=== PATIENT | female | born 1955 | race Caucasian/White ===

== ENCOUNTER 2021-01-28 13:59 | Emergency (ER) | payer MEDICARE, SELFPAY ==
[2021-01-28 14:05] VITALS: BP 117/80; PULSE 58; RESP 16; TEMP 36.4; O2SAT 97; BMI 34.2
--- NOTE | 2021-01-28 14:19 | CT_ITS ---
STUDY: CT BRAIN WITHOUT CONTRAST REASON FOR EXAM: Female, 65 years old. Injury/Pain RADIATION DOSAGE (If Supplied By Facility): CTDIvol = ( 44.99 ) mGy, DLP = ( 796.11 ) mGycm TECHNIQUE: Transaxial CT imaging of the brain was performed without administration of intravenous contrast material. Individualized dose optimization techniques were used for this CT. COMPARISON: No relevant priors. FINDINGS: Normal soft tissue structures. No destructive bony process. Normal size ventricles and extra-axial spaces for the patient''s age. Normal white matter tracts of the cerebral hemispheres. Normal basal ganglia and thalami. Normal brainstem. Normal cerebellum. There is no intracranial hemorrhage. There are no findings of an acute ischemic infarction. Normal visualized paranasal sinuses. CT/Brain/Head without Contrast IMPRESSION: No acute intracranial hemorrhage or mass effect. Electronically Signed: Shakir Cristina MD (Brooks) at 15:17 EDT , Service support ,
--- NOTE | 2021-01-28 14:20 | RAD_ITS ---
STUDY: X-RAY - RIGHT KNEE REASON FOR EXAM: Female, 65 years old. Right knee pain after falling this morning TECHNIQUE: 4 view(s) of the knee. COMPARISON: None. FINDINGS: Normal visualized distal femur. Normal visualized proximal tibia and fibula. Normal proximal tibiofibular articulation. Normal medial femorotibial compartment. Normal lateral femorotibial compartment. Normal patellofemoral articulation. There is no demonstrated joint effusion. There are atherosclerotic calcifications. RAD/Knee 4 or More Views IMPRESSION: No fracture or malalignment. Small joint effusion. Electronically Signed: Shakir Cristina MD (Bro[facility]) at 14:54 EDT , Service support ,
--- NOTE | 2021-01-28 14:21 | EDS_ITS ---
HPI HPI - Fall History of Present Illness Chief Complaint: Fall Informant: patient Occured/Mechanism Occurred: Today Mechanism/Context: Yes slip Fall down steps #: 5 Pain/Injury Location: Right knee, right ankle Pain Location: neck Quality of Pain: Sharp Worsened by: Weightbearing, ambulation Relieved by: Rest Associated Symptoms Associated Symptoms: Negative for Parasthesias, Weakness, Inability to ambulate and Loss of consciousness Narrative Narrative: Patient presents after a fall that occurred today. Patient states she slipped on approximately 5 carpeted steps. Patient did hit her head. Patient denies any loss of consciousness. Patient states her worst pain is in her right knee and right ankle. Patient does admit to some mild neck pain. Patient describes her pain as sharp. Patient states pain is worse with standing and weightbearing. Patient states it is better with rest. Patient denies any paresthesias or weakness. Patient denies any other injuries. [facility] Medical History Diabetes mellitus HTN (hypertension) Myocardial infarct Home Medications clopidogrel 75 mg PO DAILY 01/28/21 [History Last Taken Unknown] lorazepam [Ativan] 1 mg PO QHS 01/28/21 [History Last Taken Unknown] magnesium gluconate 250 mg PO DAILY 01/28/21 [History Last Taken Unknown] metformin 500 mg PO BID 01/28/21 [History Last Taken Unknown] ranolazine 1,000 mg PO BID 01/28/21 [History Last Taken Unknown] Allergy/AdvReac Type Severity Reaction Status Date / Time aspirin Allergy Rash Verified 01/28/21 14:05 canagliflozin [From Invokana] Allergy Anaphylaxis Verified 01/28/21 14:05 niacin Allergy Rash Verified 01/28/21 14:05 Penicillins [PCN] Allergy Hives Verified 01/28/21 14:05 Sulfa (Sulfonamide Allergy Hives Verified 01/28/21 14:05 Antibiotics) acetaminophen AdvReac Upset Verified 01/28/21 14:05 [From Darvocet-N] Stomach erythromycin base AdvReac Other Verified 01/28/21 14:05 [From Staticin] ethyl alcohol [From Staticin] AdvReac Other Verified 01/28/21 14:05 gemfibrozil [From Lopid] AdvReac Other Verified 01/28/21 14:05 ibuprofen AdvReac Upset Verified 01/28/21 14:05 Stomach levofloxacin [From Levaquin] AdvReac Upset Verified 01/28/21 14:05 Stomach propoxyphene AdvReac Upset Verified 01/28/21 14:05 [From Darvocet-N] Stomach tramadol AdvReac Other Verified 01/28/21 14:05 Surgical History Hx of CABG Stented coronary artery Social History Smoking Status: Former smoker ROS ROS ED Constitutional Constitutional ED: Denies chills or fever(s) Eyes Eyes: Denies blurry vision or change in vision ENT ENT ED: Denies rhinorrhea or sore throat Cardiovascular Cardiovascular: Denies chest pain or palpitations Respiratory/Chest Respiratory/Chest: Denies cough or dyspnea Gastrointestinal Gastrointestinal: Denies nausea or vomiting Genitourinary Genitourinary ED: Denies dysuria or hematuria Musculoskeletal Musculoskeletal: Reports neck pain; Denies back pain Integumentary Reports rash; Denies abscess Neurologic Neurologic: Denies headache(s) or weakness Allergic/Immunologic Allergic/Immunologic ED: Denies mouth swelling or urticaria EXAM Physical Exam Const Vital Signs: 01/28/21 14:05 01/28/21 14:15 Temperature 97.5 F L Temperature Source Temporal Pulse Rate 58 L Respiratory Rate 16 Respiratory Effort Normal Non-Labored Respiratory Depth Normal Respiratory Pattern Normal Blood Pressure 117/80 Blood Pressure Mean 92 Pulse Ox 97 Oxygen Delivery Method Room Air Positive well nourished, well developed and obese General Appearance ED: well developed Nutritional Appearance: obese HEENT Reports normocephalic atraumatic Neck full ROM Resp normal respiratory effort and clear to auscultation bilaterally Cardio regular rate and regular rhythm GI non-tender Palpation: soft Extremity Extremity Narrative: There is tenderness over the right knee and right ankle. There is no bony crepitance or step-off. There is no deformity noted. Range of motion was limited in all motions of the right knee and right ankle secondary to pain. Strength is 5/5 in the lower extremities bilaterally. There are no sen chico deficits noted. Pedal pulses are equal bilaterally. Neuro oriented x3, CN's II-XII intact bilaterally, moves all extremities, no focal motor deficits and no sensory deficits noted Sensorium / Orientation: alert Psych mental status grossly normal MDM MDM MDM Narrative Medical decision making narrative: CT scan of the brain was obtained. There is no acute intracranial abnormality. This was interpreted by the radiologist and reviewed by myself. X-rays of the right ankle were obtained. There are 3 views. On my interpretation, there is no acute fracture. There is no dislocation. There is no soft tissue swelling. Radiologist also interpreted the x-rays and agrees. X-rays of the right knee were obtained. There are 4 views. On my interpretation, there is no acute fracture. There is no dislocation. There is a small joint effusion. Radiologist also interpreted the x-rays and agrees. Patient was advised of her findings. Patient was instructed to continue using ice to the areas. Patient was instructed to take Tylenol or ibuprofen as needed for pain. Patient was instructed to use a walker to help with ambulation. Patient states she has one at home. Patient was instructed to follow-up with her primary care physician in 5 to 7 days. Patient understood and was agreeable with the plan. All questions were answered. Radiography Diagnostic Testing: Radiology Impression Brain CT 01/28/21 14:19 IMPRESSION: No acute intracranial hemorrhage or mass effect. Electronically Signed: Shakir Cristina MD ([place]) at 15:17 EDT , Service support , Knee X-Ray 01/28/21 14:20 IMPRESSION: No fracture or malalignment. Small joint effusion. Electronically Signed: Shakir Cristina MD ([place]) at 14:54 EDT , Service support , Ankle X-Ray 01/28/21 14:31 IMPRESSION: No fracture or malalignment. Electronically Signed: Shakir Cristina MD ([place]) at 14:53 EDT , Service support , Discharge Plan Triage Chief Complaint: Fall ED Provider: Dima Henriquez Dx/Rx/DC Orders Clinical Impression: Contusion of right knee, initial encounter, Right ankle sprain, Closed head injury Instructions: ED Soft Tissue Contusion, ED Ankle Sprain (Adult), ED Head Injury (Adult) Prescriptions: No Action clopidogrel 75 mg tablet 75 mg PO DAILY RF: 0 magnesium gluconate 12.5 mg magne- sium (250 mg) Tablet 250 mg PO DAILY RF: 0 lorazepam [Ativan] 1 mg Tablet 1 mg PO QHS RF: 0 metformin 500 mg Tablet,Er Mitali.Retention 24 Hr 500 mg PO BID RF: 0 ranolazine 1,000 mg Tablet Extended Release 12 Hr 1,000 mg PO BID RF: 0 Primary Care Provider: Carlos Clarke Referrals: Carlos Clarke MD [Primary Care Provider] - 5-7 Days Disposition Disposition: Home, Self Care
--- NOTE | 2021-01-28 14:31 | RAD_ITS ---
STUDY: X-RAY - RIGHT ANKLE REASON FOR EXAM: Female, 65 years old. Right ankle pain after falling this morning TECHNIQUE: 3 view(s) of the ankle. COMPARISON: None. FINDINGS: Normal visualized distal tibia and fibula. Normal medial and lateral malleoli. Normal tibiotalar articulation and ankle mortise. Normal visualized talus and calcaneus. The visualized subtalar, talonavicular, calcaneocuboid and tarsal articulations are normal. The soft tissue structures are unremarkable. RAD/Ankle min 3 Views IMPRESSION: No fracture or malalignment. Electronically Signed: Shakir Cristina MD ([place]) at 14:53 EDT , Service support ,
[2021-01-28 16:05] VITALS: BP 133/68; PULSE 65; RESP 18; O2SAT 98
== END 2021-01-28 16:07 | disposition home or self-care (01) ==
PROVIDERS: Emergency Provider Emergency Medicine; PCP Family Medicine
DX: S80.01XA Contusion of right knee, initial encounter (principal); S93.401A Sprain of unspecified ligament of right ankle, initial encounter; S09.90XA Unspecified injury of head, initial encounter; W10.9XXA Fall (on) (from) unspecified stairs and steps, initial encounter; Y93.9 Activity, unspecified; Y92.9 Unspecified place or not applicable; E66.9 Obesity, unspecified; Z68.34 Body mass index [BMI] 34.0-34.9, adult; I10 Essential (primary) hypertension; E11.9 Type 2 diabetes mellitus without complications; I25.2 Old myocardial infarction; Z79.84 Long term (current) use of oral hypoglycemic drugs; Z79.899 Other long term (current) drug therapy; Z87.891 Personal history of nicotine dependence
CPT/HCPCS: 70450; 73564; 73610; 99282

== ENCOUNTER 2021-03-24 11:12 | Emergency (ER) | payer MEDICARE, SELFPAY ==
[2021-03-24] VITALS (7 sets, daily range): BP systolic 115–162; BP diastolic 65–112; PULSE 49–77; RESP 12–18; TEMP 36.9–37.4; O2SAT 95–98; BMI 33.9
--- NOTE | 2021-03-24 11:40 | EKG12_ITS ---
Test Reason : CHEST PRESSURE Blood Pressure : / mmHG Vent. Rate : 059 BPM Atrial Rate : 059 BPM P-R Int : 160 ms QRS Dur : 100 ms QT Int : 470 ms P-R-T Axes : 057 028 000 degrees QTc Int : 465 ms Sinus bradycardia Nonspecific ST and T wave abnormality Abnormal ECG Confirmed by VALERIA SON, ZEV ([id number]), newspaper photo editor BARRY LOU ([id number]) on 03/27/2021 12:43:23 PM Referred By: PL/SHARI Confirmed By:DEA SHAW MD
[2021-03-24 11:56] LABS: Absolute Lymphocyte Count 1.59 X10^3/uL (0.83-4.51); Basophil# 0.02 X10^3/uL; Basophil% 0.3 % (0-1); Eosinophil# 0.07 X10^3/uL; Hematocrit 42.3 % (37-47); Hemoglobin 13.7 g/dL (12.0-15.0); Lymphocyte # 1.59 X10^3/ul (0.83-4.51); Lymphocyte % 21.7 % (19-41); Mean Corp Hgb Conc 32.4 g/dL (32-36); Mean Corpuscular Hgb 29.6 pg (27.0-32.0); Mean Corpuscular Volume 91.4 fL (81-99); Mean Platelet Vol. 11.3 fl (6.2-12.0); Monocyte# 0.64 X10^3/uL; Monocyte% 8.7 % (0-10); NRBC Flagged by Analyzer 0 % (0-5); Neutrophil # 4.99 X10^3/uL (2.7-7.7); Neutrophil % 67.9 % (47-70); Platelet Count 240 K/mm3 (150-450); RBC Distribution Width CV 13.4 % (11.6-14.6); RBC Distribution Width SD 45.3 fl (35.1-43.9); Red Blood Count 4.63 M/mm3 (4.2-5.4); White Blood Count 7.3 K/mm3 (4.4-11.0)
[2021-03-24] MEDS: Acetaminophen 325 MG Tablet 650 MG PO (12:06)
--- NOTE | 2021-03-24 12:08 | RAD_ITS ---
STUDY: X-RAY CHEST REASON FOR EXAM: Female, 66 years old. chest pain TECHNIQUE: Single AP portable view of the chest. COMPARISON: None. FINDINGS: Status post median sternotomy. The lungs are clear and expanded. There is no demonstrated pleural abnormality. There is moderate cardiac enlargement. Normal mediastinum and chago. Normal visualized pulmonary arteries. Normal visualized aortic arch and descending thoracic aorta. Normal visualized thoracic spine. Normal visualized ribs, clavicles, and shoulders. There is no demonstrated abnormality of the visualized soft tissue structures of the upper abdomen. RAD/Chest 1 View (Portable) IMPRESSION: No active disease. Electronically Signed: Tay Bhatt MD at 12:19 EDT Tel , Service support ,
[2021-03-24 12:15] LABS: AST(SGOT) 9 U/L (15-37); Alanine Aminotransfer ALT/SGPT 23 U/L (13-56); Albumin, Serum 3.7 g/dL (3.2-5.0); Alkaline Phosphatase 77 U/L (45-117); Anion Gap 6 (5-15); BUN 10 mg/dL (7-18); BUN/Creat Ratio 10.2 RATIO (10-20); Chloride 103 mmol/L (98-107); Creatinine, Serum 0.98 mg/dL (0.55-1.02); EST Glomerular Filtration Rate 60 mL/min (>60); Est Glom Filt Rate - Afr Amer 73 mL/min (>60); Estimated Creatinine Clearance 50.13 ml/min; Globulin 3.7 g/dL (2.2-4.2); Glucose 267 mg/dL (74-106); Lipase 83 U/L (73-393); Potassium 3.8 mmol/L (3.5-5.1); Protein, Total 7.4 g/dL (6.4-8.2); Sodium Level 139 mmol/L (136-145); Troponin-I HS 7 pg/mL (3.0-54.0)
--- NOTE | 2021-03-24 12:19 | EDS_ITS ---
HPI History of Present Illness Chief Complaint: General Illness Informant: patient Narrative Narrative: Patient is a 66-year-old female presenting with chest pressure. She states she started having sore throat, headache and nasal congestion 2 days ago. Last night she developed pressure in his chest and when she woke up this morning it was still there. She spoke to nurse on-call who recommend she come to the ER to be evaluated further. Patient know she is chronically short of breath and this is unchanged. She denies any radiation of her chest discomfort. She has had a dry cough for the past 3 days. She also had runny nose and left ear drainage. She had a fever up to 101. Her boyfriend had similar symptoms. She has had nausea with abdominal cramping and diarrhea. No black or blood in her stool. No vomiting. No rash. Has had urinary frequency but is also increased her fluid intake. Patient has had her Covid vaccine. Initially her symptoms improved with Tylenol and rest. No other complaints at this time. Did take Plavix this morning. States she is allergic to aspirin. [facility] Medical History Diabetes mellitus HTN (hypertension) Myocardial infarct Home Medications clopidogrel 75 mg PO DAILY 01/28/21 [History Last Taken Unknown] lorazepam [Ativan] 1 mg PO QHS 01/28/21 [History Last Taken Unknown] magnesium gluconate 250 mg PO DAILY 01/28/21 [History Last Taken Unknown] metformin 500 mg PO BID 01/28/21 [History Last Taken Unknown] ranolazine 1,000 mg PO BID 01/28/21 [History Last Taken Unknown] nitrofurantoin monohyd/m-cryst [Macrobid] 100 mg PO Q12H 5 Days #10 cap 03/24/21 [Rx Last Taken Unknown] Allergy/AdvReac Type Severity Reaction Status Date / Time aspirin Allergy Rash Verified 03/24/21 11:16 canagliflozin [From Invokana] Allergy Anaphylaxis Verified 03/24/21 11:16 niacin Allergy Rash Verified 03/24/21 11:16 Penicillins [PCN] Allergy Hives Verified 03/24/21 11:16 Sulfa (Sulfonamide Allergy Hives Verified 03/24/21 11:16 Antibiotics) acetaminophen AdvReac Upset Verified 03/24/21 11:16 [From Darvocet-N] Stomach erythromycin base AdvReac Other Verified 03/24/21 11:16 [From Staticin] ethyl alcohol [From Staticin] AdvReac Other Verified 03/24/21 11:16 gemfibrozil [From Lopid] AdvReac Other Verified 03/24/21 11:16 ibuprofen AdvReac Upset Verified 03/24/21 11:16 Stomach levofloxacin [From Levaquin] AdvReac Upset Verified 03/24/21 11:16 Stomach propoxyphene AdvReac Upset Verified 03/24/21 11:16 [From Darvocet-N] Stomach tramadol AdvReac Other Verified 03/24/21 11:16 Surgical History Hx of CABG Stented coronary artery Social History Smoking Status: Former smoker ROS ROS ED Constitutional Constitutional ED: Denies chills or fever(s) Eyes Eyes: Denies change in vision ENT ENT ED: Reports ear pain left and rhinorrhea; Denies sore throat Cardiovascular Cardiovascular: Reports chest pain Respiratory/Chest Respiratory/Chest: Reports cough and dyspnea; Denies sputum Gastrointestinal Gastrointestinal: Reports abdominal pain, diarrhea and nausea; Denies vomiting Genitourinary Genitourinary ED: Reports urinary frequency; Denies dysuria Musculoskeletal Musculoskeletal: Reports myalgias Integumentary Denies rash Neurologic Neurologic: Reports headache(s); Denies weakness Psychiatric Psychiatric: Denies anxiety or depression EXAM Physical Exam Const Vital Signs: 03/24/21 11:13 03/24/21 11:32 03/24/21 12:25 Temperature 98.7 F 99.4 F H 98.9 F Temperature Source Temporal Temporal Oral Pulse Rate 77 59 L 67 Respiratory Rate 18 16 16 Respiratory Effort Normal Respiratory Pattern Normal Blood Pressure 162/72 H 154/82 H 137/71 H Blood Pressure Mean 102 106 93 Pulse Ox 95 97 96 Oxygen Delivery Method Room Air Room Air Room Air 03/24/21 13:03 03/24/21 13:50 03/24/21 14:42 Temperature 98.4 F 98.9 F Temperature Source Temporal Temporal Pulse Rate 54 L 52 L 54 L Respiratory Rate 14 12 12 Respiratory Effort Respiratory Pattern Blood Pressure 154/112 H 144/68 H 132/65 H Blood Pressure Mean 126 93 87 Pulse Ox 98 96 96 Oxygen Delivery Method Room Air Room Air Room Air Positive well nourished and well developed General Appearance ED: well developed HEENT Reports TM's clear and moist mucous membranes Tympanic Membrane ED: Yes TM's clear Eyes PERRL and EOMs intact bilaterally Neck no lymphadenopathy, supple and no JVD Chest Wall inspection of chest normal Resp normal respiratory effort and clear to auscultation bilaterally Effort and Inspection: Negative for retractions Auscultation: Negative for wheezes or diminished lung sounds Cardio regular rate, regular rhythm and no murmurs GI normal to inspection, nondistended, normoactive bowel sounds and non-tender Back/Spine no CVA tenderness Extremity normal to inspection Neuro oriented x3 and CN's II-XII intact bilaterally Sensorium / Orientation: alert Motor Exam: Negative for general weakness Psych mental status grossly normal Skin no rashes or lesions noted and no wounds MDM MDM MDM Narrative Medical decision making narrative: Patient is evaluated for chest pressure since last night. In addition she has had some upper respiratory symptoms for the past few days as well as urinary frequency. Patient appears nontoxic in no acute distress. Initially she is mildly hypertensive however this resolved without any intervention. She has had a Covid vaccine and her Covid test today is negative. Is possible she could have a similar type of viral URI. White blood cell count is normal. Lab work largely unremarkable except for urinalysis which is consistent with UTI with positive nitrates, 500 leukoesterase and 25-50 white blood cells. Urine culture sent and she started on Macrobid as she does have multiple drug allergies. High since he troponin is normal x2. I do not think her chest pressure is cardiac in nature. She is not tachycardic or hypoxic I have a low suspicion for PE. Patient is counseled on signs and symptoms requiring return to the emergency room. Patient verbalizes agreement and understand this plan. Patient discharged home in stable and improved condition. Lab Data Attestation: I reviewed the patient's lab results. Labs: Laboratory Results - last 24 hr 03/24/21 03/24/21 03/24/21 11:44 11:44 12:25 WBC 7.3 RBC 4.63 Hgb 13.7 Hct 42.3 MCV 91.4 MCH 29.6 MCHC 32.4 RDW Std Deviation 45.3 H RDW Coeff of Nancy 13.4 Plt Count 240 MPV 11.3 Immature Gran % (Auto) 0.400 Neut % (Auto) 67.9 Lymph % (Auto) 21.7 [place] % (Auto) 8.7 Eos % (Auto) 1.0 Baso % (Auto) 0.3 Absolute Neuts (auto) 5.0 Absolute Lymphs (auto) 1.59 Nucleated RBC % 0 Sodium 139 Potassium 3.8 Chloride 103 Carbon Dioxide 30.0 Anion Gap 6 BUN 10 Creatinine 0.98 Estim Creat Clear Calc 50.13 Est GFR (MDRD) Af Amer 73 Est GFR (MDRD) Non-Af 60 BUN/Creatinine Ratio 10.2 Glucose 267 H Calcium 9.0 Total Bilirubin 0.40 AST 9 L ALT 23 Alkaline Phosphatase 77 Troponin I High Sens 7 Total Protein 7.4 Albumin 3.7 Globulin 3.7 Albumin/Globulin Ratio 1.0 Lipase 83 Urine Color Yellow Urine Clarity Sl. Cloudy Urine pH 5.0 Ur Specific Bonham 1.015 Urine Protein 15 H Urine Glucose (UA) 1000 H Urine Ketones Negative Urine Occult Blood 25 H Urine Nitrite Positive H Urine Bilirubin Negative Urine Urobilinogen Normal Ur Leukocyte Esterase 500 H Urine RBC 0-5 SEEN Urine WBC 25-50 SEEN Ur Squamous Epith Cells 0-5 SEEN Urine Bacteria 2+ Urine Mucus 0 SEEN 03/24/21 13:47 WBC RBC Hgb Hct MCV MCH MCHC RDW Std Deviation RDW Coeff of Nancy Plt Count MPV Immature Gran % (Auto) Neut % (Auto) Lymph % (Auto) [place] % (Auto) Eos % (Auto) Baso % (Auto) Absolute Neuts (auto) Absolute Lymphs (auto) Nucleated RBC % Sodium Potassium Chloride Carbon Dioxide Anion Gap BUN Creatinine Estim Creat Clear Calc Est GFR (MDRD) Af Amer Est GFR (MDRD) Non-Af BUN/Creatinine Ratio Glucose Calcium Total Bilirubin AST ALT Alkaline Phosphatase Troponin I High Sens 7 Total Protein Albumin Globulin Albumin/Globulin Ratio Lipase Urine Color Urine Clarity Urine pH Ur Specific [place] Urine Protein Urine Glucose (UA) Urine Ketones Urine Occult Blood Urine Nitrite Urine Bilirubin Urine Urobilinogen Ur Leukocyte Esterase Urine RBC Urine WBC Ur Squamous Epith Cells Urine Bacteria Urine Mucus Radiography Chest X-Ray - ED: 1 View, Read by ED Physician, Read by Radiologist and No Acute Disease Diagnostic Testing: Clinical Impression(s) from Imaging Studies Chest X-Ray 03/24/21 12:08 IMPRESSION: No active disease. Electronically Signed: Tay Bhatt MD at 12:19 EDT Tel , Service support , Discharge Plan Triage Chief Complaint: General Illness ED Provider: Dorothea Marin Dx/Rx/DC Orders Clinical Impression: URI (upper respiratory infection), Chest pressure, Acute UTI Instructions: ED Chest Pain, Noncardiac, ED CYSTITIS Female Adult, ED URI, Viral, No Abx (Adult) Prescriptions: New nitrofurantoin monohyd/m-cryst [Macrobid] 100 mg capsule 100 mg PO Q12H 5 Days Qty: 10 RF: 0 No Action clopidogrel 75 mg tablet 75 mg PO DAILY RF: 0 magnesium gluconate 12.5 mg magne- sium (250 mg) Tablet 250 mg PO DAILY RF: 0 lorazepam [Ativan] 1 mg Tablet 1 mg PO QHS RF: 0 metformin 500 mg Tablet,Er Mitali.Retention 24 Hr 500 mg PO BID RF: 0 ranolazine 1,000 mg Tablet Extended Release 12 Hr 1,000 mg PO BID RF: 0 Primary Care Provider: Carlos Clarke Referrals: Carlos Clarke MD [Primary Care Provider] - Disposition Disposition: Home, Self Care
[2021-03-24 12:33] LABS: Mucous, Urine 0 SEEN /hpf (<or=2+)
[2021-03-24 12:36] LABS: Color, Urine Yellow (Yellow); Glucose, Dipstick 1000 mg/dl (Normal); Ketone-Dipstick Negative (Negative); Leukocyte Esterase-Dipstick 500 /ul (Negative); Nitrite-Dipstick Positive (Negative); Occult Blood-Urine 25 /ul (Negative); Protein-Dipstick 15 mg/dl (Negative); Specific Gravity, Urine 1.015 (1.002-1.030); Urine Bilirubin Dipstick Negative (Negative); Urine Clarity Sl. Cloudy (Clear); Urine Urobilinogen Normal (Normal)
[2021-03-24 12:43] LABS: Bacteria 2+ /hpf (None Seen); Red Blood Cells-Urine 0-5 SEEN /hpf (0-5); Squamous Epithelial Cells - UA 0-5 SEEN /hpf (5-10); White Blood Cells 25-50 SEEN /hpf (0-5)
[2021-03-24 14:08] LABS: Troponin-I HS 7 pg/mL (3.0-54.0)
== END 2021-03-24 15:19 | disposition home or self-care (01) ==
PROVIDERS: Emergency Provider Emergency Medicine; PCP Family Medicine
DX: J06.9 Acute upper respiratory infection, unspecified (principal); R07.89 Other chest pain; N39.0 Urinary tract infection, site not specified; I10 Essential (primary) hypertension; I25.2 Old myocardial infarction; E11.9 Type 2 diabetes mellitus without complications; Z79.84 Long term (current) use of oral hypoglycemic drugs; Z79.02 Long term (current) use of antithrombotics/antiplatelets; Z79.899 Other long term (current) drug therapy; Z87.891 Personal history of nicotine dependence
CPT/HCPCS: 36415; 71045; 80053; 81001; 83690; 84484; 85025; 87086; 87088; 87186; 87426; 93005; 99285; A4216

== ENCOUNTER → 2021-05-22 05:45 | Outpatient (CLI) | payer MEDICARE, MEDICAID, SELFPAY ==
--- NOTE | 2021-05-22 06:00 | ECHOCS_ITS ---
Version 2 Reason For Study: s/p CABG Procedure This was a 2D Doppler, Color Flow transthoracic echocardiogram. Contrast injection was performed. Exam performed in department. Left Ventricle Normal LV size. Left ventricular systolic function is normal. The estimated ejection fraction is 60 %. Stage 1 diastolic dysfunction. No regional wall motion abnormalities noted. Right Ventricle Normal RV size. Normal systolic function. Atria Normal left atrium. Normal right atrium. Mitral Valve Normal mitral valve. Tricuspid Valve Normal tricuspid valve. Mild (1+) tricuspid valve insufficiency. Pulmonary artery systolic pressure is 40 mmHg. Aortic Valve The aortic valve is not well visualized. Pulmonic Valve The pulmonic valve is not well visualized. Great Vessels Normal aortic root. The pulmonary artery is normal size. Normal inferior vena cava. Pericardium/Pleural No pericardial effusion. Medication Diluted definity 3ml given slow IV push to enhance endocardial definition. MMode/2D Measurements & Calculations LVIDd: 4.8 cm IVSd: 1.1 cm LVOT diam: 1.9 cm LVIDs: 2.9 cm LVPWd: 0.98 cm RVDd: 3.6 cm FS: 38.9 % LVOT area: 3.0 cm2 Ao root diam: 2.9 cm LAV(MOD-bp): 51.4 ml LVAd ap4: 33.3 cm2 LAV(MOD-bp) Indexed: 26.2 ml/m2 LVLd ap4: 7.9 cm LAV(MOD-sp2): 53.7 ml EDV(MOD-sp4): 118.7 ml LAV(MOD-sp4): 47.8 ml EDV(sp4-el): 118.9 ml LVAs ap4: 19.9 cm2 LVLs ap4: 7.2 cm ESV(MOD-sp4): 48.1 ml ESV(sp4-el): 46.8 ml EF(MOD-sp4): 59.5 % EF(sp4-el): 60.7 % SV(MOD-sp4): 70.6 ml SV(sp4-el): 72.1 ml LA A4 area: 18.1 cm2 LA dimension(2D): 4.0 cm RA A4 area: 18.4 cm2 Doppler Measurements & Calculations MV E max juan jose: 93.6 cm/sec Lat Peak E' Juan Jose: 8.1 cm/sec Med Peak E' Juan Jose: 4.5 cm/sec MV A max juan jose: 96.3 cm/sec E/E' lat: 11.6 E/E' med: 21.0 MV E/A: 0.97 Ao V2 max: 229.5 cm/sec LV V1 max: 172.3 cm/sec SV(LVOT): 109.7 ml Ao max P.1 mmHg LV V1 max P.9 mmHg Ao V2 mean: 134.2 cm/sec LV V1 mean P.1 mmHg Ao mean P.6 mmHg LV V1 mean: 103.5 cm/sec Ao V2 VTI: 48.1 cm LV V1 VTI: 37.0 cm ROBERT(I,D): 2.3 cm2 ROBERT(V,D): 2.2 cm2 PA V2 max: 100.4 cm/sec TR max juan jose: 284.6 cm/sec TR max P.4 mmHg ECHO/Echo Complete W/ Contrast Interpretation Summary Normal LV size. Left ventricular systolic function is normal. The estimated ejection fraction is 60 %. Stage 1 diastolic dysfunction. Contrast injection was performed. Ordering Physician: Larry Osorio Referring Physician: Carlos Clarke Performed By: Michelle Packer, DENISHA, RVT
--- NOTE | 2021-05-22 12:31 | STRESSREP_ITS ---
Stress Test Report Pharmacologic myocardial perfusion stress test. 66-year-old lady with a history of coronary bypass surgery. Stress protocol: Resting EKG demonstrates sinus bradycardia with a rate of 47 bpm normal intervals are noted resting blood pressure is 122/70 mmHg. 0.4 mg of regadenoson was infused per usual protocol followed by rapid intravenous saline flush injection continuous EKG monitoring was performed. The patient attained a maximum heart rate of 70 bpm which was 45% of max impact at heart rate the maximum workload was 1 metabolic equivalent. At rest there were no ST or T wave changes noted to suggest abnormal flow reserve and at peak infusion nonspecific ST changes were noted with did not meet the criteria for ischemia. No clinical angina was noted. The final blood pressure was 122/66 with a peak blood pressure 130/64 mmHg. Myocardial perfusion protocol. 11.9 mCi of technetium 99m sestamibi was injected at rest. 0.4 mg of r egadenoson was then infused. At peak infusion 33.7 mCi of technetium 99m sestamibi was injected. Stress images were obtained stress and rest images were reconstructed and compared in the short axis vertical long horizontal long axis. Gated images were also obtained Perfusion SPECT analysis: Review of the stress images demonstrate normal uptake of tracer noted in all areas of the myocardium. The resting images smooth demonstrate normal uptake of tracer noted in all areas of the myocardium. No areas of reversibility were noted to suggest ischemia and no previous infarct was noted. Gated SPECT analysis: The gated ejection fraction is 70%. Conclusion: Normal pharmacologic myocardial perfusion stress test. Preserved ejection fraction.
== END ==
PROVIDERS: PCP Family Medicine; Referring Provider Internal Medicine Cardiovascular Disease; Visit Provider Internal Medicine Cardiovascular Disease
DX: I25.810 Atherosclerosis of coronary artery bypass graft(s) without angina pectoris (principal); Z95.1 Presence of aortocoronary bypass graft
CPT/HCPCS: 78452; 93017; 93306; A9500; Q9957; A4216; C8929; J2785

== ENCOUNTER → 2021-06-13 08:26 | Outpatient (CLI) | payer MEDICARE, SELFPAY ==
--- NOTE | 2021-06-13 08:55 | RAD_ITS ---
STUDY: X-RAY CHEST REASON FOR EXAM: Female, 66 years old. CHEST PAIN BRONCHITIS TECHNIQUE: XR Chest 2 Views COMPARISON: 03.24.21 FINDINGS: There are lower lobe bilateral infiltrates. There are multiple median sternotomy wires. There is borderline cardiomegaly. Normal mediastinum and chago. Normal visualized pulmonary arteries. There is atherosclerotic calcification of the aortic arch with tortuosity. There are diffuse degenerative changes of the visualized thoracic spine. There is degenerative osteoarthritis of the bilateral shoulders. There is no demonstrated abnormality of the visualized soft tissue structures of the upper abdomen. RAD/Chest PA and Lateral IMPRESSION: There are lower lobe bilateral infiltrates. Electronically Signed: Sen Griffin MD at 14:36 EST , Service support ,
== END ==
PROVIDERS: PCP Family Medicine; Referring Provider Family Medicine; Visit Provider Family Medicine
DX: J20.9 Acute bronchitis, unspecified (principal)
CPT/HCPCS: 71046

== ENCOUNTER 2021-10-23 13:35 | Emergency (ER) | payer MEDICARE, MEDICAID, SELFPAY ==
[2021-10-23 13:36] VITALS: BP 189/65; PULSE 43; RESP 16; TEMP 36.7; O2SAT 99
[2021-10-23 13:40] VITALS: BP 189/65; PULSE 44; RESP 14; TEMP 36.7; O2SAT 99; BMI 33.0
--- NOTE | 2021-10-23 14:10 | EDS_ITS ---
HPI History of Present Illness Chief Complaint: Chest Pain Informant: patient Onset/Context/Timing Onset: Today Timing: Continuous Quality: Positive for Heaviness and Stabbing Location: Substernal Worsened By: Nothing Relieved By: Nothing Associated Symptoms: Positive for Diaphoresis, Dyspnea, Lightheadedness, Acid Reflux and Palpitations; Negative for Nausea, Vomiting, Cough and Fever Narrative Narrative: Patient presents with chest pain that began today. Patient states she was moving some boxes while gardening when her pain came on. Patient states it has been constant. Patient states she took 2 nitroglycerin tablets prior to arrival. Patient states this slightly improved her pain. Patient states the stabbing pain is now gone but she still has some heaviness in her chest. Patient states nothing makes it worse. Patient admits to some shortness of breath. Patient states she did break out of this but when the pain began. Patient denies any nausea or vomiting but admits to some lightheadedness and palpitations. 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 Essential hypertension GERD (gastroesophageal reflux disease) Hyperhomocystinemia Hyperlipidemia Iron deficiency anemia Lymphedema Narcolepsy Obesity Obstructive sleep apnea Peripheral neuropathy Proliferative diabetic retinopathy Restless legs syndrome (RLS) Type 2 diabetes mellitus Home Medications lorazepam [Ativan] 1 mg PO QHS 01/28/21 [History Last Taken Unknown] magnesium gluconate 250 mg PO DAILY 01/28/21 [History Last Taken Unknown] metformin 500 mg PO BID 01/28/21 [History Last Taken Unknown] citalopram 40 mg tablet 40 mg PO DAILY tab 05/05/21 [History Last Taken Unknown] clopidogrel 75 mg tablet 75 mg PO DAILY #90 tab 05/05/21 [Rx Last Taken Unknown] pregabalin 75 mg capsule 75 mg PO TID cap 05/05/21 [History Last Taken Unknown] ranolazine 1,000 mg tablet,extended release,12 hr 1,000 mg PO BID #180 tab 05/05/21 [Rx Last Taken Unknown] Allergy/AdvReac Type Severity Reaction Status Date / Time aspirin Allergy Rash Verified 05/05/21 11:03 canagliflozin [From Invokana] Allergy Anaphylaxis Verified 05/05/21 11:03 niacin Allergy Rash Verified 05/05/21 11:03 Penicillins [PCN] Allergy Hives Verified 05/05/21 11:03 Sulfa (Sulfonamide Allergy Hives Verified 05/05/21 11:03 Antibiotics) acetaminophen AdvReac Upset Verified 05/05/21 11:03 [From Darvocet-N] Stomach erythromycin base AdvReac Other Verified 05/05/21 11:03 [From Staticin] ethyl alcohol [From Staticin] AdvReac Other Verified 05/05/21 11:03 gemfibrozil [From Lopid] AdvReac Other Verified 05/05/21 11:03 ibuprofen AdvReac Upset Verified 05/05/21 11:03 Stomach levofloxacin [From Levaquin] AdvReac Upset Verified 05/05/21 11:03 Stomach lisinopril AdvReac cough Verified 05/05/21 11:17 losartan AdvReac cough Verified 05/05/21 11:17 propoxyphene AdvReac Upset Verified 05/05/21 11:03 [From Darvocet-N] Stomach spironolactone AdvReac hyperkalemi Verified 05/05/21 11:03 a Tbosfwf-UVI-FgD Reductase AdvReac unknown Verified 05/05/21 11:03 Inhibitor [Izchrty-Npw-Vsr Reductase Inhibitor] tramadol AdvReac Other Verified 05/05/21 11:03 Family History Mother Heart disease Father Heart disease Diabetes Surgical History H/O coronary artery bypass surgery (10/2001) History of cataract surgery History of cholecystectomy History of colonoscopy with polypectomy History of coronary artery stent placement (08/29/17) History of hysterectomy History of left heart catheterization History of tonsillectomy History of tonsillectomy and adenoidectomy Social History Smoking Status: Former smoker ROS ROS ED Constitutional Constitutional ED: Denies chills or fever(s) Eyes Eyes: Denies blurry vision or change in vision ENT ENT ED: Reports rhinorrhea; Denies sore throat Cardiovascular Cardiovascular: Reports as per HPI, chest pain and palpitations Respiratory/Chest Respiratory/Chest: Reports dyspnea; Denies cough Gastrointestinal Gastrointestinal: Denies abdominal pain, nausea or vomiting Genitourinary Genitourinary ED: Denies dysuria or hematuria Musculoskeletal Musculoskeletal: Reports back pain; Denies neck pain Integumentary Denies abscess or rash Neurologic Neurologic: Reports headache(s); Denies weakness Allergic/Immunologic Allergic/Immunologic ED: Denies mouth swelling or urticaria EXAM Physical Exam Const Vital Signs: 10/23/21 13:36 10/23/21 13:40 10/23/21 14:18 Temperature 98.0 F 98.0 F Temperature Source Oral Oral Pulse Rate 43 L 44 L Respiratory Rate 16 14 Respiratory Effort Short of Breath Blood Pressure 189/65 H 189/65 H Blood Pressure Mean 106 106 Pulse Ox 99 99 Oxygen Delivery Method Room Air Room Air Room Air 10/23/21 14:35 10/23/21 16:05 10/23/21 16:53 Temperature Temperature Source Pulse Rate 44 L 43 L 41 L Respiratory Rate 14 15 Respiratory Effort Blood Pressure 125/67 H 132/79 H 130/65 H Blood Pressure Mean 96 86 Pulse Ox 96 97 Oxygen Delivery Method Room Air Room Air Positive well nourished, well developed and obese General Appearance ED: well developed and NAD Nutritional Appearance: obese HEENT normocephalic and atraumatic Eyes PERRL and EOMs intact bilaterally Neck supple and no JVD Chest Wall Chest: tenderness sternum Resp normal respiratory effort and clear to auscultation bilaterally Effort and Inspection: Negative for respiratory distress Cardio regular rate, regular rhythm and no murmurs GI normal to inspection, nondistended, normoactive bowel sounds, soft to palpation, non-tender and non-distended Extremity normal to inspection General Extremety ED: Negative for edema or tenderness General Extremity: Negative for edema Neuro oriented x3, CN's II-XII intact bilaterally and no sensory deficits noted Sensorium / Orientation: awake and alert Motor Exam: strength 5/5 throughout Psych mental status grossly normal Heart Score History: Moderately Suspicious ECG: Nonspecific Repolarization Age: >/= 65 years Risk Factors: >/= 3 Risk Factors or History of CAD Troponin: </= Normal Limit Score: 6 MDM MDM MDM Narrative Medical decision making narrative: Patient has an allergy to aspirin which causes her to break out into a rash. This was withheld. Patient was given 1 sublingual nitroglycerin. This helped briefly. EKG was obtained. On my interpretation, it showed a sinus bradycardia with a rate of 45. CT interval, QRS interval, and QTc intervals were all normal. [place] was normal. There are nonspecific ST-T wave changes. Portable 1 view chest x-ray was obtained. On my interpretation, lung nunez are clear. There is mild cardiomegaly. Bony thorax is normal. There is no acute process noted. Radiologist also interpreted the x-ray and agrees. CBC and basic metabolic profile were obtained and were within normal limits. Glucose was slightly elevated at 190. Initial high-sensitivity troponin was normal at 4. 2-hour repeat high-sensitivity troponin was normal at 4. Patient had a stress test in May of last year which was normal. In light of the normal recent stress test and 2 normal troponin test here, I feel the patient is safe to be discharged home. Patient was instructed to follow-up with her primary care physician in 3 to 5 days. Patient understood and was agreeable with the plan. All questions were answered. Lab Data Labs: Laboratory Results - last 24 hr 10/23/21 10/23/21 10/23/21 14:15 14:15 16:31 WBC 5.6 RBC 4.11 L Hgb 12.1 Hct 37.5 MCV 91.2 MCH 29.4 MCHC 32.3 RDW Std Deviation 42.9 RDW Coeff of Nancy 12.8 Plt Count 213 MPV 11.0 Immature Gran % (Auto) 0.400 Neut % (Auto) 50.8 Lymph % (Auto) 35.2 [place] % (Auto) 11.8 H Eos % (Auto) 1.4 Baso % (Auto) 0.4 Absolute Neuts (auto) 2.8 Absolute Lymphs (auto) 1.96 Nucleated RBC % 0 Sodium 139 Potassium 4.1 Chloride 106 Carbon Dioxide 30.0 Anion Gap 3 L BUN 9 Creatinine 0.74 Estim Creat Clear Calc 51.11 Est GFR (MDRD) Af Amer 101 Est GFR (MDRD) Non-Af 83 BUN/Creatinine Ratio 12.2 Glucose 190 H Calcium 8.8 Troponin I High Sens 4 4 Radiography Chest X-Ray - ED: 1 View, Read by ED Physician, Read by Radiologist, No Acute Disease and Cardiomegaly Diagnostic Testing: Clinical Impression(s) from Imaging Studies Chest X-Ray 10/23/21 14:17 IMPRESSION: Mild cardiomegaly. The lungs are clear. Electronically Signed: Ever Ling MD at 14:38 EDT , EKG Initial EKG: Attestation: I personally reviewed and interpreted this EKG as follows: Interpretation: Sinus Bradycardia (45) and Non-Specific ST Changes Prior EKG tracings: available for review Prior: Unchanged (03/24/2021) Discharge Plan Triage Chief Complaint: Chest Pain ED Provider: Dima Henriquez Dx/Rx/DC Orders Clinical Impression: Chest pain, H/O coronary artery bypass surgery Instructions: ED Chest Pain, Uncertain Cause Prescriptions: No Action citalopram 40 mg tablet 40 mg PO DAILY RF: 0 pregabalin 75 mg capsule 75 mg PO TID RF: 0 clopidogrel 75 mg tablet 75 mg PO DAILY Qty: 90 RF: 3 ranolazine 1,000 mg tablet extended release 12 hr 1,000 mg PO BID Qty: 180 RF: 3 magnesium gluconate 12.5 mg magne- sium (250 mg) Tablet 250 mg PO DAILY RF: 0 lorazepam [Ativan] 1 mg Tablet 1 mg PO QHS RF: 0 metformin 500 mg Tablet,Er Mitali.Retention 24 Hr 500 mg PO BID RF: 0 Primary Care Provider: Dot Garces Referrals: Dot Garces MD [Primary Care Provider] - 3-5 Days Disposition Disposition: Home, Self Care
--- NOTE | 2021-10-23 14:17 | EKG12_ITS ---
Test Reason : CP Blood Pressure : / mmHG Vent. Rate : 045 BPM Atrial Rate : 045 BPM P-R Int : 174 ms QRS Dur : 098 ms QT Int : 516 ms P-R-T Axes : 061 038 000 degrees QTc Int : 446 ms Sinus bradycardia Nonspecific ST and T wave abnormality Abnormal ECG Confirmed by CORINNE SON, ALIE ([id number]), index editor BARRY LOU ([id number]) on 10/24/2021 1:20:00 PM Referred By: ADRIANO Confirmed By:ALIE SUN MD
--- NOTE | 2021-10-23 14:17 | RAD_ITS ---
STUDY: X-RAY CHEST REASON FOR EXAM: Female, 66 years old. Chest pain TECHNIQUE: Single AP portable view of the chest. COMPARISON: Comparison is made with prior study dated 06/13/2021 FINDINGS: EKG electrodes are seen. The lungs are clear and expanded. There is no demonstrated pleural abnormality. Sternal cerclage wires are present from a prior sternotomy. Mild cardiomegaly. Normal mediastinum and chago. Normal visualized pulmonary arteries. Normal visualized aortic arch and descending thoracic aorta. There are diffuse degenerative changes of the visualized thoracic spine. Normal visualized ribs, clavicles, and shoulders. There is no demonstrated abnormality of the visualized soft tissue structures of the upper abdomen. RAD/Chest 1 View (Portable) IMPRESSION: Mild cardiomegaly. The lungs are clear. Electronically Signed: Ever Ling MD at 14:38 EDT ,
[2021-10-23 14:25] LABS: Absolute Lymphocyte Count 1.96 X10^3/uL (0.83-4.51); Absolute Neutrophil Count 2.8 X10^3/uL (2.0-7.7); Basophil# 0.02 X10^3/uL; Basophil% 0.4 % (0-1); Eosinophil# 0.08 X10^3/uL; Eosinophils% 1.4 % (0-5); Hematocrit 37.5 % (37-47); Hemoglobin 12.1 g/dL (12.0-15.0); Lymphocyte # 1.96 X10^3/ul (0.83-4.51); Lymphocyte % 35.2 % (19-41); Mean Corp Hgb Conc 32.3 g/dL (32-36); Mean Corpuscular Hgb 29.4 pg (27.0-32.0); Mean Corpuscular Volume 91.2 fL (81-99); Monocyte# 0.66 X10^3/uL; Monocyte% 11.8 % (0-10); NRBC Flagged by Analyzer 0 % (0-5); Neutrophil # 2.83 X10^3/uL (2.7-7.7); Neutrophil % 50.8 % (47-70); Platelet Count 213 K/mm3 (150-450); RBC Distribution Width CV 12.8 % (11.6-14.6); RBC Distribution Width SD 42.9 fl (35.1-43.9); Red Blood Count 4.11 M/mm3 (4.2-5.4); White Blood Count 5.6 K/mm3 (4.4-11.0)
[2021-10-23 14:35] VITALS: BP 125/67; PULSE 44
[2021-10-23] MEDS: Nitroglycerin SL (ED/IMG/CATH) 0.4 MG TABLET SL (14:35)
[2021-10-23 14:42] LABS: Anion Gap 3 (5-15); BUN 9 mg/dL (7-18); BUN/Creat Ratio 12.2 RATIO (10-20); Calcium,Total 8.8 mg/dL (8.5-10.1); Chloride 106 mmol/L (98-107); Creatinine, Serum 0.74 mg/dL (0.55-1.02); EST Glomerular Filtration Rate 83 mL/min (>60); Est Glom Filt Rate - Afr Amer 101 mL/min (>60); Estimated Creatinine Clearance 51.11 ml/min; Glucose 190 mg/dL (74-106); Potassium 4.1 mmol/L (3.5-5.1); Sodium Level 139 mmol/L (136-145); Troponin-I HS (w/2H Reflex) 4 pg/mL (3.0-54.0)
[2021-10-23 16:05] VITALS: BP 132/79; PULSE 43; RESP 14; O2SAT 96
[2021-10-23 16:22] LABS: Reflex Troponin-HS? (from REC) Y
[2021-10-23 16:53] VITALS: BP 130/65; PULSE 41; RESP 15; O2SAT 97
[2021-10-23 16:57] LABS: Troponin-I HS 4 pg/mL (3.0-54.0)
== END 2021-10-23 17:25 | disposition home or self-care (01) ==
PROVIDERS: Emergency Provider Emergency Medicine; PCP Internal Medicine; Visit Provider Emergency Medicine
DX: R07.89 Other chest pain (principal); E11.3599 Type 2 diabetes mellitus with proliferative diabetic retinopathy without macular edema, unspecified eye; E11.40 Type 2 diabetes mellitus with diabetic neuropathy, unspecified; F41.9 Anxiety disorder, unspecified; F32.A Depression, unspecified; I25.10 Atherosclerotic heart disease of native coronary artery without angina pectoris; K21.9 Gastro-esophageal reflux disease without esophagitis; I10 Essential (primary) hypertension; E78.5 Hyperlipidemia, unspecified; E66.9 Obesity, unspecified; G47.33 Obstructive sleep apnea (adult) (pediatric); G25.81 Restless legs syndrome; Z79.899 Other long term (current) drug therapy; Z79.02 Long term (current) use of antithrombotics/antiplatelets; Z95.1 Presence of aortocoronary bypass graft; Z87.891 Personal history of nicotine dependence; X50.0XXA Overexertion from strenuous movement or load, initial encounter; Z68.33 Body mass index [BMI] 33.0-33.9, adult; R06.00 Dyspnea, unspecified
CPT/HCPCS: 71045; 80048; 84484; 85025; 93005; 99285; A4216

== ENCOUNTER 2021-12-03 09:24 | Emergency (ER) | payer MEDICARE, MEDICAID, SELFPAY ==
[2021-12-03 09:25] VITALS: BP 183/73; PULSE 60; RESP 16; TEMP 36.1; O2SAT 96; BMI 33.9
--- NOTE | 2021-12-03 10:04 | CT_ITS ---
STUDY: CT CERVICAL SPINE WITHOUT CONTRAST REASON FOR EXAM: Female, 66 years old. Fall backwards. Neck pain. Dizzy. RADIATION DOSAGE (If Supplied By Facility): CTDIvol = ( 25.39 ) mGy, DLP = ( 445.29 ) mGycm TECHNIQUE: High resolution transaxial imaging was performed without contrast material. Sagittal and coronal images were reconstructed. Individualized dose optimization techniques were used for this CT. COMPARISON: None FINDINGS: Normal craniovertebral junction. There are degenerative changes of the anterior atlantoaxial articulation. Normal odontoid process. Normal cervical lordosis. There is multilevel disc space narrowing and facet hypertrophy. C2-3: There is endplate spondylosis. Normal central canal and intervertebral neuroforamina. C3-4: There is a posterior disc osteophyte and facet hypertrophy associated with narrowing of the left intervertebral neuroforamina. C4-5: There is a posterior disc osteophyte. Normal central canal and intervertebral neuroforamina. C5-6: There is a posterior disc osteophyte. Normal central canal and intervertebral neuroforamina. C6-7: There is a posterior disc osteophyte associated with mild stenosis of the central canal. C7-T1: There is endplate spondylosis. Normal central canal and intervertebral neuroforamina. There are vascular calcifications. CT/Spine Cervical without Contras IMPRESSION: Multilevel degenerative changes, as described above. Atherosclerosis. Electronically Signed: Desiree Calzada MD at 11:26 EDT ,
--- NOTE | 2021-12-03 10:04 | CT_ITS ---
STUDY: CT BRAIN WITHOUT CONTRAST REASON FOR EXAM: Female, 66 years old. Fall backwards. Pain middle back, head, shoulders. Dizzy. Head injury RADIATION DOSAGE (If Supplied By Facility): CTDIvol = ( 44.99 ) mGy, DLP = ( 779.24 ) mGycm TECHNIQUE: Transaxial CT imaging of the brain was performed without administration of intravenous contrast material. Individualized dose optimization techniques were used for this CT. COMPARISON: 01/28/2021 FINDINGS: Normal soft tissue structures. Normal calvarium. Normal size ventricles and extra-axial spaces for the patient''s age. Normal white matter tracts of the cerebral hemispheres. Normal basal ganglia and thalami. Normal brainstem. Normal cerebellum. There is no intracranial hemorrhage. There are no findings of an acute ischemic infarction. Normal visualized paranasal sinuses. CT/Brain/Head without Contrast IMPRESSION: No acute intracranial process. Electronically Signed: Desiree Calzada MD at 11:16 EDT ,
--- NOTE | 2021-12-03 10:04 | CT_ITS ---
INDICATION: Fall backwards. Trauma. Pain in middle back. EXAMINATION: CT CHEST WITHOUT CONTRAST - CT Chest W/O Contrast Injection TECHNIQUE: Helically acquired images were obtained of the chest. A radiation dose optimization technique was used for this scan. IV Contrast dosage and agent: None. COMPARISON: None. FINDINGS: LUNGS, PLEURA AND LARGE AIRWAYS: There is a left lower lobe granuloma. There is no focal consolidation. No pleural effusion or thickening. No pneumothorax. There are sternal cerclage wires in place. THYROID: No thyroid lesions. HEART AND PERICARDIUM: Heart size is normal. No pericardial effusion. CORONARY ARTERIES: Coronary artery calcification is seen. VESSELS: Thoracic aorta is not dilated. There are peripheral calcifications of the thoracic aorta MEDIASTINUM AND MECCA: No mediastinal or hilar adenopathy. Esophagus is unremarkable. No hiatal hernia. UPPER ABDOMEN: No acute pathology. BONES: No suspicious lytic or blastic abnormality. There are degenerative changes of the thoracic spine. CT/Chest without Contrast IMPRESSION: No acute cardiopulmonary process. Atherosclerosis. Degenerative changes of the thoracic spine. Electronically Signed: Desiree Calzada MD at 11:33 EDT ,
--- NOTE | 2021-12-03 10:06 | ED.VIS.BACK ---
HPI History of Present Illness Chief Complaint: Fall Narrative Narrative: 66-year-old female on Plavix presenting after she had a slip and fall at work. 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 She states she fell very hard back onto her shoulder blades and hit her head. She did not lose consciousness. Initially she was nauseous but this has resolved. She states she still has a headache. She complains of neck and upper back pain. She does not have shortness of breath. No anterior chest pain. She did not injure her extremities. No lacerations or abrasions. She states that she was also dizzy prior to this but she is feeling improved now. [facility] Medical History Anxiety and depression Atherosclerosis of coronary artery 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 Atherosclerotic heart disease of [place] coronary artery without angina pectoris Essential hypertension GERD (gastroesophageal reflux disease) Hyperhomocystinemia Hyperlipidemia Iron deficiency anemia Lymphedema Narcolepsy Obesity Obstructive sleep apnea Peripheral neuropathy Proliferative diabetic retinopathy Restless legs syndrome (RLS) Type 2 diabetes mellitus Home Medications lorazepam 1 mg tablet (Ativan) 1 mg PO QHS 01/28/21 [History Last Taken Unknown] magnesium gluconate 12.5 mg magnesium (250 mg) tablet 250 mg PO DAILY 01/28/21 [History Last Taken Unknown] metformin 500 mg 24 hr tablet,extended release 500 mg PO BID 01/28/21 [History Last Taken Unknown] citalopram 40 mg tablet 40 mg PO DAILY 05/05/21 [History Last Taken Unknown] clopidogrel 75 mg tablet 75 mg PO DAILY #90 tabs 05/05/21 [Rx Last Taken Unknown] pregabalin 75 mg capsule 75 mg PO TID 05/05/21 [History Last Taken Unknown] ranolazine 1,000 mg tablet,extended release,12 hr 1,000 mg PO BID #180 tabs 05/05/21 [Rx Last Taken Unknown] ascorbate calcium (vitamin C) 500 mg tablet 500 mg PO DAILY 10/26/21 [History Last Taken Unknown] mecobalamin (vitamin B12) 5,000 mcg lozenge 5,000 mcg PO DAILY 10/26/21 [History Last Taken Unknown] red yeast rice 600 mg capsule 600 mg PO DAILY 10/26/21 [History Last Taken Unknown] sucralfate 1 gram tablet (Carafate) 1 g PO QACHS #30 tabs 11/08/21 [Rx Last Taken Unknown] Allergy/AdvReac Type Severity Reaction Status Date / Time aspirin Allergy Rash Verified 12/03/21 09:30 canagliflozin [From Invokana] Allergy Anaphylaxis Verified 12/03/21 09:30 niacin Allergy Rash Verified 12/03/21 09:30 Penicillins [PCN] Allergy Hives Verified 12/03/21 09:30 Sulfa (Sulfonamide Allergy Hives Verified 12/03/21 09:30 Antibiotics) acetaminophen AdvReac Upset Verified 12/03/21 09:30 [From Darvocet-N] Stomach erythromycin base AdvReac Other Verified 12/03/21 09:30 [From Staticin] ethyl alcohol [From Staticin] AdvReac Other Verified 12/03/21 09:30 gemfibrozil [From Lopid] AdvReac Other Verified 12/03/21 09:30 ibuprofen AdvReac Upset Verified 12/03/21 09:30 Stomach levofloxacin [From Levaquin] AdvReac Upset Verified 12/03/21 09:30 Stomach lisinopril AdvReac cough Verified 12/03/21 09:30 losartan AdvReac cough Verified 12/03/21 09:30 propoxyphene AdvReac Upset Verified 12/03/21 09:30 [From Darvocet-N] Stomach spironolactone AdvReac hyperkalemi Verified 12/03/21 09:30 a Zkvmdoe-FOG-FoA Reductase AdvReac unknown Verified 12/03/21 09:30 Inhibitor [Utvsehg-Dgs-Egg Reductase Inhibitor] tramadol AdvReac Other Verified 12/03/21 09:30 Family History Mother Heart disease Father Heart disease Diabetes Surgical History H/O coronary artery bypass surgery (10/2001) History of cataract surgery History of cholecystectomy History of colonoscopy with polypectomy History of coronary artery stent placement (08/29/17) History of hysterectomy History of left heart catheterization History of tonsillectomy History of tonsillectomy and adenoidectomy Social History Smoking Status: Former smoker alcohol intake: current alcohol intake frequency: holidays/special occasions only Alcohol type: beer substance use type: does not use what type of physical activity do you participate in: walking frequency: 5-6 times per week EXAM Physical Exam Const Vital Signs: 12/03/21 09:25 12/03/21 09:43 12/03/21 12:13 Temperature 97.0 F L Temperature Source Temporal Pulse Rate 60 50 L Respiratory Rate 16 12 Respiratory Effort Normal Non-Labored Blood Pressure 183/73 H 124/63 H Blood Pressure Mean 109 83 Pulse Ox 96 98 Oxygen Delivery Method Room Air Room Air Room Air Positive well nourished General Appearance ED: NAD; Negative for pallor HEENT Reports TM's clear and moist mucous membranes Tympanic Membrane ED: Yes TM's clear Eyes PERRL and EOMs intact bilaterally Neck Neck Narrative: Tenderness to palpation of the cervical spine without deformity or step-off. Chest Wall Chest Narrative: Equal symmetric breath sounds and chest wall rise. Tenderness to palpation diffusely between the bilateral shoulder blades and overlying the thoracic spine. No crepitance. No deformity. No bruising. Resp normal respiratory effort and clear to auscultation bilaterally Cardio regular rate and regular rhythm GI normal to inspection, nondistended, normoactive bowel sounds Back/Spine Back/Spine Narrative: No lumbar spinal tenderness or paraspinal muscular tenderness Extremity normal to inspection and no clubbing, cyanosis or edema Neuro oriented x3 and no sensory deficits noted Sensorium / Orientation: alert Motor Exam: strength 5/5 throughout Psych mental status grossly normal Skin no rashes or lesions noted and no wounds General Skin Exam: Negative for jaundice or pallor MDM MDM MDM Narrative Medical decision making narrative: Patient requests only Tylenol for pain. CT of the brain, cervical spine, chest are all normal. There is no acute findings. There are some degenerative changes in the cervical and thoracic spine. Patient does not have any more nausea, dizziness. Her pain is improved but she states she still has some. Patient declines any more analgesia. She is given work restrictions. Impression: 1. Slip and fall 2. Closed head injury 3. Cervical strain 4. Thoracic continue Radiography Diagnostic Testing: Clinical Impression(s) from Imaging Studies Brain CT 12/03/21 10:04 IMPRESSION: No acute intracranial process. Electronically Signed: Desiree Calzada MD at 11:16 EDT , Cervical Spine CT 12/03/21 10:04 IMPRESSION: Multilevel degenerative changes, as described above. Atherosclerosis. Electronically Signed: Desiree Calzada MD at 11:26 EDT , Chest CT 12/03/21 10:04 IMPRESSION: No acute cardiopulmonary process. Atherosclerosis. Degenerative changes of the thoracic spine. Electronically Signed: Desiree Calzada MD at 11:33 EDT , Discharge Plan Triage Chief Complaint: Fall ED Provider: Luis Manuel Ramirez Dx/Rx/DC Orders Instructions: ED Concussion, ED Back Contusion, ED Mechanical Fall, ED Neck Sprain or Strain Prescriptions: No Action citalopram 40 mg tablet 40 mg PO DAILY pregabalin 75 mg capsule 75 mg PO TID clopidogrel 75 mg tablet 75 mg PO DAILY Qty: 90 3RF ranolazine 1,000 mg tablet extended release 12 hr 1,000 mg PO BID Qty: 180 3RF red yeast rice 600 mg capsule 600 mg PO DAILY Rx Instructions: give with meal/snack mecobalamin (vitamin B12) 5,000 mcg lozenge 5,000 mcg PO DAILY Rx Instructions: allow to dissolve in mouth OR may chew lightly before swallowing ascorbate calcium (vitamin C) 500 mg tablet 500 mg PO DAILY magnesium gluconate 12.5 mg magne- sium (250 mg) Tablet 250 mg PO DAILY lorazepam [Ativan] 1 mg Tablet 1 mg PO QHS metformin 500 mg Tablet,Er Mitali.Retention 24 Hr 500 mg PO BID sucralfate [Carafate] 1 gram tablet 1 g PO QACHS Qty: 30 0RF Primary Care Provider: Dot Garces Referrals: Dot Garces MD [Primary Care Provider] - Clinic,NOW [NON-STAFF] - 3-5 Days Disposition Disposition: Home, Self Care Discharge Date/Time: 12/03/21 12:38
[2021-12-03] MEDS: Acetaminophen 500 MG Tablet 1000 MG PO (10:48)
[2021-12-03 12:13] VITALS: BP 124/63; PULSE 50; RESP 12; O2SAT 98
== END 2021-12-03 12:38 | disposition home or self-care (01) ==
PROVIDERS: Emergency Provider Student in an Organized Health Care Education/Training Program; PCP Internal Medicine; Visit Provider Student in an Organized Health Care Education/Training Program
DX: S09.90XA Unspecified injury of head, initial encounter (principal); E11.3599 Type 2 diabetes mellitus with proliferative diabetic retinopathy without macular edema, unspecified eye; E11.42 Type 2 diabetes mellitus with diabetic polyneuropathy; E78.5 Hyperlipidemia, unspecified; Z87.891 Personal history of nicotine dependence; S16.1XXA Strain of muscle, fascia and tendon at neck level, initial encounter; I10 Essential (primary) hypertension; Y93.89 Activity, other specified; R11.0 Nausea; I25.10 Atherosclerotic heart disease of native coronary artery without angina pectoris; M47.812 Spondylosis without myelopathy or radiculopathy, cervical region; G47.33 Obstructive sleep apnea (adult) (pediatric); G25.81 Restless legs syndrome; E66.9 Obesity, unspecified; Z68.33 Body mass index [BMI] 33.0-33.9, adult; Y99.0 Civilian activity done for income or pay; W19.XXXA Unspecified fall, initial encounter; Y92.89 Other specified places as the place of occurrence of the external cause; Z79.84 Long term (current) use of oral hypoglycemic drugs; Z79.02 Long term (current) use of antithrombotics/antiplatelets; Z79.899 Other long term (current) drug therapy; F32.A Depression, unspecified; F41.9 Anxiety disorder, unspecified
CPT/HCPCS: 70450; 71250; 72125; 99284

== ENCOUNTER 2021-12-29 09:25 | Day surgery (SDC) | payer MEDICARE, MEDICAID, SELFPAY ==
--- NOTE | 2021-12-29 09:32 | HP.PCM_ITS ---
History and Physical Date of Admission: 12/29/21 Visit Reasons:?EPIGASTRIC PAIN Chief Complaint: epigastic pain [employer] Required: No Is patient in pain?: Yes (indigestion like pain) Pain scale (1-10): 4 Allergies aspirin Allergy (Verified 12/07/21 07:54) Rashcanagliflozin [From Invokana] Allergy (Verified 12/07/21 07:54) Anaphylaxisniacin Allergy (Verified 12/07/21 07:54) RashPenicillins [PCN] Allergy (Verified 12/07/21 07:54) HivesSulfa (Sulfonamide Antibiotics) Allergy (Verified 12/07/21 07:54) Hivesacetaminophen [From Darvocet-N] Adverse Reaction (Verified 12/07/21 07:54) Upset Stomacherythromycin base [From Staticin] Adverse Reaction (Verified 12/07/21 07:54) Otherethyl alcohol [From Staticin] Adverse Reaction (Verified 12/07/21 07:54) Othergemfibrozil [From Lopid] Adverse Reaction (Verified 12/07/21 07:54) Otheribuprofen Adverse Reaction (Verified 12/07/21 07:54) Upset Stomachlevofloxacin [From Levaquin] Adverse Reaction (Verified 12/07/21 07:54) Upset Stomachlisinopril Adverse Reaction (Verified 12/07/21 07:54) coughlosartan Adverse Reaction (Verified 12/07/21 07:54) coughpropoxyphene [From Darvocet-N] Adverse Reaction (Verified 12/07/21 07:54) Upset Stomachspironolactone Adverse Reaction (Verified 12/07/21 07:54) wkkcjsqvpafhSayyvdk-KJK-PeP Reductase Inhibitor [Ohocmbe-Xtl-Ywt Reductase Inhibitor] Adverse Reaction (Verified 12/07/21 07:54) unknowntramadol Adverse Reaction (Verified 12/07/21 07:54) Other Medications lorazepam 1 mg tablet (Ativan) 1 mg PO QHS 01/28/21 [History Confirmed 12/07/21] magnesium gluconate 12.5 mg magnesium (250 mg) tablet 250 mg PO DAILY 01/28/21 [History Confirmed 12/07/21] metformin 500 mg 24 hr tablet,extended release 500 mg PO BID 08/14/21 [History Confirmed 12/07/21] citalopram 40 mg tablet 40 mg PO DAILY 05/05/21 [History Confirmed 12/07/21] clopidogrel 75 mg tablet 75 mg PO DAILY #90 tabs 05/05/21 [Rx Confirmed 12/07/21] pregabalin 75 mg capsule 75 mg PO TID 05/05/21 [History Confirmed 12/07/21] ranolazine 1,000 mg tablet,extended release,12 hr 1,000 mg PO BID #180 tabs 05/05/21 [Rx Confirmed 12/07/21] ascorbate calcium (vitamin C) 500 mg tablet 500 mg PO DAILY 10/26/21 [History Confirmed 12/07/21] mecobalamin (vitamin B12) 5,000 mcg lozenge 5,000 mcg PO DAILY 10/26/21 [History Confirmed 12/07/21] red yeast rice 600 mg capsule 600 mg PO DAILY 10/26/21 [History Confirmed 12/07/21] sucralfate 1 gram tablet (Carafate) 1 g PO QACHS #30 tabs 11/08/21 [Rx Confirmed 12/07/21] PFSH Medical History? 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 H/O coronary artery bypass surgery (10/2001) History of cataract surgery History of cholecystectomy History of colonoscopy with polypectomy History of coronary artery stent placement (08/29/17) History of hysterectomy History of left heart catheterization History of tonsillectomy History of tonsillectomy and adenoidectomy Family History? Mother Heart diseaseFather Heart disease Diabetes Social History? Smoking Status:? Former smoker alcohol intake:? current alcohol intake frequency: holidays/special occasions only Alcohol type: beer substance use type:? does not use what type of physical activity do you participate in:? walking frequency:? 5-6 times per week HPI HPI HPI: ELSA PUGH, is a 66 F who presents to the office today for Surgical consultation regarding epigastric discomfort.? The patient is referred by Dr. Dot Garces written copy of my surgical consult and recommendations will return to him.? She described a Dr. Garces discomfort in the epigastric area such as an achy sensation as if she is hungry.? When she eats apparently this improves while and then recurs.? This been going on for weeks.? At his visit she denied bright red blood per rectum or melena.? She denied any previous history of peptic ulcer disease.? She does have a history of coronary artery disease and has had a history of coronary artery stenting as well as coronary bypass surgery.? In addition she has a history of type 2 diabetes and obesity.? She was prescribed sucralfate per Dr. Brandon on October 26, 2021.? There was concerns that she may be troubled by peptic ulcer disease. Among her other medications she is on clopidogrel and pregabalin and now sucralfate.? He has had a previous history of cholecystectomy and hysterectomy and tonsillectomy in addition to her coronary bypass surgery and coronary stenting. Patient had a stress test by Dr. Larry Osorio approximately 3 months ago without evidence of ischemia.? The patient did take the Carafate though she admits to not being completely compliant.? Initially she thought that the Carafate made improvement in her discomfort but maybe not so at the end.? She is completely exhausted her supply and she has not yet gotten back in touch with Dr. Brandon about a refill. She states that the discomfort is similar but not quite like the pain that she had with her previous gallbladder disease.? She also initially thought that it might have been cardiac but as noted the stress test was not remarkable.? She is able to climb a flight of stairs without exacerbation of the discomfort. ROS General General: Yes fatigue; No weight change, appetite, colon cancer, breast cancer or weakness HEENT HEENT: Yes difficulty swallowing; No eye injury, eye surgery, swollen glands or hoarseness Endo Endocrine: Yes diabetes mellitus; No thyroid disease, thyroid cancer, Hair loss, heat intolerance or cold intolerance Skin Skin: No rash or changing moles Breast Breast: No left breast lump, right breast lump, nipple discharge, breast pain, abnormal mammogram, abnormal US or breast enlargement Musc Musculoskeletal: Yes rheumatoid arthritis; No back problems, arthritis, gout or joint pain Cardio Cardiovascular: Yes murmur, heart disease, heart attack and heart stent; No pacemaker, atrial fibrillation, high blood pressure, palpitations, shortness of breat with exertion or chest pain Psych Psychiatric: No depression, anxiety or hearing voices Resp Respiratory: Yes shortness of breath, Yes sleep apnea, No cough, No COPD, No asthma, No emphysema and No wheezing Gastro Gastrointestinal: Yes abdominal pain, Yes nausea or vomiting, No diarrhea, Yes constipation, No blood in stool, Yes acid reflux, No hemorrhoids, No ulcers, Yes gallbladder problem and No black,tarry stools Marbin Hematologic: Yes blood thinners, No blood disorders, No bleeding, No anemia and No blood clots Additional Details: plavix Neuro Neurologic: No system reviewed and no additional complaints, except as documented, No as per HPI, No abnormal gait, No abnormal hearing, No abnormal movements, No abnormal speech, No behavioral changes, No burning sensations, No confusion, No convulsions, No disequilibrium, No dizziness, No localized weakness, No frequent falls, No headache(s), No lack of coordination, No loss of vision, No memory loss, No numbness, No other visual disturbances, No radicular pain, No restless legs, No sensory deficit, No syncope, No tingling, No tremor(s), No weakness and No other Exam Const General: cooperative, healthy appearing, comfortable and no acute distress Nutritional Appearance: obese [facility] Head: normal to inspection Chest Other: Increased anterior posterior diameter Resp Effort & Inspection: normal respiratory effort Auscultation: clear to auscultation bilaterally Cardio Rate: regular rate Rhythm: regular rhythm Other: 2/6 systolic ejection murmur GI Other: Soft, overweight, mild discomfort to palpation epigastrium, no rebound or guarding, no hepatosplenomegaly, normal bowel sounds Musc Cervical Spine: normal cervical lordosis Skin General: no rashes or lesions noted Neuro General: patient alert, patient awake and patient oriented x3 Extrem General: normal to inspection Psych Appearance: grossly normal Assessment and Plan Assessment and Plan (1) Epigastric pain: ?Status:?Acute ?Plan: I recommend the patient a esophagogastroduodenoscopy with possible biopsy or polypectomy as indicated.? She is aware of the technique, benefit, risk and alternatives.? Unfortunately the patient cannot take proton pump inhibitors.? She might be a candidate for more long-term sucralfate therapy.? This sounds more like a GI problem rather than cardiac.? As noted she has had a recent normal stress test. I would like to obtain records from her [place] laboratory for liver function tests.? She states the pain is slightly different from her previous gallbladder procedure but she did have gallstones at the time of her surgery. Appreciate the opportunity of assisting with her surgical care. Copy: Dr. Dot Zaman M.D., F.A.C.S. I have re-examined the patient. There are no clinical changes since date of exam. Blake Zaman M.D., F.A.C.S.
[2021-12-29 09:42] VITALS: BP 136/69; PULSE 48; RESP 16; TEMP 36.6; O2SAT 98; BMI 32.0
[2021-12-29] MEDS: Lactated Ringers 1,000 ML 30 ML IV (09:58)
[2021-12-29 10:21] LABS: Bedside Glucose 237 mg/dL (74-106)
--- NOTE | 2021-12-29 10:30 | EGD_PTH ---
PATIENT: ELSA PUGH LOC: EN U#:[id number] AGE/SX: 66/F ROOM: RE12/29/[address]: Dr. Blake Zaman MD : 1955 BED: DIS: 12/29/2021 SPEC #: [id number] RECD: 12/29/21 12:50 STATUS: EZIO FREGOSO #: [id number] CYRUS: 12/29/21 10:[address]: Blake Zaman DEPT: SURGICAL PATHOLOGY RECD BY: Nora Chambers ENTERED: 12/29/21 13:21 SP TYPE: EGD BIOPSY OTHR DR: Dr. Dot Garces MD Tissues: A - Duodenum, NOS B - Gastric mucous membrane C - Stomach, NOS D - Esophagus, NOS E - Esophagus, NOS Procedures: Special Stain Group II Surgery Specimen Level IV Alcian Blue/PAS (control) HEADER OPERATION: EGD with biopsies (MAC) PRE-OP DIAGNOSIS: Epigastric pain TISSUE SUBMITTED: A ? Duodenum biopsy, B ? Antrum biopsy for H. pylori and path, C ? Greater curvature polyp, D ? Distal esophagus biopsy, E ? Mid esophagus biopsy MICROSCOPIC DIAGNOSIS A. Duodenum, biopsy: No pathologic change. B. Gastric antrum, biopsy: Chronic active gastritis. See comment. C. Stomach, greater curvature polyp, biopsy: Consistent with fundic gland polyp. D. Distal esophagus, biopsy: Gastroesophageal junctional mucosa with mild chronic inflammation. No evidence of goblet cell metaplasia. See comment. E. Mid esophagus, biopsy: No pathologic change. AM:martinez 01/01/2022 COMMENT B. The results of immunohistochemistry for Helicobacter pylori will be reported separately ([id number]). D. Alcian blue/PAS stain with matched control supports the above diagnosis. MICROSCOPIC DESCRIPTION Slides are reviewed. GROSS DESCRIPTION A - Received in fixative is one container labeled with the patient's name and designated duodenum biopsy. The specimen consists of two irregular fragments of light rosario soft tissue that in aggregate measure 0.6 x 0.3 x 0.1 cm. The specimen is totally submitted in one cassette. B - Received in fixative is one container labeled with the patient's name and designated antrum biopsy. The specimen consists of one irregular fragment of light rosario soft tissue that measures 0.4 x 0.2 x 0.1 cm. The specimen is totally submitted in one cassette. C - Received in fixative is one container labeled with the patient's name and designated greater curvature polyp. The specimen consists of one irregular fragment of light rosario soft tissue that measures 0.3 x 0.3 x 0.1 cm. The specimen is totally submitted in one cassette. D - Received in fixative is one container labeled with the patient's name and designated distal esophagus biopsy. The specimen consists of multiple irregular fragments of light rosario soft tissue that in aggregate measure 1 x 0.3 x 0.1 cm. The specimen is totally submitted in one cassette. E - Received in fixative is one container labeled with the patient's name and designated mid esophagus biopsy. The specimen consists of one irregular fragment of light rosario soft tissue that measures 0.5 x 0.2 x 0.1 cm. The specimen is totally submitted in one cassette. / SJ:rg 12/29/2021 TC:3 CPT: 37975 x5, 83163
--- NOTE | 2021-12-29 10:30 | IMM_PTH ---
PATIENT: ELSA PUGH LOC: EN U#:[id number] AGE/SX: 66/F ROOM: RE12/29/[address]: Dr. Blake Zaman MD : 1955 BED: DIS: 12/29/2021 SPEC #: [id number] RECD: 12/29/21 13:35 STATUS: EZIO REQ #: [id number] CYRUS: 12/29/21 10:[address]: Blake Zaman DEPT: IMMUNOHISTOCHEMISTRY RECD BY: Olga Boothe ENTERED: 12/29/21 13:36 SP TYPE: IMMUNO OTHR DR: Dr. Dot Garces MD Tissues: B - Stomach, NOS Procedures: H Pylori (initial) PHYSICIAN & INSTITUTION [place] [id number] SPECIMEN INFORMATION: Tissue Source: B ? Antrum biopsy Clinical Info: Epigastric pain Specimen Number: [id number] CPT code: 49670 METHODOLOGY: Deparaffinized sections of prefer/formalin-fixed tissue or PAP/DQ stained slides are incubated with monoclonal/polyclonal antibodies/oligonucleotide probes. Localization is made via biotin free immunoperoxidase method. Appropriate controls are performed and reacted as expected. Results on target cell population are indicated in the following table: RESULTS: ANTIBODY / CLONE RESULT Block B H Pylori (polyclonal) negative These tests were developed and their performance characteristics determined by [facility]. They may not have been cleared or approved by the U.S. Food and Drug Administration. The FDA has determined that such clearance or approval is not necessary. The above immunohistochemical/dualISH markers are ordered and reviewed by the Pathologist. INTERPRETATION: B. Antrum, biopsy: Negative for Helicobacter pylori organisms. AM:martinez 01/01/2022
[2021-12-29 11:10] VITALS: BP 114/70; BP 136/69; PULSE 54; RESP 16; TEMP 37.1; O2SAT 91
--- NOTE | 2021-12-29 11:11 | OP.EGD_ITS ---
Patient Name: Lu Damon Procedure Date: 12/29/2021 10:45 AM Date of : 1955 Age: 66 Procedure: Upper GI endoscopy Indications: Epigastric abdominal pain Providers: Blake Zaman MD Medicines: See the Anesthesia note for documentation of the administered medications Complications: No immediate complications. Procedure: Pre-Anesthesia Assessment: - Prior to the procedure, a History and Physical was performed, and patient medications and allergies were reviewed. The patient's tolerance of previous anesthesia was also reviewed. The risks and benefits of the procedure and the sedation options and risks were discussed with the patient. All questions were answered, and informed consent was obtained. Prior Anticoagulants: The patient has taken no previous anticoagulant or antiplatelet agents. ASA Grade Assessment: II - A patient with mild systemic disease. After reviewing the risks and benefits, the patient was deemed in satisfactory condition to undergo the procedure. After obtaining informed consent, the endoscope was passed under direct vision. Throughout the procedure, the patient's blood pressure, pulse, and oxygen saturations were monitored continuously. The gastroscope was introduced through the mouth, and advanced to the second part of duodenum. The upper GI endoscopy was accomplished without difficulty. The patient tolerated the procedure well. Scope In: 10:54:57 AM Scope Out: 11:03:43 AM Total Procedure Duration Time 0 hours 8 minutes 46 seconds Findings: The middle third of the esophagus was normal. Biopsies were taken with a cold forceps for histology. Esophagitis with no bleeding was found 39 cm from the incisors. Biopsies were taken with a cold forceps for histology. A small hiatal hernia was present. Multiple sessile polyps with no bleeding and no stigmata of recent bleeding were found on the greater curvature of the stomach. The polyp was removed with a cold biopsy forceps. Resection and retrieval were complete. Bilious fluid was found on the greater curvature of the stomach. Diffuse mildly erythematous mucosa without bleeding was found in the gastric antrum. Biopsies were taken with a cold forceps for histology. The examined duodenum was normal. Biopsies were taken with a cold forceps for histology. Impression: - Normal middle third of esophagus. Biopsied. - Reflux esophagitis, very minimal. Biopsied. - Small hiatal hernia. - Multiple gastric polyps. Resected and retrieved. - Bilious gastric fluid. - Erythematous mucosa in the antrum. Biopsied. - Normal examined duodenum. Biopsied. Recommendation: - Discharge patient to home. - Resume previous diet. - Continue present medications. Possible bile reflux gastritis; await path - Telephone my office for pathology results in 1 week. Procedure Code(s): --- Professional --- 05853, Esophagogastroduodenoscopy, flexible, transoral; with biopsy, single or multiple Diagnosis Code(s): --- Professional --- K21.0, Gastro-esophageal reflux disease with esophagitis K44.9, Diaphragmatic hernia without obstruction or gangrene K31.7, Polyp of stomach and duodenum K31.89, Other diseases of stomach and duodenum R10.13, Epigastric pain CPT copyright 2017 [employer]. All rights reserved. The codes documented in this report are preliminary and upon warehouse loader review may be revised to meet current compliance requirements. Blake Zaman MD 12/29/2021 11:11:12 AM This report has been signed electronically. Number of Addenda: 0 Note Initiated On: 12/29/2021 10:45 AM
--- NOTE | 2021-12-29 11:12 | OP.CCLET_ITS ---
12/29/2021 [facility] [address] [place] [address] Re : Upper GI endoscopy procedure for Lu Grdarren Dear Dr. Garces This procedure was performed on Wednesday, December 29, 2021. My impressions and recommendations are as follows: Impressions : - Normal middle third of esophagus. Biopsied. - Reflux esophagitis, very minimal. Biopsied. - Small hiatal hernia. - Multiple gastric polyps. Resected and retrieved. - Bilious gastric fluid. - Erythematous mucosa in the antrum. Biopsied. - Normal examined duodenum. Biopsied. Recommendations : - Discharge patient to home. - Resume previous diet. - Continue present medications. Possible bile reflux gastritis; await path - Telephone my office for pathology results in 1 week. My findings are described in the full procedure note, which is enclosed. If I can be of further assistance, please feel free to contact me at Doctor phone number(s): Work: . Sincerely, Blake Zaman MD 12/29/2021 11:11:12 AM This report has been signed electronically.
[2021-12-29 11:15] VITALS: BP 113/73; BP 136/69; PULSE 55; RESP 16; O2SAT 92
[2021-12-29 11:20] VITALS: BP 136/69; BP 91/52; PULSE 55; RESP 16; O2SAT 100
[2021-12-29 11:26] VITALS: BP 102/69; BP 136/69; PULSE 55; RESP 16; TEMP 36.4; O2SAT 92
[2021-12-29 11:44] VITALS: BP 136/69
== END 2021-12-29 11:54 | disposition home or self-care (01) ==
LOC: EN 09:26 → AC 09:27
PROVIDERS: PCP Internal Medicine; Referring Provider Internal Medicine; Visit Provider Surgery
PROC: 0DJ08ZZ Inspection of Upper Intestinal Tract, Via Natural or Artificial Opening Endoscopic (ICD-10-PCS; CPT 43235; principal; 2021-12-29 10:25)
DX: K29.50 Unspecified chronic gastritis without bleeding (principal); M06.9 Rheumatoid arthritis, unspecified; E11.42 Type 2 diabetes mellitus with diabetic polyneuropathy; K31.7 Polyp of stomach and duodenum; F41.9 Anxiety disorder, unspecified; F32.A Depression, unspecified; I25.10 Atherosclerotic heart disease of native coronary artery without angina pectoris; I10 Essential (primary) hypertension; K21.00 Gastro-esophageal reflux disease with esophagitis, without bleeding; E78.5 Hyperlipidemia, unspecified; D50.9 Iron deficiency anemia, unspecified; E66.9 Obesity, unspecified; G25.81 Restless legs syndrome; Z79.84 Long term (current) use of oral hypoglycemic drugs; Z79.899 Other long term (current) drug therapy; Z95.1 Presence of aortocoronary bypass graft; Z87.891 Personal history of nicotine dependence; Z79.82 Long term (current) use of aspirin; M19.90 Unspecified osteoarthritis, unspecified site; I25.2 Old myocardial infarction; Z78.0 Asymptomatic menopausal state; Z90.49 Acquired absence of other specified parts of digestive tract; K44.9 Diaphragmatic hernia without obstruction or gangrene
CPT/HCPCS: 43239; 82962; 88305; 88313; 88342; J7120; J2405

== ENCOUNTER 2022-01-17 12:35 | Emergency (ER) | payer MEDICARE, MEDICAID, SELFPAY ==
[2022-01-17 12:36] VITALS: BP 179/78; PULSE 51; RESP 16; TEMP 36.6; O2SAT 98; BMI 33.1
--- NOTE | 2022-01-17 12:57 | EDS_ITS ---
HPI History of Present Illness Chief Complaint: Dizziness Detail of Chief Complaint: Vertigo x1 month and headache x4 days Informant: patient and spouse/S.O. Onset/Context/Timing Onset: Days and Month(s) Context: Sudden Onset Timing: Continuous (Headache is global and constant) and Intermittent (Vertigo is transient) Quality: Pain and spinning Location: Had Current Severity: Mild Maximum Severity: Moderate Worsened by: Change in position makes the vertigo worse/precipitates it. N othing regard Relieved by: Closing eyes and staying still regarding vertigo Associated Symptoms Associated Symptoms: Clammy with nausea when patient became vertiginous today Narrative Narrative: Patient is a 66-year-old woman with history of hypertension, type 2 diabetes, coronary artery disease status post four-vessel bypass surgery 2002 and placement of 17 stents. She does have history of hyperlipidemia. She is intolerant to the medication. She denies history of stroke. She denies double vision, blurred vision or loss of vision. She denies trouble with speech or swallowing. She denies numbness or tingling her arms or legs but does report tingling at the tip of her tongue all of her fingers and all of her toes. She did report heartburn yesterday. She attributed this to hiatal hernia. She denies black or maroon-colored stool. She attributed the numbness in her toes and feet due to diabetic neuropathy. Prior similar symptoms: No Recent Illness/Hospitalization: No [facility] Medical History (Updated 01/17/22 @ 13:[address] Juan Manuel Peña MD) Acute kidney failure Alcohol use Ambulates with cane Anemia Anxiety and depression Arthritis Atherosclerosis of coronary artery 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 Atherosclerotic heart disease of [place] coronary artery without angina pectoris Back pain Blackout Cardiology follow-up encounter Chest pain Concussion CPAP (continuous positive airway pressure) dependence Diabetes Difficulty chewing Difficulty swallowing Essential hypertension Former smoker Gastric reflux GERD (gastroesophageal reflux disease) Hiatal hernia High cholesterol History of diverticulitis History of echocardiogram History of heart attack History of irregular heartbeat History of stress test Hyperhomocystinemia Hyperlipidemia Injury of back Injury of head and neck Iron deficiency anemia Lymphedema Migraine headache Narcolepsy Obesity Obstructive sleep apnea Peripheral neuropathy Post-menopausal Proliferative diabetic retinopathy Restless legs Restless legs syndrome (RLS) Rheumatoid arthritis Shortness of breath on exertion Sleep apnea Type 2 diabetes mellitus Wears glasses Home Medications magnesium gluconate 12.5 mg magnesium (250 mg) tablet 250 mg PO DAILY 01/28/21 [History Last Taken Unknown] citalopram 40 mg tablet 40 mg PO DAILY 05/05/21 [History Last Taken Unknown] clopidogrel 75 mg tablet 75 mg PO DAILY #90 tabs 05/05/21 [Rx Last Taken 12/28/21] ranolazine 1,000 mg tablet,extended release,12 hr 1,000 mg PO BID #180 tabs [Rx Last Taken 12/29/21] ascorbate calcium (vitamin C) 500 mg tablet 500 mg PO DAILY 10/26/21 [History Last Taken Unknown] mecobalamin (vitamin B12) 5,000 mcg lozenge 5,000 mcg PO DAILY 10/26/21 [History Last Taken Unknown] red yeast rice 600 mg capsule 600 mg PO DAILY 10/26/21 [History Last Taken Unknown] metformin 1,000 mg tablet,extended release 24hr 1,000 mg PO BID 12/28/21 [History Last Taken Unknown] semaglutide 0.25 mg or 0.5 mg (2 mg/1.5 mL) subcutaneous pen injector 0.25 mg (0.2 mL) subcut QWEEK #1.5 mL 12/28/21 [Rx Last Taken Unknown] sucralfate 1 gram tablet (Carafate) 1 g PO QACHS #30 tabs 01/03/22 [Rx Last Taken Unknown] sucralfate 1 gram tablet 1 g PO ACHS #120 tabs 01/17/22 [Rx Last Taken Unknown] Allergy/AdvReac Type Severity Reaction Status Date / Time aspirin Allergy Rash Verified 01/17/22 12:38 banana Allergy Hives Verified 01/17/22 12:38 canagliflozin [From Invokana] Allergy Anaphylaxis Verified 01/17/22 12:38 kiwi Allergy Hives Verified 01/17/22 12:38 niacin Allergy Rash Verified 01/17/22 12:38 Penicillins [PCN] Allergy Hives Verified 01/17/22 12:38 Sulfa (Sulfonamide Allergy Hives Verified 01/17/22 12:38 Antibiotics) erythromycin base AdvReac Other Verified 01/17/22 12:38 [From Staticin] ethyl alcohol [From Staticin] AdvReac Other Verified 01/17/22 12:38 gemfibrozil [From Lopid] AdvReac Other Verified 01/17/22 12:38 ibuprofen AdvReac Upset Verified 01/17/22 12:38 Stomach levofloxacin [From Levaquin] AdvReac Upset Verified 01/17/22 12:38 Stomach lisinopril AdvReac cough Verified 01/17/22 12:38 losartan AdvReac cough Verified 01/17/22 12:38 propoxyphene AdvReac Upset Verified 01/17/22 12:38 [From Darvocet-N] Stomach spironolactone AdvReac hyperkalemi Verified 01/17/22 12:38 a Ybmqqrv-TMN-QnE Reductase AdvReac unknown Verified 01/17/22 12:38 Inhibitor [Jvbyvlh-Xku-Kqa Reductase Inhibitor] tramadol AdvReac Other Verified 01/17/22 12:38 Family History Mother Heart disease Father Heart disease Diabetes Surgical History (Updated 01/17/22 @ 13:[address] Juan Manuel Peña MD) H/O coronary artery bypass surgery (10/2001) History of cataract surgery History of cholecystectomy History of colonoscopy with polypectomy History of coronary artery stent placement (08/29/17) History of hysterectomy History of left heart catheterization History of tonsillectomy Social History (Updated 01/17/22 @ 13:[address] Juan Manuel Peña MD) household members: spouse Smoking Status: Former smoker alcohol intake: current alcohol intake frequency: holidays/special occasions only Alcohol type: beer substance use type: does not use what type of physical activity do you participate in: walking frequency: 5-6 times per week ROS ROS ED Constitutional Constitutional ED: Denies chills, fever(s), subjective, sweats or weight loss Eyes Eyes: Denies blurry vision, change in vision or diplopia ENT ENT ED: Denies ear pain, rhinorrhea or sore throat Cardiovascular Cardiovascular: Denies chest pain, orthopnea, palpitations or paroxysmal nocturnal dyspnea Respiratory/Chest Respiratory/Chest: Denies cough, dyspnea, dyspnea on exertion, orthopnea or paroxysmal nocturnal dyspnea Gastrointestinal Gastrointestinal: Reports nausea and other Details: Does report heartburn last evening that lasted hours. ; Denies abdominal pain, diarrhea, melena or vomiting Genitourinary Genitourinary ED: Denies dysuria, hematuria or urinary frequency Musculoskeletal Musculoskeletal: Denies arthralgias, back pain, myalgias or neck pain Neurologic Neurologic: Reports headache(s), paresthesias and other Details: Denies motor weakness. Does report balance being off and precipitated worse when upright. Her symptoms are transient. ; Denies weakness Psychiatric Psychiatric: Denies anxiety or depression Endocrine Endocrinology: Denies polydipsia, polyphagia or polyuria Hematologic/Lymphatic Hematologic/Lymphatic: Denies easy bleeding or easy bruising EXAM Physical Exam Const Vital Signs: 01/17/22 12:36 01/17/22 13:03 Temperature 97.8 F Temperature Source Temporal Pulse Rate 51 L Respiratory Rate 16 Respiratory Effort Normal Non-Labored Blood Pressure 179/78 H Blood Pressure Mean 111 Pulse Ox 98 Oxygen Delivery Method Room Air Positive well nourished, well developed and obese General Appearance ED: well developed and NAD; Negative for cyanotic or diaphoretic Nutritional Appearance: obese HEENT Reports moist mucous membranes HEENT Narrative: Ears normal. External auditory canals normal. TMs normal. Nares patent. Posterior pharynx not erythema or exudate. Uvula midline. Negative for trauma or tenderness Eyes EOMs intact bilaterally Eyes Narrative: Status post cataract surgery. There is no nystagmus. General Eye ED: Negative for pale conjunctiva or scleral icterus Neck no lymphadenopathy, supple and no JVD Neck Narrative: There is no carotid bruit noted. Resp No normal respiratory effort and No clear to auscultation bilaterally Cardio Negative for regular rate, regular rhythm, S1 normal heart sound, S2 normal heart sound or no murmurs GI normal to inspection, nondistended, normoactive bowel sounds, non-tender, non- distended and no masses; Negative for hepatosplenomegaly Extremity normal to inspection Extremity Narrative: Surgical scar noted volar surface left arm due to bypass surgery, graft site General Extremety ED: Negative for edema or tenderness General Extremity: Negative for edema Neuro oriented x3, CN's II-XII intact bilaterally and no sensory deficits noted Neuro Narrative: Romberg test with eyes open and close normal. Patient appears slightly unsteady when she arises from sitting position. Ila-Hallpike maneuver was positive and worse with patient's head to the right. The eye askew test was negative. The hint test was negative. Gait was observed and is not ataxic. She is able to walk on her toes and heels. Tandem gait was acceptable. There was no clonus or Babinski sign. Sensorium / Orientation: alert Motor Exam: strength 5/5 throughout Psych mental status grossly normal Skin no rashes or lesions noted, no wounds and skin turgor normal MDM MDM MDM Narrative Medical decision making narrative: In light of patient's significant past medical history complain of heartburn for hours will obtain EKG and troponin to determine if this is due to hiatal hernia versus cardiac disease. Joe maneuver was performed and patient's symptoms resolved. Lab Data Attestation: I reviewed the patient's lab results. Lab results narrative: Opponent is less than 8 with hours of pain yesterday. Therefore negative predictive value is 100% for cardiac disease. She will be discharged home. Labs: Laboratory Results - last 24 hr 01/17/22 01/17/22 12:44 13:17 Troponin I High Sens 7 POC Glucose 158 H Radiography Chest X-Ray - ED: CHF EKG Initial EKG: Interpretation: Sinus Bradycardia (Ventricular rate is 50. NC interval is 182 ms. Cures duration 94 ms. QT duration 500 ms with QTC of 455 ms. [place] is normal. There is evidence of nonsevere ST-T wave changes. There is no acute ischemic changes noted.) Discharge Plan Triage Chief Complaint: Dizziness ED Provider: Juan Manuel Peña Dx/Rx/DC Orders Clinical Impression: Benign paroxysmal positional vertigo, Essential hypertension, H/O coronary artery bypass surgery, Heartburn, Hx of hiatal hernia, Hx of type 2 diabetes mellitus Instructions: BPPV, ED GERD (Adult) Prescriptions: New sucralfate 1 gram tablet 1 g PO ACHS Qty: 120 3RF No Action citalopram 40 mg tablet 40 mg PO DAILY clopidogrel 75 mg tablet 75 mg PO DAILY Qty: 90 3RF Label Comments: PT TO NOT TAKE DAY OF PROCEDURE ONLY ranolazine 1,000 mg tablet extended release 12 hr 1,000 mg PO BID Qty: 180 3RF red yeast rice 600 mg capsule 600 mg PO DAILY Rx Instructions: give with meal/snack mecobalamin (vitamin B12) 5,000 mcg lozenge 5,000 mcg PO DAILY Rx Instructions: allow to dissolve in mouth OR may chew lightly before swallowing ascorbate calcium (vitamin C) 500 mg tablet 500 mg PO DAILY metformin 1,000 mg tablet extended release 24hr 1,000 mg PO BID semaglutide 0.25 mg or 0.5 mg(2 mg/1.5 mL) pen injector 0.25 mg subcut QWEEK Qty: 1.5 1RF Rx Instructions: for 4 doses magnesium gluconate 12.5 mg magne- sium (250 mg) Tablet 250 mg PO DAILY sucralfate [Carafate] 1 gram tablet 1 g PO QACHS Qty: 30 0RF Primary Care Provider: Dot Garces Referrals: Dot Garces MD [Primary Care Provider] - As Needed Disposition Disposition: Home, Self Care
--- NOTE | 2022-01-17 12:59 | EKG12_ITS ---
Test Reason : cp Blood Pressure : / mmHG Vent. Rate : 050 BPM Atrial Rate : 050 BPM P-R Int : 182 ms QRS Dur : 094 ms QT Int : 500 ms P-R-T Axes : 050 025 025 degrees QTc Int : 455 ms Sinus bradycardia Nonspecific ST and T wave abnormality Abnormal ECG Confirmed by NICOLE SON, LINDA ([id number]), market editor BARRY LOU ([id number]) on 01/18/2022 1:23:19 PM Referred By: Confirmed By:LINDA RIVERA MD
[2022-01-17 13:05] LABS: Bedside Glucose 158 mg/dL (74-106)
[2022-01-17 13:48] LABS: Troponin-I HS 7 pg/mL (3.0-54.0)
[2022-01-17 14:07] VITALS: BP 138/88; PULSE 47
== END 2022-01-17 14:07 | disposition home or self-care (01) ==
PROVIDERS: Emergency Provider Emergency Medicine; PCP Internal Medicine; Visit Provider Emergency Medicine
DX: H81.10 Benign paroxysmal vertigo, unspecified ear (principal); M06.9 Rheumatoid arthritis, unspecified; E11.40 Type 2 diabetes mellitus with diabetic neuropathy, unspecified; I25.10 Atherosclerotic heart disease of native coronary artery without angina pectoris; K21.9 Gastro-esophageal reflux disease without esophagitis; Z87.19 Personal history of other diseases of the digestive system; E78.00 Pure hypercholesterolemia, unspecified; F41.9 Anxiety disorder, unspecified; F32.A Depression, unspecified; Z79.899 Other long term (current) drug therapy; G47.33 Obstructive sleep apnea (adult) (pediatric); G25.81 Restless legs syndrome; Z78.0 Asymptomatic menopausal state; D50.9 Iron deficiency anemia, unspecified; I25.2 Old myocardial infarction; Z79.02 Long term (current) use of antithrombotics/antiplatelets; Z87.891 Personal history of nicotine dependence; Z95.1 Presence of aortocoronary bypass graft; E66.9 Obesity, unspecified; I10 Essential (primary) hypertension; K44.9 Diaphragmatic hernia without obstruction or gangrene; Z68.33 Body mass index [BMI] 33.0-33.9, adult; Z79.84 Long term (current) use of oral hypoglycemic drugs
CPT/HCPCS: 82962; 84484; 93005; 99284; A4216

== ENCOUNTER 2022-02-28 10:40 | Emergency (ER) | payer MEDICARE, MEDICAID, SELFPAY ==
[2022-02-28 10:41] VITALS: BP 157/63; PULSE 53; RESP 22; TEMP 37.2; O2SAT 100; BMI 32.8
--- NOTE | 2022-02-28 10:51 | EKG12_ITS ---
Test Reason : Blood Pressure : / mmHG Vent. Rate : 054 BPM Atrial Rate : 054 BPM P-R Int : 164 ms QRS Dur : 098 ms QT Int : 476 ms P-R-T Axes : 057 031 000 degrees QTc Int : [address] & T wave abnormality, consider anterior ischemia Abnormal ECG Confirmed by CORINNE SON, ALIE ([id number]), senior editor BARRY LOU ([id number]) on 03/02/2022 9:42:53 AM Referred By: Confirmed By:ALIE SUN MD
--- NOTE | 2022-02-28 10:53 | ED.VIS.DYS ---
HPI History of Present Illness Chief Complaint: Shortness of Breath Narrative Narrative: Patient with past medical history of coronary artery disease, hypertension, presents with cough, and shortness of breath that she has had for the last 7 days. She states she initially had a fever which has resolved. She had a dry cough which is now productive of sputum. She has chest pain when she coughs, now feels short of breath. She states she was feeling improved yesterday, and saw her spin tank tender's office. However, when she awoke this morning she was feeling worse so she presents to the emergency department for evaluation of her increasing shortness of breath. She is a non-smoker. She denies any leg swelling or other symptoms except for upper respiratory infection type symptoms. She states she had a COVID test performed on Saturday which was negative. [facility] Medical History Acute kidney failure Alcohol use Ambulates with cane Anemia Anxiety and depression Arthritis Atherosclerosis of coronary artery 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 Atherosclerotic heart disease of [place] coronary artery without angina pectoris Back pain Blackout Cardiology follow-up encounter Chest pain Concussion CPAP (continuous positive airway pressure) dependence Diabetes Difficulty chewing Difficulty swallowing Essential hypertension Former smoker Gastric reflux GERD (gastroesophageal reflux disease) Hiatal hernia High cholesterol History of diverticulitis History of echocardiogram History of heart attack History of irregular heartbeat History of stress test Hyperhomocystinemia Hyperlipidemia Injury of back Injury of head and neck Iron deficiency anemia Lymphedema Migraine headache Narcolepsy Obesity Obstructive sleep apnea Peripheral neuropathy Post-menopausal Proliferative diabetic retinopathy Restless legs Restless legs syndrome (RLS) Rheumatoid arthritis Shortness of breath on exertion Sleep apnea Type 2 diabetes mellitus Wears glasses Home Medications magnesium gluconate 12.5 mg magnesium (250 mg) tablet 250 mg PO DAILY 01/28/21 [History Last Taken Unknown] citalopram 40 mg tablet 40 mg PO DAILY 05/05/21 [History Last Taken Unknown] clopidogrel 75 mg tablet 75 mg PO DAILY #90 tabs 05/05/21 [Rx Last Taken 12/28/21] ranolazine 1,000 mg tablet,extended release,12 hr 1,000 mg PO BID #180 tabs 05/05/21 [Rx Last Taken 12/29/21] ascorbate calcium (vitamin C) 500 mg tablet 500 mg PO DAILY 10/26/21 [History Last Taken Unknown] mecobalamin (vitamin B12) 5,000 mcg lozenge 5,000 mcg PO DAILY 10/26/21 [History Last Taken Unknown] red yeast rice 600 mg capsule 600 mg PO DAILY 10/26/21 [History Last Taken Unknown] semaglutide 0.25 mg or 0.5 mg (2 mg/1.5 mL) subcutaneous pen injector 0.25 mg (0.2 mL) subcut QWEEK #1.5 mL 12/28/21 [Rx Last Taken Unknown] sucralfate 1 gram tablet (Carafate) 1 g PO QACHS PRN Gastritis #60 tabs 01/25/22 [Rx Last Taken Unknown] metformin 500 mg tablet 500 mg PO BID 02/27/22 [History Last Taken Unknown] pregabalin 150 mg capsule 150 mg PO BID 02/27/22 [History Last Taken Unknown] albuterol sulfate 90 mcg/actuation aerosol inhaler (Ventolin HFA) 1 - 2 puff inhalation Q4H PRN PRN Wheezing #1 device 02/28/22 [Rx Last Taken Unknown] Allergy/AdvReac Type Severity Reaction Status Date / Time aspirin Allergy Rash Verified 02/28/22 10:41 banana Allergy Hives Verified 02/28/22 10:41 canagliflozin [From Invokana] Allergy Anaphylaxis Verified 02/28/22 10:41 kiwi Allergy Hives Verified 02/28/22 10:41 niacin Allergy Rash Verified 02/28/22 10:41 Penicillins [PCN] Allergy Hives Verified 02/28/22 10:41 Sulfa (Sulfonamide Allergy Hives Verified 02/28/22 10:41 Antibiotics) erythromycin base AdvReac Other Verified 02/28/22 10:41 [From Staticin] ethyl alcohol [From Staticin] AdvReac Other Verified 02/28/22 10:41 gemfibrozil [From Lopid] AdvReac Other Verified 02/28/22 10:41 ibuprofen AdvReac Upset Verified 02/28/22 10:41 Stomach levofloxacin [From Levaquin] AdvReac Upset Verified 02/28/22 10:41 Stomach lisinopril AdvReac cough Verified 02/28/22 10:41 losartan AdvReac cough Verified 02/28/22 10:41 propoxyphene AdvReac Upset Verified 02/28/22 10:41 [From Darvophuongt-N] Stomach spironolactone AdvReac hyperkalemi Verified 02/28/22 10:41 a Xhyaplt-JJM-LvE Reductase AdvReac unknown Verified 02/28/22 10:41 Inhibitor [Mwahpow-Pvl-Uja Reductase Inhibitor] tramadol AdvReac Other Verified 02/28/22 10:41 Family History Mother Heart disease Father Heart disease Diabetes Surgical History H/O coronary artery bypass surgery (10/2001) History of cataract surgery History of cholecystectomy History of colonoscopy with polypectomy History of coronary artery stent placement (08/29/17) History of hysterectomy History of left heart catheterization History of tonsillectomy Social History household members: spouse Smoking Status: Former smoker how long ago did patient quit smokin alcohol intake: current alcohol intake frequency: holidays/special occasions only Alcohol type: beer substance use type: does not use what type of physical activity do you participate in: walking frequency: 5-6 times per week ROS ROS ED ROS Narrative Constitutional: Resolved fever, no chills. HEENT: No sore throat. No neck pain. No loss of vision. No rhinorrhea. Cardiovascular: Central chest pain with coughing. No palpitations. No pedal edema. Respiratory: Positive cough, positive shortness of breath. Abdominal: No abdominal pain. No nausea. No vomiting. Genitourinary: No dysuria. No hematuria. States urinating more when she has to cough. Musculoskeletal: No myalgias. No arthralgias. Neurologic: No headaches. Intermittent dizziness/lightheadedness. Skin: No rash. No change in color. Psychiatric: No depression. No anxiety. EXAM Physical Exam Narrative Exam Narrative: Afebrile. Vital signs noted. HEENT: Normocephalic. Atraumatic. PERRL, EOMI. Neck soft and supple. No point tenderness or step off. Cardiovascular: Regular rate and rhythm. No murmurs, rubs, or gallops appreciated. Respiratory: No tachypnea. Occasional expiratory wheezing bilateral bases, left greater than right. Dry cough on examination. Gastrointestinal: Abdomen soft, nontender, with normoactive bowel sounds. No rebound or guarding. Neurological: Awake. Alert. Nonfocal, nonlateralizing. Skin: No rash. Normal color. No pallor. Musculoskeletal: No pedal edema. Full range of motion extremities. Const Vital Signs: 02/28/22 10:41 02/28/22 11:17 02/28/22 11:02 Temperature 99 F Temperature Source Temporal Pulse Rate 53 L 63 Respiratory Rate 22 H 18 Respiratory Effort Short of Breath Respiratory Depth Normal Respiratory Pattern Normal Blood Pressure 157/63 H Blood Pressure Mean 94 Pulse Ox 100 Oxygen Delivery Method Room Air Room Air 02/28/22 11:02 Temperature Temperature Source Pulse Rate Respiratory Rate Respiratory Effort Respiratory Depth Respiratory Pattern Blood Pressure Blood Pressure Mean Pulse Ox 97 Oxygen Delivery Method Room Air MDM MDM MDM Narrative Medical decision making narrative: I feel her symptoms are more consistent with bronchitis. She was swabbed for COVID and influenza. Chest x-ray was obtained in 2 views. I did get basic laboratory work because she states that at times she is dizzy. Her blood work is grossly unremarkable with a normal CBC, normal white count of 5.5, electrolyte panel grossly unremarkable except for glucose appropriately elevated at 202 with a normal anion gap of 6. EKG interpreted by myself demonstrates normal sinus rhythm at 54 bpm without ectopy or acute ST changes. No STEMI. Chest x-ray interpreted by myself shows no acute process, no pneumonia. I do not feel antibiotics are indicated. Her respiratory swabs are negative for COVID and influenza. She was given a DuoNeb aerosolized treatment. Upon repeat examination she states she feels improved. She was given a prescription for an albuterol inhaler, and a note to be off work today and tomorrow. I feel she be discharged safely home with follow-up. Return instructions to the emergency department were reviewed. Disposition is discharged home in stable condition. Lab Data Labs: Laboratory Results - last 24 hr 02/28/22 02/28/22 11:10 11:10 WBC 5.5 RBC 4.68 Hgb 13.7 Hct 41.9 MCV 89.5 MCH 29.3 MCHC 32.7 RDW Std Deviation 42.9 RDW Coeff of Nancy 13.1 Plt Count 231 MPV 11.3 Immature Gran % (Auto) 0.500 Neut % (Auto) 59.6 Lymph % (Auto) 29.2 Bull[place] % (Auto) 8.5 Eos % (Auto) 1.8 Baso % (Auto) 0.4 Absolute Neuts (auto) 3.3 Absolute Lymphs (auto) 1.62 Nucleated RBC % 0 Platelet Estimate ADEQUATE RBC Morphology NORM C+C Sodium 138 Potassium 4.4 Chloride 103 Carbon Dioxide 29.0 Anion Gap 6 BUN 12 Creatinine 0.94 Estim Creat Clear Calc 52.26 Est GFR (MDRD) Af Amer 77 Est GFR (MDRD) Non-Af 63 BUN/Creatinine Ratio 12.8 Glucose 202 H Calcium 9.2 Radiography Diagnostic Testing: Clinical Impression(s) from Imaging Studies Chest X-Ray 02/28/22 11:25 IMPRESSION: No acute abnormalities present. Electronically Signed: Ever Ling MD at 11:59 EDT , Discharge Plan Triage Chief Complaint: Shortness of Breath ED Provider: Onofre Stoll Dx/Rx/DC Orders Clinical Impression: Bronchitis, SOB (shortness of breath) Instructions: ED Bronchitis with Wheezing (Adult), ED Dyspnea Prescriptions: New albuterol sulfate [Ventolin HFA] 90 mcg/actuation HFA aerosol inhaler 1 - 2 puff inhalation Q4H PRN PRN (Reason: Wheezing) Qty: 1 0RF No Action citalopram 40 mg tablet 40 mg PO DAILY clopidogrel 75 mg tablet 75 mg PO DAILY Qty: 90 3RF Label Comments: PT TO NOT TAKE DAY OF PROCEDURE ONLY ranolazine 1,000 mg tablet extended release 12 hr 1,000 mg PO BID Qty: 180 3RF red yeast rice 600 mg capsule 600 mg PO DAILY Rx Instructions: give with meal/snack mecobalamin (vitamin B12) 5,000 mcg lozenge 5,000 mcg PO DAILY Rx Instructions: allow to dissolve in mouth OR may chew lightly before swallowing ascorbate calcium (vitamin C) 500 mg tablet 500 mg PO DAILY sucralfate [Carafate] 1 gram tablet 1 g PO QACHS PRN (Reason: Gastritis) Qty: 60 1RF semaglutide 0.25 mg or 0.5 mg(2 mg/1.5 mL) pen injector 0.25 mg subcut QWEEK Qty: 1.5 1RF Rx Instructions: for 4 doses metformin 500 mg tablet 500 mg PO BID Label Comments: TAKE ONE TABLET BY MOUTH TWICE DAILY @ 9AM & 5PM pregabalin 150 mg capsule 150 mg PO BID Label Comments: TAKE 1 CAPSULE BY MOUTH TWICE DAILY FOR 30 DAYS (TAKE ONE CAPSULE AT DINNER AND ONE CAPSULE BEFORE BED) magnesium gluconate 12.5 mg magne- sium (250 mg) Tablet 250 mg PO DAILY Stand Alone Forms: ED Work / School Excuse Primary Care Provider: Dot Garces Referrals: Dot Garces MD [Primary Care Provider] - 3-5 Days if not improving Disposition Disposition: Home, Self Care
[2022-02-28 11:02] VITALS: PULSE 63; RESP 18; O2SAT 97
[2022-02-28] MEDS: Ipratropium/Albuterol Sulfate 3 ML AMPUL.NEB INHALATION (11:02)
[2022-02-28 11:17] VITALS: O2SAT 95
--- NOTE | 2022-02-28 11:25 | RAD_ITS ---
STUDY: X-RAY CHEST REASON FOR EXAM: Female, 66 years old. Shortness of Breath TECHNIQUE: PA and lateral views of the chest. COMPARISON: Comparison is made with prior study of 10/23/2021. FINDINGS: The lungs are clear and expanded. There is no demonstrated pleural abnormality. Sternal cerclage wires and vascular clips are present from a prior sternotomy and coronary artery bypass graft procedure (CABG). Coronary artery stents are seen. Normal mediastinum and chago. Normal visualized pulmonary arteries. There is atherosclerotic calcification of the aortic arch with tortuosity. There are degenerative changes of the visualized thoracic spine. Normal visualized ribs, clavicles, and shoulders. There is no demonstrated abnormality of the visualized soft tissue structures of the upper abdomen. RAD/Chest PA and Lateral IMPRESSION: No acute abnormalities present. Electronically Signed: Ever Ling MD at 11:59 EDT ,
[2022-02-28 11:31] LABS: Absolute Lymphocyte Count 1.62 X10^3/uL (0.83-4.51); Absolute Neutrophil Count 3.3 X10^3/uL (2.0-7.7); Basophil# 0.02 X10^3/uL; Basophil% 0.4 % (0-1); Eosinophils% 1.8 % (0-5); Hematocrit 41.9 % (37-47); Hemoglobin 13.7 g/dL (12.0-15.0); Lymphocyte # 1.62 X10^3/ul (0.83-4.51); Lymphocyte % 29.2 % (19-41); Mean Corp Hgb Conc 32.7 g/dL (32-36); Mean Corpuscular Hgb 29.3 pg (27.0-32.0); Mean Corpuscular Volume 89.5 fL (81-99); Mean Platelet Vol. 11.3 fl (6.2-12.0); Monocyte# 0.47 X10^3/uL; Monocyte% 8.5 % (0-10); NRBC Flagged by Analyzer 0 % (0-5); Neutrophil % 59.6 % (47-70); POSITIVE COUNT YES; Platelet Count 231 K/mm3 (150-450); RBC Distribution Width CV 13.1 % (11.6-14.6); RBC Distribution Width SD 42.9 fl (35.1-43.9); Red Blood Count 4.68 M/mm3 (4.2-5.4); White Blood Count 5.5 K/mm3 (4.4-11.0)
[2022-02-28 11:35] LABS: Anion Gap 6 (5-15); BUN 12 mg/dL (7-18); BUN/Creat Ratio 12.8 RATIO (10-20); Calcium,Total 9.2 mg/dL (8.5-10.1); Chloride 103 mmol/L (98-107); Creatinine, Serum 0.94 mg/dL (0.55-1.02); EST Glomerular Filtration Rate 63 mL/min (>60); Est Glom Filt Rate - Afr Amer 77 mL/min (>60); Estimated Creatinine Clearance 52.26 ml/min; Glucose 202 mg/dL (74-106); Potassium 4.4 mmol/L (3.5-5.1); Sodium Level 138 mmol/L (136-145)
[2022-02-28 12:04] LABS: Differential Indicated SCAN CRITERIA MET
[2022-02-28 12:11] LABS: Platelet Estimate ADEQUATE (ADEQ); Red Cell Morphology NORM C+C NORMAL (NORM C&C)
== END 2022-02-28 13:01 | disposition home or self-care (01) ==
PROVIDERS: Emergency Provider Emergency Medicine; PCP Internal Medicine; Visit Provider Emergency Medicine
DX: J40 Bronchitis, not specified as acute or chronic (principal); M06.9 Rheumatoid arthritis, unspecified; E11.40 Type 2 diabetes mellitus with diabetic neuropathy, unspecified; I25.10 Atherosclerotic heart disease of native coronary artery without angina pectoris; K21.9 Gastro-esophageal reflux disease without esophagitis; E78.00 Pure hypercholesterolemia, unspecified; Z87.19 Personal history of other diseases of the digestive system; D50.9 Iron deficiency anemia, unspecified; G43.909 Migraine, unspecified, not intractable, without status migrainosus; E66.9 Obesity, unspecified; G25.81 Restless legs syndrome; Z78.0 Asymptomatic menopausal state; F41.9 Anxiety disorder, unspecified; F32.A Depression, unspecified; Z79.899 Other long term (current) drug therapy; I10 Essential (primary) hypertension; I25.2 Old myocardial infarction; Z79.84 Long term (current) use of oral hypoglycemic drugs; Z79.02 Long term (current) use of antithrombotics/antiplatelets; Z95.1 Presence of aortocoronary bypass graft; Z87.891 Personal history of nicotine dependence; Z68.32 Body mass index [BMI] 32.0-32.9, adult
CPT/HCPCS: 71046; 80048; 85025; 87428; 93005; 94640; 99282

== ENCOUNTER → 2022-03-08 | Outpatient (CLI) | payer MEDICARE, MEDICAID, SELFPAY ==
--- NOTE | 2022-03-08 12:51 | CDU_ITS ---
Reason For Study: Headache, imbalance, dizziness Rt. Velocities/BP Lt. Velocities/BP Prox CCA 79.6/16.3 cm/sec. Prox CCA 74/17.6 cm/sec. Mid CCA 64.5/14.5 cm/sec. Mid CCA 55.6/15.1 cm/sec. Dist CCA 67.4/18.2 cm/sec. Dist CCA 74/17.6 cm/sec. Prox ICA 75.3/21.2 cm/sec. Prox ICA 102.3/24.9 cm/sec. Mid ICA 85.1/22.5 cm/sec. Mid ICA 88.8/28.6 cm/sec. Dist ICA 90/23.7 cm/sec. Dist ICA 96.1/28.6 cm/sec. Rt. ICA/CCA = 1.34. Lt. ICA/CCA = 1.38. Prox ECA 88.8/13.9 cm/sec. Prox ECA 64.2/11.4 cm/sec. Rt. Vert. 39.7/7.7 cm/sec. Lt. Vert. 58.1/15.1 cm/sec. Right Extracranial There is homogeneous, smooth atherosclerotic plaque noted in the right common carotid artery. There is heterogeneous, irregular atherosclerotic plaque noted in the right internal carotid artery. There is intimal thickening but no significant atherosclerotic plaque noted in the right external carotid artery. Antegrade flow is noted in the right vertebral artery. Left Extracranial There is homogeneous, smooth atherosclerotic plaque noted in the left common carotid artery. There is heterogeneous, irregular atherosclerotic plaque noted in the left internal carotid artery. There is intimal thickening but no significant atherosclerotic plaque noted in the left external carotid artery. Antegrade flow is noted in the left vertebral artery. Procedure Carotid Duplex 27419. This is a Carotid Duplex examination using B-mode, color flow and specral Doppler. Exam performed in department. VL/Carotid Duplex Ultrasound Interpretation Summary Minimal irregular plaque at the proximal right internal carotid artery with les s than 50% stenosis Less than 50% stenosis right external carotid artery Irregular plaque of the left common carotid and proximal internal carotid arter y with less than 50% stenosis of the internal carotid artery. Less than 50% stenosis left external carotid artery Patent antegrade vertebral arteries bilaterally Ordering Physician: Dot Garces Referring Physician: Dot Garces Performed By: Samantha Tyler RVT
== END | disposition home or self-care (01) ==
LOC: CVS 12:48
PROVIDERS: PCP Internal Medicine; Referring Provider Internal Medicine; Visit Provider Internal Medicine
DX: R42 Dizziness and giddiness (principal); E72.11 Homocystinuria; E11.9 Type 2 diabetes mellitus without complications; R26.89 Other abnormalities of gait and mobility; R51.9 Headache, unspecified; I25.810 Atherosclerosis of coronary artery bypass graft(s) without angina pectoris; E78.5 Hyperlipidemia, unspecified; I10 Essential (primary) hypertension; I65.29 Occlusion and stenosis of unspecified carotid artery
CPT/HCPCS: 93880

== ENCOUNTER → 2022-05-29 | Outpatient (CLI) | payer MEDICARE, MEDICAID, SELFPAY ==
[2022-05-29 09:08] LABS: Absolute Lymphocyte Count 2.03 X10^3/uL (0.83-4.51); Absolute Neutrophil Count 4.7 X10^3/uL (2.0-7.7); Basophil# 0.02 X10^3/uL; Basophil% 0.3 % (0-1); Eosinophil# 0.09 X10^3/uL; Eosinophils% 1.2 % (0-5); Hematocrit 41.5 % (37-47); Hemoglobin 13.8 g/dL (12.0-15.0); Lymphocyte # 2.03 X10^3/ul (0.83-4.51); Lymphocyte % 26.8 % (19-41); Mean Corp Hgb Conc 33.3 g/dL (32-36); Mean Corpuscular Hgb 30.1 pg (27.0-32.0); Mean Corpuscular Volume 90.6 fL (81-99); Mean Platelet Vol. 10.5 fl (6.2-12.0); Monocyte# 0.69 X10^3/uL; Monocyte% 9.1 % (0-10); NRBC Flagged by Analyzer 0 % (0-5); Neutrophil # 4.71 X10^3/uL (2.7-7.7); Neutrophil % 62.2 % (47-70); Platelet Count 250 K/mm3 (150-450); RBC Distribution Width SD 42.9 fl (35.1-43.9); Red Blood Count 4.58 M/mm3 (4.2-5.4); White Blood Count 7.6 K/mm3 (4.4-11.0)
[2022-05-29 09:27] LABS: Vitamin D,25 Hydroxy 16.4 ng/mL
[2022-05-29 09:40] LABS: ALB/GLOB Ratio 1.2 RATIO (0.9-2.4); AST(SGOT) 9 U/L (15-37); Alanine Aminotransfer ALT/SGPT 19 U/L (13-56); Albumin, Serum 3.7 g/dL (3.2-5.0); Alkaline Phosphatase 68 U/L (45-117); Anion Gap 4 (5-15); BUN 10 mg/dL (7-18); BUN/Creat Ratio 12.1 RATIO (10-20); Calcium,Total 9.1 mg/dL (8.5-10.1); Chloride 103 mmol/L (98-107); Cholesterol 253 mg/dL (200); Creatinine, Serum 0.82 mg/dL (0.55-1.02); EST Glomerular Filtration Rate 73 mL/min (>60); Est Glom Filt Rate - Afr Amer 89 mL/min (>60); Globulin 3.2 g/dL (2.2-4.2); Glucose 193 mg/dL (74-106); High Density Lipoprotein 39 mg/dL; Potassium 4.2 mmol/L (3.5-5.1); Protein, Total 6.9 g/dL (6.4-8.2); Sodium Level 139 mmol/L (136-145); Thyroid Stim Hormone (TSH) 3.26 uIU/mL (0.358-3.74); Triglycerides 305 mg/dL; Very Low Density Lipoprotein 61 mg/dL (5-40)
== END | disposition home or self-care (01) ==
LOC: LAB 08:45
PROVIDERS: PCP Internal Medicine; Referring Provider Internal Medicine; Visit Provider Internal Medicine
DX: I25.10 Atherosclerotic heart disease of native coronary artery without angina pectoris (principal); E72.11 Homocystinuria; E11.9 Type 2 diabetes mellitus without complications; I25.810 Atherosclerosis of coronary artery bypass graft(s) without angina pectoris; Z95.1 Presence of aortocoronary bypass graft; I10 Essential (primary) hypertension; E78.5 Hyperlipidemia, unspecified; E66.9 Obesity, unspecified; E55.9 Vitamin D deficiency, unspecified
CPT/HCPCS: 36415; 80053; 80061; 82306; 84443; 85025

== ENCOUNTER → 2022-10-23 | Outpatient (CLI) | payer MEDICARE, MEDICAID, SELFPAY ==
--- NOTE | 2022-10-23 10:05 | RAD_ITS ---
STUDY: X-RAY CHEST REASON FOR EXAM: Female, 67 years old. SOB TECHNIQUE: Frontal and lateral views of the chest. COMPARISON: 02/28/2022. FINDINGS: The lungs are clear and expanded. There is no demonstrated pleural abnormality. Sternal cerclage wires and vascular clips are present from a prior sternotomy and coronary artery bypass graft procedure (CABG). Normal mediastinum and chago. Normal visualized pulmonary arteries. Normal visualized aortic arch and descending thoracic aorta. There are diffuse degenerative changes of the visualized thoracic spine. Normal visualized ribs, clavicles, and shoulders. There is no demonstrated abnormality of the visualized soft tissue structures of the upper abdomen. RAD/Chest PA and Lateral IMPRESSION: No definite acute or significant abnormality seen. Electronically Signed: Shane Medeiros MD at 18:38 EDT ,
[2022-10-23 11:24] LABS: Absolute Lymphocyte Count 1.53 X10^3/uL (0.83-4.51); Absolute Neutrophil Count 3.5 X10^3/uL (2.0-7.7); Basophil# 0.03 X10^3/uL; Basophil% 0.5 % (0-1); Eosinophil# 0.07 X10^3/uL; Eosinophils% 1.2 % (0-5); Hematocrit 43.5 % (37-47); Hemoglobin 13.5 g/dL (12.0-15.0); Lymphocyte # 1.53 X10^3/ul (0.83-4.51); Mean Corpuscular Hgb 28.7 pg (27.0-32.0); Mean Corpuscular Volume 92.6 fL (81-99); Mean Platelet Vol. 11.6 fl (6.2-12.0); Monocyte# 0.72 X10^3/uL; Monocyte% 12.2 % (0-10); NRBC Flagged by Analyzer 0 % (0-5); Neutrophil % 59.4 % (47-70); Platelet Count 226 K/mm3 (150-450); RBC Distribution Width CV 13.7 % (11.6-14.6); RBC Distribution Width SD 47.2 fl (35.1-43.9); White Blood Count 5.9 K/mm3 (4.4-11.0)
[2022-10-23 11:53] LABS: BNP,B-Type NATRIURETIC PEPTIDE 21.5 pg/mL (0-100)
[2022-10-23 12:01] LABS: Vitamin D,25 Hydroxy 56.3 ng/mL
[2022-10-23 12:10] LABS: Anion Gap 7 (5-15); BUN 9 mg/dL (7-18); BUN/Creat Ratio 10.5 RATIO (10-20); Calcium,Total 8.7 mg/dL (8.5-10.1); Chloride 105 mmol/L (98-107); Creatinine, Serum 0.86 mg/dL (0.55-1.02); EST Glomerular Filtration Rate 70 mL/min (>60); Est Glom Filt Rate - Afr Amer 85 mL/min (>60); Glucose 234 mg/dL (74-106); Sodium Level 137 mmol/L (136-145); Thyroid Stim Hormone (TSH) 2.45 uIU/mL (0.358-3.74)
== END | disposition home or self-care (01) ==
PROVIDERS: PCP Internal Medicine; Referring Provider Nurse Practitioner Gerontology; Visit Provider Nurse Practitioner Gerontology
DX: R06.00 Dyspnea, unspecified (principal); E55.9 Vitamin D deficiency, unspecified; R53.83 Other fatigue
CPT/HCPCS: 36415; 71046; 80048; 82306; 83880; 84443; 85025

== ENCOUNTER → 2022-11-07 | Outpatient (CLI) | payer MEDICARE, MEDICAID, SELFPAY ==
--- NOTE | 2022-11-07 06:03 | ECHOCS_ITS ---
Reason For Study: CHEST PAIN, SOB Procedure This was a 2D Doppler, Color Flow transthoracic echocardiogram. The study was technically difficult. Due to poor apical windows. Contrast injection was performed. Exam performed in department. Left Ventricle Normal LV size. Left ventricular systolic function is normal. The estimated ejection fraction is 60 %. No regional wall motion abnormalities noted. Right Ventricle Normal RV size. Normal systolic function. Atria The left atrium is mildly enlarged. Normal right atrium. Mitral Valve Normal mitral valve. Tricuspid Valve Normal tricuspid valve. Mild tricuspid valve insufficiency. Pulmonary artery systolic pressure is 30 mmHg. Aortic Valve Trisinus/trileaflet aortic valve. Pulmonic Valve Normal pulmonic valve. Great Vessels Normal aortic root. The pulmonary artery is normal size. Normal inferior vena cava. Pericardium/Pleural No pericardial effusion. Medication Diluted definity 3.0ml given slow IV push to enhance endocardial definition. MMode/2D Measurements & Calculations LVIDd: 5.2 cm IVSd: 0.82 cm LVOT diam: 2.0 cm LVIDs: 3.3 cm LVPWd: 0.90 cm RVDd: 3.1 cm FS: 36.7 % LVOT area: 3.0 cm2 Ao root diam: 2.9 cm LAV(MOD-bp): 82.7 ml LVAd ap4: 34.2 cm2 LAV(MOD-bp) Indexed: 41.3 ml/m2 LVLd ap4: 9.1 cm LAV(MOD-sp2): 82.3 ml EDV(MOD-sp4): 106.3 ml LAV(MOD-sp4): 82.3 ml EDV(sp4-el): 108.3 ml LVAs ap4: 17.8 cm2 LVLs ap4: 7.2 cm ESV(MOD-sp4): 38.5 ml ESV(sp4-el): 37.3 ml EF(MOD-sp4): 63.7 % EF(sp4-el): 65.6 % LVAd ap2: 27.1 cm2 SV(MOD-sp4): 67.7 ml SV(MOD-sp2): 48.2 ml LVLd ap2: 8.8 cm EDV(MOD-sp2): 71.0 ml EDV(sp2-el): 70.6 ml LVAs ap2: 13.7 cm2 LVLs ap2: 7.5 cm ESV(MOD-sp2): 22.8 ml ESV(sp2-el): 21.1 ml EF(MOD-sp2): 67.9 % SV(sp4-el): 71.0 ml LA dimension(2D): 3.8 cm LA A4 area: 24.2 cm2 RA A4 area: 17.3 cm2 Time Measurements MV dec time: 0.28 sec Doppler Measurements & Calculations MV E max juan jose: 98.6 cm/sec Lat Peak E' Juan Jose: 12.1 cm/sec Med Peak E' Juan Jose: 6.4 cm/sec MV A max juan jose: 86.8 cm/sec E/E' lat: 8.1 E/E' med: 15.4 MV E/A: 1.1 MV V2 max: 101.7 cm/sec MV P1/2t max juan jose: 102.4 cm/sec Ao V2 max: 220.1 cm/sec MV max P.1 mmHg MV P1/2t: 85.9 msec Ao max P.4 mmHg MV V2 mean: 44.7 cm/sec Ao V2 mean: 142.3 cm/sec MV mean P.0 mmHg MV dec slope: 349.2 cm/sec2 Ao mean P.3 mmHg MV V2 VTI: 39.5 cm MVA(P1/2t): 2.6 cm2 Ao V2 VTI: 58.3 cm AV (velocity ratio): 0.64 MVA(VTI): 2.9 cm2 ROBERT(I,D): 1.9 cm2 ROBERT(V,D): 1.9 cm2 LV V1 max: 137.8 cm/sec SV(LVOT): 113.7 ml PA V2 max: 124.4 cm/sec LV V1 max P.6 mmHg PA V2 mean: 87.3 cm/sec LV V1 mean P.1 mmHg LV V1 mean: 95.9 cm/sec LV V1 VTI: 37.6 cm PI dec slope: 135.9 cm/sec2 TR max juan jose: 262.6 cm/sec TR max P.6 mmHg ECHO/Echo Complete W/ Contrast Interpretation Summary Normal LV size. Left ventricular systolic function is normal. The estimated ejection fraction is 60 %. The left atrium is mildly enlarged. Pulmonary artery systolic pressure is 30 mmHg. Contrast injection was performed. Ordering Physician: Sofy Snow Referring Physician: Davis Carney Performed By: Patricia Bahena, DENISHA, RVT
--- NOTE | 2022-11-07 17:55 | STRESSREP ---
Stress Test Report Pharmacologic myocardial perfusion stress test. 67-year-old lady with a history of shortness of breath Resting EKG demonstrates sinus bradycardia with a rate of 45 bpm. Resting blood pressure is 162/74 mmHg. 0.4 mg of regadenoson was infused per usual protocol followed by rapid intravenous saline flush injection. Continuous EKG monitoring was performed. The maximum heart rate was 85 bpm which was 55% of max impacted heart rate the maximum workload was 1 metabolic equivalent. At rest there were no ST or T wave changes noted to suggest ischemia and at peak infusion nonspecific ST changes were noted which did not meet the criteria for ischemia. No clinical angina is noted. The final blood pressure was 138/70 mmHg. Myocardial perfusion protocol. 14.6 mCi of technetium 99m sestamibi was injected at rest. 0.4 mg of regadenoson was infused per usual protocol. At peak infusion 44.7 mCi of technetium 99m sestamibi was injected stress images were obtained stress and rest images were reconstructed and compared in the short axis vertical long and horizontal long axis. Gated images were also obtained. Perfusion SPECT analysis: Review of the stress images demonstrate normal uptake of tracer noted in all areas of the myocardium. The resting images similar demonstrated normal uptake of tracer noted in all areas of the myocardium. No areas of reversibility are noted to suggest ischemia and no previous infarct is noted. Gated SPECT analysis: The gated ejection fraction is 80%. Conclusion: Normal pharmacologic myocardial perfusion stress test. Preserved ejection fraction.
== END | disposition home or self-care (01) ==
LOC: CVS 06:02
PROVIDERS: PCP Family Medicine; Referring Provider Nurse Practitioner Gerontology; Visit Provider Nurse Practitioner Gerontology
DX: R06.00 Dyspnea, unspecified (principal); R06.02 Shortness of breath; I25.10 Atherosclerotic heart disease of native coronary artery without angina pectoris; Z95.1 Presence of aortocoronary bypass graft
CPT/HCPCS: 78452; 93017; 93306; A9500; Q9957; A4216; C8929; J0153; J2785

== ENCOUNTER 2023-01-21 19:49 | Emergency (ER) | payer MEDICARE, MEDICAID, SELFPAY ==
[2023-01-21 19:49] VITALS: BP 178/77; PULSE 58; RESP 16; TEMP 36.8; O2SAT 97; BMI 34.4
--- NOTE | 2023-01-21 20:00 | CT_ITS ---
STUDY: CT BRAIN WITHOUT CONTRAST REASON FOR EXAM: Female, 67 years old. trauma RADIATION DOSAGE (If Supplied By Facility): CTDIvol = ( 44.99 ) mGy, DLP = ( 812.98 ) mGycm TECHNIQUE: Transaxial CT imaging of the brain was performed without administration of intravenous contrast material. Individualized dose optimization techniques were used for this CT. COMPARISON: December 03, 2021 CT abdomen and pelvis FINDINGS: Normal soft tissue structures. Normal calvarium. Normal size ventricles and extra-axial spaces for the patient''s age. Normal white matter tracts of the cerebral hemispheres. Normal basal ganglia and thalami. Normal brainstem. Normal cerebellum. There is no intracranial hemorrhage. There are no findings of an acute ischemic infarction. Normal visualized paranasal sinuses. CT/Brain/Head without Contrast IMPRESSION: Normal unenhanced CT scan of the brain. Electronically Signed: Cipriano Russell MD at 20:30 EDT ,
--- NOTE | 2023-01-21 20:04 | EX.ED.DYSGE1 ---
HPI History of Present Illness Chief Complaint: Ear Problem Informant: patient and spouse/S.O. Narrative Narrative: 67-year-old female presenting to the emergency room with a head injury. Patient states that she fell in her bedroom striking her left ear and head on the nightstand. No loss of consciousness. She is on Plavix for coronary artery disease. She notes a laceration behind her ear as well as contusion of the ear itself. She states that she has a headache and feels dizzy. No vomiting. No seizure or loss of consciousness noted. Patient notes her last tetanus has been within the last 10 years. She denies any significant neck pain. No other injuries per patient. The patient notes that she is currently awaiting her test results from the COVID swab earlier in the day. [facility] Medical History Acute kidney failure Alcohol use Ambulates with cane Anemia Anxiety and depression Arthritis Atherosclerosis of coronary artery 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 Atherosclerotic heart disease of [place] coronary artery without angina pectoris Back pain Blackout Cardiology follow-up encounter Chest pain Concussion COVID CPAP (continuous positive airway pressure) dependence Diabetes Difficulty chewing Difficulty swallowing Epigastric pain Essential hypertension Former smoker Gastric reflux GERD (gastroesophageal reflux disease) Headache Hiatal hernia High cholesterol History of diverticulitis History of echocardiogram History of heart attack History of irregular heartbeat History of stress test Hyperhomocystinemia Hyperlipidemia Imbalance Injury of back Injury of head and neck Iron deficiency anemia Lymphedema Migraine headache Narcolepsy Obesity Obstructive sleep apnea Peripheral neuropathy Post-menopausal Proliferative diabetic retinopathy Restless legs Restless legs syndrome (RLS) Rheumatoid arthritis Shortness of breath on exertion Sleep apnea Type 2 diabetes mellitus Wears glasses Home Medications magnesium gluconate 12.5 mg magnesium (250 mg) tablet 250 mg PO DAILY 01/28/21 [History Last Taken Unknown] ascorbate calcium (vitamin C) 500 mg tablet 500 mg PO DAILY 10/26/21 [History Last Taken Unknown] mecobalamin (vitamin B12) 5,000 mcg lozenge 5,000 mcg PO DAILY 10/26/21 [History Last Taken Unknown] red yeast rice 600 mg capsule 600 mg PO DAILY 10/26/21 [History Last Taken Unknown] pregabalin 150 mg capsule 150 mg PO BID 02/27/22 [History Last Taken Unknown] clopidogrel 75 mg tablet 75 mg PO DAILY #90 tabs 04/12/22 [Rx Last Taken Unknown] cholecalciferol (vitamin D3) 25 mcg (1,000 unit) capsule 25 mcg PO DAILY 06/04/22 [History Last Taken Unknown] isosorbide mononitrate 30 mg tablet,extended release 24 hr 30 mg PO DAILY #30 tabs 06/25/22 [Rx Last Taken Unknown] ranolazine 1,000 mg tablet,extended release,12 hr 1,000 mg PO BID #180 tabs 06/25/22 [Rx Last Taken Unknown] semaglutide 0.25 mg or 0.5 mg (2 mg/1.5 mL) subcutaneous pen injector (Ozempic) See Rx Instructions .Route .COMPLEX #2 mL 07/19/22 [Rx Last Taken Unknown] citalopram 40 mg tablet 40 mg PO DAILY #90 tabs 08/22/22 [Rx Last Taken Unknown] nitroglycerin 0.4 mg sublingual tablet 0.4 mg sublingual Q5-15M PRN chest pain #25 tabs 10/15/22 [Rx Last Taken Unknown] metformin 500 mg tablet 1,000 mg PO BID 01/21/23 [History Last Taken Unknown] pregabalin 150 mg capsule (Lyrica) 150 mg PO BID #14 caps 01/21/23 [Rx Last Taken Unknown] Allergy/AdvReac Type Severity Reaction Status Date / Time aspirin Allergy Rash Verified 01/21/23 19:51 banana Allergy Hives Verified 01/21/23 19:51 canagliflozin [From Invokana] Allergy Anaphylaxis Verified 01/21/23 19:51 kiwi Allergy Hives Verified 01/21/23 19:51 niacin Allergy Rash Verified 01/21/23 19:51 Penicillins [PCN] Allergy Hives Verified 01/21/23 19:51 Sulfa (Sulfonamide Allergy Hives Verified 01/21/23 19:51 Antibiotics) erythromycin base AdvReac Other Verified 01/21/23 19:51 [From Staticin] ethyl alcohol [From Staticin] AdvReac Other Verified 01/21/23 19:51 gemfibrozil [From Lopid] AdvReac Other Verified 01/21/23 19:51 ibuprofen AdvReac Upset Verified 01/21/23 19:51 Stomach levofloxacin [From Levaquin] AdvReac Upset Verified 01/21/23 19:51 Stomach lisinopril AdvReac cough Verified 01/21/23 19:51 losartan AdvReac cough Verified 01/21/23 19:51 propoxyphene AdvReac Upset Verified 01/21/23 19:51 [From Darvocet-N] Stomach spironolactone AdvReac hyperkalemi Verified 01/21/23 19:51 a Ksdmbon-UPK-WjB Reductase AdvReac unknown Verified 01/21/23 19:51 Inhibitor [Lqbnqzh-Eus-Zjd Reductase Inhibitor] tramadol AdvReac Other Verified 01/21/23 19:51 Family History Mother Heart disease Father Heart disease Diabetes Surgical History H/O coronary artery bypass surgery (10/2001) History of cataract surgery History of cholecystectomy History of colonoscopy with polypectomy History of coronary artery stent placement (08/29/17) History of hysterectomy History of left heart catheterization History of tonsillectomy Social History household members: spouse Smoking Status: Former smoker how long ago did patient quit smokin alcohol intake: current alcohol intake frequency: holidays/special occasions only Alcohol type: beer substance use type: does not use what type of physical activity do you participate in: walking frequency: 5-6 times per week ROS ROS ED Constitutional Constitutional ED: Denies chills or weight loss Eyes Eyes: Denies change in vision or diplopia ENT ENT ED: Reports ear pain, rhinorrhea and sore throat Cardiovascular Cardiovascular: Denies chest pain, orthopnea, palpitations or racing heartbeat Respiratory/Chest Respiratory/Chest: Reports cough and dyspnea; Denies orthopnea Gastrointestinal Gastrointestinal: Denies abdominal pain, diarrhea, nausea or vomiting Genitourinary Genitourinary ED: Denies dysuria, hematuria or urinary frequency Musculoskeletal Musculoskeletal: Denies arthralgias or myalgias Integumentary Reports other Details: Ear laceration ; Denies abscess or rash Neurologic Neurologic: Reports headache(s) and other Details: Dizziness ; Denies weakness Psychiatric Psychiatric: Denies anxiety, depression, suicidal ideation or suicidal thoughts Endocrine Endocrinology: Denies polydipsia, polyphagia or polyuria Allergic/Immunologic Allergic/Immunologic ED: Denies mouth swelling, tongue swelling or urticaria EXAM Physical Exam Const Vital Signs: 01/21/23 19:49 Temperature 98.2 F Temperature Source Temporal Pulse Rate 58 L Respiratory Rate 16 Blood Pressure 178/77 H Blood Pressure Mean 110 Pulse Ox 97 Oxygen Delivery Method Room Air Positive well nourished and well developed General Appearance ED: well developed HEENT Reports normocephalic, head/scalp atraumatic and moist mucous membranes HEENT Narrative: There is contusion of the left auricle. External ear canal appears normal. Left tympanic membrane appears normal. There is a 2 cm curvilinear laceration posterior scalp just behind the left ear. There is a second laceration 1.5 cm on the posterior ear itself that is gaping. There is no significant tense hematoma felt along the cartilage. Eyes PERRL and EOMs intact bilaterally Neck no lymphadenopathy, supple and no JVD Resp normal respiratory effort and clear to auscultation bilaterally Cardio regular rate, regular rhythm and no murmurs GI normal to inspection, nondistended, normoactive bowel sounds and non-tender Palpation: soft Back/Spine no CVA tenderness and normal ROM Extremity normal to inspection General Extremety ED: Negative for edema General Extremity: Negative for edema Neuro oriented x3 and CN's II-XII intact bilaterally Sensorium / Orientation: alert Motor Exam: strength 5/5 throughout Psych mental status grossly normal Mood & Affect: Negative for depressed or tearful Skin no rashes or lesions noted and no wounds MDM MDM MDM Narrative Medical decision making narrative: CT of the brain was obtained and reviewed and interpreted by myself does not demonstrate any intracranial hemorrhage. This was read by radiology and concurs. The wounds were locally anesthetized 1% lidocaine. They were washed with Shur-Clens and explored. 3 simple interrupted 5-0 sutures were applied to each laceration with good wound approximation. Wound care was discussed with the patient. Stitches will need to be removed in 5 to 7 days. I reevaluated the ear and there is still no substantial hematoma that would warrant draining. The tissue is contused at this time. Near the time of discharge the patient states that one of the reasons that she fell is that she is overly tired. She states she is overly tired because she is out of her Lyrica for the past several days. This being Saturday she called her neurologist and the prescription has been lost. She states she is supposed to call her neurologist again tomorrow to see where the prescription was actually sent she was wondering if she could get Lyrica to help her sleep tonight. I think this is reasonable. I will talk with her pharmacy about pain being able to fill a short course. Radiography Diagnostic Testing: Clinical Impression(s) from Imaging Studies Brain CT 01/21/23 20:00 IMPRESSION: Normal unenhanced CT scan of the brain. Electronically Signed: Cipriano Russell MD at 20:30 EDT Reading Location ID and State: [address] [place] [address] , Service support , Discharge Plan Triage Chief Complaint: Ear Problem ED Provider: Mihir Urena Dx/Rx/DC Orders Clinical Impression: Contusion of ear, Laceration of scalp, Laceration of ear, Medication refill Instructions: ED Laceration: All Closures Prescriptions: New pregabalin [Lyrica] 150 mg capsule 150 mg PO BID Qty: 14 0RF Rx Instructions: Take 1 capsule at dinner and 1 capsule at bedtime No Action red yeast rice 600 mg capsule 600 mg PO DAILY Rx Instructions: give with meal/snack mecobalamin (vitamin B12) 5,000 mcg lozenge 5,000 mcg PO DAILY Rx Instructions: allow to dissolve in mouth OR may chew lightly before swallowing ascorbate calcium (vitamin C) 500 mg tablet 500 mg PO DAILY pregabalin 150 mg capsule 150 mg PO BID Patient Comments: TAKE 1 CAPSULE BY MOUTH TWICE DAILY FOR 30 DAYS (TAKE ONE CAPSULE AT DINNER AND ONE CAPSULE BEFORE BED) isosorbide mononitrate 30 mg tablet extended release 24 hr 30 mg PO DAILY Qty: 30 11RF ranolazine 1,000 mg tablet extended release 12 hr 1,000 mg PO BID Qty: 180 3RF cholecalciferol (vitamin D3) 25 mcg (1,000 unit) capsule 25 mcg PO DAILY magnesium gluconate 12.5 mg magne- sium (250 mg) Tablet 250 mg PO DAILY metformin 500 mg tablet 1,000 mg PO BID clopidogrel 75 mg tablet 75 mg PO DAILY Qty: 90 3RF Patient Comments: PT TO NOT TAKE DAY OF PROCEDURE ONLY Ozempic 0.25 mg or 0.5 mg(2 mg/1.5 mL) pen injector See Rx Instructions .ROUTE .COMPLEX Qty: 2 5RF Dose Instruction: INJECT 0.25MG SUBCUTANEOUSLY ONCE PER WEEK FOR 4 DOSES. Rx Instructions: INJECT 0.25MG SUBCUTANEOUSLY ONCE PER WEEK FOR 4 DOSES. citalopram 40 mg tablet 40 mg PO DAILY Qty: 90 3RF nitroglycerin 0.4 mg tablet, sublingual 0.4 mg sublingual Q5-15M PRN (Reason: chest pain) Qty: 25 3RF Rx Instructions: do not exceed 3 doses per episode Primary Care Provider: Redd Carney Referrals: Redd Carney MD [Primary Care Provider] - 5 Days for suture removal Disposition Disposition: Home, Self Care
[2023-01-21] MEDS: Lidocaine 1% (20 ml mdv) 20 ML Vial INFILT (20:07)
[2023-01-21] MEDS: Pregabalin 75 MG Capsule 150 MG PO (21:45)
[2023-01-21 22:04] VITALS: PULSE 82; RESP 18; O2SAT 96
== END 2023-01-21 22:06 | disposition home or self-care (01) ==
PROVIDERS: Emergency Provider Emergency Medicine; PCP Family Medicine; Visit Provider Emergency Medicine
DX: S01.01XA Laceration without foreign body of scalp, initial encounter (principal); E11.3599 Type 2 diabetes mellitus with proliferative diabetic retinopathy without macular edema, unspecified eye; M06.9 Rheumatoid arthritis, unspecified; E11.42 Type 2 diabetes mellitus with diabetic polyneuropathy; Z87.891 Personal history of nicotine dependence; I10 Essential (primary) hypertension; I25.10 Atherosclerotic heart disease of native coronary artery without angina pectoris; G47.33 Obstructive sleep apnea (adult) (pediatric); S01.312A Laceration without foreign body of left ear, initial encounter; E78.00 Pure hypercholesterolemia, unspecified; Z76.0 Encounter for issue of repeat prescription; G25.81 Restless legs syndrome; W17.89XA Other fall from one level to another, initial encounter; Y92.89 Other specified places as the place of occurrence of the external cause; Z79.02 Long term (current) use of antithrombotics/antiplatelets; Z79.899 Other long term (current) drug therapy; K21.9 Gastro-esophageal reflux disease without esophagitis
CPT/HCPCS: 12011; 12001; 70450; 99283

== ENCOUNTER 2023-04-27 10:30 | Inpatient (IN) | payer MEDICARE, MEDICAID, SELFPAY ==
[2023-04-27] VITALS (8 sets, daily range): BP systolic 116–173; BP diastolic 51–93; PULSE 56–70; RESP 14–18; TEMP 36.3–36.8; O2SAT 88–100; BMI 31.4; BMI 32.1
--- NOTE | 2023-04-27 10:41 | RAD_ITS ---
STUDY: X-RAY CHEST REASON FOR EXAM: Female, 68 years old. SOB TECHNIQUE: Single AP portable view of the chest. COMPARISON: None. FINDINGS: The lungs are clear and expanded. There is no demonstrated pleural abnormality. Sternal cerclage wires are present from a prior sternotomy. Normal mediastinum and chago. Normal visualized pulmonary arteries. There is atherosclerotic calcification of the aortic arch . Normal visualized thoracic spine. Normal visualized ribs, clavicles, and shoulders. There is no demonstrated abnormality of the visualized soft tissue structures of the upper abdomen. RAD/Chest 1 View (Portable) IMPRESSION: No acute cardiopulmonary disease. Electronically Signed: Nura Russell MD at 11:56 EST ,
--- NOTE | 2023-04-27 10:48 | EX.ED.DYSGE1 ---
HPI History of Present Illness Chief Complaint: Shortness of Breath Informant: patient Narrative Narrative: Patient presents secondary to concern for allergic reaction. She has had a URI for about the last 10 days. [facility] and was placed on doxycycline. She states that she has had this in the past, but does have multiple antibiotic allergies. She took a dose last evening and states she did not feel well after. About 1/2-hour after taking her morning dose today she felt like she had some slight tongue swelling and some shortness of breath. No rash or itching. She states she feels nauseated and has a headache. [facility] Medical History Acute kidney failure Alcohol use Ambulates with cane Anemia Anxiety and depression Arthritis Atherosclerosis of coronary artery 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 Atherosclerotic heart disease of [place] coronary artery without angina pectoris Back pain Blackout Cardiology follow-up encounter Chest pain Concussion COVID CPAP (continuous positive airway pressure) dependence Diabetes Difficulty chewing Difficulty swallowing Epigastric pain Essential hypertension Former smoker Gastric reflux GERD (gastroesophageal reflux disease) Headache Hiatal hernia High cholesterol History of diverticulitis History of echocardiogram History of heart attack History of irregular heartbeat History of stress test Hyperhomocystinemia Hyperlipidemia Imbalance Injury of back Injury of head and neck Iron deficiency anemia Lymphedema Migraine headache Narcolepsy Obesity Obstructive sleep apnea Peripheral neuropathy Post-menopausal Proliferative diabetic retinopathy Restless legs Restless legs syndrome (RLS) Rheumatoid arthritis Shortness of breath on exertion Sleep apnea Type 2 diabetes mellitus Wears glasses Home Medications magnesium gluconate 12.5 mg magnesium (250 mg) tablet 250 mg PO DAILY 01/28/21 [History Last Taken Unknown] ascorbate calcium (vitamin C) 500 mg tablet 500 mg PO DAILY 10/26/21 [History Last Taken Unknown] mecobalamin (vitamin B12) 5,000 mcg lozenge 5,000 mcg PO DAILY 10/26/21 [History Last Taken Unknown] red yeast rice 600 mg capsule 600 mg PO DAILY 10/26/21 [History Last Taken Unknown] pregabalin 150 mg capsule 150 mg PO BID 02/27/22 [History Last Taken Unknown] cholecalciferol (vitamin D3) 25 mcg (1,000 unit) capsule 25 mcg PO DAILY 06/04/22 [History Last Taken Unknown] isosorbide mononitrate 30 mg tablet,extended release 24 hr 30 mg PO DAILY #30 tabs 06/25/22 [Rx Last Taken Unknown] ranolazine 1,000 mg tablet,extended release,12 hr 1,000 mg PO BID #180 tabs 06/25/22 [Rx Last Taken Unknown] semaglutide 0.25 mg or 0.5 mg (2 mg/1.5 mL) subcutaneous pen injector (Ozempic) See Rx Instructions .Route .COMPLEX #2 mL 07/19/22 [Rx Last Taken Unknown] citalopram 40 mg tablet 40 mg PO DAILY #90 tabs 08/22/22 [Rx Last Taken Unknown] nitroglycerin 0.4 mg sublingual tablet 0.4 mg sublingual Q5-15M PRN chest pain #25 tabs 10/15/22 [Rx Last Taken Unknown] metformin 500 mg tablet 1,000 mg PO BID 01/21/23 [History Last Taken Unknown] ezetimibe 10 mg tablet 10 mg PO DAILY 03/11/23 [History Last Taken Unknown] losartan 25 mg tablet 25 mg PO DAILY 03/11/23 [History Last Taken Unknown] clopidogrel 75 mg tablet See Rx Instructions .Route .COMPLEX #90 tabs 03/15/23 [Rx Last Taken Unknown] Allergy/AdvReac Type Severity Reaction Status Date / Time aspirin Allergy Rash Verified 04/27/23 10:31 banana Allergy Hives Verified 04/27/23 10:31 canagliflozin [From Invokana] Allergy Anaphylaxis Verified 04/27/23 10:31 kiwi Allergy Hives Verified 04/27/23 10:31 niacin Allergy Rash Verified 04/27/23 10:31 Penicillins [PCN] Allergy Hives Verified 04/27/23 10:31 Sulfa (Sulfonamide Allergy Hives Verified 04/27/23 10:31 Antibiotics) erythromycin base AdvReac Other Verified 04/27/23 10:31 [From Staticin] ethyl alcohol [From Staticin] AdvReac Other Verified 04/27/23 10:31 gemfibrozil [From Lopid] AdvReac Other Verified 04/27/23 10:31 ibuprofen AdvReac Upset Verified 04/27/23 10:31 Stomach levofloxacin [From Levaquin] AdvReac Upset Verified 04/27/23 10:31 Stomach lisinopril AdvReac cough Verified 04/27/23 10:31 propoxyphene AdvReac Upset Verified 04/27/23 10:31 [From Darvocet-N] Stomach spironolactone AdvReac hyperkalemi Verified 04/27/23 10:31 a Xypeliv-NYV-WrD Reductase AdvReac unknown Verified 04/27/23 10:31 Inhibitor [Dbgjosg-Icn-Vel Reductase Inhibitor] tramadol AdvReac Other Verified 04/27/23 10:31 Family History Mother Heart disease Father Heart disease Diabetes Surgical History H/O coronary artery bypass surgery (10/2001) History of cataract surgery History of cholecystectomy History of colonoscopy with polypectomy History of coronary artery stent placement (08/29/17) History of hysterectomy History of left heart catheterization History of tonsillectomy Social History household members: spouse Smoking Status: Former smoker how long ago did patient quit smokin alcohol intake: current alcohol intake frequency: holidays/special occasions only Alcohol type: beer substance use type: does not use what type of physical activity do you participate in: walking frequency: 5-6 times per week ROS ROS ED Constitutional Constitutional ED: Denies chills or fever(s) Eyes Eyes: Denies change in vision or discharge from eye(s) ENT ENT ED: Reports other Details: Tongue swelling ; Denies discharge from eye(s), rhinorrhea or sore throat Cardiovascular Cardiovascular: Denies chest pain or palpitations Respiratory/Chest Respiratory/Chest: Reports dyspnea; Denies cough Gastrointestinal Gastrointestinal: Reports nausea; Denies abdominal pain or vomiting Genitourinary Genitourinary ED: Denies dysuria Musculoskeletal Musculoskeletal: Denies back pain or extremity pain Integumentary Denies Abrasions or rash Neurologic Neurologic: Reports headache(s); Denies weakness Psychiatric Psychiatric: Denies anxiety or depression Allergic/Immunologic Allergic/Immunologic ED: Denies lip swelling or urticaria EXAM Physical Exam Narrative Exam Narrative: Patient sitting upright at bedside in no acute distress. Speaking with a strong voice and tolerating secretions well. Const Vital Signs: 04/27/23 10:31 04/27/23 10:58 Temperature 98 F Temperature Source Temporal Pulse Rate 70 Respiratory Rate 14 Respiratory Effort Normal Respiratory Depth Normal Respiratory Pattern Normal Blood Pressure 173/83 H Blood Pressure Mean 113 Pulse Ox 99 Oxygen Delivery Method Room Air Room Air Positive well nourished and well developed General Appearance ED: well developed HEENT Reports moist mucous membranes HEENT Narrative: Posterior pharynx exam reveals sinus drainage. No significant edema or erythema. No appreciable tongue swelling. Eyes PERRL and EOMs intact bilaterally Neck supple Neck Narrative: Mild bilateral cervical lymphadenopathy. Chest Wall inspection of chest normal and palpation of chest normal Resp normal respiratory effort and clear to auscultation bilaterally Cardio regular rate and regular rhythm GI non-tender Palpation: soft Extremity normal to inspection Neuro oriented x3 and no sensory deficits noted Motor Exam: strength 5/5 throughout Psych mental status grossly normal Skin no rashes or lesions noted MDM MDM MDM Narrative Medical decision making narrative: Patient placed on cardiac monitor technician to observe her oxygen saturation level. Patient given Zofran, Solu-Medrol, and Pepcid. Patient was placed on cardiac monitor technician to monitor out her oxygen saturation, however nursing staff noted that her rhythm strip did not look normal. When we compared this to old EKGs it did appear to be an acute change. Formal twelve-lead EKG is obtained along with lab work and troponin. Chest x-ray obtained to evaluate for acute lung pathology, cardiac size, or mediastinal abnormality. History & Record Review Discussion w/independent historian: Patient Additional record(s) reviewed:: Prior outpatient record and Prior labs Lab Data Attestation: I reviewed the patient's lab results. Labs: Laboratory Results - last 24 hr 04/27/23 11:35 WBC 11.5 H RBC 4.67 Hgb 13.8 Hct 42.1 MCV 90.1 MCH 29.6 MCHC 32.8 RDW Std Deviation 44.8 H RDW Coeff of Nancy 13.4 Plt Count 263 MPV 11.0 Immature Gran % (Auto) 0.400 Neut % (Auto) 59.1 Lymph % (Auto) 26.5 Johnson % (Auto) 12.5 H Eos % (Auto) 1.1 Baso % (Auto) 0.4 Absolute Neuts (auto) 6.8 Absolute Lymphs (auto) 3.05 Nucleated RBC % 0 PT 14.1 INR 1.1 APTT 33.4 Sodium 135 L Potassium 3.3 L Chloride 98 Carbon Dioxide 32.0 Anion Gap 5 BUN 18 Creatinine 1.03 H Estim Creat Clear Calc 46.39 Est GFR (MDRD) Af Amer 68 Est GFR (MDRD) Non-Af 56 L BUN/Creatinine Ratio 17.5 Glucose 146 H Calcium 9.2 Magnesium 1.7 Troponin I High Sens 582 H* Radiography Chest X-Ray - ED: 1 View, Read by ED Physician, Chronic Changes and No Infiltrates Diagnostic Testing: Clinical Impression(s) from Imaging Studies Chest X-Ray 04/27/23 10:41 IMPRESSION: No acute cardiopulmonary disease. Electronically Signed: Nura Russell MD at 11:56 EST , EKG Initial EKG: Attestation: I personally reviewed and interpreted this EKG as follows: Interpretation: Sinus Rhythm (Sinus at 61 with significant T wave inversion. This is new change when compared to prior study. Prolonged QTc at 638.) Follow-up EKG: Attestation: I personally reviewed and interpreted this EKG as follows: Interpretation: Sinus Bradycardia (Sinus bradycardia at 56 with continued wide T wave inversion. Not significantly changed when compared to prior from today. QTc remains long at 634.) Treatment and Re-Evaluation :: Patient does feel better as far as her nausea is concerned. CBC was a white count 11.5 with normal differential. Chemistry studies reveal slightly low potassium at 3.3. Glucose is 146. Renal function is unremarkable but her troponin is elevated at 582. Portable chest x-ray per my interpretation reveals no acute findings. Radiology interpretation reviewed and agrees. EKG is abnormal as noted above. I was called back in the room stated the patient had had some chest pain. She states she had a very brief sharp pain to the left chest that is now resolved. I did review the cardiac monitor technician and there were no changes noted. Repeat EKG reveals no changes when compared to prior study earlier today. I spoke Dr. Mai. Patient be started on a heparin drip and admitted for cycling of enzymes. I will replace her potassium IV and add a magnesium level. Plan will be to perform a heart cath on Saturday unless her symptoms change of address clerk the weekend at which point she will have an emergent cath. Discharge Plan Dx/Rx/DC Orders Clinical Impression: Non-ST elevation [place] (NSTEMI), Acute electrocardiogram changes, Hypokalemia Disposition Disposition: Acute Care Hospital [facility]
[2023-04-27] MEDS: Ondansetron 4 MG/2 ML Vial IV (10:55)
[2023-04-27] MEDS: MethylPREDNISolone 125 MG/2 ML Vial IV (10:55)
--- NOTE | 2023-04-27 11:04 | EKG12_ITS ---
Test Reason : ACTUAL REPEAT Blood Pressure : / mmHG Vent. Rate : 056 BPM Atrial Rate : 056 BPM P-R Int : 160 ms QRS Dur : 104 ms QT Int : 658 ms P-R-T Axes : -10 037 179 degrees QTc Int : 634 ms Critical Test Result: Long QTc Sinus bradycardia ST & Marked T wave abnormality, consider anterolateral ischemia Prolonged QT Abnormal ECG Confirmed by CORINNE SON, ALIE ([id number]), clinical editor BARRY LOU ([id number]) on 05/08/2023 9:56:05 AM Referred By: Confirmed By:ALIE SUN MD
[2023-04-27] MEDS: Famotidine 200 MG/20 ML MDV 20 MG in 0.9% Normal Saline (Pres. free 8 ML 300 MG IV (11:14)
[2023-04-27 11:38] LABS: Absolute Lymphocyte Count 3.05 X10^3/uL (0.83-4.51); Absolute Neutrophil Count 6.8 X10^3/uL (2.0-7.7); Basophil# 0.05 X10^3/uL; Basophil% 0.4 % (0-1); Eosinophil# 0.13 X10^3/uL; Eosinophils% 1.1 % (0-5); Hematocrit 42.1 % (37-47); Hemoglobin 13.8 g/dL (12.0-15.0); Lymphocyte # 3.05 X10^3/ul (0.83-4.51); Lymphocyte % 26.5 % (19-41); Mean Corp Hgb Conc 32.8 g/dL (32-36); Mean Corpuscular Hgb 29.6 pg (27.0-32.0); Mean Corpuscular Volume 90.1 fL (81-99); Monocyte# 1.44 X10^3/uL; Monocyte% 12.5 % (0-10); NRBC Flagged by Analyzer 0 % (0-5); Neutrophil # 6.78 X10^3/uL (2.7-7.7); Neutrophil % 59.1 % (47-70); Platelet Count 263 K/mm3 (150-450); RBC Distribution Width CV 13.4 % (11.6-14.6); RBC Distribution Width SD 44.8 fl (35.1-43.9); Red Blood Count 4.67 M/mm3 (4.2-5.4); White Blood Count 11.5 K/mm3 (4.4-11.0)
[2023-04-27 12:04] LABS: Anion Gap 5 (5-15); BUN 18 mg/dL (7-18); BUN/Creat Ratio 17.5 RATIO (10-20); Calcium,Total 9.2 mg/dL (8.5-10.1); Chloride 98 mmol/L (98-107); Creatinine, Serum 1.03 mg/dL (0.55-1.02); EST Glomerular Filtration Rate 56 mL/min (>60); Est Glom Filt Rate - Afr Amer 68 mL/min (>60); Estimated Creatinine Clearance 46.39 ml/min; Glucose 146 mg/dL (74-106); Potassium 3.3 mmol/L (3.5-5.1); Sodium Level 135 mmol/L (136-145); Troponin-I HS 582 pg/mL (3.0-54.0)
--- NOTE | 2023-04-27 12:26 | EKG12_ITS ---
Test Reason : REPEAT Blood Pressure : / mmHG Vent. Rate : 061 BPM Atrial Rate : 061 BPM P-R Int : 160 ms QRS Dur : 102 ms QT Int : 634 ms P-R-T Axes : 000 042 190 degrees QTc Int : 638 ms Critical Test Result: Long QTc Normal sinus rhythm ST & Marked T wave abnormality, consider anterolateral ischemia Prolonged QT Abnormal ECG Confirmed by CORINNE SON, ALIE ([id number]), international editorial producer BARRY LOU ([id number]) on 05/08/2023 9:56:28 AM Referred By: Confirmed By:ALIE SUN MD
[2023-04-27 12:51] LABS: Magnesium 1.7 mg/dL (1.6-2.6)
[2023-04-27] MEDS: Potassium Chloride 10mEq/100mL 10 MEQ/100 ML IV.SOLN. 100 MEQ IV BOLUS ×4 (12:51→17:43)
[2023-04-27 12:54] LABS: International Normalized Ratio 1.1; Partial Thromboplast Time 33.4 Seconds (24.1-36.2); Prothrombin Time (Protime)PT. 14.1 SECONDS (11.7-14.9)
[2023-04-27] MEDS: Heparin Injection (Vial) 5,000 UNIT/ML VIAL 4000 UNIT IV (12:59)
[2023-04-27] MEDS: HEPARIN/D5w 25,000 UNITS 25,000 UNITS/250 ML IV.SOLN. 10 UNITS CONT INF (13:00)
--- NOTE | 2023-04-27 14:47 | HP.PCM.HOS_ITS ---
HPI - General General Date of Admission: 04/27/23 Date of Service: 04/27/23 Chief Complaint: Chest pain HPI Narrative ELSA PUGH, is a 68 F who presents to the emergency room at [facility] with shortness of breath and worsening upper respiratory symptoms, she went to urgent care yesterday and was placed on antibiotic, she stated that today she felt as if her tongue was swelling and she was short of breath. During her stay in the emergency room, she had an episode of sharp chest pain, she was on telemetry and the QRS complexes appear to show inverted T waves, an EKG was done which showed inverted T waves in leads I, aVL, and V1 through V6. Troponin was obtained and it was elevated, she states the chest discomfort was sharp in nature and it only lasted approximately 10 minutes. Further work-up in the emergency room included a chest x-ray which was unremarkable, blood cell count was elevated 11.5, sodium was slightly low at 135 and potassium was 3.3. Patient's creatinine was 1.03. Patient will be admitted to PCU for non-STEMI, cardiology was contacted by the emergency room physician and advised placing the patient on a heparin drip. The plan is for the patient to undergo heart catheterization on 04/29/2023. [facility] Medical History Acute kidney failure Alcohol use Ambulates with cane Anemia Anxiety and depression Arthritis Atherosclerosis of coronary artery 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 Atherosclerotic heart disease of [place] coronary artery without angina pectoris Back pain [facility] Cardiology follow-up encounter Chest pain Concussion COVID CPAP (continuous positive airway pressure) dependence Diabetes Difficulty chewing Difficulty swallowing Epigastric pain Essential hypertension Former smoker Gastric reflux GERD (gastroesophageal reflux disease) Headache Hiatal hernia High cholesterol History of diverticulitis History of echocardiogram History of heart attack History of irregular heartbeat History of stress test Hyperhomocystinemia Hyperlipidemia Imbalance Injury of back Injury of head and neck Iron deficiency anemia Lymphedema Migraine headache Narcolepsy Obesity Obstructive sleep apnea Peripheral neuropathy Post-menopausal Proliferative diabetic retinopathy Restless legs Restless legs syndrome (RLS) Rheumatoid arthritis Shortness of breath on exertion Sleep apnea Type 2 diabetes mellitus Wears glasses Home Medications magnesium gluconate 12.5 mg magnesium (250 mg) tablet 250 mg PO DAILY 01/28/21 [History Last Taken 04/26/23] ascorbate calcium (vitamin C) 500 mg tablet 500 mg PO DAILY 10/26/21 [History L ast Taken 04/26/23] mecobalamin (vitamin B12) 5,000 mcg lozenge 5,000 mcg PO DAILY 10/26/21 [History Last Taken 04/26/23] red yeast rice 600 mg capsule 600 mg PO DAILY 10/26/21 [History Last Taken 04/08] pregabalin 150 mg capsule 150 mg PO BID 02/27/22 [History Last Taken 04/26/23] cholecalciferol (vitamin D3) 25 mcg (1,000 unit) capsule 25 mcg PO DAILY 06/04/22 [History Last Taken 04/26/23] isosorbide mononitrate 30 mg tablet,extended release 24 hr 30 mg PO DAILY #30 tabs 06/25/22 [Rx Last Taken 04/27/23] ranolazine 1,000 mg tablet,extended release,12 hr 1,000 mg PO BID #180 tabs 06/25/22 [Rx Last Taken 04/27/23] citalopram 40 mg tablet 40 mg PO DAILY #90 tabs 08/22/22 [Rx Last Taken 05/09] nitroglycerin 0.4 mg sublingual tablet 0.4 mg sublingual Q5-15M PRN chest pain #25 tabs 10/15/22 [Rx Last Taken Unknown] metformin 500 mg tablet 1,000 mg PO BID 01/21/23 [History Last Taken 04/27/23] ezetimibe 10 mg tablet 10 mg PO DAILY 03/11/23 [History Last Taken 04/26/23] losartan 25 mg tablet 12.5 mg PO DAILY 03/11/23 [History Last Taken 04/27/23] clopidogrel 75 mg tablet See Rx Instructions .Route .COMPLEX #90 tabs 03/15/23 [Rx Last Taken 04/27/23] albuterol sulfate 90 mcg/actuation aerosol inhaler 1 puff inhalation Q6H PRN shortness of breath or wheezing 04/27/23 [History Last Taken Unknown] doxycycline monohydrate 100 mg capsule 100 mg PO Q12H 04/27/23 [History Last Taken 04/26/23] semaglutide 1 mg/dose (4 mg/3 mL) subcutaneous pen injector (Ozempic) 1 mg subcut QWEEK 04/27/23 [History Last Taken 04/25/23] Allergy/AdvReac Type Severity Reaction Status Date / Time aspirin Allergy Rash Verified 04/27/23 10:31 banana Allergy Hives Verified 04/27/23 10:31 canagliflozin [From Invokana] Allergy Anaphylaxis Verified 04/27/23 10:31 kiwi Allergy Hives Verified 04/27/23 10:31 niacin Allergy Rash Verified 04/27/23 10:31 Penicillins [PCN] Allergy Hives Verified 04/27/23 10:31 Sulfa (Sulfonamide Allergy Hives Verified 04/27/23 10:31 Antibiotics) erythromycin base AdvReac Other Verified 04/27/23 10:31 [From Staticin] ethyl alcohol [From Staticin] AdvReac Other Verified 04/27/23 10:31 gemfibrozil [From Lopid] AdvReac Other Verified 04/27/23 10:31 ibuprofen AdvReac Upset Verified 04/27/23 10:31 Stomach levofloxacin [From Levaquin] AdvReac Upset Verified 04/27/23 10:31 Stomach lisinopril AdvReac cough Verified 04/27/23 10:31 propoxyphene AdvReac Upset Verified 04/27/23 10:31 [From Darvocet-N] Stomach spironolactone AdvReac hyperkalemi Verified 04/27/23 10:31 a Ifxgnqn-QMJ-UjT Reductase AdvReac unknown Verified 04/27/23 10:31 Inhibitor [Bqluchl-Kpw-Nrz Reductase Inhibitor] tramadol AdvReac Other Verified 04/27/23 10:31 Family History Mother Heart disease Father Heart disease Diabetes Surgical History H/O coronary artery bypass surgery (10/2001) History of cataract surgery History of cholecystectomy History of colonoscopy with polypectomy History of coronary artery stent placement (08/29/17) History of hysterectomy History of left heart catheterization History of tonsillectomy Social History household members: spouse Smoking Status: Former smoker how long ago did patient quit smokin alcohol intake: current alcohol intake frequency: holidays/special occasions only Alcohol type: beer substance use type: does not use what type of physical activity do you participate in: walking frequency: 5-6 times per week ROS Constitutional Constitutional: Reports malaise; Denies anorexia, change in weight, chills, fatigue, fever(s), night sweats or weakness Eyes Eyes: Denies blurry vision, change in vision, discharge from eye(s) or eye pain ENT HEENT: Reports sore throat and other Details: Laryngitis Cardiovascular Cardiovascular: Denies chest pain, claudication, edema or palpitations Respiratory/Chest Respiratory/Chest: Reports dyspnea and shortness of breath with exertion; Denies cough, hemoptysis or shortness of breath at rest Gastrointestinal Gastrointestinal: Denies abdominal pain, constipation, diarrhea, hematemesis, hematochezia, melena, nausea or vomiting Genitourinary Genitourinary: Denies dysuria, hematuria, urinary frequency, urinary hesitancy, urinary incontinence or urinary urgency Musculoskeletal Musculoskeletal: Denies back pain, joint pain, joint stiffness, joint swelling, myalgias or neck pain Neurologic Neurologic: Denies abnormal gait, abnormal speech, confusion, disequilibrium, dizziness, focal weakness, headache(s), loss of vision, numbness, other visual disturbances, paresthesias, syncope or tingling Psychiatric Psychiatric: Denies anxiety, cognitive impairment, depression, irritability, mood swings or suicidal ideation Endocrine Endocrinology: Denies change in body appearance, cold intolerance, excessive sweating, heat intolerance, polydipsia or polyuria Hematologic/Lymphatic Hematologic/Lymphatic: Denies none, anemia, easy bleeding, easy bruising or lymphadenopathy Allergic/Immunologic Allergic/Immunologic: Denies rhinitis, urticaria, eczemia or asthma Vital Signs Vital Signs Vital Signs: 04/27/23 10:31 04/27/23 10:58 04/27/23 12:30 Temperature 98 F Temperature Source Temporal Pulse Rate 70 64 Respiratory Rate 14 16 Respiratory Effort Normal Respiratory Depth Normal Respiratory Pattern Normal Blood Pressure 173/83 H 136/55 H Blood Pressure Mean 113 82 Pulse Ox 99 95 Oxygen Delivery Method Room Air Room Air Room Air Oxygen Flow Rate (L/min) 04/27/23 13:00 04/27/23 13:09 04/27/23 13:09 Temperature Temperature Source Pulse Rate 61 61 Respiratory Rate 16 14 Respiratory Effort Respiratory Depth Respiratory Pattern Blood Pressure 122/93 H 122/93 H Blood Pressure Mean 102 102 Pulse Ox 88 96 96 Oxygen Delivery Method Room Air Nasal Cannula Oxygen Flow Rate (L/min) 2 04/27/23 14:27 Temperature Temperature Source Pulse Rate Respiratory Rate Respiratory Effort Respiratory Depth Respiratory Pattern Blood Pressure Blood Pressure Mean Pulse Ox Oxygen Delivery Method Nasal Cannula Oxygen Flow Rate (L/min) Weight Weight: 85.7 kg Body Mass Index (BMI) 31.4 Physical Exam Const alert, oriented x3, no apparent distress and healthy appearing Constitutional Narrative: Patient has hoarse speech General Appearance: cooperative, well kempt and well developed Orientation / Consciousness: awake, oriented to person, oriented to place and oriented to time HEENT normocephalic, head/scalp atraumatic, hearing grossly normal bilaterally and moist oral mucous membranes Eyes PERRL, EOMs intact bilaterally and conjunctivae normal Neck supple, no JVD, thyroid normal and no carotid bruits General: trachea midline Resp normal respiratory effort, no retractions, no use of accessory muscles and clear to auscultation bilaterally Auscultation: Negative for rales, rhonchi or wheezes Cardio regular rate, regular rhythm, S1 normal heart sound, S2 normal heart sound, no murmurs, no rub and no gallops GI normal to inspection, nondistended, normoactive bowel sounds, soft to palpation, non-tender and non-distended Extremity no clubbing, cyanosis or edema Skin no rashes or lesions noted General Skin Exam: no breakdown Neuro oriented x3, CN's II-XII intact bilaterally, moves all extremities, no focal motor deficits and no sensory deficits noted Sensorium / Orientation: awake, alert, oriented to person, oriented to place and oriented to time Speech: speech normal Psych affect normal Results Lab / Micro Data 04/27/23 11:35 04/27/23 11:35 Labs: Laboratory Results - last 24 hr 04/27/23 11:35: WBC 11.5 H, RBC 4.67, Hgb 13.8, Hct 42.1, MCV 90.1, MCH 29.6, MCHC 32.8, RDW Std Deviation 44.8 H, RDW Coeff of Nancy 13.4, Plt Count 263, MPV 11.0, Immature Gran % (Auto) 0.400, Neut % (Auto) 59.1, Lymph % (Auto) 26.5, Bea[place] % (Auto) 12.5 H, Eos % (Auto) 1.1, Baso % (Auto) 0.4, Absolute Neuts (auto) 6.8, Absolute Lymphs (auto) 3.05, Nucleated RBC % 0, PT 14.1, INR 1.1, APTT 33.4, Sodium 135 L, Potassium 3.3 L, Chloride 98, Carbon Dioxide 32.0, Anion Gap 5, BUN 18, Creatinine 1.03 H, Estim Creat Clear Calc 46.39, Est GFR (MDRD) Af Amer 68, Est GFR (MDRD) Non-Af 56 L, BUN/Creatinine Ratio 17.5, Glucose 146 H, Calcium 9.2, Magnesium 1.7, Troponin I High Sens 582 H* Radiology Impression Chest X-Ray 04/27/23 10:41 IMPRESSION: No acute cardiopulmonary disease. Electronically Signed: Nura Russell MD at 11:56 EST Reading Location ID and State: [address] [place] [address] , Service support , Assessment & Plan Assessment/Plan (1) Non-ST elevation [place] (NSTEMI): PLAN: Plan 1. [id number]-pgquwys will be admitted to PCU, she will be seen in consultation by cardiology, patient will be maintained on a heparin drip, she will undergo a cardiac catheterization next week, patient is on Plavix #2 upper respiratory tract infection-I have asked nursing to obtain a COVID-19 test on the patient, I will refrain from any antibiotic usage for now #3 coronary artery disease-patient has a past history of coronary artery disease with stent placement, she will remain on her home medications #4 type 2 diabetes-patient's blood sugars will be monitored, sliding scale insulin will be given as necessary #5 hypokalemia-patient was given IV potassium, labs will be rechecked tomorrow #6 essential hypertension-patient will remain on her present medications #7 hyperlipidemia-patient is on Zetia #8 chronic depression-patient is on Celexa Total clinical time spent by myself addressing the patient's medical issues, reviewing all of her data, and collaborating with patient's care team: 75 minutes Charges/Coding Visit Charges Inpatient E&M: [id number] Init Hosp L3
[2023-04-27] MEDS: 0.9% Normal Saline (1000mL) 1,000 ML 75 ML IV (15:18)
[2023-04-27] MEDS: Acetaminophen 325 MG Tablet 650 MG PO ×2 (16:32→22:35)
[2023-04-27] MEDS: Insulin Lispro 100 UNIT/ML INSULN.PEN SC ×2 (16:38→21:10)
[2023-04-27 16:50] LABS: Bedside Glucose 175 mg/dL (74-106)
[2023-04-27 18:22] LABS: Troponin-I HS 411 pg/mL (3.0-54.0)
--- NOTE | 2023-04-27 20:09 | EKG12_ITS ---
Test Reason : Blood Pressure : / mmHG Vent. Rate : 052 BPM Atrial Rate : 052 BPM P-R Int : 178 ms QRS Dur : 102 ms QT Int : 544 ms P-R-T Axes : 056 047 182 degrees QTc Int : [address] & T wave abnormality, consider inferior ischemia ST & T wave abnormality, consider anterolateral ischemia Prolonged QT Abnormal ECG When compared with ECG of 27-APR-2023 20:13, MANUAL COMPARISON REQUIRED, DATA IS UNCONFIRMED Confirmed by CORINNE SON, ALIE ([id number]), material expeditor BARRY LOU ([id number]) on 05/08/2023 12:48:25 PM Referred By: Confirmed By:ALIE SUN MD
[2023-04-27 20:42] LABS: Troponin-I HS 354 pg/mL (3.0-54.0)
[2023-04-27] MEDS: Morphine 2 MG/ML Syringe IV (21:10)
[2023-04-27] MEDS: Ranolazine 500 MG Tablet 1000 MG PO (21:13)
[2023-04-27 22:27] LABS: Bedside Glucose 212 mg/dL (74-106)
[2023-04-27] MEDS: proMETHazine 25 MG/ML Syringe IM (23:04)
[2023-04-28] MEDS: Pregabalin 75 MG Capsule 150 MG PO ×3 (01:01→21:57)
[2023-04-28 01:17] LABS: Troponin-I HS 212 pg/mL (3.0-54.0)
[2023-04-28 02:08] LABS: Partial Thromboplast Time 50.4 Seconds (24.1-36.2)
[2023-04-28 02:14] LABS: Anion Gap 6 (5-15); BUN 17 mg/dL (7-18); BUN/Creat Ratio 20.3 RATIO (10-20); Calcium,Total 8.6 mg/dL (8.5-10.1); Chloride 103 mmol/L (98-107); Creatinine, Serum 0.84 mg/dL (0.55-1.02); EST Glomerular Filtration Rate 72 mL/min (>60); Est Glom Filt Rate - Afr Amer 87 mL/min (>60); Estimated Creatinine Clearance 56.88 ml/min; Glucose 187 mg/dL (74-106); Potassium 3.7 mmol/L (3.5-5.1); Sodium Level 133 mmol/L (136-145)
[2023-04-28] MEDS: 0.9% Normal Saline (1000mL) 1,000 ML 75 ML IV ×2 (04:30→16:02)
[2023-04-28 04:45] VITALS: BP 115/68; PULSE 61; RESP 16; TEMP 36.6; O2SAT 94
[2023-04-28] MEDS: Insulin Lispro 100 UNIT/ML INSULN.PEN SC ×4 (06:07→21:57)
[2023-04-28 06:26] LABS: Bedside Glucose 196 mg/dL (74-106)
[2023-04-28 08:37] LABS: Partial Thromboplast Time 53.3 Seconds (24.1-36.2)
--- NOTE | 2023-04-28 09:21 | PN.HOSP_ITS ---
Reason for Visit Reason for Visit: Diagnoses Non-ST elevation (NSTEMI) myocardial infarction (04/27/23) Subjective Subjective Patient was seen and examined today, she has no complaints of any chest pain. Her troponins peaked at 582, she is still coughing, her COVID test was negative. Voice is better today. Objective Data Objective Data Vital Signs: Vital Signs Temp Pulse Resp BP Pulse Ox O2 Del Method O2 Flow Rate 97.9 F 61 16 115/68 94 Room Air 2 04/28/23 04:45 04/28/23 04:45 04/28/23 04:45 04/28/23 04:45 04/28/23 04:45 04/28/23 08:51 04/28/23 04:45 Oxygen Flow Rate (L/min) 2 Oxygen Delivery Method Room Air Weight: 87.4 kg Body Mass Index (BMI) 32.1 Intake & Output: Intake and Output for Last 24 Hours 04/26/23 04/27/23 04/28/23 23:59 23:59 23:59 Intake Total 1390 / 1390 1674.09 / 1674.09 Balance 1390 / 1390 1674.09 / 1674.09 Lab / Micro Data 04/27/23 11:35 04/28/23 01:45 Labs: Laboratory Results - last 24 hr 04/27/23 11:35: WBC 11.5 H, RBC 4.67, Hgb 13.8, Hct 42.1, MCV 90.1, MCH 29.6, MCHC 32.8, RDW Std Deviation 44.8 H, RDW Coeff of Nancy 13.4, Plt Count 263, MPV 11.0, Immature Gran % (Auto) 0.400, Neut % (Auto) 59.1, Lymph % (Auto) 26.5, [place] % (Auto) 12.5 H, Eos % (Auto) 1.1, Baso % (Auto) 0.4, Absolute Neuts (auto) 6.8, Absolute Lymphs (auto) 3.05, Nucleated RBC % 0, PT 14.1, INR 1.1, APTT 33.4, Sodium 135 L, Potassium 3.3 L, Chloride 98, Carbon Dioxide 32.0, Anion Gap 5, BUN 18, Creatinine 1.03 H, Estim Creat Clear Calc 46.39, Est GFR (MDRD) Af Amer 68, Est GFR (MDRD) Non-Af 56 L, BUN/Creatinine Ratio 17.5, Glucose 146 H, Calcium 9.2, Magnesium 1.7, Troponin I High Sens 582 H* 04/27/23 16:31: POC Glucose 175 H 04/27/23 17:35: Troponin I High Sens 411 H* 04/27/23 19:25: Troponin I High Sens 354 H* 04/27/23 19:30: APTT 62.0 H 04/27/23 21:08: POC Glucose 212 H 04/27/23 23:55: Troponin I High Sens 212 H* 04/28/23 01:45: APTT 50.4 H, Sodium 133 L, Potassium 3.7, Chloride 103, Carbon Dioxide 24.0, Anion Gap 6, BUN 17, Creatinine 0.84, Estim Creat Clear Calc 56.88, Est GFR (MDRD) Af Amer 87, Est GFR (MDRD) Non-Af 72, BUN/Creatinine Ratio 20.3 H, Glucose 187 H, Calcium 8.6 04/28/23 06:04: POC Glucose 196 H 04/28/23 08:04: APTT 53.3 H Micro: Microbiology 04/27/23 Unknown Nasal Secretion SARS-CoV-2 Antigen (Rapid) - Final Radiography Diagnostic Testing: Radiology Impression Chest X-Ray 04/27/23 10:41 IMPRESSION: No acute cardiopulmonary disease. Electronically Signed: Nura Russell MD at 11:56 EST Reading Location ID and State: [address] [place] [address] , Service support , Physical Exam Const alert, oriented x3, no apparent distress, average body habitus and healthy appearing General Appearance: cooperative, well kempt and well developed Orientation / Consciousness: awake, oriented to person, oriented to place and oriented to time HEENT normocephalic, head/scalp atraumatic and moist oral mucous membranes HEENT Narrative: Patient is slightly hoarse Eyes PERRL, EOMs intact bilaterally and conjunctivae normal Neck supple, no JVD, thyroid normal and no carotid bruits General: trachea midline Resp normal respiratory effort, no retractions, no use of accessory muscles and clear to auscultation bilaterally Auscultation: Negative for rales, rhonchi or wheezes Cardio regular rate, regular rhythm, S1 normal heart sound, S2 normal heart sound, no murmurs, no rub and no gallops GI normal to inspection, nondistended, normoactive bowel sounds, soft to palpation, non-tender and non-distended Extremity no clubbing, cyanosis or edema Skin no rashes or lesions noted General Skin Exam: no breakdown Neuro oriented x3, CN's II-XII intact bilaterally, moves all extremities, no focal motor deficits and no sensory deficits noted Sensorium / Orientation: awake, alert, oriented to person, oriented to place and oriented to time Speech: speech normal Psych affect normal Assessment & Plan Assessment/Plan (1) Non-ST elevation [place] (NSTEMI): PLAN: Plan 1. Hgi-UINRO-[id number] remains on a heparin drip at this time and Plavix, she will undergo cardiac catheterization tomorrow #2 upper respiratory tract infection-most probably viral in nature, I wrote for the patient have cough syrup today #3 coronary artery disease-patient has a past history of coronary artery disease with stent placement, she will remain on her home medications #4 type 2 diabetes-patient's blood sugars will be monitored, sliding scale insulin will be given as necessary #5 hypokalemia-patient was given IV potassium, labs will be rechecked tomorrow #6 essential hypertension-patient will remain on her present medications #7 hyperlipidemia-patient is on Zetia #8 chronic depression-patient is on Celexa Total clinical time spent by myself addressing the patient's medical issues, reviewing all of her data, and collaborating with patient's care team: 25 minutes Charges/Coding Visit Charges Inpatient E&M: 84520 Subs Hosp L1
[2023-04-28 10:00] VITALS: BP 130/60; PULSE 62; RESP 18; TEMP 36.2; O2SAT 95
[2023-04-28] MEDS: Ranolazine 500 MG Tablet 1000 MG PO ×2 (10:00→21:57)
[2023-04-28] MEDS: Clopidogrel Bisulfate 75 MG Tablet PO (10:00)
[2023-04-28] MEDS: Citalopram 40 MG TABLET PO (10:00)
[2023-04-28] MEDS: Isosorbide Mononitrate 30 MG Tablet PO (10:00)
[2023-04-28] MEDS: Losartan Potassium 25 MG Tablet PO (10:00)
[2023-04-28] MEDS: Ezetimibe 10 MG Tablet PO (10:00)
[2023-04-28] MEDS: guaiFENesin Dm 10 ML UDC PO ×2 (10:01→16:01)
[2023-04-28 11:46] LABS: Bedside Glucose 241 mg/dL (74-106)
[2023-04-28] MEDS: HEPARIN/D5w 25,000 UNITS 25,000 UNITS/250 ML IV.SOLN. 12 UNITS CONT INF (12:09)
--- NOTE | 2023-04-28 13:27 | PCM.CONS.C ---
Assessment & Plan Assessment/Plan (1) Non-ST elevation [place] (NSTEMI): PLAN: Continue heparin drip. Coronary angiography tomorrow. Risks and benefits discussed. HPI Consult Data Date of Consult: 04/28/23 HPI Narrative Reason for Consultation: Non-STEMI HPI Narrative: ELSA PUGH, is a 68 F who presents a sensation of her tongue getting swollen after starting antibiotics for upper respiratory symptoms. Patient was also complaining of chest discomfort radiating to her back and shoulder. This is similar to the pain that she has had prior to stents and bypass surgery. Her troponin was elevated and has been trending down. She has an extensive cardiac history. Dates back to 2002 when she was evaluated with chest pain and palpitations. She had had cardiac catheterizations in 1997 as well as 2001. At that time significant coronary disease was noted and she underwent coronary bypass surgery in 2001 with a left internal mammary artery to the left anterior descending artery, radial artery to the first obtuse marginal branch, and a sequential saphenous vein graft to the posterior descending artery and second right posterior descending artery. In addition, she had a history of hypertension, hyperlipidemia, low HDL syndrome, hyper homocystinemia, intolerance of statins and nna-xacgqec-sxgszizhd diabetes mellitus. She has had numerous cardiac procedures including PCI in 2012 with a drug-eluting stent to the saphenous vein graft to right posterior descending artery, in 2014 with a drug-eluting stent to the proximal LAD and in-stent stenosis of the saphenous vein graft to the posterior descending artery. In 2015 she had a PCI to the saphenous vein graft to the posterior descending artery. In 2016 she had in-stent restenosis of that vessel as well as in 2017. Her catheterization in August 2017 demonstrated a normal left main coronary artery, and left circumflex artery which had 25 to 30% proximal stenosis, and left anterior descending artery which had a stented proximal portion the mid segment had a 40 to 50% stenosis, the left internal mammary artery to the left anterior descending artery was noted to be occluded, the right coronary artery was occluded, the saphenous vein graft to the posterior descending artery was patent. The distal body of the graft was a stented segment with 90% stenosis and therefore she underwent successful catheter-based drug-eluting stent placement to the proximal and distal body of the saphenous vein graft. The radial artery was noted to be previously occluded. [facility] Medical History Acute kidney failure Alcohol use Ambulates with cane Anemia Anxiety and depression Arthritis Atherosclerosis of coronary artery 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 Atherosclerotic heart disease of [place] coronary artery without angina pectoris Back pain Blackout Cardiology follow-up encounter Chest pain Concussion COVID CPAP (continuous positive airway pressure) dependence Diabetes Difficulty chewing Difficulty swallowing Epigastric pain Essential hypertension Former smoker Gastric reflux GERD (gastroesophageal reflux disease) Headache Hiatal hernia High cholesterol History of diverticulitis History of echocardiogram History of heart attack History of irregular heartbeat History of stress test Hyperhomocystinemia Hyperlipidemia Imbalance Injury of back Injury of head and neck Iron deficiency anemia Lymphedema Migraine headache Narcolepsy Obesity Obstructive sleep apnea Peripheral neuropathy Post-menopausal Proliferative diabetic retinopathy Restless legs Restless legs syndrome (RLS) Rheumatoid arthritis Shortness of breath on exertion Sleep apnea Type 2 diabetes mellitus Wears glasses Home Medications magnesium gluconate 12.5 mg magnesium (250 mg) tablet 250 mg PO DAILY 01/28/21 [History Last Taken 04/26/23] ascorbate calcium (vitamin C) 500 mg tablet 500 mg PO DAILY 10/26/21 [History Last Taken 04/26/23] mecobalamin (vitamin B12) 5,000 mcg lozenge 5,000 mcg PO DAILY 10/26/21 [History Last Taken 04/26/23] red yeast rice 600 mg capsule 600 mg PO DAILY 10/26/21 [History Last Taken 04/26/23] pregabalin 150 mg capsule 150 mg PO BID 02/27/22 [History Last Taken 04/26/23] cholecalciferol (vitamin D3) 25 mcg (1,000 unit) capsule 25 mcg PO DAILY 06/04/22 [History Last Taken 04/26/23] isosorbide mononitrate 30 mg tablet,extended release 24 hr 30 mg PO DAILY #30 tabs 06/25/22 [Rx Last Taken 04/27/23] ranolazine 1,000 mg tablet,extended release,12 hr 1,000 mg PO BID #180 tabs 06/25/22 [Rx Last Taken 04/27/23] citalopram 40 mg tablet 40 mg PO DAILY #90 tabs 08/22/22 [Rx Last Taken 04/27/23] nitroglycerin 0.4 mg sublingual tablet 0.4 mg sublingual Q5-15M PRN chest pain #25 tabs 10/15/22 [Rx Last Taken Unknown] metformin 500 mg tablet 1,000 mg PO BID 01/21/23 [History Last Taken 04/27/23] ezetimibe 10 mg tablet 10 mg PO DAILY 03/11/23 [History Last Taken 04/26/23] losartan 25 mg tablet 12.5 mg PO DAILY 03/11/23 [History Last Taken 04/27/23] clopidogrel 75 mg tablet See Rx Instructions .Route .COMPLEX #90 tabs 03/15/23 [Rx Last Taken 04/27/23] albuterol sulfate 90 mcg/actuation aerosol inhaler 1 puff inhalation Q6H PRN shortness of breath or wheezing 04/27/23 [History Last Taken Unknown] doxycycline monohydrate 100 mg capsule 100 mg PO Q12H 04/27/23 [History Last Taken 04/26/23] semaglutide 1 mg/dose (4 mg/3 mL) subcutaneous pen injector (Ozempic) 1 mg subcut QWEEK 04/27/23 [History Last Taken 04/25/23] Allergy/AdvReac Type Severity Reaction Status Date / Time aspirin Allergy Rash Verified 04/27/23 10:31 banana Allergy Hives Verified 04/27/23 10:31 canagliflozin [From Invokana] Allergy Anaphylaxis Verified 04/27/23 10:31 kiwi Allergy Hives Verified 04/27/23 10:31 niacin Allergy Rash Verified 04/27/23 10:31 Penicillins [PCN] Allergy Hives Verified 04/27/23 10:31 Sulfa (Sulfonamide Allergy Hives Verified 04/27/23 10:31 Antibiotics) erythromycin base AdvReac Other Verified 04/27/23 10:31 [From Staticin] ethyl alcohol [From Staticin] AdvReac Other Verified 04/27/23 10:31 gemfibrozil [From Lopid] AdvReac Other Verified 04/27/23 10:31 ibuprofen AdvReac Upset Verified 04/27/23 10:31 Stomach levofloxacin [From Levaquin] AdvReac Upset Verified 04/27/23 10:31 Stomach lisinopril AdvReac cough Verified 04/27/23 10:31 propoxyphene AdvReac Upset Verified 04/27/23 10:31 [From Darvocet-N] Stomach spironolactone AdvReac hyperkalemi Verified 04/27/23 10:31 a Hqhqiai-DGZ-KcO Reductase AdvReac unknown Verified 04/27/23 10:31 Inhibitor [Fycurvk-Jgn-Gyw Reductase Inhibitor] tramadol AdvReac Other Verified 04/27/23 10:31 Family History Mother Heart disease Father Heart disease Diabetes Surgical History H/O coronary artery bypass surgery (10/2001) History of cataract surgery History of cholecystectomy History of colonoscopy with polypectomy History of coronary artery stent placement (08/29/17) History of hysterectomy History of left heart catheterization History of tonsillectomy Social History household members: spouse Smoking Status: Former smoker how long ago did patient quit smokin alcohol intake: current alcohol intake frequency: holidays/special occasions only Alcohol type: beer substance use type: does not use what type of physical activity do you participate in: walking frequency: 5-6 times per week Physical Exam Const alert and oriented x3 HEENT normocephalic Eyes no scleral icterus Resp normal respiratory effort Psych mental status grossly normal Risk Stratification Risk Stratification Applicable: No Charges/Coding Visit Charges Inpatient E&M: 92954 Init Hosp L2 Objective Data Vital Signs: Vital Signs Temp Pulse Resp BP Pulse Ox O2 Del Method O2 Flow Rate 97.2 F L 62 18 130/60 H 95 Room Air 2 04/28/23 10:00 04/28/23 10:00 04/28/23 10:00 04/28/23 10:00 04/28/23 10:00 04/28/23 10:00 04/28/23 04:45 Oxygen Flow Rate (L/min) 2 Oxygen Delivery Method Room Air Weight: 192 lb 10.944 oz Body Mass Index (BMI) 32.1 Intake & Output: Intake and Output for Last 24 Hours 04/26/23 04/27/23 04/28/23 23:59 23:59 23:59 Intake Total 1390 / 1390 2074.89 / 4.89 Balance 1390 / 1390 2074.89 / 2073.89 Lab / Micro Data 04/27/23 11:35 04/28/23 01:45 Labs: Laboratory Results - last 24 hr 04/27/23 16:31: POC Glucose 175 H 04/27/23 17:35: Troponin I High Sens 411 H* 04/27/23 19:25: Troponin I High Sens 354 H* 04/27/23 19:30: APTT 62.0 H 04/27/23 21:08: POC Glucose 212 H 04/27/23 23:55: Troponin I High Sens 212 H* 04/28/23 01:45: APTT 50.4 H, Sodium 133 L, Potassium 3.7, Chloride 103, Carbon Dioxide 24.0, Anion Gap 6, BUN 17, Creatinine 0.84, Estim Creat Clear Calc 56.88, Est GFR (MDRD) Af Amer 87, Est GFR (MDRD) Non-Af 72, BUN/Creatinine Ratio 20.3 H, Glucose 187 H, Calcium 8.6 04/28/23 06:04: POC Glucose 196 H 04/28/23 08:04: APTT 53.3 H 04/28/23 11:26: POC Glucose 241 H Micro: Microbiology 04/27/23 Unknown Nasal Secretion SARS-CoV-2 Antigen (Rapid) - Final Cardiology Labs/Tests 04/27/23 19:30: APTT 62.0 H 04/28/23 01:45: APTT 50.4 H, Sodium 133 L, Potassium 3.7, Chloride 103, Carbon Dioxide 24.0, Anion Gap 6, BUN 17, Creatinine 0.84, Est GFR (MDRD) Af Amer 87, Est GFR (MDRD) Non-Af 72, BUN/Creatinine Ratio 20.3 H, Glucose 187 H, Calcium 8.6 04/28/23 08:04: APTT 53.3 H Rhythm: EKG: ECHO: Stress Test: Cardiac Cath: PCI: CT Surgery: Holter monitor: EPS: PPM: CXR: Chest CT Scan:
[2023-04-28] MEDS: Acetaminophen 325 MG Tablet 650 MG PO (15:02)
[2023-04-28 15:24] LABS: Partial Thromboplast Time 55.5 Seconds (24.1-36.2)
[2023-04-28 16:00] VITALS: BP 126/59; PULSE 60; RESP 18; TEMP 36.2; O2SAT 97
[2023-04-28 17:11] LABS: Bedside Glucose 178 mg/dL (74-106)
[2023-04-28 21:20] LABS: Partial Thromboplast Time 58.9 Seconds (24.1-36.2)
[2023-04-28 22:00] VITALS: BP 122/59; PULSE 55; RESP 16; TEMP 36.3; O2SAT 99
[2023-04-28 22:57] LABS: Bedside Glucose 165 mg/dL (74-106)
[2023-04-29] VITALS (11 sets, daily range): BP systolic 126–160; BP diastolic 51–74; PULSE 50–54; RESP 11–18; TEMP 36.3–36.4; O2SAT 92–98
[2023-04-29 04:15] LABS: Partial Thromboplast Time 65.4 Seconds (24.1-36.2)
[2023-04-29 04:25] LABS: Absolute Lymphocyte Count 2.99 X10^3/uL (0.83-4.51); Absolute Neutrophil Count 5.2 X10^3/uL (2.0-7.7); Basophil# 0.03 X10^3/uL; Basophil% 0.3 % (0-1); Eosinophil# 0.09 X10^3/uL; Hematocrit 36.8 % (37-47); Hemoglobin 11.5 g/dL (12.0-15.0); Lymphocyte # 2.99 X10^3/ul (0.83-4.51); Mean Corp Hgb Conc 31.3 g/dL (32-36); Mean Corpuscular Volume 92.7 fL (81-99); Mean Platelet Vol. 11.1 fl (6.2-12.0); Monocyte# 0.75 X10^3/uL; Monocyte% 8.3 % (0-10); NRBC Flagged by Analyzer 0 % (0-5); Neutrophil # 5.15 X10^3/uL (2.7-7.7); Neutrophil % 56.8 % (47-70); Platelet Count 214 K/mm3 (150-450); RBC Distribution Width CV 13.6 % (11.6-14.6); RBC Distribution Width SD 46.5 fl (35.1-43.9); Red Blood Count 3.97 M/mm3 (4.2-5.4); White Blood Count 9.1 K/mm3 (4.4-11.0)
[2023-04-29 04:46] LABS: Anion Gap 6 (5-15); BUN 13 mg/dL (7-18); BUN/Creat Ratio 16.6 RATIO (10-20); Calcium,Total 8.3 mg/dL (8.5-10.1); Chloride 107 mmol/L (98-107); Creatinine, Serum 0.78 mg/dL (0.55-1.02); EST Glomerular Filtration Rate 78 mL/min (>60); Est Glom Filt Rate - Afr Amer 94 mL/min (>60); Estimated Creatinine Clearance 47.78 ml/min; Glucose 129 mg/dL (74-106); Potassium 3.5 mmol/L (3.5-5.1); Sodium Level 141 mmol/L (136-145)
[2023-04-29] MEDS: 0.9% Normal Saline (1000mL) 1,000 ML 75 ML IV (05:43)
--- NOTE | 2023-04-29 05:55 | EKG12_ITS ---
Test Reason : INCREASING RIGHT SHOULDER PAIN Blood Pressure : / mmHG Vent. Rate : 057 BPM Atrial Rate : 057 BPM P-R Int : 172 ms QRS Dur : 104 ms QT Int : 650 ms P-R-T Axes : 053 039 179 degrees QTc Int : 632 ms Critical Test Result: Long QTc Sinus bradycardia ST & Marked T wave abnormality, consider anterolateral ischemia Prolonged QT Abnormal ECG When compared with ECG of 27-APR-2023 12:24, MANUAL COMPARISON REQUIRED, DATA IS UNCONFIRMED Confirmed by CORINNE SON, ALIE ([id number]), school photograph editor BARRY LOU ([id number]) on 05/08/2023 12:49:36 PM Referred By: Confirmed By:ALIE SUN MD
[2023-04-29] MEDS: Isosorbide Mononitrate 30 MG Tablet PO (06:12)
[2023-04-29] MEDS: Losartan Potassium 25 MG Tablet PO (06:12)
[2023-04-29] MEDS: Clopidogrel Bisulfate 75 MG Tablet PO (06:12)
[2023-04-29 06:36] LABS: Bedside Glucose 124 mg/dL (74-106)
[2023-04-29] MEDS: Acetaminophen 325 MG Tablet 650 MG PO (08:42)
[2023-04-29] MEDS: Ranolazine 500 MG Tablet 1000 MG PO (08:44)
[2023-04-29] MEDS: Citalopram 40 MG TABLET PO (08:44)
[2023-04-29] MEDS: guaiFENesin Dm 10 ML UDC PO (08:46)
--- NOTE | 2023-04-29 08:47 | ECHOD_ITS ---
Reason For Study: S/P ND Procedure This was a 2D Doppler, Color Flow transthoracic echocardiogram. Exam performed portable in patient room. Left Ventricle Normal left ventricle. The estimated ejection fraction is 55-60 %. Right Ventricle Normal right ventricle. Normal systolic function. Atria Normal left atrium. Normal right atrium. Mitral Valve The mitral valve is structurally normal. No prolapse or stenosis seen. Mild (1+) mitral valve insufficiency. Tricuspid Valve Normal tricuspid valve. Mild tricuspid valve insufficiency. Aortic Valve The aortic valve is not well visualized in the short axis view. Pulmonic Valve The pulmonic valve is not well visualized. Great Vessels Normal aortic root. Pericardium/Pleural No pericardial effusion. MMode/2D Measurements & Calculations LVIDd: 4.8 cm IVSd: 1.2 cm Ao root diam: 2.9 cm LVIDs: 2.9 cm LVPWd: 1.0 cm FS: 40.8 % LAV(MOD-bp): 99.7 ml LVAd ap4: 25.9 cm2 SV(MOD-sp4): 50.0 ml LAV(MOD-bp) Indexed: 51.2 ml/m2 LVLd ap4: 7.9 cm LAV(MOD-sp2): 102.7 ml EDV(MOD-sp4): 77.6 ml LAV(MOD-sp4): 85.8 ml EDV(sp4-el): 71.7 ml LVAs ap4: 14.5 cm2 LVLs ap4: 6.8 cm ESV(MOD-sp4): 27.6 ml ESV(sp4-el): 26.4 ml EF(MOD-sp4): 64.5 % EF(sp4-el): 63.3 % SV(sp4-el): 45.4 ml LA A4 area: 26.5 cm2 LA dimension(2D): 4.1 cm RA A4 area: 15.7 cm2 Time Measurements MV dec time: 0.22 sec Doppler Measurements & Calculations MV E max juan jose: 123.3 cm/sec Lat Peak E' Juan Jose: 7.1 cm/sec Med Peak E' Juan Jose: 4.3 cm/sec MV A max juan jose: 68.5 cm/sec E/E' lat: 17.4 E/E' med: 28.8 MV E/A: 1.8 MV V2 max: 132.3 cm/sec Ao V2 max: 172.8 cm/sec MV max P.0 mmHg MV dec slope: 549.0 cm/sec2 Ao max P.0 mmHg MV V2 mean: 66.6 cm/sec Ao V2 mean: 122.0 cm/sec MV mean P.2 mmHg Ao mean P.8 mmHg MV V2 VTI: 45.8 cm Ao V2 VTI: 41.0 cm AV (velocity ratio): 0.82 LV V1 max: 129.3 cm/sec TR max juan jose: 317.8 cm/sec LV V1 max P.7 mmHg TR max P.4 mmHg LV V1 mean P.1 mmHg LV V1 mean: 79.0 cm/sec LV V1 VTI: 33.5 cm ECHO/Echo Complete Interpretation Summary The estimated ejection fraction is 50-55% Mild inferior hypokinesia in comparison to the rest of the myocardium Ordering Physician: Elvia Cary Performed By: Inez Kearns RCS
--- NOTE | 2023-04-29 12:27 | PCM.CONS.C ---
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 Back pain Blackout Cardiology follow-up encounter Chest pain Concussion COVID CPAP (continuous positive airway pressure) dependence Diabetes Difficulty chewing Difficulty swallowing Epigastric pain Essential hypertension Former smoker Gastric reflux GERD (gastroesophageal reflux disease) Headache Hiatal hernia High cholesterol History of diverticulitis History of echocardiogram History of heart attack History of irregular heartbeat History of stress test Hyperhomocystinemia Hyperlipidemia Imbalance Injury of back Injury of head and neck Iron deficiency anemia Lymphedema Migraine headache Narcolepsy Obesity Obstructive sleep apnea Peripheral neuropathy Post-menopausal Proliferative diabetic retinopathy Restless legs Restless legs syndrome (RLS) Rheumatoid arthritis Shortness of breath on exertion Sleep apnea Type 2 diabetes mellitus Wears glasses Home Medications ascorbate calcium (vitamin C) 500 mg tablet 500 mg PO DAILY 10/26/21 [History Last Taken 05/17/23] red yeast rice 600 mg capsule 600 mg PO DAILY 10/26/21 [History Last Taken 05/17/23] pregabalin 150 mg capsule 150 mg PO BID 02/27/22 [History Last Taken 05/17/23] cholecalciferol (vitamin D3) 25 mcg (1,000 unit) capsule 25 mcg PO DAILY 06/04/22 [History Last Taken 05/17/23] ranolazine 1,000 mg tablet,extended release,12 hr 1,000 mg PO BID #180 tabs 06/25/22 [Rx Last Taken 05/17/23] nitroglycerin 0.4 mg sublingual tablet 0.4 mg sublingual Q5-15M PRN chest pain #25 tabs 10/15/22 [Rx Last Taken Unknown] metformin 500 mg tablet 1,000 mg PO BID 01/21/23 [History Last Taken 05/17/23] ezetimibe 10 mg tablet 10 mg PO DAILY 03/11/23 [History Last Taken 05/17/23] albuterol sulfate 90 mcg/actuation aerosol inhaler 1 puff inhalation Q6H PRN shortness of breath or wheezing 04/27/23 [History Last Taken Unknown] semaglutide 1 mg/dose (4 mg/3 mL) subcutaneous pen injector (Ozempic) 1 mg subcut QWEEK 04/27/23 [History Last Taken 05/16/23] aspirin 81 mg tablet,delayed release (Adult Aspirin Regimen) 81 mg PO DAILY 05/18/23 [History Last Taken 05/17/23] citalopram 40 mg tablet 20 mg PO DAILY 05/18/23 [History Last Taken 05/17/23] fenofibrate nanocrystallized 145 mg tablet 145 mg PO DAILY 05/18/23 [History Last Taken 05/17/23] losartan 50 mg tablet 50 mg PO BID #60 tabs 05/18/23 [Rx Last Taken Unknown] metoprolol succinate 25 mg tablet,extended release 24 hr 25 mg PO DAILY 05/18/23 [History Last Taken 05/17/23] pantoprazole 40 mg tablet,delayed release 40 mg PO DAILY 05/18/23 [History Last Taken 05/17/23] ticagrelor 90 mg tablet (Brilinta) 90 mg PO Q12H 05/18/23 [History Last Taken 05/17/23] Handicap Placard #1 ea 06/05/23 [Rx Last Taken Unknown] isosorbide mononitrate 30 mg tablet,extended release 24 hr 30 mg PO DAILY #30 tabs 06/05/23 [Rx Last Taken Unknown] isosorbide mononitrate 60 mg tablet,extended release 24 hr 60 mg PO DAILY #30 tabs 06/05/23 [Rx Last Taken Unknown] Allergy/AdvReac Type Severity Reaction Status Date / Time aspirin Allergy Rash Verified 06/05/23 09:22 banana Allergy Hives Verified 06/05/23 09:22 canagliflozin [From Invokana] Allergy Anaphylaxis Verified 06/05/23 09:22 kiwi Allergy Hives Verified 06/05/23 09:22 niacin Allergy Rash Verified 06/05/23 09:22 Penicillins [PCN] Allergy Hives Verified 06/05/23 09:22 Sulfa (Sulfonamide Allergy Hives Verified 06/05/23 09:22 Antibiotics) erythromycin base AdvReac Other Verified 06/05/23 09:22 [From Staticin] ethyl alcohol [From Staticin] AdvReac Other Verified 06/05/23 09:22 gemfibrozil [From Lopid] AdvReac Other Verified 06/05/23 09:22 ibuprofen AdvReac Upset Verified 06/05/23 09:22 Stomach levofloxacin [From Levaquin] AdvReac Upset Verified 06/05/23 09:22 Stomach lisinopril AdvReac cough Verified 06/05/23 09:22 propoxyphene AdvReac Upset Verified 06/05/23 09:22 [From Darvocet-N] Stomach spironolactone AdvReac hyperkalemi Verified 06/05/23 09:22 a Jtdciau-IGV-GuM Reductase AdvReac unknown Verified 06/05/23 09:22 Inhibitor [Pptyeej-Nzt-Bwl Reductase Inhibitor] tramadol AdvReac Other Verified 06/05/23 09:22 Family History Mother Heart disease Father Heart disease Diabetes Surgical History H/O coronary artery bypass surgery (10/2001) History of cataract surgery History of cholecystectomy History of colonoscopy with polypectomy History of coronary artery stent placement (08/29/17) History of hysterectomy History of left heart catheterization History of tonsillectomy Social History household members: spouse Smoking Status: Former smoker how long ago did patient quit smokin alcohol intake: current alcohol intake frequency: holidays/special occasions only Alcohol type: beer substance use type: does not use what type of physical activity do you participate in: walking frequency: 5-6 times per week Objective Data Vital Signs: Vital Signs Temp Pulse Resp BP Pulse Ox O2 Del Method O2 Flow Rate 97.5 F L 53 L 18 126/61 H 96 Room Air 2 04/29/23 08:40 04/29/23 08:40 04/29/23 08:40 04/29/23 08:40 04/29/23 08:40 04/29/23 08:40 04/28/23 04:45 Oxygen Flow Rate (L/min) 2 Oxygen Delivery Method Room Air Weight: 192 lb 10.944 oz Body Mass Index (BMI) 32.1 Intake & Output: Intake and Output for Last 24 Hours 11/05/0904/28/23 04/29/23 23:59 23:59 23:59 Intake Total 1390 / 1390 3359.89 / 3839.89 2119 Balance 1390 / 1390 3359.89 / 3839.89 2119 Lab / Micro Data 04/29/23 04:17 04/29/23 04:17 Labs: Laboratory Results - last 24 hr 04/28/23 14:48: APTT 55.5 H 04/28/23 16:38: POC Glucose 178 H 04/28/23 20:53: APTT 58.9 H 04/28/23 21:07: POC Glucose 165 H 04/29/23 03:05: APTT 65.4 H 04/29/23 04:17: WBC 9.1, RBC 3.97 L, Hgb 11.5 L, Hct 36.8 L, MCV 92.7, MCH 29.0, MCHC 31.3 L, RDW Std Deviation 46.5 H, RDW Coeff of Nancy 13.6, Plt Count 214, MPV 11.1, Immature Gran % (Auto) 0.600, Neut % (Auto) 56.8, Lymph % (Auto) 33.0, [place] % (Auto) 8.3, Eos % (Auto) 1.0, Baso % (Auto) 0.3, Absolute Neuts (auto) 5.2, Absolute Lymphs (auto) 2.99, Nucleated RBC % 0, Sodium 141, Potassium 3.5, Chloride 107, Carbon Dioxide 28.0, Anion Gap 6, BUN 13, Creatinine 0.78, Estim Creat Clear Calc 47.78, Est GFR (MDRD) Af Amer 94, Est GFR (MDRD) Non-Af 78, BUN/Creatinine Ratio 16.6, Glucose 129 H, Calcium 8.3 L 04/29/23 06:09: POC Glucose 124 H Cardiology Labs/Tests 04/28/23 14:48: APTT 55.5 H 04/28/23 20:53: APTT 58.9 H 04/29/23 03:05: APTT 65.4 H 04/29/23 04:17: WBC 9.1, RBC 3.97 L, Hgb 11.5 L, Hct 36.8 L, MCV 92.7, MCH 29.0, MCHC 31.3 L, Plt Count 214, MPV 11.1, Immature Gran % (Auto) 0.600, Neut % (Auto) 56.8, Lymph % (Auto) 33.0, [place] % (Auto) 8.3, Eos % (Auto) 1.0, Baso % (Auto) 0.3, Absolute Neuts (auto) 5.2, Nucleated RBC % 0, Sodium 141, Potassium 3.5, Chloride 107, Carbon Dioxide 28.0, Anion Gap 6, BUN 13, Creatinine 0.78, Est GFR (MDRD) Af Amer 94, Est GFR (MDRD) Non-Af 78, BUN/Creatinine Ratio 16.6, Glucose 129 H, Calcium 8.3 L Rhythm: EKG: ECHO: Stress Test: Cardiac Cath: PCI: CT Surgery: Holter monitor: EPS: PPM: CXR: Chest CT Scan:
--- NOTE | 2023-04-29 12:35 | PRO.PCM_ITS ---
Procedure Report Date of Procedure: 04/29/23 1. Moderate sedation 2. Selective left coronary angiography 3. Selective right cholangiography Bypass graft angiography; #1 YATES to diagonal. 2. SVG to sequential RPDA and posterolateral 3. Radial graft to OM1 Access; 1. 6 [place] sheaths placed in the right radial artery 2. 6 [place] sheaths placed in the right common femoral artery under fluoroscopic guidance
--- NOTE | 2023-04-29 12:35 | PCM.OP.PRO ---
Procedure Report Date of Procedure: 04/29/23 1. Moderate sedation 2. Selective left coronary angiography 3. Selective right cholangiography Bypass graft angiography; #1 YATES to diagonal. 2. SVG to sequential RPDA and posterolateral 3. Radial graft to OM1 Access; 1. 6 Polish sheaths placed in the right radial artery 2. 6 Polish sheaths placed in the right common femoral artery under fluoroscopic guidance Procedure in detail; Initially we will proceed with access from the right radial artery however there is spasm and were unable to complete studies therefore we will change the access to the right common femoral artery under fluoroscopic guidance with the placement of 6 Polish sheath Then we will proceed with 6 Polish JL 4 advancing over the cannulated the left main multiple views were obtained Then the catheter was exchanged for 5 Polish JR4 Selective angiography of right coronary system as well as the graft is sequential SVG and RPDA The same catheter which is 5 Polish R4 was used and were able to inject the graft to the OM Left subclavian access obtained and YATES to diagonal graft was obtained in 2 views [place] and [place] view. Following this or catheter removed selective angiography of right comfortable artery obtained Hemostasis maintained with manual pressure to the right common femoral artery the ACT level was less than 160 Also a TR band applied to the right radial artery Findings Coronary angiography findings: [place] coronary artery; 1. Left main proximal left main had nonobstructive atherosclerosis of around 30% Left main coronary artery bifurcates into LAD and the left circumflex 2. Left anterior descending is occluded/CASING FLUID TENDER at the mid portion after the first large septal and diagonal branch The proximal LAD stent is patent There is an ostial lesion involving the diagonal branch which is a large vessel 3. The left circumflex proximally had no significant atherosclerosis The ostium of the OM1 which is a large vessel had nonobstructive sclerosis from 30-40% 4. RCA occluded stent proximally. Bypass graft angiography; 1. YATES to the diagonal was patent however there is an ostial lesion which is nonobstructive with severe spasm involving which is a catheter induced spasm of the ostium of the YATES 2. SVG graft to the sequential RPDA is patent with DARSHAN-3 flow however there is severe atherosclerosis with in-stent restenosis in the midportion of the SVG graft as well there is a lesion at the distal part of the vein graft which is at least around 80% This is likely the culprit lesion patient presentation is non-STEMI. 3,radial graft to the OM is occluded Conclusion recommendation 68-year-old patient with a history of HI in 1997 where she had a PCI and stent of the RCA In 2001 patient had bypass graft at the [place] She had multiple PCI and stent of the SVG graft to the sequential RPDA and posterolateral By echocardiogram her LV function is preserved. Patient presentation is [id number] HI Patient is allergic to aspirin she has not been taking aspirin since 1997 and she was on Plavix We will resume heparin and I also discussed the case with carbon electrodes supervisor at [facility] Discussed angiographic findings. Patient will need further PCI large instent restenosis of the SVG graft. And medical therapy. Manual pressure applied to right common femoral artery No complication in the [employer]. Colin Luis MD,FACC,[facility]
--- NOTE | 2023-04-29 12:45 | CASEMGMT ---
RN CM Face to Face with patient for initial transition planning/care coordination assessment. RN CM introduced self and role at [facility]. Patient lying in bed, alert and oriented, mother and significant other at bedside. Patient willing to participate in assessment and is able to answer all questions appropriately. Care providers, pharmacy, and demographics verified. Patient wishes to discharge home, denies need for home health at this time. Patient states she has no further needs or concerns at this time. CM to follow for discharge planning needs that may arise. PCP: [facility] Specialists: Devon, outbound supervisor; Sandy, neurologist [facility] Preferred Pharmacy: [facility] Insurance: [employer] Prescription Benefit: yes Living Will/HPOA: yes, daughter Penelope Jordana LNOK: significant other, daughter Living Arrangements: Patient lives with significant other in a 2 story duplex. Patient is independent and able to ambulate stairs. Transportation: self, significant DME/HHC: Patient has cane, walker, grab bars, and cpap at home. No previous HHC or SNF Disposition Plan: Patient to discharge home with family support and follow-up plans in place. Samantha SMITH, RN, CM
[2023-04-29 12:52] LABS: Bedside Glucose 112 mg/dL (74-106)
--- NOTE | 2023-04-29 13:19 | PCM.PN.CARD ---
Documented by User: Elvia ROBERTS, ALEJANDRA 04/29/23 13:41 Subjective Subjective Pt seen and examined today. She admits to having right shoulder and left neck pain. This is similar to what she had when she had her previous PCI/CABG but not as severe. She is scheduled to undergo a diagnostic heart cath today. Objective Data Vital Signs: Vital Signs Temp Pulse Resp BP Pulse Ox O2 Del Method O2 Flow Rate 97.5 F L 53 L 18 126/61 H 95 Room Air 2 04/29/23 08:40 04/29/23 08:40 04/29/23 08:40 04/29/23 08:40 04/29/23 12:46 04/29/23 12:46 04/28/23 04:45 Oxygen Flow Rate (L/min) 2 Oxygen Delivery Method Room Air Weight: 192 lb 10.944 oz Body Mass Index (BMI) 32.1 Intake & Output: Intake and Output for Last 24 Hours 04/27/23 04/28/23 04/29/23 23:59 23:59 23:59 Intake Total 1390 / 1390 3359.89 / 3839.89 2119 Balance 1390 / 1390 3359.89 / 3839.89 2119 Lab / Micro Data 04/29/23 04:17 04/29/23 04:17 Labs: Laboratory Results - last 24 hr 04/28/23 14:48: APTT 55.5 H 04/28/23 16:38: POC Glucose 178 H 04/28/23 20:53: APTT 58.9 H 04/28/23 21:07: POC Glucose 165 H 04/29/23 03:05: APTT 65.4 H 04/29/23 04:17: WBC 9.1, RBC 3.97 L, Hgb 11.5 L, Hct 36.8 L, MCV 92.7, MCH 29.0, MCHC 31.3 L, RDW Std Deviation 46.5 H, RDW Coeff of Nancy 13.6, Plt Count 214, MPV 11.1, Immature Gran % (Auto) 0.600, Neut % (Auto) 56.8, Lymph % (Auto) 33.0, [place] % (Auto) 8.3, Eos % (Auto) 1.0, Baso % (Auto) 0.3, Absolute Neuts (auto) 5.2, Absolute Lymphs (auto) 2.99, Nucleated RBC % 0, Sodium 141, Potassium 3.5, Chloride 107, Carbon Dioxide 28.0, Anion Gap 6, BUN 13, Creatinine 0.78, Estim Creat Clear Calc 47.78, Est GFR (MDRD) Af Amer 94, Est GFR (MDRD) Non-Af 78, BUN/Creatinine Ratio 16.6, Glucose 129 H, Calcium 8.3 L 04/29/23 06:09: POC Glucose 124 H 04/29/23 12:34: POC Glucose 112 H Cardiology Labs/Tests 04/28/23 14:48: APTT 55.5 H 04/28/23 20:53: APTT 58.9 H 04/29/23 03:05: APTT 65.4 H 04/29/23 04:17: WBC 9.1, RBC 3.97 L, Hgb 11.5 L, Hct 36.8 L, MCV 92.7, MCH 29.0, MCHC 31.3 L, Plt Count 214, MPV 11.1, Immature Gran % (Auto) 0.600, Neut % (Auto) 56.8, Lymph % (Auto) 33.0, [place] % (Auto) 8.3, Eos % (Auto) 1.0, Baso % (Auto) 0.3, Absolute Neuts (auto) 5.2, Nucleated RBC % 0, Sodium 141, Potassium 3.5, Chloride 107, Carbon Dioxide 28.0, Anion Gap 6, BUN 13, Creatinine 0.78, Est GFR (MDRD) Af Amer 94, Est GFR (MDRD) Non-Af 78, BUN/Creatinine Ratio 16.6, Glucose 129 H, Calcium 8.3 L Rhythm: SR ECHO: pending Cardiac Cath: 1. Left main proximal left main had nonobstructive atherosclerosis of around 30% Left main coronary artery bifurcates into LAD and the left circumflex 2. Left anterior descending is occluded/PRESS ASSISTANT AND FEEDER at the mid portion after the first large septal and diagonal branch The proximal LAD stent is patent There is an ostial lesion involving the diagonal branch which is a large vessel 3. The left circumflex proximally had no significant atherosclerosis The ostium of the OM1 which is a large vessel had nonobstructive sclerosis from 30-40% 4. RCA occluded stent proximally. Bypass graft angiography; 1. YATES to the diagonal was patent however there is an ostial lesion which is nonobstructive with severe spasm involving which is a catheter induced spasm of the ostium of the YATES 2. SVG graft to the sequential RPDA is patent with DARSHAN-3 flow however there is severe atherosclerosis with in-stent restenosis in the midportion of the SVG graft as well there is a lesion at the distal part of the vein graft which is at least around 80% This is likely the culprit lesion patient presentation is non-STEMI. 3,radial graft to the OM is occluded Physical Exam Const alert and oriented x3 HEENT normocephalic and hearing grossly normal bilaterally Eyes PERRL, EOMs intact bilaterally, conjunctivae normal and no scleral icterus Resp normal respiratory effort and clear to auscultation bilaterally Cardio regular rate, regular rhythm, S1 normal heart sound, S2 normal heart sound, no murmurs, no rub, no gallops, no clicks and peripheral pulses 2+ throughout Neuro oriented x3, CN's II-XII intact bilaterally and moves all extremities Psych mental status grossly normal Assessment & Plan Assessment/Plan (1) Non-ST elevation [place] (NSTEMI): PLAN: Continue heparin drip. Coronary angiography tomorrow. Risks and benefits discussed. (2) Atherosclerotic heart disease of [place] coronary artery without angina pectoris: (3) H/O coronary artery bypass surgery: (4) History of coronary artery stent placement: (5) Essential hypertension: (6) Hyperlipidemia: PLAN: Plan Pt did undergo a diagnostic heart cath. This demonstrated Left main proximal left main had nonobstructive atherosclerosis of around 30%, Left main coronary artery bifurcates into LAD and the left circumflex, Left anterior descending is occluded/PRESS ASSISTANT AND FEEDER at the mid portion after the first large septal and diagonal branch, The proximal LAD stent is patent. There is an ostial lesion involving the diagonal branch which is a large vessel. The left circumflex proximally had no significant atherosclerosis. The ostium of the OM1 which is a large vessel had nonobstructive sclerosis from 30-40%. RCA occluded stent proximally. Bypass graft angiography; YATES to the diagonal was patent however there is an ostial lesion which is nonobstructive with severe spasm involving which is a catheter induced spasm of the ostium of the YATES. SVG graft to the sequential RPDA is patent with DARSHAN-3 flow. However there is severe atherosclerosis with in-stent restenosis in the midportion of the SVG graft as well there is a lesion at the distal part of the vein graft which is at least around 80%. This is likely the culprit lesion patient presentation is non-STEMI. Radial graft to the OM is occluded. Pt will be transferred to [facility] further evaluation. She will continue with her Heparin,will hold her plavix. Will continue with Ranexa, Isosorbide, losartan, and Zetia. She has been intolerant to Statins in the past, will suggest injectable at her next OV. Will follow up after pt is d/c home. Documented by User: Dr. Colin Luis MD 04/29/23 18:39 Lab / Micro Data 04/29/23 04:17 04/29/23 04:17 Assessment & Plan Assessment/Plan (1) Non-ST elevation [place] (NSTEMI): (2) Atherosclerotic heart disease of [place] coronary artery without angina pectoris: (3) H/O coronary artery bypass surgery: (4) History of coronary artery stent placement: (5) Essential hypertension: (6) Hyperlipidemia: PLAN: Plan Pt did undergo a diagnostic heart cath. This demonstrated Left main proximal left main had nonobstructive atherosclerosis of around 30%, Left main coronary artery bifurcates into LAD and the left circumflex, Left anterior descending is occluded/PRESS ASSISTANT AND FEEDER at the mid portion after the first large septal and diagonal branch, The proximal LAD stent is patent. There is an ostial lesion involving the diagonal branch which is a large vessel. The left circumflex proximally had no significant atherosclerosis. The ostium of the OM1 which is a large vessel had nonobstructive sclerosis from 30-40%. RCA occluded stent proximally. Bypass graft angiography; YAETS to the diagonal was patent however there is an ostial lesion which is nonobstructive with severe spasm involving which is a catheter induced spasm of the ostium of the YATES. SVG graft to the sequential RPDA is patent with DARSHAN-3 flow. However there is severe atherosclerosis with in-stent restenosis in the midportion of the SVG graft as well there is a lesion at the distal part of the vein graft which is at least around 80%. This is likely the culprit lesion patient presentation is non-STEMI. Radial graft to the OM is occluded. Pt will be transferred to [facility] for further evaluation. She will continue with her Heparin,will hold her plavix. Will continue with Ranexa, Isosorbide, losartan, and Zetia. She has been intolerant to Statins in the past, will suggest injectable at her next OV. Will follow up after pt is d/c home. I reviewed and discussed all the current evaluation of this patient in the hospital Examined the patient at bedside in the PCU I concur with cardiac care plan as per midlevel note and documentation Patient had severe extensive coronary arthrosclerosis I discussed the finding of cardiac catheterization today in detail with the patient and the family And patient has extensive coronary atherosclerosis involving the [place] as well as graft With occluded RCA and occluded LAD Graft to the sequential L PDA and posterolateral had significant atherosclerosis with in-stent stenosis and distal SVG graft lesion of around 80% Also noted YATES to the diagonal branch the ostium of the YATES at catheter induced spasm. Patient will be transferred for further management to [facility] I discussed with the interventional list and patient will be transferred High risk patient and would require a facility with bypass surgery backup. Also we discussed and reviewed all the current medication we will continue current treatment. Patient is allergic to aspirin
--- NOTE | 2023-04-29 13:45 | DCINST_ITS ---
Discharge Instructions Diet Discharge Diet: No restrictions Activity Discharge Activity: Return to Normal Activity Weight Bearing Status: Full weight bearing Follow Up Care Test Results: Test results from this visit will be discussed in further detail at your follow- up appointment, if applicable. Discharge Plan Admission Admit Date/Time: 04/27/23 12:44 Primary Reason for Your Visit: NSTEMI Attending Provider: Helio Yuen Primary Care Provider: Redd Carney Consulting Providers: Joan Mai; Jose De Jesus Edge Instructions Additional Instructions / Restrictions: Patient transferred to [facility] for further care per cardiology recommendations. Heparin drip continued on discharge, held home Plavix per cardiology recommendations. Discharge Orders/Prescriptions Prescriptions: New heparin (porcine) 5,000 unit/mL Solution 0 unit IV UD PRN (Reason: dose adjustment) 1 Days Qty: 1 0RF heparin (porcine) in 5 % dex 25,000 unit/250 mL(100 unit/mL) Parenteral Solution 25,000 unit continuous IV infusion .Q25H 1 Days Qty: 1 0RF Protocol: NSTEMI / Thrombolytic Wt-Based Heparin Condition: Patient Weight (kg): THROMBOLYTIC PROTOCOL Dose/Route: Initial Heparin Bolus (Vial: 5000 units/ml) Instruction: Initial Heparin Infusion Rate (25,000 units/250ml D5W) Condition: 30-40 kg Dose/Route: 2,000 units (0.4 ml) Instruction: 400 units/hr Condition: 40.1-50 kg Dose/Route: 3,000 units (0.6 ml) Instruction: 550 units/hr Condition: 50.1-60 kg Dose/Route: 3,500 units (0.7 ml) Instruction: 700 units/hr Condition: 60.1-70 kg Dose/Route: 4,000 units (0.8 ml) Instruction: 800 units/hr Condition: 70.1-80 kg Dose/Route: 4,000 units (0.8 ml) Instruction: 900 units/hr Condition: >80 kg Dose/Route: 4,000 units (0.8 ml) Instruction: 1000 units/hr Protocol Text: Heparin Weight Based: THROMBOLYTIC aPTT: <41 Bolus w/Heparin: 1,000 units Stop Heparin infusion: 0 Rate change (units/hr): Increase 200 units (+2ml/hr) Repeat aPTT: 6 hours after rate change aPTT: 41-54 Bolus w/Heparin: 0 Stop Heparin infusion: 0 Rate change (units/hr): Increase 100 units (+1ml/hr) Repeat aPTT: 6 hours after rate change aPTT: 55-67 *GOAL* NOTE: aPTT is NOT at goal therapy unless TWO consecutive aPTT levels are within goal range-- Bolus w/Heparin: 0 Stop Heparin infusion: 0 Rate change (units/hr): 0 Repeat aPTT: 6 hours after aPTT results, unless second aPTT in a row in goal and therapy has ran >24 hours, then next morning aPTT: 68-79 Bolus w/Heparin: 0 Stop Heparin infusion: 0 Rate change (units/hr): Decrease 100 units (-1 ml/hr) Repeat aPTT: 6 hours after rate change aPTT: 80-92 Bolus w/Heparin: 0 Stop Heparin infusion: 30 minutes Rate change (units/hr): Decrease 100 units (-1 ml/hr) Repeat aPTT: 6 hours after rate change aPTT: 93-104 Bolus w/Heparin: 0 Stop Heparin infusion: 1 hour Rate change (units/hr): Decrease 200 units (-2 ml/hr) Repeat aPTT: 6 hours after rate change aPTT: >104 Bolus w/Heparin: 0 Stop Heparin infusion: 90 minutes Rate change (units/hr): Decrease 300 units (-3 ml/hr) Repeat aPTT: 6 hours after rate change Is an initial BOLUS dose to be given? Yes Continued red yeast rice 600 mg capsule 600 mg PO DAILY Rx Instructions: give with meal/snack mecobalamin (vitamin B12) 5,000 mcg lozenge 5,000 mcg PO DAILY Rx Instructions: allow to dissolve in mouth OR may chew lightly before swallowing ascorbate calcium (vitamin C) 500 mg tablet 500 mg PO DAILY pregabalin 150 mg capsule 150 mg PO BID Patient Comments: TAKE 1 CAPSULE BY MOUTH TWICE DAILY FOR 30 DAYS (TAKE ONE CAPSULE AT DINNER AND ONE CAPSULE BEFORE BED) isosorbide mononitrate 30 mg tablet extended release 24 hr 30 mg PO DAILY Qty: 30 11RF ranolazine 1,000 mg tablet extended release 12 hr 1,000 mg PO BID Qty: 180 3RF cholecalciferol (vitamin D3) 25 mcg (1,000 unit) capsule 25 mcg PO DAILY magnesium gluconate 12.5 mg magne- sium (250 mg) Tablet 250 mg PO DAILY metformin 500 mg tablet 1,000 mg PO BID albuterol sulfate 90 mcg/actuation HFA aerosol inhaler 1 puff INHALATION Q6H PRN (Reason: shortness of breath or wheezing) doxycycline monohydrate 100 mg capsule 100 mg PO Q12H Rx Instructions: X7D FIRST DOSE 04/26 Ozempic 1 mg/dose (4 mg/3 mL) pen injector 1 mg SUBCUT QWEEK citalopram 40 mg tablet 40 mg PO DAILY Qty: 90 3RF nitroglycerin 0.4 mg tablet, sublingual 0.4 mg sublingual Q5-15M PRN (Reason: chest pain) Qty: 25 3RF Rx Instructions: do not exceed 3 doses per episode losartan 25 mg tablet 12.5 mg PO DAILY ezetimibe 10 mg tablet 10 mg PO DAILY Discontinued clopidogrel 75 mg tablet See Rx Instructions .ROUTE .COMPLEX Qty: 90 3RF Dose Instruction: Take 1 tablet by mouth once daily Rx Instructions: Take 1 tablet by mouth once daily Referrals / Follow Up: Redd Carney MD [Primary Care Provider] - Disposition Disposition (needs filled in before D/C Order can be placed): [facility]
--- NOTE | 2023-04-29 13:49 | DS.PCM_ITS ---
Providers Date of Admission: 04/27/23 Date of Discharge: 04/29/23 Primary Care Physician: Dr. Redd Carney MD Consultations 04/27/23 14:39 Consult: Cardiology Routine Consulting Provider: Joan Mai Reason for Consult: NSTEMI EMERGENT Consult: No MD Notified: Yes Date Notified: 04/27/23 Time Notified: 13:00 Method of Notification: Verbal Reason For Visit: NSTEMO\I Diagnosis Discharge Diagnosis (1) Non-ST elevation [place] (NSTEMI): Status: Acute Code(s): I21.4 - Non-ST elevation (NSTEMI) myocardial infarction (2) Atherosclerotic heart disease of [place] coronary artery without angina pectoris: Status: Chronic Code(s): I25.10 - Atherosclerotic heart disease of [place] coronary artery without angina pectoris (3) H/O coronary artery bypass surgery: Status: Chronic Code(s): Z95.1 - Presence of aortocoronary bypass graft (4) History of coronary artery stent placement: Status: Chronic Code(s): Z95.5 - Presence of coronary angioplasty implant and graft (5) Essential hypertension: Status: Chronic Code(s): I10 - Essential (primary) hypertension (6) Hyperlipidemia: Status: Chronic Code(s): E78.5 - Hyperlipidemia, unspecified Medications at Discharge Home Medications magnesium gluconate 12.5 mg magnesium (250 mg) tablet 250 mg PO DAILY 01/28/21 ascorbate calcium (vitamin C) 500 mg tablet 500 mg PO DAILY 10/26/21 mecobalamin (vitamin B12) 5,000 mcg lozenge 5,000 mcg PO DAILY 10/26/21 red yeast rice 600 mg capsule 600 mg PO DAILY 10/26/21 pregabalin 150 mg capsule 150 mg PO BID 02/27/22 cholecalciferol (vitamin D3) 25 mcg (1,000 unit) capsule 25 mcg PO DAILY 06/04/22 isosorbide mononitrate 30 mg tablet,extended release 24 hr 30 mg PO DAILY #30 tabs 06/25/22 ranolazine 1,000 mg tablet,extended release,12 hr 1,000 mg PO BID #180 tabs 06/25/22 citalopram 40 mg tablet 40 mg PO DAILY #90 tabs 08/22/22 nitroglycerin 0.4 mg sublingual tablet 0.4 mg sublingual Q5-15M PRN chest pain #25 tabs 10/15/22 metformin 500 mg tablet 1,000 mg PO BID 01/21/23 ezetimibe 10 mg tablet 10 mg PO DAILY 03/11/23 losartan 25 mg tablet 12.5 mg PO DAILY 03/11/23 albuterol sulfate 90 mcg/actuation aerosol inhaler 1 puff inhalation Q6H PRN shortness of breath or wheezing 04/27/23 doxycycline monohydrate 100 mg capsule 100 mg PO Q12H 04/27/23 semaglutide 1 mg/dose (4 mg/3 mL) subcutaneous pen injector (Ozempic) 1 mg subcut QWEEK 04/27/23 heparin (porcine) 25,000 unit/250 mL (100 unit/mL) in dextrose 5 % IV 25,000 unit continuous IV infusion .Q25H 1 day #1 mL 04/29/23 heparin (porcine) 5,000 unit/mL injection solution 0 unit (0 mL) IV UD PRN dose adjustment 1 day #1 mL 04/29/23 Hospital Course Operations None Procedures Cardiac catheterization, EKG and - (Chest x-ray) Summary of Care Provided Minutes Spent on Discharge: 25 Hospital Course: Patient is a 68-year-old female who presented to [facility] ED o n 04/27/2023 with shortness of breath and chest pain. Short hospital course as noted below. NSTEMI: Presented with chest discomfort radiating to back and shoulders patient reported was similar to pain with previous stents and bypass surgery. Extensive cardiac history noted. Cardiology followed, s/p left heart cath on 04/29 with several notable findings. Severe atherosclerosis with in-stent restenosis was noted in the midportion of the SVG graft as well as a lesion at the distal part of the vein graft around 80% stenosed. Cardiology felt that this was the likely culprit lesion for patient's NSTEMI. ? Cardiology recommended the patient be transferred to [facility] for further evaluation for complex PCI versus repeat CABG. Patient was continued on heparin drip on discharge, home Plavix was held. Home Ranexa, isosorbide, losartan and Zetia were also continued. Patient notably was intolerant to statins in the past, was recommended that an injectable be suggested at her next outpatient visit. Discharge diagnoses: ? NSTEMI type I ? CAD with history of CABG and multiple stents ? Hypertension ? Hyperlipidemia ? Type 2 diabetes ? Depression Total clinical time spent by myself addressing the patient's discharge needs: 25 minutes. Physical Exam Const alert, oriented x3 and no apparent distress Constitutional Narrative: Pleasant elderly female, obese, chronically ill-appearing, laying comfortably in bed, conversing normally, no acute distress. General Appearance: cooperative and comfortable HEENT normocephalic, head/scalp atraumatic, hearing grossly normal bilaterally, nasal mucous membranes and turbinates normal and moist oral mucous membranes Eyes PERRL, EOMs intact bilaterally and conjunctivae normal Neck full ROM, no lymphadenopathy and supple Lymph Lymphatic: no lymphadenopathy noted Chest inspection of chest normal Resp normal respiratory effort, normal air movement, no use of accessory muscles and clear to auscultation bilaterally Cardio regular rate, regular rhythm, no murmurs and peripheral pulses 2+ throughout GI normal to inspection, nondistended, normoactive bowel sounds, soft to palpation, non-tender and non-distended Back/Spine normal ROM Extremity normal to inspection, full ROM and no pedal edema Skin no rashes or lesions noted Psych mental status grossly normal Weight / BMI Weight Weight: 87.4 kg Body Mass Index (BMI) 32.1 ABG / Lab / Microbiology Data 04/29/23 04:17 04/29/23 04:17 Laboratory: Laboratory Results - last 24 hr 04/28/23 14:48: APTT 55.5 H 04/28/23 16:38: POC Glucose 178 H 04/28/23 20:53: APTT 58.9 H 04/28/23 21:07: POC Glucose 165 H 04/29/23 03:05: APTT 65.4 H 04/29/23 04:17: WBC 9.1, RBC 3.97 L, Hgb 11.5 L, Hct 36.8 L, MCV 92.7, MCH 29.0, MCHC 31.3 L, RDW Std Deviation 46.5 H, RDW Coeff of Nancy 13.6, Plt Count 214, MPV 11.1, Immature Gran % (Auto) 0.600, Neut % (Auto) 56.8, Lymph % (Auto) 33.0, [place] % (Auto) 8.3, Eos % (Auto) 1.0, Baso % (Auto) 0.3, Absolute Neuts (auto) 5.2, Absolute Lymphs (auto) 2.99, Nucleated RBC % 0, Sodium 141, Potassium 3.5, Chloride 107, Carbon Dioxide 28.0, Anion Gap 6, BUN 13, Creatinine 0.78, Estim Creat Clear Calc 47.78, Est GFR (MDRD) Af Amer 94, Est GFR (MDRD) Non-Af 78, BUN/Creatinine Ratio 16.6, Glucose 129 H, Calcium 8.3 L 04/29/23 06:09: POC Glucose 124 H 04/29/23 12:34: POC Glucose 112 H Microbiology: Microbiology 04/27/23 Unknown Nasal Secretion SARS-CoV-2 Antigen (Rapid) - Final D/C Instructions Discharge Diet: No restrictions Weight Bearing Status: Full weight bearing Meaningful Use Info Meaningful Use Diagnoses (Choose all that apply): None applicable Discharge Plan Admission Admit Date/Time: 04/27/23 12:44 Primary Reason for Your Visit: NSTEMI Attending Provider: Helio Yuen Primary Care Provider: Redd Carney Consulting Providers: Joan Mai; Jose De Jesus Edge Instructions Additional Instructions / Restrictions: Patient transferred to [facility] for further care per cardiology recommendations. Heparin drip continued on discharge, held home Plavix per cardiology recommendations. Discharge Orders/Prescriptions Prescriptions: New heparin (porcine) 5,000 unit/mL Solution 0 unit IV UD PRN (Reason: dose adjustment) 1 Days Qty: 1 0RF heparin (porcine) in 5 % dex 25,000 unit/250 mL(100 unit/mL) Parenteral Solution 25,000 unit continuous IV infusion .Q25H 1 Days Qty: 1 0RF Protocol: NSTEMI / Thrombolytic Wt-Based Heparin Condition: Patient Weight (kg): THROMBOLYTIC PROTOCOL Dose/Route: Initial Heparin Bolus (Vial: 5000 units/ml) Instruction: Initial Heparin Infusion Rate (25,000 units/250ml D5W) Condition: 30-40 kg Dose/Route: 2,000 units (0.4 ml) Instruction: 400 units/hr Condition: 40.1-50 kg Dose/Route: 3,000 units (0.6 ml) Instruction: 550 units/hr Condition: 50.1-60 kg Dose/Route: 3,500 units (0.7 ml) Instruction: 700 units/hr Condition: 60.1-70 kg Dose/Route: 4,000 units (0.8 ml) Instruction: 800 units/hr Condition: 70.1-80 kg Dose/Route: 4,000 units (0.8 ml) Instruction: 900 units/hr Condition: >80 kg Dose/Route: 4,000 units (0.8 ml) Instruction: 1000 units/hr Protocol Text: Heparin Weight Based: THROMBOLYTIC aPTT: <41 Bolus w/Heparin: 1,000 units Stop Heparin infusion: 0 Rate change (units/hr): Increase 200 units (+2ml/hr) Repeat aPTT: 6 hours after rate change aPTT: 41-54 Bolus w/Heparin: 0 Stop Heparin infusion: 0 Rate change (units/hr): Increase 100 units (+1ml/hr) Repeat aPTT: 6 hours after rate change aPTT: 55-67 *GOAL* NOTE: aPTT is NOT at goal therapy unless TWO consecutive aPTT levels are within goal range-- Bolus w/Heparin: 0 Stop Heparin infusion: 0 Rate change (units/hr): 0 Repeat aPTT: 6 hours after aPTT results, unless second aPTT in a row in goal and therapy has ran >24 hours, then next morning aPTT: 68-79 Bolus w/Heparin: 0 Stop Heparin infusion: 0 Rate change (units/hr): Decrease 100 units (-1 ml/hr) Repeat aPTT: 6 hours after rate change aPTT: 80-92 Bolus w/Heparin: 0 Stop Heparin infusion: 30 minutes Rate change (units/hr): Decrease 100 units (-1 ml/hr) Repeat aPTT: 6 hours after rate change aPTT: 93-104 Bolus w/Heparin: 0 Stop Heparin infusion: 1 hour Rate change (units/hr): Decrease 200 units (-2 ml/hr) Repeat aPTT: 6 hours after rate change aPTT: >104 Bolus w/Heparin: 0 Stop Heparin infusion: 90 minutes Rate change (units/hr): Decrease 300 units (-3 ml/hr) Repeat aPTT: 6 hours after rate change Is an initial BOLUS dose to be given? Yes Continued red yeast rice 600 mg capsule 600 mg PO DAILY Rx Instructions: give with meal/snack mecobalamin (vitamin B12) 5,000 mcg lozenge 5,000 mcg PO DAILY Rx Instructions: allow to dissolve in mouth OR may chew lightly before swallowing ascorbate calcium (vitamin C) 500 mg tablet 500 mg PO DAILY pregabalin 150 mg capsule 150 mg PO BID Patient Comments: TAKE 1 CAPSULE BY MOUTH TWICE DAILY FOR 30 DAYS (TAKE ONE CAPSULE AT DINNER AND ONE CAPSULE BEFORE BED) isosorbide mononitrate 30 mg tablet extended release 24 hr 30 mg PO DAILY Qty: 30 11RF ranolazine 1,000 mg tablet extended release 12 hr 1,000 mg PO BID Qty: 180 3RF cholecalciferol (vitamin D3) 25 mcg (1,000 unit) capsule 25 mcg PO DAILY magnesium gluconate 12.5 mg magne- sium (250 mg) Tablet 250 mg PO DAILY metformin 500 mg tablet 1,000 mg PO BID albuterol sulfate 90 mcg/actuation HFA aerosol inhaler 1 puff INHALATION Q6H PRN (Reason: shortness of breath or wheezing) doxycycline monohydrate 100 mg capsule 100 mg PO Q12H Rx Instructions: X7D FIRST DOSE 04/26 Ozempic 1 mg/dose (4 mg/3 mL) pen injector 1 mg SUBCUT QWEEK citalopram 40 mg tablet 40 mg PO DAILY Qty: 90 3RF nitroglycerin 0.4 mg tablet, sublingual 0.4 mg sublingual Q5-15M PRN (Reason: chest pain) Qty: 25 3RF Rx Instructions: do not exceed 3 doses per episode losartan 25 mg tablet 12.5 mg PO DAILY ezetimibe 10 mg tablet 10 mg PO DAILY Discontinued clopidogrel 75 mg tablet See Rx Instructions .ROUTE .COMPLEX Qty: 90 3RF Dose Instruction: Take 1 tablet by mouth once daily Rx Instructions: Take 1 tablet by mouth once daily Referrals / Follow Up: Redd Carney MD [Primary Care Provider] - Disposition Disposition (needs filled in before D/C Order can be placed): Acute Care Hospital Charges/Coding Visit Charges Inpatient E&M: 31995 Disch Hosp
--- NOTE | 2023-04-29 14:13 | PHA.DC.MR.R ---
Pharmacy [place] Med Reconciliation Pharmacy Service has performed discharge medication reconciliation for this patient. The patient's discharge medication list was reviewed for discrepancies and discrepancies were resolved. Medications at Discharge Home Medications magnesium gluconate 12.5 mg magnesium (250 mg) tablet 250 mg PO DAILY 01/28/21 ascorbate calcium (vitamin C) 500 mg tablet 500 mg PO DAILY 10/26/21 mecobalamin (vitamin B12) 5,000 mcg lozenge 5,000 mcg PO DAILY 10/26/21 red yeast rice 600 mg capsule 600 mg PO DAILY 10/26/21 pregabalin 150 mg capsule 150 mg PO BID 02/27/22 cholecalciferol (vitamin D3) 25 mcg (1,000 unit) capsule 25 mcg PO DAILY 06/04/22 isosorbide mononitrate 30 mg tablet,extended release 24 hr 30 mg PO DAILY #30 tabs 06/25/22 ranolazine 1,000 mg tablet,extended release,12 hr 1,000 mg PO BID #180 tabs 06/25/22 citalopram 40 mg tablet 40 mg PO DAILY #90 tabs 08/22/22 nitroglycerin 0.4 mg sublingual tablet 0.4 mg sublingual Q5-15M PRN chest pain #25 tabs 10/15/22 metformin 500 mg tablet 1,000 mg PO BID 01/21/23 ezetimibe 10 mg tablet 10 mg PO DAILY 03/11/23 losartan 25 mg tablet 12.5 mg PO DAILY 03/11/23 albuterol sulfate 90 mcg/actuation aerosol inhaler 1 puff inhalation Q6H PRN shortness of breath or wheezing 04/27/23 doxycycline monohydrate 100 mg capsule 100 mg PO Q12H 04/27/23 semaglutide 1 mg/dose (4 mg/3 mL) subcutaneous pen injector (Ozempic) 1 mg subcut QWEEK 04/27/23 heparin (porcine) 25,000 unit/250 mL (100 unit/mL) in dextrose 5 % IV 25,000 unit continuous IV infusion .Q25H 1 day #1 mL 04/29/23 heparin (porcine) 5,000 unit/mL injection solution 0 unit (0 mL) IV UD PRN dose adjustment 1 day #1 mL 04/29/23
[2023-04-29] MEDS: HEPARIN/D5w 25,000 UNITS 25,000 UNITS/250 ML IV.SOLN. 8 UNITS CONT INF (15:24)
--- NOTE | 2023-04-29 15:51 | CHAPLAIN ---
Type of Pastoral Visit ___ Initial Visit ___ Follow-up Visit ___ On-call Visit ___ General Patient Visit ___ Spiritual Assessment ___ Family Conference ___ Bereavement ___ Rapid Response ___ Code Blue ___ Other (describe below) Pastoral Care Referral From ___ Patient ___ Family ___ Nurse ___ Physician ___ Motor And Generator Brush Cutter ___ Junior Database Administrator ___ Other (describe below) Sacrament/Intervention ___ Active listening ___ Anointing ___ Roman Catholic ___ Bereavement ___ Communion ___ Bindu exploration ___ ___ Life review ___ Prayer ___ Reconciliation ___ Sacrament of Sick ___ Supportive presence ___ Wedding ___ Other (describe below) Pastoral Comments patient is sleeping soundly at time of attempted visit and did not disturb
[2023-04-29 22:57] LABS: ACT Activated Clotting Time 155 sec (74-137)
== END 2023-04-29 16:56 | disposition short-term general hospital (02) | DRG 281 ==
LOC: ED 12:36 → PCU 14:22
PROVIDERS: Internal Medicine; Admitting Provider Internal Medicine; Emergency Provider Emergency Medicine; PCP Family Medicine; Visit Provider Hospitalist
DX: I21.4 Non-ST elevation (NSTEMI) myocardial infarction (principal); I25.810 Atherosclerosis of coronary artery bypass graft(s) without angina pectoris; T82.855A Stenosis of coronary artery stent, initial encounter; E11.42 Type 2 diabetes mellitus with diabetic polyneuropathy; I10 Essential (primary) hypertension; F32.A Depression, unspecified; E78.00 Pure hypercholesterolemia, unspecified; I25.10 Atherosclerotic heart disease of native coronary artery without angina pectoris; I25.2 Old myocardial infarction; J06.9 Acute upper respiratory infection, unspecified; E66.9 Obesity, unspecified; X58.XXXA Exposure to other specified factors, initial encounter; Z95.1 Presence of aortocoronary bypass graft; Z68.32 Body mass index [BMI] 32.0-32.9, adult; Z95.5 Presence of coronary angioplasty implant and graft; Z79.02 Long term (current) use of antithrombotics/antiplatelets; Z79.84 Long term (current) use of oral hypoglycemic drugs; Z79.899 Other long term (current) drug therapy; Z86.16 Personal history of COVID-19; Z87.891 Personal history of nicotine dependence
CPT/HCPCS: 36415; 71045; 80048; 82962; 83735; 84484; 85025; 85347; 85610; 85730; 87811; 93005; 93306; 93459; 99152; 99153; 99284; J7030; A4216; C1769; C1894; J2405; J3490; Q9967

== ENCOUNTER 2023-05-18 07:17 | Emergency (ER) | payer MEDICARE, SELFPAY ==
[2023-05-18 07:18] VITALS: BP 188/68; PULSE 53; RESP 14; TEMP 36.4; O2SAT 99; BMI 33.6
--- NOTE | 2023-05-18 07:30 | EKG12_ITS ---
Test Reason : CP Blood Pressure : / mmHG Vent. Rate : 053 BPM Atrial Rate : 053 BPM P-R Int : 172 ms QRS Dur : 092 ms QT Int : 500 ms P-R-T Axes : 083 032 180 degrees QTc Int : 469 ms Sinus bradycardia with Premature ventricular complexes or Fusion complexes Confirmed by CORINNE SON, ALIE ([id number]), newspaper editor ISRAEL NAVARRETE ([id number]) on 05/20/2023 9:44:32 AM Referred By: KOLTON Confirmed By:ALIE SUN MD
--- NOTE | 2023-05-18 07:30 | RAD_ITS ---
EXAM: XR CHEST, 1 VIEW CLINICAL INDICATION: chest pain TECHNIQUE: Frontal view of the chest. COMPARISON: Previous chest radiograph of 04/27/2023. FINDINGS: LUNGS AND PLEURAL SPACES: Unremarkable. No consolidation or edema. No pneumothorax. No effusion. HEART: Findings of previous CABG are again noted along with coronary artery stents. Heart size remains mildly enlarged with normal pulmonary vasculature. MEDIASTINUM: Previous median sternotomy. Stable mild elongation and calcification of the thoracic aorta. BONES/JOINTS: Thoracic degenerative spurring. No acute osseous abnormality. SOFT TISSUES: Unremarkable. RAD/Chest 1 View (Portable) IMPRESSION: No significant interval change. Previous median sternotomy and CABG. No radiographic evidence of acute cardiopulmonary disease. Electronically Signed: Uvaldo Franco MD at 7:56 EST ,
--- NOTE | 2023-05-18 07:31 | ED.VIS.CHEST ---
HPI History of Present Illness Chief Complaint: Chest Pain Detail of Chief Complaint: Chest pain Narrative Narrative: Patient presents with chest discomfort that started around 3 AM and woke her up from sleep. Before coming into the hospital she took a nitro and the pain finally resolved. She described it as a heavy pressure. Pain was in the center of her chest, radiated towards her right shoulder. She felt short of breath with it and dizzy. Patient tells me she had a heart attack 3 weeks ago and got 3 stents at [facility]. Patient on Brilinta currently. Her pain is currently resolved. She is also had a little bit of cough for about 3 weeks. She had a mild sore throat and runny nose for couple days. [facility] Medical History Acute kidney failure Alcohol use Ambulates with cane Anemia Anxiety and depression Arthritis Atherosclerosis of coronary artery 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 Atherosclerotic heart disease of [place] coronary artery without angina pectoris Back pain Blackout Cardiology follow-up encounter Chest pain Concussion COVID CPAP (continuous positive airway pressure) dependence Diabetes Difficulty chewing Difficulty swallowing Epigastric pain Essential hypertension Former smoker Gastric reflux GERD (gastroesophageal reflux disease) Headache Hiatal hernia High cholesterol History of diverticulitis History of echocardiogram History of heart attack History of irregular heartbeat History of stress test Hyperhomocystinemia Hyperlipidemia Imbalance Injury of back Injury of head and neck Iron deficiency anemia Lymphedema Migraine headache Narcolepsy Obesity Obstructive sleep apnea Peripheral neuropathy Post-menopausal Proliferative diabetic retinopathy Restless legs Restless legs syndrome (RLS) Rheumatoid arthritis Shortness of breath on exertion Sleep apnea Type 2 diabetes mellitus Wears glasses Home Medications ascorbate calcium (vitamin C) 500 mg tablet 500 mg PO DAILY 10/26/21 [History Last Taken 05/17/23] red yeast rice 600 mg capsule 600 mg PO DAILY 10/26/21 [History Last Taken 05/17/23] pregabalin 150 mg capsule 150 mg PO BID 02/27/22 [History Last Taken 05/17/23] cholecalciferol (vitamin D3) 25 mcg (1,000 unit) capsule 25 mcg PO DAILY 06/04/22 [History Last Taken 05/17/23] isosorbide mononitrate 30 mg tablet,extended release 24 hr 30 mg PO DAILY #30 tabs 06/25/22 [Rx Last Taken 05/17/23] ranolazine 1,000 mg tablet,extended release,12 hr 1,000 mg PO BID #180 tabs 06/25/22 [Rx Last Taken 05/17/23] nitroglycerin 0.4 mg sublingual tablet 0.4 mg sublingual Q5-15M PRN chest pain #25 tabs 10/15/22 [Rx Last Taken Unknown] metformin 500 mg tablet 1,000 mg PO BID 01/21/23 [History Last Taken 05/17/23] ezetimibe 10 mg tablet 10 mg PO DAILY 03/11/23 [History Last Taken 05/17/23] losartan 25 mg tablet 50 mg PO DAILY 03/11/23 [History Last Taken 05/17/23] albuterol sulfate 90 mcg/actuation aerosol inhaler 1 puff inhalation Q6H PRN shortness of breath or wheezing 04/27/23 [History Last Taken Unknown] semaglutide 1 mg/dose (4 mg/3 mL) subcutaneous pen injector (Ozempic) 1 mg subcut QWEEK 04/27/23 [History Last Taken 05/16/23] aspirin 81 mg tablet,delayed release (Adult Aspirin Regimen) 81 mg PO DAILY 05/18/23 [History Last Taken 05/17/23] citalopram 40 mg tablet 20 mg PO DAILY 05/18/23 [History Last Taken 05/17/23] fenofibrate nanocrystallized 145 mg tablet 145 mg PO DAILY 05/18/23 [History Last Taken 05/17/23] isosorbide mononitrate 60 mg tablet,extended release 24 hr 60 mg PO DAILY #30 tabs 05/18/23 [Rx Last Taken Unknown] losartan 50 mg tablet 50 mg PO BID #60 tabs 05/18/23 [Rx Last Taken Unknown] metoprolol succinate 25 mg tablet,extended release 24 hr 25 mg PO DAILY 05/18/23 [History Last Taken 05/17/23] pantoprazole 40 mg tablet,delayed release 40 mg PO DAILY 05/18/23 [History Last Taken 05/17/23] ticagrelor 90 mg tablet (Brilinta) 90 mg PO Q12H 05/18/23 [History Last Taken 05/17/23] Allergy/AdvReac Type Severity Reaction Status Date / Time aspirin Allergy Rash Verified 05/18/23 07:18 banana Allergy Hives Verified 05/18/23 07:18 canagliflozin [From Invokana] Allergy Anaphylaxis Verified 05/18/23 07:18 kiwi Allergy Hives Verified 05/18/23 07:18 niacin Allergy Rash Verified 05/18/23 07:18 Penicillins [PCN] Allergy Hives Verified 05/18/23 07:18 Sulfa (Sulfonamide Allergy Hives Verified 05/18/23 07:18 Antibiotics) erythromycin base AdvReac Other Verified 05/18/23 07:18 [From Staticin] ethyl alcohol [From Staticin] AdvReac Other Verified 05/18/23 07:18 gemfibrozil [From Lopid] AdvReac Other Verified 05/18/23 07:18 ibuprofen AdvReac Upset Verified 05/18/23 07:18 Stomach levofloxacin [From Levaquin] AdvReac Upset Verified 05/18/23 07:18 Stomach lisinopril AdvReac cough Verified 05/18/23 07:18 propoxyphene AdvReac Upset Verified 05/18/23 07:18 [From Darvocet-N] Stomach spironolactone AdvReac hyperkalemi Verified 05/18/23 07:18 a Fetyvzo-TKV-ZzC Reductase AdvReac unknown Verified 05/18/23 07:18 Inhibitor [Adjvlar-Buv-Kph Reductase Inhibitor] tramadol AdvReac Other Verified 05/18/23 07:18 Family History Mother Heart disease Father Heart disease Diabetes Surgical History H/O coronary artery bypass surgery (10/2001) History of cataract surgery History of cholecystectomy History of colonoscopy with polypectomy History of coronary artery stent placement (08/29/17) History of hysterectomy History of left heart catheterization History of tonsillectomy Social History household members: spouse Smoking Status: Former smoker how long ago did patient quit smokin alcohol intake: current alcohol intake frequency: holidays/special occasions only Alcohol type: beer substance use type: does not use what type of physical activity do you participate in: walking frequency: 5-6 times per week ROS ROS ED Review of Systems ROS Unobtainable: other Constitutional Constitutional ED: Reports lethargy; Denies chills, fever(s), sweats or weight loss Eyes Eyes: Denies blurry vision, change in vision or diplopia ENT ENT ED: Reports sore throat; Denies rhinorrhea Cardiovascular Cardiovascular: Reports chest pain; Denies orthopnea or racing heartbeat Respiratory/Chest Respiratory/Chest: Reports cough, dyspnea and dyspnea on exertion; Denies orthopnea or sputum Gastrointestinal Gastrointestinal: Denies abdominal pain, diarrhea, nausea or vomiting Genitourinary Genitourinary ED: Denies dysuria, hematuria or urinary frequency Musculoskeletal Musculoskeletal: Denies arthralgias, back pain, myalgias or neck pain Integumentary Denies abscess, Abrasions or rash Neurologic Neurologic: Denies headache(s) or weakness Psychiatric Psychiatric: Denies anxiety, depression or suicidal thoughts Endocrine Endocrinology: Denies polydipsia, polyphagia or polyuria Hematologic/Lymphatic Hematologic/Lymphatic: Denies easy bleeding, easy bruising or lymphadenopathy Allergic/Immunologic Allergic/Immunologic ED: Denies mouth swelling, tongue swelling or urticaria EXAM Physical Exam Const Vital Signs: 05/18/23 07:18 05/18/23 07:17 05/18/23 07:30 Temperature 97.6 F L Temperature Source Temporal Pulse Rate 53 L Respiratory Rate 14 Respiratory Effort Short of Breath Blood Pressure 188/68 H Blood Pressure Mean 108 Pulse Ox 99 Oxygen Delivery Method Room Air Nasal Cannula 05/18/23 09:01 Temperature Temperature Source Pulse Rate 49 L Respiratory Rate Respiratory Effort Blood Pressure 114/49 L Blood Pressure Mean Pulse Ox Oxygen Delivery Method Positive well nourished and well developed General Appearance ED: well developed and NAD HEENT Reports TM's clear and moist mucous membranes normocephalic and atraumatic; Negative for trauma or tenderness Tympanic Membrane ED: Yes TM's clear Eyes PERRL and EOMs intact bilaterally General Eye ED: Negative for pale conjunctiva or scleral icterus Neck no lymphadenopathy, supple and no JVD General: Negative for tenderness Chest Wall inspection of chest normal and palpation of chest normal Chest: Negative for tenderness Resp normal respiratory effort and clear to auscultation bilaterally Effort and Inspection: Negative for respiratory distress or pain with movement Auscultation: Negative for rhonchi, wheezes or diminished lung sounds Cardio regular rate, regular rhythm, S1 normal heart sound, S2 normal heart sound and no murmurs Peripheral Pulses: pulses 2+ throughout GI normal to inspection, nondistended, normoactive bowel sounds, soft to palpation, non-tender, non-distended and no masses Back/Spine no CVA tenderness and no thoracic nor lumbar tenderness Extremity normal to inspection General Extremety ED: Negative for edema General Extremity: Negative for edema Neuro oriented x3, CN's II-XII intact bilaterally, no sensory deficits noted and gait normal Sensorium / Orientation: awake, alert, oriented to person, oriented to place and oriented to time Motor Exam: strength 5/5 throughout and strength abnormal Psych mental status grossly normal Skin no rashes or lesions noted and no wounds Heart Score History: Moderately Suspicious ECG: Nonspecific Repolarization Age: >/= 65 years Risk Factors: >/= 3 Risk Factors or History of CAD Troponin: </= Normal Limit Score: 6 MDM MDM MDM Narrative Medical decision making narrative: Patient presents with chest pain with recent cardiac stenting to her RCA 3 weeks ago. In the differential would be acute coronary syndrome versus GI etiology versus less likely PE given that her pain resolved with nitro. EKG obtained on arrival showed a sinus rhythm with a rate of [address] changes. When compared with prior EKG no significant changes noted. CBC with differential obtained showed white count of 9.8 with hemoglobin of 12.5 and platelet count of 308. Chemistries unremarkable. Troponin initially was 36. Patient had an inch Nitropaste placed to the anterior chest wall. Her heart score is a 6. Patient considered high risk. She is describing intermittent chest discomfort since being in the emergency department that is still pressure-like in the center of her chest. We will discuss case with hospitalist evaluate for admission. After discussion with hospitalist I was asked to speak to cardiology and I spoke with Dr. Osorio. Patient is known well to him. He saw the patient in the emergency department. He recommended I obtain a delta troponin. Delta troponin was normal and it was felt that patient would be medical management and could be safely discharged to home. He asked that I start patient on losartan 50 mg twice daily and isosorbide 60 mg every day. I will write these prescriptions for the patient. She will be discharged to home and advised to return if worsening pain, increasing shortness of breath, or condition worsening way. Lab Data Attestation: I reviewed the patient's lab results. Labs: Laboratory Results - last 24 hr 05/18/23 05/18/23 07:30 10:10 WBC 9.8 RBC 4.30 Hgb 12.5 Hct 38.6 MCV 89.8 MCH 29.1 MCHC 32.4 RDW Std Deviation 43.8 RDW Coeff of Nancy 13.5 Plt Count 308 MPV 10.8 Immature Gran % (Auto) 0.800 Neut % (Auto) 66.4 Lymph % (Auto) 21.1 [place] % (Auto) 9.4 Eos % (Auto) 1.9 Baso % (Auto) 0.4 Absolute Neuts (auto) 6.5 Absolute Lymphs (auto) 2.06 Nucleated RBC % 0 Sodium 137 Potassium 4.2 Chloride 105 Carbon Dioxide 29.0 Anion Gap 3 L BUN 14 Creatinine 0.93 Estim Creat Clear Calc 51.37 Est GFR (MDRD) Af Amer 77 Est GFR (MDRD) Non-Af 64 BUN/Creatinine Ratio 15.1 Glucose 172 H Calcium 9.2 Troponin I High Sens 36 31 Radiography Diagnostic Testing: Clinical Impression(s) from Imaging Studies Chest X-Ray 05/18/23 07:30 IMPRESSION: No significant interval change. Previous median sternotomy and CABG. No radiographic evidence of acute cardiopulmonary disease. Electronically Signed: Uvaldo Franco MD at 7:56 EST , 1 view chest x-ray obtained interpreted by myself as no evidence of infiltrate or pneumothorax or acute process. Radiology in agreement. EKG Initial EKG: Attestation: I personally reviewed and interpreted this EKG as follows: Comments: Sinus bradycardia with rate of [address] changes Prior EKG tracings: available for review Prior: Unchanged Discharge Plan Triage Chief Complaint: Chest Pain ED Provider: Nacho Helm Dx/Rx/DC Orders Clinical Impression: History of coronary artery disease, Chest pain, Hypertension Instructions: ED Chest Pain, Uncertain Cause Prescriptions: New losartan 50 mg tablet 50 mg PO BID Qty: 60 0RF isosorbide mononitrate 60 mg tablet extended release 24 hr 60 mg PO DAILY Qty: 30 0RF No Action red yeast rice 600 mg capsule 600 mg PO DAILY Rx Instructions: give with meal/snack ascorbate calcium (vitamin C) 500 mg tablet 500 mg PO DAILY pregabalin 150 mg capsule 150 mg PO BID Patient Comments: TAKE 1 CAPSULE BY MOUTH TWICE DAILY FOR 30 DAYS (TAKE ONE CAPSULE AT DINNER AND ONE CAPSULE BEFORE BED) isosorbide mononitrate 30 mg tablet extended release 24 hr 30 mg PO DAILY Qty: 30 11RF ranolazine 1,000 mg tablet extended release 12 hr 1,000 mg PO BID Qty: 180 3RF cholecalciferol (vitamin D3) 25 mcg (1,000 unit) capsule 25 mcg PO DAILY metformin 500 mg tablet 1,000 mg PO BID albuterol sulfate 90 mcg/actuation HFA aerosol inhaler 1 puff INHALATION Q6H PRN (Reason: shortness of breath or wheezing) Ozempic 1 mg/dose (4 mg/3 mL) pen injector 1 mg SUBCUT QWEEK metoprolol succinate 25 mg tablet extended release 24 hr 25 mg PO DAILY pantoprazole 40 mg tablet,delayed release (DR/EC) 40 mg PO DAILY aspirin [Adult Aspirin Regimen] 81 mg tablet,delayed release (DR/EC) 81 mg PO DAILY fenofibrate nanocrystallized 145 mg tablet 145 mg PO DAILY Brilinta 90 mg tablet 90 mg PO Q12H citalopram 40 mg tablet 20 mg PO DAILY nitroglycerin 0.4 mg tablet, sublingual 0.4 mg sublingual Q5-15M PRN (Reason: chest pain) Qty: 25 3RF Rx Instructions: do not exceed 3 doses per episode losartan 25 mg tablet 50 mg PO DAILY ezetimibe 10 mg tablet 10 mg PO DAILY Primary Care Provider: Redd Carney Referrals: Redd Carney MD [Primary Care Provider] - Activity Restrictions/Additional Instructions: Follow-up with Dr. Haile Nguyen as instructed by him. Dr. Osorio wanted you to start losartan 50 mg twice a day Also isosorbide mononitrate 60 mg every day Disposition Disposition: Home, Self Care
[2023-05-18 07:43] LABS: Absolute Lymphocyte Count 2.06 X10^3/uL (0.83-4.51); Absolute Neutrophil Count 6.5 X10^3/uL (2.0-7.7); Basophil# 0.04 X10^3/uL; Basophil% 0.4 % (0-1); Eosinophil# 0.19 X10^3/uL; Eosinophils% 1.9 % (0-5); Hematocrit 38.6 % (37-47); Hemoglobin 12.5 g/dL (12.0-15.0); Lymphocyte # 2.06 X10^3/ul (0.83-4.51); Lymphocyte % 21.1 % (19-41); Mean Corp Hgb Conc 32.4 g/dL (32-36); Mean Corpuscular Hgb 29.1 pg (27.0-32.0); Mean Corpuscular Volume 89.8 fL (81-99); Mean Platelet Vol. 10.8 fl (6.2-12.0); Monocyte# 0.92 X10^3/uL; Monocyte% 9.4 % (0-10); NRBC Flagged by Analyzer 0 % (0-5); Neutrophil # 6.48 X10^3/uL (2.7-7.7); Neutrophil % 66.4 % (47-70); Platelet Count 308 K/mm3 (150-450); RBC Distribution Width CV 13.5 % (11.6-14.6); RBC Distribution Width SD 43.8 fl (35.1-43.9); White Blood Count 9.8 K/mm3 (4.4-11.0)
[2023-05-18 08:03] LABS: Anion Gap 3 (5-15); BUN 14 mg/dL (7-18); BUN/Creat Ratio 15.1 RATIO (10-20); Calcium,Total 9.2 mg/dL (8.5-10.1); Chloride 105 mmol/L (98-107); Creatinine, Serum 0.93 mg/dL (0.55-1.02); EST Glomerular Filtration Rate 64 mL/min (>60); Est Glom Filt Rate - Afr Amer 77 mL/min (>60); Estimated Creatinine Clearance 51.37 ml/min; Glucose 172 mg/dL (74-106); Potassium 4.2 mmol/L (3.5-5.1); Sodium Level 137 mmol/L (136-145); Troponin-I HS (w/2H Reflex) 36 pg/mL (3.0-54.0)
[2023-05-18] MEDS: 0.9% Normal Saline (1000mL) 1,000 ML 150 ML IV (08:32)
[2023-05-18 09:01] VITALS: BP 114/49; PULSE 49
[2023-05-18] MEDS: Nitroglycerin Oint 1 INCH PACKET TD (09:01)
--- NOTE | 2023-05-18 09:04 | ED.RN ---
PT CONCERNED ABOUT HEART RATE WITH NITRO, SHE REPORTS SHE USUALLY HAS NAUSEA AND DIZZINESS WHEN IT DROPS FROM NITRO TABLET AT HOME. DR RAMIREZ AWARE DR AND T AGREEABLE TO START WITH HALF DOSE AND SEE HOW SHE TOLERATES
[2023-05-18 09:36] LABS: Reflex Troponin-HS? (from REC) Y
[2023-05-18] MEDS: Acetaminophen 500 MG Tablet 1000 MG PO (10:04)
[2023-05-18 10:36] LABS: Troponin-I HS 31 pg/mL (3.0-54.0)
--- NOTE | 2023-05-18 11:05 | CON.PCM.CA_ITS ---
Assessment & Plan Assessment/Plan (1) Chest pain: PLAN: She presents with chest discomfort at this time. This appears to be atypical. I did review the cardiac catheterization report and at this time I do not think that there is any reason to repeat the cardiac catheterization. We can maximize medical therapy. I will recommend that we increase the isosorbide to 60 mg once a day, continue Ranexa, continue beta-alexandra and follow-up in the office. Of communicated this to the patient, the ER physician, and her . (2) Hypertension: PLAN: Blood pressure appears to be elevated at this time I would recommend that we increase the losartan to 50 mg twice a day. (3) History of coronary artery disease: PLAN: She does have a history of known coronary artery disease as noted above. The plan number to continue the current medical therapy as stated above. Thank you for allowing me to participate in the care of your patient. Please don't hesitate to call if any issues arise. HPI Consult Data Date of Consult: 05/18/23 HPI Narrative HPI Narrative: ELSA PUGH, is a 68 F who presents to the emergency room with chest disco mfort. She had presented to the hospital 2 weeks ago with chest discomfort and a non-ST elevation myocardial infarction. She underwent a cardiac catheterization which demonstrated high-grade stenosis of a saphenous vein graft to the right coronary artery, and a YATES to the LAD which was patent with some ostial disease and diffuse disease noted of the seminole left coronary artery system. She was transferred to [facility] where she underwent angioplasty and stenting of the saphenous vein graft to the right coronary artery. She was discharged on medication changes and presents today with chest discomfort to the emergency room again. Her troponin was noted to be 36 and there were plans to admit her. I asked him to repeat her troponin and it was 31. I think that this is coming down from her previous elevated troponin of over 200. Her blood pressure was also noted to be elevated. She is currently not having any significant chest discomfort and her EKG demonstrates evolving T wave inversions in the anterior leads. Her last cardiac catheterization was reviewed. PENDING SALE TO [facility] Medical History Acute kidney failure Alcohol use Ambulates with cane Anemia Anxiety and depression Arthritis Atherosclerosis of coronary artery 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 Atherosclerotic heart disease of seminole coronary artery without angina pectoris Back pain [facility] Card[facility] follow-up encounter Chest pain Concussion COVID CPAP (continuous positive airway pressure) dependence Diabetes Difficulty chewing Difficulty swallowing Epigastric pain Essential hypertension Former smoker Gastric reflux GERD (gastroesophageal reflux disease) Headache Hiatal hernia High cholesterol History of diverticulitis History of echocardiogram History of heart attack History of irregular heartbeat History of stress test Hyperhomocystinemia Hyperlipidemia Imbalance Injury of back Injury of head and neck Iron deficiency anemia Lymphedema Migraine headache Narcolepsy Obesity Obstructive sleep apnea Peripheral neuropathy Post-menopausal Proliferative diabetic retinopathy Restless legs Restless legs syndrome (RLS) Rheumatoid arthritis Shortness of breath on exertion Sleep apnea Type 2 diabetes mellitus Wears glasses Home Medications ascorbate calcium (vitamin C) 500 mg tablet 500 mg PO DAILY 10/26/21 [History Last Taken 05/17/23] red yeast rice 600 mg capsule 600 mg PO DAILY 10/26/21 [History Last Taken 05/17/23] pregabalin 150 mg capsule 150 mg PO BID 02/27/22 [History Last Taken 05/17/23] cholecalciferol (vitamin D3) 25 mcg (1,000 unit) capsule 25 mcg PO DAILY 06/04/22 [History Last Taken 05/17/23] isosorbide mononitrate 30 mg tablet,extended release 24 hr 30 mg PO DAILY #30 tabs 06/25/22 [Rx Last Taken 05/17/23] ranolazine 1,000 mg tablet,extended release,12 hr 1,000 mg PO BID #180 tabs 06/25/22 [Rx Last Taken 05/17/23] nitroglycerin 0.4 mg sublingual tablet 0.4 mg sublingual Q5-15M PRN chest pain #25 tabs 10/15/22 [Rx Last Taken Unknown] metformin 500 mg tablet 1,000 mg PO BID 01/21/23 [History Last Taken 05/17/23] ezetimibe 10 mg tablet 10 mg PO DAILY 03/11/23 [History Last Taken 05/17/23] losartan 25 mg tablet 50 mg PO DAILY 03/11/23 [History Last Taken 05/17/23] albuterol sulfate 90 mcg/actuation aerosol inhaler 1 puff inhalation Q6H PRN shortness of breath or wheezing 04/27/23 [History Last Taken Unknown] semaglutide 1 mg/dose (4 mg/3 mL) subcutaneous pen injector (Ozempic) 1 mg subcut QWEEK 04/27/23 [History Last Taken 05/16/23] aspirin 81 mg tablet,delayed release (Adult Aspirin Regimen) 81 mg PO DAILY 05/18/23 [History Last Taken 05/17/23] citalopram 40 mg tablet 20 mg PO DAILY 05/18/23 [History Last Taken 05/17/23] fenofibrate nanocrystallized 145 mg tablet 145 mg PO DAILY 05/18/23 [History Last Taken 05/17/23] isosorbide mononitrate 60 mg tablet,extended release 24 hr 60 mg PO DAILY #30 tabs 05/18/23 [Rx Last Taken Unknown] losartan 50 mg tablet 50 mg PO BID #60 tabs 05/18/23 [Rx Last Taken Unknown] metoprolol succinate 25 mg tablet,extended release 24 hr 25 mg PO DAILY 05/18/23 [History Last Taken 05/17/23] pantoprazole 40 mg tablet,delayed release 40 mg PO DAILY 05/18/23 [History Last Taken 05/17/23] ticagrelor 90 mg tablet (Brilinta) 90 mg PO Q12H 05/18/23 [History Last Taken 05/17/23] Allergy/AdvReac Type Severity Reaction Status Date / Time aspirin Allergy Rash Verified 05/18/23 07:18 banana Allergy Hives Verified 05/18/23 07:18 canagliflozin [From Invokana] Allergy Anaphylaxis Verified 05/18/23 07:18 kiwi Allergy Hives Verified 05/18/23 07:18 niacin Allergy Rash Verified 05/18/23 07:18 Penicillins [PCN] Allergy Hives Verified 05/18/23 07:18 Sulfa (Sulfonamide Allergy Hives Verified 05/18/23 07:18 Antibiotics) erythromycin base AdvReac Other Verified 05/18/23 07:18 [From Staticin] ethyl alcohol [From Staticin] AdvReac Other Verified 05/18/23 07:18 gemfibrozil [From Lopid] AdvReac Other Verified 05/18/23 07:18 ibuprofen AdvReac Upset Verified 05/18/23 07:18 Stomach levofloxacin [From Levaquin] AdvReac Upset Verified 05/18/23 07:18 Stomach lisinopril AdvReac cough Verified 05/18/23 07:18 propoxyphene AdvReac Upset Verified 05/18/23 07:18 [From Darvocet-N] Stomach spironolactone AdvReac hyperkalemi Verified 05/18/23 07:18 a Ghzrysw-TJM-BsM Reductase AdvReac unknown Verified 05/18/23 07:18 Inhibitor [Ubokxcl-Vqp-Ste Reductase Inhibitor] tramadol AdvReac Other Verified 05/18/23 07:18 Family History Mother Heart disease Father Heart disease Diabetes Surgical History H/O coronary artery bypass surgery (10/2001) History of cataract surgery History of cholecystectomy History of colonoscopy with polypectomy History of coronary artery stent placement (08/29/17) History of hysterectomy History of left heart catheterization History of tonsillectomy Social History household members: spouse Smoking Status: Former smoker how long ago did patient quit smokin alcohol intake: current alcohol intake frequency: holidays/special occasions only Alcohol type: beer substance use type: does not use what type of physical activity do you participate in: walking frequency: 5-6 times per week ROS Constitutional Constitutional: Denies fever(s) or weight loss Eyes Eyes: Reports systems reviewed and no addt'l complaints, except as documented ENT HEENT: Reports systems reviewed and no addt'l complaints, except as documented Cardiovascular Cardiovascular: Denies chest pain at rest, chest pain with activity, dyspnea at rest, dyspnea on exertion, edema, palpitations or paroxysmal nocturnal dyspnea Respiratory/Chest Respiratory/Chest: Denies dyspnea on exertion, productive cough, shortness of breath at rest or shortness of breath with exertion Gastrointestinal Gastrointestinal: Denies change in bowel habits, nausea, vomiting or weight changes Genitourinary Genitourinary: Denies difficulty urinating Musculoskeletal Musculoskeletal: Denies joint stiffness or muscle weakness Integumentary Integumentary: Denies lesions Neurologic Neurologic: Denies dizziness or syncope Psychiatric Psychiatric: Denies anxiety Endocrine Endocrinology: Denies excessive sweating or fatigue Hematologic/Lymphatic Hematologic/Lymphatic: Denies anemia Allergic/Immunologic Allergic/Immunologic: Denies seasonal rhinorrhea Physical Exam Const alert, oriented x3 and no apparent distress General Appearance: cooperative HEENT hearing grossly normal bilaterally Head and Scalp: atraumatic Eyes EOMs intact bilaterally Neck General: normal visual inspection Chest inspection of chest normal and palpation of chest normal Resp normal respiratory effort Auscultation: clear to auscultation bilaterally Cardio regular rate, regular rhythm, S1 normal heart sound and S2 normal heart sound Jugular Venous Distention: JVD GI normal to inspection, nondistended, normoactive bowel sounds Extremity normal capillary refill and no pedal edema Peripheral Pulses: Yes pulses 2+ throughout and femoral pulses present Skin no rashes or lesions noted Neuro oriented x3 and CN's II-XII intact bilaterally Psych Appearance: grossly normal and appropriate Risk Stratification Risk Stratification Applicable: Yes Age >/= 65: Yes >/= 3 CAD Risk Factors (HTN, HLD, DM, family hx of CAD, or current smoker): Yes Aspirin Use in the Past 7 Days: Yes Severe Angina (>/= episodes in 24 hours): No EKG ST Changes >/= 0.5mm: No Positive Cardiac Marker: No DARSHAN Risk Stratification Score: 3 DARSHAN % Risk: 13% Risk Objective Data Vital Signs: Vital Signs Temp Pulse Resp BP Pulse Ox O2 Del Method 97.6 F L 49 L 14 114/49 L 99 Nasal Cannula 05/18/23 07:18 05/18/23 09:01 05/18/23 07:18 05/18/23 09:01 05/18/23 07:18 05/18/23 07:30 Oxygen Delivery Method Nasal Cannula Weight: 202 lb 2.622 oz Body Mass Index (BMI) 33.6 Lab / Micro Data 05/18/23 07:30 05/18/23 07:30 Labs: Laboratory Results - last 24 hr 05/18/23 07:30: WBC 9.8, RBC 4.30, Hgb 12.5, Hct 38.6, MCV 89.8, MCH 29.1, MCHC 32.4, RDW Std Deviation 43.8, RDW Coeff of Nancy 13.5, Plt Count 308, MPV 10.8, Immature Gran % (Auto) 0.800, Neut % (Auto) 66.4, Lymph % (Auto) 21.1, [place]ack[place]ord % (Auto) 9.4, Eos % (Auto) 1.9, Baso % (Auto) 0.4, Absolute Neuts (auto) 6.5, Absolute Lymphs (auto) 2.06, Nucleated RBC % 0, Sodium 137, Potassium 4.2, Chloride 105, Carbon Dioxide 29.0, Anion Gap 3 L, BUN 14, Creatinine 0.93, Estim Creat Clear Calc 51.37, Est GFR (MDRD) Af Amer 77, Est GFR (MDRD) Non-Af 64, BUN/Creatinine Ratio 15.1, Glucose 172 H, Calcium 9.2, Troponin I High Sens 36 05/18/23 10:10: Troponin I High Sens 31 Micro: Microbiology 05/18/23 07:40 Nasal Secretion SARS-CoV-2 & FLU Antigen (Rapid) - Final Cardiology Labs/Tests 05/18/23 07:30: WBC 9.8, RBC 4.30, Hgb 12.5, Hct 38.6, MCV 89.8, MCH 29.1, MCHC 32.4, Plt Count 308, MPV 10.8, Immature Gran % (Auto) 0.800, Neut % (Auto) 66.4, Lymph % (Auto) 21.1, [place]ackelford % (Auto) 9.4, Eos % (Auto) 1.9, Baso % (Auto) 0.4, Absolute Neuts (auto) 6.5, Nucleated RBC % 0, Sodium 137, Potassium 4.2, Chloride 105, Carbon Dioxide 29.0, Anion Gap 3 L, BUN 14, Creatinine 0.93, Est GFR (MDRD) Af Amer 77, Est GFR (MDRD) Non-Af 64, BUN/Creatinine Ratio 15.1, Glucose 172 H, Calcium 9.2 Rhythm: EKG: ECHO: Stress Test: Cardiac Cath: PCI: CT Surgery: Holter monitor: EPS: PPM: CXR: Chest CT Scan: Radiography Diagnostic Testing: Radiology Impression Chest X-Ray 05/18/23 07:30 IMPRESSION: No significant interval change. Previous median sternotomy and CABG. No radiographic evidence of acute cardiopulmonary disease. Electronically Signed: Uvaldo Franco MD at 7:56 EST ,
[2023-05-18 11:31] VITALS: BP 158/87; PULSE 51; RESP 18; O2SAT 97
== END 2023-05-18 11:32 | disposition home or self-care (01) ==
PROVIDERS: Emergency Provider Emergency Medicine; PCP Family Medicine; Visit Provider Emergency Medicine
DX: R07.9 Chest pain, unspecified (principal); E11.42 Type 2 diabetes mellitus with diabetic polyneuropathy; Z95.5 Presence of coronary angioplasty implant and graft; I25.10 Atherosclerotic heart disease of native coronary artery without angina pectoris; Z87.891 Personal history of nicotine dependence; Z79.02 Long term (current) use of antithrombotics/antiplatelets; E78.00 Pure hypercholesterolemia, unspecified; Z79.82 Long term (current) use of aspirin; I10 Essential (primary) hypertension; Z79.899 Other long term (current) drug therapy; Z79.85 Long-term (current) use of injectable non-insulin antidiabetic drugs; Z90.49 Acquired absence of other specified parts of digestive tract; Z90.710 Acquired absence of both cervix and uterus
CPT/HCPCS: 71045; 80048; 84484; 85025; 87428; 93005; 96360; 96361; 99284; J7030; A4216

== ENCOUNTER 2023-06-25 17:02 | Observation (INO) | payer MEDICARE, MEDICAID, SELFPAY ==
[2023-06-25 17:04] VITALS: BP 216/76; PULSE 56; RESP 16; TEMP 36.7; O2SAT 97; BMI 30.8
--- NOTE | 2023-06-25 19:41 | ED.VIS.GI ---
HPI HPI - GI History of Present Illness Chief Complaint: Nausea/Vomiting Informant: patient Nausea/Vomiting/Emesis GI Symptom: Positive for Nausea and Vomiting Onset: Today Quality: Positive for Blood streaks; Negative for Coffee ground or Hematemesis Diarrhea/Melena/Hematochezia GI Symptom: Positive for Melena; Negative for Diarrhea or Hematochezia Onset: Days Stool Quality: Positive for Black Associated Symptoms Associated Symptoms: Positive for Hematuria; Negative for Dysuria or Frequency Narrative Narrative: Patient presents with nausea, vomiting, and melena. Patient states she has had multiple episodes of vomiting over the past week. Patient states that today she noted some blood streaks in her emesis. Patient states she has had some black stools recently. Patient states that her urine became darker. Patient is concerned that this could be blood. Patient is currently on Plavix. Patient saw her primary care physician today who referred to the emergency department for possible gastrointestinal bleeding. [facility] Medical History Acute kidney failure Alcohol use Ambulates with cane Anemia Anxiety and depression Arthritis Atherosclerosis of coronary artery 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 Atherosclerotic heart disease of [place] coronary artery without angina pectoris Back pain Blackout Cardiology follow-up encounter Chest pain Concussion COVID CPAP (continuous positive airway pressure) dependence Diabetes Difficulty chewing Difficulty swallowing Epigastric pain Essential hypertension Former smoker Gastric reflux GERD (gastroesophageal reflux disease) Headache Hiatal hernia High cholesterol History of diverticulitis History of echocardiogram History of heart attack History of irregular heartbeat History of stress test Hyperhomocystinemia Hyperlipidemia Imbalance Injury of back Injury of head and neck Iron deficiency anemia Lymphedema Migraine headache Narcolepsy Obesity Obstructive sleep apnea Peripheral neuropathy Post-menopausal Proliferative diabetic retinopathy Restless legs Restless legs syndrome (RLS) Rheumatoid arthritis Shortness of breath on exertion Sleep apnea Type 2 diabetes mellitus Wears glasses Home Medications ascorbate calcium (vitamin C) 500 mg tablet 500 mg PO DAILY 10/26/21 [History Last Taken 05/17/23] red yeast rice 600 mg capsule 600 mg PO DAILY 10/26/21 [History Last Taken 05/17/23] pregabalin 150 mg capsule 150 mg PO BID 02/27/22 [History Last Taken 05/17/23] cholecalciferol (vitamin D3) 25 mcg (1,000 unit) capsule 25 mcg PO DAILY 06/04/22 [History Last Taken 05/17/23] ranolazine 1,000 mg tablet,extended release,12 hr 1,000 mg PO BID #180 tabs 06/25/22 [Rx Last Taken 05/17/23] nitroglycerin 0.4 mg sublingual tablet 0.4 mg sublingual Q5-15M PRN chest pain #25 tabs 10/15/22 [Rx Last Taken Unknown] metformin 500 mg tablet 1,000 mg PO BID 01/21/23 [History Last Taken 05/17/23] ezetimibe 10 mg tablet 10 mg PO DAILY 03/11/23 [History Last Taken 05/17/23] albuterol sulfate 90 mcg/actuation aerosol inhaler 1 puff inhalation Q6H PRN shortness of breath or wheezing 04/27/23 [History Last Taken Unknown] semaglutide 1 mg/dose (4 mg/3 mL) subcutaneous pen injector (Ozempic) 1 mg subcut QWEEK 04/27/23 [History Last Taken 05/16/23] aspirin 81 mg tablet,delayed release (Adult Aspirin Regimen) 81 mg PO DAILY 05/18/23 [History Last Taken 05/17/23] citalopram 40 mg tablet 20 mg PO DAILY 05/18/23 [History Last Taken 05/17/23] fenofibrate nanocrystallized 145 mg tablet 145 mg PO DAILY 05/18/23 [History Last Taken 05/17/23] losartan 50 mg tablet 50 mg PO BID #60 tabs 05/18/23 [Rx Last Taken Unknown] metoprolol succinate 25 mg tablet,extended release 24 hr 25 mg PO DAILY 05/18/23 [History Last Taken 05/17/23] pantoprazole 40 mg tablet,delayed release 40 mg PO DAILY 05/18/23 [History Last Taken 05/17/23] Handicap Placard #1 ea 06/05/23 [Rx Last Taken Unknown] isosorbide mononitrate 30 mg tablet,extended release 24 hr 30 mg PO DAILY #30 tabs 06/05/23 [Rx Last Taken Unknown] isosorbide mononitrate 60 mg tablet,extended release 24 hr 60 mg PO DAILY #30 tabs 06/05/23 [Rx Last Taken Unknown] clopidogrel 75 mg tablet 75 mg PO .COMPLEX #90 tabs 06/14/23 [Rx Last Taken Unknown] Allergy/AdvReac Type Severity Reaction Status Date / Time aspirin Allergy Rash Verified 06/25/23 17:06 banana Allergy Hives Verified 06/25/23 17:06 canagliflozin [From Invokana] Allergy Anaphylaxis Verified 06/25/23 17:06 kiwi Allergy Hives Verified 06/25/23 17:06 niacin Allergy Rash Verified 06/25/23 17:06 Penicillins [PCN] Allergy Hives Verified 06/25/23 17:06 Sulfa (Sulfonamide Allergy Hives Verified 06/25/23 17:06 Antibiotics) ticagrelor AdvReac Severe Severe Verified 06/25/23 17:06 nausea and vomiting erythromycin base AdvReac Other Verified 06/25/23 17:06 [From Staticin] ethyl alcohol [From Staticin] AdvReac Other Verified 06/25/23 17:06 gemfibrozil [From Lopid] AdvReac Other Verified 06/25/23 17:06 ibuprofen AdvReac Upset Verified 06/25/23 17:06 Stomach levofloxacin [From Levaquin] AdvReac Upset Verified 06/25/23 17:06 Stomach lisinopril AdvReac cough Verified 06/25/23 17:06 propoxyphene AdvReac Upset Verified 06/25/23 17:06 [From Darvocet-N] Stomach spironolactone AdvReac hyperkalemi Verified 06/25/23 17:06 a [id number]-LyG Reductase AdvReac unknown Verified 06/25/23 17:06 Inhibitor [Wxhsasp-Jrz-Ctu Reductase Inhibitor] tramadol AdvReac Other Verified 06/25/23 17:06 Family History Mother Heart disease Father Heart disease Diabetes Surgical History H/O coronary artery bypass surgery (10/2001) History of cataract surgery History of cholecystectomy History of colonoscopy with polypectomy History of coronary artery stent placement (04/30/23) History of hysterectomy History of left heart catheterization History of tonsillectomy Social History household members: spouse Smoking Status: Former smoker how long ago did patient quit smokin alcohol intake: current alcohol intake frequency: holidays/special occasions only Alcohol type: beer substance use type: does not use what type of physical activity do you participate in: walking frequency: 5-6 times per week ROS ROS ED Constitutional Constitutional ED: Denies chills or fever(s) Eyes Eyes: Denies blurry vision or change in vision ENT ENT ED: Reports rhinorrhea; Denies sore throat Cardiovascular Cardiovascular: Denies chest pain or palpitations Respiratory/Chest Respiratory/Chest: Denies cough or dyspnea Gastrointestinal Gastrointestinal: Reports melena; Denies nausea or vomiting Genitourinary Genitourinary ED: Denies dysuria or hematuria Musculoskeletal Musculoskeletal: Reports back pain and neck pain Integumentary Denies abscess or rash Neurologic Neurologic: Reports headache(s); Denies weakness Allergic/Immunologic Allergic/Immunologic ED: Denies mouth swelling or urticaria EXAM Physical Exam Const Vital Signs: 06/25/23 17:04 06/25/23 21:33 06/25/23 23:31 Temperature 98.1 F Temperature Source Temporal Pulse Rate 56 L 60 61 Respiratory Rate 16 14 Blood Pressure 216/76 H 164/87 H 157/78 H Blood Pressure Mean 122 112 104 Pulse Ox 97 97 Oxygen Delivery Method Room Air 06/25/23 23:46 06/25/23 23:47 Temperature 97.4 F L Temperature Source Temporal Pulse Rate 59 L 59 L Respiratory Rate 14 14 Blood Pressure 154/73 H 154/78 H Blood Pressure Mean 100 103 Pulse Ox 96 96 Oxygen Delivery Method Room Air Positive well nourished and well developed General Appearance ED: well developed and NAD HEENT Reports moist mucous membranes Neck supple and no JVD Resp normal respiratory effort and clear to auscultation bilaterally Cardio regular rate and regular rhythm GI non-tender, non-distended and no masses Auscultation: normoactive bowel sounds Palpation: soft Extremity full ROM General Extremety ED: Negative for edema or tenderness General Extremity: Negative for edema Neuro CN's II-XII intact bilaterally, moves all extremities and no sensory deficits noted Sensorium / Orientation: alert Motor Exam: strength 5/5 throughout Psych mental status grossly normal MDM MDM MDM Narrative Medical decision making narrative: Differential diagnosis includes coagulopathy, anemia, gastrointestinal bleeding, bowel obstruction, perforation, pancreatitis, peptic ulcer disease, duodenal ulcer, and urinary tract infection. CBC will be obtained to assess for leukocytosis and anemia. Comprehensive metabolic profile will be obtained to assess for hepatic function, renal function, and electrolyte abnormality. Lipase will be obtained to assess for pancreatitis. PT was INR and PTT will be obtained to assess for coagulopathy. Urinalysis will be obtained to assess for urinary tract infection and hematuria. CT scan of the abdomen pelvis will be obtained to assess for bowel obstruction and perforation. Stool for occult blood will be obtained to assess for gastrointestinal bleeding. Lab Data Attestation: I reviewed the patient's lab results. Lab results narrative: CBC was reviewed. There is a mild anemia with a hemoglobin of 11.0 hematocrit 34.4. This was decreased from previous result. Platelets were normal. PT was INR and PTT were reviewed and were within normal limits. Comprehensive metabolic profile was reviewed. BUN was 32 and creatinine was 2.02. These are increased from previous results. The remainder is within normal limits. Lipase was reviewed and was normal at 43. Urinalysis was reviewed. There are positive nitrites with 5-10 white blood cells. Leukocyte esterase was 100. There is 1+ bacteria. There were no red blood cells seen noted. There is negative occult blood. Labs: Laboratory Results - last 24 hr 06/25/23 06/25/23 19:05 20:00 WBC 7.3 RBC 3.84 L Hgb 11.0 L Hct 34.4 L MCV 89.6 MCH 28.6 MCHC 32.0 RDW Std Deviation 45.5 H RDW Coeff of Nancy 14.1 Plt Count 246 MPV 11.4 Immature Gran % (Auto) 0.400 Neut % (Auto) 49.4 Lymph % (Auto) 37.4 [place] % (Auto) 10.2 H Eos % (Auto) 2.2 Baso % (Auto) 0.4 Absolute Neuts (auto) 3.6 Absolute Lymphs (auto) 2.74 Nucleated RBC % 0 PT 14.0 INR 1.1 APTT 29.9 Sodium 137 Potassium 4.2 Chloride 104 Carbon Dioxide 31.0 Anion Gap 2 L BUN 32 H Creatinine 2.02 H Estim Creat Clear Calc 29.13 Est GFR (MDRD) Af Amer 31 L Est GFR (MDRD) Non-Af 26 L BUN/Creatinine Ratio 15.8 Glucose 95 Calcium 9.1 Total Bilirubin 0.40 AST 14 L ALT 19 Alkaline Phosphatase 32 L Total Protein 7.0 Albumin 3.8 Globulin 3.2 Albumin/Globulin Ratio 1.2 Lipase 43 Urine Color Yellow Urine Clarity Sl. Cloudy Urine pH 5.0 Ur Specific [place] 1.025 Urine Protein 30 H Urine Glucose (UA) Normal Urine Ketones 5 H Urine Occult Blood Negative Urine Nitrite Positive H Urine Bilirubin 1 H Urine Urobilinogen 1 H Ur Leukocyte Esterase 100 H Urine RBC 0 SEEN Urine WBC 5-10 SEEN Ur Squamous Epith Cells 0-5 SEEN Calcium Oxalate Crystal 1+ Urine Bacteria 1+ Urine Mucus 0 SEEN Radiography Diagnostic Testing: Clinical Impression(s) from Imaging Studies Abdomen CT 06/25/23 19:42 IMPRESSION: Scattered diverticulosis with no signs of diverticulitis. Moderate to abundant fecal debris within the colon, with no signs of bowel obstruction. No acute appendicitis. No free air. Status post cholecystectomy, otherwise unremarkable abdominal viscera. Electronically Signed: Shana Kim MD at 21:42 EST , CT scan of the abdomen pelvis was obtained. There is diverticulosis but no signs of diverticulitis. There is moderate amount of fecal debris within the colon. There is no evidence of bowel obstruction. There is no evidence of appendicitis. There is no free air or free fluid. This was interpreted by the radiologist and was also independently reviewed by myself. Additional Tests and Interventions Additional Tests or Interventions: Urine culture was ordered. Treatment and Re-Evaluation :: Patient was given IV fluids initially. Patient was given a dose of Tylenol for headache. Patient was advised of her findings. Patient was advised that there is no gastrointestinal bleeding noted. There is no hematuria noted. Patient was advised that there is a urinary tract infection. Patient was started on Cipro for this. Patient was given a repeat bolus of IV fluids. Patient started on maintenance fluids. Case was discussed with the hospitalist. She will admit the patient to her service. Patient understood and was agreeable with the plan. All questions were answered. Discharge Plan Dx/Rx/DC Orders Clinical Impression: Acute kidney injury, Urinary tract infection, Nausea and vomiting Disposition Disposition: Acute Care [facility]
--- NOTE | 2023-06-25 19:42 | CT_ITS ---
STUDY: CT ABDOMEN AND PELVIS WITHOUT CONTRAST REASON FOR EXAM: Female, 68 years old. Abdominal pain -- only only, low gfr RADIATION DOSAGE (If Supplied By Facility): CTDIvol = ( 18.52 ) mGy, DLP = ( 907.06 ) mGycm TECHNIQUE: Transaxial images were obtained from the dome of the diaphragm to the symphysis pubis without oral contrast, and without intravenous contrast. Sagittal and coronal images were reconstructed. Individualized dose optimization techniques were used for this CT. COMPARISON: None. FINDINGS: The visualized lung bases are unremarkable. Normal cardiac size with coronary artery calcifications. Normal liver. There are surgical clips in the gallbladder fossa consistent with a prior cholecystectomy. Normal spleen. Normal pancreas. Normal bilateral adrenal glands. Normal right kidney. Normal left kidney. Normal visualized stomach. Normal small intestine. Moderate to abundant fecal debris within the colon. Scattered diverticulosis with no signs of diverticulitis. The appendix is visualized and appears normal. There is diffuse atherosclerotic calcification of the abdominal aorta, without a demonstrated aneurysm. Normal inferior vena cava. Normal retroperitoneum. Normal urinary bladder. There is absence of the uterus consistent with a prior hysterectomy. Minimal right-sided fat-containing inguinal hernia. Osteopenia with spondylosis of the spine. Grade 1 anterolisthesis of L5 on S1. CT/Abdomen/Pel W ORAL Cont Only IMPRESSION: Scattered diverticulosis with no signs of diverticulitis. Moderate to abundant fecal debris within the colon, with no signs of bowel obstruction. No acute appendicitis. No free air. Status post cholecystectomy, otherwise unremarkable abdominal viscera. Electronically Signed: Shana Kim MD at 21:42 EST ,
[2023-06-25] MEDS: 0.9% Normal Saline (1000mL) 1,000 ML 1000 ML IV ×2 (19:57→22:07)
[2023-06-25 20:11] LABS: Mucous, Urine 0 SEEN /hpf (<or=2+); Red Blood Cells-Urine 0 SEEN /hpf (0-5)
[2023-06-25 20:13] LABS: Color, Urine Yellow (Yellow); Glucose, Dipstick Normal (Normal); Ketone-Dipstick 5 mg/dl (Negative); Leukocyte Esterase-Dipstick 100 /ul (Negative); Nitrite-Dipstick Positive (Negative); Occult Blood-Urine Negative /ul (Negative); Protein-Dipstick 30 mg/dl (Negative); Specific Gravity, Urine 1.025 (1.002-1.030); Urine Clarity Sl. Cloudy (Clear); Urine Urobilinogen 1 mg/dl (Normal)
[2023-06-25 20:14] LABS: Urine Bilirubin Dipstick 1 mg/dL (Negative)
[2023-06-25 20:14] LABS: Absolute Lymphocyte Count 2.74 X10^3/uL (0.83-4.51); Absolute Neutrophil Count 3.6 X10^3/uL (2.0-7.7); Basophil# 0.03 X10^3/uL; Basophil% 0.4 % (0-1); Eosinophil# 0.16 X10^3/uL; Eosinophils% 2.2 % (0-5); Hematocrit 34.4 % (37-47); Lymphocyte # 2.74 X10^3/ul (0.83-4.51); Lymphocyte % 37.4 % (19-41); Mean Corpuscular Hgb 28.6 pg (27.0-32.0); Mean Corpuscular Volume 89.6 fL (81-99); Mean Platelet Vol. 11.4 fl (6.2-12.0); Monocyte# 0.75 X10^3/uL; Monocyte% 10.2 % (0-10); NRBC Flagged by Analyzer 0 % (0-5); Neutrophil # 3.62 X10^3/uL (2.7-7.7); Neutrophil % 49.4 % (47-70); Platelet Count 246 K/mm3 (150-450); RBC Distribution Width CV 14.1 % (11.6-14.6); RBC Distribution Width SD 45.5 fl (35.1-43.9); Red Blood Count 3.84 M/mm3 (4.2-5.4); White Blood Count 7.3 K/mm3 (4.4-11.0)
[2023-06-25 20:24] LABS: Bacteria 1+ /hpf (None Seen); White Blood Cells 5-10 SEEN /hpf (0-5)
[2023-06-25 20:25] LABS: Calcium Oxalate Crystals Ur 1+ /hpf (<or=2+); Squamous Epithelial Cells - UA 0-5 SEEN /hpf (5-10)
[2023-06-25 20:26] LABS: International Normalized Ratio 1.1; Partial Thromboplast Time 29.9 Seconds (24.1-36.2)
[2023-06-25 20:32] LABS: ALB/GLOB Ratio 1.2 RATIO (0.9-2.4); AST(SGOT) 14 U/L (15-37); Alanine Aminotransfer ALT/SGPT 19 U/L (13-56); Albumin, Serum 3.8 g/dL (3.2-5.0); Alkaline Phosphatase 32 U/L (45-117); Anion Gap 2 (5-15); BUN 32 mg/dL (7-18); BUN/Creat Ratio 15.8 RATIO (10-20); Calcium,Total 9.1 mg/dL (8.5-10.1); Chloride 104 mmol/L (98-107); Creatinine, Serum 2.02 mg/dL (0.55-1.02); EST Glomerular Filtration Rate 26 mL/min (>60); Est Glom Filt Rate - Afr Amer 31 mL/min (>60); Estimated Creatinine Clearance 29.13 ml/min; Globulin 3.2 g/dL (2.2-4.2); Glucose 95 mg/dL (74-106); Lipase 43 U/L (13-75); Potassium 4.2 mmol/L (3.5-5.1); Sodium Level 137 mmol/L (136-145)
[2023-06-25 21:33] VITALS: BP 164/87; PULSE 60
[2023-06-25] MEDS: Acetaminophen 500 MG Tablet 1000 MG PO (22:06)
[2023-06-25] MEDS: Ciprofloxacin 400 MG/200 ML BAG 200 MG IV (23:26)
[2023-06-25 23:31] VITALS: BP 157/78; PULSE 61; RESP 14; O2SAT 97
[2023-06-25] MEDS: 0.9% Normal Saline (1000mL) 1,000 ML 250 ML IV (23:33)
[2023-06-25 23:46] VITALS: BP 154/73; PULSE 59; RESP 14; O2SAT 96
[2023-06-25 23:47] VITALS: BP 154/78; PULSE 59; RESP 14; TEMP 36.3; O2SAT 96
[2023-06-26] VITALS (8 sets, daily range): BP systolic 112–161; BP diastolic 56–78; PULSE 53–81; RESP 14–18; TEMP 36.4–36.7; O2SAT 92–98; BMI 30.8
--- NOTE | 2023-06-26 00:33 | HP.PCM_ITS ---
HPI - General General Date of Admission: 06/26/23 Date of Service: 06/26/23 Chief Complaint: nausea and vomiting HPI Narrative ELSA PUGH, is a 68 F with a PMH as outlined who was admitted via the ED on 06/26/2023 with a complaint of nausea, vomiting and melena. She had had numerous episodes of nausea and vomiting over the week prior to admission, and also said she had had some dark stools as well. She also noticed her urine was becoming darker. Her symptoms werent improving so she went to see her PCP and was directed to the ED. Vitals in the ED at time of review were BP of 154/78. ND of 59, RR of 14 and temp of 97.4F. She was saturating at 96% on room air. CBC showed wbc of 7.3, hb of 11, platelets of 246. INR was 1.1. Chemistry showed sodium of 137, potassium of 4.2 nad bicarb of 31. Cr was 2.02, with a baseline Cr of 0.93. Urinalysis showed 1+ bacteria and positive nitrites. Stool for occult blood was negative. CT abdomen and pelvis showed scattered diverticulosis with no signs of diverticulitis and moderate to abundant fecal debris within the colon and no evidence of bowel obstruction or fee air; s/p cholecystectomy. She is being admitted to be managed for CA due to nausea and vomiting. [facility] Medical History Acute kidney failure Alcohol use Ambulates with cane Anemia Anxiety and depression Arthritis Atherosclerosis of coronary artery 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 Atherosclerotic heart disease of [place] coronary artery without angina pectoris Back pain Blackout Cardiology follow-up encounter Chest pain Concussion COVID CPAP (continuous positive airway pressure) dependence Diabetes Difficulty chewing Difficulty swallowing Epigastric pain Essential hypertension Former smoker Gastric reflux GERD (gastroesophageal reflux disease) Headache Hiatal hernia High cholesterol History of diverticulitis History of echocardiogram History of heart attack History of irregular heartbeat History of stress test Hyperhomocystinemia Hyperlipidemia Imbalance Injury of back Injury of head and neck Iron deficiency anemia Lymphedema Migraine headache Narcolepsy Obesity Obstructive sleep apnea Peripheral neuropathy Post-menopausal Proliferative diabetic retinopathy Restless legs Restless legs syndrome (RLS) Rheumatoid arthritis Shortness of breath on exertion Sleep apnea Type 2 diabetes mellitus Wears glasses Home Medications ascorbate calcium (vitamin C) 500 mg tablet 500 mg PO DAILY 10/26/21 [History Last Taken 05/17/23] red yeast rice 600 mg capsule 600 mg PO DAILY 10/26/21 [History Last Taken 05/17/23] pregabalin 150 mg capsule 150 mg PO BID 02/27/22 [History Last Taken 05/17/23] cholecalciferol (vitamin D3) 25 mcg (1,000 unit) capsule 25 mcg PO DAILY 06/04/22 [History Last Taken 05/17/23] ranolazine 1,000 mg tablet,extended release,12 hr 1,000 mg PO BID #180 tabs 06/25/22 [Rx Last Taken 05/17/23] nitroglycerin 0.4 mg sublingual tablet 0.4 mg sublingual Q5-15M PRN chest pain #25 tabs 10/15/22 [Rx Last Taken Unknown] metformin 500 mg tablet 1,000 mg PO BID 01/21/23 [History Last Taken 05/17/23] ezetimibe 10 mg tablet 10 mg PO DAILY 03/11/23 [History Last Taken 05/17/23] albuterol sulfate 90 mcg/actuation aerosol inhaler 1 puff inhalation Q6H PRN shortness of breath or wheezing 04/27/23 [History Last Taken Unknown] semaglutide 1 mg/dose (4 mg/3 mL) subcutaneous pen injector (Ozempic) 1 mg subcut QWEEK 04/27/23 [History Last Taken 05/16/23] aspirin 81 mg tablet,delayed release (Adult Aspirin Regimen) 81 mg PO DAILY 05/18/23 [History Last Taken 05/17/23] citalopram 40 mg tablet 20 mg PO DAILY 05/18/23 [History Last Taken 05/17/23] fenofibrate nanocrystallized 145 mg tablet 145 mg PO DAILY 05/18/23 [History Last Taken 05/17/23] losartan 50 mg tablet 50 mg PO BID #60 tabs 05/18/23 [Rx Last Taken Unknown] metoprolol succinate 25 mg tablet,extended release 24 hr 25 mg PO DAILY 05/18/23 [History Last Taken 05/17/23] pantoprazole 40 mg tablet,delayed release 40 mg PO DAILY 05/18/23 [History Last Taken 05/17/23] Handicap Placard #1 ea 06/05/23 [Rx Last Taken Unknown] isosorbide mononitrate 30 mg tablet,extended release 24 hr 30 mg PO DAILY #30 tabs 06/05/23 [Rx Last Taken Unknown] isosorbide mononitrate 60 mg tablet,extended release 24 hr 60 mg PO DAILY #30 tabs 06/05/23 [Rx Last Taken Unknown] clopidogrel 75 mg tablet 75 mg PO .COMPLEX #90 tabs 06/14/23 [Rx Last Taken Unknown] Allergy/AdvReac Type Severity Reaction Status Date / Time aspirin Allergy Rash Verified 06/25/23 17:06 banana Allergy Hives Verified 06/25/23 17:06 canagliflozin [From Invokana] Allergy Anaphylaxis Verified 06/25/23 17:06 kiwi Allergy Hives Verified 06/25/23 17:06 niacin Allergy Rash Verified 06/25/23 17:06 Penicillins [PCN] Allergy Hives Verified 06/25/23 17:06 Sulfa (Sulfonamide Allergy Hives Verified 06/25/23 17:06 Antibiotics) ticagrelor AdvReac Severe Severe Verified 06/25/23 17:06 nausea and vomiting erythromycin base AdvReac Other Verified 06/25/23 17:06 [From Staticin] ethyl alcohol [From Staticin] AdvReac Other Verified 06/25/23 17:06 gemfibrozil [From Lopid] AdvReac Other Verified 06/25/23 17:06 ibuprofen AdvReac Upset Verified 06/25/23 17:06 Stomach levofloxacin [From Levaquin] AdvReac Upset Verified 06/25/23 17:06 Stomach lisinopril AdvReac cough Verified 06/25/23 17:06 propoxyphene AdvReac Upset Verified 06/25/23 17:06 [From Darvocet-N] Stomach spironolactone AdvReac hyperkalemi Verified 06/25/23 17:06 a Whrbwae-[id number]-UkL Reductase AdvReac unknown Verified 06/25/23 17:06 Inhibitor [Fttspqk-Qvw-Ehq Reductase Inhibitor] tramadol AdvReac Other Verified 06/25/23 17:06 Family History Mother Heart disease Father Heart disease Diabetes Surgical History H/O coronary artery bypass surgery (10/2001) History of cataract surgery History of cholecystectomy History of colonoscopy with polypectomy History of coronary artery stent placement (04/30/23) History of hysterectomy History of left heart catheterization History of tonsillectomy Social History household members: spouse Smoking Status: Former smoker how long ago did patient quit smokin alcohol intake: current alcohol intake frequency: holidays/special occasions only Alcohol type: beer substance use type: does not use what type of physical activity do you participate in: walking frequency: 5-6 times per week ROS Constitutional Constitutional: Reports fatigue and malaise; Denies anorexia, chills, fever(s) or weakness Eyes Eyes: Denies change in vision ENT HEENT: Denies dysphagia or headache(s) Cardiovascular Cardiovascular: Denies chest pain, edema, orthopnea, palpitations or paroxysmal nocturnal dyspnea Respiratory/Chest Respiratory/Chest: Denies cough, shortness of breath at rest or shortness of breath with exertion Gastrointestinal Gastrointestinal: Reports nausea and vomiting; Denies abdominal pain, diarrhea or dyspepsia Genitourinary Genitourinary: Denies dysuria or urinary frequency Musculoskeletal Musculoskeletal: Denies back pain, joint pain, joint stiffness or joint swelling Neurologic Neurologic: Denies dizziness, focal weakness, headache(s) or weakness Psychiatric Psychiatric: Denies anxiety or depression Endocrine Endocrinology: Denies change in body appearance Vital Signs Vital Signs Vital Signs: 06/25/23 17:04 06/25/23 21:33 06/25/23 23:31 Temperature 98.1 F Temperature Source Temporal Pulse Rate 56 L 60 61 Respiratory Rate 16 14 Blood Pressure 216/76 H 164/87 H 157/78 H Blood Pressure Mean 122 112 104 Pulse Ox 97 97 Oxygen Delivery Method Room Air 06/25/23 23:46 06/25/23 23:47 Temperature 97.4 F L Temperature Source Temporal Pulse Rate 59 L 59 L Respiratory Rate 14 14 Blood Pressure 154/73 H 154/78 H Blood Pressure Mean 100 103 Pulse Ox 96 96 Oxygen Delivery Method Room Air Weight Weight: 190 lb 12.8 oz Body Mass Index (BMI) 30.8 Physical Exam Const alert, oriented x3 and no apparent distress General Appearance: cooperative HEENT normocephalic and head/scalp atraumatic Mouth: dry mucous membranes Eyes PERRL and EOMs intact bilaterally Neck no lymphadenopathy and supple Lymph Lymphatic: no lymphadenopathy noted and no lymphedema noted Resp normal respiratory effort, normal air movement and clear to auscultation bilaterally Cardio regular rate, regular rhythm, S1 normal heart sound, S2 normal heart sound and no murmurs GI normal to inspection, nondistended, normoactive bowel sounds, soft to palpation and non-tender Palpation: no hepatosplenomegaly Extremity normal capillary refill, no clubbing, cyanosis or edema and no calf tenderness General Extremity: no tenderness to palpation of joints or extremities Skin General Skin Exam: no breakdown Neuro CN's II-XII intact bilaterally, no focal motor deficits and no sensory deficits noted Motor Exam: strength 5/5 throughout and general weakness Psych thought process normal, cooperative and affect normal Appearance: appropriate Results Lab / Micro Data 06/25/23 20:00 06/25/23 20:00 Labs: Laboratory Results - last 24 hr 06/25/23 19:05: Urine Color Yellow, Urine Clarity Sl. Cloudy, Urine pH 5.0, Ur Specific [place] 1.025, Urine Protein 30 H, Urine Glucose (UA) Normal, Urine Ketones 5 H, Urine Occult Blood Negative, Urine Nitrite Positive H, Urine Bilirubin 1 H, Urine Urobilinogen 1 H, Ur Leukocyte Esterase 100 H, Urine RBC 0 SEEN, Urine WBC 5-10 SEEN, Ur Squamous Epith Cells 0-5 SEEN, Calcium Oxalate Crystal 1+, Urine Bacteria 1+, Urine Mucus 0 SEEN 06/25/23 20:00: WBC 7.3, RBC 3.84 L, Hgb 11.0 L, Hct 34.4 L, MCV 89.6, MCH 28.6, MCHC 32.0, RDW Std Deviation 45.5 H, RDW Coeff of Nancy 14.1, Plt Count 246, MPV 11.4, Immature Gran % (Auto) 0.400, Neut % (Auto) 49.4, Lymph % (Auto) 37.4, [place] % (Auto) 10.2 H, Eos % (Auto) 2.2, Baso % (Auto) 0.4, Absolute Neuts (auto) 3.6, Absolute Lymphs (auto) 2.74, Nucleated RBC % 0, PT 14.0, INR 1.1, APTT 29.9, Sodium 137, Potassium 4.2, Chloride 104, Carbon Dioxide 31.0, Anion Gap 2 L, BUN 32 H, Creatinine 2.02 H, Estim Creat Clear Calc 29.13, Est GFR (MDRD) Af Amer 31 L, Est GFR (MDRD) Non-Af 26 L, BUN/Creatinine Ratio 15.8, Glucose 95, Calcium 9.1, Total Bilirubin 0.40, AST 14 L, ALT 19, Alkaline Phosphatase 32 L, Total Protein 7.0, Albumin 3.8, Globulin 3.2, Albumin/Globulin Ratio 1.2, Lipase 43 Micro: Microbiology 06/25/23 23:20 Stool Stool Occult Blood (LARISSA) - Final Imagaing Radiology Impression Abdomen CT 06/25/23 19:42 IMPRESSION: Scattered diverticulosis with no signs of diverticulitis. Moderate to abundant fecal debris within the colon, with no signs of bowel obstruction. No acute appendicitis. No free air. Status post cholecystectomy, otherwise unremarkable abdominal viscera. Electronically Signed: Shana Kim MD at 21:42 EST , Assessment & Plan Assessment/Plan (1) Nausea and vomiting: (2) Urinary tract infection: PLAN: Plan #Nausea and vomiting likely due to UTI * admit to med surg * she also complained of dark stools, but stool for occult blood was negative * Hb is also stable at 11.5 * urinalysis showed evidence of UTI * hydrate gently with IVF * IV zofran prn * IV ceftriaxone * get urine cultures * she is also on ozempic, so this nausea and vomiting could be a side effect of her ozempic also #CA * Cr is 2. baseline Cr is 0.98 * likely due to nausea and vomiting with resultant dehydration * hydrate with IVF and trend. If Cr doesnt improve, then to do further workup as needed with FeNa/FeUrea and renal USG. * hold nephrotoxic meds * #Type 2 diabetes mellitus * hold metformin and Ozempic * ISS. Accuchecks ACHS * #Hypertension: hold losartan due to CA #Hyperlipidemia: on ezetimibe #Depression; on citalopram #CAD s/p CABG; on aspirin, plavix and ezetimibe as well as imdur DVT prophylaxis: SCDs Code status: * Patient counseled extensively about different types of CODE STATUS including full code, DNR CCA and DNR CCA. Patient elects to be (). Total [id number] time () minutes. Total time spent on evaluation and management of patient, reviewing chart and specialist notes, discussing plan with patient and his , discussion with nursing and ancillary staff as well as documentation: 78 mins Charges/Coding Visit Charges Inpatient E&M: 11810 Init Hosp L3
[2023-06-26] MEDS: 0.9% Normal Saline (1000mL) 1,000 ML 150 ML IV ×2 (02:40→13:54)
[2023-06-26 06:07] LABS: Absolute Lymphocyte Count 1.81 X10^3/uL (0.83-4.51); Absolute Neutrophil Count 2.6 X10^3/uL (2.0-7.7); Basophil# 0.01 X10^3/uL; Basophil% 0.2 % (0-1); Eosinophil# 0.15 X10^3/uL; Eosinophils% 2.9 % (0-5); Hematocrit 29.7 % (37-47); Hemoglobin 9.7 g/dL (12.0-15.0); Lymphocyte # 1.81 X10^3/ul (0.83-4.51); Lymphocyte % 35.1 % (19-41); Mean Corp Hgb Conc 32.7 g/dL (32-36); Mean Corpuscular Hgb 29.3 pg (27.0-32.0); Mean Corpuscular Volume 89.7 fL (81-99); Mean Platelet Vol. 11.2 fl (6.2-12.0); Monocyte# 0.55 X10^3/uL; Monocyte% 10.7 % (0-10); NRBC Flagged by Analyzer 0 % (0-5); Neutrophil # 2.61 X10^3/uL (2.7-7.7); Neutrophil % 50.5 % (47-70); Platelet Count 213 K/mm3 (150-450); RBC Distribution Width SD 46.2 fl (35.1-43.9); Red Blood Count 3.31 M/mm3 (4.2-5.4); White Blood Count 5.2 K/mm3 (4.4-11.0)
[2023-06-26 06:37] LABS: Anion Gap 7 (5-15); BUN 26 mg/dL (7-18); BUN/Creat Ratio 16.9 RATIO (10-20); Calcium,Total 7.3 mg/dL (8.5-10.1); Chloride 110 mmol/L (98-107); Creatinine, Serum 1.54 mg/dL (0.55-1.02); EST Glomerular Filtration Rate 36 mL/min (>60); Est Glom Filt Rate - Afr Amer 43 mL/min (>60); Estimated Creatinine Clearance 38.21 ml/min; Glucose 131 mg/dL (74-106); Potassium 4.1 mmol/L (3.5-5.1); Sodium Level 141 mmol/L (136-145)
[2023-06-26] MEDS: Acetaminophen 325 MG Tablet 650 MG PO (08:32)
[2023-06-26] MEDS: Aspirin E.C. 81 MG Tablet PO (08:32)
[2023-06-26 08:48] LABS: Bedside Glucose 120 mg/dL (74-106)
[2023-06-26] MEDS: Ezetimibe 10 MG Tablet PO (09:47)
[2023-06-26] MEDS: Cholecalciferol (VIT D3) 25 MCG TABLET (1,000 UNITS) PO (09:47)
[2023-06-26] MEDS: Ascorbic Acid 500 MG Tablet PO (09:48)
[2023-06-26] MEDS: Clopidogrel Bisulfate 75 MG Tablet PO (09:48)
[2023-06-26] MEDS: Metoprolol(XL)Succ 25 MG Tablet PO (09:48)
[2023-06-26] MEDS: Pantoprazole Sodium 40 MG Tablet PO (09:48)
[2023-06-26] MEDS: Citalopram 20 MG Tablet PO (09:48)
[2023-06-26] MEDS: Fenofibrate 145 MG Tablet PO (09:48)
[2023-06-26] MEDS: Isosorbide Mononitrate 30 MG Tablet 90 MG PO (09:52)
[2023-06-26] MEDS: Ceftriaxone 1 GM/50 ML BAG IV (09:52)
[2023-06-26] MEDS: Ranolazine 500 MG Tablet 1000 MG PO ×2 (09:53→21:32)
[2023-06-26] MEDS: Enoxaparin 30 MG/0.3 ML Syringe SC (09:53)
[2023-06-26 12:49] LABS: Bedside Glucose 130 mg/dL (74-106)
--- NOTE | 2023-06-26 15:50 | CASEMGMT ---
GLORIA GARCIA Assessment: Face to Face with pt for initial transition planning/care coordination assessment. RN JOSE introduced self and role at [facility], pt voices understanding and consents to assessment. Pt is A&O x4 and answers all questions appropriately at this time. Pt lying in bed in no distress. Care providers, pharmacy, and demographics verified/updated. Admitting Dx:UTI, CA PCP:Rommel Specialists:Devon, cardio; Sandy, neuro Preferred Pharmacy:[facility] Insurance:[facility] Prescription Benefit: yes LNOK:Penelope Silveira, dtr; Marco Martines, sig other Living Arrangements: Pt lives with sig other, granddtr and her boyfriend and their 2 children in a two story home with 1 step to enter. Pt reports she is I in ADL's and denies concerns at home. Transportation: Pt drives self and denies concerns with transportation. DME:FWW, cane, CPAP, BGM with sufficient supply of strips and lancets HHC/SNF:Pt denies hx of Pt states no concerns with going home at time of dc. Pt states no further concerns/needs. CM to follow. Advised pt to ask CM if any further question/concerns/needs arise, voices understanding. Pt Goal:Home Plan:Home
--- NOTE | 2023-06-26 16:59 | PN.HOSP_ITS ---
Subjective Subjective Patient seen at bedside this morning in the ED. Patient was sitting up comfortably at the edge of the bed, conversing normally, no acute distress. She was just about to eat breakfast when I arrived. Patient appeared very comfortable and had good level of energy during the interview. Patient states that she feels significantly improved since coming to the ED after receiving IV fluids. Has not had any episodes of nausea with vomiting or dark stools since arriving to the ED. She denies any acute pain or discomfort. Denies any UTI symptoms. She has been up walking around the ED without any issues. Lives at home with her boyfriend, able to do all things around the house for self without issue. No other acute concerns this morning. Objective Data Objective Data Vital Signs: Vital Signs Temp Pulse Resp BP Pulse Ox O2 Del Method 98.0 F 53 L 16 115/61 96 Room Air 06/26/23 10:00 06/26/23 10:00 06/26/23 10:00 06/26/23 10:00 06/26/23 10:00 06/26/23 10:00 Oxygen Delivery Method Room Air Weight: 86.545 kg Body Mass Index (BMI) 30.8 Intake & Output: Intake and Output for Last 24 Hours 06/24/23 06/25/23 06/26/23 23:59 23:59 23:59 Intake Total 1999 2250 / 2250 Balance 1999 2250 / 2250 Lab / Micro Data 06/26/23 05:45 06/26/23 05:45 Labs: Laboratory Results - last 24 hr 06/25/23 19:05: Urine Color Yellow, Urine Clarity Sl. Cloudy, Urine pH 5.0, Ur Specific [place] 1.025, Urine Protein 30 H, Urine Glucose (UA) Normal, Urine Ketones 5 H, Urine Occult Blood Negative, Urine Nitrite Positive H, Urine Bilirubin 1 H, Urine Urobilinogen 1 H, Ur Leukocyte Esterase 100 H, Urine RBC 0 SEEN, Urine WBC 5-10 SEEN, Ur Squamous Epith Cells 0-5 SEEN, Calcium Oxalate Crystal 1+, Urine Bacteria 1+, Urine Mucus 0 SEEN 06/25/23 20:00: WBC 7.3, RBC 3.84 L, Hgb 11.0 L, Hct 34.4 L, MCV 89.6, MCH 28.6, MCHC 32.0, RDW Std Deviation 45.5 H, RDW Coeff of Nancy 14.1, Plt Count 246, MPV 11.4, Immature Gran % (Auto) 0.400, Neut % (Auto) 49.4, Lymph % (Auto) 37.4, Mon o % (Auto) 10.2 H, Eos % (Auto) 2.2, Baso % (Auto) 0.4, Absolute Neuts (auto) 3.6, Absolute Lymphs (auto) 2.74, Nucleated RBC % 0, PT 14.0, INR 1.1, APTT 29.9, Sodium 137, Potassium 4.2, Chloride 104, Carbon Dioxide 31.0, Anion Gap 2 L, BUN 32 H, Creatinine 2.02 H, Estim Creat Clear Calc 29.13, Est GFR (MDRD) Af Amer 31 L, Est GFR (MDRD) Non-Af 26 L, BUN/Creatinine Ratio 15.8, Glucose 95, Calcium 9.1, Total Bilirubin 0.40, AST 14 L, ALT 19, Alkaline Phosphatase 32 L, Total Protein 7.0, Albumin 3.8, Globulin 3.2, Albumin/Globulin Ratio 1.2, Lipase 43 06/26/23 05:45: WBC 5.2, RBC 3.31 L, Hgb 9.7 L, Hct 29.7 L, MCV 89.7, MCH 29.3, MCHC 32.7, RDW Std Deviation 46.2 H, RDW Coeff of [place] 14.0, Plt Count 213, MPV 11.2, Immature Gran % (Auto) 0.600, Neut % (Auto) 50.5, Lymph % (Auto) 35.1, [place] % (Auto) 10.7 H, Eos % (Auto) 2.9, Baso % (Auto) 0.2, Absolute Neuts (auto) 2.6, Absolute Lymphs (auto) 1.81, Nucleated RBC % 0, Sodium 141, Potassium 4.1, Chloride 110 H, Carbon Dioxide 24.0, Anion Gap 7, BUN 26 H, Creatinine 1.54 H, Estim Creat Clear Calc 38.21, Est GFR (MDRD) Af Amer 43 L, Est GFR (MDRD) Non-Af 36 L, BUN/Creatinine Ratio 16.9, Glucose 131 H, Calcium 7.3 L 01/10/24 08:30: POC Glucose 120 H 06/26/23 12:30: POC Glucose 130 H Micro: Microbiology 06/25/23 23:20 Stool Stool Occult Blood (LARISSA) - Final Radiography Diagnostic Testing: Radiology Impression Abdomen CT 06/25/23 19:42 IMPRESSION: Scattered diverticulosis with no signs of diverticulitis. Moderate to abundant fecal debris within the colon, with no signs of bowel obstruction. No acute appendicitis. No free air. Status post cholecystectomy, otherwise unremarkable abdominal viscera. Electronically Signed: Shana Kim MD at 21:42 EST , Physical Exam Const alert, oriented x3 and no apparent distress Constitutional Narrative: Pleasant elderly female, obese, sitting comfortably at edge of bed, conversing normally, no acute distress. General Appearance: cooperative and comfortable HEENT normocephalic, head/scalp atraumatic, hearing grossly normal bilaterally, nasal mucous membranes and turbinates normal and moist oral mucous membranes Eyes PERRL, EOMs intact bilaterally and conjunctivae normal Neck full ROM, no lymphadenopathy and supple Lymph Lymphatic: no lymphadenopathy noted Chest inspection of chest normal Resp normal respiratory effort, normal air movement, no use of accessory muscles and clear to auscultation bilaterally Cardio regular rate, regular rhythm, no murmurs and peripheral pulses 2+ throughout GI normal to inspection, nondistended, normoactive bowel sounds, soft to palpation, non-tender and non-distended Back/Spine normal ROM Extremity normal to inspection, full ROM and no pedal edema Skin no rashes or lesions noted Neuro no focal motor deficits and no sensory deficits noted Speech: speech normal Psych mental status grossly normal Assessment & Plan Assessment/Plan (1) Nausea and vomiting: (2) Acute kidney injury: PLAN: Plan Patient is a 68-year-old female who presented to [facility] ED on 06/25/2023 with nausea/vomiting and melena. 1. Nausea and vomiting, improving Unclear etiology. May be secondary to possible UTI as noted below. Also could be side effect of her Ozempic. Appeared dry on exam on admit, labs appeared hemoconcentrated. Improved with IV fluids in the ED. No further episodes of nausea or vomiting since admission. CT abdomen pelvis with oral contrast only showed moderate to abundant fecal debris within the colon, no signs of bowel obstruction, no other abnormalities. ? Patient much improved after IV fluid resuscitation. Treating possible UTI as noted below. Holding home Ozempic. Can consider starting agents for suspected constipation as needed. Continue to monitor. 2. Reported melena, concern for upper GI bleed Patient reported some dark stools at home over the week prior to admission. Hemoglobin 11.0 on admit, down trended to 9.7 with IV fluids. Baseline hemoglobin 11-12. Stool occult blood negative in ED. ? Given downtrending hemoglobin from previous baseline, have concern for possible slow upper GI bleed in setting of dual antiplatelet therapy. Gastroenterology consulted. N.p.o. at midnight. Hold home aspirin and Plavix for now. SCDs for DVT prophylaxis. IV PPI twice daily for now. Trend CBC. 3. CA Creatinine 2.02, BUN 32 on admit. Baseline creatinine 0.7-0.9. Presumed prerenal in setting of GI losses and poor p.o. intake. ? Creatinine 1.54 on 06/26 after IV fluid administration. Continue to monitor daily BMP and urine output. 4. Concern for UTI ? UA on admit showed 100 leukocyte esterase, positive nitrates, 1+ bacteria. Urine culture pending. Continue ceftriaxone for now. Chronic medical conditions: ? Type 2 diabetes mellitus: Hold home metformin and Ozempic. Sliding scale insulin while inpatient. ? Hypertension, hyperlipidemia: Holding home losartan, continue home Zetia. ? Depression: Continue home citalopram. ? CAD s/p CABG: Continue home Imdur and Zetia. Holding home aspirin Plavix as noted above. ? History of cholecystectomy DVT prophylaxis: SCDs CODE STATUS: DNR CCA, DNI Expected disposition: Home, 1 to 2 days Total clinical time spent by myself addressing the patient's medical issues, reviewing all the data, and collaborating with patient's care team: 35 minutes. Charges/Coding Visit Charges Inpatient E&M: 05757 Subs Hosp L2
[2023-06-26 17:28] LABS: Bedside Glucose 121 mg/dL (74-106)
[2023-06-26] MEDS: Pregabalin 75 MG Capsule 150 MG PO ×2 (18:16→22:10)
[2023-06-26] MEDS: Pantoprazole Sodium 40 MG in 0.9% Normal Saline (100mL MB+) 100 ML 330 MG IV (21:32)
--- NOTE | 2023-06-26 23:00 | EX.PCM.CON.G ---
HPI Consult Data Date of Consult: 06/26/23 HPI Narrative Reason for Consultation: GI bleed HPI Narrative: ELSA PUGH, is a 68 F who presents with nausea, vomiting, and melena. Patient states she has had multiple episodes of vomiting over the past week. Patient states that today she noted some blood streaks in her emesis. Patient states she has had some black stools recently. Patient states that her urine became darker. Patient is concerned that this could be blood. Patient is currently on Plavix. Patient saw her primary care physician today who referred to the emergency department for possible gastrointestinal bleeding. She also has a history of hypertension, hyperlipidemia, low HDL syndrome, hyper homocystinemia, intolerance of statins and xto-mnxcuya-gycyilrel diabetes mellitus. She has had numerous cardiac procedures including PCI in 2012 with a drug-eluting stent to the saphenous vein graft to right posterior descending artery, in 2014 with a drug-eluting stent to the proximal LAD and in-stent stenosis of the saphenous vein graft to the posterior descending artery. In 2015 she had a PCI to the saphenous vein graft to the posterior descending artery. In 2016 she had in-stent restenosis of that vessel as well as in 2017. Her catheterization in August 2017 demonstrated a normal left main coronary artery, and left circumflex artery which had 25 to 30% proximal stenosis, and left anterior descending artery which had a stented proximal portion the mid segment had a 40 to 50% stenosis, the left internal mammary artery to the left anterior descending artery was noted to be occluded, the right coronary artery was occluded, the saphenous vein graft to the posterior descending artery was patent. The distal body of the graft was a stented segment with 90% stenosis and therefore she underwent successful catheter-based drug-eluting stent placement to the proximal and distal body of the saphenous vein graft. The radial artery was noted to be previously occluded. Vitals in the ED at time of review were BP of 154/78. PA of 59, RR of 14 and temp of 97.4F. She was saturating at 96% on room air. CBC showed wbc of 7.3, hb of 11, platelets of 246. INR was 1.1. Chemistry showed sodium of 137, potassium of 4.2 nad bicarb of 31. Cr was 2.02, with a baseline Cr of 0.93. Urinalysis showed 1+ bacteria and positive nitrites. Stool for occult blood was negative. CT abdomen and pelvis showed scattered diverticulosis with no signs of diverticulitis and moderate to abundant fecal debris within the colon and no evidence of bowel obstruction or fee air; s/p cholecystectomy. [facility] Medical History Acute kidney failure Alcohol use Ambulates with cane Anemia Anxiety and depression Arthritis Atherosclerosis of coronary artery 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 Atherosclerotic heart disease of [place] coronary artery without angina pectoris Back pain Blackout Cardiology follow-up encounter Chest pain Concussion COVID CPAP (continuous positive airway pressure) dependence Diabetes Difficulty chewing Difficulty swallowing Epigastric pain Essential hypertension Former smoker Gastric reflux GERD (gastroesophageal reflux disease) Headache Hiatal hernia High cholesterol History of diverticulitis History of echocardiogram History of heart attack History of irregular heartbeat History of stress test Hyperhomocystinemia Hyperlipidemia Imbalance Injury of back Injury of head and neck Iron deficiency anemia Lymphedema Migraine headache Narcolepsy Obesity Obstructive sleep apnea Peripheral neuropathy Post-menopausal Proliferative diabetic retinopathy Restless legs Restless legs syndrome (RLS) Rheumatoid arthritis Shortness of breath on exertion Sleep apnea Type 2 diabetes mellitus Wears glasses Home Medications ascorbate calcium (vitamin C) 500 mg tablet 500 mg PO DAILY 10/26/21 [History Last Taken 05/17/23] red yeast rice 600 mg capsule 600 mg PO DAILY 10/26/21 [History Last Taken 05/17/23] pregabalin 150 mg capsule 150 mg PO BID 02/27/22 [History Last Taken 05/17/23] cholecalciferol (vitamin D3) 25 mcg (1,000 unit) capsule 25 mcg PO DAILY 06/04/22 [History Last Taken 05/17/23] ranolazine 1,000 mg tablet,extended release,12 hr 1,000 mg PO BID #180 tabs 06/25/22 [Rx Last Taken 05/17/23] nitroglycerin 0.4 mg sublingual tablet 0.4 mg sublingual Q5-15M PRN chest pain #25 tabs 10/15/22 [Rx Last Taken Unknown] metformin 500 mg tablet 1,000 mg PO BID 01/21/23 [History Last Taken 05/17/23] ezetimibe 10 mg tablet 10 mg PO DAILY 03/11/23 [History Last Taken 05/17/23] albuterol sulfate 90 mcg/actuation aerosol inhaler 1 puff inhalation Q6H PRN shortness of breath or wheezing 04/27/23 [History Last Taken Unknown] semaglutide 1 mg/dose (4 mg/3 mL) subcutaneous pen injector (Ozempic) 1 mg subcut QWEEK 04/27/23 [History Last Taken 05/16/23] aspirin 81 mg tablet,delayed release (Adult Aspirin Regimen) 81 mg PO DAILY 05/18/23 [History Last Taken 05/17/23] citalopram 40 mg tablet 20 mg PO DAILY 05/18/23 [History Last Taken 05/17/23] fenofibrate nanocrystallized 145 mg tablet 145 mg PO DAILY 05/18/23 [History Last Taken 05/17/23] losartan 50 mg tablet 50 mg PO BID #60 tabs 05/18/23 [Rx Last Taken Unknown] metoprolol succinate 25 mg tablet,extended release 24 hr 25 mg PO DAILY 05/18/23 [History Last Taken 05/17/23] pantoprazole 40 mg tablet,delayed release 40 mg PO DAILY 05/18/23 [History Last Taken 05/17/23] Handicap Placard #1 ea 06/05/23 [Rx Last Taken Unknown] isosorbide mononitrate 30 mg tablet,extended release 24 hr 30 mg PO DAILY #30 tabs 06/05/23 [Rx Last Taken Unknown] isosorbide mononitrate 60 mg tablet,extended release 24 hr 60 mg PO DAILY #30 tabs 06/05/23 [Rx Last Taken Unknown] clopidogrel 75 mg tablet 75 mg PO .COMPLEX #90 tabs 06/14/23 [Rx Last Taken Unknown] Allergy/AdvReac Type Severity Reaction Status Date / Time aspirin Allergy Rash Verified 06/25/23 17:06 banana Allergy Hives Verified 06/25/23 17:06 canagliflozin [From Invokana] Allergy Anaphylaxis Verified 06/25/23 17:06 kiwi Allergy Hives Verified 06/25/23 17:06 niacin Allergy Rash Verified 06/25/23 17:06 Penicillins [PCN] Allergy Hives Verified 06/25/23 17:06 Sulfa (Sulfonamide Allergy Hives Verified 06/25/23 17:06 Antibiotics) ticagrelor AdvReac Severe Severe Verified 06/25/23 17:06 nausea and vomiting erythromycin base AdvReac Other Verified 06/25/23 17:06 [From Staticin] ethyl alcohol [From Staticin] AdvReac Other Verified 06/25/23 17:06 gemfibrozil [From Lopid] AdvReac Other Verified 06/25/23 17:06 ibuprofen AdvReac Upset Verified 06/25/23 17:06 Stomach levofloxacin [From Levaquin] AdvReac Upset Verified 06/25/23 17:06 Stomach lisinopril AdvReac cough Verified 06/25/23 17:06 propoxyphene AdvReac Upset Verified 06/25/23 17:06 [From Darvocet-N] Stomach spironolactone AdvReac hyperkalemi Verified 06/25/23 17:06 a Ufudcfm-YVI-WaU Reductase AdvReac unknown Verified 06/25/23 17:06 Inhibitor [Mijztmu-Dyo-Bqx Reductase Inhibitor] tramadol AdvReac Other Verified 06/25/23 17:06 Family History Mother Heart disease Father Heart disease Diabetes Surgical History H/O coronary artery bypass surgery (10/2001) History of cataract surgery History of cholecystectomy History of colonoscopy with polypectomy History of coronary artery stent placement (04/30/23) History of hysterectomy History of left heart catheterization History of tonsillectomy Social History household members: spouse Smoking Status: Former smoker how long ago did patient quit smokin alcohol intake: current alcohol intake frequency: holidays/special occasions only Alcohol type: beer substance use type: does not use what type of physical activity do you participate in: walking frequency: 5-6 times per week ROS Constitutional Constitutional: Reports fatigue and malaise; Denies anorexia, chills, fever(s) or weakness Eyes Eyes: Denies change in vision ENT HEENT: Denies dysphagia or headache(s) Cardiovascular Cardiovascular: Denies chest pain, edema, orthopnea, palpitations or paroxysmal nocturnal dyspnea Respiratory/Chest Respiratory/Chest: Denies cough, shortness of breath at rest or shortness of breath with exertion Gastrointestinal Gastrointestinal: Reports nausea and vomiting; Denies abdominal pain, diarrhea or dyspepsia Genitourinary Genitourinary: Denies dysuria or urinary frequency Musculoskeletal Musculoskeletal: Denies back pain, joint pain, joint stiffness or joint swelling Neurologic Neurologic: Denies dizziness, focal weakness, headache(s) or weakness Psychiatric Psychiatric: Denies anxiety or depression Endocrine Endocrinology: Denies change in body appearance Physical Exam Const alert, oriented x3 and no apparent distress Constitutional Narrative: Pleasant elderly female, obese, sitting comfortably at edge of bed, conversing normally, no acute distress. General Appearance: cooperative and comfortable HEENT normocephalic, head/scalp atraumatic, hearing grossly normal bilaterally, nasal mucous membranes and turbinates normal and moist oral mucous membranes Eyes PERRL, EOMs intact bilaterally and conjunctivae normal Neck full ROM, no lymphadenopathy and supple Lymph Lymphatic: no lymphadenopathy noted Chest inspection of chest normal Resp normal respiratory effort, normal air movement, no use of accessory muscles and clear to auscultation bilaterally Cardio regular rate, regular rhythm, no murmurs and peripheral pulses 2+ throughout GI normal to inspection, nondistended, normoactive bowel sounds, soft to palpation, non-tender and non-distended Back/Spine normal ROM Extremity normal to inspection, full ROM and no pedal edema Skin no rashes or lesions noted Neuro no focal motor deficits and no sensory deficits noted Speech: speech normal Psych mental status grossly normal Lab / Micro Data 06/27/23 07:42 06/27/23 07:42 Labs: Laboratory Results - last 24 hr 06/26/23 12:30: POC Glucose 130 H 06/26/23 17:08: POC Glucose 121 H 06/26/23 21:41: POC Glucose 119 H 06/27/23 06:36: POC Glucose 123 H 06/27/23 07:42: WBC 5.6, RBC 3.49 L, Hgb 10.3 L, Hct 31.0 L, MCV 88.8, MCH 29.5, MCHC 33.2, RDW Std Deviation 45.6 H, RDW Coeff of Nancy 14.2, Plt Count 214, MPV 11.6, Sodium 138, Potassium 4.8, Chloride 108 H, Carbon Dioxide 26.0, Anion Gap 4 L, BUN 16, Creatinine 1.12 H, Estim Creat Clear Calc 52.54, Est GFR (MDRD) Af Amer 62, Est GFR (MDRD) Non-Af 51 L, BUN/Creatinine Ratio 14.3, Glucose 115 H, Calcium 8.8 06/27/23 11:23: POC Glucose 101 Assessment & Plan Assessment/Plan (1) Nausea and vomiting: (2) Urinary tract infection: PLAN: Plan 68-year-old with CAD status post PTCA with PCI on aspirin and Plavix presents with nausea and vomiting possibly due to UTI She also complained of dark stools, which is possibly secondary to gastritis or peptic disease secondary to to any platelet medicines that she takes on a daily basis due to her cardiac history She will undergo an upper endoscopy to evaluate upper GI tract. She was explained alternatives, risk, benefits include not withstanding bleeding, infection, sepsis, perforation, need for emergent surgery . She will have an ASA of 3. Charges/Coding Visit Charges Inpatient E&M: 04181 Init Hosp L3
[2023-06-26 23:44] LABS: Bedside Glucose 119 mg/dL (74-106)
[2023-06-27] VITALS (15 sets, daily range): BP systolic 123–161; BP diastolic 43–101; PULSE 50–56; RESP 16–18; TEMP 36–36.7; O2SAT 95–100; BMI 30.8
[2023-06-27] MEDS: Acetaminophen 325 MG Tablet 650 MG PO (04:48)
[2023-06-27 06:54] LABS: Bedside Glucose 123 mg/dL (74-106)
[2023-06-27] MEDS: Pantoprazole Sodium 40 MG in 0.9% Normal Saline (100mL MB+) 100 ML 330 MG IV (08:39)
[2023-06-27] MEDS: Ondansetron 4 MG/2 ML Vial IV (08:39)
[2023-06-27 08:57] LABS: Hemoglobin 10.3 g/dL (12.0-15.0); Mean Corp Hgb Conc 33.2 g/dL (32-36); Mean Corpuscular Hgb 29.5 pg (27.0-32.0); Mean Corpuscular Volume 88.8 fL (81-99); Mean Platelet Vol. 11.6 fl (6.2-12.0); Platelet Count 214 K/mm3 (150-450); RBC Distribution Width CV 14.2 % (11.6-14.6); RBC Distribution Width SD 45.6 fl (35.1-43.9); Red Blood Count 3.49 M/mm3 (4.2-5.4); White Blood Count 5.6 K/mm3 (4.4-11.0)
[2023-06-27 09:30] LABS: Anion Gap 4 (5-15); BUN 16 mg/dL (7-18); BUN/Creat Ratio 14.3 RATIO (10-20); Calcium,Total 8.8 mg/dL (8.5-10.1); Chloride 108 mmol/L (98-107); Creatinine, Serum 1.12 mg/dL (0.55-1.02); EST Glomerular Filtration Rate 51 mL/min (>60); Est Glom Filt Rate - Afr Amer 62 mL/min (>60); Estimated Creatinine Clearance 52.54 ml/min; Glucose 115 mg/dL (74-106); Potassium 4.8 mmol/L (3.5-5.1); Sodium Level 138 mmol/L (136-145)
[2023-06-27] MEDS: Ceftriaxone 1 GM/50 ML BAG IV (10:17)
[2023-06-27 11:41] LABS: Bedside Glucose 101 mg/dL (74-106)
[2023-06-27] MEDS: 0.9% Normal Saline (1000mL) 1,000 ML 15 ML IV (12:00)
--- NOTE | 2023-06-27 12:30 | EGD_PTH ---
PATHOLOGY RESULTS PATIENT: ELSA PUGH LOC: MS2 U#:[id number] AGE/SX: 68/F [place] [facility] [place] RE06/26/[address]: Dr. Helio Yuen DO : 1955 BED: 1 DIS: 06/27/2023 SPEC #: [id number] RECD: 06/27/23 13:37 STATUS: EZIO REQ #: [id number] CYRUS: 06/27/23 12:[address]: Hugo Alcaraz DEPT: SURGICAL PATHOLOGY RECD BY: Ella Bernardo ENTERED: 06/28/23 08:11 SP TYPE: EGD BIOPSY OTHR DR: DO Dr. Redd Christian MD Dr. Nana Yaa Koram, MD Tissues: Gastric mucous membrane Procedures: Surgery Specimen Level IV Comments: @ Ordering doctor for SUIV edited from to @ by DOMINIQUE at 06/28/23 1154 @ Submitting doctor edited from to @ by RGOOD at 06/28/23 1154 HEADER OPERATION: EGD with biopsy PRE-OP DIAGNOSIS: GI bleed TISSUE SUBMITTED: Gastric ulcer biopsy MICROSCOPIC DIAGNOSIS Gastric ulcer, biopsy: Chronic gastritis with focal acute gastritis. See comment. AM:martinez 07/01/2023 COMMENT The results of immunohistochemistry for Helicobacter pylori will be reported separately ([id number]). MICROSCOPIC DESCRIPTION Slides are reviewed. GROSS DESCRIPTION Received in fixative is one container labeled with the patient's name and designated gastric ulcer biopsy. The specimen consists of two irregular fragments of light rosario soft tissue that in aggregate measure 0.8 x 0.4 x 0.1 cm. The specimen is totally submitted in one cassette. / SJ:martinez 06/28/23 TC:2 CPT: 87545
--- NOTE | 2023-06-27 12:30 | IMM_PTH ---
PATHOLOGY RESULTS PATIENT: ELSA PUGH LOC: MS2 U#:[id number] AGE/SX: 68/F [place] [facility] [place] [place]06/26/[address]: Dr. Helio Yuen DO : 1955 BED: 1 DIS: 06/27/2023 SPEC #: [id number] RECD: 06/28/23 11:54 STATUS: EZIO REQ #: [id number] CYRUS: 06/27/23 12:[address]: Hugo Alcaraz DEPT: IMMUNOHISTOCHEMISTRY RECD BY: Olga Boothe ENTERED: 06/28/23 11:55 SP TYPE: IMMUNO OTHR DR: DO Dr. Redd Christian MD Dr. Nana Yaa Koram, MD Tissues: Stomach, NOS Procedures: H Pylori (initial) PHYSICIAN & INSTITUTION [place] [id number] SPECIMEN INFORMATION: Tissue Source: Gastric ulcer biopsy Clinical Info: GI bleed Specimen Number: [id number] CPT code: 91456 METHODOLOGY: Deparaffinized sections of prefer/formalin-fixed tissue or PAP/DQ stained slides are incubated with monoclonal/polyclonal antibodies/oligonucleotide probes. Localization is made via biotin free immunoperoxidase method. Appropriate controls are performed and reacted as expected. Results on target cell population are indicated in the following table: RESULTS: ANTIBODY / CLONE RESULT H Pylori (polyclonal) negative These tests were developed and their performance characteristics determined by [facility]. They may not have been cleared or approved by the U.S. Food and Drug Administration. The FDA has determined that such clearance or approval is not necessary. The above immunohistochemical/dualISH markers are ordered and reviewed by the Pathologist. INTERPRETATION: Gastric ulcer, biopsy: Negative for Helicobacter pylori organisms. AM:martinez 07/01/2023
--- NOTE | 2023-06-27 12:56 | OP.EGD_ITS ---
Patient Name: Lu Damon Procedure Date: 06/27/2023 12:29 PM Date of : 1955 Age: 68 Procedure: Upper GI endoscopy Indications: Epigastric abdominal pain, Dyspepsia Providers: Hugo Alcaraz DO Medicines: Monitored Anesthesia Care Patient Profile: This is a 68 year old female. Refer to note in patient chart for documentation of history and physical. Patient has symptoms of acute nausea and acute vomiting. Complications: No immediate complications. Procedure: Pre-Anesthesia Assessment: - Prior to the procedure, a History and Physical was performed, and patient medications and allergies were reviewed. The patient is competent. The risks and benefits of the procedure and the sedation options and risks were discussed with the patient. All questions were answered and informed consent was obtained. Patient identification and proposed procedure were verified by the physician. Mental Status Examination: alert and oriented. Prophylactic Antibiotics: The patient does not require prophylactic antibiotics. Prior Anticoagulants: The patient has taken no anticoagulant or antiplatelet agents except for NSAID medication. ASA Grade Assessment: III - A patient with severe systemic disease. After reviewing the risks and benefits, the patient was deemed in satisfactory condition to undergo the procedure. The anesthesia plan was to use monitored anesthesia care (MAC). Immediately prior to administration of medications, the patient was re-assessed for adequacy to receive sedatives. The heart rate, respiratory rate, oxygen saturations, blood pressure, adequacy of pulmonary ventilation, and response to care were monitored throughout the procedure. The physical status of the patient was re-assessed after the procedure. After obtaining informed consent, the endoscope was passed under direct vision. Throughout the procedure, the patient's blood pressure, pulse, and oxygen saturations were monitored continuously. The gastroscope was introduced through the mouth, and advanced to the second part of duodenum. The upper GI endoscopy was accomplished without difficulty. The patient tolerated the procedure well. Scope In: 12:44:41 PM Scope Out: 12:48:22 PM Total Procedure Duration Time 0 hours 3 minutes 41 seconds Findings: The examined esophagus was normal. One non-bleeding linear gastric ulcer with no stigmata of bleeding was found in the gastric antrum. The lesion was 6 mm in largest dimension. Biopsies were taken with a cold forceps for histology. Verification of patient identification for the specimen was done. Estimated blood loss was minimal. Biopsies were taken with a cold forceps for Helicobacter pylori testing. Verification of patient identification for the specimen was done. Estimated blood loss was minimal. The second portion of the duodenum was normal. Impression: - Normal esophagus. - Non-bleeding gastric ulcer with no stigmata of bleeding. Biopsied. - Normal second portion of the duodenum. Recommendation: - [facility]. - Full liquid diet. - Continue present medications. - Await pathology results. Procedure Code(s): --- Professional --- 15595, Esophagogastroduodenoscopy, flexible, transoral; with biopsy, single or multiple CPT copyright 2021 [employer]. All rights reserved. The codes documented in this report are preliminary and upon medical records coder review may be revised to meet current compliance requirements. Hugo Alcaraz DO 06/27/2023 12:55:48 PM This report has been signed electronically. Number of Addenda: 0 Note Initiated On: 06/27/2023 12:29 PM
--- NOTE | 2023-06-27 12:56 | OP.CCLET_ITS ---
06/27/2023 Redd Carney Re : Upper GI endoscopy procedure for Lu Damon Dear Rommel This procedure was performed on June. My impressions and recommendations are as follows: Impressions : - Normal esophagus. - Non-bleeding gastric ulcer with no stigmata of bleeding. Biopsied. - Normal second portion of the duodenum. Recommendations : - [facility]. - Full liquid diet. - Continue present medications. - Await pathology results. My findings are described in the full procedure note, which is enclosed. If I can be of further assistance, please feel free to contact me at . Sincerely, Hugo Alcaraz, 06/27/2023 12:55:48 PM This report has been signed electronically.
--- NOTE | 2023-06-27 13:32 | EKG12_ITS ---
Test Reason : POSTOP Blood Pressure : / mmHG Vent. Rate : 051 BPM Atrial Rate : 051 BPM P-R Int : 186 ms QRS Dur : 098 ms QT Int : 570 ms P-R-T Axes : 053 027 010 degrees QTc Int : 525 ms Sinus bradycardia Nonspecific T wave abnormality Abnormal ECG Confirmed by CORINNE SON, ALIE ([id number]), publication editor BARRY LOU ([id number]) on 07/01/2023 2:01:09 PM Referred By: BERNARD Confirmed By:ALIE SUN MD
--- NOTE | 2023-06-27 14:04 | SUR.PHASEI ---
Patient told pacu nurse that they were experiencing chest pain/ pressure. Similar to when I had my heart attack 3 weeks ago . Anesthesia informed. 12 lead EKG ordered and performed. Troponin draw ordered and pending. Nitroglycerin SL ordered and given, see PACU order sheet, total of 3 doses. Patient remains in PACU.
[2023-06-27 14:10] LABS: Troponin-I HS 8 pg/mL (3.0-54.0)
--- NOTE | 2023-06-27 14:44 | SUR.PHASEI ---
full liquid diet post egd
[2023-06-27] MEDS: Isosorbide Mononitrate 30 MG Tablet 90 MG PO (15:30)
[2023-06-27] MEDS: Cholecalciferol (VIT D3) 25 MCG TABLET (1,000 UNITS) PO (15:31)
[2023-06-27] MEDS: Fenofibrate 145 MG Tablet PO (15:31)
[2023-06-27] MEDS: Ranolazine 500 MG Tablet 1000 MG PO (15:31)
[2023-06-27] MEDS: Ezetimibe 10 MG Tablet PO (15:31)
[2023-06-27] MEDS: Ascorbic Acid 500 MG Tablet PO (15:31)
[2023-06-27] MEDS: Citalopram 20 MG Tablet PO (15:32)
[2023-06-27 16:48] LABS: Troponin-I HS 8 pg/mL (3.0-54.0)
[2023-06-27] MEDS: Pregabalin 75 MG Capsule 150 MG PO (17:22)
--- NOTE | 2023-06-27 17:26 | DCINST_ITS ---
Discharge Instructions Diet Discharge Diet: No restrictions Activity Discharge Activity: No Restrictions Return to work on:: 07/01/23 Weight Bearing Status: Full weight bearing Follow Up Care Please Follow Up With: Redd Carney MD When: As needed Test Results: Test results from this visit will be discussed in further detail at your follow- up appointment, if applicable. Pending Tests Upon Discharge: None Discharge Plan Admission Admit Date/Time: 06/26/23 00:58 Primary Reason for Your Visit: Nausea/vomiting, anemia Attending Provider: Helio Yuen Primary Care Provider: Redd Carney Consulting Providers: Alpa Cooney Instructions Additional Instructions / Restrictions: Please take Protonix twice daily going forward as noted below. Please stop taking Ozempic. Take all other medications as previous. Follow-up with your primary care doctor in the next 1 to 2 weeks and have a repeat CBC drawn at that appointment. Discharge Orders/Prescriptions Prescriptions: Continued red yeast rice 600 mg capsule 600 mg PO DAILY Rx Instructions: give with meal/snack ascorbate calcium (vitamin C) 500 mg tablet 500 mg PO DAILY pregabalin 150 mg capsule 150 mg PO BID Patient Comments: TAKE 1 CAPSULE BY MOUTH TWICE DAILY FOR 30 DAYS (TAKE ONE CAPSULE AT DINNER AND ONE CAPSULE BEFORE BED) ranolazine 1,000 mg tablet extended release 12 hr 1,000 mg PO BID Qty: 180 3RF cholecalciferol (vitamin D3) 25 mcg (1,000 unit) capsule 25 mcg PO DAILY isosorbide mononitrate 60 mg tablet extended release 24 hr 60 mg PO DAILY Qty: 30 6RF isosorbide mononitrate 30 mg tablet extended release 24 hr 30 mg PO DAILY Qty: 30 11RF Rx Instructions: Adding to her 60mg isosorbide to equal 90mg daily (DME) Handicap Placard See Rx Instructions .Route .MEDSUPPLY Qty: 1 0RF Rx Instructions: As directed Expires 06/05/2028 metformin 500 mg tablet 1,000 mg PO BID albuterol sulfate 90 mcg/actuation HFA aerosol inhaler 1 puff INHALATION Q6H PRN (Reason: shortness of breath or wheezing) metoprolol succinate 25 mg tablet extended release 24 hr 25 mg PO DAILY aspirin [Adult Aspirin Regimen] 81 mg tablet,delayed release (DR/EC) 81 mg PO DAILY fenofibrate nanocrystallized 145 mg tablet 145 mg PO DAILY citalopram 40 mg tablet 20 mg PO DAILY losartan 50 mg tablet 50 mg PO BID Qty: 60 0RF nitroglycerin 0.4 mg tablet, sublingual 0.4 mg sublingual Q5-15M PRN (Reason: chest pain) Qty: 25 3RF Rx Instructions: do not exceed 3 doses per episode ezetimibe 10 mg tablet 10 mg PO DAILY Changed clopidogrel 75 mg tablet 75 mg PO .COMPLEX Qty: 90 3RF Rx Instructions: Take 1 tablet by mouth daily pantoprazole 40 mg tablet,delayed release (DR/EC) 40 mg PO BID 30 Days Qty: 60 0RF Discontinued Ozempic 1 mg/dose (4 mg/3 mL) pen injector 1 mg SUBCUT QWEEK Referrals / Follow Up: Redd Carney MD [Primary Care Provider] - Disposition Disposition (needs filled in before D/C Order can be placed): Home, Self Care
--- NOTE | 2023-06-27 17:31 | DS.PCM_ITS ---
Providers Date of Admission: 06/26/23 Date of Discharge: 06/27/23 Primary Care Physician: Dr. Redd Carney MD Consultations 06/26/23 17:10 Consult: Gastroenterology Routine Consulting Provider: [facility] Reason for Consult: Concern for upper GI bleed EMERGENT Consult: No MD Notified: Yes Date Notified: 06/27/23 Time Notified: 07:27 Method of Notification: Text Reason For Visit: UTI, CA Diagnosis Discharge Diagnosis (1) Nausea and vomiting: Status: Acute Code(s): R11.2 - Nausea with vomiting, unspecified (2) Urinary tract infection: Status: Acute Code(s): N39.0 - Urinary tract infection, site not specified Medications at Discharge Home Medications ascorbate calcium (vitamin C) 500 mg tablet 500 mg PO DAILY 10/26/21 red yeast rice 600 mg capsule 600 mg PO DAILY 10/26/21 pregabalin 150 mg capsule 150 mg PO BID 02/27/22 cholecalciferol (vitamin D3) 25 mcg (1,000 unit) capsule 25 mcg PO DAILY 06/04/22 ranolazine 1,000 mg tablet,extended release,12 hr 1,000 mg PO BID #180 tabs 06/25/22 nitroglycerin 0.4 mg sublingual tablet 0.4 mg sublingual Q5-15M PRN chest pain #25 tabs 10/15/22 metformin 500 mg tablet 1,000 mg PO BID 01/21/23 ezetimibe 10 mg tablet 10 mg PO DAILY 03/11/23 albuterol sulfate 90 mcg/actuation aerosol inhaler 1 puff inhalation Q6H PRN shortness of breath or wheezing 04/27/23 aspirin 81 mg tablet,delayed release (Adult Aspirin Regimen) 81 mg PO DAILY 05/18/23 citalopram 40 mg tablet 20 mg PO DAILY 05/18/23 fenofibrate nanocrystallized 145 mg tablet 145 mg PO DAILY 05/18/23 losartan 50 mg tablet 50 mg PO BID #60 tabs 05/18/23 metoprolol succinate 25 mg tablet,extended release 24 hr 25 mg PO DAILY 05/18/23 Handicap Placard #1 ea 06/05/23 isosorbide mononitrate 30 mg tablet,extended release 24 hr 30 mg PO DAILY #30 tabs 06/05/23 isosorbide mononitrate 60 mg tablet,extended release 24 hr 60 mg PO DAILY #30 tabs 06/05/23 clopidogrel 75 mg tablet 75 mg PO .COMPLEX #90 tabs 06/27/23 pantoprazole 40 mg tablet,delayed release 40 mg PO BID 30 days #60 tabs 06/27/23 Hospital Course Operations None Procedures EGD and - (CT abdomen pelvis without contrast) Summary of Care Provided Minutes Spent on Discharge: 35 Hospital Course: Patient is a 68-year-old female who presented to [facility] ED on 06/25/2023 with nausea/vomiting and melena. Short hospital course as noted below. Stable for discharge home on 06/27. 1. Nausea and vomiting, improved Unclear etiology. May have been secondary to possible UTI as noted below verses side effect of her Ozempic. Appeared dry on exam on admit, labs appeared hemoconcentrated. Improved with IV fluids in the ED. No further episodes of nausea or vomiting during the admission. CT abdomen pelvis with oral contrast only showed moderate to abundant fecal debris within the colon, no signs of bowel obstruction, no other abnormalities. ? Patient much improved after IV fluid resuscitation. Will hold home Ozempic on discharge, can consider discussing with outpatient physician on restarting as needed. 2. Acute on chronic anemia, reported melena with concern for upper GI bleed Patient reported some dark stools at home over the week prior to admission. Hemoglobin 11.0 on admit, down trended to 9.7 with IV fluids. Baseline hemoglobin 11-12. Stool occult blood negative in ED. ? Gastroenterology followed. S/p EGD on 06/27 that showed nonbleeding gastric ulcer, otherwise normal. Hemoglobin stable around 10 on discharge. Okay to resume home aspirin and Plavix on discharge. Will increase home PPI to twice daily going forward. Recommend repeat CBC in 5 to 7 days to ensure continued stability of hemoglobin. 3. CA, improving Creatinine 2.02, BUN 32 on admit. Baseline creatinine 0.7-0.9. Presumed prerenal in setting of GI losses and poor p.o. intake. ? Creatinine 1.12 on 06/27, much improved after IV fluids. Good urine output during admission. Recommend repeat BMP in 5 to 7 days to ensure that creatinine has returned to baseline. 4. Concern for UTI ? UA on admit showed 100 leukocyte esterase, positive nitrates, 1+ bacteria. Urine culture with no growth. Treated with ceftriaxone while inpatient, discontinued antibiotics on discharge. Chronic medical conditions: ? Type 2 diabetes mellitus: Sliding scale insulin while inpatient. Restarted home metformin, held home Ozempic as noted above on discharge. ? Hypertension, hyperlipidemia: Held home losartan during admission given CA, okay to resume on discharge. Continue home Zetia. ? Depression: Continue home citalopram. ? CAD s/p CABG: Continue home Imdur and Zetia. Resumed aspirin and Plavix on discharge. ? History of cholecystectomy Total clinical time spent by myself addressing the patient's medical issues, reviewing all the data, and collaborating with patient's care team: 35 minutes. Physical Exam Const alert, oriented x3 and no apparent distress Constitutional Narrative: Pleasant elderly female, obese, sitting comfortably at edge of bed, conversing normally, no acute distress. General Appearance: cooperative and comfortable HEENT normocephalic, head/scalp atraumatic, hearing grossly normal bilaterally, nasal mucous membranes and turbinates normal and moist oral mucous membranes Eyes PERRL, EOMs intact bilaterally and conjunctivae normal Neck full ROM, no lymphadenopathy and supple Lymph Lymphatic: no lymphadenopathy noted Chest inspection of chest normal Resp normal respiratory effort, normal air movement, no use of accessory muscles and clear to auscultation bilaterally Cardio regular rate, regular rhythm, no murmurs and peripheral pulses 2+ throughout GI normal to inspection, nondistended, normoactive bowel sounds, soft to palpation, non-tender and non-distended Back/Spine normal ROM Extremity normal to inspection, full ROM and no pedal edema Skin no rashes or lesions noted Neuro no focal motor deficits and no sensory deficits noted Speech: speech normal Psych mental status grossly normal Weight / BMI Weight Weight: 86.545 kg Body Mass Index (BMI) 30.8 ABG / Lab / Microbiology Data 06/27/23 07:42 06/27/23 07:42 Laboratory: Laboratory Results - last 24 hr 06/26/23 21:41: POC Glucose 119 H 06/27/23 06:36: POC Glucose 123 H 06/27/23 07:42: WBC 5.6, RBC 3.49 L, Hgb 10.3 L, Hct 31.0 L, MCV 88.8, MCH 29.5, MCHC 33.2, RDW Std Deviation 45.6 H, RDW Coeff of Nancy 14.2, Plt Count 214, MPV 11.6, Sodium 138, Potassium 4.8, Chloride 108 H, Carbon Dioxide 26.0, Anion Gap 4 L, BUN 16, Creatinine 1.12 H, Estim Creat Clear Calc 52.54, Est GFR (MDRD) Af Amer 62, Est GFR (MDRD) Non-Af 51 L, BUN/Creatinine Ratio 14.3, Glucose 115 H, Calcium 8.8 06/27/23 11:23: POC Glucose 101 06/27/23 13:42: Troponin I High Sens 8 06/27/23 15:40: Troponin I High Sens 8 Microbiology: Microbiology 06/25/23 23:20 Stool Stool Occult Blood (LARISSA) - Final D/C Instructions Discharge Diet: No restrictions Return to work on: 07/01/23 Weight Bearing Status: Full weight bearing Pending Tests Upon Discharge: None Please Follow Up With: Redd Carney MD When: As needed Meaningful Use Info Meaningful Use Diagnoses (Choose all that apply): None applicable Discharge Plan Admission Admit Date/Time: 06/26/23 00:58 Primary Reason for Your Visit: Nausea/vomiting, anemia Attending Provider: Helio Yuen Primary Care Provider: Redd Carney Consulting Providers: Alpa Cooney Instructions Additional Instructions / Restrictions: Please take Protonix twice daily going forward as noted below. Please stop taking Ozempic. Take all other medications as previous. Follow-up with your primary care doctor in the next 1 to 2 weeks and have a repeat CBC drawn at that appointment. Discharge Orders/Prescriptions Prescriptions: Continued red yeast rice 600 mg capsule 600 mg PO DAILY Rx Instructions: give with meal/snack ascorbate calcium (vitamin C) 500 mg tablet 500 mg PO DAILY pregabalin 150 mg capsule 150 mg PO BID Patient Comments: TAKE 1 CAPSULE BY MOUTH TWICE DAILY FOR 30 DAYS (TAKE ONE CAPSULE AT DINNER AND ONE CAPSULE BEFORE BED) ranolazine 1,000 mg tablet extended release 12 hr 1,000 mg PO BID Qty: 180 3RF cholecalciferol (vitamin D3) 25 mcg (1,000 unit) capsule 25 mcg PO DAILY isosorbide mononitrate 60 mg tablet extended release 24 hr 60 mg PO DAILY Qty: 30 6RF isosorbide mononitrate 30 mg tablet extended release 24 hr 30 mg PO DAILY Qty: 30 11RF Rx Instructions: Adding to her 60mg isosorbide to equal 90mg daily (DME) Handicap Dalia See Rx Instructions .Route .MEDSUPPLY Qty: 1 0RF Rx Instructions: As directed Expires 06/05/2028 metformin 500 mg tablet 1,000 mg PO BID albuterol sulfate 90 mcg/actuation HFA aerosol inhaler 1 puff INHALATION Q6H PRN (Reason: shortness of breath or wheezing) metoprolol succinate 25 mg tablet extended release 24 hr 25 mg PO DAILY aspirin [Adult Aspirin Regimen] 81 mg tablet,delayed release (DR/EC) 81 mg PO DAILY fenofibrate nanocrystallized 145 mg tablet 145 mg PO DAILY citalopram 40 mg tablet 20 mg PO DAILY losartan 50 mg tablet 50 mg PO BID Qty: 60 0RF nitroglycerin 0.4 mg tablet, sublingual 0.4 mg sublingual Q5-15M PRN (Reason: chest pain) Qty: 25 3RF Rx Instructions: do not exceed 3 doses per episode ezetimibe 10 mg tablet 10 mg PO DAILY Changed clopidogrel 75 mg tablet 75 mg PO .COMPLEX Qty: 90 3RF Rx Instructions: Take 1 tablet by mouth daily pantoprazole 40 mg tablet,delayed release (DR/EC) 40 mg PO BID 30 Days Qty: 60 0RF Discontinued Ozempic 1 mg/dose (4 mg/3 mL) pen injector 1 mg SUBCUT QWEEK Referrals / Follow Up: Redd Carney MD [Primary Care Provider] - Disposition Disposition (needs filled in before D/C Order can be placed): Home, Self Care Charges/Coding Visit Charges Inpatient E&M: 23067 Disch Hosp >30min
--- NOTE | 2023-06-27 17:41 | CASEMGMT ---
GLORIA GARCIA NOTE: Pt being discharged. GLORIA GARCIA to room. Pt up ad luisito in room. She denies having any discharge needs/concerns. Neal BSN GLORIA GARCIA
[2023-06-27 17:50] LABS: Bedside Glucose 110 mg/dL (74-106)
== END 2023-06-27 18:00 | disposition home or self-care (01) ==
LOC: ED 06-26 00:06 → MS3 06-26 07:07 → MS2 06-27 08:41 → MS3 06-28 12:23
PROVIDERS: Anesthesiology; Internal Medicine Gastroenterology; Admitting Provider Student in an Organized Health Care Education/Training Program; Emergency Provider Emergency Medicine; PCP Family Medicine; Visit Provider Hospitalist
PROC: 0DJ08ZZ Inspection of Upper Intestinal Tract, Via Natural or Artificial Opening Endoscopic (ICD-10-PCS; CPT 43235; principal; 2023-06-27 12:25)
DX: R11.2 Nausea with vomiting, unspecified (principal); E11.3599 Type 2 diabetes mellitus with proliferative diabetic retinopathy without macular edema, unspecified eye; N17.9 Acute kidney failure, unspecified; M06.9 Rheumatoid arthritis, unspecified; E11.42 Type 2 diabetes mellitus with diabetic polyneuropathy; N39.0 Urinary tract infection, site not specified; I10 Essential (primary) hypertension; G25.81 Restless legs syndrome; F32.A Depression, unspecified; I25.10 Atherosclerotic heart disease of native coronary artery without angina pectoris; G47.33 Obstructive sleep apnea (adult) (pediatric); E78.00 Pure hypercholesterolemia, unspecified; E66.9 Obesity, unspecified; Z86.16 Personal history of COVID-19; Z95.5 Presence of coronary angioplasty implant and graft; Z79.84 Long term (current) use of oral hypoglycemic drugs; Z87.891 Personal history of nicotine dependence; Z66 Do not resuscitate; Z79.82 Long term (current) use of aspirin; Z79.02 Long term (current) use of antithrombotics/antiplatelets; Z79.899 Other long term (current) drug therapy; K29.50 Unspecified chronic gastritis without bleeding; K25.9 Gastric ulcer, unspecified as acute or chronic, without hemorrhage or perforation; D64.9 Anemia, unspecified
CPT/HCPCS: 43239; 36415; 74176; 80048; 80053; 81001; 82274; 82962; 83690; 84484; 85025; 85027; 85610; 85730; 87086; 87088; 88305; 88342; 93005; 96361; 96365; 96366; 96367; 96372; 96375; 99221; 99285; J7030; J7050; A4216; G0378; J0744; J2405

== ENCOUNTER → 2023-07-03 | Outpatient (CLI) | payer MEDICARE, SELFPAY ==
--- NOTE | 2023-07-03 09:57 | PCM.CR.HP2 ---
CR - History & Physical General Arrival date:: 07/03/23 Arrival time:: 09:57 Date of Referral:: 06/21/23 Date of CR Evaluation:: 07/03/23 Referring Physician: Dr. Osorio Primary Diagnosis: NJ-nonSTEMI <12minths History of Present Cardiac Event Onset Date Acute Myocardial Infarction within 12 months:: Yes PTCA or coronary stenting:: Yes Vessel: SVG Medications Ambulatory Orders Medication Instructions Recorded ascorbate calcium (vitamin C) 500 500 mg PO DAILY 10/26/21 mg tablet red yeast rice 600 mg capsule 600 mg PO DAILY 10/26/21 pregabalin 150 mg capsule 150 mg PO BID 02/27/22 cholecalciferol (vitamin D3) 25 25 mcg PO DAILY 06/04/22 mcg (1,000 unit) capsule ranolazine 1,000 mg 1,000 mg PO BID #180 tabs 06/25/22 tablet,extended release,12 hr nitroglycerin 0.4 mg sublingual 0.4 mg sublingual Q5-15M PRN chest 10/15/22 tablet pain #25 tabs metformin 500 mg tablet 1,000 mg PO BID 01/21/23 ezetimibe 10 mg tablet 10 mg PO DAILY 03/11/23 albuterol sulfate 90 mcg/actuation 1 puff inhalation Q6H PRN 04/27/23 aerosol inhaler shortness of breath or wheezing aspirin 81 mg tablet,delayed 81 mg PO DAILY 05/18/23 release (Adult Aspirin Regimen) citalopram 40 mg tablet 20 mg PO DAILY 05/18/23 fenofibrate nanocrystallized 145 145 mg PO DAILY 05/18/23 mg tablet losartan 50 mg tablet 50 mg PO BID #60 tabs 05/18/23 metoprolol succinate 25 mg 25 mg PO DAILY 05/18/23 tablet,extended release 24 hr Handicap Placard #1 ea 06/05/23 isosorbide mononitrate 30 mg 30 mg PO DAILY #30 tabs 06/05/23 tablet,extended release 24 hr isosorbide mononitrate 60 mg 60 mg PO DAILY #30 tabs 06/05/23 tablet,extended release 24 hr clopidogrel 75 mg tablet 75 mg PO .COMPLEX #90 tabs 06/27/23 pantoprazole 40 mg tablet,delayed 40 mg PO BID 30 days #60 tabs 06/27/23 release Allergies Allergies aspirin Allergy (Verified 06/25/23 17:06) Rash banana Allergy (Verified 06/25/23 17:06) Hives canagliflozin [From Invokana] Allergy (Verified 06/25/23 17:06) Anaphylaxis kiwi Allergy (Verified 06/25/23 17:06) Hives niacin Allergy (Verified 06/25/23 17:06) Rash Penicillins [PCN] Allergy (Verified 06/25/23 17:06) Hives Sulfa (Sulfonamide Antibiotics) Allergy (Verified 06/25/23 17:06) Hives ticagrelor Adverse Reaction (Severe, Verified 06/25/23 17:06) Severe nausea and vomiting erythromycin base [From Staticin] Adverse Reaction (Verified 06/25/23 17:06) Other ethyl alcohol [From Staticin] Adverse Reaction (Verified 06/25/23 17:06) Other gemfibrozil [From Lopid] Adverse Reaction (Verified 06/25/23 17:06) Other ibuprofen Adverse Reaction (Verified 06/25/23 17:06) Upset Stomach levofloxacin [From Levaquin] Adverse Reaction (Verified 06/25/23 17:06) Upset Stomach lisinopril Adverse Reaction (Verified 06/25/23 17:06) cough propoxyphene [From Darvocet-N] Adverse Reaction (Verified 06/25/23 17:06) Upset Stomach spironolactone Adverse Reaction (Verified 06/25/23 17:06) hyperkalemia Yfqkeou-Oad-Npy Reductase Inhibitor Adverse Reaction (Verified 06/25/23 17:06) unknown tramadol Adverse Reaction (Verified 06/25/23 17:06) Other Sleep Disorder Evaluation Hx of Sleep Apnea: Yes Do you snore loudly (louder than talking or can be heard through closed doors)?: No Do you often feel tired/ fatigued/ sleepy during daytime?: No Has anyone observed you stop breathing during sleep?: No History of Hypertension (for STOP score): Yes STOP Results: Negative Advanced Directives Advanced Directives Power of Oleomargarine Maker: No Living Will: No Advance Directives Information Provided: No Advance Directives on File: No DNR Order?:: No Past Medical History Covid-19 Screening Physicial Symptoms Other Clinical Concerns Exposure Risk Pertinent Comorbidities 65 years or older:: Yes Has a serious heart condition:: Yes Diabetic:: Yes Past Medical Illness Medical History Acute kidney failure Alcohol use Ambulates with cane Anemia Anxiety and depression Arthritis Atherosclerosis of coronary artery 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 Atherosclerotic heart disease of [place] coronary artery without angina pectoris Back pain Blackout Cardiology follow-up encounter Chest pain Concussion COVID CPAP (continuous positive airway pressure) dependence Diabetes Difficulty chewing Difficulty swallowing Epigastric pain Essential hypertension Former smoker Gastric reflux GERD (gastroesophageal reflux disease) Headache Hiatal hernia High cholesterol History of diverticulitis History of echocardiogram History of heart attack History of irregular heartbeat History of stress test Hyperhomocystinemia Hyperlipidemia Imbalance Injury of back Injury of head and neck Iron deficiency anemia Lymphedema Migraine headache Narcolepsy Obesity Obstructive sleep apnea Peripheral neuropathy Post-menopausal Proliferative diabetic retinopathy Restless legs Restless legs syndrome (RLS) Rheumatoid arthritis Shortness of breath on exertion Sleep apnea Type 2 diabetes mellitus Wears glasses Past Surgical History Surgical History H/O coronary artery bypass surgery (10/2001) History of cataract surgery History of cholecystectomy History of colonoscopy with polypectomy History of coronary artery stent placement (04/30/23) History of hysterectomy History of left heart catheterization History of tonsillectomy Family History Summary Family History Mother Heart disease Father Heart disease Diabetes Social History Smoking History Smoking Status: Former smoker Years Smokin (less than a pack a day. Stopper 07/07/97) Alcohol Use Alcohol Usage: Yes (glass of wine a day) Substance Abuse Hx Substance Use: No Occupation Occupation (List type of work in comments):: Employed Hours worked per day:: 5 Hobbies, Recreation, Social Activities Hobbies: Other (painting, great grandkids) Recreational Activities: I am able to engage in all my recreational activities Social Environment Status Marital Status: Current Living Arrangements Living Environment:: Alone (lives with boyfriend) Children How many children do you have?: 2 Do any of your children live nearby?: Yes Safety Do you feel safe in your surroundings?: Yes Assistance Do you need any assistance at home?: no Review of Systems Review of Systems Hints Review of Present Symptoms: Reports Shortness of Breath at Rest, Shortness of Breath with Exertion, Angina, Dizziness/Lightheadedness and Fatigue; Denies PVD, Operative Discomfort, Wound Healing, Heart Arrhythmia/Irregularities, Appetite - Normal, Appetite - Special Diet, Sleep - Normal or Sexual Changes Pain Is Patient Pain Free?: No Pain Location: back and lower extremity Pain Level: 09/24 Risk Factor Assessment Chief Complaint Chief Complaint: [place]-NonSTEMI<12months Vital Signs Pulse Ox: 100 Blood Pressure: 122/73 Pulse Pulse Rate: 56 Hypertension How long have you been treated?: 2 months Blood Pressure Sitting - Right Arm: 122/73 Stress Stress: Home/Family Diabetes Diabetic History: Type II Nutrition Referral for Diabetes: No Obesity Height: 5 ft 6 in Weight:: 197 lb Weight in Pounds: 197.0 lbs Body Mass Index (BMI): 31.8 Nutritional Referral for Obesity: No Physical Inactivity Physical Inactivity: Recreational activity Risk Stratification Risk Guidelines: Moderate Risk: Risk Factor for Smoking and Risk Factor for Sedentary Lifestyle and Highest Risk: Risk Factor for Dyslipidemia, Risk Factor for Diabetes, Risk Factor for Obesity, Risk Factor for Hypertension and Risk Factor for Depression For Smoking Smoking Risk Guidelines For Dyslipidemia Dyslipidemia Risk Guidelines For Diabetes Mellitus Diabetes Risk Guidelines For Obesity/Overweight Obesity/Overweight Risk Guidelines For Hypertension Hypertension Risk Guidelines For Sedentary Lifestyle Sedentary Lifestyle Risk Guidelines For Depression Depression Risk Guidelines Family History Family History Mother Heart disease Father Heart disease Diabetes Motivation Motivation to Participate On a scale of 1 to 10, how prepared are you to commit to attending program?: 7 What do you see as barriers to successfully being able to complete the program?: self What do you see as the benefits of succesfully completing the program? In other words, what do you hope to get out of participating in the program?: feel better, no more NJ's, DM under control Do you have a spouse or signficant other, family or friends who will help support you to complete the program?: yes
[2023-07-03 10:08] VITALS: BP 122/73; PULSE 56; O2SAT 100
--- NOTE | 2023-07-03 10:08 | CR.ITP_ITS ---
Diagnosis General Information Admitting Diagnosis: ID NonSTEMI <12 months Personal Learning Style:: Audio/Visual Stage of change r/t lifestyle modifications:: Contemplation Gave educational material for:: Treating Heart Disease, How The Heart Works, Wh at it means to have Heart Disease, How Coronary Artery Disease is Diagnosed, Heart Procedures, What Heart Medications Do, Risk Factors & Modifications, Living an Active Life, Nutrition, Emotions & Heart Disease, Stress Management & Relaxation and Sleep Disorders & Heart Disease Education/Goals Cardiac Rehabilitation Goals Personal Goals: Initial Assessment: Improve management of stress and emotions, Improve energy level, Improve muscle strength and endurance, Improve diet and eating habits (eat healthier) and Control risk factors (learn risk factor modification) Scale for measuring improvement of personal goals Diagnosis & Disease Process Outcomes/Goals: Pt IDs own risk factors & lifestyle modifications by Session 10, Verbalizes symptoms of angina & response by session 3., Pt independently manages and Other Additional Outcomes/Goals: Plan/Interventions: Assist Pt to ID & engage in lifestyle modification to reduce CVD risk, Instruct on individual risk factors, Review symptoms of angina & emergency actions, Review secondary diagnosis & identify educational needs. and Other see comment 30 day Reassessments:: Not Met 30 day Reassessments:: Not Met 30 day Reassessments:: Not Met 30 day Reassessments:: Not Met Final Reassessments:: Not Met Safety Referral to Physical Therapy: No Referral to [facility] Case Management: No Fall Risk Assessed:: Yes Assistive Devices:: Cane Exercise - Initial Assessment Visit Date of Eval: 07/03/23 (initial eval ) Mets: Pre-: >3 METS for 30 minutes by discharge, >5 METS for 30 minutes by discharge, >7 METS for 30 minutes by discharge and Unable to meet goal due to: (see comment below) Physician Prescribed Exercise Modalities: Treadmill, Rower, Airdyne, NuStep, SciFit and Lateral Editor Greeting Card Frequency: 3x/week for 12 weeks [36 sessions] Intensity: 60-80% of age predicted maximum heart rate reserve Duration: 30 - 45 minutes Current METSs:: 3 Target Heart Rate:: 91-106 Resting Blood Pressure: 122/73 EKG Type: SB with nonspecific T-abnormality Outcomes & Goals Goals:: Verbalizes understanding of THR, RPE & goal METS by session 6, Documents in home exercise log/reports 30 min aerobic 5 day/wk by DC, Demonstrates accurate pulse taking by DC and Other additional outcome/goals: see below Intervention & Plan Exercise Program Goals: Instruct on personal THR & RPE, Instruct on MET level & personal MET goal, Show patient to take own pulse /validate performance until accurate, Instruct on home exercise and Other additional plan/int Physical Activity Home Exercise Physical Activity - Home Exercise: Safe Exercise, Warm-up, Self-monitoring, Cool-Down, Home Exercise > 30 min Daily and Sitting Time <3 hours/daily Outcomes & Goals Outcomes/Goals: Demonstrates correct Warm-up/exercise Cool-Down (S3) if = 2.5 METs, Verbalizes symptoms of exercise intolerance by Session 3 (S3), Demonstrate safe equipment use (S3) & follows exercise prescrition (6) and Other: See below Intervention & Plan Plan/Intervention: Instruct warm-up & cool-down if exercising at > 2 METs, Instruct on symptoms of exercise intolerance & actions to take, Instruct & monitor on saf, Assess intial functional capacity & safety risk and Other See below Nutrition - Initial Assessment Program Goals Nutrition Program Goals Patient has diagnosis of Hyperlipidemia (ICD E78)?: Yes Visit Date of Eval: 07/03/23 (initial eval ) Cholesterol/Lipids (Other Core Measures) Determine presence & major risk factors that modify LDL goal: Cigarette smoking, Hypertension or hypertensive medication, Low HDL cholesterol <40 mg/dL*, Family history of premature CHD in Male < 55 years: female <65 yearsFa and Age men > 45 years; women >/= 55 years Outcomes/Goals: Pt IDs own risk factors & lifestyle modifications by Session 10, Verbalizes symptoms of angina & response by session 3., Pt independently manages and Other Additional Outcomes/Goals: Intervention/Plan: Advocate for lipid panel cholesterol medication if applicable, Instruct on personal lipid levels & lipid goals/NCEP guidelines, Instruct on cholesterol and Other additional plan/int Diabetes (Other Core Measures) Diabetes Type: Diagnosis Type II ICD-10 E11 Non-Insulin Dependent?: Yes Do you monitor your blood sugar at home?: Yes Referral to Diabetic Clinic:: No Outcomes/Goals:: Able to state symptoms of, Able to state, Able to state and Other additional Intervention/Plan:: Instruct on, Refer to, Instruct on and Other Weight Mgt (Other Care) Height: 5 ft 6 in Weight:: 197 lb BMI: 31.8 Diagnosis Overweight/Obesity BMI> 30% ICD-10 E66: Yes Diagnosis High BMI/Morbid Obesity BMI> 35% ICD-10 Z68: No Outcomes/Goals: Pt sets, maintains & shows weight loss goal & trend during rehab and Other additional outcomes/goals Healthy Eating Habits Will attend diet classes:: Yes Outcomes/Goals:: Consume diet rich in vegs,fruits,whole grain/high fiber,fish,lean meat, Limit sat/trans fats,cholesterol & added salts & sugars and Other additional outcome/goals: Intervention/Plan:: Assess current eating habits and Other Additional plan/interventions Education Gave educational materials for:: Signs & symptoms of hypoglycemia, Signs & symp toms of hyperglycemia, Relate diabetes to coronary artery disease and Healthy eating Core - Initial Assessment Visit Date of Eval: 07/03/23 Medication Compliance Preventative Medication(s):: Aspirin, Ticagrelor/P2Y12 inhibitor, Beta alexandra and ARB (Angiotensi Rcap) H/O mental health issues: depression, anxiety, or addiction?: Yes Doesn?t believe in the benefits of treatment?: No Believes medications are unnecessary or harmful?: No Has a concern about medication side effects?: No Expresses concern over the cost of medications?: No Outcomes/Goals: Verbalizes medications,desired effect & common side effects @ DC, Pt self-reports following medication regimen, Keeps card in wallet w/medications listed by DC and Other additional outcome/goals: Interventions/plans: Instruct on medication effects & side effects, Review medication list w/patient every two weeks, Instruct importance of taking meds as ordered & assist problem solving and Other additional Tobacco Use Tobacco Use: Non-smoker How long ago did you quit using tobacco products?: Greater than or equal to 6 months ago Years Smokin Do you use smokeless tobacco?: No Outcomes/Goals: Smoking cessation achieved or maintained by discharge, Identify aids/strategies for achieving smoking cessation by session 6 and Other additional outcome/goals Interventions/plan: Instruct on effects of smoking & provide smoking cessation resource, Assist pt to set quit date & provide encouragement, Assist pt to develop strategies to achieve/maintain quit date, Assist pt w/nicotine re placement & medication for cessation success and Other additional plan/interventions Hypertension Hypertension Diagnosis:: Hypertension ICD-10 I10 Resting Blood Pressure:: 122/73 [place] [employer] Hypertension Guidelines Outcomes/Goals: Able to verbalize/achieve optimal blood pressure <130/80, Incorporates diet changes & exercise for blood pressure control by DC and Other additional outcomes/goals Interventions/plan: Instruct on optimal blood pressure, hypertension & medications, Instruct on effects of sodium, alcohol, stress, exercise &hypertension and Other additional plan/interventions Tobacco Cessation Referral Smoking Cessation Referral:: No Individual Education/Counseling:: No Education Schedule Given:: Yes Psychosocial - Initial Assess VIsit Date of Eval: 07/03/23 (initial eval ) History of previous Mental disease:: Yes History of Emotional Disorders: Anxious and Depression Self-reported stressors: Family Target Goals Target Goals Psychosocial Test Tool Used:: [employer] QOL Cardiac and PHQ-9 Questionnaire phq-9 Severity Outcomes/Goals: See list Psychosocial Outcomes/Goals:: ID's personal stressors & 2 strategies to manage stress by discharge and Other Additional outcome/goals: Intervention/Plan: See List Interventions/Plan:: Assess stressors,coping strategies & signs of derpression on admission, Instruct/assist pt to develop coping & personal stress Mgt strategies, Refer to Behavioral Health if appropriate, Refer to Physician if appropriate, Instruct patient to recognize signs & symptoms of depression, Instruct patient to recog and Other additional plan/intervention Comments:: pt states she is on meds and doing fine. Patient Health Questionnaire PHQ-9 Screening Initial Assessment: 1. Little interest or pleasure in doing things: More than half the days 2. Feeling down, depressed, or hopeless: Several days 3. Trouble falling or staying asleep, or sleeping too much: Nearly every day 4. Feeling tired or having little energy: Nearly every day 5. Poor appetite or overeating: More than half the days 6. Feeling bad about yourself -- or that you are a failure or have let yourself or your family down: Not at all 7. Trouble concentrating on things, such as reading the newspaper or w [employer] television: Not at all 8. Moving or speaking so slowly that other people could have noticed. Or the opposite - being so fidgety or restless that you have been moving around a lot more than usual: Not at all 9. Thoughts that you would be better off , or of hurting yourself in some way: Not at all How difficult have these problems made it for you to do your work, take care of things at home, or get along with other people?: Somewhat difficult Total Score: 11 ABRIL-Q SV Test Statements CAD is a disease of the arteries in the heart: False Examples of risk factors for heart disease: True Angina is chest pain or discomfort: True The benefits of resistance training include: True Eating more meat and dairy products: False Anti-platelet medications such as aspirin are important: True The only effective way to manage stress: True An exercise warm-up slowly increases heart rate: True Prepared, processed foods usually have high sodium: True Depression is common after a heart attack: True The statin medications lower cholesterol: True To control blood pressure, lower the amount of sodium: True If someone gets chest discomfort during walking: False Transfats are partially hydrogenated vegetable oils: True Sleep apnea that is not treated increases the risk: False To control cholesterol, one should become a vegetarian: False Someone knows if he/she is exercising at the right level: True Diabetes cannot be prevented with exercise & health eating: False Stress is a large risk for heart attack: True A diet that can help lower blood pressure is rich in: True Total Score Total Correct Responses: 19 Self-Efficacy 6-Item Scale Initial Assessment: We would like to know how confident you are in doing certain activities. Please select your confidence level for: Fatigue Select Number: 7 Physical Discomfort or Pain Select Number: 7 Emotional Distress Select Number: 5 Other Symptoms or Health Problems Select Number: 5 Different Tasks and Activities Select Number: 5 Medication Select Number: 6 Total Score:: 5 Nutrition Survey Nutrition Survey Instructions Scoring Instructions Nutrition Survey Initial: Have you lost >10 lbs over the past 2 months without trying?: Yes Are you following a special diet at home for diabetes, low fat, or low salt?: Yes Are you interested in meeting with a dietitian for help understanding your diet?: No Do you eat less than 3 meals a day?: Yes Do you eat fatty meats (cormier, sausage, ribs, etc), fried foods, desserts, large amounts of salad dressings, margarine, butter, or cheese most days?: No Do you have food allergies? [Enter types in comment field]: Yes Do you eat in restaurants more than 3 times a week?: No Do you season food with salt, seasoning salt, or garlic salt?: No Do you used canned, boxed, frozen meals, or soups, seasoning packets?: Yes Total Score:: 5 Exercise - Final/Discharge Physician Prescribed Exercise Modalities: Treadmill, Rower, Airdyne, NuStep, SciFit and Lateral Editor Greeting Card Frequency: 3x/week for 12 weeks [36 sessions] Intensity: 60-80% of age predicted maximum heart rate reserve Current METSs:: 3 Target Heart Rate:: 91-106 Nutrition - 30-Day Assessment Weight Mgt (Other Care) Height: 5 ft 6 in Weight:: 197 lb BMI: 31.8 Nutrition - 60-Day Assessment Weight Mgt (Other Care) Height: 5 ft 6 in Weight:: 197 lb BMI: 31.8 Core - 30-Day Assessment Tobacco Use Years Smokin Core - Final Assessment Hypertension Resting Blood Pressure:: 122/73 [place] [employer] Hypertension Guidelines Core - 60-Day Assessment Hypertension Resting Blood Pressure:: 122/73 [place] [employer] Hypertension Guidelines Psychosocial - 30-Day Assess Target Goals Target Goals Psychosocial - 60-Day Assess Target Goals Target Goals Psychosocial - 90-Day Assess Target Goals Target Goals Psychosocial - Final Assessmen Target Goals Target Goals Nutrition - 90-Day Assessment Weight Mgt (Other Care) Height: 5 ft 6 in Weight:: 197 lb BMI: 31.8 Nutrition - Final Assessment Program Goals Patient has diagnosis of Hyperlipidemia (ICD E78)?: Yes Weight Mgt (Other Care) Height: 5 ft 6 in Weight:: 197 lb BMI: 31.8
[2023-07-03 10:16] VITALS: BP 122/73
[2023-07-03 10:28] VITALS: BP 122/73; BMI 31.8
[2023-07-03 10:51] VITALS: BMI 31.8
[2023-07-03 10:58] VITALS: BP 122/73
== END | disposition home or self-care (01) ==
LOC: CR 09:50
PROVIDERS: PCP Family Medicine; Referring Provider Internal Medicine Cardiovascular Disease; Visit Provider Internal Medicine Cardiovascular Disease
DX: I25.2 Old myocardial infarction (principal); I20.9 Angina pectoris, unspecified; E11.9 Type 2 diabetes mellitus without complications; I5A Non-ischemic myocardial injury (non-traumatic); Z95.5 Presence of coronary angioplasty implant and graft; I10 Essential (primary) hypertension; G47.30 Sleep apnea, unspecified; Z87.891 Personal history of nicotine dependence; E78.00 Pure hypercholesterolemia, unspecified; Z90.49 Acquired absence of other specified parts of digestive tract; Z90.710 Acquired absence of both cervix and uterus; R06.02 Shortness of breath; R42 Dizziness and giddiness; R53.83 Other fatigue

== ENCOUNTER 2023-07-17 13:00 | Outpatient (RCR) | payer MEDICARE, SELFPAY ==
[2023-07-03 10:51] VITALS: BMI 31.8
== END 2023-07-17 23:59 ==
LOC: CR 13:00
PROVIDERS: PCP Family Medicine; Referring Provider Internal Medicine Cardiovascular Disease; Visit Provider Internal Medicine Cardiovascular Disease
DX: I21.4 Non-ST elevation (NSTEMI) myocardial infarction (principal); R53.83 Other fatigue; R06.00 Dyspnea, unspecified; R07.9 Chest pain, unspecified; I25.810 Atherosclerosis of coronary artery bypass graft(s) without angina pectoris
CPT/HCPCS: 93798

== ENCOUNTER → 2023-07-22 | Outpatient (CLI) | payer MEDICARE, SELFPAY ==
[2023-07-03 10:51] VITALS: BMI 31.8
[2023-07-22 12:40] LABS: Absolute Lymphocyte Count 1.93 X10^3/uL (0.83-4.51); Absolute Neutrophil Count 5.5 X10^3/uL (2.0-7.7); Basophil# 0.02 X10^3/uL; Basophil% 0.2 % (0-1); Eosinophil# 0.12 X10^3/uL; Eosinophils% 1.5 % (0-5); Hematocrit 34.8 % (37-47); Hemoglobin 10.8 g/dL (12.0-15.0); Lymphocyte # 1.93 X10^3/ul (0.83-4.51); Lymphocyte % 23.5 % (19-41); Mean Corpuscular Hgb 28.6 pg (27.0-32.0); Mean Corpuscular Volume 92.3 fL (81-99); Mean Platelet Vol. 11.5 fl (6.2-12.0); Monocyte# 0.63 X10^3/uL; Monocyte% 7.7 % (0-10); NRBC Flagged by Analyzer 0 % (0-5); Neutrophil # 5.49 X10^3/uL (2.7-7.7); Neutrophil % 66.6 % (47-70); Platelet Count 299 K/mm3 (150-450); RBC Distribution Width CV 14.1 % (11.6-14.6); RBC Distribution Width SD 47.8 fl (35.1-43.9); Red Blood Count 3.77 M/mm3 (4.2-5.4); White Blood Count 8.2 K/mm3 (4.4-11.0)
[2023-07-22 13:08] LABS: Anion Gap 5 (5-15); BUN 25 mg/dL (7-18); BUN/Creat Ratio 14.9 RATIO (10-20); Calcium,Total 9.3 mg/dL (8.5-10.1); Chloride 99 mmol/L (98-107); Creatinine, Serum 1.68 mg/dL (0.55-1.02); EST Glomerular Filtration Rate 32 mL/min (>60); Est Glom Filt Rate - Afr Amer 39 mL/min (>60); Glucose 145 mg/dL (74-106); Potassium 4.2 mmol/L (3.5-5.1); Sodium Level 134 mmol/L (136-145)
== END | disposition home or self-care (01) ==
LOC: LAB 11:56
PROVIDERS: PCP Family Medicine; Referring Provider Nurse Practitioner Gerontology; Visit Provider Nurse Practitioner Gerontology
DX: R60.9 Edema, unspecified (principal); R06.00 Dyspnea, unspecified; R42 Dizziness and giddiness
CPT/HCPCS: 36415; 80048; 83880; 85025

== ENCOUNTER → 2023-08-08 | Outpatient (CLI) | payer MEDICARE, SELFPAY ==
[2023-07-03 10:51] VITALS: BMI 31.8
[2023-08-02 08:49] VITALS: BMI 32.5
== END | disposition home or self-care (01) ==
LOC: PSN 13:11
PROVIDERS: PCP Family Medicine; Referring Provider Nurse Practitioner Gerontology; Visit Provider Nurse Practitioner Gerontology
DX: R00.1 Bradycardia, unspecified (principal)
CPT/HCPCS: 93225; 93226

== ENCOUNTER 2023-08-14 13:00 | Outpatient (RCR) | payer MEDICARE, SELFPAY ==
[2023-07-03 10:51] VITALS: BMI 31.8
--- NOTE | 2023-08-02 08:38 | CR.ITP_ITS ---
Nutrition - Initial Assessment Weight Mgt (Other Care) Height: 5 ft 6 in Weight:: 201 lb 8 oz BMI: 32.5 Psychosocial - Initial Assess Target Goals Target Goals Patient Health Questionnaire PHQ-9 Screening 30-Day Re-eval Assessment: 1. Little interest or pleasure in doing things: More than half the days 2. Feeling down, depressed, or hopeless: Several days 3. Trouble falling or staying asleep, or sleeping too much: Nearly every day 4. Feeling tired or having little energy: Nearly every day 5. Poor appetite or overeating: More than half the days 6. Feeling bad about yourself -- or that you are a failure or have let yourself or your family down: Not at all 7. Trouble concentrating on things, such as reading the newspaper or watching television: Not at all 8. Moving or speaking so slowly that other people could have noticed. Or the opposite - being so fidgety or restless that you have been moving around a lot more than usual: Not at all 9. Thoughts that you would be better off , or of hurting yourself in some way: Not at all How difficult have these problems made it for you to do your work, take care of things at home, or get along with other people?: Somewhat difficult Total Score: 11 Self-Efficacy 6-Item Scale 30-Day Re-eval Assessment: We would like to know how confident you are in doing certain activities. Please select your confidence level for: Fatigue Select Number: 7 Physical Discomfort or Pain Select Number: 7 Emotional Distress Select Number: 5 Other Symptoms or Health Problems Select Number: 5 Different Tasks and Activities Select Number: 5 Medication Select Number: 6 Total Score:: 5 Nutrition Survey Nutrition Survey Instructions Scoring Instructions Exercise - 30-day Assessment Visit Date of Eval: 08/02/23 Session #:: 11 Physician Prescribed Exercise Modalities: NuStep Frequency: 3x/week for 12 weeks [36 sessions] Intensity: 60-80% of age predicted maximum heart rate reserve Duration: 30 - 45 minutes Current METSs:: 3 Target Heart Rate:: 91-106 Current RPE:: 11-13 Maximum Excercise HR:: 58 Resting Blood Pressure: 122/64 Maximum Exercise Blood Pressure: 122/64 EKG Type: SB with rare pac Outcomes & Goals Goals:: Verbalizes understanding of THR, RPE & goal METS by session 6, Documents in home exercise log/reports 30 min aerobic 5 day/wk by DC, Demonstrates accurate pulse taking by DC and Other additional outcome/goals: see below Intervention & Plan Exercise Program Goals: Instruct on personal THR & RPE, Instruct on MET level & personal MET goal, Show patient to take own pulse /validate performance until accurate, Instruct on home exercise and Other additional plan/int 30-day Reassessments 30 day Reassessments:: Progressing Reassessment Notes & Comments:: RPE explained Physical Activity Home Exercise Physical Activity - Home Exercise: Safe Exercise, Warm-up, Self-monitoring, Cool-Down, Home Exercise > 30 min Daily and Sitting Time <3 hours/daily Outcomes & Goals Outcomes/Goals: Demonstrates correct Warm-up/exercise Cool-Down (S3) if = 2.5 METs, Verbalizes symptoms of exercise intolerance by Session 3 (S3), Demonstrate safe equipment use (S3) & follows exercise prescrition (6) and Other: See below Intervention & Plan Plan/Intervention: Instruct warm-up & cool-down if exercising at > 2 METs, Instruct on symptoms of exercise intolerance & actions to take, Instruct & monitor on saf, Assess intial functional capacity & safety risk and Other See below 30-day Reassessments 30 day Reassessments:: Progressing Reassessment Notes & Comments:: warm up encouraged Nutrition - 30-Day Assessment Program Goals Nutrition Program Goals Patient has diagnosis of Hyperlipidemia (ICD E78)?: Yes Visit Date of Eval: 08/02/23 Session #:: 11 Cholesterol/Lipids (Other Core Measures) Determine presence & major risk factors that modify LDL goal: Cigarette smoking, Hypertension or hypertensive medication, Low HDL cholesterol <40 mg/dL*, Family history of premature CHD in Male < 55 years: female <65 yearsFa and Age men > 45 years; women >/= 55 years Outcomes/Goals: Pt IDs own risk factors & lifestyle modifications by Session 10, Verbalizes symptoms of angina & response by session 3., Pt independently manages and Other Additional Outcomes/Goals: Intervention/Plan: Advocate for lipid panel cholesterol medication if applicable, Instruct on personal lipid levels & lipid goals/NCEP guidelines, Instruct on cholesterol and Other additional plan/int 30-day Reassessments:: Progressing Reassessment Notes & Comments:: pt to attend nutrition class Diabetes (Other Core Measures) Diabetes Type: Diagnosis Type II ICD-10 E11 Do you monitor your blood sugar at home?: Yes Referral to Diabetic Clinic:: No Outcomes/Goals:: Able to state symptoms of, Able to state, Able to state and Other additional Intervention/Plan:: Instruct on, Refer to, Instruct on and Other 30-day Reassessments:: Met Reassessment Notes & Comments:: pt to attend nutrition class Weight Mgt (Other Care) Height: 5 ft 6 in Weight:: 201 lb 8 oz BMI: 32.5 Diagnosis Overweight/Obesity BMI> 30% ICD-10 E66: Yes Diagnosis High BMI/Morbid Obesity BMI> 35% ICD-10 Z68: No Outcomes/Goals: Pt sets, maintains & shows weight loss goal & trend during rehab and Other additional outcomes/goals Intervention/Plan: Instruct on ideal BMI & set weight loss goal w/patient, Assist pt to ID & incorporate diet changes for weight loss by S9, Refer to Structured Weight Loss program as appropriate, Encourage goal of using 250- 300dcal per session for weight loss and Other additional plan/interventions 30 day Reassessments:: Progressing Reassessment Notes & Comments:: pt to attend nutrition class Healthy Eating Habits Will attend diet classes:: Yes Outcomes/Goals:: Consume diet rich in vegs,fruits,whole grain/high fiber,fish,lean meat, Limit sat/trans fats,cholesterol & added salts & sugars and Other additional outcome/goals: Intervention/Plan:: Assess current eating habits and Other Additional plan/interventions 30-day Reassessments:: Progressing Reassessment Notes & Comments:: pt to attend nutrition class Education Gave educational materials for:: Signs & symptoms of hypoglycemia, Signs & symptoms of hyperglycemia, Relate diabetes to coronary artery disease and Healthy eating Nutrition - 60-Day Assessment Weight Mgt (Other Care) Height: 5 ft 6 in Weight:: 201 lb 8 oz BMI: 32.5 Core - 30-Day Assessment Medication Compliance Preventative Medication(s):: Aspirin, Ticagrelor/P2Y12 inhibitor and Beta alexandra H/O mental health issues: depression, anxiety, or addiction?: Yes Doesn?t believe in the benefits of treatment?: No Believes medications are unnecessary or harmful?: No Has a concern about medication side effects?: No Expresses concern over the cost of medications?: No Outcomes/Goals: Verbalizes medications,desired effect & common side effects @ DC, Pt self-reports following medication regimen, Keeps card in wallet w/medications listed by DC and Other additional outcome/goals: Interventions/plans: Instruct on medication effects & side effects, Review medication list w/patient every two weeks, Instruct importance of taking meds as ordered & assist problem solving and Other additional 30-day Reassessments:: Progressing Reassessment Notes & Comments:: metoprolol decreased to 12.5 mg daily 07/26/23 Tobacco Use Tobacco Use: Non-smoker Hypertension Hypertension Diagnosis:: Hypertension ICD-10 I10 Resting Blood Pressure:: 122/64 [place] [employer] Hypertension Guidelines Peak Exercise Blood Pressure:: 122/64 Outcomes/Goals: Able to verbalize/achieve optimal blood pressure <130/80, Incorporates diet changes & exercise for blood pressure control by DC and Other additional outcomes/goals Interventions/plan: Instruct on optimal blood pressure, hypertension & medications, Instruct on effects of sodium, alcohol, stress, exercise &hypertension and Other additional plan/interventions 30 day Reassessments:: Progressing Reassessment Notes & Comments:: pt encouraged to take her meds Tobacco Cessation Referral Smoking Cessation Referral:: No Individual Education/Counseling:: No Education Schedule Given:: Yes Psychosocial - 30-Day Assess VIsit Date of Eval: 08/02/23 Session #:: 11 History of previous Mental disease:: Yes History of Emotional Disorders: Anxious and Depression Target Goals Target Goals Outcomes/Goals: See list Psychosocial Outcomes/Goals:: ID's personal stressors & 2 strategies to manage stress by discharge and Other Additional outcome/goals: Intervention/Plan: See List Interventions/Plan:: Assess stressors,coping strategies & signs of derpression on admission, Instruct/assist pt to develop coping & personal stress Mgt strategies, Refer to Behavioral Health if appropriate, Refer to Physician if appropriate, Instruct patient to recognize signs & symptoms of depression, Instruct patient to recog and Other additional plan/intervention 30-day Reassessments: 30 day Reassessments:: Progressing Reassessment Notes & Comments:: pt states she is doing fine Psychosocial - 60-Day Assess Target Goals Target Goals Outcomes/Goals: See list Psychosocial Outcomes/Goals:: ID's personal stressors & 2 strategies to manage stress by discharge and Other Additional outcome/goals: Psychosocial - 90-Day Assess Target Goals Target Goals Psychosocial - Final Assessmen Target Goals Target Goals Nutrition - 90-Day Assessment Weight Mgt (Other Care) Height: 5 ft 6 in Weight:: 201 lb 8 oz BMI: 32.5 Nutrition - Final Assessment Weight Mgt (Other Care) Height: 5 ft 6 in Weight:: 201 lb 8 oz BMI: 32.5
[2023-08-02 08:49] VITALS: BP 122/64; BMI 32.5
== END 2023-08-15 23:59 ==
LOC: CR 13:00
PROVIDERS: PCP Family Medicine; Referring Provider Internal Medicine Cardiovascular Disease; Visit Provider Internal Medicine Cardiovascular Disease
DX: I21.4 Non-ST elevation (NSTEMI) myocardial infarction (principal); R53.83 Other fatigue; R06.00 Dyspnea, unspecified; R07.9 Chest pain, unspecified; I25.810 Atherosclerosis of coronary artery bypass graft(s) without angina pectoris
CPT/HCPCS: 93798

== ENCOUNTER 2023-09-13 13:00 | Outpatient (RCR) | payer MEDICARE, SELFPAY ==
[2023-08-02 08:49] VITALS: BMI 32.5
[2023-08-16 00:30] VITALS: BP 122/64
--- NOTE | 2023-08-30 08:05 | PCM.CR.ITP ---
Nutrition - Initial Assessment Weight Mgt (Other Care) Height: 5 ft 6 in Weight:: 202 lb BMI: 32.5 Psychosocial - Initial Assess Target Goals Target Goals Patient Health Questionnaire PHQ-9 Screening 60-Day Re-eval Assessment: 1. Little interest or pleasure in doing things: More than half the days 2. Feeling down, depressed, or hopeless: Several days 3. Trouble falling or staying asleep, or sleeping too much: Nearly every day 4. Feeling tired or having little energy: Nearly every day 5. Poor appetite or overeating: More than half the days 6. Feeling bad about yourself -- or that you are a failure or have let yourself or your family down: Not at all 7. Trouble concentrating on things, such as reading the newspaper or watching television: Not at all 8. Moving or speaking so slowly that other people could have noticed. Or the opposite - being so fidgety or restless that you have been moving around a lot more than usual: Not at all 9. Thoughts that you would be better off , or of hurting yourself in some way: Not at all How difficult have these problems made it for you to do your work, take care of things at home, or get along with other people?: Somewhat difficult Total Score: 11 Self-Efficacy 6-Item Scale 60-Day Re-eval Assessment: We would like to know how confident you are in doing certain activities. Please select your confidence level for: Fatigue Select Number: 7 Physical Discomfort or Pain Select Number: 7 Emotional Distress Select Number: 5 Other Symptoms or Health Problems Select Number: 5 Different Tasks and Activities Select Number: 5 Medication Select Number: 6 Total Score:: 5 Nutrition Survey Nutrition Survey Instructions Scoring Instructions Exercise - 60-day Assessment Visit Date of Eval: 08/30/23 Session #:: 21 Physician Prescribed Exercise Modalities: Rower, Airdyne and NuStep Frequency: 3x/week for 12 weeks [36 sessions] Intensity: 60-80% of age predicted maximum heart rate reserve Duration: 30 - 45 minutes Current METSs:: 3 Target Heart Rate:: 91-106 Current RPE:: 11 Maximum Excercise HR:: 66 Resting Blood Pressure: 128/54 Maximum Exercise Blood Pressure: 148/60 EKG Type: SB to NSR with rare pac Outcomes & Goals Goals:: Verbalizes understanding of THR, RPE & goal METS by session 6, Documents in home exercise log/reports 30 min aerobic 5 day/wk by DC, Demonstrates accurate pulse taking by DC and Other additional outcome/goals: see below Intervention & Plan Exercise Program Goals: Instruct on personal THR & RPE, Instruct on MET level & personal MET goal, Show patient to take own pulse /validate performance until accurate, Instruct on home exercise and Other additional plan/int 30-day Reassessments 30 day Reassessments:: Progressing Reassessment Notes & Comments:: RPE explained Physical Activity Home Exercise Physical Activity - Home Exercise: Safe Exercise, Warm-up, Self-monitoring, Cool-Down, Home Exercise > 30 min Daily and Sitting Time <3 hours/daily Outcomes & Goals Outcomes/Goals: Demonstrates correct Warm-up/exercise Cool-Down (S3) if = 2.5 METs, Verbalizes symptoms of exercise intolerance by Session 3 (S3), Demonstrate safe equipment use (S3) & follows exercise prescrition (6) and Other: See below Intervention & Plan Plan/Intervention: Instruct warm-up & cool-down if exercising at > 2 METs, Instruct on symptoms of exercise intolerance & actions to take, Instruct & monitor on saf, Assess intial functional capacity & safety risk and Other See below 30-day Reassessments 30 day Reassessments:: Progressing Reassessment Notes & Comments:: cool down encouraged Nutrition - 30-Day Assessment Weight Mgt (Other Care) Height: 5 ft 6 in Weight:: 202 lb BMI: 32.5 Nutrition - 60-Day Assessment Program Goals Nutrition Program Goals Patient has diagnosis of Hyperlipidemia (ICD E78)?: Yes Visit Date of Eval: 08/30/23 Session #:: 21 Cholesterol/Lipids (Other Core Measures) Determine presence & major risk factors that modify LDL goal: Cigarette smoking, Hypertension or hypertensive medication, Low HDL cholesterol <40 mg/dL*, Family history of premature CHD in Male < 55 years: female <65 yearsFa and Age men > 45 years; women >/= 55 years Outcomes/Goals: Pt IDs own risk factors & lifestyle modifications by Session 10, Verbalizes symptoms of angina & response by session 3., Pt independently manages and Other Additional Outcomes/Goals: Intervention/Plan: Advocate for lipid panel cholesterol medication if applicable, Instruct on personal lipid levels & lipid goals/NCEP guidelines, Instruct on cholesterol and Other additional plan/int 30-day Reassessments:: Progressing Reassessment Notes & Comments:: pt to attend nutrition class Diabetes (Other Core Measures) Diabetes Type: Diagnosis Type II ICD-10 E11 Do you monitor your blood sugar at home?: Yes Referral to Diabetic Clinic:: No Outcomes/Goals:: Able to state symptoms of, Able to state, Able to state and Other additional Intervention/Plan:: Instruct on, Refer to, Instruct on and Other 30-day Reassessments:: Met Weight Mgt (Other Care) Height: 5 ft 6 in Weight:: 202 lb BMI: 32.5 Diagnosis Overweight/Obesity BMI> 30% ICD-10 E66: Yes Diagnosis High BMI/Morbid Obesity BMI> 35% ICD-10 Z68: No Outcomes/Goals: Pt sets, maintains & shows weight loss goal & trend during rehab and Other additional outcomes/goals Intervention/Plan: Instruct on ideal BMI & set weight loss goal w/patient, Assist pt to ID & incorporate diet changes for weight loss by S9, Refer to Structured Weight Loss program as appropriate, Encourage goal of using 250-300dcal per session for weight loss and Other additional plan/interventions 30 day Reassessments:: Progressing Reassessment Notes & Comments:: pt to attend nutrition class Healthy Eating Habits Will attend diet classes:: Yes Outcomes/Goals:: Consume diet rich in vegs,fruits,whole grain/high fiber,fish,lean meat, Limit sat/trans fats,cholesterol & added salts & sugars and Other additional outcome/goals: Intervention/Plan:: Assess current eating habits and Other Additional plan/interventions 30-day Reassessments:: Progressing Reassessment Notes & Comments:: pt to attend nutrition class Core - 60-Day Assessment Visit Date of Eval: 08/30/23 Session #:: 21 Medication Compliance Preventative Medication(s):: Aspirin, Ticagrelor/P2Y12 inhibitor and Beta alexandra H/O mental health issues: depression, anxiety, or addiction?: Yes Doesn?t believe in the benefits of treatment?: No Believes medications are unnecessary or harmful?: No Has a concern about medication side effects?: No Expresses concern over the cost of medications?: No Outcomes/Goals: Verbalizes medications,desired effect & common side effects @ DC, Pt self-reports following medication regimen, Keeps card in wallet w/medications listed by DC and Other additional outcome/goals: Interventions/plans: Instruct on medication effects & side effects, Review medication list w/patient every two weeks, Instruct importance of taking meds as ordered & assist problem solving and Other additional 30-day Reassessments:: Progressing Reassessment Notes & Comments:: metoprolol decreased to 12.5 mg daily 07/26/23 Tobacco Use Tobacco Use: Non-smoker Hypertension Hypertension Diagnosis:: Hypertension ICD-10 I10 Resting Blood Pressure:: 128/54 [place] [employer] Hypertension Guidelines Peak Exercise Blood Pressure:: 148/60 Outcomes/Goals: Able to verbalize/achieve optimal blood pressure <130/80, Incorporates diet changes & exercise for blood pressure control by DC and Other additional outcomes/goals Interventions/plan: Instruct on optimal blood pressure, hypertension & medications, Instruct on effects of sodium, alcohol, stress, exercise &hypertension and Other additional plan/interventions 30 day Reassessments:: Met Tobacco Cessation Referral Smoking Cessation Referral:: No Individual Education/Counseling:: No Education Schedule Given:: Yes Psychosocial - 30-Day Assess Target Goals Target Goals Outcomes/Goals: See list Psychosocial Outcomes/Goals:: ID's personal stressors & 2 strategies to manage stress by discharge and Other Additional outcome/goals: Psychosocial - 60-Day Assess VIsit Date of Eval: 08/30/23 History of previous Mental disease:: Yes History of Emotional Disorders: Anxious and Depression Target Goals Target Goals Outcomes/Goals: See list Psychosocial Outcomes/Goals:: ID's personal stressors & 2 strategies to manage stress by discharge and Other Additional outcome/goals: Intervention/Plan: See List Interventions/Plan:: Assess stressors,coping strategies & signs of derpression on admission, Instruct/assist pt to develop coping & personal stress Mgt strategies, Refer to Behavioral Health if appropriate, Refer to Physician if appropriate, Instruct patient to recognize signs & symptoms of depression, Instruct patient to recog and Other additional plan/intervention 30-day Reassessments: 30 day Reassessments:: Progressing Reassessment Notes & Comments:: pt states she is doing fine Psychosocial - 90-Day Assess Target Goals Target Goals Psychosocial - Final Assessmen Target Goals Target Goals Nutrition - 90-Day Assessment Weight Mgt (Other Care) Height: 5 ft 6 in Weight:: 202 lb BMI: 32.5 Nutrition - Final Assessment Weight Mgt (Other Care) Height: 5 ft 6 in Weight:: 202 lb BMI: 32.5
[2023-08-30 08:19] VITALS: BP 128/54; BMI 32.5
== END 2023-09-15 23:59 ==
LOC: CR 13:00
PROVIDERS: PCP Family Medicine; Referring Provider Internal Medicine Cardiovascular Disease; Visit Provider Internal Medicine Cardiovascular Disease
DX: I21.4 Non-ST elevation (NSTEMI) myocardial infarction (principal); R53.83 Other fatigue; R06.00 Dyspnea, unspecified; R07.9 Chest pain, unspecified; I25.810 Atherosclerosis of coronary artery bypass graft(s) without angina pectoris
CPT/HCPCS: 93798

== ENCOUNTER 2023-10-14 13:00 | Outpatient (RCR) | payer MEDICARE, SELFPAY ==
[2023-08-30 08:19] VITALS: BMI 32.5
[2023-09-16 00:24] VITALS: BP 122/64; BP 128/54
--- NOTE | 2023-09-30 13:10 | CR.ITP_ITS ---
Nutrition - Initial Assessment Weight Mgt (Other Care) Height: 5 ft 6 in Weight:: 205 lb 8 oz BMI: 33.1 Psychosocial - Initial Assess Target Goals Target Goals Patient Health Questionnaire PHQ-9 Screening 90-Day Re-eval Assessment: 1. Little interest or pleasure in doing things: More than half the days 2. Feeling down, depressed, or hopeless: Several days 3. Trouble falling or staying asleep, or sleeping too much: Nearly every day 4. Feeling tired or having little energy: Nearly every day 5. Poor appetite or overeating: More than half the days 6. Feeling bad about yourself -- or that you are a failure or have let yourself or your family down: Not at all 7. Trouble concentrating on things, such as reading the newspaper or watching television: Not at all 8. Moving or speaking so slowly that other people could have noticed. Or the opposite - being so fidgety or restless that you have been moving around a lot more than usual: Not at all 9. Thoughts that you would be better off , or of hurting yourself in some way: Not at all How difficult have these problems made it for you to do your work, take care of things at home, or get along with other people?: Somewhat difficult Total Score: 11 Self-Efficacy 6-Item Scale 90-Day Re-eval Assessment: We would like to know how confident you are in doing certain activities. Please select your confidence level for: Fatigue Select Number: 7 Physical Discomfort or Pain Select Number: 7 Emotional Distress Select Number: 5 Other Symptoms or Health Problems Select Number: 5 Different Tasks and Activities Select Number: 6 Medication Select Number: 5 Total Score:: 5 Nutrition Survey Nutrition Survey Instructions Scoring Instructions Exercise - 90-day Assessment Visit Date of Eval: 09/30/23 Session #:: 31 Physician Prescribed Exercise Modalities: Rower, Airdyne and NuStep Frequency: 3x/week for 12 weeks [36 sessions] Intensity: 60-80% of age predicted maximum heart rate reserve Duration: 30 - 45 minutes Current METSs:: 4 Target Heart Rate:: 114-128 Current RPE:: 12-13 Maximum Excercise HR:: 81 Resting Blood Pressure: 120/50 Maximum Exercise Blood Pressure: 138/64 EKG Type: SB to NSR with rare pac noted Outcomes & Goals Goals:: Verbalizes understanding of THR, RPE & goal METS by session 6, Documents in home exercise log/reports 30 min aerobic 5 day/wk by DC, Demonstrates accurate pulse taking by DC and Other additional outcome/goals: see below Intervention & Plan Exercise Program Goals: Instruct on personal THR & RPE, Instruct on MET level & personal MET goal, Show patient to take own pulse /validate performance until accurate, Instruct on home exercise and Other additional plan/int 30-day Reassessments 30 day Reassessments:: Met Physical Activity Home Exercise Physical Activity - Home Exercise: Safe Exercise, Warm-up, Self-monitoring, Cool-Down, Home Exercise > 30 min Daily and Sitting Time <3 hours/daily Outcomes & Goals Outcomes/Goals: Demonstrates correct Warm-up/exercise Cool-Down (S3) if = 2.5 METs, Verbalizes symptoms of exercise intolerance by Session 3 (S3), Demonstrate safe equipment use (S3) & follows exercise prescrition (6) and Other: See below Intervention & Plan Plan/Intervention: Instruct warm-up & cool-down if exercising at > 2 METs, Instruct on symptoms of exercise intolerance & actions to take, Instruct & monitor on saf, Assess intial functional capacity & safety risk and Other See below 30-day Reassessments 30 day Reassessments:: Met Nutrition - 30-Day Assessment Weight Mgt (Other Care) Height: 5 ft 6 in Weight:: 205 lb 8 oz BMI: 33.1 Nutrition - 60-Day Assessment Weight Mgt (Other Care) Height: 5 ft 6 in Weight:: 205 lb 8 oz BMI: 33.1 Core - 90 Day Assessment Visit Date of Eval: 09/30/23 Session #:: 31 Medication Compliance Preventative Medication(s):: Ticagrelor/P2Y12 inhibitor and Beta alexandra H/O mental health issues: depression, anxiety, or addiction?: Yes Doesn?t believe in the benefits of treatment?: No Believes medications are unnecessary or harmful?: No Has a concern about medication side effects?: No Expresses concern over the cost of medications?: No Outcomes/Goals: Verbalizes medications,desired effect & common side effects @ DC, Pt self-reports following medication regimen, Keeps card in wallet w/medications listed by DC and Other additional outcome/goals: Interventions/plans: Instruct on medication effects & side effects, Review medication list w/patient every two weeks, Instruct importance of taking meds as ordered & assist problem solving and Other additional 30-day Reassessments:: Met Tobacco Use Tobacco Use: Non-smoker Hypertension Hypertension Diagnosis:: Hypertension ICD-10 I10 Resting Blood Pressure:: 120/50 [place] [employer] Hypertension Guidelines Peak Exercise Blood Pressure:: 138/64 Outcomes/Goals: Able to verbalize/achieve optimal blood pressure <130/80, Incorporates diet changes & exercise for blood pressure control by DC and Other additional outcomes/goals Interventions/plan: Instruct on optimal blood pressure, hypertension & medications, Instruct on effects of sodium, alcohol, stress, exercise &hypertension and Other additional plan/interventions 30 day Reassessments:: Met Tobacco Cessation Referral Smoking Cessation Referral:: No Individual Education/Counseling:: No Education Schedule Given:: Yes Psychosocial - 30-Day Assess Target Goals Target Goals Psychosocial - 60-Day Assess Target Goals Target Goals Psychosocial - 90-Day Assess VIsit Date of Eval: 09/30/23 Session #:: 31 History of previous Mental disease:: Yes History of Emotional Disorders: Anxious and Depression Target Goals Target Goals Outcomes/Goals: See list Psychosocial Outcomes/Goals:: ID's personal stressors & 2 strategies to manage stress by discharge and Other Additional outcome/goals: Intervention/Plan: See List Interventions/Plan:: Assess stressors,coping strategies & signs of derpression on admission, Instruct/assist pt to develop coping & personal stress Mgt strategies, Refer to Behavioral Health if appropriate, Refer to Physician if appropriate, Instruct patient to recognize signs & symptoms of depression, Instruct patient to recog and Other additional plan/intervention 30-day Reassessments: 30 day Reassessments:: Met Reassessment Notes & Comments:: pt states she is doing fine. Psychosocial - Final Assessmen Target Goals Target Goals Nutrition - 90-Day Assessment Program Goals Nutrition Program Goals Patient has diagnosis of Hyperlipidemia (ICD E78)?: Yes Visit Date of Eval: 09/30/23 Session #:: 31 Cholesterol/Lipids (Other Core Measures) Determine presence & major risk factors that modify LDL goal: Cigarette smoking, Hypertension or hypertensive medication, Low HDL cholesterol <40 mg/dL*, Family history of premature CHD in Male < 55 years: female <65 yearsFa and Age men > 45 years; women >/= 55 years Outcomes/Goals: Pt IDs own risk factors & lifestyle modifications by Session 10, Verbalizes symptoms of angina & response by session 3., Pt independently manages and Other Additional Outcomes/Goals: Intervention/Plan: Advocate for lipid panel cholesterol medication if applicable, Instruct on personal lipid levels & lipid goals/NCEP guidelines, Instruct on cholesterol and Other additional plan/int 30-day Reassessments:: Met Diabetes (Other Core Measures) Diabetes Type: Diagnosis Type II ICD-10 E11 Do you monitor your blood sugar at home?: Yes Referral to Diabetic Clinic:: No Outcomes/Goals:: Able to state symptoms of, Able to state, Able to state and Other additional Intervention/Plan:: Instruct on, Refer to, Instruct on and Other 30-day Reassessments:: Met Weight Mgt (Other Care) Height: 5 ft 6 in Weight:: 205 lb 8 oz BMI: 33.1 Diagnosis Overweight/Obesity BMI> 30% ICD-10 E66: Yes Diagnosis High BMI/Morbid Obesity BMI> 35% ICD-10 Z68: No Outcomes/Goals: Pt sets, maintains & shows weight loss goal & trend during rehab and Other additional outcomes/goals Intervention/Plan: Instruct on ideal BMI & set weight loss goal w/patient, Assist pt to ID & incorporate diet changes for weight loss by S9, Refer to Structured Weight Loss program as appropriate, Encourage goal of using 250- 300dcal per session for weight loss and Other additional plan/interventions 30 day Reassessments:: Met Healthy Eating Habits Will attend diet classes:: Yes Outcomes/Goals:: Consume diet rich in vegs,fruits,whole grain/high fiber,fish,lean meat, Limit sat/trans fats,cholesterol & added salts & sugars and Other additional outcome/goals: Intervention/Plan:: Assess current eating habits and Other Additional plan/interventions 30-day Reassessments:: Met Education Gave educational materials for:: Signs & symptoms of hypoglycemia, Signs & symptoms of hyperglycemia, Relate diabetes to coronary artery disease and Healthy eating Nutrition - Final Assessment Weight Mgt (Other Care) Height: 5 ft 6 in Weight:: 205 lb 8 oz BMI: 33.1
[2023-09-30 13:22] VITALS: BP 120/50; BMI 33.1
== END 2023-10-15 23:59 ==
LOC: CR 13:00
PROVIDERS: PCP Family Medicine; Referring Provider Internal Medicine Cardiovascular Disease; Visit Provider Internal Medicine Cardiovascular Disease
DX: I21.4 Non-ST elevation (NSTEMI) myocardial infarction (principal); R53.83 Other fatigue; R06.00 Dyspnea, unspecified; R07.9 Chest pain, unspecified; I25.810 Atherosclerosis of coronary artery bypass graft(s) without angina pectoris
CPT/HCPCS: 93798

== ENCOUNTER 2023-12-08 15:02 | Emergency (ER) | payer MEDICARE, MEDICAID, SELFPAY ==
[2023-09-30 13:22] VITALS: BMI 33.1
[2023-12-08 15:02] VITALS: BP 152/61; PULSE 54; RESP 16; TEMP 36.3; O2SAT 99; BMI 31.9
--- NOTE | 2023-12-08 15:10 | RAD_ITS ---
STUDY: XR Chest 1 View 12/08/2023 3:13 PM REASON FOR EXAM: Female, 68 years old. COUGH COMPARISON: 05.18.23 TECHNIQUE: XR Chest 1 View FINDINGS: There is no demonstrated pleural abnormality. There are multiple median sternotomy wires. Some of the wires is discontinuous. Coronary artery stent graft. Normal heart size. Normal mediastinum. Normal chago. Prominent appearing increased interstitial lung markings. Normal visualized pulmonary arteries. There is atherosclerotic calcification of the aortic arch with tortuosity. There are diffuse degenerative changes of the visualized thoracic spine. There is degenerative osteoarthritis of the bilateral shoulders. There are no acute findings of the upper abdomen. RAD/Chest 1 View (Portable) IMPRESSION: There are no acute findings. Electronically Signed: Sen Griffin MD at 15:28 EDT ,
[2023-12-08] MEDS: predniSONE 20 MG Tablet 60 MG PO (16:36)
--- NOTE | 2023-12-08 16:38 | EX.ED.VIS.UR ---
HPI HPI - URI History of Present Illness Chief Complaint: Cough Detail of Chief Complaint: Cough and wheezing for about a week. Informant: patient and spouse/S.O. 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 Prior CABG in 2001. History of diabetes and on Plavix. She also has a history of asthma. Used to smoke quit 26 years ago. States she has had a cough of yellowish sputum for a week. No fever. Has had some mild nausea and loose stools. Subjective fever today. Has a history of asthma has had some wheezing. She denies any chest pain other than with coughing. No leg swelling. Prior similar symptoms: Yes Recent Illness/Hospitalization: No ROS ROS ED ROS Narrative Cough. Yellow sputum. Wheezing. Review of Systems ROS Unobtainable: Denies due to encephalopathy Constitutional Constitutional ED: Reports fever(s) and subjective; Denies chills Eyes Eyes: Denies blurry vision ENT ENT ED: Denies ear pain or rhinorrhea Cardiovascular Cardiovascular: Denies chest pain or palpitations Respiratory/Chest Respiratory/Chest: Reports cough and sputum Gastrointestinal Gastrointestinal: Reports diarrhea and nausea; Denies abdominal pain or vomiting Genitourinary Genitourinary ED: Denies dysuria or hematuria Musculoskeletal Musculoskeletal: Denies arthralgias Integumentary Denies abscess Neurologic Neurologic: Denies headache(s) Psychiatric Psychiatric: Denies anxiety Endocrine Endocrinology: Denies cold intolerance Hematologic/Lymphatic Hematologic/Lymphatic: Denies easy bleeding or easy bruising Allergic/Immunologic Allergic/Immunologic ED: Denies mouth swelling, tongue swelling or urticaria [facility] Medical History COVID Concussion Hiatal hernia Wears glasses Post-menopausal Alcohol use Ambulates with cane Diabetes Arthritis Rheumatoid arthritis High cholesterol Anemia Acute kidney failure Restless legs Back pain Injury of back Migraine headache Injury of head and neck Blackout Difficulty swallowing Difficulty chewing History of diverticulitis Gastric reflux Former smoker CPAP (continuous positive airway pressure) dependence Sleep apnea Shortness of breath on exertion History of echocardiogram History of stress test Cardiology follow-up encounter History of heart attack History of irregular heartbeat Chest pain Imbalance Headache Epigastric pain Lymphedema Restless legs syndrome (RLS) Anxiety and depression Iron deficiency anemia Proliferative diabetic retinopathy Peripheral neuropathy Obesity Hyperhomocystinemia Narcolepsy GERD (gastroesophageal reflux disease) 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 Essential hypertension Hyperlipidemia Obstructive sleep apnea Type 2 diabetes mellitus Home Medications ?Medication ?Instructions ?Recorded ?Last Taken ?Type ascorbate calcium (vitamin C) 500 500 mg PO DAILY 10/26/21 05/17/23 History mg tablet red yeast rice 600 mg capsule 600 mg PO DAILY 10/26/21 05/17/23 History pregabalin 150 mg capsule 150 mg PO BID 02/27/22 05/17/23 History cholecalciferol (vitamin D3) 25 25 mcg PO DAILY 06/04/22 05/17/23 History mcg (1,000 unit) capsule metformin 500 mg tablet 1,000 mg PO BID 01/21/23 05/17/23 History ezetimibe 10 mg tablet 10 mg PO DAILY 03/11/23 05/17/23 History aspirin 81 mg tablet,delayed 81 mg PO DAILY 05/18/23 05/17/23 History release (Adult Aspirin Regimen) citalopram 40 mg tablet 20 mg PO DAILY 05/18/23 05/17/23 History fenofibrate nanocrystallized 145 145 mg PO DAILY 05/18/23 05/17/23 History mg tablet Handicap Placard #1 ea 06/05/23 Unknown Rx isosorbide mononitrate 30 mg 30 mg PO DAILY #30 tabs 06/05/23 Unknown Rx tablet,extended release 24 hr isosorbide mononitrate 60 mg 60 mg PO DAILY #30 tabs 06/05/23 Unknown Rx tablet,extended release 24 hr clopidogrel 75 mg tablet 75 mg PO .COMPLEX #90 tabs 06/27/23 Unknown Rx albuterol sulfate 90 mcg/actuation 1 puff inhalation Q6H PRN 07/24/23 Unknown Rx aerosol inhaler shortness of breath or wheezing #6.7 grams metoprolol succinate 25 mg 12.5 mg PO DAILY 07/26/23 Unknown History tablet,extended release 24 hr pantoprazole 40 mg tablet,delayed 40 mg PO BID #180 tabs 08/13/23 Unknown Rx release furosemide 40 mg tablet 40 mg PO .COMPLEX 09/03/23 Unknown History losartan 50 mg tablet 25 mg PO DAILY 09/03/23 Unknown History magnesium 250 mg tablet 300 mg PO BID 09/03/23 Unknown History ranolazine 1,000 mg 1,000 mg PO BID #180 tabs 09/03/23 Unknown Rx tablet,extended release,12 hr nitroglycerin 0.4 mg sublingual 0.4 mg sublingual Q5-15M PRN chest 09/16/23 Unknown Rx tablet pain #25 tabs azithromycin 250 mg tablet See Rx Instructions PO .COMPLEX #6 12/08/23 Unknown Rx (Zithromax Z-Juan J) tabs prednisone 20 mg tablet 40 mg (2 x 20 mg) PO DAILY 9 days 12/08/23 Unknown Rx #18 tabs Allergy/AdvReac Type Severity Reaction Status Date / Time aspirin Allergy Rash Verified 12/08/23 15:04 banana Allergy Hives Verified 12/08/23 15:04 canagliflozin (From Invokana) Allergy Anaphylaxis Verified 12/08/23 15:04 kiwi Allergy Hives Verified 12/08/23 15:04 niacin Allergy Rash Verified 12/08/23 15:04 Penicillins (PCN) Allergy Hives Verified 12/08/23 15:04 Sulfa (Sulfonamide Allergy Hives Verified 12/08/23 15:04 Antibiotics) ticagrelor AdvReac Severe Severe Verified 12/08/23 15:04 nausea and vomiting doxycycline AdvReac Nausea/Vom/ Verified 12/08/23 15:04 Diarrhea erythromycin base (From AdvReac Other Verified 12/08/23 15:04 Staticin) ethyl alcohol (From Staticin) AdvReac Other Verified 12/08/23 15:04 gemfibrozil (From Lopid) AdvReac Other Verified 12/08/23 15:04 ibuprofen AdvReac Upset Verified 12/08/23 15:04 Stomach levofloxacin (From Levaquin) AdvReac Upset Verified 12/08/23 15:04 Stomach lisinopril AdvReac cough Verified 12/08/23 15:04 propoxyphene (From AdvReac Upset Verified 12/08/23 15:04 Darvocet-N) Stomach spironolactone AdvReac hyperkalemi Verified 12/08/23 15:04 a Josrqww-NQJ-YoC Reductase AdvReac unknown Verified 12/08/23 15:04 Inhibitor (Fcdfeju-Dyg-Kxr Reductase Inhibitor) tramadol AdvReac Other Verified 12/08/23 15:04 Family History Mother Heart disease Father Heart disease Diabetes Surgical History History of colonoscopy with polypectomy History of cataract surgery History of cholecystectomy History of left heart catheterization History of hysterectomy History of tonsillectomy H/O coronary artery bypass surgery (10/2001) History of coronary artery stent placement (04/30/23) Social History household members: spouse Smoking Status: Former smoker how long ago did patient quit smokin alcohol intake: current alcohol intake frequency: holidays/special occasions only Alcohol type: beer substance use type: does not use what type of physical activity do you participate in: walking frequency: 5-6 times per week EXAM Physical Exam Narrative Exam Narrative: Well-appearing 68-year-old female. Vital signs stable afebrile. Pulse ox 99% on room air no signs hypoxia. H EENT exam unremarkable. TMs normal. Posterior pharynx moist and pink. No erythema or exudate. No trouble swallowing or breathing. No stridor or drooling. Neck nontender no lymphadenopathy. Lungs few scattered expiratory wheezes. Dry hacking cough. Heart regular rhythm rate about 60 with a known 4-6 systolic ejection murmur. Abdomen soft nontender. Moving all 4 extremities. Calves are nontender without edema or cords. Neurologically she is awake alert no focal motor deficits. Const Vital Signs: 12/08/23 15:02 12/08/23 16:33 Temperature 97.4 F L Temperature Source Temporal Pulse Rate 54 L Respiratory Rate 16 Respiratory Effort Normal Non-Labored Respiratory Depth Normal Respiratory Pattern Normal Blood Pressure 152/61 H Blood Pressure Mean 91 Pulse Ox 99 Oxygen Delivery Method Room Air Room Air Positive well nourished and well developed; Negative for cachectic or contractures General Appearance ED: well developed and NAD; Negative for cachectic, contractures, cyanotic, diaphoretic or pallor Nutritional Appearance: Negative for cachectic HEENT Reports moist mucous membranes; Denies dry mucous membranes normocephalic and atraumatic; Negative for scalp tenderness Face and Sinus: Negative for sinus tenderness Mouth ED: No dry mucous membranes Mouth: No dry mucous membranes Teeth and Gingiva: Negative for caries Throat: posterior oropharynx normal Eyes PERRL and EOMs intact bilaterally General Eye ED: Negative for pale conjunctiva or scleral icterus Neck no lymphadenopathy, supple, no meningeal signs and no JVD Resp normal respiratory effort and No clear to auscultation bilaterally Resp Narrative: Dry hacking cough. Auscultation: wheezes Cardio S1 normal heart sound, S2 normal heart sound and no murmurs Rate: regular rate Rhythm: regular rhythm GI non-tender, non-distended and no masses Inspection: Negative for abdominal distention Auscultation: normoactive bowel sounds Palpation: soft; Negative for tender or guarding Back/Spine no CVA tenderness General Back: Negative for CVA tenderness Cervical Spine: Negative for cervical spine tenderness Thoracic Spine / Upper Back: Negative for thoracic spinal tenderness Lumbar Spine / Lower Back: Negative for lumbar spinal tenderness Extremity normal to inspection and full ROM General Extremety ED: Negative for cyanosis or tenderness General Extremity: Negative for cyanosis Neuro oriented x3 and CN's II-XII intact bilaterally Sensorium / Orientation: alert, oriented to person, oriented to place and oriented to time; Negative for orientation impaired, lethargic or stuporous Motor Exam: strength 5/5 throughout Psych mental status grossly normal Appearance: Negative for other Attitude: No agitated Mood & Affect: Negative for depressed, anxious or tearful Skin General Skin Exam: Negative for jaundice or pallor Lesions: no lesions Rashes: no rashes Trauma: Negative for abrasion or laceration MDM MDM MDM Narrative Medical decision making narrative: 68-year-old female history of cardiac disease and asthma. Has had URI symptoms for a week. Chest x-ray portable single view shows no acute abnormality. Treated as viral from bronchitis. We deferred COVID and flu testing. She was given a dose of prednisone here and a DuoNeb aerosol. She has an inhaler at home. She be placed on prednisone 40 mg for the next 9 days. If not improving start antibiotic Zithromax. Follow-up with your doctor if not improving or return if worse. Radiography Chest X-Ray - ED: 1 View, Read by ED Physician, Read by Radiologist, Normal, Heart, Lungs, Mediastinum, Bony Structures, No Acute Disease and Chronic Changes Diagnostic Testing: Clinical Impression(s) from Imaging Studies Chest X-Ray 06/23/24 15:10 IMPRESSION: There are no acute findings. Electronically Signed: Sen Griffin MD at 15:28 EDT , Chest x-ray, portable, single view shows no acute abnormality. Normal cardiac silhouette. Normal lung nunez. Interpreted both by myself and the radiologist. No pneumonia. Discharge Plan Triage Chief Complaint: Cough ED Provider: Tavo Ortiz Dx/Rx/DC Orders Clinical Impression: Acute viral bronchitis, History of MN (myocardial infarction), History of diabetes mellitus, Asthma Instructions: Acute Bronchitis Prescriptions: New prednisone 20 mg tablet 40 mg PO DAILY 9 Days Qty: 18 0RF azithromycin [Zithromax Z-Juan J] 250 mg tablet See Rx Instructions .ROUTE .COMPLEX Qty: 6 0RF Rx Instructions: For 250 mg dose pack: take 500 mg today (day 1), then 250 mg for 4 days (days 2-5) No Action red yeast rice 600 mg capsule 600 mg PO DAILY Rx Instructions: give with meal/snack ascorbate calcium (vitamin C) 500 mg tablet 500 mg PO DAILY pregabalin 150 mg capsule 150 mg PO BID Patient Comments: TAKE 1 CAPSULE BY MOUTH TWICE DAILY FOR 30 DAYS (TAKE ONE CAPSULE AT DINNER AND ONE CAPSULE BEFORE BED) cholecalciferol (vitamin D3) 25 mcg (1,000 unit) capsule 25 mcg PO DAILY losartan 50 mg tablet 25 mg PO DAILY magnesium 250 mg tablet 300 mg PO BID furosemide 40 mg tablet 40 mg PO .COMPLEX Rx Instructions: 40 mg orally once daily X 3 days a week, then keep extra for as needed use for swelling, weight gain or shortness of breath; ranolazine 1,000 mg tablet extended release 12 hr 1,000 mg PO BID Qty: 180 3RF isosorbide mononitrate 60 mg tablet extended release 24 hr 60 mg PO DAILY Qty: 30 6RF isosorbide mononitrate 30 mg tablet extended release 24 hr 30 mg PO DAILY Qty: 30 11RF Rx Instructions: Adding to her 60mg isosorbide to equal 90mg daily (DME) Handicap Placard See Rx Instructions .Route .MEDSUPPLY Qty: 1 0RF Rx Instructions: As directed Expires 06/05/2028 clopidogrel 75 mg tablet 75 mg PO .COMPLEX Qty: 90 3RF Rx Instructions: Take 1 tablet by mouth daily metformin 500 mg tablet 1,000 mg PO BID aspirin [Adult Aspirin Regimen] 81 mg tablet,delayed release (DR/EC) 81 mg PO DAILY fenofibrate nanocrystallized 145 mg tablet 145 mg PO DAILY citalopram 40 mg tablet 20 mg PO DAILY ezetimibe 10 mg tablet 10 mg PO DAILY albuterol sulfate 90 mcg/actuation HFA aerosol inhaler 1 puff INHALATION Q6H PRN (Reason: shortness of breath or wheezing) Qty: 6.7 0RF metoprolol succinate 25 mg tablet extended release 24 hr 12.5 mg PO DAILY pantoprazole 40 mg tablet,delayed release (DR/EC) 40 mg PO BID Qty: 180 3RF nitroglycerin 0.4 mg tablet, sublingual 0.4 mg sublingual Q5-15M PRN (Reason: chest pain) Qty: 25 3RF Rx Instructions: do not exceed 3 doses per episode Primary Care Provider: Redd Carney Referrals: Redd Carney MD [Primary Care Provider] - 3-5 Days if not improving Activity Restrictions/Additional Instructions: Follow-up with your doctor if not improving. Return if feeling a lot worse. Prednisone 40 mg a day starting tomorrow for the next 9 days. If you are feeling better and your wheezing is resolved you can stop it early. Watch your blood sugars because the prednisone will elevate those. Use your inhaler as needed at home. Plenty of fluids and rest. Off work next 2 days. More than likely this is a viral illness. You should not need an antibiotic. If is not improving or if sputum gets darker or you are feeling worse start antibiotic Zithromax. Print Language: Irish Disposition Disposition: Home, Self Care
[2023-12-08] MEDS: Ipratropium/Albuterol Sulfate 3 ML AMPUL.NEB INHALATION (16:40)
[2023-12-08 16:43] VITALS: PULSE 56; RESP 16
== END 2023-12-08 16:49 | disposition home or self-care (01) ==
PROVIDERS: Emergency Provider Emergency Medicine; PCP Family Medicine; Visit Provider Emergency Medicine
DX: J20.9 Acute bronchitis, unspecified (principal); E11.9 Type 2 diabetes mellitus without complications; I25.10 Atherosclerotic heart disease of native coronary artery without angina pectoris; Z95.5 Presence of coronary angioplasty implant and graft; G47.33 Obstructive sleep apnea (adult) (pediatric); Z87.891 Personal history of nicotine dependence; E78.00 Pure hypercholesterolemia, unspecified; Z79.84 Long term (current) use of oral hypoglycemic drugs; Z79.82 Long term (current) use of aspirin; K21.9 Gastro-esophageal reflux disease without esophagitis; Z99.89 Dependence on other enabling machines and devices; F41.8 Other specified anxiety disorders; Z90.49 Acquired absence of other specified parts of digestive tract; Z90.710 Acquired absence of both cervix and uterus; I25.2 Old myocardial infarction; J45.909 Unspecified asthma, uncomplicated; I10 Essential (primary) hypertension
CPT/HCPCS: 71045; 94640; 99283

== ENCOUNTER 2023-12-24 13:50 | Emergency (ER) | payer MEDICARE, MEDICAID, SELFPAY ==
[2023-09-30 13:22] VITALS: BMI 33.1
[2023-12-24 13:50] VITALS: BP 124/66; PULSE 66; RESP 12; TEMP 36.7; O2SAT 99; BMI 33.3
--- NOTE | 2023-12-24 13:53 | EKG12_ITS ---
Test Reason : REPEAT Blood Pressure : / mmHG Vent. Rate : 049 BPM Atrial Rate : 049 BPM P-R Int : 178 ms QRS Dur : 098 ms QT Int : 510 ms P-R-T Axes : 042 026 044 degrees QTc Int : 460 ms Sinus bradycardia Otherwise normal ECG Confirmed by Alfredo Squires ([id number]), digital editor BARRY LOU ([id number]) on 12/25/2023 9:45:49 AM Referred By: Confirmed By:Alfredo Squires
--- NOTE | 2023-12-24 13:55 | EKG12_ITS ---
Test Reason : CHEST PAIN Blood Pressure : / mmHG Vent. Rate : 055 BPM Atrial Rate : 055 BPM P-R Int : 154 ms QRS Dur : 096 ms QT Int : 460 ms P-R-T Axes : 012 023 039 degrees QTc Int : 440 ms Sinus bradycardia Minor Nonspecific T wave abnormality Abnormal ECG Confirmed by Alfredo Squires ([id number]), scientific editor BARRY LOU ([id number]) on 12/25/2023 9:48:37 AM Referred By: PARVIZ Confirmed By:Alfredo Squires
[2023-12-24 14:22] LABS: Absolute Lymphocyte Count 1.88 X10^3/uL (0.83-4.51); Absolute Neutrophil Count 6.7 X10^3/uL (2.0-7.7); Basophil# 0.04 X10^3/uL; Basophil% 0.4 % (0-1); Eosinophil# 0.11 X10^3/uL; Eosinophils% 1.2 % (0-5); Hematocrit 37.7 % (37-47); Hemoglobin 11.9 g/dL (12.0-15.0); Lymphocyte # 1.88 X10^3/ul (0.83-4.51); Lymphocyte % 19.7 % (19-41); Mean Corp Hgb Conc 31.6 g/dL (32-36); Mean Corpuscular Hgb 28.1 pg (27.0-32.0); Mean Corpuscular Volume 88.9 fL (81-99); Mean Platelet Vol. 11.6 fl (6.2-12.0); Monocyte# 0.74 X10^3/uL; Monocyte% 7.7 % (0-10); NRBC Flagged by Analyzer 0 % (0-5); Neutrophil # 6.74 X10^3/uL (2.7-7.7); Neutrophil % 70.5 % (47-70); POSITIVE COUNT YES; Platelet Count 228 K/mm3 (150-450); RBC Distribution Width CV 13.9 % (11.6-14.6); RBC Distribution Width SD 44.8 fl (35.1-43.9); Red Blood Count 4.24 M/mm3 (4.2-5.4); White Blood Count 9.6 K/mm3 (4.4-11.0)
[2023-12-24 14:44] LABS: Anion Gap 6 (5-15); BUN 18 mg/dL (7-18); Calcium,Total 9.1 mg/dL (8.5-10.1); Chloride 103 mmol/L (98-107); Creatinine, Serum 1.06 mg/dL (0.55-1.02); EST Glomerular Filtration Rate 55 mL/min (>60); Est Glom Filt Rate - Afr Amer 66 mL/min (>60); Estimated Creatinine Clearance 57.77 ml/min; Glucose 134 mg/dL (74-106); Potassium 4.3 mmol/L (3.5-5.1); Sodium Level 136 mmol/L (136-145); Troponin-I HS (w/2H Reflex) 9 pg/mL (3.0-54.0)
--- NOTE | 2023-12-24 15:01 | ED.VIS.CHEST ---
HPI History of Present Illness Chief Complaint: Chest Pain Narrative Narrative: 68-year-old female past medical history of coronary artery disease, patient of Dr. Osorio, presents with dizziness, nausea, vomiting, and diarrhea that started at 1130 today. She then started having chest pressure. She states that she has coronary artery disease and had catheterization last April, approximately 8 months ago where she was sent to [facility] and received 3 more stents for a total of 20. She states that she started not feeling well this morning at around 1130, 3-1/2 hours ago. She became nauseated, vomiting, and a little lightheaded. She had an episode of diarrhea as well. While that has improved, she states now she has a headache and has mild left-sided chest pain. [facility] Medical History COVID Concussion Hiatal hernia Wears glasses Post-menopausal Alcohol use Ambulates with cane Diabetes Arthritis Rheumatoid arthritis High cholesterol Anemia Acute kidney failure Restless legs Back pain Injury of back Migraine headache Injury of head and neck Blackout Difficulty swallowing Difficulty chewing History of diverticulitis Gastric reflux Former smoker CPAP (continuous positive airway pressure) dependence Sleep apnea Shortness of breath on exertion History of echocardiogram History of stress test Cardiology follow-up encounter History of heart attack History of irregular heartbeat Chest pain Imbalance Headache Epigastric pain Lymphedema Restless legs syndrome (RLS) Anxiety and depression Iron deficiency anemia Proliferative diabetic retinopathy Peripheral neuropathy Obesity Hyperhomocystinemia Narcolepsy GERD (gastroesophageal reflux disease) Atherosclerotic heart disease of [place] coronary artery without angina pectoris Atherosclerosis of coronary artery 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 Essential hypertension Hyperlipidemia Obstructive sleep apnea Type 2 diabetes mellitus Home Medications ?Medication ?Instructions ?Recorded ?Last Taken ?Type ascorbate calcium (vitamin C) 500 500 mg PO DAILY 10/26/21 05/17/23 History mg tablet red yeast rice 600 mg capsule 600 mg PO DAILY 10/26/21 05/17/23 History pregabalin 150 mg capsule 150 mg PO BID 02/27/22 05/17/23 History cholecalciferol (vitamin D3) 25 25 mcg PO DAILY 06/04/22 05/17/23 History mcg (1,000 unit) capsule metformin 500 mg tablet 1,000 mg PO BID 01/21/23 05/17/23 History ezetimibe 10 mg tablet 10 mg PO DAILY 03/11/23 05/17/23 History aspirin 81 mg tablet,delayed 81 mg PO DAILY 05/18/23 05/17/23 History release (Adult Aspirin Regimen) citalopram 40 mg tablet 20 mg PO DAILY 05/18/23 05/17/23 History Handicap Placard #1 ea 06/05/23 Unknown Rx albuterol sulfate 90 mcg/actuation 1 puff inhalation Q6H PRN 07/24/23 Unknown Rx aerosol inhaler shortness of breath or wheezing #6.7 grams magnesium 250 mg tablet 300 mg PO BID 09/03/23 Unknown History azithromycin 250 mg tablet See Rx Instructions PO .COMPLEX #6 12/08/23 Unknown Rx (Zithromax Z-Juan J) tabs prednisone 20 mg tablet 40 mg (2 x 20 mg) PO DAILY 9 days 12/08/23 Unknown Rx #18 tabs clopidogrel 75 mg tablet 75 mg PO .COMPLEX #90 tabs 12/10/23 Unknown Rx fenofibrate nanocrystallized 145 145 mg PO DAILY #90 tabs 12/10/23 Unknown Rx mg tablet furosemide 40 mg tablet 40 mg PO .COMPLEX #30 tabs 12/10/23 Unknown Rx isosorbide mononitrate 30 mg 30 mg PO DAILY #90 tabs 12/10/23 Unknown Rx tablet,extended release 24 hr isosorbide mononitrate 60 mg 60 mg PO DAILY #90 tabs 12/10/23 Unknown Rx tablet,extended release 24 hr losartan 50 mg tablet 25 mg (1/2 x 50 mg) PO DAILY #45 12/10/23 Unknown Rx tabs metoprolol succinate 25 mg 12.5 mg (1/2 x 25 mg) PO DAILY #45 12/10/23 Unknown Rx tablet,extended release 24 hr tabs nitroglycerin 0.4 mg sublingual 0.4 mg sublingual Q5-15M PRN chest 12/10/23 Unknown Rx tablet pain #25 tabs pantoprazole 40 mg tablet,delayed 40 mg PO BID #180 tabs 12/10/23 Unknown Rx release ranolazine 1,000 mg 1,000 mg PO BID #180 tabs 12/10/23 Unknown Rx tablet,extended release,12 hr Allergy/AdvReac Type Severity Reaction Status Date / Time aspirin Allergy Rash Verified 12/24/23 13:51 banana Allergy Hives Verified 12/24/23 13:51 canagliflozin (From Invokana) Allergy Anaphylaxis Verified 12/24/23 13:51 kiwi Allergy Hives Verified 12/24/23 13:51 niacin Allergy Rash Verified 12/24/23 13:51 Penicillins (PCN) Allergy Hives Verified 12/24/23 13:51 Sulfa (Sulfonamide Allergy Hives Verified 12/24/23 13:51 Antibiotics) ticagrelor AdvReac Severe Severe Verified 12/24/23 13:51 nausea and vomiting doxycycline AdvReac Nausea/Vom/ Verified 12/24/23 13:51 Diarrhea erythromycin base (From AdvReac Other Verified 12/24/23 13:51 Staticin) ethyl alcohol (From Staticin) AdvReac Other Verified 12/24/23 13:51 gemfibrozil (From Lopid) AdvReac Other Verified 12/24/23 13:51 ibuprofen AdvReac Upset Verified 12/24/23 13:51 Stomach levofloxacin (From Levaquin) AdvReac Upset Verified 12/24/23 13:51 Stomach lisinopril AdvReac cough Verified 12/24/23 13:51 propoxyphene (From AdvReac Upset Verified 12/24/23 13:51 Darvocet-N) Stomach spironolactone AdvReac hyperkalemi Verified 12/24/23 13:51 a Ptmifbl-Fir-Gpu Reductase AdvReac unknown Verified 12/24/23 13:51 Inhibitor tramadol AdvReac Other Verified 12/24/23 13:51 Family History Mother Heart disease Father Heart disease Diabetes Surgical History History of colonoscopy with polypectomy History of cataract surgery History of cholecystectomy History of left heart catheterization History of hysterectomy History of tonsillectomy H/O coronary artery bypass surgery (10/2001) History of coronary artery stent placement (04/30/23) Social History household members: spouse Smoking Status: Former smoker how long ago did patient quit smokin alcohol intake: current alcohol intake frequency: holidays/special occasions only Alcohol type: beer substance use type: does not use what type of physical activity do you participate in: walking frequency: 5-6 times per week ROS ROS ED ROS Narrative Constitutional: No fever, no chills. HEENT: No sore throat. No neck pain. No loss of vision. No rhinorrhea. Cardiovascular: Left-sided chest pain. No palpitations. No pedal edema. Respiratory: No cough, no shortness of breath. Abdominal: No abdominal pain. Positive nausea, vomiting, and diarrhea. Genitourinary: No dysuria. No hematuria. Musculoskeletal: No myalgias. No arthralgias. Neurologic: Positive headaches. Positive dizziness, lightheadedness. Skin: No rash. No change in color. Psychiatric: No depression. No anxiety. EXAM Physical Exam Narrative Exam Narrative: Afebrile. Vital signs noted. HEENT: Normocephalic. Atraumatic. PERRL, EOMI. Neck soft and supple. No point tenderness or step off. Cardiovascular: Regular rate and rhythm. No murmurs, rubs, or gallops appreciated. Respiratory: No tachypnea. Lungs clear to auscultation bilaterally. Gastrointestinal: Abdomen soft, nontender, with normoactive bowel sounds. No rebound or guarding. Neurological: Awake. Alert. Nonfocal, nonlateralizing. Skin: No rash. Normal color. No pallor. Musculoskeletal: No pedal edema. Full range of motion extremities. Const Vital Signs: 12/24/23 13:50 12/24/23 15:17 12/24/23 16:55 Temperature 98.1 F Temperature Source Temporal Pulse Rate 66 54 L Respiratory Rate 12 16 Blood Pressure 124/66 H 124/51 H Blood Pressure Mean 85 75 Pulse Ox 99 97 Oxygen Delivery Method Room Air Room Air Room Air MDM MDM MDM Narrative Medical decision making narrative: In the differential diagnosis is acute coronary syndrome versus pneumothorax versus pneumonia. She states that she recently got over bronchitis. Regarding her nausea and vomiting with diarrhea, concern would be for diverticulitis versus gastroenteritis. She has a nontender abdomen so I do not feel that emergent CT imaging is indicated. I have low suspicion for obstruction of the bowel based on her clinical exam. Chest pain protocol was instituted. EKG obtained and interpreted by myself independently as sinus bradycardia at 55 bpm without ectopy or acute ST changes. No STEMI. I reviewed her initial laboratory work and her sodium is normal at 136 with potassium 4.3, chloride of 103, BUN of 18 and creatinine 1.06. Initial high-sensitivity troponin is 9. Glucose is elevated at 134 but she has a normal anion gap of 6 so I doubt diabetic ketoacidosis. I added a chest x-ray and a lipase. Chest x-ray 1 view interpreted by myself independently shows no evidence of pneumonia or pneumothorax. I reviewed the radiology report which confirms my independent interpretation. Additionally, I reviewed her initial troponin, and it is normal at 9 stated previously, with a repeat of 13 for delta less than 20. She did states that she was having left-sided chest pain and neck pain and second EKG interpreted by myself independently demonstrates sinus bradycardia at [address] changes. Her lipase was reviewed and is normal at 52 so I doubt pancreatitis. At this point in time, I was able to discuss the patient with Dr. Squires with cardiology. I did backline him the 2 EKGs and informed him of her negative delta troponin. It was felt that she could be discharged to follow-up with cardiology as an outpatient and with her primary care. There was no need for admission at this time. Patient is agreeable to the plan. Return instructions to the emergency department were reviewed. Disposition is discharged home in stable condition. History & Record Review Discussion w/independent historian: Patient Lab Data Attestation: I reviewed the patient's lab results. Labs: Laboratory Results - last 24 hr 12/24/23 12/24/23 14:05 16:45 WBC 9.6 RBC 4.24 Hgb 11.9 L Hct 37.7 MCV 88.9 MCH 28.1 MCHC 31.6 L RDW Std Deviation 44.8 H RDW Coeff of Nancy 13.9 Plt Count 228 MPV 11.6 Immature Gran % (Auto) 0.500 Neut % (Auto) 70.5 H Lymph % (Auto) 19.7 [place] % (Auto) 7.7 Eos % (Auto) 1.2 Baso % (Auto) 0.4 Absolute Neuts (auto) 6.7 Absolute Lymphs (auto) 1.88 Nucleated RBC % 0 Differential Comment SCANNED Sodium 136 Potassium 4.3 Chloride 103 Carbon Dioxide 27.0 Anion Gap 6 BUN 18 Creatinine 1.06 H Estim Creat Clear Calc 57.77 Est GFR (MDRD) Af Amer 66 Est GFR (MDRD) Non-Af 55 L BUN/Creatinine Ratio 17.0 Glucose 134 H Calcium 9.1 Troponin I High Sens 9 13 Lipase 52 Radiography Diagnostic Testing: Clinical Impression(s) from Imaging Studies Chest X-Ray 12/24/23 16:18 IMPRESSION: Mild cardiomegaly. Electronically Signed: Dominick Briscoe DO at 16:40 EDT Reading Location ID and State: [facility] / [place] Tel [phone], Service support , Management Discussion w/another healthcare provider: [employer] (Dr. Alfredo Squires, cardiology) Discharge Plan Triage Chief Complaint: Chest Pain ED Provider: Onofre Stoll Dx/Rx/DC Orders Clinical Impression: Chest pain, Nausea, vomiting, and diarrhea, Lightheadedness Instructions: ED Chest Pain, Uncertain Cause, ED Vomiting (Adult) Prescriptions: No Action red yeast rice 600 mg capsule 600 mg PO DAILY Rx Instructions: give with meal/snack ascorbate calcium (vitamin C) 500 mg tablet 500 mg PO DAILY pregabalin 150 mg capsule 150 mg PO BID Patient Comments: TAKE 1 CAPSULE BY MOUTH TWICE DAILY FOR 30 DAYS (TAKE ONE CAPSULE AT DINNER AND ONE CAPSULE BEFORE BED) cholecalciferol (vitamin D3) 25 mcg (1,000 unit) capsule 25 mcg PO DAILY magnesium 250 mg tablet 300 mg PO BID (DME) Handicap Placard See Rx Instructions .Route .MEDSUPPLY Qty: 1 0RF Rx Instructions: As directed Expires 06/05/2028 metformin 500 mg tablet 1,000 mg PO BID aspirin [Adult Aspirin Regimen] 81 mg tablet,delayed release (DR/EC) 81 mg PO DAILY citalopram 40 mg tablet 20 mg PO DAILY prednisone 20 mg tablet 40 mg PO DAILY 9 Days Qty: 18 0RF azithromycin [Zithromax Z-Juan J] 250 mg tablet See Rx Instructions .ROUTE .COMPLEX Qty: 6 0RF Rx Instructions: For 250 mg dose pack: take 500 mg today (day 1), then 250 mg for 4 days (days 2-5) ezetimibe 10 mg tablet 10 mg PO DAILY albuterol sulfate 90 mcg/actuation HFA aerosol inhaler 1 puff INHALATION Q6H PRN (Reason: shortness of breath or wheezing) Qty: 6.7 0RF isosorbide mononitrate 60 mg tablet extended release 24 hr 60 mg PO DAILY Qty: 90 3RF fenofibrate nanocrystallized 145 mg tablet 145 mg PO DAILY Qty: 90 3RF metoprolol succinate 25 mg tablet extended release 24 hr 12.5 mg PO DAILY Qty: 45 3RF losartan 50 mg tablet 25 mg PO DAILY Qty: 45 3RF furosemide 40 mg tablet 40 mg PO .COMPLEX Qty: 30 6RF Rx Instructions: 40 mg orally once daily X 3 days a week, then keep extra for as needed use for swelling, weight gain or shortness of breath; ranolazine 1,000 mg tablet extended release 12 hr 1,000 mg PO BID Qty: 180 3RF clopidogrel 75 mg tablet 75 mg PO .COMPLEX Qty: 90 3RF Rx Instructions: Take 1 tablet by mouth daily nitroglycerin 0.4 mg tablet, sublingual 0.4 mg sublingual Q5-15M PRN (Reason: chest pain) Qty: 25 3RF Rx Instructions: do not exceed 3 doses per episode isosorbide mononitrate 30 mg tablet extended release 24 hr 30 mg PO DAILY Qty: 90 3RF Rx Instructions: Adding to her 60mg isosorbide to equal 90mg daily pantoprazole 40 mg tablet,delayed release (DR/EC) 40 mg PO BID Qty: 180 3RF Primary Care Provider: Redd Carney Referrals: Redd Carney MD [Primary Care Provider] - 3-5 Days if not improving Larry Osorio MD [Med Staff - Active Staff] - 3-5 Days if not improving Print Language: Sinhala Disposition Disposition: Home, Self Care
[2023-12-24] MEDS: 0.9% Normal Saline (1000mL) 1,000 ML 999 ML IV (15:11)
[2023-12-24 15:16] LABS: Differential Comment SCANNED; Differential Indicated SCAN CRITERIA MET
[2023-12-24 15:56] LABS: Lipase 52 U/L (13-75)
[2023-12-24 16:16] LABS: Reflex Troponin-HS? (from REC) Y
--- NOTE | 2023-12-24 16:18 | RAD_ITS ---
INDICATION: chest pain EXAMINATION/TECHNIQUE: X-RAY - XR Chest 1 View COMPARISON: December 08, 2023 FINDINGS: LINES/DEVICES: Stable sternotomy wires. LUNGS: No consolidation, edema or effusion. No pneumothorax. MEDIASTINUM AND CARDIOVASCULAR STRUCTURES: Cardiac silhouette is slightly enlarged. Central airways and mediastinal contour are unremarkable. BONES AND SOFT TISSUES: Unremarkable. RAD/Chest 1 View (Portable) IMPRESSION: Mild cardiomegaly. Electronically Signed: Dominick Briscoe DO at 16:40 EDT ,
[2023-12-24 16:55] VITALS: BP 124/51; PULSE 54; RESP 16; O2SAT 97
[2023-12-24 17:14] LABS: Troponin-I HS 13 pg/mL (3.0-54.0)
== END 2023-12-24 18:58 | disposition home or self-care (01) ==
PROVIDERS: Emergency Provider Emergency Medicine; PCP Family Medicine; Visit Provider Emergency Medicine
DX: R07.9 Chest pain, unspecified (principal); E11.9 Type 2 diabetes mellitus without complications; R11.2 Nausea with vomiting, unspecified; I10 Essential (primary) hypertension; R42 Dizziness and giddiness; R19.7 Diarrhea, unspecified; G47.33 Obstructive sleep apnea (adult) (pediatric); I25.10 Atherosclerotic heart disease of native coronary artery without angina pectoris; Z87.891 Personal history of nicotine dependence; E78.00 Pure hypercholesterolemia, unspecified; Z99.89 Dependence on other enabling machines and devices; Z79.84 Long term (current) use of oral hypoglycemic drugs; Z79.899 Other long term (current) drug therapy; F41.8 Other specified anxiety disorders; Z90.49 Acquired absence of other specified parts of digestive tract; Z90.710 Acquired absence of both cervix and uterus; Z95.5 Presence of coronary angioplasty implant and graft
CPT/HCPCS: 71045; 80048; 83690; 84484; 85025; 93005; 96360; 99283; J7030

== ENCOUNTER 2024-04-20 07:38 | Observation (INO) | payer MEDICARE, SELFPAY ==
[2023-09-30 13:22] VITALS: BMI 33.1
[2024-04-20] VITALS (13 sets, daily range): BP systolic 124–184; BP diastolic 56–78; PULSE 44–58; RESP 15–19; TEMP 36.6–36.8; O2SAT 94–98; BMI 33.1; BMI 32.2
--- NOTE | 2024-04-20 07:52 | EKG12_ITS ---
Test Reason : CP Blood Pressure : */* mmHG Vent. Rate : 45 BPM Atrial Rate : 45 BPM P-R Int : 170 ms QRS Dur : 94 ms QT Int : 506 ms P-R-T Axes : 2 37 14 degrees QTcB Int : 437 ms Sinus bradycardia Otherwise normal ECG Confirmed by Alfredo Squires ([id number]), editor trade journal [employer] ([id number]) on 04/21/2024 9:15:30 AM Referred By: GREGORY Confirmed By: Alfredo Squires
--- NOTE | 2024-04-20 07:54 | ED.VIS.CHEST ---
HPI History of Present Illness Chief Complaint: Chest Pain Informant: patient Onset/Context/Timing Onset: Today and Hours (1-1.5) Activity at onset: gradual and onset Timing: Continuous Quality: Positive for Pain and Pressure Location: Right Parasternal (With radiation to right upper extremity and neck/jaw) Current Severity: 6/10 Maximum Severity: 10/10 Worsened By: Nothing Relieved By: NTG Associated Symptoms: Positive for Diaphoresis and Dyspnea; Negative for Nausea, Vomiting, Cough, Fever, Lightheadedness or Palpitations Narrative Narrative: 69-year-old female with a history of extensive coronary artery disease presenting with chest discomfort that started this morning, she was already up and getting around for work, when the discomfort started. Started as pressure, severe. Has history of dyspnea with exertion and with conversation she states that basically was no different but she did feel dyspneic a little. No palpitations or lightheadedness/syncope. She states she took 1 nitroglycerin and the pain let up quite a bit but did not go away, it started to worsen a little and she took another nitroglycerin and it did not help a lot but her pain has stayed a 5-6. This is similar discomfort that she had when she needed stents 1 year ago, but they were in her bypass vessels and so she needed to be sent to [facility] for that. [facility] Medical History COVID Concussion Hiatal hernia Wears glasses Post-menopausal Alcohol use Ambulates with cane Diabetes Arthritis Rheumatoid arthritis High cholesterol Anemia Acute kidney failure Restless legs Back pain Injury of back Migraine headache Injury of head and neck Blackout Difficulty swallowing Difficulty chewing History of diverticulitis Gastric reflux Former smoker CPAP (continuous positive airway pressure) dependence Sleep apnea Shortness of breath on exertion History of echocardiogram History of stress test Cardiology follow-up encounter History of heart attack History of irregular heartbeat Chest pain Imbalance Headache Epigastric pain Lymphedema Restless legs syndrome (RLS) Anxiety and depression Iron deficiency anemia Proliferative diabetic retinopathy Peripheral neuropathy Obesity Hyperhomocystinemia Narcolepsy GERD (gastroesophageal reflux disease) Atherosclerotic heart disease of [place] coronary artery without angina pectoris Atherosclerosis of coronary artery 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 Essential hypertension Hyperlipidemia Obstructive sleep apnea Type 2 diabetes mellitus Home Medications ?Medication ?Instructions ?Recorded ?Last Taken ?Type ascorbate calcium (vitamin C) 500 500 mg PO DAILY 10/26/21 04/19/24 History mg tablet red yeast rice 600 mg capsule 600 mg PO DAILY 10/26/21 04/20/24 History pregabalin 150 mg capsule 150 mg PO BID 02/27/22 04/19/24 History cholecalciferol (vitamin D3) 25 25 mcg PO DAILY 06/04/22 04/19/24 History mcg (1,000 unit) capsule metformin 500 mg tablet 1,000 mg PO BID 01/21/23 04/20/24 History aspirin 81 mg tablet,delayed 81 mg PO DAILY 05/18/23 04/20/24 History release (Adult Aspirin Regimen) citalopram 40 mg tablet 40 mg PO DAILY 05/18/23 04/20/24 History Handicap Placard #1 ea 06/05/23 Unknown Rx albuterol sulfate 90 mcg/actuation 1 puff inhalation Q6H PRN 07/24/23 04/15/24 Rx aerosol inhaler shortness of breath or wheezing #6.7 grams magnesium 250 mg tablet 250 mg PO BID 09/03/23 04/19/24 History clopidogrel 75 mg tablet 75 mg PO .COMPLEX #90 tabs 12/10/23 04/20/24 Rx fenofibrate nanocrystallized 145 145 mg PO DAILY #90 tabs 12/10/23 04/20/24 Rx mg tablet furosemide 40 mg tablet 40 mg PO .COMPLEX #30 tabs 12/10/23 Unknown Rx isosorbide mononitrate 30 mg 30 mg PO DAILY #90 tabs 12/10/23 04/20/24 Rx tablet,extended release 24 hr isosorbide mononitrate 60 mg 60 mg PO DAILY #90 tabs 12/10/23 04/20/24 Rx tablet,extended release 24 hr metoprolol succinate 25 mg 12.5 mg (1/2 x 25 mg) PO DAILY #45 12/10/23 04/20/24 Rx tablet,extended release 24 hr tabs nitroglycerin 0.4 mg sublingual 0.4 mg sublingual Q5-15M PRN chest 12/10/23 04/20/24 Rx tablet pain #25 tabs pantoprazole 40 mg tablet,delayed 40 mg PO BID #180 tabs 12/10/23 04/20/24 Rx release ranolazine 1,000 mg 1,000 mg PO BID #180 tabs 12/10/23 04/20/24 Rx tablet,extended release,12 hr prednisone 10 mg tablet 10 mg PO DAILY 04/20/24 04/20/24 History Allergy/AdvReac Type Severity Reaction Status Date / Time aspirin Allergy Rash Verified 04/20/24 07:40 banana Allergy Hives Verified 04/20/24 07:40 canagliflozin (From Invokana) Allergy Anaphylaxis Verified 04/20/24 07:40 kiwi Allergy Hives Verified 04/20/24 07:40 niacin Allergy Rash Verified 04/20/24 07:40 Penicillins (PCN) Allergy Hives Verified 04/20/24 07:40 Sulfa (Sulfonamide Allergy Hives Verified 04/20/24 07:40 Antibiotics) ticagrelor AdvReac Severe Severe Verified 04/20/24 07:40 nausea and vomiting doxycycline AdvReac Nausea/Vom/ Verified 04/20/24 07:40 Diarrhea erythromycin base (From AdvReac Other Verified 04/20/24 07:40 Staticin) ethyl alcohol (From Staticin) AdvReac Other Verified 04/20/24 07:40 gemfibrozil (From Lopid) AdvReac Other Verified 04/20/24 07:40 ibuprofen AdvReac Upset Verified 04/20/24 07:40 Stomach levofloxacin (From Levaquin) AdvReac Upset Verified 04/20/24 07:40 Stomach lisinopril AdvReac cough Verified 04/20/24 07:40 propoxyphene (From AdvReac Upset Verified 04/20/24 07:40 Darvocet-N) Stomach spironolactone AdvReac hyperkalemi Verified 04/20/24 07:40 a Qavdohq-AHR-MiM Reductase AdvReac unknown Verified 04/20/24 07:40 Inhibitor (Ffiuvnz-Ark-Tjm Reductase Inhibitor) tramadol AdvReac Other Verified 04/20/24 07:40 Family History Mother Heart disease Father Heart disease Diabetes Surgical History History of colonoscopy with polypectomy History of cataract surgery History of cholecystectomy History of left heart catheterization History of hysterectomy History of tonsillectomy H/O coronary artery bypass surgery (10/2001) History of coronary artery stent placement (04/30/23) Social History household members: spouse Smoking Status: Former smoker how long ago did patient quit smokin alcohol intake: current alcohol intake frequency: holidays/special occasions only Alcohol type: beer substance use type: does not use what type of physical activity do you participate in: walking frequency: 5-6 times per week ROS ROS ED Constitutional Constitutional ED: Reports sweats; Denies chills or fever(s) Eyes Eyes: Denies change in vision or diplopia ENT ENT ED: Denies rhinorrhea or sore throat Cardiovascular Cardiovascular: Reports chest pain; Denies leg edema, orthopnea, palpitations or syncope Respiratory/Chest Respiratory/Chest: Reports dyspnea on exertion; Denies cough or orthopnea Gastrointestinal Gastrointestinal: Denies abdominal pain, diarrhea, nausea or vomiting Genitourinary Genitourinary ED: Denies dysuria or hematuria Musculoskeletal Musculoskeletal: Denies back pain or neck pain Integumentary Denies abscess or rash Neurologic Neurologic: Denies headache(s), paresthesias or weakness Psychiatric Psychiatric: Denies anxiety or suicidal thoughts EXAM Physical Exam Const Vital Signs: 04/20/24 07:40 04/20/24 07:43 04/20/24 07:52 Temperature 98.2 F Temperature Source Oral Pulse Rate 45 L Respiratory Rate 16 Respiratory Effort Normal Blood Pressure 184/60 H Blood Pressure Mean 101 Pulse Ox 96 98 Oxygen Delivery Method Room Air Room Air 04/20/24 08:00 04/20/24 08:08 04/20/24 08:39 Temperature Temperature Source Pulse Rate 46 L 50 L 46 L Respiratory Rate 16 Respiratory Effort Blood Pressure 128/78 H 129/71 H 130/64 H Blood Pressure Mean 86 Pulse Ox 98 Oxygen Delivery Method 04/20/24 09:00 04/20/24 10:00 04/20/24 11:00 Temperature Temperature Source Pulse Rate 49 L 58 L 46 L Respiratory Rate 19 H 19 H 19 H Respiratory Effort Blood Pressure 131/61 H 132/56 H 135/67 H Blood Pressure Mean 84 81 89 Pulse Ox 95 98 97 Oxygen Delivery Method Room Air Room Air Room Air 04/20/24 11:06 Temperature 98.2 F Temperature Source Pulse Rate 47 L Respiratory Rate 15 Respiratory Effort Blood Pressure 135/65 H Blood Pressure Mean 88 Pulse Ox 98 Oxygen Delivery Method Positive well nourished and well developed General Appearance ED: well developed and NAD HEENT Reports moist mucous membranes normocephalic and atraumatic Eyes PERRL and EOMs intact bilaterally Neck full ROM and supple Resp normal respiratory effort and clear to auscultation bilaterally Cardio regular rate, regular rhythm and no murmurs Rate: bradycardia Peripheral Pulses: radial pulses present bilateral 2+ GI non-tender and non-distended Auscultation: normoactive bowel sounds Palpation: soft Back/Spine no CVA tenderness General Back: other FROM Extremity normal to inspection General Extremety ED: Negative for edema, pulses abnormal or tenderness General Extremity: Negative for edema or pulses abnormal Neuro oriented x3, CN's II-XII intact bilaterally and no sensory deficits noted Sensorium / Orientation: awake and alert Motor Exam: strength 5/5 throughout Psych mental status grossly normal Mood & Affect: anxious and tearful Skin no rashes or lesions noted and no wounds Heart Score History: Highly Suspicious ECG: Normal Age: >/= 65 years Risk Factors: >/= 3 Risk Factors or History of CAD Troponin: </= Normal Limit Score: 6 MDM MDM MDM Narrative Medical decision making narrative: Patient initial EKG is abnormal/unchanged compared to prior, she was given morphine and Zofran and nitroglycerin while we were obtaining the rest of the workup, chest x-ray 1 view my interpretation is normal with a narrow mediastinum, the rest of her labs are unremarkable. She states the morphine and nitroglycerin helped temporarily but shortly thereafter she reported to nursing that her chest discomfort which now feels like pressure is 10/10. I reevaluated her. She appears very comfortable clinically, however she states the pressure is bad again. Had another EKG obtained. It is unchanged. I discussed with Dr. Squires with cardiology, and her repeat troponin returns the same for a delta of 0. She is still having chest discomfort. He recommends stress testing as the next course of action, given that she is still having symptoms and an elevated heart score, discussed with hospitalist for inpatient disposition. Lab Data Attestation: I reviewed the patient's lab results. Labs: Laboratory Results - last 24 hr 04/20/24 04/20/24 07:43 10:05 WBC 11.0 RBC 4.91 Hgb 13.8 Hct 42.9 MCV 87.4 MCH 28.1 MCHC 32.2 RDW Std Deviation 47.6 H RDW Coeff of Nancy 14.8 H Plt Count 308 MPV 11.6 Immature Gran % (Auto) 1.200 H Neut % (Auto) 59.1 Lymph % (Auto) 28.3 [place] % (Auto) 9.3 Eos % (Auto) 1.4 Baso % (Auto) 0.7 Absolute Neuts (auto) 6.5 Absolute Lymphs (auto) 3.12 Nucleated RBC % 0 Sodium 134 L Potassium 4.3 Chloride 96 L Carbon Dioxide 32.0 Anion Gap 7 BUN 15 Creatinine 1.36 H Estim Creat Clear Calc 44.27 Est GFR (MDRD) Af Amer 49 L Est GFR (MDRD) Non-Af 41 L BUN/Creatinine Ratio 11.0 Glucose 388 H Calcium 9.6 Troponin I High Sens 8 8 Radiography Diagnostic Testing: Clinical Impression(s) from Imaging Studies Chest X-Ray 04/20/24 08:00 IMPRESSION: Borderline cardiomegaly. The lungs are clear. Electronically Signed: Ever Ling MD at 8:13 EST , Rhythm Strip Rhythm Strip: Sinus Rhythm Rate: 45 Ectopy: None EKG Initial EKG: Attestation: I personally reviewed and interpreted this EKG as follows: Interpretation: Sinus Rhythm, No Acute Injury Pattern and Inverted T-Waves (V1-2, without acute ST deviation) Prior EKG tracings: available for review Prior: Unchanged Follow-up EKG: Attestation: I personally reviewed and interpreted this EKG as follows: Interpretation: Sinus Rhythm and No Acute Injury Pattern Prior: Unchanged Management Discussion w/another healthcare provider: Hospitalist (Dr. cox) and [employer] (Cardiology) Discharge Plan Dx/Rx/DC Orders Clinical Impression: Chest pain, unspecified, Atherosclerosis of coronary artery Disposition Disposition: Acute Care Hospital [facility]
[2024-04-20] MEDS: Ondansetron 4 MG/2 ML Vial IV (07:59)
[2024-04-20] MEDS: Morphine 4 MG/ML Syringe 2 MG IV (07:59)
[2024-04-20] MEDS: Nitroglycerin SL (ED/IMG/CATH) 0.4 MG TABLET SL ×2 (08:00→08:08)
--- NOTE | 2024-04-20 08:00 | RAD_ITS ---
STUDY: X-RAY CHEST REASON FOR EXAM: Female, 69 years old. Chest pain TECHNIQUE: Single AP portable view of the chest. COMPARISON: Comparison is made with prior study of December 24, 2023. FINDINGS: EKG electrodes are seen. The lungs are clear and expanded. There is no demonstrated pleural abnormality. Sternal cerclage wires and vascular clips are present from a prior sternotomy and coronary artery bypass graft procedure (CABG). A stent is seen within the right coronary artery. Borderline cardiomegaly. Normal mediastinum and chago. Normal visualized pulmonary arteries. There is atherosclerotic calcification of the aortic arch with tortuosity. There are diffuse degenerative changes of the visualized thoracic spine. Normal visualized ribs, clavicles, and shoulders. There is no demonstrated abnormality of the visualized soft tissue structures of the upper abdomen. RAD/Chest 1 View (Portable) IMPRESSION: Borderline cardiomegaly. The lungs are clear. Electronically Signed: Ever Ling MD at 8:13 EST ,
[2024-04-20 08:01] LABS: Absolute Lymphocyte Count 3.12 X10^3/uL (0.83-4.51); Absolute Neutrophil Count 6.5 X10^3/uL (2.0-7.7); Basophil# 0.08 X10^3/uL; Basophil% 0.7 % (0-1); Eosinophil# 0.15 X10^3/uL; Eosinophils% 1.4 % (0-5); Hematocrit 42.9 % (37-47); Hemoglobin 13.8 g/dL (12.0-15.0); Lymphocyte # 3.12 X10^3/ul (0.83-4.51); Lymphocyte % 28.3 % (19-41); Mean Corp Hgb Conc 32.2 g/dL (32-36); Mean Corpuscular Hgb 28.1 pg (27.0-32.0); Mean Corpuscular Volume 87.4 fL (81-99); Mean Platelet Vol. 11.6 fl (6.2-12.0); Monocyte# 1.03 X10^3/uL; Monocyte% 9.3 % (0-10); NRBC Flagged by Analyzer 0 % (0-5); Neutrophil # 6.52 X10^3/uL (2.7-7.7); Neutrophil % 59.1 % (47-70); Platelet Count 308 K/mm3 (150-450); RBC Distribution Width CV 14.8 % (11.6-14.6); RBC Distribution Width SD 47.6 fl (35.1-43.9); Red Blood Count 4.91 M/mm3 (4.2-5.4)
[2024-04-20 08:40] LABS: Anion Gap 7 (5-15); BUN 15 mg/dL (7-18); Calcium,Total 9.6 mg/dL (8.5-10.1); Chloride 96 mmol/L (98-107); Creatinine, Serum 1.36 mg/dL (0.55-1.02); EST Glomerular Filtration Rate 41 mL/min (>60); Est Glom Filt Rate - Afr Amer 49 mL/min (>60); Estimated Creatinine Clearance 44.27 ml/min; Glucose 388 mg/dL (74-106); Potassium 4.3 mmol/L (3.5-5.1); Sodium Level 134 mmol/L (136-145); Troponin-I HS (w/2H Reflex) 8 pg/mL (3.0-54.0)
--- NOTE | 2024-04-20 09:30 | EKG12_ITS ---
Test Reason : REPEAT-CP Blood Pressure : */* mmHG Vent. Rate : 44 BPM Atrial Rate : 44 BPM P-R Int : 188 ms QRS Dur : 96 ms QT Int : 530 ms P-R-T Axes : 11 29 25 degrees QTcB Int : 453 ms Marked sinus bradycardia Abnormal ECG Confirmed by Alfredo Squires ([id number]), editor farm journal [place] [employer] ([id number]) on 04/21/2024 9:15:58 AM Referred By: Confirmed By: Alfredo Squires
[2024-04-20] MEDS: Morphine 4 MG/ML Syringe IV (09:31)
[2024-04-20 09:58] LABS: Reflex Troponin-HS? (from REC) Y
[2024-04-20 10:28] LABS: Troponin-I HS 8 pg/mL (3.0-54.0)
--- NOTE | 2024-04-20 11:16 | PCM.HP.STD ---
HPI - General General Date of Admission: 04/20/24 Date of Service: 04/20/24 Chief Complaint: Chest pain HPI Narrative ELSA PUGH, is a 69 F who presents chest pain. Patient has significant past cardiac history including CABG and subsequent stent placement, essential hypertension, dyslipidemia who presented with chest pain. Patient symptoms started on the morning of her admission pain was described as sharp pain located in the retrosternal region radiating to her back as well as her jaw. Given her previous history she presented to the emergency department. Initial set of cardiac enzymes came back negative admitted to a monitored bed for further eval. [facility] Medical History COVID Concussion Hiatal hernia Wears glasses Post-menopausal Alcohol use Ambulates with cane Diabetes Arthritis Rheumatoid arthritis High cholesterol Anemia Acute kidney failure Restless legs Back pain Injury of back Migraine headache Injury of head and neck Blackout Difficulty swallowing Difficulty chewing History of diverticulitis Gastric reflux Former smoker CPAP (continuous positive airway pressure) dependence Sleep apnea Shortness of breath on exertion History of echocardiogram History of stress test Cardiology follow-up encounter History of heart attack History of irregular heartbeat Chest pain Imbalance Headache Epigastric pain Lymphedema Restless legs syndrome (RLS) Anxiety and depression Iron deficiency anemia Proliferative diabetic retinopathy Peripheral neuropathy Obesity Hyperhomocystinemia Narcolepsy GERD (gastroesophageal reflux disease) Atherosclerotic heart disease of chilkoot coronary artery without angina pectoris Atherosclerosis of coronary artery 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 Essential hypertension Hyperlipidemia Obstructive sleep apnea Type 2 diabetes mellitus Home Medications ?Medication ?Instructions ?Recorded ?Last Taken ?Type ascorbate calcium (vitamin C) 500 500 mg PO DAILY 10/26/21 04/19/24 History mg tablet red yeast rice 600 mg capsule 600 mg PO DAILY 10/26/21 04/20/24 History pregabalin 150 mg capsule 150 mg PO BID 02/27/22 04/19/24 History cholecalciferol (vitamin D3) 25 25 mcg PO DAILY 06/04/22 04/19/24 History mcg (1,000 unit) capsule metformin 500 mg tablet 1,000 mg PO BID 01/21/23 04/20/24 History aspirin 81 mg tablet,delayed 81 mg PO DAILY 05/18/23 04/20/24 History release (Adult Aspirin Regimen) citalopram 40 mg tablet 40 mg PO DAILY 05/18/23 04/20/24 History Handicap Placard #1 ea 06/05/23 Unknown Rx albuterol sulfate 90 mcg/actuation 1 puff inhalation Q6H PRN 07/24/23 04/15/24 Rx aerosol inhaler shortness of breath or wheezing #6.7 grams magnesium 250 mg tablet 250 mg PO BID 09/03/23 04/19/24 History clopidogrel 75 mg tablet 75 mg PO .COMPLEX #90 tabs 12/10/23 04/20/24 Rx fenofibrate nanocrystallized 145 145 mg PO DAILY #90 tabs 12/10/23 04/20/24 Rx mg tablet furosemide 40 mg tablet 40 mg PO .COMPLEX #30 tabs 12/10/23 Unknown Rx isosorbide mononitrate 30 mg 30 mg PO DAILY #90 tabs 12/10/23 04/20/24 Rx tablet,extended release 24 hr isosorbide mononitrate 60 mg 60 mg PO DAILY #90 tabs 12/10/23 04/20/24 Rx tablet,extended release 24 hr metoprolol succinate 25 mg 12.5 mg (1/2 x 25 mg) PO DAILY #45 12/10/23 04/20/24 Rx tablet,extended release 24 hr tabs nitroglycerin 0.4 mg sublingual 0.4 mg sublingual Q5-15M PRN chest 12/10/23 04/20/24 Rx tablet pain #25 tabs pantoprazole 40 mg tablet,delayed 40 mg PO BID #180 tabs 12/10/23 04/20/24 Rx release ranolazine 1,000 mg 1,000 mg PO BID #180 tabs 12/10/23 04/20/24 Rx tablet,extended release,12 hr prednisone 10 mg tablet 10 mg PO DAILY 04/20/24 04/20/24 History Allergy/AdvReac Type Severity Reaction Status Date / Time aspirin Allergy Rash Verified 04/20/24 07:40 banana Allergy Hives Verified 04/20/24 07:40 canagliflozin (From Invokana) Allergy Anaphylaxis Verified 04/20/24 07:40 kiwi Allergy Hives Verified 04/20/24 07:40 niacin Allergy Rash Verified 04/20/24 07:40 Penicillins (PCN) Allergy Hives Verified 04/20/24 07:40 Sulfa (Sulfonamide Allergy Hives Verified 04/20/24 07:40 Antibiotics) ticagrelor AdvReac Severe Severe Verified 04/20/24 07:40 nausea and vomiting doxycycline AdvReac Nausea/Vom/ Verified 04/20/24 07:40 Diarrhea erythromycin base (From AdvReac Other Verified 04/20/24 07:40 Staticin) ethyl alcohol (From Staticin) AdvReac Other Verified 04/20/24 07:40 gemfibrozil (From Lopid) AdvReac Other Verified 04/20/24 07:40 ibuprofen AdvReac Upset Verified 04/20/24 07:40 Stomach levofloxacin (From Levaquin) AdvReac Upset Verified 04/20/24 07:40 Stomach lisinopril AdvReac cough Verified 04/20/24 07:40 propoxyphene (From AdvReac Upset Verified 04/20/24 07:40 Darvocet-N) Stomach spironolactone AdvReac hyperkalemi Verified 04/20/24 07:40 a Examlge-YIU-TeL Reductase AdvReac unknown Verified 04/20/24 07:40 Inhibitor (Gsposdr-Ixf-Xif Reductase Inhibitor) tramadol AdvReac Other Verified 04/20/24 07:40 Family History Mother Heart disease Father Heart disease Diabetes Surgical History History of colonoscopy with polypectomy History of cataract surgery History of cholecystectomy History of left heart catheterization History of hysterectomy History of tonsillectomy H/O coronary artery bypass surgery (10/2001) History of coronary artery stent placement (04/30/23) Social History household members: spouse Smoking Status: Former smoker how long ago did patient quit smokin alcohol intake: current alcohol intake frequency: holidays/special occasions only Alcohol type: beer substance use type: does not use what type of physical activity do you participate in: walking frequency: 5-6 times per week ROS ROS Narrative GENERAL: denies fever, chills, night sweats, weight loss, anorexia HEENT: denies headache, sinus congestion, or drainage, dysphagia RESPIRATORY: denies cough, sputum production, shortness of breath, dyspnea on exertion CARDIAC: Chest pain and shortness of breath GASTROINTESTINAL: denies abdominal pain, nausea, vomiting, melena, GENITOURINARY: denies dysuria, urgency, frequency, heamaturia EXTREMITY: denies swelling MUSCULOSKELETAL: denies current joint pain or tenderness NEUROLOGIC: denies focal numbness, weakness, tingling HEMATOLOGIC: denies easy bruising and/or hemorrhage INTEGUMENT: denies rashes PSYCHIATRIC: denies suicidal or homicidal ideation Vital Signs Vital Signs Vital Signs: 04/20/24 07:40 04/20/24 07:43 04/20/24 07:52 Temperature 98.2 F Temperature Source Oral Pulse Rate 45 L Respiratory Rate 16 Respiratory Effort Normal Blood Pressure 184/60 H Blood Pressure Mean 101 Pulse Ox 96 98 Oxygen Delivery Method Room Air Room Air 04/20/24 08:00 04/20/24 08:08 04/20/24 08:39 Temperature Temperature Source Pulse Rate 46 L 50 L 46 L Respiratory Rate 16 Respiratory Effort Blood Pressure 128/78 H 129/71 H 130/64 H Blood Pressure Mean 86 Pulse Ox 98 Oxygen Delivery Method 04/20/24 09:00 04/20/24 10:00 04/20/24 11:00 Temperature Temperature Source Pulse Rate 49 L 58 L 46 L Respiratory Rate 19 H 19 H 19 H Respiratory Effort Blood Pressure 131/61 H 132/56 H 135/67 H Blood Pressure Mean 84 81 89 Pulse Ox 95 98 97 Oxygen Delivery Method Room Air Room Air Room Air 04/20/24 11:06 Temperature 98.2 F Temperature Source Pulse Rate 47 L Respiratory Rate 15 Respiratory Effort Blood Pressure 135/65 H Blood Pressure Mean 88 Pulse Ox 98 Oxygen Delivery Method Weight Weight: 93.2 kg Body Mass Index (BMI) 33.1 Physical Exam Narrative GENERAL: cooperative HEENT: Atraumatic; normocephalic EYES; Anicteric, Normal Conjunctiva NECK; supple, normal thyroid, RESPIRATORY: Diminished to auscultation CARDIOVASCULAR: Regular S1 S2, GI: soft, normoactive bowel sounds, : No Renal angle tenderness; EXTREMITIES: No edema, no clubbing, MUSCULOSKELETAL: no muscle wasting NEURO: Awake; no lateralizing signs. SKIN: No Rash PSYCH; Flat affect Results Lab / Micro Data 04/20/24 07:43 04/20/24 07:43 Labs: Laboratory Results - last 24 hr 04/20/24 07:43: WBC 11.0, RBC 4.91, Hgb 13.8, Hct 42.9, MCV 87.4, MCH 28.1, MCHC 32.2, RDW Std Deviation 47.6 H, RDW Coeff of Nancy 14.8 H, Plt Count 308, MPV 11.6, Immature Gran % (Auto) 1.200 H, Neut % (Auto) 59.1, Lymph % (Auto) 28.3, [place] % (Auto) 9.3, Eos % (Auto) 1.4, Baso % (Auto) 0.7, Absolute Neuts (auto) 6.5, Absolute Lymphs (auto) 3.12, Nucleated RBC % 0, Sodium 134 L, Potassium 4.3, Chloride 96 L, Carbon Dioxide 32.0, Anion Gap 7, BUN 15, Creatinine 1.36 H, Estim Creat Clear Calc 44.27, Est GFR (MDRD) Af Amer 49 L, Est GFR (MDRD) Non-Af 41 L, BUN/Creatinine Ratio 11.0, Glucose 388 H, Calcium 9.6, Troponin I High Sens 8 04/20/24 10:05: Troponin I High Sens 8 Rhythm Strip Rhythm Strip: Sinus Rhythm Rate: 45 Ectopy: None Imaging Radiology Impression Chest X-Ray 04/20/24 08:00 IMPRESSION: Borderline cardiomegaly. The lungs are clear. Electronically Signed: Ever Ling MD at 8:13 EST Reading Location ID and State: [address] [place] [address] , Service support , Assessment & Plan Assessment/Plan (1) Chest pain, unspecified: PLAN: Plan Patient is a 69-year-old female presenting with chest pain 1. Chest pain ? In the patient with significant high risk. Admitted to monitored bed currently ruling out RI with serial cardiac enzymes patient to undergo nuclear stress test once RI is ruled out as part of her evaluation also ordered a 2D echo 2. Coronary artery disease ? With previous CABG and subsequent stent placement. Patient is on recommended medications she is however not on statin due to intolerance 3. Dyslipidemia ? Patient is on fenofibrate 4. Hypertension ? Blood pressure controlled, home medications continued with dose adjustment as needed 5. GERD ? On PPI 5. Mild intermittent asthma ? Bronchodilator therapy as needed 6. Rheumatoid arthritis ? Currently asymptomatic 7. Diabetes mellitus type 2 ? Patient is on metformin held on admission please on Accu-Cheks ACHS with sliding scale coverage. Patient blood glucose levels markedly elevated patient started on long-acting insulin 8. Class I obesity with BMI of 32.2 ? Complicating care weight loss advised 9. Chronic kidney disease stage III ? Kidney function at baseline 10. Chronic kidney disease stage III ? Kidney function at baseline. Monitoring with daily CBC with differential 11. Mild hyponatremia ? Will monitor with daily BMPs 12. Chronic congestive heart failure with preserved ejection fraction ? Echo obtained at an outside hospital on 05/01/2023 demonstrated EF of 72% with RVSP of 32 mmHg patient is on furosemide did continue 13. DVT prophylaxis ? SC enoxaparin Time spent in the patient's overall evaluation,decision-making process, review of diagnostic data, adjustment of management, discussion with other providers, nursing nursing and ancillary staff involved in patient's care documentation,75 Minutes Advance planning; did discuss with the patient and family regarding advanced directives as well as CODE STATUS. Did explain the various scenarios involved ( FULL CODE, DNR CCA, DNR CCA with no intubation, and DNR CC and what each meant) patient elected to remain full code with CPR and intubation if needed. Order was placed. Time spent on discussion 18 minutes. Charges/Coding Multi Select Codes Visit Charges Visit Charges: 58386 Init Hosp Hospitalists' Procedures Procedures: 53470 Advncd Care Plan 30 Min
--- NOTE | 2024-04-20 11:53 | ECHOCS_ITS ---
Reason For Study: CHEST PAIN Procedure This was a 2D Doppler, Color Flow transthoracic echocardiogram. The study was technically difficult. Contrast injection was performed. Exam performed portable in patient room. Left Ventricle Normal size and thickness. The left ventricular ejection fraction is 75 %. Normal diastology for age. Right Ventricle Normal right ventricle. Atria The left and right atria are normal. Hypermobile atrial septum. Mitral Valve Mild mitral annular calcification. Mild focal mitral valve calcification, bileaflet. Trivial mitral valve insufficiency. Aortic Valve Trisinus/trileaflet aortic valve. Trivial aortic valve insufficiency. Pulmonic Valve The pulmonic valve is not well visualized. Great Vessels Normal sized aortic root. Pericardium/Pleural Suspect a small pericardial sac. Recommend CT scan for further evaluation. Medication Diluted definity 2ml given slow IV push to enhance endocardial definition. MMode/2D Measurements & Calculations LVIDd: 4.5 cm IVSd: 0.92 cm LVOT diam: 2.0 cm LVIDs: 2.9 cm LVPWd: 0.83 cm LVOT area: 3.1 cm2 FS: 35.7 % Ao root diam: 3.1 cm LAV(MOD-bp): 57.3 ml LVAd ap4: 35.8 cm2 LAV(MOD-bp) Indexed: 28.3 ml/m2 LVLd ap4: 8.9 cm LAV(MOD-sp2): 54.7 ml EDV(MOD-sp4): 120.1 ml LAV(MOD-sp4): 51.7 ml EDV(sp4-el): 122.1 ml LVAs ap4: 16.5 cm2 LVLs ap4: 6.7 cm ESV(MOD-sp4): 33.9 ml ESV(sp4-el): 34.6 ml EF(MOD-sp4): 71.7 % EF(sp4-el): 71.7 % SV(MOD-sp4): 86.1 ml SV(sp4-el): 87.5 ml LA A4 area: 19.6 cm2 SI(MOD-sp4): 42.5 ml/m2 LA dimension(2D): 4.1 cm RA A4 area: 14.1 cm2 Time Measurements MV dec time: 0.31 sec Doppler Measurements & Calculations MV E max juan jose: 76.6 cm/sec Lat Peak E' Juan Jose: 7.8 cm/sec Med Peak E' Juan Jose: 4.5 cm/sec MV A max juan jose: 89.4 cm/sec E/E' lat: 9.8 E/E' med: 17.0 MV E/A: 0.86 MV V2 max: 107.1 cm/sec Ao V2 max: 236.2 cm/sec MV max P.6 mmHg MV dec slope: 253.0 cm/sec2 Ao max P.4 mmHg MV V2 mean: 42.8 cm/sec Ao V2 mean: 147.8 cm/sec MV mean P.1 mmHg Ao mean P.3 mmHg MV V2 VTI: 46.0 cm Ao V2 VTI: 57.3 cm AV (velocity ratio): 0.82 MVA(VTI): 3.2 cm2 ROBERT(I,D): 2.6 cm2 ROBERT(V,D): 2.3 cm2 LV V1 max: 169.8 cm/sec SV(LVOT): 147.3 ml PA V2 max: 121.7 cm/sec LV V1 max P.5 mmHg PA V2 mean: 90.3 cm/sec LV V1 mean P.8 mmHg LV V1 mean: 101.9 cm/sec LV V1 VTI: 47.0 cm ECHO/Echo Complete W/ Contrast Interpretation Summary The left ventricular ejection fraction is 75 %. Mild mitral annular calcification. Mild focal mitral valve calcification, bileaflet. Hypermobile atrial septum. Suspect a small pericardial sac. Recommend CT scan for further evaluation. Ordering Physician: Javier Nash Referring Physician: MOHSEN LINDA Performed By: Inez Kearns RCS
--- NOTE | 2024-04-20 11:53 | EKG12_ITS ---
Test Reason : CP Blood Pressure : */* mmHG Vent. Rate : 43 BPM Atrial Rate : 43 BPM P-R Int : 172 ms QRS Dur : 98 ms QT Int : 544 ms P-R-T Axes : 61 50 34 degrees QTcB Int : 459 ms Marked sinus bradycardia Abnormal ECG When compared with ECG of 20-Apr-2024 14:02, MANUAL COMPARISON REQUIRED DATA IS UNCONFIRMED Confirmed by Alfredo Squires ([id number]), society editor ISRAEL NAVARRETE ([id number]) on 04/21/2024 1:07:00 PM Referred By: PADMAJA Confirmed By: Alfredo Squires
[2024-04-20 13:51] LABS: Troponin-I HS 7 pg/mL (3.0-54.0)
[2024-04-20] MEDS: Insulin Lispro 100 UNIT/ML INSULN.PEN SC ×2 (16:44→21:55)
[2024-04-20] MEDS: Acetaminophen 325 MG Tablet 650 MG PO (16:48)
[2024-04-20 16:58] LABS: Bedside Glucose 300 mg/dL (74-106)
[2024-04-20] MEDS: Pantoprazole Sodium 40 MG Tablet PO (21:55)
[2024-04-20] MEDS: Ranolazine 500 MG Tablet 1000 MG PO (21:56)
[2024-04-20] MEDS: Magnesium Chloride 64 MG Delay Rel.Tablet PO (21:56)
[2024-04-20] MEDS: Pregabalin 75 MG Capsule 150 MG PO (21:58)
[2024-04-20 22:25] LABS: Bedside Glucose 233 mg/dL (74-106)
[2024-04-21] VITALS (7 sets, daily range): BP systolic 118–159; BP diastolic 60–75; PULSE 43–58; RESP 16–18; TEMP 35.9–36.8; O2SAT 95–100; BMI 32.1
[2024-04-21] MEDS: 0.9% Saline Lock 10 ML Syringe IV (04:54)
[2024-04-21] MEDS: Ondansetron 4 MG/2 ML Vial IV (04:55)
[2024-04-21] MEDS: Nitroglycerin (INPATIENT USE) 0.4 MG TAB.SUBL SL (04:58)
--- NOTE | 2024-04-21 05:55 | EKG12_ITS ---
Test Reason : Blood Pressure : */* mmHG Vent. Rate : 47 BPM Atrial Rate : 47 BPM P-R Int : 180 ms QRS Dur : 102 ms QT Int : 552 ms P-R-T Axes : 54 43 47 degrees QTcB Int : 488 ms Sinus bradycardia with sinus arrhythmia Otherwise normal ECG When compared with ECG of 20-Apr-2024 09:26, MANUAL COMPARISON REQUIRED DATA IS UNCONFIRMED Confirmed by Alfredo Squires ([id number]), photograph editor ISRAEL NAVARRETE ([id number]) on 04/21/2024 1:07:45 PM Referred By: Confirmed By: Alfredo Squires
[2024-04-21] MEDS: Clopidogrel Bisulfate 75 MG Tablet PO (06:35)
[2024-04-21] MEDS: Aspirin E.C. 81 MG Tablet PO (06:35)
[2024-04-21 06:54] LABS: Bedside Glucose 230 mg/dL (74-106)
[2024-04-21] MEDS: Citalopram 40 MG TABLET PO (10:27)
[2024-04-21] MEDS: Fenofibrate 145 MG Tablet PO (10:27)
[2024-04-21] MEDS: Magnesium Chloride 64 MG Delay Rel.Tablet PO (10:27)
[2024-04-21] MEDS: Ranolazine 500 MG Tablet 1000 MG PO (10:27)
[2024-04-21] MEDS: Pantoprazole Sodium 40 MG Tablet PO (10:27)
[2024-04-21] MEDS: Insulin Lispro 100 UNIT/ML INSULN.PEN SC ×2 (10:41→16:44)
[2024-04-21 11:01] LABS: Bedside Glucose 290 mg/dL (74-106)
--- NOTE | 2024-04-21 12:25 | STRESSREP_ITS ---
Stress Test Report Date: 04/21/2024 Procedure: Pharmacologic stress nuclear imaging study Indications: Chest pain Consent: Per the patient Procedure: The patient underwent pharmacologic (Regadenoson 0.4mg ) evaluation with a peak heart rate of 75 beats per minute (50%predicted maximal heart rate) and a peak blood pressure of 132/70 mmHg. The baseline ECG demonstrated sinus rhythm. The peak pharmacologic ECG demonstrated no ischemic changes. There were no cardiac dysrhythmias pretest, during pharmacologic infusion, or recovery. There was no complaint of chest discomfort during pharmacologic infusion or recovery. The patient was injected with 9.5 millicuries of technetium 99m Cardiolite and subsequently rest SPECT Cardiolite nuclear imaging was obtained in the horizontal long, vertical long, and short axis views. The patient underwent pharmacologic (Regadenoson) evaluation. The patient was injected with 31.1 millicuries of technetium 99m Cardiolite and subsequently stress SPECT Cardiolite nuclear imaging was obtained in the horizontal long, vertical long, and short axis views. A gated Cardiolite study at peak stress was obtained. The examination was stopped secondary to completion of protocol. Rest and stress SPECT Cardiolite nuclear imaging status post realignment, normalization, and attenuation correction demonstrate a small reversible perfusion defect of the apex. There is end systolic thickening and brightening. The gated Cardiolite study demonstrates myocardial thickening and inward wall motion. The reported LVEF is 79%. Impression: 1. Pharmacologic (Regadenoson) evaluation 2. Peak pharmacologic ECG with no diagnostic changes. 3. There were no cardiac dysrhythmias pretest, during pharmacologic infusion, or recovery. 5. Small reversible perfusion defect of the apex suggestive of ischemia. Low risk positive stress test with less than 5% of the myocardium involved. 6. The gated Cardiolite study reports an LVEF of 79%. This note was generated with [employer]renn[employer] software. It may contain incorrect words, spelling, and punctuation that were not noted in checking the note before signing.
--- NOTE | 2024-04-21 13:43 | CHAPLAIN ---
Type of Pastoral Visit _x__ Initial Visit ___ Follow-up Visit ___ On-call Visit ___ General Patient Visit ___ Spiritual Assessment ___ Family Conference ___ Bereavement ___ Rapid Response ___ Code Blue ___ Other (describe below) Pastoral Care Referral From _x__ Patient ___ Family ___ Nurse ___ Physician ___ Web Page Designer ___ Terrazzo Journeyman ___ Other (describe below) Sacrament/Intervention _x__ Active listening ___ Anointing ___ Sikhism ___ Bereavement ___ Communion ___ Bindu exploration ___ _x__ Life review _x__ Prayer ___ Reconciliation ___ Sacrament of Sick ___ Supportive presence ___ Wedding ___ Other (describe below) Pastoral Comments patient and spouse are in the room; pt states that she is just waiting on test results and is somewhat anxious to get the answers; pt is planning to go on a cruise later this week and wants to be able to do so; pt is pleasant and welcoming of a prayer and presence given
--- NOTE | 2024-04-21 14:02 | CASEMGMT ---
Met with patient to complete DOOLEY form. DOOLEY form explained to patient who voiced understanding and signed form. Original form placed in pt?s chart and copy provided to patient. Tami Becker, Discharge Planning Asst
--- NOTE | 2024-04-21 14:07 | PCM.PN.HOSP ---
Reason for Visit Reason for Visit: Diagnoses Chest pain, unspecified (04/20/24) Objective Data Objective Data Vital Signs: Vital Signs Temp Pulse Resp BP Pulse Ox O2 Del Method 98.2 F 46 L 16 120/73 96 Room Air 04/21/24 10:00 04/21/24 10:00 04/21/24 10:00 04/21/24 10:00 04/21/24 11:56 04/21/24 11:56 Oxygen Delivery Method Room Air Weight: 90.4 kg Body Mass Index (BMI) 32.1 Lab / Micro Data 04/20/24 07:43 04/20/24 07:43 Labs: Laboratory Results - last 24 hr 04/20/24 16:39: POC Glucose 300 H 04/20/24 21:54: POC Glucose 233 H 04/21/24 06:34: POC Glucose 230 H 04/21/24 10:39: POC Glucose 290 H Radiography Diagnostic Testing: Radiology Impression Echocardiogram 04/20/24 11:53 Interpretation Summary The left ventricular ejection fraction is 75 %. Mild mitral annular calcification. Mild focal mitral valve calcification, bileaflet. Hypermobile atrial septum. Suspect a small pericardial sac. Recommend CT scan for further evaluation. Ordering Physician: Javier Nash Referring Physician: MOHSEN LINDA Performed By: Inez Kearns RCS Rhythm Strip Rhythm Strip: Sinus Rhythm Rate: 45 Ectopy: None
--- NOTE | 2024-04-21 16:11 | DS.PCM_ITS ---
Providers Date of Admission: 04/20/24 Date of Discharge: 04/21/24 Primary Care Physician: Dr. Redd Carney MD Consultations 04/21/24 13:29 Consult: Cardiology Routine Consulting Provider: Alfredo Squires Reason for Consult: abnormal stress test, signif cardiac hx w/ stenting, eval for cath EMERGENT Consult: No MD Notified: Yes Date Notified: 04/21/24 Time Notified: 13:38 Method of Notification: Text Reason For Visit: CHEST PAIN Diagnosis Discharge Diagnosis (1) Chest pain, unspecified: Status: Acute Code(s): R07.9 - Chest pain, unspecified Medications at Discharge Home Medications ascorbate calcium (vitamin C) 500 mg tablet 500 mg PO DAILY 10/26/21 red yeast rice 600 mg capsule 600 mg PO DAILY 10/26/21 pregabalin 150 mg capsule 150 mg PO BID 02/27/22 cholecalciferol (vitamin D3) 25 mcg (1,000 unit) capsule 25 mcg PO DAILY 06/04/22 metformin 500 mg tablet 1,000 mg PO BID 01/21/23 aspirin 81 mg tablet,delayed release (Adult Aspirin Regimen) 81 mg PO DAILY 05/18/23 citalopram 40 mg tablet 40 mg PO DAILY 05/18/23 Handicap Placard #1 ea 06/05/23 albuterol sulfate 90 mcg/actuation aerosol inhaler 1 puff inhalation Q6H PRN shortness of breath or wheezing #6.7 grams 07/24/23 magnesium 250 mg tablet 250 mg PO BID 09/03/23 clopidogrel 75 mg tablet 75 mg PO .COMPLEX #90 tabs 12/10/23 fenofibrate nanocrystallized 145 mg tablet 145 mg PO DAILY #90 tabs 12/10/23 furosemide 40 mg tablet 40 mg PO .COMPLEX #30 tabs 12/10/23 isosorbide mononitrate 30 mg tablet,extended release 24 hr 30 mg PO DAILY #90 tabs 12/10/23 isosorbide mononitrate 60 mg tablet,extended release 24 hr 60 mg PO DAILY #90 tabs 12/10/23 metoprolol succinate 25 mg tablet,extended release 24 hr 12.5 mg (1/2 x 25 mg) PO DAILY #45 tabs 12/10/23 nitroglycerin 0.4 mg sublingual tablet 0.4 mg sublingual Q5-15M PRN chest pain #25 tabs 06/25/24 pantoprazole 40 mg tablet,delayed release 40 mg PO BID #180 tabs 12/10/23 ranolazine 1,000 mg tablet,extended release,12 hr 1,000 mg PO BID #180 tabs 12/10/23 prednisone 10 mg tablet 10 mg PO DAILY 04/20/24 Hospital Course Operations None Procedures EKG, Nuclear stress test, Transthoracic echo and - (Chest x-ray) Summary of Care Provided Minutes Spent on Discharge: 35 Hospital Course: Patient is a 69-year-old female who presented [facility] ED on 04/20/2024 with chest pain. Short hospital course as below. Patient discharged home in stable condition on 04/21. 1. Chest pain ? Cardiology followed. Presented with chest pressure and dyspnea with exertion in setting of history as noted below. EKG and cardiac enzymes unremarkable. TTE showed EF 75%, no other concerning findings, stable from previous. Stress test showed only a 5% area of ischemia. Per cardiology, no need for further invasive evaluation. Suspected that patient's significant life stressors could be contributing to her chest pain on admission. Continue home aspirin, Plavix, fenofibrate, nitrate, Ranexa and Toprol on discharge. Outpatient follow-up with cardiology in the next 2 to 4 weeks. 2. Sinus bradycardia ? History of persistent sinus bradycardia with heart rate in the 40s to 50s. Remained stable during this hospitalization with adequate blood pressures. Per cardiology, okay to continue home Toprol 12.5 mg daily on discharge. 3. History of CAD s/p CABG and stenting, hypertension, hyperlipidemia, chronic HFpEF ? Follow outpatient with [facility]. Last intervention was in April 2023, had 3 stents placed at that time. Continue home medications on discharge with outpatient follow-up with cardiology soon as noted above. Chronic medical conditions: ? Obesity: BMI 32 on admit. Complicated hospital course, care and prognosis. ? Anxiety/depression: Did report slightly worsened anxiety on admission due to life stressors. Continue home citalopram. Recommend outpatient follow-up with PCP for further medication changes if needed. ? GERD: Continue home PPI. ? Mild intermittent asthma: Continue home inhalers as needed. ? Type 2 diabetes mellitus: Continue home metformin. ? CKD stage III: Creatinine stable at baseline during hospitalization. ? Neuropathy: Continue home pregabalin. Total clinical time spent by myself addressing the patient's medical issues, reviewing all the data, and collaborating with patient's care team: 35 minutes. Physical Exam Const alert, oriented x3, no apparent distress, healthy appearing and well nourished General Appearance: cooperative, comfortable, well kempt and well developed HEENT normocephalic, head/scalp atraumatic, hearing grossly normal bilaterally, nasal mucous membranes and turbinates normal and moist oral mucous membranes Eyes PERRL, EOMs intact bilaterally and conjunctivae normal Neck full ROM Chest inspection of chest normal Resp normal respiratory effort, normal air movement, no use of accessory muscles and clear to auscultation bilaterally Cardio no murmurs and peripheral pulses 2+ throughout Cardio Narrative: Bradycardic, regular rhythm. GI normal to inspection, nondistended, normoactive bowel sounds, soft to palpation, non-tender and non-distended Back/Spine normal ROM Extremity normal to inspection, full ROM and no pedal edema Skin no rashes or lesions noted Psych mental status grossly normal Weight / BMI Weight Weight: 90.4 kg Body Mass Index (BMI) 32.1 ABG / Lab / Microbiology Data 04/20/24 07:43 04/20/24 07:43 Laboratory: Laboratory Results - last 24 hr 04/20/24 16:39: POC Glucose 300 H 04/20/24 21:54: POC Glucose 233 H 04/21/24 06:34: POC Glucose 230 H 04/21/24 10:39: POC Glucose 290 H Meaningful Use Info Meaningful Use Meaningful Use Diagnoses (Choose all that apply): None applicable Ischemic Stroke Statin Dosing Therapy Reference: STATIN DOSE THERAPY REFERENCE: * Patients > 75 years receive moderate or high dose statin therapy. * Patients 75 years or YOUNGER should receive HIGH intensity statin dose unless contraindicated. You will be required to document reason for non-treatment if statin daily dose does not meet guidelines. HIGH DOSE STATIN THERAPY DAILY Atorvastatin > than or = to 40 mg Rosuvastatin > than or = to 20 mg Amlodipine + Atorvastatin > than or = to 2.5/40 mg Ezetimibe + Simvastatin 10/80 mg Simvastatin 80mg Discharge Plan Admission Admit Date/Time: 04/20/24 11:18 Primary Reason for Your Visit: Chest pain with dizziness Attending Provider: Helio Yuen Primary Care Provider: Redd Carney Consulting Providers: Javier Nash; Alfredo Squires Discharge Orders/Prescriptions Prescriptions: Continued red yeast rice 600 mg capsule 600 mg PO DAILY Rx Instructions: give with meal/snack ascorbate calcium (vitamin C) 500 mg tablet 500 mg PO DAILY pregabalin 150 mg capsule 150 mg PO BID Patient Comments: TAKE 1 CAPSULE BY MOUTH TWICE DAILY FOR 30 DAYS (TAKE ONE CAPSULE AT DINNER AND ONE CAPSULE BEFORE BED) cholecalciferol (vitamin D3) 25 mcg (1,000 unit) capsule 25 mcg PO DAILY magnesium 250 mg tablet 250 mg PO BID (DME) Handicap Placard See Rx Instructions .Route .MEDSUPPLY Qty: 1 0RF Rx Instructions: As directed Expires 06/05/2028 metformin 500 mg tablet 1,000 mg PO BID aspirin [Adult Aspirin Regimen] 81 mg tablet,delayed release (DR/EC) 81 mg PO DAILY citalopram 40 mg tablet 40 mg PO DAILY prednisone 10 mg tablet 10 mg PO DAILY Patient Comments: taper was 30mg qd x3d, 20mg qd x3d, then 10mg qd x3d. pt states she is on the 10mg qd dose now albuterol sulfate 90 mcg/actuation HFA aerosol inhaler 1 puff INHALATION Q6H PRN (Reason: shortness of breath or wheezing) Qty: 6.7 0RF isosorbide mononitrate 60 mg tablet extended release 24 hr 60 mg PO DAILY Qty: 90 3RF fenofibrate nanocrystallized 145 mg tablet 145 mg PO DAILY Qty: 90 3RF metoprolol succinate 25 mg tablet extended release 24 hr 12.5 mg PO DAILY Qty: 45 3RF furosemide 40 mg tablet 40 mg PO .COMPLEX Qty: 30 6RF Rx Instructions: 40 mg orally once daily X 3 days a week, then keep extra for as needed use for swelling, weight gain or shortness of breath; ranolazine 1,000 mg tablet extended release 12 hr 1,000 mg PO BID Qty: 180 3RF clopidogrel 75 mg tablet 75 mg PO .COMPLEX Qty: 90 3RF Rx Instructions: Take 1 tablet by mouth daily nitroglycerin 0.4 mg tablet, sublingual 0.4 mg sublingual Q5-15M PRN (Reason: chest pain) Qty: 25 3RF Rx Instructions: do not exceed 3 doses per episode isosorbide mononitrate 30 mg tablet extended release 24 hr 30 mg PO DAILY Qty: 90 3RF Rx Instructions: Adding to her 60mg isosorbide to equal 90mg daily pantoprazole 40 mg tablet,delayed release (DR/EC) 40 mg PO BID Qty: 180 3RF Referrals / Follow Up: Redd Carney MD [Primary Care Provider] - Disposition Disposition (needs filled in before D/C Order can be placed): Home, Self Care Charges/Coding Visit Charges Inpatient E&M: 99655 Disch Hosp >30min
--- NOTE | 2024-04-21 16:11 | PCM.CONS.C ---
Assessment & Plan Assessment/Plan (1) Chest pain, unspecified: QUALIFIERS: Chest pain type: other chest pain Qualified Code(s): R07.89 - Other chest pain PLAN: Patient's chest discomfort is not consistent with angina. She has negative troponins x 3 sets in the single digits. She is under tremendous amount of stress in the home environment and the symptoms are very similar to when she presented with significant stress in May 2023. I do not feel that further invasive evaluation is indicated given the less than 5% ischemia noted on the pharmacologic stress test, the lack of any elevated troponins, the lack of any EKG changes consistent with ischemia. (2) Bradycardia: PLAN: Patient is heart rate has been in the mid 40s on low-dose metoprolol 12.5 mg daily. She has been on this dose in the home environment and I feel that this is appropriate given her significant stressful situation. The patient denies any syncope or near syncope. Should she develop dizziness or near syncope I would stop the metoprolol. (3) Atherosclerosis of coronary artery: QUALIFIERS: Coronary Disease-Associated Artery/Lesion type: bypass graft [place] vs. transplanted heart: [place] heart Associated angina: without angina Qualified Code(s): I25.810 - Atherosclerosis of coronary artery bypass graft(s) without angina pectoris PLAN: Patient has diffuse atherosclerotic disease last intervention was April 2023. At that time she had a revision of the stented areas in the vein graft to the distal right coronary artery. Her YATES to the LAD and radial graft to the circumflex are known to be chronically occluded. The patient's left main trunk was patent and her LAD had been previously stented in the proximal portion and mid segment that had a 40 to 50% stenosis. The circumflex was patent had a 25 to 30% proximal stenosis. The [place] right coronary artery is chronically totally obstructed. This was from the catheterization April 2023. PLAN: Plan 1. Recommend continue current medical therapy. 2. Should the patient develop dizziness would recommend discontinuing the beta-alexandra. 3. The patient should follow-up in the [facility] office in the next 2 to 4 weeks. 4. At this point in time I do not feel that his pertinent to pursue a CAT scan to definitively define this possible pericardial cyst. HPI Consult Data Date of Consult: 04/21/24 HPI Narrative Reason for Consultation: Chest Pain HPI Narrative: ELSAPEREZ PUGH, is a 69 F who presents with chest discomfort that is reminiscent to her presentation she had back in May 2023. This is somewhat atypical and right sided. Historically when she had had issues with coronary insufficiency she had primarily developed shortness of breath and left-sided chest discomfort. Her last intervention was done April 2023 and shortly after that she presented to the emergency department with atypical chest pains identical to what she has now in cardiac issues were ruled out. Her troponins on this admission are single digits x 3 sets. Her EKG does not show any acute ischemic changes she does have sinus bradycardia. She is on beta-alexandra low-dose therapy. The patient had a pharmacologic nuclear stress test done today which showed less than 5% of her myocardium to be ischemic at the apex. She also had an echocardiogram done which showed her EF to be 75% with normal atria and a hypermobile atrial septum with no evidence of PFO. She had trace mitral regurgitation and trace aortic insufficiency. There was a small pericardial cyst cyst that could explain the defect on the stress test. It was not described exactly where the small cyst was located. The patient feels back to baseline and is requesting to be discharged to home. Given her lack of any EKG changes, the resolution of her chest symptoms, the troponin has been in single digits x 3 sets, and the extreme stressful home environment I do not feel that further invasive evaluation is indicated at this point in time. The patient is status post remote CABG in 2001 where she received an internal mammary artery to the left anterior descending radial artery of the first obtuse marginal branch of the circumflex and sequential vein graft to the posterior descending artery and posterior ventricular branch of the right coronary artery. Her YATES and radial grafts are known to be chronically totally obstructed. In her vein graft to the right coronary has been intervened upon multiple times with stents the last time was April 29, 2023 at [facility]. The patient is currently on nitrates beta-alexandra and Ranexa. She is also on long-term clopidogrel and aspirin. [facility] Medical History COVID Concussion Hiatal hernia Wears glasses Post-menopausal Alcohol use Ambulates with cane Diabetes Arthritis Rheumatoid arthritis High cholesterol Anemia Acute kidney failure Restless legs Back pain Injury of back Migraine headache Injury of head and neck Blackout Difficulty swallowing Difficulty chewing History of diverticulitis Gastric reflux Former smoker CPAP (continuous positive airway pressure) dependence Sleep apnea Shortness of breath on exertion History of echocardiogram History of stress test Cardiology follow-up encounter History of heart attack History of irregular heartbeat Chest pain Imbalance Headache Epigastric pain Lymphedema Restless legs syndrome (RLS) Anxiety and depression Iron deficiency anemia Proliferative diabetic retinopathy Peripheral neuropathy Obesity Hyperhomocystinemia Narcolepsy GERD (gastroesophageal reflux disease) Atherosclerotic heart disease of [place] coronary artery without angina pectoris Atherosclerosis of coronary artery 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 Essential hypertension Hyperlipidemia Obstructive sleep apnea Type 2 diabetes mellitus Home Medications ?Medication ?Instructions ?Recorded ?Last Taken ?Type ascorbate calcium (vitamin C) 500 500 mg PO DAILY 10/26/21 04/19/24 History mg tablet red yeast rice 600 mg capsule 600 mg PO DAILY 10/26/21 04/20/24 History pregabalin 150 mg capsule 150 mg PO BID 02/27/22 04/19/24 History cholecalciferol (vitamin D3) 25 25 mcg PO DAILY 06/04/22 04/19/24 History mcg (1,000 unit) capsule metformin 500 mg tablet 1,000 mg PO BID 01/21/23 04/20/24 History aspirin 81 mg tablet,delayed 81 mg PO DAILY 05/18/23 04/20/24 History release (Adult Aspirin Regimen) citalopram 40 mg tablet 40 mg PO DAILY 05/18/23 04/20/24 History Handicap Placard #1 ea 06/05/23 Unknown Rx albuterol sulfate 90 mcg/actuation 1 puff inhalation Q6H PRN 07/24/23 04/15/24 Rx aerosol inhaler shortness of breath or wheezing #6.7 grams magnesium 250 mg tablet 250 mg PO BID 09/03/23 04/19/24 History clopidogrel 75 mg tablet 75 mg PO .COMPLEX #90 tabs 12/10/23 04/20/24 Rx fenofibrate nanocrystallized 145 145 mg PO DAILY #90 tabs 12/10/23 04/20/24 Rx mg tablet furosemide 40 mg tablet 40 mg PO .COMPLEX #30 tabs 12/10/23 Unknown Rx isosorbide mononitrate 30 mg 30 mg PO DAILY #90 tabs 12/10/23 04/20/24 Rx tablet,extended release 24 hr isosorbide mononitrate 60 mg 60 mg PO DAILY #90 tabs 12/10/23 04/20/24 Rx tablet,extended release 24 hr metoprolol succinate 25 mg 12.5 mg (1/2 x 25 mg) PO DAILY #45 12/10/23 04/20/24 Rx tablet,extended release 24 hr tabs nitroglycerin 0.4 mg sublingual 0.4 mg sublingual Q5-15M PRN chest 12/10/23 04/20/24 Rx tablet pain #25 tabs pantoprazole 40 mg tablet,delayed 40 mg PO BID #180 tabs 12/10/23 04/20/24 Rx release ranolazine 1,000 mg 1,000 mg PO BID #180 tabs 12/10/23 04/20/24 Rx tablet,extended release,12 hr prednisone 10 mg tablet 10 mg PO DAILY 04/20/24 04/20/24 History Allergy/AdvReac Type Severity Reaction Status Date / Time aspirin Allergy Rash Verified 04/20/24 07:40 banana Allergy Hives Verified 04/20/24 07:40 canagliflozin (From Invokana) Allergy Anaphylaxis Verified 04/20/24 07:40 kiwi Allergy Hives Verified 04/20/24 07:40 niacin Allergy Rash Verified 04/20/24 07:40 Penicillins (PCN) Allergy Hives Verified 04/20/24 07:40 Sulfa (Sulfonamide Allergy Hives Verified 04/20/24 07:40 Antibiotics) ticagrelor AdvReac Severe Severe Verified 04/20/24 07:40 nausea and vomiting doxycycline AdvReac Nausea/Vom/ Verified 04/20/24 07:40 Diarrhea erythromycin base (From AdvReac Other Verified 04/20/24 07:40 Staticin) ethyl alcohol (From Staticin) AdvReac Other Verified 04/20/24 07:40 gemfibrozil (From Lopid) AdvReac Other Verified 04/20/24 07:40 ibuprofen AdvReac Upset Verified 04/20/24 07:40 Stomach levofloxacin (From Levaquin) AdvReac Upset Verified 04/20/24 07:40 Stomach lisinopril AdvReac cough Verified 04/20/24 07:40 propoxyphene (From AdvReac Upset Verified 04/20/24 07:40 Darvocet-N) Stomach spironolactone AdvReac hyperkalemi Verified 04/20/24 07:40 a Btfbjek-SON-SfN Reductase AdvReac unknown Verified 04/20/24 07:40 Inhibitor (Hbvwebs-Ege-Xyp Reductase Inhibitor) tramadol AdvReac Other Verified 04/20/24 07:40 Family History Mother Heart disease Father Heart disease Diabetes Surgical History History of colonoscopy with polypectomy History of cataract surgery History of cholecystectomy History of left heart catheterization History of hysterectomy History of tonsillectomy H/O coronary artery bypass surgery (10/2001) History of coronary artery stent placement (04/30/23) Social History household members: spouse Smoking Status: Former smoker how long ago did patient quit smokin alcohol intake: current alcohol intake frequency: holidays/special occasions only Alcohol type: beer substance use type: does not use what type of physical activity do you participate in: walking frequency: 5-6 times per week ROS Constitutional Constitutional: Reports as per HPI Eyes Eyes: Reports systems reviewed and no addt'l complaints, except as documented ENT HEENT: Reports systems reviewed and no addt'l complaints, except as documented Cardiovascular Cardiovascular: Reports as per HPI Respiratory/Chest Respiratory/Chest: Reports as per HPI Gastrointestinal Gastrointestinal: Reports systems reviewed and no addt'l complaints, except as documented Genitourinary Genitourinary: Reports systems reviewed and no addt'l complaints, except as documented Musculoskeletal Musculoskeletal: Reports systems reviewed and no addt'l complaints, except as documented Integumentary Integumentary: Reports systems reviewed and no addt'l complaints, except as documented Neurologic Neurologic: Reports systems reviewed and no addt'l complaints, except as documented Psychiatric Psychiatric: Reports systems reviewed and no addt'l complaints, except as documented Endocrine Endocrinology: Reports systems reviewed and no addt'l complaints, except as documented Hematologic/Lymphatic Hematologic/Lymphatic: Reports systems reviewed and no addt'l complaints, except as documented Allergic/Immunologic Allergic/Immunologic: Reports systems reviewed and no addt'l complaints, except as documented Physical Exam Const alert and oriented x3 HEENT normocephalic Eyes EOMs intact bilaterally Neck no JVD and no carotid bruits Chest inspection of chest normal Resp normal respiratory effort and clear to auscultation bilaterally Cardio Rate: regular rate Rhythm: regular rhythm Heart Sounds: S1 normal and S2 normal; Negative for click, gallop, murmur or rub GI soft to palpation Extremity no pedal edema Skin no rashes or lesions noted Neuro Neuro Narrative: Alert and oriented x 3 Psych mental status grossly normal Risk Stratification Risk Stratification Applicable: Yes Age >/= 65: Yes >/= 3 CAD Risk Factors (HTN, HLD, DM, family hx of CAD, or current smoker): Yes Aspirin Use in the Past 7 Days: Yes Severe Angina (>/= episodes in 24 hours): No EKG ST Changes >/= 0.5mm: No Positive Cardiac Marker: No DARSHAN Risk Stratification Score: 3 DARSHAN % Risk: 13% Risk Charges/Coding Visit Charges Inpatient E&M: 41067 Init Hosp L3 Objective Data Vital Signs: Vital Signs Temp Pulse Resp BP Pulse Ox O2 Del Method 98.2 F 46 L 16 120/73 96 Room Air 04/21/24 10:00 04/21/24 10:00 04/21/24 10:00 04/21/24 10:00 04/21/24 11:56 04/21/24 11:56 Oxygen Delivery Method Room Air Weight: 199 lb 4.766 oz Body Mass Index (BMI) 32.1 Lab / Micro Data Attestation: I reviewed the patient's lab results. 04/20/24 07:43 04/20/24 07:43 Labs: Laboratory Results - last 24 hr 04/20/24 16:39: POC Glucose 300 H 04/20/24 21:54: POC Glucose 233 H 04/21/24 06:34: POC Glucose 230 H 04/21/24 10:39: POC Glucose 290 H Rhythm Strip Rhythm Strip: Sinus Rhythm Rate: 46 Ectopy: None Cardiology Labs/Tests Rhythm: EKG: ECHO: Stress Test: Cardiac Cath: PCI: CT Surgery: Holter monitor: EPS: PPM: CXR: Chest CT Scan:
[2024-04-21 17:07] LABS: Bedside Glucose 258 mg/dL (74-106)
== END 2024-04-21 19:00 | disposition home or self-care (01) ==
LOC: ED 11:11 → PCU 11:41
PROVIDERS: Admitting Provider Internal Medicine; Emergency Provider Emergency Medicine; PCP Family Medicine; Visit Provider Hospitalist
DX: R07.89 Other chest pain (principal); M06.9 Rheumatoid arthritis, unspecified; I13.0 Hypertensive heart and chronic kidney disease with heart failure and stage 1 through stage 4 chronic kidney disease, or unspecified chronic kidney disease; I50.32 Chronic diastolic (congestive) heart failure; E11.22 Type 2 diabetes mellitus with diabetic chronic kidney disease; E11.42 Type 2 diabetes mellitus with diabetic polyneuropathy; N18.30 Chronic kidney disease, stage 3 unspecified; I25.10 Atherosclerotic heart disease of native coronary artery without angina pectoris; J45.20 Mild intermittent asthma, uncomplicated; F41.9 Anxiety disorder, unspecified; Z95.5 Presence of coronary angioplasty implant and graft; Z79.84 Long term (current) use of oral hypoglycemic drugs; G47.33 Obstructive sleep apnea (adult) (pediatric); E66.9 Obesity, unspecified; E78.5 Hyperlipidemia, unspecified; Z68.32 Body mass index [BMI] 32.0-32.9, adult; R94.39 Abnormal result of other cardiovascular function study; K21.9 Gastro-esophageal reflux disease without esophagitis; Z79.02 Long term (current) use of antithrombotics/antiplatelets; Z87.891 Personal history of nicotine dependence; F41.8 Other specified anxiety disorders; E87.1 Hypo-osmolality and hyponatremia; Z79.899 Other long term (current) drug therapy; R00.1 Bradycardia, unspecified
CPT/HCPCS: 36415; 71045; 78452; 80048; 82962; 84484; 85025; 93005; 93017; 93306; 94668; 96374; 96375; 96376; 99221; 99284; A9500; Q9957; A4216; C8929; G0378; J2405; J2785

== ENCOUNTER 2024-11-03 13:43 | Emergency (ER) | payer MEDICARE, MEDICAID, SELFPAY ==
[2023-09-30 13:22] VITALS: BMI 33.1
[2024-11-03 13:43] VITALS: BP 177/51; PULSE 59; RESP 16; TEMP 36.4; O2SAT 94; BMI 33.6
--- NOTE | 2024-11-03 14:05 | EKG12_ITS ---
Test Reason : CP Blood Pressure : */* mmHG Vent. Rate : 51 BPM Atrial Rate : 51 BPM P-R Int : 172 ms QRS Dur : 100 ms QT Int : 496 ms P-R-T Axes : -1 39 -3 degrees QTcB Int : 457 ms Sinus bradycardia Nonspecific T wave abnormality Abnormal ECG Confirmed by CORINNE SON, ALIE ([id number]), business editor BARRY LOU ([id number]) on 11/04/2024 10:30:51 AM Referred By: FABRICIO/ARLETTE Confirmed By: ALIE SUN MD
[2024-11-03] MEDS: Ondansetron 4 MG/2 ML Vial IV (14:11)
--- NOTE | 2024-11-03 14:17 | ED.VIS.CHEST ---
HPI History of Present Illness Chief Complaint: Chest Pain Informant: patient Narrative Narrative: Presents by private vehicle leaving work. Right side chest discomfort started this morning intermittently at home. Awake and with no symptoms. At work had nausea vomiting x 1 no hematemesis. She reports history of four-vessel CABG 2003, she has had subsequent stents since then she states a total of 23 stents last time in April at [place]. 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 She is on aspirin and Plavix took her dose this morning.in addition, states 2 weeks ago follow-up regarding head injury has been having intermittent headaches since then. She has had a productive cough since then also. She also reports with the fall she has pain in her coccyx that is improving. She is able to ambulate. She did take 2 nitros at work stating it alleviated symptoms. Currently nauseated. No MIs with right-sided chest pains in the past. Prior Similar Symptoms: No PFSH PFSH Medical History Bradycardia Atherosclerosis of coronary artery COVID Concussion Hiatal hernia Wears glasses Post-menopausal Alcohol use Ambulates with cane Diabetes Arthritis Rheumatoid arthritis High cholesterol Anemia Acute kidney failure Restless legs Back pain Injury of back Migraine headache Injury of head and neck Blackout Difficulty swallowing Difficulty chewing History of diverticulitis Gastric reflux Former smoker CPAP (continuous positive airway pressure) dependence Sleep apnea Shortness of breath on exertion History of echocardiogram History of stress test Cardiology follow-up encounter History of heart attack History of irregular heartbeat Chest pain Imbalance Headache Epigastric pain Lymphedema Restless legs syndrome (RLS) Anxiety and depression Iron deficiency anemia Proliferative diabetic retinopathy Peripheral neuropathy Obesity Hyperhomocystinemia Narcolepsy GERD (gastroesophageal reflux disease) Atherosclerotic heart disease of [place] coronary artery without angina pectoris Atherosclerosis of coronary artery 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 Essential hypertension Hyperlipidemia Obstructive sleep apnea Type 2 diabetes mellitus Home Medications ?Medication ?Instructions ?Recorded ?Last Taken ?Type ascorbate calcium (vitamin C) 500 500 mg PO DAILY 10/26/21 04/19/24 History mg tablet red yeast rice 600 mg capsule 600 mg PO DAILY 10/26/21 04/20/24 History pregabalin 150 mg capsule 150 mg PO BID 02/27/22 04/19/24 History cholecalciferol (vitamin D3) 25 25 mcg PO DAILY 06/04/22 04/19/24 History mcg (1,000 unit) capsule aspirin 81 mg tablet,delayed 81 mg PO DAILY 05/18/23 04/20/24 History release (Adult Aspirin Regimen) citalopram 40 mg tablet 40 mg PO DAILY 05/18/23 04/20/24 History Handicap Placard #1 ea 06/05/23 Unknown Rx albuterol sulfate 90 mcg/actuation 1 puff inhalation Q6H PRN 07/24/23 04/15/24 Rx aerosol inhaler shortness of breath or wheezing #6.7 grams magnesium 250 mg tablet 250 mg PO BID 09/03/23 04/19/24 History fenofibrate nanocrystallized 145 145 mg PO DAILY #90 tabs 12/10/23 04/20/24 Rx mg tablet metoprolol succinate 25 mg 12.5 mg (1/2 x 25 mg) PO DAILY #45 12/10/23 04/20/24 Rx tablet,extended release 24 hr tabs pantoprazole 40 mg tablet,delayed 40 mg PO BID #180 tabs 12/10/23 04/20/24 Rx release ranolazine 1,000 mg 1,000 mg PO BID #180 tabs 08/12/24 Unknown Rx tablet,extended release,12 hr evolocumab 140 mg/mL subcutaneous 140 mg subcut Q2W 08/19/24 Unknown History pen injector (Suzanne Lawrence) sitagliptin phosphate 50 mg tablet 50 mg PO QDAY 08/19/24 Unknown History (Januvia) nitroglycerin 0.4 mg sublingual 0.4 mg sublingual Q5-15M PRN chest 09/22/24 Unknown Rx tablet pain #25 tabs amlodipine 5 mg tablet 5 mg PO DAILY #90 tabs 10/20/24 Unknown Rx isosorbide mononitrate 30 mg 30 mg PO DAILY 11/03/24 Unknown History tablet,extended release 24 hr isosorbide mononitrate 60 mg 60 mg PO DAILY 11/03/24 Unknown History tablet,extended release 24 hr metformin 1,000 mg tablet 1,000 mg PO BID 11/03/24 Unknown History Allergy/AdvReac Type Severity Reaction Status Date / Time aspirin Allergy Rash Verified 08/19/24 10:52 banana Allergy Hives Verified 08/19/24 10:52 canagliflozin (From Invokana) Allergy Anaphylaxis Verified 08/19/24 10:52 kiwi Allergy Hives Verified 08/19/24 10:52 niacin Allergy Rash Verified 08/19/24 10:52 Penicillins (PCN) Allergy Hives Verified 08/19/24 10:52 Sulfa (Sulfonamide Allergy Hives Verified 08/19/24 10:52 Antibiotics) ticagrelor AdvReac Severe Severe Verified 08/19/24 10:52 nausea and vomiting doxycycline AdvReac Nausea/Vom/ Verified 08/19/24 10:52 Diarrhea erythromycin base (From AdvReac Other Verified 08/19/24 10:52 Staticin) ethyl alcohol (From Staticin) AdvReac Other Verified 08/19/24 10:52 gemfibrozil (From Lopid) AdvReac Other Verified 08/19/24 10:52 ibuprofen AdvReac Upset Verified 08/19/24 10:52 Stomach levofloxacin (From Levaquin) AdvReac Upset Verified 08/19/24 10:52 Stomach lisinopril AdvReac cough Verified 08/19/24 10:52 propoxyphene (From AdvReac Upset Verified 08/19/24 10:52 Darvocet-N) Stomach spironolactone AdvReac hyperkalemi Verified 08/19/24 10:52 a Uuonyda-FUV-DaB Reductase AdvReac unknown Verified 08/19/24 10:52 Inhibitor (Ciyqnov-Tqm-Qob Reductase Inhibitor) tramadol AdvReac Other Verified 08/19/24 10:52 Family History Mother Heart disease Father Heart disease Diabetes Surgical History History of colonoscopy with polypectomy History of cataract surgery History of cholecystectomy History of left heart catheterization History of hysterectomy History of tonsillectomy H/O coronary artery bypass surgery (10/2001) History of coronary artery stent placement (04/30/23) Social History household members: spouse Smoking Status: Former smoker how long ago did patient quit smokin alcohol intake: current alcohol intake frequency: holidays/special occasions only Alcohol type: beer substance use type: does not use what type of physical activity do you participate in: walking frequency: 5-6 times per week ROS ROS ED Constitutional Constitutional ED: Denies chills, fever(s) or sweats ENT ENT ED: Denies sore throat Cardiovascular Cardiovascular: Reports chest pain; Denies leg edema, palpitations or racing heartbeat Respiratory/Chest Respiratory/Chest: Reports cough and dyspnea; Denies dyspnea on exertion Gastrointestinal Gastrointestinal: Reports nausea and vomiting; Denies abdominal pain or diarrhea Genitourinary Genitourinary ED: Denies dysuria, hematuria or urinary frequency Musculoskeletal Musculoskeletal: Reports other Details: Sacral pain ; Denies back pain, extremity pain or neck pain Integumentary Denies rash or wounds Neurologic Neurologic: Reports headache(s); Denies paresthesias or weakness EXAM Physical Exam Const Vital Signs: 11/03/24 13:43 11/03/24 13:43 11/03/24 14:43 Temperature 97.6 F L Temperature Source Temporal Pulse Rate 59 L 48 L Respiratory Rate 16 17 Respiratory Effort Normal Non-Labored Blood Pressure 177/51 H 128/57 H Blood Pressure Mean 93 80 Pulse Ox 94 95 Oxygen Delivery Method Room Air Room Air 11/03/24 16:00 11/03/24 17:00 11/03/24 17:00 Temperature 97.8 F Temperature Source Pulse Rate 53 L 59 L 59 L Respiratory Rate 19 H 16 16 Respiratory Effort Blood Pressure 135/58 H 135/58 H 135/58 H Blood Pressure Mean 83 83 83 Pulse Ox 92 99 99 Oxygen Delivery Method Room Air Positive well nourished and well developed Constitutional Narrative: GCS 15. General Appearance ED: well developed and NAD HEENT Reports moist mucous membranes HEENT Narrative: Residual soft tissue swelling right posterior crown no recurrent ecchymosis no lacerations. normocephalic Eyes General Eye ED: Yes normal appearance of both eyes Neck full ROM Chest Wall Chest: Negative for tenderness Resp normal respiratory effort and normal air movement Effort and Inspection: symmetric chest movement; Negative for respiratory distress Cardio regular rate, regular rhythm and no murmurs Peripheral Pulses: pulses 2+ throughout GI normal to inspection, nondistended, normoactive bowel sounds and non-tender Palpation: Negative for guarding or rebound tenderness present Back/Spine Back/Spine Narrative: No thoracic or lumbar tenderness. Tender palpation coccyx reproducible. No ecchymosis noted. Extremity normal to inspection General Extremety ED: Negative for edema or tenderness General Extremity: Negative for edema Neuro oriented x3, CN's II-XII intact bilaterally and no sensory deficits noted Sensorium / Orientation: awake and alert Skin no rashes or lesions noted and no wounds Heart Score History: Slightly/Non-Suspicious ECG: Normal Age: >/= 65 years Risk Factors: >/= 3 Risk Factors or History of CAD Troponin: </= Normal Limit Score: 4 MDM MDM MDM Narrative Medical decision making narrative: Interventions / MDM: Differential diagnosis: Atypical chest pain, concussion, contusions, viral upper respiratory infection Diagnosis considered but do not suspect: Intracranial hemorrhage however CT negative. Fracture several x-ray negative. Pneumonia however x-ray negative. My EKG interpretation: Sinus rate of 51, no ST changes, T wave versions anterior leads along flattening in leads III and V3. Similar to April 2024. Imaging independently reviewed and interpreted by myself: CT brain: No intracranial hemorrhage. 2 view chest x-ray: No acute process. 3 view sacrum: No fracture. Also read by radiology. External documents reviewed: N/A Test considered but not ordered:N/A ED course: Right-sided chest discomfort productive cough for 2 weeks had a head injury also 2 weeks ago. Headache since then. Coccyx pain. EKG chronic findings. Cardiac workup initiated. CT head, chest x-ray, sacral x-rays ordered. IV Zofran ordered for nausea symptoms. 1522: Image studies on negative initial troponin 10 creatinine stable at 1.24 hemoglobin 12.1 white count 11. Currently symptom-free. Will await delta troponin and reevaluate. 1652: Delta troponin negative. Being symptom-free. Discussed with patient 2 weeks of cough likely viral syndrome leading to symptoms with atypical chest pains. Her headache is from concussion symptoms from her head injury. She will follow-up as an outpatient. Return precautions discussed. All questions were answered. Re-evaluation: stable Disposition discussed with patient/family/significant other: Patient Case discussed with consulting clinician: N/A This note was generated with [employer] dictation software. It may contain incorrect words, spelling, and punctuation that were not noted in checking the note before signing. Lab Data Attestation: I reviewed the patient's lab results. Labs: Laboratory Results - last 24 hr 11/03/24 11/03/24 13:49 15:49 WBC 11.0 RBC 4.22 Hgb 12.1 Hct 37.1 MCV 87.9 MCH 28.7 MCHC 32.6 RDW Std Deviation 46.9 H RDW Coeff of Nancy 14.6 Plt Count 340 MPV 11.1 Immature Gran % (Auto) 0.600 Neut % (Auto) 69.8 Lymph % (Auto) 19.6 [place] % (Auto) 8.6 Eos % (Auto) 1.0 Baso % (Auto) 0.4 Absolute Neuts (auto) 7.7 Absolute Lymphs (auto) 2.15 Nucleated RBC % 0 Sodium 136 Potassium 4.5 Chloride 97 L Carbon Dioxide 24.9 Anion Gap 13 BUN 18 Creatinine 1.24 H Estim Creat Clear Calc 47.24 L Est GFR (MDRD) Non-Af 47 L BUN/Creatinine Ratio 14.4 Glucose 175 H Calcium 9.7 Troponin T High Sens 10 Troponin T Hi Sens 2 Hr 11 Radiography Diagnostic Testing: Clinical Impression(s) from Imaging Studies Brain CT 11/03/24 14:26 IMPRESSION: 1. No acute intracranial hemorrhage, midline shift or mass effect. If symptoms persist, further evaluation with MRI is recommended. 2. Mild small vessel ischemic/degenerative changes. Reading Location: [facility] Chest X-Ray 11/03/24 14:30 IMPRESSION: Heart size upper limits of normal. No acute abnormality is seen. Reading Location: [place] [address] Sacrum and Coccyx X-Ray 11/03/24 14:30 IMPRESSION: Mild degenerative changes of the sacroiliac joints. No fracture is seen. Reading Location: [place] [address] Discharge Plan Triage Chief Complaint: Chest Pain ED Provider: Jamal Salcedo Dx/Rx/DC Orders Clinical Impression: Viral URI with cough, Chest pain, Concussion, Contusion of sacrum Instructions: ED Chest Pain, Noncardiac, ED Concussion, ED Coccyx or Sacrum Contusion Prescriptions: No Action red yeast rice 600 mg capsule 600 mg PO DAILY Rx Instructions: give with meal/snack ascorbate calcium (vitamin C) 500 mg tablet 500 mg PO DAILY pregabalin 150 mg capsule 150 mg PO BID Patient Comments: TAKE 1 CAPSULE BY MOUTH TWICE DAILY FOR 30 DAYS (TAKE ONE CAPSULE AT DINNER AND ONE CAPSULE BEFORE BED) cholecalciferol (vitamin D3) 25 mcg (1,000 unit) capsule 25 mcg PO DAILY magnesium 250 mg tablet 250 mg PO BID (DME) Handicap Placard See Rx Instructions .Route .MEDSUPPLY Qty: 1 0RF Rx Instructions: As directed Expires 06/05/2028 Januvia 50 mg tablet 50 mg PO QDAY Repatha SureClick 140 mg/mL pen injector 140 mg subcut Q2W aspirin [Adult Aspirin Regimen] 81 mg tablet,delayed release (DR/EC) 81 mg PO DAILY citalopram 40 mg tablet 40 mg PO DAILY isosorbide mononitrate 30 mg tablet extended release 24 hr 30 mg PO DAILY Rx Instructions: 30 mg orally; Take with 60mg isosorbide to equal 90mg daily isosorbide mononitrate 60 mg tablet extended release 24 hr 60 mg PO DAILY Rx Instructions: 60 mg orally; Take with 30 mg isosorbide to equal 90mg daily metformin 1,000 mg tablet 1,000 mg PO BID albuterol sulfate 90 mcg/actuation HFA aerosol inhaler 1 puff INHALATION Q6H PRN (Reason: shortness of breath or wheezing) Qty: 6.7 0RF fenofibrate nanocrystallized 145 mg tablet 145 mg PO DAILY Qty: 90 3RF metoprolol succinate 25 mg tablet extended release 24 hr 12.5 mg PO DAILY Qty: 45 3RF pantoprazole 40 mg tablet,delayed release (DR/EC) 40 mg PO BID Qty: 180 3RF ranolazine 1,000 mg tablet extended release 12 hr 1,000 mg PO BID Qty: 180 3RF nitroglycerin 0.4 mg tablet, sublingual 0.4 mg sublingual Q5-15M PRN (Reason: chest pain) Qty: 25 3RF Rx Instructions: do not exceed 3 doses per episode amlodipine 5 mg tablet 5 mg PO DAILY Qty: 90 3RF Primary Care Provider: Redd Carney Referrals: Redd Carney MD [Primary Care Provider] - 1 Week Activity Restrictions/Additional Instructions: Your cardiac workup negative. CT brain negative. Sacral x-ray negative. Suspect your viral cough symptoms leading to your right sided chest pains. Concussion from your head injury. Use Tylenol 1 g every 6 hours as needed. Follow-up with your doctor. Print Language: Dominican Disposition Disposition: Home, Self Care Discharge Date/Time: 11/03/24 17:27
--- NOTE | 2024-11-03 14:26 | CT_ITS ---
EXAM: CT Head Without Intravenous Contrast CLINICAL INDICATION: HEAD INJURY TECHNIQUE: Axial computed tomography images of the head/brain without intravenous contrast. This CT exam was performed using one or more of the following dose reduction techniques: automated exposure control, adjustment of the mA and/or kV according to patient size, and/or use of iterative reconstruction technique. COMPARISON: No relevant prior studies available. FINDINGS: BRAIN AND EXTRA-AXIAL SPACES: No acute intracranial hemorrhage, midline shift or mass effect. If symptoms persist, further evaluation with MRI is recommended. Mild areas of decreased attenuation in the deep cerebral white matter are consistent with mild small vessel ischemic/degenerative changes. BONES/JOINTS: Unremarkable. No acute fracture. SOFT TISSUES: Unremarkable. SINUSES: Unremarkable as visualized. No acute sinusitis. MASTOID AIR CELLS: Unremarkable as visualized. No mastoid effusion. CT/Brain/Head without Contrast IMPRESSION: 1. No acute intracranial hemorrhage, midline shift or mass effect. If symptoms persist, further evaluation with MRI is recommended. 2. Mild small vessel ischemic/degenerative changes. Reading Location: [facility]
--- NOTE | 2024-11-03 14:30 | RAD_ITS ---
PROCEDURE: CHEST PA AND LATERAL 11/03/2024 REASON FOR EXAM: CP, COUGH TECHNIQUE: Frontal and lateral views of the chest. COMPARISON: None FINDINGS: Hardware: EKG electrodes are seen. Heart: Prior midline sternotomy and coronary artery bypass surgery. Heart size upper limits of normal. Mediastinum: The mediastinal contour is unremarkable. Lungs: The lungs are clear. Bones: The bones are unremarkable. RAD/Chest PA and Lateral IMPRESSION: Heart size upper limits of normal. No acute abnormality is seen. Reading Location: [place] [id number]
--- NOTE | 2024-11-03 14:30 | RAD_ITS ---
PROCEDURE: SACRUM-COCCYX MIN 2 VIEWS 11/03/2024 REASON FOR EXAM: INJURY TECHNIQUE: AP and lateral view(s) of the sacrum and coccyx. COMPARISON: None FINDINGS: Bones: Unremarkable Joints: Minimal degenerative changes. Other: RAD/Sacrum-Coccyx min 2 Views IMPRESSION: Mild degenerative changes of the sacroiliac joints. No fracture is seen. Reading Location: [facility]--[facility]
[2024-11-03 14:34] LABS: Absolute Lymphocyte Count 2.15 X10^3/uL (0.83-4.51); Absolute Neutrophil Count 7.7 X10^3/uL (2.0-7.7); Basophil# 0.04 X10^3/uL; Basophil% 0.4 % (0-1); Eosinophil# 0.11 X10^3/uL; Hematocrit 37.1 % (37-47); Hemoglobin 12.1 g/dL (12.0-15.0); Lymphocyte # 2.15 X10^3/ul (0.83-4.51); Lymphocyte % 19.6 % (19-41); Mean Corp Hgb Conc 32.6 g/dL (32-36); Mean Corpuscular Hgb 28.7 pg (27.0-32.0); Mean Corpuscular Volume 87.9 fL (81-99); Mean Platelet Vol. 11.1 fl (6.2-12.0); Monocyte# 0.94 X10^3/uL; Monocyte% 8.6 % (0-10); NRBC Flagged by Analyzer 0 % (0-5); Neutrophil # 7.68 X10^3/uL (2.7-7.7); Neutrophil % 69.8 % (47-70); Platelet Count 340 K/mm3 (150-450); RBC Distribution Width CV 14.6 % (11.6-14.6); RBC Distribution Width SD 46.9 fl (35.1-43.9); Red Blood Count 4.22 M/mm3 (4.2-5.4)
[2024-11-03 14:43] VITALS: BP 128/57; PULSE 48; RESP 17; O2SAT 95
[2024-11-03 15:18] LABS: Anion Gap 13 (5-15); BUN 18 mg/dL (4-19); BUN/Creat Ratio 14.4 RATIO (10-20); Calcium,Total 9.7 mg/dL (7.6-11.0); Carbon Dioxide 24.9 mmol/L (21.0-32.0); Chloride 97 mmol/L (98-108); Creatinine, Serum 1.24 mg/dL (0.70-1.20); EST Glomerular Filtration Rate 47 (>60); Estimated Creatinine Clearance 47.24 ml/min (50-250); Glucose 175 mg/dL (70-99); Potassium 4.5 mmol/L (3.3-5.1); Sodium Level 136 mmol/L (133-145); Troponin T High Sensitivity 10 ng/L (<=14)
[2024-11-03 16:00] VITALS: BP 135/58; PULSE 53; RESP 19; O2SAT 92
[2024-11-03 16:31] LABS: Troponin T High Sens 2 HR 11 ng/L (<=14)
[2024-11-03 17:00] VITALS: BP 135/58; PULSE 59; RESP 16; TEMP 36.6; O2SAT 99
== END 2024-11-03 17:27 | disposition home or self-care (01) ==
PROVIDERS: Emergency Provider Emergency Medicine; PCP Family Medicine; Visit Provider Emergency Medicine
DX: R07.9 Chest pain, unspecified (principal); E11.42 Type 2 diabetes mellitus with diabetic polyneuropathy; J06.9 Acute upper respiratory infection, unspecified; I25.10 Atherosclerotic heart disease of native coronary artery without angina pectoris; Z90.710 Acquired absence of both cervix and uterus; Z87.891 Personal history of nicotine dependence; S06.0X0A Concussion without loss of consciousness, initial encounter; I10 Essential (primary) hypertension; G47.33 Obstructive sleep apnea (adult) (pediatric); S30.0XXA Contusion of lower back and pelvis, initial encounter; R05.9 Cough, unspecified; Z95.1 Presence of aortocoronary bypass graft; Z79.82 Long term (current) use of aspirin; Z79.01 Long term (current) use of anticoagulants; W19.XXXA Unspecified fall, initial encounter; E78.00 Pure hypercholesterolemia, unspecified; Z99.89 Dependence on other enabling machines and devices; K21.9 Gastro-esophageal reflux disease without esophagitis; F41.8 Other specified anxiety disorders; Z79.84 Long term (current) use of oral hypoglycemic drugs; Z79.899 Other long term (current) drug therapy; Z90.49 Acquired absence of other specified parts of digestive tract; Z95.5 Presence of coronary angioplasty implant and graft; R11.2 Nausea with vomiting, unspecified
CPT/HCPCS: 70450; 71046; 72220; 80048; 84484; 85025; 93005; 96374; 99283; A4216; J2405

== ENCOUNTER → 2024-12-14 | Outpatient (CLI) | payer MEDICARE, MEDICAID, SELFPAY ==
[2023-09-30 13:22] VITALS: BMI 33.1
[2024-12-14 15:04] LABS: Mucous, Urine 0 SEEN /hpf (<or=2+); Red Blood Cells-Urine 0 SEEN /hpf (0-5)
[2024-12-14 16:26] LABS: Color, Urine Yellow (Yellow); Glucose, Dipstick 1000 mg/dl (Normal); Ketone-Dipstick Negative (Negative); Leukocyte Esterase-Dipstick 25 /ul (Negative); Nitrite-Dipstick Negative (Negative); Occult Blood-Urine Negative /ul (Negative); Protein-Dipstick 30 mg/dl (Negative); Urine Bilirubin Dipstick Negative (Negative); Urine Clarity Sl. Cloudy (Clear); Urine Urobilinogen Normal (Normal)
[2024-12-14 16:47] LABS: Anion Gap 12 (5-15); BUN 22 mg/dL (4-19); BUN/Creat Ratio 17.9 RATIO (10-20); Calcium,Total 9.9 mg/dL (7.6-11.0); Carbon Dioxide 28.8 mmol/L (21.0-32.0); Chloride 97 mmol/L (98-108); Creatinine, Serum 1.25 mg/dL (0.70-1.20); EST Glomerular Filtration Rate 46 (>60); Glucose 263 mg/dL (70-99); Sodium Level 138 mmol/L (133-145)
[2024-12-14 17:39] LABS: Bacteria RARE /hpf (None Seen); Squamous Epithelial Cells - UA 5-10 SEEN /hpf (5-10); White Blood Cells 5-10 SEEN /hpf (0-5)
== END | disposition home or self-care (01) ==
LOC: LAB 14:54
PROVIDERS: PCP Family Medicine; Referring Provider Nurse Practitioner Acute Care; Visit Provider Nurse Practitioner Acute Care
DX: R31.9 Hematuria, unspecified (principal); R10.9 Unspecified abdominal pain
CPT/HCPCS: 36415; 80048; 81001; 87086; 87088

== ENCOUNTER → 2025-01-13 | Outpatient (CLI) | payer MEDICARE, MEDICAID, SELFPAY ==
[2023-09-30 13:22] VITALS: BMI 33.1
== END | disposition home or self-care (01) ==
LOC: PSN 11:45
PROVIDERS: PCP Family Medicine; Referring Provider Nurse Practitioner Family; Visit Provider Nurse Practitioner Family
DX: R00.1 Bradycardia, unspecified (principal)
CPT/HCPCS: 93225; 93226

== ENCOUNTER 2025-01-21 13:31 | Emergency (ER) | payer MEDICARE, MEDICAID, SELFPAY ==
[2023-09-30 13:22] VITALS: BMI 33.1
[2025-01-21 13:32] VITALS: BP 162/70; PULSE 51; RESP 18; TEMP 36.6; O2SAT 99
[2025-01-21 15:04] VITALS: BMI 35.2
--- NOTE | 2025-01-21 15:04 | EX.ED.DYSGE1 ---
HPI <ALEJANDRA Howe - Last Filed: 01/21/25 17:16> History of Present Illness Chief Complaint: Anxiety Narrative Narrative: 69-year-old female presents with increased anxiety over the last few days. She states she has a history of anxiety and has been on citalopram for years but she has been very stressed recently because her sister is an alcoholic and came to hospital for rehab but then left AMA. Patient feels like her thoughts are racing and she cannot settle down. She has not been sleeping well. She is not suicidal or homicidal. She sees a primary care doctor but has not established with a counselor or mental health provider as she states her symptoms have never been like this in the past. PFS <ALEJANDRA Howe - Last Filed: 01/21/25 17:16> [facility] Medical History Bradycardia Atherosclerosis of coronary artery COVID Concussion Hiatal hernia Wears glasses Post-menopausal Alcohol use Ambulates with cane Diabetes Arthritis Rheumatoid arthritis High cholesterol Anemia Acute kidney failure Restless legs Back pain Injury of back Migraine headache Injury of head and neck Blackout Difficulty swallowing Difficulty chewing History of diverticulitis Gastric reflux Former smoker CPAP (continuous positive airway pressure) dependence Sleep apnea Shortness of breath on exertion History of echocardiogram History of stress test Cardiology follow-up encounter History of heart attack History of irregular heartbeat Chest pain Imbalance Headache Epigastric pain Lymphedema Restless legs syndrome (RLS) Anxiety and depression Iron deficiency anemia Proliferative diabetic retinopathy Peripheral neuropathy Obesity Hyperhomocystinemia Narcolepsy GERD (gastroesophageal reflux disease) Atherosclerotic heart disease of [place] coronary artery without angina pectoris Atherosclerosis of coronary artery 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 Essential hypertension Hyperlipidemia Obstructive sleep apnea Type 2 diabetes mellitus Home Medications ?Medication ?Instructions ?Recorded ?Last Taken ?Type ascorbate calcium (vitamin C) 500 500 mg PO DAILY 10/26/21 04/19/24 History mg tablet red yeast rice 600 mg capsule 600 mg PO DAILY 10/26/21 04/20/24 History pregabalin 150 mg capsule 150 mg PO BID 02/27/22 04/19/24 History cholecalciferol (vitamin D3) 25 25 mcg PO DAILY 06/04/22 04/19/24 History mcg (1,000 unit) capsule aspirin 81 mg tablet,delayed 81 mg PO DAILY 05/18/23 04/20/24 History release (Adult Aspirin Regimen) citalopram 40 mg tablet 40 mg PO DAILY 05/18/23 04/20/24 History Handicap Placard #1 ea 06/05/23 Unknown Rx albuterol sulfate 90 mcg/actuation 1 puff inhalation Q6H PRN 07/24/23 04/15/24 Rx aerosol inhaler shortness of breath or wheezing #6.7 grams magnesium 250 mg tablet 250 mg PO BID 09/03/23 04/19/24 History fenofibrate nanocrystallized 145 145 mg PO DAILY #90 tabs 12/10/23 04/20/24 Rx mg tablet evolocumab 140 mg/mL subcutaneous 140 mg subcut Q2W 08/19/24 Unknown History pen injector (Suzanne Lawrence) sitagliptin phosphate 50 mg tablet 50 mg PO QDAY 08/19/24 Unknown History (Januvia) isosorbide mononitrate 30 mg 30 mg PO DAILY 11/03/24 Unknown History tablet,extended release 24 hr isosorbide mononitrate 60 mg 60 mg PO DAILY 11/03/24 Unknown History tablet,extended release 24 hr metformin 1,000 mg tablet 1,000 mg PO BID 12/16/24 Unknown History amlodipine 10 mg tablet 10 mg PO DAILY #90 tabs 12/24/24 Unknown Rx nitroglycerin 0.4 mg sublingual 0.4 mg sublingual Q5-15M PRN chest 12/24/24 Unknown Rx tablet pain #25 tabs pantoprazole 40 mg tablet,delayed 40 mg PO BID #180 tabs 12/24/24 Unknown Rx release clopidogrel 75 mg tablet 75 mg PO QDAY #90 tabs 01/13/25 Unknown Rx furosemide 40 mg tablet (Lasix) 40 mg PO DAILY #90 tabs 01/13/25 Unknown Rx ranolazine 1,000 mg 1,000 mg PO BID #180 tabs 01/13/25 Unknown Rx tablet,extended release,12 hr Allergy/AdvReac Type Severity Reaction Status Date / Time aspirin Allergy Rash Verified 01/21/25 13:37 banana Allergy Hives Verified 01/21/25 13:37 canagliflozin (From Invokana) Allergy Anaphylaxis Verified 01/21/25 13:37 kiwi Allergy Hives Verified 01/21/25 13:37 niacin Allergy Rash Verified 01/21/25 13:37 Penicillins (PCN) Allergy Hives Verified 01/21/25 13:37 Sulfa (Sulfonamide Allergy Hives Verified 01/21/25 13:37 Antibiotics) ticagrelor AdvReac Severe Severe Verified 01/21/25 13:37 nausea and vomiting doxycycline AdvReac Nausea/Vom/ Verified 01/21/25 13:37 Diarrhea gemfibrozil (From Lopid) AdvReac Other Verified 01/21/25 13:37 ibuprofen AdvReac Upset Verified 01/21/25 13:37 Stomach levofloxacin (From Levaquin) AdvReac Upset Verified 01/21/25 13:37 Stomach lisinopril AdvReac cough Verified 01/21/25 13:37 propoxyphene (From AdvReac Upset Verified 01/21/25 13:37 Darvocet-N) Stomach spironolactone AdvReac hyperkalemi Verified 01/21/25 13:37 a Sptoief-ZZM-PsL Reductase AdvReac unknown Verified 01/21/25 13:37 Inhibitor (Jqlfveg-Aqa-Ehp Reductase Inhibitor) tramadol AdvReac Other Verified 01/21/25 13:37 Family History Mother Heart disease Father Heart disease Diabetes Surgical History History of colonoscopy with polypectomy History of cataract surgery History of cholecystectomy History of left heart catheterization History of hysterectomy History of tonsillectomy H/O coronary artery bypass surgery (10/2001) History of coronary artery stent placement (04/30/23) Social History household members: spouse Smoking Status: Former smoker how long ago did patient quit smokin alcohol intake: current alcohol intake frequency: holidays/special occasions only Alcohol type: beer details: 4-6oz of red wine daily substance use type: marijuana what type of physical activity do you participate in: walking frequency: 5-6 times per week ROS <ALEJANDRA Howe - Last Filed: 01/21/25 17:16> ROS ED ROS Narrative Constitutional: Negative for fever, chills, malaise. CVS: Negative for palpitations, chest pain. Respiratory: Negative for shortness of breath. GI: Negative for abdominal pain, nausea, vomiting. EXAM <ALEJANDRA Howe - Last Filed: 01/21/25 17:16> Physical Exam Narrative Exam Narrative: CONST: Patient sitting in no acute distress. EYES: Normal inspection. NECK: Normal inspection. RESP: No respiratory distress, CTAB. CVS: Regular rate and rhythm, no murmur, no gallop. SKIN: Color normal, no rash, warm, dry, intact. EXTREMITIES: Normal appearance, no pedal edema. NEURO: Alert and answering questions appropriately. PSYCH: Makes eye contact, insightful, occasionally tearful. Const Vital Signs: 01/21/25 13:32 01/21/25 16:26 Temperature 97.9 F 97.9 F Temperature Source Oral Pulse Rate 51 L 78 Respiratory Rate 18 15 Blood Pressure 162/70 H 141/61 H Blood Pressure Mean 100 87 Pulse Ox 99 97 Oxygen Delivery Method Room Air <Dr. Kai Hernandez DO - Last Filed: 01/21/25 19:36> Physical Exam Const Vital Signs: 01/21/25 13:32 01/21/25 16:26 Temperature 97.9 F 97.9 F Temperature Source Oral Pulse Rate 51 L 78 Respiratory Rate 18 15 Blood Pressure 162/70 H 141/61 H Blood Pressure Mean 100 87 Pulse Ox 99 97 Oxygen Delivery Method Room Air MDM <ALEJANDRA Howe - Last Filed: 01/21/25 17:16> [facility] Narrative Medical decision making narrative: Consults: Social work 69-year-old female presents with acute anxiety due to recent stressors with her own personal health issues and family health issues.. She is not suicidal or homicidal. She is tearful but seems to have good insight into her situation and is acting appropriately. She was given p.o. Ativan and I consulted social work. Both myself and the social services designee do not think she requires inpatient mental health treatment. She was provided resources for outpatient counseling and discharged in stable condition. History & Record Review Discussion w/independent historian: Patient and Family <Dr. Kai Hernandez DO - Last Filed: 01/21/25 19:36> [facility] Narrative Medical decision making narrative: Consults: Social work 69-year-old female presents with acute anxiety due to recent stressors with her own personal health issues and family health issues.. She is not suicidal or homicidal. She is tearful but seems to have good insight into her situation and is acting appropriately. She was given p.o. Ativan and I consulted social work. Both myself and the social services designee do not think she requires inpatient mental health treatment. She was provided resources for outpatient counseling and discharged in stable condition. Supervisory Physician Note Patient was seen and examined with the Advanced Practice Provider. Nursing notes and vital signs have been reviewed. Pertinent old records have been reviewed. I agree with the essential elements of the MARTHA's history, physical exam, assessment, and plan. The differential diagnosis and management options were discussed with the MARTHA. I participated in determining and agree with the management, procedures, final impression and disposition as documented. See changes noted by me. Please see addendum or separate note for any additional details. 69-year-old female with past medical of anxiety presents for evaluation of anxiety. Patient states she has been stressed recently due to her sister which is causing increased anxiety. associated symptom is insomnia. Patient states her anxiety worsened today which is why she presents. She states she needs something to calm her down. She denies any suicidal or homicidal ideation. Denies any visual or auditory hallucinations. She follows with a PCP but does not see a mental health provider. She denies any fever, chills, shortness of breath, chest pain abdominal pain, nausea, vomiting Gen: A&O x3, NAD but anxious Head: Normocephalic, atraumatic Eyes: No sclera icterus, conjunctiva clear, PERRL, EOMI ENT: Moist mucous membranes Neck: Trachea midline, No JVD CV: RRR, no murmurs, no peripheral edema Resp: Lungs CTA BL, no w/r/c GI: Abd soft, non-distended, non-tender, no r/r/g Musc: Full ROM, no deformity Skin: Warm, dry Neuro: Alert, oriented, grossly intact, sensation intact Psych: Cooperative, anxious and occasionally tearful, insightful 69-year-old female with past medical history of anxiety presents due to anxiety reaction. Has been under a lot of stress. She is not suicidal or homicidal. No paranoia. No visual or auditory hallucinations. Do not think any laboratory workup or imaging is needed. Patient has good insight to her situation. Patient offered Ativan for anxiety and consented. P.o. Ativan ordered. Social work consulted. Patient does not require any inpatient psychiatric facility placement. Patient was given outpatient resources. Patient stable to discharge home. Return precautions explained. Impression: 1. Anxiety reaction Discharge Plan Triage Chief Complaint: Anxiety ED Midlevel Provider: Gauri [place] ED Provider: Kai Hernandez Dx/Rx/DC Orders Clinical Impression: Anxiety Instructions: Anxiety Disorders Tx Prescriptions: No Action red yeast rice 600 mg capsule 600 mg PO DAILY Rx Instructions: give with meal/snack ascorbate calcium (vitamin C) 500 mg tablet 500 mg PO DAILY pregabalin 150 mg capsule 150 mg PO BID Patient Comments: TAKE 1 CAPSULE BY MOUTH TWICE DAILY FOR 30 DAYS (TAKE ONE CAPSULE AT DINNER AND ONE CAPSULE BEFORE BED) cholecalciferol (vitamin D3) 25 mcg (1,000 unit) capsule 25 mcg PO DAILY magnesium 250 mg tablet 250 mg PO BID (DME) Handicap Placard See Rx Instructions .Route .MEDSUPPLY Qty: 1 0RF Rx Instructions: As directed Expires 06/05/2028 Januvia 50 mg tablet 50 mg PO QDAY Repatha SureClick 140 mg/mL pen injector 140 mg subcut Q2W metformin 1,000 mg tablet 1,000 mg PO BID furosemide [Lasix] 40 mg tablet 40 mg PO DAILY Qty: 90 3RF ranolazine 1,000 mg tablet extended release 12 hr 1,000 mg PO BID Qty: 180 3RF clopidogrel 75 mg tablet 75 mg PO QDAY Qty: 90 3RF aspirin [Adult Aspirin Regimen] 81 mg tablet,delayed release (DR/EC) 81 mg PO DAILY citalopram 40 mg tablet 40 mg PO DAILY isosorbide mononitrate 30 mg tablet extended release 24 hr 30 mg PO DAILY Rx Instructions: 30 mg orally; Take with 60mg isosorbide to equal 90mg daily isosorbide mononitrate 60 mg tablet extended release 24 hr 60 mg PO DAILY Rx Instructions: 60 mg orally; Take with 30 mg isosorbide to equal 90mg daily albuterol sulfate 90 mcg/actuation HFA aerosol inhaler 1 puff INHALATION Q6H PRN (Reason: shortness of breath or wheezing) Qty: 6.7 0RF fenofibrate nanocrystallized 145 mg tablet 145 mg PO DAILY Qty: 90 3RF amlodipine 10 mg tablet 10 mg PO DAILY Qty: 90 3RF nitroglycerin 0.4 mg tablet, sublingual 0.4 mg sublingual Q5-15M PRN (Reason: chest pain) Qty: 25 3RF Rx Instructions: do not exceed 3 doses per episode pantoprazole 40 mg tablet,delayed release (DR/EC) 40 mg PO BID Qty: 180 3RF Stand Alone Forms: ED Work / School Excuse Primary Care Provider: Redd Carney Referrals: Redd Carney MD [Primary Care Provider] - Activity Restrictions/Additional Instructions: Follow-up with the counseling resources provided by the social services designee. If you have worsening symptoms or feel suicidal please come back to the ER immediately. Print Language: Romansh Disposition Disposition: Home, Self Care Discharge Date/Time: 01/21/25 16:27
[2025-01-21 16:26] VITALS: BP 141/61; PULSE 78; RESP 15; TEMP 36.6; O2SAT 97
--- NOTE | 2025-01-21 19:27 | CM.ED ---
Social Work Patient presented to ED with increased anxiety and tearfulness. Patient denies any suicidal or homicidal ideations, denies auditory or visual hallucinations. Patient reports to increased stress in her life due to personal health issues and multiple family issues. Patient reports that she has been increasingly depressed but over the last day and a half, she has been crying and unable to stop. Patient reports that she is currently on an antidepressant but does not see a counselor or psychiatrist. SW discussed outpatient options that included inpatient and virtual counseling, PHP, and IOP both in person and virtual. Resources given for all. SW also ran a list of local counselors that took patients insurance. Patient thankful for resources and stated she felt she would start with individual counseling. Emotional support provided. No further needs identified at this time. Sanyd Espinosa, FINANCIAL ASSISTANCE SPECIALIST, DETAIL DRAFTER
== END 2025-01-21 16:27 | disposition home or self-care (01) ==
PROVIDERS: Emergency Provider Surgery; PCP Family Medicine; Visit Provider Surgery
DX: F41.1 Generalized anxiety disorder (principal); E11.42 Type 2 diabetes mellitus with diabetic polyneuropathy; I25.10 Atherosclerotic heart disease of native coronary artery without angina pectoris; G47.33 Obstructive sleep apnea (adult) (pediatric); Z86.16 Personal history of COVID-19; Z87.891 Personal history of nicotine dependence; Z95.5 Presence of coronary angioplasty implant and graft; Z95.1 Presence of aortocoronary bypass graft
CPT/HCPCS: 99282

== ENCOUNTER 2025-02-03 05:12 | Day surgery (SDC) | payer MEDICARE, MEDICAID, SELFPAY ==
[2023-09-30 13:22] VITALS: BMI 33.1
--- NOTE | 2025-02-02 06:06 | PAT.ANE_ITS ---
Pre-Assessment Diagnosis/Proposed Procedure Planned Operative Procedure(s): EGD Anesthesia History Anesthesia History - interlibrary loan specialist: Anesthesia History - interlibrary loan specialist Hx Hospitalization Yes: APR 2024- 02/01/25 14:18 [facility] Any Problems With Anesthesia No 02/01/25 14:18 Cholinesterase deficiency No 02/01/25 14:18 You/Your Family Experience Yes: MOTHER DURING HEART 02/01/25 14:18 fever (hyperthermia) with SURGERY Relationship Recent Exposure to Contagious No 06/27/23 11:02 Disease Does patient have nerve No 02/01/25 14:18 stimulator Patient instructed to have device shut off --Does patient have Pacemaker or ICD? When Was Last Pacemaker Check QUESTION #4 FULL TEXT: You/Your Family Experience fever (hyperthermia) with Anesthesia Last Oral Intake Last Oral intake: Last Oral Intake NPO since Meds taken in AM with sips of water? Meds patient instructed to take am of surgery PONV PONV - interlibrary loan specialist: PONV - interlibrary loan specialist Female Yes 02/01/25 14:18 HX of Motion Sickness No 02/01/25 14:18 HX of N/V After Surgery No 02/01/25 14:18 Non-Smoker Yes 02/01/25 14:18 Duration of Surgery greater No 02/01/25 14:18 than 60 minutes Number of Risk Factors 2 02/01/25 14:18 PONV Score Moderate Risk 02/01/25 14:18 Height & Weight Height & Weight: Anesthesia: Height & Weight Height 5 ft 5 in 12/16/24 13:00 Respiratory Assessment Respiratory Assessment - interlibrary loan specialist: Respiratory Tract Infection Hx - interlibrary loan specialist Hx Respiratory Tract Infection No 02/01/25 14:18 STOP Sleep Apnea STOP Sleep Apnea - interlibrary loan specialist: STOP Sleep Apnea - interlibrary loan specialist Hx Hypertension Yes 02/01/25 14:18 Hx Sleep Apnea Yes 02/01/25 14:18 CPAP Yes 02/01/25 14:18 BIPAP No 02/01/25 14:18 Do you snore loudly (louder than talking or can be heard Do you often feel tired/ fatigued/ sleepy during daytime? Has anyone observed you stop breathing during sleep? STOP Results Positive 02/01/25 14:18 QUESTION #5 FULL TEXT : Do you snore loudly (louder than talking or can be heard through closed doors)? 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 Specify any problems Hx of Preganancy in last 3 No 02/01/25 14:18 Months Nurse Filling Out Transfusion [email or web address] 02/01/25 14:18 & Questions: Date: 02/01/25 02/01/25 14:18 Time: 14:23 02/01/25 14:18 Patient unable to answer at this time (ie. confused, unrespo /Reproduction History /Reproductive History - interlibrary loan specialist: /Reproductive Hx- interlibrary loan specialist Hx Now Gestational Age (in weeks): EDC: Hx Hx Para Hx Section SAB PFSH Medical History (Updated 02/01/25 @ 14:28 by Dhaval Griggs) Marijuana use Low iron History of Holter monitoring Bradycardia Atherosclerosis of coronary artery COVID Concussion Hiatal hernia Wears glasses Post-menopausal Alcohol use Ambulates with cane Diabetes Arthritis Rheumatoid arthritis High cholesterol Anemia Acute kidney failure Restless legs Back pain Injury of back Migraine headache Injury of head and neck Blackout Difficulty swallowing Difficulty chewing History of diverticulitis Gastric reflux Former smoker CPAP (continuous positive airway pressure) dependence Sleep apnea Shortness of breath on exertion History of echocardiogram History of stress test Cardiology follow-up encounter History of heart attack History of irregular heartbeat Chest pain Imbalance Headache Epigastric pain Lymphedema Restless legs syndrome (RLS) Anxiety and depression Iron deficiency anemia Proliferative diabetic retinopathy Peripheral neuropathy Obesity Hyperhomocystinemia Narcolepsy GERD (gastroesophageal reflux disease) Atherosclerotic heart disease of [place] coronary artery without angina pectoris Atherosclerosis of coronary artery 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 Essential hypertension Hyperlipidemia Obstructive sleep apnea Type 2 diabetes mellitus Home Medications ?Medication ?Instructions ?Recorded ?Last Taken ?Type ascorbate calcium (vitamin C) 500 500 mg PO DAILY 10/1504/19/24 History mg tablet red yeast rice 600 mg capsule 600 mg PO DAILY 10/26/21 04/20/24 History pregabalin 150 mg capsule 150 mg PO BID 02/27/2204/19 History cholecalciferol (vitamin D3) 25 25 mcg PO DAILY 04/19/24 History mcg (1,000 unit) capsule aspirin 81 mg tablet,delayed 81 mg PO DAILY 05/18/2306/20/23 History release (Adult Aspirin Regimen) citalopram 40 mg tablet 40 mg PO DAILY 05/18/2310/08 History Handicap Placard #1 ea 06/05/23 Unknown Rx albuterol sulfate 90 mcg/actuation 1 puff inhalation Q 6H PRN 07/24/23 04/15/24 Rx aerosol inhaler shortness of breath or [place] ing #6.7 grams magnesium 250 mg tablet 250 mg PO BID 09/03/2304/19 History fenofibrate nanocrystallized 145 145 mg PO DAILY #90 t abs 12/10/23 04/20/24 Rx mg tablet evolocumab 140 mg/mL subcutaneous 140 mg subcut Q2W 02/01/25 History pen injector (Suzanne Lawrence) sitagliptin phosphate 50 mg tablet 50 mg PO QDAY 08/19 Unknown History (Januvia) isosorbide mononitrate 30 mg 30 mg PO DAILY 11/03/24 U nknown History tablet,extended release 24 hr isosorbide mononitrate 60 mg 60 mg PO DAILY 11/03/24 U nknown History tablet,extended release 24 hr metformin 1,000 mg tablet 1,000 mg PO BID 12/16/24 Unk nown History amlodipine 10 mg tablet 10 mg PO DAILY #90 tabs 12/15 Unknown Rx nitroglycerin 0.4 mg sublingual 0.4 mg sublingual Q5-1 5M PRN chest 12/24/24 Unknown Rx tablet pain #25 tabs pantoprazole 40 mg tablet,delayed 40 mg PO BID #180 ta bs 12/24/24 Unknown Rx release clopidogrel 75 mg tablet 75 mg PO QDAY #90 tabs 01/13 Unknown Rx furosemide 40 mg tablet (Lasix) 40 mg PO DAILY #90 tab s 01/13/25 Unknown Rx ranolazine 1,000 mg 1,000 mg PO BID #180 tabs Unknown Rx tablet,extended release,12 hr buspirone 5 mg tablet 5 mg PO TID PRN PRN anxiety 02/01/25 Unknown History Allergy/AdvReac Type Severity Reaction Status Date / Time aspirin Allergy Rash Verified 02/01/25 14:13 banana Allergy Hives Verified 02/01/25 14:13 canagliflozin (From Invokana) Allergy Anaphylaxis Verified 02/01/25 14:13 kiwi Allergy Hives Verified 02/01/25 14:13 niacin Allergy Rash Verified 02/01/25 14:13 Penicillins (PCN) Allergy Hives Verified 02/01/25 14:13 Sulfa (Sulfonamide Allergy Hives Verified 02/01/25 14:13 Antibiotics) ticagrelor AdvReac Severe Severe Verified 02/01/25 14:13 nausea and vomiting doxycycline AdvReac Nausea/Vom/ Verified 02/01/25 14:13 Diarrhea gemfibrozil (From Lopid) AdvReac Other Verified 02/01/25 14:13 ibuprofen AdvReac Upset Verified 02/01/25 14:13 Stomach levofloxacin (From Levaquin) AdvReac Upset Verified 02/01/25 14:13 Stomach lisinopril AdvReac cough Verified 02/01/25 14:13 propoxyphene (From AdvReac Upset Verified 02/01/25 14:13 Darvocet-N) Stomach spironolactone AdvReac hyperkalemi Verified 02/01/25 14:13 a Ldzruqn-XNY-WoI Reductase AdvReac unknown Verified 02/01/25 14:13 Inhibitor (Gukstin-Sbl-Rxe Reductase Inhibitor) tramadol AdvReac Other Verified 02/01/25 14:13 Family History Mother Heart disease Father Heart disease Diabetes Surgical History (Updated 02/01/25 @ 14:28 by Dhaval Griggs) History of colonoscopy with polypectomy History of cataract surgery History of cholecystectomy History of left heart catheterization History of hysterectomy History of tonsillectomy H/O coronary artery bypass surgery (10/2001) History of coronary artery stent placement (04/30/23) Social History household members: spouse Smoking Status: Former smoker how long ago did patient quit smokin alcohol intake: current alcohol intake frequency: holidays/special occasions only Alcohol type: beer details: 4-6oz of red wine daily substance use type: marijuana what type of physical activity do you participate in: walking frequency: 5-6 times per week Audit: Pertinent Findings Pertinent Findings EKG Perinent findings: December 16, 2024. Sinus bradycardia 47 bpm. Unchanged from October 2024. November 03, 2024. Sinus bradycardia. Nonspecific T wave abnormality. Stress test pertinent findings: April 21, 2024. EF of 79%. Small reversible perfusion defect of the apex suggestive of ischemia. Low risk positive stress test with less than 5% of the myocardium involved. Echo (EF%) pertinent findings: 04/20/2024. Dr. Simmons. EF of 75%. No aortic stenosis is noted. Consult pertinent findings: 01/13/2025. Birdie MCKEON. 1. Chest pain-most recent stress test April 2024 was negative for ischemia. Troponins in the ED was negative. Heart cath was discussed but patient wishes to wait until noncardiac testing including EGD is completed. 2. Atherosclerosis coronary arteries-history of stenting to the RCA in 1997. Multiple stents since then. Bypass surgery in 2001. Cardiac cath April 2023 demonstrated severe in-stent restenosis within the SVG to the RPDA. Underwent successful PCI with 3 DAYANNA on 05/01/2023. Currently on maximum dose Ranexa with isosorbide and amlodipine. Cardiac cath is recommended. She wishes to wait until after EGD. 3. Hypertension well-controlled Additional pertinent findings: Holter monitor. 08/08/2023. Normal sinus rhythm with rare PVCs/PACs. Recommendation Anesthesia Recommendation Anesthesia recommendation: OPTIMIZED for anesthesia
[2025-02-03] VITALS (7 sets, daily range): BP systolic 97–152; BP diastolic 3–65; PULSE 46–49; RESP 16–18; TEMP 36.4–36.8; O2SAT 92–98; BMI 34.1
--- OUTSIDE RECORDS SUMMARY | 2025-02-03 05:20 | XMS RPT_ITS | CCD ---
Author Organization [facility] Care Team Providers Care Motel Keeper Name Role Phone Carlos Clarke Unavailable [phone] MaatoEryn vidalmad F Unavailable Unavailable Michael Ahmad F Unavailable Unavailable Mick Abreu Unavailable Unavailable Mick Abreu Unavailable Unavailable MASOOD SANCHEZ Admitting Unavailabl e CARLOS CLARKE Primary Care Unavailable Carlos Clarke Primary Care Provider Janel Serrano Unavailable Unavailable Carlos Clarke Unavailable Unavailable Carlos Clarke Unavailable Unavailable Carlos Clarke Primary Care Provider RAISA RAO Attending Unavailable CARLOS CLARKE Primary Care Unavailable RAISA RAO Attending Unavailable CARLOS CLARKE Primary Care Unavailable Carlos Clarke Unavailable Unavailable Unavailable Carlos Clakre MD Primary Care Provider [phone] Carlos Clarke Referring Provider Dr. Dot Garces Primary Care Provider Dr. Dot Garces Attending Provider Dr. Dot Garces Primary Care Provider Dr. Dot Garces Attending Provider [phone] Dr. Dot Garces Referring Provider [phone] Dr. Blake Zaman Attending Provider [phone] ALEJANDRA aPrker Attending Provider Unavailab le Dr. Blake Zaman Other Provider Carlos Clarke MD Primary Care Provider Unavailable Unavailable Carlos Clarke MD Primary Care Provider Dr. Dot Garces Primary Care Provider Dr. Dot Garces Attending Provider [phone] Birdie STUD SETTER, STUD SETTER-C Trenton Chisholm Attending Provider Carlos Clarke MD Primary Care Provider Dr. Dot Garces Primary Care Provider Dr. Dot Garces Referring Provider [phone] Birdie STUD SETTER, STUD SETTER-C Trenton Chisholm Attending Provider Dr. Blake Zaman Attending Provider Dr. Dot Garces Attending Provider [phone] Carlos Clarke MD Primary Care Provider [phone] Carlos Clarke MD Primary Care Provider Dr. Dot Garces Primary Care Provider Dr. Dot Garces Referring Provider [phone] Edy STUD SETTER, STUD SETTER-C Sofy Attending Provider Dr. Redd Linda Primary Care Provider Dr. Larry Osorio Attending Provider Gabriela Linda MD Primary Care Provider Dr. Redd Linda Primary Care Provider [phone] Dr. Redd Linda Referring Provider Edy BUTLER, STUD SETTER-C Sofy Attending Provider Dr. Usha Santos Emergency Provider Dr. Chris Edge Admit Provider Dr. Chris Edge Attending Provider Dr. Chris Edge Other Provider Dr. Joan Mai Other Provider Dr. Joan Mai Attending Provider Dr. Helio Yuen Other Provider Dr. Lanre Luis Attending Provider Maddi SON, Gabriela Primary Care Provider CHRIS LICONA Attending Unavailable VAIHSALI, CHRIS Consulting Unavailable CHRIS LICONA Admitting Unavailable MADDI, GABRIELA Primary Care Unavailable LANRE LUIS Referring Unavailable MADDI, GABRIELA Referring Unavailable MADDI, CHRISTOPHMARTIN Primary Care Unavailable RADHIKA BUSTAMANTE Attending Unavailable Dr. Larry Osorio Attending Provider [phone] Larry Osorio Referring Provider Dr. Helio Yuen Attending Provider Dr. Nacho Helm Emergency Provider Dr. Dima Henriquez Emergency Provider Dr. Alpa Cooney Admit Provider Dr. Alpa Cooney Other Provider Dr. Hugo Alcaraz Attending Provider Dr. Redd Linda Primary Care Provider Dr. Redd Linda Referring Provider Edy BUTLER, SHERRYC Sofy Attending Provider Dr. Helio Yuen Referring Provider Dr. Helio Yuen Referring Provider Vince SON, Carlos Garrett Primary Care Provider Dr. Redd Linda Primary Care Provider Dr. Redd Linda Referring Provider Edy BUTLER, STUD SETTER-C Sofy Attending Provider Dr. Larry Osorio Attending Provider Dr. Dima Henriquez Emergency Provider Dr. Alpa Cooney Admit Provider Eros, Dr. Alpa Jacobs Other Provider Dr. Helio Yuen Attending Provider Dr. Helio Yuen Other Provider Dr. Helio Yuen Referring Provider Kieran, Dr. Arias Attending Provider Birdie STUD SETTER, STUD SETTER-C Trenton Chisholm Attending Provider Gabriela Linda MD Primary Care Provider Dr. Redd Linda Primary Care Provider [phone] Dr. Redd Linda Referring Provider Edy BUTLER, STUD SETTER-C Sofy Attending Provider Podlogar GUIDE DOG TRAINER.NUTRITION CLUB AMBASSADORAnay Unavailable Knoble GUIDE DOG TRAINER.Eyad GRANT Unavailable Knoble GUIDE DOG TRAINER.NUTRITION CLUB AMBASSADOREyad Unavailable Dr. Redd Linda MD Referring Provider [phone] Trenton Blevins Attending Provider Dr. Redd Linda MD Primary Care Provider Dr. Jamal Salcedo DO Emergency Provider Knoble GUIDE DOG TRAINER.Eyad GRANT Unavailable Dr. Jamal Salcedo DO Attending Provider Arnold BUTLER-CUsha Attending Provider Arnold BUTLER-CUsha Referring Provider Dr. Redd Linda MD Referring Provider [phone] Birdie BUTLER-CTrenton Attending Provider Roof STUD SETTERMargueriteCTrenton Referring Provider [phone] Devon SON, Dr. Juarez Attending Provider [phone] ArletteDr. Kai Lawrence DO Emergency Provider BAYLEE COLIN Attending Unavailable SELF Referring Unavailable GABRIELA LINDA Primary Care Unavailab MALLORY Dumont Referring Unavailable TRENTON SEAMAN Attending Unavailable GABRIELA LINDA Primary Care Unavailab le GABRIELA LINDA Primary Care Unavailab le PRESTON, CARMENCITA Referring Unavailable GABRIELA LINDA B Primary Care Unavailab EYAD Mejia Attending Unavailable PODLOGAR, ANAY Referring Unavailable GABRIELA LINDA Primary Care Unavailab SYDNI Scanlon Attending Unavailable PODLOGAR, ANAY Referring Unavailable GABRIELA LINDA B Primary Care Unavailab le PODLOGAR, ANAY Referring Unavailable GABRIELA LINDA Primary Care Unavailab le PODLOGAR, ANAY Referring Unavailable GABRIELA LINDA B Primary Care Unavailab le PODLOGAR, ANAY Referring Unavailable GABRIELA LINDA B Primary Care Unavailab le GABRIELA LINDA B Referring Unavailab le GABRIELA LINDA B Primary Care Unavailab le PRESTON, CARMENCITA Attending Unavailable GABRIELA LINDA B Primary Care Unavailab le PRESTON, CARMENCITA Referring Unavailable PODLOGAR, ANAY Referring Unavailable GABRIELA LINDA B Primary Care Unavailab JUSTICE Gomez Attending Unavailable GABRIELA LINDA B Primary Care Unavailab RITA Webb Attending Unavailable GABRIELA LINDA Referring Unavailab le PODLOGAR, ANAY Attending Unavailable GABRIELA LINDA B Primary Care Unavailab le PODLOGAR, ANAY Referring Unavailable GABRIELA LINDA B Primary Care Unavailab le PODLOGAR, ANAY Referring Unavailable GABRIELA LINDA B Primary Care Unavailab le PODLOGAR, ANAY Attending Unavailable GABRIELA LINDA B Primary Care Unavailab le PODLOGAR, ANAY Attending Unavailable GABRIELA LINDA Primary Care Unavailab le GABRIELA LINDA Attending Unavailab le GABRIELA LINDA Primary Care Unavailab le SELF Referring Unavailable GABRIELA LINDA Referring Unavailab le GABRIELA LINDA Primary Care Unavailab le PODLOGAR, ANAY Attending Unavailable GABRIELA LINDA Primary Care Unavailab le GABRIELA LINDA Attending Unavailab le GABRIELA LINDA Primary Care Unavailab le PODLOGAR, ANAY Referring Unavailable GABRIELA LINDA Primary Care Unavailab le JOSE LINDAER Bhavani Primary Care Unavailab EYAD Mejia Attending Unavailable PODLOGAR, ANAY Attending Unavailable GABRIELA LINDA Primary Care Unavailab le PODLOGAR, ANAY Attending Unavailable GABRIELA LINDA Primary Care Unavailab le GABRIELA LINDA Referring Unavailab le PODLOGAR, ANAY Referring Unavailable GABRIELA LINDA Primary Care Unavailab le GABRIELA LINDA Referring Unavailab le GABRIELA LINDA Primary Care Unavailab MERVIN Dobbs Attending Unavailable SELF Referring Unavailable GABRIELA LINDA Primary Care Unavailab RITA Webb Attending Unavailable GABRIELA LINDA Primary Care Unavailab le PODLOGAR, ANAY Referring Unavailable GABRIELA LINDA Primary Care Unavailab le GABRIELA LIDNA Attending Unavailab GABRIELA Hammond Primary Care Unavailab le GABRIELA LINDA Referring Unavailab le GABRIELA LINDA Primary Care Unavailab le PODLOGAR, ANAY Attending Unavailable GABRIELA LINDA Primary Care Unavailab le PODLOGAR, ANAY Attending Unavailable GABRIELA LINDA Primary Care Unavailab le GABRIELA LINDA Referring Unavailab le GABRIELA LINDA Primary Care Unavailab Laila David Attending Unavailable Ganeshley, Redd Primary Care Unavailable Helio Yuen Attending Unavailable Javier Nash Consulting Unavailable Javier Nash Admitting Unavailable Maddi, Redd Primary Care Unavailable Alfredo Squires Consulting Unavailable Redd Linda Referring Unavailable Hugo Alcaraz Attending Unavailable Maddi, Redd Primary Care Unavailable Javier Nash Admitting Unavailable Javier Nash Consulting Unavailable Laila Simmons Attending Unavailable Ganeshley, Redd Primary Care Unavailable Helio Yuen Consulting Unavailable Maddi, Redd Referring Unavailable Usha Barrett Attending Unavailable Bursley, Redd Primary Care Unavailable Roof STUD SETTER, Trenton H Attending Unavailable Bursley, Redd Referring Unavailable Bursley, Redd Primary Care Unavailable Roof STUD SETTER, Trenton H Attending Unavailable Bursley, Redd Referring Unavailable Bursley, Redd Primary Care Unavailable Bursley, Redd Primary Care Unavailable Bursley, Redd Referring Unavailable Roof STUD SETTER, Trenton H Attending Unavailable Roof STUD SETTER, Trenton H Attending Unavailable Bursley, Redd Referring Unavailable Devon, [place] Attending Unavailable Bursley, Redd Primary Care Unavailable Roof STUD SETTER, Trenton H Referring Unavailable Devon, Larry Attending Unavailable Bursley, Redd Referring Unavailable Bursley, Redd Primary Care Unavailable Javier Nash Attending Unavailable Helio Yuen Attending Unavailable Alfredo Squires Unavailable ArnoldUsha Referring Unavailable ArnoldUsha spears Attending Unavailable Bursley, Redd Primary Care Unavailable Roof STUD SETTER, Trenton H Attending Unavailable Bursley, Redd Primary Care Unavailable Roof STUD SETTER, Trenton H Referring Unavailable Kai Hernandez Attending Unavailabl e Bursley, Redd Primary Care Unavailable Jamal Salcedo Attending Unavailable Bursley, Redd Primary Care Unavailable Allergies Allergy Classification Reported Allergen(s) Allergy Type Date of Onset Reaction(s) Facility Amoxicillin / Clavulanate (8 sources) Amoxicillin / Clavulanate; Translations: [Augmentin] Drug Allergy 07-05-19 06 GI Upset [facility] Work Phone: Angiotensin Converting Enzyme (DAVID) Inhibitors (20 sources) benazepril; Translations: [benazepril] Drug Allergy 09-21-19 06 Cough, Unknown [facility] Work Phone: Aspirin (6 sources) Aspirin; Translations: [aspirin] Drug Allergy [facility] Work Phone: Bananas (6 sources) banana Food Allergy Hives [facility] Work Phone: Belladonna Alkaloids (2 sources) Belladonna Alkaloids Drug Allergy 01-06-20 09 Intolerance [facility] Work Phone: canagliflozin (6 sources) canagliflozin; Translations: [Invokana TABS] Drug Allergy Itching [facility] Work Phone: Carbidopa (2 sources) Carbidopa Drug Allergy 07-05-19 06 [facility] Doxycycline (2 sources) Doxycycline Drug Allergy 05-07-20 23 Other: See Comments [facility] Gemfibrozil (8 sources) Gemfibrozil; Translations: [Lopid] Drug Allergy 07-05-19 06 Myalgia [facility] Work Phone: glimepiride (6 sources) glimepiride; Translations: [glimepiride] Drug Allergy Nausea [facility] Work Phone: HMG-CoA Reductase Inhibitors (statins) (6 sources) Hmg-Coa Reductase Inhibitors (Statins); Translations: [Statins] Drug Allergy Myalgia [facility] Work Phone: modafinil (2 sources) modafinil Drug Allergy 08-08-19 18 Mental Status Change [facility] Work Phone: Niacin (10 sources) Niacin; Translations: [niacin] Drug Allergy 07-05-19 06 Rash [facility] Work Phone: NSAIDs (8 sources) Ibuprofen; Translations: [ibuprofen] Drug Allergy 07-05-19 06 Rash [facility] Work Phone: Opioid Agonists (8 sources) traMADol; Translations: [tramadol] Drug Allergy 02-11-20 14 Other: See Comments [facility] Work Phone: Penicillins (antibiotic) (8 sources) Penicillins; Translations: [Penicillins] Drug Allergy 02-11-20 14 Hives [facility] Work Phone: Phenylbutazone (2 sources) Phenylbutazone Drug Allergy 05-07-20 23 Unknown [facility] Work Phone: Proton Pump Inhibitors (6 sources) Omeprazole; Translations: [omeprazole] Drug Allergy [facility] Work Phone: Quinolones (antibiotic) (8 sources) levoFLOXacin; Translations: [Levaquin] Drug Allergy 02-11-20 14 Other: See Comments [facility] Work Phone: Sulfonamides (antibiotic) (8 sources) Sulfonamides (Antibiotic); Translations: [Sulfa Drugs] Drug Allergy 07-05-19 06 [facility] acute hospital Work Phone: (20 sources) aspirin; Translations: [ASPIRIN] Propensity to adverse reactions to drug 11-22-19 16 [facility] Work Phone: (20 sources) banana extract; Translations: [BANANA] Propensity to adverse reactions to drug 11-22-19 16 [facility] Work Phone: (20 sources) gemfibrozil; Translations: [GEMFIBROZIL] Propensity to adverse reactions to drug 07-05-19 06 Myalgia, Other [facility] Work Phone: (20 sources) Hmg-Coa Reductase Inhibitors (Statins); Translations: [JDCIOKZ-TOK-HMV REDUCTASE INHIBITORS] Propensity to adverse reactions to drug 11-22-19 16 unknown [facility] Work Phone: (20 sources) ibuprofen; Translations: [IBUPROFEN] Propensity to adverse reactions to drug 07-05-19 06 [facility] Work Phone: (20 sources) levoFLOXacin; Translations: [LEVOFLOXACIN] Propensity to adverse reactions to drug 02-11-20 14 Other: See Comments [facility] Work Phone: (20 sources) niacin; Translations: [NIACIN] Propensity to adverse reactions to drug 07-05-19 06 [facility] Work Phone: (20 sources) Penicillins; Translations: [PENICILLINS] Propensity to adverse reactions to drug 02-11-20 14 [facility] Work Phone: (20 sources) Sulfonamides (Antibiotic); Translations: [SULFA (SULFONAMIDE ANTIBIOTICS)] Propensity to adverse reactions to drug 07-05-19 06 [facility] Work Phone: (20 sources) traMADol; Translations: [TRAMADOL] Propensity to adverse reactions to drug 02-11-20 14 Other: See Comments, Other [facility] Work Phone: (20 sources) KIWI; Translations: [KIWI] Propensity to adverse reactions to drug 11-22-19 16 Hives [facility] Work Phone: (20 sources) PROPOXYPHENE N-ACETAMINOPHEN; Translations: [PROPOXYPHENE N-ACETAMINOPHEN] Propensity to adverse reactions to drug 07-05-19 06 Intolerance [facility] Work Phone: (20 sources) belladonna alkaloids; Translations: [BELLADONNA ALKALOIDS] Drug Allergy 01-06-20 09 Intolerance [facility] Repository (20 sources) benazepril; Translations: [BENAZEPRIL] Drug Allergy 09-21-19 06 Wheezing, Cough [facility] Repository (20 sources) carbidopa; Translations: [CARBIDOPA] Drug Allergy 07-05-19 06 [facility] Repository (20 sources) modafinil; Translations: [MODAFINIL] Drug Allergy 08-08-19 18 Mental Status Change [facility] Repository (20 sources) niacin; Translations: [NIACIN (ANTIHYPERLIPIDEM IC)] Drug Allergy 07-05-19 06 [facility] Repository (20 sources) salicylic acid; Translations: [SALICYLATES] Drug Allergy 07-05-19 06 Vomiting [facility] Repository (20 sources) AMOXICILLIN-POT CLAVULANATE; Translations: [AMOXICILLIN-POT CLAVULANATE] Propensity to adverse reactions to drug (disorder) 07-05-19 06 GI Upset [facility] Repository (20 sources) GUAIFENESIN-SODIU M CITRATE; Translations: [GUAIFENESIN-SODI UM CITRATE] Propensity to adverse reactions to drug (disorder) 07-05-19 06 [facility] Repository (1 source) OTHER; Translations: [OTHER] Propensity to adverse reactions (disorder) 07-05-19 06 [facility] Repository (20 sources) Lisinopril; Translations: [LISINOPRIL] Drug Allergy 09-06-19 19 Other (See Comments), Diarrhea [facility] (20 sources) Spironolactone; Translations: [SPIRONOLACTONE] Drug Allergy 01-03-20 19 hyperkalemia [facility] (17 sources) Amoxicillin / Clavulanate; Translations: [Augmentin] Drug Allergy Rash [facility] Work Phone: (17 sources) banana allergy to substance Hives [facility] Work Phone: (1 source) Gemfibrozil Drug Allergy Myalgia [facility] Work Phone: (17 sources) glimepiride; Translations: [glimepiride] Drug Allergy Nausea [facility] Work Phone: (17 sources) Hmg-Coa Reductase Inhibitors (Statins); Translations: [Statins] drug allergy Myalgia [facility] Work Phone: (1 source) levoFLOXacin Drug Allergy Hallucinations [facility] Work Phone: (17 sources) Omeprazole; Translations: [omeprazole] Drug Allergy [facility] Work Phone: (17 sources) Penicillins; Translations: [Penicillins] drug allergy Rash [facility] Work Phone: (20 sources) Ramipril; Translations: [ramipril] Drug Allergy 05-07-20 23 Abdominal pain, Unknown [facility] Work Phone: (17 sources) Sulfonamides (Antibiotic); Translations: [Sulfa Drugs] drug allergy Rash [facility] Work Phone: (20 sources) canagliflozin; Translations: [Invokana TABS] Drug Allergy 05-05-20 21 Itching, Anaphylaxis [facility] (6 sources) HMG-CoA reductase inhibitor Propensity to adverse reactions to drug 11-22-19 16 Other [facility] (1 source) Penicillins Propensity to adverse reactions to drug 11-22-19 16 [facility] (20 sources) Sulfonamides (Antibiotic) Propensity to adverse reactions to drug 07-05-19 06 [facility] (3 sources) Acetaminophen Drug Allergy 05-05-20 21 Upset Stomach [facility] Work Phone: (20 sources) Erythromycin Drug Allergy 05-05-20 21 Other [facility] (20 sources) Ethanol Drug Allergy 05-05-20 21 Other [facility] (9 sources) Losartan Drug Allergy 05-05-20 21 cough [facility] (20 sources) Propoxyphene Drug Allergy 05-05-20 21 Upset Stomach [facility] (5 sources) Cenawpd-Zga-Yni Reductase Inhibitor; Translations: [Djcranh-Zeb-Ntl Reductase Inhibitor] Propensity to adverse reactions 05-05-20 21 unknown [facility] Repository (20 sources) Penicillins Drug Allergy 02-11-20 14 Hives [facility] (20 sources) Phenylbutazone Drug Allergy 07-05-19 06 [facility] Work Phone: (20 sources) bacol [Other] Propensity to adverse reactions 07-05-19 06 [facility] Work Phone: (20 sources) ramapril [Other] Propensity to adverse reactions 07-05-19 06 [facility] Work Phone: (20 sources) HMG-CoA reductase inhibitor Propensity to adverse reactions to drug 11-22-19 16 Myalgia [facility] (5 sources) Aluminum aspirin Drug Allergy 04-30-20 23 Nausea And Vomiting [facility] (5 sources) Penicillins Drug Allergy 02-11-20 14 Hives, Rash [facility] Work Phone: (5 sources) Spironolactone Drug Allergy 01-03-20 19 [facility] (20 sources) Doxycycline; Translations: [DOXYCYCLINE] Drug Allergy 05-07-20 23 Other: See Comments [facility] (20 sources) Phenylbutazone; Translations: [PHENYLBUTAZONE] Drug Allergy 05-07-20 23 Unknown [facility] Work Phone: (14 sources) Ticagrelor Drug Allergy 06-25-19 24 Severe nausea and vomiting [facility] (20 sources) empagliflozin; Translations: [EMPAGLIFLOZIN] Drug Allergy 05-18-20 24 Intolerance [facility] (20 sources) Penicillins Drug Allergy 02-11-20 14 Hives [facility] (1 source) Aspirin Drug Allergy 02-02-20 25 [facility] Repository (1 source) Banana Extract Drug Allergy 02-02-20 [facility] Rep[facility] (1 source) canagliflozin Drug Allergy 02-02-20 [facility] (1 source) Doxycycline Drug Allergy 02-02-20 [facility] (1 source) Erythromycin Drug Allergy 12-17-19 [facility] (1 source) Gemfibrozil Drug Allergy 02-02-20 [facility] (1 source) Ibuprofen Drug Allergy 02-02-20 [facility] (1 source) levoFLOXacin Drug Allergy 02-02-20 [facility] (1 source) Lisinopril Drug Allergy 02-02-20 [facility] (1 source) Niacin Drug Allergy 02-02-20 [facility] (1 source) Penicillins Drug allergy (disorder) 02-02-20 [facility] (1 source) Propoxyphene Drug Allergy 02-02-20 [facility] (1 source) Spironolactone Drug Allergy 02-02-20 [facility] (1 source) Sulfonamides (Antibiotic) Drug allergy (disorder) 02-02-20 [facility] (1 source) Ticagrelor Drug Allergy 02-02-20 [facility] (1 source) traMADol Drug Allergy 02-02-20 [facility] Rep[facility] (1 source) kiwi Drug allergy (disorder) 02-02-20 [facility] Rep[facility] (1 source) ethyl alcohol Drug allergy (disorder) 12-17-19 [facility] Repository Medications Current Medications Medication Drug Class(es) Dates Sig (Normalized) Sig (Original) [id number] 200 actuat albuterol 0.09 mg/actuat metered dose inhaler (20 sources) beta2-Adrenergic Agonist Start: 06-09-2024 End: 04-04-2025 take 2 puff(s) by inhalation every four hours as needed for wheezing albuterol HFA (PROVENTIL HFA, VENTOLIN HFA) 90 mcg/actuation inhaler Indications: SOB (shortness of breath) Inhale 2 puffs as instructed every 4 hours as needed for wheezing/shortnes s of breath. 8.5 g 1 01/04/2025 04/04/2025 Active Start: 05-25-2024 End: 08-20-2024 take 2 puff(s) by inhalation every four hours as needed for wheezing albuterol HFA (PROVENTIL HFA, VENTOLIN HFA) 90 mcg/actuation inhaler Inhale 2 Puffs as instructed every 4 hours as needed for wheezing/shortness of breath. 18 g 1 05/25/2024 08/20/2024 Discontinued Start: 04-29-2023 End: 05-01-2023 take 2 puff(s) by inhalation every six hours as needed for wheezing 2 puff, Inhalation, Every 6 hours PRN, wheezing, Starting on Sat04/29/23 at 2301 Start: 04-27-2023 End: 07-24-2023 Albuterol Sulfate 90 mcg/act uation HFA aerosol inhaler Active 1 NMA INHALATION EVERY 6 HOURS as needed for shortness of breath or wheezing 6.7 0 July 24, 2023 3:53pm Start: 04-27-2023 End: 07-24-2023 take 1 puff(s) by inhalation every six hours Albuterol Sulfate Active 1 PUFF INHALATION EVERY 6 HOURS 6.7 July 24, 2023 3:53pm Start: 02-28-2022 End: 06-25-2022 Albuterol Sulfate (Ventolin Hfa) 90 mcg/actuation HFA aerosol inhaler Discontinued 1 - 2 NMA INHALATION EVERY 4 HOURS NEEDED as needed for Wheezing 1 0 February 28, 2022 12:00am June 25, 2022 3:17pm Start: 02-28-2022 End: 06-25-2022 take 1 puff(s) by inhalation every four hours as needed Albuterol Sulfate (Ventolin Hfa) 90 mcg/actuation HFA aerosol inhaler Discontinued 1 - 2 PUFF INHALATION EVERY 4 HOURS NEEDED 1 February 28, 2022 12:00am June 25, 2022 3:17pm Start: 06-09-2021 End: 02-16-2022 take 2 puff(s) by inhalation every four hours as needed for wheezing albuterol HFA (PROVENTIL HFA, VENTOLIN HFA) 90 mcg/actuation inhaler Indications: SOB (shortness of breath) Inhale 2 Puffs as instructed every 4 hours as needed for wheezing/shortness of breath. 8.5 g 0 06/09/2021 02/16/2022 Discontinued Albuterol Sulfat e HFA 108 (90 Base) MCG/ACT Inhalation Aerosol Solution Quantity: 0 Refills: 0 Ordered: 13-Jun-2021 DO Active Comment on above: Inhale 2 Puffs as in structed every 4 hours as needed for wheezing/shortness of breath. amLODIPine 10 mg oral tablet (20 sources) Dihydropyridine Calcium Channel Alexandra Start: 12-17-19 End: 12-25-19 take 1 tablet by mouth once daily Amlodipine 10 mg tablet Active 10 mg PO DAILY 90 3 December 24, 2024 3:09pm Start: 05-07-2024 End: 12-16-2024 take 1 tablet by mouth once daily amLODIPine (NORVASC) 5 mg tablet Take 1 tablet by mouth once daily. 10/06/2024 Active Start: 06-20-2018 End: 01-02-2019 take 1 tablet by mouth once daily amLODIPine (NORVASC) 5 MG tablet Indications: Essential hypertension Take 1 (one) tablet (5 mg total) by mouth daily . 90 tablet 3 06/20/2018 01/02/2019 Discontinued Start: 12-20-2017 End: 03-21-2018 take 1 tablet by mouth once daily amLODIPine (NORVASC) 5 MG tablet Indications: Essential hypertension Take 1 (one) tablet (5 mg total) by mouth daily. 90 tablet 2 12/20/2017 03/21/2018 Discontinued (Dose adjustment) Start: 03-26-2017 amLODIPine (NO RVASC) 5 MG tablet Indications: Essential hypertension TAKE 1 TABLET DAILY 90 tablet 2 03/26/2017 Active aspirin 81 mg delayed release oral tablet (20 sources) Platelet Aggregation Inhibitor, Nonsteroidal Anti-inflammatory Drug Start: 04-30-2023 End: 10-20-2024 take 1 tablet by mouth once daily aspirin, enteric coated (ASPIRIN, ENTERIC COATED) 81 mg EC tablet Take 1 tablet by mouth once daily. 90 tablet 1 10/20/2024 Active Comment on above: Take 1 tablet by holly th once daily. benzonatate 100 mg oral capsule (5 sources) Non-narcotic Antitussive Start: 06-09-2021 End: 02-16-2022 take 1 capsule by mouth every eight hours as needed for cough and cough benzonatate (TESSALON PERLES) 100 mg capsule Indications: Cough Take 1 capsule by mouth three times daily as needed for cough. 15 capsule 0 06/09/2021 02/16/2022 Discontinued Benzonatate 100 MG Oral Capsule Quantity: 0 Refills: 0 Ordered: 13-Jun-2021 DO Active Comment on above: Take 1 capsule by [facility] three times daily as needed for cough. BIPAP (20 sources) Start: 07-03-2021 BIPAP DME change for supplies. Pt has a Resmed Auto BiPAP IPAP max 18, EPAP min 6 CM H2O, PS 5 cmH2O. mask, filters, heated humidity & tubing, [employer] supplies. LADAN G47.33 1 Each 07/03/2021 Active Start: 07-03-2021 BIPAP DME cardenas ge for supplies. Pt has a Resmed Auto BiPAP IPAP max 18, EPAP min 6 CM H2O, PS 5 cmH2O. mask, filters, heated humidity & tubing, [employer] supplies. LADAN G47.33 1 Each 0 07/03/2021 Active Comment on above: DME change for suppl ies. Pt has a Resmed Auto BiPAP IPAP max 18, EPAP min 6 CM H2O, PS 5 cmH2O. mask, filters, heated humidity & tubing, [employer] supplies. LADAN G47.33 Blood-Glucose Meter monitoring kit (1 source) Start: 04-10-20 23 End: 04-11-20 23 Blood-Glucose Meter monitoring kit Glucose Meter of Choice - Kit - Dx: Type 2 DM - Controlled E11.9 1 Each 0 04/10/2023 04/11/2023 Active Comment on above: Glucose Meter of Cho ice - Kit - Dx: Type 2 DM - Controlled E11.9 busPIRone hydrochloride 5 mg oral tablet (5 sources) Start: 01-26-20 25 take 1 tablet by mouth three times daily as needed busPIRone (BUSPAR) 5 mg tablet Indications: Generalized anxiety disorder , Panic disorder Take 1 tablet by mouth three times a day as needed. 90 tablet 01/25/2025 Active calcium ascorbate 500 mg oral tablet (20 sources) Start: 10-27-19 22 take 1 tablet by mouth once daily Ascorbate Calcium (Vitamin C) 500 mg tablet Active 500 mg PO DAILY October 26, 2021 12:00am cholecalciferol 0.025 mg oral capsule (20 sources) Vitamin D Start: 06-04-20 take 1 capsule by mouth once daily Cholecalciferol (Vitamin D3) 25 mcg (1,000 unit) capsule Active 25 ug PO DAILY June 04, 2022 1:00am take 1 tablet by mouth once gracia y cholecalciferol (VITAMIN D-3) 50 mcg (2,000 unit) tablet Take 2,000 Units by mouth once daily. Active take 1 tablet by mouth in the mo rning cholecalciferol (Vitamin D-3) 50 MCG (2000 UT) tablet Take 2,000 Units by mouth in the morning. 0 Active Comment on above: Take 2,000 Units by mouth once daily. citalopram 40 mg oral tablet (20 sources) Serotonin Reuptake Inhibitor Start: 05-18-2023 take 20 mg by mouth once daily Citalopram Active 20 MG PO DAILY May 18, 2023 1:00am Start: 05-01-2023 End: 05-01-2024 take 1 tablet by mouth in the morning citalopram (CeleXA) 20 MG tablet Take 1 tablet (20 mg) by mouth in the morning. 30 tablet 05/02/2023 05/01/2024 Active Start: 04-30-2023 End: 04-30-2023 take 40 mg by mouth once daily 40 mg, Oral, Daily, Fir st dose on Sat04/30/23 at 0800 Start: 02-10-2014 End: 04-18-2025 take 1 tablet by mouth once daily citalopram (CELEXA) 40 mg tablet Take 1 tablet by mouth once daily. 90 tablet 10/20/2024 04/18/2025 Active Comment on above: Take 1 tablet by holly th once daily. clotrimazole 10 mg/ml topical cream (3 sources) Azole Antifungal Start: 02-24-2024 End: 03-09-2024 clotrimazole (LOTRIMIN) 1 % cream Apply to affected area two times a day for 14 days. 28 g 1 02/24/2024 03/09/2024 Active CPAP/BIPAP/OTHER (20 sources) Start: 12-25-2023 End: 05-11-2051 CPAP/BIPAP/OTHER Type .CPAPSettings into a note to see current settings/supplies/DME information. 1 Each 12/25/2023 05/11/2051 Active Start: 12-25-2023 End: 05-11-2051 CPAP/BIPAP/OTHER Type .CPAPS ettings into a note to see current settings/supplies/DME information. 1 Each 0 12/25/2023 05/11/2051 Active Start: 10-17-2022 End: 03-03-2050 CPAP/BIPAP/OTHER Formal mask fitting to consider smaller FFM like dreamwear due to dry eyes and supplies for bipap 13/8cmH2O DME [facility] 1 Each 10/17/2022 03/03/2050 Active Start: 10-17-2022 End: 03-03-2050 CPAP/BIPAP/OTHER Formal mask fitting to consider smaller FFM like dreamwear due to dry eyes and supplies for bipap 13/8cmH2O DME [facility] 1 Each 0 10/17/2022 03/03/2050 Active Start: 02-26-2022 End: 07-13-2049 CPAP/BIPAP/OTHER Replacement auto bipap 13/8 with PS of 5cmH2O DME [facility] 1 Each 02/26/2022 07/13/2049 Active Start: 02-26-2022 End: 07-13-2049 CPAP/BIPAP/OTHER Replacement auto bipap 13/8 with PS of 5cmH2O DME [facility] 1 Each 0 02/26/2022 07/13/2049 Active Start: 02-16-2022 End: 07-03-2049 CPAP/BIPAP/OTHER Settings de crease to autobipap 13/8cmH2O DME [facility] 1 Each 02/16/2022 07/03/2049 Active Start: 02-16-2022 End: 07-03-2049 CPAP/BIPAP/OTHER Settings de crease to autobipap 13/8cmH2O DME [facility] 1 Each 0 02/16/2022 07/03/2049 Active Comment on above: Settings decrease to autobipap 13/8cmH2O DME [facility] Replacement auto bip ap 13/8 with PS of 5cmH2O DME [facility] Formal mask fitting to consider smaller FFM like dreamwear due to dry eyes and supplies for bipap 13/8cmH2O DME [facility] 1 ml evolocumab 140 mg/ml auto-injector (20 sources) PCSK9 Inhibitor Start: 01-19-20 25 inject 140 mg by subcutaneous injection every other week evolocumab 140 mg/mL subcutaneous pen injector (REPATHA SURECLICK) Indications: Mixed hyperlipidemia , S/P CABG x 4 Inject 140 mg subcutaneously every 2 weeks. 8 each 1 01/18/2025 Active Start: 05-06-2024 End: 01-15-2025 Evolocumab (Repatha Sureclic k) 140 mg/mL pen injector Active 140 mg SC every 2 weeks August 19, 2024 1:00am fenofibrate 145 mg oral tablet (20 sources) Peroxisome Proliferator Receptor alpha Agonist Start: 05-01-2023 End: 01-04-2025 take 1 tablet by mouth once daily fenofibrate nanocrystallized (TRICOR) 145 mg tablet Take 1 tablet by mouth once daily. 90 tablet 1 01/04/2025 Active Comment on above: Take 1 tablet by holly th once daily. ferrous bis-glycinate chelate (IRON BISGLYCINATE CHELATE ORAL) (4 sources) End: 02-16-2022 take 25 mg by mouth once daily at bedtime ferrous bis-glycinate chelate (IRON BISGLYCINATE CHELATE ORAL) Take 25 mg by mouth daily at bedtime. 0 02/16/2022 Discontinued take 25 mg by mouth once daily at bedtime ferrous bis-glycinate chelate (IRON BISGLYCINATE CHELATE ORAL) Take 25 mg by mouth daily at bedtime. 0 Active Comment on above: Take 25 mg by mouth daily at bedtime. fluconazole 150 mg oral tablet (5 sources) Azole Antifungal Start: End: fluconazole (DIFLUCAN) 150 mg tablet Indications: Vulvovaginal candidiasis Take 1 tablet by mouth every 72 hours for 3 doses. Repeat in 3 days as needed. 3 tablet 02/19/2024 02/26/2024 Active furosemide 40 mg oral tablet (20 sources) Loop Diuretic Start: take 1 tablet by mouth once daily Furosemide (Lasix) 40 mg tablet Active 40 mg PO DAILY 90 3 January 13, 2025 12:00am Start: 07-19-2023 End: 11-03-2024 Furosemide 40 mg tablet Disc ontinued 40 mg PO .COMPLEX 30 December 10, 2023 12:03pm August 19, 2024 11:55am 40 mg orally once daily X 3 days a week, then keep extra for as needed use for swelling, weight gain or shortness of breath; Start: 01-08-2018 End: 08-19-2020 furosemide (LASIX) 40 MG tab let Indications: Essential hypertension One and one-half tablets (60 mg total) daily. 135 tablet 2 01/08/2018 08/19/2020 Discontinued Start: 12-25-2016 furosemide (LA SIX) 40 MG tablet Indications: Essential hypertension One and one-half tablets (60 mg total) daily. 135 tablet 3 12/25/2016 Active Handicap Placard (20 sources) Start: 06-05-[address] Active 0 .Route .MEDSUPPLY 1 0 June 05, 2023 10:33am Debility As directed Expires 06/05/2028 Start: 06-05-[address] Active 0 .Route .MEDSUPPLY June 05, 2023 10:33am As directed Expires 06/05/2028 Start: 06-05-[address] Active 0 .Route .MEDSUPPLY June 05, 2023 9:33am As directed Expires 06/05/2028 Start: 06-05-2023 End: 06-05-2023 Handicap Placard Discontinue d 0 .Route .MEDSUPPLY 1 0 June 05, 2023 1:00am June 05, 2028 1:00am June 05, 2023 10:33am Debility As directed Start: 06-05-2023 End: 06-05-2023 Handicap Placard Discontinue d 0 .Route .MEDSUPPLY June 05, 2023 1:00am June 05, 2028 1:00am June 05, 2023 10:33am As directed Start: 06-05-2023 End: 06-05-2023 Handicap Placard Discontinue d 0 .Route .MEDSUPPLY June 05, 2023 1:00am June 05, 2023 10:33am As directed Start: 06-05-2023 End: 06-05-2023 Handicap Placard Discontinue d 0 .Route .MEDSUPPLY June 05, 2023 12:00am June 05, 2023 9:33am As directed Inhalational Spacing Device (1 source) Start: 05-25-2024 End: 05-25-2024 Inhalational Spacing Device 1 Device one time only for 1 dose. 1 Each 05/25/2024 05/25/2024 Active Magnesium (20 sources) Start: 09-03-2023 take 1 tablet by mouth twice daily Magnesium 250 mg tablet Active 250 mg PO TWICE A DAY September 03, 2023 12:00am Start: 09-03-2023 take 300 mg by mouth twice gonzalez ly Magnesium Active 300 MG PO TWICE A DAY September 03, 2023 12:00am take 3 tablets by mo uth twice daily MAGNESIUM ORAL Take 300 mg by mouth twice daily. some days takes three tablets Active take 3 tablets by mo uth twice daily MAGNESIUM ORAL Take 300 mg by mouth twice daily. some days takes three tablets 0 Active Comment on above: Take 300 mg by mouth twice daily. some days takes three tablets metFORMIN hydrochloride 1000 mg oral tablet (20 sources) Biguanide Start: End: take 2 tablets by mouth twice daily Metformin 500 mg tablet Discontinued 1000 mg PO TWICE A DAY January 21, 2023 12:00am November 03, 2024 1:54pm Start: 01-21-2023 take 1000 mg by mout h twice daily Metformin Active 1000 MG PO TWICE A DAY January 21, 2023 12:00am Start: 01-16-2023 End: 06-22-2025 take 1 tablet by mouth twice daily at mealtime metFORMIN (GLUCOPHAGE) 1,000 mg tablet Indications: Type 2 diabetes mellitus without retinopathy (HCC) Take 1 tablet by mouth two times a day with meals. 180 tablet 1 12/24/2024 06/22/2025 Active Start: 02-27-2022 End: 01-21-2023 take 1 tablet by mouth twice daily Metformin 500 mg tablet Discontinued 500 mg PO TWICE A DAY 180 3 April 11, 2022 7:52am January 21, 2023 8:10pm Start: 12-28-2021 End: 12-28-2021 take 1 tablet by mouth twice daily Metformin 500 mg tablet,ER kolby.retention 24 hr Discontinued 1000 mg PO TWICE A DAY December 28, 2021 11:16am December 28, 2021 11:22am Start: 12-28-2021 End: 12-28-2021 take 1 tablet by mouth three times daily Metformin 500 mg tablet,ER kolby.retention 24 hr Discontinued 500 mg PO THREE TIMES A DAY December 28, 2021 10:57am December 28, 2021 11:16am Start: 12-28-2021 End: 02-27-2022 take 1 tablet by mouth twice daily Metformin 1,000 mg tablet extended release 24hr Discontinued 1000 mg PO TWICE A DAY December 28, 2021 12:00am February 27, 2022 3:24pm Start: 01-28-2021 End: 12-28-2021 take 1 tablet by mouth twice daily Metformin 500 mg Tablet,Er [place].Retention 24 Hr Discontinued 500 mg PO TWICE A DAY January 28, 2021 12:00am December 28, 2021 10:57am Start: 04-06-2019 take [address] [facility] twice daily metFORMIN HCl - 500 MG Oral Tablet TAKE 2 TABLET Twice daily Quantity: 120 Refills: 2 Carlos Clarke Start : 06-Apr-2019 Active Start: 04-06-2019 take 1 tablet by holly twice daily metFORMIN HCl - 1000 MG Oral Tablet Take 1 tablet twice daily Quantity: 180 Refills: 3 Ordered: 05-Dec-2020 Carlos Clarke MD Start : 06-Apr-2019 Active Start: 02-10-2014 End: 01-16-2023 take 1 tablet by mouth three times daily metFORMIN (GLUCOPHAGE) 500 mg tablet Take 1 tablet by mouth three times daily. 0 02/10/2014 01/16/2023 Discontinued take 1 tablet by holly twice daily at mealtime metFORMIN (GLUCOPHAGE) 500 MG tablet Take 500 mg by mouth 2 (two) times a day with meals . 0 Active Comment on above: Take 1 tablet by holly th three times daily. Take 1 tablet by holly th twice daily with meals. Take 1 tablet by holly two times a day with meals. 24 hr metoprolol succinate 25 mg extended release oral tablet (20 sources) beta-Adrenergic Alexandra Start: 07-26-2023 End: 12-16-2024 take 0.5 tablet by mouth once daily metoprolol succinate ER (TOPROL XL) 25 mg 24 hr tablet Indications: Coronary artery disease of [place] artery of [place] heart with stable angina pectoris Take 0.5 tablets by mouth once daily. 10/30/2023 Active Start: 05-07-2023 End: 10-30-2023 take 0.5 tablet by mouth once daily metoprolol succinate ER (TOPROL XL) 25 mg 24 hr tablet Indications: Coronary artery disease of [place] artery of [place] heart with stable angina pectoris Take 0.5 tablets by mouth once daily. 10/30/2023 Active Start: 04-30-2023 End: 04-30-2024 take 1 tablet by mouth once daily Metoprolol Succinate 25 mg tablet extended release 24 hr Discontinued 25 mg PO DAILY May 18, 2023 1:00am July 26, 2023 2:23pm Comment on above: Take 1 tablet by holly th once daily. nitrofurantoin, macrocrystals 25 mg / nitrofurantoin, monohydrate 75 mg oral capsule (20 sources) Nitrofuran Antibacterial Start: 02-17-20 End: 02-22-20 take 1 capsule by mouth twice daily nitrofurantoin monohydrate and macrocrystal (MACROBID) 100 mg capsule Indications: Leukocytes in urine Take 1 capsule by mouth two times a day for 5 days. 10 capsule 02/17/2024 02/22/2024 Active Start: 05-12-2021 End: 06-13-2021 take 1 tablet by mouth twice daily Nitrofurantoin Monohyd Macro 100 MG Oral Capsule Take one tablet twice daily. Quantity: 14 Refills: 0 Ordered: 12-May-2021 Baudilio SON, MPH, Yury Peters Start : 12-May-2021 End : 13-Jun-2021 Complete Start: 03-24-2021 End: 05-05-2021 take 1 capsule by mouth every twelve hours at mealtime Nitrofurantoin Monohyd/M-Cryst (Macrobid) 100 mg capsule Discontinued 100 mg PO Q12H 10 5 0 March 24, 2021 12:00am May 05, 2021 12:10pm must administer with a meal/food pregabalin 150 mg oral capsule (20 sources) Start: 04-29-2023 End: 05-01-2023 take 150 mg by mouth twice daily 150 mg, Oral, 2 times daily, First dose on 04/29/23 at 2200 Start: 02-16-2022 End: 03-29-2025 take 1 capsule by mouth twice daily at bedtime pregabalin (LYRICA) 150 mg capsule Indications: Restless legs syndrome (RLS) , 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) TAKE 1 CAPSULE BY MOUTH TWICE DAILY AT SUPPER AND BEDTIME 180 capsule 12/30/2024 03/29/2025 Active Start: 01-25-2022 End: 02-27-2022 take 1 capsule by mouth twice daily, then take 2 capsules by mouth at bedtime, then take 1 capsule by mouth at bedtime Pregabalin (Lyrica) 75 mg capsule Discontinued 75 mg PO TWICE A DAY 90 1 January 25, 2022 12:00am January 25, 2022 11:46am Started Lyrica at 75 mg oral twice daily, at suppertime and bedtime for 1 week then increase to 150 mg oral at suppertime and 75 mg at bedtime. 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 Quantity: 270 Refills: 0 Ordered: 14-Jul-2020 Carlos Clarke MD Start : 14-Jul-2020 Active Start: 05-30-2019 take 1 capsule by mo uth twice daily Pregabalin 150 MG Oral Capsule TAKE 1 CAPSULE TWICE DAILY. Refills: 0 Start : 30-May-2019 Active Start: 06-26-2016 take 2 capsules by m outh twice daily LYRICA 150 mg capsule Take 300 mg by mouth 2 (two) times a day . 0 06/26/2016 Active Start: 06-26-2016 LYRICA 150 mg capsule Take 225 mg by mouth 2 (two) times a day . 0 06/26/2016 Active Start: 06-26-2016 take 1 capsule by mo uth twice daily LYRICA 150 mg capsule Take 150 mg by mouth 2 (two) times a day. 06/26/2016 Active Comment on above: Take 2 capsules PO w ith dinner and 1 capsule close to bedtime for RLS/neuropathy Take 1 capsule by mo uth twice daily for 30 days. One capsule at dinner, one capsule before bed TAKE 1 CAPSULE BY MO UTH AT DINNER AND 1 BEFORE BED. TAKE 1 CAPSULE BY MO UTH WITH SUPPER AND 1 CAP AT BEDTIME for 90 days TAKE 1 CAPSULE BY MO UTH WITH SUPPER AND 1 CAP AT BEDTIME TAKE 1 CAPSULE BY MO UTH TWICE DAILY AT SUPPER AND BEDTIME promethazine hydrochloride 25 mg oral tablet (20 sources) Phenothiazine Start: 01-22-20 End: 07-02-19 24 take 1 tablet by mouth every six hours as needed for nausea promethazine (PHENERGAN) 25 mg tablet Indications: Nausea and vomiting, unspecified vomiting type Take 1 tablet by mouth every 6 hours as needed for nausea/vomiting. 07/02/2023 Active Start: 01-25-2022 End: 02-27-2022 take 1 tablet by mouth three times daily as needed for nausea and vomiting Promethazine 25 mg tablet Discontinued 25 mg PO THREE TIMES A DAY as needed for nausea and vomiting 10 0 January 25, 2022 12:00am February 27, 2022 3:26pm Comment on above: Take 1 tablet by holly th every 6 hours as needed for nausea/vomiting. red yeast rice 600 mg oral capsule (20 sources) Start: 10-26-2021 take 1 capsule by mouth once daily Red Yeast Rice 600 mg capsule Active 600 mg PO DAILY October 26, 2021 12:00am give with meal/snack Start: 05-30-2019 take 1 capsule by mo uth twice daily Red Yeast Rice 600 MG Oral Capsule Take 1 capsule twice daily Quantity: 0 Refills: 0 Ordered: 30-May-2019 DO Start : 30-May-2019 Active red yeast rice 6 00 mg tab Active take 1 tablet by holly th twice daily red yeast rice 600 mg Tab Take 600 mg by mouth 2 (two) times a day. 0 Active Respiratory Therapy Supplies (CareTouch CPAP & BIPAP Hose) [facility] [place] (5 sources) Start: 02-16-2022 End: 03-03-2050 Respiratory Therapy Supplies (CareTouch CPAP & BIPAP Hose) mis Formal mask fitting to consider smaller FFM like dreamwear due to dry eyes and supplies for bipap 13/8cmH2O DME [facility] 0 02/16/2022 03/03/2050 Active semaglutide (Ozempic) 4 MG/3ML solution pen-injector (5 sources) Start: 04-10-2023 semaglutide (Ozempic) 4 MG/3ML solution pen-injector 1 mg. 0 04/10/2023 Active SITagliptin 50 mg oral tablet (20 sources) Dipeptidyl Peptidase 4 Inhibitor Start: 05-19-2024 End: 07-03-2025 take 1 tablet by mouth once daily SITagliptin phosphate (JANUVIA) 50 mg tablet Indications: Uncontrolled type 2 diabetes mellitus with hyperglycemia (HCC) Take 1 tablet by mouth once daily. 90 tablet 1 01/04/2025 07/03/2025 Active triamcinolone acetonide 1 mg/ml topical cream (3 sources) Corticosteroid Start: 02-25-2024 End: 03-10-2024 triamcinolone acetonide (KENALOG) 0.1 % cream Indications: Itching Apply 1 application to affected area two times a day for 14 days. Apply to affected area. Location: upper abdomen and low back 28.4 g 02/25/2024 03/10/2024 Active Completed/Discontinued Medications Medication Drug Class(es) Dates Sig (Normalized) Sig (Original) 0.9% NaCl 10 mL flush (2 sources) Start: 08-24-2024 End: 08-24-2024 0.9% NaCl 10 mL flush Start: 08-24-2024 End: 08-24-2024 10 mL, OTHER, ONCE, 1 dose, On 08/24/24 at 0930 Acetaminophen (2 sources) Start: 04-29-2023 End: 05-01-2023 take 1 tablet by mouth every six hours as needed for pain and fever acetaminophen (Tylenol) tablet 650 mg ascorbic acid 500 mg chewable tablet (20 sources) Vitamin C Start: 08-19-2020 End: 05-01-2023 take 500 mg by mouth once daily 500 mg, Oral, Daily, First dose on Sat04/30/23 at 0900 Start: 08-19-2020 take 1 tablet by holly th once daily Vitamin C-Yamileth Hips 500 MG Oral Tablet TAKE 1 TABLET DAILY. Quantity: 0 Refills: 0 Ordered: 19-Aug-2020 DO Start : 19-Aug-2020 Active Comment on above: Take 500 mg by mouth daily at bedtime. azithromycin 250 mg oral tablet (17 sources) Macrolide Antimicrobial Start: 12-08-2023 End: 04-20-2024 Azithromycin (Zithromax Z-Juan J) 250 mg tablet Discontinued 0 PO .COMPLEX 6 0 December 08, 2023 12:00am April 20, 2024 12:08pm For 250 mg dose pack: take 500 mg today (day 1), then 250 mg for 4 days (days 2-5) Start: 09-01-2023 End: 09-03-2023 Azithromycin (Zithromax Z-Pa k) 250 mg tablet Discontinued 0 PO .COMPLEX 6 0 September 01, 2023 12:00am September 03, 2023 2:58pm For 250 mg dose pack: take 500 mg today (day 1), then 250 mg for 4 days (days 2-5) PO Start: 06-13-2021 Azithromycin 2 50 MG Oral Tablet TAKE 2 TABLETS ON DAY 1 THEN TAKE 1 TABLET A DAY FOR 4 DAYS. Quantity: 1 Refills: 1 Ordered: 13-Jun-2021 Baudilio SON, MPH, Yury Peters Start : 13-Jun-2021 Active canagliflozin 100 mg oral tablet (3 sources) Sodium-Glucose Cotransporter 2 Inhibitor Start: 06-08-2019 End: 02-16-2020 take 1 tablet by mouth once daily 30 minutes before breakfast Invokana 100 MG Oral Tablet TAKE 1 TABLET BY MOUTH ONCE DAILY 30 MINS BEFORE BREAKFAST Quantity: 30 Refills: 2 Carlos Clarke Start : 08-Jun-2019 Active carbidopa 10 mg / levodopa 100 mg oral tablet (8 sources) Aromatic Amino Acid Decarboxylation Inhibitor Start: 11-13-2016 End: 08-19-2020 take 1 tablet by mouth twice daily carbidopa-levodo pa (SINEMET) 10-100 mg per tablet Take 1 tablet by mouth 2 (two) times a day. 0 11/13/2016 08/19/2020 Discontinued cholecalciferol 9.52 unt/ml / glucose 357 mg/ml oral gel (2 sources) Vitamin D Start: 04-29-2023 End: 05-01-2023 glucose oral gel 15 g clopidogrel 75 mg oral tablet (20 sources) [id number] Platelet Inhibitor Start: 01-13-2025 End: 01-13-2025 take 1 tablet by mouth once daily Clopidogrel 75 mg tablet Discontinued 75 mg PO daily 90 3 January 13, 2025 3:15pm January 13, 2025 3:16pm Start: 06-14-2023 End: 11-03-2024 take 1 tablet by mouth once daily Clopidogrel 75 mg tablet Discontinued 75 mg PO .COMPLEX 90 3 June 22, 2024 1:31pm November 03, 2024 1:56pm Take 1 tablet by mouth daily Start: 07-05-2005 End: 05-07-2023 take 1 tablet by mouth once daily Clopidogrel 75 mg tablet Discontinued 0 .ROUTE .COMPLEX 90 3 March 15, 2023 8:00am April 29, 2023 2:46pm Take 1 tablet by mouth once daily Comment on above: Take one(1) tablet d aily. Take 75 mg by mouth once daily. 1 ml dexamethasone phosphate 10 mg/ml injection (2 sources) Corticosteroid Start: 08-24-2024 End: 08-24-2024 dexAMETHasone sodium phosphate 10 mg injection (DECADRON) Start: 08-24-2024 End: 08-24-2024 10 mg, OTHER, ONCE, 1 dose, On Sat08/24/24 at 0930, Administer over 5 minutes. diclofenac sodium 0.01 mg/mg topical gel (16 sources) Nonsteroidal Anti-inflammatory Drug Start: 02-03-2021 Diclofenac Sodium 1 % External Gel apply 2 gram topically QID for pain Quantity: 1 Refills: 3 Ordered: 03-Feb-2021 Carlos Clarke MD Start : 03-Feb-2021 Active doxycycline monohydrate 100 mg oral capsule (19 sources) Tetracycline-class Drug Start: 04-27-2023 End: 05-18-2023 take 1.1 capsules by mouth every twelve hours Doxycycline Monohydrate 100 mg capsule Discontinued 100 mg PO Q12H April 27, 2023 1:00am May 18, 2023 9:52am X7D FIRST DOSE 04/26 End: 05-01-2023 take 8 capsules by mouth twice daily doxycycline (Vibramycin) 100 MG capsule Take 100 mg by mouth 2 times daily. Take with at least 8 ounces (large glass) of water, do not lie down for 30 minutes after 0 05/01/2023 Discontinued (Stop taking at discharge) empagliflozin 10 mg oral tablet (20 sources) Sodium-Glucose Cotransporter 2 Inhibitor Start: 11-04-2023 End: 06-22-2024 take 1 tablet by mouth once daily, then take 1 tablet by mouth once daily in the morning empagliflozin (JARDIANCE) 10 mg tablet Take 1 tablet by mouth once daily. Take 1 tablet once daily in the morning 90 tablet 1 12/25/2023 04/20/2024 Discontinued (Other) esomeprazole 20 mg delayed release oral capsule (1 source) Proton Pump Inhibitor End: 01-02-2019 take 1 capsule by mouth once daily before breakfast esomeprazole (NEXIUM) 20 MG capsule Take 20 mg by mouth every morning before breakfast . 0 01/02/2019 Discontinued (Patient's Request) estradiol 0.1 mg/ml vaginal cream (11 sources) Estrogen Start: 06-03-2024 End: 08-20-2024 estradiol (ESTRACE) 0.01 % (0.1 mg/gram) vaginal cream Use 1 g vaginally once daily. 42.5 g 2 06/03/2024 08/20/2024 Discontinued ezetimibe 10 mg oral tablet (20 sources) Dietary Cholesterol Absorption Inhibitor Start: 01-16-2023 End: 04-30-2024 take 1 tablet by mouth once daily Ezetimibe 10 mg tablet Discontinued 10 mg PO DAILY March 11, 2023 12:00am April 20, 2024 12:09pm On Hold: myalgias Comment on above: Take 1 tablet by holly th once daily. ferrous sulfate 325 mg oral tablet (20 sources) Start: 04-30-2023 End: 05-01-2023 take 325 mg by mouth once daily at breakfast 325 mg, Oral, Daily with breakfast, First dose on Sat04/30/23 at 0800 Start: 08-19-2020 take 1 tablet by holly th twice daily Ferrous Sulfate 325 (65 Fe) MG Oral Tablet TAKE 1 TABLET TWICE DAILY. Quantity: 60 Refills: 5 Ordered: 19-Aug-2020 DO Start : 19-Aug-2020 Active glucagon (rdna) 1 mg injection (2 sources) Antihypoglycemic Agent Start: 04-29-2023 End: 05-01-2023 glucagon (human recombinant) injection 1 mg 150 ml glucose 50 mg/ml injection (4 sources) Start: 04-29-2023 End: 05-01-2023 dextrose 50 % solution 12.5 g Start: 04-29-2023 End: 05-01-2023 dextrose 5 % infusion 12 hr guaiFENesin 600 mg extended release oral tablet (2 sources) Start: 04-30-2023 End: 05-01-2023 guaiFENesin (Mucinex) 12 hr tablet 600 mg 250 ml heparin sodium, porcine 100 unt/ml injection (20 sources) Unfractionated Heparin, Anti-coagulant Start: 04-29-2023 End: 04-30-2023 heparin 25,000 units in dextrose 5% 250mL infusion (premix) Start: 04-29-2023 End: 04-30-2023 heparin injection 2,000 Unit s Start: 04-29-2023 End: 05-18-2023 Heparin (Porcine) 5,000 unit /mL Solution Discontinued 0 U IV DIRECTED as needed for dose adjustment 1 1 April 29, 2023 1:00am May 18, 2023 9:52am Start: 04-29-2023 End: 05-18-2023 Heparin (Porcine) In 5 % Dex 25,000 unit/250 mL(100 unit/mL) Parenteral Solution Discontinued 10011 U CONT INF .Q25H 1 1 April 29, 2023 1:00am May 18, 2023 9:52am Please contact the information source for Protocol details. Start: 04-29-2023 End: 05-18-2023 Heparin (Porcine) Discontinu ed 0 UNIT IV DIRECTED 1 April 29, 2023 1:00am May 18, 2023 9:52am hydrocortisone 10 mg/ml / neomycin 3.5 mg/ml / polymyxin b 71722 unt/ml otic solution (9 sources) Aminoglycoside Antibacterial, Polymyxin-class Antibacterial, Corticosteroid Start: 09-01-2023 End: 09-11-2023 Jhwsmtyo-Qfvajxzms-Sg 3.5-10,000-1 mg/mL-unit/mL-% solution Discontinued 4 NMA OTIC Q8H 10 10 0 September 01, 2023 12:00am September 10, 2023 12:00am September 11, 2023 12:05am Start: 09-01-2023 End: 09-11-2023 Adieqjnh-Gvzeentpa-Uz Discon tinued 4 DRP OTIC Q8H 10 10 September 01, 2023 12:00am September 11, 2023 12:05am iohexol 300 mg injection (OMNIPAQUE 300) (2 sources) Start: 08-24-2024 End: 08-24-2024 iohexol 300 mg injection (OMNIPAQUE 300) Start: 08-24-2024 End: 08-24-2024 300 mg, OTHER, ONCE, 1 dose, On 08/24/24 at 0930 isopropyl alcohol 0.7 ml/ml medicated pad (1 source) Start: 05-30-2019 Alcohol Prep P ad TEST BLOOD SUGAR 2-3 TIMES DAILY Refills: 0 Start : 30-May-2019 Active 24 hr isosorbide mononitrate 60 mg extended release oral tablet (20 sources) Start: 05-07-2024 End: 11-03-2024 Isosorbide Mononitrate 60 mg tablet extended release 24 hr Discontinued 60 mg PO .COMPLEX 90 3 October 20, 2024 2:43pm November 03, 2024 1:56pm 60 mg orally; Take with 30 mg isosorbide to equal 90mg daily Start: 05-07-2024 End: 11-03-2024 Isosorbide Mononitrate 30 mg tablet extended release 24 hr Discontinued 30 mg PO .COMPLEX 90 October 20, 2024 2:43pm November 03, 2024 1:56pm 30 mg orally; Take with 60mg isosorbide to equal 90mg daily Start: 05-18-2023 isosorbide mon onitrate ER (IMDUR) 60 mg 24 hr tablet Take 90 mg by mouth once daily. 05/18/2023 Active Start: 05-18-2023 isosorbide mon onitrate ER (IMDUR) 60 mg 24 hr tablet Start: 05-18-2023 End: 05-07-2024 take 1 tablet by mouth once daily, then take 1 tablet by mouth every twenty-four hours Isosorbide Mononitrate 60 mg tablet extended release 24 hr Discontinued 60 mg PO DAILY 90 3 December 10, 2023 12:01pm May 07, 2024 5:16pm Start: 06-25-2022 End: 05-07-2024 take 1 tablet by mouth once daily, then take 3 tablets by mouth once daily Isosorbide Mononitrate 30 mg tablet extended release 24 hr Discontinued 30 mg PO DAILY 90 3 December 10, 2023 12:04pm May 07, 2024 5:16pm Adding to her 60mg isosorbide to equal 90mg daily Start: 12-20-2017 End: 03-21-2018 take 1 tablet by mouth three times daily isosorbide mononitrate (IMDUR) 30 MG 24 hr tablet Indications: Coronary artery disease involving [place] coronary artery of [place] heart without angina pectoris Take 1 (one) tablet (30 mg total) by mouth 3 (three) times a day. 270 tablet 2 12/20/2017 03/21/2018 Discontinued (Alternate therapy) Start: 03-26-2017 isosorbide mon onitrate (IMDUR) 30 MG 24 hr tablet Indications: Coronary artery disease involving [place] coronary artery of [place] heart without angina pectoris TAKE 1 TABLET THREE TIMES A DAY 270 tablet 2 03/26/2017 Active End: 01-02-2019 take 1 tablet by mouth twice daily, then take 1 tablet by mouth every twenty-four hours isosorbide mononitrate (IMDUR) 30 MG 24 hr tablet Take 30 mg by mouth 2 (two) times a day . 0 01/02/2019 Discontinued (Patient's Request) Comment on above: Take 90 mg by mouth once daily. isosorbide dinitrate 40 mg oral tablet (2 sources) Nitrate Vasodilator End: 3 take 1 tablet by mouth once daily isosorbide dinitrate (Isordil) 40 MG tablet Take 40 mg by mouth daily. 0 05/01/2023 Discontinued (Stop taking at discharge) 10 ml lidocaine hydrochloride 10 mg/ml injection (2 sources) Antiarrhythmic, Amide Local Anesthetic Start: End: lidocaine (PF) 10 mg/mL (1 %) 100 mg injection (XYLOCAINE) Start: 08-24-2024 End: 08-24-2024 100 mg, OTHER, ONCE, 1 dose, On Sat08/24/24 at 0930 LORazepam 1 mg oral tablet (20 sources) Benzodiazepine Start: 04-22-2019 End: 02-16-2022 take 1 tablet by mouth at bedtime as needed LORazepam 1 MG Oral Tablet TAKE 1 TABLET Bedtime PRN Quantity: 30 Refills: 0 Ordered: 01-Feb-2022 Carlos Clarke MD Start : 22-Apr-2019 Active take 1 tablet by mouth once gracia y LORazepam (ATIVAN) 0.5 MG tablet Take 0.5 mg by mouth daily . 0 Active Comment on above: Take 1 mg by mouth d aily at bedtime. losartan potassium 50 mg oral tablet (20 sources) Angiotensin 2 Receptor Alexandra Start: 09-03-2023 End: 04-20-2024 Losartan 50 mg tablet Discontinued 25 mg PO DAILY 45 3 December 10, 2023 12:03pm April 20, 2024 12:10pm Start: 09-03-2023 take 25 mg by mouth once daily Losartan Active 25 MG PO DAILY September 03, 2023 2:57pm Start: 07-02-2023 End: 04-20-2024 take 1 tablet by mouth once daily losartan (COZAAR) 25 mg tablet Indications: Type 2 diabetes mellitus without retinopathy (HCC) Take 1 tablet by mouth once daily. 90 tablet 11/26/2023 04/20/2024 Discontinued (Other) Start: 05-18-2023 End: 09-03-2023 take 1 tablet by mouth twice daily Losartan 50 mg tablet Discontinued 50 mg PO TWICE A DAY 60 0 May 18, 2023 1:00am September 03, 2023 2:59pm Start: 05-02-2023 End: 05-01-2024 take 1 tablet by mouth once daily losartan (Cozaar) 50 MG tablet Take 1 tablet (50 mg) by mouth daily. Do not start before May 02, 2023. 30 tablet 11 05/02/2023 05/01/2024 Active Start: 04-29-2023 End: 05-01-2023 losartan (Cozaar) tablet 25 mg Start: 03-11-2023 End: 05-01-2023 losartan (Cozaar) 25 MG tabl et Take 12.5 mg by mouth. 0 03/11/2023 05/01/2023 Discontinued (Stop taking at discharge) Start: 03-11-2023 End: 06-05-2023 take 2 tablets by mouth once daily Losartan 25 mg tablet Discontinued 50 mg PO DAILY March 11, 2023 12:00am June 05, 2023 10:05am Start: 03-11-2023 End: 06-05-2023 take 50 mg by mouth once daily Losartan Discontinued 5 0 MG PO DAILY March 11, 2023 12:00am June 05, 2023 10:05am Start: 03-11-2023 take 12.5 mg by mout h once daily Losartan Active 12.5 MG PO DAILY March 10, 2023 11:00pm Start: 12-03-2022 End: 10-07-2023 take 0.5 tablet by mouth once daily losartan (COZAAR) 25 mg tablet Indications: Type 2 diabetes mellitus without retinopathy (HCC) Take 0.5 tablets by mouth once daily. 45 tablet 1 12/03/2022 04/10/2023 Discontinued Comment on above: Take 0.5 tablets by mouth once daily. Take 1 tablet by holly th once daily. magnesium citrate 58.2 mg/ml oral solution (20 sources) Start: 05-30-2019 take 300 mL by mouth once daily Magnesium Citrate 1.745 GM/30ML Oral Solution TAKE 300 ML Daily Quantity: 0 Refills: 0 Ordered: 30-May-2019 DO Start : 30-May-2019 Active magnesium gluconate 250 mg oral tablet (20 sources) Start: 01-28-2021 End: 05-18-2023 take 250 mg by mouth once daily Magnesium Gluconate Discontinued 250 MG PO DAILY January 28, 2021 12:00am May 18, 2023 9:52am magnesium glucon ate (MAGONATE) 27.5 mg (500 mg) tablet Take 500 mg by mouth daily . 0 Active magnesium glucon ate (MAGONATE) 27.5 mg (500 mg) tablet Take 250 mg by mouth daily . 0 Active take 1 tablet by mouth twice gonzalez ly magnesium gluconate (MAGONATE) 27.5 mg (500 mg) tablet Take 1,000 mg by mouth 2 (two) times a day. Active Magnesium Gluconate 12.5 mg magne- sium (250 mg) Tablet (7 sources) Start: 01-28-2021 End: 05-18-2023 take 1 tablet by mouth once daily Magnesium Gluconate 12.5 mg magne- sium (250 mg) Tablet Discontinued 250 mg PO DAILY January 28, 2021 12:00am May 18, 2023 9:52am 50 ml magnesium sulfate 40 mg/ml injection (6 sources) Start: 04-30-2023 End: 05-01-2023 magnesium sulfate IVPB premix 2,000 mg mecobalamin 5 mg oral lozenge (20 sources) Start: 10-26-2021 End: 05-18-2023 take 5000 ug by mouth once daily Mecobalamin (Vitamin B12) 5,000 mcg lozenge Discontinued 5000 ug PO DAILY October 26, 2021 12:00am May 18, 2023 9:52am allow to dissolve in mouth OR may chew lightly before swallowing metOLazone 2.5 mg oral tablet (8 sources) Thiazide-like Diuretic Start: 04-22-2019 End: 08-19-2020 take 1 tablet by mouth once daily as needed metOLazone 2.5 MG Oral Tablet TAKE 1 TABLET Daily prn Quantity: 30 Refills: 1 Vince Carlos Start : 22-Apr-2019 Active nitroglycerin 0.4 mg sublingual tablet (20 sources) Nitrate Vasodilator Start: 04-30-2023 End: 04-30-2023 nitroGLYCERIN 50 mg in dextrose 5% 250 mL infusion Start: 10-31-2015 End: 12-24-2024 nitroglycerin sublingual (NI TROQUICK) 0.4 mg SL tablet Dissolve 0.4 mg under the tongue. 10/31/2015 Active Comment on above: Dissolve 0.4 mg unde r the tongue. olmesartan medoxomil 20 mg oral tablet (1 source) Angiotensin 2 Receptor Alexandra Start: 9 End: 9 take 1 tablet by mouth once daily olmesartan (BENICAR) 20 MG tablet Take 1 (one) tablet (20 mg total) by mouth daily . 30 tablet 11 09/05/2018 01/02/2019 Discontinued (Patient's Request) pantoprazole 40 mg delayed release oral tablet (20 sources) Proton Pump Inhibitor Start: 4 End: 5 take 1 tablet by mouth twice daily Pantoprazole 40 mg tablet,delayed release (DR/EC) Discontinued 40 mg PO TWICE A DAY 180 3 December 10, 2023 12:07pm December 24, 2024 3:10pm Start: 05-01-2023 End: 06-27-2023 take 1 tablet by mouth once daily before mealtime pantoprazole DR (PROTONIX) 40 mg tablet Take 1 tablet by mouth once daily. Take on empty stomach, 1/2 hr before meal. 05/07/2023 Active Comment on above: Take 1 tablet by holly th once daily. Take on empty stomach, 1/2 hr before meal. perflutren protein A microsphere (Optison) 3 mL in sodium chloride (PF) 0.9 % 10 mL IV syringe (2 sources) Start: 05-01-20 End: 05-01-20 perflutren protein A microsphere (Optison) 3 mL in sodium chloride (PF) 0.9 % 10 mL IV syringe polyethylene glycol 3350 49448 mg powder for oral solution (20 sources) Osmotic Laxative Start: 04-29-20 End: 05-01-20 take 17 g by mouth every twenty-four hours as needed for constipation polyethylene glycol (PEG) 3350 (Miralax) packet 17 g Start: 05-30-2019 Polyethylene G lycol 3350 17 GM/SCOOP Oral Powder MIX 1 CAPFUL (17GM) IN 8 OUNCES OF WATER, JUICE, OR TEA AND DRINK DAILY. Quantity: 0 Refills: 0 Ordered: 30-May-2019 DO Start : 30-May-2019 Active Start: 05-30-2019 Polyethylene G lycol 3350 Oral Powder MIX 1 CAPFUL (17GM) IN 8 OUNCES OF WATER, JUICE, OR TEA AND DRINK DAILY. Refills: 0 Start : 30-May-2019 Active 119 GM Bottle End: 06-20-2018 polyethylene glycol (GLYCOLA X) 17 gram/dose powder Take 17 g by mouth as needed . 0 06/20/2018 Discontinued (Error) microencapsulated potassium chloride 10 meq extended release oral tablet (12 sources) Start: 05-01-2023 End: 05-01-2023 potassium chloride CR (Klor-Con M10) ER tablet 20 mEq Start: 04-30-2023 End: 04-30-2023 potassium chloride (Klor-Con ) packet 40 mEq Start: 05-30-2019 take 1 tablet by holly th once daily as needed Potassium Chloride Pamela ER 20 MEQ Oral Tablet Extended Release TAKE 1 TABLET Daily prn Refills: 0 Start : 30-May-2019 Active Start: 01-08-2018 End: 08-19-2020 potassium chloride SA (K-DUR,KLOR-CON) 20 MEQ tablet Indications: On potassium wasting diuretic therapy Two tablets (40 mEq total) twice daily . 360 tablet 2 01/08/2018 08/19/2020 Discontinued Start: 12-25-2016 potassium chlo ride SA (K-DUR,KLOR-CON) 20 MEQ tablet Indications: On potassium wasting diuretic therapy Two tablets (40 mEq total) twice daily . 360 tablet 3 12/25/2016 Active predniSONE 10 mg oral tablet (17 sources) Start: 04-20-2024 End: 05-07-2024 take 1 tablet by mouth once daily Prednisone 10 mg tablet Discontinued 10 mg PO DAILY April 20, 2024 1:00am May 07, 2024 5:16pm Start: 04-08-2024 End: 04-20-2024 predniSONE (DELTASONE) 10 mg tablet Indications: Viral bronchitis , Suspected COVID-19 virus infection Take 4 tabs daily x 3 days, then 3 tabs x 3 days, 2 tabs x 3 days, then 1 tab x3 days with food. 30 tablet 04/08/2024 04/20/2024 Active Start: 12-08-2023 End: 04-20-2024 take 2 tablets by mouth once daily Prednisone 20 mg tablet Discontinued 40 mg PO DAILY 18 9 0 December 08, 2023 12:00am April 20, 2024 12:12pm RABEprazole sodium 20 mg delayed release oral tablet (3 sources) Proton Pump Inhibitor End: 06-20-2018 take 1 tablet by mouth once daily RABEprazole (ACIPHEX) 20 mg tablet Take 20 mg by mouth daily. 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 180 tablet 3 10/12/2019 Active Start: 05-30-2019 take 1 tablet by holly th every twelve hours Ranolazine ER 1000 MG Oral Tablet Extended Release 12 Hour TAKE 1 TABLET EVERY 12 HOURS. 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 0 02/10/2014 Active Comment on above: Take 1,000 mg by holly th twice daily. 0.25 mg, 0.5 mg dose 1.5 ml semaglutide 1.34 mg/ml pen injector (20 sources) Start: 01-16-2023 End: 02-15-2023 semaglutide (OZEMPIC) 0.25 mg or 0.5 mg(2 mg/1.5 mL) pen Inject 0.5 mg subcutaneously one time a week. 2 mL 01/16/2023 02/15/2023 Start: 12-28-2021 End: 04-27-2023 Semaglutide (Ozempic) 0.25 m g or 0.5 mg(2 mg/1.5 mL) pen injector Discontinued 0 .ROUTE .COMPLEX 2 5 July 19, 2022 12:07pm April 27, 2023 2:05pm INJECT 0.25MG SUBCUTANEOUSLY ONCE PER WEEK FOR 4 DOSES. Comment on above: Inject 0.25 mg subcu taneously one time a week. Inject 0.5 mg subcut aneously one time a week. Semaglutide (17 sources) Start: 04-27-2023 End: 06-27-2023 Semaglutide (Ozempic) 1 mg/dose (4 mg/3 mL) pen injector Discontinued 1 mg SC EVERY WEEK April 27, 2023 1:00am June 27, 2023 6:27pm Start: 04-27-2023 End: 06-27-2023 Semaglutide (Ozempic) 1 mg/d ose (4 mg/3 mL) pen injector Discontinued 1 MG SC EVERY WEEK April 27, 2023 1:00am June 27, 2023 6:27pm Start: 04-27-2023 End: 06-27-2023 Semaglutide (Ozempic) 1 mg/d ose (4 mg/3 mL) pen injector Discontinued 1 MG SC EVERY WEEK April 27, 2023 12:00am June 27, 2023 5:27pm Start: 04-27-2023 Semaglutide (O zempic) 1 mg/dose (4 mg/3 mL) pen injector Active 1 MG SC EVERY WEEK April 27, 2023 12:00am Start: 04-27-2023 inject 1 mg by subcu taneous injection every week Semaglutide (Semaglutide 1 Mg/Dose (4 Mg/3 Ml) Subcutaneous Pen Injector) 1 mg/dose (4 mg/3 mL) pen injector Active 1 MG SC EVERY WEEK April 27, 2023 12:00am semaglutide (OZEMPIC) 1 mg/dose (4 mg/3 mL) pen (16 sources) Start: 04-10-2023 End: 07-02-2023 inject 1 mg by subcutaneous injection every week semaglutide (OZEMPIC) 1 mg/dose (4 mg/3 mL) pen Indications: Type 2 diabetes mellitus without retinopathy (HCC) Inject 1 mg subcutaneously one time a week. 3 mL 2 04/10/2023 07/02/2023 Discontinued Start: 04-10-2023 End: 07-09-2023 inject 1 mg by subcutaneous injection every week semaglutide (OZEMPIC) 1 mg/dose (4 mg/3 mL) pen Indications: Type 2 diabetes mellitus without retinopathy (HCC) Inject 1 mg subcutaneously one time a week. 3 mL 2 04/10/2023 07/09/2023 Active Start: 03-27-2023 End: 04-10-2023 inject 1 mg by subcutaneous injection every week semaglutide (OZEMPIC) 1 mg/dose (4 mg/3 mL) pen Indications: Type 2 diabetes mellitus without retinopathy (HCC) Inject 1 mg subcutaneously one time a week. 3 mL 0 03/27/2023 04/10/2023 Discontinued Start: 03-27-2023 End: 04-26-2023 inject 1 mg by subcutaneous injection every week semaglutide (OZEMPIC) 1 mg/dose (4 mg/3 mL) pen Indications: Type 2 diabetes mellitus without retinopathy (HCC) Inject 1 mg subcutaneously one time a week. 3 mL 0 03/27/2023 04/26/2023 Active Start: 02-20-2023 End: 03-27-2023 inject 1 mg by subcutaneous injection every week semaglutide (OZEMPIC) 1 mg/dose (4 mg/3 mL) pen Indications: Type 2 diabetes mellitus without retinopathy (HCC) Inject 1 mg subcutaneously one time a week. 3 mL 0 02/20/2023 03/27/2023 Discontinued Start: 02-20-2023 End: 03-22-2023 inject 1 mg by subcutaneous injection every week semaglutide (OZEMPIC) 1 mg/dose (4 mg/3 mL) pen Indications: Type 2 diabetes mellitus without retinopathy (HCC) Inject 1 mg subcutaneously one time a week. 3 mL 0 02/20/2023 03/22/2023 Active Comment on above: Inject 1 mg subcutan eously one time a week. 1000 ml sodium chloride 9 mg/ml injection (2 sources) Start: 023 End: sodium chloride 0.9 % infusion spironolactone 50 mg oral tablet (4 sources) Aldosterone Antagonist Start: 018 End: 019 take 1 tablet by mouth twice daily spironolactone (ALDACTONE) 50 MG tablet Take 1 (one) tablet (50 mg total) by mouth 2 (two) times a day. 180 tablet 2 12/20/2017 01/02/2019 Discontinued (Patient's Request) take 1 tablet by mouth twice gonzalez ly spironolactone (ALDACTONE) 50 MG tablet Take 50 mg by mouth 2 (two) times a day. Active sucralfate 1000 mg oral tablet (20 sources) Aluminum Complex Start: 10-26-2021 End: 05-14-2022 take 1 tablet by mouth at bedtime Sucralfate (Carafate) 1 gram tablet Discontinued 1 g PO before meals and at bedtime 30 0 January 03, 2022 7:51am January 25, 2022 11:08am ticagrelor 90 mg oral tablet (20 sources) Start: 05-18-2023 End: 06-14-2023 take 1 tablet by mouth every twelve hours Ticagrelor (Ticagrelor 90 Mg Tablet) 90 mg tablet Discontinued 90 mg PO Q12H May 18, 2023 1:00am June 14, 2023 3:50pm Start: 04-30-2023 End: 04-30-2024 take 1 tablet by mouth twice daily ticagrelor (BRILINTA) 90 mg tablet Take 1 tablet by mouth two times a day. 05/07/2023 06/25/2023 Discontinued Start: 04-30-2023 End: 04-30-2023 ticagrelor (Brilinta) tablet 180 mg Comment on above: Take 1 tablet by holly th two times a day. urea 400 mg/ml topical cream (10 sources) Start: 06-26-2024 End: 06-26-2025 urea (CARMOL) 40 % Indications: Xerosis cutis Apply to affected area once daily. 198 g 11 06/26/2024 08/20/2024 Discontinued vitamin b12 1 mg oral tablet (20 sources) Vitamin B12 Start: 02-16-2020 take 1 tablet by mouth once daily Vitamin B-12 1000 MCG Oral Tablet Take 1 tablet daily Quantity: 0 Refills: 0 Ordered: 16-Feb-2020 DO Start : 16-Feb-2020 Active take 1 tablet by mouth once gracia y cyanocobalamin (vitamin B-12) 500 MCG tablet Take 500 mcg by mouth daily . 0 Active zinc gluconate 50 mg oral tablet (4 sources) End: 01-02-2019 take 1 tablet by mouth once daily zinc gluconate 50 mg tablet Take 50 mg by mouth daily. 0 01/02/2019 Discontinued (Patient's Request) Problems Active Problems Problem Classification Problem Date Documented Da te Episodic/Chronic Abdominal pain (20 sources) Epigastric pain; Translations: [Epigastric pain] Onset: 5 Episodic Acute and unspecified renal failure (20 sources) Acute renal failure syndrome; Translations: [Acute kidney failure, unspecified] 06-26-2023 Episodic Acute myocardial infarction (20 sources) Myocardial infarction; Translations: [Acute myocardial infarction, unspecified] Onset: 6 Resolved: 6 11-22-2015 Chronic Administrative/social admission (18 sources) Repeated prescription; Translations: [Encounter for issue of repeat prescription] Onset: 5 01-29-2023 Episodic Anxiety disorders (20 sources) Mixed anxiety and depressive disorder; Translations: [Anxiety state, unspecified] Onset: 3 01-15-2023 Chronic Asthma (7 sources) Asthma; Translations: [Unspecified asthma, uncomplicated] 12-16-2023 Chronic Blindness and vision defects (14 sources) Eye / vision finding; Translations: [Unspecified visual disturbance] Onset: 5 12-15-2024 Episodic Cardiac dysrhythmias (20 sources) Palpitations; Translations: [Bradycardia] Onset: 3 Episodic Cataract (20 sources) Bilateral pseudophakia; Translations: [Presence of intraocular lens] Onset: 6 03-06-2016 Chronic Chronic kidney disease (20 sources) Chronic kidney disease stage 3A ; Translations: [Stage 3a chronic kidney disease (HCC)] Onset: 4 10-30-2023 Chronic Chronic obstructive pulmonary disease and bronchiectasis (20 sources) Bronchitis; Translations: [Bronchitis, not specified as acute or chronic] 03-08-2022 Episodic Complication of device; implant or graft (20 sources) Arteriosclerosis of coronary artery bypass graft; Translations: [Atherosclerosis of coronary artery bypass graft(s) without angina pectoris] Onset: 4 Chronic Conditions associated with dizziness or vertigo (20 sources) Dizziness; Translations: [Dizziness and giddiness] Onset: 5 Episodic Coronary atherosclerosis and other heart disease (20 sources) Coronary arteriosclerosis; Translations: [Angina pectoris] Onset: 6 07-26-2016 Chronic Deficiency and other anemia (20 sources) Iron deficiency anemia; Translations: [Iron deficiency anemia, unspecified] Onset: Episodic Deficiency and other anemia (1 source) Anemia; Translations: [Anemia, unspecified] 07-31-2023 Episodic Deficiency and other anemia (2 sources) Normocytic anemia; Translations: [Anemia, unspecified] 11-01-2023 Episodic Delirium, dementia, and amnestic and other cognitive disorders (2 sources) Postconcussion syndrome; Translations: [Postconcussional syndrome] Onset: 5 11-12-2024 Chronic Diabetes mellitus with complications (20 sources) Polyneuropathy due to type 2 diabetes mellitus; Translations: [Diabetes with neurological manifestations, type II or unspecified type, not stated as uncontrolled] Onset: 0 Chronic Diabetes mellitus without complication (20 sources) Type 2 diabetes mellitus; Translations: [Diabetes mellitus] Onset: 6 02-16-2020 Chronic Disorders of lipid metabolism (20 sources) Hyperlipidemia; Translations: [Familial combined hyperlipidemia] Onset: 6 11-22-2015 Chronic E Codes: Fall (2 sources) Fall in home; Translations: [Unspecified fall, initial encounter] 01-29-2023 Episodic Esophageal disorders (20 sources) Gastroesophageal reflux disease; Translations: [Esophageal reflux] Onset: 6 02-08-2006 Chronic Essential hypertension (20 sources) Hypertensive disorder; Translations: [Essential (primary) hypertension] Onset: 6 Resolved: 4 11-22-2015 Chronic Fever of unknown origin (1 source) Fever; Translations: [Fever, unspecified] 02-17-2024 Episodic Fluid and electrolyte disorders (20 sources) Hypokalemia; Translations: [Hypokalemia] 04-27-2023 Episodic Gastroduodenal ulcer (except hemorrhage) (11 sources) Gastric ulcer without hemorrhage AND without perforation; Translations: [Gastric ulcer, unspecified as acute or chronic, without hemorrhage or perforation] 07-31-2023 Chronic Genitourinary symptoms and ill-defined conditions (20 sources) Nocturnal enuresis; Translations: [Nocturnal enuresis] Onset: 1 08-10-2020 Chronic Genitourinary symptoms and ill-defined conditions (20 sources) Urinary symptoms ; Translations: [Other symptoms involving urinary system] Onset: 5 Episodic Headache; including migraine (20 sources) Migraine; Translations: [Migraine, unspecified, without mention of intractable migraine without mention of status migrainosus] Onset: 3 04-29-2023 Chronic Headache; including migraine (20 sources) Headache; Translations: [Headache] Episodic Headache; including migraine (1 source) Headache; including migraine; Translations: [Headache, unspecified headache type] Onset: 5 Heart valve disorders (11 sources) Systolic murmur; Translations: [Cardiac murmur, unspecified] Onset: 3 04-29-2023 Episodic Immunizations and screening for infectious disease (20 sources) Patient encounter status; Translations: [Other specified vaccination] Onset: 4 Episodic Intracranial injury (7 sources) Concussion injury of body structure; Translations: [Concussion] 11-03-2024 Episodic Joint disorders and dislocations; trauma-related (13 sources) Derangement of right knee; Translations: [Unspecified internal derangement of knee] Chronic Malaise and fatigue (20 sources) Fatigue; Translations: [Other fatigue] 10-23-2022 Episodic Menopausal disorders (20 sources) Atrophic vaginitis; Translations: [Postmenopausal atrophic vaginitis] Onset: 4 06-03-2024 Chronic Miscellaneous mental health disorders (3 sources) Primary insomnia; Translations: [Primary insomnia] Onset: 5 08-21-2023 Chronic Mycoses (1 source) Candidal vulvovaginitis; Translations: [Vulvovaginal candidiasis] 02-19-2024 Episodic Nausea and vomiting (20 sources) Nausea and vomiting; Translations: [Nausea with vomiting, unspecified] 05-28-2023 Episodic Nonspecific chest pain (20 sources) Chest pain; Translations: [Chest discomfort] Onset: 4 04-01-2021 Episodic Occlusion or stenosis of precerebral arteries (20 sources) Carotid artery stenosis; Translations: [Occlusion and stenosis of unspecified carotid artery] Onset: 3 Chronic Open wounds of head; neck; and trunk (20 sources) Laceration of ear region; Translations: [Laceration without foreign body of left ear, subsequent encounter] 01-29-2023 Episodic Osteoarthritis (5 sources) Unspecified osteoarthritis, unspecified site; Translations: [Arthropathy, unspecified, site unspecified] Onset: 5 12-09-2024 Chronic Other aftercare (20 sources) Prescribed medication regimen behavior finding; Translations: [Long-term (current) use of other medications] Episodic Other aftercare (2 sources) Long-term current use of benzodiazepine; Translations: [Long-term (current) use of other medications] Episodic Other aftercare (1 source) Drug therapy finding; Translations: [Other assisted (current) drug therapy] Episodic Other aftercare (1 source) Removal of sutures done; Translations: [Encounter for removal of sutures] 01-29-2023 Episodic Other aftercare (1 source) Post-discharge follow-up; Translations: [Encounter for follow-up examination after completed treatment for conditions other than malignant neoplasm] 05-06-2023 Episodic Other and unspecified benign neoplasm (1 source) Angiomyolipoma of kidney; 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] 12-09-2024 Episodic Other and unspecified benign neoplasm (1 source) Benign lipomatous neoplasm of kidney; Translations: [Renal angiomyolipoma] Onset: Episodic Other circulatory disease (15 sources) H/O: heart disorder; Translations: [Personal history of other diseases of the circulatory system] 05-18-2023 Episodic Other circulatory disease (1 source) Low blood pressure; Translations: [Hypotension, unspecified] 08-01-2023 Episodic Other connective tissue disease (20 sources) Myalgia caused by statin; Translations: [Myalgia and myositis, unspecified] Onset: 3 04-29-2023 Episodic Other connective tissue disease (2 sources) Pain of left heel; Translations: [Pain in left foot] 05-27-2024 Episodic Other connective tissue disease (1 source) Plantar fasciitis; Translations: [Plantar fascial fibromatosis] 06-26-2024 Episodic Other connective tissue disease (2 sources) Muscle pain; Translations: [Myalgia, unspecified site] 10-07-2024 Episodic Other connective tissue disease (3 sources) Triggering of digit; Translations: [Trigger finger, right middle finger] 12-09-2024 Episodic Other connective tissue disease (19 sources) Recurrent falls ; Translations: [Repeated falls] Onset: 5 12-15-2024 Episodic Other connective tissue disease (2 sources) Pain of bilateral hands; Translations: [Pain in right hand] 01-27-2025 Episodic Other connective tissue disease (2 sources) Trigger finger, right middle finger; Translations: [Trigger middle finger of right hand] Onset: 5 Episodic Other connective tissue disease (1 source) Pain in right hand; Translations: [Pain in both hands] Onset: 5 Episodic Other connective tissue disease (1 source) Pain in left hand; Translations: [Pain in both hands] Onset: 5 Episodic Other connective tissue disease (1 source) Repeated falls; Translations: [Falls frequently] Onset: 5 Episodic Other diseases of veins and lymphatics (20 sources) Lymphedema; Translations: [Other lymphedema] Onset: 3 04-29-2023 Chronic Other ear and sense organ disorders (9 sources) Otitis externa; Translations: [Unspecified otitis externa, unspecified ear] 09-01-2023 Chronic Other ear and sense organ disorders (2 sources) Unspecified otitis externa, unspecified ear; Translations: [Infective otitis externa, unspecified] 09-01-2023 Chronic Other eye disorders (20 sources) Bilateral vitreous floaters; Translations: [Other vitreous opacities, bilateral] Onset: 6 03-06-2016 Chronic Other eye disorders (1 source) Dry eyes; Translations: [Dry eye syndrome of bilateral lacrimal glands] Episodic Other female genital disorders (3 sources) Pruritus of vagina; Translations: [Other specified noninflammatory disorders of vagina] 03-11-2024 Episodic Other gastrointestinal disorders (20 sources) Constipation; Translations: [Constipation, unspecified] Episodic Other gastrointestinal disorders (20 sources) H/O: abdominal hernia; Translations: [Personal history of other diseases of the digestive system] 01-25-2022 Episodic Other gastrointestinal disorders (20 sources) Heartburn; Translations: [Heartburn] Onset: 3 01-25-2022 Episodic Other hereditary and degenerative nervous system conditions (20 sources) Restless legs; Translations: [Restless legs syndrome (RLS)] Onset: 3 Chronic Other hereditary and degenerative nervous system conditions (20 sources) Myoclonus; Translations: [Myoclonus] Onset: 7 06-12-2017 Chronic Other hereditary and degenerative nervous system conditions (1 source) Essential tremor; Translations: [Essential tremor] 08-01-2023 Chronic Other hereditary and degenerative nervous system conditions (2 sources) Restless legs syndrome; Translations: [RLS (restless legs syndrome)] Onset: 9 Chronic Other inflammatory condition of skin (20 sources) Seborrheic dermatitis of scalp; Translations: [Other seborrheic dermatitis] Onset: 3 04-29-2023 Episodic Other inflammatory condition of skin (1 source) Itching ; Translations: [Pruritus, unspecified] 02-25-2024 Episodic Other injuries and conditions due to external causes (20 sources) Closed injury of head; Translations: [Unspecified injury of head, initial encounter] 04-26-2021 Episodic Other lower respiratory disease (20 sources) Dyspnea; Translations: [Shortness of breath] 03-08-2022 Episodic Other lower respiratory disease (12 sources) Dyspnea, unspecified; Translations: [Other respiratory abnormalities] 10-23-2022 Episodic Other lower respiratory disease (1 source) Cough; Translations: [Acute cough] 05-28-2023 Episodic Other nervous system disorders (20 sources) Narcolepsy; Translations: [Narcolepsy, without cataplexy] Onset: 3 01-15-2023 Chronic Other nervous system disorders (1 source) Peripheral nerve disease ; Translations: [Peripheral neuropathy] Chronic Other nervous system disorders (1 source) Disorder of muscle; Translations: [Myopathy, unspecified] 05-06-2024 Chronic Other nervous system disorders (20 sources) Chronic low back pain; Translations: [Other chronic pain] Onset: 3 12-21-2022 Chronic Other nervous system disorders (1 source) Other chronic pain; Translations: [Chronic bilateral low back pain without sciatica] Onset: 5 Chronic Other nervous system disorders (1 source) Myopathy, unspecified; Translations: [Myopathy] Onset: 4 Chronic Other nervous system disorders (20 sources) Impairment of balance; Translations: [Other abnormalities of gait and mobility] 04-13-2022 Episodic Other nervous system disorders (2 sources) Other abnormalities of gait and mobility; Translations: [Abnormality of gait] Episodic Other non-traumatic joint disorders (1 source) Inflammation of joint of both hands 01-27-2025 Chronic Other non-traumatic joint disorders (1 source) Pain in left knee; Translations: [Pain in joint, lower leg] Episodic Other non-traumatic joint disorders (2 sources) Swelling of knee joint; Translations: [Effusion, right knee] 10-07-2023 Episodic Other nutritional; endocrine; and metabolic disorders (20 sources) Obesity; Translations: [Obesity, unspecified] 04-26-2021 Chronic Other nutritional; endocrine; and metabolic disorders (20 sources) Homocystinemia; 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] Onset: 3 04-26-2021 Chronic Other nutritional; endocrine; and metabolic disorders (6 sources) Obesity, unspecified; Translations: [Obesity, unspecified] Chronic Other nutritional; endocrine; and metabolic disorders (20 sources) Obese class II; Translations: [Obesity, unspecified] Onset: 1 08-10-2020 Chronic Other nutritional; endocrine; and metabolic disorders (2 sources) Homocystinuria; 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] Chronic Other nutritional; endocrine; and metabolic disorders (20 sources) Obese class I; Translations: [Obesity, unspecified] Onset: 3 04-04-2023 Chronic Other nutritional; endocrine; and metabolic disorders (20 sources) History of diabetes mellitus type 2; Translations: [Personal history of other endocrine, nutritional and metabolic disease] 01-25-2022 Episodic Other nutritional; endocrine; and metabolic disorders (7 sources) H/O: diabetes mellitus; Translations: [Personal history of other endocrine, nutritional and metabolic disease] 12-16-2023 Episodic Other screening for suspected conditions (not mental disorders or infectious disease) (1 source) Abnormal findings on diagnostic imaging of other specified body structures; Translations: [Abnormal magnetic resonance angiography (MRA) of neck] Onset: 5 Chronic Other screening for suspected conditions (not mental disorders or infectious disease) (20 sources) Mammography abnormal; Translations: [Other abnormal and inconclusive findings on diagnostic imaging of breast] Onset: 0 08-25-2009 Episodic Other skin disorders (1 source) Asteatosis cutis; Translations: [Xerosis cutis] 06-26-2024 Episodic Other upper respiratory disease (20 sources) Chronic rhinitis; Translations: [Chronic rhinitis] Onset: 6 02-08-2006 Chronic Other upper respiratory infections (20 sources) Upper respiratory infection; Translations: [Acute upper respiratory infection, unspecified] 04-01-2021 Episodic Otitis media and related conditions (11 sources) Otitis media; Translations: [Otitis media, unspecified, unspecified ear] 09-01-2023 Episodic Residual codes; unclassified (20 sources) Obstructive sleep apnea of adult; Translations: [Obstructive sleep apnea (adult)(pediatric)] Chronic Residual codes; unclassified (20 sources) Hypersomnia; Translations: [Hypersomnia, unspecified] Onset: 6 09-13-2015 Chronic Residual codes; unclassified (20 sources) Daytime somnolence; Translations: [Other hypersomnia] Onset: 1 08-10-2020 Chronic Residual codes; unclassified (2 sources) Obstructive sleep apnea (adult) (pediatric); Translations: [LADAN (obstructive sleep apnea)] Onset: Chronic Residual codes; unclassified (13 sources) Menopause present; Translations: [Symptomatic menopausal or female climacteric states] Episodic Residual codes; unclassified (13 sources) Edema; Translations: [Edema, unspecified] Onset: 9 06-20-2018 Episodic Residual codes; unclassified (2 sources) Postmenopausal state; Translations: [Asymptomatic menopausal state] 04-10-2023 Episodic Residual codes; unclassified (1 source) Chill; Translations: [Chills (without fever)] 02-17-2024 Episodic Retinal detachments; defects; vascular occlusion; and retinopathy (10 sources) Nondiabetic proliferative retinopathy; Translations: [Other nondiabetic proliferative retinopathy] Onset: 3 04-29-2023 Chronic Spondylosis; intervertebral disc disorders; other back problems (20 sources) Degeneration of lumbar intervertebral disc; Translations: [Other intervertebral disc degeneration, lumbar region] Onset: 3 01-15-2023 Chronic Sprains and strains (20 sources) Sprain of distal tibiofibular ligament; Translations: [Sprain of tibiofibular (ligament), distal of ankle] Onset: 3 04-26-2021 Episodic Superficial injury; contusion (20 sources) Contusion of auricle of ear; Translations: [Contusion of left ear, subsequent encounter] Onset: 5 01-29-2023 Episodic Systemic lupus erythematosus and connective tissue disorders (2 sources) Mucous membrane dryness; Translations: [Sicca syndrome, unspecified] Onset: 5 12-09-2024 Chronic Unclassified (20 sources) Obstructive sleep apnea syndrome; Translations: [Obstructive sleep apnea (adult) (pediatric)] Onset: 4 03-16-2016 Chronic Unclassified (1 source) Unknown / UNK(Unknown) Onset: 8 Unclassified (6 sources) Patient encounter status; Translations: [Preop cardiovascular exam] Onset: 0 07-23-2019 Unclassified (1 source) Arthritis pain 12-09-2024 Unclassified (1 source) Bilateral stenosis of vertebral arteries 01-26-2025 Unclassified (1 source) Chronic bilateral low back pain without sciatica; Translations: [Chronic bilateral low back pain without sciatica] Onset: 5 Unclassified (1 source) Degeneration of intervertebral disc of lumbar region with discogenic back pain and lower extremity pain; Translations: [Degeneration of intervertebral disc of lumbar region with discogenic back pain and lower extremity pain] Onset: 3 Unclassified (1 source) Suspected COVID-19 virus infection; Translations: [Suspected COVID-19 virus infection] Onset: 4 Unclassified (1 source) Vulvovaginal candidiasis; Translations: [Vulvovaginal candidiasis] Onset: 4 Urinary tract infections (20 sources) Acute urinary tract infection; Translations: [Urinary tract infection, site not specified] 04-01-2021 Episodic Viral infection (1 source) Viral disease; Translations: [Viral infection, unspecified] 08-20-2024 Episodic Past or Other Problems Problem Classification Problem Date Documented Da te Episodic/Chronic Acute bronchitis (18 sources) Acute bronchitis; Translations: [Acute bronchitis] Onset: 04-08-2024 Resolved: 06-27-2021 04-08-2024 Episodic Anxiety disorders (20 sources) Irritability and anger; Translations: [Irritability and anger] Onset: 03-12-2018 03-12-2018 Episodic Biliary tract disease (20 sources) Biliary sludge; Translations: [Other specified disorders of biliary tract] Resolved: 06-16-2019 Chronic Biliary tract disease (20 sources) Gallstone; Translations: [Biliary calculus] Resolved: 10-07-2019 Episodic Coronary atherosclerosis and other heart disease (20 sources) History of coronary artery bypass grafting; Translations: [Patient post percutaneous transluminal coronary angioplasty] Onset: 10-15-2001 08-17-2016 Episodic Deficiency and other anemia (1 source) Anemia, unspecified; Translations: [Normocytic anemia] Onset: 02-19-2024 Episodic Gastrointestinal hemorrhage (20 sources) Hemorrhage of rectum and anus; Translations: [Hemorrhage of anus and rectum] Resolved: 03-15-2015 03-15-2015 Episodic Nutritional deficiencies (20 sources) Iron deficiency; Translations: [Iron deficiency] Onset: 01-12-2015 Resolved: 03-12-2018 03-12-2018 Episodic Other and unspecified benign neoplasm (20 sources) History of polyp of colon; Translations: [Personal history of colonic polyps] Onset: 01-15-2023 01-15-2023 Episodic Other connective tissue disease (16 sources) Synovial cyst of left popliteal space; Translations: [Synovial cyst of popliteal space] Resolved: 07-12-2021 Episodic Other connective tissue disease (1 source) Myalgia, unspecified site; Translations: [Myalgias] Onset: 10-07-2024 Episodic Other connective tissue disease (1 source) Pain in left foot; Translations: [Pain of left heel] Onset: 06-26-2024 Episodic Other endocrine disorders (20 sources) Hypoglycemia; Translations: [Hypoglycemia, unspecified] Resolved: 03-15-2015 03-15-2015 Chronic Other female genital disorders (1 source) Other specified noninflammatory disorders of vagina; Translations: [Vaginal itching] Onset: 03-11-2024 Episodic Other gastrointestinal disorders (20 sources) H/O: gallstones; Translations: [Personal history of other diseases of digestive system] Resolved: 10-07-2019 Episodic Other gastrointestinal disorders (20 sources) Diarrhea; Translations: [Diarrhea, unspecified] Resolved: 03-15-2015 03-15-2015 Episodic Other hematologic conditions (7 sources) H/O: anemia - iron deficient; Translations: [Personal history of diseases of blood and blood-forming organs] Resolved: 07-12-2021 Episodic Other inflammatory condition of skin (1 source) Pruritus, unspecified; Translations: [Itching] Onset: 02-25-2024 Episodic Other lower respiratory disease (7 sources) H/O: pneumonia; Translations: [Personal history of pneumonia (recurrent)] Resolved: 07-12-2021 Episodic Other lower respiratory disease (2 sources) Productive cough ; Translations: [Productive cough] Onset: 04-08-2024 04-08-2024 Episodic Other non-traumatic joint disorders (20 sources) Hip pain; Translations: [Pain in right hip] Onset: 12-21-2022 Episodic Other non-traumatic joint disorders (5 sources) Pain in right knee; Translations: [Pain in joint, lower leg] Onset: 06-03-2024 10-07-2023 Episodic Other non-traumatic joint disorders (1 source) Effusion, right knee; Translations: [Pain and swelling of right knee] Onset: 06-03-2024 Episodic Other nutritional; endocrine; and metabolic disorders (20 sources) Body mass index 30+ - obesity; Translations: [Body Mass Index 35.0-35.9, adult] Resolved: 04-14-2021 Chronic Other nutritional; endocrine; and metabolic disorders (20 sources) H/O: metabolic disorder; Translations: [Personal history of other endocrine, metabolic, and immunity disorders] Resolved: 10-06-2020 Episodic Residual codes; unclassified (20 sources) Sleep apnea; Translations: [Sleep apnea, unspecified] Onset: 02-08-2006 Resolved: 04-03-2014 04-03-2014 Chronic Residual codes; unclassified (5 sources) Swelling - edema - symptom; Translations: [Edema, unspecified] Onset: 06-20-2018 06-20-2018 Episodic Residual codes; unclassified (20 sources) History of chest pain; Translations: [Personal history of other specified diseases] Resolved: 10-06-2020 Episodic Residual codes; unclassified (20 sources) Other specified health status; Translations: [Other drug allergy] Onset: 01-15-2023 01-15-2023 Episodic Spondylosis; intervertebral disc disorders; other back problems (20 sources) Chronic low back pain; Translations: [Lumbago with sciatica, left side] Onset: 12-21-2022 Episodic Unclassified (1 source) Prescribed medication regimen behavior finding; 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 Redd Linda MD Status:PRE [facility] [place] Y Race: C Location: EN Pre-Assessment Diagnosis/Proposed Procedure Planned Operative Procedure(s): EGD Anesthesia History Anesthesia History - pmo consultant: Anesthesia History - pmo consultant Hx Hospitalization Yes: APR 2024- 02/01/25 14:18 [facility] Any Problems With Anesthesia No 02/01/25 14:18 Cholinesterase deficiency No 02/01/25 14:18 You/Your Family Experience Yes: MOTHER DURING HEART 02/01/25 14:18 fever (hyperthermia) with SURGERY Relationship Recent Exposure to Contagious No 06/27/23 11:02 Disease Does patient have nerve No 02/01/25 14:18 stimulator Patient instructed to have device shut off --Does patient have Pacemaker or ICD? When Was Last Pacemaker Check QUESTION #4 FULL TEXT: You/Your Family Experience fever (hyperthermia) with Anesthesia Last Oral Intake Last Oral intake: Last Oral Intake NPO since Meds taken in AM with sips of water? Meds patient instructed to take am of surgery PONV PONV - pmo consultant: PONV - pmo consultant Female Yes 02/01/25 14:18 HX of Motion Sickness No 02/01/25 14:18 HX of N/V After Surgery No 02/01/25 14:18 Non-Smoker Yes 02/01/25 14:18 Duration of Surgery greater No 02/01/25 14:18 than 60 minutes Number of Risk Factors 2 02/01/25 14:18 PONV Score Moderate Risk 02/01/25 14:18 Height Weight Height Weight: Anesthesia: Height Weight Height 5 ft 5 in 12/16/24 13:00 Respiratory Assessment Respiratory Assessment - pmo consultant: Respiratory Tract Infection Hx - pmo consultant Hx Respiratory Tract Infection No 02/01/25 14:18 STOP Sleep Apnea STOP Sleep Apnea - pmo consultant: STOP Sleep Apnea - pmo consultant Hx Hypertension Yes 02/01/25 14:18 Hx Sleep Apnea Yes 02/01/25 14:18 CPAP Yes 02/01/25 14:18 BIPAP No 02/01/25 14:18 Do you snore loudly (louder than talking or can be heard Do you often feel tired/ fatigued/ sleepy during daytime? Has anyone observed you stop breathing during sleep? STOP Results Positive 02/01/25 14:18 QUESTION #5 FULL TEXT : Do you snore loudly (louder than talking or can be heard through closed doors)? 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 Specify any problems Hx of Preganancy in last 3 No 02/01/25 14:18 Months Nurse Filling Out Transfusion [email or web address] 02/01/25 14:18 Questions: Date: 02/01/25 02/01/25 14:18 Time: 14:23 02/01/25 14:18 Patient unable to answer at this time (ie. confused, unrespo /Reproduction History /Reproductive History - pmo consultant: /Reproductive Hx- pmo consultant Hx Now Gestational Age (in weeks): EDC: Hx Hx Para Hx Section [facility] Medical History (Updated 02/01/25 @ 14:28 by Dhaval Griggs) Marijuana use Low iron History of Holter monitoring Bradycardia Atherosclerosis of coronary artery COVID Concussion Hiatal hernia Wears glasses Post-menopausal Alcohol use Ambulates with cane Diabetes Arthritis Rheumatoid arthritis High cholesterol Anemia Acute kidney failure Restless legs Back pain Injury of back Migraine headache Injury of head and neck Blackout Difficulty swallowing Difficulty chewing History of diverticulitis Gastric reflux Former smoker CPAP (continuous positive airway pressure) dependence Sleep apnea Shortness of breath on exertion History of echocardiogram History of stress test Cardiology follow-up encounter History of heart attack History of irregular heartbeat Chest pain Imbalance Headache Epigastric pain Lymphedema Restless legs syn (more content not included)... Normal [facility] CNPNon 01-29-2025 CNPN Normal [facility] CNTHERAPYon 01-27-2025 CNTHERAPY OT/PT/Speech Visit (LTOT) -------- ELSA PUGH ([id number]) 1955 F Date Time Provider Department 01/27/25 10:45 AM TRACI JEAN LTOT Date Time Provider Department Center 01/27/2025 10:45 AM [id number], KRI*LTOT [facility] Reason for Visit: OT EVAL [748] Primary Visit Diagnosis:Arthritis of both hands [M19.041, M19.042] Other Visit Diagnoses:Trigger middle finger of right hand [M65.331] Pain in both hands [M79.641, M79.642] Allergies As of Date: 01/27/2025 Noted Allergy Reaction ASA (SALICYLATES) 07/05/2005 11 - Vomiting AUGMENTIN (AMOXICILLIN-POT CLAVUL*07/05/2005 8 - GI Upset BELLADONNA (BELLADONNA ALKALOIDS) 01/05/2009 5 - Intolerance Comments: GI upset BENAZEPRIL 09/20/2005 3 - Cough Comments: Sep 2005 BUTAZOLIDIN (PHENYLBUTAZONE) 05/07/2023 16 - Unknown CARBIDOPA 07/05/2005 DARVOCET-N 100 (PROPOXYPHENE N-AC*07/05/2005 5 - Intolerance Comments: HEADACHE DOXYCYCLINE 05/07/2023 14 - Other: See Comments Comments: Patient ended up in ER with tongue and throat swelling- allergy not ruled out GUAIFENESIN-SODIUM CITRATE 07/05/2005 IBUPROFEN 07/05/2005 2 - Rash JARDIANCE (EMPAGLIFLOZIN) 05/18/2024 5 - Intolerance Comments: Vaginal itching LEVAQUIN (LEVOFLOXACIN) 02/10/2014 14 - Other: See Comments Comments: Hallucinations anxiety numbness tingling LOPID (GEMFIBROZIL) 07/05/2005 NIACIN 07/05/2005 NIASPAN (NIACIN (ANTIHYPERLIPIDEM*2005 PENICILLINS 02/10/2014 4 - Hives PROVIGIL (MODAFINIL) 08/08/2017 1 - Mental Status Change Comments: hallucinations RAMIPRIL 05/07/2023 16 - Unknown XPUJDDA-VDR-ILU REDUCTASE INHIBIT*12/03/2022 17 - Myalgia SULFA (SULFONAMIDE ANTIBIOTICS) 07/05/2005 TRAMADOL 02/10/2014 14 - Other: See Comments Comments: stroke like symptoms Date Reviewed: 01/25/2025 Reviewed by: Dinorah De Los Santos MA - Fully Assessed Prescriptions as of 01/27/2025 - busPIRone (BUSPAR) 5 mg tablet Take 1 tablet by mouth three times a day as needed. - evolocumab 140 mg/mL subcutaneous pen injector (REPATHA SURECLICK) Inject 140 mg subcutaneously every 2 weeks. - SITagliptin phosphate (JANUVIA) 50 mg tablet Take 1 tablet by mouth once daily. - fenofibrate nanocrystallized (TRICOR) 145 mg tablet Take 1 tablet by mouth once daily. - blood sugar diagnostic (BLOOD GLUCOSE TEST) test strip Test blood sugar(s) 2 times daily. Dx: Type 2 DM - Controlled E11.9 Insulin: No - albuterol HFA (PROVENTIL HFA, VENTOLIN HFA) 90 mcg/actuation inhaler Inhale 2 puffs as instructed every 4 hours as needed for wheezing/shortness of breath. - pregabalin (LYRICA) 150 mg capsule TAKE 1 CAPSULE BY MOUTH TWICE DAILY AT SUPPER AND BEDTIME - metFORMIN (GLUCOPHAGE) 1,000 mg tablet Take 1 tablet by mouth two times a day with meals. - amLODIPine (NORVASC) 5 mg tablet Take 1 tablet by mouth once daily. - citalopram (CELEXA) 40 mg tablet Take 1 tablet by mouth once daily. - aspirin, enteric coated (ASPIRIN, ENTERIC COATED) 81 mg EC tablet Take 1 tablet by mouth once daily. - Lancets Test blood sugar(s) 2 times daily. Dx: Type 2 DM - Controlled E11.9 Insulin: No - CPAP/BIPAP/OTHER Type .CPAPSettings into a note to see current settings/supplies/DME information. - metoprolol succinate ER (TOPROL XL) 25 mg 24 hr tablet Take 0.5 tablets by mouth once daily. - promethazine (PHENERGAN) 25 mg tablet Take 1 tablet by mouth every 6 hours as needed for nausea/vomiting. - clopidogrel (PLAVIX) 75 mg tablet Take 75 mg by mouth once daily. - isosorbide mononitrate ER (IMDUR) 60 mg 24 hr tablet Take 90 mg by mouth once daily. - pantoprazole DR (PROTONIX) 40 mg tablet Take 1 tablet by mouth once daily. Take on empty stomach, 1/2 hr before meal. - cholecalciferol (VITAMIN D-3) 50 mcg (2,000 unit) tablet Take 2,000 Units by mouth once daily. - CPAP/BIPAP/OTHER Formal mask fitting to consider smaller FFM like dreamwear due to dry eyes and supplies for bipap 13/8cmH2O DME [facility] - CPAP/BIPAP/OTHER Replacement auto bipap 13/8 with PS of 5cmH2O DME [facility] - CPAP/BIPAP/OTHER Settings decrease to autobipap 13/8cmH2O DME [facility] - BIPAP DME change for supplies. Pt has a [employer]med Auto BiPAP IPAP max 18, EPAP min 6 CM H2O, PS 5 cmH2O. mask, filters, heated humidity AND tubing, [employer] supplies. LADAN G47.33 - red yeast rice 600 mg tab - ascorbic acid, vitamin C, (VITAMIN C) 500 mg tablet Take 500 mg by mouth daily at bedtime. - nitroglycerin sublingual (NITROQUICK) 0.4 mg SL tablet Dissolve 0.4 mg under the tongue. - MAGNESIUM ORAL Take 300 mg by mouth twice daily. some days takes three tablets - ranolazine ER (RANEXA) 500 mg 12 hr tablet Take 1,000 mg by mouth twice daily. Annotated image of OT HAND/CMC STRENGTHENING last updated by Traci Jean OTR/Nicolette on 01/27/2025 11:25 AM Annotated image of OT HAND TENDON GLIDES (more content not included)... Normal [facility] US CAROTID ARTERIES ALICIA VAS LABon 01-26-2025 US CAROTID ARTERIES ALICIA VAS LAB Normal [facility] CNOVon 01-25-2025 CNOV Normal [facility] CNPNon 01-25-2025 CNPN Normal [facility] CBC W Auto Differential pane l (Bld)on 01-22-2025 Basophils (Bld) [#/Vol] 10*3/uL Normal <0.11 [facility] Comment on above: Order Comment: Speci men Type: BLOOD SPECIMENOrdering Facility: [facility] Address: [address] [place] [address] Performed By: #### 5 7021-8 ####[facility] [id number] [place] [address] [place] Basophils/100 WBC (Bld) 0.3 % Normal [facility] Comment on above: Order Comment: Speci men Type: BLOOD SPECIMENOrdering Facility: [facility] Address: [address] [place] [address] Performed By: #### 5 7021-8 ####[facility] [id number] [place] [address] [place] Differential cell count method Nom (Bld) Auto Normal [facility] Comment on above: Order Comment: Speci men Type: BLOOD SPECIMENOrdering Facility: [facility] Address: [address] [place] [address] Performed By: #### 5 7021-8 ####[facility] JAMMIEBRAGG CITYNCLIA [id number] [place] [address] [place] Eosinophils (Bld) [#/Vol] 0.12 10*3/uL Normal <0.46 [facility] Comment on above: Order Comment: Speci men Type: BLOOD SPECIMENOrdering Facility: [facility] Address: [address] [place] [address] Performed By: #### 5 7021-8 ####[facility] [id number] [place] [address] [place] Eosinophils/100 WBC (Bld) 1.6 % Normal [facility] Comment on above: Order Comment: Speci men Type: BLOOD SPECIMENOrdering Facility: [facility] Address: [address] [place] [address] Performed By: #### 5 7021-8 ####[facility] [id number] [place] [address] [place] Erythrocyte distribution width (RBC) [Ratio] 14.1 % Normal 11.5-15.0 [facility] Comment on above: Order Comment: Speci men Type: BLOOD SPECIMENOrdering Facility: [facility] Address: [address] [place] [address] Performed By: #### 5 7021-8 ####[facility]ITALROBERLIA [id number] [place] [address] [place] Hematocrit (Bld) [Volume fraction] 36.5 % Normal 36.0-46.0 [facility] Comment on above: Order Comment: Speci men Type: BLOOD SPECIMENOrdering Facility: [facility] Address: [address] [place] [address] Performed By: #### 5 7021-8 ####[facility]ITALROBERLIA [id number] [place] [address] [place] Hemoglobin (Bld) [Mass/Vol] 11.9 g/dL Normal 11.5-15.5 [facility] Comment on above: Order Comment: Speci men Type: BLOOD SPECIMENOrdering Facility: [facility] Address: [address] [place] [address] Performed By: #### 5 7021-8 ####[facility] [id number] [place] [address] [place] Immature granulocytes (Bld) [#/Vol] 0.05 10*3/uL Normal <0.10 [facility] Comment on above: Order Comment: Speci men Type: BLOOD SPECIMENOrdering Facility: [facility] Address: [address] [place] [address] Performed By: #### 5 7021-8 ####[facility] [id number] [place] [address] [place] Immature granulocytes/100 WBC (Bld) 0.7 % Normal [facility] Comment on above: Order Comment: Speci men Type: BLOOD SPECIMENOrdering Facility: [facility] Address: [address] [place] [address] Performed By: #### 5 7021-8 ####[facility] [id number] [place] [address] [place] Lymphocytes (Bld) [#/Vol] 1.74 10*3/uL Normal 1.00-4.00 [facility] Comment on above: Order Comment: Speci men Type: BLOOD SPECIMENOrdering Facility: [facility] Address: [address] [place] [address] Performed By: #### 5 7021-8 ####[facility] [id number] [place] [address] [place] Lymphocytes/100 WBC (Bld) 22.7 % Normal [facility] Comment on above: Order Comment: Speci men Type: BLOOD SPECIMENOrdering Facility: [facility] Address: [address] [place] [address] Performed By: #### 5 7021-8 ####[facility] [id number] [place] [address] [place] MCH (RBC) [Entitic mass] 28.2 pg Normal 26.0-34.0 [facility] Comment on above: Order Comment: Speci men Type: BLOOD SPECIMENOrdering Facility: [facility] Address: [address] [place] [address] Performed By: #### 5 7021-8 ####[facility] [id number] [place] [address] [place] MCHC (RBC) [Mass/Vol] 32.6 g/dL Normal 30.5-36.0 [facility] Comment on above: Order Comment: Speci men Type: BLOOD SPECIMENOrdering Facility: [facility] Address: [address] [place] [address] Performed By: #### 5 7021-8 ####[facility] [id number] [place] [address] [place] MCV (RBC) [Entitic vol] 86.5 fL Normal 80.0-100.0 [facility] Comment on above: Order Comment: Speci men Type: BLOOD SPECIMENOrdering Facility: [facility] Address: [address] [place] [address] Performed By: #### 5 7021-8 ####[facility] [id number] [place] [address] [place] Monocytes (Bld) [#/Vol] 0.73 10*3/uL Normal <0.87 [facility] Comment on above: Order Comment: Speci men Type: BLOOD SPECIMENOrdering Facility: [facility] Address: [address] [place] [address] Performed By: #### 5 7021-8 ####[facility] ARLEYWNCLIA [id number] [place] [address] [place] Monocytes/100 WBC (Bld) 9.5 % Normal [facility] Comment on above: Order Comment: Speci men Type: BLOOD SPECIMENOrdering Facility: [facility] Address: [address] [place] [address] Performed By: #### 5 7021-8 ####[facility]ITALROBERLIA [id number] [place] [address] [place] Neutrophils (Bld) [#/Vol] 4.99 10*3/uL Normal 1.45-7.50 [facility] Comment on above: Order Comment: Speci men Type: BLOOD SPECIMENOrdering Facility: [facility] Address: [address] [place] [address] Performed By: #### 5 7021-8 ####[facility]ITALNCLIA [id number] [place] [address] [place] Neutrophils/100 WBC (Bld) 65.2 % Normal [facility] Comment on above: Order Comment: Speci men Type: BLOOD SPECIMENOrdering Facility: [facility] Address: [address] [place] [address] Performed By: #### 5 7021-8 ####[facility] JAMMIEWNCLIA [id number] [place] [address] [place] Nucleated RBC (Bld) [#/Vol] 10*3/uL Normal <0.01 [facility] Comment on above: Order Comment: Speci men Type: BLOOD SPECIMENOrdering Facility: [facility] Address: [address] [place] [address] Performed By: #### 5 7021-8 ####[facility] [id number] [place] [address] [place] Nucleated RBC/100 WBC (Bld) [Ratio] 0.0 /100 WBC Normal [facility] Comment on above: Order Comment: Speci men Type: BLOOD SPECIMENOrdering Facility: [facility] Address: [address] [place] [address] Performed By: #### 5 7021-8 ####[facility] [id number] [place] [address] [place] Platelet mean volume (Bld) [Entitic vol] 11.7 fL Normal 9.0-12.7 [facility] Comment on above: Order Comment: Speci men Type: BLOOD SPECIMENOrdering Facility: [facility] Address: [address] [place] [address] Performed By: #### 5 7021-8 ####[facility] [id number] [place] [address] [place] Platelets (Bld) [#/Vol] 248 10*3/uL Normal 150-400 [facility] Comment on above: Order Comment: Speci men Type: BLOOD SPECIMENOrdering Facility: [facility] Address: [address] [place] [address] Performed By: #### 5 7021-8 ####[facility] [id number] [place] [address] [place] RBC (Bld) [#/Vol] 4.22 10*6/uL Normal 3.90-5.20 [facility] Comment on above: Order Comment: Speci men Type: BLOOD SPECIMENOrdering Facility: [facility] Address: [address] [place] [address] Performed By: #### 5 7021-8 ####[facility]BUSLIA [id number] [place] [address] [place] WBC (Bld) [#/Vol] 7.65 10*3/uL Normal 3.70-11.00 [facility] Comment on above: Order Comment: Speci men Type: BLOOD SPECIMENOrdering Facility: [facility] Address: [address] [place] [address] Performed By: #### 5 7021-8 ####[facility] SRAVAN [facility]ITALNCLIA [id number] [place] [id number] [place] CNPNon 01-22-2025 CNPN Normal [facility] CTA HEAD WO/W IVCONon 2024 CTA HEAD WO/W IVCON Normal [facility] CTA Head vessels WO and W co ntrast Russel 01-22-2025 IMPRESSION: No acute findings. No acute infarction, intracranial hemorrhage or intracranial mass lesion. Severe focal stenosis of the V4 segment of the right vertebral artery secondary to calcified atherosclerotic plaque. Moderate focal stenosis of the V4 segment of the left vertebral artery, secondary to calcified atherosclerotic plaque. Arterial blood flow was measured to detect acute large vessel occlusion by computer aided detection software: Not Performed. Concordance between software and imaging review: Not Applicable. County Attorney: PSCB Transcribe Date/Time: Jan 22 2025 3:23P Dictated by : ELEUTERIO GONZALEZ MD This examination was interpreted and the report reviewed and electronically signed by: ELEUTERIO GONZALEZ MD on Jan 22 2025 3:30PM [facility] DIVISION OF RADIOLOGY * * *Final Report* * * DATE OF EXAM: Jan 22 2025 2:44PM [facility] 0023 - CTA HEAD WO/W IVCON / PROCEDURE REASON: multiple diagnoses * * * * Physician Interpretation * * * * EXAMINATION: CTA HEAD WO/W IVCON HISTORY: Dizziness Headache, unspecified headache type Visual changes Abnormal MRA, brain TECHNIQUE: Routine CT of the brain without IV contrast. Next, spiral high resolution axial images were obtained through the head following bolus administration of intravenous contrast for CT angiography. 3D maximum intensity projection images were created, reviewed and archived . MQ: CTABPlus_4 Contrast: 80 mL Omnipaque [address] Radiation dose: Integrated Dose-Length Product (DLP) for this visit = 1538 mGy*cm. CT Dose Reduction Employed: Automated exposure control(AEC) and iterative recon COMPARISON: None. RESULT: Acute change: No evidence of an acute infarct or other acute parenchymal process. ASPECT Score = 10 Hemorrhage: No evidence of acute intracranial hemorrhage. ECASS hemorrhagic transformation score: Not Applicable Mass Effect / Mass Lesion: There is no evidence of an intracranial mass or extra-axial fluid collection. No significant mass effect. Chronic change: None apparent. Parenchyma: There is no significant volume loss. The brain parenchyma is otherwise within normal limits for age. Ventricles: The ventricles are within normal limits of size and configuration for age. Other: The visualized paranasal sinuses are grossly clear. The skull and visualized extracranial soft tissues are grossly normal. ARTERIOGRAM: There is severe focal stenosis of the V4 segment of the right vertebral artery secondary to calcified atherosclerotic plaque. There is moderate focal stenosis of the V4 segment of the left vertebral artery, secondary to calcified atherosclerotic plaque. No intracranial arterial stenosis, aneurysm, or other lesion is otherwise identified. An anterior communicating artery is present. The right posterior communicating arteries within normal limits. The left posterior indicating artery is not visualized. The intracranial internal carotid arteries and the proximal anterior, middle and posterior cerebral arteries appear normal. The left vertebral artery is dominant. The intracranial vertebral arteries and the basilar artery otherwise appear normal. The visualized predominantly proximal segments of the PICAs, AICAs and SCAs appear normal. The visualized dural venous sinuses are patent. Production Superintendent (topogram) images: No significant findings. DIVISION OF RADIOLOGY Provider, [facility] - 01/22/2025 * * *Final Report* * * DATE OF EXAM: Jan 22 2025 2:44PM [facility] 0023 - CTA HEAD WO/W IVCON / PROCEDURE REASON: multiple diagnoses * * * * Physician Interpretation * * * * EXAMINATION: CTA HEAD WO/W IVCON HISTORY: Dizziness Headache, unspecified headache type Visual changes Abnormal MRA, brain TECHNIQUE: Routine CT of the brain without IV contrast. Next, spiral high resolution axial images were obtained through the head following bolus administration of intravenous contrast for CT angiography. 3D maximum intensity projection images were created, reviewed and archived . MQ: CTABPlus_4 Contrast: 80 mL Omnipaque [address] Radiation dose: Integrated Dose-Length Product (DLP) for this visit = 1538 mGy*cm. CT Dose Reduction Employed: Automated exposure control(AEC) and iterative recon COMPARISON: None. RESULT: Acute change: No evidence of an acute infarct or other acute parenchymal process. ASPECT Score = 10 Hemorrhage: No evidence of acute intracranial hemorrhage. ECASS hemorrhagic transformation score: Not Applicable Mass Effect / Mass Lesion: There is no evidence of an intracranial mass or extra-axial fluid collection. No significant mass effect. Chronic change: None apparent. Parenchyma: There is no significant volume loss. The brain parenchyma is otherwise within normal limits for age. Ventricles: The ventricles are within normal limits of size and configuration for age. Other: The visualized paranasal sinuses are grossly clear. The skull and visualized extracranial soft tissues are grossly normal. ARTERIOGRAM: There is severe focal stenosis of the V4 segment of the right vertebral artery secondary to calcified atherosclerotic plaque. There is moderate focal stenosis of the V4 segment of the left vertebral artery, secondary to calcified atherosclerotic plaque. No intracranial arterial stenosis, aneurysm, or other lesion is otherwise identified. An anterior communicating artery is present. The right posterior communicating arteries within normal limits. The left posterior indicating artery is not visualized. The intracranial internal carotid arteries and the proximal anterior, middle and posterior cerebral arteries appear normal. The left vertebral artery is dominant. The intracranial vertebral arteries and the basilar artery otherwise appear normal. The visualized predominantly proximal segments of the PICAs, AICAs and SCAs appear normal. The visualized dural venous sinuses are patent. Production Superintendent (topogram) images: No significant findings. IMPRESSION IMPRESSION: No acute findings. No acute infarction, intracranial hemorrhage or intracranial mass lesion. Severe focal stenosis of the V4 segment of the right vertebral artery secondary to calcified atherosclerotic plaque. Moderate focal stenosis of the V4 segment of the left vertebral artery, secondary to calcified atherosclerotic plaque. Arterial blood flow was measured to detect acute large vessel occlusion by computer aided detection software: Not Performed. Concordance between software and imaging review: Not Applicable. County Attorney: PSCB Transcribe Date/Time: Jan 22 2025 3:23P Dictated by : ELEUTERIO GONZALEZ MD This examination was interpreted and the report reviewed and electronically signed by: ELEUTERIO GONZALEZ MD on Jan 22 2025 3:30PM EST [facility] Radiology Study observation (narrative) [facility] CTA Head vessels WO and W co ntrast IVOrdered By: [facility] Provider on 01-22-2025 [facility] Creatinine and Glomerular fi ltration rate.predicted panel (S/P/Bld)on 01-22-2025 Creatinine [Mass/Vol] 0.95 mg/dL Normal 0.58-0.96 [facility] Comment on above: Order Comment: Abbey hale Type: BLOOD SPECIMENOrdering Facility: [facility] Address: [address] [place] [address] Performed By: #### 4 5066-8 ####[facility] [id number] [place] [address] [place] eGFRcr SerPlBld CKD-EPI 2020 65 mL/min/1.73m??? Normal >=60 [facility] Comment on above: Order Comment: Abbey hale Type: BLOOD SPECIMENOrdering Facility: [facility] Address: [address] [place] [address] Result Comment: Venkatesh mated Glomerular Filtration Rate (eGFR) is calculated using the 2020 CKD-EPI creatinine equation. This equation utilizes serum creatinine, sex, and age as parameters. The creatinine assay has traceable calibration to isotope dilution-mass spectrometry. Refer to KDIGO guidelines for clinical interpretation. In patients with unstable renal function, e.g. those with acute kidney injury, the eGFR may not accurately reflect actual GFR. Performed By: #### 4 5066-8 ####[facility] [id number] [place] [address] [place] HbA1c (Bld)on 01-22-2025 Average glucose Estimated from glycated hemoglobin (Bld) [Mass/Vol] 229 mg/dL Normal [facility] Comment on above: Order Comment: Abbey hale Type: BLOOD SPECIMENOrdering Facility: [facility] Address: [address] [place] [address] Result Comment: eAG: (Estimated average glucose) is a calculated value from HgbA1c and is residential sales representative of the average blood glucose level in the last 2-3 month period. Performed By: #### [id number] ####[facility] LABCLIA [id number] [place] [address] [place] HbA1c (Bld) [Mass fraction] 9.6 % High 4.3-5.6 [facility] Comment on above: Order Comment: Speci men Type: BLOOD SPECIMENOrdering Facility: [facility] Address: [address] [place] [address] Result Comment: [place] Diabetes Association guidelines indicate that patients with HgbA1c in the range 5.7-6.4% are at increased risk for development of diabetes, and intervention by lifestyle modification may be beneficial. HgbA1c greater or equal to 6.5% is considered diagnostic of diabetes. Performed By: #### [id number] ####[facility] LABCLIA [id number] [facility] [id number] [place], [place] [id number] [place] CNPNon 01-21-2025 CNPN Normal [facility] Emergency Department Summary on 01-21-2025 Emergency Department Summary [facility] Medical Records Department [address] [place] [address] Emergency Department Summary 01/21/25 MR#: [id number] Acct: [id number] Name: ELSA PUGH Rep #: [id number] : 1955 69 From: Kai Hernandez DO PCP: Dr. Redd Linda MD Status:DEP ER Location: ED HPI History of Present Illness Chief Complaint: Anxiety Narrative Narrative: 69-year-old female presents with increased anxiety over the last few days. She states she has a history of anxiety and has been on citalopram for years but she has been very stressed recently because her sister is an alcoholic and came to hospital for rehab but then left A. Patient feels like her thoughts are racing and she cannot settle down. She has not been sleeping well. She is not suicidal or homicidal. She sees a primary care doctor but has not established with a counselor or mental health provider as she states her symptoms have never been like this in the past. [facility] Medical History Bradycardia Atherosclerosis of coronary artery COVID Concussion Hiatal hernia Wears glasses Post-menopausal Alcohol use Ambulates with cane Diabetes Arthritis Rheumatoid arthritis High cholesterol Anemia Acute kidney failure Restless legs Back pain Injury of back Migraine headache Injury of head and neck Blackout Difficulty swallowing Difficulty chewing History of diverticulitis Gastric reflux Former smoker CPAP (continuous positive airway pressure) dependence Sleep apnea Shortness of breath on exertion History of echocardiogram History of stress test Cardiology follow-up encounter History of heart attack History of irregular heartbeat Chest pain Imbalance Headache Epigastric pain Lymphedema Restless legs syndrome (RLS) Anxiety and depression Iron deficiency anemia Proliferative diabetic retinopathy Peripheral neuropathy Obesity Hyperhomocystinemia Narcolepsy GERD (gastroesophageal reflux disease) Atherosclerotic heart disease of [place] coronary artery without angina pectoris Atherosclerosis of coronary artery 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 Essential hypertension Hyperlipidemia Obstructive sleep apnea Type 2 diabetes mellitus Home Medications ???Medication ???Instructions ???Recorded ???Last Taken ???Type ascorbate calcium (vitamin C) 500 500 mg PO DAILY 10/26/21 04/19/24 History mg tablet red yeast rice 600 mg capsule 600 mg PO DAILY 10/26/21 04/20/24 History pregabalin 150 mg capsule 150 mg PO BID 02/27/22 04/19/24 Hi story cholecalciferol (vitamin D3) 25 25 mcg PO DAILY 06/04/22 04/19/24 History mcg (1,000 unit) capsule aspirin 81 mg tablet,delayed 81 mg PO DAILY 05/18/23 04/20/24 H istory release (Adult Aspirin Regimen) citalopram 40 mg tablet 40 mg PO DAILY 05/18/23 04/20/24 H istory Handicap Placard #1 ea 06/05/23 Unknown Rx albuterol sulfate 90 mcg/actuation 1 puff inhalation Q6H PRN 04/15/24 Rx aerosol inhaler shortness of breath or wheezing #6.7 grams magnesium 250 mg tablet 250 mg PO BID 09/03/23 04/19/24 Hi story fenofibrate nanocrystallized 145 145 mg PO DAILY #90 tabs 12/10/23 04/20/24 Rx mg tablet evolocumab 140 mg/mL subcutaneous 140 mg subcut Q2W 08/19/24 Unknow n History pen injector (Cece Lawrence) sitagliptin phosphate 50 mg tablet 50 mg PO QDAY 08/19/24 Unknown H istory (Januvia) isosorbide mononitrate 30 mg 30 mg PO DAILY 11/03/24 Unknown Hi story tablet,extended release 24 hr isosorbide mononitrate 60 mg 60 mg PO DAILY 11/03/24 Unknown Hi story tablet,extended release 24 hr metformin 1,000 mg tablet 1,000 mg PO BID 12/16/24 Unknown H istory amlodipine 10 mg tablet 10 mg PO DAILY #90 tabs 12/24/24 U nknown Rx nitroglycerin 0.4 mg sublingual 0.4 mg sublingual Q5-15M PRN chest 12/24/24 Unknown Rx tablet pain #25 tabs pantoprazole 40 mg tablet,delayed 40 mg PO BID #180 tabs 12/24/24 U nknown Rx release clopidogrel 75 mg tablet 75 mg PO QDAY #90 tabs 01/13/25 Un known Rx furosemide 40 mg tablet (Lasix) 40 mg PO DAILY #90 tabs 01/13/25 U nknown Rx ranolazine 1,000 mg 1,000 mg PO BID #180 tabs 01/13/25 Unknown Rx tablet,extended release,12 hr Allergy/AdvReac Type Severity Reaction Status Date / Time aspirin Allergy Rash Verified 01/21/25 13:37 banana Allergy Hives Verified 01/21/25 13:37 canagliflozin (From Invokana) Allergy Anaphylaxis Verified 01/21/25 13:37 kiwi Allergy Hives Verified 01/21/25 13:37 niacin Allergy Rash Verified 01/21/25 13:37 Penicillins (PCN) Allergy Hives Verified 01/21/25 13:37 Sulfa (Sulfonamide Allergy Hives Verified 01/21/25 13:37 Antibiotics) ticagrelor AdvReac Severe Severe Verified 01/21/25 13:37 nausea (more content not included)... Normal [facility] Cardiology Visit Reporton Cardiology Visit Report [facility] [address] [place], [place] [id number] OFFICE VISIT Date of Service: 01/13/25 MR#: [id number] Acct: [id number] Name: ELSA PUGH Rep #: [id number] : 1955 Provider: LINDA haywood Age/Sex: 69/F Location: [facility] Status: Signed HPI HPI History of Present Illness Details: Ms. Tariq is a pleasant 69-year-old lady who presents to the office today for a cardiovascular follow-up visit. She has an extensive cardiac history. Dates back to 2002 when she was evaluated with chest pain and palpitations. She had had cardiac catheterizations in 1997 as well as 2001. At that time significant coronary disease was noted and she underwent coronary bypass surgery in 2001 with a left internal mammary artery to the left anterior descending artery, radial artery to the first obtuse marginal branch, and a sequential saphenous vein graft to the posterior descending artery and second right posterior descending artery. In addition, she had a history of hypertension, hyperlipidemia, low HDL syndrome, hyper homocystinemia, intolerance of statins and pqw-wplpeyy-cslwwenvf diabetes mellitus. She has had numerous cardiac procedures including PCI in 2012 with a drug-eluting stent to the saphenous vein graft to right posterior descending artery, in 2014 with a drug-eluting stent to the proximal LAD and in-stent stenosis of the saphenous vein graft to the posterior descending artery. In 2015 she had a PCI to the saphenous vein graft to the posterior descending artery. In 2016 she had in-stent restenosis of that vessel as well as in 2017. Her catheterization in August 2017 demonstrated a normal left main coronary artery, and left circumflex artery which had 25 to 30% proximal stenosis, and left anterior descending artery which had a stented proximal portion the mid segment had a 40 to 50% stenosis, the left internal mammary artery to the left anterior descending artery was noted to be occluded, the right coronary artery was occluded, the saphenous vein graft to the posterior descending artery was patent. The distal body of the graft was a stented segment with 90% stenosis and therefore she underwent successful catheter-based drug-eluting stent placement to the proximal and distal body of the saphenous vein graft. The radial artery was noted to be previously occluded. Patient presented to the emergency room on 04/27/2023 with complaints of shortness of breath. She thought she was having an allergic reaction to doxycycline, she felt her tongue slightly swell and had shortness of breath. During her emergency room visit, she was noted to have some chest pain as well and describes this as a brief sharp pain to the left chest she was then admitted to the hospital for further evaluation, and underwent a cardiac catheterization on 04/29/2023 which demonstrated left anterior descending occluded, her RCA occluded stent and severe atherosclerosis with an in-stent restenosis in the midportion of the SVG graft as well as there is a lesion at the distal part of the vein graft which is at least 80%, and radial graft to the OM is occluded. She was transferred to [facility] for further evaluation, while at [facility] she underwent 3 drug-eluting stents, and was placed on Brilinta twice daily. Presented to the emergency room on 05/18/2023 with complaints of chest discomfort. Her chest discomfort was atypical at that time. Her troponins were noted to be normal. Cardiology was consulted, and her cardiac catheterization report was reviewed. Patient was instructed to continue her Ranexa, increase isosorbide to 60 mg daily, and increase losartan to 50 mg twice daily. She was evaluated [facility] in April 2024 for chest pain. Her troponin was negative x 3. Invasive evaluation was not felt to be beneficial/needed. She was seen in the emergency department on 11/03/2024 for right sided chest discomfort. Her cardiac workup was negative and she was treated for atypical chest pain associated with viral syndrome. She acknowledges right sided chest pain. This last for minutes. She describes this as sharp and squeezing. This occurs 2-3 times per day. This may wake her up. She acknowledges palpitations and bilateral lower extremity edema. She states shortness breath with activity, shortness of breath at rest, and orthopnea. This is worsening. She states lightheadedness, dizziness, near syncope, weakness, fatigue, and blurry vision. Intake Vital Signs 12/16/24 13:00 01/13/25 14:29 Height 5 ft 5 in 5 ft 5 in Weight: 201 lb 206 lb BMI 33.4 34.2 BP 130/64 H 121/84 H Blood Pressure Location Lt brachial Lt brachial Position Sitting Sitting Respiration 18 18 Pulse 47 L 72 Pulse Source Monitor NIBP Intake Visit Reasons: 4 W FU Enrollment Clerk Required: No Is patient in pain?: No (more content not included)... Normal [facility] [id number] 01-06-2025 [id number] Normal [facility] CNTHERAPYon 01-06-2025 CNTHERAPY Normal [facility] MR Brain WO contraston 01-06 * * *Final Report* * * DATE OF EXAM: Jan 06 2025 11:15AM WRM [id number] - MRI BRAIN WO IVCON / PROCEDURE REASON: multiple diagnoses * * * * Physician Interpretation * * * * EXAMINATION: MRI BRAIN WO IVCON, MRA BRAIN WO IVCON, MRA CAROTID WO IVCON CLINICAL HISTORY: Dizziness, falls and visual changes. Headache. Confusion. Forget fullness. TECHNIQUE: Routine noncontrast MRI brain protocol including diffusion and susceptibility weighted images. Intracranial and carotid 3D [id number] MRA with post-processing performed at the modality and 2D multiplanar and 3D maximum intensity projections were created, reviewed and archived. MQ: MRAB_4 COMPARISON: MRI brain 08/23/2017 RESULT: Images degraded by motion artifact on multiple sequences. MRI BRAIN: Acute Change: There is no evidence of an acute intracranial process. Hemorrhage: A few scattered remote microhemorrhages (such as right posterior centrum semiovale white and left lentiform nucleus) in the supratentorial brain parenchyma, nonspecific and appears new in comparison to prior MRI brain 09/02/2017 considering difference in imaging technique. No MR evidence of a space-occupying or recent intracranial hemorrhage. Mass Lesion/ Mass Effect: No evidence of an intracranial mass or extra-axial fluid collection. No significant mass effect. Chronic Change: Scattered patchy areas of increased T2 and FLAIR signal are present in the supratentorial white matter which is a nonspecific finding but likely represents mild chronic microvascular ischemia, slightly increased in comparison to prior MRI brain 08/23/2017. Parenchyma: There is mild generalized age-appropriate parenchymal volume loss. Ventricles: Ventriculomegaly corresponds to the degree of parenchymal volume loss. Skull Base: Hypothalamic and pituitary region are grossly normal. Craniocervical junction is normal. No significant marrow replacement process. Vasculature: Major intracranial arterial structures, and dural venous sinuses show typical flow void, suggesting patency by spin echo criteria. Other: Trace right mastoid effusion. The visualized paranasal sinuses and left mastoid air cells are clear. The orbits and extracranial soft tissues are unremarkable. Bilateral pseudophakia. NECK/CAROTID MRA: Carotid arteries: Right Common: No significant stenosis. Right Internal Plaque: Atherosclerotic vessel wall irregularities. Right Internal Carotid Stenosis (% by NASCET Criteria): Less than 30% Left Common: No significant stenosis. Left Internal Carotid Plaque: Atherosclerotic vessel irregularities. Left Internal Carotid Stenosis (% by NASCET Criteria): Less than 30%. Cervical Vertebral Arteries: Patency: Bilateral Dominance: Codominant Tiny focal suspected atherosclerotic vascular disease involving bilateral vertebral arteries without high-grade stenosis. INTRACRANIAL MRA: No large vessel occlusion, critical stenosis, or aneurysmal dilatation along the arteries of intracranial anterior and posterior circulation. Intracranial internal carotid arteries, anterior, middle, and posterior cerebral arteries and their proximal branches are patent without high-grade narrowing. Atherosclerotic vessel irregularities involving the intracranial segments of the bilateral internal carotid arteries causing short segment up to mild to moderate stenosis. Multifocal atherosclerotic vessel irregularities along the proximal anterior and middle cerebral arteries with up to mild stenosis. Multifocal atherosclerotic vessel irregularities along the posterior cerebral arteries with short segment up to moderate stenosis. Short segment loss of flow associated signal intensity of the proximal V4 segment bilateral vertebral arteries likely artifactual (in plane saturation artifact). Suboptimal evaluation of the proximal vertebral artery stenosis due to aforementioned artifacts. Suspected short segment moderate to severe on the right and mild on the left stenosis of the V4 segment left vertebral arteries However, normal caliber and flow associated signal intensity distally. Short segment moderate stenosis of the proximal/mid basilar artery. Presumed atherosclerotic vessel wall irregularities the partially visualized distal cervical internal carotid arteries without high-grade stenosis. DIVISION OF RADIOLOGY Provider, [facility] - 01/06/2025 * * *Final Report* * * DATE OF EXAM: Jan 06 2025 11:15AM WR [id number] - MRI BRAIN WO IVCON / PROCEDURE REASON: multiple diagnoses * * * * Physician Interpretation * * * * EXAMINATION: MRI BRAIN WO IVCON, MRA BRAIN WO IVCON, MRA CAROTID WO IVCON CLINICAL HISTORY: Dizziness, falls and visual changes. Headache. Confusion. Forget fullness. TECHNIQUE: Routine noncontrast MRI brain protocol including diffusion and susceptibility weighted images. Intracranial and carotid 3D [id number] MRA with post-processing performed at the modality and 2D multiplanar and 3D maximum intensity projections were created, reviewed and archived. MQ: MRAB_4 COMPARISON: MRI brain 08/23/2017 RESULT: Images degraded by motion artifact on multiple sequences. MRI BRAIN: Acute Change: There is no evidence of an acute intracranial process. Hemorrhage: A few scattered remote microhemorrhages (such as right posterior centrum semiovale white and left lentiform nucleus) in the supratentorial brain parenchyma, nonspecific and appears new in comparison to prior MRI brain 09/02/2017 considering difference in imaging technique. No MR evidence of a space-occupying or recent intracranial hemorrhage. Mass Lesion/ Mass Effect: No evidence of an intracranial mass or extra-axial fluid collection. No significant mass effect. Chronic Change: Scattered patchy areas of increased T2 and FLAIR signal are present in the supratentorial white matter which is a nonspecific finding but likely represents mild chronic microvascular ischemia, slightly increased in comparison to prior MRI brain 08/23/2017. Parenchyma: There is mild generalized age-appropriate parenchymal volume loss. Ventricles: Ventriculomegaly corresponds to the degree of parenchymal volume loss. Skull Base: Hypothalamic and pituitary region are grossly normal. Craniocervical junction is normal. No significant marrow replacement process. Vasculature: Major intracranial arterial structures, and dural venous sinuses show typical flow void, suggesting patency by spin echo criteria. Other: Trace right mastoid effusion. The visualized paranasal sinuses and left mastoid air cells are clear. The orbits and extracranial soft tissues are unremarkable. Bilateral pseudophakia. NECK/CAROTID MRA: Carotid arteries: Right Common: No significant stenosis. Right Internal Plaque: Atherosclerotic vessel wall irregularities. Right Internal Carotid Stenosis (% by NASCET Criteria): Less than 30% Left Common: No significant stenosis. Left Internal Carotid Plaque: Atherosclerotic vessel irregularities. Left Internal Carotid Stenosis (% by NASCET Criteria): Less than 30%. Cervical Vertebral Arteries: Patency: Bilateral Dominance: Codominant Tiny focal suspected atherosclerotic vascular disease involving bilateral vertebral arteries without high-grade stenosis. INTRACRANIAL MRA: No large vessel occlusion, critical stenosis, or aneurysmal dilatation along the arteries of intracranial anterior and posterior circulation. Intracranial internal carotid arteries, anterior, middle, and posterior cerebral arteries and their proximal branches are patent without high-grade narrowing. Atherosclerotic vessel irregularities involving the intracranial segments of the bilateral internal carotid arteries causing short segment up to mild to moderate stenosis. Multifocal atherosclerotic vessel irregularities along the proximal anterior and middle cerebral arteries with up to mild stenosis. Multifocal atherosclerotic vessel irregularities along the posterior cerebral arteries with short segment up to moderate stenosis. Short segment loss of flow associated signal intensity of the proximal V4 segment bilateral vertebral arteries likely artifactual (in plane saturation artifact). Suboptimal evaluation of the proximal vertebral artery stenosis due to aforementioned artifacts. Suspected short segment moderate to severe on the right and mild on the left stenosis of the V4 segment left vertebral arteries However, normal caliber and flow associated signal intensity distally. Short segment moderate stenosis of the proximal/mid basilar artery. Presumed atherosclerotic vessel wall irregularities the partially visualized distal cervical internal carotid arteries without high-grade stenosis. IMPRESSION IMPRESSION: Within limitation of motion artifacts: MRI BRAIN: * No acute intracranial abnormality. Chronic changes as detailed. MRA brain: * No large vessel occlusion, critical stenosis, or aneurysmal dilatation along the arteries of intracranial anterior and posterior circulation. * Intracranial atherosclerotic disease as detailed. Suspected short segment moderate to severe stenosis of the V4 segment right vertebral (more content not included)... [facility] MRA BRAIN WO IVCONon 025 MRA BRAIN WO IVCON Normal [facility] MRA CAROTID WO IVCONon 01-06 MRA CAROTID WO IVCON Normal [facility] MRA Head vessels WO contrast on 01-06-2025 * * *Final Report* * * DATE OF EXAM: Jan 06 2025 11:15AM WRM [id number] - MRA BRAIN WO IVCON / PROCEDURE REASON: multiple diagnoses * * * * Physician Interpretation * * * * EXAMINATION: MRI BRAIN WO IVCON, MRA BRAIN WO IVCON, MRA CAROTID WO IVCON CLINICAL HISTORY: Dizziness, falls and visual changes. Headache. Confusion. Forget fullness. TECHNIQUE: Routine noncontrast MRI brain protocol including diffusion and susceptibility weighted images. Intracranial and carotid 3D [id number] MRA with post-processing performed at the modality and 2D multiplanar and 3D maximum intensity projections were created, reviewed and archived. MQ: MRAB_4 COMPARISON: MRI brain 08/23/2017 RESULT: Images degraded by motion artifact on multiple sequences. MRI BRAIN: Acute Change: There is no evidence of an acute intracranial process. Hemorrhage: A few scattered remote microhemorrhages (such as right posterior centrum semiovale white and left lentiform nucleus) in the supratentorial brain parenchyma, nonspecific and appears new in comparison to prior MRI brain 09/02/2017 considering difference in imaging technique. No MR evidence of a space-occupying or recent intracranial hemorrhage. Mass Lesion/ Mass Effect: No evidence of an intracranial mass or extra-axial fluid collection. No significant mass effect. Chronic Change: Scattered patchy areas of increased T2 and FLAIR signal are present in the supratentorial white matter which is a nonspecific finding but likely represents mild chronic microvascular ischemia, slightly increased in comparison to prior MRI brain 08/23/2017. Parenchyma: There is mild generalized age-appropriate parenchymal volume loss. Ventricles: Ventriculomegaly corresponds to the degree of parenchymal volume loss. Skull Base: Hypothalamic and pituitary region are grossly normal. Craniocervical junction is normal. No significant marrow replacement process. Vasculature: Major intracranial arterial structures, and dural venous sinuses show typical flow void, suggesting patency by spin echo criteria. Other: Trace right mastoid effusion. The visualized paranasal sinuses and left mastoid air cells are clear. The orbits and extracranial soft tissues are unremarkable. Bilateral pseudophakia. NECK/CAROTID MRA: Carotid arteries: Right Common: No significant stenosis. Right Internal Plaque: Atherosclerotic vessel wall irregularities. Right Internal Carotid Stenosis (% by NASCET Criteria): Less than 30% Left Common: No significant stenosis. Left Internal Carotid Plaque: Atherosclerotic vessel irregularities. Left Internal Carotid Stenosis (% by NASCET Criteria): Less than 30%. Cervical Vertebral Arteries: Patency: Bilateral Dominance: Codominant Tiny focal suspected atherosclerotic vascular disease involving bilateral vertebral arteries without high-grade stenosis. INTRACRANIAL MRA: No large vessel occlusion, critical stenosis, or aneurysmal dilatation along the arteries of intracranial anterior and posterior circulation. Intracranial internal carotid arteries, anterior, middle, and posterior cerebral arteries and their proximal branches are patent without high-grade narrowing. Atherosclerotic vessel irregularities involving the intracranial segments of the bilateral internal carotid arteries causing short segment up to mild to moderate stenosis. Multifocal atherosclerotic vessel irregularities along the proximal anterior and middle cerebral arteries with up to mild stenosis. Multifocal atherosclerotic vessel irregularities along the posterior cerebral arteries with short segment up to moderate stenosis. Short segment loss of flow associated signal intensity of the proximal V4 segment bilateral vertebral arteries likely artifactual (in plane saturation artifact). Suboptimal evaluation of the proximal vertebral artery stenosis due to aforementioned artifacts. Suspected short segment moderate to severe on the right and mild on the left stenosis of the V4 segment left vertebral arteries However, normal caliber and flow associated signal intensity distally. Short segment moderate stenosis of the proximal/mid basilar artery. Presumed atherosclerotic vessel wall irregularities the partially visualized distal cervical internal carotid arteries without high-grade stenosis. DIVISION OF RADIOLOGY Provider, [facility] - 01/06/2025 * * *Final Report* * * DATE OF EXAM: Jan 06 2025 11:15AM [facility] 0272 - MRA BRAIN WO IVCON / PROCEDURE REASON: multiple diagnoses * * * * Physician Interpretation * * * * EXAMINATION: MRI BRAIN WO IVCON, MRA BRAIN WO IVCON, MRA CAROTID WO IVCON CLINICAL HISTORY: Dizziness, falls and visual changes. Headache. Confusion. Forget fullness. TECHNIQUE: Routine noncontrast MRI brain protocol including diffusion and susceptibility weighted images. Intracranial and carotid 3D [id number] MRA with post-processing performed at the modality and 2D multiplanar and 3D maximum intensity projections were created, reviewed and archived. MQ: MRAB_4 COMPARISON: MRI brain 08/23/2017 RESULT: Images degraded by motion artifact on multiple sequences. MRI BRAIN: Acute Change: There is no evidence of an acute intracranial process. Hemorrhage: A few scattered remote microhemorrhages (such as right posterior centrum semiovale white and left lentiform nucleus) in the supratentorial brain parenchyma, nonspecific and appears new in comparison to prior MRI brain 09/02/2017 considering difference in imaging technique. No MR evidence of a space-occupying or recent intracranial hemorrhage. Mass Lesion/ Mass Effect: No evidence of an intracranial mass or extra-axial fluid collection. No significant mass effect. Chronic Change: Scattered patchy areas of increased T2 and FLAIR signal are present in the supratentorial white matter which is a nonspecific finding but likely represents mild chronic microvascular ischemia, slightly increased in comparison to prior MRI brain 08/23/2017. Parenchyma: There is mild generalized age-appropriate parenchymal volume loss. Ventricles: Ventriculomegaly corresponds to the degree of parenchymal volume loss. Skull Base: Hypothalamic and pituitary region are grossly normal. Craniocervical junction is normal. No significant marrow replacement process. Vasculature: Major intracranial arterial structures, and dural venous sinuses show typical flow void, suggesting patency by spin echo criteria. Other: Trace right mastoid effusion. The visualized paranasal sinuses and left mastoid air cells are clear. The orbits and extracranial soft tissues are unremarkable. Bilateral pseudophakia. NECK/CAROTID MRA: Carotid arteries: Right Common: No significant stenosis. Right Internal Plaque: Atherosclerotic vessel wall irregularities. Right Internal Carotid Stenosis (% by NASCET Criteria): Less than 30% Left Common: No significant stenosis. Left Internal Carotid Plaque: Atherosclerotic vessel irregularities. Left Internal Carotid Stenosis (% by NASCET Criteria): Less than 30%. Cervical Vertebral Arteries: Patency: Bilateral Dominance: Codominant Tiny focal suspected atherosclerotic vascular disease involving bilateral vertebral arteries without high-grade stenosis. INTRACRANIAL MRA: No large vessel occlusion, critical stenosis, or aneurysmal dilatation along the arteries of intracranial anterior and posterior circulation. Intracranial internal carotid arteries, anterior, middle, and posterior cerebral arteries and their proximal branches are patent without high-grade narrowing. Atherosclerotic vessel irregularities involving the intracranial segments of the bilateral internal carotid arteries causing short segment up to mild to moderate stenosis. Multifocal atherosclerotic vessel irregularities along the proximal anterior and middle cerebral arteries with up to mild stenosis. Multifocal atherosclerotic vessel irregularities along the posterior cerebral arteries with short segment up to moderate stenosis. Short segment loss of flow associated signal intensity of the proximal V4 segment bilateral vertebral arteries likely artifactual (in plane saturation artifact). Suboptimal evaluation of the proximal vertebral artery stenosis due to aforementioned artifacts. Suspected short segment moderate to severe on the right and mild on the left stenosis of the V4 segment left vertebral arteries However, normal caliber and flow associated signal intensity distally. Short segment moderate stenosis of the proximal/mid basilar artery. Presumed atherosclerotic vessel wall irregularities the partially visualized distal cervical internal carotid arteries without high-grade stenosis. IMPRESSION IMPRESSION: Within limitation of motion artifacts: MRI BRAIN: * No acute intracranial abnormality. Chronic changes as detailed. MRA brain: * No large vessel occlusion, critical stenosis, or aneurysmal dilatation along the arteries of intracranial anterior and posterior circulation. * Intracranial atherosclerotic disease as detailed. Suspected short segment moderate to severe stenosis of the V4 segment right vertebral (more content not included)... [facility] MRA Neck vessels WO contrast on 01-06-2025 * * *Final Report* * * DATE OF EXAM: Jan 06 2025 11:15AM [facility] 0275 - MRA CAROTID WO IVCON / PROCEDURE REASON: multiple diagnoses * * * * Physician Interpretation * * * * EXAMINATION: MRI BRAIN WO IVCON, MRA BRAIN WO IVCON, MRA CAROTID WO IVCON CLINICAL HISTORY: Dizziness, falls and visual changes. Headache. Confusion. Forget fullness. TECHNIQUE: Routine noncontrast MRI brain protocol including diffusion and susceptibility weighted images. Intracranial and carotid 3D [id number] MRA with post-processing performed at the modality and 2D multiplanar and 3D maximum intensity projections were created, reviewed and archived. MQ: MRAB_4 COMPARISON: MRI brain 08/23/2017 RESULT: Images degraded by motion artifact on multiple sequences. MRI BRAIN: Acute Change: There is no evidence of an acute intracranial process. Hemorrhage: A few scattered remote microhemorrhages (such as right posterior centrum semiovale white and left lentiform nucleus) in the supratentorial brain parenchyma, nonspecific and appears new in comparison to prior MRI brain 09/02/2017 considering difference in imaging technique. No MR evidence of a space-occupying or recent intracranial hemorrhage. Mass Lesion/ Mass Effect: No evidence of an intracranial mass or extra-axial fluid collection. No significant mass effect. Chronic Change: Scattered patchy areas of increased T2 and FLAIR signal are present in the supratentorial white matter which is a nonspecific finding but likely represents mild chronic microvascular ischemia, slightly increased in comparison to prior MRI brain 08/23/2017. Parenchyma: There is mild generalized age-appropriate parenchymal volume loss. Ventricles: Ventriculomegaly corresponds to the degree of parenchymal volume loss. Skull Base: Hypothalamic and pituitary region are grossly normal. Craniocervical junction is normal. No significant marrow replacement process. Vasculature: Major intracranial arterial structures, and dural venous sinuses show typical flow void, suggesting patency by spin echo criteria. Other: Trace right mastoid effusion. The visualized paranasal sinuses and left mastoid air cells are clear. The orbits and extracranial soft tissues are unremarkable. Bilateral pseudophakia. NECK/CAROTID MRA: Carotid arteries: Right Common: No significant stenosis. Right Internal Plaque: Atherosclerotic vessel wall irregularities. Right Internal Carotid Stenosis (% by NASCET Criteria): Less than 30% Left Common: No significant stenosis. Left Internal Carotid Plaque: Atherosclerotic vessel irregularities. Left Internal Carotid Stenosis (% by NASCET Criteria): Less than 30%. Cervical Vertebral Arteries: Patency: Bilateral Dominance: Codominant Tiny focal suspected atherosclerotic vascular disease involving bilateral vertebral arteries without high-grade stenosis. INTRACRANIAL MRA: No large vessel occlusion, critical stenosis, or aneurysmal dilatation along the arteries of intracranial anterior and posterior circulation. Intracranial internal carotid arteries, anterior, middle, and posterior cerebral arteries and their proximal branches are patent without high-grade narrowing. Atherosclerotic vessel irregularities involving the intracranial segments of the bilateral internal carotid arteries causing short segment up to mild to moderate stenosis. Multifocal atherosclerotic vessel irregularities along the proximal anterior and middle cerebral arteries with up to mild stenosis. Multifocal atherosclerotic vessel irregularities along the posterior cerebral arteries with short segment up to moderate stenosis. Short segment loss of flow associated signal intensity of the proximal V4 segment bilateral vertebral arteries likely artifactual (in plane saturation artifact). Suboptimal evaluation of the proximal vertebral artery stenosis due to aforementioned artifacts. Suspected short segment moderate to severe on the right and mild on the left stenosis of the V4 segment left vertebral arteries However, normal caliber and flow associated signal intensity distally. Short segment moderate stenosis of the proximal/mid basilar artery. Presumed atherosclerotic vessel wall irregularities the partially visualized distal cervical internal carotid arteries without high-grade stenosis. DIVISION OF RADIOLOGY Provider, [facility] - 01/06/2025 * * *Final Report* * * DATE OF EXAM: Jan 06 2025 11:15AM [facility] 0275 - MRA CAROTID WO IVCON / PROCEDURE REASON: multiple diagnoses * * * * Physician Interpretation * * * * EXAMINATION: MRI BRAIN WO IVCON, MRA BRAIN WO IVCON, MRA CAROTID WO IVCON CLINICAL HISTORY: Dizziness, falls and visual changes. Headache. Confusion. Forget fullness. TECHNIQUE: Routine noncontrast MRI brain protocol including diffusion and susceptibility weighted images. Intracranial and carotid 3D [id number] MRA with post-processing performed at the modality and 2D multiplanar and 3D maximum intensity projections were created, reviewed and archived. MQ: MRAB_4 COMPARISON: MRI brain 08/23/2017 RESULT: Images degraded by motion artifact on multiple sequences. MRI BRAIN: Acute Change: There is no evidence of an acute intracranial process. Hemorrhage: A few scattered remote microhemorrhages (such as right posterior centrum semiovale white and left lentiform nucleus) in the supratentorial brain parenchyma, nonspecific and appears new in comparison to prior MRI brain 09/02/2017 considering difference in imaging technique. No MR evidence of a space-occupying or recent intracranial hemorrhage. Mass Lesion/ Mass Effect: No evidence of an intracranial mass or extra-axial fluid collection. No significant mass effect. Chronic Change: Scattered patchy areas of increased T2 and FLAIR signal are present in the supratentorial white matter which is a nonspecific finding but likely represents mild chronic microvascular ischemia, slightly increased in comparison to prior MRI brain 08/23/2017. Parenchyma: There is mild generalized age-appropriate parenchymal volume loss. Ventricles: Ventriculomegaly corresponds to the degree of parenchymal volume loss. Skull Base: Hypothalamic and pituitary region are grossly normal. Craniocervical junction is normal. No significant marrow replacement process. Vasculature: Major intracranial arterial structures, and dural venous sinuses show typical flow void, suggesting patency by spin echo criteria. Other: Trace right mastoid effusion. The visualized paranasal sinuses and left mastoid air cells are clear. The orbits and extracranial soft tissues are unremarkable. Bilateral pseudophakia. NECK/CAROTID MRA: Carotid arteries: Right Common: No significant stenosis. Right Internal Plaque: Atherosclerotic vessel wall irregularities. Right Internal Carotid Stenosis (% by NASCET Criteria): Less than 30% Left Common: No significant stenosis. Left Internal Carotid Plaque: Atherosclerotic vessel irregularities. Left Internal Carotid Stenosis (% by NASCET Criteria): Less than 30%. Cervical Vertebral Arteries: Patency: Bilateral Dominance: Codominant Tiny focal suspected atherosclerotic vascular disease involving bilateral vertebral arteries without high-grade stenosis. INTRACRANIAL MRA: No large vessel occlusion, critical stenosis, or aneurysmal dilatation along the arteries of intracranial anterior and posterior circulation. Intracranial internal carotid arteries, anterior, middle, and posterior cerebral arteries and their proximal branches are patent without high-grade narrowing. Atherosclerotic vessel irregularities involving the intracranial segments of the bilateral internal carotid arteries causing short segment up to mild to moderate stenosis. Multifocal atherosclerotic vessel irregularities along the proximal anterior and middle cerebral arteries with up to mild stenosis. Multifocal atherosclerotic vessel irregularities along the posterior cerebral arteries with short segment up to moderate stenosis. Short segment loss of flow associated signal intensity of the proximal V4 segment bilateral vertebral arteries likely artifactual (in plane saturation artifact). Suboptimal evaluation of the proximal vertebral artery stenosis due to aforementioned artifacts. Suspected short segment moderate to severe on the right and mild on the left stenosis of the V4 segment left vertebral arteries However, normal caliber and flow associated signal intensity distally. Short segment moderate stenosis of the proximal/mid basilar artery. Presumed atherosclerotic vessel wall irregularities the partially visualized distal cervical internal carotid arteries without high-grade stenosis. IMPRESSION IMPRESSION: Within limitation of motion artifacts: MRI BRAIN: * No acute intracranial abnormality. Chronic changes as detailed. MRA brain: * No large vessel occlusion, critical stenosis, or aneurysmal dilatation along the arteries of intracranial anterior and posterior circulation. * Intracranial atherosclerotic disease as detailed. Suspected short segment moderate to severe stenosis of the V4 segment right vertebra (more content not included)... [facility] MRI BRAIN WO IVCONon 025 MRI BRAIN WO IVCON Normal [facility] No Panel Informationon 01-06 IMPRESSION: Within limitation of motion artifacts: MRI BRAIN: * No acute intracranial abnormality. Chronic changes as detailed. MRA brain: * No large vessel occlusion, critical stenosis, or aneurysmal dilatation along the arteries of intracranial anterior and posterior circulation. * Intracranial atherosclerotic disease as detailed. Suspected short segment moderate to severe stenosis of the V4 segment right vertebral artery, suboptimally evaluated as detailed. Suggest further imaging with CT angiogram head and/or MRA head without and with IV contrast for a more detailed evaluation. MRA neck: * Patent bilateral internal carotid arteries without high-grade stenosis. Visualized common carotid and vertebral arteries are patent without high-grade stenosis. Consider carotid Doppler ultrasound for reassurance considering the suboptimal evaluation due to motion artifacts. COMMUNICATION: Communicated with ANAY LAWRENCE on 01/06/2025 5:19 PM via [employer] staff message. County Attorney: LESLIE Transcribe Date/Time: Jan 06 2025 11:20A Dictated by : LIZ MATAMOROS DO This examination was interpreted and the report reviewed and electronically signed by: CLAIR ELLINGTON MD on Jan 06 2025 5:21PM [facility] DIVISION OF RADIOLOGY Radiology Study observation (narrative) [facility] No Panel InformationOrdered By: [facility] Provider on 01-06-2025 [facility] THERAPY NTon 01-06-2025 THERAPY NT Normal [facility] US KIDNEY/BLADDERon 01-07-20 US KIDNEY/BLADDER Invalid Interpretation Code [facility] CNPNon 12-29-2024 CNPN Normal [facility] PAULINA SCREENING W TOMOon 12-23 PAULINA SCREENING W ZAFAR Normal [facility] CNPNon 12-17-2024 CNPN Normal [facility] CNPTOUTREACHon 12-16-2024 CNPTOUTREACH Normal [facility] Cardiology Visit Reporton Cardiology Visit Report [facility] [address] [place] [address] OFFICE VISIT Date of Service: 12/16/24 MR#: [id number] Acct: [id number] Name: LESA PUGH Rep #: [id number] : 1955 Provider: LINDA haywood Age/Sex: 69/F Location: [facility] Status: Signed HPI HPI History of Present Illness Details: Ms. Tariq is a pleasant 69-year-old lady who presents to the office today for a cardiovascular follow-up visit. She has an extensive cardiac history. Dates back to 2002 when she was evaluated with chest pain and palpitations. She had had cardiac catheterizations in 1997 as well as 2001. At that time significant coronary disease was noted and she underwent coronary bypass surgery in 2001 with a left internal mammary artery to the left anterior descending artery, radial artery to the first obtuse marginal branch, and a sequential saphenous vein graft to the posterior descending artery and second right posterior descending artery. In addition, she had a history of hypertension, hyperlipidemia, low HDL syndrome, hyper homocystinemia, intolerance of statins and [id number] diabetes mellitus. She has had numerous cardiac procedures including PCI in 2012 with a drug-eluting stent to the saphenous vein graft to right posterior descending artery, in 2014 with a drug-eluting stent to the proximal LAD and in-stent stenosis of the saphenous vein graft to the posterior descending artery. In 2015 she had a PCI to the saphenous vein graft to the posterior descending artery. In 2016 she had in-stent restenosis of that vessel as well as in 2017. Her catheterization in August 2017 demonstrated a normal left main coronary artery, and left circumflex artery which had 25 to 30% proximal stenosis, and left anterior descending artery which had a stented proximal portion the mid segment had a 40 to 50% stenosis, the left internal mammary artery to the left anterior descending artery was noted to be occluded, the right coronary artery was occluded, the saphenous vein graft to the posterior descending artery was patent. The distal body of the graft was a stented segment with 90% stenosis and therefore she underwent successful catheter-based drug-eluting stent placement to the proximal and distal body of the saphenous vein graft. The radial artery was noted to be previously occluded. Patient presented to the emergency room on 04/27/2023 with complaints of shortness of breath. She thought she was having an allergic reaction to doxycycline, she felt her tongue slightly swell and had shortness of breath. During her emergency room visit, she was noted to have some chest pain as well and describes this as a brief sharp pain to the left chest she was then admitted to the hospital for further evaluation, and underwent a cardiac catheterization on 04/29/2023 which demonstrated left anterior descending occluded, her RCA occluded stent and severe atherosclerosis with an in-stent restenosis in the midportion of the SVG graft as well as there is a lesion at the distal part of the vein graft which is at least 80%, and radial graft to the OM is occluded. She was transferred to [facility] for further evaluation, while at [facility] she underwent 3 drug-eluting stents, and was placed on Brilinta twice daily. Presented to the emergency room on 05/18/2023 with complaints of chest discomfort. Her chest discomfort was atypical at that time. Her troponins were noted to be normal. Cardiology was consulted, and her cardiac catheterization report was reviewed. Patient was instructed to continue her Ranexa, increase isosorbide to 60 mg daily, and increase losartan to 50 mg twice daily. She was evaluated [facility] in April 2024 for chest pain. Her troponin was negative x 3. Invasive evaluation was not felt to be beneficial/needed. She was seen in the emergency department on 11/03/2024 for right sided chest discomfort. Her cardiac workup was negative and she was treated for atypical chest pain associated with viral syndrome. She acknowledges right sided chest pain. This last for minutes. She describes this as sharp and squeezing. This occurs 2-3 times per day. She acknowledges palpitations and bilateral lower extremity edema. She states shortness breath with activity, shortness of breath at rest, and orthopnea. She states lightheadedness, dizziness, near syncope, weakness, fatigue, and blurry vision. Intake Vital Signs 12/14/24 14:31 12/16/24 13:00 Height 5 ft 5 in 5 ft 5 in Weight: 200 lb 201 lb BMI 33.3 33.4 BP 176/85 H 130/64 H Blood Pressure Location Lt brachial Position Sitting Respiration 18 18 Pulse 57 L 47 L Pulse Source Monitor Temp 97.3 F L Pulse Oximetry (%) 90 Oxygen Delivery Method room air Intake Visit Reasons: S/P [facility] (11/03) Enrollment Clerk Required: No (more content not included)... Normal [facility] Urine Cultureon 12-16-2024 URC Mixed Gram Positive Organisms [place] Count 80,000-100,000 MIXC Mixed contaminants. Submit a new specimen if indicated. Normal [facility] Comment on above: Performed By: #### L 500.2500, L501.4021, L100.0100 #### [facility] [address] [place], [address] CNOVon 12-15-2024 CNOV Normal [facility] Anion gap in Serum or Plasma Ordered By: Usha Barrett on 12-14-2024 Anion gap [Moles/Vol] 12 mmol/L 10-29 [facility] BUN/creatinine ratioOrdered By: Usha Barrett on 12-14-2024 Urea nitrogen/Creatinine [Mass ratio] 17.9 mg/mg - [facility] Basic Metabolic Profile (BMP )on 12-14-2024 BUN/CRE 17.9 RATIO Normal 04-05 [facility] Comment on above: Performed By: #### L 500.2500, L501.4021, L100.0100 #### [facility] [address] [place], [address] Calcium [Mass/Vol] 9.9 mg/dL Normal 7.6-11.0 [facility] Comment on above: Performed By: #### L 500.2500, L501.4021, L100.0100 #### [facility] [address] [place], [address] Chloride [Moles/Vol] 97 mmol/L Low 98-108 [facility] Comment on above: Performed By: #### L 500.2500, L501.4021, L100.0100 #### [facility] [address] [place], [address] CO2 [Moles/Vol] 28.8 mmol/L Normal 21.0-32.0 [facility] Comment on above: Performed By: #### L 500.2500, L501.4021, L100.0100 #### [facility] [address] [place], [address] Creatinine [Mass/Vol] 1.25 mg/dL High 0.70-1.20 [facility] Comment on above: Performed By: #### L 500.2500, L501.4021, L100.0100 #### [facility] [address] [place], [address] GAP 12 Normal 5-15 [facility] Comment on above: Performed By: #### L 500.2500, L501.4021, L100.0100 #### [facility] [address] [place], [address] GFR/1.73 sq M.predicted among non-blacks MDRD (S/P/Bld) [Vol rate/Area] 46 mL/min/{1.73_m2} Low >60 [facility] Comment on above: Result Comment: mL/m in/1.73m2 CKD-EPI Creatinine Equation (2020) Performed By: #### L 500.2500, L501.4021, L100.0100 #### [facility] [address] [place], [address] Glucose [Mass/Vol] 263 mg/dL High 70-99 [facility] Comment on above: Performed By: #### L 500.2500, L501.4021, L100.0100 #### [facility] [address] [place], [address] Potassium [Moles/Vol] 4.0 mmol/L Normal 3.3-5.1 [facility] Comment on above: Performed By: #### L 500.2500, L501.4021, L100.0100 #### [facility] [address] [place], [address] Sodium [Moles/Vol] 138 mmol/L Normal 133-145 [facility] Comment on above: Performed By: #### L 500.2500, L501.4021, L100.0100 #### [facility] [address] [place], [address] Urea nitrogen [Mass/Vol] 22 mg/dL High 4-19 [facility] Comment on above: Performed By: #### L 500.2500, L501.4021, L100.0100 #### [facility] [address] [place], [address] Bilirubin Test strip Ql (U)O rdered By: Usha Barrett on 12-14-2024 Bilirubin Ql (U) Negative Negative [facility] Carbon dioxide, total [Moles /volume] in Central venous bloodOrdered By: Usha Barrett on 12-14-2024 CO2 [Moles/Vol] 28.8 mmol/L 21.0-32.0 [facility] Chloride assayOrdered By: Steve Barrett on 12-14-2024 Chloride [Moles/Vol] 97 mmol/L Low 98-108 [facility] Gastroenterology Visit Repor ton 12-14-2024 Gastroenterology Visit Report [facility] [address] [place] [address] OFFICE VISIT Date of Service: 12/14/24 MR#: [id number] Acct: [id number] Name: ELSA PUGH Rep #: [id number] : 1955 Provider: LINDA posada Age/Sex: 69/F Location: [facility] Status: Signed Intake Vital Signs 11/03/24 13:43 12/14/24 14:31 12/14/24 14:40 Height 5 ft 5 in 5 ft 5 in Weight: 200 lb BMI 33.3 BP 176/85 H 132/90 H Respiration 18 Pulse 57 L Temp 97.3 F L Temp Source Temporal Pulse Oximetry (%) 90 Oxygen Delivery Method room air Intake Visit Reasons: HOSP FU Chief Complaint: Chest pain, vomiting Enrollment Clerk Required: No Accompanied by: Self Is patient in pain?: No Allergies aspirin Allergy (Verified 12/14/24 14:21) Rash banana Allergy (Verified 12/14/24 14:21) Hives canagliflozin (From Invokana) Allergy (Verified 12/14/24 14:21) Anaphylaxis kiwi Allergy (Verified 12/14/24 14:21) Hives niacin Allergy (Verified 12/14/24 14:21) Rash Penicillins (PCN) Allergy (Verified 12/14/24 14:21) Hives Sulfa (Sulfonamide Antibiotics) Allergy (Verified 12/14/24 14:21) Hives ticagrelor Adverse Reaction (Severe, Verified 12/14/24 14:21) Severe nausea and vomiting doxycycline Adverse Reaction (Verified 12/14/24 14:21) Nausea/Vom/Diarrhea erythromycin base (From Staticin) Adverse Reaction (Verified 12/14/24 14:21) Other ethyl alcohol (From Staticin) Adverse Reaction (Verified 12/14/24 14:21) Other gemfibrozil (From Lopid) Adverse Reaction (Verified 12/14/24 14:21) Other ibuprofen Adverse Reaction (Verified 12/14/24 14:21) Upset Stomach levofloxacin (From Levaquin) Adverse Reaction (Verified 12/14/24 14:21) Upset Stomach lisinopril Adverse Reaction (Verified 12/14/24 14:21) cough propoxyphene (From Darvocet-N) Adverse Reaction (Verified 12/14/24 14:21) Upset Stomach spironolactone Adverse Reaction (Verified 12/14/24 14:21) hyperkalemia Huyympv-MCX-WwY Reductase Inhibitor (Ctdkgmi-Rxg-Eyh Reductase Inhibitor) Adverse Reaction (Verified 12/14/24 14:21) unknown tramadol Adverse Reaction (Verified 12/14/24 14:21) Other Medications ???Medication ???Instructions ???Recorded ???Confirmed ???Type ascorbate calcium (vitamin C) 500 500 mg PO DAILY 10/26/21 12/14/24 History mg tablet red yeast rice 600 mg capsule 600 mg PO DAILY 10/26/21 12/14/24 History pregabalin 150 mg capsule 150 mg PO BID 02/27/22 12/14/24 Hi story cholecalciferol (vitamin D3) 25 25 mcg PO DAILY 06/04/22 12/14/24 History mcg (1,000 unit) capsule aspirin 81 mg tablet,delayed 81 mg PO DAILY 05/18/23 12/14/24 H istory release (Adult Aspirin Regimen) citalopram 40 mg tablet 40 mg PO DAILY 05/18/23 12/14/24 H istory Handicap Placard #1 ea 06/05/23 04/20/24 Rx albuterol sulfate 90 mcg/actuation 1 puff inhalation Q6H PRN 12/14/24 Rx aerosol inhaler shortness of breath or wheezing #6.7 grams magnesium 250 mg tablet 250 mg PO BID 09/03/23 12/14/24 Hi story fenofibrate nanocrystallized 145 145 mg PO DAILY #90 tabs 12/10/23 12/14/24 Rx mg tablet metoprolol succinate 25 mg 12.5 mg (1/2 x 25 mg) PO DAILY #45 12/10/23 12/14/24 Rx tablet,extended release 24 hr tabs pantoprazole 40 mg tablet,delayed 40 mg PO BID #180 tabs 12/10/23 0 12/14/24 Rx release ranolazine 1,000 mg 1,000 mg PO BID #180 tabs 08/12/24 12/14/24 Rx tablet,extended release,12 hr evolocumab 140 mg/mL subcutaneous 140 mg subcut Q2W 08/19/24 History pen injector (Cece Lawrence) sitagliptin phosphate 50 mg tablet 50 mg PO QDAY 08/19/24 12/14/24 History (Ortega) nitroglycerin 0.4 mg sublingual 0.4 mg sublingual Q5-15M PRN chest 09/22/24 12/14/24 Rx tablet pain #25 tabs amlodipine 5 mg tablet 5 mg PO DAILY #90 tabs 10/20/24 Rx isosorbide mononitrate 30 mg 30 mg PO DAILY 11/03/24 12/14/24 H istory tablet,extended release 24 hr isosorbide mononitrate 60 mg 60 mg PO DAILY 11/03/24 12/14/24 H istory tablet,extended release 24 hr Have you fallen in the past year?: No Nurse's Note: Is either sweating or is cold and has lower back pain. [facility] Medical History Bradycardia Atherosclerosis of coronary artery COVID Concussion Hiatal hernia Wears glasses Post-menopausal Alcohol use Ambulates with cane Diabetes Arthritis Rheumatoid arthritis High cholesterol Anemia Acute kidney failure Restless legs Back pain Injury of back Migraine headache Injury of head and neck Blackout Difficulty swallowing Difficulty chewing History of diverticulitis Gastric reflux Former smoker CPAP (continuous positive airway pressure) dependence Sleep apnea Shortness of breath on exertion History of (more content not included)... Normal [facility] Glomerular filtration rate ( GFR) estimation/1.73 sq m using serum, plasma, or whole bOrdered By: Usha Barrett on 12-14-2024 GFR/1.73 sq M.predicted among non-blacks MDRD (S/P/Bld) [Vol rate/Area] 46 mL/min/{1.73_m2} Low >60 [facility] Comment on above: mL/min/1.73m2 CKD-EP I Creatinine Equation (2020) Ketones Test strip Ql (U)Ord ered By: Usha Barrett on 12-14-2024 Ketones Ql (U) Negative Negative [facility] Microscopic analysis of urin e for red blood cells (RBC)Ordered By: Usha Barrett on 12-14-2024 Microscopic analysis of urine for red blood cells (RBC) 0 SEEN /hpf 0-5 [facility] Mucus LM Ql (Urine sed)Order ed By: Usha Barrett on 12-14-2024 Mucus Ql (Urine sed) 0 SEEN /hpf [facility] Nitrite Test strip Ql (U)Ord ered By: Usha Barrett on 12-14-2024 Nitrite Ql (U) Negative Negative [facility] Potassium measurement (mass/ volume)Ordered By: Usha Barrett on 12-14-2024 Potassium (Unsp spec) [Mass/Vol] 4.0 mmol/L 3.3-5.1 [facility] Protein Test strip Ql (U)Ord ered By: Usha Barrett on 12-14-2024 Protein Ql (U) 30 mg/dl High Negative [facility] Serum creatinine measurement (mass/volume)Ordered By: Usha Barrett on 12-14-2024 Creatinine [Mass/Vol] 1.25 mg/dL High 0.70-1.20 [facility] Serum glucose measurement (m ass/volume)Ordered By: Usha Barrett on 12-14-2024 Glucose [Mass/Vol] 263 mg/dL High 70-99 [facility] Serum or plasma calcium esther urement (mass/volume)Ordered By: Usha Barrett on 12-14-2024 Calcium [Mass/Vol] 9.9 mg/dL 7.6-11.0 [facility] Serum or plasma urea nitroge n measurement (mass/volume)Ordered By: Usha Barrett on 12-14-2024 Urea nitrogen [Mass/Vol] 22 mg/dL High 4-19 [facility] Sodium levelOrdered By: Paola Barrett on 12-14-2024 Sodium [Moles/Vol] 138 mmol/L 133-145 [facility] Squamous epithelial cells de tection in urine sediment by light microscopyOrdered By: Usha Barrett on 12-14-2024 Epithelial cells.squamous LM Ql (Urine sed) 5-10 SEEN /hpf 5-10 [facility] Urinalysis, Completeon 12-14 BACTERIA RARE Normal None Seen [facility] Comment on above: Order Comment: MAKEDA CTOR TO SPECIFY Performed By: #### L 500.2500, L501.4021, L100.0100 #### [facility] [address] [place], [address] EPI,SQUAMOUS 5-10 SEEN Normal 5-10 [facility] Comment on above: Order Comment: MAKEDA CTOR TO SPECIFY Performed By: #### L 500.2500, L501.4021, L100.0100 #### [facility] [address] [place], [address] WBC 5-10 SEEN Normal 0-5 [facility] Comment on above: Order Comment: MAKEDA CTOR TO SPECIFY Performed By: #### L 500.2500, L501.4021, L100.0100 #### [facility] [address] [place], [address] Mucus Ql (Urine sed) 0 SEEN Normal [facility] Comment on above: Order Comment: MAKEDA CTOR TO SPECIFY Performed By: #### L 500.2500, L501.4021, L100.0100 #### [facility] [address] [place], [address] RBC 0 SEEN Normal 0-5 [facility] Comment on above: Order Comment: COLLE CTOR TO SPECIFY Performed By: #### L 500.2500, L501.4021, L100.0100 #### [facility] [address] [place], [address] Urine clarityOrdered By: Brooke Barrett on 12-14-2024 Clarity (U) Sl. Cloudy Clear [facility] Urine color determinationOrd ered By: Usha Barrett on 12-14-2024 Color (U) Yellow Yellow [facility] Urine cultureOrdered By: Brooke Barrett on 12-14-2024 Bacteria identified Cx Nom (U) Positive Abnormal [facility] Urine glucose detectionOrder ed By: Usha Barrett on 12-14-2024 Glucose Ql (U) 1000 mg/dl High Normal [facility] Urine leukocyte esterase det ection by dipstickOrdered By: Usha Barrett on 12-14-2024 Leukocyte esterase Test strip Ql (U) 25 /ul High Negative [facility] Urine pHOrdered By: Usha Barrett on 12-14-2024 pH (U) 6.0 [pH] 5.0 - 8.0 [facility] Urine sediment bacteria coun t by microscopy (number/high power field)Ordered By: Usha Barrett on 12-14-2024 Bacteria LM.HPF (Urine sed) [#/Area] RARE /hpf None Seen [facility] Urine specific gravity measu rementOrdered By: Usha Barrett on 12-14-2024 Specific gravity (U) [Rel density] 1.020 1.002-1.030 [facility] Urine urobilinogen measureme ntOrdered By: Usha Barrett on 12-14-2024 Urobilinogen Ql (U) Normal mg/dl Normal [facility] White blood cell countOrdere d By: Usha Barrett on 12-14-2024 White blood cell count 5-10 SEEN /hpf 0-5 [facility] SHUN BY IFA WITH REFLEXon SHUN PATTERN 2 Cytoplasmic dense fi ne speckled Normal [facility] Comment on above: Order Comment: Speci men Type: BLOOD SPECIMENOrdering Facility: [facility] Address: [address] [place] [address] Performed By: #### A NAIFR, 23720-1, 86856-3, 61324-8, 25912-7, 36631-6, 39646-6, 88580-6, 01698-7, 84828-2 ####[facility] [id number] [address] [address] [place] SHUN TITER 2 1:80 Normal [facility] Comment on above: Order Comment: Speci men Type: BLOOD SPECIMENOrdering Facility: [facility] Address: [address] [place] [address] Performed By: #### A NAIFR, 74840-0, 36742-0, 69164-5, 77419-9, 77193-5, 39725-6, 49240-1, 75163-9, 81416-6 ####[facility] [id number] [address], [place] [address] [place] Nuclear Ab pattern (S) [Interp] Nuclear homogeneous Normal [facility] Comment on above: Order Comment: Speci men Type: BLOOD SPECIMENOrdering Facility: [facility] Address: [address] [place] [address] Performed By: #### A NAIFR, 31208-7, 65465-3, 52376-2, 38010-7, 82320-9, 03164-7, 88681-8, 85732-8, 71400-6 ####[facility] LABIA [id number] [address], [facility] [place] Nuclear Ab Ql (S) Positive Abnormal Negative [facility] Comment on above: Order Comment: Speci men Type: BLOOD SPECIMENOrdering Facility: [facility] Address: [address] [place] [address] Result Comment: Anti -nuclear antibody test is used as an aid in diagnosis of systemic autoimmune diseases. Where positive and clinically warranted, follow-up using disease-specific testing is recommended. Low positive titers are not uncommon with advanced age, certain chronic infections, and malignancies among others.Test methodology: Indirect fluorescence immunoassay (IFA) using HEp-2 cells.1:160 Performed By: #### A NAIFR, 49643-2, 24273-6, 44600-2, 19054-3, 68570-2, 31032-3, 74073-2, 72192-7, 14724-8 ####[facility] LABIA [id number] [place] [address] [place] C3 COMPLEMENTon 12-09-2024 Complement C3 [Mass/Vol] 151 mg/dL 86 - 166 mg/dL [facility] C3 SerPl-mCncon 12-09-2024 Complement C3 [Mass/Vol] 151 mg/dL Normal 86-166 [facility] Comment on above: Order Comment: Speci men Type: BLOOD SPECIMENOrdering Facility: [facility] Address: [address] [place] [address] Performed By: #### 4 485-9, 4498-2 ####[facility] LABIA [id number] [place] [address] [place] C4 COMPLEMENTon 12-09-2024 Complement C4 [Mass/Vol] 18 mg/dL 13 - 46 mg/dL [facility] C4 SerPl-ncon 12-09-2024 Complement C4 [Mass/Vol] 18 mg/dL Normal 13-46 [facility] Comment on above: Order Comment: Speci men Type: BLOOD SPECIMENOrdering Facility: [facility] Address: [address] [place] [address] Performed By: #### 4 485-9, 4498-2 ####[facility] [id number] [place] [address] [place] CNOVon 12-09-2024 CNOV Normal [facility] Centromere Ab IF Ql (S)on Centromere Ab Qn (S) <0.2 Normal <1.0 [facility] Comment on above: Order Comment: Speci men Type: BLOOD SPECIMENOrdering Facility: [facility] Address: [address] [place], [place] [address] Result Comment: Anti -centromere antibody is used as in aid in diagnosis of systemic sclerosis. Clinical correlation is required.Test Methodology: Multiplex flow immunoassay. Performed By: #### A NAIFR, 09673-3, 85488-4, 46664-1, 09592-1, 07030-3, 84496-2, 93400-1, 90221-3, 39234-7 ####[facility] LABCLIA [id number] [address] [place] [address] [facility] Performed By: #### 1 8323-6, 05424-6, 50610-6, 01079-2, 58992-7, 10673-7, 23255-7, 45525-4 ####[facility] LABCLIA [id number] [address] [place] [address] [place] CENTROMERE AB QUAL Negative Normal Negative [facility] Comment on above: Order Comment: Speci men Type: BLOOD SPECIMENOrdering Facility: [facility] Address: [address] [place] [address] Performed By: #### A NAIFR, 56073-6, 13257-6, 25518-6, 95531-2, 35297-1, 15139-8, 40097-3, 26951-1, 31975-8 ####[facility] LABCLIA [id number] [address] [place] [address] [place] Performed By: #### 1 8323-6, 50808-9, 10688-3, 42194-2, 42308-0, 93571-1, 24118-4, 97526-0 ####[facility] LABIA [id number] [address] [place] [address] [place] Chromatin Ab Qnon 12-09-2024 CHROMATIN AB QUAL Negative Normal Negative [facility] Comment on above: Order Comment: Speci men Type: BLOOD SPECIMENOrdering Facility: [facility] Address: [address] [place] [address] Performed By: #### A NAIFR, 56888-2, 17190-5, 15967-8, 99002-0, 36471-2, 14298-2, 72337-3, 60358-5, 80224-7 ####[facility] LABCLIA [id number] [address] STATES [facility] Performed By: #### 1 8323-6, 13944-3, 64917-6, 50864-4, 16808-4, 25515-2, 31135-5, 18030-8 ####[facility] LABCLIA [id number] [address] [place] Chromatin Ab SerPl-aCncon Chromatin Ab Qn <0.2 Normal <1.0 [facility] Comment on above: Order Comment: Speci men Type: BLOOD SPECIMENOrdering Facility: [facility] Address: [address] [place] [address] Result Comment: Test Methodology: Multiplex flow immunoassay. Performed By: #### A NAIFR, 05580-7, 99988-2, 39932-0, 34247-5, 59724-0, 51522-8, 32429-2, 81170-1, 40144-7 ####[facility] LABCLIA [id number] [address] OF [facility] Performed By: #### 1 8323-6, 11555-8, 18914-7, 58603-7, 15147-3, 46551-4, 46393-8, 39376-1 ####[facility] LABCLIA [id number] [address] OF [facility] Cyclic citrullinated peptide IgG Qnon 12-09-2024 CCP ANTIBODY IGG QUALITATIVE Negative Normal Negative [facility] Comment on above: Order Comment: Speci men Type: BLOOD SPECIMENOrdering Facility: [facility] Address: [address] [place] [address] Performed By: #### 3 3935-8 ####[facility] [id number] [place] [address] [place] DNA double strand Ab IA Qn ( S)on 12-09-2024 DNA ANTIBODY 50 IU/mL Normal <=200 [facility] Comment on above: Order Comment: Speci men Type: BLOOD SPECIMENOrdering Facility: [facility] Address: [address] [place] [address] Result Comment: Nega tive: <200 IU/mLEquivocal: 201-300 IU/mLModerate Positive: 301-800 IU/mLStrong Positive: >801 IU/mL Performed By: #### A RUSSR, 72319-0, 16677-1, 34483-6, 24440-7, 88078-6, 19667-5, 92634-2, 02930-7, 78032-4 ####[facility] [id number] [place] [address] [place] DNA ANTIBODY QUALITATIVE INTERPRETATION Negative Normal Negative [facility] Comment on above: Order Comment: Speci men Type: BLOOD SPECIMENOrdering Facility: [facility] Address: [address] [place] [address] Performed By: #### A NAIFR, 00755-0, 80633-2, 67259-4, 76137-0, 72431-4, 29773-3, 29207-1, 48060-1, 30613-0 ####[facility] LABIA [id number] [place] [id number] [place] MERLY Jo1 Ab Ser-aCncon 2024 Francesca-1 extractable nuclear Ab Qn (S) <0.2 Normal <1.0 [facility] Comment on above: Order Comment: Speci men Type: BLOOD SPECIMENOrdering Facility: [facility] Address: [address] [place] [address] Performed By: #### A NAIFR, 92084-4, 91566-5, 47808-3, 58161-2, 08296-7, 98684-9, 49516-7, 69294-5, 66997-8 ####[facility] LABCLIA [id number] [address] [place] [address] [facility] Performed By: #### 1 8323-6, 30379-1, 35515-4, 19352-5, 56482-0, 46375-9, 64447-9, 58881-1 ####[facility]CLIA [id number] [address] [place] [address] [facility] OF [place] MERLY FLIGHT AGENT Ab Ser-aCncon 2024 Ribonucleoprotein extractable nuclear Ab Qn (S) <0.2 Normal <1.0 [facility] Comment on above: Order Comment: Speci men Type: BLOOD SPECIMENOrdering Facility: [facility] Address: [address] [place] [address] Performed By: #### A NAIFR, 77415-4, 33248-5, 82949-9, 46195-4, 68257-3, 42409-4, 94325-7, 40354-7, 33927-3 ####[facility] LABCLIA [id number] [address] [place] [address] [facility] Performed By: #### 1 8323-6, 34626-2, 22576-6, 95726-3, 09140-0, 45622-3, 49912-5, 28878-1 ####[facility] LABCLIA [id number] [address] [place] [address] [place] [facility] Ribonucleoprotein extractable nuclear Ab Qn (S) 0.8 AI Normal <1.0 [facility] Comment on above: Order Comment: Speci men Type: BLOOD SPECIMENOrdering Facility: [facility] Address: [address] [place] [address] Performed By: #### A NAIFR, 85034-2, 96583-5, 95747-9, 63313-3, 98810-4, 42481-0, 65917-3, 59830-6, 35105-8 ####[facility] LABIA [id number] [place] [address] [place] Ribonucleoprotein extractable nuclear Ab Qn (S) 0.7 AI Normal <1.0 [facility] Comment on above: Order Comment: Speci men Type: BLOOD SPECIMENOrdering Facility: [facility] Address: [address] [place] [address] Performed By: #### 1 8323-6, 17297-5, 11667-0, 74844-8, 18077-5, 56374-1, 60759-3, 31182-7 ####[facility] [id number] [place] [address] [place] SM IgG Ser-aCncon 2024 [place] extractable nuclear IgG Qn (S) <0.2 Normal <1.0 [facility] Comment on above: Order Comment: Speci men Type: BLOOD SPECIMENOrdering Facility: [facility] Address: [address] [place] [address] Performed By: #### A NAIFR, 34342-8, 35864-7, 68776-9, 97613-6, 72267-5, 41681-6, 48225-4, 90843-5, 73007-4 ####[facility] [id number] [place] [address] [place] Performed By: #### 1 8323-6, 23209-2, 17975-0, 22910-9, 79588-6, 64899-8, 96081-7, 16176-1 ####[facility] LABIA [id number] [place] [address] [place] SS-A Ab Ser-aCncon 12-09 Sjogrens syndrome-A extractable nuclear Ab Qn (S) <0.2 Normal <1.0 [facility] Comment on above: Order Comment: Speci men Type: BLOOD SPECIMENOrdering Facility: [facility] Address: [address] [place] [address] Result Comment: Test Methodology: Multiplex flow immunoassay. Performed By: #### A NAIFR, 79964-7, 54487-7, 97189-8, 32066-7, 84636-4, 95829-0, 24055-8, 75319-8, 23232-8 ####[facility] LABCLIA [id number] [address] Performed By: #### 1 8323-6, 71162-0, 34129-0, 10682-9, 01150-6, 57871-3, 89325-5, 02261-1 ####[facility]CLIA [id number] [address] OF [facility] MERLY SS-B Ab Ser-aCncon 12-09 Sjogrens syndrome-B extractable nuclear Ab Qn (S) <0.2 Normal <1.0 [facility] Comment on above: Order Comment: Speci men Type: BLOOD SPECIMENOrdering Facility: [facility] Address: [address] [place] [address] Result Comment: Anti -SSB (anti-La) antibody is used as an aid in diagnosis of a variety of systemic autoimmune diseases, especially for Sjogren's syndrome and systemic lupus erythematosus. Clinical correlation is required.Test Methodology: Multiplex flow immunoassay. Performed By: #### A NAIFR, 55111-3, 85928-8, 42552-6, 30914-5, 00791-5, 90142-7, 80206-4, 03763-4, 18395-3 ####[facility] LABCLIA [id number] [address] [address] [facility] Performed By: #### 1 8323-6, 73347-7, 97417-2, 58552-7, 52464-0, 17215-8, 40610-3, 25424-5 ####[facility] [id number] [place] [address] [place] Francesca-1 extractable nuclear Ab Qn (S)on 12-09-2024 FRANCESCA 1 ANTIBODY QUAL Negative Normal Negative [facility] Comment on above: Order Comment: Speci men Type: BLOOD SPECIMENOrdering Facility: [facility] Address: [address] [place] [address] Result Comment: Anti -FRANCESCA-1 antibody is used as an aid in diagnosis of polymyositis and dermatomyositis especially with pulmonary involvement. A negative result cannot rule out polymyositis or dermatomyositis. Clinical correlation is required.Test Methodology: Multiplex flow immunoassay. Performed By: #### A NAIFR, 90644-6, 77077-7, 23715-2, 36168-6, 47752-7, 15986-9, 74059-9, 58637-0, 08601-6 ####[facility] LABIA [id number] [place] [id number] [place] Performed By: #### 1 8323-6, 44522-9, 80360-9, 92853-1, 30350-5, 74162-9, 41081-7, 13932-4 ####[facility] [id number] [place] [id number] [place] No Panel Informationon 12-09 Interpretation and review of laboratory results Normal [facility] Prot/Creat Uron 12-09-2024 Protein/Creatinine (U) [Mass ratio] 0.15 mg/mg High <0.15 [facility] Comment on above: Order Comment: Speci men Type: URINE SPECIMENOrdering Facility: [facility] Address: [address] [place] [address] Result Comment: Adul t Proteinuria Categories:<0.15 mg/mg is considered normal to mildly increased0.15 - 0.50 mg/mg is considered moderately increased>0.50 mg/mg is considered severely increasedKDIGO. (2013). KDIGO 2012 Clinical Practice Guideline for the Evaluation and Management of Chronic Kidney Disease. Official Journal of the International Society of Nephrology, 3(1), 1-150. Performed By: #### 2 890-2 ####[facility] LABCLIA [id number] [address] [place] [address] [place] Protein/Creatinine (U) [Mass ratio]on 12-09-2024 Creatinine (U) [Mass/Vol] 52.6 mg/dL Normal 20.0-300.0 [facility] Comment on above: Order Comment: Speci men Type: URINE SPECIMENOrdering Facility: [facility] Address: [address] [place] [address] Performed By: #### 2 890-2 ####[facility] LABIA [id number] [address] STATES OF [facility] Protein (U) [Mass/Vol] 8 mg/dL Normal 0-20 [facility] Comment on above: Order Comment: Speci men Type: URINE SPECIMENOrdering Facility: [facility] Address: [address] [place] [address] Performed By: #### 2 890-2 ####[facility] LABIA [id number] [address], [facility] Ribonucleoprotein extractabl e nuclear Ab Qn (S)on 12-09-2024 ANTI-FLIGHT AGENT QUAL Negative Normal Negative [facility] Comment on above: Order Comment: Speci men Type: BLOOD SPECIMENOrdering Facility: [facility] Address: [address] [place] [address] Performed By: #### A NAIFR, 01539-7, 58596-2, 97678-5, 40742-1, 58540-6, 09064-6, 44558-0, 35414-9, 96337-7 ####[facility] LABCLIA [id number] [address], [address] STATES OF [facility] Performed By: #### 1 8323-6, 03163-7, 51005-5, 74492-7, 33784-5, 94326-8, 81202-8, 65480-7 ####[facility] LABIA [id number] [address] [address] [place] RIBOSOMAL FLIGHT AGENT QUAL Negative Normal Negative [facility] Comment on above: Order Comment: Speci men Type: BLOOD SPECIMENOrdering Facility: [facility] Address: [address] [place] [address] Result Comment: Anti -Ribosomal RNA (Ribosomal P) antibody is used as an aid in diagnosis of systemic autoimmune diseases especially systemic lupus erythematosus and mixed connective tissue disease. Cross-reactivity with Anti-monroe antibody is not uncommon. Clinical correlation is required.Test Methodology: Multiplex flow immunoassay. Performed By: #### A NAIFR, 20890-2, 12493-8, 41539-2, 25015-4, 86781-2, 67551-7, 62087-9, 27617-6, 90430-3 ####[facility] LABCLIA [id number] [address] [place] [address] [place] Performed By: #### 1 8323-6, 17004-7, 36686-4, 05145-4, 92772-7, 56258-0, 30363-7, 36230-4 ####[facility] LABCLIA [id number] [address] [address] [place] SCL-70 extractable nuclear I gG IA Qn (S)on 12-09-2024 SCLERODERMA AB QUAL Negative Normal Negative [facility] Comment on above: Order Comment: Speci men Type: BLOOD SPECIMENOrdering Facility: [facility] Address: [address] [place] [address] Performed By: #### A NAIFR, 25475-6, 04033-4, 87645-5, 66562-4, 68111-6, 39578-0, 41188-1, 99021-2, 51815-7 ####[facility] LABIA [id number] [address] [place] [address] [place] Performed By: #### 1 8323-6, 16397-2, 85792-4, 40708-5, 25636-8, 38267-1, 66074-7, 80112-8 ####[facility] [id number] [address] [place] [address] [place] SCLERODERMA IGG AB <0.2 Normal <1.0 [facility] Comment on above: Order Comment: Speci men Type: BLOOD SPECIMENOrdering Facility: [facility] Address: [address] [place] [address] Result Comment: Scl- 70/Scleroderma antibody test is used as an aid in diagnosis of systemic sclerosis especially the diffuse cutaneous form. A negative result cannot rule out systemic sclerosis. The final interpretation should consider clinical picture and other test results such as anti-centromere antibody. Test Methodology: Multiplex flow immunoassay. Performed By: #### A NAIFR, 32305-3, 97244-7, 88709-4, 95820-4, 81403-9, 52656-4, 92362-5, 88128-9, 70005-9 ####[facility] [id number] [address] [place] [address] [place] Performed By: #### 1 8323-6, 26668-8, 65452-1, 17130-9, 66054-0, 78393-6, 13583-5, 52891-7 ####[facility] LABIA [id number] [address] [place] [address] [place] Sjogrens syndrome-A extracta ble nuclear Ab Qn (S)on 12-09-2024 SSA ANTIBODY QUAL Negative Normal Negative [facility] Comment on above: Order Comment: Speci men Type: BLOOD SPECIMENOrdering Facility: [facility] Address: [address] [place] [address] Performed By: #### A NAIFR, 10963-5, 02227-3, 36734-8, 56110-2, 36808-9, 04523-4, 05209-0, 98874-3, 27346-2 ####[facility] LABCLIA [id number] [address] [place] [address] [facility] Performed By: #### 1 8323-6, 79885-3, 67653-8, 46819-3, 90348-9, 80085-7, 43182-0, 94558-8 ####[facility] LABIA [id number] [address] [place] [address] [place] Sjogrens syndrome-B extracta ble nuclear Ab Qn (S)on 12-09-2024 SSB ANTIBODY QUAL Negative Normal Negative [facility] Comment on above: Order Comment: Speci men Type: BLOOD SPECIMENOrdering Facility: [facility] Address: [address] [place] [address] Performed By: #### A NAIFR, 59082-3, 43161-8, 49016-0, 36950-3, 44087-5, 26659-2, 11189-9, 00854-4, 05407-8 ####[facility] LABIA [id number] [address] [place] [address] [place] Performed By: #### 1 8323-6, 75670-5, 86995-1, 86769-2, 25499-1, 25388-8, 62698-3, 98907-5 ####[facility] LABIA [id number] [address] [place] [address] [place] extractable nuclear Ig G Qn (S)on 12-09-2024 SM ANTIBODY QUAL Negative Normal Negative [facility] Comment on above: Order Comment: Speci men Type: BLOOD SPECIMENOrdering Facility: [facility] Address: [facility] [place] [address] Result Comment: Anti -Sm (Monroe) antibody is used as an aid in diagnosis of systemic lupus erythematosus and its presence is associated with renal disease. A negative result cannot rule out systemic lupus erythematosus. Clinical correlation is required.Test Methodology: Multiplex flow immunoassay. Performed By: #### A NAIFR, 61145-6, 05916-4, 96876-9, 66709-3, 49650-6, 55737-8, 07939-4, 67243-7, 24734-7 ####[facility] LABCLIA [id number] [address] [address] [facility] Performed By: #### 1 8323-6, 33342-5, 62007-6, 21811-5, 62537-0, 06367-4, 18773-5, 75860-0 ####[facility] LABCLIA [id number] [place] [id number] [place] cCP IgG SerPl-aCncon 025 Cyclic citrullinated peptide IgG Qn <15 Normal <20 [facility] Comment on above: Order Comment: Speci men Type: BLOOD SPECIMENOrdering Facility: [facility] Address: [address] [place] [address] Performed By: #### 3 3935-8 ####[facility] [id number] [address] [place] CNPNon 12-04-2024 CNPN Normal [facility] CNOVon 11-12-2024 CNOV Normal [facility] 12 Lead EKGon 11-03-[address] [facility] [address] [place] [address] 12 Lead EKG 11/03/24 1351 MR#: [id number] Acct: [id number] Name: ELSA PUGH Katherine Rep #: [id number] : 1955 69 From: Larry Osorio MD Attending Dr: Status: DEP ER Ordering Dr: Jamal Salcedo DO Date: 11/03/24 Location: ED Sex: F C Admitted: Test Reason : CP Blood Pressure : */* mmHG Vent. Rate : 51 BPM Atrial Rate : 51 BPM P-R Int : 172 ms QRS Dur : 100 ms QT Int : 496 ms P-R-T Axes : -1 39 -3 degrees QTcB Int : 457 ms Sinus bradycardia Nonspecific T wave abnormality Abnormal ECG Confirmed by DEVON SON, LARRY ([id number]), greeting card editor BARRY LOU ([id number]) on 11/04/2024 10:30:51 AM Referred By: FABRICIO/ARLETTE Confirmed By: LARRY OSORIO MD 11/04/24 1030 Date Larry Osorio MD CC: Dr. Redd Linda MD; Dr. Jamal Salcedo, DO Signed Normal [facility] Absolute lymphocyte countOrd ered By: Jamal Salcedo on 11-03-2024 Lymphocytes Auto (Unsp spec) [#/Vol] 2.15 10*3/uL 0.83-4.51 [facility] Absolute neutrophil countOrd ered By: Jamal Salcedo on 11-03-2024 Neutrophils (Bld) [#/Vol] 7.7 10*3/uL 2.0-7.7 [facility] Anion gap in Serum or Plasma Ordered By: Jamal Salcedo on 11-03-2024 Anion gap [Moles/Vol] 13 mmol/L 10-29 [facility] Automated lymphocyte count a s percentage of total leukocytesOrdered By: Jamal Salcedo on 11-03-2024 Lymphocytes/100 WBC Auto (Unsp spec) 19.6 % [facility] BUN/creatinine ratioOrdered By: Jamal Salcedo on 11-03-2024 Urea nitrogen/Creatinine [Mass ratio] 14.4 mg/mg 04-05 [facility] Basic Metabolic Profile (BMP )on 11-03-2024 BUN/CRE 14.4 RATIO Normal 04-05 [facility] Comment on above: Performed By: #### L 500.2500, L501.4021, L100.0100 #### [facility] Laboratory [address] [place], [place] [address], [address] Calcium [Mass/Vol] 9.7 mg/dL Normal 7.6-11.0 [facility] Comment on above: Performed By: #### L 500.2500, L501.4021, L100.0100 #### [facility] [address] [place], [address] Chloride [Moles/Vol] 97 mmol/L Low 98-108 [facility] Comment on above: Performed By: #### L 500.2500, L501.4021, L100.0100 #### [facility] [address] [place], [address] CO2 [Moles/Vol] 24.9 mmol/L Normal 21.0-32.0 [facility] Comment on above: Performed By: #### L 500.2500, L501.4021, L100.0100 #### [facility] [address] [place], [address] Creatinine [Mass/Vol] 1.24 mg/dL High 0.70-1.20 [facility] Comment on above: Performed By: #### L 500.2500, L501.4021, L100.0100 #### [facility] [address] [place], [address] ECRCL 47.24 ml/min Low 50-250 [facility] Comment on above: Performed By: #### L 500.2500, L501.4021, L100.0100 #### [facility] [address] [place], [address] GAP 13 Normal 5-15 [facility] Comment on above: Performed By: #### L 500.2500, L501.4021, L100.0100 #### [facility] [address] [place], [address] GFR/1.73 sq M.predicted among non-blacks MDRD (S/P/Bld) [Vol rate/Area] 47 mL/min/{1.73_m2} Low >60 [facility] Comment on above: Result Comment: mL/m in/1.73m2 CKD-EPI Creatinine Equation (2020) Performed By: #### L 500.2500, L501.4021, L100.0100 #### [facility] [address] [place], [address] Glucose [Mass/Vol] 175 mg/dL High 70-99 [facility] Comment on above: Performed By: #### L 500.2500, L501.4021, L100.0100 #### [facility] [address] [place], [address] Potassium [Moles/Vol] 4.5 mmol/L Normal 3.3-5.1 [facility] Comment on above: Performed By: #### L 500.2500, L501.4021, L100.0100 #### [facility] [address] [place], [address] Sodium [Moles/Vol] 136 mmol/L Normal 133-145 [facility] Comment on above: Performed By: #### L 500.2500, L501.4021, L100.0100 #### [facility] [address] [place], [address] Urea nitrogen [Mass/Vol] 18 mg/dL Normal 4-19 [facility] Comment on above: Performed By: #### L 500.2500, L501.4021, L100.0100 #### [facility] [address], [address] Basophil percentageOrdered B y: Jamal Salcedo on 11-03-2024 Basophils/100 WBC (Bld) 0.4 % 0-1 [facility] Brain/Head without Contrasto n 11-03-2024 Brain/Head without Contrast [facility] Imaging Services [address] [place] [address] Brain/Head without Contrast MR#: [id number] Acct: [id number] Name: ELSA PUGH Rep #: [id number] : 1955 F 69 From: Chris Salcedo MD PCP: Dr. Redd Linda MD Status: REG ER Study: Brain/Head without Contrast Date of Exam: 10/16 Exam# [id number] Ordering Dr: Jamal Salcedo DO EXAM: CT Head Without Intravenous Contrast CLINICAL INDICATION: HEAD INJURY TECHNIQUE: Axial computed tomography images of the head/brain without intravenous contrast. This CT exam was performed using one or more of the following dose reduction techniques: automated exposure control, adjustment of the mA and/or kV according to patient size, and/or use of iterative reconstruction technique. COMPARISON: No relevant prior studies available. FINDINGS: BRAIN AND EXTRA-AXIAL SPACES: No acute intracranial hemorrhage, midline shift or mass effect. If symptoms persist, further evaluation with MRI is recommended. Mild areas of decreased attenuation in the deep cerebral white matter are consistent with mild small vessel ischemic/degenerative changes. BONES/JOINTS: Unremarkable. No acute fracture. SOFT TISSUES: Unremarkable. SINUSES: Unremarkable as visualized. No acute sinusitis. MASTOID AIR CELLS: Unremarkable as visualized. No mastoid effusion. CT/Brain/Head without Contrast IMPRESSION: 1. No acute intracranial hemorrhage, midline shift or mass effect. If symptoms persist, further evaluation with MRI is recommended. 2. Mild small vessel ischemic/degenerative changes. Reading Location: [facility] CC: Dr. Redd Linda MD; Dr. Jamal Salcedo DO County Attorney: Signed Normal [facility] CBC W/Diff, Automatedon 10-16 Absolute Lymph 2.15 X10 3/uL Normal 0.83-4.51 [facility] Comment on above: Performed By: #### L 500.2500, L501.4021, L100.0100 #### [facility] [address] [place], [place], [address] Absolute Neut 7.7 X10 3/uL Normal 2.0-7.7 [facility] Comment on above: Performed By: #### L 500.2500, L501.4021, L100.0100 #### [facility] [address] [place], [address] Basophils/100 WBC (Bld) 0.4 % Normal 0-1 [facility] Comment on above: Performed By: #### L 500.2500, L501.4021, L100.0100 #### [facility] [address] [place], [address] Eosinophils/100 WBC (Bld) 1.0 % Normal 0-5 [facility] Comment on above: Performed By: #### L 500.2500, L501.4021, L100.0100 #### [facility] [address] [place], [address] Erythrocyte distribution width (RBC) [Ratio] 14.6 % Normal 11.6-14.6 [facility] Comment on above: Performed By: #### L 500.2500, L501.4021, L100.0100 #### [facility] [address] [place], [address] Hematocrit (Bld) [Volume fraction] 37.1 % Normal 37-47 [facility] Comment on above: Performed By: #### L 500.2500, L501.4021, L100.0100 #### [facility] [address] [place], [address] Hemoglobin (Bld) [Mass/Vol] 12.1 g/dL Normal 12.0-15.0 [facility] Comment on above: Performed By: #### L 500.2500, L501.4021, L100.0100 #### [facility] [address] [place], [address] IG% 0.600 Normal 0.0-0.9 [facility] Comment on above: Result Comment: IG% - Immature Granulocytes (promyelocytes, myelocytes and metamyelocytes) > 1% indicates that a LEFT SHIFT is Present. Performed By: #### L 500.2500, L501.4021, L100.0100 #### [facility] [address] [place], [address] Lymphocytes/100 WBC (Bld) 19.6 % Normal 19-41 [facility] Comment on above: Performed By: #### L 500.2500, L501.4021, L100.0100 #### [facility] [address] [place], [address] MCH (RBC) [Entitic mass] 28.7 pg Normal 27.0-32.0 [facility] Comment on above: Performed By: #### L 500.2500, L501.4021, L100.0100 #### [facility] [address] [place], [address] MCHC (RBC) [Mass/Vol] 32.6 g/dL Normal 32-36 [facility] Comment on above: Performed By: #### L 500.2500, L501.4021, L100.0100 #### [facility] [address] [place], [address] MCV (RBC) [Entitic vol] 87.9 fL Normal 81-99 [facility] Comment on above: Performed By: #### L 500.2500, L501.4021, L100.0100 #### [facility] [address] [place], [address] Monocytes/100 WBC (Bld) 8.6 % Normal 0-10 [facility] Comment on above: Performed By: #### L 500.2500, L501.4021, L100.0100 #### [facility] [address] [place], [address] Neutrophils/100 WBC (Bld) 69.8 % Normal 47-70 [facility] Comment on above: Performed By: #### L 500.2500, L501.4021, L100.0100 #### [facility] [address] [place], [address] Nucleated RBC (Bld) [#/Vol] 0 10*3/uL Normal 0-5 [facility] Comment on above: Performed By: #### L 500.2500, L501.4021, L100.0100 #### [facility] [address] [place], [address] Platelet mean volume (Bld) [Entitic vol] 11.1 fL Normal 6.2-12.0 [facility] Comment on above: Performed By: #### L 500.2500, L501.4021, L100.0100 #### [facility] [address] [place], [address] Platelets (Bld) [#/Vol] 340 10*3/uL Normal 150-450 [facility] Comment on above: Performed By: #### L 500.2500, L501.4021, L100.0100 #### [facility] [address] [place], [address] RBC (Bld) [#/Vol] 4.22 10*6/uL Normal 4.2-5.4 [facility] Comment on above: Performed By: #### L 500.2500, L501.4021, L100.0100 #### [facility] [address] [place], [address] RDW SD 46.9 fl High 35.1-43.9 [facility] Comment on above: Performed By: #### L 500.2500, L501.4021, L100.0100 #### [facility] [address] [place], [address] WBC (Bld) [#/Vol] 11.0 10*3/uL Normal 4.4-11.0 [facility] Comment on above: Performed By: #### L 500.2500, L501.4021, L100.0100 #### [facility] [address] [place], [address] Carbon dioxide, total [Moles /volume] in Central venous bloodOrdered By: Jamal Salcedo on 11-03-2024 CO2 [Moles/Vol] 24.9 mmol/L 21.0-32.0 [facility] Chest PA and Lateralon 11-03 Chest PA and Lateral [facility] Imaging Services [address] [place] [address] Chest PA and Lateral MR#: [id number] Acct: [id number] Name: ELSA PUGH Rep #: [id number] : 1955 F 69 From: Ever avalos MD PCP: Dr. Redd Linda MD Status: REG ER Study: Chest PA and Lateral Date of Exam: 11/03/24 Exam# [id number] Ordering Dr: Jamal Salcedo DO PROCEDURE: CHEST PA AND LATERAL 11/03/2024 REASON FOR EXAM: CP, COUGH TECHNIQUE: Frontal and lateral views of the chest. COMPARISON: None FINDINGS: Hardware: EKG electrodes are seen. Heart: Prior midline sternotomy and coronary artery bypass surgery. Heart size upper limits of normal. Mediastinum: The mediastinal contour is unremarkable. Lungs: The lungs are clear. Bones: The bones are unremarkable. RAD/Chest PA and Lateral IMPRESSION: Heart size upper limits of normal. No acute abnormality is seen. Reading Location: [facility] CC: Dr. Redd Linda MD; Dr. Jamal Salcedo DO County Attorney: Signed Normal [facility] Chloride assayOrdered By: Rubén Salcedo on 11-03-2024 Chloride [Moles/Vol] 97 mmol/L Low 98-108 [facility] Emergency Department Summary on 11-03-2024 Emergency Department Summary [facility] Medical Records Department [address] [place] [address] Emergency Department Summary 11/03/24 MR#: [id number] Acct: [id number] Name: ELSA PUGH Rep #: [id number] : 1955 69 From: Jamal Hale PCP: Dr. Redd Linda MD Status:DEP ER Location: ED [facility] History of Present Illness Chief Complaint: Chest Pain Informant: patient Narrative Narrative: Presents by private vehicle leaving work. Right side chest discomfort started this morning intermittently at home. Awake and with no symptoms. At work had nausea vomiting x 1 no hematemesis. She reports history of four-vessel CABG 2003, she has had subsequent stents since then she states a total of 23 stents last time in April at [facility] [employer] here is Dr. Osorio. She is on aspirin and Plavix took her dose this morning.in addition, states 2 weeks ago follow-up regarding head injury has been having intermittent headaches since then. She has had a productive cough since then also. She also reports with the fall she has pain in her coccyx that is improving. She is able to ambulate. She did take 2 nitros at work stating it alleviated symptoms. Currently nauseated. No MIs with right-sided chest pains in the past. Prior Similar Symptoms: No PFSH PFSH Medical History Bradycardia Atherosclerosis of coronary artery COVID Concussion Hiatal hernia Wears glasses Post-menopausal Alcohol use Ambulates with cane Diabetes Arthritis Rheumatoid arthritis High cholesterol Anemia Acute kidney failure Restless legs Back pain Injury of back Migraine headache Injury of head and neck Blackout Difficulty swallowing Difficulty chewing History of diverticulitis Gastric reflux Former smoker CPAP (continuous positive airway pressure) dependence Sleep apnea Shortness of breath on exertion History of echocardiogram History of stress test Cardiology follow-up encounter History of heart attack History of irregular heartbeat Chest pain Imbalance Headache Epigastric pain Lymphedema Restless legs syndrome (RLS) Anxiety and depression Iron deficiency anemia Proliferative diabetic retinopathy Peripheral neuropathy Obesity Hyperhomocystinemia Narcolepsy GERD (gastroesophageal reflux disease) Atherosclerotic heart disease of [place] coronary artery without angina pectoris Atherosclerosis of coronary artery 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 Essential hypertension Hyperlipidemia Obstructive sleep apnea Type 2 diabetes mellitus Home Medications ???Medication ???Instructions ???Recorded ???Last Taken ???Type ascorbate calcium (vitamin C) 500 500 mg PO DAILY 10/26/21 04/19/24 History mg tablet red yeast rice 600 mg capsule 600 mg PO DAILY 10/26/21 04/20/24 History pregabalin 150 mg capsule 150 mg PO BID 02/27/22 04/19/24 Hi story cholecalciferol (vitamin D3) 25 25 mcg PO DAILY 06/04/22 04/19/24 History mcg (1,000 unit) capsule aspirin 81 mg tablet,delayed 81 mg PO DAILY 05/18/23 04/20/24 H istory release (Adult Aspirin Regimen) citalopram 40 mg tablet 40 mg PO DAILY 05/18/23 04/20/24 H istory Handicap Placard #1 ea 06/05/23 Unknown Rx albuterol sulfate 90 mcg/actuation 1 puff inhalation Q6H PRN 04/15/24 Rx aerosol inhaler shortness of breath or wheezing #6.7 grams magnesium 250 mg tablet 250 mg PO BID 09/03/23 04/19/24 Hi story fenofibrate nanocrystallized 145 145 mg PO DAILY #90 tabs 12/10/23 04/20/24 Rx mg tablet metoprolol succinate 25 mg 12.5 mg (1/2 x 25 mg) PO DAILY #45 12/10/23 04/20/24 Rx tablet,extended release 24 hr tabs pantoprazole 40 mg tablet,delayed 40 mg PO BID #180 tabs 12/10/23 1 06/20/23 Rx release ranolazine 1,000 mg 1,000 mg PO BID #180 tabs 08/12/24 Unknown Rx tablet,extended release,12 hr evolocumab 140 mg/mL subcutaneous 140 mg subcut Q2W 08/19/24 Unknow n History pen injector (Repatha Howard) sitagliptin phosphate 50 mg tablet 50 mg PO QDAY 08/19/24 Unknown H istory (Januvia) nitroglycerin 0.4 mg sublingual 0.4 mg sublingual Q5-15M PRN chest 09/22/24 Unknown Rx tablet pain #25 tabs amlodipine 5 mg tablet 5 mg PO DAILY #90 tabs 10/20/24 Un known Rx isosorbide mononitrate 30 mg 30 mg PO DAILY 11/03/24 Unknown Hi story tablet,extended release 24 hr isosorbide mononitrate 60 mg 60 mg PO DAILY 11/03/24 Unknown Hi story tablet,extended release 24 hr metformin 1,000 mg tablet 1,000 mg PO BID 11/03/24 Unknown H istory Allergy/AdvReac Type Severity Reaction Status Date / Time aspirin Allergy Rash Verified 08/19/24 10:52 banana Allergy Hives Verified 08/19/24 10:52 canagliflozin (From Invokana) Allergy Anaphylaxis Verified 08/19/24 10:52 kiwi Allergy Hives Verified 08/19/24 10: (more content not included)... Normal [facility] Eosinophil percentageOrdered By: Jamal Salcedo on 11-03-2024 Eosinophils/100 WBC (Bld) 1.0 % 0-5 [facility] Erythrocyte distribution wid th ratioOrdered By: Jamal Salcedo on 11-03-2024 Erythrocyte distribution width (RBC) [Ratio] 14.6 % 11.6-14.6 [facility] Erythrocyte distribution wid th standard deviationOrdered By: Jamal Salcedo on 11-03-2024 Erythrocyte distribution width (RBC) [Ratio] 46.9 fl High 35.1-43.9 [facility] Glomerular filtration rate ( GFR) estimation/1.73 sq m using serum, plasma, or whole bOrdered By: Jamal Slacedo on 11-03-2024 GFR/1.73 sq M.predicted among non-blacks MDRD (S/P/Bld) [Vol rate/Area] 47 mL/min/{1.73_m2} Low >60 [facility] Comment on above: mL/min/1.73m2 CKD-EP I Creatinine Equation (2020) Hematocrit Auto (Bld) [Volum e fraction]Ordered By: Jamal Salcedo on 11-03-2024 Hematocrit (Bld) [Volume fraction] 37.1 % 37-47 [facility] Hemoglobin measurementOrdere d By: Jamal Salcedo on 11-03-2024 Hemoglobin (Bld) [Mass/Vol] 12.1 g/dL 12.0-15.0 [facility] Immature granulocytes/100 WB C Auto (Bld)Ordered By: Jamal Salcedo on 11-03-2024 Immature granulocytes/100 WBC (Bld) 0.600 % 0.0-0.9 [facility] Comment on above: IG% - Immature Granu locytes (promyelocytes, myelocytes and metamyelocytes) > 1% indicates that a LEFT SHIFT is Present. L499.0042on 11-03-2024 Trop T High Sen 11 ng/L Normal <=14 [facility] Comment on above: Performed By: #### L 499.0042 #### [facility] [address] [place], [address] L499.0043on 11-03-2024 Trop T High Sen Normal <=14 [facility] Comment on above: Result Comment: Canc elled via OM: Order cancelled - Patient discharged Performed By: #### L 500.2500, L501.4021, L100.0100 #### [facility] [address] [place], [address] L501.4021on 11-03-2024 Trop T High Sen 10 ng/L Normal <=14 [facility] Comment on above: Performed By: #### L 500.2500, L501.4021, L100.0100 #### [facility] [address] [place], [address] MCV (mean corpuscular volume ) determinationOrdered By: Jamal Salcedo on 11-03-2024 MCV (RBC) [Entitic vol] 87.9 fL 81-99 [facility] Mean corpuscular hemoglobin (MCH) determinationOrdered By: Jamal Salcedo on 11-03-2024 MCH (RBC) [Entitic mass] 28.7 pg 27.0-32.0 [facility] Mean corpuscular hemoglobin concentration (MCHC) determinationOrdered By: Jamal Salcedo on 11-03-2024 MCHC (RBC) [Mass/Vol] 32.6 g/dL 32-36 [facility] Mean platelet volume determi nationOrdered By: Jamal Salcedo on 11-03-2024 Platelet mean volume (Bld) [Entitic vol] 11.1 fL 6.2-12.0 [facility] Monocyte percentageOrdered B y: Jamal Salcedo on 11-03-2024 Monocytes/100 WBC (Bld) 8.6 % 0-10 [facility] Neutrophil percentageOrdered By: Jamal Salcedo on 11-03-2024 Neutrophils/100 WBC (Bld) 69.8 % 47-70 [facility] Nucleated red blood cell per centageOrdered By: Jamal Salcedo on 11-03-2024 Nucleated RBC/100 WBC (Bld) [Ratio] 0 % 0-5 [facility] Platelet countOrdered By: Rubén coronado Dangelo on 11-03-2024 Platelets (Bld) [#/Vol] 340 10*3/uL 150-450 [facility] Potassium measurement (mass/ volume)Ordered By: Jamal Salcedo on 11-03-2024 Potassium (Unsp spec) [Mass/Vol] 4.5 mmol/L 3.3-5.1 [facility] RBC Auto (Bld) [#/Vol]Ordere d By: Jamal Salcedo on 11-03-2024 RBC (Bld) [#/Vol] 4.22 10*6/uL 4.2-5.4 [facility] Sacrum-Coccyx min 2 Viewson 11-03-2024 Sacrum-Coccyx min [address] [facility] [address] [place] [address] Sacrum-Coccyx min 2 Views MR#: [id number] Acct: [id number] Name: ELSA PUGH Rep #: [id number] : 1955 F 69 From: Ever avalos MD PCP: Dr. Redd Linda MD Status: [facility] ER Study: Sacrum-Coccyx min 2 Views Date of Exam: Exam# [id number] Ordering Dr: Jamal Salcedo DO PROCEDURE: SACRUM-COCCYX MIN 2 VIEWS 11/03/2024 REASON FOR EXAM: INJURY TECHNIQUE: AP and lateral view(s) of the sacrum and coccyx. COMPARISON: None FINDINGS: Bones: Unremarkable Joints: Minimal degenerative changes. Other: RAD/Sacrum-Coccyx min 2 Views IMPRESSION: Mild degenerative changes of the sacroiliac joints. No fracture is seen. Reading Location: [place] [address] CC: Dr. Redd Linda MD; Dr. Jamal Salcedo DO County Attorney: Signed Normal [facility] Serum creatinine measurement (mass/volume)Ordered By: Jamal Salcedo on 11-03-2024 Creatinine [Mass/Vol] 1.24 mg/dL High 0.70-1.20 [facility] Serum glucose measurement (m ass/volume)Ordered By: Jamal Salcedo on 11-03-2024 Glucose [Mass/Vol] 175 mg/dL High 70-99 [facility] Serum or plasma calcium esther urement (mass/volume)Ordered By: Jamal Salcedo on 11-03-2024 Calcium [Mass/Vol] 9.7 mg/dL 7.6-11.0 [facility] Serum or plasma urea nitroge n measurement (mass/volume)Ordered By: Jamal Salcedo on 11-03-2024 Urea nitrogen [Mass/Vol] 18 mg/dL 4-19 [facility] Sodium levelOrdered By: Jamal Salcedo on 11-03-2024 Sodium [Moles/Vol] 136 mmol/L 133-145 [facility] Troponin T.cardiac [Mass/vol ume] in Serum or Plasma by High sensitivity methodOrdered By: Jamal Salcedo on 11-03-2024 Troponin T.cardiac High sensitivity method [Mass/Vol] 11 ng/L <14 [facility] Troponin T.cardiac High sensitivity method [Mass/Vol] 10 ng/L <14 [facility] White blood cell (WBC) count Ordered By: Jamal Salcedo on 11-03-2024 WBC (Bld) [#/Vol] 11.0 10*3/uL 4.4-11.0 [facility] CNPNon 10-20-2024 CNPN Normal [facility] C-REACTIVE PROTEINon 025 CRP [Mass/Vol] mg/dL NINF - 0.9 mg/dL [facility] CRP [Mass/Vol]on 10-08-2024 Interpretation and review of laboratory results Normal [facility] Comprehensive metabolic 2000 panelon 10-08-2024 Albumin [Mass/Vol] 4.3 g/dL 3.9 - 4.9 g/dL [facility] ALP [Catalytic activity/Vol] 35 U/L 34 - 123 U/L [facility] ALT [Catalytic activity/Vol] 11 U/L 7 - 38 U/L [facility] Anion gap [Moles/Vol] 12 mmol/L 8 - 15 mmol/L [facility] AST [Catalytic activity/Vol] 17 U/L 13 - 35 U/L [facility] Bilirubin [Mass/Vol] 0.3 mg/dL 0.2 - 1 .3 mg/dL [facility] Calcium [Mass/Vol] 9.5 mg/dL 8.5 - 10. 2 mg/dL [facility] Chloride [Moles/Vol] 105 mmol/L 98 - 10 7 mmol/L [facility] CO2 [Moles/Vol] 23 mmol/L 22 - 30 mmol/L [facility] Creatinine [Mass/Vol] 1.09 mg/dL High 0.58 - 0.96 mg/dL [facility] GFR/1.73 sq M.predicted among non-blacks MDRD (S/P/Bld) [Vol rate/Area] 55 mL/min/{1.73_m2} Low - PINF [facility] Comment on above: Estimated Glomerular Filtration Rate (eGFR) is calculated using the 2020 CKD-EPI creatinine equation. This equation utilizes serum creatinine, sex, and age as parameters. The creatinine assay has traceable calibration to isotope dilution-mass spectrometry. Refer to KDIGO guidelines for clinical interpretation. In patients with unstable renal function, e.g. those with acute kidney injury, the eGFR may not accurately reflect actual GFR. Glucose [Mass/Vol] 107 mg/dL High 74 - 99 mg/dL [facility] Comment on above: The [place] Diab[employer] Association (ADA) provides guidance for cutoff values for fasting glucose and random glucose. The ADA defines fasting as no caloric intake for at least 8 hours. Fasting plasma glucose results between 100 to 125 mg/dL indicate increased risk for diabetes (prediabetes). Fasting plasma glucose results greater than or equal to 126 mg/dL meet the criteria for diagnosis of diabetes. In the absence of unequivocal hyperglycemia, results should be confirmed by repeat testing. In a patient with classic symptoms of hyperglycemia or hyperglycemic crisis, random plasma glucose results greater than or equal to 200 mg/dL meet the criteria for diagnosis of diabetes. Reference: Standards of Medical Care in Diabetes 2016, [place] [employer]. Diabetes Care. 2016.39(Suppl 1). Potassium [Moles/Vol] 4.3 mmol/L 3.7 - 5.1 mmol/L [facility] Protein [Mass/Vol] 6.8 g/dL 6.3 - 8.0 g/dL [facility] Sodium [Moles/Vol] 140 mmol/L 136 - 144 mmol/L [facility] Urea nitrogen [Mass/Vol] 16 mg/dL 7 - 21 mg/dL [facility] FERRITINon 10-08-2024 Ferritin [Mass/Vol] 75.4 ng/mL 14.7 - 2 05.1 ng/mL [facility] Ferritin [Mass/Vol]on 2024 Interpretation and review of laboratory results Normal [facility] Iron and Iron binding capaci ty panelon 10-08-2024 Iron [Mass/Vol] 49 ug/dL 41 - 186 ug/dL [facility] Iron binding capacity [Mass/Vol] 420 ug/dL High 232 - 386 ug/dL [facility] Iron/TIBC [Molar ratio] 11.7 % Low 15.0 - 57.0 % [facility] No Panel Informationon 10-08 Interpretation and review of laboratory results Abnormal [facility] Interpretation and review of laboratory results Normal [facility] RHEUMATOID FACTORon 10-09-19 Rheumatoid factor Qn [facility] URIC ACIDon 10-08-2024 Urate [Mass/Vol] 3 mg/dL 2.5 - 6.6 mg/dL [facility] CBC W Auto Differential pane l (Bld)on 10-07-2024 Basophils (Bld) [#/Vol] 0.03 10*3/uL [facility] Basophils/100 WBC (Bld) 0.5 % [facility] Differential cell count method Nom (Bld) Auto [facility] Eosinophils (Bld) [#/Vol] 0.1 10*3/uL [facility] Eosinophils/100 WBC (Bld) 1.5 % [facility] Erythrocyte distribution width (RBC) [Ratio] 14.7 % 11.5 - 15.0 % [facility] Hematocrit (Bld) [Volume fraction] 36.2 % 36.0 - 46.0 % [facility] Hemoglobin (Bld) [Mass/Vol] 11.4 g/dL Low 11.5 - 15.5 g/dL [facility] Immature granulocytes (Bld) [#/Vol] [facility] Immature granulocytes/100 WBC (Bld) 0.3 % [facility] Interpretation and review of laboratory results Abnormal [facility] Lymphocytes (Bld) [#/Vol] 1.93 10*3/uL [facility] Lymphocytes/100 WBC (Bld) 29.3 % [facility] MCH (RBC) [Entitic mass] 28.1 pg 26.0 - 34.0 pg [facility] MCHC (RBC) [Mass/Vol] 31.5 g/dL 30.5 - 36.0 g/dL [facility] MCV (RBC) [Entitic vol] 89.2 fL 80.0 - 100.0 fL [facility] Monocytes (Bld) [#/Vol] 0.59 10*3/uL [facility] Monocytes/100 WBC (Bld) 9 % [facility] Neutrophils (Bld) [#/Vol] 3.91 10*3/uL [facility] Neutrophils/100 WBC (Bld) 59.4 % [facility] Nucleated RBC (Bld) [#/Vol] [facility] Nucleated RBC/100 WBC (Bld) [Ratio] 0 % /100 WBC [facility] Platelet mean volume (Bld) [Entitic vol] 11.3 fL 9.0 - 12.7 fL [facility] Platelets (Bld) [#/Vol] 283 10*3/uL [facility] RBC (Bld) [#/Vol] 4.06 10*6/uL 3.90 - 5.2 0 m/uL [facility] WBC (Bld) [#/Vol] 6.58 10*3/uL [facility] Basophils (Bld) [#/Vol] 0.03 10*3/uL Normal <0.11 [facility] Comment on above: Order Comment: Speci men Type: BLOOD SPECIMENOrdering Facility: [facility] Address: [address] [place] [address] Performed By: #### 4 537-7, 16416-3 ####[facility] LABZOËIA [id number] [address] [place] Basophils/100 WBC (Bld) 0.5 % Normal [facility] Comment on above: Order Comment: Speci men Type: BLOOD SPECIMENOrdering Facility: [facility] Address: [address] [place] [address] Performed By: #### 4 537-7, 73099-8 ####[facility] LABCLIA [id number] [place] [address] [place] Differential cell count method Nom (Bld) Auto Normal [facility] Comment on above: Order Comment: Speci men Type: BLOOD SPECIMENOrdering Facility: [facility] Address: [address] [place] [address] Performed By: #### 4 537-7, 76600-7 ####[facility] LABCLIA [id number] [place] [address] [place] Eosinophils (Bld) [#/Vol] 0.10 10*3/uL Normal <0.46 [facility] Comment on above: Order Comment: Speci men Type: BLOOD SPECIMENOrdering Facility: [facility] Address: [address] [place] [address] Performed By: #### 4 537-7, 00180-5 ####[facility] LABCLIA [id number] [place] [address] [place] Eosinophils/100 WBC (Bld) 1.5 % Normal [facility] Comment on above: Order Comment: Speci men Type: BLOOD SPECIMENOrdering Facility: [facility] Address: [address] [place] [address] Performed By: #### 4 537-7, 46067-5 ####[facility] LABCLIA [id number] [place] [address] [place] Erythrocyte distribution width (RBC) [Ratio] 14.7 % Normal 11.5-15.0 [facility] Comment on above: Order Comment: Speci men Type: BLOOD SPECIMENOrdering Facility: [facility] Address: [address] [place] [address] Performed By: #### 4 537-7, 25817-2 ####[facility] LABCLIA [id number] [address] [place] [address] [place] Hematocrit (Bld) [Volume fraction] 36.2 % Normal 36.0-46.0 [facility] Comment on above: Order Comment: Speci men Type: BLOOD SPECIMENOrdering Facility: [facility] Address: [address] [place] [address] Performed By: #### 4 537-7, 89716-4 ####[facility] LABCLIA [id number] [address], [place] [address] [place] Hemoglobin (Bld) [Mass/Vol] 11.4 g/dL Low 11.5-15.5 [facility] Comment on above: Order Comment: Speci men Type: BLOOD SPECIMENOrdering Facility: [facility] Address: [address] [place] [address] Performed By: #### 4 537-7, 50281-3 ####[facility] LABIA [id number] [address], [place] [address] [place] Immature granulocytes (Bld) [#/Vol] 10*3/uL Normal <0.10 [facility] Comment on above: Order Comment: Speci men Type: BLOOD SPECIMENOrdering Facility: [facility] Address: [address] [place] [address] Performed By: #### 4 537-7, 27704-6 ####[facility] LABIA [id number] [address], [facility] [place] Immature granulocytes/100 WBC (Bld) 0.3 % Normal [facility] Comment on above: Order Comment: Speci men Type: BLOOD SPECIMENOrdering Facility: [facility] Address: [address] [place] [address] Performed By: #### 4 537-7, 38152-6 ####[facility] LABIA [id number] [place] [id number] [place] Lymphocytes (Bld) [#/Vol] 1.93 10*3/uL Normal 1.00-4.00 [facility] Comment on above: Order Comment: Speci men Type: BLOOD SPECIMENOrdering Facility: [facility] Address: [address] [place] [address] Performed By: #### 4 537-7, 59018-0 ####[facility] LABIA [id number] [address] [place] Lymphocytes/100 WBC (Bld) 29.3 % Normal [facility] Comment on above: Order Comment: Speci men Type: BLOOD SPECIMENOrdering Facility: [facility] Address: [address] [place] [address] Performed By: #### 4 537-7, 63825-4 ####[facility] LABIA [id number] [place] [address] [place] MCH (RBC) [Entitic mass] 28.1 pg Normal 26.0-34.0 [facility] Comment on above: Order Comment: Speci men Type: BLOOD SPECIMENOrdering Facility: [facility] Address: [address] [place] [address] Performed By: #### 4 537-7, 79918-4 ####[facility] [id number] [place] [address] [place] MCHC (RBC) [Mass/Vol] 31.5 g/dL Normal 30.5-36.0 [facility] Comment on above: Order Comment: Speci men Type: BLOOD SPECIMENOrdering Facility: [facility] Address: [address] [place] [address] Performed By: #### 4 537-7, 03575-8 ####[facility] LABCLIA [id number] [place] [address] [place] MCV (RBC) [Entitic vol] 89.2 fL Normal 80.0-100.0 [facility] Comment on above: Order Comment: Speci men Type: BLOOD SPECIMENOrdering Facility: [facility] Address: [address] [place] [address] Performed By: #### 4 537-7, 95185-1 ####[facility] LABCLIA [id number] [place] [id number] [place] Monocytes (Bld) [#/Vol] 0.59 10*3/uL Normal <0.87 [facility] Comment on above: Order Comment: Speci men Type: BLOOD SPECIMENOrdering Facility: [facility] Address: [address] [place] [address] Performed By: #### 4 537-7, 68755-1 ####[facility] LABCLIA [id number] [place] [address] [place] Monocytes/100 WBC (Bld) 9.0 % Normal [facility] Comment on above: Order Comment: Speci men Type: BLOOD SPECIMENOrdering Facility: [facility] Address: [address] [place] [address] Performed By: #### 4 537-7, 29025-0 ####[facility] LABCLIA [id number] [place] [address] [place] Neutrophils (Bld) [#/Vol] 3.91 10*3/uL Normal 1.45-7.50 [facility] Comment on above: Order Comment: Speci men Type: BLOOD SPECIMENOrdering Facility: [facility] Address: [address] [place] [address] Performed By: #### 4 537-7, 63389-6 ####[facility] LABCLIA [id number] [place] [address] [place] Neutrophils/100 WBC (Bld) 59.4 % Normal [facility] Comment on above: Order Comment: Speci men Type: BLOOD SPECIMENOrdering Facility: [facility] Address: [address] [place] [address] Performed By: #### 4 537-7, 60178-3 ####[facility] LABCLIA [id number] [place] [address] [place] Nucleated RBC (Bld) [#/Vol] 10*3/uL Normal <0.01 [facility] Comment on above: Order Comment: Speci men Type: BLOOD SPECIMENOrdering Facility: [facility] Address: [address] [place] [address] Performed By: #### 4 537-7, 19671-1 ####[facility] LABCLIA [id number] [place] [address] [place] Nucleated RBC/100 WBC (Bld) [Ratio] 0.0 /100 WBC Normal [facility] Comment on above: Order Comment: Speci men Type: BLOOD SPECIMENOrdering Facility: [facility] Address: [address] [place] [address] Performed By: #### 4 537-7, 41954-1 ####[facility] LABIA [id number] [place] [address] [place] Platelet mean volume (Bld) [Entitic vol] 11.3 fL Normal 9.0-12.7 [facility] Comment on above: Order Comment: Speci men Type: BLOOD SPECIMENOrdering Facility: [facility] Address: [address] [place] [address] Performed By: #### 4 537-7, 13386-4 ####[facility] LABIA [id number] [place] [id number] [place] Platelets (Bld) [#/Vol] 283 10*3/uL Normal 150-400 [facility] Comment on above: Order Comment: Speci men Type: BLOOD SPECIMENOrdering Facility: [facility] Address: [address] [place] [address] Performed By: #### 4 537-7, 12455-5 ####[facility] LABCLIA [id number] [address] [address] [place] RBC (Bld) [#/Vol] 4.06 10*6/uL Normal 3.90-5.20 [facility] Comment on above: Order Comment: Speci men Type: BLOOD SPECIMENOrdering Facility: [facility] Address: [address] [place] [address] Performed By: #### 4 537-7, 50893-6 ####[facility] LABCLIA [id number] [place] [address] [place] WBC (Bld) [#/Vol] 6.58 10*3/uL Normal 3.70-11.00 [facility] Comment on above: Order Comment: Speci men Type: BLOOD SPECIMENOrdering Facility: [facility] Address: [address] [place] [address] Performed By: #### 4 537-7, 02503-6 ####[facility] LABIA [id number] [place] [id number] [place] CNOVon 10-07-2024 CNOV Normal [facility] CRP SerPl-mCncon 10-07-2024 CRP [Mass/Vol] mg/L Normal <0.9 [facility] Comment on above: Order Comment: Speci men Type: BLOOD SPECIMENOrdering Facility: [facility] Address: [address] [place] [address] Performed By: #### 1 988-5, 2276-4, 41671-2, 96417-7 ####[facility] LABIA [id number] [place] [id number] [place] Comprehensive metabolic 2000 panelon 10-07-2024 Albumin [Mass/Vol] 4.3 g/dL Normal 3.9-4.9 [facility] Comment on above: Order Comment: Speci men Type: BLOOD SPECIMENOrdering Facility: [facility] Address: [address] [place] [address] Performed By: #### 1 988-5, 2276-4, 87461-5, 82749-9 ####[facility] LABIA [id number] [place] [address] [place] ALP [Catalytic activity/Vol] 35 U/L Normal 34-123 [facility] Comment on above: Order Comment: Speci men Type: BLOOD SPECIMENOrdering Facility: [facility] Address: [address] [place] [address] Performed By: #### 1 988-5, 2276-4, 72518-5, 44238-1 ####[facility] [id number] [place] [address] [place] ALT [Catalytic activity/Vol] 11 U/L Normal 7-38 [facility] Comment on above: Order Comment: Speci men Type: BLOOD SPECIMENOrdering Facility: [facility] Address: [address] [place] [address] Performed By: #### 1 988-5, 2276-4, 24198-2, 47664-6 ####[facility] [id number] [place] [address] [place] Anion gap [Moles/Vol] 12 mmol/L Normal 8-15 [facility] Comment on above: Order Comment: Speci men Type: BLOOD SPECIMENOrdering Facility: [facility] Address: [address] [place] [address] Performed By: #### 1 988-5, 2276-4, 50103-2, 95570-8 ####[facility] [id number] [place] [id number] [place] AST [Catalytic activity/Vol] 17 U/L Normal 13-35 [facility] Comment on above: Order Comment: Speci men Type: BLOOD SPECIMENOrdering Facility: [facility] Address: [address] [place] [address] Performed By: #### 1 988-5, 2276-4, 80192-5, 83758-0 ####[facility] LABCLIA [id number] [address] [address] [place] Bilirubin [Mass/Vol] 0.3 mg/dL Normal 0.2-1.3 [facility] Comment on above: Order Comment: Speci men Type: BLOOD SPECIMENOrdering Facility: [facility] Address: [address] [place] [address] Performed By: #### 1 988-5, 2276-4, 54994-8, 03350-4 ####[facility] [id number] [place] [id number] [place] Calcium [Mass/Vol] 9.5 mg/dL Normal 8.5-10.2 [facility] Comment on above: Order Comment: Speci men Type: BLOOD SPECIMENOrdering Facility: [facility] Address: [address] [place] [address] Performed By: #### 1 988-5, 2276-4, 81358-8, 46021-9 ####[facility] [id number] [place] [id number] [place] Chloride [Moles/Vol] 105 mmol/L Normal 98-107 [facility] Comment on above: Order Comment: Speci men Type: BLOOD SPECIMENOrdering Facility: [facility] Address: [address] [place] [address] Performed By: #### 1 988-5, 2276-4, 10992-4, 67321-6 ####[facility] [id number] [place] [id number] [place] CO2 [Moles/Vol] 23 mmol/L Normal 22-30 [facility] Comment on above: Order Comment: Speci men Type: BLOOD SPECIMENOrdering Facility: [facility] Address: [address] [place] [address] Performed By: #### 1 988-5, 2276-4, 85784-2, 83319-6 ####[facility] [id number] [address] [address] [place] Creatinine [Mass/Vol] 1.09 mg/dL High 0.58-0.96 [facility] Comment on above: Order Comment: Speci men Type: BLOOD SPECIMENOrdering Facility: [facility] Address: [address] [place] [address] Performed By: #### 1 988-5, 2276-4, 83714-7, 25917-0 ####[facility] [id number] [address] [address] [place] Creatinine and Glomerular filtration rate.predicted panel (S/P/Bld) 55 mL/min/1.73m??? Low >=60 [facility] Comment on above: Order Comment: Gilberti men Type: BLOOD SPECIMENOrdering Facility: [facility] Address: [address] [place] [address] Result Comment: Venkatesh mated Glomerular Filtration Rate (eGFR) is calculated using the 2020 CKD-EPI creatinine equation. This equation utilizes serum creatinine, sex, and age as parameters. The creatinine assay has traceable calibration to isotope dilution-mass spectrometry. Refer to KDIGO guidelines for clinical interpretation. In patients with unstable renal function, e.g. those with acute kidney injury, the eGFR may not accurately reflect actual GFR. Performed By: #### 1 988-5, 2276-4, 60192-9, 91700-5 ####[facility] [id number] [address] [address] [place] Glucose [Mass/Vol] 107 mg/dL High 74-99 [facility] Comment on above: Order Comment: Speci men Type: BLOOD SPECIMENOrdering Facility: [facility] Address: [address] [place] [address] Result Comment: The [place] Diabetes Association (ADA) provides guidance for cutoff values for fasting glucose and random glucose. The ADA defines fasting as no caloric intake for at least 8 hours. Fasting plasma glucose results between 100 to 125 mg/dL indicate increased risk for diabetes (prediabetes).Fasting plasma glucose results greater than or equal to 126 mg/dL meet the criteria for diagnosis of diabetes. In the absence of unequivocal hyperglycemia, results should be confirmed by repeat testing. In a patient with classic symptoms of hyperglycemia or hyperglycemic crisis, random plasma glucose results greater than or equal to 200 mg/dL meet the criteria for diagnosis of diabetes.Reference: Standards of Medical Care in Diabetes 2016, [place] [employer] Association. Diabetes Care. 2016.39(Suppl 1). Performed By: #### 1 988-5, 2276-4, 25469-2, 64612-4 ####[facility] [id number] [place] [id number] [place] Potassium [Moles/Vol] 4.3 mmol/L Normal 3.7-5.1 [facility] Comment on above: Order Comment: Speci men Type: BLOOD SPECIMENOrdering Facility: [facility] Address: [address] [place] [address] Performed By: #### 1 988-5, 2276-4, 07287-2, 03027-9 ####[facility] [id number] [place] [address] [place] Protein [Mass/Vol] 6.8 g/dL Normal 6.3-8.0 [facility] Comment on above: Order Comment: Speci men Type: BLOOD SPECIMENOrdering Facility: [facility] Address: [address] [place] [address] Performed By: #### 1 988-5, 2276-4, 69674-9, 36855-5 ####[facility] [id number] [place] [id number] [place] Sodium [Moles/Vol] 140 mmol/L Normal 136-144 [facility] Comment on above: Order Comment: Speci men Type: BLOOD SPECIMENOrdering Facility: [facility] Address: [address] [place], [place] [address] Performed By: #### 1 988-5, 2276-4, 13035-5, 29338-9 ####[facility] LABCLIA [id number] [place] [address] [place] Urea nitrogen [Mass/Vol] 16 mg/dL Normal 7-21 [facility] Comment on above: Order Comment: Speci men Type: BLOOD SPECIMENOrdering Facility: [facility] Address: [address] [place], [place] [address] [address] Performed By: #### 1 988-5, 2276-4, 84400-0, 71170-7 ####[facility] LABCLIA [id number] [place] [address] [place] ESR Westergren method (Bld) [Velocity]on 10-07-2024 ESR (Bld) [Velocity] 8 mm/h [facility] Interpretation and review of laboratory results Normal [facility] ESR (Bld) [Velocity] 8 mm/h Normal 0-20 [facility] Comment on above: Order Comment: Speci men Type: BLOOD SPECIMENOrdering Facility: [facility] Address: [address] [place], [place] [address] [address] Performed By: #### 4 537-7, 67062-5 ####[facility] [id number] [place] [address] [place] Ferritin SerPl-mCncon 2024 Ferritin [Mass/Vol] 75.4 ng/mL Normal 14.7-205.1 [facility] Comment on above: Order Comment: Speci men Type: BLOOD SPECIMENOrdering Facility: [facility] Address: [facility] [address] Performed By: #### 1 988-5, 2276-4, 21949-5, 87104-2 ####[facility] LABCLIA [id number] [place] [address] [place] Iron and Iron binding capaci ty panelon 10-07-2024 Iron [Mass/Vol] 49 ug/dL Normal 41-186 [facility] Comment on above: Order Comment: Speci men Type: BLOOD SPECIMENOrdering Facility: [facility] Address: [address] [place] [address] Performed By: #### 1 988-5, 2276-4, 77580-1, 43374-6 ####[facility] LABCLIA [id number] [place] [address] [place] Iron binding capacity [Mass/Vol] 420 ug/dL High 232-386 [facility] Comment on above: Order Comment: Speci men Type: BLOOD SPECIMENOrdering Facility: [facility] Address: [address] [place] [address] Performed By: #### 1 988-5, 2276-4, 89919-1, 73774-9 ####[facility] LABCLIA [id number] [place] [address] [place] Iron/TIBC [Molar ratio] 11.7 % Low 15.0-57.0 [facility] Comment on above: Order Comment: Speci men Type: BLOOD SPECIMENOrdering Facility: [facility] Address: [address] [place] [address] Performed By: #### 1 988-5, 2276-4, 59569-8, 61530-3 ####[facility] [id number] [place] [address] [place] Nuclear Ab IA Ql (S)on 10-07 SHUN SCR QUAL Positive Abnormal Negative [facility] Comment on above: Order Comment: Speci men Type: BLOOD SPECIMENOrdering Facility: [facility] Address: [address] [place] [address] Result Comment: The qualitative antinuclear antibody screen test performed using the following antigens: dsDNA, Chromatin, Ribosomal P, SS-A 60, SS-A 52, SS-B, Sm, SmRNP, FLIGHT AGENT A, FLIGHT AGENT 68, Scl-70, Francesca-1, and Centromere B. Methodology: Multiplex flow immunoassay. Performed By: #### 4 7383-5 ####[facility] [id number] [place] [address] [place] Rheumatoid fact SerPl-aCncon 10-07-2024 Rheumatoid factor Qn [IU]/mL Normal <16 [facility] Comment on above: Order Comment: Speci men Type: BLOOD SPECIMENOrdering Facility: [facility] Address: [address] [place] [address] Performed By: #### 3 084-1, 15528-9 ####[facility] [id number] [address] [place] Urate SerPl-mCncon Urate [Mass/Vol] 3.0 mg/dL Normal 2.5-6.6 [facility] Comment on above: Order Comment: Speci men Type: BLOOD SPECIMENOrdering Facility: [facility] Address: [address] [place] [address] Performed By: #### 3 084-1, 05301-5 ####[facility] [id number] [address] OF [place] CNPNon 08-26-2024 CNPN Telephone (AGSPINE2) -------- ELSA PUGH ([id number]) 1955 F Date Time Provider Department 08/26/24 TRENTON SEAMAN AGSPINE2 During your visit today, we recorded the following information about you: Houston Monk LPN 08/26/2024 2:23 PM Signed Attempted to contact patient to follow up after procedure. Left a brief message asking patient to return call if they have any questions or concerns. Houston Monk LPN Allergies As of Date: 08/26/2024 Noted Allergy Reaction ASA (SALICYLATES) 07/05/2005 11 - Vomiting AUGMENTIN (AMOXICILLIN-POT CLAVUL*07/05/2005 8 - GI Upset BELLADONNA (BELLADONNA ALKALOIDS) 01/05/2009 5 - Intolerance Comments: GI upset BENAZEPRIL 09/20/2005 3 - Cough Comments: Sep 2005 BUTAZOLIDIN (PHENYLBUTAZONE) 05/07/2023 16 - Unknown CARBIDOPA 07/05/2005 DARVOCET-N 100 (PROPOXYPHENE N-AC*07/05/2005 5 - Intolerance Comments: HEADACHE DOXYCYCLINE 05/07/2023 14 - Other: See Comments Comments: Patient ended up in ER with tongue and throat swelling- allergy not ruled out GUAIFENESIN-SODIUM CITRATE 07/05/2005 IBUPROFEN 07/05/2005 2 - Rash JARDIANCE (EMPAGLIFLOZIN) 05/18/2024 5 - Intolerance Comments: Vaginal itching LEVAQUIN (LEVOFLOXACIN) 02/10/2014 14 - Other: See Comments Comments: Hallucinations anxiety numbness tingling LOPID (GEMFIBROZIL) 07/05/2005 NIACIN 07/05/2005 NIASPAN (NIACIN (ANTIHYPERLIPIDEM*2005 PENICILLINS 02/10/2014 4 - Hives PROVIGIL (MODAFINIL) 08/08/2017 1 - Mental Status Change Comments: hallucinations RAMIPRIL 05/07/2023 16 - Unknown NLDBIBW-KKV-DDL REDUCTASE INHIBIT*12/03/2022 17 - Myalgia SULFA (SULFONAMIDE ANTIBIOTICS) 07/05/2005 TRAMADOL 02/10/2014 14 - Other: See Comments Comments: stroke like symptoms Date Reviewed: 08/24/2024 Reviewed by: Jesus Jaramillo LPN - Fully Assessed Reason for Visit: Appointment [186] Cmt: ILESI Prescriptions as of 08/26/2024 - blood sugar diagnostic (BLOOD GLUCOSE TEST) test strip Test blood sugar(s) 2 times daily. Dx: Type 2 DM - Controlled E11.9 Insulin: No - Lancets Test blood sugar(s) 2 times daily. Dx: Type 2 DM - Controlled E11.9 Insulin: No - citalopram (CELEXA) 40 mg tablet Take 1 tablet by mouth once daily. - SITagliptin phosphate (JANUVIA) 50 mg tablet Take 1 tablet by mouth once daily. - evolocumab 140 mg/mL subcutaneous pen injector (REPATHA SURECLICK) Inject 140 mg subcutaneously every 2 weeks. - albuterol HFA (PROVENTIL HFA, VENTOLIN HFA) 90 mcg/actuation inhaler Inhale 2 Puffs as instructed every 4 hours as needed for wheezing/shortness of breath. - metFORMIN (GLUCOPHAGE) 1,000 mg tablet Take 1 tablet by mouth two times a day with meals. - pregabalin (LYRICA) 150 mg capsule TAKE 1 CAPSULE BY MOUTH TWICE DAILY AT SUPPER AND BEDTIME - CPAP/BIPAP/OTHER Type .CPAPSettings into a note to see current settings/supplies/DME information. - fenofibrate nanocrystallized (TRICOR) 145 mg tablet Take 1 tablet by mouth once daily. - metoprolol succinate ER (TOPROL XL) 25 mg 24 hr tablet Take 0.5 tablets by mouth once daily. - aspirin, enteric coated (ASPIRIN, ENTERIC COATED) 81 mg EC tablet Take 1 tablet by mouth once daily. - promethazine (PHENERGAN) 25 mg tablet Take 1 tablet by mouth every 6 hours as needed for nausea/vomiting. - clopidogrel (PLAVIX) 75 mg tablet Take 75 mg by mouth once daily. - isosorbide mononitrate ER (IMDUR) 60 mg 24 hr tablet Take 90 mg by mouth once daily. - pantoprazole DR (PROTONIX) 40 mg tablet Take 1 tablet by mouth once daily. Take on empty stomach, 1/2 hr before meal. - cholecalciferol (VITAMIN D-3) 50 mcg (2,000 unit) tablet Take 2,000 Units by mouth once daily. - CPAP/BIPAP/OTHER Formal mask fitting to consider smaller FFM like dreamwear due to dry eyes and supplies for bipap 13/8cmH2O DME [facility] - CPAP/BIPAP/OTHER Replacement auto bipap 13/8 with PS of 5cmH2O DME [facility] - CPAP/BIPAP/OTHER Settings decrease to autobipap 13/8cmH2O DME [employer] - BIPAP DME change for supplies. Pt has a [employer]med Auto BiPAP IPAP max 18, EPAP min 6 CM H2O, PS 5 cmH2O. mask, filters, heated humidity AND tubing, [employer] supplies. LADAN G47.33 - red yeast rice 600 mg tab - ascorbic acid, vitamin C, (VITAMIN C) 500 mg tablet Take 500 mg by mouth daily at bedtime. - nitroglycerin sublingual (NITROQUICK) 0.4 mg SL tablet Dissolve 0.4 mg under the tongue. - MAGNESIUM ORAL Take 300 mg by mouth twice daily. some days takes three tablets - ranolazine ER (RANEXA) 500 mg 12 hr tablet Take 1,000 mg by mouth twice daily. Problem List As Of Date 08/26/2024 Noted Resolved Coronary artery disease of [place] artery of [place]* S/P CABG x 4 [Z95.1] 2001 Essential hypertension [I10] 02/08/2006 Hyperlipidemia [E78.5] 02/08/2006 ESOPHAGEAL REFLUX [K21.9] 02/08/2006 Unspecified sleep apnea [G47.30] 02/08/2006 04/03/2014 CHRONIC RHINITIS [ (more content not included)... Normal [facility] GLUCOSE, BLOOD (POC)on 08-24 Glucose [Mass/Vol] 173 mg/dL Abnormal 74 - 99 mg/dL [facility] Comment on above: Location:[facility], [address], [facility] The Accu-Chek Inform II glucose meter has not been approved for testing on patients receiving intensive medical intervention or therapy and results from this point of care glucose test should not be used for patient management decisions in these cases. Inaccurate results may also occur from other interfering factors, such as N-acetylcysteine (blood concentrations of greater than 5mg/dL), galactose, extremes of hematocrit (<10 or >65), or high doses of ascorbic acid (vitamin C) greater than 3mg/dL. Consider alternate testing mechanisms (e.g. core lab, blood gas instrument) in the above situations. Interpretation and review of laboratory results Abnormal [facility] CNPNon 08-20-2024 CNPN Normal [facility] Cardiology Visit Reporton Cardiology Visit Report [facility] [address] [place], [place] [address] OFFICE VISIT Date of Service: 08/19/24 MR#: [id number] Acct: [id number] Name: ELSA PUGH Rep #: [id number] : 1955 Provider: LINDA haywood Age/Sex: 69/F Location: [facility] Status: Signed HPI HPI History of Present Illness Details: Ms. Tariq is a pleasant 69-year-old lady who presents to the office today for a cardiovascular follow-up visit. She has an extensive cardiac history. Dates back to 2002 when she was evaluated with chest pain and palpitations. She had had cardiac catheterizations in 1997 as well as 2001. At that time significant coronary disease was noted and she underwent coronary bypass surgery in 2001 with a left internal mammary artery to the left anterior descending artery, radial artery to the first obtuse marginal branch, and a sequential saphenous vein graft to the posterior descending artery and second right posterior descending artery. In addition, she had a history of hypertension, hyperlipidemia, low HDL syndrome, hyper homocystinemia, intolerance of statins and xfq-ofpxcsh-userhcyos diabetes mellitus. She has had numerous cardiac procedures including PCI in 2012 with a drug-eluting stent to the saphenous vein graft to right posterior descending artery, in 2014 with a drug-eluting stent to the proximal LAD and in-stent stenosis of the saphenous vein graft to the posterior descending artery. In 2015 she had a PCI to the saphenous vein graft to the posterior descending artery. In 2016 she had in-stent restenosis of that vessel as well as in 2017. Her catheterization in August 2017 demonstrated a normal left main coronary artery, and left circumflex artery which had 25 to 30% proximal stenosis, and left anterior descending artery which had a stented proximal portion the mid segment had a 40 to 50% stenosis, the left internal mammary artery to the left anterior descending artery was noted to be occluded, the right coronary artery was occluded, the saphenous vein graft to the posterior descending artery was patent. The distal body of the graft was a stented segment with 90% stenosis and therefore she underwent successful catheter-based drug-eluting stent placement to the proximal and distal body of the saphenous vein graft. The radial artery was noted to be previously occluded. Patient presented to the emergency room on 04/27/2023 with complaints of shortness of breath. She thought she was having an allergic reaction to doxycycline, she felt her tongue slightly swell and had shortness of breath. During her emergency room visit, she was noted to have some chest pain as well and describes this as a brief sharp pain to the left chest she was then admitted to the hospital for further evaluation, and underwent a cardiac catheterization on 04/29/2023 which demonstrated left anterior descending occluded, her RCA occluded stent and severe atherosclerosis with an in-stent restenosis in the midportion of the SVG graft as well as there is a lesion at the distal part of the vein graft which is at least 80%, and radial graft to the OM is occluded. She was transferred to [facility] for further evaluation, while at [facility] she underwent 3 drug-eluting stents, and was placed on Brilinta twice daily. Presented to the emergency room on 05/18/2023 with complaints of chest discomfort. Her chest discomfort was atypical at that time. Her troponins were noted to be normal. Cardiology was consulted, and her cardiac catheterization report was reviewed. Patient was instructed to continue her Ranexa, increase isosorbide to 60 mg daily, and increase losartan to 50 mg twice daily. She was evaluated [facility] in April 2024 for chest pain. Her troponin was negative x 3. Invasive evaluation was not felt to be beneficial/needed. She denies chest, arm, jaw, or neck discomfort. She denies palpitations. She denies bilateral lower extremity edema. She denies claudication. She states shortness of breath with activity and shortness of breath at rest that is unchanged from previous. She denies orthopnea or PND. She denies chronic cough. She denies significant, sudden weight gain. She states lightheadedness. She denies dizziness, near-syncope, or syncope. She denies blood in urine, blood in stool, or epistaxis. He denies fever with chills. She denies myalgia. She states fatigue. Her exercise level has remained stable. Intake Vital Signs 05/07/24 16:05 08/19/24 10:48 Height 5 ft 6 in 5 ft 6 in Weight: 197 lb 192 lb BMI 31.8 30.9 BP 124/73 H 144/77 H Blood Pressure Location Lt brachial Lt brachial Position Sitting Sitting Respiration 18 18 Pulse 61 55 L Pulse Source NIBP NIBP Intake Visit Reasons: 3 M FU Enrollment Clerk Required: No Is patient in pain?: Yes (chest and abdomen soreness d (more content not included)... Normal [facility] CNOVon 08-05-2024 CNOV Normal [facility] HEMOGLOBIN A1C (POC)on 08-05 HbA1c (Bld) [Mass fraction] 7 % Abnormal 4.3 - 5.6 % [facility] Comment on above: Location:[address], [place], [address] Point of care (POC) Hemoglobin A1c (HGBA1C) testing is intended to assess glucose control and provide a management tool for patients known to have diabetes and their healthcare providers. Target HGBA1C levels may depend on specific clinical circumstances. POC HGBA1C is not intended for use as a diagnostic or screening test; laboratory-based testing should be used for diagnostic purposes. The following information is supplemental and may not be applicable to specific diabetes management situations: The POC device aeronautics commission director provides a normal range of 4.2% to 6.5% for the HGBA1C POC test. However, the [place] [employer] guidelines indicate that patients with HGBA1C in the range of 5.7% to 6.4% are at increased risk for development of diabetes and that intervention by lifestyle modification may be beneficial. A HGBA1C level greater than or equal to 6.5% is considered diagnostic of diabetes, pending confirmatory testing. Use of HGBA1C testing to evaluate glucose control may not be appropriate for patients with hemoglobin variants or other conditions (e.g. anemia) that alter red blood cell lifespan. Interpretation and review of laboratory results Abnormal [facility] CPAP REPORTon 07-14-2024 Sample Body Builder PDF report received from [facility] and attached via [employer] [facility] PDF report received from [facility] and attached via [employer] OTHER CNCOon 07-08-2024 CNCO Letter Text Normal [facility] CNCOon 07-02-2024 CNCO Letter Text Normal [facility] CNOVon 07-02-2024 CNOV Office Visit (SPAGWO ) -------- ELSA PUGH ([id number]) 1955 F Date Time Provider Department 07/02/24 1:00 PM BAYLEE COLIN During your visit today, we recorded the following information about you: Pulse Respiration Normal [facility] CNPNon 07-02-2024 CNPN Telephone (AGSPINE3) -------- ELSA PUGH ([id number]) 1955 F Date Time Provider Department 07/02/24 DVE PIMENTELHIR AGSPINE3 During your visit today, we recorded the following information about you: Meredith Martin 07/02/2024 1:24 PM Signed Procedure(s) being scheduled: Epidural Steroid Injection 1.Are you diabetic Yes. Please list the current medications being prescribed metforman 2. Are you on any blood thinners? Yes. Please list the current medications being prescribed Flavix. If yes, does it require a hold? Yes If yes, was approval letter sent? Yes 3. Are you taking any aspirin? Yes. Please list the current medications being prescribed 81mg. 4. Are you currently taking any antibiotics? No If yes, is it prophylactic or for treatment of an infection? no 5. Do you have any allergies to latex? No 6. Do you have any allergies to seafood or shellfish? No 7. Do you have any allergies to x-ray dye? No 8. Does this procedure require a milk delivery driver? Yes If yes, has patient been notified that a milk delivery driver is needed and must be present at check in? yes 9. Were the pre-procedure instructions explained and provided to the patient? Yes 10. Do you have a pacemaker? No 11. Do you have an internal stimulator of any kind? No If yes, please bring the remote with you to your procedure visit. Meredith Martin Allergies As of Date: 07/02/2024 Noted Allergy Reaction ASA (SALICYLATES) 07/05/2005 11 - Vomiting AUGMENTIN (AMOXICILLIN-POT CLAVUL*07/05/2005 8 - GI Upset BELLADONNA (BELLADONNA ALKALOIDS) 01/05/2009 5 - Intolerance Comments: GI upset BENAZEPRIL 09/20/2005 3 - Cough Comments: Sep 2005 BUTAZOLIDIN (PHENYLBUTAZONE) 05/07/2023 16 - Unknown CARBIDOPA 07/05/2005 DARVOCET-N 100 (PROPOXYPHENE N-AC*07/05/2005 5 - Intolerance Comments: HEADACHE DOXYCYCLINE 05/07/2023 14 - Other: See Comments Comments: Patient ended up in ER with tongue and throat swelling- allergy not ruled out GUAIFENESIN-SODIUM CITRATE 07/05/2005 IBUPROFEN 07/05/2005 2 - Rash JARDIANCE (EMPAGLIFLOZIN) 05/18/2024 5 - Intolerance Comments: Vaginal itching LEVAQUIN (LEVOFLOXACIN) 02/10/2014 14 - Other: See Comments Comments: Hallucinations anxiety numbness tingling LOPID (GEMFIBROZIL) 07/05/2005 NIACIN 07/05/2005 NIASPAN (NIACIN (ANTIHYPERLIPIDEM*2005 PENICILLINS 02/10/2014 4 - Hives PROVIGIL (MODAFINIL) 08/08/2017 1 - Mental Status Change Comments: hallucinations RAMIPRIL 05/07/2023 16 - Unknown [id number] REDUCTASE INHIBIT*12/03/2022 17 - Myalgia SULFA (SULFONAMIDE ANTIBIOTICS) 07/05/2005 TRAMADOL 02/10/2014 14 - Other: See Comments Comments: stroke like symptoms Date Reviewed: 07/02/2024 Reviewed by: Baylee Colin APRN.[employer] - Fully Assessed Reason for Visit: Injections [199] Cmt: questions Prescriptions as of 07/02/2024 - urea (CARMOL) 40 % Apply to affected area once daily. - evolocumab 140 mg/mL subcutaneous pen injector (REPATHA SURECLICK) Inject 140 mg subcutaneously every 2 weeks. - albuterol HFA (PROVENTIL HFA, VENTOLIN HFA) 90 mcg/actuation inhaler Inhale 2 Puffs as instructed every 4 hours as needed for wheezing/shortness of breath. - estradiol (ESTRACE) 0.01 % (0.1 mg/gram) vaginal cream Use 1 g vaginally once daily. - albuterol HFA (PROVENTIL HFA, VENTOLIN HFA) 90 mcg/actuation inhaler Inhale 2 Puffs as instructed every 4 hours as needed for wheezing/shortness of breath. - SITagliptin phosphate (JANUVIA) 50 mg tablet Take 1 tablet by mouth once daily. - metFORMIN (GLUCOPHAGE) 1,000 mg tablet Take 1 tablet by mouth two times a day with meals. - pregabalin (LYRICA) 150 mg capsule TAKE 1 CAPSULE BY MOUTH TWICE DAILY AT SUPPER AND BEDTIME - citalopram (CELEXA) 40 mg tablet Take 1 tablet by mouth once daily. - CPAP/BIPAP/OTHER Type .CPAPSettings into a note to see current settings/supplies/DME information. - fenofibrate nanocrystallized (TRICOR) 145 mg tablet Take 1 tablet by mouth once daily. - metoprolol succinate ER (TOPROL XL) 25 mg 24 hr tablet Take 0.5 tablets by mouth once daily. - aspirin, enteric coated (ASPIRIN, ENTERIC COATED) 81 mg EC tablet Take 1 tablet by mouth once daily. - promethazine (PHENERGAN) 25 mg tablet Take 1 tablet by mouth every 6 hours as needed for nausea/vomiting. - clopidogrel (PLAVIX) 75 mg tablet Take 75 mg by mouth once daily. - isosorbide mononitrate ER (IMDUR) 60 mg 24 hr tablet Take 90 mg by mouth once daily. - pantoprazole DR (PROTONIX) 40 mg tablet Take 1 tablet by mouth once daily. Take on empty stomach, 1/2 hr before meal. - blood sugar diagnostic (BLOOD GLUCOSE TEST) test strip Test blood sugar(s) 2 times daily. Dx: Type 2 DM - Controlled E11.9 Insulin: No - Lancets lancets Test blood sugar(s) 2 times daily. Dx: Type 2 DM - Controlled E11.9 Insulin: No - cholecalciferol (VITAMIN D-3) 50 mcg (2,000 unit) tablet Take 2,000 Units (more content not included)... Normal [facility] CNPN Telephone (AGSPINE3) -------- LEXYELSA Murphy ([id number]) 1955 F Date Time Provider Department 07/02/24 [facility] AGSPINE3 During your visit today, we recorded the following information about you: Meredith Martin 07/02/2024 1:45 PM Signed Faxed anticoag letter to Dr. Yue Preciado at [facility] at , PH:[phone]. Fax confirmation received. Michele Neal, FER 07/07/2024 7:49 AM Signed Medical consent to stop taking Plavix for [address] Caldwell on 07/03/2024. The consent form was received on 07/07/2024 and is scanned into the chart. GOOD UNTIL 12/31/2024 Michele Palacios Verify Rep to Dr. Pimentel, Dr. Garcia [facility] P: [phone] / F: [phone] / Meredith Martin 07/08/2024 8:41 AM Signed Called pt scheduled ILESI L3-4 for 08-24-24 at 9:10am with Dr. Seaman in [place], follow up on 09-17-24 at 2:15 in [place] with baylee. Sent pre-procedure instructions. Meredith Martin Allergies As of Date: 07/02/2024 Noted Allergy Reaction ASA (SALICYLATES) 07/05/2005 11 - Vomiting AUGMENTIN (AMOXICILLIN-POT CLAVUL*07/05/2005 8 - GI Upset BELLADONNA (BELLADONNA ALKALOIDS) 01/05/2009 5 - Intolerance Comments: GI upset BENAZEPRIL 09/20/2005 3 - Cough Comments: Sep 2005 BUTAZOLIDIN (PHENYLBUTAZONE) 05/07/2023 16 - Unknown CARBIDOPA 07/05/2005 DARVOCET-N 100 (PROPOXYPHENE N-AC*07/05/2005 5 - Intolerance Comments: HEADACHE DOXYCYCLINE 05/07/2023 14 - Other: See Comments Comments: Patient ended up in ER with tongue and throat swelling- allergy not ruled out GUAIFENESIN-SODIUM CITRATE 07/05/2005 IBUPROFEN 07/05/2005 2 - Rash JARDIANCE (EMPAGLIFLOZIN) 05/18/2024 5 - Intolerance Comments: Vaginal itching LEVAQUIN (LEVOFLOXACIN) 02/10/2014 14 - Other: See Comments Comments: Hallucinations anxiety numbness tingling LOPID (GEMFIBROZIL) 07/05/2005 NIACIN 07/05/2005 NIASPAN (NIACIN (ANTIHYPERLIPIDEM*2005 PENICILLINS 02/10/2014 4 - Hives PROVIGIL (MODAFINIL) 08/08/2017 1 - Mental Status Change Comments: hallucinations RAMIPRIL 05/07/2023 16 - Unknown [id number] REDUCTASE INHIBIT*12/03/2022 17 - Myalgia SULFA (SULFONAMIDE ANTIBIOTICS) 07/05/2005 TRAMADOL 02/10/2014 14 - Other: See Comments Comments: stroke like symptoms Date Reviewed: 07/02/2024 Reviewed by: Baylee Colin APRN.[employer] - Fully Assessed Reason for Visit: Anticoagulation [8] Cmt: Faxed anticag letter Prescriptions as of 07/08/2024 - urea (CARMOL) 40 % Apply to affected area once daily. - evolocumab 140 mg/mL subcutaneous pen injector (REPATHA SURECLICK) Inject 140 mg subcutaneously every 2 weeks. - albuterol HFA (PROVENTIL HFA, VENTOLIN HFA) 90 mcg/actuation inhaler Inhale 2 Puffs as instructed every 4 hours as needed for wheezing/shortness of breath. - estradiol (ESTRACE) 0.01 % (0.1 mg/gram) vaginal cream Use 1 g vaginally once daily. - albuterol HFA (PROVENTIL HFA, VENTOLIN HFA) 90 mcg/actuation inhaler Inhale 2 Puffs as instructed every 4 hours as needed for wheezing/shortness of breath. - SITagliptin phosphate (JANUVIA) 50 mg tablet Take 1 tablet by mouth once daily. - metFORMIN (GLUCOPHAGE) 1,000 mg tablet Take 1 tablet by mouth two times a day with meals. - pregabalin (LYRICA) 150 mg capsule TAKE 1 CAPSULE BY MOUTH TWICE DAILY AT SUPPER AND BEDTIME - citalopram (CELEXA) 40 mg tablet Take 1 tablet by mouth once daily. - CPAP/BIPAP/OTHER Type .CPAPSettings into a note to see current settings/supplies/DME information. - fenofibrate nanocrystallized (TRICOR) 145 mg tablet Take 1 tablet by mouth once daily. - metoprolol succinate ER (TOPROL XL) 25 mg 24 hr tablet Take 0.5 tablets by mouth once daily. - aspirin, enteric coated (ASPIRIN, ENTERIC COATED) 81 mg EC tablet Take 1 tablet by mouth once daily. - promethazine (PHENERGAN) 25 mg tablet Take 1 tablet by mouth every 6 hours as needed for nausea/vomiting. - clopidogrel (PLAVIX) 75 mg tablet Take 75 mg by mouth once daily. - isosorbide mononitrate ER (IMDUR) 60 mg 24 hr tablet Take 90 mg by mouth once daily. - pantoprazole DR (PROTONIX) 40 mg tablet Take 1 tablet by mouth once daily. Take on empty stomach, 1/2 hr before meal. - blood sugar diagnostic (BLOOD GLUCOSE TEST) test strip Test blood sugar(s) 2 times daily. Dx: Type 2 DM - Controlled E11.9 Insulin: No - Lancets lancets Test blood sugar(s) 2 times daily. Dx: Type 2 DM - Controlled E11.9 Insulin: No - cholecalciferol (VITAMIN D-3) 50 mcg (2,000 unit) tablet Take 2,000 Units by mouth once daily. - CPAP/BIPAP/OTHER Formal mask fitting to consider smaller FFM like dreamwear due to dry eyes and supplies for bipap 13/8cmH2O DME [facility] - CPAP/BIPAP/OTHER Replacement auto bipap 13/8 with PS of 5cmH2O DME [facility] - CPAP/BIPAP/OTHER S (more content not included)... Normal [facility] CNOVon 06-26-2024 CNOV Normal [facility] BACTERIAL VAGINOSIS NAATon 1 08-04-2023 Lactobacillus crispatus+gasseri+brooke senii + Gardnerella vaginalis + Atopobium vaginae rRNA NIEVES+probe Ql (Vag fld) Not detected Normal Not detected [facility] Comment on above: Order Comment: Speci men Type: SWABOrdering Facility: [facility] Address: [address] [place] [address] Performed By: #### B VAMP, CVTV ####[facility] LABCLIA [id number] [place] [address] [place] HARPREET/TRICHOMONAS NAATon 1 08-04-2023 C. glabrata RNA NIEVES+probe Ql (Vag fld) Not detected Normal Not detected [facility] Comment on above: Order Comment: Speci men Type: SWABOrdering Facility: [facility] Address: [address] [place] [address] Performed By: #### B VAMP, CVTV ####[facility] LABCLIA [id number] [place] [address] [place] Harpreet sp DNA NIEVES+probe Ql (Vag fld) Not detected Normal Not detected [facility] Comment on above: Order Comment: Speci men Type: SWABOrdering Facility: [facility] Address: [address] [place] [address] Performed By: #### B VAMP, CVTV ####[facility] LABCLIA [id number] [place] [address] [place] T. vaginalis DNA NIEVES+probe Ql (Unsp spec) Not detected Normal Not detected [facility] Comment on above: Order Comment: Speci men Type: SWABOrdering Facility: [facility] Address: [address] [place] [address] Performed By: #### B VAMP, CVTV ####[facility] LABCLIA [id number] [place] [address] [place] CNOVon 06-03-2024 CNOV Normal [facility] CNPNon 06-03-2024 CNPN Normal [facility] XR KNEE 4V AP/PA BOTH+LAT/ME R RTon 06-03-2024 XR KNEE 4V AP/PA BOTH+LAT/VIET RT Normal [facility] XR Knee - right 4 Viewson IMPRESSION: 1. Right suprapatellar joint effusion without radiographic evidence of acute osseous injury. 2. Degenerative changes as described. 3. Atherosclerosis. County Attorney: L[place]LIE Transcribe Date/Time: Jun 03 2024 11:23A Dictated by : MILY CRUZ MD This examination was interpreted and the report reviewed and electronically signed by: MILY CRUZ MD on Jun 03 2024 11:27AM [facility] DIVISION OF RADIOLOGY * * *Final Report* * * DATE OF EXAM: Jun 03 2024 11:17AM WOX 5203 - XR KNEE 4V AP/PA BOTH+LAT/VIET RT / PROCEDURE REASON: multiple diagnoses * * * * Physician Interpretation * * * * TITLE: XR KNEE 4V AP/PA BOTH+LAT/VIET RT CLINICAL INDICATION: Pain and swelling TECHNIQUE: AP/PA/merchant radiographs of both knees and lateral radiograph of the right knee COMPARISON: Radiograph dated 10/07/2023 FINDINGS: Right knee: Moderate suprapatellar joint effusion. No acute fracture or dislocation identified. Mild lateral compartmental joint space narrowing with marginal osteophyte formation. Mild patellofemoral compartmental joint space narrowing. Atherosclerotic calcification of the vasculature. Left knee: No acute fracture or dislocation identified. Mild lateral and patellofemoral compartmental joint space narrowing. Atherosclerotic calcification of the vasculature. Surgical clips in the medial distal thigh and proximal calf DIVISION OF RADIOLOGY Provider, [facility] - 06/03/2024 * * *Final Report* * * DATE OF EXAM: Jun 03 2024 11:17AM WOX 5203 - XR KNEE 4V AP/PA BOTH+LAT/VIET RT / PROCEDURE REASON: multiple diagnoses * * * * Physician Interpretation * * * * TITLE: XR KNEE 4V AP/PA BOTH+LAT/VIET RT CLINICAL INDICATION: Pain and swelling TECHNIQUE: AP/PA/merchant radiographs of both knees and lateral radiograph of the right knee COMPARISON: Radiograph dated 10/07/2023 FINDINGS: Right knee: Moderate suprapatellar joint effusion. No acute fracture or dislocation identified. Mild lateral compartmental joint space narrowing with marginal osteophyte formation. Mild patellofemoral compartmental joint space narrowing. Atherosclerotic calcification of the vasculature. Left knee: No acute fracture or dislocation identified. Mild lateral and patellofemoral compartmental joint space narrowing. Atherosclerotic calcification of the vasculature. Surgical clips in the medial distal thigh and proximal calf IMPRESSION IMPRESSION: 1. Right suprapatellar joint effusion without radiographic evidence of acute osseous injury. 2. Degenerative changes as described. 3. Atherosclerosis. County Attorney: PSCB Transcribe Date/Time: Jun 03 2024 11:23A Dictated by : MILY CRUZ MD This examination was interpreted and the report reviewed and electronically signed by: MILY CRUZ MD on Jun 03 2024 11:27AM EST [facility] Radiology Study observation (narrative) [facility] XR Knee - right 4 ViewsOrder ed By: Ccf Provider on 06-03-2024 [facility] CNPNon 05-29-2024 CNPN Normal [facility] CNOVon 05-27-2024 CNOV Normal [facility] XR FOOT 3V AP/LAT/OBL LTon 1 07-28-2023 XR FOOT 3V AP/LAT/OBL LT Normal [facility] CNPNon 05-25-2024 CNPN Normal [facility] CNPNon 05-21-2024 CNPN Normal [facility] CNPNon 05-19-2024 CNPN Normal [facility] CNPNon 05-18-2024 CNPN Normal [facility] ALBUMIN/CREATININE RATIO, UR INEon 05-13-2024 Albumin DL <= 20 mg/L (U) [Mass/Vol] mg/dL Normal [facility] Comment on above: Order Comment: Speci men Type: URINE SPECIMENOrdering Facility: [facility] Address: [address] [place] [address] Performed By: #### U ACR ####[facility] LABCLIA [id number] [place] [address] [place] Albumin/Creatinine (U) [Mass ratio] <24 Normal <30 [facility] Comment on above: Order Comment: Speci men Type: URINE SPECIMENOrdering Facility: [facility] Address: [address], [place] [address] Result Comment: Not calculatedAdult Male and Female Nephrotic Criteria:<30 mg/g is considered normal to mildly jownavxaw36-824 mg/g is considered moderately increased>300 mg/g is considered severely increasedKDIGO. (2013). KDIGO 2012 Clinical Practice Guideline for the Evaluation and Management of Chronic Kidney Disease. Official Journal of the International Society of Nephrology, 3(1), 1-150. Performed By: #### U ACR ####[facility] LABCLIA [id number] [place] [address] [place] Creatinine (U) [Mass/Vol] 49.4 mg/dL Normal 20.0-300.0 [facility] Comment on above: Order Comment: Speci men Type: URINE SPECIMENOrdering Facility: [facility] Address: [address] [place] [address] Performed By: #### U ACR ####[facility] LABCLIA [id number] [place] [address] [place] Comprehensive metabolic 2000 panelon 05-13-2024 Albumin [Mass/Vol] 4.0 g/dL Normal 3.9-4.9 [facility] Comment on above: Order Comment: Speci men Type: BLOOD SPECIMENOrdering Facility: [facility] Address: [address] [place] [address] Performed By: #### 2 4331-1, 73841-7 ####[facility] LABCLIA [id number] [place] [id number] [place] ALP [Catalytic activity/Vol] 57 U/L Normal 34-123 [facility] Comment on above: Order Comment: Speci men Type: BLOOD SPECIMENOrdering Facility: [facility] Address: [address] [place] [address] Performed By: #### 2 4331-1, 90189-6 ####[facility] LABCLIA [id number] [address] [address] [place] ALT [Catalytic activity/Vol] 13 U/L Normal 7-38 [facility] Comment on above: Order Comment: Speci men Type: BLOOD SPECIMENOrdering Facility: [facility] Address: [address] [place] [id number] Performed By: #### 2 4331-1, 68897-9 ####[facility] LABCLIA [id number] [address] [address] [place] Anion gap [Moles/Vol] 10 mmol/L Normal 8-15 [facility] Comment on above: Order Comment: Speci men Type: BLOOD SPECIMENOrdering Facility: [facility] Address: [address] [place], [place] [id number] Performed By: #### 2 4331-1, 64771-5 ####[facility] LABCLIA [id number] [place] [address] [place] AST [Catalytic activity/Vol] 15 U/L Normal 13-35 [facility] Comment on above: Order Comment: Speci men Type: BLOOD SPECIMENOrdering Facility: [facility] Address: [address] [place], [place] [address] Performed By: #### 2 4331-1, 42291-0 ####[facility] LABCLIA [id number] [place] [address] [place] Bilirubin [Mass/Vol] 0.3 mg/dL Normal 0.2-1.3 [facility] Comment on above: Order Comment: Speci men Type: BLOOD SPECIMENOrdering Facility: [facility] Address: [address] [place], [place] [address] Performed By: #### 2 4331-1, 03254-1 ####[facility] LABCLIA [id number] [place] [address] [place] Calcium [Mass/Vol] 9.2 mg/dL Normal 8.5-10.2 [facility] Comment on above: Order Comment: Speci men Type: BLOOD SPECIMENOrdering Facility: [facility] Address: [address] [place], [place] [address] Performed By: #### 2 4331-1, 12773-3 ####[facility] LABCLIA [id number] [address] [address] [place] Chloride [Moles/Vol] 102 mmol/L Normal 98-107 [facility] Comment on above: Order Comment: Speci men Type: BLOOD SPECIMENOrdering Facility: [facility] Address: [address] [place] [address] Performed By: #### 2 4331-1, 46162-8 ####[facility] LABCLIA [id number] [place] [address] [place] CO2 [Moles/Vol] 28 mmol/L Normal 22-30 [facility] Comment on above: Order Comment: Speci men Type: BLOOD SPECIMENOrdering Facility: [facility] Address: [address] [place] [address] Performed By: #### 2 4331-, 63435-9 ####[facility] LABCLIA [id number] [place] [address] [place] Creatinine [Mass/Vol] 0.91 mg/dL Normal 0.58-0.96 [facility] Comment on above: Order Comment: Speci men Type: BLOOD SPECIMENOrdering Facility: [facility] Address: [address] [place] [address] Performed By: #### 2 4331-1, 51328-8 ####[facility] LABIA [id number] [place] [address] [place] Creatinine and Glomerular filtration rate.predicted panel (S/P/Bld) 68 mL/min/1.73m??? Normal >=60 [facility] Comment on above: Order Comment: Speci men Type: BLOOD SPECIMENOrdering Facility: [facility] Address: [address] [place] [address] Result Comment: Venkatesh mated Glomerular Filtration Rate (eGFR) is calculated using the 2020 CKD-EPI creatinine equation. This equation utilizes serum creatinine, sex, and age as parameters. The creatinine assay has traceable calibration to isotope dilution-mass spectrometry. Refer to KDIGO guidelines for clinical interpretation. In patients with unstable renal function, e.g. those with acute kidney injury, the eGFR may not accurately reflect actual GFR. Performed By: #### 2 4331-, ####[facility] LABCLIA [id number] [place] [address] [place] Glucose [Mass/Vol] 257 mg/dL High 74-99 [facility] Comment on above: Order Comment: Abbey hale Type: BLOOD SPECIMENOrdering Facility: [facility] Address: [address] [place] [address] Result Comment: The [place] [employer] Association (ADA) provides guidance for cutoff values for fasting glucose and random glucose. The ADA defines fasting as no caloric intake for at least 8 hours. Fasting plasma glucose results between 100 to 125 mg/dL indicate increased risk for diabetes (prediabetes).Fasting plasma glucose results greater than or equal to 126 mg/dL meet the criteria for diagnosis of diabetes. In the absence of unequivocal hyperglycemia, results should be confirmed by repeat testing. In a patient with classic symptoms of hyperglycemia or hyperglycemic crisis, random plasma glucose results greater than or equal to 200 mg/dL meet the criteria for diagnosis of diabetes.Reference: Standards of Medical Care in Diabetes 2016, [place] [employer]. Diabetes Care. 2016.39(Suppl 1). Performed By: #### 2 433-, ####[facility] LABCLIA [id number] [place] [id number] [place] Potassium [Moles/Vol] 4.3 mmol/L Normal 3.7-5.1 [facility] Comment on above: Order Comment: Abbey hale Type: BLOOD SPECIMENOrdering Facility: [facility] Address: [address] [place] [address] Performed By: #### 2 433-, ####[facility] LABCLIA [id number] [place] [address] [place] Protein [Mass/Vol] 6.3 g/dL Normal 6.3-8.0 [facility] Comment on above: Order Comment: Speci men Type: BLOOD SPECIMENOrdering Facility: [facility] Address: [address] [place] [address] Performed By: #### 2 4331-1, ####[facility] LABCLIA [id number] [place] [address] [place] Sodium [Moles/Vol] 140 mmol/L Normal 136-144 [facility] Comment on above: Order Comment: Speci men Type: BLOOD SPECIMENOrdering Facility: [facility] Address: [address] [place] [address] Performed By: #### 2 4331-1, ####[facility] LABCLIA [id number] [place] [address] [place] Urea nitrogen [Mass/Vol] 16 mg/dL Normal 7-21 [facility] Comment on above: Order Comment: Speci men Type: BLOOD SPECIMENOrdering Facility: [facility] Address: [address] [place] [address] Performed By: #### 2 4331-1, ####[facility] LABCLIA [id number] [place] [address] [place] HbA1c (Bld)on 05-13-2024 Average glucose Estimated from glycated hemoglobin (Bld) [Mass/Vol] 246 mg/dL Normal [facility] Comment on above: Order Comment: Speci men Type: BLOOD SPECIMENOrdering Facility: [facility] Address: [address] [place] [address] Result Comment: eAG: (Estimated average glucose) is a calculated value from HgbA1c and is residential sales representative of the average blood glucose level in the last 2-3 month period. Performed By: #### 5 5454-3 ####[facility] LABCLIA [id number] [place] [address] [place] HbA1c (Bld) [Mass fraction] 10.2 % High 4.3-5.6 [facility] Comment on above: Order Comment: Abbey hale Type: BLOOD SPECIMENOrdering Facility: [facility] Address: [address] [place] [address] Result Comment: Gilbert ican Diabetes Association guidelines indicate that patients with HgbA1c in the range 5.7-6.4% are at increased risk for development of diabetes, and intervention by lifestyle modification may be beneficial. HgbA1c greater or equal to 6.5% is considered diagnostic of diabetes. Performed By: #### 5 5454-3 ####[facility] LABCLIA [id number] [place] [address] [place] Lipid 1996 panelon 4 Cholesterol [Mass/Vol] 201 mg/dL High <200 [facility] Comment on above: Order Comment: Abbey hale Type: BLOOD SPECIMENOrdering Facility: [facility] Address: [address] [place] [address] Result Comment: <200 mg/dL, Desirable 200-239 mg/dL, Borderline high>239 mg/dL, High Performed By: #### 2 4331-1, 58786-2 ####[facility] LABCLIA [id number] [place] [address] [place] Cholesterol in HDL [Mass/Vol] 34 mg/dL Low >39 [facility] Comment on above: Order Comment: Abbey hale Type: BLOOD SPECIMENOrdering Facility: [facility] Address: [address] [place] [address] Result Comment: 40-5 9 mg/dL, Acceptable>59 mg/dL, High: Negative risk factor for coronary heart disease<40 mg/dL, Low: Positive risk factor for coronary heart disease Performed By: #### 2 4331-1, 34409-6 ####[facility] LABCLIA [id number] [place] [address] [place] Cholesterol in LDL [Mass/Vol] 124 mg/dL High <100 [facility] Comment on above: Order Comment: Speci men Type: BLOOD SPECIMENOrdering Facility: [facility] Address: [address] [place] [address] Result Comment: <100 mg/dL, Optimal 100-129 mg/dL, Near optimal/above optimal 130-159 mg/dL, Borderline high 160-189 mg/dL, High>189 mg/dL, Very highSecondary prevention optimal LDL Cholesterol levels are recommended to be < 70 mg/dL Performed By: #### 2 4331-1, ####[facility] LABCLIA [id number] [place] [address] [place] Cholesterol in LDL/Cholesterol in HDL [Mass ratio] 3.65 {ratio} High <2.54 [facility] Comment on above: Order Comment: Speci men Type: BLOOD SPECIMENOrdering Facility: [facility] Address: [address] [place] [address] Result Comment: Zara davila:1. National Cholesterol Education Program ATP III Guideline At-A-Glance Quick Desk Reference: National Heart, Lung, and Blood [place]. National Institutes of Health. 2001: NIH Publication No. 01-3305.2. An International Atherosclerosis Society position paper: global recommendations for the management of dyslipidemia: executive summary, Atherosclerosis. 2014: 232(2):410-413. Performed By: #### 2 433-, ####[facility] LABCLIA [id number] [place] [address] [place] Cholesterol in VLDL [Mass/Vol] 43 mg/dL High <30 [facility] Comment on above: Order Comment: Speci men Type: BLOOD SPECIMENOrdering Facility: [facility] Address: [address] [place] [address] Performed By: #### 2 4331-, ####[facility] LABCLIA [id number] [place] [id number] [place] Cholesterol non HDL [Mass/Vol] 167 mg/dL High <130 [facility] Comment on above: Order Comment: Speci men Type: BLOOD SPECIMENOrdering Facility: [facility] Address: [address] [place] [address] Result Comment: <130 mg/dL, Optimal 130-159 mg/dL, Near optimal/above optimal 160-189 mg/dL, Borderline high 190-219 mg/dL, High>219 mg/dL, Very highSecondary prevention optimal non HDL Cholesterol levels are recommended to be <100 mg/dL Performed By: #### 2 4331-1, 33592-5 ####[facility] LABCLIA [id number] [place] [address] [place] Cholesterol.total/Cho lesterol in HDL [Mass ratio] 5.91 {ratio} High <5.10 [facility] Comment on above: Order Comment: Speci men Type: BLOOD SPECIMENOrdering Facility: [facility] Address: [address] [place] [address] Performed By: #### 2 4331-1, 54040-9 ####[facility] LABCLIA [id number] [place] [address] [place] FASTING TIME 16 hrs Normal [facility] Comment on above: Order Comment: Speci men Type: BLOOD SPECIMENOrdering Facility: [facility] Address: [address] [place] [address] Performed By: #### 2 4331-1, 14429-6 ####[facility] LABCLIA [id number] [place] [address] [place] Triglyceride [Mass/Vol] 214 mg/dL High <150 [facility] Comment on above: Order Comment: Speci men Type: BLOOD SPECIMENOrdering Facility: [facility] Address: [address] [place] [address] Result Comment: <150 mg/dL, Normal 150-199 mg/dL, Borderline high 200-499 mg/dL, High>499 mg/dL, Very high Performed By: #### 2 4331-1, 12195-9 ####[facility] LABCLIA [id number] [place] [id number] [id number] [place] 12 Lead EKG performed by [facility] on 05-07-2024 12 Lead EKG performed by [facility] [address] [place] [address] 12 Lead EKG performed by [facility] 05/07/24 1633 MR#: [id number] Acct: [id number] Name: ELSA PUGH Rep #: [id number] : 1955 69 From: Trenton Packer NP STUD SETTER-C Attending Dr: Trenton Packer, STUD SETTER-C Status: DEP AMB Ordering Dr: Trenton Packer NP STUD SETTER-C Date: 05/07/24 Location: [facility] Sex: F C Admitted: BMS/12 Lead EKG performed by [facility] ECG Report Interpretation --Sinus Rhythm - Nonspecific T-abnormality. ABNORMAL Electronically signed on 05/22/2024 at 16:29 by Larry Osorio Software Version 8610 05/22/241632 Date Trenton Packer NP STUD SETTER-C CC: Dr. Redd Linda MD Date Dictated: 05/07/241632 Date Transcribed: 05/07/241632 County Attorney: [place] Signed Normal [facility] Cardiology Visit Reporton Cardiology Visit Report [facility] [address] [place] [address] OFFICE VISIT Date of Service: 05/07/24 MR#: [id number] Acct: [id number] Name: ELSA PUGH Rep #: [id number] : 1955 Provider: STUD SETTER-Rachid haywood Age/Sex: 69/F Location: [facility] Status: Signed HPI HPI History of Present Illness Details: Ms. Tariq is a pleasant 69-year-old lady who presents to the office today for a cardiovascular follow-up visit. She has an extensive cardiac history. Dates back to 2002 when she was evaluated with chest pain and palpitations. She had had cardiac catheterizations in 1997 as well as 2001. At that time significant coronary disease was noted and she underwent coronary bypass surgery in 2001 with a left internal mammary artery to the left anterior descending artery, radial artery to the first obtuse marginal branch, and a sequential saphenous vein graft to the posterior descending artery and second right posterior descending artery. In addition, she had a history of hypertension, hyperlipidemia, low HDL syndrome, hyper homocystinemia, intolerance of statins and mgc-wvhfgop-ymamrwmtg diabetes mellitus. She has had numerous cardiac procedures including PCI in 2012 with a drug-eluting stent to the saphenous vein graft to right posterior descending artery, in 2014 with a drug-eluting stent to the proximal LAD and in-stent stenosis of the saphenous vein graft to the posterior descending artery. In 2015 she had a PCI to the saphenous vein graft to the posterior descending artery. In 2016 she had in-stent restenosis of that vessel as well as in 2017. Her catheterization in August 2017 demonstrated a normal left main coronary artery, and left circumflex artery which had 25 to 30% proximal stenosis, and left anterior descending artery which had a stented proximal portion the mid segment had a 40 to 50% stenosis, the left internal mammary artery to the left anterior descending artery was noted to be occluded, the right coronary artery was occluded, the saphenous vein graft to the posterior descending artery was patent. The distal body of the graft was a stented segment with 90% stenosis and therefore she underwent successful catheter-based drug-eluting stent placement to the proximal and distal body of the saphenous vein graft. The radial artery was noted to be previously occluded. Patient presented to the emergency room on 04/27/2023 with complaints of shortness of breath. She thought she was having an allergic reaction to doxycycline, she felt her tongue slightly swell and had shortness of breath. During her emergency room visit, she was noted to have some chest pain as well and describes this as a brief sharp pain to the left chest she was then admitted to the hospital for further evaluation, and underwent a cardiac catheterization on 04/29/2023 which demonstrated left anterior descending occluded, her RCA occluded stent and severe atherosclerosis with an in-stent restenosis in the midportion of the SVG graft as well as there is a lesion at the distal part of the vein graft which is at least 80%, and radial graft to the OM is occluded. She was transferred to [facility] for further evaluation, while at [facility] she underwent 3 drug-eluting stents, and was placed on Brilinta twice daily. Presented to the emergency room on 05/18/2023 with complaints of chest discomfort. Her chest discomfort was atypical at that time. Her troponins were noted to be normal. Cardiology was consulted, and her cardiac catheterization report was reviewed. Patient was instructed to continue her Ranexa, increase isosorbide to 60 mg daily, and increase losartan to 50 mg twice daily. She was evaluated [facility] in April 2024 for chest pain. Her troponin was negative x 3. Invasive evaluation was not felt to be beneficial/needed. She continues with chest pain. This is a pressure feeling that occurs 2-3 times per week. This is worse with activity such as going up stairs. This is located mid sternal and radiates to her neck. This improves with NTG. She denies palpitations. She states bilateral lower extremity edema. She denies claudication. She states shortness of breath with activity and shortness of breath at rest. She feels the exertional shortness of breath is worsening. She is taking more breaks. She denies orthopnea or PND. She denies chronic cough. She denies significant, sudden weight gain. She states lightheadedness and headache. She denies dizziness, near-syncope, or syncope. She denies blood in urine, blood in stool, or epistaxis. He denies fever with chills. She denies myalgia. She states worsening fatigue. Her exercise level has remained stable. Intake Vital Signs 04/20/24 12:08 05/07/24 16:05 Height 5 ft 6 in 5 ft 6 in Weight: 197 lb BMI 31.8 BP 124/73 H Blood Pressure Location [facility] (more content not included)... Normal [facility] CNOVon 05-06-2024 CNOV Normal [facility] CNPTOUTREACHon 05-04-2024 CNPTOUTREACH Normal [facility] 12 Lead EKGon 04-21-[address] [facility] [address] [place] [address] 12 Lead EKG 04/20/24 1402 MR#: [id number] Acct: [id number] Name: ELSA PUGH Rep #: [id number] : 1955 69 From: Alfredo Squires MD Attending Dr: Dr. Helio Yuen DO Status : ADM MARILYN Ordering Dr: Javier Nash MD Date: 04/21/24 Location: [facility] Sex: F C Admitted: 04/20/24 Test Reason : Blood Pressure : */* mmHG Vent. Rate : 47 BPM Atrial Rate : 47 BPM P-R Int : 180 ms QRS Dur : 102 ms QT Int : 552 ms P-R-T Axes : 54 43 47 degrees QTcB Int : 488 ms Sinus bradycardia with sinus arrhythmia Otherwise normal ECG When compared with ECG of 20-Apr-2024 09:26, MANUAL COMPARISON REQUIRED DATA IS UNCONFIRMED Confirmed by Alfredo Squires ([id number]), greeting card editor MEREDITH NAVARRETE ([id number]) on 04/21/2024 1:07:45 PM Referred By: Confirmed By: Alfredo Squires 04/21/24 1307 Date Alfredo Squires MD CC: Dr. Helio Yuen DO; Dr. Redd Linda MD; Dr. Javier Nash MD Signed Normal [facility] Bedside Glucoseon 04-21-2024 FINGERSTICK GLU 258 mg/dL High [address] [place] [address] Comment on above: Result Comment: SHAINA GEMENT OF PATIENT CARE PER NURSING PROTOCOL Performed By: #### L 500.2500, L501.4021, L100.0100 #### [facility] [address] [place], [address] FINGERSTICK GLU 290 mg/dL High [address] [place] [address] Comment on above: Result Comment: SHAINA GEMENT OF PATIENT CARE PER NURSING PROTOCOL Performed By: #### L 501.080 #### [facility] [address] [place], [address] FINGERSTICK GLU 230 mg/dL High 74-106 [facility] Comment on above: Result Comment: SHAINA CHINO OF PATIENT CARE PER NURSING PROTOCOL Performed By: #### L 501.080 #### [facility] [address] [place], [address] Consultation - Cardiologyon 04-21-2024 Consultation - Cardiology [facility] Medical Records Department [address] [place] [address] Consultation - Cardiology 04/21/24 1611 MR#: [id number] Acct: [id number] Name: ELSA PUGH Rep #: [id number] : 1955 69 From: Alfredo Squires MD PCP: Dr. Redd Linda MD Status:ADM MARILYN Location: [place] [address] Assessment Plan Assessment/Plan (1) Chest pain, unspecified: QUALIFIERS: Chest pain type: other chest pain Qualified Code(s): R07.89 - Other chest pain PLAN: Patient's chest discomfort is not consistent with angina. She has negative troponins x 3 sets in the single digits. She is under tremendous amount of stress in the home environment and the symptoms are very similar to when she presented with significant stress in May 2023. I do not feel that further invasive evaluation is indicated given the less than 5% ischemia noted on the pharmacologic stress test, the lack of any elevated troponins, the lack of any EKG changes consistent with ischemia. (2) Bradycardia: PLAN: Patient is heart rate has been in the mid 40s on low-dose metoprolol 12.5 mg daily. She has been on this dose in the home environment and I feel that this is appropriate given her significant stressful situation. The patient denies any syncope or near syncope. Should she develop dizziness or near syncope I would stop the metoprolol. (3) Atherosclerosis of coronary artery: QUALIFIERS: Coronary Disease-Associated Artery/Lesion type: bypass graft [place] vs. transplanted heart: [place] heart Associated angina: without angina Qualified Code(s): I25.810 - Atherosclerosis of coronary artery bypass graft(s) without angina pectoris PLAN: Patient has diffuse atherosclerotic disease last intervention was April 2023. At that time she had a revision of the stented areas in the vein graft to the distal right coronary artery. Her YATES to the LAD and radial graft to the circumflex are known to be chronically occluded. The patient's left main trunk was patent and her LAD had been previously stented in the proximal portion and mid segment that had a 40 to 50% stenosis. The circumflex was patent had a 25 to 30% proximal stenosis. The [place] right coronary artery is chronically totally obstructed. This was from the catheterization April 2023. PLAN: Plan 1. Recommend continue current medical therapy. 2. Should the patient develop dizziness would recommend discontinuing the beta-alexandra. 3. The patient should follow-up in the [facility] office in the next 2 to 4 weeks. 4. At this point in time I do not feel that his pertinent to pursue a CAT scan to definitively define this possible pericardial cyst. HPI Consult Data Date of Consult: 04/21/24 HPI Narrative Reason for Consultation: Chest Pain HPI Narrative: ELSA PUGH, is a 69 F who presents with chest discomfort that is reminiscent to her presentation she had back in May 2023. This is somewhat atypical and right sided. Historically when she had had issues with coronary insufficiency she had primarily developed shortness of breath and left-sided chest discomfort. Her last intervention was done April 2023 and shortly after that she presented to the emergency department with atypical chest pains identical to what she has now in cardiac issues were ruled out. Her troponins on this admission are single digits x 3 sets. Her EKG does not show any acute ischemic changes she does have sinus bradycardia. She is on beta-alexandra low-dose therapy. The patient had a pharmacologic nuclear stress test done today which showed less than 5% of her myocardium to be ischemic at the apex. She also had an echocardiogram done which showed her EF to be 75% with normal atria and a hypermobile atrial septum with no evidence of PFO. She had trace mitral regurgitation and trace aortic insufficiency. There was a small pericardial cyst cyst that could explain the defect on the stress test. It was not described exactly where the small cyst was located. The patient feels back to baseline and is requesting to be discharged to home. Given her lack of any EKG changes, the resolution of her chest symptoms, the troponin has been in single digits x 3 sets, and the extreme stressful home environment I do not feel that further invasive evaluation is indicated at this point in time. The patient is status post remote CABG in 2001 where she received an internal mammary artery to the left anterior descending radial artery of the first obtuse marginal branch of the circumflex and sequential vein graft to the posterior descending artery and posterior ventricular branch of the right coronary artery. Her YATES and radial grafts are known to be chronically totally obstructed. In her vein graft to the right coronary has been intervened upon multiple times with stents the last time was April 29, [address] [facility]. The patient (more content not included)... Normal [facility] Discharge Instructionon Discharge Instruction [facility] Medical Records Department [address] [place] [address] Instructions for Home/Discharge Instructions 04/21/24 1611 MR#: [id number] Acct: [id number] Name: ELSA PUGH Rep #: [id number] : 1955 69 From: Helio Yuen DO PCP: Dr. Redd Linda MD Status:ADM MARILYN Discharge Instructions Diet Discharge Diet: No restrictions Activity Discharge Activity: No Restrictions Follow Up Care Test Results: Test results from this visit will be discussed in further detail at your follow-up appointment, if applicable. Discharge Plan Admission Admit Date/Time: 04/20/24 11:18 Primary Reason for Your Visit: Chest pain with dizziness Attending Provider: Helio Yuen Primary Care Provider: Redd Linda Consulting Providers: Javier Nash; Alfredo Squires Discharge Orders/Prescriptions Prescriptions: Continued red yeast rice 600 mg capsule 600 mg PO DAILY Rx Instructions: give with meal/snack ascorbate calcium (vitamin C) 500 mg tablet 500 mg PO DAILY pregabalin 150 mg capsule 150 mg PO BID Patient Comments: TAKE 1 CAPSULE BY MOUTH TWICE DAILY FOR 30 DAYS (TAKE ONE CAPSULE AT DINNER AND ONE CAPSULE BEFORE BED) cholecalciferol (vitamin D3) 25 mcg (1,000 unit) capsule 25 mcg PO DAILY magnesium 250 mg tablet 250 mg PO BID (DME) Handicap Placard See Rx Instructions .Route .MEDSUPPLY Qty: 1 0RF Rx Instructions: As directed Expires 06/05/2028 metformin 500 mg tablet 1,000 mg PO BID aspirin [Adult Aspirin Regimen] 81 mg tablet,delayed release (DR/EC) 81 mg PO DAILY citalopram 40 mg tablet 40 mg PO DAILY prednisone 10 mg tablet 10 mg PO DAILY Patient Comments: taper was 30mg qd x3d, 20mg qd x3d, then 10mg qd x3d. pt states she is on the 10mg qd dose now albuterol sulfate 90 mcg/actuation HFA aerosol inhaler 1 puff INHALATION Q6H PRN (Reason: shortness of breath or wheezing) Qty: 6.7 0RF isosorbide mononitrate 60 mg tablet extended release 24 hr 60 mg PO DAILY Qty: 90 3RF fenofibrate nanocrystallized 145 mg tablet 145 mg PO DAILY Qty: 90 3RF metoprolol succinate 25 mg tablet extended release 24 hr 12.5 mg PO DAILY Qty: 45 3RF furosemide 40 mg tablet 40 mg PO .COMPLEX Qty: 30 6RF Rx Instructions: 40 mg orally once daily X 3 days a week, then keep extra for as needed use for swelling, weight gain or shortness of breath; ranolazine 1,000 mg tablet extended release 12 hr 1,000 mg PO BID Qty: 180 3RF clopidogrel 75 mg tablet 75 mg PO .COMPLEX Qty: 90 3RF Rx Instructions: Take 1 tablet by mouth daily nitroglycerin 0.4 mg tablet, sublingual 0.4 mg sublingual Q5-15M PRN (Reason: chest pain) Qty: 25 3RF Rx Instructions: do not exceed 3 doses per episode isosorbide mononitrate 30 mg tablet extended release 24 hr 30 mg PO DAILY Qty: 90 3RF Rx Instructions: Adding to her 60mg isosorbide to equal 90mg daily pantoprazole 40 mg tablet,delayed release (DR/EC) 40 mg PO BID Qty: 180 3RF Referrals / Follow Up: Redd Linda MD [Primary Care Provider] - Disposition Disposition (needs filled in before D/C Order can be placed): Home, Self Care 04/21/24 1840 Helio Yuen DO CC: Dr. Redd Linda MD; Dr. Javier Nash MD; Dr. Alfredo Squires MD Signed Normal [facility] Stress Reporton 04-21-2024 Stress Report [facility] [address] [place] [address] MR#: [id number] Acct: [id number] Name: ELSA PUGH Rep #: [id number] : 1955 69 From: Laila Simmons MD Primary Care: Dr. Redd Linda MD Status: ADM MARILYN Referring Dr: Sex: F C Stress Test Report Date: 04/21/2024 Procedure: Pharmacologic stress nuclear imaging study Indications: Chest pain Consent: Per the patient Procedure: The patient underwent pharmacologic (Regadenoson 0.4mg ) evaluation with a peak heart rate of 75 beats per minute (50%predicted maximal heart rate) and a peak blood pressure of 132/70 mmHg. The baseline ECG demonstrated sinus rhythm. The peak pharmacologic ECG demonstrated no ischemic changes. There were no cardiac dysrhythmias pretest, during pharmacologic infusion, or recovery. There was no complaint of chest discomfort during pharmacologic infusion or recovery. The patient was injected with 9.5 millicuries of technetium 99m Cardiolite and subsequently rest SPECT Cardiolite nuclear imaging was obtained in the horizontal long, vertical long, and short axis views. The patient underwent pharmacologic (Regadenoson) evaluation. The patient was injected with 31.1 millicuries of technetium 99m Cardiolite and subsequently stress SPECT Cardiolite nuclear imaging was obtained in the horizontal long, vertical long, and short axis views. A gated Cardiolite study at peak stress was obtained. The examination was stopped secondary to completion of protocol. Rest and stress SPECT Cardiolite nuclear imaging status post realignment, normalization, and attenuation correction demonstrate a small reversible perfusion defect of the apex. There is end systolic thickening and brightening. The gated Cardiolite study demonstrates myocardial thickening and inward wall motion. The reported LVEF is 79%. Impression: 1. Pharmacologic (Regadenoson) evaluation 2. Peak pharmacologic ECG with no diagnostic changes. 3. There were no cardiac dysrhythmias pretest, during pharmacologic infusion, or recovery. 5. Small reversible perfusion defect of the apex suggestive of ischemia. Low risk positive stress test with less than 5% of the myocardium involved. 6. The gated Cardiolite study reports an LVEF of 79%. This note was generated with [employer] software. It may contain incorrect words, spelling, and punctuation that were not noted in checking the note before signing. 04/21/24 1227 Date Laila Simmons MD CC: Dr. Helio Yuen DO; Dr. Nura West MD; Dr. Redd Linda MD; Dr. Javier Nash MD Date Dictated: 04/21/241224 Date Transcribed: 04/21/241224 County Attorney: ROSALIA Signed [facility] 12 Lead EKGon 04-20-[address] [facility] Cardiovascular Services [address] [place] [address] 12 Lead EKG 04/21/24 0449 MR#: [id number] Acct: [id number] Name: ELSA PUGH Rep #: [id number] : 1955 69 From: Alfredo Squires MD Attending Dr: Dr. Helio Yuen DO Status : ADM MARILYN Ordering Dr: Javier Nash MD Date: 04/20/24 Location: [facility] Sex: F C Admitted: 04/20/24 Test Reason : CP Blood Pressure : */* mmHG Vent. Rate : 43 BPM Atrial Rate : 43 BPM P-R Int : 172 ms QRS Dur : 98 ms QT Int : 544 ms P-R-T Axes : 61 50 34 degrees QTcB Int : 459 ms Marked sinus bradycardia Abnormal ECG When compared with ECG of 20-Apr-2024 14:02, MANUAL COMPARISON REQUIRED DATA IS UNCONFIRMED Confirmed by Alfredo Squires ([id number]), greeting card editor MEREDITH NAVARRETE ([id number]) on 04/21/2024 1:07:00 PM Referred By: PADMAJA Confirmed By: Alfredo Squires 04/21/24 1307 Date Alfredo Squires MD CC: Dr. Helio Yuen DO; Dr. Redd Linda MD; Dr. Javier Nash MD Signed [facility] [address] [facility] Cardiovascular Services [address] [place] [address] 12 Lead EKG 04/20/24 0926 MR#: [id number] Acct: [id number] Name: ELSA PUGH Rep #: [id number] : 1955 69 From: Alfredo Squires MD Attending Dr: Dr. Helio Yuen, DO Status : ADM MARILYN Ordering Dr: Nura West MD Date: 04/20/24 Location: [facility] Sex: F C Admitted: 04/20/24 Test Reason : REPEAT-CP Blood Pressure : */* mmHG Vent. Rate : 44 BPM Atrial Rate : 44 BPM P-R Int : 188 ms QRS Dur : 96 ms QT Int : 530 ms P-R-T Axes : 11 29 25 degrees QTcB Int : 453 ms Marked sinus bradycardia Abnormal ECG Confirmed by Alfredo Squires ([id number]), greeting card editor MEREDITH NAVARRETE ([id number]) on 04/21/2024 9:15:58 AM Referred By: Confirmed By: Alfredo Squires 04/21/24 0916 Date Alfredo Squires MD CC: Dr. Helio Yuen DO; Dr. Nura West MD; Dr. Redd Linda MD Signed Normal [facility] [address] [facility] Cardiovascular Services [address] [place] [address] 12 Lead EKG 04/20/24 0740 MR#: [id number] Acct: [id number] Name: ELSA PUGH Rep #: [id number] : 1955 69 From: Alfredo Squires MD Attending Dr: Dr. Helio Yuen, DO Status : ADM MARILYN Ordering Dr: Nura West MD Date: 04/20/24 Location: [facility] Sex: F C Admitted: 04/20/24 Test Reason : CP Blood Pressure : */* mmHG Vent. Rate : 45 BPM Atrial Rate : 45 BPM P-R Int : 170 ms QRS Dur : 94 ms QT Int : 506 ms P-R-T Axes : 2 37 14 degrees QTcB Int : 437 ms Sinus bradycardia Otherwise normal ECG Confirmed by Alfredo Squires ([id number]), greeting card editor MEREDITH NAVARRETE ([id number]) on 04/21/2024 9:15:30 AM Referred By: GREGORY Confirmed By: Alfredo Squires 04/21/2415 Date Alfredo Squires MD CC: Dr. Helio Yuen DO; Dr. Nura West MD; Dr. Redd Linda MD Signed Normal [facility] Basic Metabolic Profile (BMP )on 04-20-2024 BUN/CRE 11.0 RATIO Normal 10-20 [facility] Comment on above: Order Comment: 1Y Performed By: #### L 500.2500, L501.4021, L100.0100 #### [facility] [address] [place], [address] CA,Total 9.6 mg/dL Normal 8.5-10.1 [facility] Comment on above: Order Comment: 1Y Performed By: #### L 500.2500, L501.4021, L100.0100 #### [facility] [address] [place], [address] Chloride [Moles/Vol] 96 mmol/L Low 98-107 [facility] Comment on above: Order Comment: 1Y Performed By: #### L 500.2500, L501.4021, L100.0100 #### [facility] [address] [place], [address] CO2 [Moles/Vol] 32.0 mmol/L Normal 21.0-32.0 [facility] Comment on above: Order Comment: 1Y Performed By: #### L 500.2500, L501.4021, L100.0100 #### [facility] [address] [place], [address] Creatinine [Mass/Vol] 1.36 mg/dL High 0.55-1.02 [facility] Comment on above: Order Comment: 1Y Result Comment: The validity of the calculated GFR GFRAA in patients over 70 years has not been determined. Clinical correlation is essential. Performed By: #### L 500.2500, L501.4021, L100.0100 #### [facility] [address] [place], [address] ECRCL 44.27 ml/min Normal [facility] Comment on above: Order Comment: 1Y Performed By: #### L 500.2500, L501.4021, L100.0100 #### [facility] [address] [place], [address] EST GFR - AA 49 mL/min Low >60 [facility] Comment on above: Order Comment: 1Y Result Comment: Afri can [place]an GFR Calc Performed By: #### L 500.2500, L501.4021, L100.0100 #### [facility] [address] [place], [address] GAP 7 Normal 5-15 [facility] Comment on above: Order Comment: 1Y Performed By: #### L 500.2500, L501.4021, L100.0100 #### [facility] [address] [place], [address] GFR/1.73 sq M.predicted among non-blacks MDRD (S/P/Bld) [Vol rate/Area] 41 mL/min/{1.73_m2} Low >60 [facility] Comment on above: Order Comment: 1Y Result Comment: Non- GFR Calc Performed By: #### L 500.2500, L501.4021, L100.0100 #### [facility] [address] [place], [address] Glucose [Mass/Vol] 388 mg/dL High 74-106 [facility] Comment on above: Order Comment: 1Y Result Comment: Gluc ose result greater than or equal to 200 mg/dL suggests DIABETES MELLITUS per A.D.A. criteria. Performed By: #### L 500.2500, L501.4021, L100.0100 #### [facility] [address] [place], [address] Potassium [Moles/Vol] 4.3 mmol/L Normal 3.5-5.1 [facility] Comment on above: Order Comment: 1Y Performed By: #### L 500.2500, L501.4021, L100.0100 #### [facility] [address] [place], [address] Sodium [Moles/Vol] 134 mmol/L Low 136-145 [facility] Comment on above: Order Comment: 1Y Performed By: #### L 500.2500, L501.4021, L100.0100 #### [facility] [address] [place], [address] Urea nitrogen [Mass/Vol] 15 mg/dL Normal 7-18 [facility] Comment on above: Order Comment: 1Y Performed By: #### L 500.2500, L501.4021, L100.0100 #### [facility] [address] [place], [address] Bedside Glucoseon 04-20-2024 FINGERSTICK GLU 233 mg/dL High 74-106 [facility] Comment on above: Result Comment: SHAINA GEMENT OF PATIENT CARE PER NURSING PROTOCOL Performed By: #### L 501.080 #### [facility] [address] [place], [address] FINGERSTICK GLU 300 mg/dL High 74-106 [facility] Comment on above: Result Comment: SHAINA GEMENT OF PATIENT CARE PER NURSING PROTOCOL Performed By: #### L 501.080 #### [facility] [address] [place], [address] CBC W/Diff, Automatedon 11-0 Absolute Lymph 3.12 X10 3/uL Normal 0.83-4.51 [facility] Comment on above: Performed By: #### L 500.2500, L501.4021, L100.0100 #### [facility] [address] [place], [address] Absolute Neut 6.5 X10 3/uL Normal 2.0-7.7 [facility] Comment on above: Performed By: #### L 500.2500, L501.4021, L100.0100 #### [facility] [address] [place], [address] Basophils/100 WBC (Bld) 0.7 % Normal 0-1 [facility] Comment on above: Performed By: #### L 500.2500, L501.4021, L100.0100 #### [facility] [address] [place], [address] Eosinophils/100 WBC (Bld) 1.4 % Normal 0-5 [facility] Comment on above: Performed By: #### L 500.2500, L501.4021, L100.0100 #### [facility] [address] [place], [address] Erythrocyte distribution width (RBC) [Ratio] 14.8 % High 11.6-14.6 [facility] Comment on above: Performed By: #### L 500.2500, L501.4021, L100.0100 #### [facility] [address] [place], [address] Hematocrit (Bld) [Volume fraction] 42.9 % Normal 37-47 [facility] Comment on above: Performed By: #### L 500.2500, L501.4021, L100.0100 #### [facility] [address] [place], [address] Hemoglobin (Bld) [Mass/Vol] 13.8 g/dL Normal 12.0-15.0 [facility] Comment on above: Performed By: #### L 500.2500, L501.4021, L100.0100 #### [facility] [address] [place], [address] IG% 1.200 High 0.0-0.9 [facility] Comment on above: Result Comment: IG% - Immature Granulocytes (promyelocytes, myelocytes and metamyelocytes) > 1% indicates that a LEFT SHIFT is Present. Performed By: #### L 500.2500, L501.4021, L100.0100 #### [facility] [address] [place], [address] Lymphocytes/100 WBC (Bld) 28.3 % Normal 19-41 [facility] Comment on above: Performed By: #### L 500.2500, L501.4021, L100.0100 #### [facility] [address] [place], [address] MCH (RBC) [Entitic mass] 28.1 pg Normal 27.0-32.0 [facility] Comment on above: Performed By: #### L 500.2500, L501.4021, L100.0100 #### [facility] [address] [place], [address] MCHC (RBC) [Mass/Vol] 32.2 g/dL Normal 32-36 [facility] Comment on above: Performed By: #### L 500.2500, L501.4021, L100.0100 #### [facility] [address] [place], [address] MCV (RBC) [Entitic vol] 87.4 fL Normal 81-99 [facility] Comment on above: Performed By: #### L 500.2500, L501.4021, L100.0100 #### [facility] [address] [place], [address] Monocytes/100 WBC (Bld) 9.3 % Normal 0-10 [facility] Comment on above: Performed By: #### L 500.2500, L501.4021, L100.0100 #### [facility] [address] [place], [address] Neutrophils/100 WBC (Bld) 59.1 % Normal 47-70 [facility] Comment on above: Performed By: #### L 500.2500, L501.4021, L100.0100 #### [facility] [address] [place], [address] Nucleated RBC (Bld) [#/Vol] 0 10*3/uL Normal 0-5 [facility] Comment on above: Performed By: #### L 500.2500, L501.4021, L100.0100 #### [facility] [address] [place], [address] Platelet mean volume (Bld) [Entitic vol] 11.6 fL Normal 6.2-12.0 [facility] Comment on above: Performed By: #### L 500.2500, L501.4021, L100.0100 #### [facility] [address] [place], [address] Platelets (Bld) [#/Vol] 308 10*3/uL Normal 150-450 [facility] Comment on above: Performed By: #### L 500.2500, L501.4021, L100.0100 #### [facility] [address] [place], [address] RBC (Bld) [#/Vol] 4.91 10*6/uL Normal 4.2-5.4 [facility] Comment on above: Performed By: #### L 500.2500, L501.4021, L100.0100 #### [facility] [address] [place], [address] RDW SD 47.6 fl High 35.1-43.9 [facility] Comment on above: Performed By: #### L 500.2500, L501.4021, L100.0100 #### [facility] [address] [place], [address] WBC (Bld) [#/Vol] 11.0 10*3/uL Normal 4.4-11.0 [facility] Comment on above: Performed By: #### L 500.2500, L501.4021, L100.0100 #### [facility] [address] [place], [address] CNPNon 04-20-2024 CNPN Normal [facility] Chest 1 View (Portable)on Chest 1 View (Portable) [facility] Imaging Services [address] [place] [address] Chest 1 View (Portable) MR#: [id number] Acct: [id number] Name: ELSA PUGH Rep #: [id number] : 1955 F 69 From: Ever avalos MD PCP: Dr. Redd Linda MD Status: [facility] ER Study: Chest 1 View (Portable) Date of Exam: 04/20/24 Exam# [id number] Ordering Dr: Nura West MD [id number] STUDY: X-RAY CHEST REASON FOR EXAM: Female, 69 years old. Chest pain TECHNIQUE: Single AP portable view of the chest. COMPARISON: Comparison is made with prior study of December 24, 2023. FINDINGS: EKG electrodes are seen. The lungs are clear and expanded. There is no demonstrated pleural abnormality. Sternal cerclage wires and vascular clips are present from a prior sternotomy and coronary artery bypass graft procedure (CABG). A stent is seen within the right coronary artery. Borderline cardiomegaly. Normal mediastinum and cahgo. Normal visualized pulmonary arteries. There is atherosclerotic calcification of the aortic arch with tortuosity. There are diffuse degenerative changes of the visualized thoracic spine. Normal visualized ribs, clavicles, and shoulders. There is no demonstrated abnormality of the visualized soft tissue structures of the upper abdomen. RAD/Chest 1 View (Portable) IMPRESSION: Borderline cardiomegaly. The lungs are clear. Electronically Signed: Ever Ling MD at 8:13 EST , CC: Dr. Nura West MD; Dr. Redd Linda MD County Attorney: Signed Normal [facility] Echo Complete W/ Contraston 04-20-2024 Echo Complete W/ Contrast [facility] Cardiovascular Services [address] [place] [address] Echo Complete W/ Contrast 04/20/24 1429 MR#: [id number] Acct: [id number] Name: ELSA PUGH Rep #: [id number] : 1955 69 From: Laila Simmons MD Attending Dr: Dr. Javier Nash MD Status: ADM MARILYN Ordering Dr: Javier Nash MD Date: 04/20/24 Location: U Sex: F C Admitted: 04/20/24 Reason For Study: CHEST PAIN Procedure This was a 2D Doppler, Color Flow transthoracic echocardiogram. The study was technically difficult. Contrast injection was performed. Exam performed portable in patient room. Left Ventricle Normal size and thickness. The left ventricular ejection fraction is 75 %. Normal diastology for age. Right Ventricle Normal right ventricle. Atria The left and right atria are normal. Hypermobile atrial septum. Mitral Valve Mild mitral annular calcification. Mild focal mitral valve calcification, bileaflet. Trivial mitral valve insufficiency. Aortic Valve Trisinus/trileaflet aortic valve. Trivial aortic valve insufficiency. Pulmonic Valve The pulmonic valve is not well visualized. Great Vessels Normal sized aortic root. Pericardium/Pleural Suspect a small pericardial sac. Recommend CT scan for further evaluation. Medication Diluted definity 2ml given slow IV push to enhance endocardial definition. MMode/2D Measurements Calculations LVIDd: 4.5 cm IVSd: 0.92 cm LVOT diam: 2.0 cm LVIDs: 2.9 cm LVPWd: 0.83 cm LVOT area: 3.1 cm2 FS: 35.7 % Ao root diam: 3.1 cm LAV(MOD-bp): 57.3 ml LVAd ap4: 35.8 cm2 LAV(MOD-bp) Indexed: 28.3 ml/m2 LVLd ap4: 8.9 cm LAV(MOD-sp2): 54.7 ml EDV(MOD-sp4): 120.1 ml LAV(MOD-sp4): 51.7 ml EDV(sp4-el): 122.1 ml LVAs ap4: 16.5 cm2 LVLs ap4: 6.7 cm ESV(MOD-sp4): 33.9 ml ESV(sp4-el): 34.6 ml EF(MOD-sp4): 71.7 % EF(sp4-el): 71.7 % SV(MOD-sp4): 86.1 ml SV(sp4-el): 87.5 ml LA A4 area: 19.6 cm2 SI(MOD-sp4): 42.5 ml/m2 LA dimension(2D): 4.1 cm RA A4 area: 14.1 cm2 Time Measurements MV dec time: 0.31 sec Doppler Measurements Calculations MV E max elzbieta: 76.6 cm/sec Lat Peak E' Elzbieta: 7.8 cm/sec Med Peak E' Elzbieta: 4.5 cm/sec MV A max elzbieta: 89.4 cm/sec E/E' lat: 9.8 E/E' med: 17.0 MV E/A: 0.86 MV V2 max: 107.1 cm/sec Ao V2 max: 236.2 cm/sec MV max P.6 mmHg MV dec slope: 253.0 cm/sec2 Ao max P.4 mmHg MV V2 mean: 42.8 cm/sec Ao V2 mean: 147.8 cm/sec MV mean P.1 mmHg Ao mean P.3 mmHg MV V2 VTI: 46.0 cm Ao V2 VTI: 57.3 cm AV (velocity ratio): 0.82 MVA(VTI): 3.2 cm2 ROBERT(I,D): 2.6 cm2 ROBERT(V,D): 2.3 cm2 LV V1 max: 169.8 cm/sec SV(LVOT): 147.3 ml PA V2 max: 121.7 cm/sec LV V1 max P.5 mmHg PA V2 mean: 90.3 cm/sec LV V1 mean P.8 mmHg LV V1 mean: 101.9 cm/sec LV V1 VTI: 47.0 cm ECHO/Echo Complete W/ Contrast Interpretation Summary The left ventricular ejection fraction is 75 %. Mild mitral annular calcification. Mild focal mitral valve calcification, bileaflet. Hypermobile atrial septum. Suspect a small pericardial sac. Recommend CT scan for further evaluation. Ordering Physician: Javier Nash Referring Physician: REDD LINDA Performed By: Inez Kearns RCS 04/20/24 1532 Date Laila Simmons MD CC: Dr. Redd Linda MD; Dr. Javier Nash MD Date Dictated: 04/20/24 1429 Date Transcribed: 04/20/24 1532 County Attorney: Signed Normal [facility] Emergency Department Summary on 04-20-2024 Emergency Department Summary [facility] Medical Records Department [address] [place] [address] Emergency Department Summary 04/20/24 MR#: [id number] Acct: [id number] Name: ELSA PUGH Rep #: [id number] : 1955 69 From: Nura West MD PCP: Dr. Redd Linda MD Status:REG ER Location: ED HPI History of Present Illness Chief Complaint: Chest Pain Informant: patient Onset/Context/Timing Onset: Today and Hours (1-1.5) Activity at onset: gradual and onset Timing: Continuous Quality: Positive for Pain and Pressure Location: Right Parasternal (With radiation to right upper extremity and neck/jaw) Current Severity: 6/10 Maximum Severity: 10/10 Worsened By: Nothing Relieved By: NTG Associated Symptoms: Positive for Diaphoresis and Dyspnea; Negative for Nausea, Vomiting, Cough, Fever, Lightheadedness or Palpitations Narrative Narrative: 69-year-old female with a history of extensive coronary artery disease presenting with chest discomfort that started this morning, she was already up and getting around for work, when the discomfort started. Started as pressure, severe. Has history of dyspnea with exertion and with conversation she states that basically was no different but she did feel dyspneic a little. No palpitations or lightheadedness/syncope. She states she took 1 nitroglycerin and the pain let up quite a bit but did not go away, it started to worsen a little and she took another nitroglycerin and it did not help a lot but her pain has stayed a 5-6. This is similar discomfort that she had when she needed stents 1 year ago, but they were in her bypass vessels and so she needed to be sent to [facility] for that. [facility] Medical History COVID Concussion Hiatal hernia Wears glasses Post-menopausal Alcohol use Ambulates with cane Diabetes Arthritis Rheumatoid arthritis High cholesterol Anemia Acute kidney failure Restless legs Back pain Injury of back Migraine headache Injury of head and neck Blackout Difficulty swallowing Difficulty chewing History of diverticulitis Gastric reflux Former smoker CPAP (continuous positive airway pressure) dependence Sleep apnea Shortness of breath on exertion History of echocardiogram History of stress test Cardiology follow-up encounter History of heart attack History of irregular heartbeat Chest pain Imbalance Headache Epigastric pain Lymphedema Restless legs syndrome (RLS) Anxiety and depression Iron deficiency anemia Proliferative diabetic retinopathy Peripheral neuropathy Obesity Hyperhomocystinemia Narcolepsy GERD (gastroesophageal reflux disease) Atherosclerotic heart disease of [place] coronary artery without angina pectoris Atherosclerosis of coronary artery 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 Essential hypertension Hyperlipidemia Obstructive sleep apnea Type 2 diabetes mellitus Home Medications ???Medication ???Instructions ???Recorded ???Last Taken ???Type ascorbate calcium (vitamin C) 500 500 mg PO DAILY 10/26/21 04/19/24 History mg tablet red yeast rice 600 mg capsule 600 mg PO DAILY 10/26/21 04/20/24 History pregabalin 150 mg capsule 150 mg PO BID 02/27/22 04/19/24 History cholecalciferol (vitamin D3) 25 25 mcg PO DAILY 06/04/22 04/19/24 History mcg (1,000 unit) capsule metformin 500 mg tablet 1,000 mg PO BID 01/21/23 04/20/24 History aspirin 81 mg tablet,delayed 81 mg PO DAILY 05/18/23 04/20/24 History release (Adult Aspirin Regimen) citalopram 40 mg tablet 40 mg PO DAILY 05/18/23 04/20/24 History Handicap Placard #1 ea 06/05/23 Unknown Rx albuterol sulfate 90 mcg/actuation 1 puff inhalation Q6H PRN 07/24/23 04/15/24 Rx aerosol inhaler shortness of breath or wheezing #6.7 grams magnesium 250 mg tablet 250 mg PO BID 09/03/23 04/19/24 History clopidogrel 75 mg tablet 75 mg PO .COMPLEX #90 tabs 12/10/23 04/20/24 Rx fenofibrate nanocrystallized 145 145 mg PO DAILY #90 tabs 12/10/23 04/20/24 Rx mg tablet furosemide 40 mg tablet 40 mg PO .COMPLEX #30 tabs 12/10/23 Unknown Rx isosorbide mononitrate 30 mg 30 mg PO DAILY #90 tabs 12/10/23 04/20/24 Rx tablet,extended release 24 hr isosorbide mononitrate 60 mg 60 mg PO DAILY #90 tabs 12/10/23 04/20/24 Rx tablet,extended release 24 hr metoprolol succinate 25 mg 12.5 mg (1/2 x 25 mg) PO DAILY #45 12/10/23 04/20/24 Rx tablet,extended release 24 hr tabs nitroglycerin 0.4 mg sublingual 0.4 mg sublingual Q5-15M PRN chest 12/10/23 04/20/24 Rx tablet pain #25 tabs pantoprazole 40 mg tablet,delayed 40 mg PO BID #180 tabs 12/10/23 04/20/24 Rx release ranolazine 1,000 mg 1,000 mg PO BID #180 tabs 12/10/23 04/20/24 Rx tablet,extended release,12 hr prednisone 10 mg tablet 10 mg PO DAILY 04/20/24 04/20/24 History (more content not included)... Normal [facility] H AND P Exam - [facility] 04-20-2024 [facility] [address] [place] [address] H P Exam - Hospitalist 04/20/24 1116 MR#: [id number] Acct: [id number] Name: ELSA PUGH Rep #: [id number] : 1955 69 From: Javier Nash MD PCP: Dr. Redd Linda MD Status:ADM MARILYN Location: [place] [address] HPI - General General Date of Admission: 04/20/24 Date of Service: 04/20/24 Chief Complaint: Chest pain HPI Narrative ELSA PUGH, is a 69 F who presents chest pain. Patient has significant past cardiac history including CABG and subsequent stent placement, essential hypertension, dyslipidemia who presented with chest pain. Patient symptoms started on the morning of her admission pain was described as sharp pain located in the retrosternal region radiating to her back as well as her jaw. Given her previous history she presented to the emergency department. Initial set of cardiac enzymes came back negative admitted to a monitored bed for further eval. [facility] Medical History COVID Concussion Hiatal hernia Wears glasses Post-menopausal Alcohol use Ambulates with cane Diabetes Arthritis Rheumatoid arthritis High cholesterol Anemia Acute kidney failure Restless legs Back pain Injury of back Migraine headache Injury of head and neck Blackout Difficulty swallowing Difficulty chewing History of diverticulitis Gastric reflux Former smoker CPAP (continuous positive airway pressure) dependence Sleep apnea Shortness of breath on exertion History of echocardiogram History of stress test Cardiology follow-up encounter History of heart attack History of irregular heartbeat Chest pain Imbalance Headache Epigastric pain Lymphedema Restless legs syndrome (RLS) Anxiety and depression Iron deficiency anemia Proliferative diabetic retinopathy Peripheral neuropathy Obesity Hyperhomocystinemia Narcolepsy GERD (gastroesophageal reflux disease) Atherosclerotic heart disease of [place] coronary artery without angina pectoris Atherosclerosis of coronary artery 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 Essential hypertension Hyperlipidemia Obstructive sleep apnea Type 2 diabetes mellitus Home Medications ???Medication ???Instructions ???Recorded ???Last Taken ???Type ascorbate calcium (vitamin C) 500 500 mg PO DAILY 10/26/21 04/19/24 History mg tablet red yeast rice 600 mg capsule 600 mg PO DAILY 10/26/21 04/20/24 History pregabalin 150 mg capsule 150 mg PO BID 02/27/22 04/19/24 History cholecalciferol (vitamin D3) 25 25 mcg PO DAILY 06/04/22 04/19/24 History mcg (1,000 unit) capsule metformin 500 mg tablet 1,000 mg PO BID 01/21/23 04/20/24 History aspirin 81 mg tablet,delayed 81 mg PO DAILY 05/18/23 04/20/24 History release (Adult Aspirin Regimen) citalopram 40 mg tablet 40 mg PO DAILY 05/18/23 04/20/24 History Handicap Placard #1 ea 06/05/23 Unknown Rx albuterol sulfate 90 mcg/actuation 1 puff inhalation Q6H PRN 07/24/23 04/15/24 Rx aerosol inhaler shortness of breath or wheezing #6.7 grams magnesium 250 mg tablet 250 mg PO BID 09/03/23 04/19/24 History clopidogrel 75 mg tablet 75 mg PO .COMPLEX #90 tabs 12/10/23 04/20/24 Rx fenofibrate nanocrystallized 145 145 mg PO DAILY #90 tabs 12/10/23 04/20/24 Rx mg tablet furosemide 40 mg tablet 40 mg PO .COMPLEX #30 tabs 12/10/23 Unknown Rx isosorbide mononitrate 30 mg 30 mg PO DAILY #90 tabs 12/10/23 04/20/24 Rx tablet,extended release 24 hr isosorbide mononitrate 60 mg 60 mg PO DAILY #90 tabs 12/10/23 04/20/24 Rx tablet,extended release 24 hr metoprolol succinate 25 mg 12.5 mg (1/2 x 25 mg) PO DAILY #45 12/10/23 04/20/24 Rx tablet,extended release 24 hr tabs nitroglycerin 0.4 mg sublingual 0.4 mg sublingual Q5-15M PRN chest 12/10/23 04/20/24 Rx tablet pain #25 tabs pantoprazole 40 mg tablet,delayed 40 mg PO BID #180 tabs 12/10/23 04/20/24 Rx release ranolazine 1,000 mg 1,000 mg PO BID #180 tabs 12/10/23 04/20/24 Rx tablet,extended release,12 hr prednisone 10 mg tablet 10 mg PO DAILY 04/20/24 04/20/24 History Allergy/AdvReac Type Severity Reaction Status Date / Time aspirin Allergy Rash Verified 04/20/24 07:40 banana Allergy Hives Verified 04/20/24 07:40 canagliflozin (From Invokana) Allergy Anaphylaxis Verified 04/20/24 07:40 kiwi Allergy Hives Verified 04/20/24 07:40 niacin Allergy Rash Verified 04/20/24 07:40 Penicillins (PCN) Allergy Hives Verified 04/20/24 07:40 Sulfa (Sulfonamide Allergy Hives Verified 04/20/24 07:40 Antibiotics) ticagrelor AdvReac Severe Severe Verified 04/20/24 07:40 nausea and vomiting doxycycline AdvReac Nausea/Vom/ Verified 04/20/24 07:40 Diarrhea erythromycin base (From AdvReac Other Verified 04/20/24 07:40 Statici (more content not included)... Normal [facility] L501.4020on 04-20-2024 TROPONIN-I HS 7 pg/mL Normal 3.0-54.0 [facility] Comment on above: Order Comment: Comme nts: SPECIMEN #3 'TROP' Serial specimen #1, #2 or #3: 3 Result Comment: Plebasia se Note: New Test Units and Gender Specific Reference Ranges. For more information see Policy Stat Procedure [place] High Sensitivity Troponin (TNIH) and attachments. Performed By: #### L 501.4020 #### [facility] [address] [place], [address] TROPONIN-I HS 8 pg/mL Normal 3.0-54.0 [facility] Comment on above: Result Comment: Plebasia se Note: New Test Units and Gender Specific Reference Ranges. For more information see Policy Stat Procedure [place] High Sensitivity Troponin (TNIH) and attachments. Performed By: #### L 501.4020 #### [facility] [address] [place], [address] L501.5425on 04-20-2024 TROPONIN-I HS 8 pg/mL Normal 3.0-54.0 [facility] Comment on above: Order Comment: 1Y Result Comment: Plea se Note: New Test Units and Gender Specific Reference Ranges. For more information see Policy Stat Procedure [place] High Sensitivity Troponin (TNIH) and attachments. Performed By: #### L 500.2500, L501.4021, L100.0100 #### [facility] [place], [address] CNOVon 04-08-2024 CNOV Normal [facility] COVID AND INFLUENZA A/B AND RSV PCR, ROUTINEon 04-08-2024 SARS-CoV-2 (COVID-19) RNA NIEVES+probe Ql (Unsp spec) SARS-COV-2 (AGENT OF COVID-19) RNA: Not detected INFLUENZA A RNA: Not detected INFLUENZA B RNA: Not detected RESPIRATORY SYNCYTIAL VIRUS (RSV) RNA: Not detected Normal [facility] Comment on above: Performed By: #### C VFLRS ####[facility] LABCLIA [id number] [address] [place] XR CHEST 2V FRONTAL/LATon XR CHEST 2V FRONTAL/LAT Normal [facility] XR Chest PA and Lateralon IMPRESSION: No acute radiographic abnormality in the lungs. Borderline cardiomegaly. County Attorney: [place] Transcribe Date/Time: Apr 08 2024 8:19A Dictated by : JEFFRY TAPIA MD This examination was interpreted and the report reviewed and electronically signed by: JEFFRY TAPIA MD on Apr 08 2024 8:21AM [facility] DIVISION OF RADIOLOGY * * *Final Report* * * DATE OF EXAM: Apr 08 2024 8:17AM WOX [id number] - XR CHEST 2V FRONTAL/LAT / PROCEDURE REASON: Viral bronchitis * * * * Physician Interpretation * * * * EXAMINATION: CHEST RADIOGRAPH (2 VIEW FRONTAL & LATERAL) CLINICAL HISTORY: Viral bronchitis MQ: XC2_6 EXAM DATE/TIME: 04/08/2024 8:17 AM COMPARISON: Chest x-ray on 06/05/2023 RESULT: Lines, tubes, and devices: None. Lungs and pleura: No consolidation. No lung mass. No pleural effusion. No pneumothorax. Cardiomediastinal silhouette: There is borderline cardiomegaly. A coronary stent in place. Bones and soft tissues: Status post median sternotomy and CABG. DIVISION OF RADIOLOGY Provider, Bev carmichael [place] - 04/08/2024 * * *Final Report* * * DATE OF EXAM: Apr 08 2024 8:17AM WOX [id number] - XR CHEST 2V FRONTAL/LAT / PROCEDURE REASON: Viral bronchitis * * * * Physician Interpretation * * * * EXAMINATION: CHEST RADIOGRAPH (2 VIEW FRONTAL & LATERAL) CLINICAL HISTORY: Viral bronchitis MQ: XC2_6 EXAM DATE/TIME: 04/08/2024 8:17 AM COMPARISON: Chest x-ray on 06/05/2023 RESULT: Lines, tubes, and devices: None. Lungs and pleura: No consolidation. No lung mass. No pleural effusion. No pneumothorax. Cardiomediastinal silhouette: There is borderline cardiomegaly. A coronary stent in place. Bones and soft tissues: Status post median sternotomy and CABG. IMPRESSION IMPRESSION: No acute radiographic abnormality in the lungs. Borderline cardiomegaly. County Attorney[facility] Transcribe Date/Time: Apr 08 2024 8:19A Dictated by : JEFFRY TAPIA MD This examination was interpreted and the report reviewed and electronically signed by: JEFFRY TAPIA MD on Apr 08 2024 8:21AM EST [facility] Radiology Study observation (narrative) [facility] XR Chest PA and LateralOrder ed By: [facility] Provider on 04-08-2024 [facility] CNPNon 03-12-2024 CNPN Normal [facility] BACTERIAL VAGINOSIS NAATon 0 03-11-2024 Lactobacillus crispatus+gasseri+brooke senii + Gardnerella vaginalis + Atopobium vaginae rRNA NIEVES+probe Ql (Vag fld) Negative Normal Negative for bacterial vaginosis [facility] Comment on above: Order Comment: Speci men Type: SWABOrdering Facility: [facility] Address: [address] [place] [address] Performed By: #### B VAMP, CVTV ####[facility] LABCLIA [id number] [facility] [place] [address] [place] HARPREET/TRICHOMONAS NAATon 0 03-11-2024 C. glabrata RNA NIEVES+probe Ql (Vag fld) Negative Normal Negative for Harpreet glabrata [facility] Comment on above: Order Comment: Speci men Type: SWABOrdering Facility: [facility] Address: [address] [place] [address] Performed By: #### B VAMP, CVTV ####[facility] LABCLIA [id number] [place] [address] [place] Harpreet sp DNA NIEVES+probe Ql (Vag fld) Negative Normal Negative for Harpreet species [facility] Comment on above: Order Comment: Speci men Type: SWABOrdering Facility: [facility] Address: [address] [place] [address] Performed By: #### B VAMP, CVTV ####[facility] LABCLIA [id number] [place] [address] [place] T. vaginalis DNA NIEVES+probe Ql (Unsp spec) Negative Normal Negative for Trichomonas vaginalis by amplification [facility] Comment on above: Order Comment: Speci men Type: SWABOrdering Facility: [facility] Address: [address] [place] [address] Performed By: #### B VAMP, CVTV ####[facility] LABCLIA [id number] [place] [address] [place] CNOVon 03-11-2024 CNOV Normal [facility] CNPNon 03-09-2024 CNPN Normal [facility] CNOVon 02-25-2024 CNOV Normal [facility] CNPNon 02-20-2024 CNPN Normal [facility] CBC panel Auto (Bld)on 02-18 Erythrocyte distribution width (RBC) [Ratio] 14.1 % Normal 11.5-15.0 [facility] Comment on above: Order Comment: Speci men Type: BLOOD SPECIMENOrdering Facility: [facility] Address: [address] [place] [address] Performed By: #### 5 8410-2 ####[facility] LABCLIA [id number] [place] [address] [place] Hematocrit (Bld) [Volume fraction] 39.4 % Normal 36.0-46.0 [facility] Comment on above: Order Comment: Speci men Type: BLOOD SPECIMENOrdering Facility: [facility] Address: [address] [place] [address] Performed By: #### 5 8410-2 ####[facility] [id number] [place] [address] [place] Hemoglobin (Bld) [Mass/Vol] 12.3 g/dL Normal 11.5-15.5 [facility] Comment on above: Order Comment: Speci men Type: BLOOD SPECIMENOrdering Facility: [facility] Address: [address] [place] [address] Performed By: #### 5 8410-2 ####[facility] [id number] [place] [address] [place] MCH (RBC) [Entitic mass] 28.3 pg Normal 26.0-34.0 [facility] Comment on above: Order Comment: Speci men Type: BLOOD SPECIMENOrdering Facility: [facility] Address: [address] [place] [address] Performed By: #### 5 8410-2 ####[facility] [id number] [place] [address] [place] MCHC (RBC) [Mass/Vol] 31.2 g/dL Normal 30.5-36.0 [facility] Comment on above: Order Comment: Speci men Type: BLOOD SPECIMENOrdering Facility: [facility] Address: [address] [place] [address] Performed By: #### 5 8410-2 ####[facility] [id number] [place] [address] [place] MCV (RBC) [Entitic vol] 90.8 fL Normal 80.0-100.0 [facility] Comment on above: Order Comment: Speci men Type: BLOOD SPECIMENOrdering Facility: [facility] Address: [address] [place] [address] Performed By: #### 5 8410-2 ####[facility] LABIA [id number] [place] [address] [place] Nucleated RBC (Bld) [#/Vol] 10*3/uL Normal <0.01 [facility] Comment on above: Order Comment: Speci men Type: BLOOD SPECIMENOrdering Facility: [facility] Address: [address] [place] [address] Performed By: #### 5 8410-2 ####[facility] LABIA [id number] [place] [address] [place] Platelet mean volume (Bld) [Entitic vol] 11.4 fL Normal 9.0-12.7 [facility] Comment on above: Order Comment: Speci men Type: BLOOD SPECIMENOrdering Facility: [facility] Address: [address] [place] [address] Performed By: #### 5 8410-2 ####[facility] LABIA [id number] [place] [address] [place] Platelets (Bld) [#/Vol] 332 10*3/uL Normal 150-400 [facility] Comment on above: Order Comment: Speci men Type: BLOOD SPECIMENOrdering Facility: [facility] Address: [address] [place] [address] Performed By: #### 5 8410-2 ####[facility] LABIA [id number] [place] [address] [place] RBC (Bld) [#/Vol] 4.34 10*6/uL Normal 3.90-5.20 [facility] Comment on above: Order Comment: Speci men Type: BLOOD SPECIMENOrdering Facility: [facility] Address: [address] [place] [address] Performed By: #### 5 8410-2 ####[facility] LABCLIA [id number] [place] [address] [place] WBC (Bld) [#/Vol] 7.68 10*3/uL Normal 3.70-11.00 [facility] Comment on above: Order Comment: Speci men Type: BLOOD SPECIMENOrdering Facility: [facility] Address: [address] [place] [address] Performed By: #### 5 8410-2 ####[facility] LABCLIA [id number] [place] [address] [place] CNOVon 02-19-2024 CNOV Normal [facility] CNPNon 02-19-2024 CNPN Normal [facility] Ferritin SerPl-mCncon 2023 Ferritin [Mass/Vol] 157.0 ng/mL Normal 14.7-205.1 [facility] Comment on above: Order Comment: Speci men Type: BLOOD SPECIMENOrdering Facility: [facility] Address: [address] [place] [address] Performed By: #### 5 0190-8, 6-4 ####[facility] LABIA [id number] [place] [address] [place] Iron and Iron binding capaci ty panelon 02-19-2024 Iron [Mass/Vol] 51 ug/dL Normal 41-186 [facility] Comment on above: Order Comment: Speci men Type: BLOOD SPECIMENOrdering Facility: [facility] Address: [address] [place] [address] Performed By: #### 5 0190-8, 6-4 ####[facility] LABCLIA [id number] [place] [address] [place] Iron binding capacity [Mass/Vol] 418 ug/dL High 232-386 [facility] Comment on above: Order Comment: Speci men Type: BLOOD SPECIMENOrdering Facility: [facility] Address: [address] [place] [address] Performed By: #### 5 0190-8, 2276-4 ####[facility] LABCLIA [id number] [place] [address] [place] Iron/TIBC [Molar ratio] 12.2 % Low 15.0-57.0 [facility] Comment on above: Order Comment: Speci men Type: BLOOD SPECIMENOrdering Facility: [facility] Address: [address] [place] [address] Performed By: #### 5 0190-8, 2276-4 ####[facility] LABCLIA [id number] [place] [address] [place] CNPNon 02-18-2024 CNPN Normal [facility] Bacteria Ur Culton Bacteria identified Cx Nom (U) ORGANISM ID: 1 <10,000 CFU/ml Normal urogenital manuel Normal [facility] Comment on above: Performed By: #### 6 30-4 ####[facility] LABCLIA [id number] [place] [address] [place] CNOVon 02-17-2024 CNOV Normal [facility] UA DIP, URINE (POC)on 2023 BILIRUBIN UA (POCT) Small Abnormal Negative [place] [facility] CLARITY UA (POCT) [facility] COLOR UA (POCT) Yellow [facility] GLUCOSE UA (POCT) >=1000 Abnormal Negative mg/dL [facility] Hemoglobin Ql (U) Negative Negative [facility] Interpretation and review of laboratory results Abnormal [facility] KETONE UA (POCT) 15 mg/dL Abnormal [facility] LEUK[facility] (POCT) Trace Abnormal Negative [facility] NITRITE UA (POCT) Negative Negative [facility] PH UA (POCT) 5.0 4.5 - 8.0 [facility] Protein Ql (U) Negative Negative mg/dL [facility] SPECIFIC GRAVITY UA (POCT) >=1.030 1.005 - 1.030 [facility] UROBILINOGEN UA (POCT) 0.2 Normal E.U./dL [facility] Location:[facility], [address] [place] [address], [place], [place], [id number] [place] [address] POINT OF CARE [facility] CNPNon 02-13-2024 CNPN Normal [facility] CPAP REPORTon 02-12-2024 Sample Body Builder PDF report received from [facility] and attached via OnBase [facility] PDF report received from [facility] and attached via [employer] OTHER CNPNon 02-04-2024 CNPN Normal [facility] MG Breast Screeningon 2023 IMPRESSION: BENIGN FINDING There is no mammographic evidence of malignancy. A 1 year screening mammogram is recommended. Anay aPrrish M.D., jr/anna:12/18/2023 13:07:00 Field Operations Manager(s): RT Rosalba(R)(M), [facility] [place] letter sent: Normal over 40 Mammogram BI-RADS: 2 Benign finding Multiple national specialty organizations have released breast cancer screening guidelines for women at average risk for developing breast cancer - guidelines that are based on both evidence and opinion, yet differ on when to start and how often to screen for breast cancer. With representation from Breast Imaging, Internal Medicine, Women's Health, Family Medicine, and Medical/Surgical Oncology, the [facility] has carefully reviewed the data and reached the following consensus: 1) All women should engage in shared decision-making with their providers to decide when to start and how often to screen; 2) All women should have the opportunity to start screening mammography at age 40; 3) For women ages 45-55, we recommend annual screening mammograms; 4) For women ages 55 and over, we support both the transition from an annual to a biennial interval if this aligns more with patient's values and preferences, or continuation with annual screening; 5) All women should discuss with their providers when to stop screening mammograms. County Attorney: [place] Transcribe Date/Time: Dec 18 2023 10:02A Dictated by: ANAY PARRISH MD This examination was interpreted and the report reviewed and electronically signed by: ANAY PARRISH MD on Dec 18 2023 1:07PM [facility] DIVISION OF RADIOLOGY * * *Final Report* * * DATE OF EXAM: Dec 18 2023 10:25AM [facility] [id number] - [facility] SCREENING / PROCEDURE REASON: Encounter for screening mammogram for breast cancer * * * * Physician Interpretation * * * * RESULT: #[id number] - PAULINA SCREENING BILATERAL DIGITAL SCREENING MAMMOGRAM WITH CAD: 12/18/2023 HISTORY: Encounter For Screening Mammogram For Breast Cancer /Screening Mammogram - patient reports NO breast symptoms /priors available for comparison. RESULT: TECHNIQUE: The study was acquired using full field digital technology and interpreted from soft copy. Current study was also evaluated with a Computer Aided Detection (CAD). Comparison is made to exams dated: 12/12/2022 mammogram - [facility] and 12/16/2020 mammogram. The breasts are almost entirely fatty. There are benign calcifications in both breasts. No significant masses, calcifications, or other findings are seen in either breast. There has been no significant interval change. DIVISION OF RADIOLOGY Provider, [facility] - 12/18/2023 * * *Final Report* * * DATE OF EXAM: Dec 18 2023 10:25AM [facility] 0581 - [facility] SCREENING / PROCEDURE REASON: Encounter for screening mammogram for breast cancer * * * * Physician Interpretation * * * * RESULT: #[id number] - PAULINA SCREENING BILATERAL DIGITAL SCREENING MAMMOGRAM WITH CAD: 12/18/2023 HISTORY: Encounter For Screening Mammogram For Breast Cancer /Screening Mammogram - patient reports NO breast symptoms /priors available for comparison. RESULT: TECHNIQUE: The study was acquired using full field digital technology and interpreted from soft copy. Current study was also evaluated with a Computer Aided Detection (CAD). Comparison is made to exams dated: 12/12/2022 mammogram - [facility] and 12/16/2020 mammogram. The breasts are almost entirely fatty. There are benign calcifications in both breasts. No significant masses, calcifications, or other findings are seen in either breast. There has been no significant interval change. IMPRESSION IMPRESSION: BENIGN FINDING There is no mammographic evidence of malignancy. A 1 year screening mammogram is recommended. Anay Parrish M.D., jr/anna:12/18/2023 13:07:00 Field Operations Manager(s): RT Rosalba(R)(M), [facility] letter sent: Normal over 40 Mammogram BI-RADS: 2 Benign finding Multiple national specialty organizations have released breast cancer screening guidelines for women at average risk for developing breast cancer - guidelines that are based on both evidence and opinion, yet differ on when to start and how often to screen for breast cancer. With representation from Breast Imaging, Internal Medicine, Women's Health, Family Medicine, and Medical/Surgical Oncology, the [facility] has carefully reviewed the data and reached the following consensus: 1) All women should engage in shared decision-making with their providers to decide when to start and how often to screen; 2) All women should have the opportunity to start screening mammography at age 40; 3) For women ages 45-55, we recommend annual screening mammograms; 4) For women ages 55 and over, we support both the transition from an annual to a biennial interval if this aligns more with patient's values and preferences, or continuation with annual screening; 5) All women should discuss with their providers when to stop screening mammograms. County Attorney: [place] Transcribe Date/Time: Dec 18 2023 10:02A Dictated by: ANAY PARRISH MD This examination was interpreted and the report reviewed and electronically signed by: ANAY PARRISH MD on Dec 18 2023 1:07PM EST [facility] Radiology Study observation (narrative) [facility] MG Breast ScreeningOrdered B y: [facility] Provider on 12-18-2023 [facility] FERRITINon 11-02-2023 Ferritin [Mass/Vol] 122.0 ng/mL 14.7 - 2 05.1 ng/mL [facility] FOLATE, SERUMon 11-02-2023 Folate [Mass/Vol] 10.0 ng/mL 4.7 - PINF ng/mL [facility] Iron and Iron binding capaci ty panelon 11-02-2023 Interpretation and review of laboratory results Abnormal [facility] Iron [Mass/Vol] 67 ug/dL 41 - 186 ug/dL [facility] Iron binding capacity [Mass/Vol] 393 ug/dL High 232 - 386 ug/dL [facility] Iron/TIBC [Molar ratio] 17.0 % 15.0 - 57.0 % [facility] No Panel Informationon 11-01 Interpretation and review of laboratory results Normal [facility] VITAMIN B12on 11-02-2023 Cobalamin (Vitamin B12) [Mass/Vol] 784 pg/mL 232 - 1245 pg/mL [facility] CBC W Auto Differential pane l (Bld)on 10-30-2023 Basophils (Bld) [#/Vol] [facility] Basophils/100 WBC (Bld) 0.3 % [facility] Differential cell count method Nom (Bld) Auto [facility] Eosinophils (Bld) [#/Vol] 0.09 10*3/uL [facility] Eosinophils/100 WBC (Bld) 1.4 % [facility] Erythrocyte distribution width (RBC) [Ratio] 14.7 % 11.5 - 15.0 % [facility] Hematocrit (Bld) [Volume fraction] 34.3 % Low 36.0 - 46.0 % [facility] Hemoglobin (Bld) [Mass/Vol] 10.7 g/dL Low 11.5 - 15.5 g/dL [facility] Immature granulocytes (Bld) [#/Vol] 0.03 10*3/uL [facility] Immature granulocytes/100 WBC (Bld) 0.5 % [facility] Interpretation and review of laboratory results Abnormal [facility] Lymphocytes (Bld) [#/Vol] 2.00 10*3/uL [facility] Lymphocytes/100 WBC (Bld) 30.7 % [facility] MCH (RBC) [Entitic mass] 28.2 pg 26.0 - 34.0 pg [facility] MCHC (RBC) [Mass/Vol] 31.2 g/dL 30.5 - 36.0 g/dL [facility] MCV (RBC) [Entitic vol] 90.5 fL 80.0 - 100.0 fL [facility] Monocytes (Bld) [#/Vol] 0.75 10*3/uL [facility] Monocytes/100 WBC (Bld) 11.5 % [facility] Neutrophils (Bld) [#/Vol] 3.62 10*3/uL [facility] Neutrophils/100 WBC (Bld) 55.6 % [facility] Nucleated RBC (Bld) [#/Vol] [facility] Nucleated RBC/100 WBC (Bld) [Ratio] 0.0 % /100 WBC [facility] Platelet mean volume (Bld) [Entitic vol] 11.7 fL 9.0 - 12.7 fL [facility] Platelets (Bld) [#/Vol] 279 10*3/uL [facility] RBC (Bld) [#/Vol] 3.79 10*6/uL Low 3.90 - 5.2 0 m/uL [facility] WBC (Bld) [#/Vol] 6.51 10*3/uL [facility] Comprehensive metabolic 2000 panelon 10-30-2023 Albumin [Mass/Vol] 4.2 g/dL 3.9 - 4.9 g/dL Cl [facility] ALP [Catalytic activity/Vol] 38 U/L 34 - 123 U/L [facility] ALT [Catalytic activity/Vol] 14 U/L 7 - 38 U/L [facility] Anion gap [Moles/Vol] 9 mmol/L 9 - 18 mmol/L [facility] AST [Catalytic activity/Vol] 19 U/L 13 - 35 U/L [facility] Bilirubin [Mass/Vol] 0.3 mg/dL 0.2 - 1 .3 mg/dL [facility] Calcium [Mass/Vol] 9.5 mg/dL 8.5 - 10. 2 mg/dL [facility] Chloride [Moles/Vol] 103 mmol/L 97 - 10 5 mmol/L [facility] CO2 [Moles/Vol] 27 mmol/L 22 - 30 mmol/L [facility] Creatinine [Mass/Vol] 1.11 mg/dL High 0.58 - 0.96 mg/dL [facility] GFR/1.73 sq M.predicted among non-blacks MDRD (S/P/Bld) [Vol rate/Area] 54 mL/min/{1.73_m2} Low - PINF [facility] Comment on above: Estimated Glomerular Filtration Rate (eGFR) is calculated using the 2020 CKD-EPI creatinine equation. This equation utilizes serum creatinine, sex, and age as parameters. The creatinine assay has traceable calibration to isotope dilution-mass spectrometry. Refer to KDIGO guidelines for clinical interpretation. In patients with unstable renal function, e.g. those with acute kidney injury, the eGFR may not accurately reflect actual GFR. Glucose [Mass/Vol] 184 mg/dL High 74 - 99 mg/dL [facility] Comment on above: The [place] Diabete s Association (ADA) provides guidance for cutoff values for fasting glucose and random glucose. The ADA defines fasting as no caloric intake for at least 8 hours. Fasting plasma glucose results between 100 to 125 mg/dL indicate increased risk for diabetes (prediabetes). Fasting plasma glucose results greater than or equal to 126 mg/dL meet the criteria for diagnosis of diabetes. In the absence of unequivocal hyperglycemia, results should be confirmed by repeat testing. In a patient with classic symptoms of hyperglycemia or hyperglycemic crisis, random plasma glucose results greater than or equal to 200 mg/dL meet the criteria for diagnosis of diabetes. Reference: Standards of Medical Care in Diabetes 2016, [place] [employer] Association. Diabetes Care. 2016.39(Suppl 1). Interpretation and review of laboratory results Abnormal [facility] Potassium [Moles/Vol] 4.5 mmol/L 3.7 - 5.1 mmol/L [facility] Protein [Mass/Vol] 6.6 g/dL 6.3 - 8.0 g/dL [facility] Sodium [Moles/Vol] 139 mmol/L 136 - 144 mmol/L [facility] Urea nitrogen [Mass/Vol] 18 mg/dL 7 - 21 mg/dL [facility] HbA1c (Bld)on 10-30-2023 Average glucose Estimated from glycated hemoglobin (Bld) [Mass/Vol] 163 mg/dL [facility] Comment on above: eAG: (Estimated aver age glucose) is a calculated value from HgbA1c and is residential sales representative of the average blood glucose level in the last 2-3 month period. HbA1c (Bld) [Mass fraction] 7.3 % High 4.3 - 5.6 % [facility] Comment on above: [place] Diabetes As sociation guidelines indicate that patients with HgbA1c in the range 5.7-6.4% are at increased risk for development of diabetes, and intervention by lifestyle modification may be beneficial. HgbA1c greater or equal to 6.5% is considered diagnostic of diabetes. Interpretation and review of laboratory results Abnormal [facility] XR Knee - right 4 Viewson IMPRESSION: No acute osseous abnormality County Attorney: LESLIE Transcribe Date/Time: Oct 10 2023 5:09P Dictated by : CINTHIA TATUM MD This examination was interpreted and the report reviewed and electronically signed by: CINTHIA TATUM MD on Oct 10 2023 5:10PM [facility] DIVISION OF RADIOLOGY * * *Final Report* * * DATE OF EXAM: Oct 07 2023 3:57PM WOX 5203 - XR KNEE 4V AP/PA BOTH+LAT/VIET RT / PROCEDURE REASON: multiple diagnoses * * * * Physician Interpretation * * * * EXAMINATION: XR KNEE 4V AP/PA BOTH+LAT/VIET RT CLINICAL HISTORY: Right knee pain and swelling Technique: XR KNEE 4V AP/PA BOTH+LAT/VIET RT -- RIGHT with 4 views on 4 images Comparison: None RESULT: No acute fracture or dislocation. Mild lateral compartment joint space narrowing. Vascular calcifications are noted. DIVISION OF RADIOLOGY Provider, [facility] - 10/10/2023 * * *Final Report* * * DATE OF EXAM: Oct 07 2023 3:57PM WOX 5203 - XR KNEE 4V AP/PA BOTH+LAT/VIET RT / PROCEDURE REASON: multiple diagnoses * * * * Physician Interpretation * * * * EXAMINATION: XR KNEE 4V AP/PA BOTH+LAT/VIET RT CLINICAL HISTORY: Right knee pain and swelling Technique: XR KNEE 4V AP/PA BOTH+LAT/VIET RT -- RIGHT with 4 views on 4 images Comparison: None RESULT: No acute fracture or dislocation. Mild lateral compartment joint space narrowing. Vascular calcifications are noted. IMPRESSION IMPRESSION: No acute osseous abnormality County Attorney: PSCB Transcribe Date/Time: Oct 10 2023 5:09P Dictated by : CINTHIA TATUM MD This examination was interpreted and the report reviewed and electronically signed by: CINTHIA TATUM MD on Oct 10 2023 5:10PM EST [facility] XR Knee - right 4 ViewsOrder ed By: [facility] Provider on 10-10-2023 [facility] XR Knee - right 4 Viewson Radiology Study observation (narrative) [facility] US Kidney - bilateral and Ur inary bladderon 08-16-2023 [facility] Urinalysis complete panel (U )on 08-15-2023 Bacteria uL 987.8 uL High Negative uL [facility] Bilirubin Ql (U) Negative Negative [facility] Clarity (Unsp spec) Clear Clear [facility] Color (U) Yellow Yellow [facility] Epithelial cells LM.HPF (Urine sed) [#/Area] Few [facility] Glucose Test strip (U) [Mass/Vol] Negative Negative [facility] Hemoglobin Ql (U) Negative Negative [facility] Hyaline casts (Urine sed) [#/Area] 4-10 /LPF Abnormal 0 /LPF [facility] Ketones Ql (U) Negative Negative [facility] Leukocyte esterase Test strip Ql (U) 2+ Abnormal Negative [facility] Nitrite Ql (U) Negative Negative [facility] pH (U) 5.5 [pH] <8.5 [facility] Protein (U) [Mass/Vol] Negative Negative [facility] RBC LM.HPF (Urine sed) [#/Area] 0-2 /HPF 0-2 /HPF [facility] Specific gravity (U) [Rel density] 1.016 1.005 - 1.030 [facility] Urobilinogen Ql (U) 0.2 EU/dL 0.2-1.0 EU/dL Cl [facility] WBC LM.HPF (Urine sed) [#/Area] /[HPF] Abnormal 0-5 /HPF [facility] Absolute lymphocyte countOrd ered By: Sofy Sonw on 07-22-2023 Lymphocytes Auto (Unsp spec) [#/Vol] 1.93 10*3/uL 0.83-4.51 [facility] Automated lymphocyte count a s percentage of total leukocytesOrdered By: Sofy Snow on 07-22-2023 Lymphocytes/100 WBC Auto (Unsp spec) 23.5 % 19-41 [facility] Basophil percentageOrdered B y: Sofy Snow on 07-22-2023 Basophils/100 WBC (Bld) 0.2 % 0-1 [facility] Chloride [Moles/Vol] 99 mmol/L 98-107 [facility] Eosinophils/100 WBC (Bld) 1.5 % 0-5 [facility] Glucose [Mass/Vol] 145 mg/dL 74-106 [facility] Comment on above: Fasting Glucose resu lt greater than or equal to 126 mg/dL suggests DIABETES MELLITUS per A.D.A. criteria. Hemoglobin (Bld) [Mass/Vol] 10.8 g/dL 12.0-15.0 [facility] Monocytes/100 WBC (Bld) 7.7 % 0-10 [facility] Neutrophils (Bld) [#/Vol] 5.5 10*3/uL 2.0-7.7 [facility] Neutrophils/100 WBC (Bld) 66.6 % 47-70 [facility] Potassium [Moles/Vol] 4.2 mmol/L 3.5-5.1 [facility] Sodium [Moles/Vol] 134 mmol/L 136-145 [facility] WBC (Bld) [#/Vol] 8.2 10*3/uL 4.4-11.0 [facility] Determination of erythrocyte mean corpuscular volume (MCV)Ordered By: Sofy Snow on 07-22-2023 MCV (RBC) [Entitic vol] 92.3 fL 81-99 [facility] Erythrocyte distribution wid th ratioOrdered By: Sofy Snow on 07-22-2023 Erythrocyte distribution width (RBC) [Ratio] 14.1 % 11.6-14.6 [facility] Erythrocyte distribution wid th standard deviationOrdered By: Sofy Snow on 07-22-2023 Erythrocyte distribution width (RBC) [Entitic vol] 47.8 fL 35.1-43.9 [facility] Hematocrit Auto (Bld) [Volum e fraction]Ordered By: Sofy Snow on 07-22-2023 Hematocrit (Bld) [Volume fraction] 34.8 % 37-47 [facility] Immature granulocytes/100 WB C Auto (Bld)Ordered By: Sofy Snow on 07-22-2023 Immature granulocytes/100 WBC (Bld) 0.500 % 0.0-0.9 [facility] Comment on above: IG% - Immature Granu locytes (promyelocytes, myelocytes and metamyelocytes) > 1% indicates that a LEFT SHIFT is Present. Laboratory - Chemistry and C hemistry - challengeOrdered By: Sofy Snow on 07-22-2023 CO2 [Moles/Vol] 30.0 mmol/L 21.0-32.0 [facility] Natriuretic peptide B (Bld) [Mass/Vol] 102.0 pg/mL 0-100 [facility] Urea nitrogen/Creatinine [Mass ratio] 14.9 mg/mg 10-20 [facility] Laboratory - Hematology and Cell countsOrdered By: Sofy Snow on 07-22-2023 MCH (RBC) [Entitic mass] 28.6 pg 27.0-32.0 [facility] MCHC (RBC) [Mass/Vol] 31.0 g/dL 32-36 [facility] Nucleated RBC/100 WBC (Bld) [Ratio] 0 % 0-5 [facility] Platelets (Bld) [#/Vol] 299 10*3/uL 150-450 [facility] No Panel InformationOrdered By: Sofy Snow on 07-22-2023 Estimated GFR (MDRD) Amer 39 mL/min >60 [facility] Comment on above: GFR Calc Estimated GFR (MDRD) Non-Af Amer 32 mL/min >60 [facility] Comment on above: Non- GFR Calc Platelet mean volume Nelson-Ec ker (Bld) [Entitic vol]Ordered By: Sofy Snow on 07-22-2023 Platelet mean volume (Bld) [Entitic vol] 11.5 fL 6.2-12.0 [facility] RBC Auto (Bld) [#/Vol]Ordere d By: Sofy Snow on 07-22-2023 RBC (Bld) [#/Vol] 3.77 10*6/uL 4.2-5.4 [facility] Serum or plasma calcium esther urement (mass/volume)Ordered By: Sofy Snow on 07-22-2023 Calcium [Mass/Vol] 9.3 mg/dL 8.5-10.1 [facility] Serum or plasma creatinine m easurement (mass/volume)Ordered By: Sofy Snow on 07-22-2023 Creatinine [Mass/Vol] 1.68 mg/dL 0.55-1.02 [facility] Comment on above: The validity of the calculated GFR & GFRAA in patients over 70 years has not been determined. Clinical correlation is essential. Serum or plasma urea nitroge n measurement (mass/volume)Ordered By: Sofy Snow on 07-22-2023 Urea nitrogen [Mass/Vol] 25 mg/dL 7-18 [facility] Thin prep Papanicolaou smear with manual screeningOrdered By: Sofy Snow on 07-22-2023 Thin prep Papanicolaou smear with manual screening 5 5-15 [facility] Basophil percentageOrdered B y: Helio Yuen on 06-27-2023 Chloride [Moles/Vol] 108 mmol/L 98-107 [facility] Glucose [Mass/Vol] 115 mg/dL 74-106 [facility] Comment on above: Fasting Glucose resu lt from 100 to 125 mg/dL suggests IMPAIRED HOMEOSTASIS per A.D.A. criteria. Potassium [Moles/Vol] 4.8 mmol/L 3.5-5.1 [facility] Comment on above: Slight Hemolysis, Re sult may be falsely increased. Sodium [Moles/Vol] 138 mmol/L 136-145 [facility] WBC (Bld) [#/Vol] 5.6 10*3/uL 4.4-11.0 [facility] Blood erythrocytes count (nu mber/volume)Ordered By: Helio Yuen on 06-27-2023 RBC (Bld) [#/Vol] 3.49 10*6/uL 4.2-5.4 [facility] Blood hemoglobin measurement (mass/volume)Ordered By: Helio Yuen on 06-27-2023 Hemoglobin (Bld) [Mass/Vol] 10.3 g/dL 12.0-15.0 [facility] Blood platelet mean volumeOr dered By: Helio Yuen on 06-27-2023 Platelet mean volume (Bld) [Entitic vol] 11.6 fL 6.2-12.0 [facility] Determination of erythrocyte mean corpuscular volume (MCV)Ordered By: Helio Yuen on 06-27-2023 MCV (RBC) [Entitic vol] 88.8 fL 81-99 [facility] Glucose Glucometer (BldC) [M ass/Vol]Ordered By: Helio Yuen on 06-27-2023 Glucose [Mass/Vol] 110 mg/dL 74-106 [facility] Comment on above: MANAGEMENT OF PATIEN T CARE PER NURSING PROTOCOL Hematocrit Auto (Bld) [Volum e fraction]Ordered By: Helio Yuen on 06-27-2023 Hematocrit (Bld) [Volume fraction] 31.0 % 37-47 [facility] Laboratory - Chemistry and C hemistry - challengeOrdered By: Helio Yuen on 06-27-2023 CO2 [Moles/Vol] 26.0 mmol/L 21.0-32.0 [facility] Urea nitrogen/Creatinine [Mass ratio] 14.3 mg/mg 10-20 [facility] Laboratory - Hematology and Cell countsOrdered By: Helio Yuen on 06-27-2023 Erythrocyte distribution width (RBC) [Entitic vol] 45.6 fL 35.1-43.9 [facility] Erythrocyte distribution width (RBC) [Ratio] 14.2 % 11.6-14.6 [facility] MCH (RBC) [Entitic mass] 29.5 pg 27.0-32.0 [facility] MCHC Auto (RBC) [Mass/Vol]Or dered By: Helio Yuen on 06-27-2023 MCHC (RBC) [Mass/Vol] 33.2 g/dL 32-36 [facility] No Panel InformationOrdered By: Helio Yuen on 06-27-2023 Troponin I High Sensitivity 8 pg/mL 3.0-54.0 [facility] Comment on above: Please Note: New Any t Units and Gender Specific Reference Ranges. For more information see Policy Stat Procedure [place] High Sensitivity Troponin (TNIH) and attachments. Estimated Creatinine Clearance Calc 52.54 ml/min [facility] Estimated GFR (MDRD) Amer 62 mL/min >60 [facility] Comment on above: GFR Calc Estimated GFR (MDRD) Non-Af Amer 51 mL/min >60 [facility] Comment on above: Non- GFR Calc Platelets bldOrdered By: Vani Yuen on 06-27-2023 Platelets (Bld) [#/Vol] 214 10*3/uL 150-450 [facility] Serum or plasma calcium esther urement (mass/volume)Ordered By: Helio Yuen on 06-27-2023 Calcium [Mass/Vol] 8.8 mg/dL 8.5-10.1 [facility] Serum or plasma creatinine m easurement (mass/volume)Ordered By: Helio Yuen on 06-27-2023 Creatinine [Mass/Vol] 1.12 mg/dL 0.55-1.02 [facility] Comment on above: The validity of the calculated GFR & GFRAA in patients over 70 years has not been determined. Clinical correlation is essential. Serum or plasma urea nitroge n measurement (mass/volume)Ordered By: Helio Yuen on 06-27-2023 Urea nitrogen [Mass/Vol] 16 mg/dL 7-18 [facility] Thin prep Papanicolaou smear with manual screeningOrdered By: Helio Yuen on 06-27-2023 Thin prep Papanicolaou smear with manual screening 4 5-15 [facility] Absolute lymphocyte countOrd ered By: Alpa Eros on 06-26-2023 Lymphocytes Auto (Unsp spec) [#/Vol] 1.81 10*3/uL 0.83-4.51 [facility] Basophil percentageOrdered B y: Alpa Cooney on 06-26-2023 Basophils/100 WBC (Bld) 0.2 % 0-1 [facility] Eosinophils/100 WBC (Bld) 2.9 % 0-5 [facility] Neutrophils (Bld) [#/Vol] 2.6 10*3/uL 2.0-7.7 [facility] Neutrophils/100 WBC (Bld) 50.5 % 47-70 [facility] Blood lymphocytes/100 leukoc ytesOrdered By: Alpa Cooney on 06-26-2023 Lymphocytes/100 WBC (Bld) 35.1 % 19-41 [facility] Blood monocytes/100 leukocyt esOrdered By: Alpabasia Cooney on 06-26-2023 Monocytes/100 WBC (Bld) 10.7 % 0-10 [facility] Laboratory - Hematology and Cell countsOrdered By: Alpa Cooney on 06-26-2023 Immature granulocytes/100 WBC (Bld) 0.600 % 0.0-0.9 [facility] Comment on above: IG% - Immature Granu locytes (promyelocytes, myelocytes and metamyelocytes) > 1% indicates that a LEFT SHIFT is Present. Nucleated RBC/100 WBC (Bld) [Ratio] 0 % 0-5 [facility] Basophil percentageOrdered B y: Dima Henriquez on 06-25-2023 Bilirubin [Mass/Vol] 0.40 mg/dL 0.20-1.00 [facility] Comment on above: For patients on eltr ombopag therapy, use of Dimension [place] TBIL is not recommended. Protein [Mass/Vol] 7.0 g/dL 6.4-8.2 [facility] Basophil percentage 5-10 SEEN /hpf 0-5 [facility] Bilirubin Test strip Ql (U)O rdered By: Dima Henriquez on 06-25-2023 Bilirubin Ql (U) 1 mg/dL Negative [facility] Comment on above: COLOR OF URINE MAY A FFECT DIPSTICK RESULTS. Calcium oxalate crystals det ection in urine sediment by light microscopyOrdered By: Dima Henriquez on 06-25-2023 Calcium oxalate crystals LM Ql (Urine sed) 1+ /hpf [facility] Culture, urineOrdered By: Martin Henriquez on 06-25-2023 Bacteria identified Cx Nom (U) Positive [facility] Bacteria identified Cx Nom (U) Positive [facility] INR in Blood by Coagulation assayOrdered By: Dima Henriquez on 06-25-2023 INR Coag (Bld) [Relative time] 1.1 {INR} [facility] Ketones Test strip Ql (U)Ord ered By: Dima Henriquez on 06-25-2023 Ketones Ql (U) 5 mg/dl Negative [facility] Laboratory - Chemistry and C hemistry - challengeOrdered By: Dima Henriquez on 06-25-2023 ALP [Catalytic activity/Vol] 32 U/L 45-117 [facility] ALT [Catalytic activity/Vol] 19 U/L 13-56 [facility] Globulin (S) [Mass/Vol] 3.2 g/dL 2.2-4.2 [facility] Lipase [Catalytic activity/Vol] 43 U/L 13-75 [facility] Comment on above: Please note:LIPASE r evised reference range effective 22. New Lipase methodology. Expected to produce lower values than the previous assay method. NEW Reference Range: 13 - 75 U/L Laboratory - CoagulationOrde red By: Dima Henriquez on 06-25-2023 aPTT Coag (Bld) [Time] 29.9 s 24.1-36.2 [facility] PT Coag (PPP) [Time] 14.0 s 11.7-14.9 [facility] Mucus LM Ql (Urine sed)Order ed By: Dima Henriquez on 06-25-2023 Mucus Ql (Urine sed) 0 SEEN /hpf [facility] Nitrite Test strip Ql (U)Ord ered By: Dima Henriquez on 06-25-2023 Nitrite Ql (U) Positive Negative [facility] Protein Test strip Ql (U)Ord ered By: Dima Henriquez on 06-25-2023 Protein Ql (U) 30 mg/dl Negative [facility] Serum or plasma albumin esther urement (mass/volume)Ordered By: Dima Henriquez on 06-25-2023 Albumin [Mass/Vol] 3.8 g/dL 3.2-5.0 [facility] Serum or plasma albumin/glob ulin mass ratioOrdered By: Dima Henriquez on 06-25-2023 Albumin/Globulin [Mass ratio] 1.2 {ratio} 0.9-2.4 [facility] Squamous epithelial cells de tection in urine sediment by light microscopyOrdered By: Dima Henriquez on 06-25-2023 Epithelial cells.squamous LM Ql (Urine sed) 0-5 SEEN /hpf 5-10 [facility] Stool gastrointestinal hemog lobin detection by immunologic methodOrdered By: Dima Henriquez on 06-25-2023 Lower GI hemoglobin IA Ql (Stl) [facility] Lower GI hemoglobin IA Ql (Stl) [facility] Thin prep Papanicolaou smear with manual screeningOrdered By: Dima Henriquez on 06-25-2023 Thin prep Papanicolaou smear with manual screening 14 U/L 15-37 [facility] Urine blood detectionOrdered By: Dima Henriquez on 06-25-2023 RBC Ql (U) Negative Negative [facility] RBC Ql (U) 0 SEEN /hpf 0-5 [facility] Urine clarityOrdered By: Marichuy Henriquez on 06-25-2023 Clarity (U) Sl. Cloudy Clear [facility] Urine color determinationOrd ered By: Dima Henriquez on 06-25-2023 Color (U) Yellow Yellow [facility] Urine glucose detectionOrder ed By: Dima Henriquez on 06-25-2023 Glucose Ql (U) Normal mg/dl Normal [facility] Urine leukocyte esterase det ection by dipstickOrdered By: Dima Henriquez on 06-25-2023 Leukocyte esterase Test strip Ql (U) 100 /ul Negative [facility] Urine pHOrdered By: Dima day on 06-25-2023 pH (U) 5.0 [pH] 5.0 - 8.0 [facility] Urine sediment bacteria coun t by microscopy (number/high power field)Ordered By: Dima Henriquez on 06-25-2023 Bacteria LM.HPF (Urine sed) [#/Area] 1 /[HPF] None Seen [facility] Urine specific gravity measu rementOrdered By: Dima Henriquez on 06-25-2023 Specific gravity (U) [Rel density] 1.025 1.002-1.030 [facility] Urobilinogen Auto test strip Ql (U)Ordered By: Dima Henriquez on 06-25-2023 Urobilinogen Ql (U) 1 mg/dl Normal [facility] XR Chest PA and Lateralon IMPRESSION: No acute radiographic abnormality in the lungs. Borderline cardiomegaly. County Attorney: PSCB Transcribe Date/Time: Jun 05 2023 3:23P Dictated by : JEFFRY TAPIA MD This examination was interpreted and the report reviewed and electronically signed by: JEFFRY TAPIA MD on Jun 05 2023 3:24PM [facility] DIVISION OF RADIOLOGY * * *Final Report* * * DATE OF EXAM: Jun 05 2023 3:21PM WOX 5291 - XR CHEST 2V FRONTAL/LAT / PROCEDURE REASON: Viral URI with cough * * * * Physician Interpretation * * * * EXAMINATION: CHEST RADIOGRAPH (2 VIEW FRONTAL & LATERAL) CLINICAL HISTORY: Viral URI with cough MQ: XC2_6 EXAM DATE/TIME: 06/05/2023 3:21 PM COMPARISON: No relevant prior studies available. RESULT: Lines, tubes, and devices: None. Lungs and pleura: No consolidation. No lung mass. No pleural effusion. No pneumothorax. Cardiomediastinal silhouette: There appears be borderline cardiomegaly. Coronary stent visualized. Bones and soft tissues: Status post median sternotomy and CABG. The spine shows degenerative changes. DIVISION OF RADIOLOGY Provider, [facility] - 06/05/2023 * * *Final Report* * * DATE OF EXAM: Jun 05 2023 3:21PM WOX 5291 - XR CHEST 2V FRONTAL/LAT / PROCEDURE REASON: Viral URI with cough * * * * Physician Interpretation * * * * EXAMINATION: CHEST RADIOGRAPH (2 VIEW FRONTAL & LATERAL) CLINICAL HISTORY: Viral URI with cough MQ: XC2_6 EXAM DATE/TIME: 06/05/2023 3:21 PM COMPARISON: No relevant prior studies available. RESULT: Lines, tubes, and devices: None. Lungs and pleura: No consolidation. No lung mass. No pleural effusion. No pneumothorax. Cardiomediastinal silhouette: There appears be borderline cardiomegaly. Coronary stent visualized. Bones and soft tissues: Status post median sternotomy and CABG. The spine shows degenerative changes. IMPRESSION IMPRESSION: No acute radiographic abnormality in the lungs. Borderline cardiomegaly. County Attorney: PSCB Transcribe Date/Time: Jun 05 2023 3:23P Dictated by : JEFFRY TAPIA MD This examination was interpreted and the report reviewed and electronically signed by: JEFFRY TAPIA MD on Jun 05 2023 3:24PM EST [facility] Radiology Study observation (narrative) [facility] XR Chest PA and LateralOrder ed By: Ccf Provider on 06-05-2023 [facility] GLUCOSE, BLOOD (POC)on 05-28 Glucose [Mass/Vol] 117 mg/dL Abnormal 74 - 99 mg/dL [facility] Absolute lymphocyte countOrd ered By: Nacho Helm on 05-18-2023 Lymphocytes Auto (Unsp spec) [#/Vol] 2.06 10*3/uL 0.83-4.51 [facility] Basophil percentageOrdered B y: Nacho Helm on 05-18-2023 Basophils/100 WBC (Bld) 0.4 % 0-1 [facility] Chloride [Moles/Vol] 105 mmol/L 98-107 [facility] Eosinophils/100 WBC (Bld) 1.9 % 0-5 [facility] Glucose [Mass/Vol] 172 mg/dL 74-106 [facility] Comment on above: Fasting Glucose resu lt greater than or equal to 126 mg/dL suggests DIABETES MELLITUS per A.D.A. criteria. Neutrophils (Bld) [#/Vol] 6.5 10*3/uL 2.0-7.7 [facility] Neutrophils/100 WBC (Bld) 66.4 % 47-70 [facility] Potassium [Moles/Vol] 4.2 mmol/L 3.5-5.1 [facility] Sodium [Moles/Vol] 137 mmol/L 136-145 [facility] WBC (Bld) [#/Vol] 9.8 10*3/uL 4.4-11.0 [facility] Blood erythrocytes count (nu mber/volume)Ordered By: Nacho Helm on 05-18-2023 RBC (Bld) [#/Vol] 4.30 10*6/uL 4.2-5.4 [facility] Blood hemoglobin measurement (mass/volume)Ordered By: Nacho Helm on 05-18-2023 Hemoglobin (Bld) [Mass/Vol] 12.5 g/dL 12.0-15.0 [facility] Blood lymphocytes/100 leukoc ytesOrdered By: Nacho Helm on 05-18-2023 Lymphocytes/100 WBC (Bld) 21.1 % 19-41 [facility] Blood monocytes/100 leukocyt esOrdered By: Nacho Helm on 05-18-2023 Monocytes/100 WBC (Bld) 9.4 % 0-10 [facility] Blood platelet mean volumeOr dered By: Nacho Helm on 05-18-2023 Platelet mean volume (Bld) [Entitic vol] 10.8 fL 6.2-12.0 [facility] Determination of erythrocyte mean corpuscular volume (MCV)Ordered By: Nacho Helm on 05-18-2023 MCV (RBC) [Entitic vol] 89.8 fL 81-99 [facility] Hematocrit Auto (Bld) [Volum e fraction]Ordered By: Nacho Helm on 05-18-2023 Hematocrit (Bld) [Volume fraction] 38.6 % 37-47 [facility] Influenza virus A and B and SARS-CoV-2 (COVID-19) Ag panel - Upper respiratory specimOrdered By: Nacho Helm on 05-18-2023 SARS-CoV-2 (COVID-19) RNA NIEVES+probe Ql (Resp) [facility] Laboratory - Chemistry and C hemistry - challengeOrdered By: Nacho Helm on 05-18-2023 CO2 [Moles/Vol] 29.0 mmol/L 21.0-32.0 [facility] Urea nitrogen/Creatinine [Mass ratio] 15.1 mg/mg 10-20 [facility] Laboratory - Hematology and Cell countsOrdered By: Nacho Helm on 05-18-2023 Erythrocyte distribution width (RBC) [Entitic vol] 43.8 fL 35.1-43.9 [facility] Erythrocyte distribution width (RBC) [Ratio] 13.5 % 11.6-14.6 [facility] Immature granulocytes/100 WBC (Bld) 0.800 % 0.0-0.9 [facility] Comment on above: IG% - Immature Granu locytes (promyelocytes, myelocytes and metamyelocytes) > 1% indicates that a LEFT SHIFT is Present. MCH (RBC) [Entitic mass] 29.1 pg 27.0-32.0 [facility] Nucleated RBC/100 WBC (Bld) [Ratio] 0 % 0-5 [facility] MCHC Auto (RBC) [Mass/Vol]Or dered By: Nacho Helm on 05-18-2023 MCHC (RBC) [Mass/Vol] 32.4 g/dL 32-36 [facility] No Panel InformationOrdered By: Nacho Helm on 05-18-2023 Troponin I High Sensitivity 31 pg/mL 3.0-54.0 [facility] Comment on above: Please Note: New Any t Units and Gender Specific Reference Ranges. For more information see Policy Stat Procedure [place] High Sensitivity Troponin (TNIH) and attachments. Estimated Creatinine Clearance Calc 51.37 ml/min [facility] Estimated GFR (MDRD) Amer 77 mL/min >60 [facility] Comment on above: GFR Calc Estimated GFR (MDRD) Non-Af Amer 64 mL/min >60 [facility] Comment on above: Non- GFR Calc Platelets bldOrdered By: Esperanza Helm on 05-18-2023 Platelets (Bld) [#/Vol] 308 10*3/uL 150-450 [facility] Serum or plasma calcium esther urement (mass/volume)Ordered By: Nacho Helm on 05-18-2023 Calcium [Mass/Vol] 9.2 mg/dL 8.5-10.1 [facility] Serum or plasma creatinine m easurement (mass/volume)Ordered By: Nacho Helm on 05-18-2023 Creatinine [Mass/Vol] 0.93 mg/dL 0.55-1.02 [facility] Comment on above: The validity of the calculated GFR & GFRAA in patients over 70 years has not been determined. Clinical correlation is essential. Serum or plasma urea nitroge n measurement (mass/volume)Ordered By: Nacho Helm on 05-18-2023 Urea nitrogen [Mass/Vol] 14 mg/dL 7-18 [facility] Thin prep Papanicolaou smear with manual screeningOrdered By: Nacho Helm on 05-18-2023 Thin prep Papanicolaou smear with manual screening 3 5-15 [facility] Upper respiratory specimen i nfluenza A virus, influenza B virus, and severe acute respiratory syndromOrdered By: Nacho Helm on 05-18-2023 Upper respiratory specimen influenza A virus, influenza B virus, and severe acute respiratory syndrom [facility] 36on 05-15-2023 36 Left voicemail with stable BMP/CBC results. Instructed to continue her current medications and follow-up with Dr. Greene as scheduled. Normal [facility] ECG 12 lead - CLINIC PERFORM EDon 05-06-2023 Sinus Bradycardia -T-abnormality -Anterior/lateral ischemia. ABNORMAL [facility] ECG 12 lead - CLINIC PERFORM EDOrdered By: Masood Martin on 05-06-2023 [facility] Work Phone: Office Visiton 05-06-2023 Follow-up visit [id number] Omega Pugh 1955 F Date Provider Department Center 05/06/2023 [id number] BUSTAMANTE [facility] None Family History Problem Relation Age of Onset No Known Problems Mother No Known Problems Father Family Status - Relation Status Age at Mother Father Level of Service:61071 [place] OFFICE/OUTPATIENT ESTABLISHED MOD MDM 30-39 MIN Reason for Visit and Comments: Hospital Follow-up [832] Normal [facility] Progress Noteon 05-06-2023 Progress Note Goal LDL less than 7 0. LDL 84, April 2023. -Intolerant to statins -Continue Zetia and fenofibrate -Consider Praluent or Repatha, will defer to Dr. Osorio (her primary business lawyer) Normal [facility] Progress Note Controlled. BP on th e lower side today, but has been controlled at home. -Continue Toprol, losartan -If BP remains low, would decrease losartan dosing Normal [facility] Progress Note History of CABG in 2 000 with subsequent PCI in 2019 with overlapping LENA to saphenous vein graft to PDA. Recent small non-STEMI with LENA x3 to saphenous vein graft of PDA for severe in-stent restenosis. Stable CAD in remaining vessels with OPERATING COST CLERK of [place] proximal RCA, mid LAD and radial artery graft to OM. Mild disease of left main, circumflex, proximal LAD and D1 branch with patent YATES graft to D1. EF preserved. No angina. -Continue aspirin and Brilinta for minimum of 1 year, may not be held with cardiology clearance -Continue Toprol, Zetia, fenofibrate -Intolerant to statins -CBC and BMP ordered today -Cardiac rehab Normal [facility] Progress Note [facility] [address] [place] [address] [address] [facility] [address] Dept: [phone] Dept Visit type: Established : 1955 Reason for Visit: Hospital Follow-up Assessment and Plan 1. Coronary artery disease involving [place] coronary artery of [place] heart without angina pectoris Assessment & Plan: History of CABG in 2000 with subsequent PCI in 2019 with overlapping LENA to saphenous vein graft to PDA. Recent small non-STEMI with LENA x3 to saphenous vein graft of PDA for severe in-stent restenosis. Stable CAD in remaining vessels with OPERATING COST CLERK of [place] proximal RCA, mid LAD and radial artery graft to OM. Mild disease of left main, circumflex, proximal LAD and D1 branch with patent YATES graft to D1. EF preserved. No angina. -Continue aspirin and Brilinta for minimum of 1 year, may not be held with cardiology clearance -Continue Toprol, Zetia, fenofibrate -Intolerant to statins -CBC and BMP ordered today -Cardiac rehab Orders: - ECG 12 lead - CLINIC PERFORMED - CBC auto differential - Basic metabolic panel 2. History of coronary artery bypass surgery 3. Stented coronary artery 4. Essential hypertension Assessment & Plan: Controlled. BP on the lower side today, but has been controlled at home. -Continue Toprol, losartan -If BP remains low, would decrease losartan dosing 5. Pure hypercholesterolemia Assessment & Plan: Goal LDL less than 70. LDL 84, April 2023. -Intolerant to statins -Continue Zetia and fenofibrate -Consider Praluent or Repatha, will defer to Dr. Osorio (her primary business lawyer) 6. Hospital discharge follow-up Follow up if symptoms worsen or fail to improve. She will follow-up with Dr. Osorio, her primary business lawyer in [place] next month as scheduled. Subjective History of CAD status post CABG in 1999 with subsequent PCI in 2019 with overlapping LENA to saphenous vein graft to PDA, diabetes, hypertension, hyperlipidemia She recently was admitted to [facility] with shortness of breath and nausea. She was found to have a non-STEMI with elevated high-sensitivity troponin. She also had viral respiratory symptoms. She had a cath at [place] which showed severe in-stent restenosis of saphenous vein graft to PDA and stable CAD in remaining vessels with OPERATING COST CLERK of [place] proximal RCA, mid LAD and radial artery graft to OM. There was mild disease of the left main, left circumflex, proximal LAD and D1 branch with patent YATES graft to the D1. She was transferred to [facility] and underwent successful PCI of saphenous vein graft to PDA with 3 drug-eluting stents (proximal, mid and distal graft) using distal embolic protection. She had an echocardiogram which showed preserved ejection fraction of 72% with mild tricuspid insufficiency. She previously had been intolerant to full dose aspirin and had been maintained on Plavix for her antiplatelet. She was started on aspirin 81 mg p.o. daily and Brilinta 90 mg p.o. twice daily with loading dose. She is intolerant to statins and she was continued on her Zetia and Tricor was added to her regimen. Her losartan was increased for elevated blood pressure. She presents today for hospital follow-up. She will follow long-term with Dr. Osorio in [place]. Today, she states she feels better than she did last week, but feels she is only slowly improving. She still has lingering viral respiratory symptoms. She was positive for rhinovirus while she was hospitalized. She still has some residual nasal congestion and scratchy throat. She notes some left-sided sharp chest pain which she describes as a pinch. This occurs randomly and can come on with exertion or rest. It only lasts 1 second. This is not typical of angina. Her shortness of breath is slowly improving. She notes some dizziness and lightheadedness. Some nausea and she had 1 episode of vomiting. She thinks this is from all the medication she is taking. She denies PND, orthopnea, edema, palpitations or syncope. Elsa Pugh Review of Systems Constitutional: Negative for activity change, chills, diaphoresis, fatigue and fever. HENT: Positive for congestion. Negative for nosebleeds and trouble swallowing. Eyes: Negative for visual disturbance. Respiratory: Positive for shortness of breath (constant, feels like she can't get enough air) and wheezing (improves with inhaler). Negative for apnea, cough and chest tightness. Cardiovascular: Positive for chest pain (random pinching in left side of chest, only lasting 1 sec and not associated with exertion). Negative for palpitations and leg swelling. Gastrointestinal: Positive for nausea and vomiting (occasional). Negative for abdominal distention, abdominal pain, blood in stool and diarrhea. Genitourinary: Negative for hematuria. Musculoskeletal: Negative for gait problem and myalgias. Skin: Negative for color change and rash. Neurological: Positive (more content not included)... Normal [facility] 36on 05-03-2023 36 Patient called SANJAY baugh with vomiting this morning. She was a little nauseated and are cereal. She took her medications and there were no pills seen in vomit. Advised to sip fluids and try small, bland foods and see if this helps. She understands importance of taking DAPT and will continue to monitor. She was agreeable to plan. Normal [facility] 36on 05-02-2023 36 PC to patient, notes she's doing well and taking her medications as prescribed. She did have a little shortness of breath last night, felt she needed an extra breath at times and took her inhaler and it helped. She denies swelling or weight gain, EF 72% per echo. Discussed possibility of Brilinta, she also had a cold and has an inhaler. She will continue to monitor and contact office if worsens or does not improve over next days. She will keep her f/u appt as scheduled. Normal [facility] ECG 12-LEADon 05-02-2023 ECG 12-LEAD IMPRESSION: Sinus rhythm Nonspecific intraventricular conduction delay Repol abnrm suggests ischemia, anterolateral Compared to ECG 04/30/2023 13:34:49 Intraventricular conduction delay now present Early repolarization now present Sinus bradycardia no longer present Possible ischemia still present Electronically Signed On 05-02-2023 12:48:36 EST by Masood Ivey [facility] BASIC METABOLIC PANELon 11-1 Anion gap [Moles/Vol] 8 mmol/L Normal 3-13 [facility] Comment on above: Performed By: #### L AB103, LAB15, [id number], [id number] ####Assistant Coach: MERCEDES GARCIA ([phone])[facility] ([facility])[address] [place] [address] Calcium [Mass/Vol] 9.2 mg/dL Normal 8.4-10.4 [facility] Comment on above: Performed By: #### L AB103, LAB15, [id number], [id number] ####Assistant Coach: MERCEDES GARCIA ([phone])[facility] ([facility])[address] [place] [address] Chloride [Moles/Vol] 99 mmol/L Normal 98-107 [facility] Comment on above: Performed By: #### L AB103, LAB15, [id number], [id number] ####Assistant Coach: MERCEDES GARCIA ([phone])[facility] ([facility])[address] [place] [address] CO2 [Moles/Vol] 27 mmol/L Normal 22-30 [facility] Comment on above: Performed By: #### L AB103, LAB15, [id number], [id number] ####Assistant Coach: MERCEDES GARCIA ([phone])[facility])[address] [place] [address] Creatinine [Mass/Vol] 0.67 mg/dL Normal 0.52-1.04 [facility] Comment on above: Performed By: #### L AB103, LAB15, RFI135, [id number] ####Assistant Coach: MERCEDES GARCIA ([phone])[facility])[address] [place] [address] GLOMERULAR FILTRATION RATE ML/MIN/1.73 SQ M.PREDICTED >90.0 Normal >60.0 [facility] Comment on above: Result Comment: Calc ulation based on the Chronic Kidney Disease Epidemiology Collaboration (CKD-EPI) equation refit without adjustment for race Performed By: #### L AB103, LAB15, [id number], [id number] ####Assistant Coach: MERCEDES GARCIA ([phone])[facility])[address] [place] [address] Glucose [Mass/Vol] 156 mg/dL High 70-100 [facility] Comment on above: Performed By: #### L AB103, LAB15, [id number], [id number] ####Assistant Coach: MERCEDES GARCIA ([phone])[facility])[address] [place] [address] Potassium [Moles/Vol] 3.9 mmol/L Normal 3.5-5.1 [facility] Comment on above: Performed By: #### L AB103, LAB15, [id number], [id number] ####Assistant Coach: MERCEDES GARCIA ([phone])[address] Sodium [Moles/Vol] 133 mmol/L Low 135-145 [facility] Comment on above: Performed By: #### L AB103, LAB15, [id number], [id number] ####Assistant Coach: MERCEDES GARCIA ([phone])[facility])[address] [place] [address] Urea nitrogen [Mass/Vol] 12 mg/dL Normal 7-17 [facility] Comment on above: Performed By: #### L AB103, LAB15, [id number], [id number] ####Assistant Coach: MERCEDES GARCIA ([phone])[address] Basic metabolic 1998 panelon 05-01-2023 Anion gap [Moles/Vol] 8 mmol/L 3 - 13 mmol/L [facility] Calcium [Mass/Vol] 9.2 mg/dL 8.4 - 10. 4 mg/dL [facility] Chloride [Moles/Vol] 99 mmol/L 98 - 10 7 mmol/L [facility] CO2 [Moles/Vol] 27 mmol/L 22 - 30 mmol/L [facility] Creatinine [Mass/Vol] 0.67 mg/dL 0.52 - 1.04 mg/dL [facility] GFR/1.73 sq M.predicted MDRD (S/P/Bld) [Vol rate/Area] - PINF [facility] Comment on above: Calculation based on the Chronic Kidney Disease Epidemiology Collaboration (CKD-EPI) equation refit without adjustment for race Glucose [Mass/Vol] 156 mg/dL High 70 - 100 mg/dL [facility] Potassium [Moles/Vol] 3.9 mmol/L 3.5 - 5.1 mmol/L [facility] Sodium [Moles/Vol] 133 mmol/L Low 135 - 145 mmol/L [facility] Urea nitrogen [Mass/Vol] 12 mg/dL 7 - 17 mg/dL [facility] CBC (HEMOGRAM)on 05-01-2023 Erythrocyte distribution width (RBC) [Ratio] 14.2 % Normal 11.5-14.5 [facility] Comment on above: Performed By: #### L [id number] ####Assistant Coach: MERCEDES GARCIA ([phone])[address] ERYTHROCYTE MEAN CORPUSCULAR HEMOGLOBIN CONCENTRATION (G/DL) BY AUTOMATED 33.8 % Normal 32.0-36.0 [facility] Comment on above: Performed By: #### L AB294 ####Assistant Coach: MERCEDES GARCIA ([id number])[address] Hematocrit (Bld) [Volume fraction] 39.1 % Normal 35.0-47.0 [facility] Comment on above: Performed By: #### L AB294 ####Assistant Coach: MERCEDES GARCIA ([id number])[address] Hemoglobin (Bld) [Mass/Vol] 13.2 g/dL Normal 11.7-16.0 [facility] Comment on above: Performed By: #### L AB294 ####Assistant Coach: MERCEDES GARCIA ([phone])[facility])[address] [place] [address] MCH (RBC) [Entitic mass] 30.0 pg Normal 26.0-34.0 [facility] Comment on above: Performed By: #### L AB294 ####Assistant Coach: MERCEDES GARCIA ([phone])[facility])[address] [place] [address] MCV (RBC) [Entitic vol] 88.8 fL Normal 80.0-98.0 [facility] Comment on above: Performed By: #### L AB294 ####Assistant Coach: MERCEDES GARCIA ([phone])[facility] ([facility])[address] [place] [address] Platelet mean volume (Bld) [Entitic vol] 9.3 fL Normal 7.4-12.4 [facility] Comment on above: Performed By: #### L AB294 ####Assistant Coach: MERCEDES GARCIA ([phone])[facility] ([facility])[address] [place] [address] Platelets (Bld) [#/Vol] 213 10*3/uL Normal 140-440 [facility] Comment on above: Performed By: #### L AB294 ####Assistant Coach: MERCEDES GARCIA ([phone])[facility])[address] [place] [address] RBC (Bld) [#/Vol] 4.40 10*6/uL Normal 3.8-5.20 [facility] Comment on above: Performed By: #### L AB294 ####Assistant Coach: MERCEDES GARCIA ([phone])[facility])[address] [place] [address] WBC (Bld) [#/Vol] 9.7 10*3/uL Normal 3.6-10.7 [facility] Comment on above: Performed By: #### L [id number] ####Assistant Coach: MERCEDES GARCIA ([phone])[facility])[address] [place] [address] CBC panel Auto (Bld)on 05-01 Erythrocyte distribution width (RBC) [Ratio] 14.2 % 11.5 - 14.5 % [facility] Hematocrit (Bld) [Volume fraction] 39.1 % 35.0 - 47.0 % [facility] Hemoglobin (Bld) [Mass/Vol] 13.2 g/dL 11.7 - 16.0 g/dL [facility] Interpretation and review of laboratory results Normal [facility] MCH (RBC) [Entitic mass] 30.0 pg 26.0 - 34.0 pg [facility] MCHC (RBC) [Mass/Vol] 33.8 % 32.0 - 36.0 % [facility] MCV (RBC) [Entitic vol] 88.8 fL 80.0 - 98.0 fL [facility] Platelet mean volume (Bld) [Entitic vol] 9.3 fL 7.4 - 12.4 fL [facility] Platelets (Bld) [#/Vol] 213 10*3/uL 140 - 440 10*3/uL [facility] RBC (Bld) [#/Vol] 4.40 10*6/uL 3.8 - 5.20 10*6/uL [facility] WBC (Bld) [#/Vol] 9.7 10*3/uL 3.6 - 10.7 10*3/uL [facility] ECG 12-LEADon 05-01-2023 ECG 12-LEAD IMPRESSION: Sinus bradycardia Abnrm T, probable ischemia, anterolateral lds Prolonged QT interval Electronically Signed On 05-01-2023 17:25:06 EST by Masood Martin [facility] ECG 12-LEAD IMPRESSION: Incomplete analysis due to missing data in precordial lead(s) Sinus bradycardia Abnrm T, probable ischemia, anterolateral lds Electronically Signed On 05-01-2023 17:23:28 EST by Masood Martin [facility] ECG 12-LEAD IMPRESSION: Sinus bradycardia Abnrm T, consider ischemia, anterolateral lds Prolonged QT interval Electronically Signed On 05-01-2023 17:14:00 EST by Masood Martin [facility] ECG 12-LEAD IMPRESSION: Sinus bradycardia Abnrm T, consider ischemia, anterolateral lds Electronically Signed On 05-01-2023 9:35:15 EST by Jose Lam [facility] IDNon 05-01-2023 IDN Problem: Knowledge Deficit Goal: Patient/family/caregiver demonstrates understanding of disease process, treatment plan, medications, and discharge instructions Outcome: Progressing Problem: Potential for Compromised Skin Integrity Goal: Skin Integrity is Maintained or Improved Outcome: Progressing Goal: Nutritional status is improving Outcome: Progressing Problem: Urinary Incontinence Goal: Perineal skin integrity is maintained or improved Outcome: Progressing Normal [facility] Laboratory - Chemistry and C hemistry - challengeOrdered By: Aden Mcgovern on 05-01-2023 Troponin I.cardiac [Mass/Vol] 0.546 ng/mL Critically high NINF - 0.034 ng/mL [facility] Laboratory - Chemistry and C hemistry - challengeon 05-01-2023 Magnesium [Mass/Vol] 1.8 mg/dL 1.6 - 2 .3 mg/dL [facility] MAGNESIUMon 05-01-2023 Magnesium [Mass/Vol] 1.8 mg/dL Normal 1.6-2.3 [facility] Comment on above: Performed By: #### L AB103, LAB15, [id number], [id number] ####Assistant Coach: MERCEDES GARCIA ([phone])[facility] ([address] Magnesium [Mass/Vol]on 05-01 Interpretation and review of laboratory results Normal [facility] via[employer] No Panel InformationOrdered By: Masood Martin on 05-01-2023 P [place] 54 degrees CS Disco Phone: SD Interval 165 ms CS Disco Phone: QRS [place] 49 degrees CS Disco Phone: QRSD Interval 105 ms CS Disco Phone: QT Interval 557 ms [employer] Disco Phone: QTC Interval 518 ms [employer] Disco Phone: T Wave [place] 175 degrees CS Disco Phone: CS Disco Phone: No Panel Informationon 05-01 Sinus bradycardia Abnrm T, probable ischemia, anterolateral lds Prolonged QT interval Electronically Signed On 05-01-2023 17:25:06 EST by Masood Galvez MD - 05/01/2023 IMPRESSION: Sinus bradycardia Abnrm T, probable ischemia, anterolateral lds Prolonged QT interval Electronically Signed On 05-01-2023 17:25:06 EST by [facility]ood [facility] P [place] 56 degrees [facility] SD Interval 181 ms [facility] QRS [place] 69 degrees [facility] QRSD Interval 100 ms [facility] QT Interval 517 ms [facility] QTC Interval 486 ms [facility] T Wave [place] 151 degrees [facility] Incomplete analysis due to missing data in precordial lead(s) Sinus bradycardia Abnrm T, probable ischemia, anterolateral lds Electronically Signed On 05-01-2023 17:23:28 EST by Masood Galvez MD - 05/01/2023 IMPRESSION: Incomplete analysis due to missing data in precordial lead(s) Sinus bradycardia Abnrm T, probable ischemia, anterolateral lds Electronically Signed On 05-01-2023 17:23:28 EST by [facility]ood [facility] [place] 55 degrees [facility] SD Interval 175 ms [facility] QRS [place] 49 degrees [facility] QRSD Interval 104 ms [facility] QT Interval 530 ms [facility] QTC Interval 510 ms [facility] T Wave [place] 163 degrees [facility] Sinus bradycardia Abnrm T, consider ischemia, anterolateral lds Prolonged QT interval Electronically Signed On 05-01-2023 17:14:00 EST by Masood Galvez MD - 05/01/2023 IMPRESSION: Sinus bradycardia Abnrm T, consider ischemia, anterolateral lds Prolonged QT interval Electronically Signed On 05-01-2023 17:14:00 EST by [facility]ood [facility] Sinus bradycardia Abnrm T, consider ischemia, anterolateral lds Electronically Signed On 05-01-2023 9:35:15 EST by Jose Okeefe MD - 05/01/2023 IMPRESSION: Sinus bradycardia Abnrm T, consider ischemia, anterolateral lds Electronically Signed On 05-01-2023 9:35:15 EST by Jose Lam [facility] Interpretation and review of laboratory results Abnormal [facility] 256 [place] via[facility]oo Performed by: [facility], [address] [place] [address] CLIA ID: [id number] [facility] Interpretation and review of laboratory results Abnormal [facility] No Panel InformationOrdered By: Jose Lam on 05-01-2023 P [place] 78 degrees [employer] Work Phone: SD Interval 175 ms [employer] Phone: QRS [place] 47 degrees [employer] Phone: QRSD Interval 104 ms [employer] Work Phone: QT Interval 536 ms [employer] Work Phone: QTC Interval 495 ms [employer] Work Phone: T Wave [place] 149 degrees [employer] Phone: CS Disco Phone: Nursing Noteon 05-01-2023 Nursing Note Discharge instructio ns including follow up appointments and new medications were went over with patient and . Answered all questions and concerns. Peripheral Ivs removed. Normal [facility] PHOSPHORUSon 05-01-2023 Phosphate [Mass/Vol] 4.7 mg/dL High 2.5-4.5 [facility] viavoo [facility] Comment on above: Performed By: #### L AB103, LAB15, [id number], [id number] ####Assistant Coach: MERCEDES GARCIA ([phone])[facility] ([facility])[address] [place] [address] [place] Phosphate [Moles/Vol]on 04-17 Phosphate [Mass/Vol] 4.7 mg/dL High 2.5 - 4 .5 mg/dL [facility] Progress Noteon 05-01-2023 Progress Note Ischemic Heart Disea se Coordinator Note Name: Elsa Pugh Date of : 1955 05/01/23 Cardiac Medications - ASA 81mg daily, ticagrelor 90mg BID, metoprolol succinate 25mg daily, losartan 50mg daily, pantoprazole 40mg daily, and ezetimibe 10mg daily, fenofibrate 145mg daily, SL Nitro PRN Primary Animal Stunner - Dr. Nieto/Devon Follow-up arranged with NEO Thakkar on 05/06/23 at 11am Cardiac rehab discussed with patient - Yes Text AMI Hotline # & Zone DC instructions with permission from patient - No, patient declined Discharge instructions, medications, restrictions, activity, diet, cardiac rehab and follow-up reviewed and patient verbalized understanding. She will utilize [id number] for her home-going Rx and was instructed to notify office with any difficulty obtaining Rx or if this becomes a financial burden. She was also informed to notify the office in the future if anyone asks her to hold or stop either ASA or ticagrelor (Brilinta) 90mg BID. [facility] Progress Note ---- -------- Attestation signed by Chris Licona MD at 05/01/2023 2:59 PM I, Dr. Chris Licona, saw and evaluated the patient on 05/01/2023. I personally obtained the nicholson and critical portions of the history and physical exam. I reviewed the medical record including labs, imaging studies, and notes. I discussed the patient with the medical claims representative, and I agree with the resident's medical decision making. 68 y.o. 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 Mild disease of left main, circumflex, proximal LAD and D1 branch with patent YATES graft to D1 as well. Patient underwent successful PCI of SVG to RPDA yesterday with 3 LENA implanted (proximal, mid, and distal graft) using distal embolic protection. No significant no reflow. Patient tolerated well. Doing well post PCI today with no bleeding from right femoral site. No angina or shortness of breath. Groin soft with no hematoma. Lungs clear. Labs reviewed and appear stable with creatinine 0.6, normal blood counts, and normal potassium. Echo reviewed showing normal EF of 72% with mild tricuspid insufficiency. Patient stable for discharge to home today. Tolerating DAPT with aspirin and Brilinta in place of Plavix. Starting PPI given history of GI issues with full dose aspirin in the past. Continue Zetia and add Tricor for hypertriglyceridemia. Intolerant to statins. Continue beta-alexandra and ARB. Outpatient discussion of PCSK9 inhibitor. Patient will have postintervention [facility] follow-up, and will then follow-up with outpatient business lawyer Dr. Osorio in [place]. Update given to Dr. Osorio. Chris Licona MD -------- [facility] [place] [facility] CCU PROGRESS NOTE Patient Name: Elsa Pugh : 1955 Subjective: Interval History: Currently, patient is resting comfortably in bed. Patient has no acute complaints. Underwent successful IVUS guided PCI of the SVG to Right PDA with 3 LENA. Clinically stable. Anticipate discharge home today, 05/01. Review of Systems: Review of Systems Constitutional: Negative for chills, diaphoresis and fever. HENT: Negative for congestion, postnasal drip, rhinorrhea and sinus pain. Respiratory: Negative for cough and shortness of breath. Cardiovascular: Positive for chest pain (mild). Negative for leg swelling. Gastrointestinal: Negative for abdominal distention, abdominal pain and constipation. Endocrine: Negative for cold intolerance and heat intolerance. Genitourinary: Negative for difficulty urinating and dysuria. Musculoskeletal: Negative for arthralgias and myalgias. Skin: Negative for rash. Neurological: Negative for dizziness, weakness, numbness and headaches. Psychiatric/Behavioral: Negative for agitation and confusion. The patient is not nervous/anxious. Inpatient Medications: Scheduled Meds:ascorbic acid, 500 mg, Oral, Daily aspirin, 81 mg, Oral, Daily citalopram, 20 mg, Oral, Daily ezetimibe, 10 mg, Oral, Nightly [START ON 05/02/2023] losartan, 50 mg, Oral, Daily [Held by provider] metoprolol succinate XL, 25 mg, Oral, Daily pregabalin, 150 mg, Oral, BID ticagrelor, 90 mg, Oral, BID Objective: Physical Examination: BP 122/50 (BP Location: Right arm, Patient Position: Sitting) Pulse 58 Temp (!) 35.8 ?C (96.5 ?F) (Temporal) Resp 18 Ht 1.651 m (5' 5) Wt 87.5 kg (193 lb) SpO2 97% BMI 32.12 kg/m? Intake/Output Summary (Last 24 hours) at 05/01/2023 1331 Last data filed at 04/30/2023 1700 Gross per 24 hour Intake -- Output 500 ml Net -500 ml Physical Exam Vitals and nursing note reviewed. Constitutional: General: She is not in acute distress. Appearance: Normal appearance. HENT: Right Ear: External ear normal. Left Ear: External ear normal. Mouth/Throat: Mouth: Mucous membranes are moist. Pharynx: Oropharynx is clear. Eyes: Conjunctiva/sclera: Conjunctivae normal. Pupils: Pupils are equal, round, and reactive to light. Cardiovascular: Rate and Rhythm: Normal rate and regular rhythm. Heart sounds: Normal heart sounds. No murmur heard. No friction rub. No gallop. Pulmonary: Effort: Pulmonary effort is normal. No respiratory distress. Breath sounds: Normal breath sounds. No wheezing. Abdominal: General: Bowel sounds are normal. Palpations: Abdomen is soft. There is no mass. Musculoskeletal: Right lower leg: No edema. Left lower leg: No edema. Lymphadenopathy: Cervical: No cervical adenopathy. Skin: Comments: R groin access site appears clean Neurological: Mental Status: She is alert and oriented to person, place, and time. Psychiatric: Mood and (more content not included)... Normal [facility] Progress Note .Nutrition rescreen completed. Chart reviewed. Patient to be monitored and followed by the diet patient care technician instructor. JOHN Steinberg Normal [facility] TROPONIN Ion 05-01-2023 Troponin I.cardiac [Mass/Vol] 0.546 ng/mL Critically high <0.034 [facility] Comment on above: Result Comment: LONNY Vega COMMENTS: Patients with high levels of Biotin oral intake (ie >5 mg/day) may have falsely decreased Troponin levels. Performed By: #### L AB103, LAB15, [id number], [id number] ####Assistant Coach: MERCEDES GARCIA ([id number])[facility] ([employer] Troponin I.cardiac [Mass/Vol ]Ordered By: Aden Mcgovern on 05-01-2023 Interpretation and review of laboratory results Abnormal [facility] Patients with high levels of Biotin oral intake (ie >5 mg/day) may have falsely decreased Troponin levels. [employer] Heart TransthoracicOrdere d By: Abraham Lemos on 05-01-2023 Ao Root Index 1.13 cm/m2 [facility]: [phone] Aortic Root 2.2 cm [facility] [employer] Phone: Ascending Aorta 3.1 cm [facility] [employer] Phone: Ascending Aorta Index 1.59 cm/m2 [facility] Work Phone: AV Area by Peak Velocity 0.8 cm2 [facility] [employer] Phone: AV Area by VTI 1.0 cm2 [facility] [employer] Phone: AV Mean Gradient 12 mmHg [facility] [employer] [employer] Phone: [phone] AV Mean Velocity 1.5 m/s [facility] [employer] Phone: AV Peak Gradient 28 mmHg [facility] [employer] [phone] AV Peak Velocity 2.7 m/s [facility]: AV Velocity Ratio 0.30 [facility] Work Phone: AV VTI 52.5 cm [facility] Work Phone: [phone] ROBERT/BSA Peak Velocity 0.4 cm2/m2 [facility] Work Phone: ROBERT/BSA VTI 0.5 cm2/m2 [facility] Work Phone: [phone] E/E' Lateral 12.14 [facility] Work Phone: [phone] E/E' Ratio (Averaged) 12.14 [facility] Work Phone: [phone] E/E' Septal 12.14 [facility] Work Phone: EF BP 72 % 55 - 100 % [facility] Work Phone: Est. RA Pressure 3 mmHg [facility] Work Phone: Fractional Shortening 2D 36 % 28 - 44 % [facility] Work Phone: Interpretation and review of laboratory results Abnormal [facility] Work Phone: IVC Diameter 2.0 cm [facility] Work Phone: IVSd 0.8 cm 0.6 - 0.9 cm [facility] Work Phone: LA Diameter 3.5 cm [facility] Work Phone: LA Size Index 1.79 cm/m2 [facility] Work Phone: LA Volume 2C 90 mL Abnormal 22 - 52 mL [facility] Work Phone: LA Volume 4C 91 mL Abnormal 22 - 52 mL [facility] Work Phone: LA Volume A/L 100 mL [facility] Work Phone: LA Volume BP 91 mL Abnormal 22 - 52 mL [facility] Work Phone: LA Volume Index 2C 46 mL/m2 Abnormal 16 - 34 mL/m2 [facility] Work Phone: LA Volume Index 4C 47 mL/m2 Abnormal 16 - 34 mL/m2 [facility] Work Phone: LA Volume Index A/L 51 mL/m2 16 - 34 mL/m2 [facility] Work Phone: LA Volume Index BP 47 ml/m2 Abnormal 16 - 34 ml/m2 [facility] Work Phone: LA/AO Root Ratio 1.59 [facility] Work Phone: LV E' Lateral Velocity 7 cm/s [facility] Work Phone: LV E' Septal Velocity 7 cm/s [facility] Work Phone: LV EDV A2C 95 mL [facility] Work Phone: LV EDV A4C 139 mL [facility] Work Phone: LV EDV BP 121 mL Abnormal 56 - 104 mL [facility] Work Phone: LV EDV Index A2C 49 mL/m2 [facility] Work Phone: LV EDV Index A4C 71 mL/m2 [facility] Phone: LV EDV Index BP 62 mL/m2 [facility] Work Phone: LV Ejection Fraction A2C 71 % [facility] Work Phone: LV Ejection Fraction A4C 74 % [facility] Work Phone: LV ESV A2C 28 mL [facility] Work Phone: LV ESV A4C 36 mL [facility] Work Phone: LV ESV BP 34 mL 19 - 49 mL [facility] Work Phone: LV ESV Index A2C 14 mL/m2 [facility] Work Phone: LV ESV Index A4C 18 mL/m2 [facility] Work Phone: LV ESV Index BP 17 mL/m2 [facility] Work Phone: LV Mass 2D 125.1 g 67 - 162 g [facility] Phone: LV Mass 2D Index 64.1 g/m2 43 - 95 g/m2 [facility] Work Phone: LV RWT Ratio 0.28 [facility] Work Phone: LVIDd 5.0 cm 3.9 - 5.3 cm [facility] Work Phone: [phone] LVIDd Index 2.56 cm/m2 [facility] Work Phone: [phone] LVIDs 3.2 cm [facility] Work Phone: [phone] LVIDs Index 1.64 cm/m2 [facility] Work Phone: [phone] LVOT Area 2.5 cm2 [facility] Work Phone: [phone] LVOT Cardiac Output 3.4 liter/minute [facility] Work Phone: [phone] LVOT Diameter 1.8 cm [facility] Work Phone: [phone] LVOT Mean Gradient 2 mmHg [facility] Work Phone: [phone] LVOT Peak Gradient 3 mmHg [facility] Work Phone: [phone] LVOT Peak Velocity 0.8 m/s [facility] Work Phone: [phone] LVOT Stroke Volume Index 26.2 mL/m2 [facility] Work Phone: [phone] LVOT SV 51.1 ml [facility] Work Phone: [phone] LVOT VTI 20.1 cm [facility] Work Phone: [phone] LVOT:AV VTI Index 0.38 [facility] Work Phone: [phone] LVPWd 0.7 cm 0.6 - 0.9 cm [facility] Work Phone: [phone] MV A Velocity 0.99 m/s [facility] Work Phone: [phone] MV E Velocity 0.85 m/s [facility] Work Phone: [phone] MV E Wave Deceleration Time 274.3 ms [facility] Work Phone: [phone] MV E/A 0.86 [facility] Work Phone: [phone] RA Area 4C 28.2 mL [facility] Work Phone: [phone] RA Area 4C 27.8 mL [facility] Work Phone: [phone] RV Free Wall Peak S' 7 cm/s [facility] Work Phone: [phone] RV Mid Dimension 4.2 cm [facility] Phone: [phone] RVSP 32 mmHg [facility] Phone: [phone] TR Max Velocity 2.67 m/s [facility]: [phone] TR Peak Gradient 29 mmHg [facility] Phone: CS Disco Phone: US Heart Transthoracicon Left Ventricle: Left ventricle size is normal. Mildly increased wall thickness. Normal left ventricular systolic function. EF by 2D Simpsons Biplane is 72%. Normal wall motion. Right Ventricle: Right ventricle is mildly dilated. Normal systolic function. Tricuspid Valve: Mild (1+) regurgitation. Normal RVSP. Est RA pressure is 3 mmHg. RVSP is 32 mmHg. Left Atrium: Left atrium is mildly dilated. No significant valvular abnormalities. Left Ventricle Left ventricle size is normal. Mildly increased wall thickness. Normal left ventricular systolic function. EF by 2D Simpsons Biplane is 72%. Normal wall motion. Indeterminate diastolic function due to mitral valve disease. Right Ventricle Right ventricle is mildly dilated. Normal systolic function. Left Atrium Left atrium is mildly dilated. Right Atrium Right atrium is mildly dilated. IVC/SVC IVC diameter is normal and decreases greater than 50% during inspiration; therefore the estimated right atrial pressure is normal (~3 mmHg). Mitral Valve Valve structure is normal. Moderately calcified leaflets. Moderate annular calcification. Trace regurgitation. No stenosis noted. Tricuspid Valve Valve structure is normal. Mild (1+) regurgitation. Normal RVSP. Est RA pressure is 3 mmHg. RVSP is 32 mmHg. Aortic Valve Not well visualized. Trileaflet. Mildly calcified cusps. Cusp sclerosis. Trace regurgitation. No significant stenosis. Pulmonic Valve The pulmonic valve visualization is suboptimal but appears to be functioning normally. Trace regurgitation. Ascending Aorta Normal sized sinuses of Valsalva and ascending aorta. Pericardium No pericardial effusion. Septum No interatrial shunt visualized on color Doppler. Pulmonary Artery Pulmonary artery was not well visualized. Study Details Image quality: adequate. Heart rate: 56 bpm. Blood pressure: 157/67 mmHg. The underlying ECG rhythm was sinus bradycardia. No contrast was given. Echo Additional Conclusions No significant valvular abnormalities. CV CPACS Vital signsOrdered By: Tash Martin on 05-01-2023 Heart rate 52 /min bpm [facility] Work Phone: Vital signson 05-01-2023 Heart rate 53 /min bpm [facility] Heart rate 56 /min bpm [facility] Vital signsOrdered By: Jose Lam on 05-01-2023 Heart rate 51 /min bpm [facility] Work Phone: APTTon 04-30-2023 aPTT Coag (Bld) [Time] 35.6 s High 20.0-30.5 [facility] Comment on above: Result Comment: LONNY Vega COMMENTS: NOTE: The therapeutic time for Heparin anticoagulation, based on Xa activity inhibition, is an APTT of 46-80 seconds. Performed By: #### L AB325 ####Assistant Coach: MERCEDES GARCIA ([phone])[facility])[address] [place] [address] aPTT Coag (Bld) [Time] 30.9 s High 20.0-30.5 [facility] Comment on above: Result Comment: LONNY Vega COMMENTS: NOTE: The therapeutic time for Heparin anticoagulation, based on Xa activity inhibition, is an APTT of 46-80 seconds. Performed By: #### L AB325 #### Assistant Coach: MERCEDES GARCIA ([phone]) [facility] ([facility]) [address] [place] [address] Anesthesia Noteon 04-30-2023 Anesthesia Note Sedation Plan ASA class 4 - patient with severe systemic disease that is a constant threat to life Mallampati class: II - soft palate, uvula, fauces visible. Sedation plan: local anesthesia and moderate (conscious sedation) Risks, benefits, and alternatives discussed with patient. Plan discussed with attending. Immediate reassessment prior to sedation: Patient's status reviewed and vital signs assessed; acceptable to perform procedure and proceed to administer sedation as planned. Normal [facility] CARECOORDon 04-30-2023 [facility] Care Managment Initi al Assessment Date: 04/30/2023 Patient Name: Elsa Pugh : 1955 Patient Information Source of Information: Patient Cognition/Language: WFL - Within Functional Limits Permission given to speak with patient residential sales representative/caregiver as indicated: Yes Confirmation of Payer with patient/family: Yes Payer Name: Aetna Mc[place] Adv/ Mdc [place]: No Confirmation of Primary Care Physician: Confirmed PCP Name: Maddi Seen in last 2 years?: Yes Primary Caregiver: Self If assistance needed, confirmed caregiver ready, willing and able to care for patient at discharge: Yes Confirmed with: Living Arrangements Current Residence: Apartment (side by side duplex) Number of Floors 2 Number of Entry Steps: 1 Bed/Bath Levels: Both second floor Facility: Facility Name: Plan to Return: Yes Lives with: Spouse/significant other Support Systems: Spouse/significant other, Children Activities of Daily Living Ambulation: Independent Bathing/Dressing: Independent Elimination/Continence/T oileting: Independent Feeding: Independent Who Assists with Activities of Daily Living: Instrumental Activities of Daily Living Prescription Coverage: Yes Pharmacy Used: [facility] in [place] Medication Management: Independent Transportation/Shopping: Independent Transportation Mode: Car Needs Assistance with Transportation at Discharge: No Meal Preparation: Independent Laundry/Cleaning: Independent Finances/Bill Paying: Independent Communication: Independent Types of Care Services/Equipment Utilized Care Services: Dialysis Type: NA Durable Medical Equipment: Cane, CPap, Glucometer Patient's Goal/Discharge Plan Patient expects to be discharged to: Home Discharge Planning Actions: Continue to follow Patient's Choice Rights and [employer] and Collaborative Relationships Disclosed as Indicated for Post-Acute Care: Yes Interdisciplinary Team Engagement: PT/OT Social Work Referral for: Additional Information: Patient admitted to for NSTEMI. Received LHC at OSH; decision made to transfer to [facility] for SVG intervention. Remains on heparin gtt in anticipation of procedure. Started on nitroglycerin gtt for recurrent chest pain. TCC meets with patient and daughter at bedside. Patient lives in a two story duplex with her boyfriend, drives, is current with her PCP, and has prescription coverage. TCC to follow. Rosa Barker RN [facility] CBC W Auto Differential pane l (Bld)Ordered By: Arnold Paez on 04-30-2023 Basophils (Bld) [#/Vol] 0.1 10*3/uL 0.0 - 0.2 10*3/uL [facility] Basophils/100 WBC (Bld) 0.9 % 0.0 - 2.0 % [facility] Eosinophils (Bld) [#/Vol] 0.1 10*3/uL 0.0 - 0.5 10*3/uL [facility] Eosinophils/100 WBC (Bld) 1.8 % 1.0 - 6.0 % [facility] Erythrocyte distribution width (RBC) [Ratio] 13.8 % 11.5 - 14.5 % [facility] Hematocrit (Bld) [Volume fraction] 38.0 % 35.0 - 47.0 % [facility] Hemoglobin (Bld) [Mass/Vol] 12.7 g/dL 11.7 - 16.0 g/dL [facility] Interpretation and review of laboratory results Abnormal [facility] Lymphocytes (Bld) [#/Vol] 2.5 10*3/uL 1.0 - 4.3 10*3/uL [facility] Lymphocytes/100 WBC (Bld) 32.0 % 20.0 - 40.0 % [facility] MCH (RBC) [Entitic mass] 30.0 pg 26.0 - 34.0 pg [facility] MCHC (RBC) [Mass/Vol] 33.4 % 32.0 - 36.0 % [facility] MCV (RBC) [Entitic vol] 89.8 fL 80.0 - 98.0 fL [facility] Monocytes (Bld) [#/Vol] 0.9 10*3/uL High 0.0 - 0.8 10*3/uL [facility] Monocytes/100 WBC (Bld) 11.2 % High 2.0 - 10.0 % [facility] Neutrophils (Bld) [#/Vol] 4.2 10*3/uL 1.8 - 7.0 10*3/uL [facility] Neutrophils/100 WBC (Bld) 54.1 % 40.0 - 80.0 % [facility] Nucleated RBC/100 WBC (Bld) [Ratio] 0.1 % [facility] Platelet mean volume (Bld) [Entitic vol] 9.0 fL 7.4 - 12.4 fL [facility] Platelets (Bld) [#/Vol] 188 10*3/uL 140 - 440 10*3/uL [facility] RBC (Bld) [#/Vol] 4.23 10*6/uL 3.8 - 5.20 10*6/uL [facility] WBC (Bld) [#/Vol] 7.7 10*3/uL 3.6 - 10.7 10*3/uL [facility] CBC WITH AUTO DIFFERENTIALon 04-30-2023 Basophils (Bld) [#/Vol] 0.1 10*3/uL Normal 0.0-0.2 [facility] Comment on above: Performed By: #### L [id number] ####Assistant Coach: MERCEDES GARCIA ([id number])[facility] [facility])[address] [place] [address] Basophils/100 WBC (Bld) 0.9 % Normal 0.0-2.0 [facility] Comment on above: Performed By: #### L [id number] ####Assistant Coach: MERCEDES GARCIA ([phone])[facility])[address] [place] [address] Eosinophils (Bld) [#/Vol] 0.1 10*3/uL Normal 0.0-0.5 [facility] Comment on above: Performed By: #### L [id number] ####Assistant Coach: MERCEDES GARCIA ([id number])[facility])[address] [place] [address] Eosinophils/100 WBC (Bld) 1.8 % Normal 1.0-6.0 [facility] Comment on above: Performed By: #### L [id number] ####Assistant Coach: MERCEDES GARCIA ([phone])[facility])[address] [place] [address] Erythrocyte distribution width (RBC) [Ratio] 13.8 % Normal 11.5-14.5 [facility] Comment on above: Performed By: #### L [id number] ####Assistant Coach: MERCEDES GARCIA ([phone])[facility])[address] [place] [address] ERYTHROCYTE MEAN CORPUSCULAR HEMOGLOBIN CONCENTRATION (G/DL) BY AUTOMATED 33.4 % Normal 32.0-36.0 [facility] Comment on above: Performed By: #### L [id number] ####Assistant Coach: MERCEDES GARCIA ([phone])[address] Hematocrit (Bld) [Volume fraction] 38.0 % Normal 35.0-47.0 [facility] Comment on above: Performed By: #### L [id number] ####Assistant Coach: MERCEDES GARCIA ([phone])[facility])[address] [place] [address] Hemoglobin (Bld) [Mass/Vol] 12.7 g/dL Normal 11.7-16.0 [facility] Comment on above: Performed By: #### L [id number] ####Assistant Coach: MERCEDES GARCIA ([id number])[address] Lymphocytes (Bld) [#/Vol] 2.5 10*3/uL Normal 1.0-4.3 [facility] Comment on above: Performed By: #### L [id number] ####Assistant Coach: MERCEDES GARCIA ([phone])[address] Lymphocytes/100 WBC (Bld) 32.0 % Normal 20.0-40.0 [facility] Comment on above: Performed By: #### L [id number] ####Assistant Coach: MERCEDES GARCIA ([phone])[address] MCH (RBC) [Entitic mass] 30.0 pg Normal 26.0-34.0 [facility] Comment on above: Performed By: #### L [id number] ####Assistant Coach: MERCEDES GARCIA ([phone])[address] MCV (RBC) [Entitic vol] 89.8 fL Normal 80.0-98.0 [facility] Comment on above: Performed By: #### L [id number] ####Assistant Coach: MERCEDES GARCIA ([phone])[facility])[address] [place] [address] Monocytes (Bld) [#/Vol] 0.9 10*3/uL High 0.0-0.8 [facility] Comment on above: Performed By: #### L [id number] ####Assistant Coach: MERCEDES GARCIA ([id number])[facility] ([facility])[address] [place] [address] Monocytes/100 WBC (Bld) 11.2 % High 2.0-10.0 [facility] Comment on above: Performed By: #### L [id number] ####Assistant Coach: MERCEDES GARCIA ([id number])[facility])[address] [place] [address] Neutrophils (Bld) [#/Vol] 4.2 10*3/uL Normal 1.8-7.0 [facility] Comment on above: Performed By: #### L [id number] ####Assistant Coach: MERCEDES GARCIA ([phone])[facility])[address] [place] [address] Neutrophils/100 WBC (Bld) 54.1 % Normal 40.0-80.0 [facility] Comment on above: Performed By: #### L [id number] ####Assistant Coach: MERCEDES GARCIA ([id number])[facility])[address] [place] [address] NRBC (PER 100 WBCS) BY AUTOMATED COUNT 0.1 /100 WBCs Normal 0.0-2.0 [facility] Comment on above: Performed By: #### L [id number] ####Assistant Coach: MERCEDES GARCIA ([phone])[facility])[address] [place] [address] Platelet mean volume (Bld) [Entitic vol] 9.0 fL Normal 7.4-12.4 [facility] Comment on above: Performed By: #### L [id number] ####Assistant Coach: MERCEDES GARCIA ([id number])[facility] ([facility])[address] [place] [address] Platelets (Bld) [#/Vol] 188 10*3/uL Normal 140-440 [facility] Comment on above: Performed By: #### L [id number] ####Assistant Coach: MERCEDES GARCIA ([phone])[facility] ([facility])[address] [place] [address] RBC (Bld) [#/Vol] 4.23 10*6/uL Normal 3.8-5.20 [facility] Comment on above: Performed By: #### L [id number] ####Assistant Coach: MERCEDES GARCIA ([phone])[facility] ([facility])[address] [place] [address] WBC (Bld) [#/Vol] 7.7 10*3/uL Normal 3.6-10.7 [facility] Comment on above: Performed By: #### L [id number] ####Assistant Coach: MERCEDES GARCIA ([id number])[facility] ([facility])[address] [place] [address] [facility] 04-30-2023 Albumin [Mass/Vol] 3.8 g/dL Normal 3.5-5.0 [facility] Comment on above: Performed By: #### L AB113, FRZ293, LAB18, FKN581, LAB17, HPF267, [id number] #### Assistant Coach: MERCEDES GARCIA ([id number]) [facility] ([facility]) [address] [place] [address] ALP [Catalytic activity/Vol] 49 U/L Normal 38-126 [facility] Comment on above: Performed By: #### L AB113, TOL055, LAB18, ETO686, LAB17, FJW390, [id number] #### Assistant Coach: MERCEDES GARCIA ([phone]) [facility] ([facility]) [address] [place] [address] ALT [Catalytic activity/Vol] 18 U/L Normal 0-34 [facility] Comment on above: Performed By: #### L AB113, [id number], LAB18, NMX743, LAB17, INO834, [id number] #### Assistant Coach: MERCEDES GARCIA ([phone]) [facility] ([facility]) [address] [place] [address] Anion gap [Moles/Vol] 8 mmol/L Normal 3-13 [facility] Comment on above: Performed By: #### L AB113, MFR882, LAB18, SDU331, LAB17, AHT227, [id number] #### Assistant Coach: MERCEDES GARCIA ([id number]) [facility] ([facility]) [address] [place] [address] AST [Catalytic activity/Vol] 28 U/L Normal 15-46 [facility] Comment on above: Performed By: #### L AB113, QCJ395, LAB18, CKN084, LAB17, ENB881, [id number] #### Assistant Coach: MERCEDES GARCIA ([id number]) [facility] ([facility]) [address] [place] [address] Bilirubin [Mass/Vol] 0.4 mg/dL Normal 0.2-1.3 [facility] Comment on above: Performed By: #### L AB113, UAJ716, LAB18, XLJ650, LAB17, GSQ072, [id number] #### Assistant Coach: MERCEDES GARCIA ([id number]) [facility] ([facility]) [address] [place] [address] Calcium [Mass/Vol] 8.7 mg/dL Normal 8.4-10.4 [facility] Comment on above: Performed By: #### L AB113, FQB760, LAB18, CZY345, LAB17, OGG970, [id number] #### Assistant Coach: MERCEDES GARCIA ([id number]) [facility]) [address] [place] [address] Chloride [Moles/Vol] 104 mmol/L Normal 98-107 [facility] Comment on above: Performed By: #### L AB113, HWK964, LAB18, PQX403, LAB17, CHD818, [id number] #### Assistant Coach: MERCEDES GARCIA ([id number]) [facility]) [address] [place] [address] CO2 [Moles/Vol] 24 mmol/L Normal 22-30 [facility] Comment on above: Performed By: #### L AB113, USI574, LAB18, RJO251, LAB17, ZYE087, [id number] #### Assistant Coach: MERCEDES GARCIA ([id number]) [facility]) [address] [place] [address] Creatinine [Mass/Vol] 0.71 mg/dL Normal 0.52-1.04 [facility] Comment on above: Performed By: #### L AB113, EPA918, LAB18, TIY648, LAB17, XTJ333, [id number] #### Assistant Coach: MERCEDES GARCIA ([id number]) [facility]) [address] [place] [address] GLOMERULAR FILTRATION RATE ML/MIN/1.73 SQ M.PREDICTED >90.0 Normal >60.0 [facility] Comment on above: Result Comment: Calc ulation based on the Chronic Kidney Disease Epidemiology Collaboration (CKD-EPI) equation refit without adjustment for race Performed By: #### L AB113, WCM565, LAB18, QKI065, LAB17, LPU829, [id number] #### Assistant Coach: MERCEDES GARCIA ([id number]) [facility] ([facility]) [address] [place] [address] Glucose [Mass/Vol] 125 mg/dL High 70-100 [facility] Comment on above: Performed By: #### L AB113, PRU868, LAB18, EJC813, LAB17, UUD042, [id number] #### Assistant Coach: MERCEDES GARCIA ([id number]) [facility]) [address] [place] [address] Potassium [Moles/Vol] 3.5 mmol/L Normal 3.5-5.1 [facility] Comment on above: Performed By: #### L AB113, NOF572, LAB18, BZC692, LAB17, EOS796, [id number] #### Assistant Coach: MERCEDES GARCIA ([id number]) [facility] ([facility]) [address] [place] [address] Protein [Mass/Vol] 6.3 g/dL Normal 6.3-8.2 [facility] Comment on above: Performed By: #### L AB113, QOW976, LAB18, BSL270, LAB17, ABW640, [id number] #### Assistant Coach: MERCEDES GARCIA ([id number]) [facility] ([facility]) [address] [place] [address] Sodium [Moles/Vol] 136 mmol/L Normal 135-145 [facility] Comment on above: Performed By: #### L AB113, TCS439, LAB18, BOI038, LAB17, MMT052, [id number] #### Assistant Coach: MERCEDES GARCIA ([id number]) [facility] ([facility]) [address] [place] [address] [place] Urea nitrogen [Mass/Vol] 10 mg/dL Normal 7-17 [facility] Comment on above: Performed By: #### L AB113, ASW884, LAB18, QHF380, LAB17, ZSC825, [id number] #### Assistant Coach: MERCEDES GARCIA ([phone]) [facility] ([facility]) [address] [place] [address] Cholesterol in LDL Direct as say [Mass/Vol]on 04-30-2023 Cholesterol in LDL [Mass/Vol] 84 mg/dL NINF - 100 mg/dL [facility] Interpretation and review of laboratory results Normal [facility] Comprehensive metabolic 1998 panelon 04-30-2023 Albumin [Mass/Vol] 3.8 g/dL 3.5 - 5.0 g/dL [facility] ALP [Catalytic activity/Vol] 49 U/L 38 - 126 U/L [facility] ALT [Catalytic activity/Vol] 18 U/L 0 - 34 U/L [facility] Anion gap [Moles/Vol] 8 mmol/L 3 - 13 mmol/L [facility] AST [Catalytic activity/Vol] 28 U/L 15 - 46 U/L [facility] Bilirubin [Mass/Vol] 0.4 mg/dL 0.2 - 1 .3 mg/dL [facility] Calcium [Mass/Vol] 8.7 mg/dL 8.4 - 10. 4 mg/dL [facility] Chloride [Moles/Vol] 104 mmol/L 98 - 10 7 mmol/L [facility] CO2 [Moles/Vol] 24 mmol/L 22 - 30 mmol/L [facility] Creatinine [Mass/Vol] 0.71 mg/dL 0.52 - 1.04 mg/dL [facility] GFR/1.73 sq M.predicted MDRD (S/P/Bld) [Vol rate/Area] - PINF [facility] Comment on above: Calculation based on the Chronic Kidney Disease Epidemiology Collaboration (CKD-EPI) equation refit without adjustment for race Glucose [Mass/Vol] 125 mg/dL High 70 - 100 mg/dL [facility] Interpretation and review of laboratory results Abnormal [facility] Potassium [Moles/Vol] 3.5 mmol/L 3.5 - 5.1 mmol/L [facility] Protein [Mass/Vol] 6.3 g/dL 6.3 - 8.2 g/dL [facility] Sodium [Moles/Vol] 136 mmol/L 135 - 145 mmol/L [facility] Urea nitrogen [Mass/Vol] 10 mg/dL 7 - 17 mg/dL [facility] HEMOGLOBIN A1Con 04-30-2023 Glucose [Mass/Vol] 148 mg/dL Normal [facility] Comment on above: Performed By: #### L AB90 ####Assistant Coach: MERCEDES GARCIA ([phone])[address] HbA1c (Bld) [Mass fraction] 6.8 % High <5.7 [facility] Comment on above: Result Comment: Norm al less than 5.7% Prediabetes 5.7% to 6.4% Diabetes 6.5% or higher --HgbA1C levels may not be accurate in patients who have renal disease, received recent blood transfusions, are anemic, or who have dyshemoglobinemia. Performed By: #### L AB90 ####Assistant Coach: MERCEDES GARCIA ([phone])[address] [place] [address] [place] LDL CHOLESTEROL DIRECTon LDL-CHOL, DIRECT 84 mg/dL Normal <100 [facility] Comment on above: Performed By: #### L AB325 #### Assistant Coach: MERCEDES GARCIA ([phone]) [facility] ([facility]) [address] [place] [address] LIPID PANELon 04-30-2023 Cholesterol [Mass/Vol] 193 mg/dL Normal <200 [facility] Comment on above: Performed By: #### L AB113, KNW303, LAB18, ATO725, LAB17, WGF295, [id number] #### Assistant Coach: MERCEDES GARCIA ([id number]) [facility] ([facility]) [address] [place] [address] Cholesterol in HDL [Mass/Vol] 36 mg/dL Low 40-60 [facility] Comment on above: Performed By: #### L AB113, HOR857, LAB18, LHV894, LAB17, VHK854, [id number] #### Assistant Coach: MERCEDES GARCIA ([id number]) [facility] ([facility]) [address] [place] [address] Cholesterol.total/Cho lesterol in HDL [Mass ratio] 5 {ratio} Normal [facility] Comment on above: Result Comment: Ref Range: < 3 Low Risk for CHD 3-6 Mod Risk for CHD > 6 High Risk for CHD Performed By: #### L AB113, IDA599, LAB18, UTP848, LAB17, KDR278, [id number] #### Assistant Coach: MERCEDES GARCIA ([id number]) [facility] ([facility]) [address] [place] [address] [place] LOW DENSITY LIPOPROTEIN Normal [facility] Comment on above: Result Comment: Calc ulated LDL invalid, triglycerides >400 mg/dl Performed By: #### L AB113, VJQ093, LAB18, RJY958, LAB17, ORL281, [id number] #### Assistant Coach: MERCEDES GARCIA ([id number]) [facility] ([facility]) [address] [place] [address] [place] Triglyceride [Mass/Vol] 463 mg/dL High <150 [facility] Comment on above: Performed By: #### L AB113, YCB925, LAB18, JPK807, LAB17, FRB068, [id number] #### Assistant Coach: MERCEDES GARCIA ([phone]) [facility] ([facility]) [address] [place] [address] Laboratory - Chemistry and C hemistry - challengeon 04-30-2023 Glucose [Mass/Vol] 197 mg/dL High 70 - 100 mg/dL [facility] Troponin I.cardiac [Mass/Vol] 0.058 ng/mL High NINF - 0.034 ng/mL [facility] Glucose [Mass/Vol] 136 mg/dL High 70 - 100 mg/dL [facility] Magnesium [Mass/Vol] 1.5 mg/dL Low 1.6 - 2 .3 mg/dL [facility] Troponin I.cardiac [Mass/Vol] 0.062 ng/mL High [facility] - 0.034 ng/mL [facility] Average glucose Estimated from glycated hemoglobin (Bld) [Mass/Vol] 148 mg/dL [facility] Laboratory - Hematology and Cell countson 04-30-2023 HbA1c (Bld) [Mass fraction] 6.8 % High NINF - 5.7 % [facility] Comment on above: Normal less than 5.7 % Prediabetes 5.7% to 6.4% Diabetes 6.5% or higher --HgbA1C levels may not be accurate in patients who have renal disease, received recent blood transfusions, are anemic, or who have dyshemoglobinemia. Lipid 1995 panelOrdered By: Vaishali Brenner on 04-30-2023 Cholesterol [Mass/Vol] 193 mg/dL NINF - 200 mg/dL [facility] Cholesterol in HDL [Mass/Vol] 36 mg/dL Low 40 - 60 mg/dL [facility] Cholesterol in LDL [Mass/Vol] [facility] Comment on above: Calculated LDL inval id, triglycerides >400 mg/dl Cholesterol.total/Cho lesterol in HDL [Mass ratio] 5 {ratio} [facility] Comment on above: Ref Range: < 3 Low Risk for CHD 3-6 Mod Risk for CHD > 6 High Risk for CHD Interpretation and review of laboratory results Abnormal [facility] Triglyceride [Mass/Vol] 463 mg/dL High NINF - 150 mg/dL [facility] MAGNESIUMon 04-30-2023 Magnesium [Mass/Vol] 1.5 mg/dL Low 1.6-2.3 [facility] Comment on above: Performed By: #### L AB325 #### Assistant Coach: MERCEDES GARCIA ([id number]) [facility] ([facility]) [address] [place] [address] [place] Magnesium [Mass/Vol]on 04-30 Interpretation and review of laboratory results Abnormal [facility] NT PRO BNPon 04-30-2023 Natriuretic peptide B (Bld) [Mass/Vol] 1770 pg/mL High <20-300 [facility] Comment on above: Performed By: #### L AB325 #### Assistant Coach: MERCEDES GARCIA ([id number]) [facility] ([facility]) [address] [place] [address] Natriuretic peptide B [Mass/ Vol]on 04-30-2023 Natriuretic peptide B (Bld) [Mass/Vol] 1770 pg/mL High <20 - 300 [facility] No Panel Informationon 04-30 Interpretation and review of laboratory results Abnormal [facility] Performed by: [facility], [address] [place] [address] CLIA ID: [id number] [facility] Interpretation and review of laboratory results Abnormal [facility] Performed by: [facility], [address] [place] [address] CLIA ID: [id number] [facility] Interpretation and review of laboratory results Abnormal [facility] Interpretation and review of laboratory results Abnormal [facility] Nursing Noteon 04-30-2023 Nursing Note Rapid at bedside. Pt states the chest discomfort is better, states dull ache at R shoulder but almost gone. Cont to monitor. Call light in reach. Normal [facility] Nursing Note Pt with 6/10 chest p ain and discomfort in R shoulder area. No SOB. Has nitroglycerin gtt infusing and heparin. S. [place] STUD SETTER notified. Also notified SBP ranging 150-170s. HR 56. Pt up in bed. Call light in reach. Cont to monitor. Paging Dr. Denis to notify also. Normal [facility] PHOSPHORUSon 04-30-2023 Phosphate [Mass/Vol] 4.5 mg/dL Normal 2.5-4.5 [facility] Comment on above: Performed By: #### L AB325 #### Assistant Coach: MERCEDES GARCIA ([phone]) [facility] ([facility]) [address] [place] [address] Phosphate [Moles/Vol]on 04-17 Interpretation and review of laboratory results Normal [facility] Phosphate [Mass/Vol] 4.5 mg/dL 2.5 - 4 .5 mg/dL [facility] Progress Noteon 04-30-2023 Progress Note ---- -------- Attestation signed by Chris Licona MD at 04/30/2023 8:42 PM I, Dr. Chris Licona, saw and evaluated the patient on 04/30/2023. I personally obtained the nicholson and critical portions of the history and physical exam. I reviewed the medical record including labs, imaging studies, and notes. I discussed the patient with the medical claims representative, and I agree with the resident's medical decision making. 68 y.o. female transferred from [place] for small non-STEMI with evidence of critical in-stent restenosis within prior SVG to [facility]. Stable coronary disease in remaining vessels as detailed in H&P. Successful PCI of SVG to RPDA today by Dr. Nieto with 2 LENA implanted (proximal and distal graft) using distal embolic protection. No significant no reflow. Patient tolerated well. Doing well post PCI. Continue medical management of small non-STEMI. Continue baby aspirin and Brilinta long-term. Intolerant to statins, but tolerating Zetia. Continue beta-alexandra. Continue diabetic regimen. Consider triglyceride lowering therapy and possible PCSK9 inhibitor as an outpatient. Potential discharge Saturday. Long-term follow-up with [place] cardiology. 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 LHC also revealed significant lesion in SVG to RCA. Patient was transferred to [facility] for possible PCI to SVG. Currently, patient is resting comfortably in bed. Patient has no acute complaints. Anticipating [facility] today for SVG intervention after lesion of RCA noted on 04/29 LHC. Review of Systems: Review of Systems Constitutional: Negative for chills, diaphoresis and fever. HENT: Negative for congestion, postnasal drip, rhinorrhea and sinus pain. Respiratory: Negative for cough and shortness of breath. Cardiovascular: Positive for chest pain (mild). Negative for leg swelling. Gastrointestinal: Negative for abdominal distention, abdominal pain and constipation. Endocrine: Negative for cold intolerance and heat intolerance. Genitourinary: Negative for difficulty urinating and dysuria. Musculoskeletal: Negative for arthralgias and myalgias. Skin: Negative for rash. Neurological: Negative for dizziness, weakness, numbness and headaches. Psychiatric/Behavioral: Negative for agitation and confusion. The patient is not nervous/anxious. Inpatient Medications: Scheduled Meds:ascorbic acid, 500 mg, Oral, Daily aspirin, 81 mg, Oral, Daily citalopram, 40 mg, Oral, Daily ezetimibe, 10 mg, Oral, Nightly ferrous sulfate, 325 mg, Oral, Daily with breakfast heparin, 4,000 Units, IntraVENous, Once losartan, 25 mg, Oral, Daily metoprolol succinate XL, 25 mg, Oral, Daily pregabalin, 150 mg, Oral, BID sodium chloride 0.9%, 5-40 mL, IntraVENous, q12h sodium chloride 0.9%, 5-40 mL, IntraVENous, q12h Continuous Infusions:heparin, 5-30 Units/kg/hr, Last Rate: Stopped (04/30/23 1145) nitroglycerin, 5-200 mcg/min, Last Rate: Stopped (04/30/23 1145) Objective: Physical Examination: BP (!) 150/59 Pulse 55 Temp 36.3 ?C (97.4 ?F) (Temporal) Resp 13 Ht 1.651 m (5' 5) Wt 87.1 kg (192 lb) SpO2 99% BMI 31.95 kg/m? Intake/Output Summary (Last 24 hours) at 04/30/2023 1303 Last data filed at 04/30/2023 1245 Gross per 24 hour Intake -- Output 5 ml Net -5 ml Physical Exam Vitals and nursing note reviewed. Constitutional: General: She is not in acute distress. Appearance: Normal appearance. HENT: Right Ear: External ear normal. Left Ear: External ear normal. Mouth/Throat: Mouth: Mucous membranes are moist. Pharynx: Oropharynx is clear. Eyes: Conjunctiva/sclera: Conjunctivae normal. Pupils: Pupils are equal, round, and reactive to light. Cardiovascular: Rate and Rhythm: Normal rate and regular rhythm. Heart sounds: Normal heart sounds. No murmur heard. No friction rub. No gallop. Pulmonary: Effort: Pulmonary effort is normal. No respiratory distress. Breath sounds: Normal breath sounds. No wheezing. Abdominal: General: Bowel sounds are normal. Palpations: Abdomen is soft. There is no mass. Musculoskeletal: Right lower leg: No edema. Left lower leg: No edema. Lymphadenopathy: Cervical: No cervical adenopathy. Neurological: Mental Status: She is alert and oriented to person, place, and time. Psychiatric: Mood and Affect: Mood normal. Behavior: Behavior normal. Pertinent Labs: BMP: (more content not included)... Normal [facility] Progress Note Contacted by nursing staff and informed that patient with recurrent chest pain and increased dyspnea. Patient with increase in SBP into the 170s, at one point with SBP to 200 per report. Repeat EKG ordered, similar to prior. Stat troponin requested. I reported to bedside to assess the patient. She was resting comfortably but reported that she did have a recurrence of her chest pain - was chest pain free on admission. CXR ordered. Await stat troponin. Will start low dose nitroglycerin gtt. Normal [facility] Respiratory pathogens DNA an d RNA panel NIEVES+non-probe (Nph)on 04-30-2023 Adenovirus Not detected Not Detected [facility] B. pertussis DNA NIEVES+probe Ql (Unsp spec) Not detected Not Detected [facility] Bordetella parapertussis Not detected Not Detected [facility] Chlamydia pneumoniae Not detected Not Detected [facility] Coronavirus 229E Not detected Not Detected [facility] Coronavirus HKU1 Not detected Not Detected [facility] Coronavirus NL63 Not detected Not Detected [facility] Coronavirus OC43 Not detected Not Detected [facility] FLUAV RNA NIEVES+non-probe Ql (Nph) Not detected Not Detected [facility] FLUBV RNA NIEVES+non-probe Ql (Nph) Not detected Not Detected [facility] Human Metapneumovirus Not detected Not Detected [facility] Human Rhinovirus/Enteroviru s Detected Abnormal Not Detected [facility] Interpretation and review of laboratory results Abnormal [facility] Mycoplasma pneumoniae Not detected Not Detected [facility] Parainfluenza 1 Not detected Not Detected [facility] Parainfluenza 2 Not detected Not Detected [facility] Parainfluenza 3 Not detected Not Detected [facility] Parainfluenza 4 Not detected Not Detected [facility] Respiratory Syncytial Virus Not detected Not Detected [facility] SARS-CoV-2 (COVID-19) RNA NIEVES+non-probe Ql (Nph) Not detected Not Detected [facility] Methodology: Multipl ex PCR [facility] SARS-COV-2 AND RESPIRATORY P CR PANELon 04-30-2023 SARS-CoV-2 (COVID-19) RNA NIEVES+probe Ql (Unsp spec) SARS-COV-2 Reference Not Detected Not Detected ADENOVIRUS Reference Not Detected Not Detected CORONAVIRUS HKU1 Reference Not Detected Not Detected CORONAVIRUS NL63 Reference Not Detected Not Detected CORONAVIRUS 229E Reference Not Detected Not Detected CORONAVIRUS OC43 Reference Not Detected Not Detected HUMAN METAPNEUMOVIRUS Reference Not Detected Not Detected HUMAN RHINOVIRUS/ENTEROVIRUS (A) Reference Detected Not Detected INFLUENZA A Reference Not Detected Not Detected INFLUENZA B Reference Not Detected Not Detected PARAINFLUENZA 1 Reference Not Detected Not Detected PARAINFLUENZA 2 Reference Not Detected Not Detected PARAINFLUENZA 3 Reference Not Detected Not Detected PARAINFLUENZA 4 Reference Not Detected Not Detected RESPIRATORY SYNCYTIAL VIRUS Reference Not Detected Not Detected BORDETELLA PERTUSSIS Reference Not Detected Not Detected BORDETELLA PARAPERTUSSIS Reference Not Detected Not Detected CHLAMYDIA PNEUMONIAE Reference Not Detected Not Detected MYCOPLASMA PNEUMONIAE Reference Not Detected Not Detected ORDER COMMENTS: Methodology: Multiplex PCR Normal [facility] Comment on above: Performed By: #### L [id number] #### Assistant Coach: MERCEDES GARCIA ([id number]) [facility] ([facility]) [address] [place] [address] [place] TROPONIN Ion 04-30-2023 Troponin I.cardiac [Mass/Vol] 0.058 ng/mL High <0.034 [facility] Comment on above: Result Comment: LONNY Vega COMMENTS: Patients with high levels of Biotin oral intake (ie >5 mg/day) may have falsely decreased Troponin levels. Performed By: #### L [id number] #### Assistant Coach: MERCEDES GARCIA ([id number]) [facility] ([facility]) [address] [place] [address] [place] TROPONIN, WITH SERIAL REFLEX on 04-30-2023 Troponin I.cardiac [Mass/Vol] 0.062 ng/mL High <0.034 [facility] Comment on above: Result Comment: LONNY Vega COMMENTS: Patients with high levels of Biotin oral intake (ie >5 mg/day) may have falsely decreased Troponin levels. Performed By: #### L [id number] #### Assistant Coach: MERCEDES GARCIA ([id number]) [facility] ([facility]) [address] [place] [address] [place] Troponin I.cardiac [Mass/Vol ]on 04-30-2023 Interpretation and review of laboratory results Abnormal [facility] Patients with high levels of Biotin oral intake (ie >5 mg/day) may have falsely decreased Troponin levels. [facility] Patients with high levels of Biotin oral intake (ie >5 mg/day) may have falsely decreased Troponin levels. [facility] XR Chest Single viewon 04-30 Patient Name: ELSA WILLINGHAM : 1955 Exam Date/Time: 04/30/2023 04:11 Procedure: XR CHEST 1 VIEW Ordering Provider: HERNANDEZ LEANNE Reason For Exam: DYSPNEA HISTORY: Dyspnea Frontal view the chest shows no definite acute infiltrate mass or pleural effusion. Normal heart size with atherosclerosis aorta with prior chest surgery with right coronary artery stents Report Dictated on Electronically Signed By: Reilly Wells MD Electronically Signed Date/Time: 04/30/2023 4:04 AM [facility] Reilly Wells MD - 04/30/2023 Patient Name: ELSA PUGH : 1955 Exam Date/Time: 04/30/2023 04:11 Procedure: XR CHEST 1 VIEW Ordering Provider: HERNANDEZ LEANNE Reason For Exam: DYSPNEA HISTORY: Dyspnea Frontal view the chest shows no definite acute infiltrate mass or pleural effusion. Normal heart size with atherosclerosis aorta with prior chest surgery with right coronary artery stents Report Dictated on Electronically Signed By: Reilly Wells MD Electronically Signed Date/Time: 04/30/2023 4:04 AM EST [facility] Radiology Study observation (narrative) [facility] XR Chest Single viewOrdered By: Reilly Wells on 04-30-2023 [facility] Work Phone: aPTT Coag (Bld) [Time]on aPTT Coag (PPP) [Time] 35.6 s High 20.0 - 30.5 s [facility] Interpretation and review of laboratory results Abnormal [facility] NOTE: The therapeuti c time for Heparin anticoagulation, based on Xa activity inhibition, is an APTT of 46-80 seconds. [facility] aPTT Coag (PPP) [Time] 30.9 s High 20.0 - 30.5 s [facility] Interpretation and review of laboratory results Abnormal [facility] NOTE: The therapeuti c time for Heparin anticoagulation, based on Xa activity inhibition, is an APTT of 46-80 seconds. [facility] APTTon 04-29-2023 aPTT Coag (Bld) [Time] 25.6 s Normal 20.0-30.5 [facility] Comment on above: Result Comment: LONNY Vega COMMENTS: NOTE: The therapeutic time for Heparin anticoagulation, based on Xa activity inhibition, is an APTT of 46-80 seconds. Performed By: #### L [id number] ####Assistant Coach: MERCEDES GARCIA ([phone])[facility] ([facility])[address] [place] [address] Absolute lymphocyte countOrd ered By: Javier Smith on 04-29-2023 Lymphocytes Auto (Unsp spec) [#/Vol] 2.99 10*3/uL 0.83-4.51 [facility] Basophil percentageOrdered B y: Javier Smith on 04-29-2023 Basophils/100 WBC (Bld) 0.3 % 0-1 [facility] Chloride [Moles/Vol] 107 mmol/L 98-107 [facility] Eosinophils/100 WBC (Bld) 1.0 % 0-5 [facility] Glucose [Mass/Vol] 129 mg/dL 74-106 [facility] Comment on above: Fasting Glucose resu lt greater than or equal to 126 mg/dL suggests DIABETES MELLITUS per A.D.A. criteria. Neutrophils (Bld) [#/Vol] 5.2 10*3/uL 2.0-7.7 [facility] Neutrophils/100 WBC (Bld) 56.8 % 47-70 [facility] Potassium [Moles/Vol] 3.5 mmol/L 3.5-5.1 [facility] Sodium [Moles/Vol] 141 mmol/L 136-145 [facility] WBC (Bld) [#/Vol] 9.1 10*3/uL 4.4-11.0 [facility] Blood erythrocytes count (nu mber/volume)Ordered By: Javier Smith on 04-29-2023 RBC (Bld) [#/Vol] 3.97 10*6/uL 4.2-5.4 [facility] Blood hemoglobin measurement (mass/volume)Ordered By: Javier Smith on 04-29-2023 Hemoglobin (Bld) [Mass/Vol] 11.5 g/dL 12.0-15.0 [facility] Blood lymphocytes/100 leukoc ytesOrdered By: Javier Smith on 04-29-2023 Lymphocytes/100 WBC (Bld) 33.0 % 19-41 [facility] Blood monocytes/100 leukocyt esOrdered By: Javier Smith on 04-29-2023 Monocytes/100 WBC (Bld) 8.3 % 0-10 [facility] Blood platelet mean volumeOr dered By: Javier Smith on 04-29-2023 Platelet mean volume (Bld) [Entitic vol] 11.1 fL 6.2-12.0 [facility] Determination of erythrocyte mean corpuscular volume (MCV)Ordered By: Javier Smith on 04-29-2023 MCV (RBC) [Entitic vol] 92.7 fL 81-99 [facility] Glucose Glucometer (BldC) [M ass/Vol]Ordered By: Helio Yuen on 04-29-2023 Glucose [Mass/Vol] 112 mg/dL 74-106 [facility] Comment on above: MANAGEMENT OF PATIEN T CARE PER NURSING PROTOCOL Hematocrit Auto (Bld) [Volum e fraction]Ordered By: Javier Smith on 04-29-2023 Hematocrit (Bld) [Volume fraction] 36.8 % 37-47 [facility] Laboratory - Chemistry and C hemistry - challengeon 04-29-2023 Glucose [Mass/Vol] 161 mg/dL High 70 - 100 mg/dL [facility] Glucose [Mass/Vol] 96 mg/dL 70 - 100 mg/dL [facility] Laboratory - Chemistry and C hemistry - challengeOrdered By: Javier Smith on 04-29-2023 CO2 [Moles/Vol] 28.0 mmol/L 21.0-32.0 [facility] Urea nitrogen/Creatinine [Mass ratio] 16.6 mg/mg 10-20 [facility] Laboratory - CoagulationOrde red By: Javier Smith on 04-29-2023 aPTT Coag (Bld) [Time] 65.4 s 24.1-36.2 [facility] Laboratory - Hematology and Cell countsOrdered By: Javier Smith on 04-29-2023 Erythrocyte distribution width (RBC) [Entitic vol] 46.5 fL 35.1-43.9 [facility] Erythrocyte distribution width (RBC) [Ratio] 13.6 % 11.6-14.6 [facility] Immature granulocytes/100 WBC (Bld) 0.600 % 0.0-0.9 [facility] Comment on above: IG% - Immature Granu locytes (promyelocytes, myelocytes and metamyelocytes) > 1% indicates that a LEFT SHIFT is Present. MCH (RBC) [Entitic mass] 29.0 pg 27.0-32.0 [facility] Nucleated RBC/100 WBC (Bld) [Ratio] 0 % 0-5 [facility] MCHC Auto (RBC) [Mass/Vol]Or dered By: Javier Smith on 04-29-2023 MCHC (RBC) [Mass/Vol] 31.3 g/dL 32-36 [facility] No Panel Informationon 04-29 Interpretation and review of laboratory results Abnormal [facility] Performed by: [facility], [address] [place] [address] CLIA ID: [id number] [facility] Interpretation and review of laboratory results Normal [facility] Performed by: [facility], [address] [place] [address] CLIA ID: [id number] [facility] No Panel InformationOrdered By: Helio Yuen on 04-29-2023 Activated Clotting Time 155 sec 74-137 [facility] No Panel InformationOrdered By: Javier Smith on 04-29-2023 Estimated Creatinine Clearance Calc 47.78 ml/min [facility] Estimated GFR (MDRD) Amer 94 mL/min >60 [facility] Comment on above: GFR Calc Estimated GFR (MDRD) Non-Af Amer 78 mL/min >60 [facility] Comment on above: Non- GFR Calc Nursing Noteon 04-29-2023 Nursing Note 1822 pt arrived from [place] heparin drip running at 800 units/8ml/hr pt pulled over in bed radial site intact, right femoral site has pressure dressing intact pt denies pain, no apparent distress, messaged primary team for orders 1826 pt states she has many allergies but cannot recall all of them, states her boyfriend can bring in a list tomorrow, also states she cannot recall all her meds but some I wish my head was clearer states her boyfriend can try to take a picture of them tonight if he knows how to or he can bring the list in tomorrow Normal [facility] Platelets bldOrdered By: Steve Smith on 04-29-2023 Platelets (Bld) [#/Vol] 214 10*3/uL 150-450 [facility] Serum or plasma calcium esther urement (mass/volume)Ordered By: Javier Smith on 04-29-2023 Calcium [Mass/Vol] 8.3 mg/dL 8.5-10.1 [facility] Serum or plasma creatinine m easurement (mass/volume)Ordered By: Javier Smith on 04-29-2023 Creatinine [Mass/Vol] 0.78 mg/dL 0.55-1.02 [facility] Comment on above: The validity of the calculated GFR & GFRAA in patients over 70 years has not been determined. Clinical correlation is essential. Serum or plasma urea nitroge n measurement (mass/volume)Ordered By: Javier Smith on 04-29-2023 Urea nitrogen [Mass/Vol] 13 mg/dL 7-18 [facility] Thin prep Papanicolaou smear with manual screeningOrdered By: Javier Smith on 04-29-2023 Thin prep Papanicolaou smear with manual screening 6 5-15 [facility] aPTT Coag (Bld) [Time]on aPTT Coag (PPP) [Time] 25.6 s 20.0 - 30.5 s [facility] Interpretation and review of laboratory results Normal [facility] NOTE: The therapeuti c time for Heparin anticoagulation, based on Xa activity inhibition, is an APTT of 46-80 seconds. [facility] Absolute lymphocyte countOrd ered By: Usha Santos on 04-27-2023 Lymphocytes Auto (Unsp spec) [#/Vol] 3.05 10*3/uL 0.83-4.51 [facility] Basophil percentageOrdered B y: Usha Santos on 04-27-2023 Basophils/100 WBC (Bld) 0.4 % 0-1 [facility] Chloride [Moles/Vol] 98 mmol/L 98-107 [facility] Eosinophils/100 WBC (Bld) 1.1 % 0-5 [facility] Glucose [Mass/Vol] 146 mg/dL 74-106 [facility] Comment on above: Fasting Glucose resu lt greater than or equal to 126 mg/dL suggests DIABETES MELLITUS per A.D.A. criteria. Neutrophils (Bld) [#/Vol] 6.8 10*3/uL 2.0-7.7 [facility] Neutrophils/100 WBC (Bld) 59.1 % 47-70 [facility] Potassium [Moles/Vol] 3.3 mmol/L 3.5-5.1 [facility] Sodium [Moles/Vol] 135 mmol/L 136-145 [facility] WBC (Bld) [#/Vol] 11.5 10*3/uL 4.4-11.0 [facility] Blood erythrocytes count (nu mber/volume)Ordered By: Usha Santos on 04-27-2023 RBC (Bld) [#/Vol] 4.67 10*6/uL 4.2-5.4 [facility] Blood hemoglobin measurement (mass/volume)Ordered By: Usha Santos on 04-27-2023 Hemoglobin (Bld) [Mass/Vol] 13.8 g/dL 12.0-15.0 [facility] Blood lymphocytes/100 leukoc ytesOrdered By: Usha Santos on 04-27-2023 Lymphocytes/100 WBC (Bld) 26.5 % 19-41 [facility] Blood monocytes/100 leukocyt esOrdered By: Usha Santos on 04-27-2023 Monocytes/100 WBC (Bld) 12.5 % 0-10 [facility] Blood platelet mean volumeOr dered By: Usha Santos on 04-27-2023 Platelet mean volume (Bld) [Entitic vol] 11.0 fL 6.2-12.0 [facility] COVID-19 virus antigen assay Ordered By: Chris Edge on 04-27-2023 SARS-CoV-2 (COVID-19) Ag IA.rapid Ql (Resp) [facility] Determination of erythrocyte mean corpuscular volume (MCV)Ordered By: Usha Santos on 04-27-2023 MCV (RBC) [Entitic vol] 90.1 fL 81-99 [facility] Hematocrit Auto (Bld) [Volum e fraction]Ordered By: Usha Santos on 04-27-2023 Hematocrit (Bld) [Volume fraction] 42.1 % 37-47 [facility] INR in Blood by Coagulation assayOrdered By: Usha Santos on 04-27-2023 INR Coag (Bld) [Relative time] 1.1 {INR} [facility] Laboratory - Chemistry and C hemistry - challengeOrdered By: Usha Santos on 04-27-2023 CO2 [Moles/Vol] 32.0 mmol/L 21.0-32.0 [facility] Magnesium [Mass/Vol] 1.7 mg/dL 1.6-2.6 [facility] Urea nitrogen/Creatinine [Mass ratio] 17.5 mg/mg 10-20 [facility] Laboratory - CoagulationOrde red By: Usha Santos on 04-27-2023 aPTT Coag (Bld) [Time] 33.4 s 24.1-36.2 [facility] PT Coag (PPP) [Time] 14.1 s 11.7-14.9 [facility] Laboratory - Hematology and Cell countsOrdered By: Usha Santos on 04-27-2023 Erythrocyte distribution width (RBC) [Entitic vol] 44.8 fL 35.1-43.9 [facility] Erythrocyte distribution width (RBC) [Ratio] 13.4 % 11.6-14.6 [facility] Immature granulocytes/100 WBC (Bld) 0.400 % 0.0-0.9 [facility] Comment on above: IG% - Immature Granu locytes (promyelocytes, myelocytes and metamyelocytes) > 1% indicates that a LEFT SHIFT is Present. MCH (RBC) [Entitic mass] 29.6 pg 27.0-32.0 [facility] Nucleated RBC/100 WBC (Bld) [Ratio] 0 % 0-5 [facility] MCHC Auto (RBC) [Mass/Vol]Or dered By: Usha Santos on 04-27-2023 MCHC (RBC) [Mass/Vol] 32.8 g/dL 32-36 [facility] No Panel InformationOrdered By: Chris Edge on 04-27-2023 Troponin I High Sensitivity 212 pg/mL 3.0-54.0 [facility] Comment on above: Critical Result(s) C alled at: 01:16:36 04/28/2023 by: Jared Jacobsen to Kylah Nelson. Results read back by same. Please Note: New Test Units and Gender Specific Reference Ranges. For more information see Policy Stat Procedure [place] High Sensitivity Troponin (TNIH) and attachments. No Panel InformationOrdered By: Usha Santos on 04-27-2023 Estimated Creatinine Clearance Calc 46.39 ml/min [facility] Estimated GFR (MDRD) Amer 68 mL/min >60 [facility] Comment on above: GFR Calc Estimated GFR (MDRD) Non-Af Amer 56 mL/min >60 [facility] Comment on above: Non- GFR Calc Troponin I High Sensitivity 582 pg/mL 3.0-54.0 [facility] Comment on above: Critical Result(s) C alled at: 12:02:59 04/27/2023 by: Martin Swann to Dann CASTRO (ER). Results read back by same. Please Note: New Test Units and Gender Specific Reference Ranges. For more information see Policy Stat Procedure [place] High Sensitivity Troponin (TNIH) and attachments. Platelets bldOrdered By: Brooke Santos on 04-27-2023 Platelets (Bld) [#/Vol] 263 10*3/uL 150-450 [facility] Serum or plasma calcium esther urement (mass/volume)Ordered By: Usha Santos on 04-27-2023 Calcium [Mass/Vol] 9.2 mg/dL 8.5-10.1 [facility] Serum or plasma creatinine m easurement (mass/volume)Ordered By: Usha Santos on 04-27-2023 Creatinine [Mass/Vol] 1.03 mg/dL 0.55-1.02 [facility] Comment on above: The validity of the calculated GFR & GFRAA in patients over 70 years has not been determined. Clinical correlation is essential. Serum or plasma urea nitroge n measurement (mass/volume)Ordered By: Usha Santos on 04-27-2023 Urea nitrogen [Mass/Vol] 18 mg/dL 7-18 [facility] Thin prep Papanicolaou smear with manual screeningOrdered By: Usha Santos on 04-27-2023 Thin prep Papanicolaou smear with manual screening 5 5-15 [facility] DXA-AXIAL SKELETONon 04-15- 023 [facility] GLUCOSE, BLOOD (POC)on 04-10 Glucose [Mass/Vol] 216 mg/dL Abnormal 74 - 99 mg/dL [facility] CT LUMBAR SPINE WO IVCONon 0 02-27-2023 [facility] MRI LUMBAR SPINE WO IVCONon 02-07-2023 [facility] XR Lumbar spine 3 Viewson IMPRESSION: Lumbar s pine degenerative changes with L5-S1 disc space narrowing County Attorney: [place] Transcribe Date/Time: Jan 21 2023 1:02P Dictated by : JEFFRY TAPIA MD This examination was interpreted and the report reviewed and electronically signed by: JEFFRY TAPIA MD on Jan 21 2023 1:04PM [facility] DIVISION OF RADIOLOGY * * *Final Report* * * DATE OF EXAM: Jan 18 2023 2:57PM WOX [id number] - XR LUMBAR 3V AP/LAT/L5-S1 / PROCEDURE REASON: Acute bilateral low back pain with left-sided sciatica * * * * Physician Interpretation * * * * EXAM TITLE: XR LUMBAR 3V AP/LAT/L5-S1 EXAM DATE/TIME: 01/18/2023 2:57 PM COMPARISON: None. CLINICAL INDICATION/HISTORY: Low back pain. TECHNIQUE: AP, lateral and cone down lateral views of the lumbar spine are presented. FINDINGS: There are five jzc-ktl-gtzrdcu lumbar vertebrae. No acute fracture seen. There is grade 1 L5 on S1 anterolisthesis. L5-S1 disc space narrowing is demonstrated. There is mild osteophyte formation, with facet arthrosis. Kissing spine seen on lateral view. There is ossification of the iliolumbar ligaments. DIVISION OF RADIOLOGY Provider, Bev Zimmerman - 01/21/2023 * * *Final Report* * * DATE OF EXAM: Jan 18 2023 2:57PM WOX [id number] - XR LUMBAR 3V AP/LAT/L5-S1 / PROCEDURE REASON: Acute bilateral low back pain with left-sided sciatica * * * * Physician Interpretation * * * * EXAM TITLE: XR LUMBAR 3V AP/LAT/L5-S1 EXAM DATE/TIME: 01/18/2023 2:57 PM COMPARISON: None. CLINICAL INDICATION/HISTORY: Low back pain. TECHNIQUE: AP, lateral and cone down lateral views of the lumbar spine are presented. FINDINGS: There are five tbl-crx-tswfzgy lumbar vertebrae. No acute fracture seen. There is grade 1 L5 on S1 anterolisthesis. L5-S1 disc space narrowing is demonstrated. There is mild osteophyte formation, with facet arthrosis. Kissing spine seen on lateral view. There is ossification of the iliolumbar ligaments. IMPRESSION IMPRESSION: Lumbar spine degenerative changes with L5-S1 disc space narrowing County Attorney[facility] Transcribe Date/Time: Jan 21 2023 1:02P Dictated by : JEFFRY TAPIA MD This examination was interpreted and the report reviewed and electronically signed by: JEFFRY TAPIA MD on Jan 21 2023 1:04PM EST [facility] XR Lumbar spine 3 ViewsOrder ed By: [facility] Provider on 01-21-2023 [facility] XR Lumbar spine 3 Viewson Radiology Study observation (narrative) [facility] XR Pelvis and Hip - left AP and Lateral frogon 01-10-2023 IMPRESSION: No acute osseous findings. Left hip joint is maintained. Additional chronic changes as detailed. County Attorney: [facility] Transcribe Date/Time: Jan 10 2023 2:40P Dictated by : SARAH LOPEZ MD This examination was interpreted and the report reviewed and electronically signed by: SARAH LOPEZ MD on Jan 10 2023 2:41PM [facility] DIVISION OF RADIOLOGY * * *Final Report* * * DATE OF EXAM: Jan 08 2023 12:08PM WOX [id number] - XR HIP 3V PELV+ AP/LAT LT / PROCEDURE REASON: Hip pain, left * * * * Physician Interpretation * * * * EXAMINATION: XR HIP 3V PELV+ AP/LAT LT CLINICAL HISTORY: Left hip pain that has been getting more painful recently. No known injury. Hip pain, left Technique: XR HIP 3V PELV+ AP/LAT LT -- LEFT with 3 views on 3 images Comparison: None RESULT: No fracture or dislocation. Left hip joint is maintained. No significant osteophytosis. No erosions or chondrocalcinosis. SI joints and pubic symphysis are intact. Degenerative changes in the lower lumbar spine. Coarse chronic calcification of bilateral iliolumbar ligaments. DIVISION OF RADIOLOGY Provider, [facility] - 01/10/2023 * * *Final Report* * * DATE OF EXAM: Jan 08 2023 12:08PM WOX [id number] - XR HIP 3V PELV+ AP/LAT LT / PROCEDURE REASON: Hip pain, left * * * * Physician Interpretation * * * * EXAMINATION: XR HIP 3V PELV+ AP/LAT LT CLINICAL HISTORY: Left hip pain that has been getting more painful recently. No known injury. Hip pain, left Technique: XR HIP 3V PELV+ AP/LAT LT -- LEFT with 3 views on 3 images Comparison: None RESULT: No fracture or dislocation. Left hip joint is maintained. No significant osteophytosis. No erosions or chondrocalcinosis. SI joints and pubic symphysis are intact. Degenerative changes in the lower lumbar spine. Coarse chronic calcification of bilateral iliolumbar ligaments. IMPRESSION IMPRESSION: No acute osseous findings. Left hip joint is maintained. Additional chronic changes as detailed. County Attorney: [place] Transcribe Date/Time: Jan 10 2023 2:40P Dictated by : SARAH LOPEZ MD This examination was interpreted and the report reviewed and electronically signed by: SARAH LOPEZ MD on Jan 10 2023 2:41PM [facility] XR Pelvis and Hip - left AP and Lateral frogOrdered By: Ccf Provider on 01-10-2023 [facility] XR Pelvis and Hip - left AP and Lateral frogon 01-08-2023 Radiology Study observation (narrative) [facility] Urinalysis complete panel (U )on 12-03-2022 Bilirubin Ql (U) Negative Negative [facility] Clarity (Unsp spec) Cloudy Abnormal Clear [facility] Color (U) Yellow Yellow [facility] Epithelial cells LM.HPF (Urine sed) [#/Area] Few [facility] Glucose Test strip (U) [Mass/Vol] 4+ Abnormal Trace, Negative [facility] Hemoglobin Ql (U) Negative Negative, Trace [facility] Ketones Ql (U) Negative Trace, Negative [facility] Leukocyte esterase Test strip Ql (U) 500 Snehal/uL Abnormal Negative, 25 Snehal/uL [facility] Nitrite Ql (U) Negative Negative [facility] pH (U) 5.5 [pH] 5.0 - 8.0 [facility] Protein (U) [Mass/Vol] 1+ Abnormal Trace, Negative [facility] RBC LM.HPF (Urine sed) [#/Area] 3-5 /HPF Abnormal 0-3 /HPF [facility] Specific gravity (U) [Rel density] 1.025 1.005 - 1.030 [facility] Urobilinogen Ql (U) Negative Negative [facility] WBC LM.HPF (Urine sed) [#/Area] /[HPF] Abnormal 0-5 /HPF [facility] Absolute lymphocyte countOrd ered By: Sofy Snow on 10-23-2022 Lymphocytes Auto (Unsp spec) [#/Vol] 1.53 10*3/uL 0.83-4.51 [facility] Basophil percentageOrdered B y: Sofy Snow on 10-23-2022 Basophils/100 WBC (Bld) 0.5 % 0-1 [facility] Chloride [Moles/Vol] 105 mmol/L 98-107 [facility] Eosinophils/100 WBC (Bld) 1.2 % 0-5 [facility] Glucose [Mass/Vol] 234 mg/dL 74-106 [facility] Comment on above: Glucose result great er than or equal to 200 mg/dLsuggests DIABETES MELLITUS per A.D.A. criteria. Neutrophils (Bld) [#/Vol] 3.5 10*3/uL 2.0-7.7 [facility] Neutrophils/100 WBC (Bld) 59.4 % 47-70 [facility] Potassium [Moles/Vol] 4.0 mmol/L 3.5-5.1 [facility] Sodium [Moles/Vol] 137 mmol/L 136-145 [facility] WBC (Bld) [#/Vol] 5.9 10*3/uL 4.4-11.0 [facility] Blood erythrocytes count (nu mber/volume)Ordered By: Sofy Snow on 10-23-2022 RBC (Bld) [#/Vol] 4.70 10*6/uL 4.2-5.4 [facility] Blood hemoglobin measurement (mass/volume)Ordered By: Sofy Snow on 10-23-2022 Hemoglobin (Bld) [Mass/Vol] 13.5 g/dL 12.0-15.0 [facility] Blood lymphocytes/100 leukoc ytesOrdered By: Sfoy Snow on 10-23-2022 Lymphocytes/100 WBC (Bld) 26.0 % 19-41 [facility] Blood monocytes/100 leukocyt esOrdered By: Sofy Snow on 10-23-2022 Monocytes/100 WBC (Bld) 12.2 % 0-10 [facility] Blood platelet mean volumeOr dered By: Sofy Snow on 10-23-2022 Platelet mean volume (Bld) [Entitic vol] 11.6 fL 6.2-12.0 [facility] Determination of erythrocyte mean corpuscular volume (MCV)Ordered By: Sofy Snow on 10-23-2022 MCV (RBC) [Entitic vol] 92.6 fL 81-99 [facility] Hematocrit Auto (Bld) [Volum e fraction]Ordered By: Sofy Snow on 10-23-2022 Hematocrit (Bld) [Volume fraction] 43.5 % 37-47 [facility] Laboratory - Chemistry and C hemistry - challengeOrdered By: Sofy Snow on 10-23-2022 CO2 [Moles/Vol] 25.0 mmol/L 21.0-32.0 [facility] Natriuretic peptide B (Bld) [Mass/Vol] 21.5 pg/mL 0-100 [facility] Urea nitrogen/Creatinine [Mass ratio] 10.5 mg/mg 10-20 [facility] Laboratory - Hematology and Cell countsOrdered By: Sofy Snow on 10-23-2022 Erythrocyte distribution width (RBC) [Entitic vol] 47.2 fL 35.1-43.9 [facility] Erythrocyte distribution width (RBC) [Ratio] 13.7 % 11.6-14.6 [facility] Immature granulocytes/100 WBC (Bld) 0.700 % 0.0-0.9 [facility] Comment on above: IG% - Immature Granu locytes (promyelocytes, myelocytes and metamyelocytes) > 1% indicates that a LEFT SHIFT is Present. MCH (RBC) [Entitic mass] 28.7 pg 27.0-32.0 [facility] Nucleated RBC/100 WBC (Bld) [Ratio] 0 % 0-5 [facility] MCHC Auto (RBC) [Mass/Vol]Or dered By: Sofy Snow on 10-23-2022 MCHC (RBC) [Mass/Vol] 31.0 g/dL 32-36 [facility] No Panel InformationOrdered By: Sofy Snow on 10-23-2022 Estimated GFR (MDRD) Amer 85 mL/min >60 [facility] Comment on above: GFR Calc Estimated GFR (MDRD) Non-Af Amer 70 mL/min >60 [facility] Comment on above: Non- GFR Calc Thyroid Stimulating Hormone (TSH) 2.45 uIU/mL 0.358-3.74 [facility] Vitamin D 25-Hydroxy 56.3 ng/mL [facility] Comment on above: Vitamin D 25(OH) Sta tus Range Deficiency <20 ng/mL (50nmol/L) Insufficiency 20 - 30 ng/mL (50 - 75 nmol/L) Sufficiency 30 - 100 ng/mL (75 - 250 nmol/L) Toxicity >100 ng/mL (>250 nmol/L) Platelets bldOrdered By: Maxime Snow on 10-23-2022 Platelets (Bld) [#/Vol] 226 10*3/uL 150-450 [facility] Serum or plasma calcium esther urement (mass/volume)Ordered By: Sofy Snow on 10-23-2022 Calcium [Mass/Vol] 8.7 mg/dL 8.5-10.1 [facility] Serum or plasma creatinine m easurement (mass/volume)Ordered By: Sofy Snow on 10-23-2022 Creatinine [Mass/Vol] 0.86 mg/dL 0.55-1.02 [facility] Comment on above: The validity of the calculated GFR & GFRAA in patients over 70 years has not been determined. Clinical correlation is essential. Serum or plasma urea nitroge n measurement (mass/volume)Ordered By: Sofy Snow on 10-23-2022 Urea nitrogen [Mass/Vol] 9 mg/dL 7-18 [facility] Thin prep Papanicolaou smear with manual screeningOrdered By: Sofy Snow on 10-23-2022 Thin prep Papanicolaou smear with manual screening 7 5-15 [facility] Absolute lymphocyte counton 05-29-2022 Lymphocytes Auto (Unsp spec) [#/Vol] 2.03 10*3/uL 0.83-4.51 [facility] Work Phone: Basophil percentageon 2021 Basophils/100 WBC (Bld) 0.3 % 0-1 [facility] Work Phone: Bilirubin [Mass/Vol] 0.30 mg/dL 0.20-1.00 [facility] Work Phone: Comment on above: For patients on eltr ombopag therapy, use of Dimension [place] TBIL is not recommended. Chloride [Moles/Vol] 103 mmol/L 98-107 [facility] Work Phone: Cholesterol [Mass/Vol] 253 mg/dL <200 [facility] Work Phone: [phone] Comment on above: <200 mg/dL Desirable 200-240 mg/dL Borderline >240 mg/dL High Risk Eosinophils/100 WBC (Bld) 1.2 % 0-5 [facility] Work Phone: [phone] Glucose [Mass/Vol] 193 mg/dL 74-106 [facility] Work Phone: Comment on above: Fasting Glucose resu lt greater than or equal to 126 mg/dL suggests DIABETES MELLITUS per A.D.A. criteria. Neutrophils (Bld) [#/Vol] 4.7 10*3/uL 2.0-7.7 [facility] Work Phone: [phone] Neutrophils/100 WBC (Bld) 62.2 % 47-70 [facility] Work Phone: Potassium [Moles/Vol] 4.2 mmol/L 3.5-5.1 [facility] Work Phone: Protein [Mass/Vol] 6.9 g/dL 6.4-8.2 [facility] Work Phone: Sodium [Moles/Vol] 139 mmol/L 136-145 [facility] Work Phone: [phone] Triglyceride [Mass/Vol] 305 mg/dL <199 [facility] Work Phone: Comment on above: The drugs N-Acetylcy steine and Metamizole may falsely depress this assay.Serum Triglycerides Reference Interval Normal <150 mg/dL Borderline high 150 - 199 mg/dL High 200 - 499 mg/dL Very High > or = 500 mg/dL WBC (Bld) [#/Vol] 7.6 10*3/uL 4.4-11.0 [facility] Work Phone: Blood erythrocytes count (nu mber/volume)on 05-29-2022 RBC (Bld) [#/Vol] 4.58 10*6/uL 4.2-5.4 [facility] Work Phone: Blood hemoglobin measurement (mass/volume)on 05-29-2022 Hemoglobin (Bld) [Mass/Vol] 13.8 g/dL 12.0-15.0 [facility] Work Phone: Blood lymphocytes/100 leukoc yteson 05-29-2022 Lymphocytes/100 WBC (Bld) 26.8 % 19-41 [facility] Work Phone: Blood monocytes/100 leukocyt eson 05-29-2022 Monocytes/100 WBC (Bld) 9.1 % 0-10 [facility] Work Phone: Blood platelet mean volumeon 05-29-2022 Platelet mean volume (Bld) [Entitic vol] 10.5 fL 6.2-12.0 [facility] Work Phone: Determination of erythrocyte mean corpuscular volume (MCV)on 05-29-2022 MCV (RBC) [Entitic vol] 90.6 fL 81-99 [facility] Work Phone: Hematocrit Auto (Bld) [Volum e fraction]on 05-29-2022 Hematocrit (Bld) [Volume fraction] 41.5 % 37-47 [facility] Work Phone: Laboratory - Chemistry and C hemistry - challengeon 05-29-2022 ALP [Catalytic activity/Vol] 68 U/L 45-117 [facility] Work Phone: ALT [Catalytic activity/Vol] 19 U/L 13-56 [facility] Work Phone: CO2 [Moles/Vol] 32.0 mmol/L 21.0-32.0 [facility] Work Phone: Globulin (S) [Mass/Vol] 3.2 g/dL 2.2-4.2 [facility] Work Phone: Urea nitrogen/Creatinine [Mass ratio] 12.1 mg/mg 10-20 [facility] Work Phone: Laboratory - Hematology and Cell countson 05-29-2022 Erythrocyte distribution width (RBC) [Entitic vol] 42.9 fL 35.1-43.9 [facility] Work Phone: Erythrocyte distribution width (RBC) [Ratio] 13.0 % 11.6-14.6 [facility] Work Phone: Immature granulocytes/100 WBC (Bld) 0.400 % 0.0-0.9 [facility] Work Phone: Comment on above: IG% - Immature Granu locytes (promyelocytes, myelocytes and metamyelocytes) > 1% indicates that a LEFT SHIFT is Present. MCH (RBC) [Entitic mass] 30.1 pg 27.0-32.0 [facility] Work Phone: Nucleated RBC/100 WBC (Bld) [Ratio] 0 % 0-5 [facility] Work Phone: MCHC Auto (RBC) [Mass/Vol]on 05-29-2022 MCHC (RBC) [Mass/Vol] 33.3 g/dL 32-36 [facility] [place] Work Phone: No Panel Informationon 05-29 Estimated GFR (MDRD) Amer 89 mL/min >60 [facility] Work Phone: Comment on above: GFR Calc Estimated GFR (MDRD) Non-Af Amer 73 mL/min >60 [facility] Work Phone: Comment on above: Non- GFR Calc Thyroid Stimulating Hormone (TSH) 3.26 uIU/mL 0.358-3.74 [facility] Work Phone: Vitamin D 25-Hydroxy 16.4 ng/mL [facility] Work Phone: Comment on above: Vitamin D 25(OH) Sta tus Range Deficiency <20 ng/mL (50nmol/L) Insufficiency 20 - 30 ng/mL (50 - 75 nmol/L) Sufficiency 30 - 100 ng/mL (75 - 250 nmol/L) Toxicity >100 ng/mL (>250 nmol/L) Platelets bldon 05-29-2022 Platelets (Bld) [#/Vol] 250 10*3/uL 150-450 [facility] Work Phone: Serum or plasma albumin esther urement (mass/volume)on 05-29-2022 Albumin [Mass/Vol] 3.7 g/dL 3.2-5.0 [facility] Work Phone: Serum or plasma albumin/glob ulin mass ratioon 05-29-2022 Albumin/Globulin [Mass ratio] 1.2 {ratio} 0.9-2.4 [facility] Work Phone: Serum or plasma calcium esther urement (mass/volume)on 05-29-2022 Calcium [Mass/Vol] 9.1 mg/dL 8.5-10.1 [facility] Work Phone: Serum or plasma cholesterol in HDL measurement (mass/volume)on 05-29-2022 Cholesterol in HDL [Mass/Vol] 39 mg/dL >40 [facility] Work Phone: Comment on above: The drugs N-Acetylcy steine and Metamizole may falsely depress this assay. Reference Range HDL <40 mg/dL Low HDL Cholesterol HDL >or= 60 mg/dL High HDL Cholesterol Serum or plasma cholesterol in VLDL measurement (mass/volume)on 05-29-2022 Cholesterol in VLDL [Mass/Vol] 61 mg/dL 5-40 [facility] Work Phone: Serum or plasma creatinine m easurement (mass/volume)on 05-29-2022 Creatinine [Mass/Vol] 0.82 mg/dL 0.55-1.02 [facility] [place] Work Phone: Comment on above: The validity of the calculated GFR & GFRAA in patients over 70 years has not been determined. Clinical correlation is essential. Serum or plasma low density lipoprotein (LDL) cholesterol measurement (mass/volume)on 05-29-2022 Cholesterol in LDL [Mass/Vol] 153 mg/dL 0-130 [facility] Work Phone: Serum or plasma urea nitroge n measurement (mass/volume)on 05-29-2022 Urea nitrogen [Mass/Vol] 10 mg/dL 7-18 [facility] Work Phone: Thin prep Papanicolaou smear with manual screeningon 05-29-2022 Thin prep Papanicolaou smear with manual screening 9 U/L 15-37 [facility] Work Phone: Thin prep Papanicolaou smear with manual screening 4 5-15 [facility] Work Phone: Laboratory - Hematology and Cell countson 05-14-2022 HbA1c (Bld) [Mass fraction] 7.4 % 4.2-6.3 [facility] Work Phone: Absolute lymphocyte counton 02-28-2022 Lymphocytes Auto (Unsp spec) [#/Vol] 1.62 10*3/uL 0.83-4.51 [facility] Work Phone: Basophil percentageon 2021 Basophils/100 WBC (Bld) 0.4 % 0-1 [facility] Work Phone: Chloride [Moles/Vol] 103 mmol/L 98-107 [facility] Work Phone: Eosinophils/100 WBC (Bld) 1.8 % 0-5 [facility] Work Phone: Glucose [Mass/Vol] 202 mg/dL 74-106 [facility] Work Phone: Comment on above: Glucose result great er than or equal to 200 mg/dLsuggests DIABETES MELLITUS per A.D.A. criteria. Neutrophils (Bld) [#/Vol] 3.3 10*3/uL 2.0-7.7 [facility] Work Phone: Neutrophils/100 WBC (Bld) 59.6 % 47-70 [facility] Work Phone: [phone] Potassium [Moles/Vol] 4.4 mmol/L 3.5-5.1 [facility] [place] Work Phone: Comment on above: Moderate Hemolysis, Result may be falsely increased. Sodium [Moles/Vol] 138 mmol/L 136-145 [facility] Work Phone: WBC (Bld) [#/Vol] 5.5 10*3/uL 4.4-11.0 [facility] Work Phone: Blood erythrocytes count (nu mber/volume)on 02-28-2022 RBC (Bld) [#/Vol] 4.68 10*6/uL 4.2-5.4 [facility] Work Phone: Blood hemoglobin measurement (mass/volume)on 02-28-2022 Hemoglobin (Bld) [Mass/Vol] 13.7 g/dL 12.0-15.0 [facility] Work Phone: Blood lymphocytes/100 leukoc yteson 02-28-2022 Lymphocytes/100 WBC (Bld) 29.2 % 19-41 [facility] Work Phone: Blood monocytes/100 leukocyt eson 02-28-2022 Monocytes/100 WBC (Bld) 8.5 % 0-10 [facility] Work Phone: [phone] Blood platelet adequacy dete ction by light microscopyon 02-28-2022 Platelets LM Ql (Bld) ADEQUATE ADEQ [facility] [place] Work Phone: Blood platelet mean volumeon 02-28-2022 Platelet mean volume (Bld) [Entitic vol] 11.3 fL 6.2-12.0 [facility] Work Phone: Determination of erythrocyte mean corpuscular volume (MCV)on 02-28-2022 MCV (RBC) [Entitic vol] 89.5 fL 81-99 [facility] Work Phone: Hematocrit Auto (Bld) [Volum e fraction]on 02-28-2022 Hematocrit (Bld) [Volume fraction] 41.9 % 37-47 [facility] Work Phone: Laboratory - Chemistry and C hemistry - challengeon 02-28-2022 CO2 [Moles/Vol] 29.0 mmol/L 21.0-32.0 [facility] Work Phone: Urea nitrogen/Creatinine [Mass ratio] 12.8 mg/mg 10-20 [facility] Work Phone: Laboratory - Hematology and Cell countson 02-28-2022 Erythrocyte distribution width (RBC) [Entitic vol] 42.9 fL 35.1-43.9 [facility] Work Phone: Erythrocyte distribution width (RBC) [Ratio] 13.1 % 11.6-14.6 [facility] Work Phone: Immature granulocytes/100 WBC (Bld) 0.500 % 0.0-0.9 [facility] Work Phone: Comment on above: IG% - Immature Granu locytes (promyelocytes, myelocytes and metamyelocytes) > 1% indicates that a LEFT SHIFT is Present. MCH (RBC) [Entitic mass] 29.3 pg 27.0-32.0 [facility] Work Phone: Nucleated RBC/100 WBC (Bld) [Ratio] 0 % 0-5 [facility] Work Phone: MCHC Auto (RBC) [Mass/Vol]on 02-28-2022 MCHC (RBC) [Mass/Vol] 32.7 g/dL 32-36 [facility] Work Phone: No Panel Informationon 02-28 Estimated Creatinine Clearance Calc 52.26 ml/min [facility] Work Phone: Estimated GFR (MDRD) Amer 77 mL/min >60 [facility] Work Phone: Comment on above: GFR Calc Estimated GFR (MDRD) Non-Af Amer 63 mL/min >60 [facility] Work Phone: Comment on above: Non- GFR Calc Platelets bldon 02-28-2022 Platelets (Bld) [#/Vol] 231 10*3/uL 150-450 [facility] Work Phone: RBC morphologyon 02-28-2022 RBC morphology finding Nom (Bld) NORM C+C NORMAL NORM C&C [facility] Work Phone: Serum or plasma calcium esther urement (mass/volume)on 02-28-2022 Calcium [Mass/Vol] 9.2 mg/dL 8.5-10.1 [facility] Work Phone: Serum or plasma creatinine m easurement (mass/volume)on 02-28-2022 Creatinine [Mass/Vol] 0.94 mg/dL 0.55-1.02 [facility] [place] Work Phone: Comment on above: The validity of the calculated GFR & GFRAA in patients over 70 years has not been determined. Clinical correlation is essential. Serum or plasma urea nitroge n measurement (mass/volume)on 02-28-2022 Urea nitrogen [Mass/Vol] 12 mg/dL 7-18 [facility] Work Phone: Thin prep Papanicolaou smear with manual screeningon 02-28-2022 Thin prep Papanicolaou smear with manual screening 6 5-15 [facility] Work Phone: Glucose Glucometer (BldC) [M ass/Vol]on 01-17-2022 Glucose [Mass/Vol] 158 mg/dL 74-106 [facility] Work Phone: Comment on above: MANAGEMENT OF PATIEN T CARE PER NURSING PROTOCOL No Panel Informationon 01-17 Troponin I High Sensitivity 7 pg/mL 3.0-54.0 [facility] Work Phone: Comment on above: Please Note: New Any t Units and Gender Specific Reference Ranges. For more information see Policy Stat Procedure [place] High Sensitivity Troponin (TNIH) and attachments. Glucose Glucometer (BldC) [M ass/Vol]on 12-29-2021 Glucose [Mass/Vol] 237 mg/dL 74-106 [facility] Work Phone: Comment on above: MANAGEMENT OF PATIEN T CARE PER NURSING PROTOCOL Laboratory - Hematology and Cell countson 12-28-2021 HbA1c (Bld) [Mass fraction] 8.8 % 4.2-6.3 [facility] Work Phone: Absolute lymphocyte counton 10-23-2021 Lymphocytes Auto (Unsp spec) [#/Vol] 1.96 10*3/uL 0.83-4.51 [facility] Work Phone: Basophil percentageon 2021 Basophils/100 WBC (Bld) 0.4 % 0-1 [facility] Work Phone: Chloride [Moles/Vol] 106 mmol/L 98-107 [facility] Work Phone: Eosinophils/100 WBC (Bld) 1.4 % 0-5 [facility] Work Phone: [phone] Glucose [Mass/Vol] 190 mg/dL 74-106 [facility] Work Phone: Comment on above: Fasting Glucose resu lt greater than or equal to 126 mg/dL suggests DIABETES MELLITUS per A.D.A. criteria. Neutrophils (Bld) [#/Vol] 2.8 10*3/uL 2.0-7.7 [facility] Work Phone: Neutrophils/100 WBC (Bld) 50.8 % 47-70 [facility] Work Phone: Potassium [Moles/Vol] 4.1 mmol/L 3.5-5.1 [facility] [place] Work Phone: Sodium [Moles/Vol] 139 mmol/L 136-145 [facility] Work Phone: WBC (Bld) [#/Vol] 5.6 10*3/uL 4.4-11.0 [facility] Work Phone: Blood erythrocytes count (nu mber/volume)on 10-23-2021 RBC (Bld) [#/Vol] 4.11 10*6/uL 4.2-5.4 [facility] Work Phone: Blood hemoglobin measurement (mass/volume)on 10-23-2021 Hemoglobin (Bld) [Mass/Vol] 12.1 g/dL 12.0-15.0 [facility] Work Phone: Blood lymphocytes/100 leukoc yteson 10-23-2021 Lymphocytes/100 WBC (Bld) 35.2 % 19-41 [facility] Work Phone: Blood monocytes/100 leukocyt eson 10-23-2021 Monocytes/100 WBC (Bld) 11.8 % 0-10 [facility] Work Phone: Blood platelet mean volumeon 10-23-2021 Platelet mean volume (Bld) [Entitic vol] 11.0 fL 6.2-12.0 [facility] Work Phone: Determination of erythrocyte mean corpuscular volume (MCV)on 10-23-2021 MCV (RBC) [Entitic vol] 91.2 fL 81-99 [facility] Work Phone: Hematocrit Auto (Bld) [Volum e fraction]on 10-23-2021 Hematocrit (Bld) [Volume fraction] 37.5 % 37-47 [facility] Work Phone: Laboratory - Chemistry and C hemistry - challengeon 10-23-2021 CO2 [Moles/Vol] 30.0 mmol/L 21.0-32.0 [facility] Work Phone: Urea nitrogen/Creatinine [Mass ratio] 12.2 mg/mg 10-20 [facility] Work Phone: Laboratory - Hematology and Cell countson 10-23-2021 Erythrocyte distribution width (RBC) [Entitic vol] 42.9 fL 35.1-43.9 [facility] Work Phone: Erythrocyte distribution width (RBC) [Ratio] 12.8 % 11.6-14.6 [facility] Work Phone: Immature granulocytes/100 WBC (Bld) 0.400 % 0.0-0.9 [facility] Work Phone: Comment on above: IG% - Immature Granu locytes (promyelocytes, myelocytes and metamyelocytes) > 1% indicates that a LEFT SHIFT is Present. MCH (RBC) [Entitic mass] 29.4 pg 27.0-32.0 [facility] Work Phone: Nucleated RBC/100 WBC (Bld) [Ratio] 0 % 0-5 [facility] Work Phone: MCHC Auto (RBC) [Mass/Vol]on 10-23-2021 MCHC (RBC) [Mass/Vol] 32.3 g/dL 32-36 [facility] [place] Work Phone: No Panel Informationon 10-23 Troponin I High Sensitivity 4 pg/mL 3.0-54.0 [facility] Work Phone: Comment on above: Please Note: New Any t Units and Gender Specific Reference Ranges. For more information see Policy Stat Procedure [place] High Sensitivity Troponin (TNIH) and attachments. Estimated Creatinine Clearance Calc 51.11 ml/min [facility] Work Phone: Estimated GFR (MDRD) Amer 101 mL/min >60 [facility] Work Phone: Comment on above: GFR Calc Estimated GFR (MDRD) Non-Af Amer 83 mL/min >60 [facility] Work Phone: Comment on above: Non- GFR Calc Platelets bldon 10-23-2021 Platelets (Bld) [#/Vol] 213 10*3/uL 150-450 [facility] Work Phone: Serum or plasma calcium esther urement (mass/volume)on 10-23-2021 Calcium [Mass/Vol] 8.8 mg/dL 8.5-10.1 [facility] Work Phone: Serum or plasma creatinine m easurement (mass/volume)on 10-23-2021 Creatinine [Mass/Vol] 0.74 mg/dL 0.55-1.02 [facility] Work Phone: Comment on above: The validity of the calculated GFR & GFRAA in patients over 70 years has not been determined. Clinical correlation is essential. Serum or plasma urea nitroge n measurement (mass/volume)on 10-23-2021 Urea nitrogen [Mass/Vol] 9 mg/dL 7-18 [facility] Work Phone: Thin prep Papanicolaou smear with manual screeningon 10-23-2021 Thin prep Papanicolaou smear with manual screening 3 5-15 [facility] Work Phone: CHEST 2 VIEW PA AND LATon CHEST 2 VIEW PA AND LAT Patient Name: ELSA PUGH STUDY: TH CHEST 2 VIEW PA AND LAT; 07/12/2021 11:44 am INDICATION: pneumonia J18.9: Pneumonia. COMPARISON: 06/14/2016 ACCESSION NUMBER(S): [id number] ORDERING CLINICIAN: AGUSTIN TANNER FINDINGS: The cardiac silhouette is enlarged. Median sternotomy wires present. There is no edema. There is no consolidation. There is no few IMPRESSION: Enlarged cardiac silhouette. No consolidation or edema seen Electronically signed by: HUNTER NIETO MD 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 This report is filed in the EHR. I have considered the risks of abuse, addiction and diversion. I believe it is clinically appropriate to continue to prescribe this medication. OARRS report reviewed. No evidence of refill acceleration. No inappropriate usage of multiple providers or pharmacies. OARRS report reviewed. No evidence of refill acceleration. No inappropriate usage of multiple providers or pharmacies. Medication management Follow-up visit in 3 months Outpatient Follow-up Status: Hold For - Scheduling Requested for: 12Jul2021 Chief Complaint medck History of Present IllnessAnxiety and depression- lorazepam daily along with Celexa. Doing pretty well. Seems to be dealing with COVID-19 and issues better. Good and bad days. Better since she from . Relieved. After 48 years Atherosclerosis of [place] coronary artery - Dr Osorio in April. Still gets chest pains at times. Nitro not needed No ER for 48 months Benign hypertension - good on no meds. Still tired a lot but better. 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 BMI 32. - down another 7 pounds. She is doing stretches and walking and on feet at work Constipation - Better now. She has been on increased water. Walking more helps. Miralax daily daily. Diabetes mellitus, type II - Not as good on diet and in mid 100s with occasional over 200. A1C is higher at 8.8 up from 8.5%. . She is on Metformin only. Invokana and glimepiride not tolerated. No low sugars. Feels she can get it down with diet. CMP OK this time except glucose of 280 Will consider Rybelsus. Familial combined hyperlipidemia - on no meds due to achiness. Red Rice Yeast and magnesium . TG 381. . TC 233 in December GERD and cough - tolerable heartburn at times. Much better since GB out. No meds except Rolaids a couple per week Lymphedema - rarely needs Lasix lately. Migraine - Sinemet aggravated. . But less lately. Cannot miss Plavix or will get a headache. 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 Can sleep anytime. Doing better in forcing herself to not sleep and seems to help. Has been to sleep medicine. LADAN (obstructive sleep apnea) - CPAP every day. Averaging 6 hours. Has a new sleep med doctor at [facility] and dropped pressure. So tolerates better. Peripheral neuropathy - diabetic - Diabetic socks help. She massages the toes a lot. Hands swollen in AM. She is on Lyrica 75 at 3 per day. And tingling in toes is variable with that and the RLS below. No SE. The humidity or cold does make this worse. Restless leg syndrome - Sinemet was stopped as above. 5 AM acts up. CBD helps on knees, elbows and hands. Weather aggravates it. Lyrica helps and she is cutting that back to 3 per day. Was at 450 per day Retinopathy due to DM with exam about 12 months ago so will check soon CSA 12/16/20 UDS 06/08/19- UDS as expected for medication profile; 10/06/20 as expected for medication profile Mammogram 01/05/21 Colonoscopy 07/29/19 I have personally reviewed the patients OARRS report. This report is filed in the EHR. I have considered the risks of abuse, addiction and diversion. I believe it is clinically appropriate to continue to prescribe this medication. Active Problems Anxiety and depression (300.00,311) (F41.9,F32.A) Arteriosclerosis of coronary artery (414.00) (I25.10) Benign essential hypertension (401.1) (I10) Constipation (564.00) (K59.00) Diabetic polyneuropathy associated with type 2 diabetes mellitus (250.60,357.2) (E11.42) Encounter for immunization (V03.89) (Z23) Familial combined hyperlipidemia (272.2) (E78.49) GERD (gastroesophageal reflux disease) (530.81) (K21.9) Internal derangement of right knee (717.9) (M23.91) residential prescription benzodiazepine use (V58.69) (Z79.899) Lymphedema (457.1) (I89.0) Medicare annual wellness visit, subsequent (V70.0) ( (more content not included)... Normal [facility] 07-[facility]-2021 XR Chest 2 Views Normal [facility] Work Phone: XR Chest 2 Views Please click on the link to view the study images Normal [facility] Work Phone: Tobacco Screening.on 022 Adult depression screening assessment No [facility] Work Phone: Fall risk assessment b) One or more fall s in the last year [facility] Work Phone: Tobacco use status [facility] b) No [facility]: [facility]-20-[facility]21 Follow-up visit Diagnoses/Problems Pneumonia (486) (J18.9) Orders Pneumonia Xray Chest 2 View PA + Lateral; Status:Hold For - Scheduling; Requested for:20Jun2021; Radiologist to Determine Optimal Study : Y What are the patient's signs and symptoms? : pneumonia Chief Complaint 1 week f/u. A telephone visit (audio only) between the patient (at the originating site) and the provider (at the distant site) was utilized to provide this telehealth service. Verbal consent was requested and obtained from ELSA PUGH on this date, 06/20/2021 01:20 PM , for a telehealth visit. History of Present Illness was seen urgent care day before daniella had cxr per M and had pneumonia test for covid and flu both neg now has sob cough no wheezing now no fever feeling better on zpak and now fiinished no cough medicine has some sob at rest but this is typical 'Scores and Scales' LOVE-7 [id number] Feeling nervous, anxious or on edge Not being able to stop or control worrying Worrying too much about different things Trouble relaxing Being so restless that it's hard to sit still Becoming easily annoyed or irritable Feeling afraid as if something awful might happen LOVE-7 Total Score4 Active Problems Anxiety and depression (300.00,311) (F41.9,F32.A) Arteriosclerosis of coronary artery (414.00) (I25.10) Benign essential hypertension (401.1) (I10) Bronchitis, acute (466.0) (J20.9) Class 1 obesity with body mass index (BMI) of 33.0 to 33.9 in adult (278.00,V85.33) (E66.9,Z68.33) Constipation (564.00) (K59.00) Diabetic polyneuropathy associated with type 2 diabetes mellitus (250.60,357.2) (E11.42) Encounter for immunization (V03.89) (Z23) Familial combined hyperlipidemia (272.2) (E78.49) GERD (gastroesophageal reflux disease) (530.81) (K21.9) Internal derangement of right knee (717.9) (M23.91) Iron deficiency anemia (280.9) (D50.9) residential prescription benzodiazepine use (V58.69) (Z79.899) Lymphedema (457.1) (I89.0) Medicare annual wellness visit, subsequent (V70.0) (Z00.00) Medication management (V58.69) (Z79.899) Menopause (627.2) (Z78.0) Migraine (346.90) (G43.909) Myalgia due to statin (729.1,E942.2) (M79.10,T46.6X5A) Narcolepsy (347.00) (G47.419) Obstructive sleep apnea, adult (327.23) (G47.33) Restless leg syndrome (333.94) (G25.81) Screening mammogram, encounter for (V76.12) (Z12.31) Seborrheic dermatitis of scalp (690.18) (L21.9) Sprain of medial collateral ligament of right knee, initial encounter (844.1) (S83.411A) Sprain of tibiofibular ligament of right ankle, initial encounter (845.03) (S93.431A) Status post laparoscopic cholecystectomy (V45.89) (Z90.49) Synovial cyst of left popliteal space (727.51) (M71.22) Type 2 diabetes mellitus with proliferative diabetic retinopathy with macular edema, bilateral (250.50,362.02,362.07) (E11.3513) UTI symptoms (788.99) (R39.9) Past Medical History History of Biliary sludge determined by ultrasound (576.8) (K83.8) Resolved Date: 16 Jun 2019 History of Body mass index (BMI) of 34.0 to 34.9 in adult (V85.34) (Z68.34) Resolved Date: 14 Apr 2021 History of Body mass index (BMI) of 35.0 to 35.9 in adult (V85.35) (Z68.35) Resolved Date: 05 Jan 2021 History of Body mass index (BMI) of 36.0 to 36.9 in adult (V85.36) (Z68.36) Resolved Date: 07 Jul 2020 History of chest pain (V13.89) (Z87.898) Resolved Date: 06 Oct 2020 History of cholelithiasis (V12.79) (Z87.19) Resolved Date: 07 Oct 2019 History of hypokalemia (V12.29) (Z86.39) Resolved Date: 06 Oct 2020 History of Medicare annual wellness visit, initial (V70.0) (Z00.00) Resolved Date: 14 Apr 2021 History of Symptomatic cholelithiasis (574.20) (K80.20) Resolved Date: 07 Oct 2019 Surgical History History of Breast biopsy excisional History of Cardiac catheterization with stent placement History of Cataract surgery History of Cholecystectomy History of Colonic polypectomy History of Colonoscopy History of Coronary artery bypass graft History of Hysterectomy History of Tonsillectomy with adenoidectomy Family History Family history of cardiac disorder (V17.49) (Z82.49) Family history of cerebrovascular accident (CVA) (V17.1) (Z82.3) Family history of heart failure (V17.49) (Z82.49) Family history of hypertension (V17.49) (Z82.49) Family history of hypothyroidism (V18.19) (Z83.49) Family history of myocardial infarction (V17.3) (Z82.49) Family history of High serum cholesterol sulfate Family history of Irregular heartbeat Family history of diabetes mellitus (V18.0) (Z83.3) Family history of heart failure (V17.49) (Z82.49) Family history of hypertension (V17.49) (Z82.49) Family history of High serum cholesterol sulfate Family history of diabetes mellitus (V18.0) (Z83.3) Family history of cardiac disorder (V17.49) (Z82.49) Social History Former smoker (V15.82) (Z87.891) No recent foreign travel Patient has living will (V49.89) (Z78.9) (more content not included)... Normal [facility] Tobacco Screening.on 022 Fall risk assessment b) One or more fall s in the last year [facility] Work Phone: Tobacco use status [facility]PH[facility] b) No [facility] Work Phone: Office Visit ([facility])on 06-13-2021 Follow-up visit Diagnoses/Problems Bronchitis, acute (466.0) (J20.9) Orders Bronchitis, acute Start: Azithromycin 250 MG Oral Tablet; TAKE 2 TABLETS ON DAY 1 THEN TAKE 1 TABLET A DAY FOR 4 DAYS Xray Chest 2 View PA + Lateral; Status:Hold For - Scheduling; Requested for:[id number]; Radiologist to Determine Optimal Study : Y What are the patient's signs and symptoms? : Cough worsening with phlegm Chief Complaint f/u urgent care sravan, pt. c/o headache, cough, wheezing x5 days. An interactive audio and video telecommunication system which permits real time communications between the patient (at the originating site) and provider (at the distant site) was utilized to provide this telehealth service. Verbal consent was requested and obtained from ELSA PUGH on this date, 06/13/2021 07:40 AM , for a telehealth visit. History of Present Illness About 5-6 days ago she started to have cough and wheezing. Negative on COVID and Influenza. She was seen in urgent care. Per patient report she was provided inhaler, Percocet and steroid course. Unsure why Percocet was provided. With about treatment her symptoms minimally improved however appears that the symptoms are worsening now. Still having headache, coughing with phlegm which is yellowish/green, and wheezing. Has been using inhaler as well. Plan: Starting antibiotics and ordering an x-ray, as symptoms are worsening. Patient to continue to use inhaler. Recommended to seek medical attention if worsening of symptoms. Follow-up in a week. 'Scores and Scales' LOVE-7 [id number] Feeling nervous, anxious or on edge Not being able to stop or control worrying Worrying too much about different things Trouble relaxing Being so restless that it's hard to sit still Becoming easily annoyed or irritable Feeling afraid as if something awful might happen LOVE-7 Total Score4 Review of Systems ROS negative except discussed above in HPI. Active Problems Anxiety and depression (300.00,311) (F41.9,F32.A) Arteriosclerosis of coronary artery (414.00) (I25.10) Benign essential hypertension (401.1) (I10) Class 1 obesity with body mass index (BMI) of 33.0 to 33.9 in adult (278.00,V85.33) (E66.9,Z68.33) Constipation (564.00) (K59.00) Diabetic polyneuropathy associated with type 2 diabetes mellitus (250.60,357.2) (E11.42) Encounter for immunization (V03.89) (Z23) Familial combined hyperlipidemia (272.2) (E78.49) GERD (gastroesophageal reflux disease) (530.81) (K21.9) Internal derangement of right knee (717.9) (M23.91) Iron deficiency anemia (280.9) (D50.9) residential prescription benzodiazepine use (V58.69) (Z79.899) Lymphedema (457.1) (I89.0) Medicare annual wellness visit, subsequent (V70.0) (Z00.00) Medication management (V58.69) (Z79.899) Menopause (627.2) (Z78.0) Migraine (346.90) (G43.909) Myalgia due to statin (729.1,E942.2) (M79.10,T46.6X5A) Narcolepsy (347.00) (G47.419) Obstructive sleep apnea, adult (327.23) (G47.33) Restless leg syndrome (333.94) (G25.81) Screening mammogram, encounter for (V76.12) (Z12.31) Seborrheic dermatitis of scalp (690.18) (L21.9) Sprain of medial collateral ligament of right knee, initial encounter (844.1) (S83.411A) Sprain of tibiofibular ligament of right ankle, initial encounter (845.03) (S93.431A) Status post laparoscopic cholecystectomy (V45.89) (Z90.49) Synovial cyst of left popliteal space (727.51) (M71.22) Type 2 diabetes mellitus with proliferative diabetic retinopathy with macular edema, bilateral (250.50,362.02,362.07) (E11.3513) UTI symptoms (788.99) (R39.9) Past Medical History History of Biliary sludge determined by ultrasound (576.8) (K83.8) Resolved Date: 16 Jun 2019 History of Body mass index (BMI) of 34.0 to 34.9 in adult (V85.34) (Z68.34) Resolved Date: 14 Apr 2021 History of Body mass index (BMI) of 35.0 to 35.9 in adult (V85.35) (Z68.35) Resolved Date: 05 Jan 2021 History of Body mass index (BMI) of 36.0 to 36.9 in adult (V85.36) (Z68.36) Resolved Date: 07 Jul 2020 History of chest pain (V13.89) (Z87.898) Resolved Date: 06 Oct 2020 History of cholelithiasis (V12.79) (Z87.19) Resolved Date: 07 Oct 2019 History of hypokalemia (V12.29) (Z86.39) Resolved Date: 06 Oct 2020 History of Medicare annual wellness visit, initial (V70.0) (Z00.00) Resolved Date: 14 Apr 2021 History of Symptomatic cholelithiasis (574.20) (K80.20) Resolved Date: 07 Oct 2019 Surgical History History of Breast biopsy excisional History of Cardiac catheterization with stent placement History of Cataract surgery History of Cholecystectomy History of Colonic polypectomy History of Colonoscopy History of Coronary artery bypass graft History of Hysterectomy History of Tonsillectomy with adenoidectomy Family History Family history of cardiac disorder (V17.49) (Z82.49) Family history of cerebrovascular accident (CVA) (V17.1) (Z82.3) Family history of heart failure (V17.49) (Z82.49) Family (more content not included)... Normal [employer] Xray Bone Density, Dexa 1 or More Siteson 05-03-2021 Xray Bone Density, Dexa 1 or More Sites Normal [facility] Work Phone: Medicare Annual Wellness Vis iton 04-14-2021 Medicare Annual Wellness Visit *Chief Complaint medck and AWV History of Present Illness The patient is being seen for the subsequent annual wellness visit. Past Medical, Surgical and Family History: reviewed and updated in chart. Medications and Supplements: Medications and supplements, including calcium and vitamins reviewed and updated in chart. No, the patient is not using opioids. Patient Self Assessment of Health Status: good. Tobacco use: Non-User The patient is a former cigarette smoker and quit smoking 1997. She has smoked for 20 year(s) and has 25 pack year(s) of cigarette use. Alcohol use: Non-User Illicit drug use: Non-User Current diet: Heart Healthy Diet, does not consume adequate fluids and does not consume caffeine. Exercise Frequency: infrequently. Depression/Suicide Screening: Patient has a current diagnosis of depression. Hearing Impairment: none. Cognitive Impairment: No cognitive impairment observed, patient or family reported cognitive impairment . Due to narcolepsy - seems better lately. Bathing: performs independently. Dressing: performs independently. Walking: performs independently. Managing Finances: performs independently. Shopping: performs independently. Managing Medications: performs independently. Housework / Basic Home Maintenance: performs independently. Falls Risk Screening:. ELSA has fallen in the last 6 months. Her fall resulted in the following injury: abrasion and sprain knee. Fall risk factors: mobility impairment. Care Plan Low/Moderate Risk: Regular physical activity such as walking, water aerobics or rufina chi to improve strength, balance, coordination and flexibility. Wear appropriate, sensible shoe wear. Remove fall hazards at home such as loose rugs, obstacles, use non-slip surface in bath or shower. Keep living space well lit. (slipped on leaves) Home safety risk factors: none. Advance directives:. Patient has living will. Patient has healthcare POA. Patient's End of Life Decisions: End of life decisions were reviewed with the patient. I agree to follow the patient's decisions. Additional Information: pain 8. Anxiety and depression- lorazepam daily along with Celexa. Doing pretty well. Seems to be dealing with COVID-19 and issues better. Good and bad days. Better since she from . Proceeding to divorce Atherosclerosis of [place] coronary artery - Dr Osorio in April. Still gets chest pains at times. Nitro not needed No ER for 45 months Benign hypertension - good on no meds. Still tired a lot but better. 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 Biliary sludge - had GB out and doing well. BMI 34. - down another 6 pounds. Constipation - have been problems at times with hemorrhoids. She is having hard stools. She has been on increased water. Miralax daily daily and doing better but still has days Diabetes mellitus, type II - Not as good on diet and in mid 100s with occasional over 200. .A1C is higher at 8.5 up from 7.7 which was down from 8.6%. . She is on Metformin only. Invokana and glimepiride not tolerated. No low sugars. She has not had Trulicity. Not ready to do that. Feels she can get it down with diet. CMP OK in December Familial combined hyperlipidemia - on no meds due to achiness. Red Rice Yeast and magnesium . TG 378. TC 223. In December Walking. GERD and cough - tolerable heartburn at times. Much better since GB out. No meds except Rolaids a couple per week Hypokalemia - no longer on supplement unless she takes Lasix. Not needing those lately. Last was 4.0 Lymphedema - rarely needs Lasix lately Migraine - Sinemet aggravated. . But less lately. Cannot miss Plavix or will get a headache. 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 Can sleep anytime. Doing better in forcing herself to not sleep and seems to help. Has been to sleep medicine. Monitors iron level. LADAN (obstructive sleep apnea) - CPAP every day. Averaging 4 hours. Has a new sleep med doctor at [facility] and looking at new mask. Feels she can drop pressure with autotitrating. Peripheral neuropathy - diabetic - got worse and now the same on no meds. Diabetic socks help. She massages the toes a lot. Hands swollen in AM. She is on Lyrica 75 at 3 per day. And tingling in toes is variable with that and the RLS below. No SE. The humidity does make this worse. Pain is 2/9. ADLs unchanged Restless leg syndrome - Sinemet was stopped as above. 5 AM acts up. CBD helps on knees, elbows and hands. Weather aggravates it. Lyrica helps and she is cutting that back to 3 per day. Was at 450 per day Retinopathy due to DM with exam about 9 months ago. OK Right knee pain since she fell a couple days ago. Slipped on wet leaves. Landed on right knee and has an abrasion. Wearing splint to feel better standing CSA 01/05/21 UDS 06/08/19- UDS as expected for medication profile; 10/06/20 as expected for medication profile Mammogram 01/05/21 Colonoscopy 03/27/12 I have personally reviewed the patients O (more content not included)... Normal [facility] Tobacco Screening.on 021 Fall risk assessment b) One or more fall s in the last year [facility] Work Phone: Tobacco use status [facility] b) No [facility] Work Phone: Office Visiton 02-03-2021 Follow-up visit Diagnoses/Problems Sprain of tibiofibular ligament of right ankle, initial encounter (845.03) (S93.431A) Sprain of medial collateral ligament of right knee, initial encounter (844.1) (S83.411A) Synovial cyst of left popliteal space (727.51) (M71.22) Orders Anxiety and depression Renew: LORazepam 1 MG Oral Tablet; TAKE 1 TABLET Bedtime PRN I have personally reviewed the patients OARRS report. This report is filed in the EHR. I have considered the risks of abuse, addiction and diversion. I believe it is clinically appropriate to continue to prescribe this medication. OARRS report reviewed. No evidence of refill acceleration. No inappropriate usage of multiple providers or pharmacies. OARRS report reviewed. No evidence of refill acceleration. No inappropriate usage of multiple providers or pharmacies. Synovial cyst of left popliteal space Start: Diclofenac Sodium 1 % External Gel; apply 2 gram topically QID for pain Patient Discussion/Summary You have a Kendrick's cyst in the left knee. The best I can guess is that this is due to unusual stress because of walking abnormally due to the right knee. You can rub the Voltaren gel on there 2-4 times a day. The right knee has a strained but not torn medial collateral ligament. The brace is a great tool to help you ambulate and keep the knee stable but just use that as needed and make sure you are working on range of motion. I did send in for some Voltaren gel to help calm down the inflammation. This will probably be quite sore for another week and then on occasion for up to 2 months. You have a sprain of the right ankle which is somewhat stiff. I would like you to do the ABCs 3 times a day to improve the range of motion, strength, and proprioception. You can also use the Voltaren gel on that. Chief Complaint knee and ankle pain History of Present Illness6 days ago Fell going down steps, slipped on carpet and slid down 4 steps. Hit head on wall. No LOC or wooziness. Some headache for awhile. No DV, or ataxia Right ankle got twisted in and then right knee bent back Not able to bear weight on the ankle. Has history of torn meniscus and felt like she reinjured that. To ER and had CT of brain which showed no abnormalities. Knee and ankle Xray showed no fracture but some effusion in the knee. Now with brace on the knee she is able to walk Pain in knee Ankle is doing pretty well Swelling is less Some bruising of ankle And now a swelling behind left knee that is painful Still some swelling of knee and pain on the inside Active Problems Anxiety and depression (300.00,311) (F41.9,F32.9) Arteriosclerosis of coronary artery (414.00) (I25.10) Benign essential hypertension (401.1) (I10) Body mass index (BMI) of 34.0 to 34.9 in adult (V85.34) (Z68.34) Constipation (564.00) (K59.00) Diabetic polyneuropathy associated with type 2 diabetes mellitus (250.60,357.2) (E11.42) Encounter for immunization (V03.89) (Z23) Familial combined hyperlipidemia (272.2) (E78.49) GERD (gastroesophageal reflux disease) (530.81) (K21.9) Iron deficiency anemia (280.9) (D50.9) 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 (V58.69) (Z79.899) Lymphedema (457.1) (I89.0) Medicare annual wellness visit, initial (V70.0) (Z00.00) Medication management (V58.69) (Z79.899) Migraine (346.90) (G43.909) Myalgia due to statin (729.1,E942.2) (M79.10,T46.6X5A) Narcolepsy (347.00) (G47.419) Obesity (278.00) (E66.9) Obstructive sleep apnea, adult (327.23) (G47.33) Restless leg syndrome (333.94) (G25.81) Screening mammogram, encounter for (V76.12) (Z12.31) Seborrheic dermatitis of scalp (690.18) (L21.9) Status post laparoscopic cholecystectomy (V45.89) (Z90.49) Type 2 diabetes mellitus with proliferative diabetic retinopathy with macular edema, bilateral (250.50,362.02,362.07) (E11.3513) Past Medical History History of Biliary sludge determined by ultrasound (576.8) (K83.8) Resolved Date: 16 Jun 2019 History of Body mass index (BMI) of 35.0 to 35.9 in adult (V85.35) (Z68.35) Resolved Date: 05 Jan 2021 History of Body mass index (BMI) of 36.0 to 36.9 in adult (V85.36) (Z68.36) Resolved Date: 07 Jul 2020 History of chest pain (V13.89) (Z87.898) Resolved Date: 06 Oct 2020 History of cholelithiasis (V12.79) (Z87.19) Resolved Date: 07 Oct 2019 History of hypokalemia (V12.29) (Z86.39) Resolved Date: 06 Oct 2020 History of Symptomatic cholelithiasis (574.20) (K80.20) Resolved Date: 07 Oct 2019 Surgical History History of Breast biopsy excisional History of Cardiac catheterization with stent placement History of Cataract surgery History of Cholecystectomy History of Colonic polypectomy History of Colonoscopy History of Coronary artery bypass graft History of Hysterectomy History of Tonsillectomy with adenoidectomy Social History Former smoker (V15.82) (Z87.891) No recent foreign travel Patient has living will (V49.89) (Z78.9) Allergies benazepril (more content not included)... 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, bilateral (250.50,362.02,362.07) (E11.3513) Medication management (V58.69) (Z79.899) Anxiety and depression (300.00,311) (F41.9,F32.9) Arteriosclerosis of coronary artery (414.00) (I25.10) Benign essential hypertension (401.1) (I10) Body mass index (BMI) of 34.0 to 34.9 in adult (V85.34) (Z68.34) Constipation (564.00) (K59.00) Diabetic polyneuropathy associated with type 2 diabetes mellitus (250.60,357.2) (E11.42) 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 This report is filed in the EHR. I have considered the risks of abuse, addiction and diversion. I believe it is clinically appropriate to continue to prescribe this medication. OARRS report reviewed. No evidence of refill acceleration. No inappropriate usage of multiple providers or pharmacies. OARRS report reviewed. No evidence of refill acceleration. No inappropriate usage of multiple providers or pharmacies. Medication management Follow-up visit in 3 months Outpatient Follow-up Status: Hold For - Scheduling Requested for: [id number] Chief Complaint medck History of Present IllnessAnxiety and depression- lorazepam daily along with Celexa. Doing pretty well. Seems to be dealing with COVID-19 and issues better. Good and bad days. Better since she from . Lives with . Atherosclerosis of [place] coronary artery - Dr Rao in May. Still gets chest pains at times. Nitro not needed No ER for 42 months Benign hypertension - good on no meds. Still tired a lot but better. Sleeps all the time. Making herself stay awake . Biliary sludge - had GB out and doing well. BMI 34. - down another 6 pounds Breast pain - in the rib and better. Constipation - have been problems at times with hemorrhoids. She is having hard stools. She has been on increased water. Miralax daily daily and doing better but still has days Diabetes mellitus, type II - Not as good on diet and in mid 100s with occasional over 200. .A1C is higher at 8.5 up from 7.7 which was down from 8.6%. . She is on Metformin only. Invokana and glimepiride not tolerated. No low sugars. She has not had Trulicity. Not ready to do that. Feels she can get it down with diet. CMP OK Familial combined hyperlipidemia - on no meds due to achiness. Red Rice Yeast and magnesium . TG 378. TC 223. Encouraging walking. GERD and cough - tolerable heartburn at times. Much better since GB out. No meds except Rolaids a couple per week Hypokalemia - no longer on supplement unless she takes Lasix. Not needing those lately. Last was 4.0 Lymphedema - rarely needs Lasix lately Migraine - Sinemet aggravated. . But less lately. Cannot miss Plavix or will get a headache. Narcolepsy still struggles with day time sleepiness but better. . Can sleep anytime. Doing better in forcing herself to not sleep and seems to help. Has been to sleep medicine. LADAN (obstructive sleep apnea) - CPAP every day. Averaging 4 hours. Has a new sleep med doctor at [facility] and looking at new mask Peripheral neuropathy - diabetic - got worse and now the same on no meds. Diabetic socks help. She massages the toes a lot. Hands swollen in AM. She is on Lyrica 75 at 3 per day. And tingling in toes is better with that and the RLS below. No SE. The humidity does make this worse. Pain is 2/9. ADLs unchanged Restless leg syndrome - Sinemet was stopped as above. 5 AM acts up. CBD helps on knees, elbows and hands. Weather aggravates it. Lyrica helps and she is cutting that back Retinopathy due to DM with exam about 9 months ago. OK CSA 01/05/21 UDS 06/08/19- UDS as expected for medication profile; 10/06/20 as expected for medication profile Mammogram 10/28/19 Colonoscopy 03/27/12 I have personally reviewed the patients OARRS report. This report is filed in the EHR. I have considered the risks of abuse, addiction and diversion. I believe it is clinically appropriate to continue to prescribe this medication. 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 Normal [facility] Tobacco Screening.on 021 Fall risk assessment b) One or more fall s in the last year [facility] Work Phone: Tobacco use status CPHS b) No [facility] Work Phone: CBCon 01-03-2021 Erythrocyte distribution width (RBC) [Ratio] 13.2 % Normal 11.5 - 14.5 [facility] Comment on above: Performed By: #### C BC #### [address] [address] Hematocrit (Bld) [Volume fraction] 40.1 % Normal 36.0 - 46.0 [facility] Comment on above: Performed By: #### C BC #### [address] [address] Hemoglobin (Bld) [Mass/Vol] 13.0 g/dL Normal 12.0 - 16.0 [facility] Comment on above: Performed By: #### C BC #### [address] [address] MCHC (RBC) [Mass/Vol] 32.5 g/dL Normal 32.0 - 36.0 [facility] Comment on above: Performed By: #### C BC #### [address] [address] MCV (RBC) [Entitic vol] 91 fL Normal 80 - 100 [facility] Comment on above: Performed By: #### C BC #### [address] [address] Platelets (Bld) [#/Vol] 214 10*3/uL Normal 150 - 450 [facility] Comment on above: Performed By: #### C BC #### [address] [address] RBC 4.40 x10E12/L Normal 4.00 - 5.20 [facility] Comment on above: Performed By: #### C BC #### [address] [address] WBC (Bld) [#/Vol] 5.9 10*3/uL Normal 4.4 - 11.3 [facility] Comment on above: Performed By: #### C BC #### [address] [address] COMPREHENSIVE PANELon 2020 Albumin [Mass/Vol] 4.0 g/dL Normal 3.4 - 5.0 [facility] Comment on above: Performed By: #### C MP #### [address] [address] ALP [Catalytic activity/Vol] 58 U/L Normal 33 - 136 [facility] Comment on above: Performed By: #### C MP #### [address] [address] ALT [Catalytic activity/Vol] 13 U/L Normal 7 - 45 [facility] Comment on above: Result Comment: Janiya ents treated with Sulfasalazine may generate falsely decreased results for ALT. Performed By: #### C MP #### [address] [address] Anion gap [Moles/Vol] 12 mmol/L Normal 10 - 20 [facility] Comment on above: Performed By: #### C MP #### [address] [address] AST [Catalytic activity/Vol] 11 U/L Normal 9 - 39 [facility] Comment on above: Performed By: #### C MP #### [address] [address] Bilirubin [Mass/Vol] 0.4 mg/dL Normal 0.0 - 1.2 [facility] Comment on above: Performed By: #### C MP #### [address] [address] Calcium [Mass/Vol] 9.0 mg/dL Normal 8.6 - 10.3 [facility] Comment on above: Performed By: #### C MP #### [address] [place] [address] Chloride [Moles/Vol] 100 mmol/L Normal 98 - 107 [facility] Comment on above: Performed By: #### C MP #### [address] [address] Creatinine [Mass/Vol] 0.74 mg/dL Normal 0.50 - 1.05 [facility] Comment on above: Performed By: #### C MP #### [address] [address] GFR- AM. >60 Normal >60 [facility] Comment on above: Result Comment: CALC ULATIONS OF ESTIMATED GFR ARE PERFORMED USING THE MDRD STUDY EQUATION FOR THE IDMS-TRACEABLE CREATININE METHODS. CLIN CHEM 2007;53:766-72 Performed By: #### C MP #### [address] [address] GFR-NON AM. >60 Normal >60 [facility] Comment on above: Performed By: #### C MP #### [address] [address] Glucose [Mass/Vol] 187 mg/dL High 74 - 99 [facility] Comment on above: Performed By: #### C MP #### [address] [address] HCO3 (Bld) [Moles/Vol] 31 mmol/L Normal 21 - 32 [facility] Comment on above: Performed By: #### C MP #### [address] [address] Potassium [Moles/Vol] 4.0 mmol/L Normal 3.5 - 5.3 [facility] Comment on above: Performed By: #### C MP #### [address] [address] Protein [Mass/Vol] 5.8 g/dL Low 6.4 - 8.2 [facility] Comment on above: Performed By: #### C MP #### [address] [address] Sodium [Moles/Vol] 139 mmol/L Normal 136 - 145 [facility] Comment on above: Performed By: #### C MP #### [address] [address] Urea nitrogen [Mass/Vol] 12 mg/dL Normal 6 - 23 [facility] Comment on above: Performed By: #### C MP #### [address] [address] FERRITINon 01-03-2021 FERRITIN 98 ug/L Normal 8 - 150 [facility] Comment on above: Performed By: #### F ERRI #### [address] [address] Ferritin, Serumon 01-03-2021 Ferritin [Mass/Vol] 98 ug/L 8 - 150 [facility] Work Phone: HEMOGLOBIN A1Con 01-03-2021 Glucose [Mass/Vol] 197 mg/dL Normal [facility] Comment on above: Performed By: #### H BA1E #### [address] [address] HbA1c (Bld) [Mass fraction] 8.5 % Normal [facility] Comment on above: Result Comment: Diag nosis of Diabetes-Adults Non-Diabetic: < or = 5.6% Increased risk for developing diabetes: 5.7-6.4% Diagnostic of diabetes: > or = 6.5% . Monitoring of Diabetes Age (y) Therapeutic Goal (%) Adults: >18 <7.0 Pediatrics: 13-18 <7.5 7-12 <8.0 0- 6 7.5-8.5 [employer]. Diabetes Care 33(S1), Jun 2009. Performed By: #### H BA1E #### [address] [address] Hemoglobin A1Con 01-03-2021 Glucose [Mass/Vol] 197 mg/dL [facility] Work Phone: HbA1c (Bld) [Mass fraction] 8.5 % [facility] Work Phone: Comment on above: Diagnosis of Diabete s-Adults Non-Diabetic: < or = 5.6% Increased risk for developing diabetes: 5.7-6.4% Diagnostic of diabetes: > or = 6.5%. Monitoring of Diabetes Age (y) Therapeutic Goal (%) Adults: >18 <7.0 Pediatrics: 13-18 <7.5 7-12 <8.0 0- 6 7.5-8.5 [employer]. Diabetes Care 33(S1), Jun 2009. LIPID PANEL (CORONARY RISK 2 )on 01-03-2021 Cholesterol [Mass/Vol] 223 mg/dL High 0 - 199 [facility] Comment on above: Result Comment: . AGE DESIRABLE BORDERLINE HIGH HIGH 0-19 Y 0 - 169 170 - 199 >/= 200 20-24 Y 0 - 189 190 - 224 >/= 225 >24 Y 0 - 199 200 - 239 >/= 240 All ranges are based on fasting samples. Specific therapeutic targets will vary based on patient-specific cardiac risk. . Pediatric guidelines reference:Pediatrics 2011, 128(S5). Adult guidelines reference: NCEP ATPIII Guidelines, YOLETTE 2001, 258:2486-97 . Venipuncture immediately after or during the administration of Metamizole may lead to falsely low results. Testing should be performed immediately prior to Metamizole dosing. Performed By: #### L IPID #### [address] [address] Cholesterol in HDL [Mass/Vol] 35.0 mg/dL Abnormal [facility] Comment on above: Result Comment: . AGE VERY LOW LOW NORMAL HIGH 0-19 Y < 35 < 40 40-45 ---- 20-24 Y ---- < 40 >45 ---- >24 Y ---- < 40 40-60 >60 . Performed By: #### L IPID #### [address] [address] Cholesterol in LDL [Mass/Vol] 112 mg/dL High 0 - 99 [facility] Comment on above: Result Comment: . NEAR BORD AGE DESIRABLE OPTIMAL HIGH HIGH VERY HIGH 0-19 Y 0 - 109 --- 110-129 >/= 130 ---- 20-24 Y 0 - 119 --- 120-159 >/= 160 ---- >24 Y 0 - 99 100-129 130-159 160-189 >/=190 . Performed By: #### L IPID #### [address] [address] Cholesterol in VLDL [Mass/Vol] 76 mg/dL High 0 - 40 [facility] Comment on above: Performed By: #### L IPID #### [address] [address] Cholesterol.total/Cho lesterol in HDL [Mass ratio] 6.4 {ratio} Abnormal [facility] Comment on above: Result Comment: REF VALUES DESIRABLE < 3.4 HIGH RISK > 5.0 Performed By: #### L IPID #### [address] [address] NON-HDL CHOLESTEROL 188 mg/dL Normal [facility] Comment on above: Result Comment: AGE DESIRABLE BORDERLINE HIGH HIGH VERY HIGH 0-19 Y 0 - 119 120 - 144 >/= 145 >/= 160 20-24 Y 0 - 149 150 - 189 >/= 190 ---- >24 Y 30 MG/DL ABOVE LDL CHOLESTEROL GOAL . Performed By: #### L IPID #### [address] [address] Triglyceride [Mass/Vol] 378 mg/dL High 0 - 149 [facility] Comment on above: Result Comment: . AGE DESIRABLE BORDERLINE HIGH HIGH VERY HIGH 0 D-90 D 19 - 174 ---- ---- ---- 91 D- 9 Y 0 - 74 75 - 99 >/= 100 ---- 10-19 Y 0 - 89 90 - 129 >/= 130 ---- 20-24 Y 0 - 114 115 - 149 >/= 150 ---- >24 Y 0 - 149 150 - 199 200- 499 >/= 500 . Venipuncture immediately after or during the administration of Metamizole may lead to falsely low results. Testing should be performed immediately prior to Metamizole dosing. Performed By: #### L IPID #### [address] [address] Laboratory - Chemistry and C hemistry - challengeon 01-03-2021 Albumin BCP dye [Mass/Vol] 4.0 g/dL 3.4 - 5.0 [facility] Work Phone: ALP [Catalytic activity/Vol] 58 U/L 33 - 136 [facility] Work Phone: ALT With P-5'-P [Catalytic activity/Vol] 13 U/L 7 - 45 [facility] Work Phone: Comment on above: Patients treated wit h Sulfasalazine may generate falsely decreased results for ALT. Anion gap [Moles/Vol] 12 mmol/L 10 - 20 [facility] Work Phone: AST With P-5'-P [Catalytic activity/Vol] 11 U/L 9 - 39 [facility] Work Phone: Bilirubin [Mass/Vol] 0.4 mg/dL 0.0 - 1.2 [facility] Work Phone: Calcium [Mass/Vol] 9.0 mg/dL 8.6 - 10.3 [facility] Work Phone: Chloride [Moles/Vol] 100 mmol/L 98 - 107 [facility] Work Phone: CO2 [Moles/Vol] 31 mmol/L 21 - 32 [facility] Work Phone: Creatinine [Mass/Vol] 0.74 mg/dL See Below [facility] Work Phone: Comment on above: Reference Range: 0.5 0 - 1.05 Glucose [Mass/Vol] 187 mg/dL above high threshold 74 - 99 [facility] Work Phone: Potassium [Moles/Vol] 4.0 mmol/L 3.5 - 5.3 [facility] Work Phone: Protein [Mass/Vol] 5.8 g/dL below low threshold 6.4 - 8.2 [facility] Work Phone: Sodium [Moles/Vol] 139 mmol/L 136 - 145 [facility] Work Phone: Urea nitrogen [Mass/Vol] 12 mg/dL 6 - 23 [facility] Work Phone: Laboratory - Hematology and Cell countson 01-03-2021 Erythrocyte distribution width (RBC) [Ratio] 13.2 % See Below [facility] Work Phone: Comment on above: Reference Range: 11. 5 - 14.5 Hematocrit (Bld) [Volume fraction] 40.1 % See Below [facility] Work Phone: Comment on above: Reference Range: 36. 0 - 46.0 Hemoglobin (Bld) [Mass/Vol] 13.0 g/dL See Below [facility] Work Phone: [phone] Comment on above: Reference Range: 12. 0 - 16.0 MCHC (RBC) [Mass/Vol] 32.5 g/dL See Below [facility] Work Phone: Comment on above: Reference Range: 32. 0 - 36.0 MCV (RBC) [Entitic vol] 91 fL 80 - 100 [facility] Work Phone: [phone] Platelets (Bld) [#/Vol] 214 10*3/uL 150 - 450 [facility] Work Phone: [phone] RBC (Bld) [#/Vol] 4.40 {x10E12/L} See Below [facility] Work Phone: [phone] Comment on above: Reference Range: 4.0 0 - 5.20 WBC (Bld) [#/Vol] 5.9 10*3/uL 4.4 - 11.3 [facility] Work Phone: Lipid Panelon 01-03-2021 Cholesterol [Mass/Vol] 223 mg/dL above high threshold 0 - 199 [facility] Work Phone: Comment on above: . AGE DESIRABLE BORD KATE HIGH HIGH 0-19 Y 0 - 169 170 - 199 >/= 200 20-24 Y 0 - 189 190 - 224 >/= 225 >24 Y 0 - 199 200 - 239 >/= 240 All ranges are based on fasting samples. Specific therapeutic targets will vary based on patient-specific cardiac risk.. Pediatric guidelines reference:Pediatrics 2011, 128(S5). Adult guidelines reference: NCEP ATPIII Guidelines, YOLETTE 2001, 258:2486-97. Venipuncture immediately after or during the administration of Metamizole may lead to falsely low results. Testing should be performed immediately prior to Metamizole dosing. Cholesterol in HDL [Mass/Vol] 35.0 mg/dL Abnormal [facility] Work Phone: Comment on above: . AGE VERY LOW LOW N ORMAL HIGH 0-19 Y < 35 < 40 40-45 ---- 20- 24 Y ---- < 40 >45 ---- >24 Y ---- < 40 40-60 >60. Cholesterol in LDL [Mass/Vol] 112 mg/dL above high threshold 0 - 99 [facility] Work Phone: Comment on above: . NEAR BORD AGE MARITZA RABLE OPTIMAL HIGH HIGH VERY HIGH 0-19 Y 0 - 109 --- 110-129 >/= 130 ---- 20-24 Y 0 - 119 --- 120-159 >/= 160 ---- >24 Y 0 - 99 100-129 130-159 160-189 >/=190. Cholesterol non HDL [Mass/Vol] 188 mg/dL [facility] Work Phone: Comment on above: AGE DESIRABLE BORDER LINE HIGH HIGH VERY HIGH 0-19 Y 0 - 119 120 - 144 >/= 145 >/= 160 20-24 Y 0 - 149 150 - 189 >/= 190 ---- >24 Y 30 MG/DL ABOVE LDL CHOLESTEROL GOAL. Cholesterol.total/Cho lesterol in HDL [Mass ratio] 6.4 {ratio} Abnormal [facility] Work Phone: Comment on above: REF VALUESDESIRABLE < 3.4HIGH RISK > 5.0 Triglyceride [Mass/Vol] 378 mg/dL above high threshold 0 - 149 [facility] Work Phone: Comment on above: . AGE DESIRABLE BORD KATE HIGH HIGH VERY HIGH 0 D-90 D 19 - 174 ---- ---- ----91 D- 9 Y 0 - 74 75 - 99 >/= 100 ---- 10-19 Y 0 - 89 90 - 129 >/= 130 ---- 20-24 Y 0 - 114 115 - 149 >/= 150 ---- >24 Y 0 - 149 150 - 199 200- 499 >/= 500. Venipuncture immediately after or during the administration of Metamizole may lead to falsely low results. Testing should be performed immediately prior to Metamizole dosing. Lipid Panel 76 mg/dL above high threshold 0 - 40 [facility] Work Phone: No Panel Informationon 01-03 >60 >60 [facility] Work Phone: Comment on above: CALCULATIONS OF VENKATESH MATED GFR ARE PERFORMED USING THE MDRD STUDY EQUATION FOR THE IDMS-TRACEABLE CREATININE METHODS. CLIN CHEM 2007;53:766-72 Transferrin, Serumon 021 Transferrin [Mass/Vol] 253 mg/dL Normal 200 - 360 [facility] Work Phone: Comment on above: Performed By: #### T RANLonnie #### [facility] [address] [place] [address] DIGITAL MAMM SCREENING W/ TO Rivas 12-16-2020 DIGITAL MAMM SCREENING W/ ZAFAR Patient Name: ELSA PUGH STUDY: Digital mammography screening with zafar; 12/16/2020 11:08 am ACCESSION NUMBER(S): [id number] ORDERING CLINICIAN: CARLOS CLARKE INDICATION: Screening. COMPARISON: Comparison is made to prior digital mammograms dated 10/28/2019 FINDINGS: CC and MLO 2D digital mammograms and digital breast tomosynthesis images were obtained of the bilateral breasts. 3-D volume images were reconstructed in 4 views at an independent workstation as 1 mm slices through the breasts in both the CC and MLO projections. There are areas of scattered fibroglandular tissue. Dystrophic calcifications are present bilaterally, similar to prior studies. No discrete mass or focal asymmetry is identified. No suspicious microcalcifications or foci of architectural distortion are seen. There has been no significant change. This study was interpreted with CAD. IMPRESSION: No mammographic evidence of malignancy. BI-RADS CATEGORY: Category: 2 - Benign. Recommendation: 1 Year Screening. Electronically signed by: CHRISTIN BRODY MD Normal [facility] Mamm - Screening Mammogram w / Tomosynthesison 12-16-2020 MG Breast Screening Normal [facility] Work Phone: OPIATE/OPIOID/BENZO EXTENDED PRESCRIPTION COMPLIANCEon 10-13-2020 6-ACETYLMORPHINE <25 Normal Cutoff <25 [facility] Comment on above: Performed By: #### D SBOP #### [place] [id number] [place] [address] 7-AMINOCLONAZEPAM <25 Normal Cutoff <25 [facility] Comment on above: Performed By: #### D SBOP #### [facility] [id number] [place] [address] ALPHA-HYDROXYALPRAZOL AM <25 Normal Cutoff <25 [facility] Comment on above: Performed By: #### D SBOP #### [facility] [address] [place] [address] ALPHA-HYDROXYMIDAZOLA M <25 Normal Cutoff <25 [facility] Comment on above: Performed By: #### D SBOP #### [facility] [address] [place] [address] ALPRAZOLAM <25 Normal Cutoff <25 [facility] Comment on above: Performed By: #### D SBOP #### [facility] [address] [place] [address] CHLORDIAZEPOXIDE <25 Normal Cutoff <25 [facility] Comment on above: Performed By: #### D SBOP #### [facility] [address] [place] [address] CLONAZEPAM <25 Normal Cutoff <25 [facility] Comment on above: Performed By: #### D SBOP #### [facility] [address] [place] [address] CODEINE <50 Normal Cutoff <50 [facility] Comment on above: Performed By: #### D SBOP #### [facility] [address] [place] [address] DIAZEPAM <25 Normal Cutoff <25 [facility] Comment on above: Performed By: #### D SBOP #### [facility] [address] [place] [address] EDDP,U <25 Normal Cutoff <25 [facility] Comment on above: Result Comment: The performance characteristics of the Methadone Confirmation, Urine has been validated by the individual laboratory site where testing is performed. It has not been cleared or approved by the FDA. However the FDA has determined that such clearance or approval is not necessary. Our Laboratory is certified under the Clinical Laboratory Improvement Amendments of 1988 (CLIA) as qualified to perform high complexity clinical laboratory testing. Performed By: #### D SBOP #### [facility] [address] [place] [id number] FENTANYL CONFIRM,U <2.5 Normal Cutoff<2.5 [facility] Comment on above: Performed By: #### D SBOP #### [facility] [address] [place] [id number] HYDROCODONE <25 Normal Cutoff <25 [facility] Comment on above: Performed By: #### D SBOP #### [facility] [address] [place] [address] HYDROMORPHONE <25 Normal Cutoff <25 [facility] Comment on above: Performed By: #### D SBOP #### [facility] [address] [place] [address] LORAZEPAM 377 ng/mL Abnormal Cutoff <25 [facility] Comment on above: Result Comment: Cons istent with use of a drug containing lorazepam, such as Ativan. Performed By: #### D SBOP #### [facility] [address] [place] [address] METHADONE,U <25 Normal Cutoff <25 [facility] Comment on above: Performed By: #### D SBOP #### [facility] [address] [place] [address] MIDAZOLAM <25 Normal Cutoff <25 [facility] Comment on above: Performed By: #### D SBOP #### [facility] [address] [place] [id number] MORPHINE <50 Normal Cutoff <50 [facility] Comment on above: Performed By: #### D SBOP #### [facility] [address] [place] [address] NORDIAZEPAM <25 Normal Cutoff <25 [facility] Comment on above: Performed By: #### D SBOP #### [facility] [address] [place] [address] NORFENTANYL CONFIRM,U <2.5 Normal Cutoff<2.5 [facility] Comment on above: Result Comment: The performance characteristics of the Fentanyl Confirmation, Urine has been validated by the individual laboratory site where testing is performed. It has not been cleared or approved by the FDA. However the FDA has determined that such clearance or approval is not necessary. Our Laboratory is certified under the Clinical Laboratory Improvement Amendments of 1988 (CLIA) as qualified to perform high complexity clinical laboratory testing. Performed By: #### D SBOP #### [facility] [address] [place] [id number] NORHYDROCODONE <25 Normal Cutoff <25 [facility] Comment on above: Performed By: #### D SBOP #### [facility] [address] [place] [address] NOROXYCODONE <25 Normal Cutoff <25 [facility] Comment on above: Performed By: #### D SBOP #### [facility] [address] [place] [address] O-DESMETHYLTRAMADOL,U <50 Normal Cutoff <50 [facility] Comment on above: Result Comment: The performance characteristics of the Tramadol Confirmation, Urine has been validated by the individual laboratory site where testing is performed. It has not been cleared or approved by the FDA. However the FDA has determined that such clearance or approval is not necessary. Our Laboratory is certified under the Clinical Laboratory Improvement Amendments of 1988 (CLIA) as qualified to perform high complexity clinical laboratory testing. Performed By: #### D SBOP #### [facility] [address] [place] [id number] OXAZEPAM <25 Normal Cutoff <25 [facility] Comment on above: Performed By: #### D SBOP #### [facility] [address] [place] [address] OXYCODONE <25 Normal Cutoff <25 [facility] Comment on above: Performed By: #### D SBOP #### [facility] [address] [place] [address] OXYMORPHONE <25 Normal Cutoff <25 [facility] Comment on above: Result Comment: The performance characteristics of the Opiate Confirmation, Urine has been validated by the individual laboratory site where testing is performed. It has not been cleared or approved by the FDA. However the FDA has determined that such clearance or approval is not necessary. Our Laboratory is certified under the Clinical Laboratory Improvement Amendments of 1988 (CLIA) as qualified to perform high complexity clinical laboratory testing. Performed By: #### D SBOP #### [facility] [address] [place] [id number] TEMAZEPAM <25 Normal Cutoff <25 [facility] Comment on above: Result Comment: The performance characteristics of the Benzodiazepine Confirmation, Urine has been validated by the individual laboratory site where testing is performed. It has not been cleared or approved by the FDA. However the FDA has determined that such clearance or approval is not necessary. Our Laboratory is certified under the Clinical Laboratory Improvement Amendments of 1988 (CLIA) as qualified to perform high complexity clinical laboratory testing. Performed By: #### D SBOP #### [facility] [address] [place] [address] TRAMADOL CONFIRM,U <50 Normal Cutoff <50 [facility] Comment on above: Performed By: #### D SBOP #### [facility] [address] [place] [address] ZOLPIDEM METABOLITE[ZCA] ,U <25 Normal Cutoff <25 [facility] Comment on above: Result Comment: The performance characteristics of the Zolpidem Confirmation, Urine has been validated by the individual laboratory site where testing is performed. It has not been cleared or approved by the FDA. However the FDA has determined that such clearance or approval is not necessary. Our Laboratory is certified under the Clinical Laboratory Improvement Amendments of 1988 (CLIA) as qualified to perform high complexity clinical laboratory testing. Performed By: #### D SBOP #### [facility] [address] [place] [address] ZOLPIDEM,URINE <25 Normal Cutoff <25 [facility] Comment on above: Performed By: #### D SBOP #### [facility] [address] [place] [id number] OPIATE/OPIOID/BENZO EXTENDED PRESCRIPTION COMPLIANCEon 10-07-2020 AMPHETAMINE SCREEN,U Negative Normal NEGATIVE [facility] Comment on above: Result Comment: CUTO FF LEVEL: 500 NG/ML Cross-reactivity has been reported with high concentrations of the following drugs: buproprion, chloroquine, chlorpromazine, ephedrine, mephentermine, fenfluramine, phentermine, phenylpropanolamine, pseudoephedrine, and propranolol. Performed By: #### D SBOP #### [facility] [address] [place] [id number] BARBITURATES SCREEN,U Negative Normal NEGATIVE [facility] Comment on above: Result Comment: CUTO FF LEVEL: 200 NG/ML Performed By: #### D SBOP #### [facility] [address] [place] [address] CANNABINOIDS SCREEN,U Negative Normal NEGATIVE [facility] Comment on above: Result Comment: CUTO FF LEVEL: 50 NG/ML Performed By: #### D SBOP #### [facility] [address] [place] [id number] COCAINE METABOLITE SCREEN,U Negative Normal NEGATIVE [facility] Comment on above: Result Comment: CUTO FF LEVEL: 150 NG/ML Performed By: #### D SBOP #### [facility] [address] [place] [id number] Creatinine [Mass/Vol] 66.6 mg/dL Normal [facility] Comment on above: Result Comment: A ur ine creatinine result >= 20 mg/dL is considered valid without suspicion of dilution. Samples with results below this range will automatically reflex to specific gravity testing to verify specimen integrity. Performed By: #### D SBOP #### [facility] [address] [place] [address] DRUG SCREEN COMMENT. SEE BELOW Normal [facility] Comment on above: Result Comment: Drug screen results are presumptive and should not be used to assess compliance with prescribed medication. Definitive confirmatory drug testing has been added to this sample for any positive screen result and will be reported separately. . Toxicology screening results are reported qualitatively. The concentration must be greater than or equal to the cutoff to be reported as positive. The concentration at which the screening test can detect an individual drug or metabolite varies. The absence of expected drug(s) and/or drug metabolite(s) may indicate non-compliance, inappropriate timing of specimen collection relative to drug administration, poor drug absorption, diluted/adulterated urine, or limitations of testing. For medical purposes only; not valid for forensic use. . Interpretive questions should be directed to the laboratory medical directors. Performed By: #### D SBOP #### [facility] [address] [place] [address] PCP SCREEN,U Negative Normal NEGATIVE [facility] Comment on above: Result Comment: CUTO FF LEVEL: 25 NG/ML Cross-reactivity has been reported with dextromethorphan. Performed By: #### D SBOP #### [facility] [address] 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) Lymphedema (457.1) (I89.0) Iron deficiency anemia (280.9) (D50.9) Narcolepsy (347.00) (G47.419) Migraine (346.90) (G43.909) Restless leg syndrome (333.94) (G25.81) Proliferative retinopathy of both eyes (362.29) (H35.23) Seborrheic dermatitis of scalp (690.18) (L21.9) Status post laparoscopic cholecystectomy (V45.89) (Z90.49) Proliferative diabetic retinopathy of both eyes with macular edema associated with type 2 diabetes mellitus (250.50,362.07,362.02) (E11.3513) Obstructive sleep apnea, adult (327.23) (G47.33) Obesity (278.00) (E66.9) Medication management (V58.69) (Z79.899) Orders Anxiety and depression Renew: Citalopram Hydrobromide 40 MG Oral Tablet; Take 1 tablet daily Renew: LORazepam 1 MG Oral Tablet; TAKE 1 TABLET Bedtime PRN I have personally reviewed the patients OARRS report. This report is filed in the EHR. I have considered the risks of abuse, addiction and diversion. I believe it is clinically appropriate to continue to prescribe this medication. OARRS report reviewed. No evidence of refill acceleration. No inappropriate usage of multiple providers or pharmacies. OARRS report reviewed. No evidence of refill acceleration. No inappropriate usage of multiple providers or pharmacies. 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 Doing pretty well. Seems to be dealing with COVID-19 and issues better. Good and bad days. Atherosclerosis of [place] coronary artery - Dr Rao in May. Still gets chest pains at times. Nitro not needed No ER for 39 months Benign hypertension - good on no meds. Still tired a lot. Sleeps all the time. Making herself stay awake . Biliary sludge - had GB out and doing well. BMI 35. - down another pound Breast pain - left for 3 months. No lump. Lateral. Constipation - have been problems at times with hemorrhoids. She is having hard stools. She has been on increased water. Miralax daily daily and doing better but still has days Diabetes mellitus, type II - Doing much better on diet and so low 100s with occasional over 200. for some reason the last 3 days. .A1C is better at 7.7 down from 8.6%. . She is on Metformin only. Invokana and glimepiride not tolerated. No low sugars. She has not had Trulicity. Familial combined hyperlipidemia - on no meds due to achiness. Red Rice Yeast and magnesium GERD and cough - tolerable heartburn at times. Much better since GB out. No meds except Rolaids a couple per week Hypokalemia - no longer on supplement unless she takes Lasix. Not needing those lately. Last was 4.9. Lymphedema - rarely needs Lasix lately Migraine - Sinemet aggravated. . But less lately. Cannot miss Plavix or will get a headache. Narcolepsy still struggles with day time sleepiness. Can sleep anytime. Doing better in forcing herself to not sleep and seems to help. Has been to sleep medicine. LADAN (obstructive sleep apnea) - CPAP every day. Averaging 5-7 hours. Has a new sleep med doctor at [facility] Peripheral neuropathy - diabetic - got worse and now the same on no meds. Diabetic socks help. She massages the toes a lot. Hands swollen in AM. She is on Lyrica and tingling in toes is better with that and the RLS below. No SE. The humidity does make this worse. Pain is 2/9. ADLs unchanged Restless leg syndrome - Sinemet was stopped as above. 5 AM acts up. CBD helps on knees, elbows and hands. Weather aggravates it. Retinopathy due to DM with exam about 6 months ago. OK CSA 01/14/20 UDS 06/08/19- UDS as expected for medication profile; 10/06/20 as expected for medication profile 1 Mammogram 10/28/19 Colonoscopy 03/27/12 I have personally reviewed the patients OARRS report. This report is filed in the EHR. I have considered the risks of abuse, addiction and diversion. I believe it is clinically ap (more content not included)... Normal [employer] [facility] Surgical Pathology Depar tmenton 09-01-2019 [facility] Surgical Pathology Department Name ELSA PUGH Pathologist: GANGA MANCERA M.D., PhD. Date of Procedure: 09/01/2019 Date Received: 09/01/2019 Date Reported 09/04/2019 Submitting Physician: JANEL SERRANO MD Location: [facility] Surgical Copy To/Referring/Attending: CARLOS CLARKE MD Other External # FINAL DIAGNOSIS A. GALLBLADDER: --GALLBLADDER WITH CHOLELITHIASIS AND FOCAL CHRONIC CHOLECYSTITIS --ONE LYMPH NODE, NO SIGNIFICANT PATHOLOGIC FINDINGS Electronically Signed Out By GANGA MANCERA M.D., PhD./WLI By the signature on this report, the individual or group listed as making the Final Interpretation/Diagnosis certifies that they have reviewed this case. Clinical History: Physician Contact Number: [phone] Fixative (A): Formalin Clinical Diagnosis History Calculus of gallbladder w/o mention of cholecystitis or obstruction Specimens Submitted As: A: GALLBLADDER Gross Description: Received in formalin, labeled with the patient's name and hospital number and gallbladder, is an intact gallbladder, measuring 6.3 x 3.4 x 1.2 cm. A possible lymph node is identified adjacent to the cystic duct, measuring 0.6 x 0.5 x 0.3 cm. The serosal surface is smooth, glistening, and unremarkable. The wall measures up to 0.2 cm in greatest thickness. The lumen contains bile. Green-black, bosselated calculi are present, with a granular cut surface, and range from 0.1-0.4 cm in greatest diameter. A calculus is not impacted in the cystic duct. The mucosal surface is unremarkable. Director Of Corporate Strategy sections consisting of the cystic duct margin, lymph node, and gallbladder wall are submitted in one cassette. CJN cjn/09/01/2019 Normal [facility] Comment on above: Performed By: #### U [facility] #### [facility] Surgical Pathology Department [address] [facility] [address] ECG 12-LEADon 07-23-2019 Atrial Rate [facility] [place] [facility] P-R Interval [facility] Q-T Interval [facility] Q-T Interval (corrected) [facility] QRS Duration [facility] QTC Calculation (Bezet) [facility] R [place] [facility] T [place] [facility] Ventricular Rate [facility] Otheron 06-15-2019 Interpreted by: SHANNAN WIN 15:09MRN: [id number] Name: ELSA PUGH STUDY:US GALLBLADDER; 06/15/2019 9:45 am INDICATION:bloating and history of sludge. COMPARISON:None. ORDERING CLINICIAN:CARLOS CLARKE TECHNIQUE:Grayscale and color Doppler ultrasound evaluation of the right upperquadrant. FINDINGS:LIVER:Right hepatic lobe measures 16.9 cm in length. Liver parenchyma isdiffusely echogenic, with decreased through transmission of soundposteriorly and diminished conspicuity of portal triads. No focalabnormality. GALLBLADDER:There are shadowing hyperechoic gallstones. No gallbladder wallthickening or pericholecystic fluid. According to the stitcher standard machine,the patient is tender during scanning directly over the gallbladder. BILIARY TREE:No intra- or extrahepatic biliary dilatation. The extrahepatic bileduct measures 4 mm. PANCREAS:The visualized head and neck are within normal limits. The body andtail are obscured by shadowing from bowel gas. RIGHT KIDNEY:Normal size, no hydronephrosis. PERITONEUM:No ascites. IMPRESSION:Cholelithiasi s, with focal tenderness reported during scanningdirectly over the gallbladder. This constellation of findings issuspicious for acute cholecystitis. Surgical evaluation isrecommended. Hepatomegaly and steatosis. [place] notify critical result alert was sent to the orderingclinician at 1508 hours on 06/15/2019.Electronicall y signed by: CARINA QUIROZ 06/15/19 15:09 Normal [facility] Work Phone: Otheron 06-08-2019 1-Hydroxymidazolam Confirm (U) [Mass/Vol] <25 Cutoff <25 [facility] Work Phone: 7-Dburwnuqbc-4,5-Dime thyl-3,3-Diphenylpyrr olidine (EDDP) Confirm (U) [Mass/Vol] <25 Cutoff <25 [facility] Work Phone: Comment on above: The performance isabel acteristics of the Methadone Confirmation, Urine has been validated by the individual laboratory site where testing is performed. It has not been cleared or approved by the FDA. However the FDA has determined that such clearance or approval is not necessary. Our Laboratory is certified under the Clinical Laboratory Improvement Amendments of 1988 (CLIA) as qualified to perform high complexity clinical laboratory testing. 6-Monoacetylmorphine (6-PAULINA) Confirm (U) [Mass/Vol] <25 Cutoff <25 [facility] Work Phone: 7-Aminoclonazepam Confirm (U) [Mass/Vol] <25 Cutoff <25 [facility] Work Phone: Alpha hydroxyalprazolam Confirm (U) [Mass/Vol] <25 Cutoff <25 [facility] Work Phone: Alprazolam Confirm (U) [Mass/Vol] <25 Cutoff <25 [facility] Work Phone: Chlordiazepoxide Confirm (U) [Mass/Vol] <25 Cutoff <25 [facility] Work Phone: Clonazepam Confirm (U) [Mass/Vol] <25 Cutoff <25 [facility] Work Phone: Codeine Confirm (U) [Mass/Vol] <25 Cutoff <25 [facility] Work Phone: Diazepam Confirm (U) [Mass/Vol] <25 Cutoff <25 [facility] Work Phone: Fentanyl Confirm (U) [Mass/Vol] <2.5 Cutoff<2.5 [facility] Work Phone: Hydrocodone Confirm (U) [Mass/Vol] <25 Cutoff <25 [facility] Work Phone: Hydromorphone Confirm (U) [Mass/Vol] <25 Cutoff <25 [facility] Work Phone: Lorazepam Confirm (U) [Mass/Vol] 408 ng/mL Abnormal Cutoff <25 [facility] Work Phone: Comment on above: Consistent with use of a drug containing lorazepam, such as Ativan. Methadone Confirm (U) [Mass/Vol] <25 Cutoff <25 [facility] Work Phone: Midazolam Confirm (U) [Mass/Vol] <25 Cutoff <25 [facility] Work Phone: Morphine Confirm (U) [Mass/Vol] <25 Cutoff <25 [facility] Work Phone: Nordiazepam Confirm (U) [Mass/Vol] <25 Cutoff <25 [facility] Work Phone: Norfentanyl Confirm (U) [Mass/Vol] <2.5 Cutoff<2.5 [facility] Work Phone: Comment on above: The performance isabel acteristics of the Fentanyl Confirmation, Urine has been validated by the individual laboratory site where testing is performed. It has not been cleared or approved by the FDA. However the FDA has determined that such clearance or approval is not necessary. Our Laboratory is certified under the Clinical Laboratory Improvement Amendments of 1988 (CLIA) as qualified to perform high complexity clinical laboratory testing. Norhydrocodone Confirm (U) [Mass/Vol] <25 Cutoff <25 [facility] Work Phone: Noroxycodone Confirm (U) [Mass/Vol] <25 Cutoff <25 [facility] Work Phone: Nortramadol (U) [Mass/Vol] <25 Cutoff <25 [facility] Work Phone: Comment on above: The performance isabel acteristics of the Tramadol Confirmation, Urine has been validated by the individual laboratory site where testing is performed. It has not been cleared or approved by the FDA. However the FDA has determined that such clearance or approval is not necessary. Our Laboratory is certified under the Clinical Laboratory Improvement Amendments of 1988 (CLIA) as qualified to perform high complexity clinical laboratory testing. Oxazepam Confirm (U) [Mass/Vol] <25 Cutoff <25 [facility] Work Phone: Oxycodone Confirm (U) [Mass/Vol] <25 Cutoff <25 [facility] Work Phone: Oxymorphone Confirm (U) [Mass/Vol] <25 Cutoff <25 [facility] Work Phone: Comment on above: The performance isabel acteristics of the Opiate Confirmation, Urine has been validated by the individual laboratory site where testing is performed. It has not been cleared or approved by the FDA. However the FDA has determined that such clearance or approval is not necessary. Our Laboratory is certified under the Clinical Laboratory Improvement Amendments of 1988 (CLIA) as qualified to perform high complexity clinical laboratory testing. Temazepam Confirm (U) [Mass/Vol] <25 Cutoff <25 [facility] Work Phone: Comment on above: The performance isabel acteristics of the Benzodiazepine Confirmation, Urine has been validated by the individual laboratory site where testing is performed. It has not been cleared or approved by the FDA. However the FDA has determined that such clearance or approval is not necessary. Our Laboratory is certified under the Clinical Laboratory Improvement Amendments of 1988 (CLIA) as qualified to perform high complexity clinical laboratory testing. Tramadol Confirm (U) [Mass/Vol] <25 Cutoff <25 [facility] Work Phone: Zolpidem (U) [Mass/Vol] <25 Cutoff <25 [facility] Work Phone: <25 Cutoff <25 [facility] Work Phone: Comment on above: The performance isabel acteristics of the Zolpidem Confirmation, Urine has been validated by the individual laboratory site where testing is performed. It has not been cleared or approved by the FDA. However the FDA has determined that such clearance or approval is not necessary. Our Laboratory is certified under the Clinical Laboratory Improvement Amendments of 1988 (CLIA) as qualified to perform high complexity clinical laboratory testing. OouM6odc 12-25-2018 HbA1c (Bld) [Mass fraction] 7.8 % High 4.0-6.3 [facility] Comment on above: Performed By: #### 2 [id number] #### LEN Johnston [address] [place] [address] BMPon 12-24-2018 Anion gap [Moles/Vol] 9 mmol/L Low 10-[address] [facility] Comment on above: Performed By: #### 2 [id number] #### [facility] [address] [place] [address] Calcium [Mass/Vol] 9.1 mg/dL Normal 8.6-10.3 [facility] Comment on above: Performed By: #### 2 [id number] #### [facility] [address] [place] [address] Chloride [Moles/Vol] 100 mmol/L Normal 98-107 [facility] Comment on above: Performed By: #### 2 [id number] #### [facility] [address] [place] [address] CO2 [Moles/Vol] 33.0 mmol/L High 21.0-32.0 [facility] Comment on above: Performed By: #### 2 [id number] #### [facility] [address] [place] [address] Creatinine [Mass/Vol] 0.9 mg/dL Normal 0.5-1.[address] [facility] Comment on above: Performed By: #### 2 164981 #### [facility] [address] [place] [address] Glucose [Mass/Vol] 206 mg/dL High 70-99 [facility] Comment on above: Performed By: #### 2 [id number] #### [facility] [address] [place] [address] Potassium [Moles/Vol] 4.3 mmol/L Normal 3.5-5.[address] [facility] Comment on above: Performed By: #### 2 [id number] #### [facility] [address] [place] [address] Sodium [Moles/Vol] 138 mmol/L Normal 136-145 [facility] Comment on above: Performed By: #### 2 262135 #### [facility] [address] [place] [address] Urea nitrogen [Mass/Vol] 11 mg/dL Normal 6-23 [facility] Comment on above: Performed By: #### 2 475145 #### [facility] [address] [place] [address] Urea nitrogen/Creatinine [Mass ratio] 12.2 ratio Normal 5.4-30.0 [facility] Comment on above: Performed By: #### 2 [id number] #### LEN [facility] [address] [place] [address] eGFRon 12-24-2018 GFR/1.73 sq M predicted among non-blacks MDRD (S/P/Bld) [Vol rate/Area] mL/min/{1.73_m2} Normal [facility] Comment on above: Order Comment: Order added by Discern Expert. Performed By: #### 2 [id number] #### [facility]EN [facility] [address] [place] [address] BMPon 10-20-2018 Anion gap [Moles/Vol] 10 mmol/L Normal 10-[address] [facility] Comment on above: Performed By: #### 2 [id number] #### [facility] [employer] [address] [place] [address] Calcium [Mass/Vol] 9.8 mg/dL Normal 8.6-10.3 [facility] Comment on above: Performed By: #### 2 512921 #### [facility] [address] [place] [address] Chloride [Moles/Vol] 96 mmol/L Low 98-107 [facility] Comment on above: Performed By: #### 2 742973 #### [facility] [address] [place] [address] CO2 [Moles/Vol] 36.0 mmol/L High 21.0-32.0 [facility] Comment on above: Performed By: #### 2 455684 #### [facility] [address] [place] [address] Creatinine [Mass/Vol] 0.9 mg/dL Normal 0.5-1.[address] [facility] Comment on above: Performed By: #### 2 068059 #### [facility] [address] [place] [address] Glucose [Mass/Vol] 155 mg/dL High 70-99 [facility] Comment on above: Performed By: #### 2 435014 #### [facility] [address] [place] [address] Potassium [Moles/Vol] 3.2 mmol/L Low 3.5-5.[address] [facility] Comment on above: Performed By: #### 2 162237 #### [facility] [address] [place] [address] Sodium [Moles/Vol] 138 mmol/L Normal 136-145 [facility] Comment on above: Performed By: #### 2 749202 #### [facility] [address] [place] [address] Urea nitrogen [Mass/Vol] 12 mg/dL Normal 6-23 [facility] Comment on above: Performed By: #### 2 621619 #### [facility] [address] [place] [address] Urea nitrogen/Creatinine [Mass ratio] 13.3 ratio Normal 5.4-30.0 [facility] Comment on above: Performed By: #### 2 179205 #### LEN Mcnulty [facility] [place] [address] eGFRon 10-20-2018 GFR/1.73 sq M predicted among non-blacks MDRD (S/P/Bld) [Vol rate/Area] mL/min/{1.73_m2} Normal [facility] Comment on above: Order Comment: Order added by Discern Expert. Performed By: #### 2 [id number] #### [facility] [address] [place] [address] [id number] 09-19-2018 HbA1c (Bld) [Mass fraction] 7.4 % High 4.0-6.3 [facility] Comment on above: Performed By: #### 2 407230 #### [facility] [address] [place] [address] Lipid Profileon 09-19-2018 Cholesterol [Mass/Vol] 205 mg/dL High 0-199 [facility] Comment on above: Performed By: #### 2 699291 #### [facility] [address] [place] [address] Cholesterol in HDL [Mass/Vol] 31 mg/dL Low 40-60 [facility] Comment on above: Performed By: #### 2 853047 #### [facility] [address] [place] [address] Cholesterol in LDL [Mass/Vol] 104 mg/dL Normal 0-130 [facility] Comment on above: Performed By: #### 2 057659 #### [facility] [address] [place] [address] Cholesterol in VLDL [Mass/Vol] 70 mg/dL High 0-40 [facility] Comment on above: Performed By: #### 2 056555 #### [facility] [address] [place] [address] Triglyceride [Mass/Vol] 352 mg/dL High 0-149 [facility] Comment on above: Result Comment: AGE DESIRABLE BORDERLINE HIGH 91 D - 9 Y 0 - 74 75 - 99 > 100 10 - 19 Y 0 - 89 90 - 129 > 130 20 - 24 Y 0 - 114 115 - 149 > 150 > 25 0 - 149 150 - 199 200 - 499 Performed By: #### 2 [id number] #### [facility] [address] [place] [address] Vit B12on 09-19-2018 Cobalamin (Vitamin B12) [Mass/Vol] 219 pg/mL Normal 180-914 [facility] Comment on above: Performed By: #### 2 169698 #### [facility] [employer] [employer] [facility] [place] [address] BMPon 09-14-2018 Anion gap [Moles/Vol] 9 mmol/L Low 10-[address] [facility] Comment on above: Performed By: #### 1 [id number] #### [facility] [facility] [place] [address] Calcium [Mass/Vol] 8.9 mg/dL Normal 8.6-10.3 [facility] Comment on above: Performed By: #### 1 [id number] #### [facility] [address] [place] [address] Chloride [Moles/Vol] 100 mmol/L Normal 98-107 [facility] Comment on above: Performed By: #### 1 [id number] #### [facility] [employer] [address] [place] [address] CO2 [Moles/Vol] 32.0 mmol/L Normal 21.0-32.0 [facility] Comment on above: Performed By: #### 1 [id number] #### [facility] [address] [place] [address] Creatinine [Mass/Vol] 1.0 mg/dL Normal 0.5-1.[address] [facility] Comment on above: Performed By: #### 1 [id number] #### [facility] [address] [place] [address] Glucose [Mass/Vol] 89 mg/dL Normal 70-99 [facility] Comment on above: Performed By: #### 1 [id number] #### [facility] [address] [place] [address] Potassium [Moles/Vol] 3.9 mmol/L Normal 3.5-5.[address] [facility] Comment on above: Performed By: #### 1 [id number] #### [facility] [address] [place] [address] Sodium [Moles/Vol] 137 mmol/L Normal 136-145 [facility] Comment on above: Performed By: #### 1 [id number] #### [facility] [address] [place] [address] Urea nitrogen [Mass/Vol] 18 mg/dL Normal 6-23 [facility] Comment on above: Performed By: #### 1 [id number] #### [facility] [address] [place] [address] Urea nitrogen/Creatinine [Mass ratio] 18.0 ratio Normal 5.4-30.0 [facility] Comment on above: Performed By: #### 1 [id number] #### [facility] [address] [place] [address] Glucose POCon 09-14-2018 Glucose [Mass/Vol] 111 mg/dL High 70-99 [facility] Comment on above: Performed By: #### 2 [id number] #### [facility] [address] [place] [address] Glucose [Mass/Vol] 87 mg/dL Normal 70-99 [facility] Comment on above: Performed By: #### 2 760636 #### [facility] [address] [place] [address] eGFRon 09-14-2018 GFR/1.73 sq M predicted among non-blacks MDRD (S/P/Bld) [Vol rate/Area] mL/min/{1.73_m2} Normal [facility] Comment on above: Order Comment: Order added by Discern Expert. Performed By: #### 1 [id number] #### LEN [facility] [place] [address] GFR/1.73 sq M predicted among non-blacks MDRD (S/P/Bld) [Vol rate/Area] 57 mL/min/1.73 m2 Normal [facility] Comment on above: Order Comment: Order added by Discern Expert. Performed By: #### 1 [id number] #### [facility] [address] [place] [address] Auto Diffon 09-13-2018 Basophils (Bld) [#/Vol] 0.0 E3/mcL Normal 0.0-0.2 [facility] Comment on above: Order Comment: Order added by Discern Expert. Performed By: #### 1 [id number] #### [facility] [address] [place] [address] Basophils/100 WBC (Bld) 0.2 % Normal 0.0-2.0 [facility] Comment on above: Order Comment: Order added by Discern Expert. Performed By: #### 1 [id number] #### [facility] [address] [place] [address] Eos Absolute 0.1 E3/mcL Normal 0.0-0.7 [facility] Comment on above: Order Comment: Order added by Discern Expert. Performed By: #### 1 [id number] #### [facility] [address] [place] [address] Eosinophils/100 WBC (Bld) 0.5 % Normal 0.0-11.0 [facility] Comment on above: Order Comment: Order added by Discern Expert. Performed By: #### 1 [id number] #### [facility] [address] [place] [address] Lymphocytes (Bld) [#/Vol] 1.7 E3/mcL Normal 1.2-3.4 [facility] Comment on above: Order Comment: Order added by Discern Expert. Performed By: #### 1 [id number] #### LEN [facility] [address] [place] [address] Lymphocytes/100 WBC (Bld) 16.7 % Low 20.0-55.0 [facility] Comment on above: Order Comment: Order added by Discern Expert. Performed By: #### 1 [id number] #### [facility] [address] [place] [address] Tyrrell Absolute 0.8 E3/mcL High 0.0-0.7 [facility] Comment on above: Order Comment: Order added by Discern Expert. Performed By: #### 1 [id number] #### [facility] [address] [place] [address] Monocytes/100 WBC (Bld) 8.1 % Normal 0.0-10.0 [facility] Comment on above: Order Comment: Order added by Discern Expert. Performed By: #### 1 [id number] #### [facility] [address] [place] [address] Neutro Absolute 7.5 E3/mcL High 1.4-6.5 [facility] Comment on above: Order Comment: Order added by Discern Expert. Performed By: #### 1 [id number] #### [facility] [address] [place] [address] Neutro Auto 74.5 % Normal 37.0-75.0 [facility] Comment on above: Order Comment: Order added by Discern Expert. Performed By: #### 1 [id number] #### [facility] [address] [place] [address] BMPon 09-13-2018 Anion gap [Moles/Vol] 10 mmol/L Normal 10-[address] [facility] Comment on above: Performed By: #### 1 [id number] #### [facility] [address] [place] [address] Calcium [Mass/Vol] 9.2 mg/dL Normal 8.6-10.3 [facility] Comment on above: Performed By: #### 1 [id number] #### [facility] [address] [place] [address] Chloride [Moles/Vol] 101 mmol/L Normal 98-107 [facility] Comment on above: Performed By: #### 1 [id number] #### [facility] [address] [place] [address] CO2 [Moles/Vol] 32.0 mmol/L Normal 21.0-32.0 [facility] Comment on above: Performed By: #### 1 [id number] #### [facility] [address] [place] [address] Creatinine [Mass/Vol] 1.2 mg/dL High 0.5-1.[address] [facility] Comment on above: Performed By: #### 1 7464726 #### [facility] [address] [place] [address] Glucose [Mass/Vol] 92 mg/dL Normal 70-99 [facility] Comment on above: Performed By: #### 1 [id number] #### [facility] [address] [place] [address] Potassium [Moles/Vol] 3.9 mmol/L Normal 3.5-5.[address] [facility] Comment on above: Performed By: #### 1 5156699 #### [facility] [address] [place] [address] Sodium [Moles/Vol] 139 mmol/L Normal 136-145 [facility] Comment on above: Performed By: #### 1 [id number] #### [facility] [address] [place] [address] Urea nitrogen [Mass/Vol] 34 mg/dL High 6-23 [facility] Comment on above: Performed By: #### 1 [id number] #### [facility] [address] [place] [address] Urea nitrogen/Creatinine [Mass ratio] 28.3 ratio Normal 5.4-30.0 [facility] Comment on above: Performed By: #### 1 [id number] #### [facility] [address] [place] [address] CBC w/ Auto Diffon 9 Erythrocyte distribution width (RBC) [Ratio] 14.2 % Normal 11.5-14.5 [facility] Comment on above: Performed By: #### 2 [id number] #### [facility] [address] [place] [address] Hematocrit (Bld) [Volume fraction] 35.6 % Low 36.0-48.0 [facility] Comment on above: Performed By: #### 2 [id number] #### LEN [facility] [address] [place] [address] Hemoglobin (Bld) [Mass/Vol] 11.6 g/dL Low 12.0-16.0 [facility] Comment on above: Performed By: #### 2 076521 #### LEN [facility] [address] [place] [address] MCH (RBC) [Entitic mass] 29.6 pg Normal 27.0-31.0 [facility] Comment on above: Performed By: #### 2 530231 #### LEN [facility] [address] [place] [address] MCHC (RBC) [Mass/Vol] 32.7 g/dL Low 33.0-37.[address] [facility] Comment on above: Performed By: #### 2 652911 #### LEN Mcnulty [facility] [place] [address] MCV (RBC) [Entitic vol] 90.7 fL Normal 78.0-100.0 [facility] Comment on above: Performed By: #### 2 482847 #### LEN [facility] [address] [place] [address] Platelet mean volume (Bld) [Entitic vol] 9.9 fL Normal 7.4-11.0 [facility] Comment on above: Performed By: #### 2 636312 #### LEN [facility] [address] [place] [address] Platelets (Bld) [#/Vol] 210 E3/mcL Normal 130-400 [facility] Comment on above: Performed By: #### 2 [id number] #### LEN [facility] [address] [place] [address] RBC (Bld) [#/Vol] 3.92 E6/mcL Normal 3.90-5.40 [facility] Comment on above: Performed By: #### 2 610462 #### LEN [facility] [address] [place] [address] WBC (Bld) [#/Vol] 10.1 E3/mcL Normal 3.6-11.0 [facility] Comment on above: Performed By: #### 2 164977 #### [facility] [address] [place] [address] Glucose POCon 09-13-2018 Glucose [Mass/Vol] 194 mg/dL High 70-99 [facility] Comment on above: Performed By: #### 2 [id number] #### [facility] [address] [place] [address] Glucose [Mass/Vol] 88 mg/dL Normal 70-99 [facility] Comment on above: Performed By: #### 1 [id number] #### [facility] [address] [place] [address] Glucose [Mass/Vol] 71 mg/dL Normal 70-99 [facility] Comment on above: Performed By: #### 1 [id number] #### [facility] [address] [place] [address] Glucose [Mass/Vol] 92 mg/dL Normal 70-99 [facility] Comment on above: Performed By: #### 1 [id number] #### [facility] [address] [place] [address] Magnesiumon 09-13-2018 Magnesium [Mass/Vol] 2.0 mg/dL Normal 1.6-2.4 [facility] Comment on above: Performed By: #### 1 [id number] #### [facility] [address] [place] [address] Phosphoruson 09-13-2018 Phosphate [Mass/Vol] 4.3 mg/dL Normal 2.5-4.9 [facility] Comment on above: Performed By: #### 1 [id number] #### [facility] [address] [place] [address] U Creatinineon 09-13-2018 U Creatinine 56 mg/dL Normal 20-300 [facility] Comment on above: Performed By: #### 2 464406 #### [facility] [address] [place] [address] U Proteinon 09-13-2018 Protein [Mass/Vol] 4 mg/dL Normal 1-14 [facility] Comment on above: Performed By: #### 2 [id number] #### [facility] [address] [place] [address] U Sodiumon 09-13-2018 Sodium [Moles/Vol] 95 mmol/L Normal [facility] Comment on above: Performed By: #### 2 467305 #### [facility] [address] [place] [address] UA Completeon 09-13-2018 Color (U) Yellow Normal Yellow [facility] Comment on above: Performed By: #### 2 275177 #### [facility] [address] [place] [address] Glucose (U) [Mass/Vol] Negative Normal Negative [facility] Comment on above: Performed By: #### 2 821905 #### [facility] [address] [place] [address] Ketones Ql (U) Negative Normal Negative [facility] Comment on above: Performed By: #### 2 343963 #### [facility] [address] [place] [address] UA Blood Negative Normal Negative [facility] Comment on above: Performed By: #### 2 126761 #### [facility] [address] [place] [address] UA Bacteria Trace Abnormal None [facility] Comment on above: Performed By: #### 2 361325 #### [facility] [address] [place] [address] UA Clarity Clear Normal Clear [facility] Comment on above: Performed By: #### 2 650302 #### [facility] [address] [place] [address] UA Leuk Est Negative Normal Negative [facility] Comment on above: Performed By: #### 2 340148 #### [facility] [address] [place] [address] UA Nitrite Negative Normal Negative [facility] Comment on above: Performed By: #### 2 730546 #### [facility] [address] [place] [address] UA pH 6.0 Normal 4.6-8.0 [facility] Comment on above: Performed By: #### 2 535039 #### [facility] [address] [place] [address] UA Protein Negative Normal Negative [facility] Comment on above: Performed By: #### 2 432967 #### [facility] [address] [place] [address] UA Spec Grav 1.013 Normal 1.003-1.030 [facility] Comment on above: Performed By: #### 2 442185 #### [facility] [address] [place] [address] UA Squam Epithelial 0-5 Normal 0-5 [facility] Comment on above: Performed By: #### 2 346072 #### [facility] [address] [place] [address] UA Urobilinogen Negative Normal [facility] Comment on above: Result Comment: Due to a manufacturing issue, low positive urobilinogen results may be fasely positive. Correlate with urine bilirubin and additional clinical/laboratory findings to assess the risk of hemolytic anemia or liver disease. If clinically indicated, repeat testing with an alternate method is available by contacting the laboratory within 24 hours. Performed By: #### 2 [id number] #### [facility] [address] [place] [address] UA WBC 0-5 Normal 0-5 [facility] Comment on above: Performed By: #### 2 178991 #### [facility] [address] [place] [address] Urobilinogen Qn (U) Negative Normal Negative [facility] Comment on above: Performed By: #### 2 192129 #### [facility] [place] [address] eGFRon 09-13-2018 GFR/1.73 sq M predicted among non-blacks MDRD (S/P/Bld) [Vol rate/Area] 43 mL/min/1.73 m2 [facility] Comment on above: Order Comment: Order added by Discern Expert. Performed By: #### 1 [id number] #### [facility] [address] [place] [address] GFR/1.73 sq M predicted among non-blacks MDRD (S/P/Bld) [Vol rate/Area] 52 mL/min/1.73 m2 Normal [facility] Comment on above: Order Comment: Order added by Wilmer Expert. Performed By: #### 1 [id number] #### [facility] [address] [place] [address] .Manual Abson 09-12-2018 Basophil Abs Man 0.0 10x3/ Normal 0.0-0.2 [facility] Comment on above: Order Comment: Order Added by Wilmer Expert. Performed By: #### 3 [id number] #### LEN [facility] [address] [place] [address] Eos Abs Man 0.0 10x3/ Normal 0.0-0.5 [facility] Comment on above: Order Comment: Order Added by Wilmer Expert. Performed By: #### 3 [id number] #### LEN [facility] [address] [place] [address] Lymph Abs Man 1.3 10x3/ Normal 1.2-3.4 [facility] Comment on above: Order Comment: Order Added by Wilmer Expert. Performed By: #### 3 [id number] #### LEN [facility] [address] [place] [address] Tyrrell Abs Man 0.4 10x3/ Normal 0.0-0.7 [facility] Comment on above: Order Comment: Order Added by Wilmer Expert. Performed By: #### 3 [id number] #### LEN [facility] [address] [place] [address] Segs Abs Man 16.9 10x3/ High 1.4-6.5 [facility] Comment on above: Order Comment: Order Added by Wilmer Expert. Performed By: #### 3 [id number] #### LEN [facility] [address] [place] [address] BMPon 09-12-2018 Anion gap [Moles/Vol] 17 mmol/L Normal 10-[address] [facility] Comment on above: Performed By: #### 2 633961 #### [facility] [address] [place] [address] Calcium [Mass/Vol] 9.7 mg/dL Normal 8.6-10.3 [facility] Comment on above: Performed By: #### 2 132212 #### [facility] [address] [place] [address] Chloride [Moles/Vol] 101 mmol/L Normal 98-107 [facility] Comment on above: Performed By: #### 2 785495 #### [facility] [address] [place] [address] CO2 [Moles/Vol] 20.0 mmol/L Low 21.0-32.0 [facility] Comment on above: Performed By: #### 2 875352 #### [facility] [address] [place] [address] Creatinine [Mass/Vol] 2.7 mg/dL High 0.5-1.[address] [facility] Comment on above: Performed By: #### 2 137348 #### [facility] [address] [place] [address] Glucose [Mass/Vol] 164 mg/dL High 70-99 [facility] Comment on above: Performed By: #### 2 268341 #### [facility] [address] [place] [address] Potassium [Moles/Vol] 7.6 mmol/L Critically abnormal 3.5-5.3 [facility] Comment on above: Result Comment: Crit ical Result (s) Called to and read back by: MELO OHARA at: 09/12/2018 04:58:40 by:GARY Performed By: #### 2 [id number] #### [facility] [address] [place] [address] Sodium [Moles/Vol] 130 mmol/L Low 136-145 [facility] Comment on above: Performed By: #### 2 714806 #### [facility] [address] [place] [address] Urea nitrogen [Mass/Vol] 57 mg/dL High 6-23 [facility] Comment on above: Performed By: #### 2 897124 #### [facility] [address] [place] [address] Urea nitrogen/Creatinine [Mass ratio] 21.1 ratio Normal 5.4-30.0 [facility] Comment on above: Performed By: #### 2 785122 #### [facility] [address] [place] [address] CBC w/ Auto Diffon Erythrocyte distribution width (RBC) [Ratio] 14.3 % Normal 11.5-14.5 [facility] Comment on above: Performed By: #### 2 066402 #### LEN [facility] [address] [place] [address] Hematocrit (Bld) [Volume fraction] 37.4 % Normal 36.0-48.0 [facility] Comment on above: Performed By: #### 2 698991 #### LEN [facility] [address] [place] [address] Hemoglobin (Bld) [Mass/Vol] 12.0 g/dL Normal 12.0-16.0 [facility] Comment on above: Performed By: #### 2 170278 #### LEN [facility] [address] [place] [address] MCH (RBC) [Entitic mass] 28.8 pg Normal 27.0-31.0 [facility] Comment on above: Performed By: #### 2 940819 #### LEN [facility] [address] [place] [address] MCHC (RBC) [Mass/Vol] 32.0 g/dL Low 33.0-37.[address] [facility] Comment on above: Performed By: #### 2 638648 #### LEN [facility] [address] [place] [address] MCV (RBC) [Entitic vol] 90.0 fL Normal 78.0-100.0 [facility] Comment on above: Performed By: #### 2 095913 #### LEN [employer] [address] [place] [address] Platelet mean volume (Bld) [Entitic vol] 10.0 fL Normal 7.4-11.0 [facility] Comment on above: Performed By: #### 2 687794 #### LEN [facility] [address] [place] [address] Platelets (Bld) [#/Vol] 278 E3/mcL Normal 130-400 [facility] Comment on above: Performed By: #### 2 133575 #### LEN [facility] [address] [place] [address] RBC (Bld) [#/Vol] 4.16 E6/mcL Normal 3.90-5.40 [facility] Comment on above: Performed By: #### 2 607366 #### LEN [facility] [address] [place] [address] WBC (Bld) [#/Vol] 19.2 E3/mcL High 3.6-11.0 [facility] Comment on above: Performed By: #### 2 066461 #### LEN [facility] [address] [place] [address] Flu A/B by PCRon 09-12-2018 Flu A Negative Normal Negative [facility] Comment on above: Performed By: #### 2 [id number] #### [facility] [address] [place] [address] Flu B Negative Normal Negative [facility] Comment on above: Performed By: #### 2 447011 #### [facility] [address] [place] [address] Glucose POCon 09-12-2018 Glucose [Mass/Vol] 103 mg/dL High 70-99 [facility] Comment on above: Performed By: #### 2 [id number] #### LEN [employer] [address] [place] [address] Glucose [Mass/Vol] 115 mg/dL High 70-99 [facility] Comment on above: Performed By: #### 2 [id number] #### LEN [employer] [address] [place] [address] Hep Func Panelon 09-12-2018 Albumin [Mass/Vol] 4.4 g/dL Normal 3.4-5.0 [facility] Comment on above: Performed By: #### 2 [id number] #### LEN [employer] [address] [place] [address] Albumin/Globulin [Mass ratio] 1.9 {ratio} Normal 1.1-1.9 [facility] Comment on above: Performed By: #### 2 [id number] #### LEN [employer] [address] [place] [address] Alk Phos 56 Int._Unit/L Normal 33-136 [facility] Comment on above: Performed By: #### 2 125380 #### LEN [employer] [address] [place] [address] ALT [Catalytic activity/Vol] 17 Int._Unit/L Normal 7-45 [facility] Comment on above: Performed By: #### 2 [id number] #### LEN [employer] [address] [place] [address] AST [Catalytic activity/Vol] 14 Int._Unit/L Normal 9-39 [facility] Comment on above: Performed By: #### 2 802432 #### LEN [employer] [address] [place] [address] Bili Indirect 0.26 mg/dL Normal [facility] Comment on above: Result Comment: No e stablished ranges available for the indirect bilirubin Performed By: #### 2 344651 #### [facility]EN [employer] [address] [place] [address] Bili Total 0.31 mg/dL Normal 0.00-1.20 [facility] Comment on above: Performed By: #### 2 527484 #### LEN [employer] [address] [place] [address] Globulin (S) [Mass/Vol] 2.0 g/dL Normal 2.0-4.0 [facility] Comment on above: Performed By: #### 2 460502 #### LEN [employer] [address] [place] [address] Protein [Mass/Vol] 6.7 g/dL Normal 6.4-8.2 [facility] Comment on above: Performed By: #### 2 786150 #### LEN [employer] [address] [place] [address] Bili Direct 0.05 mg/dL Normal 0.00-0.30 [facility] Comment on above: Performed By: #### 2 376783 #### LEN [employer] [address] [place] [address] Lipase Levelon 09-12-2018 Lipase Lvl 29 Int._Unit/L Normal 9-82 [facility] Comment on above: Performed By: #### 2 089022 #### LEN [employer] [address] [place] [address] Manual Diffon 09-12-2018 Band form neutrophils/100 WBC (Bld) 3 High 0-1 [facility] Comment on above: Order Comment: Order Added by Discern Expert. Performed By: #### 2 403930 #### LEN [employer] [address] [place] [address] Basophil Man 0 % Normal 0-1 [facility] Comment on above: Order Comment: Order Added by Discern Expert. Performed By: #### 2 046633 #### LEN [employer] [address] [place] [address] Eosinophils/100 WBC (Bld) 0 % Normal 0-5 [facility] Comment on above: Order Comment: Order Added by Discern Expert. Performed By: #### 2 253415 #### LEN [employer] [address] [place] [address] Lymphocytes/100 WBC (Bld) 7 % Low 14-48 [facility] Comment on above: Order Comment: Order Added by Discern Expert. Performed By: #### 2 680727 #### LEN [employer] [address] [place] [address] Monocyte Man 2 % Normal 1-11 [facility] Comment on above: Order Comment: Order Added by Discern Expert. Performed By: #### 2 456930 #### LEN [employer] [address] [place] [address] RBC morphology finding Nom (Bld) NORMAL Normal [facility] Comment on above: Order Comment: Order Added by Discern Expert. Performed By: #### 2 664534 #### LEN [employer] [address] [place] [address] Segs Man 88 % High 37-75 [facility] Comment on above: Order Comment: Order Added by Discern Expert. Performed By: #### 2 592764 #### LEN [employer] [address] [place] [address] Potassiumon 09-12-2018 Potassium [Moles/Vol] 5.8 mmol/L High 3.5-5.[address] [facility] Comment on above: Performed By: #### 2 172823 #### [facility]EN [employer] [address] [place] [id number] TSHon 09-12-2018 TSH Qn 2.61 mcIU/mL Normal 0.30-5.60 [facility] Comment on above: Performed By: #### 2 458770 #### LEN [facility] [place] [address] Troponin-Ion 09-12-2018 Troponin I.cardiac [Mass/Vol] 0.01 ng/mL Normal .00-.03 [facility] Comment on above: Performed By: #### 2 908119 #### LEN [employer] [address] [place] [address] Uric Acidon 09-12-2018 Urate [Mass/Vol] 9.1 mg/dL High 2.3-6.7 [facility] Comment on above: Order Comment: kitty salcedo use previous blood sample Performed By: #### 2 294522 #### LEN [employer] [address] [place] [address] eGFRon 09-12-2018 GFR/1.73 sq M predicted among non-blacks MDRD (S/P/Bld) [Vol rate/Area] 22 mL/min/1.73 m2 [facility] Comment on above: Order Comment: Order added by Discern Expert. Performed By: #### 1 [id number] #### [facility] [employer] [address] [place] [address] GFR/1.73 sq M predicted among non-blacks MDRD (S/P/Bld) [Vol rate/Area] 18 mL/min/1.73 m2 [facility] Comment on above: Order Comment: Order added by Discern Expert. Performed By: #### 1 [id number] #### [facility]EN [employer] [facility] [place] 3335505 zzplt morphon 09-12-2018 Platelet morphology finding Nom (Bld) ENLARGED Normal [facility] Comment on above: Performed By: #### 9 [id number] #### LEN [employer] [address] [place] [address] Platelets (Bld) [#/Vol] NORMAL [facility] Comment on above: Performed By: #### 9 [id number] #### [facility] [place] [address] Basic Metabolic Panelon 08-15 Calcium 9.3 mg/dL Normal 8.4-10.2 [facility] Comment on above: Performed By: #### L IPASE, EDCTNI, CMET, CBCDIF ####Unless otherwise noted, all testing performed by [place] [phone]: [id number] Director: Leonardo Miller M.D. Chloride 94 mmol/L Low 98-108 [facility] Comment on above: Performed By: #### L IPASE, EDCTNI, CMET, CBCDIF ####Unless otherwise noted, all testing performed by [place] [phone]: [id number] Director: Leonardo Miller M.D. CO2 30 mmol/L Normal 21-32 [facility] Comment on above: Performed By: #### L IPASE, EDCTNI, CMET, CBCDIF ####Unless otherwise noted, all testing performed by [address] [phone]: [id number] Director: Leonardo Miller M.D. Creatinine 1.04 mg/dL Normal 0.60-1.20 [facility] Comment on above: Performed By: #### L IPASE, EDCTNI, CMET, CBCDIF ####Unless otherwise noted, all testing performed by [address] [phone]: [id number] Director: Leonardo Miller M.D. eGFR (black) mL/min/{1.73_m2} Normal [facility] Comment on above: Result Comment: Afri can [place]an GFR Calc Performed By: #### L IPASE, EDCTNI, CMET, CBCDIF ####Unless otherwise noted, all testing performed by [address] [phone]: [id number] Director: Leonardo Miller M.D. eGFR (non-black) 53 mL/min/{1.73_m2} Low >60 [facility] Comment on above: Result Comment: Non- GFR CalceGFR is an estimated Glomerular Filtration Rate based on the valueof the patient's serum creatinine. In outpatients, eGFR should be usedas a helpful tool in screening for CKD. In inpatients or patients withacute renal failure, eGFR represents the GFR at the moment of the drawand should be used with caution. Performed By: #### L IPASE, EDCTNI, CMET, CBCDIF ####Unless otherwise noted, all testing performed by [address] [phone]: [id number] Director: Leonardo Miller M.D. Glucose mass conc 136 mg/dL High 70-99 [facility] Comment on above: Result Comment: This test result might be falsely depressed or falsely elevated onsamples drawn from patients taking Sulfasalazine and Sulfapyridine.Venipuncture should occur prior to taking either of these drugs. Performed By: #### L IPASE, EDCTNI, CMET, CBCDIF ####Unless otherwise noted, all testing performed by [address] [phone]: [id number] Director: Leonardo Miller M.D. Potassium molar conc 3.9 mmol/L Normal 3.5-5.1 [facility] Comment on above: Performed By: #### L IPASE, EDCTNI, CMET, CBCDIF ####Unless otherwise noted, all testing performed by [address] [phone]: [id number] Director: Leonardo Miller M.D. Sodium 132 mmol/L Low 135-145 [facility] Comment on above: Performed By: #### L IPASE, EDCTNI, CMET, CBCDIF ####Unless otherwise noted, all testing performed by [address] [phone]: [id number] Director: Leonardo Miller M.D. Urea nitrogen 13 mg/dL Normal 8-25 [facility] Comment on above: Performed By: #### L IPASE, EDCTNI, CMET, CBCDIF ####Unless otherwise noted, all testing performed by [address] [phone]: [id number] Director: Leonardo Miller M.D. CBC with Diffon 08-30-2017 Basophils Auto #/vol (Bld) 0.0 K/mcL Normal 0-0.2 [facility] Comment on above: Performed By: #### L IPASE, EDCTNI, CMET, CBCDIF ####Unless otherwise noted, all testing performed by [address] [phone]: [id number] Director: Leonardo Miller M.D. Basophils/100 WBC Auto (Bld) 0.6 % Normal [facility] Comment on above: Performed By: #### L IPASE, EDCTNI, CMET, CBCDIF ####Unless otherwise noted, all testing performed by [address] [phone]: [id number] Director: Leonardo Miller M.D. Eosinophils 0.1 K/mcL Normal 0-0.5 [facility] Comment on above: Performed By: #### L IPASE, EDCTNI, CMET, CBCDIF ####Unless otherwise noted, all testing performed by [address] [phone]: [id number] Director: Leonardo Miller M.D. Eosinophils/100 leukocytes 1.8 % Normal [facility] Comment on above: Performed By: #### L IPASE, EDCTNI, CMET, CBCDIF ####Unless otherwise noted, all testing performed by [address] [phone]: [id number] Director: Leonardo Miller M.D. Erythrocyte distribution width Auto Ratio (RBC) 12.8 % Normal 10.0-14.4 [facility] Comment on above: Performed By: #### L IPASE, EDCTNI, CMET, CBCDIF ####Unless otherwise noted, all testing performed by [address] [phone]: [id number] Director: Leonardo Miller M.D. Erythrocytes (RBC) 4.61 M/mcL Normal 3.7-5.0 [facility] Comment on above: Performed By: #### L IPASE, EDCTNI, CMET, CBCDIF ####Unless otherwise noted, all testing performed by [address] [phone]: [id number] Director: Leonardo Miller M.D. Hematocrit (HCT) 41.6 % Normal 34.4-44.8 [facility] Comment on above: Performed By: #### L IPASE, EDCTNI, CMET, CBCDIF ####Unless otherwise noted, all testing performed by [address] [phone]: [id number] Director: Leonardo Miller M.D. Hemoglobin mass conc (Bld) 13.9 g/dL Normal 11.6-15.4 [facility] Comment on above: Performed By: #### L IPASE, EDCTNI, CMET, CBCDIF ####Unless otherwise noted, all testing performed by [address] [phone]: [id number] Director: Leonardo Miller M.D. Lymphocytes 1.3 K/mcL Normal 1.0-3.7 [facility] Comment on above: Performed By: #### L IPASE, EDCTNI, CMET, CBCDIF ####Unless otherwise noted, all testing performed by [address] [phone]: [id number] Director: Leonardo Miller M.D. Lymphocytes/100 leukocytes 19.3 % Normal [facility] Comment on above: Performed By: #### L IPASE, EDCTNI, CMET, CBCDIF ####Unless otherwise noted, all testing performed by [address] [phone]: [id number] Director: Leonardo Miller M.D. MCH 30.1 pg Normal 27.9-33.9 [facility] Comment on above: Performed By: #### L IPASE, EDCTNI, CMET, CBCDIF ####Unless otherwise noted, all testing performed by [address] [phone]: [id number] Director: Leonardo Miller M.D. MCHC mass conc (RBC) 33.4 g/dL Normal 33.1-35.1 [facility] Comment on above: Performed By: #### L IPASE, EDCTNI, CMET, CBCDIF ####Unless otherwise noted, all testing performed by [address] [phone]: [id number] Director: Leonardo Miller M.D. MCV 90.1 fL Normal 82.6-98.9 [facility] Comment on above: Performed By: #### L IPASE, EDCTNI, CMET, CBCDIF ####Unless otherwise noted, all testing performed by [place] [phone]: [id number] Director: Leonardo Miller M.D. Monocytes 0.8 K/mcL High 0.1-0.6 [facility] Comment on above: Performed By: #### L IPASE, EDCTNI, CMET, CBCDIF ####Unless otherwise noted, all testing performed by [address] [phone]: [id number] Director: Leonardo Miller M.D. Monocytes/100 leukocytes 11.5 % Normal [facility] Comment on above: Performed By: #### L IPASE, EDCTNI, CMET, CBCDIF ####Unless otherwise noted, all testing performed by [address] [phone]: [id number] Director: Leonardo Miller M.D. Neutrophils 4.5 K/mcL Normal 1.2-6.9 [facility] Comment on above: Performed By: #### L IPASE, EDCTNI, CMET, CBCDIF ####Unless otherwise noted, all testing performed by [address] [phone]: [id number] Director: Leonardo Miller M.D. Platelet mean volume (PMV) 9.2 fL Normal 7.0-10.6 [facility] Comment on above: Performed By: #### L IPASE, EDCTNI, CMET, CBCDIF ####Unless otherwise noted, all testing performed by [address] [phone]: [id number] Director: Leonardo Miller M.D. Platelets 255 K/mcL Normal 162-402 [facility] Comment on above: Performed By: #### L IPASE, EDCTNI, CMET, CBCDIF ####Unless otherwise noted, all testing performed by [address] [phone]: [id number] Director: Leonardo Miller M.D. Segmented Neut % 66.8 % Normal [facility] Comment on above: Performed By: #### L IPASE, EDCTNI, CMET, CBCDIF ####Unless otherwise noted, all testing performed by [address] [phone]: [id number] Director: Leonardo Miller M.D. WBC (Leukocytes) 6.8 K/mcL Normal 3.4-10.6 [facility] Comment on above: Performed By: #### L IPASE, EDCTNI, CMET, CBCDIF ####Unless otherwise noted, all testing performed by [address] [phone]: [id number] Director: Leonardo Miller M.D. Glucose, POCon 08-30-2017 Glucose mass conc 163 mg/dL High [address] [place] [address] Comment on above: Performed By: #### L IPASE, EDCTNI, CMET, CBCDIF ####Unless otherwise noted, all testing performed by [address] [phone]: [id number] Director: Leonardo Miller M.D. Glucose mass conc 168 mg/dL High [address] [facility] Comment on above: Performed By: #### L IPASE, EDCTNI, CMET, CBCDIF ####Unless otherwise noted, all testing performed by [address] [phone]: [id number] Director: Leonardo Miller M.D. Operation-Procedureon 2017 Operation-Procedure [address] [address]QIPBELSA DANIEL [id number] 4DATE 08/29/2017OPERATIVE REPORT / PROCEDURE NOTESURGEON MICK ABREU, MDPROCEDURE1. Left heart catheterization with selective coronary angiography and leftventriculography.2. Selective bypass graft angiography.3. Successful catheter based intervention with drug-eluting stent placementto the proximal and distal body of the saphenous vein graft to theposterior descending branch of the right coronary artery, residualstenosis 0% with DARSHAN-3 flow.CLINICAL INDICATIONPatient is a 62-year-old white female intolerant to plaque stabilizationtherapies and aspirin. She has had previous bypass grafting and a history ofmultivessel catheter-based intervention. She has had multiple catheter basedprocedures to a saphenous vein graft to the posterior descending branch of theright coronary artery. She represents with unstable angina.Electrocardiogram is nonacute.TECHNIQUEThe patient was prepped and draped in usual manner and premedicated with Versedand Nubain. After infiltration of 2% Xylocaine and using a micropuncturetechnique a 6-Vincentian arterial sheath placed in right femoral artery. Nextover a guidewire 6-Vincentian JL4 and JR4 diagnostic catheters were used forselective coronary angiography and bypass graft angiography in various MOLDOVAN andRAOprojections. The 6-Vincentian JR4 was used for left ventriculography in the RAOprojection with nonionic contrast. Pullback pressure was obtained across theaortic valve. We then proceeded with catheter-based intervention. Followingcatheter-based intervention the guiding catheter and sheath were removed andStarClose was used for hemostasis. Patient tolerated the procedure well andreturned to her room in satisfactory condition.HEMODYNAMICSAo rtic pressure was 134/70. LV pressure was 134/16.DESCRIPTIONSLeft main: Left main has minimal luminal irregularities.Left circumflex: Left circumflex courses in the AV groove. The proximalconduit has 25% to 30% luminal irregularities. This vessel gives rise to amedium caliber bifurcating lateral branch that has no angiographic definabledisease. The proximal circumflex has 25% to 50% luminal irregularity,angiographi adina, this appears closer to 40%. The circumflex in the AV grooveis a somewhat small caliber vessel and terminates in a posterolateral branchthat has minimal luminal irregularities.Left anterior descending: Left anterior descending courses to supply theapex. This vessel gives rise to a medium caliber bifurcating diagonal branchthe proximal portion of which is a stented segment with no angiographicevidence of restenosis. The proximal portion of the left anterior descendingis a stented segment with no angiographic evidence of restenosis. The midanterior descending has a 40% to 50% luminal irregularity. The remainder ofthe anterior circulation has diffuse luminal irregularities.Left ventricle: Overall left ventricular function was estimated at 58%. Noclear regional wall motion abnormalities were noted. There is no gradientacross the aortic valve. There was no angiographic evidence of mitral valveinsufficiency.Left internal mammary artery to the mid left anterior descending is known isabella occluded and was not selectively injected.Right coronary artery: Right coronary artery is occluded proximally at thesite of previous stent implantation.Saphenous vein graft: The posterior descending branch is patent, theposterior descending branch fills from the graft. There is retrogradefilling of the distal right with graft injections. The distal body of thegraft is a stented segment with 90% luminal irregularity. This is consistentwith angiographic evidence of restenosis. The proximal body of the graft hasa 70% to 80% de pete ulcerated luminal irregularity. There may be a componentofintraluminal thrombus within this segment. There is normal DARSHAN-3 flow withinthe saphenous vein graft.DIAGNOSES1. Normal left ventricular systolic function with an estimated LV ejectionfractionof 58%.2. Normal left ventricular end-diastolic pressure.3. 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 Patent saphenous vein graft to the posterior descending branch of theright coronary artery with high-grade restenotic process in the distalbody of the graft, high grade disease in the proximal body of the graftwith a component of intraluminal thrombus.5. Triple-vessel coronary disease with no angiographic evidence ofrestenosis within the anterior circulation.We proceeded with catheter-based intervention targeting what we thought wasthe culprit segment for her clinical presentation in the saphenous vein graftto posterior descending branch of the right coronary artery. For recurrentsymptom complex consideration could be entertained for a OPERATING COST CLERK procedure of theright coronary artery. Unfortunately she has been intolerant to a wide rangeof plaque stabilization therapies.We used a 6-Vincentian JR4 guiding catheter and setup views for the saphenous veingraft were obtained in the MOLDOVAN projection. The patient received 70U/kgof unfractionated heparin. Following pretreatment with intracoronarynitroglycer in the lesion In the saphenous vein graft was crossed with 300cm ATWmarker wire. We pre-dilated both the proximal body and the distal body of thegraft with a 2.5 x 20mm TREK balloon that was inflated to nominal pressures.The balloon was then removed and repeat angiographic views were obtainedfollowing administration of intracoronary nitroglycerin. We then proceededwith drug-eluting stent placement placing a 4.0 x 20mm Synergy drug-elutingstent in the proximal body of the graft, and a 4.0 x 24mm drug-eluting Synergystent in the distal body of the graft. Both stents were deployed at 16atmospheres. We post dilated the stented segment with a 4.5 x 20mmnoncompliant balloon that was inflated to 18 atmospheres within the stentedsegments. Overlapping inflations were performed to high pressure. The balloonwasthen removed and repeat angiographic views was obtained in various MOLDOVAN and RAOprojections following administration of nitroglycerin and verapamil. Theresidual stenosis was 0% with DARSHAN-3 flow. The guiding catheter and sheathwere removed and StarClose was used for hemostasis. The patient tolerated theprocedure well and returned to her room in satisfactory condition.MICK ABREU, [facility] 08/30/2017 08:36 [id number] 08/30/2017 10:10 GME/MODLElectronically Signed By Mick Abreu M.D. on 30 Aug 2017 18:40:20 GMT Normal [facility] Activated Clotting Timeon Activated Clotting Time 180 Seconds Normal [facility] Comment on above: Performed By: #### L IPASE, EDCTNI, CMET, CBCDIF ####Unless otherwise noted, [facility] testing [facility] [place], [place] [phone]: [id number] Director: Leonardo Miller M.D. CBC with Diffon 08-29-2017 Basophils Auto #/vol (Bld) 0.0 K/mcL Normal 0-0.2 [facility] Comment on above: Performed By: #### L IPASE, EDCTNI, CMET, CBCDIF ####Unless otherwise noted, all testing performed by [address] [phone]: [id number] Director: Leonardo Miller M.D. Basophils/100 WBC Auto (Bld) 0.2 % Normal [facility] Comment on above: Performed By: #### L IPASE, EDCTNI, CMET, CBCDIF ####Unless otherwise noted, all testing performed by [address] [phone]: [id number] Director: Leonardo Miller M.D. Eosinophils 0.1 K/mcL Normal 0-0.5 [facility] Comment on above: Performed By: #### L IPASE, EDCTNI, CMET, CBCDIF ####Unless otherwise noted, all testing performed by [address] [phone]: [id number] Director: Leonardo Miller M.D. Eosinophils/100 leukocytes 1.8 % Normal [facility] Comment on above: Performed By: #### L IPASE, EDCTNI, CMET, CBCDIF ####Unless otherwise noted, all testing performed by [address] [phone]: [id number] Director: Leonardo Miller M.D. Erythrocyte distribution width Auto Ratio (RBC) 12.6 % Normal 10.0-14.4 [facility] Comment on above: Performed By: #### L IPASE, EDCTNI, CMET, CBCDIF ####Unless otherwise noted, all testing performed by [address] [phone]: [id number] Director: Leonardo Miller M.D. Erythrocytes (RBC) 4.27 M/mcL Normal 3.7-5.0 [facility] Comment on above: Performed By: #### L IPASE, EDCTNI, CMET, CBCDIF ####Unless otherwise noted, all testing performed by [address] [phone]: [id number] Director: Leonardo Miller M.D. Hematocrit (HCT) 38.5 % Normal 34.4-44.8 [facility] Comment on above: Performed By: #### L IPASE, EDCTNI, CMET, CBCDIF ####Unless otherwise noted, all testing performed by [address] [phone]: [id number] Director: Leonardo Miller M.D. Hemoglobin mass conc (Bld) 13.1 g/dL Normal 11.6-15.4 [facility] Comment on above: Performed By: #### L IPASE, EDCTNI, CMET, CBCDIF ####Unless otherwise noted, all testing performed by [address] [phone]: [id number] Director: Leonardo Miller M.D. Lymphocytes 1.9 K/mcL Normal 1.0-3.7 [facility] Comment on above: Performed By: #### L IPASE, EDCTNI, CMET, CBCDIF ####Unless otherwise noted, all testing performed by [address] [phone]: [id number] Director: Leonardo Miller M.D. Lymphocytes/100 leukocytes 27.0 % Normal [facility] Comment on above: Performed By: #### L IPASE, EDCTNI, CMET, CBCDIF ####Unless otherwise noted, all testing performed by [address] [phone]: [id number] Director: Leonardo Miller M.D. MCH 30.6 pg Normal 27.9-33.9 [facility] Comment on above: Performed By: #### L IPASE, EDCTNI, CMET, CBCDIF ####Unless otherwise noted, all testing performed by [address] [phone]: [id number] Director: Leonardo Miller M.D. MCHC mass conc (RBC) 34.0 g/dL Normal 33.1-35.1 [facility] Comment on above: Performed By: #### L IPASE, EDCTNI, CMET, CBCDIF ####Unless otherwise noted, all testing performed by [address] [phone]: [id number] Director: Leonardo Miller M.D. MCV 90.1 fL Normal 82.6-98.9 [facility] Comment on above: Performed By: #### L IPASE, EDCTNI, CMET, CBCDIF ####Unless otherwise noted, all testing performed by [address] [phone]: [id number] Director: Leonardo Miller M.D. Monocytes 0.7 K/mcL High 0.1-0.6 [facility] Comment on above: Performed By: #### L IPASE, EDCTNI, CMET, CBCDIF ####Unless otherwise noted, all testing performed by [address] [phone]: [id number] Director: Leonardo Miller M.D. Monocytes/100 leukocytes 9.7 % Normal [facility] Comment on above: Performed By: #### L IPASE, EDCTNI, CMET, CBCDIF ####Unless otherwise noted, all testing performed by [address] [phone]: [id number] Director: Leonardo Miller M.D. Neutrophils 4.2 K/mcL Normal 1.2-6.9 [facility] Comment on above: Performed By: #### L IPASE, EDCTNI, CMET, CBCDIF ####Unless otherwise noted, all testing performed by [address] [phone]: [id number] Director: Leonardo Miller M.D. Platelet mean volume (PMV) 9.2 fL Normal 7.0-10.6 [facility] Comment on above: Performed By: #### L IPASE, EDCTNI, CMET, CBCDIF ####Unless otherwise noted, all testing performed by [address] [phone]: [id number] Director: Leonardo Miller M.D. Platelets 234 K/mcL Normal 162-402 [facility] Comment on above: Performed By: #### L IPASE, EDCTNI, CMET, CBCDIF ####Unless otherwise noted, all testing performed by [address] [place], [place] [phone]: [id number] Director: Leonardo Miller M.D. Segmented Neut % 61.3 % Normal [facility] Comment on above: Performed By: #### L IPASE, EDCTNI, CMET, CBCDIF ####Unless otherwise noted, all testing performed by [address] [phone]: [id number] Director: Leonardo Miller M.D. WBC (Leukocytes) 6.9 K/mcL Normal 3.4-10.6 [facility] Comment on above: Performed By: #### L IPASE, EDCTNI, CMET, CBCDIF ####Unless otherwise noted, all testing performed by [address] [phone]: [id number] Director: Leonardo Miller M.D. CHEMG (Basic Metabolic and M g)on 08-29-2017 Calcium 9.2 mg/dL Normal 8.4-10.2 [facility] Comment on above: Performed By: #### L IPASE, EDCTNI, CMET, CBCDIF ####Unless otherwise noted, all testing performed by [address] [phone]: [id number] Director: Leonardo Miller M.D. Chloride 96 mmol/L Low 98-108 [facility] Comment on above: Performed By: #### L IPASE, EDCTNI, CMET, CBCDIF ####Unless otherwise noted, all testing performed by [address] [phone]: [id number] Director: Leonardo Miller M.D. CO2 27 mmol/L Normal 21-32 [facility] Comment on above: Performed By: #### L IPASE, EDCTNI, CMET, CBCDIF ####Unless otherwise noted, all testing performed by [address] [phone]: [id number] Director: Leonardo Miller M.D. Creatinine 0.99 mg/dL Normal 0.60-1.20 [facility] Comment on above: Performed By: #### L IPASE, EDCTNI, CMET, CBCDIF ####Unless otherwise noted, all testing performed by [address] [phone]: [id number] Director: Leonardo Miller M.D. eGFR (black) mL/min/{1.73_m2} Normal [facility] Comment on above: Result Comment: Afri can Zimbabwean GFR Calc Performed By: #### L IPASE, EDCTNI, CMET, CBCDIF ####Unless otherwise noted, all testing performed by [address] [phone]: [id number] Director: Leonardo Miller M.D. eGFR (non-black) 57 mL/min/{1.73_m2} Low >60 [facility] Comment on above: Result Comment: Non- GFR CalceGFR is an estimated Glomerular Filtration Rate based on the valueof the patient's serum creatinine. In outpatients, eGFR should be usedas a helpful tool in screening for CKD. In inpatients or patients withacute renal failure, eGFR represents the GFR at the moment of the drawand should be used with caution. Performed By: #### L IPASE, EDCTNI, CMET, CBCDIF ####Unless otherwise noted, all testing performed by [address] [phone]: [id number] Director: Leonardo Miller M.D. Glucose mass conc 161 mg/dL High 70-99 [facility] Comment on above: Result Comment: This test result might be falsely depressed or falsely elevated onsamples drawn from patients taking Sulfasalazine and Sulfapyridine.Venipuncture should occur prior to taking either of these drugs. Performed By: #### L IPASE, EDCTNI, CMET, CBCDIF ####Unless otherwise noted, all testing performed by [address] [phone]: [id number] Director: Leonardo Miller M.D. Magnesium 2.1 mg/dL Normal 1.6-2.4 [facility] Comment on above: Performed By: #### L IPASE, EDCTNI, CMET, CBCDIF ####Unless otherwise noted, all testing performed by [address] [phone]: [id number] Director: Leonardo Miller M.D. Potassium molar conc 3.9 mmol/L Normal 3.5-5.1 [facility] Comment on above: Performed By: #### L IPASE, EDCTNI, CMET, CBCDIF ####Unless otherwise noted, all testing performed by [address] [phone]: [id number] Director: Leonardo Miller M.D. Sodium 133 mmol/L Low 135-145 [facility] Comment on above: Performed By: #### L IPASE, EDCTNI, CMET, CBCDIF ####Unless otherwise noted, all testing performed by [address] [phone]: [id number] Director: Leonardo Miller M.D. Urea nitrogen 16 mg/dL Normal 8-25 [facility] Comment on above: Performed By: #### L IPASE, EDCTNI, CMET, CBCDIF ####Unless otherwise noted, all testing performed by [address] [phone]: [id number] Director: Leonardo Miller M.D. Glucose, POCon 08-29-2017 Glucose mass conc 182 mg/dL High [address] [place] [address] Comment on above: Performed By: #### L IPASE, EDCTNI, CMET, CBCDIF ####Unless otherwise noted, all testing performed by [address] [phone]: [id number] Director: Leonardo Miller M.D. Glucose mass conc 134 mg/dL High [address] Comment on above: Performed By: #### L IPASE, EDCTNI, CMET, CBCDIF ####Unless otherwise noted, all testing performed by [address] [phone]: [id number] Director: Leonardo Miller M.D. Glucose mass conc 172 mg/dL High [address] Comment on above: Performed By: #### L IPASE, EDCTNI, CMET, CBCDIF ####Unless otherwise noted, all testing performed by [address] [place] [phone]: [id number] Director: Leonardo Miller M.D. Glucose mass conc 178 mg/dL High 80-115 [facility] Comment on above: Performed By: #### L IPASE, EDCTNI, CMET, CBCDIF ####Unless otherwise noted, all testing performed by [address] [phone]: [id number] Director: Leonardo Miller M.D. Partial Thromboplastin Timeo n 08-29-2017 aPTT 53 s High 23.0-34.0 [facility] Comment on above: Result Comment: Sugg ested therapeutic range for PTT is 68-104 sec. Performed By: #### L IPASE, EDCTNI, CMET, CBCDIF ####Unless otherwise noted, all testing performed by [address] [phone]: [id number] Director: Leonardo Miller M.D. aPTT 65 s High 23.0-34.0 [facility] Comment on above: Result Comment: Sugg ested therapeutic range for PTT is 68-104 sec. Performed By: #### L IPASE, EDCTNI, CMET, CBCDIF ####Unless otherwise noted, all testing performed by [address] [phone]: [id number] Director: Leonardo Miller M.D. aPTT 33 s Normal 23.0-34.0 [facility] Comment on above: Result Comment: Sugg ested therapeutic range for PTT is 68-104 sec. Performed By: #### P TT ####Unless otherwise noted, all testing performed by [address], [place] [phone]: [id number] Director: Leonardo Miller M.D. CBC with Diffon 08-28-2017 Basophils Auto #/vol (Bld) 0.0 K/mcL Normal 0-0.2 [facility] Comment on above: Performed By: #### L IPASE, EDCTNI, CMET, CBCDIF ####Unless otherwise noted, all testing performed by [address] [phone]: [id number] Director: Leonardo Miller M.D. Basophils/100 WBC Auto (Bld) 0.3 % Normal [facility] Comment on above: Performed By: #### L IPASE, EDCTNI, CMET, CBCDIF ####Unless otherwise noted, all testing performed by [address] [phone]: [id number] Director: Leonardo Miller M.D. Eosinophils 0.1 K/mcL Normal 0-0.5 [facility] Comment on above: Performed By: #### L IPASE, EDCTNI, CMET, CBCDIF ####Unless otherwise noted, all testing performed by [address] [phone]: [id number] Director: Leonardo Miller M.D. Eosinophils/100 leukocytes 1.1 % Normal [facility] Comment on above: Performed By: #### L IPASE, EDCTNI, CMET, CBCDIF ####Unless otherwise noted, all testing performed by [address] [phone]: [id number] Director: Leonardo Miller M.D. Erythrocyte distribution width Auto Ratio (RBC) 12.8 % Normal 10.0-14.4 [facility] Comment on above: Performed By: #### L IPASE, EDCTNI, CMET, CBCDIF ####Unless otherwise noted, all testing performed by [address] [phone]: [id number] Director: Leonardo Miller M.D. Erythrocytes (RBC) 4.49 M/mcL Normal 3.7-5.0 [facility] Comment on above: Performed By: #### L IPASE, EDCTNI, CMET, CBCDIF ####Unless otherwise noted, all testing performed by [address] [phone]: [id number] Director: Leonardo Miller M.D. Hematocrit (HCT) 40.0 % Normal 34.4-44.8 [facility] Comment on above: Performed By: #### L IPASE, EDCTNI, CMET, CBCDIF ####Unless otherwise noted, all testing performed by [address] [phone]: [id number] Director: Leonardo Miller M.D. Hemoglobin mass conc (Bld) 13.7 g/dL Normal 11.6-15.4 [facility] Comment on above: Performed By: #### L IPASE, EDCTNI, CMET, CBCDIF ####Unless otherwise noted, all testing performed by [address] [phone]: [id number] Director: Leonardo Miller M.D. Lymphocytes 1.6 K/mcL Normal 1.0-3.7 [facility] Comment on above: Performed By: #### L IPASE, EDCTNI, CMET, CBCDIF ####Unless otherwise noted, all testing performed by [address] [phone]: [id number] Director: Leonardo Miller M.D. Lymphocytes/100 leukocytes 21.6 % Normal [facility] Comment on above: Performed By: #### L IPASE, EDCTNI, CMET, CBCDIF ####Unless otherwise noted, all testing performed by [place] [phone]: [id number] Director: Leonardo Miller M.D. MCH 30.4 pg Normal 27.9-33.9 [facility] Comment on above: Performed By: #### L IPASE, EDCTNI, CMET, CBCDIF ####Unless otherwise noted, all testing performed by [place] [phone]: [id number] Director: Leonardo Miller M.D. MCHC mass conc (RBC) 34.2 g/dL Normal 33.1-35.1 [facility] Comment on above: Performed By: #### L IPASE, EDCTNI, CMET, CBCDIF ####Unless otherwise noted, all testing performed by [address] [phone]: [id number] Director: Leonardo Miller M.D. MCV 88.9 fL Normal 82.6-98.9 [facility] Comment on above: Performed By: #### L IPASE, EDCTNI, CMET, CBCDIF ####Unless otherwise noted, all testing performed by [address] [phone]: [id number] Director: Leonardo Miller M.D. Monocytes 0.8 K/mcL High 0.1-0.6 [facility] Comment on above: Performed By: #### L IPASE, EDCTNI, CMET, CBCDIF ####Unless otherwise noted, all testing performed by [address] [phone]: [id number] Director: Leonardo Miller M.D. Monocytes/100 leukocytes 11.2 % Normal [facility] Comment on above: Performed By: #### L IPASE, EDCTNI, CMET, CBCDIF ####Unless otherwise noted, all testing performed by [address] [phone]: [id number] Director: Leonardo Miller M.D. Neutrophils 4.8 K/mcL Normal 1.2-6.9 [facility] Comment on above: Performed By: #### L IPASE, EDCTNI, CMET, CBCDIF ####Unless otherwise noted, all testing performed by [address] [phone]: [id number] Director: Leonardo Miller M.D. Platelet mean volume (PMV) 9.6 fL Normal 7.0-10.6 [facility] Comment on above: Performed By: #### L IPASE, EDCTNI, CMET, CBCDIF ####Unless otherwise noted, all testing performed by [address] [phone]: [id number] Director: Leonardo Miller M.D. Platelets 247 K/mcL Normal 162-402 [facility] Comment on above: Performed By: #### L IPASE, EDCTNI, CMET, CBCDIF ####Unless otherwise noted, all testing performed by [address] [phone]: [id number] Director: Leonardo Miller M.D. Segmented Neut % 65.8 % Normal [facility] Comment on above: Performed By: #### L IPASE, EDCTNI, CMET, CBCDIF ####Unless otherwise noted, all testing performed by [address] [phone]: [id number] Director: Leonardo Miller M.D. WBC (Leukocytes) 7.3 K/mcL Normal 3.4-10.6 [facility] Comment on above: Performed By: #### L IPASE, EDCTNI, CMET, CBCDIF ####Unless otherwise noted, all testing performed by [address] [phone]: [id number] Director: Leonardo Miller M.D. CHEST (ONE VIEW ONLY)on 08-15 CHEST (ONE VIEW ONLY) Final ReportAccession No: [id number] Performed: Aug 28 2017 5:19PMExamination: CHEST (ONE VIEW ONLY)PORTABLE AP VIEW OF THE CHEST.COMPARISON: 08/13/2016.CLINICAL HISTORY: Chest pain.FINDINGS:Prior median sternotomy and CABG. Mild cardiomegaly, unchanged. No focalconsolidative process, pulmonary edema, pleural effusion, orpneumothorax. RCAstent is noted. Osseous structures are intact.IMPRESSION:Mild cardiomegaly. No acute cardiopulmonary process.Interpreting Physician: AGUSTIN TILLEY M.D.Trans: juans : cc: Normal [facility] Cardiac Troponin-Ion 018 Troponin I.cardiac mass conc ng/mL Normal < 45.0 [facility] Comment on above: Result Comment: Elev ation of troponin indicates some degree of myocardial necrosis butunless there is a significant rise and/or fall (if elevated) identified,it unlikely that an acute event has taken placeSamples from patients routinely receiving high dose biotin therapy(100-300 mg/day) may show falsely decreased results. Please correlateclinically. Performed By: #### C TNI ####Unless otherwise noted, all testing performed by [address], [place] [phone]: [id number] Director: Leonardo Miller M.D. Troponin I.cardiac mass conc No Biomarker evidence of myocardial injury within the past 14 hours. Normal [facility] Comment on above: Performed By: #### C TNI ####Unless otherwise noted, all testing performed by [address], [place] [phone]: [id number] Director: Leonardo Miller M.D. Troponin I.cardiac mass conc ng/mL Normal < 45.0 [facility] Comment on above: Result Comment: Elev ation of troponin indicates some degree of myocardial necrosis butunless there is a significant rise and/or fall (if elevated) identified,it unlikely that an acute event has taken placeSamples from patients routinely receiving high dose biotin therapy(100-300 mg/day) may show falsely decreased results. Please correlateclinically. Performed By: #### C TNI ####Unless otherwise noted, all testing performed by [address], [place] [phone]: [id number] Director: Leonardo Miller M.D. Troponin I.cardiac mass conc No Biomarker evidence of myocardial injury within the past 14 hours. Normal [facility] Comment on above: Performed By: #### C TNI ####Unless otherwise noted, all testing performed by [address] [phone]: [id number] Director: Leonardo Miller M.D. [facility] 08-28-2017 Alanine aminotransferase (ALT) 20 U/L Normal 14-65 [facility] Comment on above: Result Comment: This test result might be falsely depressed or falsely elevated onsamples drawn from patients taking Sulfasalazine and Sulfapyridine.Venipuncture should occur prior to taking either of these drugs. Performed By: #### L IPASE, EDCTNI, CMET, CBCDIF ####Unless otherwise noted, all testing performed by [address] [phone]: [id number] Director: Leonardo Miller M.D. Albumin 3.8 g/dL Normal 3.2-5.2 [facility] Comment on above: Performed By: #### L IPASE, EDCTNI, CMET, CBCDIF ####Unless otherwise noted, all testing performed by [address] [phone]: [id number] Director: Leonardo Miller M.D. Alkaline phosphatase (ALP) 73 U/L Normal 40-150 [facility] Comment on above: Performed By: #### L IPASE, EDCTNI, CMET, CBCDIF ####Unless otherwise noted, all testing performed by [address] [phone]: [id number] Director: Leonardo Miller M.D. Aspartate aminotransferase (AST) 16 U/L Normal 0-45 [facility] Comment on above: Result Comment: This test result might be falsely depressed or falsely elevated onsamples drawn from patients taking Sulfasalazine and Sulfapyridine.Venipuncture should occur prior to taking either of these drugs. Performed By: #### L IPASE, EDCTNI, CMET, CBCDIF ####Unless otherwise noted, all testing performed by [address] [phone]: [id number] Director: Leonardo Miller M.D. Bilirubin (total) 0.4 mg/dL Normal 0.3-1.2 [facility] Comment on above: Performed By: #### L IPASE, EDCTNI, CMET, CBCDIF ####Unless otherwise noted, all testing performed by [address] [phone]: [id number] Director: Leonardo Miller M.D. Calcium 9.2 mg/dL Normal 8.4-10.2 [facility] Comment on above: Performed By: #### L IPASE, EDCTNI, CMET, CBCDIF ####Unless otherwise noted, all testing performed by [address] [phone]: [id number] Director: Leonardo Miller M.D. Chloride 97 mmol/L Low 98-108 [facility] Comment on above: Performed By: #### L IPASE, EDCTNI, CMET, CBCDIF ####Unless otherwise noted, all testing performed by [address] [phone]: [id number] Director: Leonardo Miller M.D. CO2 30 mmol/L Normal 21-32 [facility] Comment on above: Performed By: #### L IPASE, EDCTNI, CMET, CBCDIF ####Unless otherwise noted, all testing performed by [address] [phone]: [id number] Director: Leonardo Miller M.D. Creatinine 1.10 mg/dL Normal 0.60-1.20 [facility] Comment on above: Performed By: #### L IPASE, EDCTNI, CMET, CBCDIF ####Unless otherwise noted, all testing performed by [address] [phone]: [id number] Director: Leonardo Miller M.D. eGFR (black) mL/min/{1.73_m2} Normal [facility] Comment on above: Result Comment: Afri can Zimbabwean GFR Calc Performed By: #### L IPASE, EDCTNI, CMET, CBCDIF ####Unless otherwise noted, all testing performed by [address] [phone]: [id number] Director: Leonardo Miller M.D. eGFR (non-black) 50 mL/min/{1.73_m2} Low >60 [facility] Comment on above: Result Comment: Non- GFR CalceGFR is an estimated Glomerular Filtration Rate based on the valueof the patient's serum creatinine. In outpatients, eGFR should be usedas a helpful tool in screening for CKD. In inpatients or patients withacute renal failure, eGFR represents the GFR at the moment of the drawand should be used with caution. Performed By: #### L IPASE, EDCTNI, CMET, CBCDIF ####Unless otherwise noted, all testing performed by [address] [phone]: [id number] Director: Leonardo Miller M.D. Glucose mass conc 107 mg/dL High 70-99 [facility] Comment on above: Result Comment: This test result might be falsely depressed or falsely elevated onsamples drawn from patients taking Sulfasalazine and Sulfapyridine.Venipuncture should occur prior to taking either of these drugs. Performed By: #### L IPASE, EDCTNI, CMET, CBCDIF ####Unless otherwise noted, all testing performed by [place] [phone]: [id number] Director: Leonardo Miller M.D. Potassium molar conc 4.5 mmol/L Normal 3.5-5.1 [facility] Comment on above: Performed By: #### L IPASE, EDCTNI, CMET, CBCDIF ####Unless otherwise noted, all testing performed by [address] [phone]: [id number] Director: Leonardo Miller M.D. Protein 7.3 g/dL Normal 6.0-8.0 [facility] Comment on above: Performed By: #### L IPASE, EDCTNI, CMET, CBCDIF ####Unless otherwise noted, all testing performed by [address] [phone]: [id number] Director: Leonardo Miller M.D. Sodium 135 mmol/L Normal 135-145 [facility] Comment on above: Performed By: #### L IPASE, EDCTNI, CMET, CBCDIF ####Unless otherwise noted, all testing performed by [address] [phone]: [id number] Director: Leonardo Miller M.D. Urea nitrogen 14 mg/dL Normal 8-25 [facility] Comment on above: Performed By: #### L IPASE, EDCTNI, CMET, CBCDIF ####Unless otherwise noted, all testing performed by [address] [phone]: [id number] Director: Leonardo Miller M.D. ED Cardiac Troponin-Ion 08-15 Troponin I.cardiac mass conc ng/mL Normal < 45 [facility] Comment on above: Result Comment: Elev ation of troponin indicates some degree of myocardial necrosis butunless there is a significant rise and/or fall (if elevated) identified,it unlikely that an acute event has taken placeSamples from patients routinely receiving high dose biotin therapy(100-300 mg/day) may show falsely decreased results. Please correlateclinically. Performed By: #### L IPASE, EDCTNI, CMET, CBCDIF ####Unless otherwise noted, all testing performed by [address] [phone]: [id number] Director: Leonardo Miller M.D. History And Physical-Dictate don 08-28-2017 History And Physical-Dictated [address] [address]LHOG ELSA PUGH [id number] [id number] 1954DMITHISTORY AND PHYSICALATTENDING PHYSICIAN KIMBERLY PALACIO, [facility] COMPLAINTChest pain.HISTORY OF PRESENT ILLNESSIrais is a 62-year-old female with a history of coronary artery disease, statuspost CABG in 2001, PTCA in 1997 and in 2014. She also had PTCA with drug-eluting stent to the 1st diagonal of the LAD. She sometimes complains ofchest pain, and it has been stable. She may take 1 nitroglycerin sublingual,and the pain goes away quickly, but since Saturday, she has been having morechest pains, midsternal, radiating to the neck and associated with jaw pain,similar to the pain that was persistent before she had the last stent. Shecannot take aspirin because she is allergic to it. She continued to takePlavix. She cannot take statins. She is allergic to all statins, sheclaimed. She has been trying to lose weight, but she gained recently weight.She is now on Ranexa. A stress test last one showed inferior ischemia, andirais had a cardiac catheterization in July 2016. She had a drug-elutingstent in the restenotic segment of the distal body of the saphenous vein graftto the posterior descending branch.The patient was given 1 sublingual nitroglycerin, and the pain was slightlyrelieved, but it is coming back. The case was discussed with the cardiologistby the ER physician, and the patient will be started on nitroglycerin drip andheparin drip as well. The patient took her Plavix this morning.REVIEW OF SYSTEMSOther than mentioned in HPI, the remaining review of 10 systems is negative.PAST MEDICAL HISTORYAs mentioned above. In addition, she has a history of type 2 diabetesmellitus on metformin, gastroesophageal reflux disease, hyperlipidemia,hypertens ion, narcolepsy, obstructive sleep apnea on CPAP.PAST SURGICAL HISTORYAs mentioned above, the CABG and multiple cardiac catheterization. She alsohad tonsillectomy, hysterectomy.FAMILY HISTORYMother had heart disease, as well as her father, who also had diabetes.SOCIAL HISTORYShe quit smoking in 1997, and she denied drinking alcohol or using drugs.ALLERGIESShe has allergies to 19 drugs, all listed.HOME MEDICATIONSReviewed and reconciled.PHYSICAL EXAMGeneral: She is awake, alert, oriented. No respiratory distress.Vital signs: Blood pressure 113/76, heart rate around 54, respiratory rate18, oxygen saturation 95 on room air, temperature 97.8.Head and Neck: Normocephalic, atraumatic. Pupils reactive to light andaccommodation. Extraocular movements intact. No pallor. No jaundice. Oralmucosa moist.Neck: Supple.Lungs: Clear to auscultation bilaterally.Heart: S1, S2. Regular rate and rhythm.Abdomen: Soft, lax, nontender, not distended.Lower extremities: No edema, cyanosis or clubbing. Pulses symmetrical indorsalis pedis.Neurologic: No focal neurological, sensory or motor deficit.LABSBUN 14, creatinine 1.1, random sugar 107, sodium 135, potassium 4.5, tqills531. Cardiac troponin less than 15, first set. CBC: Normal. Chest x-rayshowed mild cardiomegaly, no acute cardiopulmonary process. EKG showed sinusbradycardia, ventricular rate of 56. She has T-wave inversion in V1, V2, V3,which is similar to these changes on August 13, before the cardiac cath.There is also T-wave inversion in lead III and flat T-wave in aVF.IMPRESSION1. Progressive unstable angina, history of coronary artery bypass grafting,history of multiple cardiac catheterizations, and multiple coronarystents, history of allergies to aspirin and statins.2. Hypertension, controlled.3. Chronic bradycardia, not on beta-alexandra.4. Type 2 diabetes mellitus on metformin, controlled.5. Obesity.PLAN1. For now, the patient will be on heparin and nitroglycerin drip. We willcontinue with.2. Will hold Imdur since patient is on nitroglycerin drip. Continue withPlavix. N.p.o. after midnight. Monitor cardiac enzymes. She may needcardiac catheterization. We will consult with Cardiology. Monitor vitalsigns. CPAP at night. Oxygen supplementation as needed.CECILE FRENCH 08/28/2017 18:02 [id number] 08/28/2017 18:38 AFM/MODLElectronically Signed By Kimberly Palacio M.D. on 02 Sep 2017 21:39:24 GMT Normal [facility] Lipaseon 08-28-2017 Lipase 132 U/L Normal 73-393 [facility] Comment on above: Performed By: #### L IPASE, EDCTNI, CMET, CBCDIF ####Unless otherwise noted, all testing performed by [address] [id number]: [id number] Director: Leonardo Miller M.D. Urinalysis, Routineon 2017 Bilirubin,Urine Negative Normal NEG;NEGATIVE [facility] Comment on above: Performed By: #### U A ####Unless otherwise noted, all testing performed by [address] [id number]: [id number] Director: Leonardo Miller M.D. Blood,Urine Negative Normal NEG;NEGATIVE [facility] Comment on above: Performed By: #### U A ####Unless otherwise noted, all testing performed by [address] [id number]: [id number] Director: Leonardo Miller M.D. Cast, Hyaline 3 /LPF Normal 0-5 [facility] Comment on above: Performed By: #### U A ####Unless otherwise noted, all testing performed by [address] [id number]: [id number] Director: Leonardo Miller M.D. Ketone,Urine Negative Normal NEG;NEGATIVE [facility] Comment on above: Performed By: #### U A ####Unless otherwise noted, all testing performed by [address] [id number]: [id number] Director: Leonardo Miller M.D. Leuk.Esterase,Urine Negative Normal Negative [facility] Comment on above: Performed By: #### U A ####Unless otherwise noted, all testing performed by [address] [id number]: [id number] Director: Leonardo Miller M.D. Nitrite,Urine Negative Normal NEG;NEGATIVE [facility] Comment on above: Performed By: #### U A ####Unless otherwise noted, all testing performed by [place] [id number]: [id number] Director: Leonardo Miller M.D. Protein,Urine Negative Normal NEG;NEGATIVE [facility] Comment on above: Performed By: #### U A ####Unless otherwise noted, all testing performed by [place] [id number]: [id number] Director: Leonardo Miller M.D. Specific [place],Urine 1.003 Normal 1.003-1.029 [facility] Comment on above: Performed By: #### U A ####Unless otherwise noted, all testing performed by [address] [id number]: [id number] Director: Leonardo Miller M.D. Squamous Epithelial 1 /HPF Normal 0-40 [facility] Comment on above: Performed By: #### U A ####Unless otherwise noted, all testing performed by [place] [id number]: [id number] Director: Leonardo Miller M.D. Urine, character Clear Normal [facility] Comment on above: Performed By: #### U A ####Unless otherwise noted, all testing performed by [address] [id number]: [id number] Director: Leonardo Miller M.D. Urine, color Straw Normal [facility] Comment on above: Performed By: #### U A ####Unless otherwise noted, all testing performed by [place] [id number]: [id number] Director: Leonardo Miller M.D. Urine, glucose presence Negative Normal NEG;NEGATIVE [facility] Comment on above: Performed By: #### U A ####Unless otherwise noted, all testing performed by [place] [id number]: [id number] Director: Leonardo Miller M.D. Urine, leukocytes in sedmiment /[HPF] Normal 0-5 [facility] Comment on above: Performed By: #### U A ####Unless otherwise noted, all testing performed by [address] [id number]: [id number] Director: Leonardo Miller M.D. Urine, pH 5.0 [pH] Normal 4.5-8.0 [facility] Comment on above: Performed By: #### U A ####Unless otherwise noted, all testing performed by [place] [phone]: [id number] Director: Leonardo Miller M.D. Urobilinogen,Urine < 2.0 Normal <2 [facility] Comment on above: Performed By: #### U A ####Unless otherwise noted, all testing performed by [place] [address] [address] [place], [place] [id number]: [id number] Director: Leonardo Miller M.D. Influenza virus A and B and SARS-CoV-2 (COVID-19) Ag panel - Upper respiratory specim SARS-CoV-2 (COVID-19) RNA NIEVES+probe Ql (Resp) [facility] Work Phone: No Panel Information SARS-CoV-2 & FLU Antigen (Rapid) [facility] Work Phone: Vital Signs Date Time Vital Sign Value Performing Clinician Facility 01-25-2025 12:40-0400 Body mass index (BMI) [Ratio] 34.58 kg/m2 Eyad Victoria APRN.[employer] Work Phone: [facility] 01-25-2025 12:40-0400 Body weight 93 kg Eyad Victoria APRN.[employer] Work Phone: [facility] 01-25-2025 12:40-0400 Diastolic blood pressure 66 mm[Hg] Eyad Victoria APRN.[employer] Work Phone: [facility] 01-25-2025 12:40-0400 Heart rate 51 /min Eyad Victoria APRN.[employer] Work Phone: [facility] 01-25-2025 12:40-0400 Systolic blood pressure 147 mm[Hg] Eyad Victoria APRN.[employer] Work Phone: [facility] 01-21-2025 16:26-0400 Body temperature 97.9 [degF] Dr. Redd Linda MD Work Phone: [facility] 01-21-2025 16:26-0400 Diastolic blood pressure 61 mm[Hg] Dr. Redd Linda MD Work Phone: 7(145)748-630594 [place] [address] 01-21-2025 16:26-0400 Heart rate 78 /min Dr. Redd Linda MD Work Phone: 7(703)837-542694 [place] [address] 01-21-2025 16:26-0400 Respiratory rate 15 /min Dr. Redd Linda MD Work Phone: 4(962)741-169194 [place] [address] 01-21-2025 16:26-0400 SaO2% (BldA) [Mass fraction] 97 % Dr. Redd Linda MD Work Phone: 2(196)988-209594 [place] [address] 01-21-2025 16:26-0400 Systolic blood pressure 141 mm[Hg] Dr. Redd Linda MD Work Phone: 9(724)984-697794 [place] [address] 01-21-2025 15:04-0400 Body mass index (BMI) [Ratio] 35.2 kg/m2 Dr. Redd Linda MD Work Phone: 4(051)105-948994 [place] [address] 01-21-2025 15:04-0400 Body weight 95.[address] Redd Linda MD Work Phone: 0(567)652-944594 [place] [address] 01-21-2025 13:32-0400 Body height 165.[address] Redd Linda MD Work Phone: 3(085)725-388494 [place] [address] 01-21-2025 13:32-0400 Body temperature 97.9 [degF] Dr. Redd Linda MD Work Phone: 1(554)403-520794 [place] [address] 01-21-2025 13:32-0400 Diastolic blood pressure 70 mm[Hg] Dr. Redd Linda MD Work Phone: 5(122)474-598294 [place] [address] 01-21-2025 13:32-0400 Heart rate 51 /min Dr. Redd Linda MD Work Phone: 5(082)605-838494 [place] [address] 01-21-2025 13:32-0400 Respiratory rate 18 /min Dr. Redd Linda MD Work Phone: 6(090)516-652494 [place] [address] 01-21-2025 13:32-0400 SaO2% (BldA) [Mass fraction] 99 % Dr. Redd Linda MD Work Phone: 3(437)523-281654 [address] [place] [address] 01-21-2025 13:32-0400 Systolic blood pressure 162 mm[Hg] Dr. Redd Linda MD Work Phone: 8(647)025-963694 [place] [address] 01-13-2025 14:29-0400 Body height 165.[address] Redd Linda MD Work Phone: 8(465)427-525894 [place] [address] 01-13-2025 14:29-0400 Body mass index (BMI) [Ratio] 34.2 kg/m2 Dr. Redd Linda MD Work Phone: 5(468)366-329594 [place] [address] 01-13-2025 14:29-0400 Body weight 93.[address] Redd Linda MD Work Phone: 3(010)121-151594 [place] [address] 01-13-2025 14:29-0400 Diastolic blood pressure 84 mm[Hg] Dr. Redd Linda MD Work Phone: 9(049)743-929694 [place] [address] 01-13-2025 14:29-0400 Heart rate 72 /min Dr. Redd Linda MD Work Phone: 1(884)346-581894 [place] [address] 01-13-2025 14:29-0400 Respiratory rate 18 /min Dr. Redd Linda MD Work Phone: 0(773)281-564494 [place] [address] 01-13-2025 14:29-0400 Systolic blood pressure 121 mm[Hg] Dr. Redd Linda MD Work Phone: 8(239)293-059894 [place] [address] 01-06-2025 09:00-0400 Diastolic blood pressure 76 mm[Hg] Sydni Leger [facility] 01-06-2025 09:00-0400 Heart rate 48 /min Sydni Leger [facility] 01-06-2025 09:00-0400 SaO2% (BldA) [Mass fraction] 95 % Sydni Leger [facility] 01-06-2025 09:00-0400 Systolic blood pressure 121 mm[Hg] Sydni Leger [facility] 12-16-2024 13:00-0400 Body height 165.[address] Redd Linda MD Work Phone: [facility] 12-16-2024 13:00-0400 Body mass index (BMI) [Ratio] 33.4 kg/m2 Dr. Redd Linda MD Work Phone: [facility] 12-16-2024 13:00-0400 Body weight 91.[address] Redd Linda MD Work Phone: 8(493)100-783754 [address] [place] [address] 12-16-2024 13:00-0400 Diastolic blood pressure 64 mm[Hg] Dr. Redd Linda MD Work Phone: 9(087)544-438694 [place] [address] 12-16-2024 13:00-0400 Heart rate 47 /min Dr. Redd Linda MD Work Phone: 0(552)045-986894 [place] [address] 12-16-2024 13:00-0400 Respiratory rate 18 /min Dr. Redd Linda MD Work Phone: 2(279)726-735794 [place] [address] 12-16-2024 13:00-0400 Systolic blood pressure 130 mm[Hg] Dr. Redd Linda MD Work Phone: 9(108)912-816694 [place] [address] 12-15-2024 13:23-0400 Body mass index (BMI) [Ratio] 33.66 kg/m2 Anay Podlogar [employer] Work Phone: [facility] 12-15-2024 13:23-0400 Body weight 90.54 kg Anay Podlogar [employer] TRA[employer]ER.[employer] Work Phone: [facility] 12-15-2024 13:23-0400 Diastolic blood pressure 64 mm[Hg] Anay Podlogar [employer] TRA[employer]ER.[employer] Work Phone: [facility] 12-15-2024 13:23-0400 Heart rate 56 /min Anay Podlogar [employer] TRA[employer] Work Phone: [facility] 12-15-2024 13:23-0400 Respiratory rate 18 /min Anay Podlogar [employer] TRA[employer] Work Phone: [facility] 12-15-2024 13:23-0400 SaO2% (BldA) [Mass fraction] 93 % Anay Podlogar [employer] TRA[employer]ER.[employer] Work Phone: 2(086)258-414197 [place] [address] 12-15-2024 13:23-0400 Systolic blood pressure 118 mm[Hg] Anay Podlogar [employer] TRA[employer]ER.[employer] Work Phone: 0(972)789-651697 [place] [address] 12-14-2024 14:40-0400 Diastolic blood pressure 90 mm[Hg] Dr. Redd Linda MD Work Phone: 8(672)675-588994 [place] [address] 12-14-2024 14:40-0400 Systolic blood pressure 132 mm[Hg] Dr. Redd Linda MD Work Phone: 6(785)002-324594 [place] [address] 12-14-2024 14:31-0400 Body height 165.[address] Redd Linda MD Work Phone: 3(411)135-913794 [place] [address] 12-14-2024 14:31-0400 Body mass index (BMI) [Ratio] 33.3 kg/m2 Dr. Redd Linda MD Work Phone: 4(031)038-386894 [place] [address] 12-14-2024 14:31-0400 Body temperature 97.3 [degF] Dr. Redd Linda MD Work Phone: 4(673)113-158194 [place] [address] 12-14-2024 14:31-0400 Body weight 90.[address] Redd Linda MD Work Phone: 0(295)316-670394 [place] [address] 12-14-2024 14:31-0400 Heart rate 57 /min Dr. Redd Linda MD Work Phone: 1(958)563-004194 [place] [address] 12-14-2024 14:31-0400 Respiratory rate 18 /min Dr. Redd Linda MD Work Phone: 8(986)446-019194 [place] [address] 12-14-2024 14:31-0400 SaO2% (BldA) [Mass fraction] 90 % Dr. Redd Linda MD Work Phone: 3(856)681-960394 [place] [address] 12-09-2024 11:14-0400 Body height 164 cm Carmencita Caldera MD Work Phone: [facility] 12-09-2024 11:14-0400 Body mass index (BMI) [Ratio] 34.35 kg/m2 Carmencita Caldera MD Work Phone: [facility] 12-09-2024 11:14-0400 Body temperature 97.59 [degF] Carmencita Caldera MD Work Phone: [facility] 12-09-2024 11:14-0400 Body weight 92.4 kg Carmencita Caldera MD Work Phone: [facility] 12-09-2024 11:14-0400 Diastolic blood pressure 42 mm[Hg] Carmencita Caldera MD Work Phone: [facility] 12-09-2024 11:14-0400 Heart rate 48 /min Carmencita Caldera MD Work Phone: [facility] 12-09-2024 11:14-0400 Systolic blood pressure 151 mm[Hg] Carmencita Caldera MD Work Phone: [facility] 11-12-2024 12:43-0400 Body mass index (BMI) [Ratio] 33.61 kg/m2 Anay Podlogar [employer] TRA[employer]ER.[employer] Work Phone: [facility] 11-12-2024 12:43-0400 Body weight 91.63 kg Anay Podlogar [employer] TRAINER.[employer] Work Phone: [facility] 11-12-2024 12:43-0400 Diastolic blood pressure 72 mm[Hg] Anay Podlogar [employer] TRAINER.[employer] Work Phone: [facility] 11-12-2024 12:43-0400 Heart rate 53 /min Anay Podlogar [employer] TRA[employer]ER.[employer] Work Phone: [facility] 11-12-2024 12:43-0400 SaO2% (BldA) [Mass fraction] 94 % Anay Podlogar [employer] TRA[employer]ER.[employer] Work Phone: [facility] 11-12-2024 12:43-0400 Systolic blood pressure 128 mm[Hg] Anay Lawrence APRN.CNP Work Phone: 3(400)377-145697 [place] [address] 11-03-2024 17:00-0400 Body temperature 97.8 [degF] Dr. Redd Linda MD Work Phone: 9(368)768-538294 [place] [address] 11-03-2024 17:00-0400 Diastolic blood pressure 58 mm[Hg] Dr. Redd Linda MD Work Phone: 1(672)393-835994 [place] [address] 11-03-2024 17:00-0400 Heart rate 59 /min Dr. Redd Linda MD Work Phone: 9(983)500-800694 [place] [address] 11-03-2024 17:00-0400 Respiratory rate 16 /min Dr. Redd Linda MD Work Phone: 3(811)460-138994 [place] [address] 11-03-2024 17:00-0400 SaO2% (BldA) [Mass fraction] 99 % Dr. Redd Linda MD Work Phone: 0(565)461-255694 [place] [address] 11-03-2024 17:00-0400 Systolic blood pressure 135 mm[Hg] Dr. Redd Linda MD Work Phone: 3(233)435-639094 [place] [address] 11-03-2024 13:43-0400 Body height 165.[address] Redd Linda MD Work Phone: 4(050)023-999094 [place] [address] 11-03-2024 13:43-0400 Body mass index (BMI) [Ratio] 33.6 kg/m2 Dr. Redd Linda MD Work Phone: 3(099)239-880194 [place] [address] 11-03-2024 13:43-0400 Body weight 91.[address] Redd Linda MD Work Phone: 7(994)240-748694 [place] [address] 10-07-2024 12:58-0400 Body mass index (BMI) [Ratio] 33.18 kg/m2 Gabriela Linda MD Work Phone: 9(849)233-702363 [place] [address] 10-07-2024 12:58-0400 Body weight 90.45 kg Gabriela Linda MD Work Phone: [facility] 10-07-2024 12:58-0400 Diastolic blood pressure 62 mm[Hg] Gabriela Linda MD Work Phone: [facility] 10-07-2024 12:58-0400 Heart rate 50 /min Gabriela Linda MD Work Phone: [facility] 10-07-2024 12:58-0400 Respiratory rate 16 /min Gabriela Linda MD Work Phone: [facility] 10-07-2024 12:58-0400 SaO2% (BldA) [Mass fraction] 95 % Gabriela Linda MD Work Phone: [facility] 10-07-2024 12:58-0400 Systolic blood pressure 126 mm[Hg] Gabriela Linda MD Work Phone: [facility] 08-24-2024 09:24-0400 Diastolic blood pressure 73 mm[Hg] Trenton Seaman MD Work Phone: [facility] 08-24-2024 09:24-0400 Heart rate 50 /min Trenton Seaman MD Work Phone: [facility] 08-24-2024 09:24-0400 Respiratory rate 17 /min Trenton Seaman MD Work Phone: [facility] 08-24-2024 09:24-0400 SaO2% (BldA) [Mass fraction] 95 % Trenton Seaman MD Work Phone: [facility] 08-24-2024 09:24-0400 Systolic blood pressure 158 mm[Hg] Trenton Seaman MD Work Phone: [facility] 08-19-2024 10:48-0500 Body mass index (BMI) [Ratio] 30.9 kg/m2 Dr. Redd Linda MD Work Phone: [facility] 08-19-2024 10:48-0500 Body weight 87.[address] Redd Linda MD Work Phone: [facility] 08-19-2024 10:48-0500 Diastolic blood pressure 77 mm[Hg] Dr. Redd Linda MD Work Phone: [facility] 08-19-2024 10:48-0500 Heart rate 55 /min Dr. Redd Linda MD Work Phone: [facility] 08-19-2024 10:48-0500 Respiratory rate 18 /min Dr. Redd Linda MD Work Phone: [facility] 08-19-2024 10:48-0500 Systolic blood pressure 144 mm[Hg] Dr. Redd Linda MD Work Phone: [facility] 08-05-2024 14:22-0500 Diastolic blood pressure 65 mm[Hg] Anay Podlogar GUIDE [employer]G TRAINER.[employer] Work Phone: [facility] Comment on above: AM[facility]O BP 08-05-2024 14:22-0500 Heart rate 50 /min Anay Podlogar [employer]IDE [employer] TRAINER.[employer] Work Phone: [facility] 08-05-2024 14:22-0500 Systolic blood pressure 126 mm[Hg] Anay Podlogar [employer]IDE [employer] TRAINER.[employer] Work Phone: [facility] Comment on above: [facility] 08-05-2024 13:59-0500 Body mass index (BMI) [Ratio] 33.24 kg/m2 Anay Podlogar [employer] TRAINER.[employer] Work Phone: [facility] 08-05-2024 13:59-0500 Body weight 90.6 kg Anay Podlogar GUIDE [employer]G TRAINER.[employer] Work Phone: [facility] 08-05-2024 13:59-0500 Respiratory rate 16 /min Anay Podlogar GUIDE [employer]G TRAINER.[employer] Work Phone: [facility] 08-05-2024 13:59-0500 SaO2% (BldA) [Mass fraction] 96 % Anay Podlogar GUIDE [employer] TRAINER.[employer] Work Phone: [facility] 07-02-2024 12:55-0500 Heart rate 51 /min Baylee Prebish GUIDE DOG TRAINER.[employer] Work Phone: [facility] 07-02-2024 12:55-0500 Respiratory rate 18 /min Baylee Prebish GUIDE DOG TRAINER.[employer] Work Phone: [facility] 07-02-2024 12:55-0500 SaO2% (BldA) [Mass fraction] 97 % Baylee Prebish GUIDE [employer]G TRAINER.[employer] Work Phone: [facility] 06-03-2024 14:01-0500 Body mass index (BMI) [Ratio] 33.12 kg/m2 Mervin Plotts GUIDE DOG TRAINER.CNM Work Phone: [facility] 06-03-2024 14:01-0500 Body weight 90.27 kg Mervin Plotts GUIDE DOG TRAINER.CNM Work Phone: [facility] 06-03-2024 14:01-0500 Diastolic blood pressure 78 mm[Hg] Mervin Plotts GUIDE DOG TRAINER.CNM Work Phone: [facility] 06-03-2024 14:01-0500 Systolic blood pressure 130 mm[Hg] Mervin Plotts GUIDE DOG TRAINER.CNM Work Phone: [facility] 06-03-2024 10:36-0500 Body mass index (BMI) [Ratio] 33.16 kg/m2 Anay Podlogar GUIDE [employer]G TRAINER.[employer] Work Phone: [facility] 06-03-2024 10:36-0500 Body weight 90.4 kg Anay Podlogar GUIDE DOG TRAINER.[employer] Work Phone: [facility] 06-03-2024 10:36-0500 Diastolic blood pressure 72 mm[Hg] Anay Podlogar GUIDE DOG TRAINER.[employer] Work Phone: [facility] 06-03-2024 10:36-0500 Heart rate 50 /min Anay Podlogar GUIDE [employer]G TRAINER.[employer] Work Phone: [facility] 06-03-2024 10:36-0500 Respiratory rate 18 /min Anay Podlogar GUIDE DOG TRAINER.[employer] Work Phone: [facility] 06-03-2024 10:36-0500 SaO2% (BldA) [Mass fraction] 97 % Anay Podlogar GUIDE [employer]G TRAINER.[employer] Work Phone: [facility] 06-03-2024 10:36-0500 Systolic blood pressure 134 mm[Hg] Anay Podlogar GUIDE DOG TRAINER.[employer] Work Phone: [facility] 05-27-2024 13:21-0500 Body mass index (BMI) [Ratio] 33.46 kg/m2 Anay Podlogar GUIDE DOG TRAINER.[employer] Work Phone: [facility] 05-27-2024 13:21-0500 Body weight 91.2 kg Anay Podlogar GUIDE DOG TRAINER.[employer] Work Phone: [facility] 05-27-2024 13:21-0500 Diastolic blood pressure 64 mm[Hg] Anay Podlogar GUIDE DOG TRAINER.[employer] Work Phone: [facility] 05-27-2024 13:21-0500 Heart rate 60 /min Anay Podlogar GUIDE DOG TRAINER.[employer] Work Phone: [facility] 05-27-2024 13:21-0500 Respiratory rate 18 /min Anay Podlogar GUIDE DOG TRAINER.[employer] Work Phone: [facility] 05-27-2024 13:21-0500 SaO2% (BldA) [Mass fraction] 95 % Anay Podlogar GUIDE DOG TRAINER.[employer] Work Phone: [facility] 05-27-2024 13:21-0500 Systolic blood pressure 118 mm[Hg] Anay Podlogar GUIDE DOG TRAINER.[employer] Work Phone: [facility] 05-06-2024 11:04-0500 Body mass index (BMI) [Ratio] 33.46 kg/m2 Anay Podlogar GUIDE DOG TRAINER.[employer] Work Phone: [facility] 05-06-2024 11:04-0500 Body weight 91.2 kg Anay Podlogar GUIDE DOG TRAINER.[employer] Work Phone: [facility] 05-06-2024 11:04-0500 Diastolic blood pressure 68 mm[Hg] Anay Podlogar GUIDE DOG TRAINER.[employer] Work Phone: [facility] 05-06-2024 11:04-0500 Heart rate 51 /min Anay Podlogar GUIDE DOG TRAINER.[employer] Work Phone: [facility] 05-06-2024 11:04-0500 Respiratory rate 16 /min Anay Podlogar GUIDE DOG TRAINER.[employer] Work Phone: [facility] 05-06-2024 11:04-0500 SaO2% (BldA) [Mass fraction] 96 % Anay Podlogar GUIDE DOG TRAINER.[employer] Work Phone: [facility] 05-06-2024 11:04-0500 Systolic blood pressure 130 mm[Hg] Anay Podlogar GUIDE DOG TRAINER.[employer] Work Phone: [facility] 04-08-2024 06:57-0400 Body mass index (BMI) [Ratio] 34.15 kg/m2 Gabriela Linda MD Work Phone: [facility] 04-08-2024 06:57-0400 Body temperature 97.59 [degF] Gabriela iLnda MD Work Phone: [facility] 04-08-2024 06:57-0400 Body weight 93.08 kg Gabriela Linda MD Work Phone: [facility] 04-08-2024 06:57-0400 Diastolic blood pressure 64 mm[Hg] Gabriela Linda MD Work Phone: [facility] 04-08-2024 06:57-0400 Heart rate 50 /min Gabriela Linda MD Work Phone: [facility] 04-08-2024 06:57-0400 Respiratory rate 16 /min Gabriela Linda MD Work Phone: [facility] 04-08-2024 06:57-0400 SaO2% (BldA) [Mass fraction] 98 % Gabriela Linda MD Work Phone: [facility] 04-08-2024 06:57-0400 Systolic blood pressure 110 mm[Hg] Gabriela Linda MD Work Phone: [facility] 03-11-2024 14:27-0400 Body mass index (BMI) [Ratio] 33.82 kg/m2 Anay Podlogar GUIDE DOG TRAINER.[employer] Work Phone: [facility] 03-11-2024 14:27-0400 Body weight 92.2 kg Anay Podlogar GUIDE DOG TRAINER.[employer] Work Phone: [facility] 03-11-2024 14:27-0400 Diastolic blood pressure 52 mm[Hg] Anay Podlogar GUIDE DOG TRAINER.[employer] Work Phone: [facility] 03-11-2024 14:27-0400 Heart rate 48 /min Anay Podlogar GUIDE DOG TRAINER.[employer] Work Phone: [facility] 03-11-2024 14:27-0400 Respiratory rate 16 /min Anay Podlogar GUIDE DOG TRAINER.[employer] Work Phone: [facility] 03-11-2024 14:27-0400 SaO2% (BldA) [Mass fraction] 95 % Anay Podlogar GUIDE DOG TRAINER.[employer] Work Phone: [facility] 03-11-2024 14:27-0400 Systolic blood pressure 112 mm[Hg] Anay Podlogar GUIDE DOG TRAINER.[employer] Work Phone: [facility] 02-25-2024 13:36-0400 Body mass index (BMI) [Ratio] 33.38 kg/m2 Anay Podlogar GUIDE DOG TRAINER.[employer] Work Phone: [facility] 02-25-2024 13:36-0400 Body weight 91 kg Anay Podlogar GUIDE DOG TRAINER.[employer] Work Phone: [facility] 02-25-2024 13:36-0400 Diastolic blood pressure 68 mm[Hg] Anay Podlogar GUIDE DOG TRAINER.[employer] Work Phone: [facility] 02-25-2024 13:36-0400 Heart rate 54 /min Anay Podlogar GUIDE DOG TRAINER.[employer] Work Phone: [facility] 02-25-2024 13:36-0400 Respiratory rate 18 /min Anay Podlogar GUIDE DOG TRAINER.[employer] Work Phone: [facility] 02-25-2024 13:36-0400 SaO2% (BldA) [Mass fraction] 95 % Anay Podlogar GUIDE DOG TRAINER.[employer] Work Phone: [facility] 02-25-2024 13:36-0400 Systolic blood pressure 116 mm[Hg] Anay Podlogar GUIDE DOG TRAINER.[employer] Work Phone: [facility] 02-19-2024 11:14-0400 Body height 165.1 cm Gabriela Linda MD Work Phone: [facility] 02-19-2024 11:14-0400 Body mass index (BMI) [Ratio] 32.28 kg/m2 Gabriela Linda MD Work Phone: [facility] 02-19-2024 11:14-0400 Body weight 88 kg Gabriela Linda MD Work Phone: [facility] 02-19-2024 11:14-0400 Diastolic blood pressure 78 mm[Hg] Gabriela Linda MD Work Phone: [facility] 02-19-2024 11:14-0400 Heart rate 56 /min Gabriela Linda MD Work Phone: [facility] 02-19-2024 11:14-0400 Respiratory rate 12 /min Gabriela Linda MD Work Phone: [facility] 02-19-2024 11:14-0400 SaO2% (BldA) [Mass fraction] 96 % Gabriela Linda MD Work Phone: [facility] 02-19-2024 11:14-0400 Systolic blood pressure 136 mm[Hg] Gabriela Linda MD Work Phone: [facility] 02-17-2024 13:49-0400 Body mass index (BMI) [Ratio] 31.29 kg/m2 Eden Salazar PA-C Work Phone: [facility] 02-17-2024 13:49-0400 Body temperature 97.9 [degF] Eden Wormald PA-C Work Phone: [facility] 02-17-2024 13:49-0400 Body weight 87.9 kg Eden Wormald PA-C Work Phone: [facility] 02-17-2024 13:49-0400 Diastolic blood pressure 62 mm[Hg] Eden Wormald PA-C Work Phone: [facility] 02-17-2024 13:49-0400 Heart rate 64 /min Eden Wormald PA-C Work Phone: [facility] 02-17-2024 13:49-0400 Respiratory rate 16 /min Eden Wormald PA-C Work Phone: [facility] 02-17-2024 13:49-0400 SaO2% (BldA) [Mass fraction] 98 % Eden Wormald PA-C Work Phone: [facility] 02-17-2024 13:49-0400 Systolic blood pressure 128 mm[Hg] Eden Wormald PA-C Work Phone: [facility] 10-30-2023 10:22-0400 Body mass index (BMI) [Ratio] 33.33 kg/m2 Anay Podlogar GUIDE DOG TRAINER.[employer] Work Phone: [facility] 10-30-2023 10:22-0400 Body weight 93.62 kg Anay Podlogar GUIDE DOG TRAINER.[employer] Work Phone: [facility] 10-30-2023 10:22-0400 Diastolic blood pressure 78 mm[Hg] Anay Podlogar GUIDE DOG TRAINER.[employer] Work Phone: [facility] 10-30-2023 10:22-0400 Heart rate 54 /min Anay Podlogar GUIDE DOG TRAINER.[employer] Work Phone: [facility] 10-30-2023 10:22-0400 Respiratory rate 16 /min Anay Podlogar GUIDE DOG TRAINER.[employer] Work Phone: [facility] 10-30-2023 10:22-0400 SaO2% (BldA) [Mass fraction] 94 % Anay Lawrence GUIDE DOG TRAINER.[employer] Work Phone: [facility] 10-30-2023 10:22-0400 Systolic blood pressure 122 mm[Hg] Anay Lawrence GUIDE DOG TRAINER.[employer] Work Phone: [facility] 10-07-2023 15:08-0400 Body mass index (BMI) [Ratio] 33.01 kg/m2 Gabriela Linda MD Work Phone: [facility] 10-07-2023 15:08-0400 Body weight 92.72 kg Gabriela Linda MD Work Phone: [facility] 10-07-2023 15:08-0400 Diastolic blood pressure 60 mm[Hg] Gabriela Linda MD Work Phone: [facility] 10-07-2023 15:08-0400 Heart rate 50 /min Gabriela Linda MD Work Phone: [facility] 10-07-2023 15:08-0400 Respiratory rate 16 /min Gabriela Linda MD Work Phone: [facility] 10-07-2023 15:08-0400 SaO2% (BldA) [Mass fraction] 99 % Gabriela Linda MD Work Phone: [facility] 10-07-2023 15:08-0400 Systolic blood pressure 106 mm[Hg] Gabriela Linda MD Work Phone: [facility] 09-30-2023 13:22-0400 Body height 167.[address] Redd Linda Work Phone: [facility] 09-30-2023 13:22-0400 Body weight 93.[address] Redd Linda Work Phone: [facility] 09-03-2023 14:53-0400 Body height 167.[address] Redd Linda Work Phone: 6(070)383-510354 [address] [place] [address] 09-03-2023 14:53-0400 Body mass index (BMI) [Ratio] 32.1 kg/m2 Dr. Redd Linda Work Phone: 5(773)623-579654 [address] [place] [address] 09-03-2023 14:53-0400 Body weight 90.[address] Redd Linda Work Phone: 3(515)795-846654 [address] [place] [address] 09-03-2023 14:53-0400 Diastolic blood pressure 64 mm[Hg] Dr. Redd Linda Work Phone: 9(340)205-928754 [address] [place] [address] 09-03-2023 14:53-0400 Heart rate 50 /min Dr. Redd Linda Work Phone: 2(846)636-428294 [place] [address] 09-03-2023 14:53-0400 Respiratory rate 18 /min Dr. Redd Linda Work Phone: 2(210)250-812694 [place] [address] 09-03-2023 14:53-0400 SaO2% (BldA) [Mass fraction] 96 % Dr. Redd Linda Work Phone: 8(051)895-527554 [address] [place] [address] 09-03-2023 14:53-0400 Systolic blood pressure 111 mm[Hg] Dr. Redd Linda Work Phone: 4(731)803-068493 [address] 09-01-2023 12:52-0400 Body temperature 97.7 [degF] Dr. Redd Linda Work Phone: 1(563)522-993054 [address] [place] [address] 09-01-2023 12:52-0400 Diastolic blood pressure 60 mm[Hg] Dr. Redd Linda Work Phone: 4(873)449-677454 [address] [place] [address] 09-01-2023 12:52-0400 Heart rate 56 /min Dr. Redd Linda Work Phone: [facility] 09-01-2023 12:52-0400 Respiratory rate 12 /min Dr. Redd Linda Work Phone: [facility] 09-01-2023 12:52-0400 SaO2% (BldA) [Mass fraction] 95 % Dr. Redd Linda Work Phone: [facility] 09-01-2023 12:52-0400 Systolic blood pressure 110 mm[Hg] Dr. Redd Linda Work Phone: [facility] 08-30-2023 08:19-0400 Body weight 91.[address] Redd Linda Work Phone: [facility] 08-21-2023 09:54-0500 Body height 167.6 cm Rita Delgado MD Work Phone: [facility] 08-21-2023 09:54-0500 Body weight 92 kg Rita Delgado MD Work Phone: [facility] 08-21-2023 09:54-0500 Diastolic blood pressure 49 mm[Hg] Rita Delgado MD Work Phone: [facility] 08-21-2023 09:54-0500 Heart rate 48 /min Rita Delgado MD Work Phone: [facility] 08-21-2023 09:54-0500 SaO2% (BldA) [Mass fraction] 97 % Rita Delgado MD Work Phone: [facility] 08-21-2023 09:54-0500 Systolic blood pressure 157 mm[Hg] Rita Delgado MD Work Phone: [facility] 08-02-2023 08:49-0500 Body height 167.[address] Redd Linda Work Phone: [facility] 08-02-2023 08:49-0500 Body weight 91.[address] Redd Linda Work Phone: [facility] 07-31-2023 10:05-0500 Body height 167.6 cm Gabriela Linda MD Work Phone: [facility] 07-31-2023 10:05-0500 Body weight 88 kg Gabriela Linda MD Work Phone: [facility] 07-31-2023 10:05-0500 Diastolic blood pressure 80 mm[Hg] Gabriela Linda MD Work Phone: [facility] 07-31-2023 10:05-0500 Heart rate 48 /min Gabriela Linda MD Work Phone: [facility] 07-31-2023 10:05-0500 Respiratory rate 16 /min Gabriela Linda MD Work Phone: [facility] 07-31-2023 10:05-0500 Systolic blood pressure 98 mm[Hg] Gabriela Linda MD Work Phone: 4(553)551-785097 [place] [address] 07-03-2023 10:28-0500 Body mass index (BMI) [Ratio] 31.8 kg/m2 Dr. Redd Linda Work Phone: 3(375)533-144354 [address] [place] [address] 07-03-2023 10:16-0500 Body height 167.[address] Redd Linda Work Phone: 8(882)342-486154 [address] [place] [address] 07-03-2023 10:16-0500 Body weight 89.[address] Redd Linda Work Phone: 3(454)208-848794 [place] [address] 07-03-2023 10:08-0500 Diastolic blood pressure 73 mm[Hg] Dr. Redd Linda Work Phone: 3(663)175-084594 [place] [address] 07-03-2023 10:08-0500 Heart rate 56 /min Dr. Redd Linda Work Phone: 3(079)576-335554 [address] [place] [address] 07-03-2023 10:08-0500 SaO2% (BldA) [Mass fraction] 100 % Dr. Redd Linda Work Phone: 3(390)901-264994 [place] [address] 07-03-2023 10:08-0500 Systolic blood pressure 122 mm[Hg] Dr. Redd Linda Work Phone: 4(266)977-396194 [place] [address] 06-27-2023 15:27-0500 Body temperature 97.8 [degF] Dr. Redd Linda Work Phone: 2(371)553-486394 [place] [address] 06-27-2023 15:27-0500 Diastolic blood pressure 48 mm[Hg] Dr. Redd Linda Work Phone: 7(952)068-333294 [place] [address] 06-27-2023 15:27-0500 Heart rate 53 /min Dr. Redd Linda Work Phone: 5(791)372-342894 [place] [address] 06-27-2023 15:27-0500 Respiratory rate 16 /min Dr. Redd Linda Work Phone: 6(895)706-420494 [place] [address] 06-27-2023 15:27-0500 SaO2% (BldA) [Mass fraction] 97 % Dr. Redd Linda Work Phone: 5(884)996-467094 [place] [address] 06-27-2023 15:27-0500 Systolic blood pressure 152 mm[Hg] Dr. Redd Linda Work Phone: 1(259)736-263194 [place] [address] 06-27-2023 11:02-0500 Body height 167.[address] Redd Linda Work Phone: 4(701)024-612094 [place] [address] 06-27-2023 11:02-0500 Body mass index (BMI) [Ratio] 30.8 kg/m2 Dr. Redd Linda Work Phone: 6(305)401-910294 [place] [address] 06-27-2023 11:02-0500 Body weight 86.[address] Redd Linda Work Phone: 9(677)248-824194 [place] [address] 06-26-2023 16:00-0500 Inhaled oxygen flow rate 2 L/min Dr. eRdd Linda Work Phone: 3(602)590-490594 [place] [address] 06-05-2023 09:01-0500 Body mass index (BMI) [Ratio] 32.8 kg/m2 Dr. Redd Linda Work Phone: 0(120)405-064994 [place] [address] 06-05-2023 09:01-0500 Body weight 89.[address] Redd Linda Work Phone: 0(807)523-887394 [place] [address] 06-05-2023 09:01-0500 Diastolic blood pressure 73 mm[Hg] Dr. Redd Linda Work Phone: 0(809)312-519794 [place] [address] 06-05-2023 09:01-0500 Heart rate 56 /min Dr. Redd Linda Work Phone: [facility] 06-05-2023 09:01-0500 Respiratory rate 18 /min Dr. Redd Linda Work Phone: [facility] 06-05-2023 09:01-0500 SaO2% (BldA) [Mass fraction] 100 % Dr. Redd Linda Work Phone: [facility] 06-05-2023 09:01-0500 Systolic blood pressure 122 mm[Hg] Dr. Redd Linda Work Phone: 0(230)817-010454 [address] [place] [address] 05-28-2023 11:34-0500 Body temperature 97.2 [degF] Anay Podlogar GUIDE DOG TRAINER.[employer] Work Phone: [facility] 05-28-2023 11:34-0500 Body weight 89.99 kg Anay Podlogar GUIDE DOG TRAINER.[employer] Work Phone: [facility] 05-28-2023 11:34-0500 Diastolic blood pressure 56 mm[Hg] Anay Podlogar GUIDE DOG TRAINER.[employer] Work Phone: [facility] 05-28-2023 11:34-0500 Heart rate 53 /min Anay Podlogar GUIDE DOG TRAINER.[employer] Work Phone: [facility] 05-28-2023 11:34-0500 Respiratory rate 18 /min Anay Podlogar GUIDE DOG TRAINER.[employer] Work Phone: [facility] 05-28-2023 11:34-0500 SaO2% (BldA) [Mass fraction] 96 % Anay Podlogar GUIDE DOG TRAINER.[employer] Work Phone: [facility] 05-28-2023 11:34-0500 Systolic blood pressure 96 mm[Hg] Anay Podlogar GUIDE DOG TRAINER.[employer] Work Phone: [facility] 05-18-2023 11:31-0500 Diastolic blood pressure 87 mm[Hg] Dr. Redd Linda Work Phone: 5(765)309-973354 [address] [place] [address] 05-18-2023 11:31-0500 Heart rate 51 /min Dr. Redd Linda Work Phone: 6(134)898-357394 [place] [address] 05-18-2023 11:31-0500 Respiratory rate 18 /min Dr. Redd Linda Work Phone: 7(192)420-478694 [place] [address] 05-18-2023 11:31-0500 SaO2% (BldA) [Mass fraction] 97 % Dr. Redd Linda Work Phone: 6(249)726-909794 [place] [address] 05-18-2023 11:31-0500 Systolic blood pressure 158 mm[Hg] Dr. Redd Linda Work Phone: 8(591)061-299494 [place] [address] 05-18-2023 07:18-0500 Body height 165.[address] Redd Linda Work Phone: 3(109)931-289694 [place] [address] 05-18-2023 07:18-0500 Body mass index (BMI) [Ratio] 33.6 kg/m2 Dr. Redd Linda Work Phone: 3(627)763-860694 [place] [address] 05-18-2023 07:18-0500 Body temperature 97.6 [degF] Dr. Redd Linda Work Phone: 1(905)032-844694 [place] [address] 05-18-2023 07:18-0500 Body weight 91.[address] Redd Linda Work Phone: 6(863)420-964694 [place] [address] 05-07-2023 13:02-0500 Body weight 87.64 kg Gabriela Linda MD Work Phone: [facility] 05-07-2023 13:02-0500 Diastolic blood pressure 60 mm[Hg] Gabriela Linda MD Work Phone: [facility] 05-07-2023 13:02-0500 Heart rate 75 /min Gabriela Linda MD Work Phone: [facility] 05-07-2023 13:02-0500 Respiratory rate 16 /min Gabriela Linda MD Work Phone: [facility] 05-07-2023 13:02-0500 SaO2% (BldA) [Mass fraction] 98 % Gabriela Linda MD Work Phone: [facility] 05-07-2023 13:02-0500 Systolic blood pressure 108 mm[Hg] Gabriela Linda MD Work Phone: [facility] 05-06-2023 11:11-0500 Body height 165.1 cm Radhika Kraynick GUIDE DOG 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: [facility] 05-06-2023 11:11-0500 Body mass index (BMI) [Ratio] 32.28 kg/m2 Radhika Kraynick GUIDE DOG 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: [facility] 05-06-2023 11:11-0500 Body weight 88 kg Radhika Kraynick GUIDE DOG 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: [facility] 05-06-2023 11:11-0500 Diastolic blood pressure 52 mm[Hg] Radhika Kraynick GUIDE DOG 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: [facility] 05-06-2023 11:11-0500 Heart rate 52 /min Radhika Kraynick GUIDE DOG 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: [facility] 05-06-2023 11:11-0500 Respiratory rate 15 /min Radhika Kraynick GUIDE DOG 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: [facility] 05-06-2023 11:11-0500 Systolic blood pressure 100 mm[Hg] Radhika Yingynick GUIDE DOG 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: [facility] 05-01-2023 11:37-0500 Body temperature 96.49 [degF] Chris Licona MD Work Phone: [facility] 05-01-2023 11:37-0500 Diastolic blood pressure 50 mm[Hg] Chris Licona MD Work Phone: [facility] 05-01-2023 11:37-0500 Heart rate 58 /min Chris Licona MD Work Phone: [facility] 05-01-2023 11:37-0500 Respiratory rate 18 /min Chris Licona MD Work Phone: [facility] 05-01-2023 11:37-0500 SaO2% (BldA) [Mass fraction] 97 % Chris Licona MD Work Phone: [facility] 05-01-2023 11:37-0500 Systolic blood pressure 122 mm[Hg] Chris Licona MD Work Phone: [facility] 05-01-2023 09:59-0500 Body height 165.1 cm Chris Licona MD Work Phone: [facility] 05-01-2023 09:59-0500 Body mass index (BMI) [Ratio] 32.12 kg/m2 Chris Licona MD Work Phone: [facility] 05-01-2023 09:59-0500 Body weight 87.54 kg Chris Licona MD Work Phone: [facility] 04-29-2023 16:00-0500 Diastolic blood pressure 57 mm[Hg] Dr. Redd Linda Work Phone: [facility] 04-29-2023 16:00-0500 Respiratory rate 11 /min Dr. Redd Linda Work Phone: [facility] 04-29-2023 16:00-0500 SaO2% (BldA) [Mass fraction] 95 % Dr. Redd Linda Work Phone: [facility] 04-29-2023 16:00-0500 Systolic blood pressure 140 mm[Hg] Dr. Redd Linda Work Phone: [facility] 04-29-2023 15:00-0500 Body temperature 97.6 [degF] Dr. Redd Linda Work Phone: [facility] 04-29-2023 15:00-0500 Diastolic blood pressure 64 mm[Hg] Dr. Redd Linda Work Phone: [facility] 04-29-2023 15:00-0500 Heart rate 51 /min Dr. Redd Linda Work Phone: 7(684)620-909394 [place] [address] 04-29-2023 15:00-0500 Inhaled oxygen flow rate 2 L/min Dr. Redd Linda Work Phone: 1(934)953-028294 [place] [address] 04-29-2023 15:00-0500 Respiratory rate 12 /min Dr. Redd Linda Work Phone: 6(333)927-093694 [place] [address] 04-29-2023 15:00-0500 SaO2% (BldA) [Mass fraction] 96 % Dr. Redd Linda Work Phone: 5(452)460-419994 [place] [address] 04-29-2023 15:00-0500 Systolic blood pressure 160 mm[Hg] Dr. Redd Lidna Work Phone: 7(367)400-848794 [place] [address] 04-27-2023 14:50-0500 Body height 165.[address] Redd Linda Work Phone: 9(782)546-742494 [place] [address] 04-27-2023 14:50-0500 Body mass index (BMI) [Ratio] 32.1 kg/m2 Dr. Redd Linda Work Phone: 8(227)385-192494 [place] [address] 04-27-2023 14:50-0500 Body weight 87.[address] Redd Linda Work Phone: 2(125)174-511594 [place] [address] 04-27-2023 13:09-0500 Diastolic blood pressure 93 mm[Hg] Dr. Redd Linda Work Phone: 2(791)232-505694 [place] [address] 04-27-2023 13:09-0500 Heart rate 61 /min Dr. Redd Linda Work Phone: 8(641)677-086894 [place] [address] 04-27-2023 13:09-0500 Inhaled oxygen flow rate 2 L/min Dr. Redd Linda Work Phone: 5(127)383-838994 [place] [address] 04-27-2023 13:09-0500 Respiratory rate 14 /min Dr. Redd Linda Work Phone: 7(577)202-491994 [place] [address] 04-27-2023 13:09-0500 SaO2% (BldA) [Mass fraction] 96 % Dr. Redd Linda Work Phone: [facility] 04-27-2023 13:09-0500 Systolic blood pressure 122 mm[Hg] Dr. Redd Linda Work Phone: [facility] 04-27-2023 10:31-0500 Body height 165.[address] Redd Linda Work Phone: [facility] 04-27-2023 10:31-0500 Body mass index (BMI) [Ratio] 31.4 kg/m2 Dr. Redd Linda Work Phone: [facility] 04-27-2023 10:31-0500 Body temperature 98 [degF] Dr. Redd Linda Work Phone: [facility] 04-27-2023 10:31-0500 Body weight 85.[address] Redd Linda Work Phone: [facility] 04-10-2023 09:43-0400 Diastolic blood pressure 64 mm[Hg] Gabriela Linda MD Work Phone: [facility] 04-10-2023 09:43-0400 Systolic blood pressure 120 mm[Hg] Gabriela Linda MD Work Phone: [facility] 04-10-2023 09:07-0400 Body height 167.6 cm Gabriela Linda MD Work Phone: [facility] 04-10-2023 09:07-0400 Body weight 91.63 kg Gabriela Linda MD Work Phone: [facility] 04-10-2023 09:07-0400 Heart rate 62 /min Gabriela Linda MD Work Phone: [facility] 04-10-2023 09:07-0400 Respiratory rate 16 /min Gabriela Linda MD Work Phone: [facility] 04-04-2023 14:26-0400 Respiratory rate 18 /min Baylee Colin APRN.CNP Work Phone: [facility] 03-08-2023 15:14-0400 Body mass index (BMI) [Ratio] 34.7 kg/m2 Dr. Redd Linda Work Phone: [facility] 03-08-2023 15:14-0400 Body weight 94.[address] Redd Linda Work Phone: [facility] 03-08-2023 15:14-0400 Diastolic blood pressure 70 mm[Hg] Dr. Redd Linda Work Phone: [facility] 03-08-2023 15:14-0400 Heart rate 55 /min Dr. Redd Linda Work Phone: [facility] 03-08-2023 15:14-0400 Respiratory rate 18 /min Dr. Redd Linda Work Phone: [facility] 03-08-2023 15:14-0400 SaO2% (BldA) [Mass fraction] 95 % Dr. Redd Linda Work Phone: [facility] 03-08-2023 15:14-0400 Systolic blood pressure 137 mm[Hg] Dr. Redd Linda Work Phone: [facility] 02-20-2023 11:39-0400 Body temperature 97.2 [degF] Gabriela Linda MD Work Phone: [facility] 02-20-2023 11:39-0400 Body weight 96.07 kg Gabriela Linda MD Work Phone: [facility] 02-20-2023 11:39-0400 Diastolic blood pressure 80 mm[Hg] Gabriela Linda MD Work Phone: [facility] 02-20-2023 11:39-0400 Heart rate 62 /min Gabriela Linda MD Work Phone: [facility] 02-20-2023 11:39-0400 Respiratory rate 16 /min Gabriela Linda MD Work Phone: [facility] 02-20-2023 11:39-0400 SaO2% (BldA) [Mass fraction] 98 % Gabriela Linda MD Work Phone: [facility] 02-20-2023 11:39-0400 Systolic blood pressure 124 mm[Hg] Gabriela Linda MD Work Phone: [facility] 02-13-2023 07:28-0400 Body height 167.6 cm Rita Delgado MD Work Phone: [facility] 02-13-2023 07:28-0400 Body weight 95.17 kg Rita Delgado MD Work Phone: [facility] 02-13-2023 07:28-0400 Diastolic blood pressure 57 mm[Hg] Rita Delgado MD Work Phone: [facility] 02-13-2023 07:28-0400 Heart rate 54 /min Rita Delgado MD Work Phone: [facility] 02-13-2023 07:28-0400 SaO2% (BldA) [Mass fraction] 94 % Rita Delgado MD Work Phone: [facility] 02-13-2023 07:28-0400 Systolic blood pressure 129 mm[Hg] Rita Delgado MD Work Phone: [facility] 01-29-2023 12:46-0400 Body temperature 97.3 [degF] Gabriela Linda MD Work Phone: [facility] 01-29-2023 12:46-0400 Diastolic blood pressure 64 mm[Hg] Gabriela Linda MD Work Phone: [facility] 01-29-2023 12:46-0400 Heart rate 56 /min Gabriela Linda MD Work Phone: [facility] 01-29-2023 12:46-0400 Respiratory rate 16 /min Gabriela Linda MD Work Phone: [facility] 01-29-2023 12:46-0400 SaO2% (BldA) [Mass fraction] 97 % Gabriela Linda MD Work Phone: [facility] 01-29-2023 12:46-0400 Systolic blood pressure 116 mm[Hg] Gabriela Linda MD Work Phone: [facility] 01-21-2023 22:04-0400 Heart rate 82 /min Dr. Redd Linda Work Phone: [facility] 01-21-2023 22:04-0400 Respiratory rate 18 /min Dr. Redd Linda Work Phone: [facility] 01-21-2023 22:04-0400 SaO2% (BldA) [Mass fraction] 96 % Dr. Redd Linda Work Phone: [facility] 01-21-2023 19:49-0400 Body mass index (BMI) [Ratio] 34.4 kg/m2 Dr. Redd Linda Work Phone: [facility] 01-21-2023 19:49-0400 Body temperature 98.2 [degF] Dr. Redd Linda Work Phone: [facility] 01-21-2023 19:49-0400 Body weight 94.[address] Redd Linad Work Phone: [facility] 01-21-2023 19:49-0400 Diastolic blood pressure 77 mm[Hg] Dr. Redd Linda Work Phone: [facility] 01-21-2023 19:49-0400 Systolic blood pressure 178 mm[Hg] Dr. Redd Linda Work Phone: [facility] 01-21-2023 16:07-0400 Body temperature 98.29 [degF] Gabriela Linda MD Work Phone: [facility] 01-21-2023 16:07-0400 Diastolic blood pressure 68 mm[Hg] Gabriela Linda MD Work Phone: [facility] 01-21-2023 16:07-0400 Heart rate 55 /min Gabriela Linda MD Work Phone: [facility] 01-21-2023 16:07-0400 Respiratory rate 16 /min Gabriela Linda MD Work Phone: [facility] 01-21-2023 16:07-0400 SaO2% (BldA) [Mass fraction] 96 % Gabriela Linda MD Work Phone: [facility] 01-21-2023 16:07-0400 Systolic blood pressure 128 mm[Hg] Gabriela Linda MD Work Phone: [facility] 12-03-2022 14:40-0400 Body height 167.6 cm Gabriela Linda MD Work Phone: [facility] 12-03-2022 14:40-0400 Body weight 95.25 kg Gabriela Linda MD Work Phone: [facility] 12-03-2022 14:40-0400 Diastolic blood pressure 62 mm[Hg] Gabriela Linda MD Work Phone: [facility] 12-03-2022 14:40-0400 Heart rate 64 /min Gabriela Linda MD Work Phone: [facility] 12-03-2022 14:40-0400 Respiratory rate 16 /min Gabriela Linda MD Work Phone: [facility] 12-03-2022 14:40-0400 Systolic blood pressure 116 mm[Hg] Gabriela Linda MD Work Phone: [facility] 10-23-2022 08:51-0400 Body mass index (BMI) [Ratio] 34.2 kg/m2 Dr. Dot Garces Work Phone: [facility] 10-23-2022 08:51-0400 Body weight 93.[address] Dot Garces Work Phone: [facility] 10-23-2022 08:51-0400 Diastolic blood pressure 68 mm[Hg] Dr. Dot Garces Work Phone: [facility] 10-23-2022 08:51-0400 Heart rate 57 /min Dr. Dot Garces Work Phone: [facility] 10-23-2022 08:51-0400 Respiratory rate 18 /min Dr. Dot Garces Work Phone: [facility] 10-23-2022 08:51-0400 SaO2% (BldA) [Mass fraction] 97 % Dr. Dot Garces Work Phone: [facility] 10-23-2022 08:51-0400 Systolic blood pressure 108 mm[Hg] Dr. Dot Garces Work Phone: [facility] 05-14-2022 08:26-0500 Body temperature 97.4 [degF] Dr. Dot Garces Work Phone: [facility] Work Phone: 05-14-2022 08:26-0500 Body weight 94.[address] Dot Garces Work Phone: [facility] Work Phone: 05-14-2022 08:26-0500 Diastolic blood pressure 63 mm[Hg] Dr. Dot Garces Work Phone: [facility] Work Phone: 05-14-2022 08:26-0500 Heart rate 67 /min Dr. Dot Garces Work Phone: [facility] Work Phone: 05-14-2022 08:26-0500 Respiratory rate 16 /min Dr. Dot Garces Work Phone: [facility] Work Phone: 05-14-2022 08:26-0500 SaO2% (BldA) [Mass fraction] 93 % Dr. Dot Garces Work Phone: [facility] Work Phone: 05-14-2022 08:26-0500 Systolic blood pressure 139 mm[Hg] Dr. Dto Garces Work Phone: [facility] Work Phone: 02-28-2022 11:02-0400 Heart rate 63 /min Dr. Dot Garces Work Phone: [facility] Work Phone: 02-28-2022 11:02-0400 Respiratory rate 18 /min Dr. Dot Garces Work Phone: [facility] Work Phone: 02-28-2022 11:02-0400 SaO2% (BldA) [Mass fraction] 97 % Dr. Dot Garces Work Phone: [facility] Work Phone: 02-28-2022 10:41-0400 Body height 165.[address] Dot Garces Work Phone: [facility] Work Phone: 02-28-2022 10:41-0400 Body mass index (BMI) [Ratio] 32.8 kg/m2 Dr. Dot Garces Work Phone: [facility] Work Phone: 02-28-2022 10:41-0400 Body temperature 99 [degF] Dr. Dot Garces Work Phone: [facility] Work Phone: 02-28-2022 10:41-0400 Body weight 89.[address] Dot Garces Work Phone: [facility] Work Phone: 02-28-2022 10:41-0400 Diastolic blood pressure 63 mm[Hg] Dr. Dot Garces Work Phone: [facility] Work Phone: 02-28-2022 10:41-0400 Systolic blood pressure 157 mm[Hg] Dr. Dot Garces Work Phone: [facility] Work Phone: 02-27-2022 15:14-0400 Body mass index (BMI) [Ratio] 33.3 kg/m2 Dr. Dot Garces Work Phone: [facility] Work Phone: 02-27-2022 15:14-0400 Body weight 90.[address] Dot Garces Work Phone: [facility] Work Phone: 02-27-2022 15:14-0400 Diastolic blood pressure 61 mm[Hg] Dr. Dot Garces Work Phone: [facility] Work Phone: 02-27-2022 15:14-0400 Heart rate 51 /min Dr. Dot Garces Work Phone: [facility] Work Phone: 02-27-2022 15:14-0400 Respiratory rate 16 /min Dr. Dot Garces Work Phone: [facility] Work Phone: 02-27-2022 15:14-0400 Systolic blood pressure 116 mm[Hg] Dr. 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 Dot Garces Work Phone: [facility] Work Phone: 01-25-2022 09:50-0400 Body temperature 98.1 [degF] Dr. Dot Garces Work Phone: [facility] Work Phone: 01-25-2022 09:50-0400 Body weight 89.[address] Dot Garces Work Phone: [facility] Work Phone: 01-25-2022 09:50-0400 Diastolic blood pressure 76 mm[Hg] Dr. Dot Garces Work Phone: [facility] Work Phone: 01-25-2022 09:50-0400 Heart rate 52 /min Dr. Dot Garces Work Phone: [facility] Work Phone: 01-25-2022 09:50-0400 Respiratory rate 16 /min Dr. Dot Garces Work Phone: [facility] Work Phone: 01-25-2022 09:50-0400 SaO2% (BldA) [Mass fraction] 98 % Dr. Dot Garces Work Phone: [facility] Work Phone: 01-25-2022 09:50-0400 Systolic blood pressure 122 mm[Hg] Dr. Dot Garces Work Phone: [facility] Work Phone: 01-19-2022 15:25-0400 Body mass index (BMI) [Ratio] 33.1 kg/m2 Dr. Dot Garces Work Phone: [facility] Work Phone: 01-19-2022 15:25-0400 Body weight 90.[address] Dot Garces Work Phone: [facility] Work Phone: 01-17-2022 14:07-0400 Diastolic blood pressure 88 mm[Hg] Dr. Carlos Clarke Work Phone: [facility] Work Phone: 01-17-2022 14:07-0400 Heart rate 47 /min Dr. Carlos Clarke Work Phone: [facility] Work Phone: 01-17-2022 14:07-0400 Systolic blood pressure 138 mm[Hg] Dr. Carlos Clarke Work Phone: [facility] Work Phone: 01-17-2022 12:36-0400 Body height 165.[address] Carlos Clarke Work Phone: [facility] Work Phone: 01-17-2022 12:36-0400 Body mass index (BMI) [Ratio] 33.1 kg/m2 Dr. Carlos Clarke Work Phone: [facility] Work Phone: 01-17-2022 12:36-0400 Body temperature 97.8 [degF] Dr. Carlos Clarke Work Phone: [facility] Work Phone: 01-17-2022 12:36-0400 Body weight 90.[address] Carlos Clarke Work Phone: [facility] Work Phone: 01-17-2022 12:36-0400 Respiratory rate 16 /min Dr. Carlos Clarke Work Phone: [facility] Work Phone: 01-17-2022 12:36-0400 SaO2% (BldA) [Mass fraction] 98 % Dr. Carlos Clarke Work Phone: [facility] Work Phone: 12-29-2021 11:26-0400 Body temperature 97.5 [degF] Dr. Carlos Clarke Work Phone: [facility] Work Phone: 12-29-2021 11:26-0400 Diastolic blood pressure 69 mm[Hg] Dr. Carlos Clarke Work Phone: [facility] Work Phone: 12-29-2021 11:26-0400 Heart rate 55 /min Dr. Carlos Clarke Work Phone: [facility] Work Phone: 12-29-2021 11:26-0400 Respiratory rate 16 /min Dr. Carlos Clarke Work Phone: [facility] Work Phone: 12-29-2021 11:26-0400 SaO2% (BldA) [Mass fraction] 92 % Dr. Carlos Clarke Work Phone: [facility] Work Phone: 12-29-2021 11:26-0400 Systolic blood pressure 102 mm[Hg] Dr. Carlos Clarke Work Phone: [facility] Work Phone: 12-29-2021 11:20-0400 Inhaled oxygen flow rate 4 L/min Dr. Carlos Clarke Work Phone: [facility] Work Phone: 12-29-2021 09:42-0400 Body height 167.[address] Carlos Clarke Work Phone: [facility] Work Phone: 12-29-2021 09:42-0400 Body mass index (BMI) [Ratio] 32 kg/m2 Dr. Carlos Clarke Work Phone: [facility] Work Phone: 12-29-2021 09:42-0400 Body weight [address] Carlos Clarke Work Phone: [facility] Work Phone: 12-28-2021 11:08-0400 Body mass index (BMI) [Ratio] 33.7 kg/m2 Dr. Carlos Clarke Work Phone: [facility] Work Phone: 12-28-2021 11:08-0400 Body temperature 97.6 [degF] Dr. Carlos Clarke Work Phone: [facility] Work Phone: 12-28-2021 11:08-0400 Body weight 94.[address] Carlos Clarke Work Phone: [facility] Work Phone: 12-28-2021 11:08-0400 Diastolic blood pressure 82 mm[Hg] Dr. Carlos Clarke Work Phone: [facility] Work Phone: 12-28-2021 11:08-0400 Heart rate 53 /min Dr. Carlos Clarke Work Phone: [facility] Work Phone: 12-28-2021 11:08-0400 Respiratory rate 14 /min Dr. Carlos Clarke Work Phone: [facility] Work Phone: 12-28-2021 11:08-0400 SaO2% (BldA) [Mass fraction] 95 % Dr. Carlos Clarke Work Phone: [facility] Work Phone: 12-28-2021 11:08-0400 Systolic blood pressure 150 mm[Hg] Dr. Carlos Clarke Work Phone: [facility] Work Phone: 12-07-2021 07:52-0400 Body mass index (BMI) [Ratio] 32.8 kg/m2 Dr. Carlos Clarke Work Phone: [facility] Work Phone: 12-07-2021 07:52-0400 Body temperature 97.2 [degF] Dr. Carlos Clarke Work Phone: [facility] Work Phone: 12-07-2021 07:52-0400 Body weight 92.[address] Carlos Clarke Work Phone: [facility] Work Phone: 12-07-2021 07:52-0400 Diastolic blood pressure 72 mm[Hg] Dr. Carlos Clarke Work Phone: [facility] Work Phone: 12-07-2021 07:52-0400 Heart rate 46 /min Dr. Carlos Clarke Work Phone: [facility] Work Phone: 12-07-2021 07:52-0400 Respiratory rate 16 /min Dr. Carlos Clarke Work Phone: [facility] Work Phone: 12-07-2021 07:52-0400 SaO2% (BldA) [Mass fraction] 99 % Dr. Carlos Clarke Work Phone: [facility] Work Phone: 12-07-2021 07:52-0400 Systolic blood pressure 153 mm[Hg] Dr. Carlos Clarke Work Phone: [facility] Work Phone: 12-03-2021 12:13-0400 Diastolic blood pressure 63 mm[Hg] Dr. Carlos Clarke Work Phone: [facility] Work Phone: 12-03-2021 12:13-0400 Heart rate 50 /min Dr. Carlos Clarke Work Phone: [facility] Work Phone: 12-03-2021 12:13-0400 Respiratory rate 12 /min Dr. Carlos Clarke Work Phone: [facility] Work Phone: 12-03-2021 12:13-0400 SaO2% (BldA) [Mass fraction] 98 % Dr. Carlos Clarke Work Phone: [facility] Work Phone: 12-03-2021 12:13-0400 Systolic blood pressure 124 mm[Hg] Dr. Carlos Clarke Work Phone: [facility] Work Phone: 12-03-2021 09:25-0400 Body height 167.[address] Carlos Clarke Work Phone: [facility] Work Phone: 12-03-2021 09:25-0400 Body mass index (BMI) [Ratio] 33.9 kg/m2 Dr. Carlos Clarke Work Phone: [facility] Work Phone: 12-03-2021 09:25-0400 Body temperature 97 [degF] Dr. Carlos Clarke Work Phone: [facility] Work Phone: 12-03-2021 09:25-0400 Body weight 95.[address] Carlos Clarke Work Phone: [facility] Work Phone: 10-26-2021 08:11-0400 Body mass index (BMI) [Ratio] 32.9 kg/m2 Dr. Carlos Clarke Work Phone: [facility] Work Phone: 10-26-2021 08:11-0400 Body temperature 97.7 [degF] Dr. Carlos Clarke Work Phone: [facility] Work Phone: 10-26-2021 08:11-0400 Body weight 92.[address] Carlos Clarke Work Phone: [facility] Work Phone: 10-26-2021 08:11-0400 Diastolic blood pressure 62 mm[Hg] Dr. Carlos Clarke Work Phone: [facility] Work Phone: 10-26-2021 08:11-0400 Heart rate 53 /min Dr. Carlos Clarke Work Phone: [facility] Work Phone: 10-26-2021 08:11-0400 Respiratory rate 14 /min Dr. Carlos Clarke Work Phone: [facility] Work Phone: 10-26-2021 08:11-0400 SaO2% (BldA) [Mass fraction] 97 % Dr. Carlos Clarke Work Phone: [facility] Work Phone: 10-26-2021 08:11-0400 Systolic blood pressure 128 mm[Hg] Dr. Carlos Clarke Work Phone: [facility] Work Phone: 10-23-2021 16:53-0400 Diastolic blood pressure 65 mm[Hg] [facility] Work Phone: 10-23-2021 16:53-0400 Heart rate 41 /min [facility] Work Phone: 10-23-2021 16:53-0400 Respiratory rate 15 /min [facility] Work Phone: 10-23-2021 16:53-0400 SaO2% (BldA) [Mass fraction] 97 % [facility] Work Phone: 10-23-2021 16:53-0400 Systolic blood pressure 130 mm[Hg] [facility] Work Phone: 10-23-2021 13:40-0400 Body height 167.64 cm [facility] Work Phone: 10-23-2021 13:40-0400 Body mass index (BMI) [Ratio] 33 kg/m2 [facility] Work Phone: 10-23-2021 13:40-0400 Body temperature 98 [degF] [facility] Work Phone: 10-23-2021 13:40-0400 Body weight 92.7 kg [facility] Work Phone: 07-12-2021 10:22-0500 Body height 167.64 cm Carlos Reilly Linoer Work Phone: [facility] Work Phone: 07-12-2021 10:22-0500 Body mass index (BMI) [Ratio] 32.44 kg/m2 Carlos O Clarke Work Phone: [facility] Work Phone: 07-12-2021 10:22-0500 Body surface area Derived from formula 2 m2 Carlos O Clarke Work Phone: [facility] Work Phone: 07-12-2021 10:22-0500 Body weight 91.17 kg Carlos O Clarke Work Phone: [facility] Work Phone: 07-12-2021 10:22-0500 Diastolic blood pressure 80 mm[Hg] Carlos O Clarke Work Phone: [facility] Work Phone: 07-12-2021 10:22-0500 Heart rate 56 /min Carlos O Clarke Work Phone: [facility] Work Phone: 07-12-2021 10:22-0500 Systolic blood pressure 120 mm[Hg] Carlos O Clarke Work Phone: [facility] Work Phone: 04-14-2021 11:03-0400 Body height 167.64 cm Carlos O Clarke Work Phone: [facility] Work Phone: 04-14-2021 11:03-0400 Body mass index (BMI) [Ratio] 33.57 kg/m2 Carlos O Clarke Work Phone: [facility] Work Phone: 04-14-2021 11:03-0400 Body surface area Derived from formula 2.03 m2 Carlos O Clarke Work Phone: [facility] Work Phone: 04-14-2021 11:03-0400 Body weight 94.35 kg Carlos O Clarke Work Phone: [facility] Work Phone: 04-14-2021 11:03-0400 Diastolic blood pressure 74 mm[Hg] Carlos O Clarke Work Phone: [facility] Work Phone: 04-14-2021 11:03-0400 Heart rate 56 /min Carlos O Clarke Work Phone: [facility] Work Phone: 04-14-2021 11:03-0400 Systolic blood pressure 116 mm[Hg] Carlos O Clarke Work Phone: [facility] Work Phone: 02-03-2021 08:29-0400 Body height 167.64 cm Carlos O Clarke Work Phone: [facility] Work Phone: 02-03-2021 08:29-0400 Body mass index (BMI) [Ratio] 33.73 kg/m2 Carlos O Clarke Work Phone: [facility] Work Phone: 02-03-2021 08:29-0400 Body surface area Derived from formula 2.04 m2 Carlos O Clarke Work Phone: [facility] Work Phone: 02-03-2021 08:29-0400 Body weight 94.8 kg Carlos O Clarke Work Phone: [facility] Work Phone: 02-03-2021 08:29-0400 Diastolic blood pressure 64 mm[Hg] Carlos O Clarke Work Phone: [facility] Work Phone: 02-03-2021 08:29-0400 Heart rate 60 /min Carlos O Clarke Work Phone: [facility] Work Phone: 02-03-2021 08:29-0400 Systolic blood pressure 122 mm[Hg] Carlos O Clarke Work Phone: [facility] Work Phone: 01-05-2021 14:27-0400 Body height 167.64 cm Carlos O Clarke Work Phone: [facility] Work Phone: 01-05-2021 14:27-0400 Body mass index (BMI) [Ratio] 34.54 kg/m2 Carlos O Clarke Work Phone: [facility] Work Phone: 01-05-2021 14:27-0400 Body surface area Derived from formula 2.06 m2 Carlos O Clarke Work Phone: [facility] Work Phone: 01-05-2021 14:27-0400 Body weight 97.07 kg Carlos O Clarke Work Phone: [facility] Work Phone: 01-05-2021 14:27-0400 Diastolic blood pressure 80 mm[Hg] Carlos O Clarke Work Phone: [facility] Work Phone: 01-05-2021 14:27-0400 Heart rate 64 /min Carlos O Clarke Work Phone: [facility] Work Phone: 01-05-2021 14:27-0400 Systolic blood pressure 118 mm[Hg] Carlos O Clarke Work Phone: [facility] Work Phone: 02-16-2020 13:37-0400 BMI (Body Mass Index) 39.59 kg/m[facility] 13:37-0400 Body weight 101.38 kg Raisa [facility] 02-16-2020 13:37-0400 BP Diastolic 80 mm[Hg] [facility]-16-2020 13:37-0400 BP Systolic 124 mm[Hg] [facility] 02-16-2020 13:37-0400 Height 160 cm [facility] 02-16-2020 13:37-0400 Pulse (Heart Rate) 55 /min Raisa Moehmy [facility] 02-16-2020 13:37-0400 Pulse Oximetry 94 % Raisa Moehmy [facility] 07-23-2019 13:16-0500 BMI (Body Mass Index) 40.39 kg/m2 Masood Sanchez [facility] 07-23-2019 13:16-0500 Body weight 103.42 kg Masood Sanchez [facility] 07-23-2019 13:16-0500 BP Diastolic 80 mm[Hg] Masood Sanchez [facility] 07-23-2019 13:16-0500 BP Systolic 122 mm[Hg] Masood Sanchez [facility] 07-23-2019 13:16-0500 Pulse (Heart Rate) 60 /min Masood Sanchez [facility] 07-23-2019 13:16-0500 Pulse Oximetry 90 % Masood Sanchez [facility] 07-10-2019 15:17-0500 BMI (Body Mass Index) 36.32 kg/m2 Janel Gahlawat [facility] Work Phone: 07-10-2019 15:17-0500 Body weight 102.06 kg Janel Gahlawat [facility] Work Phone: 07-10-2019 15:17-0500 BP Diastolic 58 mm[Hg] Janel Gahlawat [facility] Work Phone: Comment on above: Location: LUE; Position: Sitting 07-10-2019 15:17-0500 BP Systolic 140 mm[Hg] Janel Gahlawat [facility] Work Phone: Comment on above: Location: LUE; Position: Sitting 07-10-2019 15:17-0500 BSA (Body Surface Area) 2.1 m2 Janel Gahlawat [facility] Work Phone: 07-10-2019 15:17-0500 Height 167.64 cm Janel Gahlawat [facility] Work Phone: 07-10-2019 15:17-0500 Pulse (Heart Rate) 56 /min Janel Gahlawat [facility] Work Phone: 07-02-2019 15:58-0500 BMI (Body Mass Index) 36.32 kg/m2 Janel Gahlawat [facility] Work Phone: 07-02-2019 15:58-0500 Body weight 102.06 kg Janel G[facility]lawat [facility] Work Phone: 07-02-2019 15:58-0500 BP Diastolic 76 mm[Hg] Janel [facility] Work Phone: 07-02-2019 15:58-0500 BP Systolic 118 mm[Hg] Janel Serrano [facility] Work Phone: 07-02-2019 15:58-0500 BSA (Body Surface Area) 2.1 m2 Janel Lowell [facility] Work Phone: 07-02-2019 15:58-0500 Height 167.64 cm Janeldev Serrano [facility] Work Phone: 07-02-2019 15:58-0500 Pulse (Heart Rate) 70 /min Janel Lowell [facility] Work Phone: 01-02-2019 07:53-0400 BMI (Body Mass Index) 40.3 kg/m2 Masood [facility] 01-02-2019 07:53-0400 Body weight 103.19 kg Masood [facility] 01-02-2019 07:53-0400 BP Diastolic 70 mm[Hg] Masood [facility] 01-02-2019 07:53-0400 BP Systolic 114 mm[Hg] [facility]-02-2019 07:53-0400 Height 160 cm Masood [facility] 01-02-2019 07:53-0400 Pulse (Heart Rate) 53 /min [facility] 01-02-2019 07:53-0400 Pulse Oximetry 92 % Masood [facility]arm[facility] 10-04-2017 10:44-0400 BMI (Body Mass Index) 40.21 kg/m2 Mick Cortes [facility] 10-04-2017 10:44-0400 BP Diastolic 78 mm[Hg] Mick Cortes [facility] 10-04-2017 10:44-0400 BP Systolic 124 mm[Hg] Mick Cortes [facility] 10-04-2017 10:44-0400 Height 160 cm Mick Cortes [facility] 10-04-2017 10:44-0400 Pulse (Heart Rate) 57 /min Mick Cortes [facility] 10-04-2017 10:44-0400 Pulse Oximetry 95 % Mick Cortes [facility] 10-04-2017 10:44-0400 Weight 102.97 kg Mick Cortes [facility] 06-18-2017 11:29-0500 BMI (Body Mass Index) 39.68 kg/m2 [address] [facility] Work Phone: 06-18-2017 11:29-0500 BP Diastolic 71 mm[Hg] [address] [facility] Work Phone: 06-18-2017 11:29-0500 BP Systolic 104 mm[Hg] [address] [facility] Work Phone: 06-18-2017 11:29-[address] [facility] Work Phone: 06-18-2017 11:29-0500 Pulse (Heart Rate) 54 /min [address] [facility] Work Phone: 06-18-2017 11:29-0500 Pulse Oximetry 96 % [address] [facility] Work Phone: 06-18-2017 11:29-[address] [facility] Work Phone: Encounters Encounter Date Encounter Type Care Provider Facility Start: 02-03-2025 ambulatory [facility] Start: 01-29-2025 End: 01-29-2025 Telephone encounter Gabriela Linda MD Work Phone: NOC Comment on above: Appointment Start: 01-27-2025 End: 01-27-2025 ambulatory Traci Jean OTR/L Work Phone: [facility] Comment on above: Arthritis of both hunter nds (Primary Dx); Trigger middle finger of right hand; Pain in both hands Start: 01-26-2025 End: 01-26-2025 ambulatory ANAY PODLOGAR Facility:[facility] Start: 01-25-2025 End: 01-26-2025 Follow-up encounter Gabriela Linda MD Work Phone: [facility] [place] Comment on above: Results Start: 01-25-2025 End: 01-25-2025 Telephone encounter Rita Delgado MD Work Phone: Neurology Comment on above: Insurance Authorizat ion Start: 01-25-2025 End: 01-25-2025 Patient encounter procedure Eyad Victoria GUIDE DOG TRAINER.NUTRITION CLUB AMBASSADOR Work Phone: [facility] [place] Comment on above: Generalized anxiety disorder (Primary Dx); Panic disorder Start: 01-25-2025 End: 01-25-2025 ambulatory GABRIELA LINDA Facility:[facility] Start: 01-22-2025 End: 01-25-2025 Telephone encounter Anay Lawrence GUIDE DOG TRAINER.NUTRITION CLUB AMBASSADOR Work Phone: [facility] [place] Comment on above: Patient Update Start: 01-22-2025 End: 01-22-2025 Subsequent hospital visit by physician [facility] W[facility] (I-Stat) Work Phone: Cat Scan Comment on above: Dizziness [R42] Start: 01-22-2025 End: 01-22-2025 ambulatory ANAY PODLOGROSALIA Facility:[facility] Start: 01-21-2025 End: 01-21-2025 Emergency department patient visit Dr. Redd Linda MD Work Phone: -Emergency Department Work Phone: Start: 01-15-2025 End: 01-18-2025 Refill Gabriela Linda MD Work Phone: [facility] Comment on above: Refill Request Start: 01-13-2025 End: 01-13-2025 Patient encounter procedure Trenton Packer NP-Rachid -[facility] Work Phone: Start: 01-13-2025 End: 01-13-[address] Redd Linda MD Work Phone: -[facility] Start: 01-13-2025 Non-patient / Non-visit Dr. [place] SON -[facility] Work Phone: Start: 01-13-2025 End: 01-13-[address] Redd Linda MD Work Phone: -Pulmonary Services/Neurology Start: 01-13-2025 End: 01-13-2025 Patient encounter procedure Trenton Packer STUD SETTER-C -Pulmonary Services/Neurology Work Phone: Start: 01-13-2025 End: 01-13-2025 ambulatory Trenton Packer STUD SETTER Facility:[facility] Start: 01-06-2025 End: 01-06-2025 Subsequent hospital visit by physician M[facility] (I-Stat/1.5t) Work Phone: Radiology Comment on above: Dizziness [R42] Start: 01-06-2025 End: 01-06-2025 Subsequent hospital visit by physician [facility] Work Phone: Radiology Comment on above: Gross hematuria [R31 .0] Dizziness [R42] Start: 01-06-2025 End: 01-06-2025 ambulatory Sydni Leger PT [facility] Comment on above: Falls frequently (Pr imary Dx) Start: 01-04-2025 End: 01-04-2025 Refill Gabriela Linda MD Work Phone: [facility] Comment on above: Refill Request Start: 12-29-2024 End: 12-29-2024 Telephone encounter Anay Lawrence APRN.CNP Work Phone: [facility] Comment on above: Orders Start: 12-24-2024 End: 12-24-2024 Refill Anay Lawrence APRN.CNP Work Phone: [facility] Comment on above: Refill Request Start: 12-23-2024 ambulatory GABRIELA LINDA Facility:[facility] Start: 12-23-2024 End: 12-23-2024 Subsequent hospital visit by physician Screen Mammo [facility] Mammogram Start: 12-22-2024 End: 12-24-2024 ambulatory Anay Lawrence APRN.CNP Work Phone: [facility] Start: 12-22-2024 End: 12-24-2024 Patient encounter procedure Anay Lawrence APRN.CNP Work Phone: [facility] Comment on above: Needed prior to appo intment Start: 12-17-2024 End: 12-17-2024 Telephone encounter Gabriela Linda MD Work Phone: [facility] Comment on above: Patient Update Start: 12-16-2024 End: 12-16-2024 Patient encounter procedure Trenton Packer STUD SETTER-C -[facility] Work Phone: Start: 12-16-2024 End: 12-16-[address] Redd Linda MD Work Phone: -[facility] Start: 12-15-2024 End: 12-15-2024 Patient encounter procedure Anay Lawrence APRN.NUTRITION CLUB AMBASSADOR Work Phone: [facility] Comment on above: Dizziness (Primary D x); Headache, unspecified headache type; Visual changes; Gross hematuria; Falls frequently Start: 12-15-2024 End: 12-15-2024 ambulatory ANAY LAWRENCE Facility:[facility] Start: 12-14-2024 End: 12-14-[address] Redd Linda MD Work Phone: -Laboratory Start: 12-14-2024 End: 12-14-2024 Patient encounter procedure Usha Barrett NP-C -Laboratory Work Phone: Start: 12-14-2024 End: 12-14-2024 Patient encounter procedure Usha MCKEON -[facility] Work Phone: Start: 12-14-2024 End: 12-14-[address] Redd Linda MD Work Phone: -[facility] Start: 12-14-2024 End: 12-14-2024 ambulatory Usha Barrett Facility:[facility] Start: 12-09-2024 End: 12-09-2024 ambulatory GABRIELA LINDA Facility:[facility] Start: 12-09-2024 End: 12-09-2024 Office outpatient new 60 minutes Carmencita Caldera MD Work Phone: Rheumatology Comment on above: Arthritis pain (Prim davon Dx); Positive SHUN (antinuclear antibody); Spondylosis of lumbar region without myelopathy or radiculopathy; Renal angiomyolipoma; Trigger middle finger of right hand; Sicca syndrome (HCC); Counseling and coordination of care Start: 12-09-2024 End: 12-09-2024 ambulatory GABRIELA LINDA Facility:[facility] Start: 12-04-2024 End: 12-04-2024 Telephone encounter Gabriela Linda MD Work Phone: [facility] [place] Comment on above: Insurance Authorizat ion Start: 11-12-2024 End: 11-12-2024 Patient encounter procedure Anay Lawrence APRN.CNP Work Phone: [facility] [place] Comment on above: Postconcussional syn drome; Contusion of lower back, subsequent encounter; Dizziness and giddiness Start: 11-12-2024 End: 11-12-2024 ambulatory ANAY LAWRENCE Facility:[facility] Start: 11-03-2024 End: 11-03-2024 Emergency department patient visit Dr. Redd Linda MD Work Phone: -Emergency Department Work Phone: Start: 10-20-2024 End: 10-20-2024 Refill Anay Lawrence APRN.NUTRITION CLUB AMBASSADOR Work Phone: [facility] [place] Comment on above: Refill Request Medication Problem Start: 10-08-2024 End: 10-12-2024 Refill Gabriela Linda MD Work Phone: [facility] [place] Comment on above: Refill Request Start: 10-07-2024 End: 10-07-2024 Patient encounter procedure Gabriela Linda MD Work Phone: [facility] [place] Comment on above: Myalgias (Primary Dx ); RLS (restless legs syndrome); Chronic insomnia Start: 10-07-2024 End: 10-07-2024 ambulatory Gabriela Linda MD Work Phone: [facility] [place] Comment on above: Generalized pain Start: 10-05-2024 End: 10-05-2024 Refill Rita Delgado MD Work Phone: Neurology Comment on above: Refill Request Start: 08-31-2024 End: 09-01-2024 Refill Rita Delgado MD Work Phone: Neurology Comment on above: Refill Request Start: 08-31-2024 End: 09-01-2024 Refill Rita Delgado MD Work Phone: Neurology Comment on above: Refill Request Start: 08-26-2024 End: 08-26-2024 Telephone encounter Trneton Seaman MD Work Phone: [facility] [place] Comment on above: Appointment (ILESI) Start: 08-24-2024 End: 08-24-2024 ambulatory Trenton Seaman MD Work Phone: [facility] [place] Comment on above: Procedure (ilesi); B ack Pain (Lower - bilateral - left is worse) Start: 08-24-2024 End: 08-24-2024 Patient encounter procedure Trenton Seaman MD Work Phone: [facility] [place] Start: 08-24-2024 End: 08-24-2024 ambulatory MALLORY JONES Facility:[facility] Start: 08-20-2024 End: 08-20-2024 Telephone encounter Gabriela Linda MD Work Phone: [facility] [place] Comment on above: Patient Update Start: 08-20-2024 End: 08-20-2024 Telemedicine consultation with patient Eyad Victoria APRN.[employer]TR[employer]UB AMBASSADOR Work Phone: [facility] [place] Start: 08-20-2024 End: 08-20-2024 ambulatory Eyad Victoria APRN.NUTRITION CLUB AMBASSADOR Work Phone: [facility] [place] Comment on above: Viral illness (Prima ry Dx) Start: 08-19-2024 End: 08-19-2024 Patient encounter procedure Trenton [facility] Work Phone: Start: 08-19-2024 End: 08-19-2024 ambulatory Trenton Packer NP Facility:[facility] Start: 08-05-2024 End: 08-05-2024 ambulatory GABRIELA LINDA Facility:[facility] Start: 08-05-2024 End: 08-05-2024 Patient encounter procedure Anay Lawrence GUIDE DOG TRAINER.NUTRITION CLUB AMBASSADOR Work Phone: [facility] Comment on above: Controlled type 2 di abetes mellitus without complication, without long-term current use of insulin (HCC) (Primary Dx); Mixed hyperlipidemia; Essential hypertension Start: 07-17-2024 End: 07-17-2024 Refill Anay Podlogrosalia GUIDE DOG TRAINER.NUTRITION CLUB AMBASSADOR Work Phone: [facility] Comment on above: Refill Request Start: 07-15-2024 End: 07-15-2024 ambulatory Rita Delgado MD Work Phone: Neurology Comment on above: LADAN (obstructive sle ep apnea) (Primary Dx); RLS (restless legs syndrome) Start: 07-15-2024 End: 07-15-2024 Telemedicine consultation with patient Rita Delgado MD Work Phone: Neurology Start: 07-14-2024 End: 07-15-2024 Refill Anay Podlogar GUIDE DOG TRAINER.[facility] Work Phone: [facility] Comment on above: Refill Request Start: 07-02-2024 End: 07-02-2024 Telephone encounter Trenton Seaman MD Work Phone: [facility] [place] Comment on above: Anticoagulation (Fax ed anticag letter) Injections (question s) Start: 07-02-2024 End: 07-02-2024 Patient encounter procedure Baylee Prebish GUIDE DOG TRAINER.NUTRITION CLUB AMBASSADOR Work Phone[facility] Comment on above: Chronic bilateral lo w back pain without sciatica (Primary Dx); Degeneration of intervertebral disc of lumbar region with discogenic back pain and lower extremity pain; Lumbar radiculopathy Start: 07-02-2024 End: 07-02-2024 ambulatory BAYLEE PREBISH [facility] Start: 06-26-2024 End: 06-26-2024 ambulatory ANAY PODLOGAR Facility:[facility] Start: 06-26-2024 End: 06-26-2024 Patient encounter procedure Justice Bateman Work Phone: Podiatry Comment on above: Plantar fasciitis (P rimary Dx); Pain of left heel; Xerosis cutis; Diabetic polyneuropathy associated with type 2 diabetes mellitus (HCC) Start: 06-03-2024 End: 06-03-2024 Telephone encounter Anay Carbajallogrosalia GAMBOA.NUTRITION CLUB AMBASSADOR Work Phone: [facility] [place] Comment on above: Results Start: 06-03-2024 End: 06-03-2024 ambulatory GABRIELA LINDA Facility:[facility] Start: 06-03-2024 End: 06-03-2024 Subsequent hospital visit by physician Abby [facility] Work Phone: Radiology Comment on above: Pain and swelling of right knee [M25.561, M25.461] Start: 06-03-2024 End: 06-03-2024 Patient encounter procedure Anay Carbajallogar GUIDE DOG TRAINER.NUTR[employer]UB AMBASSADOR Work Phone: [facility] [place] Comment on above: Pain and swelling of right knee (Primary Dx) Vaginal atrophy (Giselle annalisa Dx); Vaginal itching Start: 06-03-2024 End: 06-03-2024 ambulatory ANAY PODLOGAR Facility:[facility] Start: 05-29-2024 End: 05-29-2024 Telephone encounter Anay Lawrence APRN.NUTR[employer] CLUB AMBASSADOR Work Phone: [facility] [place] Comment on above: Results Start: 05-27-2024 End: 05-27-2024 Patient encounter procedure Anay Podlogar GUIDE DOG TRAINER.NUTR[employer]UB AMBASSADOR Work Phone: [facility] [place] Comment on above: Pain of left heel (P rimary Dx) Start: 05-27-2024 End: 05-27-2024 ambulatory ANAY PODLOGAR Facility:[facility] Start: 05-25-2024 End: 05-25-2024 Telephone encounter Anay Carbajallogrosalia GUIDE DOG TRAINER.NUTR[employer] AMBASSADOR Work Phone: [facility] [place] Start: 05-22-2024 End: 06-19-2024 ambulatory Anay Podlogar GUIDE DOG TRAINER.NUTR[employer] CLUB AMBASSADOR Work Phone: [facility] [place] Comment on above: Cece Start: 05-21-2024 End: 05-21-2024 Telephone encounter Devora Moore [facility] Comment on above: New Primary Care Pha rmacy Appt. Start: 05-19-2024 End: 05-22-2024 Telephone encounter Gabriela Linda MD Work Phone: [facility] [place] Comment on above: Cece ROBERTS Start: 05-18-2024 End: 05-20-2024 Telephone encounter Anay Lawrence GUIDE DOG TRAINER.NUTRITION CLUB AMBASSADOR Work Phone: [facility] [place] Comment on above: Results Start: 05-13-2024 End: 05-13-2024 ambulatory ANAY PODLOGAR Facility:[facility] Start: 05-07-2024 End: 05-07-2024 ambulatory Redd Linda Facility:[facility] Start: 05-06-2024 End: 05-06-2024 Patient encounter procedure Anay Carbajallogrosalia GUIDE DOG TRAINER.NUTRITION CLUB AMBASSADOR Work Phone: [facility] [place] Comment on above: Type 2 diabetes mehdi itus without retinopathy (HCC) (Primary Dx); Essential hypertension; Mixed hyperlipidemia; Encounter for immunization; Myopathy; Coronary artery disease of [place] artery of [place] heart with stable angina pectoris (HCC); LADAN treated with BiPAP; S/P CABG x 4; Statin intolerance Start: 05-06-2024 End: 05-06-2024 ambulatory ANAY PODLOGAR Facility:[facility] Start: 05-04-2024 End: 05-04-2024 ambulatory Estrellita Das [facility] Work Phone: [facility] Start: 05-04-2024 End: 05-04-2024 Patient encounter procedure Estrellita Das [facility] Work Phone: [facility] Start: 04-21-2024 End: 04-21-2024 ambulatory Baylee Colin GUIDE DOG TRAINER.NUTRITION CLUB AMBASSADOR Work Phone: [facility] Start: 04-21-2024 End: 04-21-2024 Patient encounter procedure Baylee Colin APRN.NUTRITION CLUB AMBASSADOR Work Phone: [facility] Comment on above: Appointment Start: 04-20-2024 ambulatory Laila Troy Facility:[facility] Start: 04-20-2024 End: 04-20-2024 Telephone encounter Rita Delgado MD Work Phone: Neurology Comment on above: Appointment (DOWNLOA D PAP THERAPY FOLLOW UP) Start: 04-20-2024 End: 04-21-2024 ambulatory [facility] Facility:[facility] Start: 04-08-2024 End: 04-08-2024 Subsequent hospital visit by physician Xr [facility] Work Phone: Radiology Comment on above: Viral bronchitis [J2 0.8] Start: 04-08-2024 End: 04-08-2024 Patient encounter procedure Gabriela Linda MD Work Phone: [facility] Comment on above: Suspected COVID-19 v irus infection (Primary Dx); Productive cough; Viral bronchitis Start: 04-08-2024 End: 04-08-2024 ambulatory GABRIELA LINDA Facility:[facility] Start: 03-29-2024 End: 03-30-2024 ambulatory Rita Delgado MD Work Phone: Neurology Comment on above: ? Start: 03-27-2024 End: 04-06-2024 ambulatory Anay Lawrence APRN.NUTRITION CLUB AMBASSADOR Work Phone: [facility] Comment on above: Vaginal itching Start: 03-19-2024 End: 03-20-2024 Refill Gabriela Linda MD Work Phone: [facility] Comment on above: Refill Request Start: 03-18-2024 End: 03-18-2024 Refill Anay Lawrence APRN.NUTR[employer] CLUB AMBASSADOR Work Phone: [facility] Comment on above: Refill Request Start: 03-12-2024 End: 03-17-2024 Telephone encounter Eyad Victoria APRN.NUTR[employer] CLUB AMBASSADOR Work Phone: [facility] [place] Comment on above: Results Start: 03-11-2024 End: 03-11-2024 Patient encounter procedure Anay Carbajallogrosalia GAMBOA.NUTRITION CLUB AMBASSADOR Work Phone: [facility] [place] Comment on above: Vaginal itching (Giselle annalisa Dx) Start: 03-11-2024 End: 03-11-2024 ambulatory ANAY PODLOGAR Facility:[facility] Start: 03-09-2024 End: 03-10-2024 ambulatory Rita Delgado MD Work Phone: Neurology Comment on above: Prescription Start: 03-09-2024 End: 03-09-2024 Telephone encounter Gabriela Linda MD Work Phone: [facility] [place] Comment on above: Patient Update Start: 02-25-2024 End: 02-25-2024 Patient encounter procedure Anay Podlogrosalia GAMBOA.NUTR[employer] CLUB AMBASSADOR Work Phone: [facility] [place] Comment on above: Itching (Primary Dx) Start: 02-25-2024 End: 02-25-2024 ambulatory ANAY PODLOGAR Facility:[facility] Start: 02-24-2024 End: 02-24-2024 ambulatory Gabriela Linda MD Work Phone: [facility] [place] Comment on above: Symptoms. Rash Start: 02-20-2024 End: 02-20-2024 Telephone encounter Gabriela Linda MD Work Phone: [facility] [place] Comment on above: Results Start: 02-19-2024 End: 02-19-2024 Telephone encounter Gabriela Linda MD Work Phone: [facility] Comment on above: Patient Update; Appo intment Start: 02-19-2024 End: 02-19-2024 ambulatory ANAY PODLOGAR Facility:[facility] Start: 02-19-2024 End: 02-19-2024 Patient encounter procedure Gabriela Linda MD Work Phone: [facility] [place] Comment on above: Vulvovaginal candidi asis (Primary Dx) Start: 02-19-2024 End: 02-19-2024 ambulatory [facility] Facility:[facility] Start: 02-18-2024 End: 02-18-2024 Telephone encounter Leonardo Narvaez APRN.CNP Work Phone: [facility] Comment on above: Results Start: 02-17-2024 End: 02-17-2024 ambulatory [facility] Facility:[facility] Start: 02-17-2024 End: 02-17-2024 Patient encounter procedure Eden Salazar PA-C Work Phone: [facility] Comment on above: Leukocytes in urine (Primary Dx); Urinary frequency; Dysuria; Chills; Fever, unspecified fever cause Start: 02-13-2024 End: 02-13-2024 Telephone encounter Rita Delgado MD Work Phone: Neurology Comment on above: Management Recruiter - O ther (Nidra prescription) Start: 02-12-2024 End: 02-12-2024 E-mail encounter from caregiver Rita Delgado MD Work Phone: Neurology Start: 02-12-2024 End: 02-12-2024 ambulatory Rita Delgado MD Work Phone: Neurology Comment on above: LADAN (obstructive sle ep apnea) (Primary Dx); Restless legs syndrome (RLS); 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) suboxone Start: 02-12-2024 End: 02-12-2024 Telemedicine consultation with patient Rita Delgado MD Work Phone: Neurology Start: 02-04-2024 End: 02-04-2024 Telephone encounter Rita Delgado MD Work Phone: Neurology Comment on above: Appointment (ROSALIAA Melony PAP THERAPY FOLLOW UP) Start: 12-26-2023 Telephone encounter Randall curran APRN.CNP Work Phone: Neurology Comment on above: PAP Rx Faxed (DME: Nicolette [facility]ERNAL ) Start: 12-25-2023 End: 12-25-2023 ambulatory Randall Silva APRN.NUTR[employer] CLUB AMBASSADOR Work Phone: Neurology Comment on above: LADAN (obstructive sle ep apnea) (Primary Dx); Restless legs syndrome (RLS); 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) Refill Request Start: 12-25-2023 End: 12-25-2023 Telemedicine consultation with patient Randall Silva GUIDE DOG TRAINER.NUTRITION CLUB AMBASSADOR Work Phone: Neurology Start: 12-24-2023 Telephone encounter Randall Mukherjee Rina curran GUIDE DOG TRAINER.NUTRITION CLUB AMBASSADOR Work Phone: Neurology Comment on above: CPAP Compliance Summ davon (90 day (09/25/2023 - 12/23/2023)/) Start: 12-18-2023 Documentation procedure Mammog parag Coordinator [facility] Department Start: 12-18-2023 Letter encounter Mammography Coordinator [facility] Start: 12-18-2023 Telephone encounter Anay cardoso APRN.NUTR[employer] CLUB AMBASSADOR Work Phone: [facility] [place] Comment on above: Results (Mammogram) Start: 12-18-2023 End: 12-18-2023 Subsequent hospital visit by physician Screen Mammo [facility] Comment on above: Encounter for screen ing mammogram for breast cancer [Z12.31] Start: 12-09-2023 ambulatory Gabriela Linda MD Work Phone: [facility] Comment on above: Allied Health Visit (Medication Adherence Outreach/) Start: 11-26-2023 Refill Gabriela Linda MD Work Phone: [facility] Comment on above: Refill Request Start: 11-20-2023 Telephone encounter Redd Linda MD Work Phone: [facility] [place] Comment on above: medication list Start: 11-17-2023 E-mail encounter fro m caregiver Baylee Colin APRN.NUTRITION CLUB AMBASSADOR Work Phone: [facility] Start: 11-17-2023 Patient encounter procedure Baylee Colin APRN.NUTRITION CLUB AMBASSADOR Work Phone: [facility] Comment on above: Appointment Request Start: 11-14-2023 Refill Anay Carbajallogar GUIDE DOG TRAINER.NUTR[employer] CLUB AMBASSADOR Work Phone: [facility] [place] Comment on above: Refill Request Start: 11-13-2023 Telephone encounter Anay Deshpande ogar GUIDE DOG TRAINER.[employer]TR[employer] CLUB AMBASSADOR Work Phone: [facility] [place] Comment on above: Results Start: 11-11-2023 E-mail encounter fro m caregiver Baylee Evanssh GUIDE DOG TRAINER.NUTRITION CLUB AMBASSADOR Work Phone: [facility] Start: 11-11-2023 Patient encounter procedure Baylee Prebish GUIDE DOG TRAINER.NUTRITION CLUB AMBASSADOR Work Phone: [facility] Comment on above: Appointment Request Start: 11-04-2023 Refill Yanique Mcknight GUIDE DOG TRAINER.[employer] AMBASSADOR Work Phone: Neurology Comment on above: Refill Request Start: 11-01-2023 Telephone encounter Anay Deshpande ogar GUIDE DOG TRAINER.NUTR[employer] CLUB AMBASSADOR Work Phone: [facility] [place] Comment on above: Results Start: 10-31-2023 E-mail encounter fro m caregiver Baylee Prebish GUIDE DOG TRAINER.NUTR[employer] CLUB AMBASSADOR Work Phone: [facility] Start: 10-31-2023 Patient encounter procedure Baylee Prebish GUIDE DOG TRAINER.NUTR[employer] CLUB AMBASSADOR Work Phone: [facility] Comment on above: Appointment Request Start: 10-30-2023 End: 10-30-2023 Patient encounter procedure Anay Podlogar GUIDE DOG TRAINER.[employer]TR[employer]UB AMBASSADOR Work Phone: [facility] Comment on above: Type 2 diabetes mehdi itus without retinopathy (HCC) (Primary Dx); Essential hypertension; Encounter for screening mammogram for breast cancer; Stage 3a chronic kidney disease (HCC); 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); Coronary artery disease of [place] artery of [place] heart with stable angina pectoris (HCC); LADAN treated with BiPAP; Mixed hyperlipidemia; S/P CABG x 4; Gastroesophageal reflux disease without esophagitis Start: 10-25-2023 ambulatory Gabriela Linda MD Work Phone: [facility] Comment on above: Medications Start: 10-24-2023 ambulatory Anne Bay RN Ambulato ry Care Management Comment on above: HEATH ALBRIGHT RN ( ED utilization review per request of payor) Start: 10-14-2023 End: 10-15-[address] Redd Linda Work Phone: [facility] Work Phone: Start: 10-14-2023 End: 10-15-[address] Redd Linda Work Phone: [facility] Work Phone: Start: 10-08-2023 Refill Dang Sweet i, MD Work Phone: Neurology Comment on above: Refill Request Start: 10-07-2023 End: 10-07-2023 Subsequent hospital visit by physician [facility] Work Phone: Radiology Comment on above: Acute pain of right knee [M25.561] Start: 10-07-2023 End: 10-07-2023 Patient encounter procedure Gabriela Linda MD Work Phone: [facility] Comment on above: Acute pain of right knee (Primary Dx); Swelling of joint, knee, right; Fall in home, initial encounter Start: 09-13-2023 End: 09-15-[address] Redd Linda Work Phone: [facility] Work Phone: Start: 09-13-2023 End: 09-15-[address] Redd Linda Work Phone: [facility] Work Phone: Start: 09-08-2023 Refill Gabriela Linda MD Work Phone: [facility] Comment on above: Refill Request Start: 09-03-2023 End: 09-03-[address] Redd Linda Work Phone: [facility] Work Phone: Start: 09-01-2023 End: 09-01-[address] Redd Linda Work Phone: [facility] Work Phone: Start: 08-21-2023 End: 08-21-2023 Patient encounter procedure Rita Delgado MD Work Phone: Neurology Comment on above: Obstructive sleep ap tasha (Primary Dx); RLS (restless legs syndrome); Primary insomnia Start: 08-19-2023 Telephone encounter Redd Linda MD Work Phone: [facility] Comment on above: Results Start: 08-16-2023 Telephone encounter Redd Linda MD Work Phone: [facility] Start: 08-16-2023 End: 08-16-2023 Subsequent hospital visit by physician [facility] Comment on above: CA (acute kidney in jury) (HCC) [N17.9] Start: 08-15-2023 Telephone encounter [facility] Work Phone: Neurology Comment on above: Appointment (ROSALIAA D PAP THERAPY FOLLOW UP) Results Start: 08-14-2023 End: 08-15-[address] Redd Linda Work Phone: [facility] Work Phone: Start: 08-14-2023 End: 08-15-[address] Redd Linda Work Phone: [facility] Work Phone: Start: 08-08-2023 End: 08-08-[address] Redd Linda Work Phone: [facility] Services/Neurology Work Phone: Start: 08-05-2023 Refill Rita Delgado MD Work Phone: Neurology Comment on above: Refill Request Start: 07-31-2023 End: 07-31-2023 Patient encounter procedure Gabriela Linda MD Work Phone: [facility] Comment on above: Nausea and vomiting, unspecified vomiting type (Primary Dx); Hypotension, unspecified hypotension type; Bradycardia; CA (acute kidney injury) (HCC); Anemia, unspecified type; Gastric ulcer without hemorrhage or perforation, unspecified chronicity; Essential tremor Start: 07-22-2023 End: 07-22-[address] Redd Linda Work Phone: [facility] Work Phone: Start: 07-22-2023 End: 07-22-[address] Redd Linda Work Phone: [facility]Labor[facility] Work Phone: Start: 07-19-[address] Marcelo Linda Work Phone: [facility] Work Phone: Start: 07-17-2023 End: 07-17-[address] Redd Linda Work Phone: [facility] Work Phone: Start: 07-17-2023 End: 07-17-[address] Redd Linda Work Phone: [facility] Work Phone: Start: 07-03-2023 End: 07-03-[address] Redd Linda Work Phone: [facility] Work Phone: Start: 07-03-2023 End: 07-03-[address] Redd Linda Work Phone: [facility] Work Phone: Start: 06-27-2023 Non-patient / Non-visit Dr. Michelle Linda Work Phone: [facility] Work Phone: Start: 06-27-2023 End: 06-27-2023 Non-patient / Non-visit Dr. Redd Linda Work Phone: [facility] Work Phone: Start: 06-27-2023 Non-patient / Non-visit Dr. Michelle Linda Work Phone: [facility] Start: 06-26-2023 Non-patient / Non-visit Dr. Michelle Linda Work Phone: [facility] Start: 06-26-2023 End: 06-27-2023 Evaluation and management of inpatient Dr. Redd Linda [facility] Work Phone: Start: 06-21-2023 Non-patient / Non-visit Dr. Michelle Linda Work Phone: [facility] Start: 06-05-2023 End: 06-05-2023 Subsequent hospital visit by physician Xr [facility] Work Phone: Radiology Comment on above: Viral URI with cough [J06.9] Start: 06-05-2023 End: 06-05-[address] Redd Linda Work Phone: [facility] Work Phone: Start: 05-28-2023 End: 05-28-2023 Patient encounter procedure Anay Lawrence APRN.CNP Work Phone: [facility] [place] Comment on above: Nausea and vomiting, unspecified vomiting type (Primary Dx); Type 2 diabetes mellitus without retinopathy (HCC); Acute cough; Headache, unspecified headache type Start: 05-18-2023 Non-patient / Non-visit Dr. Michelle Linda Work Phone: [facility] Start: 05-18-2023 End: 05-18-2023 Emergency department patient visit Dr. Redd Linda Work Phone: [facility]Emergency Department Work Phone: Start: 05-17-2023 ambulatory Gabriela Linda MD Work Phone: [facility] Comment on above: Shortness of Breath Start: 05-15-2023 Telephone encounter Radhika Bustamante GUIDE DOG TRAINER [employer] Work Phone: [facility] Cardiology Comment on above: Discuss Labs Start: 05-14-2023 Non-patient / Non-visit Dr. 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); S/P CABG x 4; Essential hypertension; Mixed hyperlipidemia; Statin intolerance Start: 05-06-2023 End: 05-06-2023 ambulatory GABRIELA LINDA [facility] Start: 05-06-2023 End: 05-06-2023 Office outpatient visit 25 minutes Radhika Bustamante GUIDE DOG 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: [facility] Cardiology Comment on above: Coronary artery dise ase involving timbi-[place] shoshone coronary artery of timbi[place]sha shoshone heart without angina pectoris (Primary Dx); History of coronary artery bypass surgery; Stented coronary artery; Essential hypertension; Pure hypercholesterolemia; Hospital discharge follow-up Start: 05-03-2023 Telephone encounter Anjali swain GUIDE DOG 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: [facility] Cardiology Start: 05-02-2023 Refill Rita Delgado MD Work Phone: Neurology Comment on above: Refill Request Start: 04-29-2023 End: 05-01-2023 Evaluation and management of inpatient CHRIS LICONA [facility] Start: 04-29-2023 End: 05-01-2023 Evaluation and management of inpatient Chris Licona MD Work Phone: [facility] Cardiac Vascular Progressive Care Unit [facility] Comment on above: NSTEMI (non-ST eleva chelly myocardial infarction) ([facility]/HCC) ([facility]) (Primary Dx); Systolic murmur; Polyneuropathy due to type 2 diabetes mellitus ([facility]) ([facility]) Start: 04-29-2023 Non-patient / Non-visit Dr. Michelle Linda Work Phone: [facility] Work Phone: Start: 04-29-2023 Non-patient / Non-visit Dr. Michelle Linda Work Phone: [facility] Start: 04-28-2023 Non-patient / Non-visit Dr. Michelle Linda Work Phone: [facility] Start: 04-28-2023 Non-patient / Non-visit Dr. Michelle Linda Work Phone: [facility] Work Phone: Start: 04-27-2023 End: 04-27-2023 Non-patient / Non-visit Dr. Redd Linda Work Phone: [facility] Work Phone: Start: 04-27-2023 Non-patient / Non-visit Dr. Michelle Linda Work Phone: [facility] Work Phone: Start: 04-27-2023 End: 04-29-2023 Evaluation and management of inpatient Dr. Redd Linda [facility] Work Phone: Start: 04-27-2023 End: 04-27-2023 Emergency department patient visit Dr. Redd Linda Work Phone: [facility]Emergency Department Work Phone: Start: 04-17-2023 Telephone encounter Redd Linda MD Work Phone: [facility] Comment on above: Results Start: 04-15-2023 End: 04-15-2023 Subsequent hospital visit by physician [facility] Work Phone: Radiology Comment on above: Asymptomatic postmen opausal status [Z78.0] Start: 04-10-2023 End: 04-10-2023 Patient encounter procedure Gabriela Linda MD Work Phone: [facility] Comment on above: Type 2 diabetes mehdi itus without retinopathy (HCC) (Primary Dx); Coronary artery disease of [place]osh[place] artery of [place] shosh[place] heart with stable angina pectoris (HCC); S/P CABG x 4; Essential hypertension; Mixed hyperlipidemia; Asymptomatic postmenopausal status; Statin intolerance Refill Request; Medi cation Problem Refill Request Start: 04-04-2023 End: 04-04-2023 Office outpatient new 45 minutes Baylee Colin GUIDE DOG TRAINER.[employer] AMBASSADOR Work [facility] Comment on above: Chronic bilateral lo w back pain without sciatica (Primary Dx); Degeneration of lumbar intervertebral disc; Displacement of lumbar intervertebral disc without myelopathy; Degeneration of lumbar or lumbosacral intervertebral disc; Lumbar radiculopathy; 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); Obesity, Class I, BMI 30-34.9 Start: 04-04-2023 Telephone encounter Baylee mireles GUIDE DOG TRAINER.[employer] AMBASSADOR Work Phone: [facility] Comment on above: Injection Questions Anticoagulation Start: 03-08-2023 End: 03-08-[address] Redd Linda Work Phone: [facility] Work Phone: Start: 02-27-2023 End: 02-27-2023 Subsequent hospital visit by physician [facility] (I-Stat) Work Phone: Cat Scan Comment on above: Acute bilateral low back pain with left-sided sciatica [M54.42] Start: 02-20-2023 End: 02-20-2023 Patient encounter procedure Gabriela Linda MD Work Phone: [facility] Comment on above: Type 2 diabetes mehdi itus without retinopathy (HCC) (Primary Dx); Acute bilateral low back pain with left-sided sciatica; Encounter for immunization; 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) Start: 02-13-2023 ambulatory Albin Ty Work Phone: Neurology Comment on above: Compliance Date Start: 02-13-2023 E-mail encounter fro m caregiver Albin Reyes MD Work Phone: [facility] Start: 02-13-2023 Telephone encounter [facility] Work Phone: Neurology Comment on above: Appointment (Nisreenlobasia d Pap Therapy follow Up) Start: 02-13-2023 End: 02-13-2023 Patient encounter procedure Rita Delgado MD Work Phone: Neurology Comment on above: RLS (restless legs s yndrome) (Primary Dx); Obstructive sleep apnea Start: 02-12-2023 Telephone encounter Redd Linda MD Work Phone: [facility] Comment on above: Results Start: 02-07-2023 End: 02-07-2023 Subsequent hospital visit by physician Mri [facility] (I-Stat/1.5t) Work Phone: Radiology Comment on above: Acute bilateral low back pain with left-sided sciatica [M54.42] Start: 01-29-2023 End: 01-29-2023 Patient encounter procedure Gabriela Linda MD Work Phone: [facility] Comment on above: Fall in home, initia l encounter (Primary Dx); Laceration of left earlobe, subsequent encounter; Contusion of auricle of left ear, subsequent encounter; Visit for suture removal Start: 01-22-2023 Telephone encounter Redd Linda MD Work Phone: [facility] Comment on above: Results; Appointment Start: 01-21-2023 End: 01-21-2023 Emergency department patient visit Dr. Redd Linda [facility] Work [facility]: Start: 01-21-2023 End: 01-21-2023 Patient encounter procedure Gabriela Linda MD Work Phone: [facility] Comment on above: Suspected COVID-19 v irus infection (Primary Dx) Start: 01-21-2023 Telephone encounter Redd Linda MD Work Phone: [facility] Comment on above: Patient Update Start: 01-18-2023 End: 01-18-2023 Subsequent hospital visit by physician [facility] Work Phone: Radiology Comment on above: Acute bilateral low back pain with left-sided sciatica [M54.42] Start: 01-18-2023 Telephone encounter Redd Linda MD Work Phone: [facility] Comment on above: Patient Update; Appo intment; Patient Question Start: 01-16-2023 End: 01-16-2023 ambulatory Sydni Leger PT [facility] Physical [facility] Comment on above: Chronic bilateral lo w back pain with left-sided sciatica (Primary Dx); Hip pain, left Start: 01-15-2023 Telephone encounter Redd Linda MD Work Phone: [facility] Comment on above: Results Start: 01-14-2023 Refill Ban mustafa GUIDE DOG TRAINER.[employer] AMBASSADOR Work Phone: Neurology Comment on above: Refill Request Start: 01-11-2023 Telephone encounter Redd Linda MD Work Phone: [facility] Comment on above: Results Start: 01-09-2023 End: 01-09-2023 ambulatory Sydni Leger PT [facility] Physical Therapy Comment on above: Chronic bilateral lo w back pain with left-sided sciatica (Primary Dx); Hip pain, left Start: 01-08-2023 End: 01-08-2023 Subsequent hospital visit by physician Xr [facility] Work Phone: Radiology Comment on above: Hip pain, left [M25. 552] Start: 01-02-2023 End: 01-02-2023 ambulatory Sydni Leger PT [facility] Physical Therapy Comment on above: Chronic bilateral lo w back pain with left-sided sciatica (Primary Dx); Hip pain, left Start: 12-19-2022 End: 12-19-2022 ambulatory Sydni Arsen PT [facility] Physical Therapy Comment on above: Hip pain, left (Prim davon Dx); Chronic bilateral low back pain with left-sided sciatica Start: 12-13-2022 Documentation procedure Mammog parag Coordinator [facility] Start: 12-13-2022 Letter encounter Mammography Coordinator [facility] Department Start: 12-04-2022 Telephone encounter Redd Linda MD Work Phone: [facility] Comment on above: Results Start: 12-03-2022 End: 12-03-2022 Patient encounter procedure Gabriela Linda MD Work Phone: [facility] Comment on above: Hip pain, left (Prim davon Dx); Chronic bilateral low back pain with left-sided sciatica; Type 2 diabetes mellitus without retinopathy (HCC); Polyuria; Coronary artery disease involving timbi[place] shoshone heart without angina pectoris, unspecified vessel or lesion type; Restless legs syndrome (RLS); LADAN treated with BiPAP; Essential hypertension, benign; Screening mammogram, encounter for; Coronary artery disease of [place]osh[place] artery of tim[place] shoshone heart with stable angina pectoris (HCC) Start: 11-27-2022 Telephone encounter Redd Linda MD Work Phone: [facility] Comment on above: Appointment Start: 11-07-2022 Non-patient / Non-visit Dr. Noemí Garces Work Phone: [facility] Start: 11-07-2022 End: 11-07-[address] Dot Garces Work Phone: [facility] Work Phone: Start: 11-07-2022 End: 11-07-[address] Dot Garces Work Phone: [facility]Cardiovascular Services Start: 10-23-2022 End: 10-23-[address] Dot Garces Work Phone: [facility] Work Phone: Start: 10-23-2022 End: 10-23-[address] Dot Garces Work Phone: [facility] Start: 10-17-2022 Telephone encounter Ban daniel GUIDE DOG TRAINER.[employer] AMBASSADOR Work Phone: Neurology Comment on above: Orders Start: 10-17-2022 End: 10-17-2022 ambulatory Ban Lynn GUIDE DOG TRAINER.[employer] AMBASSADOR Work Phone: Neurology Comment on above: LADAN (obstructive sle ep apnea) (Primary Dx); Left knee pain, unspecified chronicity; Bilateral hip pain; Dry eyes; Restless legs syndrome (RLS); 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) Start: 10-17-2022 End: 10-17-2022 Telemedicine consultation with patient Ban Lynn GUIDE DOG TRAINER.[employer] AMBASSADOR Work Phone: [facility] Start: 06-13-2022 Refill Ban Root ramsey GUIDE DOG TRAINER.[employer] AMBASSADOR Work Phone: Neurology Comment on above: Refill Request Start: 05-29-2022 End: 05-29-[address] Dot Garces Work Phone: [facility] Work Phone: Start: 05-29-2022 End: 05-29-[address] Dot Garces Work Phone: [facility]-Laboratory Start: 05-14-2022 End: 05-14-[address] Dot Garces Work Phone: [facility] Start: 03-17-2022 Get Medical Advice Ban Lynn GUIDE DOG TRAINER.[employer] AMBASSADOR Work Phone: Neurology Comment on above: Refill Start: 03-08-2022 Non-patient / Non-visit Dr. Noemí Garces Work Phone: [facility] Start: 03-08-2022 End: 03-08-[address] Dot Garces Work Phone: [facility] Work Phone: Start: 03-08-2022 End: 03-08-[address] Dot Garces Work Phone: [facility]Cardi[facility] Services Start: 02-28-2022 End: 02-28-2022 Emergency department patient visit Dr. Dot Garces Work Phone: [facility]Emergency Department Start: 02-27-2022 End: 02-27-[address] Dot Garces Work Phone: [facility] Start: 02-26-2022 Telephone encounter Ban daniel GUIDE DOG TRAINER.[employer] AMBASSADOR Work Phone: Neurology Comment on above: Orders Start: 02-25-2022 Chart abstracting [facility] Work Phone: Neurology Comment on above: CMN Start: 02-24-2022 ambulatory Ban mustafa GUIDE DOG TRAINER.[employer] AMBASSADOR Work Phone: Neurology Comment on above: Medicare supplies Start: 02-21-2022 Telephone encounter Ban daniel GUIDE DOG TRAINER.[employer] AMBASSADOR Work Phone: Neurology Comment on above: OV notes (Request ) Start: 02-16-2022 End: 02-16-2022 Patient encounter procedure Ban Lynn APRN.[employer] AMBASSADOR Work Phone: Neurology Comment on above: Restless legs syndro me (RLS) (Primary Dx); 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); Iron deficiency anemia, unspecified iron deficiency anemia type; LADAN (obstructive sleep apnea) Start: 02-14-2022 Telephone encounter Ban daniel APRN.[employer] AMBASSADOR Work Phone: Neurology Comment on above: Compliance Adherence Start: 02-01-2022 AUDIT Carlos Clarke Work Phone: [facility] Work Phone: Start: 01-25-2022 End: 01-25-[address] Dot Garces Work Phone: [facility] Start: 01-19-2022 End: 01-19-[address] Dot Garces Work Phone: [facility] Start: 01-17-2022 End: 01-17-2022 Emergency department patient visit Dr. Carlos Clarke Work Phone: [facility]Emergency Department Start: 01-09-2022 Refill Jania Watts APRN.[employer] AMBASSADOR Work Phone: Neurology Comment on above: Refill Request Start: 12-29-2021 Non-patient / Non-visit Dr. Che Clarke Work Phone: [facility] Start: 12-29-2021 End: 12-29-2021 Admission to same day surgery center Dr. Carlos Clarke Work Phone: [facility]-Endoscopy Start: 12-28-2021 End: 12-28-[address] Carlos Clarke Work Phone: [facility] Start: 12-07-2021 AUDIT Carlos Clarke Work Phone: [facility] Work Phone: Start: 12-07-2021 End: 12-07-[address] Carlos Clarke Work Phone: [facility] Start: 12-03-2021 End: 12-03-2021 Emergency department patient visit Dr. Carlos Clarke Work Phone: [facility]Emergency Department Start: 10-26-2021 End: 10-26-[address] Carlos Clarke Work Phone: [facility] Start: 10-23-2021 End: 10-23-2021 [facility] Start: 10-16-2021 AUDIT Carlos Clarke Work Phone: [email or web address] Work Phone: Start: 09-04-2021 AUDIT Carlos Clarke Work Phone: [facility] Work Phone: Start: 08-10-2021 AUDIT Carlos Clarke Work Phone: [facility] Work Phone: Start: 07-14-2021 Chart Update Carlos Clarke Work Phone: [facility] Work Phone: Start: 07-12-2021 Office outpatient vi sit 25 minutes Carlos Linoer Work Phone: [facility] Work Phone: Start: 06-13-2021 Office outpatient vi sit 15 minutes Carlos Linoer Work Phone: [facility] Work Phone: Start: 06-13-2021 JULIA, Provider : Yury Astudillo, Status: Pen, Time: 7:40 AM Carlos Clarke Work Phone: [facility] Work Phone: Start: 06-12-2021 AUDIT Carlos Clarke Work Phone: [facility] Work Phone: Start: 05-13-2021 AUDIT Carlos O Clarke Work Phone: [facility] Work Phone: Start: 05-09-2021 AUDIT Carlos O Clarke Work Phone: [facility] Work Phone: Start: 05-03-2021 Chart Update Carlos O Clarke Work Phone: [facility] Work Phone: Start: 04-14-2021 EPV, Provider: Carlos Clarke, Status: Pen, Time: 11:00 AM Carlos O Clarke Work Phone: [facility] Work Phone: Start: 04-14-2021 Office outpatient vi sit 25 minutes Carlos O Clarke Work Phone: [facility] Work Phone: Start: 04-12-2021 AUDIT Carlos O Clarke Work Phone: [facility] Work Phone: Start: 2021 AUDIT Carlos Reilly Clarke Work Phone: [facility] Work Phone: Start: 02-03-2021 Office outpatient vi sit 25 minutes Carlos O Clarke Work Phone: [facility] Work Phone: Start: 01-05-2021 Office outpatient vi sit 25 minutes Carlos O Clarke Work Phone: [facility] Work Phone: Start: 01-05-2021 VIRFUVHOME, Provider : Carlos Clarke, Status: Pen, Time: 2:30 PM Carlos Grover Clarke Work Phone: [facility] Work Phone: Start: 01-05-2021 Release of Information Provide r Not In System [facility] Historical Mapping Start: 01-05-2021 CAROLE Legacy Provider Not I n System [facility] Historical Mapping Start: 01-04-2021 Chart Update Carlos Clarke Work Phone: [facility] Work Phone: Start: 01-03-2021 Chart Update Carlos Clarke Work Phone: [facility] Work Phone: Start: 12-29-2020 AUDIT Carlos Clarke Work Phone: [facility] Work Phone: Start: 12-20-2020 Chart Update Carlos Clarke Work Phone: [facility] Work Phone: Start: 12-05-2020 AUDIT Carlos Clarke Work Phone: [facility] Work Phone: Start: 08-19-2020 End: 08-19-2020 Patient encounter procedure RAISA MOEHMY [facility] Start: 08-11-2020 End: 08-11-2020 Orders Only Nataliia Elvia Garcia Work Phone: [facility] Start: 02-16-2020 End: 02-16-2020 Patient encounter procedure ARISA MOEHMY [facility] Start: 02-16-2020 End: 02-16-2020 Office outpatient visit 25 minutes Raisa Rao Work Phone: [facility] Comment on above: Obstructive sleep ap tasha treated with continuous positive airway pressure (CPAP); Essential hypertension; Mixed hyperlipidemia; Coronary artery disease of [place] artery of [place] heart with stable angina pectoris (HCC); Type 2 diabetes mellitus with other specified complication, without long-term current use of insulin (HCC) Start: 07-23-2019 Patient encounter status Provider Israel aguayo [facility] Start: 07-23-2019 End: 07-23-2019 Office outpatient visit 25 minutes Masood Sanchez Work Phone: [facility] Comment on above: Coronary artery dise ase of [place] artery of [place] heart with stable angina pectoris (HCC) (Primary Dx); Preop cardiovascular exam; Cardiac angina (HCC) Start: 07-02-2019 Patient encounter procedure Ajneldev Serrano [facility] Work Phone: Start: 06-08-2019 Patient encounter procedure Janel Serrano [facility] Work Phone: Start: 01-02-2019 End: 01-02-2019 Office outpatient visit 15 minutes Masoodsamy Alonzo Estefanimaricarmen Work Phone: [facility] Comment on above: Cardiac angina (HCC) Start: 09-01-2018 Patient encounter procedure [place] [facility] Start: 01-08-2018 Refill Blake tian DO Work Phone: [facility] Comment on above: Medication Refill Start: 12-13-2017 Refill Blake tian DO Work Phone: [facility] Comment on above: Medication Refill Start: 10-04-2017 End: 10-04-2017 Office/outpatient visit, est, level 4 Mick Cortes Work Phone: [facility] Start: 08-30-2017 Ambulatory Mick Abreu Facilit y:[facility] Start: 08-28-2017 End: 08-30-2017 Evaluation and management of inpatient Ahmad F Maatouk Facility:[facility] Start: 08-13-2017 End: 08-13-2017 Ambulatory [facility] Start: 06-18-2017 Office/outpatient vi sit, est, level [address] Work Phone: [facility] Patient encounter procedure Carlos Clarke Work Phone: [facility] Work Phone: End: 04-14-2021 Patient encounter procedure Carlos Clarke Work Phone: [facility] Work Phone: Procedures Date Procedure Procedure Detail Performing Clinician Start: 01-22-2025 Ct angiography head w/contrast/noncontrast Anay Lawrence GUIDE DOG TRAINER.[employer] Work Phone: Start: 01-06-2025 Mra head w/o contrst material Anay cardoso GUIDE DOG TRAINER.[employer] Work Phone: Start: 12-14-2024 Urnls dip stick/tablet reagent auto microscopy Dr. Redd Linda MD Work Phone: Start: 12-14-[address] Redd Linda MD Work Phone: Start: 11-03-2024 X-ray of chest, PA and lateral views Dr. Redd Linda MD Work Phone: Start: 11-03-2024 X-ray of sacrum and coccyx, two or more views Dr. Redd Linda MD Work Phone: Start: 11-03-2024 CT of head without contrast Dr. Talat Linda MD Work Phone: Start: 11-03-[address] Marcelo Linda MD Work Phone: Start: 08-24-2024 Gluc bld gluc mntr dev cleared fda spec home use Trenton Seaman MD Work Phone: Start: 08-05-2024 Hemoglobin A1c/Hemoglobin.total in Blood Anay Lawrence GUIDE DOG TRAINER.[employer] Work Phone: Start: 07-14-2024 CPAP REPORT Rita Delgado MD Work Phone: Start: 06-03-2024 Radiologic exam knee complete 4/more views Anay Lawrence GUIDE DOG TRAINER.[employer] Work Phone: Start: 04-08-2024 Radiologic exam chest 2 views Redd Linda MD Work Phone: Start: 02-17-2024 Urnls dip stick/tablet rgnt auto w/o microscopy Anay Urias GUIDE DOG TRAINER.[employer] Work Phone: Start: 02-12-2024 CPAP REPORT Rita Delgado MD Work Phone: Start: 12-18-2023 Screening mammography bi 2-view breast inc cad Anay Lawrence GUIDE DOG TRAINER.[employer] Work Phone: Start: 10-07-2023 Radiologic exam knee complete 4/more views Gabriela Linda MD Work Phone: Start: 06-27-[address] Jose Linda Work Phone: Start: 06-25-2023 CT of abdomen and pelvis with oral contrast Dr. Redd Linda Work Phone: Start: 06-25-2023 Measurement of occult blood in stool specimen using immunoassay Dr. Redd Linda Work Phone: Start: 06-25-[address] Redd Linda Work Phone: Start: 06-05-2023 Radiologic exam chest 2 views Redd Linda MD Work Phone: Start: 05-28-2023 Gluc bld gluc mntr dev cleared fda spec home use Anay Lawrence GUIDE DOG TRAINER.[employer] Work Phone: Start: 05-18-2023 SARS-CoV-2 & FLU Antigen (Rapid) Dr. Corona Linda Work Phone: Start: 05-18-[address] Redd Linda Work Phone: Start: 05-18-2023 Plain chest X-ray Dr. Redd Linda Work Phone: Start: 05-06-2023 Ecg routine ecg w/least 12 lds w/i&r Masood Martin MD Work Phone: Start: 05-01-2023 Echo tthrc r-t 2d w/wom-mode compl spec&colr d Marie Hernandez MD Work Phone: Start: 05-01-2023 Ecg routine ecg w/least 12 lds trcg only w/o i&r Luis Armenta MD Work Phone: Start: 05-01-2023 Basic metabolic panel calcium total Agustin Garcia DO Work Phone: Start: 04-30-2023 Glucose quantitative blood xcpt reagent strip Chris Licona MD Work Phone: Start: 04-30-2023 History of placement of stent for coronary artery disease History of coronary artery stent placement Dr. Redd Linda Work Phone: Comment on above: AEC-Cesip-CMQ 06/1997; ITM-XET-Iznk D1 w/ 2.5 x 18 mm Resolute Integrity Stent, LENA-Prox LAD w/ 2.25 x 14 mm Resolute Integrity Stent, CMJ-VRF-Rmqv SVG-RPDA w/ 4.0 x 34 mm Resolute Integrity Stent and LENA-Distal SVG-RPDA w/ 3.5 x 22 mm Resolute Integrity Stent 02/08/2015; UFS-WGV-Vjxbgn SVG-RPDA w/ 3.5 x 12 mm Resolute; IKB-PIZ-Ggs-SVG-RPDA w/ 4.0 x 15 mm Resolute Stent overlapping previous implanted stent 02/14/2016; BHX-DSN-KEY-Distal SVG-RPDA w/ 4.0 x 15 mm Xience Stent 08/02/2016; ZHY-OLQ-Qtyo SVG-RPDA w/ 4.0 x 20 MM Synergy Stent and MHX-IOK-Gdgspg SVG-RPDA w/ 4.5 x 20 mm Synergy Stent 08/29/2017; LENA X 3 to SVG to PDA- prox graft 4.0 x 28 mm Skypoint, mid graft 4.0 x 33 mm Skypoint, Distal graft 4.0 x 12mm Skypoint per Dr. Gerson Plascencia 04/30/23 Start: 04-30-2023 Ecg routine ecg w/least 12 lds trcg only w/o i&r Donald Anderson MD Work Phone: Start: 04-30-2023 Cardiac catheterization study Marie Hernandez MD Work Phone: Start: 04-30-2023 POCT ACT Chris Licona MD Work Phone: Start: 04-30-2023 Thromboplastin time partial plasma/whole blood Luis Armenta MD Work Phone: Start: 04-30-2023 Glucose quantitative blood xcpt reagent strip Chris Licona MD Work Phone: Start: 04-30-2023 Ecg routine ecg w/least 12 lds trcg only w/o i&r Chris Licona MD Work Phone: Start: 04-30-2023 Radiologic exam chest single view Marie Hernandez MD Work Phone: Start: 04-30-2023 Iadna respiratry probe & rev trnscr 12-25 target Marie Hernandez MD Work Phone: Start: 04-30-2023 Comprehensive metabolic panel Chris Licona MD Work Phone: Start: 04-30-2023 Lipid panel Chris Licona MD Work Phone: Start: 04-30-2023 Ecg routine ecg w/least 12 lds trcg only w/o i&r Luis Armenta MD Work Phone: Start: 04-30-2023 Lipid 1996 panel - Serum or Plasma Chris Licona MD Work Phone: Start: 04-29-2023 Glucose quantitative blood xcpt reagent strip Chris Licona MD Work Phone: Start: 04-29-2023 Thromboplastin time partial plasma/whole blood Luis Armenta MD Work Phone: Start: 04-29-2023 Ecg routine ecg w/least 12 lds trcg only w/o i&r Luis Armenta MD Work Phone: Start: 04-29-2023 Glucose quantitative blood xcpt reagent strip Chris Licona MD Work Phone: Start: 04-27-[address] Redd Linda Work Phone: Start: 04-27-2023 Plain chest X-ray Dr. Redd Linda Work Phone: Start: 04-15-2023 Dxa bone density study 1/> sites axial skel Gabriela Linda MD Work Phone: Start: 04-10-2023 Gluc bld gluc mntr dev cleared fda spec home use Gabriela Linda MD Work Phone: Start: 02-27-2023 Ct lumbar spine w/o contrast material Gabriela Linda MD Work Phone: Start: 02-20-2023 INFLUENZA VACCINE, PRSV FREE, AGE 65+ YR, HIGH DOSE, QUADRIVALENT (FLUZONE HIGH-DOSE) Gabriela Linda MD Work Phone: Start: 02-07-2023 Mri spinal canal lumbar w/o contrast material Gabriela Linda MD Work Phone: Start: 01-21-2023 CT of head without contrast Dr. Talat Linda Work Phone: Start: 01-18-2023 Radex spine lumbosacral 2/3 views Fermin Linda MD Work Phone: Start: 01-08-2023 Radex hip unilateral with pelvis 2-3 views Gabriela Linda MD Work Phone: Start: 12-12-2022 Mammography Mammography Coordinator Start: 11-07-2022 Cardiovascular stress test using pharmacologic stress agent Dr. Dot Garces Work Phone: Start: 10-23-2022 Plain chest X-ray Dr. Dot Garces Work Phone: Start: 02-28-2022 Plain chest X-ray Dr. Dot Garces Work Phone: Start: 02-09-2022 Adult depression screening assessment Ban Lynn APRN.CNP Work Phone: Start: 12-29-[address] Carlos corcoran Work Phone: Start: 12-03-2021 CT cervical spine without contrast Dr. Carlos Clarke Work Phone: Start: 12-03-2021 CT of chest without contrast Dr. Carlos esparza Work Phone: Start: 12-03-2021 CT of head without contrast Dr. Carlos whitney Work Phone: Start: 10-23-2021 Plain chest X-ray Start: 12-23-2020 Adult depression screening assessment Jania Watts APRN.[employer] Work Phone: Start: 09-01-2019 Cholecystectomy Carlos Clarke Work Phone: Start: 07-29-2019 Colonoscopy Jania Watts GUIDE DOG TRAINER.[employer] Work Phone: Start: 07-29-2019 Colonoscopy Carlos Clarke Work Phone: Start: 07-23-2019 12 lead ECG Masood Alonzo Daniel Work Phone: Start: 07-10-2019 Hemoglobin glycosylated a1c Janel stanley Start: 08-29-2017 History of placement of stent for coronary artery disease History of coronary artery stent placement Start: 08-17-2016 History of coronary artery bypass grafting S/P CABG x 3 Provider System Start: 03-06-2016 Ophthalmic examination and evaluation Blake Street DO Work Phone: Start: 02-08-2006 History of coronary artery bypass grafting Postsurgical aortocoronary bypass status Jania Watts GUIDE DOG TRAINER.[employer] Work Phone: Start: 10-15-2001 History of coronary artery bypass grafting H/O coronary artery bypass surgery Comment on above: CABG x 3: YATES-LAD, RA-OM1, Sequential S VG-RPDA and RPLVB 10/2001 Start: 06-17-2001 History of coronary artery bypass grafting S/P CABG x 4 Gabriela Linda MD Work Phone: Cardiac catheterization Rosalia Serrano Cataract surgery [facility] Colonic polypectomy Colonoscopy Coronary artery bypass graft Excisional biopsy of breast History of cholecystectomy Statu s post laparoscopic cholecystectomy Carlos Clarke Work Phone: History of coronary artery bypass grafting S/P CABG x 4 Gabriela Linda MD Work Phone: History of coronary artery bypass grafting History of coronary artery bypass surgery Chris Licona MD Work Phone: History of coronary artery bypass grafting History of coronary artery bypass surgery Radhika Bustamante GUIDE DOG 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: History of coronary artery bypass grafting S/P CABG x 4 Gabriela Linda MD Work Phone: History of coronary artery bypass grafting S/P CABG x 4 Anay Podlogar GUIDE DOG TRAINER.[employer] Work Phone: History of coronary artery bypass grafting S/P CABG x 4 Anay Podlogar GUIDE DOG TRAINER.[employer] Work Phone: History of coronary artery bypass grafting S/P CABG x 4 Anay Podlogar GUIDE DOG TRAINER.[employer] Work Phone: History of coronary artery bypass grafting S/P CABG x 4 Gabriela Linda MD Work Phone: History of coronary artery bypass grafting S/P CABG x 4 Gabriela Linda MD Work Phone: Hysterectomy SARS-CoV-2 & FLU Antigen (Rapid) Dr. Dot Garces Work Phone: Tonsillectomy and adenoidectomy Plan of Treatment Date Care Activity Detail Author Start: 01-25-2026 Annual PCP Team Chucking Lathe Operator roge Disease Visit Annual PCP Team Chronic Disease Visit [facility] Start: 01-22-2026 Creatinine measurement Serum Creatin ine [facility] Start: 01-12-2026 End: 01-12-2026 Patient encounter procedure 01/12/2026 9:00 AM EDT Appointment Radiology [address] [place] [address] Dx: Left renal mass [N28.89] Radiology Comment on above: Dx: Left renal mass [N28.89] Start: 12-23-2025 Screening for malign ant neoplasm of breast Mammogram Screening [facility] Start: 12-15-2025 Annual PCP Team Chucking Lathe Operator roge Disease Visit Annual PCP Team Chronic Disease Visit [facility] Start: 11-12-2025 Annual PCP Team Chucking Lathe Operator roge Disease Visit Annual PCP Team Chronic Disease Visit [facility] Start: 11-12-2025 BP Controlled (<130/80) BP Con trolled (<130/80) [facility] Start: 10-07-2025 Annual PCP Team Chucking Lathe Operator roge Disease Visit Annual PCP Team Chronic Disease Visit [facility] Start: 10-07-2025 BP Controlled (<130/80) BP Con trolled (<130/80) [facility] Start: 10-07-2025 Complete blood count Hemoglobin/Marbin tocrit [facility] Start: 10-07-2025 Creatinine measurement Serum Creatin ine [facility] Start: 08-20-2025 Annual PCP Team Chucking Lathe Operator roge Disease Visit Annual PCP Team Chronic Disease Visit [facility] Start: 08-05-2025 Annual PCP Team Chucking Lathe Operator roge Disease Visit Annual PCP Team Chronic Disease Visit [facility] Start: 08-05-2025 BP Controlled (<130/80) BP Con trolled (<130/80) [facility] Start: 06-03-2025 Annual PCP Team Chucking Lathe Operator roge Disease Visit Annual PCP Team Chronic Disease Visit [facility] Start: 05-27-2025 Annual PCP Team Chucking Lathe Operator roge Disease Visit Annual PCP Team Chronic Disease Visit [facility] Start: 05-27-2025 BP Controlled (<130/80) BP Con trolled (<130/80) [facility] Start: 05-13-2025 Creatinine measurement Serum Creatin ine [facility] Start: 05-13-2025 Hepatitis B screening Urine Albumin:Creatinine Ratio [facility] Start: 05-13-2025 Hepatitis B surface antibody level LDL Cholesterol [facility] Start: 05-06-2025 Annual PCP Team Chucking Lathe Operator roge Disease Visit Annual PCP Team Chronic Disease Visit [facility] Start: 05-06-2025 Covid-19 Vaccine () Covid-19 Vaccine () [facility] Comment on above: Postponed from 02/15 (Declined at this time) Start: 05-06-2025 Diabetic foot examination Diabetic Foot Exam [facility] Start: 04-24-2025 Hemoglobin A1c measurement HbA1C [facility] Start: 04-08-2025 Annual PCP Team Chucking Lathe Operator roge Disease Visit Annual PCP Team Chronic Disease Visit [facility] Start: 04-08-2025 BP Controlled (<130/80) BP Con trolled (<130/80) [facility] Start: 03-11-2025 Annual PCP Team Chucking Lathe Operator roge Disease Visit Annual PCP Team Chronic Disease Visit [facility] Start: 03-11-2025 BP Controlled (<130/80) BP Con trolled (<130/80) [facility] Start: 02-24-2025 Annual PCP Team Chucking Lathe Operator roge Disease Visit Annual PCP Team Chronic Disease Visit [facility] Start: 02-24-2025 BP Controlled (<130/80) BP Con trolled (<130/80) [facility] Start: 02-22-2025 End: 02-22-2025 Patient encounter procedure 02/22/2025 11:00 AM EDT Office Visit [facility] [place] [address] [place], [place] [id number] Eyad Victoria APRN.[employer] [address] [place], [place] [phone] 4 week follow up [facility] Comment on above: 4 week follow up Start: 02-18-2025 Annual PCP Team Chucking Lathe Operator roge Disease Visit Annual PCP Team Chronic Disease Visit [facility] Start: 02-18-2025 Complete blood count Hemoglobin/Marbin tocrit [facility] Start: 02-16-2025 BP Controlled (<130/80) BP Con trolled (<130/80) [facility] Start: 02-15-2025 Influenza vaccination Influenza Vacc ine (#1) [facility] Start: 02-03-2025 End: 02-03-2025 Patient encounter procedure 02/03/2025 10:40 AM EDT Office Visit [facility] [place] [address] [place], [place] [id number] Anay Lawrence APRN.[employer] [address] [place], [place] [id number] 6 month follow up [facility] [place] Comment on above: 6 month follow up Start: 02-02-2025 End: 05-04-2025 CBC W Auto Differential panel - Blood COMPLETE BLOOD COUNT AND DIFFERENTIAL Lab Routine Controlled type 2 diabetes mellitus without complication, without long-term current use of insulin (HCC) Expected: 02/02/2025, Expires: 05/04/2025 [facility] Comment on above: Expected: 02/02/2025 , Expires: 05/04/2025 Start: 02-02-2025 End: 05-04-2025 Comprehensive metabolic 2000 panel - Serum or Plasma COMPREHENSIVE METABOLIC PANEL Lab Routine Mixed hyperlipidemia Essential hypertension Expected: 02/02/2025, Expires: 05/04/2025 [facility] Comment on above: Expected: 02/02/2025 , Expires: 05/04/2025 Start: 02-02-2025 End: 05-04-2025 Hemoglobin A1c in Blood HEMOGLOBIN A1C Lab Routine Controlled type 2 diabetes mellitus without complication, without long-term current use of insulin ([facility]) Expected: 02/02/2025, Expires: 05/04/2025 [facility] Work Phone: Comment on above: Expected: 02/02/2025 , Expires: 05/04/2025 Start: 02-02-2025 Hemoglobin A1c measurement HbA1C [facility] Start: 02-02-2025 End: 05-04-2025 Lipid 1996 panel - Serum or Plasma LIPID PANEL BASIC Lab Routine Mixed hyperlipidemia Expected: 02/02/2025, Expires: 05/04/2025 [facility] Comment on above: Expected: 02/02/2025 , Expires: 05/04/2025 Start: 02-02-2025 End: 02-02-2025 ambulatory 02/02/2025 9:00 AM EDT Results Only [facility] Draw Station [address] [facility] [place] [address] [facility] Start: 01-27-2025 End: 01-27-2025 ambulatory 01/27/2025 10:45 AM EDT OT/PT/Speech Visit [facility] [address] [place] [address] Traci Jean, OTR/L [address] [place] [address] Relieve pain [facility] Comment on above: Relieve pain Start: 01-26-2025 End: 01-26-2025 Patient encounter procedure 01/26/2025 3:30 PM EDT Office Visit Vasculary Surgery [address] [place] [address] Dizziness [R42] [facility] Comment on above: Dizziness [R42] Start: 01-25-2025 End: 01-25-2025 Patient encounter procedure 01/25/2025 1:00 PM EDT Office Visit Family [facility] [address] [place] [address] Eyad Victoria APRN.[facility] [address] [place], [place] [phone] 01/21 [facility] ER Follow Up anxiety--rescheduled. [facility] [place] Comment on above: 01/21 [facility] ER Follow Up anxiety--rescheduled. Start: 01-22-2025 End: 01-22-2025 Patient encounter procedure 01/22/2025 2:00 PM EDT Appointment Cat Scan [address] [place] [address] Dizziness [R42] Cat Scan Comment on above: Dizziness [R42] Start: 01-22-2025 End: 01-22-2025 ambulatory 01/22/2025 1:30 PM EDT Results Only [facility] [address] [place] [address] STAT creatinine for CTA [facility] Comment on above: STAT creatinine for CTA Start: 01-21-2025 [facility] Start: 01-21-2025 Consultation [facility] Start: 01-06-2025 End: 01-06-2025 Patient encounter procedure Radiology Comment on above: Gross hematuria [R31 .0] Dizziness [R42]; Hea dache, unspecified headache type [R51.9]; Visual changes [H53.9]; Falls frequently [R29.6] Start: 01-06-2025 End: 01-06-2025 ambulatory 01/06/2025 9:00 AM EDT OT/PT/Speech Visit [facility] [address] [place] [address] Sydni Leger PT Falls frequently [R29.6] [facility] Comment on above: Falls frequently [R2 9.6] Start: 12-30-2024 End: 12-30-2024 ambulatory 12/30/2024 10:45 AM EDT OT/PT/Speech Visit [facility] [address] [place], [place] [phone] Traci Jean OTR/L [address] [place] [address] Fingers locking [facility] Comment on above: Fingers locking Start: 12-23-2024 End: 12-23-2024 Patient encounter procedure 12/23/2024 9:10 AM EDT Appointment Mammogram [address] [place] [address] Screening mammogram for breast cancer [Z12.31] Mammogram Comment on above: Screening mammogram for breast cancer [Z12.31] Start: 12-17-2024 Screening for malign ant neoplasm of breast Mammogram Screening [facility] Start: 12-16-2024 Evaluation of diagno stic study results [facility] Start: 12-09-2024 End: 03-10-2025 SHUN BY IFA WITH REFLEX [facility] Work Phone: Comment on above: Expected: 12/09/2024 , Expires: 03/10/2025 Start: 12-09-2024 End: 03-10-2025 Cyclic citrullinated peptide IgG Ab [Units/volume] in Serum or Plasma [facility] Comment on above: Expected: 12/09/2024 , Expires: 03/10/2025 Start: 12-09-2024 End: 03-10-2025 Extractable nuclear Ab panel - Serum [facility] Comment on above: Expected: 12/09/2024 , Expires: 03/10/2025 Start: 12-09-2024 End: 03-10-2025 Protein/Creatinine [Mass Ratio] in Urine [facility] Comment on above: Expected: 12/09/2024 , Expires: 03/10/2025 Start: 12-09-2024 End: 12-09-2024 Patient encounter procedure 12/09/2024 11:00 AM EDT Office Visit Rheumatology [address] [address] Carmencita Caldera MD [address] [place] [address] Positive SHUN (antinuclear antibody) [R76.8] Myalgias [M79.10] Rheumatology Comment on above: Positive SHUN (antinu clear antibody) [R76.8] Myalgias [M79.10] Start: 11-13-2024 Glaucoma screening Dilated Retinal E xam [facility] Start: 11-11-2024 Screening for malign ant neoplasm of colon [facility] Start: 11-03-2024 [facility] Start: 11-03-2024 [facility] Start: 10-29-2024 Annual PCP Team Chucking Lathe Operator roge Disease Visit Annual PCP Team Chronic Disease Visit [facility] Start: 10-29-2024 BP Controlled (<130/80) BP Con trolled (<130/80) [facility] Start: 10-29-2024 Complete blood count Hemoglobin/Marbin tocrit [facility] Start: 10-29-2024 Creatinine measurement Serum Creatin ine [facility] Start: 10-07-2024 End: 01-06-2025 Nuclear Ab [Presence] in Serum by Immunoassay [facility] Work Phone: Comment on above: Expected: 10/07/2024 , Expires: 01/06/2025 Start: 10-06-2024 Annual PCP Team Chucking Lathe Operator roge Disease Visit Annual PCP Team Chronic Disease Visit [facility] Start: 10-06-2024 BP Controlled (<130/80) BP Con trolled (<130/80) [facility] Start: 09-24-2024 End: 09-24-2024 Patient encounter procedure 09/24/2024 1:45 PM EDT Office Visit [facility] [address] [place] [address] PreBaylee matson, GUIDE DOG TRAINER.[employer] AMB[employer] [address] [place] [address] ILII L3-[address] [facility] Comment on above: ILII L3-4 follow up Start: 09-17-2024 End: 09-17-2024 Patient encounter procedure 09/17/2024 2:15 PM EDT Office [facility] [facility] [address] [place] [address] Prehuyen, Baylee, GUIDE DOG TRAINER.NUTRITION CLUB AMBASSADOR [address] [place] [address] ILII L3-[address] [facility] Comment on above: ILII L3-4 follow up Start: 08-24-2024 End: 08-24-2024 ambulatory [facility] [place] Comment on above: ILESI L3-4 AUTH GOOD CAD ( - 11/14/24) Epidural Steroid Injection - Interlaminar Approach (ILESI) under fluoroscopic guidance NONE at L3-4; Plavix - okay to hold for 7 days Start: 08-13-2024 Hemoglobin A1c measurement HbA1C [facility] Start: 08-05-2024 End: 08-05-2024 Patient encounter procedure [facility] [place] Comment on above: 3 month follow up DM follow up Start: 07-31-2024 Annual PCP Team Chucking Lathe Operator roge Disease Visit Annual PCP Team Chronic Disease Visit [facility] Start: 07-15-2024 End: 07-15-2024 Follow-up encounter 07/15/2024 11:[address] [facility] Neurology [address] [place] [address] Rita Delgado MD [address] [place] [address] follow up on restless leg Neurology Comment on above: follow up on restles s leg Start: 07-02-2024 End: 07-02-2024 Patient encounter procedure 07/02/2024 1:00 PM EST Office Visit [facility] [address] [place] [address] Baylee Colin APRN.NUTRITION CLUB AMBASSADOR [address] [place] [address] NEW PATIENT - LOWER BACK, SCIATICA DOWN L SIDE, KNEE PAIN R (DRZ) [facility] Comment on above: NEW PATIENT - LOWER BACK, SCIATICA DOWN L SIDE, KNEE PAIN R (DRZ) Start: 06-26-2024 End: 06-26-2024 Patient encounter procedure 06/26/2024 11:15 AM EST Office Visit Podiatry [address] [place] [address] Justice Bateman [address] [address] Pain of left heel [M79.672] Podiatry Comment on above: Pain of left heel [M 79.672] Start: 06-17-2024 Advance Directive Discussion Advance Directive Discussion [facility] Start: 06-17-2024 Medicare Advantage Annual Wellness Visit Medicare Advantage Annual Wellness Visit [facility] Start: 06-03-2024 End: 06-03-2024 Patient encounter procedure 06/03/2024 2:00 PM EST Office Visit OB/Gynecology [address] [place] [address] Mervin Munoz APRN.CNM [address] [place] [address] Vaginal itching [N89.8] OB/Gynecology Comment on above: Vaginal itching [N89 .8] Start: 05-28-2024 Annual PCP Team Chucking Lathe Operator roge Disease Visit Annual PCP Team Chronic Disease Visit [facility] Start: 05-28-2024 BP Controlled (<130/80) BP Con trolled (<130/80) [facility] Start: 05-27-2024 End: 05-27-2024 Patient encounter procedure 05/27/2024 1:40 PM EST Office Visit [facility] [place] [address] [place] [address] PodlogarAnay APRN.NUTRITION CLUB AMBASSADOR [address] [place] [address] left foot [facility] [place] Comment on above: left foot Start: 05-08-2024 End: 05-08-2024 ambulatory 05/08/2024 12:30 PM EST Results Only [place] [facility] Draw Station [address] [place] [address] [facility] Draw Station Start: 05-07-2024 Annual PCP Team Chucking Lathe Operator roge Disease Visit Annual PCP Team Chronic Disease Visit [facility] Start: 05-07-2024 BP Controlled (<130/80) BP Con trolled (<130/80) [facility] Start: 05-06-2024 End: 08-05-2024 Comprehensive metabolic 2000 panel - Serum or Plasma COMPREHENSIVE METABOLIC PANEL Lab Routine Essential hypertension Mixed hyperlipidemia Expected: 05/06/2024, Expires: 08/05/2024 [facility] Comment on above: Expected: 05/06/2024 , Expires: 08/05/2024 Start: 05-06-2024 End: 08-05-2024 Hemoglobin A1c in Blood HEMOGLOBIN A1C Lab Routine Type 2 diabetes mellitus without retinopathy (HCC) Expected: 05/06/2024, Expires: 08/05/2024 [facility] Work Phone: Comment on above: Expected: 05/06/2024 , Expires: 08/05/2024 Start: 05-06-2024 End: 08-05-2024 Lipid 1996 panel - Serum or Plasma LIPID PANEL BASIC Lab Routine Mixed hyperlipidemia Expected: 05/06/2024, Expires: 08/05/2024 [facility] Comment on above: Expected: 05/06/2024 , Expires: 08/05/2024 Start: 05-06-2024 End: 08-05-2024 Microalbumin/Creatinine [Mass Ratio] in Urine ALBUMIN/CREATININE RATIO, URINE Lab Routine Type 2 diabetes mellitus without retinopathy (HCC) Expected: 05/06/2024, Expires: 08/05/2024 [facility] Comment on above: Expected: 05/06/2024 , Expires: 08/05/2024 Start: 05-06-2024 End: 05-06-2024 Patient encounter procedure 05/06/2024 11:20 AM EST Office Visit Family Medicine [place] [address] [place] [address] Anay Lawrence APRN.NUTRITION CLUB AMBASSADOR [address] [place] [address] 6 month follow up [facility] Comment on above: 6 month follow up Start: 05-01-2024 Hemoglobin A1c measurement HbA1C [facility] Start: 04-30-2024 Hemoglobin A1c measurement Diabetes: Hemoglobin A1C [facility] Start: 04-30-2024 Hepatitis B surface antibody level LDL Cholesterol [facility] Start: 04-30-2024 Lipid panel Lipid Panel [facility] Start: 04-23-2024 End: 04-23-2024 Patient encounter procedure 04/23/2024 2:00 PM EST Office Visit [facility] [address] [place] [address] Baylee Colin APRN.NUTRITION CLUB AMBASSADOR [address] [place] [address] NEW PATIENT - LOWER BACK, SCIATICA DOWN L SIDE, KNEE PAIN R (DRAdam) [facility] Comment on above: NEW PATIENT - LOWER BACK, SCIATICA DOWN L SIDE, KNEE PAIN R (DRZ) Start: 04-22-2024 End: 04-22-2024 ambulatory 04/22/2024 11:20 AM EST [facility] Neurology [address] [place] [address] Rita Delgado MD [address] [place] [address] LADAN (obstructive sleep apnea) Neurology Comment on above: LADAN (obstructive sle ep apnea) Start: 04-10-2024 Annual PCP Team Chucking Lathe Operator roge Disease Visit Annual PCP Team Chronic Disease Visit [facility] Start: 04-10-2024 BP Controlled (<130/80) BP Con trolled (<130/80) [facility] Start: 04-10-2024 Covid-19 Vaccine () Covid-19 Vaccine () [facility] Comment on above: Postponed from 02/15 (Declined at this time) Start: 04-10-2024 Hepatitis B Vaccine (1 of 3 - Risk 3-dose series) Hepatitis B Vaccine (1 of 3 - Risk 3-dose series) [facility] Comment on above: Postponed from 03/07 (Declined at this time) Start: 04-10-2024 Hepatitis C Screening Hepatitis C [facility] Comment on above: Postponed from 03/07 (Declined at this time) Start: 04-10-2024 Hepatitis C screening Hepatitis C [facility] Comment on above: Postponed from 03/07 (Declined at this time) Start: 04-10-2024 RSV Vaccine (1 - 1-d ose 60+ series) RSV Vaccine (1 - 1-dose 60+ series) [facility] Comment on above: Postponed from 03/07 (Declined at this time) Start: 04-03-2024 Hepatitis B surface antibody level LDL Cholesterol [facility] Start: 03-11-2024 End: 03-11-2024 Patient encounter procedure 03/11/2024 2:40 PM EDT Office Visit [facility] [place] [address] [place], [place] [id number] PodlogarAnay APRN.NUTRITION CLUB AMBASSADOR [address] [place], [place] [id number] Vaginal itching f/u speculum exam. See TE 03/09/24. [facility] [place] Comment on above: Vaginal itching f/u speculum exam. See TE 03/09/24. Start: 02-25-2024 End: 02-25-2024 Patient encounter procedure 02/25/2024 1:40 PM EDT Office Visit [facility] [place] [address] [place] [address] PodlogarAnay APRN.NUTRITION CLUB AMBASSADOR [address] [place] [address] Rash to right lower back- see triage note [facility] [place] Comment on above: Rash to right lower back- see triage note Start: 02-21-2024 3 comp foot exam completed DIABETIC FOOT EXAM [facility] Start: 02-21-2024 ANNUAL PCP TEAM SALES REPRESENTATIVE EDUCATION COURSES ROGE DISEASE VISIT ANNUAL PCP TEAM CHRONIC DISEASE VISIT [facility] Start: 02-21-2024 Diabetic foot examination Diabetic Foot Exam [facility] Start: 02-19-2024 End: 02-19-2024 ambulatory 02/19/2024 11:00 AM EDT Results Only [facility] Draw Station [address] [place] [address] [facility] Draw Station Start: 02-16-2024 Covid-19 Vaccine ( season) Covid-19 Vaccine ( season) [facility] Start: 02-16-2024 Covid-19 Vaccine ( season) Covid-19 Vaccine ( season) [facility] Start: 02-16-2024 Influenza vaccination Influenza Vacc ine (#1) [facility] Start: 02-14-2024 BP CONTROLLED (<130/80) BP CON TROLLED (<130/80) [facility] Start: 02-13-2024 End: 02-13-2024 ambulatory 02/13/2024 3:45 PM EDT Results Only [place] [facility] Draw Station [address] [place] [address] [facility] Draw Station Start: 02-13-2024 End: 05-14-2024 CBC panel - Blood by Automated count COMPLETE BLOOD COUNT Lab Routine Normocytic anemia Expected: 02/13/2024, Expires: 05/14/2024 [facility] Work Phone: Comment on above: Expected: 02/13/2024 , Expires: 05/14/2024 Start: 02-12-2024 End: 05-13-2024 Ferritin [Mass/volume] in Serum or Plasma FERRITIN Lab Routine Restless legs syndrome (RLS) Expected: 02/12/2024, Expires: 05/13/2024 [facility] Work Phone: Comment on above: Expected: 02/12/2024 , Expires: 05/13/2024 Start: 02-12-2024 End: 05-13-2024 Iron and Iron binding capacity panel - Serum or Plasma IRON AND TIBC Lab Routine Restless legs syndrome (RLS) Expected: 02/12/2024, Expires: 05/13/2024 [facility] Comment on above: Expected: 02/12/2024 , Expires: 05/13/2024 Start: 02-12-2024 End: 02-12-2024 amb[facility] [address] [place] [address] Rita Delgado MD [address] [facility] [address] [place] [address] f/u Neurology Comment on above: f/u Start: 01-30-2024 ANNUAL PCP TEAM SALES REPRESENTATIVE EDUCATION COURSES ROGE DISEASE VISIT ANNUAL PCP TEAM CHRONIC DISEASE VISIT [facility] Start: 01-30-2024 BP CONTROLLED (<130/80) BP CON TROLLED (<130/80) [facility] Start: 01-22-2024 ANNUAL PCP TEAM SALES REPRESENTATIVE EDUCATION COURSES ROGE DISEASE VISIT ANNUAL PCP TEAM CHRONIC DISEASE VISIT [facility] Start: 01-22-2024 BP CONTROLLED (<130/80) BP CON TROLLED (<130/80) [facility] Start: 01-09-2024 ANNUAL PCP TEAM SALES REPRESENTATIVE EDUCATION COURSES ROGE DISEASE VISIT ANNUAL PCP TEAM CHRONIC DISEASE VISIT [facility] Start: 01-09-2024 BP CONTROLLED (<130/80) BP CON TROLLED (<130/80) [facility] Start: 01-09-2024 Hepatitis B surface antibody level LDL CHOLESTEROL [facility] Start: 01-02-2024 End: 01-02-2024 Patient encounter procedure 01/02/2024 2:00 PM EDT Office Visit [facility] [address] [place] [address] Baylee Colin APRN.NUTRITION CLUB AMBASSADOR [address] [place] [address] NEW PATIENT - LOWER BACK, SCIATICA DOWN L SIDE, KNEE PAIN R (LINDA) [facility] Comment on above: NEW PATIENT - LOWER BACK, SCIATICA DOWN L SIDE, KNEE PAIN R (DRAdam) Start: 12-25-2023 End: 12-25-2023 Follow-up encounter 12/25/2023 12:00 PM EDT [facility] Neurology [address] [place] [address] Randall Silva GUIDE DOG TRAINER.NUTRITION CLUB AMBASSADOR [address] [place] [address] 4 month follow up Neurology Comment on above: 4 month follow up Start: 12-18-2023 End: 12-18-2023 Patient encounter procedure 12/18/2023 10:10 AM EDT Appointment Mammogram [address] [place] [address] Encounter for screening mammogram for breast cancer [Z12.31] Mammogram Comment on above: Encounter for screen ing mammogram for breast cancer [Z12.31] Start: 12-13-2023 Mammography [facility] Start: 12-13-2023 Screening for malign ant neoplasm of breast Mammogram Screening [facility] Start: 12-04-2023 ANNUAL PCP TEAM SALES REPRESENTATIVE EDUCATION COURSES ROGE DISEASE VISIT ANNUAL PCP TEAM CHRONIC DISEASE VISIT [facility] Start: 12-04-2023 BP CONTROLLED (<130/80) BP CON TROLLED (<130/80) [facility] Start: 12-04-2023 COLORECTAL CANCER SCREENING COLORECTAL CANCER SCREENING [facility] Comment on above: Postponed from 03/07 (Declined at this time) Start: 12-04-2023 COVID-19 VACCINE (3 - Booster for Pfizer series) COVID-19 VACCINE (3 - Booster for Pfizer series) [facility] Comment on above: Postponed from 02/06 (Declined at this time) Start: 12-04-2023 COVID-19 VACCINE (3 - Pfizer series) COVID-19 VACCINE (3 - Pfizer series) [facility] Comment on above: Postponed from 02/06 (Declined at this time) Start: 12-04-2023 Screening for malign ant neoplasm of colon Colorectal Cancer Screening [facility] Comment on above: Postponed from 03/07 (Declined at this time) Start: 12-04-2023 SHINGRIX VACCINE (1 of 2) SHINGRIX VACCINE (1 of 2) [facility] Comment on above: Postponed from 03/07 (Declined at this time) Start: 12-04-2023 Urine microalbumin profile [facility] Comment on above: Postponed from 03/17 (Declined at this time) Start: 11-20-2023 End: 11-20-2023 Patient encounter procedure 11/20/2023 9:00 AM EDT Office Visit [facility] [place] [address] [address] Baylee Colin APRN.NUTRITION CLUB AMBASSADOR [address] [place] [address] new pt back pain [facility] [place] Comment on above: new pt back pain Start: 10-30-2023 End: 10-30-2023 Patient encounter procedure 10/30/2023 10:40 AM EDT Office Visit [facility] [place] [address] [place] [address] Anay Lawrence APRN.NUTRITION CLUB AMBASSADOR [address] [place] [address] 3 mo follow up [facility] [place] Comment on above: 3 mo follow up Start: 10-29-2023 Hemoglobin A1c measurement HbA1C [facility] Start: 10-29-2023 Hemoglobin A1c/Hemoglobin.total in Blood HbA1C [facility] Start: 10-03-2023 Hemoglobin A1c/Hemoglobin.total in Blood HbA1C [facility] Start: 09-15-2023 Pneumococcal Vaccine : 65+ (3 - PPSV23 or PCV20) Pneumococcal Vaccine: 65+ (3 - PPSV23 or PCV20) [facility] Start: 09-15-2023 Pneumococcal Vaccine : 65+ (3 of 3 - PPSV23 or PCV20) Pneumococcal Vaccine: 65+ (3 of 3 - PPSV23 or PCV20) [facility] Start: 09-15-2023 Pneumococcal Vaccine : 65+ Years (3 - PPSV23 or PCV20) Pneumococcal Vaccine: 65+ Years (3 - PPSV23 or PCV20) [facility] Start: 09-15-2023 PNEUMOCOCCAL: 65+ (3 - PPSV23 if available, else PCV20) PNEUMOCOCCAL: 65+ (3 - PPSV23 if available, else PCV20) [facility] Start: 09-15-2023 PNEUMOCOCCAL: 65+ (3 - PPSV23 or PCV20) PNEUMOCOCCAL: 65+ (3 - PPSV23 or PCV20) [facility] Start: 08-14-2023 End: 11-13-2023 Comprehensive metabolic 2000 panel - Serum or Plasma COMP METABOLIC PANEL Lab Routine CA (acute kidney injury) (HCC) Expected: 08/14/2023, Expires: 11/13/2023 [facility] Work Phone: Comment on above: Expected: 08/14/2023 , Expires: 11/13/2023 Start: 06-27-2023 Patient discharge [facility] Start: 06-27-2023 [facility] Start: 06-26-2023 Referral to gastroenterology service [facility] Start: 06-26-2023 Egd transoral biopsy single/multiple EGD BIOPSY SINGLE/MULTIPLE [facility] Start: 06-26-2023 Following clinical pathway protocol [facility] Start: 06-26-2023 Assessment of risk o f venous thromboembolism [facility] Start: 06-26-2023 Care regimes management [facility] Start: 06-26-2023 Insertion of cathete r into peripheral vein [facility] Start: 06-26-2023 Notification of physician [facility] Start: 06-26-2023 Oxygen therapy [facility] Start: 06-26-2023 Providing care accor ding to standard [facility] Start: 06-26-2023 Provision of activit y privileges [facility] Start: 06-26-2023 Referral to occupati onal therapist [facility] Start: 06-26-2023 Referral to service [facility] Start: 06-26-2023 [facility] Start: 06-26-2023 Admission procedure [facility] Start: 06-25-2023 End: 06-26-2023 [facility] Start: 06-25-2023 Bacteria identified in Urine by Culture [facility] Start: 06-21-2023 Patient referral [facility] Work Phone: Start: 06-17-2023 Advance Directive Discussion Advance Directive Discussion [facility] Start: 06-17-2023 Behavioral Health Screening Behavioral Health Screening [facility] Start: 06-17-2023 Depression Assessment Depression Ass essment [facility] Start: 05-18-2023 [facility] Start: 05-18-2023 [facility] Start: 05-16-2023 End: 07-16-2023 Ferritin [Mass/volume] in Serum or Plasma FERRITIN BLD Lab Routine RLS (restless legs syndrome) Expected: 05/16/2023, Expires: 07/16/2023 [facility] Work Phone: Comment on above: Expected: 05/16/2023 , Expires: 07/16/2023 Start: 05-16-2023 End: 07-16-2023 Iron and Iron binding capacity panel - Serum or Plasma IRON + TIBC Lab Routine RLS (restless legs syndrome) Expected: 05/16/2023, Expires: 07/16/2023 [facility] Work Phone: Comment on above: Expected: 05/16/2023 , Expires: 07/16/2023 Start: 05-14-2023 Patient referral [facility] Work Phone: Start: 05-06-2023 End: 05-06-2024 Basic metabolic 1998 panel - Serum or Plasma Basic metabolic panel Lab Routine Coronary artery disease involving [place] coronary artery of [place] heart without angina pectoris Expected: 05/06/2023 (Approximate), Expires: 05/06/2024 [facility] Comment on above: Expected: 05/06/2023 (Approximate), Expires: 05/06/2024 Start: 05-06-2023 End: 05-06-2024 CBC W Auto Differential panel - Blood CBC auto differential Lab Routine Coronary artery disease involving [place] coronary artery of [place] heart without angina pectoris Expected: 05/06/2023 (Approximate), Expires: 05/06/2024 [facility] Work Phone: Comment on above: Expected: 05/06/2023 (Approximate), Expires: 05/06/2024 Start: 05-06-2023 End: 05-06-2023 Patient encounter procedure 05/06/2023 11:00 AM EST Office Visit [facility] Cardiology [address] [place] [address] Radhika Bustamante, GUIDE DOG TRAINER - NUTRITION CLUB AMBASSADOR [address] [place] [address] [facility] Start: 05-01-2023 Blood chemistry [facility] Start: 04-29-2023 Patient discharge [facility] Start: 04-29-2023 End: 04-29-2023 [facility] Start: 04-29-2023 Notification of physician [facility] Start: 04-29-2023 Patient education [facility] Start: 04-29-2023 Provision of activit y privileges [facility] Start: 04-29-2023 Pulse taking [facility] Start: 04-29-2023 Taking patient vital signs [facility] Start: 04-29-2023 Wound care [facility] Start: 04-28-2023 [facility] Start: 04-27-2023 Oxygen therapy [facility] Start: 04-27-2023 Ambulation without limitation [facility] Start: 04-27-2023 Assessment of risk o f venous thromboembolism [facility] Start: 04-27-2023 Care regimes management [facility] Start: 04-27-2023 Insertion of cathete r into peripheral vein [facility] Start: 04-27-2023 Measuring intake and output [facility] Start: 04-27-2023 Notification of physician [facility] Start: 04-27-2023 Providing care accor ding to standard [facility] Start: 04-27-2023 Referral to business lawyer [facility] Start: 04-27-2023 [facility] Start: 04-27-2023 Admission procedure [facility] Start: 04-27-2023 Hospital admission, emergency, from emergency room, medical nature [facility] Start: 04-10-2023 Hemoglobin A1c/Hemoglobin.total in Blood HBA1C [facility] Start: 03-22-2023 End: 05-22-2023 Comprehensive metabolic 2000 panel - Serum or Plasma COMP METABOLIC PANEL Lab Routine Type 2 diabetes mellitus without retinopathy (HCC) Expected: 03/22/2023, Expires: 05/22/2023 [facility] Work Phone: Comment on above: Expected: 03/22/2023 , Expires: 05/22/2023 Start: 03-22-2023 End: 05-22-2023 Hemoglobin A1c in Blood HGB A1C Lab Routine Type 2 diabetes mellitus without retinopathy (HCC) Expected: 03/22/2023, Expires: 05/22/2023 [facility] Work Phone: Comment on above: Expected: 03/22/2023 , Expires: 05/22/2023 Start: 03-22-2023 End: 05-22-2023 LIPID PANEL, NONFASTING LIPID PANEL, NONFASTING Lab Routine Type 2 diabetes mellitus without retinopathy (HCC) Expected: 03/22/2023, Expires: 05/22/2023 [facility] Work Phone: Comment on above: Expected: 03/22/2023 , Expires: 05/22/2023 Start: 02-15-2023 Covid-19 Vaccine () Covid-19 Vaccine () [facility] Start: 02-15-2023 Influenza vaccination [facility] Start: 02-09-2023 Adult depression screening assessment DEPRESSION SCREENING [facility] Start: 01-21-2023 [facility] Start: 01-21-2023 Simple repair f/e/e/n/l/m 2.5cm/< RPR F/E/E/N/L/M 2.5 CM/< [facility] Start: 01-21-2023 Simple repair scalp/neck/ax/genit/trun k 2.5cm/< RPR S/N/AX/GEN/TRNK 2.5CM/< [facility] Start: 01-02-2023 End: 03-04-2023 ALBUMIN/CREAT RATIO RND UR ALBUMIN/CREAT RATIO RND UR Lab Routine Type 2 diabetes mellitus without retinopathy (HCC) Expected: 01/02/2023, Expires: 03/04/2023 [facility] Work Phone: Comment on above: Expected: 01/02/2023 , Expires: 03/04/2023 Start: 01-02-2023 End: 03-04-2023 Comprehensive metabolic 2000 panel - Serum or Plasma COMP METABOLIC PANEL Lab Routine Type 2 diabetes mellitus without retinopathy (HCC) Expected: 01/02/2023, Expires: 03/04/2023 [facility] Work Phone: Comment on above: Expected: 01/02/2023 , Expires: 03/04/2023 Start: 01-02-2023 End: 03-04-2023 Hemoglobin A1c in Blood HGB A1C Lab Routine Type 2 diabetes mellitus without retinopathy (HCC) Expected: 01/02/2023, Expires: 03/04/2023 [facility] Work Phone: Comment on above: Expected: 01/02/2023 , Expires: 03/04/2023 Start: 01-02-2023 End: 03-04-2023 LIPID PANEL, NONFASTING LIPID PANEL, NONFASTING Lab Routine Type 2 diabetes mellitus without retinopathy (HCC) Expected: 01/02/2023, Expires: 03/04/2023 [facility] Work Phone: Comment on above: Expected: 01/02/2023 , Expires: 03/04/2023 Start: 06-17-2022 ADVANCE DIRECTIVE DISCUSSION ADVANCE DIRECTIVE DISCUSSION [facility] Start: 06-17-2022 DEPRESSION ASSESSMENT DEPRESSION ASS ESSMENT [facility] Start: 02-28-2022 [facility] Work Phone: Start: 02-16-2022 End: 04-18-2022 Ferritin [Mass/volume] in Serum or Plasma FERRITIN BLD Lab Routine Restless legs syndrome (RLS) Iron deficiency anemia, unspecified iron deficiency anemia type Expected: 02/16/2022, Expires: 04/18/2022 [facility] Work Phone: Comment on above: Expected: 02/16/2022 , Expires: 04/18/2022 Start: 02-16-2022 End: 04-18-2022 Iron and Iron binding capacity panel - Serum or Plasma IRON + TIBC Lab Routine Restless legs syndrome (RLS) Iron deficiency anemia, unspecified iron deficiency anemia type Expected: 02/16/2022, Expires: 04/18/2022 [facility] Work Phone: Comment on above: Expected: 02/16/2022 , Expires: 04/18/2022 Start: 02-15-2022 Influenza vaccination [facility] Start: 12-29-2021 Egd transoral biopsy single/multiple EGD BIOPSY SINGLE/MULTIPLE [facility] Work Phone: Start: 12-29-2021 Patient discharge [facility] Work Phone: Start: 12-23-2021 Adult depression screening assessment DEPRESSION SCREENING [facility] Start: 10-23-2021 [facility] Work Phone: Start: 10-02-2021 Hemoglobin A1c/Hemoglobin.total in Blood HBA1C [facility] Start: 07-12-2021 EPV, Provider: Carlos Clarke, Status: Pen, Time: 10:30 AM EPV, Provider: Carlos Clarke, Status: Pen, Time: 10:30 AM [facility] Work Phone: Start: 06-20-2021 JULIA, Provider : Agustin Tanner, Status: Pen, Time: 1:20 PM JULIA, Provider: Agustin Tanner, Status: Pen, Time: 1:20 PM [facility] Work Phone: Start: 06-17-2021 ADVANCE DIRECTIVE DISCUSSION ADVANCE DIRECTIVE DISCUSSION [facility] Start: 06-17-2021 DEPRESSION ASSESSMENT DEPRESSION ASS ESSMENT [facility] Start: 05-14-2021 COVID-19 VACCINE (3 - Booster for Pfizer series) COVID-19 VACCINE (3 - Booster for Pfizer series) [facility] Start: 04-14-2021 EPV, Provider: Carlos Clarke, Status: Pen, Time: 11:00 AM EPV, Provider: Carlos Clarke, Status: Pen, Time: 11:00 AM [facility] Work Phone: Start: 02-15-2021 Influenza vaccination Sequenti al Influenza Vaccine (#1) [facility] Start: 02-06-2021 COVID-19 VACCINE (3 - Booster for Pfizer series) COVID-19 VACCINE (3 - Booster for Pfizer series) [facility] Start: 01-05-2021 VIRDARLENE, Provider : Carlos Clarke, Status: Pen, Time: 2:30 PM JULIA, Provider: Carlos Clarke, Status: Pen, Time: 2:30 PM [facility] Work Phone: Start: 08-19-2020 End: 08-19-2020 Office Visit 08/19/2020 Office Visit Cardiology Raisa Rao MD [address] [place] [address] [phone] [facility] Start: 07-29-2020 Colonoscopy COLONOSCOPY [facility] Start: 07-29-2020 COLORECTAL CANCER SCREENING COLORECTAL CANCER SCREENING [facility] Start: 07-29-2020 Screening for malign ant neoplasm of colon Colonoscopy [facility] Start: 02-16-2020 Influenza vaccinatio n given Sequential Influenza Vaccine (#1) [facility] Start: 10-09-2019 Hemoglobin A1c measurement A1C [facility] Start: 09-15-2019 Pneumococcal Vaccine : Age 65+ (2 - PCV) Pneumococcal Vaccine: Age 65+ (2 - PCV) [facility] Start: 2019 BONE DENSITY BONE DENSITY [facility] Start: 2019 Bone Density Screening Bone Density Screening [facility] Start: 2019 Fall risk assessment Falls Risk Asse ssment [facility] Start: 2019 Pneumococcal vaccination PNEUM OCOCCAL VACCINE AGE 65+ (1 of 2 - PCV13) [facility] Start: 02-15-2019 Influenza vaccinatio n given SEQUENTIAL INFLUENZA VACCINE (#1) [facility] Start: 03-06-2017 Glaucoma screening [facility] Start: 03-06-2017 Hepatitis C antibody , confirmatory test DILATED RETINAL EXAM [facility] Start: 02-15-2017 Influenza vaccination SEQUENTI AL INFLUENZA VACCINE (#1) [facility] Work Phone: Start: 2014 Hepatitis B Vaccine (1 of 3 - Risk 3-dose series) Hepatitis B Vaccine (1 of 3 - Risk 3-dose series) [facility] Start: 2014 RSV Vaccine (1 - 1-d ose 60+ series) RSV Vaccine (1 - 1-dose 60+ series) [facility] Start: 2014 Zoster vacc, sc ZOSTER VACCINE [facility] Work Phone: Start: 03-17-2013 DTaP/Tdap/Td Vaccine s (2 - Tdap) DTaP/Tdap/Td Vaccines (2 - Tdap) [facility] Start: 03-17-2013 Urine microalbumin profile [facility] Start: 2004 Administration of he rpes zoster vaccine Zoster Vaccines (1 of 2) [facility] Start: 2004 Screening for malign ant neoplasm of colon [facility] Start: 2004 SHINGRIX VACCINE (1 of 2) SHINGRIX VACCINE (1 of 2) [facility] Start: 2004 Zoster Vaccines (1 of 2) Zoste r Vaccines (1 of 2) [facility] Start: 1999 COLOGUARD (FIT-DNA) COLOGUARD (FIT-D NA) [facility] Start: 1999 Colonoscopy COLONOSCOPY [facility] Start: [address] COLONOGRAPHY [facility] Start: 1999 FECAL OCCULT BLOOD FECAL OCCULT BLOO D [facility] Start: 1999 Screening for malign ant neoplasm of colon [facility] Start: 1999 SIGMOIDOSCOPY SIGMOIDOSCOPY [facility] Start: 1994 Mammography MAMMOGRAM [facility] Start: 1994 Screening for malign ant neoplasm of breast Mammogram [facility] Start: 1972 ANNUAL PCP TEAM SALES REPRESENTATIVE EDUCATION COURSES ROGE DISEASE VISIT ANNUAL PCP TEAM CHRONIC DISEASE VISIT [facility] Start: 1972 BP CONTROLLED (<130/80) BP CON TROLLED (<130/80) [facility] Start: 1972 Depression Screening Depression Scre ening [facility] Start: 1972 Hepatitis B surface antibody level LDL CHOLESTEROL [facility] Start: 1972 Hepatitis C antibody , confirmatory test Hepatitis C Screening [facility] Start: 1972 Hepatitis C screening Hepatitis C Sc [facility] Start: 1972 HEPATITIS C SCREENING HEPATITIS C SC [facility] Start: 1970 COVID-19 Vaccine (1 of 2) COVID-19 Vaccine (1 of 2) [facility] Start: 1969 HIV screening HIV Screening [facility] Start: 1966 Adolescent depressio n screening assessment [facility] Start: 1966 COVID-19 Vaccine (1) COVID-19 Vaccin e (1) [facility] Start: 1966 Depression screening using PHQ-9 (Patient Health Questionnaire 9) score [facility] Start: 1964 3 comp foot exam completed DIABETIC FOOT EXAM [facility] Start: 1964 Glaucoma screening Diabetes: R etinopathy Screening [facility] Start: 1964 Hepatitis B screening URINE ALBUMIN:CREATININE RATIO [facility] Start: 1964 Microalbumin measurement, urine, quantitative Urine Microalbumin [facility] Start: 1964 Preventive dental service Diabetes: Dental Exam [facility] Start: 1964 Urine screening for protein Urine Microalbumin [facility] Start: 1964 End: 1964 Diabetic foot examination (regime/therapy) [facility] Start: 1964 End: 1964 Ophthalmic examination and evaluation OPHTHALMOLOGY EXAM [facility] Start: 1964 End: 1964 Urine, microalbumin URINE MICROALBUMIN [facility] Work Phone: Start: 1960 Pneumococcal Vaccine : Age 65+ (1 of 2 - PPSV23) Pneumococcal Vaccine: Age 65+ (1 of 2 - PPSV23) [facility] Start: 1960 PNEUMOCOCCAL: 65+ (1 - PCV) PNEUMOCOCCAL: 65+ (1 - PCV) [facility] Start: 1957 History and physical examination, annual for health maintenance Wellness Visit [facility] Start: 1954 COVID-19 Vaccine (#1) COVID-19 Vacci ne (#1) [facility] Start: 1954 Fall risk assessment Falls Risk Asse ssment [facility] Start: 1954 Hemoglobin A1c measurement A1C [facility] Start: 1954 Hepatitis C antibody , confirmatory test HEPATITIS C SCREENING [facility] Start: 1954 Medicare Advantage Annual Wellness Visit (AWV) Medicare Advantage Annual Wellness Visit (AWV) [facility] Start: 1954 Screening for malign ant neoplasm of colon [facility] Start: 1954 Screening for osteoporosis Dexa Scan [facility] Start: 1954 Screening mammography Mammogram [facility] Start: 1954 End: 1954 HbA1c [facility] Work Phone: Start: 1954 HEPATITIS C SCREENING HEPATITIS C SC REENING [facility] Work Phone: Start: 1954 Screening colonoscopy [facility] Work Phone: Start: 1954 End: 1954 Screening for malignant neoplasm of cervix PAP SMEAR [facility] Work Phone: Start: 1954 End: 1954 Tetanus vaccination [facility] 24 Hour ECG [facility] ACCUCHECK B/O ACCUCHECK B/O La b Routine Type 2 diabetes mellitus without retinopathy (HCC) Ordered: 05/28/2023 [facility] Work Phone: Comment on above: Ordered: 05/28/2023 Bacteria identified in Urine by Culture URINE CULTURE Microbiology Routine Urinary frequency Dysuria Chills Fever, unspecified fever cause Ordered: 02/17/2024 [facility] Work Phone: Comment on above: Ordered: 02/17/2024 BACTERIAL VAGINOSIS NAAT BACTERI AL VAGINOSIS NAAT Lab Routine Vaginal itching 03/11/2024 2:53 PM EDT [facility] BACTERIAL VAGINOSIS NAAT BACTERI AL VAGINOSIS NAAT Lab Routine Vaginal itching 06/03/2024 2:35 PM EST [facility] Basic metabolic 2008 panel with ionized calcium - Serum or Plasma [facility] HARPREET/TRICHOMONAS NAAT HARPREET /TRICHOMONAS NAAT Lab Routine Vaginal itching 03/11/2024 2:53 PM EDT [facility] Work Phone: HARPREET/TRICHOMONAS NAAT HARPREET /TRICHOMONAS NAAT Lab Routine Vaginal itching 06/03/2024 2:35 PM EST [facility] Work Phone: Cardiac catheterizat ion study Cardiac procedure CV Cardiac Cath Routine NSTEMI (non-ST elevated myocardial infarction) (CMS/HCC) (HCC) 04/30/2023 12:57 PM EST [facility] Work Phone: COVID & INFLUENZA A/ B & RSV NAAT, ROUTINE COVID & INFLUENZA A/B & RSV NAAT, ROUTINE Microbiology Routine Nausea and vomiting, unspecified vomiting type Acute cough Headache, unspecified headache type 05/28/2023 11:57 AM EST [facility] Work Phone: COVID & INFLUENZA A/ B & RSV PCR, ROUTINE COVID & INFLUENZA A/B & RSV PCR, ROUTINE Microbiology Routine Suspected COVID-19 virus infection Ordered: 04/08/2024 [facility] Work Phone: Comment on above: Ordered: 04/08/2024 End: 03-21-2024 Ct lumbar spine w/o contrast material CT LUMBAR SPINE WO IVCON Radiology Routine Acute bilateral low back pain with left-sided sciatica 1 Occurrences starting 02/20/2023 until 03/21/2024 [facility] Work Phone: Comment on above: 1 Occurrences starti ng 02/20/2023 until 03/21/2024 End: 12-23-2024 DBT Breast - bilateral screening [facility] Work Phone: Comment on above: ONCE for 1 Occurrenc es starting 12/23/2024 until 12/23/2024 End: 05-09-2024 DXA-AXIAL SKELETON DXA-AXIAL SKELETON Radiology Routine Asymptomatic postmenopausal status 1 Occurrences starting 04/10/2023 until 05/09/2024 [facility] Work Phone: Comment on above: 1 Occurrences starti ng 04/10/2023 until 05/09/2024 ECG 12 lead ECG 12 lead CV E CG Routine 05/01/2023 7:45 AM EST [facility] Work Phone: Glucose [Mass/volume ] in Serum or Plasma GLUCOSE, BLOOD (POC) Lab Routine Type 2 diabetes mellitus without retinopathy (HCC) Ordered: 04/10/2023 [facility] Work Phone: Comment on above: Ordered: 04/10/2023 Glucose [Mass/volume ] in Serum or Plasma GLUCOSE, BLOOD (POC) Lab Routine Lumbar radiculopathy Ordered: 08/24/2024 [facility] Comment on above: Ordered: 08/24/2024 Hemoglobin.gastroint venkatesh nal.lower [Presence] in Stool by Immunoassay IMMUNOCHEMICAL FECAL OCCULT BLOOD TEST Lab Routine Normocytic anemia Ordered: 11/04/2023 [facility] Work Phone: Comment on above: Ordered: 11/04/2023 Influenza virus A an d B RNA and SARS-CoV-2 (COVID-19) N gene panel - Respiratory specimen by NIEVES with probe detection COVID WITH FLUA+B, ROUTINE Microbiology Routine Suspected COVID-19 virus infection Ordered: 01/21/2023 [facility] Work Phone: Comment on above: Ordered: 01/21/2023 End: 01-02-2024 PAULINA SCREENING PAULINA SCREENING Radiology Routine Screening mammogram, encounter for 1 Occurrences starting 12/03/2022 until 01/02/2024 [facility] Work Phone: Comment on above: 1 Occurrences starti ng 12/03/2022 until 01/02/2024 End: 11-28-2024 MG Breast Screening PAULINA SCREENING Radiology Routine Encounter for screening mammogram for breast cancer 1 Occurrences starting 10/30/2023 until 11/28/2024 [facility] Work Phone: Comment on above: 1 Occurrences starti ng 10/30/2023 until 11/28/2024 End: 01-14-2026 MR Brain WO contrast MRI BRAIN WO IVCON Radiology Routine Dizziness Headache, unspecified headache type Visual changes Falls frequently 1 Occurrences starting 12/15/2024 until 01/14/2026 [facility] Comment on above: 1 Occurrences starti ng 12/15/2024 until 01/14/2026 End: 01-14-2026 MRA Head vessels WO contrast MRA BRAIN WO IVCON Radiology Routine Dizziness Headache, unspecified headache type Visual changes 1 Occurrences starting 12/15/2024 until 01/14/2026 [facility] Work Phone: Comment on above: 1 Occurrences starti ng 12/15/2024 until 01/14/2026 End: 01-14-2026 MRA Neck vessels WO contrast MRA CAROTID WO IVCON Radiology Routine Dizziness Headache, unspecified headache type Visual changes 1 Occurrences starting 12/15/2024 until 01/14/2026 [facility] Comment on above: 1 Occurrences starti ng 12/15/2024 until 01/14/2026 End: 02-17-2024 Mri spinal canal lumbar w/o contrast material MRI LUMBAR SPINE WO IVCON Radiology Routine Acute bilateral low back pain with left-sided sciatica 1 Occurrences starting 01/18/2023 until 02/17/2024 [facility] Work Phone: Comment on above: 1 Occurrences starti ng 01/18/2023 until 02/17/2024 Njx dx/ther sbst intrlmnr lmbr/sac w/img gdn EPI LUMBAR OR SACRAL W/IMAGING Procedures Routine Lumbar radiculopathy Ordered: 08/24/2024 [facility] Work Phone: Comment on above: Ordered: 08/24/2024 NM Heart Views W str ess and W radionuclide IV [facility] Patient Education [facility] Work Phone: Patient referral [facility] Work Phone: PT PLAN OF CARE CERTIFICATION PT PLAN OF CARE CERTIFICATION Procedures Routine Hip pain, left Chronic bilateral low back pain with left-sided sciatica Ordered: 12/21/2022 [facility] Comment on above: Ordered: 12/21/2022 End: 02-17-2024 Radex spine lumbosacral 2/3 views XR LUMBAR GENERAL 3V AP/LAT/L5-S1 Radiology Routine Acute bilateral low back pain with left-sided sciatica 1 Occurrences starting 01/18/2023 until 02/17/2024 [facility] Work Phone: Comment on above: 1 Occurrences starti ng 01/18/2023 until 02/17/2024 Radex spine lumbosac ral 2/3 views XR LUMBAR GENERAL 3V AP/LAT/L5-S1 Radiology Routine Acute bilateral low back pain with left-sided sciatica 01/18/2023 2:57 PM EDT [facility] Work Phone: Removal of sutures REMOVAL OF URRUTIA TURES Procedures Routine Laceration of left earlobe, subsequent encounter Visit for suture removal Ordered: 01/29/2023 [facility] Work Phone: Comment on above: Ordered: 01/29/2023 Urinalysis complete panel - Urine [facility] US Carotid arteries [facility] Work Phone: End: 12-29-2025 US Carotid arteries - bilateral US CAROTID ARTERIES [facility] Vascular Lab Routine Dizziness Headache, unspecified headache type Visual changes 1 Occurrences starting 12/29/2024 until 12/29/2025 [facility] Work Phone: Comment on above: 1 Occurrences starti ng 12/29/2024 until 12/29/2025 US Heart [facility] US Kidney - bilatera l and Urinary bladder US KIDNEY/BLADDER Radiology Routine CA (acute kidney injury) (HCC) 08/16/2023 2:19 PM EST [facility] Work Phone: End: 01-14-2026 US Kidney - bilateral and Urinary bladder US KIDNEY/BLADDER Radiology Routine Gross hematuria 1 Occurrences starting 12/15/2024 until 01/14/2026 [facility] Comment on above: 1 Occurrences starti ng 12/15/2024 until 01/14/2026 US Kidney - bilatera l and Urinary bladder US KIDNEY/BLADDER Radiology Routine Gross hematuria 01/06/2025 10:13 AM EDT [facility] Work Phone: End: 06-26-2025 XR Foot - left AP and Lateral and oblique XR FOOT GENERAL 3V AP/LAT/OBL LEFT Radiology Routine Pain of left heel 1 Occurrences starting 05/27/2024 until 06/26/2025 [facility] Work Phone: Comment on above: 1 Occurrences starti ng 05/27/2024 until 06/26/2025 XR Foot - left AP an d Lateral and oblique XR FOOT GENERAL 3V AP/LAT/OBL LEFT Radiology Routine Pain of left heel 05/27/2024 1:54 PM EST [facility] End: 11-05-2024 XR Knee - right 4 Views XR KNEE GENERAL 4V AP BOTH/PA BOTH/LAT/MERC RIGHT Radiology Routine Acute pain of right knee Swelling of joint, knee, right 1 Occurrences starting 10/07/2023 until 11/05/2024 [facility] Work Phone: Comment on above: 1 Occurrences starti ng 10/07/2023 until 11/05/2024 XR Knee - right 4 Views XR KNEE GENERAL 4V AP BOTH/PA BOTH/LAT/MERC RIGHT Radiology Routine Acute pain of right knee Swelling of joint, knee, right 10/07/2023 3:57 PM EDT [facility] NEGATED: Highlighted row has been ruled out! Planned Goals not documented [facility] Work Phone: Immunizations Immunization Date Immunization Notes Care Provider Payal vela 05-06-2024 influenza, high dose seasonal, preservative-free Anay Carbajallogar GUIDE DOG TRAINER.[employer]UB AMBASSADOR Work Phone: [facility] 05-06-2024 pneumococcal conjuga te (PCV20) vaccine, 20 valent (PREVNAR 20) Anay Podlogar GUIDE DOG TRAINER.NUTR[employer] CLUB AMBASSADOR Work Phone: [facility] 05-06-2024 pneumococcal Conjuga te, unspecified formulation Anay Carbajallogrosalia GUIDE DOG TRAINER.NUTRITION CLUB AMBASSADOR Work Phone: [facility] 05-06-2024 influenza virus vaccine, unspecified formulation Anay Carbajallogrosalia GUIDE DOG TRAINER.NUTR[employer] CLUB AMBASSADOR Work Phone: [facility] 04-20-2023 RSV, recombinant, protein subunit RSVpreF, adjuvant reconstituted, 0.5 mL, PF Chris Licona MD Work Phone: [facility] 02-20-2023 influenza (HD-IIV4) vaccine, age 65+ yr, high dose, quadrivalent, PF (FLUZONE HIGH-DOSE) Gabriela Linda MD Work Phone: [facility] 02-20-2023 influenza virus vaccine, unspecified formulation Screen Wstr [facility] 03-30-2022 Influenza, High-dose Seasonal, Quadrivalent, Preservative Free Anjali Harding GUIDE DOG 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: [facility] 04-14-2021 Fluzone High-Dose Quadrivalent 0.7 ML Intramuscular Suspension Prefilled Syringe; Translations: [Fluzone High-Dose Quadrivalent 0.7 ML Intramuscular Suspension Prefilled Syringe] Carlos Clarke Work Phone: [facility] Comment on above: Series: 12-12-2020 Pfizer-BioNTech COVID-19 Vacc 30 MCG/0.3ML Intramuscular Suspension Carlos Clarke Work Phone: [facility] 11-21-2020 Pfizer-BioNTech COVID-19 Vacc 30 MCG/0.3ML Intramuscular Suspension Carlos Clarke Work Phone: [facility] 04-06-2020 Fluzone High-Dose Quadrivalent 0.7 ML Intramuscular Suspension Prefilled Syringe; Translations: [Fluzone High-Dose Quadrivalent 0.7 ML Intramuscular Suspension Prefilled Syringe] Carlos Clarke Work Phone: [facility] Work Phone: Comment on above: Series: 04-06-2020 pneumococcal conjuga te vaccine, 13 valent; Translations: [Prevnar 13 Intramuscular Suspension] Carlos Linoer Work Phone: [facility] Work Phone: Comment on above: Series: 03-17-2019 influenza, high dose seasonal, preservative-free; Translations: [Influenza, high dose seasonal, preservative-free] [facility] Work Phone: Comment on above: Series: 09-14-2018 pneumococcal polysaccharide vaccine, 23 valent; Translations: [Pneumovax 23 25 MCG/0.5ML Injection Injectable] [facility] Work Phone: Comment on above: Series: 03-21-2017 influenza, injectabl e, quadrivalent, preservative free Carlos Linoer Work Phone: [facility] Work Phone: 04-26-2009 novel [id number], preservative-free, injectable Carlos Clarke Work Phone: [facility] Work Phone: 03-17-2003 diphtheria and tetan us toxoids, adsorbed for pediatric use Jania Watts APRN.[facility] Work Phone: [facility] Work Phone: Payers Date Payer Category Payer Medicare [id number] 06-17-2024 Medicare (Managed Care) 1.2. [id number] 06-17-2024 Unknown [id number] 04-17-2024 Self-pay [id number] 02-15-2022 Private Health Insurance 101 [id number] 10-15-2021 Unknown 10-15-2021 Unknown ANTHEM BLUE CROS S AND BLUE SHIELD ANTHEM MEDIBLUE HMO [id number] 10/15/2021-Present [phone] [address] [place] [address] HMO [id number] 05-17-2021 Medicaid MEDICAID [facility] MEDICAID [id number] 05/17/2021-Present [phone] [address] [place] [address] Medicaid [id number] 02-15-2021 Medicaid [id number] 02-15-2021 Medicaid [id number] 06-17-2015 Medicare [id number] 06-17-2015 Medicare MMO MANAGED [facility] CARE MMO MANAGED MEDICARE HMO [id number] 2015-Present [id number] 06-17-2015 Medicare [id number] 06-17-2015 Medicare [id number] 1954 Unknown [id number] [id number] 03 1954 Unknown [id number] 03 1954 Unknown [id number] 03 Medicare [id number] Medicare [id number] Medicare [id number] Unknown [id number] 62 Unknown [id number] 2.16.840.1.282591.3.579.2.4 62 Unknown [id number] 2.16.840.1.533957.3.579.2.4 62 Unknown [id number] 2.16.840.1.881404.3.579.2.4 62 Unknown [id number] 2.16.840.1.556728.3.579.2.4 62 Unknown [id number] 2.16.840.1.992068.3.579.2.4 62 Unknown [id number] 2.16.840.1.377611.3.579.2.4 62 Unknown [id number] 2.16.840.1.522142.3.579.2.4 62 Unknown [id number] 2.16.840.1.027487.3.579.2.4 62 Unknown [id number] 2.16.840.1.984632.3.579.2.4 62 Unknown [id number] 2.16.840.1.815897.3.579.2.4 62 Unknown [id number] 2.16.840.1.123352.3.579.2.4 62 Unknown [id number] 2.16.840.1.523131.3.579.2.4 62 Unknown [id number] 2.16.840.1.348970.3.579.2.4 62 Unknown [id number] 2.16.840.1.013540.3.579.2.4 62 Unknown [id number] 2.16.840.1.636306.3.579.2.4 62 Unknown [id number] 62 Social History Date Type Detail Facility Start: 10-04-2017 End: 02-17-2024 Tobacco smoking status NHIS Former smoker [facility] Work Phone: Start: 06-17-1970 End: 07-07-1997 History of tobacco use Current smoker [facility] Work Phone: Start: 1955 Sex Assigned At Not on file [facility] Work Phone: Start: 06-18-2017 Alcohol Comment rarely [facility] Start: 07-23-2019 End: 12-15-2024 Alcohol intake Current drinker of alcohol (finding) [facility] Start: 02-16-2020 End: 02-17-2024 Tobacco use and exposure Never used [facility] Start: 02-06-2022 End: 02-16-2022 Exposure to SARS-CoV-2 (event) Not sure [facility] Start: 12-02-2022 End: 12-03-2022 Former smoker Former smoker [facility] Start: 10-23-2021 End: 09-03-2023 Tobacco smoking status [facility] Unknown if ever smoked [facility] Start: 1955 Sex Assigned At Female [place] [facility] Start: 08-08-2017 End: 04-29-2023 Tobacco smoking status WVIS Never smoked tobacco [facility] Start: 06-09-2021 End: 10-17-2022 Alcohol intake Current non-drinker of alcohol (finding) [facility] Start: 06-17-1970 End: 07-07-1997 History of tobacco use Cigarette Smoker [facility] Start: 07-20-2020 End: 08-19-2020 Exposure to SARS-CoV-2 (event) Unable to assess [facility] Start: 12-02-2022 History SDOH Alcohol Frequency 4 [facility] Start: 12-02-2022 History SDOH Alcohol Std Drinks 1 [facility] Start: 12-02-2022 History SDOH Social Connections Phone 3 [facility] Start: 12-02-2022 History SDOH Social Connections Get Together 2 [facility] Start: 12-02-2022 History SDOH Social Connections Living 5 [facility] Start: 12-02-2022 History SDOH Physica l Activity MPS 15 [facility] Start: 12-03-2022 Alcohol Comment 2-3 drinks per month [facility] Start: 12-02-2022 End: 02-25-2024 Social connection and isolation panel [facility] Do you belong to any clubs or organizations such as zoroastrianism groups, unions, fraternal or athletic groups, or school groups? No [facility] Start: 05-18-2012 Attends Club or Organization Meetings Not on file [facility] Are you now , , , , never or living with a partner? [facility] How often to you hav e a drink containing alcohol? 2-3 time sa week [facility] How many standard drinks containing alcohol do you have on a typical day? 1 or 2 [facility] How often do you hav e 6 or more drinks on 1 occasion? Never [facility] Do you feel stress - tense, restless, nervous, or anxious, or unable to sleep at night because your mind is troubled all the time - these days [OSQ] Very much [facility] Start: 04-11-2020 Gender identity Identifies as female gender (finding) [facility] Start: 03-28-2021 Sexual orientation Heterosexual (wallace ceron) [facility] How hard is it for y ou to pay for the very basics like food, housing, medical care, and heating Somewhat hard [facility] Do you feel stress - tense, restless, nervous, or anxious, or unable to sleep at night because your mind is troubled all the time - these days [OSQ] To some extent [facility] (I/We) worried case er (my/our) food would run out before (I/we) got money to buy more. Sometimes true [facility] NEGATED: Highlighted linden - - -[facility] Work Phone: NEGATED: Jadiel cheatham [facility] Medical Equipment Procedure Code Equipment Code Equipment Origin al Text Equipment Identifier Dates Start: 09-22-2018 End: 04-10-2023 Comment on above: 1 Each two times a d ay. 1 Strip two times a day. Test blood sugar(s) 2 times daily. Dx: Type 2 DM - Controlled E11.9 Insulin: No Accu-Chek SmartView In Vitro Strip TEST BLOOD SUGAR 2-3 TIMES DAILY Refills: 0 Start : 30-May-2019 Active Start: 05-30-2019 Stent Cor Deepika nt [id number] - [id number]_[facility] Start: 04-30-2023 Stent-04/17/2019 [id number] Start: 04-17-2019 Comment on above: Description: 17 sten ts per patient Device Closure Vascade 6/7fr - [id number] Start: 04-30-2023 1 strip by Other route in the morning and 1 strip in the evening. [id number] Start: 04-10-2023 1 Each two times a day. [id number] Start: 04-10-2023 End: 02-04-2024 1 Strip two time s a day. [id number] Start: 04-10-2023 End: 02-04-2024 Test blood sugar(s) 2 times daily. Dx: Type 2 DM - Controlled E11.9 Insulin: No [id number] Start: 04-10-2023 End: 08-05-2024 Test blood sugar(s) 2 times daily. Dx: Type 2 DM - Controlled E11.9 Insulin: No [id number] Start: 04-10-2023 End: 08-05-2024 [id number] Start: 09-22-2018 End: 04-10-2023 [id number] Start: 09-22-2018 End: 04-10-2023 Test blood sugar(s) 2 times daily. Dx: Type 2 DM - Controlled E11.9 Insulin: No [id number] Start: 08-05-2024 End: 01-04-2025 Test blood sugar(s) 2 times daily. Dx: Type 2 DM - Controlled E11.9 Insulin: No [id number] Start: 08-05-2024 Test blood sugar(s) 2 times daily. Dx: Type 2 DM - Controlled E11.9 Insulin: No [id number] Start: 01-04-2025 Goals Date Patient Goal Desired Activity /State Functional Status Date Assessment Result Facility 06-27-2023 Functional status Activity Abili ty [facility] Work Phone: 04-29-2023 Functional status Ambulates [facility] Work Phone: 01-12-2015 Are you deaf, or do you have serious difficulty hearing No 01/12/2015 12:49 PM Sofy Li, GLORIA No [facility] 01-12-2015 Are you blind, or do you have serious difficulty seeing, even when wearing glasses No 01/12/2015 12:49 PM Sofy Li, RN No [facility] 01-12-2015 Do you have serious difficulty walking or climbing stairs No 01/12/2015 12:49 PM Sofy Li, RN No [facility] 01-12-2015 Do you have difficul ty dressing or bathing No 01/12/2015 12:49 PM Sofy Li, GLORIA No [facility] 01-12-2015 Because of a physica l, mental, or emotional condition, do you have difficulty doing errands alone such as visiting a physician's office or shopping No 01/12/2015 12:49 PM Sofy Li RN No [facility] NEGATED: Highlighted row Functional performance Functional status health issues are not documented Disease [facility] Work Phone: Mental Status Date Assessment Result Facility 11-03-2024 Cognitive function Level Of Cons ciousness Awake;Alert;Appropriate ;Follows Commands [facility] Work Phone: 06-27-2023 Cognitive function Voice/Name [facility] Work Phone: 05-18-2023 Cognitive function Voice/Name [facility] Work Phone: 04-29-2023 Cognitive function Voice/Name [facility] Work Phone: 01-17-2022 Cognitive function Level Of Cons ciousness Awake;Appropriate;Drows y [facility] Work Phone: 12-29-2021 Cognitive function Voice/Name [facility] Work Phone: 10-23-2021 Cognitive function Voice/Name [facility] Work Phone: 01-12-2015 Because of a physical, mental, or emotional condition, do you have serious difficulty concentrating, remembering, or making decisions No 01/12/2015 12:49 PM EDT Sofy Garcia, RN No [facility] NEGATED: Highlighted row Cognitive function [Interpretation] Cognitive status health issues are not documented Disease [facility] Work Phone: Clinical Notes 10-15-2001 to 01-29-2025 Telephone Encounter - Davey Pack - 01/29/2025 12:02 PM EDTTelephone Encounter - Davey Pack - 01/29/2025 12:02 PM EDTPTraci nj OTR/L - 01/27/2025 11:28 AM EDT Note Date & Type Note Facility 01-29-2025 Telephone encounter Note Pt called and she would like to schedule an appt with a Vascular surgeon Contact name: Elsa Ochoa and cell number:[phone] Diagnosis:Stenosis of both vertebral arteries Kind Regards Jung Pack [facility] 01-29-2025 Miscellaneous Notes Pt called and she would like to schedule an appt with a Vascular surgeon Contact name: Elsa Ochoa and cell number:[phone] Diagnosis:Stenosis of both vertebral arteries Kind Ginny Jung Agrawali Sirena documented in this encounter [facility] 01-27-2025 Note HNO ID: [id number] Author: TRACI JEAN OTR/L Service: ? Author Type: Occupational Therapist Type: Progress Notes Filed: 01/27/2025 11:31 Note Text: Summary: OT evaluation Episode Visit Count: 1 Therapist That Will Accept/Oversee The Plan Of Care: Traci Jean Start of Care Date: 01/27/25 Onset Date: 01/28/24 Plan of Care Certification Date: 01/27/25 Next Certification Due Date: 04/27/25 Patient Identified by Name and Date of : Yes [facility] OCCUPATIONAL THERAPY EVALUATION PLAN OF CARE: Assessment: Elsa Pugh presents with diagnosis of hand pain d/t arthritis and R MF trigger finger that interferes with gripping, pinching, twisting, pulling, pushing, carrying . The patient presents with impairments in joint mobility, overall function, range of motion, sensation, strength, and tissue tenderness. PROMIS? (Patient-Reported Outcomes Measurement Information System) scores were reviewed and identified as a rehabilitation concern. Prognosis for therapy is Good due to: current objective clinical presentation . The patient will benefit from skilled therapy services to meet the goals established for this plan of care as noted below. Goals for Episode of Care: established 01/27/25 Patient reported outcome of pain Interference will decrease T -score by a minimum of 5 points. Patient will report a good understanding of diagnosis and OT recommendations for progression of program. Patient will report a decrease in pain in Right hand to 4/10 with basic self-care tasks and light functional tasks. Patient will increase R foundry helper strength equal to L, so that patient will be able to improve function for basic self-care tasks and light functional tasks. Patient will increase Right pinch by 20% so that patient will be able to improve function for light functional tasks. Patient Goals: Resume normal function of hand / reduce pain Time Frame for Goals and Treatment : 03/10/25 Planned Interventions, Frequency, and Duration: Current Frequency: 1x/month Duration: 12 weeks Total Number of Visits Planned: 4 Planned Treatment Interventions: Therapeutic exercise (38845), Therapeutic activities (83301), Manual therapy (67809), Self-nursing home management (13058) PLAN FOR NEXT VISIT:adjust HEP as pain decreases Patient demonstrates good understanding of plan of care and treatment. The above goals and plan of care were discussed and agreed upon by patient/family. SUBJECTIVE: OT initial evauation; pt presents with (B) hand pain d/t arthritis; has R MF trigger finger; order place to assist with joint pain; pt was told she does not have RA but OA. 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 [employer] 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 [employer] Hobbies / Interests: painting Home Environment Patient Lives With: Significant Other Pain: Pain Pain Level: 7 Description: Aching Additional Pain Information : Location 2 Pain Level 2: 5 Pain Location 2: Hand - Left Description 2: Aching Frequency 2: Intermittent Post Treatment Pain Post Treatment Pain Level: No Change Post Treatment Pain Score 2: No Change PROMIS Scales 01/20/2025 12/30/2024 12/23/2024 Higher is Better Self-Eff Symptom - T Score 42 (Average) 41 (Average) Self-Eff Symptom - Percentile 21 18 Mobility - T Score 38 (moderate dysfunction) Mobility - Percentile 12 Upper Extremity - T Score 36 (moderate dysfunction) 38 (moderate dysfunction) Upper Extremity - Percentile 8 12 12/04/2024 Lower is Better Pain Interference - T Score 72 (severe) Pain Interference - Percentile 1 T-Score and Percentile Interpretation T-scores: mean of general population = 50. 5 points is clinically meaningfully difference Percentiles provide an indication of how the patient's score ranks in relation to the general population. Higher percentile rankings indicate better function/quality of life. 50th percentile is the average of the general population and indicates half of respondents had a worse score. OBJECTIVE MEASURES WITH LEVEL OF FUNCTION: Sensation - Upper Extremity UE Light Touch Sensation: Impaired Hand Edema Location: intermittent swelling ; R MF swollen Edema Descriptio (more content not included)... [facility] 01-27-2025 History of Presen t illness Narrative Summary: OT evaluation Images from the original note were not included. Episode Visit Count: 1 Therapist That Will Accept/Oversee The Plan Of Care: Traci Jean Start of Care Date: 01/27/25 Onset Date: 01/28/24 Plan of Care Certification Date: 01/27/25 Next Certification Due Date: 04/27/25 Patient Identified by Name and Date of : Yes [facility] OCCUPATIONAL THERAPY EVALUATION PLAN OF CARE: Assessment: Elsa Pugh presents with diagnosis of hand pain d/t arthritis and R MF trigger finger that interferes with gripping, pinching, twisting, pulling, pushing, carrying . The patient presents with impairments in joint mobility, overall function, range of motion, sensation, strength, and tissue tenderness. PROMIS (Patient-Reported Outcomes Measurement Information System) scores were reviewed and identified as a rehabilitation concern. Prognosis for therapy is Good due to: current objective clinical presentation . The patient will benefit from skilled therapy services to meet the goals established for this plan of care as noted below. Goals for Episode of Care: established 01/27/25 Patient reported outcome of pain Interference will decrease T -score by a minimum of 5 points. Patient will report a good understanding of diagnosis and OT recommendations for progression of program. Patient will report a decrease in pain in Right hand to 4/10 with basic self-care tasks and light functional tasks. Patient will increase R foundry helper strength equal to L, so that patient will be able to improve function for basic self-care tasks and light functional tasks. Patient will increase Right pinch by 20% so that patient will be able to improve function for light functional tasks. Patient Goals: Resume normal function of hand / reduce pain Time Frame for Goals and Treatment : 03/10/25 Planned Interventions, Frequency, and Duration: Current Frequency: 1x/month Duration: 12 weeks Total Number of Visits Planned: 4 Planned Treatment Interventions: Therapeutic exercise (27177), Therapeutic activities (95215), Manual therapy (98256), Self-nursing home management (92878) PLAN FOR NEXT VISIT:adjust HEP as pain decreases Patient demonstrates good understanding of plan of care and treatment. The above goals and plan of care were discussed and agreed upon by patient/family. SUBJECTIVE: OT initial evauation; pt presents with (B) hand pain d/t arthritis; has R MF trigger finger; order place to assist with joint pain; pt was told she does not have RA but OA. 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 [employer] 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 [employer] Hobbies / Interests: painting Home Environment Patient Lives With: Significant Other Pain: Pain Pain Level: 7 Description: Aching Additional Pain Information : Location 2 Pain Level 2: 5 Pain Location 2: Hand - Left Description 2: Aching Frequency 2: Intermittent Post Treatment Pain Post Treatment Pain Level: No Change Post Treatment Pain Score 2: No Change PROMIS Scales 01/20/2025 12/30/2024 12/23/2024 Higher is Better Self-Eff Symptom - T Score 42 (Average) 41 (Average) Self-Eff Symptom - Percentile 21 18 Mobility - T Score 38 (moderate dysfunction) Mobility - Percentile 12 Upper Extremity - T Score 36 (moderate dysfunction) 38 (moderate dysfunction) Upper Extremity - Percentile 8 12 12/04/2024 Lower is Better Pain Interference - T Score 72 (severe) Pain Interference - Percentile 1 T-Score and Percentile Interpretation T-scores: mean of general population = 50. 5 points is clinically meaningfully difference Percentiles provide an indication of how the patient's score ranks in relation to the general population. Higher percentile rankings indicate better function/quality of life. 50th percentile is the average of the general population and indicates half of respondents had a worse score. OBJECTIVE MEASURES WITH LEVEL OF FUNCTION: Sensation - Upper Extremity UE Light Touch Sensation: Impaired Hand Edema Location: intermittent swelling ; R MF swollen Edema Description: Mild Edema Measurements: Digits Edema - Digits: Middle Finger Shoulder AROM: WFL Wrist AROM: WFL Right Hand AROM: WFL Left Hand AROM: WFL Thumb AROM: WFL Strength: Client Program Manager Position 2, Pinch Meter Sensation: Denies tingling or numbness Dexterity/Coordination: Fine Motor Hand Strength R Client Program Manager Position 2 (lbs): 26 lbs L Client Program Manager Position 2 (lbs): 35 lbs R Lateral Pinch (lbs): 8 lbs R Tripod/ 3 Jaw Colin (lbs): 7 lbs L Lateral Pinch (lbs): 11 lbs L Tripod/ 3 Jaw Colin (lbs): 12 lbs UE AROM R UE AROM: WFL L UE AROM: WFL Right Hand AROM: WFL Left Hand AROM: WFL Thumb AROM: WFL UE and Cervical Strength R UE Strength: DNT d/t increased inflammation and pain L UE Strength: DNT d/t increased inflammation and pain Instrumental Activities of Daily Living Difficulty noted with: Meal/Beverage Prep, Cooking, Cleaning, Laundry, Additional Instrumental Activities of Daily Living Meal/Beverage Prep: Modified Independent Cooking: Modified Independent Cleaning: Modified Independent Laundry: Modified Independent Education: Education Learning Preferences: Demonstration, Explanation, Performance, Printed Materials Barriers: None Learning/educational needs: Home exercise program Education Provided: Yes, see treatment interventions for education provided Education Provided To: Patient Education Mode/Type: Demonstration, Explanation/Discussion, Literature/Printed Materials, Performance Response to Education/Teach Back: States/Identifies, Return Demonstration, Requires Review/Additional Education TREATMENT: OT Treatment Interventions : Self-Assisted Management, Therapeutic Exercise Evaluation Evaluation Therapeutic Exercise: 1: Education of HEP for digit ROM; including blocking of DIP/PIP joints (R MF) and tendon glides as tolerated in pain free ROM Skilled Intervention: Patient was educated in proper exercise technique and purpose for exercises. Skilled judgment was used in selection of appropriate interventions. Provided written instruction for home exercise program to facilitate proper performance and compliance. Correct performance of therapeutic exercises was facilitated with verbal and visual cuing. Self-Assisted Management: 1: Education of task modifications for daily living / work tasks 2: Education of task modifications: including rest breaks, respecting pain, reduce sustained grasp / pinch activities 3: Educationof heat vs. ice; heat prior to exercise if needed / for comfort; ice for acute flare ups / after exercises if needed. Discussed paraffin ; 4: Education of compression gloves / coban for support and reduction of swelling in joints. Skilled Intervention: Skilled judgment in the selection of proper modification for activity of daily living/home management based on clinical presentation, deficits, and needs. Provided written instruction for activities of daily living techniques to facilitate proper performance and compliance. Reviewed patient specific diagnosis in relation to activities of daily living/home management. Activity progression based on professional judgement. Billing * Evaluation Low Complexity: 1 Unit Therapeutic Exercise Treatment Minutes: 10 Self-Care/Home Management Treatment Minutes: 15 Skilled Treatment Time Minutes (timed and untimed codes): 45 Total Session Time (minutes): 45 Session Start Time : 1040 Session Stop Time : 1125 CHRIS Duncan documented in this encounter [facility] 01-26-2025 Telephone encounter Note Patient informed. Was currently @ [facility] while given results waiting to have her US completed. I advised her to scheduled the vascular medicine consult before leaving. She verbalized understanding. Claudia Hilliard MA [facility] 01-26-2025 Miscellaneous Notes Patient informed. Was currently @ [facility] while given results waiting to have her US completed. I advised her to scheduled the vascular medicine consult before leaving. She verbalized understanding. Claudia Hilliard MA ----- Message from Gabriela Linda MD sent at 01/25/2025 12:40 PM EDT ----- CTA of the head negative for acute findings including stroke, bleed or mass. She does have severe narrowing of the right vertebral artery and moderate narrowing of the left. Continue ASA, plavix and Tricor. Recommend referral to vascular surgery for further evaluation of vertebral artery stenosis. Please assist with scheduling MITA. ----- Message ----- From: Radiology, Oru In Sent: 01/22/2025 3:32 PM EDT To: Anay Lawrence, COOPER[employer] AMBASSADOR documented in this encounter [facility] 01-26-2025 Telephone encounter Note ----- Message from Gabriela Linda MD sent at 01/25/2025 12:40 PM EDT ----- CTA of the head negative for acute findings including stroke, bleed or mass. She does have severe narrowing of the right vertebral artery and moderate narrowing of the left. Continue ASA, plavix and Tricor. Recommend referral to vascular surgery for further evaluation of vertebral artery stenosis. Please assist with scheduling MITA. ----- Message ----- From: Radiology, Oru In Sent: 01/22/2025 3:32 PM EDT To: Anay Lawrence APRN.CNP [facility] 01-25-2025 Telephone encounter Note Pt had hospital f/u with Eyad Victoria STUD SETTER this morning. Barry Eduardo RN [facility] 01-25-2025 Miscellaneous Notes Pt had hospital f/u with Eyad Victoria NP this morning. Barry Eduardo RN Agree with ER evaluation. Please obtain records and schedule for ER follow-up if patient was not admitted. Anay Lawrence APRN.CNP documented in this encounter [facility] 01-25-2025 Telephone encounter Note Denial received for Nidra device. Patient's insurance requires a consent form signed by patient to allow office to appeal on patient's behalf. Consent form sent to patient to sign. Once form is received signed, an appeal letter will need to be created, faxed along with last two office visits and any supporting sleep studies demonstrating RLS to be faxed for the appeal. [employer] message sent to patient with consent form attached. [facility] 01-25-2025 Miscellaneous Notes Denial received for Nidra device. Patient's insurance requires a consent form signed by patient to allow office to appeal on patient's behalf. Consent form sent to patient to sign. Once form is received signed, an appeal letter will need to be created, faxed along with last two office visits and any supporting sleep studies demonstrating RLS to be faxed for the appeal. [employer] message sent to patient with consent form attached. Received denial for nerve stimulator documented in this encounter [facility] 01-25-2025 Note [facility] 01-25-2025 History of Presen t illness Narrative Chief Complaint Patient presents with: ER F/U HPI Elsa Pugh is a 69 year old female who presents here today for Above Complaints.. Patient presents for ER f/u. Patient was in ER 8/7 for panic attack. Patient was given ativan and resources for counseling. Patient currently on celexa and feels like normally it is enough to manage her symptoms but due to current stressors with her health and her sisters health she is having increased anxiety and stress. Past medical history, appointments, medications, allergies reviewed. Previous Medical History PAST MEDICAL HISTORY[1] Previous Surgical History PAST SURGICAL HISTORY Procedure Laterality Date COLONOSCOPY FLX DX W/COLLJ SPEC WHEN PFRMD 10/16/2003 Colonoscopy ESOPHAGOGASTRODUODENOSCOPY TRANSORAL DIAGNOSTIC 10/16/2003 EGD LAPS ABD PRTM&OMENTUM DX W/WO SPEC BR/WA SPX Laparoscopy PAST SURGICAL HISTORY OF 01/15/2015 4 new stents were placed PAST SURGICAL HISTORY OF 17 stents PAST SURGICAL HISTORY OF 2001 CABGx4 PAST SURGICAL HISTORY OF 04/2023 PCI of SVG to RPDA with 2 LENA implanted TONSILLECTOMY PRIMARY/SECONDARY <AGE 11 Tonsillectomy TOTAL ABDOMINAL HYSTERECT W/WO RMVL TUBE OVARY Hysterectomy, ZAKI Family History FAMILY HISTORY[2] Patient Allergies ALLERGIES[3] Current Medications Meds Previous to this Encounter[4] Social History SOCIAL HISTORY[5] Review of Symptoms REVIEW OF SYSTEMS SEE HPI EXAM: BP 147/66 Pulse (!) 51 Wt 93 kg (205 lb 0.4 oz) BMI 34.58 kg/m General Appearance: Calm but tearful. Well groomed, well dressed. Health Maintenance List Depression Screening Never done Hepatitis C Screening Never done Shingrix Vaccine(1 of 2) Never done DTaP,Tdap,Td Vaccine(2 - Tdap) due on 03/17/2013 Advance Directive Discussion Never done Medicare Advantage Annual Wellness Visit Never done Colorectal Cancer Screening due on 11/11/2024 Dilated Retinal Exam due on 11/13/2024 Influenza Vaccine(1) due on 02/15/2025 HbA1C due on 04/24/2025 Diabetic Foot Exam due on 05/06/2025 Urine Albumin:Creatinine Ratio due on 05/13/2025 LDL Cholesterol due on 05/13/2025 Annual PCP Team Chronic Disease Visit due on 12/15/2025 Mammogram Screening due on 12/23/2025 Serum Creatinine due on 01/22/2026 Bone Density Screening Completed RSV Vaccine Completed Pneumococcal Vaccine: 50+ Completed Data reviewed LOVE-7 More data exists 04/07/2024 08/20/2024 11/10/2024 12/15/2024 01/23/2025 LOVE-7 All Questions Feeling nervous, anxious, or on edge Several days - Several days Not at all Nearly Everyday Not being able to stop or control worrying Several days - Several days Several days More than half the days Worrying too much about different things Several days Several days Several days Several days Nearly Everyday Trouble relaxing Several days Not at all Several days Several days More than half the days Being so restless that it is hard to sit still Not at all Several days Several days Not at all Nearly Everyday Becoming easily annoyed or irritable Several days Several days Several days Several days Nearly Everyday Feeling afraid, as if something awful might happen Several days Not at all Several days Several days Nearly Everyday LOVE-7 Score 6 - 7 5 19 PHQ-9 More data exists 07/12/2024 08/20/2024 11/10/2024 12/15/2024 01/23/2025 PHQ-9 Scores Little interest or pleasure in doing things: Several days Not at all Several days Not at all Several days Feeling down, depressed, or hopeless: More than half the days Not at all Not at all Not at all Several days Trouble falling or staying asleep, or sleeping too much More than half the days Several days Several days Several days Several days Feeling tired or having little energy More than half the days Several days Not at all Several days More than half the days Poor appetite or overeating More than half the days Several days Not at all Not at all Several days Feeling bad about yourself - or that you are a failure or have let yourself or your family down Not at all Not at all Not at all Not at all More than half the days Trouble concentrating on things, such as reading the newspaper or watching television More than half the days Several days Several days Not at all More than half the days Moving or speaking so slowly that other people could have noticed. Or the opposite - being so fidgety or restless that you have been moving around a lot more than usual Not at all Not at all Several days Several days More than half the days Thoughts that you would be better off , or of hurting yourself in some way Not at all Not at all Not at all Not at all Not at all PHQ-9 Score 11 4 4 3 12 ASSESSMENT/PLAN: 1. Generalized anxiety disorder - ICD9: 300.02, ICD10: F41.1 (primary diagnosis) - BUSPIRONE 5 MG TABLET 2. Panic disorder - ICD9: 300.01, ICD10: F41.0 - BUSPIRONE 5 MG TABLET Eyad Victoria, GUIDE DOG TRAINER.[employer] AMB[employer]OR [1] Past Medical History: No date: Coronary artery disease Comment: Dr. Osorio No date: DDD (degenerative disc disease), lumbar No date: Essential hypertension 01/15/2023: Generalized anxiety disorder No date: Hemorrhage of rectum and anus No date: History of colonic polyps No date: Hyperlipidemia No date: Hypoglycemia, unspecified No date: Narcolepsy (HCC) Comment: Sleep Medicine in [place] No date: NSTEMI (non-ST elevated myocardial infarction) ([facility]) No date: Obesity No date: Obstructive sleep apnea Comment: on CPAP No date: Plantar fasciitis No date: PMH - PAST MEDICAL HISTORY OF Comment: edema 08/19/2023: Renal angiomyolipoma Comment: left, 8mm No date: Restless legs syndrome (RLS) 2002: S/P CABG x 4 No date: Statin intolerance 03/06/2016: Type 2 diabetes mellitus without retinopathy ([facility]) No date: Unspecified asthma(493.90) Comment: mild intermittent, triggered by damp weather No date: Uterine prolapse Comment: s/p hysterectomy [2] Review of patient's family history indicates: Problem: other (colon polyps) Relation: Father Age of Onset: (Not Specified) Problem: Diabetes Relation: Father Age of Onset: (Not Specified) Problem: Heart disease Relation: Father Age of Onset: (Not Specified) Problem: Diabetes Relation: Sister Age of Onset: (Not Specified) Problem: other (rheumatoid arthritis) Relation: Sister Age of Onset: (Not Specified) Problem: Anxiety disorder Relation: Sister Age of Onset: (Not Specified) Problem: Heart Attack Relation: Sister Age of Onset: (Not Specified) Problem: No Known Problems Relation: Maternal Grandmother Age of Onset: (Not Specified) Problem: No Known Problems Relation: Maternal Grandfather Age of Onset: (Not Specified) Problem: No Known Problems Relation: Paternal Grandmother Age of Onset: (Not Specified) Problem: No Known Problems Relation: Paternal Grandfather Age of Onset: (Not Specified) Problem: Drug abuse Relation: Son Age of Onset: (Not Specified) Problem: No Known Problems Relation: Daughter Age of Onset: (Not Specified) [3] Allergies Allergen Reactions Asa [Salicylates] Vomiting Augmentin [Amoxicil* GI Upset Belladonna [Bellado* Intolerance GI upset Benazepril Cough Sep 2005 Butazolidin [Phenyl* Unknown Carbidopa Darvocet-N 100 [Pro* Intolerance HEADACHE Doxycycline Other: See Comments Patient ended up in ER with tongue and throat swelling- allergy not ruled out Guaifenesin-Sodium * Ibuprofen Rash Jardiance [Empaglif* Intolerance Vaginal itching Levaquin [Levofloxa* Other: See Comments Hallucinations anxiety numbness tingling Lopid [Gemfibrozil] Niacin Niaspan [Niacin (An* Penicillins Hives Provigil [Modafinil] Mental Status Change hallucinations Ramipril Unknown Tvvqyqf-Red-Tiy Red* Myalgia Sulfa (Sulfonamide * Tramadol Other: See Comments stroke like symptoms [4] Current Outpatient Medications on File Prior to Visit Medication Sig evolocumab 140 mg/mL subcutaneous pen injector (REPATHA SURECLICK) Inject 140 mg subcutaneously every 2 weeks. SITagliptin phosphate (JANUVIA) 50 mg tablet Take 1 tablet by mouth once daily. fenofibrate nanocrystallized (TRICOR) 145 mg tablet Take 1 tablet by mouth once daily. blood sugar diagnostic (BLOOD GLUCOSE TEST) test strip Test blood sugar(s) 2 times daily. Dx: Type 2 DM - Controlled E11.9 Insulin: No albuterol HFA (PROVENTIL HFA, VENTOLIN HFA) 90 mcg/actuation inhaler Inhale 2 puffs as instructed every 4 hours as needed for wheezing/shortness of breath. pregabalin (LYRICA) 150 mg capsule TAKE 1 CAPSULE BY MOUTH TWICE DAILY AT SUPPER AND BEDTIME metFORMIN (GLUCOPHAGE) 1,000 mg tablet Take 1 tablet by mouth two times a day with meals. amLODIPine (NORVASC) 5 mg tablet Take 1 tablet by mouth once daily. citalopram (CELEXA) 40 mg tablet Take 1 tablet by mouth once daily. aspirin, enteric coated (ASPIRIN, ENTERIC COATED) 81 mg EC tablet Take 1 tablet by mouth once daily. Lancets Test blood sugar(s) 2 times daily. Dx: Type 2 DM - Controlled E11.9 Insulin: No CPAP/BIPAP/OTHER Type .CPAPSettings into a note to see current settings/supplies/DME information. metoprolol succinate ER (TOPROL XL) 25 mg 24 hr tablet Take 0.5 tablets by mouth once daily. promethazine (PHENERGAN) 25 mg tablet Take 1 tablet by mouth every 6 hours as needed for nausea/vomiting. (Patient taking differently: Take 25 mg by mouth every 6 hours as needed for nausea/vomiting. daily) clopidogrel (PLAVIX) 75 mg tablet Take 75 mg by mouth once daily. isosorbide mononitrate ER (IMDUR) 60 mg 24 hr tablet Take 90 mg by mouth once daily. pantoprazole DR (PROTONIX) 40 mg tablet Take 1 tablet by mouth once daily. Take on empty stomach, 1/2 hr before meal. cholecalciferol (VITAMIN D-3) 50 mcg (2,000 unit) tablet Take 2,000 Units by mouth once daily. (Patient taking differently: Take 1,000 Units by mouth once daily.) CPAP/BIPAP/OTHER Formal mask fitting to consider smaller FFM like dreamwear due to dry eyes and supplies for bipap 13/8cmH2O DME [facility] CPAP/BIPAP/OTHER Replacement auto bipap 13/8 with PS of 5cmH2O DME [facility] CPAP/BIPAP/OTHER Settings decrease to autobipap 13/8cmH2O DME [employer] BIPAP DME change for supplies. Pt has a [employer] Auto BiPAP IPAP max 18, EPAP min 6 CM H2O, PS 5 cmH2O. mask, filters, heated humidity & tubing, [employer] supplies. LADAN G47.33 red yeast rice 600 mg tab ascorbic acid, vitamin C, (VITAMIN C) 500 mg tablet Take 500 mg by mouth daily at bedtime. nitroglycerin sublingual (NITROQUICK) 0.4 mg SL tablet Dissolve 0.4 mg under the tongue. MAGNESIUM ORAL Take 300 mg by mouth twice daily. some days takes three tablets ranolazine ER (RANEXA) 500 mg 12 hr tablet Take 1,000 mg by mouth twice daily. No current facility-administered medications on file prior to visit. [5] Social History Tobacco Use Smoking status: Former Current packs/day: 0.00 Average packs/day: 0.5 packs/day for 27.0 years (13.5 ttl pk-yrs) Types: Cigarettes Start date: 1970 Quit date: 1997 Years since quittin.6 Smokeless tobacco: Never Vaping Use Vaping status: Never Used Substance Use Topics Alcohol use: Yes Comment: 2-3 drinks per month Drug use: No documented in this encounter [facility] 01-25-2025 Telephone encounter Note Received denial for nerve stimulator [facility] 01-22-2025 History of Presen t illness Narrative Radiology Service Progress Note DATE OF SERVICE: January 22, 2025 TIME: 4:05 PM PATIENT IDENTITY VERIFICATION COMPLETED USING TWO (2) STANDARD IDENTIFIERS: Name and Date of confirmed by patient verbally. FALL SCREENING: Has the patient had 2 falls in the last year or 1 fall with injury or currently using an Ambulatory Assistive Device (Walker, Cane, Wheelchair, Crutches, etc.)? No PATIENT GENDER DATA: Assigned female at . status: : No status: NO. PATIENT RELEVANT IMPLANT DATA REVIEWED: Yes PATIENT PRESENTS WITH AN IMPLANTABLE OR ATTACHED BOARDING MACHINE OPERATOR: No ALLERGIES: Reviewed and unchanged CONTRAST ALLERGY: NO. EXAM: CT -CONTRAST INDUCED NEPHROPATHY RISK FACTORS: Patient age > 60 years CREATININE: Creatinine Date Value Ref Range Status 01/22/2025 0.95 0.58 - 0.96 mg/dL Final 10/07/2024 1.09 (H) 0.58 - 0.96 mg/dL Final 05/13/2024 0.91 0.58 - 0.96 mg/dL Final Estimated Glomerular Filtration Rate Date Value Ref Range Status 01/22/2025 65 >=60 mL/min/1.73m Final Comment: Estimated Glomerular Filtration Rate (eGFR) is calculated using the 2020 CKD-EPI creatinine equation. This equation utilizes serum creatinine, sex, and age as parameters. The creatinine assay has traceable calibration to isotope dilution-mass spectrometry. Refer to KDIGO guidelines for clinical interpretation. In patients with unstable renal function, e.g. those with acute kidney injury, the eGFR may not accurately reflect actual GFR. eGFR- Date Value Ref Range Status 07/04/2021 >60 Final P.O.C.T. RESULTS: POC done: Yes, See Lab Tab January 22, 2025 TREATMENT: N/A PERIPHERAL IV DATA: Ambulatory: A peripheral IV was started in the Left antecubital site with a Angio cath: 18 gauge. RADIOLOGY DEPARTMENT: CT; Exam(s) Completed: Brain and CTA Brain SIGNATURE: RT Donato(R) PATIENT NAME: Elsa Pugh DATE: January 22, 2025 TIME: 4:05 PM documented in this encounter [facility] 01-22-2025 Note [facility] 01-22-2025 Telephone encounter Note Agree with ER evaluation. Please obtain records and schedule for ER follow-up if patient was not admitted. Anay Lawrence APRN.[employer] AMBASSADOR [facility] 01-15-2025 Telephone encounter Note Prescription Refill Information The patient has been identified by name and date of : Yes Caregiver verified no other encounters exist for this prescription request: Yes Caregiver confirmed with patient/requestor that no other refills are due, in the near future, with this provider at this time: Yes The last office visit in the department: 12/15/24 Does the patient have a future office visit with this provider/department: Yes 02/03/25 Requested Prescriptions Pending Prescriptions Disp Refills evolocumab 140 mg/mL subcutaneous pen injector (REPATHA SURECLICK) 8 each 1 Sig: Inject 140 mg subcutaneously every 2 weeks. Nataliya Martinez LPN January 15, 2025 4:35 PM [facility] 01-15-2025 Miscellaneous Notes Prescription Refill Information The patient has been identified by name and date of : Yes Caregiver verified no other encounters exist for this prescription request: Yes Caregiver confirmed with patient/requestor that no other refills are due, in the near future, with this provider at this time: Yes The last office visit in the department: 12/15/24 Does the patient have a future office visit with this provider/department: Yes 02/03/25 Requested Prescriptions Pending Prescriptions Disp Refills evolocumab 140 mg/mL subcutaneous pen injector (REPATHA SURECLICK) 8 each 1 Sig: Inject 140 mg subcutaneously every 2 weeks. Nataliya Martinez LPN January 15, 2025 4:35 PM documented in this encounter [facility] 01-06-2025 Note [facility] 07-23-2025 History of Presen t illness Narrative Images from the original note were not included. Episode Visit Count: 1 Therapist That Will Accept/Oversee The Plan Of Care: ySdni Leger Start of Care Date: 01/06/25 Onset Date: 11/06/24 Plan of Care Certification Date: 01/06/25 Next Certification Due Date: 04/08/25 Patient Identified by Name and Date of : Yes REHABILITATION AND SPORTS THERAPY PHYSICAL THERAPY EVALUATION PLAN OF CARE: Assessment: Elsa Pugh presents with chief complaint of difficulty with walking and multiple falls that interferes with rising from a chair, standing, walking, stair negotiation, working . The patient presents with impairments in ADL's, balance, gait, overall function, strength, and symptom management. PROMIS (Patient-Reported Outcomes Measurement Information System) scores were reviewed and identified as a rehabilitation concern. Prognosis for therapy is Fair due to: clinical presentation, multiple co- morbidities, limited tolerance to activity . The patient will benefit from skilled therapy services to meet the goals established for this plan of care as noted below. Assessment Fall Risk : Active at risk Goals for Episode of Care: established 01/06/25 Patient reported outcome of self-efficacy will increase T-score by a minimum 5 points. Patient will report no falls. Improve score on Timed Up and Go Test to 9 seconds to reflect decreased fall risk. Improve score on 30 Second Chair Stand to 10 repetitions to reflect decreased fall risk. Improve performance on 4 Stage Balance Test to 10 seconds in SLS to reflect decreased fall risk. [place] in home exercise program including cardiovascular exercise. Time Frame for Goals and Treatment : 03/09/25 Planned Interventions, Frequency, and Duration: Current Frequency: 1x/week Duration: 8 weeks Total Number of Visits Planned: 8 Planned Treatment Interventions: Therapeutic exercise (86164), Neuromuscular re-education (74945), Manual therapy (48134), Therapeutic activities (79101), Self-nursing home management (98101), Gait Training (05893), Patient/Family/Caregiver Education, Body Mechanics Training PLAN FOR NEXT VISIT: Balance training, BLE strengthening Patient demonstrates good understanding of plan of care and treatment. The above goals and plan of care were discussed and agreed upon by patient/family. SUBJECTIVE: A few falls within a week back at the end of October, beginning of November. Patient was leaning forward pulling weeds. Patient notes that she consistently falls and leans to the right. Often times she leans and falls into things to the right. Only falls were ~2 months ago, but she is constantly stumbling and falling into things, just not ending up on the ground. Functional Limitations: rising from a chair, standing, walking, stair negotiation, working Prior Level of Function: Independent without limitations Intake Information: Prescription present Falls History # of falls in past year: 3 # of falls resulting in an injury in past year: 1 Pain: Pain Pain Level: 5 Pain Location: Neck, Back Description: Aching, Sore Frequency: Continuous (neck intermittent, back constant) PROMIS Scales 12/30/2024 12/23/2024 12/04/2024 Higher is Better Phys Func - T Score 34 (moderate dysfunction) Phys Func - Percentile 5 Self-Eff Symptom - T Score 41 (Average) Self-Eff Symptom - Percentile 18 Mobility - T Score 38 (moderate dysfunction) Mobility - Percentile 12 Upper Extremity - T Score 38 (moderate dysfunction) Upper Extremity - Percentile 12 12/04/2024 Lower is Better Pain Interference - T Score 72 (severe) Pain Interference - Percentile 1 T-Score and Percentile Interpretation T-scores: mean of general population = 50. 5 points is clinically meaningfully difference Percentiles provide an indication of how the patient's score ranks in relation to the general population. Higher percentile rankings indicate better function/quality of life. 50th percentile is the average of the general population and indicates half of respondents had a worse score. OBJECTIVE MEASURES WITH LEVEL OF FUNCTION: LE Strength R LE Strength: 4+/5 L LE Strength: 4+/5 Functional Performance Test Results Assistive Device: Cane 30 Second Chair Stand Test: 7 reps Timed Up and Go (sec): 15.33 sec 4 Stage Balance Test Narrow base of support (sec): 10 sec Semi-tandem base of support (sec): 10 sec Tandem base of support (sec): 10 sec Single leg stance - right (sec): 4 sec Single leg stance - left (sec): 8 sec Vitals BP: 121/76 Pulse: (!) 48 SpO2: 95 % Education: Education Learning Preferences: Demonstration, Explanation, Performance, Printed Materials Barriers: None Learning/educational needs: Home exercise program, Plan of Care, Changes in Plan of Care, Gait Training, Body Mechanics Education Provided: Yes, see treatment interventions for education provided Education Provided To: Patient Education Mode/Type: Demonstration, Explanation/Discussion, Literature/Printed Materials, Performance Response to Education/Teach Back: States/Identifies TREATMENT: PT Treatment Interventions: Therapeutic Exercise Evaluation Therapeutic Exercise: 1: *SL hip abduction 3x10/side 2: *SLR 3x10/side 3: *STS 3x10 4: *Seated ankle dorsiflexion/plantarflexion 3x10/side Skilled Intervention: Patient was educated in proper exercise technique and purpose for exercises. Skilled judgment was used in selection of appropriate interventions. Provided written instruction for home exercise program to facilitate proper performance and compliance. Correct performance of therapeutic exercises was facilitated with verbal, visual, and tactile cuing. Billing * Evaluation Moderate Complexity: 1 Unit Therapeutic Exercise Treatment Minutes: 13 Skilled Treatment Time Minutes (timed and untimed codes): 40 Total Session Time (minutes): 40 Session Start Time : 903 Session Stop Time : 943 Sydni Leger PT Program_ID:[id number] Access Code: [email or web address] URL: [email or web address] Date: 01-06-2025 Prepared By: Sydni Leger Program Notes Exercises - Sidelying Hip Abduction - 1 x daily - 7 x weekly - 3 sets - 10 reps - Supine Active Straight Leg Raise - 1 x daily - 7 x weekly - 3 sets - 10 reps - Sit to Stand with Arms Crossed - 1 x daily - 7 x weekly - 3 sets - 10 reps - Seated Heel Toe Raises - 1 x daily - 7 x weekly - 3 sets - 10 reps documented in this encounter [facility] 01-06-2025 History of Presen t illness Narrative Radiology Service Progress Note PATIENT NAME: Elsa Pugh DATE OF SERVICE: January 06, 2025 TIME: 10:44 AM PATIENT IDENTITY VERIFICATION COMPLETED USING TWO (2) IDENTIFIERS: Name and Date of confirmed by patient verbally. FALL SCREENING: Has the patient had 2 falls in the last year or 1 fall with injury or currently using an Ambulatory Assistive Device (Walker, Cane, Wheelchair, Crutches, etc.)? No PATIENT GENDER DATA: Assigned female at . status: : No status: NO. PATIENT RELEVANT IMPLANT DATA REVIEWED: Yes PATIENT PRESENTS WITH AN IMPLANTABLE OR ATTACHED BOARDING MACHINE OPERATOR: No RADIOLOGY DEPARTMENT: MR; Exam(s) Completed: Head: Routine Brain [place] [facility]. Aromatherapy Administered: No PERIPHERAL IV DATA: Not applicable SIGNED BY: RT Aruna(Sharron) January 06, 2025 10:44 AM documented in this encounter [facility] 01-06-2025 Note [facility] 01-04-2025 Telephone encounter Note Prescription Refill Information The patient has been identified by name and date of : Yes Caregiver verified no other encounters exist for this prescription request: Yes Caregiver confirmed with patient/requestor that no other refills are due, in the near future, with this provider at this time: Yes The last office visit in the department: 12/15/24 Does the patient have a future office visit with this provider/department: Yes, 02/03/25 Requested Prescriptions Pending Prescriptions Disp Refills SITagliptin phosphate (JANUVIA) 50 mg tablet 90 tablet 1 Sig: Take 1 tablet by mouth once daily. fenofibrate nanocrystallized (TRICOR) 145 mg tablet 90 tablet 1 Sig: Take 1 tablet by mouth once daily. blood sugar diagnostic (BLOOD GLUCOSE TEST) test strip 180 strip 5 Sig: Test blood sugar(s) 2 times daily. Dx: Type 2 DM - Controlled E11.9 Insulin: No albuterol HFA (PROVENTIL HFA, VENTOLIN HFA) 90 mcg/actuation inhaler 8.5 g 1 Sig: Inhale 2 puffs as instructed every 4 hours as needed for wheezing/shortness of breath. Hi Lou LPN January 04, 2025 2:53 PM [facility] 01-04-2025 Miscellaneous Notes Prescription Refill Information The patient has been identified by name and date of : Yes Caregiver verified no other encounters exist for this prescription request: Yes Caregiver confirmed with patient/requestor that no other refills are due, in the near future, with this provider at this time: Yes The last office visit in the department: 12/15/24 Does the patient have a future office visit with this provider/department: Yes, 02/03/25 Requested Prescriptions Pending Prescriptions Disp Refills SITagliptin phosphate (JANUVIA) 50 mg tablet 90 tablet 1 Sig: Take 1 tablet by mouth once daily. fenofibrate nanocrystallized (TRICOR) 145 mg tablet 90 tablet 1 Sig: Take 1 tablet by mouth once daily. blood sugar diagnostic (BLOOD GLUCOSE TEST) test strip 180 strip 5 Sig: Test blood sugar(s) 2 times daily. Dx: Type 2 DM - Controlled E11.9 Insulin: No albuterol HFA (PROVENTIL HFA, VENTOLIN HFA) 90 mcg/actuation inhaler 8.5 g 1 Sig: Inhale 2 puffs as instructed every 4 hours as needed for wheezing/shortness of breath. Hi Lou LPN January 04, 2025 2:53 PM documented in this encounter [facility] 12-29-2024 Telephone encounter Note I will place order for US. Thanks, Anay Lawrence APRN.CNP [facility] 12-29-2024 Miscellaneous Notes I will place order for US. Thanks, Anay Lawrence APRN.CNP [facility] with radiology calls to report that the MRA of neck that is ordered is not authorized. Insurance is requesting an order for US instead. Myriam is requesting order for US to be placed and she will watch for order in [employer]. Please review and advise, Kaitlynn Noel RN documented in this encounter [facility] 12-29-2024 Telephone encounter Note Myriam with radiology calls to report that the MRA of neck that is ordered is not authorized. Insurance is requesting an order for US instead. Myriam is requesting order for US to be placed and she will watch for order in [employer]. Please review and advise, Kaitlynn Noel RN [facility] 12-24-2024 Telephone encounter Note Prescription Refill Information The patient has been identified by name and date of : Yes Caregiver verified no other encounters exist for this prescription request: Yes Caregiver confirmed with patient/requestor that no other refills are due, in the near future, with this provider at this time: Yes The last office visit in the department: 12/15/24 Does the patient have a future office visit with this provider/department: Yes 02/03/25 Requested Prescriptions Pending Prescriptions Disp Refills metFORMIN (GLUCOPHAGE) 1,000 mg tablet 180 tablet 1 Sig: Take 1 tablet by mouth two times a day with meals. metFORMIN (GLUCOPHAGE) 1,000 mg tablet 60 tablet 0 Sig: Take 1 tablet by mouth two times a day with meals. Nataliya Martinez LPN December 24, 2024 10:42 AM [facility] 12-24-2024 Miscellaneous Notes Prescription Refill Information The patient has been identified by name and date of : Yes Caregiver verified no other encounters exist for this prescription request: Yes Caregiver confirmed with patient/requestor that no other refills are due, in the near future, with this provider at this time: Yes The last office visit in the department: 12/15/24 Does the patient have a future office visit with this provider/department: Yes 02/03/25 Requested Prescriptions Pending Prescriptions Disp Refills metFORMIN (GLUCOPHAGE) 1,000 mg tablet 180 tablet 1 Sig: Take 1 tablet by mouth two times a day with meals. metFORMIN (GLUCOPHAGE) 1,000 mg tablet 60 tablet 0 Sig: Take 1 tablet by mouth two times a day with meals. Nataliya Martinez LPN December 24, 2024 10:42 AM documented in this encounter [facility] 12-23-2024 History of Presen t illness Narrative Radiology Service Progress Note PATIENT NAME: Elsa Pugh DATE OF SERVICE: December 23, 2024 TIME: 10:11 AM PATIENT IDENTITY VERIFICATION COMPLETED USING TWO (2) IDENTIFIERS: Name and Date of confirmed by patient verbally. FALL SCREENING: Has the patient had 2 falls in the last year or 1 fall with injury or currently using an Ambulatory Assistive Device (Walker, Cane, Wheelchair, Crutches, etc.)? No PATIENT GENDER DATA: Assigned female at . status: : No status: NO. PATIENT RELEVANT IMPLANT DATA REVIEWED: Not Applicable PATIENT PRESENTS WITH AN IMPLANTABLE OR ATTACHED BOARDING MACHINE OPERATOR: No RADIOLOGY DEPARTMENT: Mammography PERIPHERAL IV DATA: Not applicable SIGNED BY: Leesa Hart December 23, 2024 10:11 AM documented in this encounter [facility] 12-23-2024 Note [facility] 12-17-2024 Telephone encounter Note Already addressed at her recent visit. Anay Lawrence APRN.CNP [facility] 12-17-2024 Miscellaneous Notes Already addressed at her recent visit. Anay Lawrence APRN.CNP Reviewed, awaiting results. Diya ptarick [facility] calls and reports that patient was seen by GI. Patient had complaints of dizziness, urinary changes, and confusion. STUD SETTER had ordered urine testing. Diya is faxing over results. Maddison Mullen RN documented in this encounter [facility] 12-17-2024 Telephone encounter Note Reviewed, awaiting results. [facility] 12-17-2024 Telephone encounter Note Diya from [facility] calls and reports that patient was seen by GI. Patient had complaints of dizziness, urinary changes, and confusion. STUD SETTER had ordered urine testing. Diya is faxing over results. Maddison Mullen RN [facility] 12-16-2024 Note [facility] 12-16-2024 History of Presen t illness Narrative POPULATION HEALTH NAVIGATION OUTREACH Action/[facility] Support: Called pt to schedule an appt in Pain Management. The call would not go through. I sent a [employer] message. Any agent can assist. Reason for Outreach Care Gap/HCC or Scheduling Wellness Visits Care Gaps due: N/A Patient Contacted: Unable or unnecessary to reach patient: Unable to leave message [employer] message sent Navigation Signature: Nikki Rangel December 16, 2024 4:11 PM documented in this encounter [facility] 12-15-2024 Instructions Anay Lawrence APRN.JUANITA - 12/15/2024 2:05 PM EDT - Restart metformin as previously prescribed to help control your blood sugar. - Complete the MRI of your brain and carotid arteries as ordered to evaluate blood flow and investigate your confusion and headaches. - Complete the ultrasound of your kidneys and bladder as ordered to assess the recent pink/foamy urine. - Have lab work drawn (including kidney function and blood sugar) before your follow-up visit in January. - Keep your upper endoscopy (EGD) appointment on February 03 and monitor for any signs of bleeding (blood in stool or urine). - Follow up with your business lawyer about your persistent chest pain and be sure to schedule that appointment if you haven t already. - Pause use of medical marijuana for now so we can determine if it s contributing to your symptoms. - Seek emergency care immediately if you experience any of the following: sudden worst headache, slurred speech, facial drooping, one-sided weakness or numbness, sudden double vision, or a marked increase in dizziness. - If your tests do not reveal a clear cause and balance remains an issue, consider balance-training physical therapy to improve stability. documented in this encounter [facility] 12-15-2024 Note [facility] 12-15-2024 History of Presen t illness Narrative 12/15/2024 Patient presents with: Follow Up: Saw Gastro at [facility] 12/14 Recording using [employer] software for draft documentation of the visit was discussed with the patient/authorized residential sales representative; all questions welcomed and answered. Patient/authorized residential sales representative agreed to proceed SUBJECTIVE: This is a 69 year old that is here today for Above Complaints. Confusion: - Onset of confusion x2-3 weeks. - Describes feeling fuzzy and forgetful. - Recent episode of disorientation while driving to an appointment. - Denies getting lost or blacking out; confusion is intermittent. - No previous history of confusion. Headaches: - Daily headaches, primarily in the occipital region. - Onset coincided with a recent fall resulting in a head injury. - Takes Tylenol in the morning with some relief. - Associated with nausea and dizziness. - Denies emesis. Dizziness: - Intermittent episodes of dizziness, described as feeling like she wants to fall. - One fall attributed to dizziness. - Uses a cane for balance. - Associated with nausea; denies emesis. - Blurry vision accompanying dizziness; denies diplopia. Hematuria: - Noticed pink and foamy urine in the toilet bowl x1 week. - Denies dysuria, frequency, or urgency. - Recent urinalysis showed no blood but some glucose. Back Pain: - Chronic back pain due to DDD. - Recent increase in pain. - Uses medical marijuana for pain relief, prescribed by a doctor at [facility]. - Smokes marijuana after work and before bed for pain management and sleep aid. Diabetes Mellitus: - Stopped taking Metformin due to concerns about side effects. - Recent blood glucose level was 263 mg/dL. - Last medication change was the addition of Januvia, prior to the onset of current symptoms. Chronic Kidney Disease: - Known history of CKD with fluctuating kidney function. - Recent labs showed decreased kidney function. Chest Pain: - Ongoing stabbing pain in the right chest. - Has not yet seen a business lawyer; left a message to make an appointment. PAST MEDICAL HISTORY Diagnosis Date Coronary artery disease Dr. Osorio DDD (degenerative disc disease), lumbar Essential hypertension Generalized anxiety disorder 01/15/2023 Hemorrhage of rectum and anus History of colonic polyps Hyperlipidemia Hypoglycemia, unspecified Narcolepsy ([facility]) Sleep Medicine in [place] NSTEMI (non-ST elevated myocardial infarction) ([facility]) Obesity Obstructive sleep apnea on CPAP Plantar fasciitis PMH - PAST MEDICAL HISTORY OF edema Renal angiomyolipoma 08/19/2023 left, 8mm Restless legs syndrome (RLS) S/P CABG x 4 2001 Statin intolerance Type 2 diabetes mellitus without retinopathy ([facility]) 03/06/2016 Unspecified asthma(493.90) mild intermittent, triggered by damp weather Uterine prolapse s/p hysterectomy ALLERGIES Asa [Salicylates], Augmentin [Amoxicillin-Pot Clavulanate], Belladonna [Belladonna Alkaloids], Benazepril, Butazolidin [Phenylbutazone], Carbidopa, Darvocet-N 100 [Propoxyphene N-Acetaminophen], Doxycycline, Guaifenesin-Sodium Citrate, Ibuprofen, Jardiance [Empagliflozin], Levaquin [Levofloxacin], Lopid [Gemfibrozil], Niacin, Niaspan [Niacin (Antihyperlipidemic)], Penicillins, Provigil [Modafinil], Ramipril, Kqzcktp-Gnm-Yjh Reductase Inhibitors, Sulfa (Sulfonamide Antibiotics), and Tramadol MEDICATIONS Current Outpatient Medications Medication Sig amLODIPine (NORVASC) 5 mg tablet Take 1 tablet by mouth once daily. citalopram (CELEXA) 40 mg tablet Take 1 tablet by mouth once daily. aspirin, enteric coated (ASPIRIN, ENTERIC COATED) 81 mg EC tablet Take 1 tablet by mouth once daily. evolocumab 140 mg/mL subcutaneous pen injector (REPATHA SURECLICK) Inject 140 mg subcutaneously every 2 weeks. SITagliptin phosphate (JANUVIA) 50 mg tablet Take 1 tablet by mouth once daily. pregabalin (LYRICA) 150 mg capsule TAKE 1 CAPSULE BY MOUTH TWICE DAILY AT SUPPER AND BEDTIME blood sugar diagnostic (BLOOD GLUCOSE TEST) test strip Test blood sugar(s) 2 times daily. Dx: Type 2 DM - Controlled E11.9 Insulin: No Lancets Test blood sugar(s) 2 times daily. Dx: Type 2 DM - Controlled E11.9 Insulin: No albuterol HFA (PROVENTIL HFA, VENTOLIN HFA) 90 mcg/actuation inhaler Inhale 2 Puffs as instructed every 4 hours as needed for wheezing/shortness of breath. metFORMIN (GLUCOPHAGE) 1,000 mg tablet Take 1 tablet by mouth two times a day with meals. CPAP/BIPAP/OTHER Type .CPAPSettings into a note to see current settings/supplies/DME information. fenofibrate nanocrystallized (TRICOR) 145 mg tablet Take 1 tablet by mouth once daily. metoprolol succinate ER (TOPROL XL) 25 mg 24 hr tablet Take 0.5 tablets by mouth once daily. promethazine (PHENERGAN) 25 mg tablet Take 1 tablet by mouth every 6 hours as needed for nausea/vomiting. (Patient taking differently: Take 25 mg by mouth every 6 hours as needed for nausea/vomiting. daily) clopidogrel (PLAVIX) 75 mg tablet Take 75 mg by mouth once daily. isosorbide mononitrate ER (IMDUR) 60 mg 24 hr tablet Take 90 mg by mouth once daily. pantoprazole DR (PROTONIX) 40 mg tablet Take 1 tablet by mouth once daily. Take on empty stomach, 1/2 hr before meal. cholecalciferol (VITAMIN D-3) 50 mcg (2,000 unit) tablet Take 2,000 Units by mouth once daily. (Patient taking differently: Take 1,000 Units by mouth once daily.) CPAP/BIPAP/OTHER Formal mask fitting to consider smaller FFM like dreamwear due to dry eyes and supplies for bipap 13/8cmH2O DME [facility] CPAP/BIPAP/OTHER Replacement auto bipap 13/8 with PS of 5cmH2O DME [facility] CPAP/BIPAP/OTHER Settings decrease to autobipap 13/8cmH2O DME [employer] BIPAP DME change for supplies. Pt has a Resmed Auto BiPAP IPAP max 18, EPAP min 6 CM H2O, PS 5 cmH2O. mask, filters, heated humidity & tubing, [employer] supplies. LADAN G47.33 red yeast rice 600 mg tab ascorbic acid, vitamin C, (VITAMIN C) 500 mg tablet Take 500 mg by mouth daily at bedtime. nitroglycerin sublingual (NITROQUICK) 0.4 mg SL tablet Dissolve 0.4 mg under the tongue. MAGNESIUM ORAL Take 300 mg by mouth twice daily. some days takes three tablets ranolazine ER (RANEXA) 500 mg 12 hr tablet Take 1,000 mg by mouth twice daily. No current facility-administered medications for this visit. Medications and allergies reviewed by this provider. SOCIAL HISTORY Social History Tobacco Use Smoking status: Former Current packs/day: 0.00 Average packs/day: 0.5 packs/day for 27.0 years (13.5 ttl pk-yrs) Types: Cigarettes Start date: 1970 Quit date: 1997 Years since quittin.5 Smokeless tobacco: Never Vaping Use Vaping status: Never Used Substance Use Topics Alcohol use: Yes Comment: 2-3 drinks per month Drug use: No REVIEW OF SYSTEMS OBJECTIVE: BP 118/64 Pulse (!) 56 Resp 18 Wt 90.5 kg (199 lb 9.6 oz) SpO2 93% BMI 33.66 kg/m . Vital signs reviewed by this provider. APPEARANCE Well appearing, alert, in no acute distress, well-hydrated, well nourished. EYES PERRLA, conjunctiva and sclera normal. EARS External ears normal, canals clear NECK Supple, no adenopathy; thyroid symmetric, normal size, no bruits HEART RRR with normal S1 and S2, no murmurs, no gallops, no JVD appreciated LUNG clear to auscultation EXTREMITIES Extremities normal, No deformities, No skin discoloration, and No edema NEURO Awake, alert and oriented x 3, Cranial nerves II-XII grossly intact, Reflexes symmetrical, Normal gait, No involuntary motions., and negative findings: speech normal, mental status intact, cranial nerves 2-12 intact, gait, including heel, toe, and tandem walking normal, muscle tone normal, muscle strength normal, rapid alternating movements normal, finger to nose normal, sensation to light touch and pinprick normal, reflexes normal and symmetric, plantar response downgoing bilaterally, Positive Romberg Depression Screening Never done Hepatitis C Screening Never done Shingrix Vaccine(1 of 2) Never done DTaP,Tdap,Td Vaccine(2 - Tdap) due on 03/17/2013 Advance Directive Discussion Never done Medicare Advantage Annual Wellness Visit Never done Colorectal Cancer Screening due on 11/11/2024 Dilated Retinal Exam due on 11/13/2024 Mammogram Screening due on 12/17/2024 Covid-19 Vaccine() due on 05/06/2025 HbA1C due on 02/02/2025 Influenza Vaccine(1) due on 02/15/2025 Diabetic Foot Exam due on 05/06/2025 Urine Albumin:Creatinine Ratio due on 05/13/2025 LDL Cholesterol due on 05/13/2025 Serum Creatinine due on 10/07/2025 Hemoglobin/Hematocrit due on 10/07/2025 Annual PCP Team Chronic Disease Visit due on 11/12/2025 Bone Density Screening Completed RSV Vaccine Completed Pneumococcal Vaccine: 50+ Completed 1. Dizziness (R42) 2. Headache, unspecified headache type (R51.9) 3. Visual changes (H53.9) - Symptoms of dizziness, persistent headaches, and intermittent blurry vision following a recent fall with head trauma. - CT of the head performed in the ER showed no acute intracranial pathology. - Ordered MRI of the brain and MRA of the carotid arteries to assess for any vascular abnormalities or past strokes not detected by CT. - Advised patient to discontinue use of medical marijuana to rule out its potential contribution to symptoms. - Educated patient on signs of acute neurological deterioration, including severe headache, slurred speech, facial drooping, and unilateral weakness or numbness, and instructed to seek immediate emergency care if these occur. - Discussed possibility of post-concussive syndrome and potential referral to neurology if symptoms persist. 4. Gross hematuria (R31.0) - Recent urinalysis showed no hematuria but did reveal glucosuria, likely secondary to discontinuation of metformin. - Ordered ultrasound of the kidneys and urinary bladder to investigate potential underlying causes. - Advised patient to resume metformin to manage blood glucose levels. - Scheduled follow-up labs in January to reassess renal function. 5. Falls frequently (R29.6) - Patient reports multiple falls over the past six months, with recent episodes of dizziness contributing to instability. - Discussed potential benefits of physical therapy for balance training; patient prefers to wait for diagnostic test results before initiating therapy. - Recent x-rays of the back showed degenerative disc disease; no acute fractures or dislocations. - Advised patient to use a cane for support and to prevent further falls. Anay Lawrence APRN.[employer] AMBASSADOR Prescription instructions reviewed with patient as applicable. Patient advised if symptoms do not improve or if symptoms worsen sooner, to contact their primary care physician. Potential red flag symptoms discussed with the patient. Reviewed appropriate action plan to take if red flag symptoms occur. Patient agreeable to treatment plan. Medical Decision Making: Problems: Moderate: New problem with uncertain prognosis Data: Unique test(s) ordered: 3+ Medical Decision Making Level: 4 - Moderate documented in this encounter [facility] 12-14-2024 Evaluation note Diagnosis Onset Date Resolution Flank pain acute December 14 1:40pm Gastric ulcer acute December 14, 2024 1:40pm Hematuria acute December 14 1:40pm Bradycardia acute December 16 1:41pm Chest pain acute December 16, 2024 1:41pm Atherosclerosis of coronary artery chronic December 16, 2024 1:41pm Diabetes chronic December 16, 2024 1:41pm Essential hypertension chronic Ju ly 2024 1:41pm Hyperlipidemia chronic December 16, 2024 1:41pm Bradycardia acute January 13 2:20pm Chest pain acute January 13 2:20pm Atherosclerosis of coronary artery chronic January 13, 2025 2:20pm Diabetes chronic January 13 2:20pm Essential hypertension chronic Ju ly 2024 2:20pm Hyperlipidemia chronic January 13, 2025 2:20pm [facility] [employer] Work Phone: [phone]) 141-472306-25-2025 Instructions* Patient Instructions* Carmencita Caldera MD - 12/09/2024 11:56 AM EDT It was a pleasure to see you today. On your way out, please stop at the front office assistant to make a follow up visit (in- person or virtual). If your doctor ordered labs during this visit, please go to the first floor for labs. If your doctor ordered imaging, please go to the second floor for radiology imaging. For any other testing or referrals, please call central [phone]. To schedule a musculoskeletal ultrasound appointment, call [phone]. Send us your workup at: Address: [facility] [place] [address] Rheumatology office: [phone], Fax [phone] Thank you, Carmencita Caldera MD Associate Staff Physician Rheumatology - Begin occupational therapy for your hands and trigger finger exercises; attend sessions and perform the recommended exercises at home to strengthen the muscles around your finger joints. - Use artificial tears 2-3 times daily for eye dryness and schedule a follow-up appointment with your literacy tutor (last seen in May). - Use Tylenol as needed for joint and muscle pain. - Schedule an appointment with your primary care provider to evaluate any pink or frothy urine and coordinate kidney monitoring with Dr. Alcaraz as needed. [facility] History of Present illness Narrative* Carmencita Caldera MD - 12/09/2024 11:00 AM EDT Images from the original note were not included. Rheumatology CONSULTATION Date of Service: 12/09/2024 Patient: Elsa Pugh Medical Record: [id number] Primary Care Physician: Gabriela Linda MD Last Rheumatology visit: None at [facility] Referring Provider: Gabriela Linda [address] [facility] [address] Elsa Pugh is here today specifically for consultation of my opinion in regards to the chiefcomplaint listed below. Correspondence will be shared today via the [employer] electronic health record or through regular mail, where applicable. Recording using Courseload software for draft documentation of the visit was discussed with the patient/authorized residential sales representative; all questions welcomed and answered. Patient/authorized residential sales representative agreed to proceed History of Present Illness HISTORY OF PRESENT ILLNESS 69-year-old woman with a history of degenerative joint disease of the spine, CAD s/p CABG, RLS, hypertension, anxiety, hyperlipidemia, obstructive sleep apnea, renal angiomyolipoma, diabetes, and asthma, here for positive SHUN. Positive SHUN: - Recent lab work revealed a positive SHUN. - Mother recently diagnosed with lupus. DJD: - Chronic joint pain in right anterior shoulder, neck, lower back, right knee, fingers(rt 3rd trigger finger, PIPs), and rt groin. - Pain is worse at rest; experiences morning stiffness lasting 5-10 minutes. - Using Tylenol PRN with 50% relief; unable to take Aleve. - History of physical therapy for back pain, but unable to complete due to degenerative discs. - Denies recent use of prednisone; previously used for sinus drainage and watery eyes. Does not recall if it helped jts. - Pain in lower back radiates downwards; bruised back during a fall in a flower bed. - Pain in hips, worse on one side, with groin pain on the other side. - Reports trigger finger in right middle finger, with pain and difficulty bending it back. Recent Falls: - Fell three times in the last couple of weeks: once leaning over in a flower bed, once falling backwards, and once falling out of bed. - Using a cane for stability; reports dizziness and feeling like leaning more than actually is. - Denies chest pain with deep breaths, but experiences shortness of breath. Dry eyes, dry mouth: - Uses artificial tears 2-3 times a day for dry eyes; reports eyes still feel dry and scratching. Ophthalmology apt coming up this year. - Reports dry mouth, with gums sticking to teeth; drinks water regularly. - Last dental visit over a year ago, with no cavities reported. Renal Angiomyolipoma: - Reports pinkish urine and frothiness, starting two days ago. - Followed by Dr. Alcaraz at [facility]. - Denies recent fevers or cough. Diagnostic Results: - Labs (September 2024): - RF: Negative - Uric Acid: 3 - SHUN: Positive - ESR: Not specified - CRP: Not specified - Imaging: - Bilateral Knee X-ray (May 2024): Right suprapatellar joint effusion, osteoarthritis - Left Foot X-ray (May 2024): Unremarkable Review of Systems ROS: As noted in history, otherwise negative. Weight Loss, Fatigue, Fever, Hair Loss, Headache, Scalp Tenderness, Jaw Claudication, h/o Scleritis/Episcleritis, h/o Iritis/Uveitis, Dry eyes, Dry Mouth, Oral/Nasal Ulcers, Epistaxis, Rash, Photosensitivity, Skin Ulcers, Purpura/Petechiae, Skin Tightening, Pleurisy, Pericarditis/Pericardial effusion, Acid Reflux, Enthesitis, Dactylitis, Raynaud's, DVT/PE, miscarriages (>T2-T3) Past Medical History PAST MEDICAL HISTORY Diagnosis Date Coronary artery disease Dr. Osorio DDD (degenerative disc disease), lumbar Essential hypertension Generalized anxiety disorder 01/15/2023 Hemorrhage of rectum and anus History of colonic polyps Hyperlipidemia Hypoglycemia, unspecified Narcolepsy ([facility]) Sleep Medicine in [place] NSTEMI (non-ST elevated myocardial infarction) ([facility]) Obesity Obstructive sleep apnea on CPAP Plantar fasciitis PMH - PAST MEDICAL HISTORY OF edema Renal angiomyolipoma 08/19/2023 left, 8mm Restless legs syndrome (RLS) S/P CABG x 4 2001 Statin intolerance Type 2 diabetes mellitus without retinopathy ([facility]) 03/06/2016 Unspecified asthma(493.90) mild intermittent, triggered by damp weather Uterine prolapse s/p hysterectomy Past Surgical History PAST SURGICAL HISTORY Procedure Laterality Date COLONOSCOPY FLX DX W/COLLJ SPEC WHEN PFRMD 10/16/2003 Colonoscopy ESOPHAGOGASTRODUODENOSCOPY TRANSORAL DIAGNOSTIC 10/16/2003 EGD LAPS ABD PRTM&OMENTUM DX W/WO SPEC BR/WA SPX Laparoscopy PAST SURGICAL HISTORY OF 01/15/2015 4 new stents were placed PAST SURGICAL HISTORY OF 17 stents PAST SURGICAL HISTORY OF 2001 CABGx4 PAST SURGICAL HISTORY OF 04/2023 PCI of SVG to RPDA with 2 LENA implanted TONSILLECTOMY PRIMARY/SECONDARY <AGE 11 Tonsillectomy TOTAL ABDOMINAL HYSTERECT W/WO RMVL TUBE OVARY Hysterectomy, ZAKI Family History FAMILY HISTORY Problem Relation Age of Onset other (colon polyps) Father Diabetes Father Heart disease Father Diabetes Sister other (rheumatoid arthritis) Sister Anxiety disorder Sister Heart Attack Sister No Known Problems Maternal Grandmother No Known Problems Maternal Grandfather No Known Problems Paternal Grandmother No Known Problems Paternal Grandfather Drug abuse Son No Known Problems Daughter Social History Social History Tobacco Use Smoking status: Former Current packs/day: 0.00 Average packs/day: 0.5 packs/day for 27.0 years (13.5 ttl pk-yrs) Types: Cigarettes Start date: 1970 Quit date: 1997 Years since quittin.4 Smokeless tobacco: Never Vaping Use Vaping status: Never Used Substance Use Topics Alcohol use: Yes Comment: 2-3 drinks per month Drug use: No Current Medications Current Outpatient Medications Medication Sig amLODIPine (NORVASC) 5 mg tablet Take 1 tablet by mouth once daily. citalopram (CELEXA) 40 mg tablet Take 1 tablet by mouth once daily. aspirin, enteric coated (ASPIRIN, ENTERIC COATED) 81 mg EC tablet Take 1 tablet by mouth once daily. evolocumab 140 mg/mL subcutaneous pen injector (REPATHPug PharmCLICK) Inject 140 mg subcutaneously every 2 weeks. SITagliptin phosphate (JANUVIA) 50 mg tablet Take 1 tablet by mouth once daily. pregabalin (LYRICA) 150 mg capsule TAKE 1 CAPSULE BY MOUTH TWICE DAILY AT SUPPER AND BEDTIME blood sugar diagnostic (BLOOD GLUCOSE TEST) test strip Test blood sugar(s) 2 times daily. Dx: Type 2 DM - Controlled E11.9 Insulin: No Lancets Test blood sugar(s) 2 times daily. Dx: Type 2 DM - Controlled E11.9 Insulin: No albuterol HFA (PROVENTIL HFA, VENTOLIN HFA) 90 mcg/actuation inhaler Inhale 2 Puffs as instructed every 4 hours as needed for wheezing/shortness of breath. CPAP/BIPAP/OTHER Type .CPAPSettings into a note to see current settings/supplies/DME information. fenofibrate nanocrystallized (TRICOR) 145 mg tablet Take 1 tablet by mouth once daily. metoprolol succinate ER (TOPROL XL) 25 mg 24 hr tablet Take 0.5 tablets by mouth once daily. promethazine (PHENERGAN) 25 mg tablet Take 1 tablet by mouth every 6 hours as needed for nausea/vomiting. (Patient taking differently: Take 25 mg by mouth every 6 hours as needed for nausea/vomiting.daily) clopidogrel (PLAVIX) 75 mg tablet Take 75 mg by mouth once daily. isosorbide mononitrate ER (IMDUR) 60 mg 24 hr tablet Take 90 mg by mouth once daily. pantoprazole DR (PROTONIX) 40 mg tablet Take 1 tablet by mouth once daily. Take on empty stomach, 1/2 hr before meal. cholecalciferol (VITAMIN D-3) 50 mcg (2,000 unit) tablet Take 2,000 Units by mouth once daily. (Patient taking differently: Take 1,000 Units by mouth once daily.) CPAP/BIPAP/OTHER Formal mask fitting to consider smaller FFM like dreamwear due to dry eyes and supplies for bipap 13/8cmH2O DME [facility] CPAP/BIPAP/OTHER Replacement auto bipap 13/8 with PS of 5cmH2O DME [facility] CPAP/BIPAP/OTHER Settings decrease to autobipap 13/8cmH2O DME [employer] BIPAP DME change for supplies. Pt has a Resmed Auto BiPAP IPAP max 18, EPAP min 6 CM H2O, PS 5 cmH2O. mask, filters, heated humidity & tubing, [employer] supplies. LADAN G47.33 red yeast rice 600 mg tab ascorbic acid, vitamin C, (VITAMIN C) 500 mg tablet Take 500 mg by mouth daily at bedtime. nitroglycerin sublingual (NITROQUICK) 0.4 mg SL tablet Dissolve 0.4 mg under the tongue. MAGNESIUM ORAL Take 300 mg by mouth twice daily. some days takes three tablets ranolazine ER (RANEXA) 500 mg 12 hr tablet Take 1,000 mg by mouth twice daily. metFORMIN (GLUCOPHAGE) 1,000 mg tablet Take 1 tablet by mouth two times a day with meals. Labs Latest Ref Rng & Units 07/02/2023 10/30/2023 02/19/2024 10/07/2024 CBC WBC 3.70 - 11.00 k/uL 7.67 6.51 7.68 6.58 Hemoglobin 11.5 - 15.5 g/dL 10.5 10.7 12.3 11.4 Hematocrit 36.0 - 46.0 % 33.6 34.3 39.4 36.2 Platelet Count 150 - 400 k/uL 251 279 332 283 Abs Neut (ANC) 1.45 - 7.50 k/uL 4.76 3.62 3.91 Abs Lymph 1.00 - 4.00 k/uL 2.03 2.00 1.93 Latest Ref Rng & Units 08/14/2023 10/30/2023 05/13/2024 10/07/2024 CMP Sodium 136 - 144 mmol/L 137 139 140 140 Potassium 3.7 - 5.1 mmol/L 4.2 4.5 4.3 4.3 Chloride 98 - 107 mmol/L 101 103 102 105 CO2 22 - 30 mmol/L 28 27 28 23 Glucose 74 - 99 mg/dL 135 184 257 107 BUN 7 - 21 mg/dL 23 18 16 16 Creatinine 0.58 - 0.96 mg/dL 1.25 1.11 0.91 1.09 Calcium 8.5 - 10.2 mg/dL 9.1 9.5 9.2 9.5 AST 13 - 35 U/L 16 19 15 17 ALT 7 - 38 U/L 10 14 13 11 Alkaline Phosphatase 34 - 123 U/L 32 38 57 35 Latest Ref Rng & Units 10/07/2024 Uric Acid Uric Acid 2.5 - 6.6 mg/dL 3.0 Latest Ref Rng & Units 10/07/2024 ESR, WSR WSR 0 - 20 mm/hr 8 Latest Ref Rng & Units 10/07/2024 CRP CRP <0.9 mg/dL <0.3 Latest Ref Rng & Units 10/28/2001 CK CK 30 - 220 U/L 1227 Latest Ref Rng & Units 10/07/2024 RF and CCP Rheumatoid Factor <16 IU/mL <10 Latest Ref Rng & Units 12/03/2022 07/02/2023 08/15/2023 02/17/2024 Urinalysis Protein, Urine Negative 1+ Trace Negative PROTEIN UA (POCT) Negative mg/dL Negative RBC, Urine 0-2 /HPF 3-5 /HPF 0-2 /HPF 0-2 /HPF Imaging Last XR Chest - Impression Only XR CHEST 2V FRONTAL/LAT Exam End: 04/08/2024 8:17 AM (Final result) Impression: IMPRESSION: No acute radiographic abnormality in the lungs. Borderline cardiomegaly. ... I have personally reviewed and analyzed the relevant labs and imaging as listed above. Health Maintenance Current Immunizations Reviewed on 12/09/2024 Name Date COVID-19 vaccine, monovalent ([email or web address].CM) 12/12/2020, 11/21/2020 diphtheria tetanus (DT) vaccine, pediatric 03/17/2003 influenza (HD-IIV3) vaccine 05/06/2024, 03/17/2019 influenza (HD-IIV4) vaccine 02/20/2023, 03/30/2022, 04/14/2021, 04/06/2020 influenza (IIV4) vaccine 03/21/2017 novel influenza (Z0Q5-44) vaccine 04/26/2009 pneumococcal (PCV13) vaccine 04/06/2020 pneumococcal (PCV20) vaccine 05/06/2024 pneumococcal (PPV23) vaccine 09/14/2018 respiratory syncytial virus (RSV) vaccine, adjuvanted 04/20/2023 Physical Exam GENERAL APPEARANCE: Well groomed. Alert and oriented x 3. In no distress. VITAL SIGNS: BP 151/42 Pulse 48 Temp (Src) 97.6 (Temporal) Ht 5' 4.567 (1.64m) Wt 203 lb 11.3 oz (92.4kg) BMI 34.35 kg/(m^2). Physical exam: SKIN: No rash, thickening, nodules, discoloration. Nails normal. EYES: PERRL, EOMI HENT: Normal external examination of the ears and nose, lips, oropharynx and tongue. No oropharyngeal lesions, exudate, or sores. NECK: No mass or asymmetry. RESPIRATORY: Normal respiratory effort. Clear to auscultation. CARDIOVASCULAR: Heart RRR without gallop, murmur, or rub. No edema. ABDOMEN: Soft, BS normal. No bruits, No tenderness, mass, or hepatosplenomegaly. NEUROLOGIC: No facial droop. Sensory exam normal. MUSCULOSKELETAL EXAMINATION: Soft tissue tender points: None Motor exam: Normal bulk and tone. Spine: Cervical, thoracic, lumbar spine: No visible abnormalities. TTP at L spine. SI Joints: No tenderness to palpation. Upper extremities: Shoulders, elbows, wrists, hands: Rt 3rd trigger finger. TTP trigger finger, 2,3 PIPs, rt anterior shoulder. Full ROM in all nunez, no tenderness to palpation. No swelling or effusion. Lower extremities: Hips, knees, ankles, feet: Rt knee with mild Ttp(s/p meniscal injury). Full ROM without pain. Negative log roll. Negative patellar crepitus. Non-tender achillis. No MTP swelling. 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 # Positive SHUN (antinuclear antibody) (R76.8) Elsa Pugh has a positive SHUN; the positive SHUN is of unknown clinical significance. Positive ANAs increase with age, and by age 80 approximately 30% of patient's will be SHUN positive. In addition, positive ANAs tend to run in families. Titers, even at 1:320 may be seen in approximately 3% of the healthy population. The patient does not meet criteria for SLE. A small percentage of apparently healthy patients with no history or physical manifestation of lupus, who otherwise have positive autoantibodies, go on to develop lupus. - Ordered additional serological tests to further evaluate positive SHUN. # Trigger middle finger of right hand (M65.331) Trigger finger noted in the right middle finger, causing pain and stiffness. - Referral to occupational therapy for hand exercises. - Discussed potential for corticosteroid injection if symptoms persist. Pt deferred. # Sicca syndrome (HCC) (M35.00) Symptoms of dry eyes and mouth reported. Uses artificial tears 2-3 times daily and drinks water frequently. Last ophthalmology visit in May of the previous year. - labs as below - Advised to schedule follow-up with literacy tutor. - Continue use of artificial tears and maintain hydration. # Arthritis pain (M19.90) Multiple joint pains including right shoulder, neck, lower back, right knee, fingers, and hips. X-rays show osteoarthritis in knees and unremarkable findings in the left foot. - Continue Tylenol as needed for pain management. Helps >50% pain. - Referral to occupational therapy for hand exercises to strengthen muscles around the joints and manage trigger finger. - Also interested in pain management. She has relief with marijuana and would like to pursue a medical card. I said I am unsure of providers who do this and directed her to call and find out prior toscheduling. # Spondylosis of lumbar region without myelopathy or radiculopathy (M47.816) Chronic lower back pain with recent exacerbation due to falls. MRI of the spine in 2022 showed degenerative changes. - Referral to pain mngt # Renal angiomyolipoma (D17.71) History of renal angiomyolipoma, currently monitored by Dr. Alcaraz at [facility]. 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 Alcaraz for further evaluation. Orders this visit: Office Visit on 12/09/24 SHUN BY IFA WITH REFLEX ANTI MERLY ID C3 COMPLEMENT C4 COMPLEMENT RHEUMATOID FACTOR *Canceled* CCP ANTIBODY IGG PROTEIN / CREATININE RATIO CREATINE KINASE/CK *Canceled* CONSULT TO RHEUM/IMMUN DISEASE CONSULT TO DRYWALL SANDER CONSULT TO PAIN MGT Return in about 8 weeks (around 02/03/2025). I spent a total of 60 minutes on the date of the service which included preparing to see the patient, [id number] patient care, completing clinical documentation, obtaining and/or reviewing separately obtained history, performing a medically appropriate examination, counseling and educating the pat ient/family/caregiver. Carmencita Caldera MD Rheumatology Date: December 09, 2024 Time: 12:20 PM The above reflects my independent exam and review. I saw and examined the patient myself personally. Parts of the HPI and impression/plan may have been copied from my personal previous clinical note and remain pertinent. Current changes have been made and documented today. Other parts of data were deleted if not relevant for today. Plan as outlined. [facility] Tele[facility] encounter Note* Telephone Encounter - Amanda Ma LPN - 12/04/2024 11:59 AM EDT Images from the original note were not included. Electronic PA rec'd for repatha. This was approved. Pharmacy notified. Prior authorization approved Payer: [employer] [phone] Note from payer: CaseId:[id number];Status:Approved;Review Type:Prior Auth;Coverage Start Date:11/04/2024;Coverage End Date:12/04/2025; Approval Details Authorized from November 04, 2024 to December 04, 2025 Electronic appeal: Not supported View History Medication Being Authorized evolocumab 140 mg/mL subcutaneous pen injector (REPATHA SURECLICK) Inject 140 mg subcutaneously every 2 weeks. Dispense: 8 each Refills: 1 Start: 10/12/2024 Class: Normal Diagnoses: Mixed hyperlipidemia, S/P CABG x 4 This order has been released to its destination. To be filled at: [address] [address] [place] [address] [facility]06-20-2025 Miscellaneous Notes* Telephone Encounter - Amanda Ma LPN - 12/04/2024 11:59 AM EDT Images from the original note were not included. Electronic PA rec'd for repatha. This was approved. Pharmacy notified. Prior authorization approved Payer: [employer] [phone] Note from payer: CaseId:[id number];Status:Approved;Review Type:Prior Auth;Coverage Start Date:11/04/2024;Coverage End Date:12/04/2025; Approval Details Authorized from November 04, 2024 to December 04, 2025 Electronic appeal: Not supported View History Medication Being Authorized evolocumab 140 mg/mL subcutaneous pen injector (REPATHA SURECLICK) Inject 140 mg subcutaneously every 2 weeks. Dispense: 8 each Refills: 1 Start: 10/12/2024 Class: Normal Diagnoses: Mixed hyperlipidemia, S/P CABG x 4 This order has been released to its destination. To be filled at: [facility] [address] [place] [id number] [facility] [phone] [id number] documented in this encounterMarietta [facility]05-29-2025 Instructions* Patient Instructions* Anay Lawrence APRN.JUANITA - 11/12/2024 1:10 PM EDT - Continue your aspirin and Plavix exactly as prescribed. - For your concussion-related headache, rest your brain: spend time lying quietly without reading, screen time, TV, driving, or work. Gradually reintroduce light activities (e.g., brief reading, thenTV) and stop if symptoms worsen. - Take Tylenol for pain relief; do not use ibuprofen or other NSAIDs. Apply ice to the tender spot on your head and use heat or ice on your lower back as needed. - Use your cane whenever you walk to reduce dizziness and prevent falls. - Change positions slowly--avoid standing up or bending over quickly. - Call [facility] to schedule your annual eye exam. - Follow up with your business lawyer about your recent chest pain and ongoing dizziness. - Attend your upcoming rheumatology appointment as planned. - Return to this office in January to review your recovery; if your headache worsens significantly or you develop new symptoms (facial drooping, double vision, increased confusion, vomiting), go to the ER immediately. documented in this encounterM[facility]05-29-2025 [facility] History of Present illness Narrative* Anay Lawrence APRN.JUANITA - 11/12/2024 12:47 PM EDT 11/12/2024 Patient presents with: ED Follow-up: Was told had concussion from fall she had. Having headaches still some vomiting and vision changes. Sees [facility] and is due to go back. Went to [facility] ER. Recording using ambient HDmessaging software for draft documentation of the visit was discussed with the patient/authorized residential sales representative; all questions welcomed and answered. Patient/authorized residential sales representative agreed to proceed SUBJECTIVE: This is a 69 year old that is here today for Above Complaints. Chest Pain: - Presented to the ER last Saturday with right-sided chest pain, a new location for her. - Took two nitroglycerin tablets at work, which alleviated the chest pain but contributed to a headache. - ER workup included troponin levels and EKG, both of which were normal. - Denies any current chest pain. Head Trauma: - Fell twice within minutes about two weeks ago while working in the garden, hitting her head both times. - First fall resulted in hitting her head on a wooden board; second fall involved hitting her head on the ground and a catwalk. - Did not seek immediate medical attention, believing she was fine. - Developed a headache and began vomiting the same day as the chest pain, prompting the ER visit. - ER performed a CT scan of the head, which showed no intracranial hemorrhage but suggested a concussion based on symptoms. - Currently experiencing persistent headaches, described as an ache, primarily in the back of the head. - Taking Tylenol for pain with no relief; unable to take ibuprofen. - Reports blurry vision at times. Did have some confusion - Denies any lacerations, bruising, or swelling on the head. - Using a cane for stability to prevent further falls. Back Pain: - Reports severe back pain, both chronic and new lower back pain from the fall. - ER performed X-rays of the lower back, which showed no fractures but indicated bruising. - Has a history of degenerative disc disease and has tried physical therapy and injections with no relief. - Denies any visible bruising on the back but reports internal bruising as noted by the ER physician. Cardiovascular History: - Extensive history of CAD with multiple stents placed. - Currently taking Plavix and aspirin. - Has experienced dizziness and balance issues, which worsened after the recent falls. - No recent falls since the initial incidents. - Denies any new episodes of feeling like she is going to pass out, but reports lightheadedness anddizziness. Available ER records reviewed PAST MEDICAL HISTORY Diagnosis Date Coronary artery disease Dr. Osorio DDD (degenerative disc disease), lumbar Essential hypertension Generalized anxiety disorder 01/15/2023 Hemorrhage of rectum and anus History of colonic polyps Hyperlipidemia Hypoglycemia, unspecified Narcolepsy ([facility]) Sleep Medicine in [place] NSTEMI (non-ST elevated myocardial infarction) ([facility]) Obesity Obstructive sleep apnea on CPAP Plantar fasciitis PMH - PAST MEDICAL HISTORY OF edema Renal angiomyolipoma 08/19/2023 left, 8mm Restless legs syndrome (RLS) S/P CABG x 4 2001 Statin intolerance Type 2 diabetes mellitus without retinopathy ([facility]) 03/06/2016 Unspecified asthma(493.90) mild intermittent, triggered by damp weather Uterine prolapse s/p hysterectomy ALLERGIES Asa [Salicylates], Augmentin [Amoxicillin-Pot Clavulanate], Belladonna [Belladonna Alkaloids], Benazepril, Butazolidin [Phenylbutazone], Carbidopa, Darvocet-N 100 [Propoxyphene N-Acetaminophen], Doxycycline, Guaifenesin-Sodium Citrate, Ibuprofen, Jardiance [Empagliflozin], Levaquin [Levofloxacin], Lopid [Gemfibrozil], Niacin, Niaspan [Niacin (Antihyperlipidemic)], Penicillins, Provigil [Modafinil], Ramipril, Upudave-Agc-Hkt Reductase Inhibitors, Sulfa (Sulfonamide Antibiotics), and Tramadol MEDICATIONS Current Outpatient Medications Medication Sig citalopram (CELEXA) 40 mg tablet Take 1 tablet by mouth once daily. aspirin, enteric coated (ASPIRIN, ENTERIC COATED) 81 mg EC tablet Take 1 tablet by mouth once daily. evolocumab 140 mg/mL subcutaneous pen injector (REPATHA SURECLICK) Inject 140 mg subcutaneously every 2 weeks. SITagliptin phosphate (JANUVIA) 50 mg tablet Take 1 tablet by mouth once daily. pregabalin (LYRICA) 150 mg capsule TAKE 1 CAPSULE BY MOUTH TWICE DAILY AT SUPPER AND BEDTIME albuterol HFA (PROVENTIL HFA, VENTOLIN HFA) 90 mcg/actuation inhaler Inhale 2 Puffs as instructed every 4 hours as needed for wheezing/shortness of breath. metFORMIN (GLUCOPHAGE) 1,000 mg tablet Take 1 tablet by mouth two times a day with meals. fenofibrate nanocrystallized (TRICOR) 145 mg tablet Take 1 tablet by mouth once daily. metoprolol succinate ER (TOPROL XL) 25 mg 24 hr tablet Take 0.5 tablets by mouth once daily. clopidogrel (PLAVIX) 75 mg tablet Take 75 mg by mouth once daily. isosorbide mononitrate ER (IMDUR) 60 mg 24 hr tablet Take 90 mg by mouth once daily. pantoprazole DR (PROTONIX) 40 mg tablet Take 1 tablet by mouth once daily. Take on empty stomach, 1/2 hr before meal. cholecalciferol (VITAMIN D-3) 50 mcg (2,000 unit) tablet Take 2,000 Units by mouth once daily. BIPAP DME change for supplies. Pt has a [employer] Auto BiPAP IPAP max 18, EPAP min 6 CM H2O, PS 5 cmH2O. mask, filters, heated humidity & tubing, [employer] supplies. LADAN G47.33 red yeast rice 600 mg tab ascorbic acid, vitamin C, (VITAMIN C) 500 mg tablet Take 500 mg by mouth daily at bedtime. MAGNESIUM ORAL Take 300 mg by mouth twice daily. some days takes three tablets ranolazine ER (RANEXA) 500 mg 12 hr tablet Take 1,000 mg by mouth twice daily. blood sugar diagnostic (BLOOD GLUCOSE TEST) test strip Test blood sugar(s) 2 times daily. Dx: Type 2 DM - Controlled E11.9 Insulin: No Lancets Test blood sugar(s) 2 times daily. Dx: Type 2 DM - Controlled E11.9 Insulin: No CPAP/BIPAP/OTHER Type .CPAPSettings into a note to see current settings/supplies/DME information. promethazine (PHENERGAN) 25 mg tablet Take 1 tablet by mouth every 6 hours as needed for nausea/vomiting. CPAP/BIPAP/OTHER Formal mask fitting to consider smaller FFM like dreamwear due to dry eyes and supplies for bipap 13/8cmH2O DME [facility] CPAP/BIPAP/OTHER Replacement auto bipap 13/8 with PS of 5cmH2O DME [facility] CPAP/BIPAP/OTHER Settings decrease to autobipap 13/8cmH2O DME [employer] nitroglycerin sublingual (NITROQUICK) 0.4 mg SL tablet Dissolve 0.4 mg under the tongue. No current facility-administered medications for this visit. Medications and allergies reviewed by this provider. SOCIAL HISTORY Social History Tobacco Use Smoking status: Former Current packs/day: 0.00 Average packs/day: 0.5 packs/day for 27.0 years (13.5 ttl pk-yrs) Types: Cigarettes Start date: 1970 Quit date: 1997 Years since quittin.4 Smokeless tobacco: Never Vaping Use Vaping status: Never Used Substance Use Topics Alcohol use: Yes Comment: 2-3 drinks per month Drug use: No REVIEW OF SYSTEMS All other reviewed and negative other than HPI. OBJECTIVE: BP 128/72 Pulse (!) 53 Wt 91.6 kg (202 lb) SpO2 94% BMI 33.61 kg/m . Vital signs reviewed by this provider. APPEARANCE Well appearing, alert, in no acute distress, well-hydrated, well nourished. EYES PERRLA, conjunctiva and sclera normal. EARS External ears normal, canals clear NECK Supple, no adenopathy; thyroid symmetric, normal size, no bruits HEART RRR with normal S1 and S2, no murmurs, no gallops, no JVD appreciated LUNG clear to auscultation EXTREMITIES Extremities normal, No deformities, No skin discoloration, and No edema NEURO Awake, alert and oriented x 3, Cranial nerves II-XII grossly intact, Reflexes symmetrical, Normal gait, and negative findings: speech normal, mental status intact, cranial nerves 2-12 intact, Romberg negative, muscle tone normal, muscle strength normal, rapid alternating movements normal, finger to nose normal, sensation to light touch and pinprick normal, reflexes normal and symmetric, plantar response downgoing bilaterally, normal tandem gait SKIN Skin color, texture, turgor normal, no suspicious rashes or lesions to exposed skin Depression Screening Never done Hepatitis C Screening Never done Shingrix Vaccine(1 of 2) Never done DTaP,Tdap,Td Vaccine(2 - Tdap) due on 03/17/2013 Advance Directive Discussion Never done Colorectal Cancer Screening due on 11/11/2024 Dilated Retinal Exam due on 11/13/2024 Mammogram Screening due on 12/17/2024 Covid-19 Vaccine( season) due on 05/06/2025 HbA1C due on 02/02/2025 Diabetic Foot Exam due on 05/06/2025 Urine Albumin:Creatinine Ratio due on 05/13/2025 LDL Cholesterol due on 05/13/2025 Annual PCP Team Chronic Disease Visit due on 10/07/2025 Serum Creatinine due on 10/07/2025 Hemoglobin/Hematocrit due on 10/07/2025 BP Controlled (<130/80) due on 10/07/2025 Bone Density Screening Completed Influenza Vaccine Completed RSV Vaccine Completed Pneumococcal Vaccine: 50+ Completed 1. Postconcussional syndrome (F07.81) - Recent head injury with subsequent CT scan showing no intracranial hemorrhage. - Persistent headaches, mild confusion, and blurred vision noted. - Advised strict brain rest, including avoiding reading, working, watching television, and driving. - Gradual reintroduction of activities as symptoms improve. - Continue Tylenol for pain management; apply ice to the head. - Monitor for worsening symptoms such as severe headaches, facial drooping, increased confusion, orvision changes; nausea, vomiting or gait difficulty instructed to return to the ER if these occur. - Follow-up with an eye doctor for blurred vision. - if headaches persist return to office and will order MRI - Scheduled follow-up appointment in January. 2. Contusion of lower back, subsequent encounter (S30.0XXD) - Lower back pain secondary to contusion; no fractures on x-ray. - Continue Tylenol for pain management; use heat or ice as needed. - Declined physical therapy due to previous experience and current pain. 3. Dizziness and giddiness (R42) - Worsened dizziness and balance issues since the fall. - Advised to use a cane for stability when ambulating. - Avoid sudden movements such as bending over or standing up quickly. - PT for balance offered - declined at this time - Follow-up with business lawyer Dr. Osorio due to extensive cardiac history and recent chest pain. 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 Patient advised if symptoms do not improve or if symptoms worsen sooner, to contact their primary care physician. Potential red flag symptoms discussed with the patient. Reviewed appropriate action plan to take if red flag symptoms occur. Patient agreeable to treatment plan. I spent a total of 30 minutes on the date of the service which included preparing to see the patient, [id number] patient care, completing clinical documentation, obtaining and/or reviewing separately obtained history, performing a medically appropriate examination, and counseling and educating the patient/family/caregiver. documented in this encounterMari[facility]05-20-2025 Radiology Diagnostic study note [facility] Imaging Services [address] [place] [id number] Chest PA and Lateral MR#: [id number] Acct: [id number] Name: DAPHNEYELSA HANNA Rep #: [id number] 4 : 1955 F 69 From: Jordan Ling MD PCP: Dr. Redd Linda MD Status: REG ER Study:Chest PA and Lateral Date of Exam: 11/03/24 Exam# [id number] Ordering Dr: Jamal Salcedo DO PROCEDURE: CHEST PA AND LATERAL 11/03/2024 REASON FOR EXAM: CP, COUGH TECHNIQUE: Frontal and lateral views of the chest. COMPARISON: None FINDINGS: Hardware: EKG electrodes are seen. Heart: Prior midline sternotomy and coronary artery bypass surgery. Heart size upper limits of normal. Mediastinum: The mediastinal contour is unremarkable. Lungs: The lungs are clear. Bones: The bones are unremarkable. RAD/Chest PA and Lateral IMPRESSION: Heart size upper limits of normal. No acute abnormality is seen. Reading Location: [place] [address] CC: Dr. Redd Linda MD; Dr. Jamal Salcedo DO ~ County Attorney: Signed [facility]05-20-2025 Radiology Diagnostic study note [facility] Imaging Services [address] [place] [id number] Brain/Head without Contrast MR#: [id number] Acct: [id number] Name: ELSA PUGH Rep #: [id number] 5 : 1955 F 69 From: Amira Salcedo MD PCP: Dr. Redd Linda MD Status: REG ER Study:Brain/Head without Contrast Date of Exa m: 11/03/24 Exam# [id number] Ordering Dr: Jamal Salcedo DO EXAM: CT Head Without Intravenous Contrast CLINICAL INDICATION: HEAD INJURY TECHNIQUE: Axial computed tomography images of the head/brain without intravenous contrast. This CTexam was performed using one or more of the following dose reduction techniques: automated exposure control, adjustment of the mA and/or kV according to patient size, and/or use of iterative reconstruction technique. COMPARISON: No relevant prior studies available. FINDINGS: BRAIN AND EXTRA-AXIAL SPACES: No acute intracranial hemorrhage, midline shift or mass effect. If symptoms persist, further evaluation with MRI is recommended. Mild areas of decreased attenuation in the deep cerebral white matter are consistent with mild small vessel ischemic/degenerative changes. BONES/JOINTS: Unremarkable. No acute fracture. SOFT TISSUES: Unremarkable. SINUSES: Unremarkable as visualized. No acute sinusitis. MASTOID AIR CELLS: Unremarkable as visualized. No mastoid effusion. CT/Brain/Head without Contrast IMPRESSION: 1. No acute intracranial hemorrhage, midline shift or mass effect. If symptoms persist, further evaluation with MRI is recommended. 2. Mild small vessel ischemic/degenerative changes. Reading [facility] CC: Dr. Redd Linda MD; Dr. Jamal Salcedo DO ~ County Attorney: Signed [facility]05-20-2025 Radiology Diagnostic study note [facility] Imaging Services [address] [place] [id number] Sacrum-Coccyx min 2 Views MR#: [id number] Acct: [id number] Name: ELSA PUGH Rep #: [id number] 3 : 1955 F 69 From: Jordan Ling MD PCP: Dr. Redd Linda MD Status: REG ER Study:Sacrum-Coccyx min 2 Views Date of Exam: 11/03/24 Exam# [id number] Ordering Dr: Jamal Salcedo DO PROCEDURE: SACRUM-COCCYX MIN 2 VIEWS 11/03/2024 REASON FOR EXAM: INJURY TECHNIQUE: AP and lateral view(s) of the sacrum and coccyx. COMPARISON: None FINDINGS: Bones: Unremarkable Joints: Minimal degenerative changes. Other: RAD/Sacrum-Coccyx min 2 Views IMPRESSION: Mild degenerative changes of the sacroiliac joints. No fracture is seen. Reading Location: [facility] CC: Dr. Redd Linda MD; Dr. Jamal Salcedo DO ~ County Attorney: Signed [facility]05-06-2025 Telephone encounter Note* Telephone Encounter - Barry Eduardo RN - 10/20/2024 2:26 PM EDT Jessica Fry Pharmacist called and is notified of providers message and instructions. She voices understanding and will dispense medication for Pt. Barry Eduardo RN [facility]05-06-2025 Miscellaneous Notes* Telephone Encounter - Barry Eduardo RN - 10/20/2024 2:26 PM EDT Jessica Fry Pharmacist called and is notified of providers message and instructions. She voices understanding and will dispense medication for Pt. Barry Eduardo RN * Telephone Encounter - Gabriela Linda MD - 10/20/2024 12:18 PM EDT She has been on this dosage for years. Tolerating well. Continue current regimen. Can discuss changing dosage at future OV. * Telephone Encounter - Jenna Blair LPN - 10/20/2024 10:46 AM EDT Ge, a pharmacist with [facility], calls today to report that there are a couple of warnings that show up with pt's rx for citalopram 40 mg daily. 1) Recommends lower dose in elderly 2) Long QT Syndrome Ge is requesting a call back stating dr reviewed this and either is ok with filling of originalrx or changing rx. Invoice # [id number] needs to be given when calling back. Jenna Blair LPN documented in this encounterMarietta [facility]05-06-2025 Telephone encounter Note * Telephone Encounter - Gabriela Linda MD - 10/20/2024 12:18 PM EDT She has been on this dosage for years. Tolerating well. Continue current regimen. Can discuss changing dosage at future OV. [facility]05-06-[facility] Telephone encounter Note* Telephone Encounter - Jenna Blair LPN - 10/20/2024 10:46 AM EDT Ge, a pharmacist with [facility], calls today to report that there are a couple of warnings that show up with pt's rx for citalopram 40 mg daily. 1) Recommends lower dose in elderly 2) Long QT Syndrome Ge is requesting a call back stating dr reviewed this and either is ok with filling of originalrx or changing rx. Invoice # [id number] needs to be given when calling back. Jenna Blair LPN [facility]05-06-2025 Telephone encounter Note* Telephone Encounter - Darcy Alonzo LPN - 10/20/2024 7:15 AM EDT Prescription Refill Information The patient has been identified by name and date of : Yes Caregiver verified no other encounters exist for this prescription request: Yes Caregiver confirmed with patient/requestor that no other refills are due, in the near future, with this provider at this time: Yes The last office visit in the department: 10/07/2024 Does the patient have a future office visit with this provider/department: Yes Requested Prescriptions Pending Prescriptions Disp Refills citalopram (CELEXA) 40 mg tablet 90 tablet 1 Sig: Take 1 tablet by mouth once daily. Darcy Alonzo LPN October 20, 2024 7:15 AM [facility]05-06-2025 Miscellaneous Notes* Telephone Encounter - Darcy Alonzo LPN - 10/20/2024 7:15 AM EDT Prescription Refill Information The patient has been identified by name and date of : Yes Caregiver verified no other encounters exist for this prescription request: Yes Caregiver confirmed with patient/requestor that no other refills are due, in the near future, with this provider at this time: Yes The last office visit in the department: 10/07/2024 Does the patient have a future office visit with this provider/department: Yes Requested Prescriptions Pending Prescriptions Disp Refills citalopram (CELEXA) 40 mg tablet 90 tablet 1 Sig: Take 1 tablet by mouth once daily. Darcy Alonzo LPN October 20, 2024 7:15 AM documented in this encounterMarietta [facility]05-06-2025 Telephone encounter Note * Telephone Encounter - Elvia Middleton LPN - 10/20/2024 7:09 AM EDT Prescription Refill Information The patient has been identified by name and date of : Yes Caregiver verified no other encounters exist for this prescription request: Yes Caregiver confirmed with patient/requestor that no other refills are due, in the near future, with this provider at this time: Yes The last office visit in the department: 10/07/2024 Does the patient have a future office visit with this provider/department: Yes Requested Prescriptions Pending Prescriptions Disp Refills aspirin, enteric coated (ASPIRIN, ENTERIC COATED) 81 mg EC tablet 90 tablet 1 Sig: Take 1 tablet by mouth once daily. Elvia Middleton LPN October 20, 2024 7:09 AM [facility]05-06-2025 Miscellaneous Notes* Telephone Encounter - Elvia Middleton LPN - 10/20/2024 7:09 AM EDT Prescription Refill Information The patient has been identified by name and date of : Yes Caregiver verified no other encounters exist for this prescription request: Yes Caregiver confirmed with patient/requestor that no other refills are due, in the near future, with this provider at this time: Yes The last office visit in the department: 10/07/2024 Does the patient have a future office visit with this provider/department: Yes Requested Prescriptions Pending Prescriptions Disp Refills aspirin, enteric coated (ASPIRIN, ENTERIC COATED) 81 mg EC tablet 90 tablet 1 Sig: Take 1 tablet by mouth once daily. Elvia Middleton LPN October 20, 2024 7:09 AM documented in this encounterMarietta [facility] Clinic04-28-2025 Telephone encounter Note * Telephone Encounter - Tami Jacobs LPN - 10/12/2024 4:01 PM EDT Prescription Refill Information The patient has been identified by name and date of : Yes Caregiver verified no other encounters exist for this prescription request: Yes Caregiver confirmed with patient/requestor that no other refills are due, in the near future, with this provider at this time: Yes The last office visit in the department: 10/07/24 Does the patient have a future office visit with this provider/department: Yes-02/03/25 Requested Prescriptions Pending Prescriptions Disp Refills evolocumab 140 mg/mL subcutaneous pen injector (REPATHA SURECLICK) 8 each 1 Sig: Inject 140 mg subcutaneously every 2 weeks. Patient requests this be sent to [facility] for short fill and then assisted RX to [facility] Tami Jacobs LPN October 12, 2024 4:01 PM [facility]04-28-2025 Miscellaneous Notes* Telephone Encounter - Tami Jacobs LPN - 10/12/2024 4:01 PM EDT Prescription Refill Information The patient has been identified by name and date of : Yes Caregiver verified no other encounters exist for this prescription request: Yes Caregiver confirmed with patient/requestor that no other refills are due, in the near future, with this provider at this time: Yes The last office visit in the department: 10/07/24 Does the patient have a future office visit with this provider/department: Yes-02/03/25 Requested Prescriptions Pending Prescriptions Disp Refills evolocumab 140 mg/mL subcutaneous pen injector (REPATHA SURECLICK) 8 each 1 Sig: Inject 140 mg subcutaneously every 2 weeks. Patient requests this be sent to [facility] for short fill and then tank terminal gauger RX to [facility] Tami Jacobs LPN October 12, 2024 4:01 PM documented in this encounterMarietta [facility]04-23-[facility] History of Present illness Narrative* Gabriela Linda MD - 10/07/2024 1:00 PM EDT Chief Complaint Patient presents with: Pain: Generalized all over but worse in bilateral arms Insomnia HPI Elsa Pugh is a 69 year old female who presents here today for Above Complaints. Patient complaining of myalgias in her forearms, upper thighs, and hands and insomnia which has been going on for a few months, but worse in the last few weeks. States that she is not sure if pain inher legs could be 2/2 RLS which is managed by sleep medicine. Pain described as constant aching pain, currently 7/10. No exacerbating factors. Improved with movement. Treated with tylenol which does not help with symptoms. Has also tried heat and massage. Has not had any change in medication regimen in the last few weeks. No other obvious contributing factors. On Lyrica BID for her RLS which she states is not helping as much as when she was on it TID. Reports that she has had difficulty sleeping with the RLS and pain in her arms. Denies fever, joint pain, swelling, erythema, warmth to touch, weakness, numbness/tingling, fall/injury. Past medical history, appointments, medications, allergies reviewed. Previous Medical History PAST MEDICAL HISTORY Diagnosis Date Coronary artery disease Dr. 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, 8mm Restless legs syndrome (RLS) S/P CABG x 4 2001 Statin intolerance Type 2 diabetes mellitus without retinopathy (HCC) 03/06/2016 Unspecified asthma(493.90) mild intermittent, triggered by damp weather Uterine prolapse s/p hysterectomy Previous Surgical History PAST SURGICAL HISTORY Procedure Laterality Date COLONOSCOPY FLX DX W/COLLJ SPEC WHEN PFRMD 10/16/2003 Colonoscopy ESOPHAGOGASTRODUODENOSCOPY TRANSORAL DIAGNOSTIC 10/16/2003 EGD LAPS ABD PRTM&OMENTUM DX W/WO SPEC BR/WA SPX Laparoscopy PAST SURGICAL HISTORY OF 01/15/2015 4 new stents were placed PAST SURGICAL HISTORY OF 17 stents PAST SURGICAL HISTORY OF 2001 CABGx4 PAST SURGICAL HISTORY OF 04/2023 PCI of SVG to RPDA with 2 LENA implanted TONSILLECTOMY PRIMARY/SECONDARY <AGE 11 Tonsillectomy TOTAL ABDOMINAL HYSTERECT W/WO RMVL TUBE OVARY Hysterectomy, ZAKI Family History FAMILY HISTORY Problem Relation Age of Onset other (colon polyps) Father Diabetes Father Heart disease Father Diabetes Sister other (rheumatoid arthritis) Sister Anxiety disorder Sister Heart Attack Sister No Known Problems Maternal Grandmother No Known Problems Maternal Grandfather No Known Problems Paternal Grandmother No Known Problems Paternal Grandfather Drug abuse Son No Known Problems Daughter Patient Allergies ALLERGIES Allergen Reactions Asa [Salicylates] Vomiting Augmentin [Amoxicil* GI Upset Belladonna [Bellado* Intolerance GI upset Benazepril Cough Sep 2005 Butazolidin [Phenyl* Unknown Carbidopa Darvocet-N 100 [Pro* Intolerance HEADACHE Doxycycline Other: See Comments Patient ended up in ER with tongue and throat swelling- allergy not ruled out Guaifenesin-Sodium * Ibuprofen Rash Jardiance [Empaglif* Intolerance Vaginal itching Levaquin [Levofloxa* Other: See Comments Hallucinations anxiety numbness tingling Lopid [Gemfibrozil] Niacin Niaspan [Niacin (An* Penicillins Hives Provigil [Modafinil] Mental Status Change hallucinations Ramipril Unknown Ptuamrc-Skt-Pxn Red* Myalgia Sulfa (Sulfonamide * Tramadol Other: See Comments stroke like symptoms Current Medications Current Outpatient Medications on File Prior to Visit Medication Sig pregabalin (LYRICA) 150 mg capsule TAKE 1 CAPSULE BY MOUTH TWICE DAILY AT SUPPER AND BEDTIME blood sugar diagnostic (BLOOD GLUCOSE TEST) test strip Test blood sugar(s) 2 times daily. Dx: Type 2 DM - Controlled E11.9 Insulin: No Lancets Test blood sugar(s) 2 times daily. Dx: Type 2 DM - Controlled E11.9 Insulin: No citalopram (CELEXA) 40 mg tablet Take 1 tablet by mouth once daily. SITagliptin phosphate (JANUVIA) 50 mg tablet Take 1 tablet by mouth once daily. evolocumab 140 mg/mL subcutaneous pen injector (REPATHA SURECLICK) Inject 140 mg subcutaneously every 2 weeks. albuterol HFA (PROVENTIL HFA, VENTOLIN HFA) 90 mcg/actuation inhaler Inhale 2 Puffs as instructed every 4 hours as needed for wheezing/shortness of breath. metFORMIN (GLUCOPHAGE) 1,000 mg tablet Take 1 tablet by mouth two times a day with meals. CPAP/BIPAP/OTHER Type .CPAPSettings into a note to see current settings/supplies/DME information. fenofibrate nanocrystallized (TRICOR) 145 mg tablet Take 1 tablet by mouth once daily. metoprolol succinate ER (TOPROL XL) 25 mg 24 hr tablet Take 0.5 tablets by mouth once daily. aspirin, enteric coated (ASPIRIN, ENTERIC COATED) 81 mg EC tablet Take 1 tablet by mouth once daily. promethazine (PHENERGAN) 25 mg tablet Take 1 tablet by mouth every 6 hours as needed for nausea/vomiting. clopidogrel (PLAVIX) 75 mg tablet Take 75 mg by mouth once daily. isosorbide mononitrate ER (IMDUR) 60 mg 24 hr tablet Take 90 mg by mouth once daily. pantoprazole DR (PROTONIX) 40 mg tablet Take 1 tablet by mouth once daily. Take on empty stomach, 1/2 hr before meal. cholecalciferol (VITAMIN D-3) 50 mcg (2,000 unit) tablet Take 2,000 Units by mouth once daily. CPAP/BIPAP/OTHER Formal mask fitting to consider smaller FFM like dreamwear due to dry eyes and supplies for bipap 13/8cmH2O DME [facility] CPAP/BIPAP/OTHER Replacement auto bipap 13/8 with PS of 5cmH2O DME [facility] CPAP/BIPAP/OTHER Settings decrease to autobipap 13/8cmH2O DME [employer] BIPAP DME change for supplies. Pt has a [employer]med Auto BiPAP IPAP max 18, EPAP min 6 CM H2O, PS 5 cmH2O. mask, filters, heated humidity & tubing, [employer] supplies. LADAN G47.33 red yeast rice 600 mg tab ascorbic acid, vitamin C, (VITAMIN C) 500 mg tablet Take 500 mg by mouth daily at bedtime. nitroglycerin sublingual (NITROQUICK) 0.4 mg SL tablet Dissolve 0.4 mg under the tongue. MAGNESIUM ORAL Take 300 mg by mouth twice daily. some days takes three tablets ranolazine ER (RANEXA) 500 mg 12 hr tablet Take 1,000 mg by mouth twice daily. No current facility-administered medications on file prior to visit. Social History Social History Tobacco Use Smoking status: Former Current packs/day: 0.00 Average packs/day: 0.5 packs/day for 27.0 years (13.5 ttl pk-yrs) Types: Cigarettes Start date: 1970 Quit date: 1997 Years since quittin.3 Smokeless tobacco: Never Vaping Use Vaping status: Never Used Substance Use Topics Alcohol use: Yes Comment: 2-3 drinks per month Drug use: No Review of Symptoms REVIEW OF SYSTEMS See HPI EXAM: BP 126/62 Pulse (!) 50 Resp 16 Wt 90.4 kg (199 lb 6.4 oz) SpO2 95% BMI 33.18 kg/m General Appearance: Well appearing, alert, in no acute distress, well-hydrated, well nourished.. Skin: Skin color, texture, turgor normal, no suspicious rashes or lesions. Musculoskeletal: No joint swelling, deformity, or tenderness. TTP over forearms and upper thighs without swelling. Normal ROM of upper extremities. 5/5 strength in upper extremities. Negative phalens. Normal sensation to light touch. Health Maintenance List Depression Screening Never done Hepatitis C Screening Never done Shingrix Vaccine(1 of 2) Never done DTaP,Tdap,Td Vaccine(2 - Tdap) due on 03/17/2013 Advance Directive Discussion Never done Colorectal Cancer Screening due on 11/11/2024 Mammogram Screening due on 12/17/2024 Covid-19 Vaccine( season) due on 05/06/2025 Dilated Retinal Exam due on 11/13/2024 HbA1C due on 02/02/2025 Diabetic Foot Exam due on 05/06/2025 Urine Albumin:Creatinine Ratio due on 05/13/2025 LDL Cholesterol due on 05/13/2025 Serum Creatinine due on 05/13/2025 BP Controlled (<130/80) due on 08/05/2025 Annual PCP Team Chronic Disease Visit due on 08/20/2025 Bone Density Screening Completed Influenza Vaccine Completed RSV Vaccine Completed Pneumococcal Vaccine: 50+ Completed ASSESSMENT/PLAN: 1. Myalgias - ICD9: 729.1, ICD10: M79.10 (primary diagnosis) Unknown etiology. Suspect LE pain is 2/2 RLS. Will obtain labs as ordered and have patient reach out to neurology regarding Lyrica. May use OTC tylenol, ice/heat, stretches for pain as discussed. Will call with results. - SEDIMENTATION RATE, WESTERGREN - C-REACTIVE PROTEIN - SHUN BLOOD - URIC ACID - COMPLETE BLOOD COUNT AND DIFFERENTIAL - COMPREHENSIVE METABOLIC PANEL - RHEUMATOID FACTOR 2. RLS (restless legs syndrome) - ICD9: 333.94, ICD10: G25.81 Recheck iron level. Continue lyrica. F/u with neurology for dose adjustment. - IRON AND TIBC - FERRITIN 3. Chronic insomnia - ICD9: 780.52, ICD10: F51.04 2/2 RLS. See above. Gabriela Linda MD documented in this encounterMarietta [facility]04-23-2025 Telephone encounter Note * Telephone Encounter - Kaitlynn Noel RN - 10/07/2024 10:31 AM EDT Patient calls for generalized body pain. Bilateral arms worse than the rest. Started in May and has been getting worse. Insomnia since May as well. Nurse triage completed and recommends seeprovider within 3 days. Same day appt scheduled. Care advice reviewed with verbalized understanding. Reason for Disposition [1] MODERATE pain (e.g., interferes with normal activities) AND [2] present > 3 days Answer Assessment - Initial Assessment Questions 1. ONSET: Patient reports on-going since May but pains are becoming more bothersome. Insomnia since May as well. Patient wondering if one of her medications could be causing symptoms. Tylenol ineffective for treatment. 2. LOCATION: Entire body but bilateral arms seem to be worse. 3. SEVERITY: - MILD (1-3): doesn't interfere with normal activities to - MODERATE (4-7): interferes with normal activities or awakens from sleep 4. CAUSE: Patient is not certain. 5. FEVER: No 6. OTHER SYMPTOMS: Insomnia since May as well. No chest pain, weakness, rash, cold or flu symptoms, weight loss 7. TRAVEL: No travel history, exposures Protocols used: Muscle Aches and Body [id number] [facility]04-23-2025 Miscellaneous Notes* Telephone Encounter - Kaitlynn Noel RN - 10/07/2024 10:31 AM EDT Patient calls for generalized body pain. Bilateral arms worse than the rest. Started in May and has been getting worse. Insomnia since May as well. Nurse triage completed and recommends seeprovider within 3 days. Same day appt scheduled. Care advice reviewed with verbalized understanding. Reason for Disposition [1] MODERATE pain (e.g., interferes with normal activities) AND [2] present > 3 days Answer Assessment - Initial Assessment Questions 1. ONSET: Patient reports on-going since May but pains are becoming more bothersome. Insomnia since May as well. Patient wondering if one of her medications could be causing symptoms. Tylenol ineffective for treatment. 2. LOCATION: Entire body but bilateral arms seem to be worse. 3. SEVERITY: - MILD (1-3): doesn't interfere with normal activities to - MODERATE (4-7): interferes with normal activities or awakens from sleep 4. CAUSE: Patient is not certain. 5. FEVER: No 6. OTHER SYMPTOMS: Insomnia since May as well. No chest pain, weakness, rash, cold or flu symptoms, weight loss 7. TRAVEL: No travel history, exposures Protocols used: Muscle Aches and Body [id number] documented in this encounterMarietta [facility] Clinic04-21-2025 Telephone encounter Note * Telephone Encounter - Josie Lopez HUC - 10/05/2024 3:04 PM EDT Physician: Rita Delgado MD Call from patient requesting refill. Please E-Scribe Requested Prescriptions Pending Prescriptions Disp Refills pregabalin (LYRICA) 150 mg capsule 60 capsule 3 Sig: TAKE 1 CAPSULE BY MOUTH TWICE DAILY AT SUPPER AND BEDTIME Pharmacy Name: [facility] [address] [place] [id number] - [address] [place] [phone] [place] [id number] Josie Lopez, Household Appliance Assembler [facility]04-21-2025 Miscellaneous Notes* Telephone Encounter - Josie Lopez HUC - 10/05/2024 3:04 PM EDT Physician: Rita Delgado MD Call from patient requesting refill. Please E-Scribe Requested Prescriptions Pending Prescriptions Disp Refills pregabalin (LYRICA) 150 mg capsule 60 capsule 3 Sig: TAKE 1 CAPSULE BY MOUTH TWICE DAILY AT SUPPER AND BEDTIME Pharmacy Name: [facility] [address] [place] [id number] - [address] [place] [phone] [place] [address] [phone] [place] [id number] Josie Lopez Household Appliance Assembler documented in this encounterM[facility]03-[facility]25 Telephone encounter Note * Telephone Encounter - Seema Jeffery PA-C - 09/01/2024 12:06 PM EDT Please have her arrange appointment in person in December. The following approved medication requests have been transmitted electronically. Requested Prescriptions Signed Prescriptions Disp Refills pregabalin (LYRICA) 150 mg capsule 60 capsule 3 Sig: TAKE 1 CAPSULE BY MOUTH TWICE DAILY AT SUPPER AND BEDTIME Authorizing Provider: SEEMA JEFFERY PA-C [facility]03-18-2025 Miscellaneous Notes* Telephone Encounter - Seema Jeffery PA-C - 09/01/2024 12:06 PM EDT Please have her arrange appointment in person in December. The following approved medication requests have been transmitted electronically. Requested Prescriptions Signed Prescriptions Disp Refills pregabalin (LYRICA) 150 mg capsule 60 capsule 3 Sig: TAKE 1 CAPSULE BY MOUTH TWICE DAILY AT SUPPER AND BEDTIME Authorizing Provider: SEEMA JEFFERY PA-C * Telephone Encounter - Elizabeth Nguyen RN - 09/01/2024 11:50 AM EDT VINOD: 07/15/24 VV Sandy In Person - 08/21/23 Sandy Delgado F/U: Not Scheduled IMPRESSION: Ladan (obstructive sleep apnea) (primary encounter diagnosis) Rls (restless legs syndrome) Elsa Pugh is a 69 yo F with PMH of CBP, DM, HTN, HLD, CABG. FU on RLS and LADAN on BiPAP. Sheis using BiPAP when she is asleep but limited by her RLS symptoms which keep her awake. She is ableto fall asleep with the help of Lyrica 150mg but around midnight is up for 2 hours due to RLS. At time she will strech watch and elevate legs. It is unclear if this awakening is due to sciatica pain or RLS. She is receiving injections for her back pain through pain management in the next couple months. She has RLS sxs from awakening to bedtime worse around 4PM. Clinical Global Impression of Change ( CGI-C) Compared to the patient's condition at baseline, how much has the patient changed? No change PLAN: LADAN on BiPAP - Continue Auto Bilevel PAP IPAP 13 EPAP 5 PS 5 cmH2O. Mask: Nasal DME [employer] - Remember to clean your mask and equipment regularly, as directed. - You should be eligible for new supplies approximately every 3-6 months, depending on your insurance coverage. Contact your Durable Medical Equipment (DME) company for new supplies as needed. -Once back pain and RLS under better control hope to increase BiPAP compliance RLS -Continue Mg but increase to 500mg -Change timings of Lyrica 150mg at 4PM and BT -Last Ferritin checked 02/19/24 157 -FU 1 month post pain management appt. Og Sifuentes MD PGY-4 Sleep Medicine Fellow, [facility] [phone] Attending Note I evaluated the patient and personally participated in the nicholson components. I agree with the fellow's findings and plan as documented and have discussed the case and management of the patient's care with the fellow. Patient has not been able to use her BiPAP as well because of her restless leg. She is unsure if itis her back pain or her legs. Lyrica is not helping as well. She is going to have her back injection, but not until August. She also had her iron level drawn, and ferritin level was 157 on 02/19/2024. She takes magnesium 200 mg a day. Plan: Increase magnesium to 500 mg daily Suggest patient to call her pain provider if there is any cancellation to move up her injection time Return to sleep medicine one month after her injection. At the time will see how her RLS is , and also how her BiPAP usage might be. Discussed with patient. Medical Decision Making: Problems: Low: Stable chronic illness Moderate: 1+ chronic illnesses with change Data: Unique test result(s) reviewed: 1 Risk: Moderate: Drug management Medical Decision Making Level: 4 - Moderate Signature: Rita Delgado MD Date: 07/15/2024 Time: 1:48 PM documented in this encounterMarietta [facility]03-18-2025 Telephone encounter Note * Telephone Encounter - Elizabeth Nguyen RN - 09/01/2024 11:50 AM EDT VINOD: 07/15/24 SAMPSON Delgado In Person - 08/21/23 Sandy Delgado F/U: Not Scheduled IMPRESSION: Ladan (obstructive sleep apnea) (primary encounter diagnosis) Rls (restless legs syndrome) Elsa Pugh is a 69 yo F with PMH of CBP, DM, HTN, HLD, CABG. FU on RLS and LADAN on BiPAP. Sheis using BiPAP when she is asleep but limited by her RLS symptoms which keep her awake. She is ableto fall asleep with the help of Lyrica 150mg but around midnight is up for 2 hours due to RLS. At time she will strech watch and elevate legs. It is unclear if this awakening is due to sciatica pain or RLS. She is receiving injections for her back pain through pain management in the next couple months. She has RLS sxs from awakening to bedtime worse around 4PM. Clinical Global Impression of Change ( CGI-C) Compared to the patient's condition at baseline, how much has the patient changed? No change PLAN: LADAN on BiPAP - Continue Auto Bilevel PAP IPAP 13 EPAP 5 PS 5 cmH2O. Mask: Nasal DME [employer] - Remember to clean your mask and equipment regularly, as directed. - You should be eligible for new supplies approximately every 3-6 months, depending on your insurance coverage. Contact your Durable Medical Equipment (DME) company for new supplies as needed. -Once back pain and RLS under better control hope to increase BiPAP compliance RLS -Continue Mg but increase to 500mg -Change timings of Lyrica 150mg at 4PM and BT -Last Ferritin checked 02/19/24 157 -FU 1 month post pain management appt. Og Sifuentes MD PGY-4 Sleep Medicine Fellow, [facility] [phone] Attending Note I evaluated the patient and personally participated in the nicholson components. I agree with the fellow's findings and plan as documented and have discussed the case and management of the patient's care with the fellow. Patient has not been able to use her BiPAP as well because of her restless leg. She is unsure if itis her back pain or her legs. Lyrica is not helping as well. She is going to have her back injection, but not until August. She also had her iron level drawn, and ferritin level was 157 on 02/19/2024. She takes magnesium 200 mg a day. Plan: Increase magnesium to 500 mg daily Suggest patient to call her pain provider if there is any cancellation to move up her injection time Return to sleep medicine one month after her injection. At the time will see how her RLS is , and also how her BiPAP usage might be. Discussed with patient. Medical Decision Making: Problems: Low: Stable chronic illness Moderate: 1+ chronic illnesses with change Data: Unique test result(s) reviewed: 1 Risk: Moderate: Drug management Medical Decision Making Level: 4 - Moderate Signature: Rita Delgado MD Date: 07/15/2024 Time: 1:48 PM [facility]03-12-2025 Telephone encounter Note* Telephone Encounter - Houston Monk LPN - 08/26/2024 2:21 PM EDT Attempted to contact patient to follow up after procedure. Left a brief message asking patient to return call if they have any questions or concerns. Houston Monk LPN [facility]03-12-2025 Miscellaneous Notes* Telephone Encounter - Houston Monk LPN - 08/26/2024 2:21 PM EDT Attempted to contact patient to follow up after procedure. Left a brief message asking patient to return call if they have any questions or concerns. Houston Monk LPN documented in this encounterM[facility]03-10-2025 NoteHNO ID: [id number] Author: TRENTON SEAMAN MD Service: ? Author Type: Physician Type: Progress Notes Filed: 08/24/2024 11:15 Note Text: [facility] Date: 08/24/2024 Patient name: Elsa Pugh Physician performing procedure: Trenton Seaman MD Diagnosis: (M54.16) Lumbar radiculopathy (primary encounter diagnosis) Procedure: Epidural Steroid Injection - Interlaminar Approach (ILESI) under fluoroscopic guidance LEFT-BIAS at L3-4 Injectate: A total of 5 ml volume was injected The injectate consisted of: 1 ml of Dexamethasone (10mg/ml), 1 ml of Lidocaine 1%, The remainder consisting of Normal Saline Comments: None Improvement after today's procedure: as per nursing report HPI: Elsa Pugh is an 69 year old FEMALE who presents today, in pain, for the procedure noted above. Review of Systems: Pertinent Positives: MSK: pain in the region being treated Neuro: no weakness or numbness in the region being treated Skin: Negative (No itching) Eyes: Negative (No blurred or double vision) Respiratory: Negative (No Cough, Glsoprznt-fj-geisha, Dyspnea on exertion, wheezing) Cardiovascular: Negative (No Chest Pain, Tightness, Pressure, Palpitations) Gastrointestinal: Negative (No Abdominal pain, Nausea, Vomiting, Constipation, Diarrhea) Genitourinary: Negative (No dysuria) Hematologic: Negative (No bleeding, bruising) OB: is Denied or Not Applicable Endocrine: Negative (No hot/cold intolerance) Psychiatric: Negative (No depression, anxiety or suicidal ideation) PAST MEDICAL HISTORY Diagnosis Date Coronary artery disease Dr. 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, 8mm Restless legs syndrome (RLS) S/P CABG x 4 2001 Statin intolerance Type 2 diabetes mellitus without retinopathy (HCC) 03/06/2016 Unspecified asthma(493.90) mild intermittent, triggered by damp weather Uterine prolapse s/p hysterectomy PAST SURGICAL HISTORY Procedure Laterality Date COLONOSCOPY FLX DX W/COLLJ SPEC WHEN PFRMD 10/16/2003 Colonoscopy ESOPHAGOGASTRODUODENOSCOPY TRANSORAL DIAGNOSTIC 10/16/2003 EGD LAPS ABD PRTMANDOMENTUM DX W/WO SPEC BR/WA SPX Laparoscopy PAST SURGICAL HISTORY OF 01/15/2015 4 new stents were placed PAST SURGICAL HISTORY OF 17 stents PAST SURGICAL HISTORY OF 2001 CABGx4 PAST SURGICAL HISTORY OF 04/2023 PCI of SVG to RPDA with 2 LENA implanted TONSILLECTOMY PRIMARY/SECONDARY Tonsillectomy TOTAL ABDOMINAL HYSTERECT W/WO RMVL TUBE OVARY Hysterectomy, ZAKI FAMILY HISTORY Problem Relation Age of Onset other (colon polyps) Father Diabetes Father Heart disease Father Diabetes Sister other (rheumatoid arthritis) Sister Anxiety disorder Sister Heart Attack Sister No Known Problems Maternal Grandmother No Known Problems Maternal Grandfather No Known Problems Paternal Grandmother No Known Problems Paternal Grandfather Drug abuse Son No Known Problems Daughter Social History Tobacco Use Smoking status: Former Current packs/day: 0.00 Average packs/day: 0.5 packs/day for 27.0 years (13.5 ttl pk-yrs) Types: Cigarettes Start date: 1970 Quit date: 1997 Years since quittin.2 Smokeless tobacco: Never Vaping Use Vaping status: Never Used Substance Use Topics Alcohol use: Yes Comment: 2-3 drinks per month Drug use: No Current Outpatient Medications on File Prior to Visit Medication Sig blood sugar diagnostic (BLOOD GLUCOSE TEST) test strip Test blood sugar(s) 2 times daily. Dx: Type 2 DM - Controlled E11.9 Insulin: No Lancets Test blood sugar(s) 2 times daily. Dx: Type 2 DM - Controlled E11.9 Insulin: No citalopram (CELEXA) 40 mg tablet Take 1 tablet by mouth once daily. SITagliptin phosphate (JANUVIA) 50 mg tablet Take 1 tablet by mouth once daily. evolocumab 140 mg/mL subcutaneous pen injector (REPATHA SURECLICK) Inject 140 mg subcutaneously every 2 weeks. albuterol HFA (PROVENTIL HFA, VENTOLIN HFA) 90 mcg/actuation inhaler Inhale 2 Puffs as instructed every 4 hours as needed for wheezing/shortness of breath. metFORMIN (GLUCOPHAGE) 1,000 mg tablet Take 1 tablet by mouth two times a day with meals. pregabalin (LYRICA) 150 mg capsule TAKE 1 CAPSULE BY MOUTH TWICE DAILY AT SUPPER AND BEDTIME CPAP/BIPAP/OTHER Type .CPAPSettings into a note to see current settings/supplies/DME information. fenofibrate nanocrystallized (TRICOR) 145 mg tablet Take 1 tablet by mouth once daily. metoprolol succinate ER ( (more content not included)...[facility]03-10-2025 History of Present illness Narrative* Trenton Seaman MD - 08/24/2024 11:15 AM EDT [facility] Date: 08/24/2024 Patient name: Elsa Pugh Physician performing procedure: Trenton Seaman MD Diagnosis: (M54.16) Lumbar radiculopathy (primary encounter diagnosis) Procedure: Epidural Steroid Injection - Interlaminar Approach (ILESI) under fluoroscopic guidance LEFT-BIAS atL3-4 Injectate: A total of 5 ml volume was injected The injectate consisted of: 1 ml of Dexamethasone (10mg/ml), 1 ml of Lidocaine 1%, The remainder consisting of Normal Saline Comments: None Improvement after today's procedure: as per nursing report HPI: Elsa Pugh is an 69 year old FEMALE who presents today, in pain, for the procedure noted above. Review of Systems: Pertinent Positives: MSK: pain in the region being treated Neuro: no weakness or numbness in the region being treated Skin: Negative (No itching) Eyes: Negative (No blurred or double vision) Respiratory: Negative (No Cough, Aevrjqokh-gf-ilqefo, Dyspnea on exertion, wheezing) Cardiovascular: Negative (No Chest Pain, Tightness, Pressure, Palpitations) Gastrointestinal: Negative (No Abdominal pain, Nausea, Vomiting, Constipation, Diarrhea) Genitourinary: Negative (No dysuria) Hematologic: Negative (No bleeding, bruising) OB: is Denied or Not Applicable Endocrine: Negative (No hot/cold intolerance) Psychiatric: Negative (No depression, anxiety or suicidal ideation) PAST MEDICAL HISTORY Diagnosis Date Coronary artery disease Dr. 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, 8mm Restless legs syndrome (RLS) S/P CABG x 4 2001 Statin intolerance Type 2 diabetes mellitus without retinopathy (HCC) 03/06/2016 Unspecified asthma(493.90) mild intermittent, triggered by damp weather Uterine prolapse s/p hysterectomy PAST SURGICAL HISTORY Procedure Laterality Date COLONOSCOPY FLX DX W/COLLJ SPEC WHEN PFRMD 10/16/2003 Colonoscopy ESOPHAGOGASTRODUODENOSCOPY TRANSORAL DIAGNOSTIC 10/16/2003 EGD LAPS ABD PRTM&OMENTUM DX W/WO SPEC BR/WA SPX Laparoscopy PAST SURGICAL HISTORY OF 01/15/2015 4 new stents were placed PAST SURGICAL HISTORY OF 17 stents PAST SURGICAL HISTORY OF 2001 CABGx4 PAST SURGICAL HISTORY OF 04/2023 PCI of SVG to RPDA with 2 LENA implanted TONSILLECTOMY PRIMARY/SECONDARY <AGE 11 Tonsillectomy TOTAL ABDOMINAL HYSTERECT W/WO RMVL TUBE OVARY Hysterectomy, ZAKI FAMILY HISTORY Problem Relation Age of Onset other (colon polyps) Father Diabetes Father Heart disease Father Diabetes Sister other (rheumatoid arthritis) Sister Anxiety disorder Sister Heart Attack Sister No Known Problems Maternal Grandmother No Known Problems Maternal Grandfather No Known Problems Paternal Grandmother No Known Problems Paternal Grandfather Drug abuse Son No Known Problems Daughter Social History Tobacco Use Smoking status: Former Current packs/day: 0.00 Average packs/day: 0.5 packs/day for 27.0 years (13.5 ttl pk-yrs) Types: Cigarettes Start date: 1970 Quit date: 1997 Years since quittin.2 Smokeless tobacco: Never Vaping Use Vaping status: Never Used Substance Use Topics Alcohol use: Yes Comment: 2-3 drinks per month Drug use: No Current Outpatient Medications on File Prior to Visit Medication Sig blood sugar diagnostic (BLOOD GLUCOSE TEST) test strip Test blood sugar(s) 2 times daily. Dx: Type 2 DM - Controlled E11.9 Insulin: No Lancets Test blood sugar(s) 2 times daily. Dx: Type 2 DM - Controlled E11.9 Insulin: No citalopram (CELEXA) 40 mg tablet Take 1 tablet by mouth once daily. SITagliptin phosphate (JANUVIA) 50 mg tablet Take 1 tablet by mouth once daily. evolocumab 140 mg/mL subcutaneous pen injector (REPATHA Liquid EnginesCLICK) Inject 140 mg subcutaneously every 2 weeks. albuterol HFA (PROVENTIL HFA, VENTOLIN HFA) 90 mcg/actuation inhaler Inhale 2 Puffs as instructed every 4 hours as needed for wheezing/shortness of breath. metFORMIN (GLUCOPHAGE) 1,000 mg tablet Take 1 tablet by mouth two times a day with meals. pregabalin (LYRICA) 150 mg capsule TAKE 1 CAPSULE BY MOUTH TWICE DAILY AT SUPPER AND BEDTIME CPAP/BIPAP/OTHER Type .CPAPSettings into a note to see current settings/supplies/DME information. fenofibrate nanocrystallized (TRICOR) 145 mg tablet Take 1 tablet by mouth once daily. metoprolol succinate ER (TOPROL XL) 25 mg 24 hr tablet Take 0.5 tablets by mouth once daily. aspirin, enteric coated (ASPIRIN, ENTERIC COATED) 81 mg EC tablet Take 1 tablet by mouth once daily. promethazine (PHENERGAN) 25 mg tablet Take 1 tablet by mouth every 6 hours as needed for nausea/vomiting. clopidogrel (PLAVIX) 75 mg tablet Take 75 mg by mouth once daily. isosorbide mononitrate ER (IMDUR) 60 mg 24 hr tablet Take 90 mg by mouth once daily. pantoprazole DR (PROTONIX) 40 mg tablet Take 1 tablet by mouth once daily. Take on empty stomach, 1/2 hr before meal. cholecalciferol (VITAMIN D-3) 50 mcg (2,000 unit) tablet Take 2,000 Units by mouth once daily. CPAP/BIPAP/OTHER Formal mask fitting to consider smaller FFM like dreamwear due to dry eyes and supplies for bipap 13/8cmH2O DME [employer] CPAP/BIPAP/OTHER Replacement auto bipap 13/8 with PS of 5cmH2O DME [employer] CPAP/BIPAP/OTHER Settings decrease to autobipap 13/8cmH2O DME [employer] BIPAP DME change for supplies. Pt has a Resmed Auto BiPAP IPAP max 18, EPAP min 6 CM H2O, PS 5 cmH2O. mask, filters, heated humidity & tubing, [employer] supplies. LADAN G47.33 red yeast rice 600 mg tab ascorbic acid, vitamin C, (VITAMIN C) 500 mg tablet Take 500 mg by mouth daily at bedtime. nitroglycerin sublingual (NITROQUICK) 0.4 mg SL tablet Dissolve 0.4 mg under the tongue. MAGNESIUM ORAL Take 300 mg by mouth twice daily. some days takes three tablets ranolazine ER (RANEXA) 500 mg 12 hr tablet Take 1,000 mg by mouth twice daily. No current facility-administered medications on file prior to visit. Objective Exam: Vitals: As per nursing documentation Constitutional: Normal Appearance, Oriented to Time, Place and Person Head: No lacerations, no external signs of trauma Eyes: Conjunctiva clear. No discharge from the eyes Cardiovascular: Appears well-perfused Pulmonary: Non-labored respirations Abdominal: Non-distended Skin: No visible rashes or ecchymosis Psychiatric: Mood appropriate for given condition Neurological: Gross movements are limited by pain, but otherwise unremarkable Data Reviewed: Nursing note and vitals reviewed. Additional imaging reviewed as appropriate Assessment and Plan: As noted above [place] protocol documentation / Pre-Procedure Checklist: Consent: Obtained in writing prior to procedure I had a nice discussion with the patient today about their current pain and the pathology that could be causing it We discussed different treatment options, including risks, benefits and alternatives. We agreed to proceed as previously discussed, or the plan was modified in accordance with the comments noted above Unless stated otherwise in the procedure note, the risks include but are not limited to infection, allergic reaction, increased pain, lack of therapeutic benefit, steroid reaction, nerve damage, paralysis, stroke, epidural hematoma, syncope, headache, respiratory or cardiac arrest, pneumothorax, and scar formation Once the plan was agreed upon, the patient gave written consent to proceed and was transported intothe procedure room Surgical/Procedure pause or Time Out : Time Out was led by the physician in the procedure room, with the patient and all staff present andparticipating The following information was verified during the Time Out process: Patient name, patient date of , procedure site (marked), laterality, anticoagulants and allergies Procedure: The patient was prepped and draped in a sterile fashion in the prone position after informed consent was signed and all the patient's questions were answered including the risks, benefits,alternative treatment options, and prognosis. The risks are as mentioned above. Using the approach mentioned above, the region overlying the inferior lamina was localized under fluoroscopic visualization and the soft tissues overlying this structure were infiltrated with 2-4 cc.of 1% Lidocaine without Epinephrine. A #20 gauge, 3.5 inch Tuohy needle was inserted into the epidural space using the approach mentioned above. The epidural space was localized using loss of resistance after negative aspirate for air, blood, and CSF. A 2 cc volume of Omnipaque 300 was injected into the epidural space and the flow of contrast was observed to be epidural. Needle placement was confirmed with AP, oblique, and contralateral oblique imaging. The above injectate was injected without c omplication. Please see the nursing note for exact times (time out, procedure start, procedure end). After careful removal of the needle, there was minimal bleeding. The injection site was covered with appropriate sterile dressing. The patient was noted to have tolerated the procedure well and was discharged after an appropriate period of post-procedure observation. The patient was instructed to contact us if there were any complications. The patient was advised to follow-up with the requesting physician within one to two weeks or as per their requested follow-up plan. Post procedure visit summary with written instructions was offered to the patient. Trenton Seaman MD Pain Management [facility] * Zkaia Man LPN - 08/24/2024 9:21 AM EDT Review of Systems Order has been placed in the patient's chart with the following parameters for discharge from the physician: Patient is alert and oriented Vitals: Diastolic/Systolic +/- 20mmHg Respirations: 12-18 Pulse: 60-100 SpO2 is greater than or equal to 90% Patient has no nausea or vomiting Patient has no dizziness Pain level is +/- 2 from initial evaluation Dressing, dry and intact with no evidence of bleeding Criteria has been met, patient is okay to be discharged per the physician. Physician has gone in and evaluated the patient. Dressing dry and intact. No drainage noted. The patient denies nausea, numbness, tingling, weakness, shortness of breath, dizziness, or headache. Pain level 0/10. Vital signs within normal limits. Patient denied needing walked out by clinical staff and denied needing a wheelchair. Patient given discharge instructions and sent to transportation via ambulatory method. Patient left in good condition. * Jesus Jaramillo LPN - 08/24/2024 9:05 AM EDT Procedure to be performed: L3/L4 LUMBAR INTERLAMINAR EPIDURAL INJECTION Patient was wheeled on stretcher from pre op bay to procedure room and assisted onto the procedure tablePatient s procedure was performed in an [facility] Procedure room. Pause completed at each level by provider to verify correct level and laterality placement Pressure was applied to patient s injection site(s) and bleeding was minimal. Patient had no complaint of shortness of breath, dizziness, headache, numbness, tingling, weakness or complications from procedure. Patient was assisted from the procedure table onto the stretcher and wheeled into a post op bay. Patient was advised a clinician will be to obtain another set of vitals. Time Out: 912 Confirmed patient name, date of , procedure site, laterality, and allergies Procedure Start: 915 Procedure End: 917 * Cristal Vazquez LPN - 08/24/2024 7:58 AM EDT Review of Systems Constitutional: Positive for activity change, chills and fever. Negative for unexpected weight change. Gastrointestinal: Negative for bowel retention or incontinence Genitourinary: Negative for difficulty urinating. Negative for bladder retention or incontinence Musculoskeletal: Positive for arthralgias, back pain, gait problem, joint swelling, neck pain and neck stiffness. Negative for myalgias. Neurological: Positive for numbness and headaches. Negative for weakness. Psychiatric/Behavioral: Positive for dysphoric mood and sleep disturbance. Negative for suicidal ideas. The patient is nervous/anxious. * Cristal Vazquez LPN - 08/24/2024 7:50 AM EDT Brand Marketing Coordinator's Name: elisa Are you on a blood thinner: plavix If yes, is a hold required: y Last dose of blood thinner: 08/17/24 INR Result today: n Do you require a Lovenox bridge:n Are you a diabetic:y 173 Are you/or could you be : n Are you taking Xanax for the procedure: n Are you currently on a steroid? n Are you currently on an antibiotic: n documented [facility] NoteHNO ID: [id number] Author: ZAKIA MAN LPN Service: ? Author Type: LICENSED NURSE Type: Progress Notes Filed: 08/24/2024 11:15 Note Text: Review of Systems Order has been placed in the patient's chart with the following parameters for discharge from the physician: Patient is alert and oriented Vitals: Diastolic/Systolic +/- 20mmHg Respirations: 12-18 Pulse: 60-100 SpO2 is greater than or equal to 90% Patient has no nausea or vomiting Patient has no dizziness Pain level is +/- 2 from initial evaluation Dressing, dry and intact with no evidence of bleeding Criteria has been met, patient is okay to be discharged per the physician. Physician has gone in and evaluated the patient. Dressing dry and intact. No drainage noted. The patient denies nausea, numbness, tingling, weakness, shortness of breath, dizziness, or headache. Pain level 0/10. Vital signs within normal limits. Patient denied needing walked out by clinical staff and denied needing a wheelchair. Patient given discharge instructions and sent to transportation via ambulatory method. Patient left in good condition.[facility]03-10-2025 NoteHNO ID: [id number] Author: JESUS JARAMILLO LPN Service: ? Author Type: LICENSED NURSE Type: Progress Notes Filed: 08/24/2024 11:15 Note Text: Procedure to be performed: L3/L4 LUMBAR INTERLAMINAR EPIDURAL INJECTION Patient was wheeled on stretcher from pre op bay to procedure room and assisted onto the procedure tablePatient?s procedure was performed in an [facility] Procedure room. Pause completed at each level by provider to verify correct level and laterality placement Pressure was applied to patient?s injection site(s) and bleeding was minimal. Patient had no complaint of shortness of breath, dizziness, headache, numbness, tingling, weakness or complications from procedure. Patient was assisted from the procedure table onto the stretcher and wheeled into a post op bay. Patient was advised a clinician will be to obtain another set of vitals. Time Out: 912 Confirmed patient name, date of , procedure site, laterality, and allergies Procedure Start: 915 Procedure End: 917[facility]03-10-2025 Instructions* Patient Instructions* Zakia aMn LPN - 08/24/2024 8:18 AM EDT PROCEDURE DISCHARGE INSTRUCTIONS 08/24/2024 Elsa Pugh 1955 Physician: Trenton Seaman MD Procedure: LUMBAR INTERLAMINAR EPIDURAL INJECTION Post Procedure Instructions: If sedation not given, no driving for 3 hours after the procedure., Rest the day of the procedure.,You may resume normal activities the day after the procedure, as tolerated., Pain should gradually subside over the next 2-3 weeks., Avoid movements that may aggravate pain., Apply cold compresses toinjection site if needed., If medically acceptable, take over the counter anti-inflammatories such as ibuprofen or Aleve if needed for post procedure discomfort., and No hot baths, hot tubs or hot compresses for 24 hours. If you have any of the following signs or symptoms, please call our office at Fever and/or chills Swelling and/or drainage from injection site New pain that is different than your normal pain (other than soreness at the site of the procedure) Stiff neck Shortness of breath Severe increase in pain Motor dysfunctions, such as difficulty walking, bowel or bladder dysfunction and/or incontinence Headache that is severe, light sensitive or develops when changing positions (positional headache) Nausea and/or vomiting accompanied by headache that started 24-48 hours after the procedure If you have any emergent concerns, please call 911 or go to your local emergency room. Please also contact our office to let us know you will be seeking emergency care and why. documented in this encounterM[facility]03-10-2025 NoteHNO ID: [id number] Author: CRISTAL VAZQUEZ LPN Service: ? Author Type: LICENSED NURSE Type: Progress Notes Filed: 08/24/2024 11:15 Note Text: Review of Systems Constitutional: Positive for activity change, chills and fever. Negative for unexpected weight change. Gastrointestinal: Negative for bowel retention or incontinence Genitourinary: Negative for difficulty urinating. Negative for bladder retention or incontinence Musculoskeletal: Positive for arthralgias, back pain, gait problem, joint swelling, neck pain and neck stiffness. Negative for myalgias. Neurological: Positive for numbness and headaches. Negative for weakness. Psychiatric/Behavioral: Positive for dysphoric mood and sleep disturbance. Negative for suicidal ideas. The patient is nervous/anxious.[facility]03-10-2025 NoteHNO ID: [id number] Author: CRISTAL VAZQUEZ LPN Service: ? Author Type: LICENSED NURSE Type: Progress Notes Filed: 08/24/2024 11:15 Note Text: Brand Marketing Coordinator's Name: elisa Are you on a blood thinner: plavix If yes, is a hold required: y Last dose of blood thinner: 08/17/24 INR Result today: n Do you require a Lovenox bridge:n Are you a diabetic:y 173 Are you/or could you be : n Are you taking Xanax for the procedure: n Are you currently on a steroid? n Are you currently on an antibiotic: [facility]03-06-2025 Note [facility]03-06-2025 History of Present illness Narrative* Eyad Victoria APRN.[employer]OR - 08/20/2024 1:11 PM EST VIRTUAL VISIT PROGRESS NOTE This is a virtual visit using [employer] Zoom Video Visit. It required patient- provider interaction for the medical decision making as documented below. I have communicated my name and active licensure. The patient's identity and physical location wereverified at the time of this visit. Either the patient or their legal residential sales representative has been informed of the risks and benefits of -- and alternatives to -- treatment through a remote evaluation andconsents to proceed with the evaluation remotely. Elsa Pugh is a 69 year old female seen for flu like symptoms. Symptoms started 3 days ago and include nasal congestion, headache, fever, n/v/d. Denies CP, increased SOB, cough. Reports symptoms have worsened from Saturday through yesterday. Reports home test for covid was negative 08/19. HISTORY REVIEWED (electronic chart updated): PAST MEDICAL HISTORY Diagnosis Date Coronary artery disease Dr. Devon BROWN (degenerative disc disease), lumbar Essential hypertension Generalized anxiety disorder 01/15/2023 Hemorrhage of rectum and anus History of colonic polyps Hyperlipidemia Hypoglycemia, unspecified Narcolepsy Sleep Medicine in [place] NSTEMI (non-ST elevated myocardial infarction) (HCC) Obesity Obstructive sleep apnea on CPAP Plantar fasciitis PMH - PAST MEDICAL HISTORY OF edema Renal angiomyolipoma 08/19/2023 left, 8mm Restless legs syndrome (RLS) S/P CABG x 4 2001 Statin intolerance Type 2 diabetes mellitus without retinopathy (HCC) 03/06/2016 Unspecified asthma(493.90) mild intermittent, triggered by damp weather Uterine prolapse s/p hysterectomy PAST SURGICAL HISTORY Procedure Laterality Date COLONOSCOPY FLX DX W/COLLJ SPEC WHEN PFRMD 10/16/2003 Colonoscopy ESOPHAGOGASTRODUODENOSCOPY TRANSORAL DIAGNOSTIC 10/16/2003 EGD LAPS ABD PRTM&OMENTUM DX W/WO SPEC BR/WA SPX Laparoscopy PAST SURGICAL HISTORY OF 01/15/2015 4 new stents were placed PAST SURGICAL HISTORY OF 17 stents PAST SURGICAL HISTORY OF 2001 CABGx4 PAST SURGICAL HISTORY OF 04/2023 PCI of SVG to RPDA with 2 LENA implanted TONSILLECTOMY PRIMARY/SECONDARY <AGE 11 Tonsillectomy TOTAL ABDOMINAL HYSTERECT W/WO RMVL TUBE OVARY Hysterectomy, ZAKI FAMILY HISTORY Problem Relation Age of Onset other (colon polyps) Father Diabetes Father Heart disease Father Diabetes Sister other (rheumatoid arthritis) Sister Anxiety disorder Sister Heart Attack Sister No Known Problems Maternal Grandmother No Known Problems Maternal Grandfather No Known Problems Paternal Grandmother No Known Problems Paternal Grandfather Drug abuse Son No Known Problems Daughter Social History Tobacco Use Smoking status: Former Current packs/day: 0.00 Average packs/day: 0.5 packs/day for 27.0 years (13.5 ttl pk-yrs) Types: Cigarettes Start date: 1970 Quit date: 1997 Years since quittin.1 Smokeless tobacco: Never Vaping Use Vaping status: Never Used Substance Use Topics Alcohol use: Yes Comment: 2-3 drinks per month Drug use: No Current Outpatient Medications Medication Sig blood sugar diagnostic (BLOOD GLUCOSE TEST) test strip Test blood sugar(s) 2 times daily. Dx: Type 2 DM - Controlled E11.9 Insulin: No Lancets Test blood sugar(s) 2 times daily. Dx: Type 2 DM - Controlled E11.9 Insulin: No citalopram (CELEXA) 40 mg tablet Take 1 tablet by mouth once daily. SITagliptin phosphate (JANUVIA) 50 mg tablet Take 1 tablet by mouth once daily. urea (CARMOL) 40 % Apply to affected area once daily. (Patient not taking: Reported on 07/02/2024) evolocumab 140 mg/mL subcutaneous pen injector (WINTERBasia LAWRENCE) Inject 140 mg subcutaneously every 2 weeks. albuterol HFA (PROVENTIL HFA, VENTOLIN HFA) 90 mcg/actuation inhaler Inhale 2 Puffs as instructed every 4 hours as needed for wheezing/shortness of breath. estradiol (ESTRACE) 0.01 % (0.1 mg/gram) vaginal cream Use 1 g vaginally once daily. (Patient not taking: Reported on 07/02/2024) albuterol HFA (PROVENTIL HFA, VENTOLIN HFA) 90 mcg/actuation inhaler Inhale 2 Puffs as instructed every 4 hours as needed for wheezing/shortness of breath. metFORMIN (GLUCOPHAGE) 1,000 mg tablet Take 1 tablet by mouth two times a day with meals. pregabalin (LYRICA) 150 mg capsule TAKE 1 CAPSULE BY MOUTH TWICE DAILY AT SUPPER AND BEDTIME CPAP/BIPAP/OTHER Type .CPAPSettings into a note to see current settings/supplies/DME information. fenofibrate nanocrystallized (TRICOR) 145 mg tablet Take 1 tablet by mouth once daily. metoprolol succinate ER (TOPROL XL) 25 mg 24 hr tablet Take 0.5 tablets by mouth once daily. aspirin, enteric coated (ASPIRIN, ENTERIC COATED) 81 mg EC tablet Take 1 tablet by mouth once daily. promethazine (PHENERGAN) 25 mg tablet Take 1 tablet by mouth every 6 hours as needed for nausea/vomiting. clopidogrel (PLAVIX) 75 mg tablet Take 75 mg by mouth once daily. isosorbide mononitrate ER (IMDUR) 60 mg 24 hr tablet Take 90 mg by mouth once daily. pantoprazole DR (PROTONIX) 40 mg tablet Take 1 tablet by mouth once daily. Take on empty stomach, 1/2 hr before meal. cholecalciferol (VITAMIN D-3) 50 mcg (2,000 unit) tablet Take 2,000 Units by mouth once daily. CPAP/BIPAP/OTHER Formal mask fitting to consider smaller FFM like dreamwear due to dry eyes and supplies for bipap 13/8cmH2O DME [employer] CPAP/BIPAP/OTHER Replacement auto bipap 13/8 with PS of 5cmH2O DME [employer] CPAP/BIPAP/OTHER Settings decrease to autobipap 13/8cmH2O DME [employer] BIPAP DME change for supplies. Pt has a Resmed Auto BiPAP IPAP max 18, EPAP min 6 CM H2O, PS 5 cmH2O. mask, filters, heated humidity & tubing, [employer] supplies. LADAN G47.33 red yeast rice 600 mg tab ascorbic acid, vitamin C, (VITAMIN C) 500 mg tablet Take 500 mg by mouth daily at bedtime. nitroglycerin sublingual (NITROQUICK) 0.4 mg SL tablet Dissolve 0.4 mg under the tongue. MAGNESIUM ORAL Take 300 mg by mouth twice daily. some days takes three tablets ranolazine ER (RANEXA) 500 mg 12 hr tablet Take 1,000 mg by mouth twice daily. No current facility-administered medications for this visit. ALLERGIES Allergen Reactions Asa [Salicylates] Vomiting Augmentin [Amoxicil* GI Upset Belladonna [Bellado* Intolerance GI upset Benazepril Cough Sep 2005 Butazolidin [Phenyl* Unknown Carbidopa Darvocet-N 100 [Pro* Intolerance HEADACHE Doxycycline Other: See Comments Patient ended up in ER with tongue and throat swelling- allergy not ruled out Guaifenesin-Sodium * Ibuprofen Rash Jardiance [Empaglif* Intolerance Vaginal itching Levaquin [Levofloxa* Other: See Comments Hallucinations anxiety numbness tingling Lopid [Gemfibrozil] Niacin Niaspan [Niacin (An* Penicillins Hives Provigil [Modafinil] Mental Status Change hallucinations Ramipril Unknown Heifoxt-Esu-Gfa Red* Myalgia Sulfa (Sulfonamide * Tramadol Other: See Comments stroke like symptoms REVIEW OF SYSTEMS: SEE HPI PHYSICAL EXAMINATION: VIDEO EXAM: (if completed, performed via video enabled technology) GENERAL: alert and appropriate, in no distress, well-hydrated, well nourished, and happy, smiling, interactive RESPIRATORY: breathing non-labored ASSESSMENT/PLAN: 1. Viral illness - ICD9: 079.99, ICD10: B34.9 - Discussed viral etiology and rationale for treatment. - Symptomatic treatment with prn analgesia - Supportive care with fluids and rest I spent a total of 13 minutes on the date of the service which included preparing to see the patient, [id number] patient care, completing clinical documentation, obtaining and/or reviewing separately obtained history, performing a medically appropriate examination, counseling and educating the pat ient/family/caregiver, ordering medications, tests, or procedures, and communicating results to thepatient/family/caregiver yEad Victoria APRN.JUANITA documented in this encounterM[facility]03-06-[facility]25 Telephone encounter Note * Telephone Encounter - Leticia Pop RN - 08/20/2024 9:51 AM EST Patient calling with concern for flu-like sx's for 3 days. Requesting treatment. Pt reports negative home covid test 08/19/24. Symptoms include nasal congestion, left ear discomfort, headache, elevated temp, N/V/D. Reports shedoes get a little short of breath at times but this is not new. No distress noted during call. Able to speak full sentences. Denies chest pain, SOB, feeling faint, dizziness, sore throat or cough. Virtual appt made with Girma Victoria CNP for today. No appts available with pt's PCP diad. Leticia Pop RN [facility]03-06-[facility]25 Miscellaneous Notes* Telephone Encounter - Leticia Pop RN - 08/20/2024 9:51 AM EST Patient calling with concern for flu-like sx's for 3 days. Requesting treatment. Pt reports negative home covid test 08/19/24. Symptoms include nasal congestion, left ear discomfort, headache, elevated temp, N/V/D. Reports shedoes get a little short of breath at times but this is not new. No distress noted during call. Able to speak full sentences. Denies chest pain, SOB, feeling faint, dizziness, sore throat or cough. Virtual appt made with Girma Victoria CNP for today. No appts available with pt's PCP diad. Leticia Pop RN documented in this encounterM[facility]03-05-2025 Evaluation note* Diagnosis Onset Date Resolution Status Admit Date Atherosclerosis of coronary artery chronic August 19, 2024 10:17am Diabetes chronic August 19 10:17am Essential hypertension chronic [facility] 2024 10:17am Hyperlipidemia chronic August 19, 2024 10:17am [facility] Work Phone: 1(175) 504-257103-05-2025 Evaluation note* Diagnosis Onset Date Resolution Status Admit Date Atherosclerosis of coronary artery chronic August 19, 2024 10:17am Diabetes chronic August 19 10:17am Essential hypertension chronic [facility] 2024 10:17am Hyperlipidemia chronic August 19, 2024 10:17am Flank pain acute December 14 1:40pm Hematuria acute December 14 1:40pm [place] [employer] Work Phone: 1(816) 551-235003-05-2025 Evaluation note* Diagnosis Onset Date Resolution Status Admit Date Atherosclerosis of coronary artery chronic August 19, 2024 10:17am Diabetes chronic August 19 10:17am Essential hypertension chronic [facility] 2024 10:17am Hyperlipidemia chronic August 19, 2024 10:17am Flank pain acute December 14 1:40pm Gastric ulcer acute December 14, 2024 1:40pm Hematuria acute December 14 1:40pm Bradycardia acute December 16 1:41pm Chest pain acute December 16, 2024 1:41pm Atherosclerosis of coronary artery chronic December 16, 2024 1 :41pm Diabetes chronic December 16, 2024 1:41pm Essential hypertension chronic 2024 1:41pm Hyperlipidemia chronic December 16, 2024 1:41pm [employer] Work Phone: 1(679) 827-145602-19-2025 History of Present illness Narrative* Anay Lawrence APRN.[employer] AMBASSADOR - 08/05/2024 2:00 PM EST 08/03/2024 Patient presents with: Diabetes: Follow up SUBJECTIVE: This is a 69 year old that is here today for Above Complaints. DIABETES MELLITUS: Since our last visit she denies chest pain or dyspnea , new or unusual visual symptoms, low sugar/hypoglycemic reactions, weight loss/gain, lightheadedness/dizziness, and bowel changes/loose stools. Follows a diabetic diet most of the time. She is compliant with medication(s) andis tolerating med(s) without any side effects. She reports checking her glucose on a twice a day schedule with sugars in the fasting 152-165 and 165-190 later in the day. Patient's last HgA1C was Hemoglobin A1C (%) Date Value 05/13/2024 10.2 10/30/2023 7.3 07/04/2021 8.8 06/14/2003 5.7 ) Last Ophthalmology exam was within the past 12 months Latest Ref Rng 08/05/2024 Hemoglobin A1C (POCT) 4.3 - 5.6 % 7.0 ! Legend: ! Abnormal PAST MEDICAL HISTORY Diagnosis Date Coronary artery disease Dr. 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, 8mm Restless legs syndrome (RLS) S/P CABG x 4 2001 Statin intolerance Type 2 diabetes mellitus without retinopathy (HCC) 03/06/2016 Unspecified asthma(493.90) mild intermittent, triggered by damp weather Uterine prolapse s/p hysterectomy ALLERGIES Asa [Salicylates], Augmentin [Amoxicillin-Pot Clavulanate], Belladonna [Belladonna Alkaloids], Benazepril, Butazolidin [Phenylbutazone], Carbidopa, Darvocet-N 100 [Propoxyphene N-Acetaminophen], Doxycycline, Guaifenesin-Sodium Citrate, Ibuprofen, Jardiance [Empagliflozin], Levaquin [Levofloxacin], Lopid [Gemfibrozil], Niacin, Niaspan [Niacin (Antihyperlipidemic)], Penicillins, Provigil [Modafinil], Ramipril, Ptekjqc-Oxv-Bol Reductase Inhibitors, Sulfa (Sulfonamide Antibiotics), and Tramadol MEDICATIONS Current Outpatient Medications Medication Sig citalopram (CELEXA) 40 mg tablet Take 1 tablet by mouth once daily. SITagliptin phosphate (JANUVIA) 50 mg tablet Take 1 tablet by mouth once daily. urea (CARMOL) 40 % Apply to affected area once daily. (Patient not taking: Reported on 07/02/2024) evolocumab 140 mg/mL subcutaneous pen injector (REPATHA SURECLICK) Inject 140 mg subcutaneously every 2 weeks. albuterol HFA (PROVENTIL HFA, VENTOLIN HFA) 90 mcg/actuation inhaler Inhale 2 Puffs as instructed every 4 hours as needed for wheezing/shortness of breath. estradiol (ESTRACE) 0.01 % (0.1 mg/gram) vaginal cream Use 1 g vaginally once daily. (Patient not taking: Reported on 07/02/2024) albuterol HFA (PROVENTIL HFA, VENTOLIN HFA) 90 mcg/actuation inhaler Inhale 2 Puffs as instructed every 4 hours as needed for wheezing/shortness of breath. metFORMIN (GLUCOPHAGE) 1,000 mg tablet Take 1 tablet by mouth two times a day with meals. pregabalin (LYRICA) 150 mg capsule TAKE 1 CAPSULE BY MOUTH TWICE DAILY AT SUPPER AND BEDTIME CPAP/BIPAP/OTHER Type .CPAPSettings into a note to see current settings/supplies/DME information. fenofibrate nanocrystallized (TRICOR) 145 mg tablet Take 1 tablet by mouth once daily. metoprolol succinate ER (TOPROL XL) 25 mg 24 hr tablet Take 0.5 tablets by mouth once daily. aspirin, enteric coated (ASPIRIN, ENTERIC COATED) 81 mg EC tablet Take 1 tablet by mouth once daily. promethazine (PHENERGAN) 25 mg tablet Take 1 tablet by mouth every 6 hours as needed for nausea/vomiting. clopidogrel (PLAVIX) 75 mg tablet Take 75 mg by mouth once daily. isosorbide mononitrate ER (IMDUR) 60 mg 24 hr tablet Take 90 mg by mouth once daily. pantoprazole DR (PROTONIX) 40 mg tablet Take 1 tablet by mouth once daily. Take on empty stomach, 1/2 hr before meal. blood sugar diagnostic (BLOOD GLUCOSE TEST) test strip Test blood sugar(s) 2 times daily. Dx: Type 2 DM - Controlled E11.9 Insulin: No Lancets lancets Test blood sugar(s) 2 times daily. Dx: Type 2 DM - Controlled E11.9 Insulin: No cholecalciferol (VITAMIN D-3) 50 mcg (2,000 unit) tablet Take 2,000 Units by mouth once daily. CPAP/BIPAP/OTHER Formal mask fitting to consider smaller FFM like dreamwear due to dry eyes and supplies for bipap 13/8cmH2O DME [facility] CPAP/BIPAP/OTHER Replacement auto bipap 13/8 with PS of 5cmH2O DME [facility] CPAP/BIPAP/OTHER Settings decrease to autobipap 13/8cmH2O DME [employer] BIPAP DME change for supplies. Pt has a [employer] Auto BiPAP IPAP max 18, EPAP min 6 CM H2O, PS 5 cmH2O. mask, filters, heated humidity & tubing, [employer] supplies. LADAN G47.33 red yeast rice 600 mg tab ascorbic acid, vitamin C, (VITAMIN C) 500 mg tablet Take 500 mg by mouth daily at bedtime. nitroglycerin sublingual (NITROQUICK) 0.4 mg SL tablet Dissolve 0.4 mg under the tongue. MAGNESIUM ORAL Take 300 mg by mouth twice daily. some days takes three tablets ranolazine ER (RANEXA) 500 mg 12 hr tablet Take 1,000 mg by mouth twice daily. No current facility-administered medications for this visit. Medications and allergies reviewed by this provider. SOCIAL HISTORY Social History Tobacco Use Smoking status: Former Current packs/day: 0.00 Average packs/day: 0.5 packs/day for 27.0 years (13.5 ttl pk-yrs) Types: Cigarettes Start date: 1970 Quit date: 1997 Years since quittin.1 Smokeless tobacco: Never Vaping Use Vaping status: Never Used Substance Use Topics Alcohol use: Yes Comment: 2-3 drinks per month Drug use: No REVIEW OF SYSTEMS All other reviewed and negative other than HPI. OBJECTIVE: BP 126/65 Pulse (!) 50 Resp 16 Wt 90.6 kg (199 lb 11.8 oz) SpO2 96% BMI 33.24 kg/m . Vital signs reviewed by this provider. APPEARANCE Well appearing, alert, in no acute distress, well-hydrated, well nourished. EYES conjunctiva and sclera normal. HEART RRR with normal S1 and S2, no murmurs, no gallops, no JVD appreciated LUNG clear to auscultation. No wheezes, rhonchi or rales SKIN Skin color, texture, turgor normal, no suspicious rashes or lesions to exposed skin Latest Ref Rng 05/13/2024 Protein, Total 6.3 - 8.0 g/dL 6.3 Albumin 3.9 - 4.9 g/dL 4.0 Calcium 8.5 - 10.2 mg/dL 9.2 Bilirubin, Total 0.2 - 1.3 mg/dL 0.3 Alkaline Phosphatase 34 - 123 U/L 57 AST 13 - 35 U/L 15 ALT 7 - 38 U/L 13 Glucose 74 - 99 mg/dL 257 (H) BUN 7 - 21 mg/dL 16 Creatinine 0.58 - 0.96 mg/dL 0.91 Sodium 136 - 144 mmol/L 140 Potassium 3.7 - 5.1 mmol/L 4.3 Chloride 98 - 107 mmol/L 102 CO2 22 - 30 mmol/L 28 Anion Gap 8 - 15 mmol/L 10 eGFR >=60 mL/min/1.73m 68 Cholesterol, Total <200 mg/dL 201 (H) Triglyceride <150 mg/dL 214 (H) HDL Cholesterol >39 mg/dL 34 (L) Non HDL Cholesterol <130 mg/dL 167 (H) Fasting Time hrs 16 VLDL Cholesterol <30 mg/dL 43 (H) TC:HDL Ratio <5.10 5.91 (H) LDL Cholesterol <100 mg/dL 124 (H) LDL:HDL Ratio <2.54 3.65 (H) Legend: (H) High (L) Low Depression Screening Never done Hepatitis C Screening Never done Shingrix Vaccine(1 of 2) Never done DTaP,Tdap,Td Vaccine(2 - Tdap) due on 03/17/2013 Advance Directive Discussion Never done Mammogram Screening due on 12/17/2024 Covid-19 Vaccine() due on 05/06/2025 Colorectal Cancer Screening due on 11/11/2024 Dilated Retinal Exam due on 11/13/2024 HbA1C due on 02/02/2025 Diabetic Foot Exam due on 05/06/2025 Urine Albumin:Creatinine Ratio due on 05/13/2025 LDL Cholesterol due on 05/13/2025 Serum Creatinine due on 05/13/2025 Annual PCP Team Chronic Disease Visit due on 08/05/2025 BP Controlled (<130/80) due on 08/05/2025 Bone Density Screening Completed Influenza Vaccine Completed RSV Vaccine Completed Pneumococcal Vaccine: 50+ Completed ASSESSMENT/PLAN: 1. Controlled type 2 diabetes mellitus without complication, without long-term current use of insulin (HCC) - ICD9: 250.00, ICD10: E11.9 (primary diagnosis) - Controlled - Continue current medications - Blood glucose monitoring on a twice daily schedule - Counseled on healthy diet and regular exercise - Discussed need for and benefit of weight loss. BMI 33.24 kg/(m^2) - Follow up in 6 months, sooner should any other issues arise. - HEMOGLOBIN A1C (POC) - BLOOD SUGAR DIAGNOSTIC STRIPS - LANCETS - HEMOGLOBIN A1C - COMPLETE BLOOD COUNT AND DIFFERENTIAL 2. Mixed hyperlipidemia - ICD9: 272.2, ICD10: E78.2 - Control undetermined, due for labs - Continue current medications - Counseled on healthy diet and regular exercise - Discussed need for and benefit of weight loss. BMI 33.24 kg/(m^2) - Follow up in 6 months, sooner should any other issues arise. - LIPID PANEL BASIC - COMPREHENSIVE METABOLIC PANEL 3. Essential hypertension - ICD9: 401.9, ICD10: I10 - Controlled - Continue current medications - Recommend home blood pressure monitoring, to bring results to next visit - Encouraged sodium restriction, DASH or Mediterranean diet - Recommend regular aerobic exercise - Discussed need for and benefit of weight loss. BMI 33.24 kg/(m^2) - Follow up in 6 months for hypertension visit - COMPREHENSIVE METABOLIC PANEL Anay Lawrence APRN.JUANITA Prescription instructions reviewed with patient as applicable. Patient advised if symptoms do not improve or if symptoms worsen sooner, to contact their primary care physician. Potential red flag symptoms discussed with the patient. Reviewed appropriate action plan to take if red flag symptoms occur. Patient agreeable to treatment plan. Medical Decision Making: Problems: Moderate: 2+ stable chronic illnesses Data: Unique test(s) ordered: 3+ Risk: Moderate: Moderate risk from testing/treatment Medical Decision Making Level: 4 - Moderate documented in [facility] encounter Note* Telephone Encounter - Darcy Alonzo LPN - 07/17/2024 8:08 AM EST Change of pharmacy Prescription Refill Information The patient has been identified by name and date of : Yes Caregiver verified no other encounters exist for this prescription request: Yes Caregiver confirmed with patient/requestor that no other refills are due, in the near future, with this provider at this time: Yes The last office visit in the department: 05/06/2024 Does the patient have a future office visit with this provider/department: Yes Requested Prescriptions Pending Prescriptions Disp Refills citalopram (CELEXA) 40 mg tablet 90 tablet 1 Sig: Take 1 tablet by mouth once daily. Darcy Alonzo LPN July 17, 2024 8:09 AM [facility]01-31-2025 Miscellaneous Notes* Telephone Encounter - Darcy Alonzo LPN - 07/17/2024 8:08 AM EST Change of pharmacy Prescription Refill Information The patient has been identified by name and date of : Yes Caregiver verified no other encounters exist for this prescription request: Yes Caregiver confirmed with patient/requestor that no other refills are due, in the near future, with this provider at this time: Yes The last office visit in the department: 05/06/2024 Does the patient have a future office visit with this provider/department: Yes Requested Prescriptions Pending Prescriptions Disp Refills citalopram (CELEXA) 40 mg tablet 90 tablet 1 Sig: Take 1 tablet by mouth once daily. Darcy Alonzo LPN July 17, 2024 8:09 AM documented in this encounterMari[facility]01-29-2025 Telephone encounter Note * Telephone Encounter - Anay Lawrence APRN.CNP - 07/15/2024 12:17 PM EST Patient is due for diabetic follow-up at the end of July, please assist in scheduling. Anay Lawrence APRN.CNP [facility]01-29-2025 Miscellaneous Notes* Telephone Encounter - Anay Lawrence APRN.CNP - 07/15/2024 12:17 PM EST Patient is due for diabetic follow-up at the end of July, please assist in scheduling. Anay Lawrence APRN.CNP * Telephone Encounter - Elvia Middleton LPN - 07/15/2024 11:59 AM EST Prescription Refill Information The patient has been identified by name and date of : Yes Caregiver verified no other encounters exist for this prescription request: Yes Caregiver confirmed with patient/requestor that no other refills are due, in the near future, with this provider at this time: Yes The last office visit in the department: 06/03/2024 Does the patient have a future office visit with this provider/department: No Requested Prescriptions Pending Prescriptions Disp Refills SITagliptin phosphate (JANUVIA) 50 mg tablet 30 tablet 1 Sig: Take 1 tablet by mouth once daily. Elvia Middleton LPN July 15, 2024 12:00 PM documented in this encounterMari[facility]01-29-2025 Telephone encounter Note * Telephone Encounter - Elvia Middleton LPN - 07/15/2024 11:59 AM EST Prescription Refill Information The patient has been identified by name and date of : Yes Caregiver verified no other encounters exist for this prescription request: Yes Caregiver confirmed with patient/requestor that no other refills are due, in the near future, with this provider at this time: Yes The last office visit in the department: 06/03/2024 Does the patient have a future office visit with this provider/department: No Requested Prescriptions Pending Prescriptions Disp Refills SITagliptin phosphate (JANUVIA) 50 mg tablet 30 tablet 1 Sig: Take 1 tablet by mouth once daily. Elvia Middleton LPN July 15, 2024 12:00 PM [facility]01-29-2025 Instructions* Patient Instructions* Og Sifuentes MD - 07/15/2024 11:34 AM EST Restless Leg Syndrome (RLS) Continue medication(s) at dinner time for treatment of RLS. Nonmedical therapy for restless legs syndrome includes : cold/warm compresses, warm/hot baths or showers, gentle massage, mild leg stretching at nighttime, or magnesium supplements ( 250- 1000 mg at nighttime daily). Mentally alerting activities help too. Note the caffeine, alcohol, nicotine, antidepressants, anti-nausea meds and antihistamines can cause or worsen symptoms. Take Magnesium 500mg nightly documented in this encounterMarietta [facility] Clinic01-29-2025 History of Present illness Narrative* Rita Delgado MD - 07/15/2024 11:20 AM EST Images from the original note were not included. [facility] Follow up/ Established patient visit Date of last visit : 08/21/2023 I have communicated my name and active licensure. The patient's identity and physical location wereverified at the time of this visit. Either the patient or their legal residential sales representative has been informed of the risks and benefits of -- and alternatives to -- treatment through a remote evaluation andconsents to proceed with the evaluation remotely. Interval history : Elsa Pugh is a 69 yo F with PMH of CBP, DM, HTN, HLD, CABG. FU on RLS and LADAN on BiPAP. Plan from 02/12/24: LADAN: She is working on using her BiPAP more. She fell asleep downstairs, and her bedroom is upstairs. Will ask her to take her nap upstairs so she can use her BiPAP too. RLS: Lyrica does not seem to be controlling her RLS now. She is on 150 mg twice a day Will get ferritin/iron panel, no iron supplement for 3 days, and need to be fasting blood drawn Would like to try suboxone starting but she had stroke like symptoms with tramadol. Also cannot trymethadone given side effects with darvocet. Will try TOMAC (Nidra) SLEEP APNEA Sleep apnea type : LADAN, Most Recent Apnea-Hypopnea Index (AHI): 6.0 Treatment : PAP therapy DME: [facility] PAP History: Uses AutoPAP for 4 hours per night, not wearoing it on nights she has RLS sxs and not Current PAP setting: Auto Max IPAP 13 Min EPAP 5 PS 5 cm H2O. Difficulties with Bilevel PAP: None Reviewed objective PAP compliance data: Yes Mask type: nasal mask Mask issues: None Uses chin strap: Yes There is a perceived benefit by the patient: waking up without a headaches Observers report persistence of snoring with Bilevel PAP use. RLS Current treatment : Medication(s) and timing : Lyrica 150mg at 7 PM and other one at 10 PM Status : same Time of day symptoms begin : 4:30 -5 PM Time of day symptoms are worst : even worse in the middle of the night - will strech walking around Time of day when symptom-free : in the AM SLEEP HYGIENE QUESTIONS: Bedtime : 10 PM Wake up Time : 5 AM Time it takes to fall sleep : quickly Number of times patient wakes up per night : 2 hour long awakening 12:30 AM Difficult to tell if its hip pain from sciatica or RLS Reason (s) why patient wakes up during the night : R:S Estimated total sleep time ( in a 24 hour period of time) : 5-6 hours at night Naps : Yes for couple hours around 1 PM PATIENT-ENTERED QUESTIONNAIRE SLEEP SCORES 07/12/2024 Sleep Questions Reason for visit: Sleep apnea Narcolepsy Restless Legs Syndrome On average, hours of sleep in 24 hours: 5 Accidents or near accidents due to drowsy drivin Multiple values from one day are sorted in reverse-chronological order 02/12/2024 04/16/2024 07/12/2024 [place] Sleepiness Scale Score 18 (Excessive daytime sleepiness present) 19 (Excessive daytime sleepiness present) 12 (Excessive daytime sleepiness present) 02/12/2024 04/16/2024 07/12/2024 PROMIS CAT Sleep Disturbance PROMIS Sleep Disturbance T-Score 52 (within normal limits) 58 (mild) 58 (mild) PROMIS Sleep Disturbance Percentile 42 21 21 12/18/2023 04/16/2024 07/12/2024 Insomnia Severity Index Score 13 8 12 02/12/2024 04/16/2024 07/12/2024 Restless Leg Syndrome Score 16 (Moderate symptoms) 24 (Severe symptoms) 23 (Severe symptoms) 04/16/2024 06/03/2024 07/12/2024 PHQ-9 Score 8 10 11 06/12/2023 10/07/2023 02/12/2024 PROMIS Global Health - (T-Scores - the mean of general population = 50. Five points is a clinicallymeaningful difference.) Physical T-Score 42.3 42.3 42.3 Mental T-Score 41.1 43.5 43.5 PMH, PSH, SH: Reviewed SLEEP RELATED ROS Review of Systems ALLERGIES Allergen Reactions Asa [Salicylates] Vomiting Augmentin [Amoxicil* GI Upset Belladonna [Bellado* Intolerance GI upset Benazepril Cough Sep 2005 Butazolidin [Phenyl* Unknown Carbidopa Darvocet-N 100 [Pro* Intolerance HEADACHE Doxycycline Other: See Comments Patient ended up in ER with tongue and throat swelling- allergy not ruled out Guaifenesin-Sodium * Ibuprofen Rash Jardiance [Empaglif* Intolerance Vaginal itching Levaquin [Levofloxa* Other: See Comments Hallucinations anxiety numbness tingling Lopid [Gemfibrozil] Niacin Niaspan [Niacin (An* Penicillins Hives Provigil [Modafinil] Mental Status Change hallucinations Ramipril Unknown Gdwydmw-Bgw-Nni Red* Myalgia Sulfa (Sulfonamide * Tramadol Other: See Comments stroke like symptoms CURRENT MEDICATIONS: urea (CARMOL) 40 % Apply to affected area once daily. (Patient not taking: Reported on 07/02/2024) evolocumab 140 mg/mL subcutaneous pen injector (REPATHPug PharmZOËICK) Inject 140 mg subcutaneously every 2 weeks. albuterol HFA (PROVENTIL HFA, VENTOLIN HFA) 90 mcg/actuation inhaler Inhale 2 Puffs as instructed every 4 hours as needed for wheezing/shortness of breath. estradiol (ESTRACE) 0.01 % (0.1 mg/gram) vaginal cream Use 1 g vaginally once daily. (Patient not taking: Reported on 07/02/2024) albuterol HFA (PROVENTIL HFA, VENTOLIN HFA) 90 mcg/actuation inhaler Inhale 2 Puffs as instructed every 4 hours as needed for wheezing/shortness of breath. SITagliptin phosphate (JANUVIA) 50 mg tablet Take 1 tablet by mouth once daily. metFORMIN (GLUCOPHAGE) 1,000 mg tablet Take 1 tablet by mouth two times a day with meals. pregabalin (LYRICA) 150 mg capsule TAKE 1 CAPSULE BY MOUTH TWICE DAILY AT SUPPER AND BEDTIME citalopram (CELEXA) 40 mg tablet Take 1 tablet by mouth once daily. CPAP/BIPAP/OTHER Type .CPAPSettings into a note to see current settings/supplies/DME information. fenofibrate nanocrystallized (TRICOR) 145 mg tablet Take 1 tablet by mouth once daily. metoprolol succinate ER (TOPROL XL) 25 mg 24 hr tablet Take 0.5 tablets by mouth once daily. aspirin, enteric coated (ASPIRIN, ENTERIC COATED) 81 mg EC tablet Take 1 tablet by mouth once daily. promethazine (PHENERGAN) 25 mg tablet Take 1 tablet by mouth every 6 hours as needed for nausea/vomiting. clopidogrel (PLAVIX) 75 mg tablet Take 75 mg by mouth once daily. isosorbide mononitrate ER (IMDUR) 60 mg 24 hr tablet Take 90 mg by mouth once daily. pantoprazole DR (PROTONIX) 40 mg tablet Take 1 tablet by mouth once daily. Take on empty stomach, 1/2 hr before meal. blood sugar diagnostic (BLOOD GLUCOSE TEST) test strip Test blood sugar(s) 2 times daily. Dx: Type 2 DM - Controlled E11.9 Insulin: No Lancets lancets Test blood sugar(s) 2 times daily. Dx: Type 2 DM - Controlled E11.9 Insulin: No cholecalciferol (VITAMIN D-3) 50 mcg (2,000 unit) tablet Take 2,000 Units by mouth once daily. CPAP/BIPAP/OTHER Formal mask fitting to consider smaller FFM like dreamwear due to dry eyes and supplies for bipap 13/8cmH2O DME [facility] CPAP/BIPAP/OTHER Replacement auto bipap 13/8 with PS of 5cmH2O DME [facility] CPAP/BIPAP/OTHER Settings decrease to autobipap 13/8cmH2O DME [employer] BIPAP DME change for supplies. Pt has a [employer] Auto BiPAP IPAP max 18, EPAP min 6 CM H2O, PS 5 cmH2O. mask, filters, heated humidity & tubing, [employer] supplies. LADAN G47.33 red yeast rice 600 mg tab ascorbic acid, vitamin C, (VITAMIN C) 500 mg tablet Take 500 mg by mouth daily at bedtime. nitroglycerin sublingual (NITROQUICK) 0.4 mg SL tablet Dissolve 0.4 mg under the tongue. MAGNESIUM ORAL Take 300 mg by mouth twice daily. some days takes three tablets ranolazine ER (RANEXA) 500 mg 12 hr tablet Take 1,000 mg by mouth twice daily. PHYSICAL EXAMINATION: General: Alert/awake/oriented, NAD, well-nourished, pleasant. HEENT: oral exam normal Pulmonary: no signs of respiratory distress, no audible wheezes, cough, or sob jewelry technician: symmetric spontaneous facial muscle movement, no gross pupillary abnormality Motor: moves all extremities equal and symmetric Neuro: Awake, alert, speech fluent, comprehension, naming, repetition intact. Short and assisted memory intact. Skin: no rash noted on face IMPRESSION: Ladan (obstructive sleep apnea) (primary encounter diagnosis) Rls (restless legs syndrome) Elsa Pugh is a 69 yo F with PMH of CBP, DM, HTN, HLD, CABG. FU on RLS and LADAN on BiPAP. Sheis using BiPAP when she is asleep but limited by her RLS symptoms which keep her awake. She is ableto fall asleep with the help of Lyrica 150mg but around midnight is up for 2 hours due to RLS. At time she will strech watch and elevate legs. It is unclear if this awakening is due to sciatica pain or RLS. She is receiving injections for her back pain through pain management in the next couple months. She has RLS sxs from awakening to bedtime worse around 4PM. Clinical Global Impression of Change ( CGI-C) Compared to the patient's condition at baseline, how much has the patient changed? No change PLAN: LADAN on BiPAP - Continue Auto Bilevel PAP IPAP 13 EPAP 5 PS 5 cmH2O. Mask: Nasal DME [facility] - Remember to clean your mask and equipment regularly, as directed. - You should be eligible for new supplies approximately every 3-6 months, depending on your insurance coverage. Contact your Durable Medical Equipment (DME) company for new supplies as needed. -Once back pain and RLS under better control hope to increase BiPAP compliance RLS -Continue Mg but increase to 500mg -Change timings of Lyrica 150mg at 4PM and BT -Last Ferritin checked 02/19/24 157 -FU 1 month post pain management appt. Og Sifuentes MD PGY-4 Sleep Medicine Fellow, [facility] [phone] Attending Note I evaluated the patient and personally participated in the nicholson components. I agree with the fellow's findings and plan as documented and have discussed the case and management of the patient's care with the fellow. Patient has not been able to use her BiPAP as well because of her restless leg. She is unsure if itis her back pain or her legs. Lyrica is not helping as well. She is going to have her back injection, but not until August. She also had her iron level drawn, and ferritin level was 157 on 02/19/2024. She takes magnesium 200 mg a day. Plan: Increase magnesium to 500 mg daily Suggest patient to call her pain provider if there is any cancellation to move up her injection time Return to sleep medicine one month after her injection. At the time will see how her RLS is , and also how her BiPAP usage might be. Discussed with patient. Medical Decision Making: Problems: Low: Stable chronic illness Moderate: 1+ chronic illnesses with change Data: Unique test result(s) reviewed: 1 Risk: Moderate: Drug management Medical Decision Making Level: 4 - Moderate Signature: Rita Delgado MD Date: 07/15/2024 Time: 1:48 PM documented in this encounterMari[facility]01-29-2025 [facility] Tele[facility] encounter Note* Telephone Encounter - Meredith Martin - 07/02/2024 1:43 PM EST Faxed anticoag letter to Dr. Yue Preciado at [facility] at , PH:[phone]. Fax confirmation received. Meredith Martin [facility]01-16-2025 Miscellaneous Notes* Telephone Encounter - Meredith Martin - 07/02/2024 1:43 PM EST Faxed anticoag letter to Dr. Yue Preciado at [facility] at , PH:[phone]. Fax confirmation received. Meredith Martin documented in this encounterMarietta [facility] Clinic01-16-2025 Telephone encounter Note * Telephone Encounter - Meredith Martin - 07/02/2024 1:21 PM EST Procedure(s) being scheduled: Epidural Steroid Injection 1.Are you diabetic Yes. Please list the current medications being prescribed metforman 2. Are you on any blood thinners? Yes. Please list the current medications being prescribed Flavix. If yes, does it require a hold? Yes If yes, was approval letter sent? Yes 3. Are you taking any aspirin? Yes. Please list the current medications being prescribed 81mg. 4. Are you currently taking any antibiotics? No If yes, is it prophylactic or for treatment of an infection? no 5. Do you have any allergies to latex? No 6. Do you have any allergies to seafood or shellfish? No 7. Do you have any allergies to x-ray dye? No 8. Does this procedure require a milk delivery driver? Yes If yes, has patient been notified that a milk delivery driver is needed and must be present at check in? yes 9. Were the pre-procedure instructions explained and provided to the patient? Yes 10. Do you have a pacemaker? No 11. Do you have an internal stimulator of any kind? No If yes, please bring the remote with you to your procedure visit. Meredith Martin [facility]01-16-2025 Miscellaneous Notes* Telephone Encounter - Meredith Martin - 07/02/2024 1:21 PM EST Procedure(s) being scheduled: Epidural Steroid Injection 1.Are you diabetic Yes. Please list the current medications being prescribed metforman 2. Are you on any blood thinners? Yes. Please list the current medications being prescribed Flavix. If yes, does it require a hold? Yes If yes, was approval letter sent? Yes 3. Are you taking any aspirin? Yes. Please list the current medications being prescribed 81mg. 4. Are you currently taking any antibiotics? No If yes, is it prophylactic or for treatment of an infection? no 5. Do you have any allergies to latex? No 6. Do you have any allergies to seafood or shellfish? No 7. Do you have any allergies to x-ray dye? No 8. Does this procedure require a milk delivery driver? Yes If yes, has patient been notified that a milk delivery driver is needed and must be present at check in? yes 9. Were the pre-procedure instructions explained and provided to the patient? Yes 10. Do you have a pacemaker? No 11. Do you have an internal stimulator of any kind? No If yes, please bring the remote with you to your procedure visit. Meredith Martin documented in this encounterMarietta Osteopathic Clinic01-16-2025 NoteHNO ID: [id number] Author: BAYLEE COLIN APRN.NUTRITION CLUB AMBASSADOR Service: ? Author Type: Nurse Practitioner Type: Progress Notes Filed: 07/02/2024 13:34 Note Text: [facility] Today's Date: 07/02/2024 Last Visit: N/A Name: Elsa Pugh : 1955 Purpose: Follow-up Patient Evaluation - This is an established patient, returning today for continued evaluation and management of the chief complaint noted below Chief complaint: low back pain Referring Clinician: Gabriela Linda Pertinent Past Medical History: polyneuropathy , Coronary Artery Disease (CAD), Hypertension (HTN), Hyperlipidemia (HLD), Obstructive Sleep Apnea, Gastroesophageal Reflux Disease (GERD), Diabetes (DM) Type 2, Anxiety (LOVE) R knee torn menicus, Pertinent Past Surgeries: ROSE MARY Flor 1961, quadruple coronary bypass 2001, 17 cardiac stents over the last 21 years, lap jerry 1971 Plan at last visit: (Seen on 04/04/2023 by Baylee Colin CNP) IMPRESSION: 68 year old female presents with complaint(s) of Low back pain with radiation as described above. We will continue current medication regime. After reviewing MRI and patient's pain description, we will attempt to interlaminar epidural steroid injection L3-L4 approach to see if that will help with the pain. 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 Patient is in agreement with the plan. Diagnoses: (M54.50, G89.29) Chronic bilateral low back pain without sciatica (primary encounter diagnosis) (M51.36) Degeneration of lumbar intervertebral disc (M51.26) Displacement of lumbar intervertebral disc without myelopathy (M51.37) Degeneration of lumbar or lumbosacral intervertebral disc (M54.16) Lumbar radiculopathy PLAN: Elsa Katherine Pugh would benefit from the following to reach personal goals for decreasing pain, improving function and work participation, and/or improving quality of life: Medications: No Changes - Continue Current Medications Interventional Procedures: Epidural Steroid Injection - Interlaminar Approach (ILESI) under fluoroscopic guidance NONE at L3-4 Taking Anticoagulants: None, Plavix (7 days when hold needed) Lumbar Epidural (HOLD) Brand Marketing Coordinator Needed: Epidural - YES Relevant Allergies: None Additional Info: None Studies: None Functional Orthodox: NONE Referrals: No additional considerations at present Follow-up: 1 month after injection with Physician or MARTH[facility] In Person Depending on response to the above plan, consider: TFESI Interval History: Overall pain and functional disability since last visit: Unchanged New Complaints since last visit: No Pain Description: Timing: Constant Character: Aching, Shooting Primary Location: low back Radiation: into the left hip and down side of her left thigh ending above her knee Exacerbating factors: standing Relieving factors: sitting and elevating the legs laying in bed Interferes with: standing, work, and sleeping The patient reports leg weakness Patient is here after an extended period of time. Patient stating that she continues to have low back pain with radiation into her left hip and her left upper thigh. Patient's pain is described above. Patient stating standing for 5 hours at her job and porras increases the pain. Patient stating that she is using a cane for stability as by the end of that time she can be miserable. Patient is here to see what can be done for her pain. Patient was scheduled for injections but did not get them done. Current Pain Medications: Neuropathics: Lyrica 150 mg bid NSAIDS: no nsaids due to GI distress Muscle Relaxants: Topicals: aspra cream and minimal oil Other Prescription or OTC Pain Medications: tylenol very occasionally Opioids (when applicable): Anti-depressants or Mood-Stabilizers: Celexa Anti-Coagulants: Plavix Current Therapies Attended: 12/19/2022-01/16/2023 04/04/2023 07/02/2024 AG SPINE COMBINATION Questionnaire GREENLIGHT Completed Date 04/04/2023 Questionnaire Opiod Risk Tool Opiod Risk Tool Completed Date 04/04/2023 07/02/2024 Comments Moderate risk-7 Opioid Risk Tool Opiod Risk Tool Date Completed 07/02/2024 Comments Moderate risk-7 (All drug screens are appropriate unless indicated otherwise) Notable Events During Course of Treatment: History of Present Illness (HPI): 04/04/2023 - Initial HPI (Obtained by Baylee Colin CNP). DURATION AND ONSET: The pain complaint has been present for approximately 10/2022. The pain had a gradual onset. The mechanism of injury is unknown. PRIOR TREATMENTS: Medications (tylenol), Physical Therapy, Daily Home Exercise Program as directed by PT/Chiropr (more content not included)...[facility]01-16-2025 History of Present illness Narrative* Baylee Colin APRN.JUANITA - 07/02/2024 12:53 PM EST Images from the original note were not included. [facility] Today's Date: 07/02/2024 Last Visit: N/A Name: Elsa Pugh : 1955 Purpose: Follow-up Patient Evaluation - This is an established patient, returning today for continued evaluation and management of the chief complaint noted below Chief complaint: low back pain Referring Clinician: Gabriela Linda Pertinent Past Medical History: polyneuropathy , Coronary Artery Disease (CAD), Hypertension (HTN),Hyperlipidemia (HLD), Obstructive Sleep Apnea, Gastroesophageal Reflux Disease (GERD), Diabetes (DM) Type 2, Anxiety (LOVE) R knee torn menicus, Pertinent Past Surgeries: T& A 1961, quadruple coronary bypass 2001, 17 cardiac stents over thelast 21 years, lap jerry 1971 Plan at last visit: (Seen on 04/04/2023 by Baylee Colin CNP) IMPRESSION: 68 year old female presents with complaint(s) of Low back pain with radiation as described above. We will continue current medication regime. After reviewing MRI and patient's pain description, we will attempt to interlaminar epidural steroid injection L3-L4 approach to see if that willhelp with the pain. 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 Patient is in agreement with the plan. Diagnoses: (M54.50, G89.29) Chronic bilateral low back pain without sciatica (primary encounter diagnosis) (M51.36) Degeneration of lumbar intervertebral disc (M51.26) Displacement of lumbar intervertebral disc without myelopathy (M51.37) Degeneration of lumbar or lumbosacral intervertebral disc (M54.16) Lumbar radiculopathy PLAN: Elsa Pugh would benefit from the following to reach personal goals for decreasing pain, improving function and work participation, and/or improving quality of life: Medications: No Changes - Continue Current Medications Interventional Procedures: Epidural Steroid Injection - Interlaminar Approach (ILESI) under fluoroscopic guidance NONE at L3-4 Taking Anticoagulants: None, Plavix (7 days when hold needed) Lumbar Epidural (HOLD) Brand Marketing Coordinator Needed: Epidural - YES Relevant Allergies: None Additional Info: None Studies: None Functional Orthodox: NONE Referrals: No additional considerations at present Follow-up: 1 month after injection with Physician or MARTHA In Person Depending on response to the above plan, consider: TFESI Interv al History: Overall pain and functional disability since last visit: Unchanged New Complaints since last visit: No Pain Description: Timing: Constant Character: Aching, Shooting Primary Location: low back Radiation: into the left hip and down side of her left thigh ending above her knee Exacerbating factors: standing Relieving factors: sitting and elevating the legs laying in bed Interferes with: standing, work, and sleeping The patient reports leg weakness Patient is here after an extended period of time. Patient stating that she continues to have low back pain with radiation into her left hip and her left upper thigh. Patient's pain is described above. Patient stating standing for 5 hours at her job and porras increases the pain. Patient stating thatshe is using a cane for stability as by the end of that time she can be miserable. Patient is here to see what can be done for her pain. Patient was scheduled for injections but did not get them done. Current Pain Medications: Neuropathics: Lyrica 150 mg bid NSAIDS: no nsaids due to GI distress Muscle Relaxants: Topicals: aspra cream and minimal oil Other Prescription or OTC Pain Medications: tylenol very occasionally Opioids (when applicable): Anti-depressants or Mood-Stabilizers: Celexa Anti-Coagulants: Plavix Current Therapies Attended: 12/19/2022-01/16/2023 04/04/2023 07/02/2024 AG SPINE COMBINATION Questionnaire GREENLIGHT Completed Date 04/04/2023 Questionnaire Opiod Risk Tool Opiod Risk Tool Completed Date 04/04/2023 07/02/2024 Comments Moderate risk-7 Opioid Risk Tool Opiod Risk Tool Date Completed 07/02/2024 Comments Moderate risk-7 (All drug screens are appropriate unless indicated otherwise) Notabl e Events During Course of Treatment: History of Present Illness (HPI): 04/04/2023 - Initial HPI (Obtained by Baylee Colin CNP). DURATION AND ONSET: The pain complaint has been present for approximately 10/2022. The pain had a gradual onset. The mechanism of injury is unknown. PRIOR TREATMENTS: Medications (tylenol), Physical Therapy, Daily Home Exercise Program as directed by PT/Chiropractor, PAIN DESCRIPTION: Currently, the pain is experienced as constant. It is described as being Aching, Stabbing, pressure. The pain is primarily localized in the across the low back. There is radiation into the left leg in the right hip into the groin and into the top of her left leg. The pain is exacerbated by Standing, Standing 10 minutes. The pain is alleviated by Sitting. The pain interferes withphysical activity, work, walking, sleeping, and household cleaning. RED FLAG SYMPTOMS: denies red flags. 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 Patient states she stands most of the time she is there, where she works 4-hour shifts at a time. Patient states by the time she is out of work she is miserable she does have to sit and try to calm down her pain as it is difficult to stand that length of time on certain days. Patient states she loves her job but the pain in her back is increasing. Patient does complain of left hip pain patient has had x-rays done which were negative. Patient is newly within the last 2 years. Patient also has a strong family stress due to medical issues. Treatment History: PAIN PROCEDURES: DATE PROCEDURE IMPROVEMENT To date, no interventional pain management procedures performed at this practice. MEDICATIONS Taken TO DATE (for the chief complaint(s)): Neuropathics: Lyrica (Pregabalin): Beneficial NSAIDS: None not taking due to GI symptoms Muscle Relaxants: none Topicals: Gbcu-Ngf-Tjcaojf (OTC): Discontinued - No Benefit Other Prescription or OTC Pain Medications: Tylenol (Acetaminophen): Beneficial Opioids: None Past Therapies Attended: Physical TherapyTreatment dates: Between 12/2022 and 01/2023. Data Reviewed Today: Allergies: ALLERGIES Allergen Reactions Asa [Salicylates] Vomiting Augmentin [Amoxicil* GI Upset Belladonna [Bellado* Intolerance GI upset Benazepril Cough Sep 2005 Butazolidin [Phenyl* Unknown Carbidopa Darvocet-N 100 [Pro* Intolerance HEADACHE Doxycycline Other: See Comments Patient ended up in ER with tongue and throat swelling- allergy not ruled out Guaifenesin-Sodium * Ibuprofen Rash Jardiance [Empaglif* Intolerance Vaginal itching Levaquin [Levofloxa* Other: See Comments Hallucinations anxiety numbness tingling Lopid [Gemfibrozil] Niacin Niaspan [Niacin (An* Penicillins Hives Provigil [Modafinil] Mental Status Change hallucinations Ramipril Unknown Klllvoc-Eqe-Euj Red* Myalgia Sulfa (Sulfonamide * Tramadol Other: See Comments stroke like symptoms 06/26/2024 06/30/2024 INTAKE PAIN ASSESSMENT Are you having pain associated with your visit today? Yes, Provider notified Yes, Provider notified Pain Scales Verbal (Numeric Rating or Visual Analog Scale) Verbal (Numeric Rating or Visual Analog Scale) Pain Level 6 7 Pain Location Foot-Left Back-Lower Description Sharp;Shooting;Radiating Aching;Radiating;Stabbing;Stiffness Duration Amount of Time 2 Duration Units Months Months Frequency Continuous Intermittent Intervention/Comfort measure Relaxation;Reposition Reposition;Exercise;Massage;Rocking/holding;Swaddling Compliance: PDMP website checked and validated on 07/02/2024 by Baylee Colin APRN.[employer] All prescriptions have been APPROPRIATELY filled. No suspicious activity was identified. Recent Drug screens: 04/04/2023 07/02/2024 AG SPINE COMBINATION Questionnaire GREENLIGHT Completed Date 04/04/2023 Questionnaire Opiod Risk Tool Opiod Risk Tool Completed Date 04/04/2023 07/02/2024 Comments Moderate risk-7 Opioid Risk Tool Opiod Risk Tool Date Completed 07/02/2024 Comments Moderate risk-7 (All drug screens are appropriate unless indicated otherwise) Risk Assessment: LOVE-7: 04/04/2023 04/07/2024 LOVE - 7 SCORES Score 2 6 (0-4) minimal anxiety, (5-9) mild anxiety, (10-14) moderate anxiety, (15-21) severe anxiety PHQ-9: 02/12/2024 04/16/2024 06/03/2024 PHQ-9 Score 5 8 10 (0-4) minimal depression, (5-9) mild depression, (10-14) moderate depression, (15-19) moderately severe depression, (20-27) severe depression Diagnostic Studies: Relevant Imaging: MRI Spine Report MRI LUMBAR SPINE WO IVCON Exam End: 02/07/2023 1:19 PM (Final result) Narrative: * * *Final Report* * * DATE OF EXAM: Feb 07 2023 1:19PM WR [id number] - MRI LUMBAR SPINE WO IVCON / PROCEDURE REASON: Acute bilateral low back pain with left-sided sciatica * * * * Physician Interpretation * * * * EXAMINATION: MRI LUMBAR SPINE WO IVCON CLINICAL HISTORY: Acute bilateral low back pain with left-sided sciatica TECHNIQUE: Routine lumbosacral spine MR protocol without gadolinium. MQ: [id number] COMPARISON: Lumbar spine radiograph 01/18/2023 RESULT: Counting reference: Lumbosacral junction. For the purposes of this report, L4-5 is considered the level of the iliac crest and assume there are 5 lumbar-type vertebrae. Anatomic variant: None. Localizer images: No additional findings. Alignment: Grade 1-2 anterolisthesis of L5 on S1 with questionable LEFT L5 pars interarticularis defect. Bone marrow signal/fracture: T2/STIR hyperintensity within the RIGHT L5 pedicle, pars interarticularis, and superior/inferior articulating facets. No evidence of pathologic marrow infiltration. No evidence of prior fracture. Severe degenerative disc disease with height loss and disc desiccation at L5-S1. Scattered degenerative disc disease with mild disc desiccation and height loss throughout the remaining lumbar spine. Mild degenerative L5 vertebral body height loss of the mid and dorsal portion with associated endplate degenerative changes. Conus: The conus terminates at L1-L2 and is within normal limits of morphology and signal. Normal course and caliber of the descending cauda equina nerve roots. Paraspinal soft tissues: Paraspinal soft tissues are within normal limits. Lower thoracic spine: Visualized lower thoracic canal and foramina are patent. L1-L2: Canal and foramina are patent. L2-L3: Canal and foramina are patent L3-L4: Mild spinal canal narrowing secondary to diffuse disc bulge, bilateral ligamentum flavum hypertrophy, and moderate bilateral facet arthropathy. Bilateral foramina are patent. L4-L5: Diffuse disc bulge, bilateral ligamentum flavum hypertrophy, and moderate to severe bilateral facet arthropathy without significant spinal canal or neuroforaminal narrowing. L5-S1: Anterolisthesis contributes to moderate to severe bilateral neural foraminal narrowing. Canal remains patent. Sacrum and iliac wings: The visualized sacrum and iliac wings are within normal limits. Impression: IMPRESSION: Grade 1-2 anterolisthesis of L5 on S1 with questionable chronic LEFT L5 pars interarticularis defect contributing to moderate to severe bilateral L5-S1 neural foraminal narrowing. Marrow edema in the RIGHT L5 pedicle, pars interarticularis, and along the superior/inferior articulating facets may represent sequela of degenerative change versus acute stress reaction. CT lumbar spine without contrast may be helpful for further characterization if clinically warranted. No high-grade lumbar spinal canal stenosis. Anatomic Lumbar Variant: None. L4-5 is considered the level of the iliac crest and assume there are 5 lumbar-type vertebrae. County Attorney: LESLIE Transcribe Date/Time: Feb 07 2023 1:59P Dictated by : JARED VILLEGAS MD This examination was interpreted and the report reviewed and electronically signed by: JARED VILLEGAS MD on Feb 07 2023 2:08PM EST DATE OF EXAM: Jan 08 2023 12:08PM WOX [id number] - XR HIP 3V PELV+ AP/LAT LT / PROCEDURE REASON: Hip pain, left * * * * Physician Interpretation * * * * EXAMINATION: XR HIP 3V PELV+ AP/LAT LT CLINICAL HISTORY: Left hip pain that has been getting more painful recently. No known injury. Hip pain, left Technique: XR HIP 3V PELV+ AP/LAT LT -- LEFT with 3 views on 3 images Comparison: None RESULT: No fracture or dislocation. Left hip joint is maintained. No significant osteophytosis. No erosions or chondrocalcinosis. SI joints and pubic symphysis are intact. Degenerative changes in the lower lumbar spine. Coarse chronic calcification of bilateral iliolumbar ligaments. Electrodiagnostic Study (EMG): None Recent Labs: Creatinine Date Value Ref Range Status 05/13/2024 0.91 0.58 - 0.96 mg/dL Final Current Medications, Past Medical History, Past Surgical History, Family History, Social History and Review of Systems: On today's date, noted above, I have confirmed and edited as necessary, the PFSH and ROS obtained by others. Physical Exam: 07/02/24 1255 Pulse: (!) 51 Resp: 18 SpO2: 97% Physical Exam Vitals reviewed. Constitutional: General: She is not in acute distress. Appearance: She is not ill-appearing. HENT: Head: Normocephalic and atraumatic. Eyes: Conjunctiva/sclera: Conjunctivae normal. Cardiovascular: Pulses: Normal pulses. Pulmonary: Effort: Pulmonary effort is normal. No respiratory distress. Musculoskeletal: Thoracic back: No tenderness or bony tenderness. No scoliosis. Lumbar back: Tenderness present. Decreased range of motion. Positive right straight leg raise test and positive left straight leg raise test. No scoliosis. Comments: Hip Flexion: Right- 5/5; Left- 5/5 Knee Extension: Right- 5/5; Left- 5/5 Dorsiflexion: Right- 4/5; Left- 4/5 Plantarflexion: Right- 4/5; Left- 4/5 Special Tests- Facet Loading: Right-Positive; Left Positive SI Compression:Negative COREY:Right-Positive ; Left Positive Skin: General: Skin is warm and dry. Neurological: Mental Status: She is alert and oriented to person, place, and time. Motor: Weakness (left leg) present. Gait: Gait abnormal (antalgic with a cane). Tandem walk normal. Deep Tendon Reflexes: Reflexes are normal and symmetric. Reflex Scores: Patellar reflexes are 2+ on the right side and 2+ on the left side. Comments: Psychiatric: Mood and Affect: Mood and affect normal. Behavior: Behavior normal. Behavior is cooperative. IMPRESSION: 69 year old female presents with complaint(s) of Low back pain with radiation as described above. We will continue current medication regime. After reviewing MRI and patient's pain description, we will attempt to interlaminar epidural steroid injection L3-L4 approach to see if that willhelp with the pain. 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 Patient is in agreement with the plan. Diagnoses: (M54.50, G89.29) Chronic bilateral low back pain without sciatica (primary encounter diagnosis) (M51.362) Degeneration of intervertebral disc of lumbar region with discogenic back pain and lower extremity pain (M54.16) Lumbar radiculopathy PLAN: Elsa Puhg would benefit from the following to reach personal goals for decreasing pain, improving function and work participation, and/or improving quality of life: Medications: No Changes - Continue Current Medications Interventional Procedures: Epidural Steroid Injection - Interlaminar Approach (ILESI) under fluoroscopic guidance NONE at L3-4 Taking Anticoagulants: None, Plavix (7 days when hold needed) Lumbar Epidural (HOLD) Brand Marketing Coordinator Needed: Epidural - YES Relevant Allergies: None Additional Info: None Studies: None Functional Orthodox: NONE Referrals: No additional considerations at present Follow-up: 1 month after injection with Physician or MARTHA In Person Depending on response to the above plan, consider: left GTB vs TFESI Patient Education, Compliance and Clinic Policies Reviewed and/or Discussed Today: None Attribution: In addition to reviewing the information noted above, some elements copied from my most recent clinical note(s), including the physical exam (completed in entirety today), and the impression and plan sections, have been updated where appropriate. All reflect current medical decision making from today's date. Baylee Colin APRN.[employer] [facility] * Ninoska Mccabe LPN - 07/02/2024 12:48 PM EST Review of Systems Constitutional: Positive for activity change. Negative for chills, fever and unexpected weight change. Genitourinary: Negative for difficulty urinating. Musculoskeletal: Positive for arthralgias, back pain, gait problem and joint swelling. Negative formyalgias, neck pain and neck stiffness. Neurological: Positive for weakness, numbness and headaches. Psychiatric/Behavioral: Positive for dysphoric mood and sleep disturbance. Negative for suicidal ideas. The patient is nervous/anxious. [facility] NoteHNO ID: [id number] Author: NINOSKA MCCABE LPN Service: ? Author Type: LICENSED NURSE Type: Progress Notes Filed: 07/02/2024 13:34 Note Text: Review of Systems Constitutional: Positive for activity change. Negative for chills, fever and unexpected weight change. Genitourinary: Negative for difficulty urinating. Musculoskeletal: Positive for arthralgias, back pain, gait problem and joint swelling. Negative for myalgias, neck pain and neck stiffness. Neurological: Positive for weakness, numbness and headaches. Psychiatric/Behavioral: Positive for dysphoric mood and sleep disturbance. Negative for suicidal ideas. The patient is nervous/anxious.[facility]01-10-2025 Instructions* Patient Instructions* Justice Bateman - 06/26/2024 11:56 AM EST Images from the original note were not included. What is Plantar Fasciitis? Plantar fasciitis is the most common cause of heel pain. The pain is caused by inflammation of the plantar fascia. If you strain your plantar fascia, it becomes weak, swollen and irritated (inflamed). The resulting pain may be isolated in the heel or may appear at different points on the bottom of the foot, from time to time; it may occur in one foot or both. Some think that plantar fasciitis pain is caused by irritation of nerves from tissue swelling or inflammation, but it is debatable. Plantar fasciitis is common in middle-aged people; it also occurs in younger people who are on their feeta lot, such as athletes or soldiers. The plantar fascia is a strong band of connective tissue that extends from the base of the toes, along the bottom of the foot, to the bottom of the heel (calcaneous bone); it acts like a bowstring tomaintain the arch of the foot. What are heel spurs? The inflammatory reaction of the heel bone may produce spike-like projections of new bone, called heel spurs. The spurs sometimes show on X-rays. They neither cause the initial pain nor do they causethe initial problem. However, later, having to walk on spurs may cause sharp pain. What causes plantar fasciitis? Plantar fasciitis is caused by straining the ligament that supports your arch. Repeated strain can cause tiny tears in the ligament. These lead to pain and swelling. During walking, the plantar fascia experiences tension up to twice the body weight with each step. While this is normal, those who spend much time on their feet, such as nurses, urologist md/waiters, andmail carriers, often experience plantar fasciitis. Athletes involved in tennis or other racquet sports, race walking, jogging or running also show a higher incidence of plantar fasciitis than do those participating in other activities. Thus, it's clear that plantar fasciitis is predominantly an overuse injury. In fact, any activity that results in prolonged tension and stress on the plantar fascia may cause plantar fasciitis. It is possible that changes in footwear may play a role in causing plantar fasciitis, no matter what activity is occurring. Those who are overweight are prone to plantarfasciitis. This is true even for sedentary people who get little physical activity. Abnormalities of the foot and ankle joints may predispose some individuals to development of plantar fasciitis (spec ifically, over pronation of the subtalar joint). Contributing Factors * Flat feet * Toe running, hill running * Sudden weight increase * High-arched, rigid feet * Soft terrain, e.g. running on sand * Obesity * Pronated feet (rolled inward) * Sudden increase in activity* Family tendency * Poor shoe support * Worn out or poorly fitted shoes * Increasing age * Walking,standing or running for long periods of time, especially on hard surfaces. How is the Injury Treated? Rest Your Feet: Limit, or if possible, stop activities that are causing your heel pain. Try to avoid running or walking on hard surfaces, such as concrete. Use pain as your guide. If your foot is toopainful, rest it. Ice: Ice the sore area for 30 to 60 minutes, several times a day, to reduce inflammation and relieve pain. Apply a plastic bag of crushed ice (or a bag of frozen peas) over a towel. Ice the sore areafor 15 minutes after activity/exercise. Application of heat is not generally recommended, as heat ex pands the bone and connective tissue, perhaps exerting greater pressure on nerves and thereby increasing pain. If heat is used, follow it with ice. Medication: If your condition developed recently, anti-inflammatory/analgesic medication, combined with heel pads (see below) may be all that is necessary to relieve pain and to reduce inflammation. If no pain relief has occurred after 2- 3 weeks, however, your doctor may inject either cortisone or local anesthetic directly into the tender area. Exercises: Do simple exercises, such as calf stretches and towel stretches (see below) several times a day, especially when you first get up in the morning. These can help your ligament become more flexible and strengthen the muscles that support your arch. Shoes: Poorly fitting shoes can cause plantar fasciitis. The best type of shoe to wear is a good walking or running shoe with good shock absorption and excellent arch support. You should choose the one that fits the best. Maribel with your athletic shoes to find a pair that is comfortable and causes fewer symptoms. Put your shoes on as soon as you get out of bed; going barefoot or wearing slippers may make your pain worse. Good brands include (but are not limited to): New Balance, Asics, Saucony, SAS and Merrel s. Taping: Your doctor may tape your foot to maintain the arch. This takes some of the tension off theplantar fascia. Weight Loss: If your weight is putting extra stress on your feet, your doctor may encourage you to try a weight-loss program. Orthotics: An orthotic insole is a molded piece of rubber, plastic, or other material that you insert into your shoe. It corrects the alignment of your foot and cushions your foot from excessive pounding. These may be prescription or non-prescription. Prescription orthotics are custom-fitted and may fit better and control pain better, but are very expensive. Night Splints: A night splint holds the foot with the toes pointed up and the ankle at a 90-degree angle. This position applies a constant, gentle stretch to the plantar fascia. Corticosteroid Shots: Steroids may be injected into the tender area to reduce inflammation. REHAB Exercises to stretch the plantar fascia, the calf muscles, and the Achilles tendon. Tightness of the muscles of the calves may contribute to plantar fasciitis, so stretching the calf muscles is important to rehabilitation, as is stretching of the plantar fascia itself. Plantar fascial stretches Assisted Dorsiflexion/Plantar Fascia Stretch: Sit on the floor or ground, barefoot, with both legs outstretched. Use a towel or elastic band and wrap it around the ball (and not the toes) of the affected foot. Use the towel or elastic band to provide resistance to upward movement of the forefoot. Pull foot upward (toward your body) with the help of the elastic band or towel, and then return to the starting position. Ten repetitions are recommended. Perform the sequence at least three times a day. Alternate Plantar Fascia Stretch: Sit upright in a chair, barefoot. Place the ankle of the affectedfoot on your opposite knee. Using the same hand as the affected foot, reach across and grab the toes. Flex the ankle toward and pull the toes toward the babin. To test the stretch, place the thumb of your hand on the bottom of the foot. You should be able to feel the cord-like plantar fascia, running the length of the foot. Hold the stretch for a count of 10, then relax. Repeat 10 times. Do the sequence at least three times a day. Achilles/Calf Stretches Strengthening the muscles of the calves may contribute to successful rehabilitation of plantar fasciitis, as well as prevent reoccurrence. The exercises below will help strengthen the calf muscles. Calf and Achilles Tendon Stretch (Gastrocnemius Stretch): Face a wall, standing an arm's length away. Place one foot back. Place both hands on the wall. Bend the elbows and knee of your forward leg, keeping the heel of the backward foot on the floor and keeping your body straight (aligned), until your forehead nearly touches the wall, or until significant stretch is felt in the muscles of the calf of the backward leg. Hold this position for 10 to 15 seconds. Extend elbows (straighten your arms and stand upright again) and maintain this position for 10 seconds. Repeat this cycle 15 to 20 times. Switch legs and repeat the exercise. Powerstep Original Full length. Can purchase at [employer] and boots,shoes and more here in [place], [employer] in [place] or [place]. Also can find in [employer] in [facility]. Powersteps can also be purchased online, starting around $45.00 If you have a metatarsal or dancer pad for your feet apply the pad directly to the insole so you can interchange between your shoes. Find a shoe with a removable insole and take this out and replace with your powerstep insole. Always bring powersteps with you when shopping for shoes so that you can make sure that everything fits well together Diabetes Foot Care Instructions When you have diabetes, proper foot care is very important. Poor foot care may lead to amputation of a foot or leg. As a person with diabetes, you are more vulnerable to foot problems, because diabetes can damage your nerves and reduce blood flow to your feet. Here are some diabetes foot care tips to follow: Wash and Dry Your Feet Daily Use mild soaps Use warm water Pat your skin dry; do not rub. Thoroughly dry your feet. After washing, use lotion on your feet to prevent cracking. Do not put lotion between your toes. Examine Your Feet Each Day Check the tops and bottoms of your feet. Have someone else look at your feet if you cannot see them. Check for dry, cracked skin. Look for blisters, cuts, scratches, or other sores. Check for redness, increased warmth, or tenderness when touching any area of your feet. Check for ingrown toenails, corns, and calluses. If you get a blister or sore from your shoes, do not pop it. Apply a bandage and wear a differentpair of shoes. Take Care of Your Toenails Cut toenails after bathing, when they are soft. Cut toenails straight across and smooth with a nail file. Avoid cutting into the corners of toes. Do not cut cuticles. If you have neuropathy (or decreased sensation in your feet) a thaw shed heater tender should always cut your toenails. Be Careful When Exercising Walk and exercise in comfortable shoes. Do not exercise when you have open sores on your feet. Protect Your Feet With Shoes and Socks Never go barefoot. Always protect your feet by wearing shoes or hard-soled slippers or footwear. Avoid shoes with high heels and pointed toes. Avoid shoes that expose your toes or heels (such as open-toed shoes or sandals). These types of shoes increase your risk for injury and potential infections. Try on new footwear with the type of socks you usually wear. Do not wear new shoes for more than an hour at a time. Change your socks daily. Look and feel inside your shoes before putting them on to make sure there are no foreign objects orrough areas. Avoid tight socks. Wear natural-fiber socks (cotton, wool, or a cotton-wool blend). Wear special shoes if your health care provider recommends them. Wear shoes/boots that will protect your feet from various weather conditions (cold, moisture, etc.). Make sure your shoes fit properly. If you have neuropathy (nerve damage), you may not notice that your shoes are too tight. Perform the footwear test described below. Footwear Test Use this simple test to see if your shoes fit correctly: Stand on a piece of paper. (Make sure you are standing and not sitting, because your foot changes shape when you stand.) Trace the outline of your foot. Trace the outline of your shoe. Compare the tracings: Is the shoe too narrow? Is your foot crammed into the shoe? The shoe should be at least 1/2 inch longer than your longest toe and as wide as your foot. Proper Shoe Choices The following types of shoes are best for people with diabetes Closed toes and heels Leather uppers without a seam inside At least 1/2 inch extra space at the end of your longest toe Inside of shoe should be soft with no rough areas Outer sole should be made of stiff material Shoes should be at least as wide as your feet Tips for Foot Care in Diabetes Don't wait to treat a minor foot problem if you have diabetes. Follow your health care provider's guidelines and first aid guidelines. Report foot injuries and infections to your health care provider immediately. Check water temperature with your elbow, not your foot. Do not use a heating pad on your feet. Do not cross your legs. Do not self-treat your corns, calluses, or other foot problems. Go to your health care provider or thaw shed heater tender to treat these conditions. [facility] History of Present illness Narrative* Justice Bateman - 06/26/2024 11:49 AM EST Consultation requested by Dr. Lawrence for an opinion regarding diabetic foot exam. My final recommendations will be communicated back to the requesting physician by way of shared Medical record or letter to requesting physician via US mail. Initial Office Visit Subjective: This 69 year old female presents to clinic for diabetic foot check. Patient has the following complaints: left heel Patient presents to clinic for evaluation of left foot. Complains of pain to the left heel. She haspain when as been on her foot for an extended duration. Patient will take tylenol for the pain which does not really help. Patient admits to being diabetic for 30 years now. Patient -B/T/N in feet at this time. Patient -pain in legs when walking. No other pedal complaints at this time. No change in medications or medical history since last visit. PAIN EVALUATION 06/26/2024 1129 Pain Level: 6 Pain Location: Foot-Left Description: Sharp;Shooting;Radiating Duration Amount of Time: 2 Duration Units: Months Frequency: Continuous Intervention/Comfort measure: Relaxation;Reposition Hemoglobin A1C (%) Date Value 05/13/2024 10.2 10/30/2023 7.3 04/03/2023 7.2 01/08/2023 9.3 07/04/2021 8.8 06/14/2003 5.7 10/06/2001 5.5 PCP: Gabriela Linda MD PAST MEDICAL HISTORY Diagnosis Date Coronary artery disease Dr. 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, 8mm Restless legs syndrome (RLS) S/P CABG x 4 2001 Statin intolerance Type 2 diabetes mellitus without retinopathy (HCC) 03/06/2016 Unspecified asthma(493.90) mild intermittent, triggered by damp weather Uterine prolapse s/p hysterectomy Current Outpatient Medications Medication Sig evolocumab 140 mg/mL subcutaneous pen injector (REPATHA SURECLICK) Inject 140 mg subcutaneously every 2 weeks. albuterol HFA (PROVENTIL HFA, VENTOLIN HFA) 90 mcg/actuation inhaler Inhale 2 Puffs as instructed every 4 hours as needed for wheezing/shortness of breath. estradiol (ESTRACE) 0.01 % (0.1 mg/gram) vaginal cream Use 1 g vaginally once daily. albuterol HFA (PROVENTIL HFA, VENTOLIN HFA) 90 mcg/actuation inhaler Inhale 2 Puffs as instructed every 4 hours as needed for wheezing/shortness of breath. SITagliptin phosphate (JANUVIA) 50 mg tablet Take 1 tablet by mouth once daily. metFORMIN (GLUCOPHAGE) 1,000 mg tablet Take 1 tablet by mouth two times a day with meals. pregabalin (LYRICA) 150 mg capsule TAKE 1 CAPSULE BY MOUTH TWICE DAILY AT SUPPER AND BEDTIME citalopram (CELEXA) 40 mg tablet Take 1 tablet by mouth once daily. CPAP/BIPAP/OTHER Type .CPAPSettings into a note to see current settings/supplies/DME information. fenofibrate nanocrystallized (TRICOR) 145 mg tablet Take 1 tablet by mouth once daily. metoprolol succinate ER (TOPROL XL) 25 mg 24 hr tablet Take 0.5 tablets by mouth once daily. aspirin, enteric coated (ASPIRIN, ENTERIC COATED) 81 mg EC tablet Take 1 tablet by mouth once daily. promethazine (PHENERGAN) 25 mg tablet Take 1 tablet by mouth every 6 hours as needed for nausea/vomiting. clopidogrel (PLAVIX) 75 mg tablet Take 75 mg by mouth once daily. isosorbide mononitrate ER (IMDUR) 60 mg 24 hr tablet Take 90 mg by mouth once daily. pantoprazole DR (PROTONIX) 40 mg tablet Take 1 tablet by mouth once daily. Take on empty stomach, 1/2 hr before meal. blood sugar diagnostic (BLOOD GLUCOSE TEST) test strip Test blood sugar(s) 2 times daily. Dx: Type 2 DM - Controlled E11.9 Insulin: No Lancets lancets Test blood sugar(s) 2 times daily. Dx: Type 2 DM - Controlled E11.9 Insulin: No cholecalciferol (VITAMIN D-3) 50 mcg (2,000 unit) tablet Take 2,000 Units by mouth once daily. CPAP/BIPAP/OTHER Formal mask fitting to consider smaller FFM like dreamwear due to dry eyes and supplies for bipap 13/8cmH2O DME [facility] CPAP/BIPAP/OTHER Replacement auto bipap 13/8 with PS of 5cmH2O DME [facility] CPAP/BIPAP/OTHER Settings decrease to autobipap 13/8cmH2O DME [employer] BIPAP DME change for supplies. Pt has a [employer] Auto BiPAP IPAP max 18, EPAP min 6 CM H2O, PS 5 cmH2O. mask, filters, heated humidity & tubing, [employer] supplies. LADAN G47.33 red yeast rice 600 mg tab ascorbic acid, vitamin C, (VITAMIN C) 500 mg tablet Take 500 mg by mouth daily at bedtime. nitroglycerin sublingual (NITROQUICK) 0.4 mg SL tablet Dissolve 0.4 mg under the tongue. MAGNESIUM ORAL Take 300 mg by mouth twice daily. some days takes three tablets ranolazine ER (RANEXA) 500 mg 12 hr tablet Take 1,000 mg by mouth twice daily. No current facility-administered medications for this visit. ALLERGIES Allergen Reactions Asa [Salicylates] Vomiting Augmentin [Amoxicil* GI Upset Belladonna [Bellado* Intolerance GI upset Benazepril Cough Sep 2005 Butazolidin [Phenyl* Unknown Carbidopa Darvocet-N 100 [Pro* Intolerance HEADACHE Doxycycline Other: See Comments Patient ended up in ER with tongue and throat swelling- allergy not ruled out Guaifenesin-Sodium * Ibuprofen Rash Jardiance [Empaglif* Intolerance Vaginal itching Levaquin [Levofloxa* Other: See Comments Hallucinations anxiety numbness tingling Lopid [Gemfibrozil] Niacin Niaspan [Niacin (An* Penicillins Hives Provigil [Modafinil] Mental Status Change hallucinations Ramipril Unknown Rvwmxfr-Wbo-Rii Red* Myalgia Sulfa (Sulfonamide * Tramadol Other: See Comments stroke like symptoms PAST SURGICAL HISTORY Procedure Laterality Date COLONOSCOPY FLX DX W/COLLJ SPEC WHEN PFRMD 10/16/2003 Colonoscopy ESOPHAGOGASTRODUODENOSCOPY TRANSORAL DIAGNOSTIC 10/16/2003 EGD LAPS ABD PRTM&OMENTUM DX W/WO SPEC BR/WA SPX Laparoscopy PAST SURGICAL HISTORY OF 01/15/2015 4 new stents were placed PAST SURGICAL HISTORY OF 17 stents PAST SURGICAL HISTORY OF 2001 CABGx4 PAST SURGICAL HISTORY OF 04/2023 PCI of SVG to RPDA with 2 LENA implanted TONSILLECTOMY PRIMARY/SECONDARY <AGE 11 Tonsillectomy TOTAL ABDOMINAL HYSTERECT W/WO RMVL TUBE OVARY Hysterectomy, ZAKI FAMILY HISTORY Problem Relation Age of Onset other (colon polyps) Father Diabetes Father Heart disease Father Diabetes Sister other (rheumatoid arthritis) Sister Anxiety disorder Sister Heart Attack Sister No Known Problems Maternal Grandmother No Known Problems Maternal Grandfather No Known Problems Paternal Grandmother No Known Problems Paternal Grandfather Drug abuse Son No Known Problems Daughter Social History Tobacco Use Smoking status: Former Current packs/day: 0.00 Average packs/day: 0.5 packs/day for 27.0 years (13.5 ttl pk-yrs) Types: Cigarettes Start date: 1970 Quit date: 1997 Years since quittin.0 Smokeless tobacco: Never Vaping Use Vaping status: Never Used Substance Use Topics Alcohol use: Yes Comment: 2-3 drinks per month Drug use: No REVIEW OF SYSTEMS GENERAL: Negative for Malaise, significant weight loss, fever RESPIRATORY: Negative for cough, wheezing and shortness of breath CARDIOVASCULAR: Negative for chest pain, leg swelling and palpitations GI: Negative for abdominal discomfort, blood in stools or black stools and change in bowel habits : Negative for dysuria, frequency and incontinence MUSCULOSKELETAL: Negative for joint pain or swelling, back pain, and muscle pain. SKIN: Negative for lesions, rash, and itching. HEMATOLOGY/LYMPHOLOGY Negative for prolonged bleeding, bruising easily, and swollen nodes. ENDOCRINE: Negative for cold or heat intolerance, polyuria, polydipsia and goiter. NEURO: negative The remainder of the review of systems is noncontributory. Objective: Patient presents to clinic ambulating in [facility] Constitutional: Pt is a well developed 69 year old female who is alert, oriented, cooperative and in no apparent distress. Eyes: Following during examination. No redness or drainage. Respiratory: RR normal and nonlabored. Even breathing. No evidence of distress. Psychology: Patient is engaged during conversation. Normal affect and mood. Does not appear depressed or anxious. Vasc: DP and PT pulses are palpable bilateral. CFT is less than 5 seconds bilateral. Skin temperature is warm to warm proximal to distal bilateral. There is mild edema or varicosities noted. Hair growth present. Neuro: Protective sensation is intact to the foot and toes when tested with the 5.07 SWM bilateral.Vibratory sensation is decreased at the hallux bilateral. + Significant neurological defecits. Derm: Inspection and palpation performed. Nails 1-5 b/l are normal in length and thickness. Skin isdry b/l. NO ulcerations, scars, verruca or other lesions noted. Ortho: Ankle joint DF is full with the knee extended and full with knee flexed. No pain or crepitusnoted. STJ, MTJ ROM are full and free of pain or crepitus. Muscle strength is 5/5 for dorsiflexors,plantarflexors, inverters, everters. Digital deformities include none. Assessment: (M72.2) Plantar fasciitis (primary encounter diagnosis) (M79.672) Pain of left heel (L85.3) Xerosis cutis (E11.42) Diabetic polyneuropathy associated with type 2 diabetes mellitus (HCC) Plan: 1. Patient was seen and evaluated. 2. Patient was instructed on the continued importance of diabetic foot care along with proper diet and keeping their blood sugar under control to prevent complications. Stressed the importance of avoiding barefoot walking, wearing good shoes and inspection of feet Instructions given both oral and written. 3. Discussed dryness of b/l feet. Will order carmol 40 as she has component of dryness and fissuring. Fissuring reduced with carolee Bateman DPM * Barry Zamora RN - 06/26/2024 11:27 AM EST AMB ROOMING INTAKE FLOWSHEET DATA Pain Pain Level: 6 Pain Location: Foot-Left Description: Sharp, Shooting, Radiating Duration Amount of Time: 2 Duration Units: Months Frequency: Continuous Intervention/Comfort measure: Relaxation, Reposition Patient presents with: Left Foot - New, Pain Patient presents for left heel pain that has been ongoing for 2 months. States it intermittently radiates up leg, and recently started radiating to arch and lateral foot. Pain has improved when she put her old custom orthotics in shoe. XR 05/27/24 documented in this [facility] Telephone encounter Note* Telephone Encounter - Gabriela Linda MD - 06/19/2024 12:02 PM EST Rx sent as requested. [facility]01-03[facility] Miscellaneous Notes* Telephone Encounter - Gabriela Linda MD - 06/19/2024 12:02 PM EST Rx sent as requested. * Telephone Encounter - Angelica Cunningham MA - 06/18/2024 5:33 PM EST Images from the original note were not included. PA approved for repatha till 12/16/24 and patient was notified. Please send rx to local * Telephone Encounter - Angelica Cunningham MA - 06/18/2024 1:26 PM EST Spoke to patient who requested repatha go to local pharmacy since insurance change. Verified new insurance and patient is aware she still needs tp update in Customer service number: [phone] RxBIN [id number] RXPCN [id number] [facility] was submitted through covermymeds Nicholson: [id number] Angelica Cunningham MA documented in this encounterMarietta [facility]01-02-2025 Telephone encounter Note * Telephone Encounter - Angelica Cunningham MA - 06/18/2024 5:33 PM EST Images from the original note were not included. PA approved for repatha till 12/16/24 and patient was notified. Please send rx to local [facility]01-02-[facility] Telephone encounter Note* Telephone Encounter - Angelica Cunningham MA - 06/18/2024 1:26 PM EST Spoke to patient who requested repatha go to local pharmacy since insurance change. Verified new insurance and patient is aware she still needs tp update in Customer service number: [phone] RxBIN [id number] RXPCN [id number] RXGRP [facility] PA was submitted through covermymeds [place]olson: [id number] Angelica Cunningham MA [facility]12-18-2024 Instructions* Patient Instructions* Mervin Munoz APRN.CNM - 06/03/2024 2:41 PM EST Non-Hormonal Vaginal Lubricants & Vaginal Moisturizers Symptoms of vaginal dryness can be managed by the regular use of vaginal moisturizing agents with supplemental use of vaginal lubricants for sexual intercourse. . Use of vaginal moisturizers and lubricants alone is effective treatment for vaginal dryness or dyspareunia (pain with intercourse) in some patients. Vaginal lubrications- Vaginal lubricants are designed to reduce friction and discomfort from dryness during sexual intercourse. The lubricant is applied inside the vagina and/or on the partner's penis or fingers just before sex. Coconut, Richards, Avocado or Peanut oil- natural oils are not recommended for use with latex condoms or diaphragms as they can damage the latex Astroglide- has both water and silicone based KY Jelly- water based Just like me - Pure Romance Almost Naked Good Clean Love - Bio Nude ultra-sensitive Pjur- silicone ID Millennium- silicone Vaginal Moisturizers- Vaginal moisturizers are intended for use routinely, typically two or three days per week, not just during sexual activity. These products are typically bioadhesives. Many moisturizer products are available in pharmacies and online. Restore- [employer] Replens Jose Armando Feminease Moist Again K-Y Liquid beads Products to assist with maintaining vaginal ph IsoFresh www.[employer] BiopHresh Rephresh documented in this encounterMarietta [facility]12-18-2024 [facility]12-[facility] History of Present illness Narrative* Mervin MunozCOOPER.LAURA - 06/03/2024 1:49 PM EST Elsa Pugh is a 69 year old female who presents for problem visit of vaginal dryness, itching, and irritation for the past couple of months. HPI: Partial hysterectomy at age 24 because of a uterine prolapse. Started feeling irritated on theinside of vagina. Reports changed soaps to see if resolved and got worse. C/O urinary incontinence and wears a pad. Reports sometimes sexually active with boyfriend and uses lubrication. Denies any va ginal discharge, odor or rash. REVIEW OF SYSTEMS Abdomen: No bloating, early satiety, indigestion, or increased flatulence. No abdominal pain, nausea, vomiting, diarrhea, or constipation. Bladder: Mixed incontinence- wears pad Breast: No breast lumps, nipple d/c, overlying skin changes, redness or skin retraction. Expanded ROS: see HPI Allergies and current medication updated:Yes SENSITIVE EXAM: The sensitive examination was discussed with the Patient or Patient's Authorized Director Of Corporate Strategy. As applicable, any other physician, advance practice provider, medical student, or other health professional student that will be observing or involved in the sensitive examination for educational or training purposes was discussed with the Patient or Authorized Director Of Corporate Strategy. The Patient or Authorized Director Of Corporate Strategy has agreed to proceed with the sensitive examination. (Sensitive examination includes inspection and/or palpation of the breasts, pelvis, prostate and anorectal regions). EXAM: BP 130/78 Wt 199 lb (90.3kg) GENERAL: pleasant, female in no apparent distress HEENT: Normocephalic and atraumatic NECK: Supple DERMATOLOGY: Normal and without lesions BREAST: deferred CHEST: Normal inspiratory effort ABDOMEN: soft, non-tender, and no masses PELVIC: no vulvar lesions, atrophic changes noted. Labia minora starting to BIMANUAL: uterus surgically absent NEURO: alert and oriented x3,exam grossly non-focal EXTREMITIES: normal ASSESSMENT/PLAN: 1. Vaginal atrophy - ICD9: 627.3, ICD10: N95.2 (primary diagnosis) 2. Vaginal itching - ICD9: 698.1, ICD10: N89.8 3. Post menopausal atrophic vaginitis - HARPREET/TRICHOMONAS NAAT - BACTERIAL VAGINOSIS NAAT - Discussed exam findings with patient - Estrace 1gm vaginally daily - RX sent - Vulvar hygiene reviewed and what products patient should be using - Handout on lubricants/moisturizers provided - RTO as needed or if symptoms worsen Mervin Munoz APRN.CNM documented in this encounterMarietta [facility]12-18-2024 Telephone encounter Note * Telephone Encounter - Cheyanne Najera LPN - 06/03/2024 1:02 PM EST Phoned patient went over results, notes from Anay Lawrence STUD SETTER with understanding. [facility]12-18-2024 Miscellaneous Notes* Telephone Encounter - Cheyanne Najera LPN - 06/03/2024 1:02 PM EST Phoned patient went over results, notes from Anay Lawrence STUD SETTER with understanding. * Telephone Encounter - Cheyanne Najera LPN - 06/03/2024 1:00 PM EST ----- Message from Anay Lawrence APRN.NUTRITION CLUB AMBASSADOR sent at 06/03/2024 11:47 AM EST ----- Xray shows moderate effusion ( extra fluid) along with arthritic changes. Continue plan as discussed in office.. Anay Lawrence APRN.NUTRITION CLUB AMBASSADOR documented in this encounterMari[facility]12-[facility]24 Telephone encounter Note * Telephone Encounter - Cheyanne Najera LPN - 06/03/2024 1:00 PM EST ----- Message from Anay Lawrence APRN.NUTRITION CLUB AMBASSADOR sent at 06/03/2024 11:47 AM EST ----- Xray shows moderate effusion ( extra fluid) along with arthritic changes. Continue plan as discussed in office.. Anay Lawrence APRN.NUTRITION CLUB AMBASSADOR [facility]12-18-2024 History of Present illness Narrative* Valerie Rizvi RT(R) - 06/03/2024 11:10 AM EST Radiology Service Progress Note PATIENT NAME: Elsa Pugh DATE OF SERVICE: June 03, 2024 TIME: 11:03 AM PATIENT IDENTITY VERIFICATION COMPLETED USING TWO (2) IDENTIFIERS: Name and Date of confirmedby patient verbally. FALL SCREENING: Has the patient had 2 falls in the last year or 1 fall with injury or currently using an Ambulatory Assistive Device (Walker, Cane, Wheelchair, Crutches, etc.)? Yes, Patient High Riskfor Falls What interventions were put in place to prevent falls during this visit? Offered Assistance with Transfers/Clothing and Instructed Patient to Remain Seated (Not on Exam Table) Until Exam PATIENT GENDER DATA: Female. status: : No status: NO. PATIENT RELEVANT IMPLANT DATA REVIEWED: Not Applicable PATIENT PRESENTS WITH AN IMPLANTABLE OR ATTACHED BOARDING MACHINE OPERATOR: No RADIOLOGY DEPARTMENT: General X-ray: Exam(s) Completed: Lower Extremity X- Ray(s): Knee, AP / Lat / Tunne / Merchant Right and Wt. Bearing PERIPHERAL IV DATA: Not applicable SIGNED BY: RT Michael(R) June 03, 2024 11:03 AM documented in this encounterMarietta [facility] History of Present illness Narrative* Anay Lawrence APRN.CNP - 06/03/2024 10:37 AM EST 06/03/2024 Patient presents with: Right Knee Pain: Calf swollen and knee is painful, swelling is increased the last few weeks SUBJECTIVE: This is a 69 year old that is here today for Above Complaints.. Pain behind knee, behind knee and below knee for a few weeks Reports hx of torn meniscus back in 2020. Has swelling that progress throughout day. Most swelling around knee. Using tylenol, cold compresses and stretches. Denies recent fall/injury, erythema, excessive warmth, leg weakness or locking of joint. PAST MEDICAL HISTORY Diagnosis Date Coronary artery disease Dr. Osorio DDD (degenerative disc disease), lumbar Essential hypertension Generalized anxiety disorder 01/15/2023 Hemorrhage of rectum and anus History of colonic polyps Hyperlipidemia Hypoglycemia, unspecified Narcolepsy Sleep Medicine in [place] NSTEMI (non-ST elevated myocardial infarction) ([facility]) Obesity Obstructive sleep apnea on CPAP PMH - PAST MEDICAL HISTORY OF edema Renal angiomyolipoma 08/19/2023 left, 8mm Restless legs syndrome (RLS) S/P CABG x 4 2001 Statin intolerance Type 2 diabetes mellitus without retinopathy ([facility]) 03/06/2016 Unspecified asthma(493.90) mild intermittent, triggered by damp weather Uterine prolapse s/p hysterectomy ALLERGIES Asa [Salicylates], Augmentin [Amoxicillin-Pot Clavulanate], Belladonna [Belladonna Alkaloids], Benazepril, Butazolidin [Phenylbutazone], Carbidopa, Darvocet-N 100 [Propoxyphene N-Acetaminophen], Doxycycline, Guaifenesin-Sodium Citrate, Ibuprofen, Jardiance [Empagliflozin], Levaquin [Levofloxacin], Lopid [Gemfibrozil], Niacin, Niaspan [Niacin (Antihyperlipidemic)], Penicillins, Provigil [Modafinil], Ramipril, Duclxbs-Pcb-Jor Reductase Inhibitors, Sulfa (Sulfonamide Antibiotics), and Tramadol MEDICATIONS Current Outpatient Medications Medication Sig albuterol HFA (PROVENTIL HFA, VENTOLIN HFA) 90 mcg/actuation inhaler Inhale 2 Puffs as instructed every 4 hours as needed for wheezing/shortness of breath. SITagliptin phosphate (JANUVIA) 50 mg tablet Take 1 tablet by mouth once daily. metFORMIN (GLUCOPHAGE) 1,000 mg tablet Take 1 tablet by mouth two times a day with meals. evolocumab 140 mg/mL subcutaneous pen injector (REPATHA SURECLICK) Inject 140 mg subcutaneously every 2 weeks. pregabalin (LYRICA) 150 mg capsule TAKE 1 CAPSULE BY MOUTH TWICE DAILY AT SUPPER AND BEDTIME citalopram (CELEXA) 40 mg tablet Take 1 tablet by mouth once daily. CPAP/BIPAP/OTHER Type .CPAPSettings into a note to see current settings/supplies/DME information. fenofibrate nanocrystallized (TRICOR) 145 mg tablet Take 1 tablet by mouth once daily. metoprolol succinate ER (TOPROL XL) 25 mg 24 hr tablet Take 0.5 tablets by mouth once daily. aspirin, enteric coated (ASPIRIN, ENTERIC COATED) 81 mg EC tablet Take 1 tablet by mouth once daily. promethazine (PHENERGAN) 25 mg tablet Take 1 tablet by mouth every 6 hours as needed for nausea/vomiting. clopidogrel (PLAVIX) 75 mg tablet Take 75 mg by mouth once daily. isosorbide mononitrate ER (IMDUR) 60 mg 24 hr tablet Take 90 mg by mouth once daily. pantoprazole DR (PROTONIX) 40 mg tablet Take 1 tablet by mouth once daily. Take on empty stomach, 1/2 hr before meal. blood sugar diagnostic (BLOOD GLUCOSE TEST) test strip Test blood sugar(s) 2 times daily. Dx: Type 2 DM - Controlled E11.9 Insulin: No Lancets lancets Test blood sugar(s) 2 times daily. Dx: Type 2 DM - Controlled E11.9 Insulin: No cholecalciferol (VITAMIN D-3) 50 mcg (2,000 unit) tablet Take 2,000 Units by mouth once daily. CPAP/BIPAP/OTHER Formal mask fitting to consider smaller FFM like dreamwear due to dry eyes and supplies for bipap 13/8cmH2O DME [employer] CPAP/BIPAP/OTHER Replacement auto bipap 13/8 with PS of 5cmH2O DME [employer] CPAP/BIPAP/OTHER Settings decrease to autobipap 13/8cmH2O DME [employer] BIPAP DME change for supplies. Pt has a Resmed Auto BiPAP IPAP max 18, EPAP min 6 CM H2O, PS 5 cmH2O. mask, filters, heated humidity & tubing, [employer] supplies. LADAN G47.33 red yeast rice 600 mg tab ascorbic acid, vitamin C, (VITAMIN C) 500 mg tablet Take 500 mg by mouth daily at bedtime. nitroglycerin sublingual (NITROQUICK) 0.4 mg SL tablet Dissolve 0.4 mg under the tongue. MAGNESIUM ORAL Take 300 mg by mouth twice daily. some days takes three tablets ranolazine ER (RANEXA) 500 mg 12 hr tablet Take 1,000 mg by mouth twice daily. No current facility-administered medications for this visit. Medications and allergies reviewed by this provider. SOCIAL HISTORY Social History Tobacco Use Smoking status: Former Current packs/day: 0.00 Average packs/day: 0.5 packs/day for 27.0 years (13.5 ttl pk-yrs) Types: Cigarettes Start date: 1970 Quit date: 1997 Years since quittin.9 Smokeless tobacco: Never Vaping Use Vaping status: Never Used Substance Use Topics Alcohol use: Yes Comment: 2-3 drinks per month Drug use: No REVIEW OF SYSTEMS All other reviewed and negative other than HPI. OBJECTIVE: BP 134/72 Pulse (!) 50 Resp 18 Wt 90.4 kg (199 lb 4.7 oz) SpO2 97% BMI 33.16 kg/m . Vitalsigns reviewed by this provider. APPEARANCE Well appearing, alert, in no acute distress, well-hydrated, well nourished. RIGHT KNEE: Effusion suprapatellar. No erythema or excessive warmth. Positive Josey medially. Negative anterior/posterior drawer test. Discomfort with full flexion. No crepitus or laxity noted. TTP along medial aspect Depression Screening Never done Hepatitis C Screening Never done BP Controlled (<130/80) Never done Shingrix Vaccine(1 of 2) Never done DTaP,Tdap,Td Vaccine(2 - Tdap) due on 03/17/2013 Advance Directive Discussion Never done Covid-19 Vaccine() due on 05/06/2025 HbA1C due on 08/13/2024 Colorectal Cancer Screening due on 11/11/2024 Dilated Retinal Exam due on 11/13/2024 Mammogram Screening due on 12/17/2024 Diabetic Foot Exam due on 05/06/2025 Urine Albumin:Creatinine Ratio due on 05/13/2025 LDL Cholesterol due on 05/13/2025 Serum Creatinine due on 05/13/2025 Annual PCP Team Chronic Disease Visit due on 06/03/2025 Bone Density Screening Completed Influenza Vaccine Completed RSV Vaccine Completed Pneumococcal Vaccine: 50+ Completed ASSESSMENT/PLAN: 1. Pain and swelling of right knee - ICD9: 719.46, 719.06, ICD10: M25.561, M25.461 - likely related to osteoarthritis, consider meniscus tear - no red flag symptoms or exam findings - red flag symptoms discussed, verbalizes understanding - offered prednisone- declines - offered MRI- declines - continue OTC symptoms management - XR KNEE GENERAL 4V AP BOTH/PA BOTH/LAT/MERC RIGHT - follow-up if symptoms fail to improve Anay Lawrence APRN.JUANITA Prescription instructions reviewed with patient as applicable. Patient advised if symptoms do not improve or if symptoms worsen sooner, to contact their primary care physician. Potential red flag symptoms discussed with the patient. Reviewed appropriate action plan to take if red flag symptoms occur. Patient agreeable to treatment plan. Medical Decision Making: Problems: Moderate: New problem with uncertain prognosis Data: Unique test(s) ordered: 1 Risk: Moderate: Moderate risk from testing/treatment Medical Decision Making Level: 4 - Moderate documented in this encounterMari[facility]12-13-2024 Telephone encounter Note * Telephone Encounter - Cheyanne Najera LPN - 05/29/2024 12:46 PM EST Phoned patient left detailed message with results, notes from Anay Lawrence STUD SETTER on voicemail. [facility]12-13-2024 Miscellaneous Notes* Telephone Encounter - Cheyanne Najera LPN - 05/29/2024 12:46 PM EST Phoned patient left detailed message with results, notes from Anay Lawrence STUD SETTER on voicemail. * Telephone Encounter - Cheyanne Najera LPN - 05/29/2024 12:44 PM EST ----- Message from Anay Lawrence APRN.CNP sent at 05/29/2024 12:34 PM EST ----- Xray shows heel spur otherwise no acute findings. Anay Lawrence APRN.CNP documented in this encounterMari[facility]12-13-2024 Telephone encounter Note * Telephone Encounter - Cheyanne Najera LPN - 05/29/2024 12:44 PM EST ----- Message from Anay Lawrence APRN.CNP sent at 05/29/2024 12:34 PM EST ----- Xray shows heel spur otherwise no acute findings. Anay Lawrence APRN.CNP [facility]12-11-[facility] History of Present illness Narrative* Anay Lawrence APRN.NUTR[employer] CLUB AMBASSADOR - 05/27/2024 1:14 PM EST 05/27/2024 Patient presents with: Heel Pain: Left heel pain x1 month that is radiating into patients calf SUBJECTIVE: This is a 69 year old that is here today for Above Complaints. ONSET: one month LOCATION: left heel DURATION: constant CHARACTERISTICS: sharp AGGRAVATING FEATURES: worse when on it for a while ALLEVIATING FEATURES: tylenol for pain, massage, soaking and ice RADIATION: up the leg at times Had injection about 10 years ago for plantar fascitis Denies past/present injury/surgery, redness, warmth or swelling PAST MEDICAL HISTORY Diagnosis Date Coronary artery disease Dr. Devon BROWN (degenerative disc disease), lumbar Essential hypertension Generalized anxiety disorder 01/15/2023 Hemorrhage of rectum and anus History of colonic polyps Hyperlipidemia Hypoglycemia, unspecified Narcolepsy Sleep Medicine in [place] NSTEMI (non-ST elevated myocardial infarction) ([facility]) Obesity Obstructive sleep apnea on CPAP PMH - PAST MEDICAL HISTORY OF edema Renal angiomyolipoma 08/19/2023 left, 8mm Restless legs syndrome (RLS) S/P CABG x 4 2001 Statin intolerance Type 2 diabetes mellitus without retinopathy ([facility]) 03/06/2016 Unspecified asthma(493.90) mild intermittent, triggered by damp weather Uterine prolapse s/p hysterectomy ALLERGIES Asa [Salicylates], Augmentin [Amoxicillin-Pot Clavulanate], Belladonna [Belladonna Alkaloids], Benazepril, Butazolidin [Phenylbutazone], Carbidopa, Darvocet-N 100 [Propoxyphene N-Acetaminophen], Doxycycline, Guaifenesin-Sodium Citrate, Ibuprofen, Jardiance [Empagliflozin], Levaquin [Levofloxacin], Lopid [Gemfibrozil], Niacin, Niaspan [Niacin (Antihyperlipidemic)], Penicillins, Provigil [Modafinil], Ramipril, Ecplnrz-Hqz-Nnc Reductase Inhibitors, Sulfa (Sulfonamide Antibiotics), and Tramadol MEDICATIONS Current Outpatient Medications Medication Sig albuterol HFA (PROVENTIL HFA, VENTOLIN HFA) 90 mcg/actuation inhaler Inhale 2 Puffs as instructed every 4 hours as needed for wheezing/shortness of breath. SITagliptin phosphate (JANUVIA) 50 mg tablet Take 1 tablet by mouth once daily. metFORMIN (GLUCOPHAGE) 1,000 mg tablet Take 1 tablet by mouth two times a day with meals. evolocumab 140 mg/mL subcutaneous pen injector (REPATHA SURECLICK) Inject 140 mg subcutaneously every 2 weeks. pregabalin (LYRICA) 150 mg capsule TAKE 1 CAPSULE BY MOUTH TWICE DAILY AT SUPPER AND BEDTIME citalopram (CELEXA) 40 mg tablet Take 1 tablet by mouth once daily. CPAP/BIPAP/OTHER Type .CPAPSettings into a note to see current settings/supplies/DME information. fenofibrate nanocrystallized (TRICOR) 145 mg tablet Take 1 tablet by mouth once daily. metoprolol succinate ER (TOPROL XL) 25 mg 24 hr tablet Take 0.5 tablets by mouth once daily. aspirin, enteric coated (ASPIRIN, ENTERIC COATED) 81 mg EC tablet Take 1 tablet by mouth once daily. promethazine (PHENERGAN) 25 mg tablet Take 1 tablet by mouth every 6 hours as needed for nausea/vomiting. clopidogrel (PLAVIX) 75 mg tablet Take 75 mg by mouth once daily. isosorbide mononitrate ER (IMDUR) 60 mg 24 hr tablet Take 90 mg by mouth once daily. pantoprazole DR (PROTONIX) 40 mg tablet Take 1 tablet by mouth once daily. Take on empty stomach, 1/2 hr before meal. blood sugar diagnostic (BLOOD GLUCOSE TEST) test strip Test blood sugar(s) 2 times daily. Dx: Type 2 DM - Controlled E11.9 Insulin: No Lancets lancets Test blood sugar(s) 2 times daily. Dx: Type 2 DM - Controlled E11.9 Insulin: No cholecalciferol (VITAMIN D-3) 50 mcg (2,000 unit) tablet Take 2,000 Units by mouth once daily. CPAP/BIPAP/OTHER Formal mask fitting to consider smaller FFM like dreamwear due to dry eyes and supplies for bipap 13/8cmH2O DME [facility] CPAP/BIPAP/OTHER Replacement auto bipap 13/8 with PS of 5cmH2O DME [employer] CPAP/BIPAP/OTHER Settings decrease to autobipap 13/8cmH2O DME [employer] BIPAP DME change for supplies. Pt has a [employer] Auto BiPAP IPAP max 18, EPAP min 6 CM H2O, PS 5 cmH2O. mask, filters, heated humidity & tubing, [employer] supplies. LADAN G47.33 red yeast rice 600 mg tab ascorbic acid, vitamin C, (VITAMIN C) 500 mg tablet Take 500 mg by mouth daily at bedtime. nitroglycerin sublingual (NITROQUICK) 0.4 mg SL tablet Dissolve 0.4 mg under the tongue. MAGNESIUM ORAL Take 300 mg by mouth twice daily. some days takes three tablets ranolazine ER (RANEXA) 500 mg 12 hr tablet Take 1,000 mg by mouth twice daily. No current facility-administered medications for this visit. Medications and allergies reviewed by this provider. SOCIAL HISTORY Social History Tobacco Use Smoking status: Former Current packs/day: 0.00 Average packs/day: 0.5 packs/day for 27.0 years (13.5 ttl pk-yrs) Types: Cigarettes Start date: 1970 Quit date: 1997 Years since quittin.9 Smokeless tobacco: Never Vaping Use Vaping status: Never Used Substance Use Topics Alcohol use: Yes Comment: 2-3 drinks per month Drug use: No REVIEW OF SYSTEMS All other reviewed and negative other than HPI. OBJECTIVE: BP 118/64 Pulse 60 Resp 18 Wt 91.2 kg (201 lb 1 oz) SpO2 95% BMI 33.46 kg/m . Vital signsreviewed by this provider. APPEARANCE Well appearing, alert, in no acute distress, well-hydrated, well nourished. LEFT FOOT: No obvious deformity, swelling, or erythema. 2+ pedal pulse. FROM without pain or difficulty TTP over heel Depression Screening Never done Hepatitis C Screening Never done BP Controlled (<130/80) Never done Shingrix Vaccine(1 of 2) Never done DTaP,Tdap,Td Vaccine(2 - Tdap) due on 03/17/2013 Advance Directive Discussion Never done Covid-19 Vaccine() due on 05/06/2025 HbA1C due on 08/13/2024 Colorectal Cancer Screening due on 11/11/2024 Dilated Retinal Exam due on 11/13/2024 Mammogram Screening due on 12/17/2024 Diabetic Foot Exam due on 05/06/2025 Annual PCP Team Chronic Disease Visit due on 05/06/2025 Urine Albumin:Creatinine Ratio due on 05/13/2025 LDL Cholesterol due on 05/13/2025 Serum Creatinine due on 05/13/2025 Bone Density Screening Completed Influenza Vaccine Completed RSV Vaccine Completed Pneumococcal Vaccine: 65+ Completed ASSESSMENT/PLAN: 1. Pain of left heel - ICD9: 729.5, ICD10: M79.672 - continue pain relief measures, discussed stretches- patient reports she has copy of stretches to do - no red flag symptoms or exam findings - red flag symptoms discussed, verbalizes understanding - XR FOOT GENERAL 3V AP/LAT/OBL LEFT - CONSULT TO PODIATRY - follow-up with podiatry to ER with red flag symptoms Anay Podlogar, GUIDE DOG TRAINER.NUTRITION CLUB AMBASSADOR Prescription instructions reviewed with patient as applicable. Patient advised if symptoms do not improve or if symptoms worsen sooner, to contact their primary care physician. Potential red flag symptoms discussed with the patient. Reviewed appropriate action plan to take if red flag symptoms occur. Patient agreeable to treatment plan. Medical Decision Making: Problems: Moderate: New problem with uncertain prognosis Data: Unique test(s) ordered: 1 Risk: Moderate: Moderate risk from testing/treatment Medical Decision Making Level: 4 - Moderate documented in this encounterM[facility]12-[facility] Telephone encounter Note * Telephone Encounter - Barry Eduardo RN - 05/25/2024 7:23 PM EST Pt called and is notified of providers results and instructions. Pt voices understanding. Barry Eduardo RN [facility]12-09-2024 Miscellaneous Notes* Telephone Encounter - Barry Eduardo RN - 05/25/2024 7:23 PM EST Pt called and is notified of providers results and instructions. Pt voices understanding. Barry Eduardo RN * Telephone Encounter - Anay Lawrence APRN.CNP - 05/25/2024 4:06 PM EST I sent prescription for her. I see she is on schedule for Saturday so I will assess her lungs then. If she has increasing SOB or difficulty breathing recommend ER evaluation. Anay Lawrence APRN.CNP * Telephone Encounter - Anay Lawrence APRN.CNP - 05/25/2024 7:39 AM EST I see an albuterol inhaler was ordered about three years ago by an [facility] Care provider. Is she having some problems with wheezing or SOB? Anay Lawrence APRN.CNP documented in this encounterMarietta [facility]12-09-2024 Telephone encounter Note * Telephone Encounter - Anay Lawrence APRN.CNP - 05/25/2024 4:06 PM EST I sent prescription for her. I see she is on schedule for Saturday so I will assess her lungs then. If she has increasing SOB or difficulty breathing recommend ER evaluation. Anay Lawrence APRN.CNP [facility]12-09-2024 Telephone encounter Note* Telephone Encounter - Anay Lawrence APRN.CNP - 05/25/2024 7:39 AM EST I see an albuterol inhaler was ordered about three years ago by an [facility] Care provider. Is she having some problems with wheezing or SOB? Anay Lawrence APRN.CNP [facility]12-05-2024 Telephone encounter Note* Telephone Encounter - Devora Moore HUC - 05/21/2024 2:41 PM EST Telephoned the patient to schedule a new Primary Care pharmacy appt. Left a message. [facility]12-05-2024 Miscellaneous Notes* Telephone Encounter - Devora Moore HUC - 05/21/2024 2:41 PM EST Telephoned the patient to schedule a new Primary Care pharmacy appt. Left a message. documented in this encounterMarietta [facility]12-05-2024 Telephone encounter Note * Telephone Encounter - Amanda Ma LPN - 05/21/2024 1:22 PM EST Fax rec'd from [employer] noting that the cece garsia already has an exception granted. Pt notified via my chart. [facility]12-05-2024 Miscellaneous Notes* Telephone Encounter - Amanda Ma LPN - 05/21/2024 1:22 PM EST Fax rec'd from [facility] noting that the cece garsia already has an exception granted. Pt notified via my chart. * Telephone Encounter - Amanda Ma LPN - 05/20/2024 9:14 AM EST Completed and faxed back. * Telephone Encounter - Amanda Ma LPN - 05/20/2024 8:49 AM EST Fax rec;d for more questions to complete. * Telephone Encounter - Angelica Cunningham MA - 05/19/2024 3:10 PM EST Electronic PA submitted Angelica Cunningham MA * Telephone Encounter - Yaz Marquez RN - 05/19/2024 3:00 PM EST Prior Authorization Documentation Prior authorization requested for the following medication: Medication: Repatha 140 mg/ml SQ every 2 weeks. Provider: Podlogar Insurance Company Name: [facility] Medicare HMO Insurance Company Phone number: [phone] Patient ID number: [id number] Pharmacy Name: [facility] Telephone number: [phone] documented in this encounterMarietta [facility] Clinic12-04-2024 Telephone encounter Note * Telephone Encounter - Amanda Ma LPN - 05/20/2024 9:14 AM EST Completed and faxed back. [facility]12-04-2024 Telephone encounter Note* Telephone Encounter - Amanda Ma LPN - 05/20/2024 8:49 AM EST Fax rec;d for more questions to complete. [facility]12-03-2024 Telephone encounter Note* Telephone Encounter - Anay Lawrence APRN.CNP - 05/19/2024 3:11 PM EST Prescription for Januvia sent. Referral for pharmacy placed. Anay Lawrence APRN.CNP [facility]12-03-2024 Miscellaneous Notes* Telephone Encounter - Anay Lawrence APRN.CNP - 05/19/2024 3:11 PM EST Prescription for Januvia sent. Referral for pharmacy placed. Anay Lawrence APRN.JUANITA * Telephone Encounter - Yaz Marquez RN - 05/19/2024 2:58 PM EST Pt returned call and given provider's message below with verbalized understanding. Patient agreeable to try Januvia. Please send Rx to [facility]. Patient agreeable to meet with clinical pharmacist. Please place consult. Patient agreeable to check BS twice daily for 2 weeks and report results to provider. * Telephone Encounter - Barry Eduardo RN - 05/18/2024 4:43 PM EST Called and left a detailed voicemail notifying patient of providers message. Clinic phone number was left for the patient to call back and answer the providers questions. Barry Babulski, RN * Telephone Encounter - Anay Lawrence APRN.CNP - 05/18/2024 3:48 PM EST A1c has increased to 10.2% Recommend we try another diabetic mediation called [facility]. Would have her check blood sugars twice a day and update me in two weeks with readings. We could also have her see clinical pharmacist if she agrees I can place consult They can work on adjusting medication as well. Total and bad cholesterol have increased. Did she start the Repatha injection? The rest of her blood work and urine is good. Anay Lawrence APRN.JUANITA documented in this encounterMarietta [facility] Clinic12-03-2024 Telephone encounter Note * Telephone Encounter - Angelica Cunningham MA - 05/19/2024 3:10 PM EST Electronic PA submitted Angelica Cunningham MA [facility]12-03-2024 Telephone encounter Note* Telephone Encounter - Yaz Marquez RN - 05/19/2024 3:00 PM EST Prior Authorization Documentation Prior authorization requested for the following medication: Medication: Repatha 140 mg/ml SQ every 2 weeks. Provider: Melinda Insurance Company Name: [facility] Medicare HMO Insurance Company Phone number: [phone] Patient ID number: [id number] Pharmacy Name: [facility] Telephone number: [phone] [facility]12-03-2024 Telephone encounter Note* Telephone Encounter - Yaz Marquez RN - 05/19/2024 2:58 PM EST Pt returned call and given provider's message below with verbalized understanding. Patient agreeable to try Januvia. Please send Rx to [facility]. Patient agreeable to meet with clinical pharmacist. Please place consult. Patient agreeable to check BS twice daily for 2 weeks and report results to provider. [facility]12-02-2024 Telephone encounter Note* Telephone Encounter - Barry Eduardo RN - 05/18/2024 4:43 PM EST Called and left a detailed voicemail notifying patient of providers message. Clinic phone number was left for the patient to call back and answer the providers questions. Barry Eduardo RN [facility]12-02-2024 Telephone encounter Note* Telephone Encounter - Anay Lawrence APRN.CNP - 05/18/2024 3:48 PM EST A1c has increased to 10.2% Recommend we try another diabetic mediation called [employer]. Would have her check blood sugars twice a day and update me in two weeks with readings. We could also have her see clinical pharmacist if she agrees I can place consult They can work on adjusting medication as well. Total and bad cholesterol have increased. Did she start the Repatha injection? The rest of her blood work and urine is good. Anya Lawrence APRN.JUANITA [facility]11-20-2024 NoteHNO ID: [id number] Author: ANAY LAWRENCE APRN.CNP Service: ? Author Type: Nurse Practitioner Type: Progress Notes Filed: 05/06/2024 11:53 Note Text: Will do. [facility] NoteHNO ID: [id number] Author: ANAY LAWRENCE APRN.CNP Service: ? Author Type: Nurse Practitioner Type: Progress Notes Filed: 05/06/2024 11:29 Note Text: I started her on Repatha. [facility] History of Present illness Narrative* Anay Lawrence APRN.JUANITA - 05/06/2024 11:20 AM EST 05/06/2024 Patient presents with: F/U 6 months SUBJECTIVE: This is a 69 year old that is here today for Above Complaints. DIABETES MELLITUS: Since our last visit she denies chest pain or dyspnea , numbness, tingling or pain in extremities, new or unusual visual symptoms, low sugar/hypoglycemic reactions, weight loss/gain, lightheadedness/dizziness, and bowel changes/loose stools. Follows a diabetic diet most of the time. She is compliant with medication(s) and is tolerating med(s) without any side effects. She reports checking her glucose on a twice a day schedule with sugars in the <150 range. Patient's last HgA1C was Hemoglobin A1C (%) Date Value 10/30/2023 7.3 04/03/2023 7.2 07/04/2021 8.8 06/14/2003 5.7 ) Last Ophthalmology exam was within the past 12 months CAD: S/P CABG x4: Recently admitted to [facility] for chest pain. Stress completed. No intervention. Told to follow-up with [facility] heart group in 2-3 weeks. Has appointment scheduled for tomorrow. Admits to chest pain- uses nitro which helps most of the time. Denies SOB, dyspnea, orthopnea, or palpitations LADAN: uses CPAP nightly. Follows with [facility] sleep medicine in [place] Feels refreshed when wakes up HTN: Patient is compliant with meds Yes Monitors bp at home: Yes. Denies side effects: Yes. Chest pain: Yes. Dyspnea: No. Edema: a little . Palpitations: No. Syncope: No. Headache: Yes. Dizziness: No. HYPERLIPIDEMIA: patient unable to tolerate statins due to muscle aches. Agreeable to try Repatha GERD: taking Pantoprazole as prescribed. Works well to control symptoms PAST MEDICAL HISTORY Diagnosis Date Coronary artery disease Dr. 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, 8mm Restless legs syndrome (RLS) S/P CABG x 4 2001 Statin intolerance Type 2 diabetes mellitus without retinopathy ([facility]) 03/06/2016 Unspecified asthma(493.90) mild intermittent, triggered by damp weather Uterine prolapse s/p hysterectomy ALLERGIES Asa [Salicylates], Augmentin [Amoxicillin-Pot Clavulanate], Belladonna [Belladonna Alkaloids], Benazepril, Butazolidin [Phenylbutazone], Carbidopa, Darvocet-N 100 [Propoxyphene N-Acetaminophen], Doxycycline, Guaifenesin-Sodium Citrate, Ibuprofen, Levaquin [Levofloxacin], Lopid [Gemfibrozil], Niacin, Niaspan [Niacin (Antihyperlipidemic)], Penicillins, Provigil [Modafinil], Ramipril, Sptqnuv-Ecu-Gxo Reductase Inhibitors, Sulfa (Sulfonamide Antibiotics), and Tramadol MEDICATIONS Current Outpatient Medications Medication Sig pregabalin (LYRICA) 150 mg capsule TAKE 1 CAPSULE BY MOUTH TWICE DAILY AT SUPPER AND BEDTIME citalopram (CELEXA) 40 mg tablet Take 1 tablet by mouth once daily. CPAP/BIPAP/OTHER Type .CPAPSettings into a note to see current settings/supplies/DME information. fenofibrate nanocrystallized (TRICOR) 145 mg tablet Take 1 tablet by mouth once daily. metoprolol succinate ER (TOPROL XL) 25 mg 24 hr tablet Take 0.5 tablets by mouth once daily. metFORMIN (GLUCOPHAGE) 1,000 mg tablet Take 1 tablet by mouth two times a day with meals. aspirin, enteric coated (ASPIRIN, ENTERIC COATED) 81 mg EC tablet Take 1 tablet by mouth once daily. promethazine (PHENERGAN) 25 mg tablet Take 1 tablet by mouth every 6 hours as needed for nausea/vomiting. clopidogrel (PLAVIX) 75 mg tablet Take 75 mg by mouth once daily. isosorbide mononitrate ER (IMDUR) 60 mg 24 hr tablet Take 90 mg by mouth once daily. pantoprazole DR (PROTONIX) 40 mg tablet Take 1 tablet by mouth once daily. Take on empty stomach, 1/2 hr before meal. blood sugar diagnostic (BLOOD GLUCOSE TEST) test strip Test blood sugar(s) 2 times daily. Dx: Type 2 DM - Controlled E11.9 Insulin: No Lancets lancets Test blood sugar(s) 2 times daily. Dx: Type 2 DM - Controlled E11.9 Insulin: No cholecalciferol (VITAMIN D-3) 50 mcg (2,000 unit) tablet Take 2,000 Units by mouth once daily. CPAP/BIPAP/OTHER Formal mask fitting to consider smaller FFM like dreamwear due to dry eyes and supplies for bipap 13/8cmH2O DME [employer] CPAP/BIPAP/OTHER Replacement auto bipap 13/8 with PS of 5cmH2O DME [employer] CPAP/BIPAP/OTHER Settings decrease to autobipap 13/8cmH2O DME [employer] BIPAP DME change for supplies. Pt has a [employer] Auto BiPAP IPAP max 18, EPAP min 6 CM H2O, PS 5 cmH2O. mask, filters, heated humidity & tubing, [employer] supplies. LADAN G47.33 red yeast rice 600 mg tab ascorbic acid, vitamin C, (VITAMIN C) 500 mg tablet Take 500 mg by mouth daily at bedtime. nitroglycerin sublingual (NITROQUICK) 0.4 mg SL tablet Dissolve 0.4 mg under the tongue. MAGNESIUM ORAL Take 300 mg by mouth twice daily. some days takes three tablets ranolazine ER (RANEXA) 500 mg 12 hr tablet Take 1,000 mg by mouth twice daily. No current facility-administered medications for this visit. Medications and allergies reviewed by this provider. SOCIAL HISTORY Social History Tobacco Use Smoking status: Former Current packs/day: 0.00 Average packs/day: 0.5 packs/day for 27.0 years (13.5 ttl pk-yrs) Types: Cigarettes Start date: 1970 Quit date: 1997 Years since quittin.9 Smokeless tobacco: Never Vaping Use Vaping status: Never Used Substance Use Topics Alcohol use: Yes Comment: 2-3 drinks per month Drug use: No REVIEW OF SYSTEMS All other reviewed and negative other than HPI. OBJECTIVE: BP 130/68 Pulse (!) 51 Resp 16 Wt 91.2 kg (201 lb 1 oz) SpO2 96% BMI 33.46 kg/m . Vital signs reviewed by this provider. APPEARANCE Well appearing, alert, in no acute distress, well-hydrated, well nourished. EYES PERRLA, conjunctiva and sclera normal. HEART RRR with normal S1 and S2, no murmurs, no gallops, no JVD appreciated LUNG clear to auscultation EXTREMITIES Extremities normal, No deformities, No skin discoloration, No edema, and Normal pulses bilaterally. SKIN Skin color, texture, turgor normal, no suspicious rashes or lesions to exposed skin DM foot exam: shoes and socks removed, No deformities, ulcers, calluses, normal distal pulses, and not sensitive to monofilament right great toe Urine Albumin:Creatinine Ratio Never done Depression Screening Never done Hepatitis C Screening Never done BP Controlled (<130/80) Never done Shingrix Vaccine(1 of 2) Never done DTaP,Tdap,Td Vaccine(2 - Tdap) due on 03/17/2013 Advance Directive Discussion Never done HbA1C due on 05/01/2024 LDL Cholesterol due on 04/30/2024 Covid-19 Vaccine() due on 05/06/2025 Serum Creatinine due on 10/29/2024 Colorectal Cancer Screening due on 11/11/2024 Dilated Retinal Exam due on 11/13/2024 Mammogram Screening due on 12/17/2024 Hemoglobin/Hematocrit due on 02/18/2025 Diabetic Foot Exam due on 05/06/2025 Annual PCP Team Chronic Disease Visit due on 05/06/2025 Bone Density Screening Completed Influenza Vaccine Completed RSV Vaccine Completed Pneumococcal Vaccine: 65+ Completed ASSESSMENT/PLAN: 1. Type 2 diabetes mellitus without retinopathy (HCC) - ICD9: 250.00, ICD10: E11.9 (primary diagnosis) - Control undetermined, due for labs - Continue current medications - Statin prescribed - No, intolerance - Blood glucose monitoring on a twice daily schedule - Counseled on healthy diet and regular exercise - Discussed need for and benefit of weight loss. BMI 33.46 kg/(m^2) - Follow up in 3 months, sooner should any other issues arise. - HEMOGLOBIN A1C - METFORMIN 1,000 MG TABLET - ALBUMIN/CREATININE RATIO, URINE 2. Essential hypertension - ICD9: 401.9, ICD10: I10 - Controlled - Continue current medications - Recommend home blood pressure monitoring, to bring results to next visit - Encouraged sodium restriction, DASH or Mediterranean diet - Recommend regular aerobic exercise - Discussed need for and benefit of weight loss. BMI 33.46 kg/(m^2) - Follow up in 6 months for hypertension visit - COMPREHENSIVE METABOLIC PANEL 3. Mixed hyperlipidemia - ICD9: 272.2, ICD10: E78.2 - Control undetermined, due for labs - Start Repatha - Counseled on healthy diet and regular exercise - Discussed need for and benefit of weight loss. BMI 33.46 kg/(m^2) - Follow up in 3 months, sooner should any other issues arise. - COMPREHENSIVE METABOLIC PANEL - LIPID PANEL BASIC - EVOLOCUMAB 140 MG/ML SUBCUTANEOUS PEN INJECTOR 4. Encounter for immunization - ICD9: V03.89, ICD10: Z23 - INFLUENZA VACCINE, PRSV FREE, AGE 65+ YR, HIGH DOSE, TRIVALENT (FLUZONE HIGH-DOSE) - PNEUMOCOCCAL VACCINE, 20 VALENT (PREVNAR 20) 5. Myopathy - ICD9: 359.9, ICD10: G72.9 - due to statins - will trial Repatha 6. Coronary artery disease of [place] artery of [place] heart with stable angina pectoris (HCC) - ICD9: 414.01, 413.9, ICD10: I25.118 - follow-up with cardiology as scheduled tomorrow 7. LADAN treated with BiPAP - ICD9: 327.23, ICD10: G47.33 - continue nightly use - follow-up with sleep medicine as scheduled 8. S/P CABG x 4 - ICD9: V45.81, ICD10: Z95.1 - plan as in #6 - EVOLOCUMAB 140 MG/ML SUBCUTANEOUS PEN INJECTOR 9. Statin intolerance - ICD9: 995.27, ICD10: Z78.9 - will trial Repatha Anay Lawrence APRN.CNP Prescription instructions reviewed with patient as applicable. Patient advised if symptoms do not improve or if symptoms worsen sooner, to contact their primary care physician. Potential red flag symptoms discussed with the patient. Reviewed appropriate action plan to take if red flag symptoms occur. Patient agreeable to treatment plan. Medical Decision Making: Problems: Moderate: 2+ stable chronic illnesses Data: Unique test(s) ordered: 3+ Risk: Moderate: Drug management and Moderate risk from testing/treatment Medical Decision Making Level: 4 - Moderate documented in this encounterMari[facility]11-20-2024 [facility] History of Present illness Narrative* Estrellita Das, [facility] - 05/04/2024 3:40 PM EST Pt chart reviewed as part of population health initiative focused on statin use in patients with diabetes (DM) or cardiovascular disease (CVD). Elsa Pugh is identified through data from [employer] (insurer) as a potential candidate for statin therapy with no prescriptions claims processed for a statin medication in this calendar year. Chart Review The following case components were reviewed for current or historic statin use: Confirmed diabetes and or CVD: Yes Current/Active med list includes a statin: No IF YES, Last order date and quantity: NA Last pharmacy fill date: Per Epic: NA, Per pharmacy phone call: NA IF NO, reason identified (contraindication, intolerance, exclusion, etc.): Patient has history of intolerance to statins. Past notes have indicated she is intolerant to all statins. No statin has been diagnosed by [facility] since at least 2002. Patient with CAD - if cannot tolerate statins then should be on PCSK9i. ALLERGIES Allergen Reactions Asa [Salicylates] Vomiting Augmentin [Amoxicil* GI Upset Belladonna [Bellado* Intolerance GI upset Benazepril Cough Sep 2005 Butazolidin [Phenyl* Unknown Carbidopa Darvocet-N 100 [Pro* Intolerance HEADACHE Doxycycline Other: See Comments Patient ended up in ER with tongue and throat swelling- allergy not ruled out Guaifenesin-Sodium * Ibuprofen Rash Levaquin [Levofloxa* Other: See Comments Hallucinations anxiety numbness tingling Lopid [Gemfibrozil] Niacin Niaspan [Niacin (An* Penicillins Hives Provigil [Modafinil] Mental Status Change hallucinations Ramipril Unknown Buvguhx-Buw-Onw Red* Myalgia Sulfa (Sulfonamide * Tramadol Other: See Comments stroke like symptoms PAST MEDICAL HISTORY Diagnosis Date Coronary artery disease Dr. Osorio DDD (degenerative disc disease), lumbar Essential hypertension Generalized anxiety disorder 01/15/2023 Hemorrhage of rectum and anus History of colonic polyps Hyperlipidemia Hypoglycemia, unspecified Narcolepsy Sleep Medicine in [place] NSTEMI (non-ST elevated myocardial infarction) ([facility]) Obesity Obstructive sleep apnea on CPAP PMH - PAST MEDICAL HISTORY OF edema Renal angiomyolipoma 08/19/2023 left, 8mm Restless legs syndrome (RLS) S/P CABG x 4 2001 Statin intolerance Type 2 diabetes mellitus without retinopathy ([facility]) 03/06/2016 Unspecified asthma(493.90) mild intermittent, triggered by damp weather Uterine prolapse s/p hysterectomy Total Cholesterol, Nonfasting (mg/dL) Date Value 04/03/2023 190 HDL Cholesterol, Nonfasting (mg/dL) Date Value 04/03/2023 36 LDL Cholesterol, Nonfasting (mg/dL) Date Value 04/03/2023 87 Triglyceride (mg/dL) Date Value 07/04/2021 381 Triglycerides, Nonfasting (mg/dL) Date Value 04/03/2023 336 Outcome of review: Pending outreach to provider, Intolerance/Allergy, and Potential exclusion Patient scheduled to see PCP team on 05/06. Will reach out to provider asking to place an acceptable exclusion code so patient gets removed from measure. Will also suggest starting PCSK9i or referring to cardiology. Estrellita Das RPh documented in this encounterMarietta [facility] Clinic11-18-2024 [facility]11-[facility] Telephone encounter Note* Telephone Encounter - Baylee Colin APRN.CNP - 04/21/2024 4:23 PM EST noted [facility]11-05-[facility] Miscellaneous Notes* Telephone Encounter - Baylee Colin APRN.CNP - 04/21/2024 4:23 PM EST noted * Telephone Encounter - Brooks Cardenas - 04/21/2024 3:48 PM EST 04/21- called and spoke with patient to reschedule appointment in [place] office with Baylee. Rescheduled for 07/02/2024. Brooks Cardenas documented in this encounterMarietta Osteopathic Clinic11-05-2024 [facility] Medical Records Department [address] [place] [address] Discharge Summary 04/21/24 1611 MR#: [id number] Acct: [id number] Name: ELSA PUGH Rep #: [id number] : 1955 69 From: Helio Yuen DO PCP: Dr. Redd Linda MD Status:ADM MARILYN Location: [place] [address] Providers Date of Admission: 04/20/24 Date of Discharge: 04/21/24 Primary Care Physician: Dr. Redd Linda MD Consultations 04/21/24 13:29 Consult: Cardiology Routine Consulting Provider: Alfredo Squires Reason for Consult: abnormal stress test, signif cardiac hx w/ stenting, eval for cath EMERGENT Consult: No MD Notified: Yes Date Notified: 04/21/24 Time Notified: 13:38 Method of Notification: Text Reason For Visit: CHEST PAIN Diagnosis Discharge Diagnosis (1) Chest pain, unspecified: Status: Acute Code(s): R07.9 - Chest pain, unspecified Medications at Discharge Home Medications ascorbate calcium (vitamin C) 500 mg tablet 500 mg PO DAILY 10/26/21 red yeast rice 600 mg capsule 600 mg PO DAILY 10/26/21 pregabalin 150 mg capsule 150 mg PO BID 02/27/22 cholecalciferol (vitamin D3) 25 mcg (1,000 unit) capsule 25 mcg PO DAILY 06/04/22 metformin 500 mg tablet 1,000 mg PO BID 01/21/23 aspirin 81 mg tablet,delayed release (Adult Aspirin Regimen) 81 mg PO DAILY 05/18/23 citalopram 40 mg tablet 40 mg PO DAILY 05/18/23 Handicap Placard #1 ea 06/05/23 albuterol sulfate 90 mcg/actuation aerosol inhaler 1 puff inhalation Q6H PRN shortness of breath or wheezing #6.7 grams 07/24/23 magnesium 250 mg tablet 250 mg PO BID 09/03/23 clopidogrel 75 mg tablet 75 mg PO .COMPLEX #90 tabs 12/10/23 fenofibrate nanocrystallized 145 mg tablet 145 mg PO DAILY #90 tabs 12/10/23 furosemide 40 mg tablet 40 mg PO .COMPLEX #30 tabs 12/10/23 isosorbide mononitrate 30 mg tablet,extended release 24 hr 30 mg PO DAILY #90 tabs 12/10/23 isosorbide mononitrate 60 mg tablet,extended release 24 hr 60 mg PO DAILY #90 tabs 12/10/23 metoprolol succinate 25 mg tablet,extended release 24 hr 12.5 mg (1/2 x 25 mg) PO DAILY #45 tabs 12/10/23 nitroglycerin 0.4 mg sublingual tablet 0.4 mg sublingual Q5-15M PRN chest pain #25 tabs 12/10/23 pantoprazole 40 mg tablet,delayed release 40 mg PO BID #180 tabs 12/10/23 ranolazine 1,000 mg tablet,extended release,12 hr 1,000 mg PO BID #180 tabs 12/10/23 prednisone 10 mg tablet 10 mg PO DAILY 04/20/24 Hospital Course Operations None Procedures EKG, Nuclear stress test, Transthoracic echo and - (Chest x-ray) Summary of Care Provided Minutes Spent on Discharge: 35 Hospital Course: Patient is a 69-year-old female who presented [facility] ED on 04/20/2024 with chest pain. Short hospital course as below. Patient discharged home in stable condition on 04/21. 1. Chest pain ??? Cardiology followed. Presented with chest pressure and dyspnea with exertion in setting of history as noted below. EKG and cardiac enzymes unremarkable. TTE showed EF 75%, no other concerning findings, stable from previous. Stress test showed only a 5% area of ischemia. Per cardiology, no need for further invasive evaluation. Suspected that patient's significant life stressors could be contributing to her chest pain on admission. Continue home aspirin, Plavix, fenofibrate, nitrate, Ranexa and Toprol on discharge. Outpatient follow-up with cardiology in the next 2 to 4 weeks. 2. Sinus bradycardia ??? History of persistent sinus bradycardia with heart rate in the 40s to 50s. Remained stable during this hospitalization with adequate blood pressures. Per cardiology, okay to continue home Toprol 12.5 mg daily on discharge. 3. History of CAD s/p CABG and stenting, hypertension, hyperlipidemia, chronic HFpEF ??? Follow outpatient with [place] [facility]. Last intervention was in April 2023, had 3 stents placed at that time. Continue home medications on discharge with outpatient follow-up with cardiology soon as noted above. Chronic medical conditions: ??? Obesity: BMI 32 on admit. Complicated hospital course, care and prognosis. ??? Anxiety/depression: Did report slightly worsened anxiety on admission due to life stressors. Continue home citalopram. Recommend outpatient follow-up with PCP for further medication changes if needed. ??? GERD: Continue home PPI. ??? Mild intermittent asthma: Continue home inhalers as needed. ??? Type 2 diabetes mellitus: Continue home metformin. ??? CKD stage III: Creatinine stable at baseline during hospitalization. ??? Neuropathy: Continue home pregabalin. Total clinical time spent by myself addressing the patient's medical issues, reviewing all the data, and collaborating with patient's care team: 35 minutes. Physical Exam Const alert, oriented x3, no apparent distress, healthy appearing and well nourished General Appearance: cooperative, comf (more content not included)...[facility]11-05-2024 Telephone encounter Note* Telephone Encounter - Brooks Cardenas - 04/21/2024 3:48 PM EST 04/21- called and spoke with patient to reschedule appointment in [place] office with Baylee. Rescheduled for 07/02/2024. Brooks Cardenas [facility]11-04-2024 Telephone encounter Note* Telephone Encounter - Bonilla Camp LPN - 04/20/2024 1:18 PM EST Images from the original note were not included. [facility]11-04-2024 Miscellaneous Notes* Telephone Encounter - Bonilla Camp LPN - 04/20/2024 1:18 PM EST Images from the original note were not included. documented in this encounterMarietta Osteopathic Clinic10-23-2024 History of Present illness Narrative* Valerie Rizvi RT(Sharron) - 04/08/2024 8:00 AM EDT Radiology Service Progress Note PATIENT NAME: Elsa Pugh DATE OF SERVICE: April 08, 2024 TIME: 8:09 AM PATIENT IDENTITY VERIFICATION COMPLETED USING TWO (2) IDENTIFIERS: Name and Date of confirmedby patient verbally. FALL SCREENING: Has the patient had 2 falls in the last year or 1 fall with injury or currently using an Ambulatory Assistive Device (Walker, Cane, Wheelchair, Crutches, etc.)? No PATIENT GENDER DATA: Female. status: : No status: NO. PATIENT RELEVANT IMPLANT DATA REVIEWED: Not Applicable PATIENT PRESENTS WITH AN IMPLANTABLE OR ATTACHED BOARDING MACHINE OPERATOR: No RADIOLOGY DEPARTMENT: General X-ray: Exam(s) Completed: Chest X-Ray PERIPHERAL IV DATA: Not applicable SIGNED BY: RT Michael(R) April 08, 2024 8:09 AM documented in this encounterMarietta [facility]opathic Clinic10-23-2024 [facility]24 [facility]10-[facility] History of Present illness Narrative* Gabriela Linda MD - 04/08/2024 7:20 AM EDT Chief Complaint Patient presents with: URI: Had for 3 weeks and now seems to be lingering in her chest. HPI Elsa Pugh is a 69 year old female who presents here today for Above Complaints. Patient complaining of productive cough with green sputum, SOB, wheezing, chest pain with cough, nasal congestion, rhinorrhea, sore throat, headache, fatigue, right ear pain, vomiting (x1 last night)which started about 3 weeks ago which is worsening. Has new loss of taste/smell in the last 2-3 days. Treating with tylenol, nyquil, and albuterol inhaler PRN for wheezing. Denies fever/chills, sinuspain/pressure, myalgias, or diarrhea. Admits to sick contacts with daughter and great grand kids who live in their home. Has not tested for COVID at home. Past medical history, appointments, medications, allergies reviewed. Previous Medical History PAST MEDICAL HISTORY Diagnosis Date Coronary artery disease Dr. Devon BROWN (degenerative disc disease), lumbar Essential hypertension Generalized anxiety disorder 01/15/2023 Hemorrhage of rectum and anus History of colonic polyps Hyperlipidemia Hypoglycemia, unspecified Narcolepsy Sleep Medicine in [place] NSTEMI (non-ST elevated myocardial infarction) (HCC) Obesity Obstructive sleep apnea on CPAP PMH - PAST MEDICAL HISTORY OF edema Renal angiomyolipoma 08/19/2023 left, 8mm Restless legs syndrome (RLS) S/P CABG x 4 2001 Statin intolerance Type 2 diabetes mellitus without retinopathy (HCC) 03/06/2016 Unspecified asthma(493.90) mild intermittent, triggered by damp weather Uterine prolapse s/p hysterectomy Previous Surgical History PAST SURGICAL HISTORY Procedure Laterality Date COLONOSCOPY FLX DX W/COLLJ SPEC WHEN PFRMD 10/16/2003 Colonoscopy ESOPHAGOGASTRODUODENOSCOPY TRANSORAL DIAGNOSTIC 10/16/2003 EGD LAPS ABD PRTM&OMENTUM DX W/WO SPEC BR/WA SPX Laparoscopy PAST SURGICAL HISTORY OF 01/15/2015 4 new stents were placed PAST SURGICAL HISTORY OF 17 stents PAST SURGICAL HISTORY OF 2001 CABGx4 PAST SURGICAL HISTORY OF 04/2023 PCI of SVG to RPDA with 2 LENA implanted TONSILLECTOMY PRIMARY/SECONDARY <AGE 12 Tonsillectomy TOTAL ABDOMINAL HYSTERECT W/WO RMVL TUBE OVARY Hysterectomy, ZAKI Family History FAMILY HISTORY Problem Relation Age of Onset other (colon polyps) Father Diabetes Father Heart disease Father Diabetes Sister other (rheumatoid arthritis) Sister Anxiety disorder Sister Heart Attack Sister No Known Problems Maternal Grandmother No Known Problems Maternal Grandfather No Known Problems Paternal Grandmother No Known Problems Paternal Grandfather Drug abuse Son No Known Problems Daughter Patient Allergies ALLERGIES Allergen Reactions Asa [Salicylates] Vomiting Augmentin [Amoxicil* GI Upset Belladonna [Bellado* Intolerance GI upset Benazepril Cough Sep 2005 Butazolidin [Phenyl* Unknown Carbidopa Darvocet-N 100 [Pro* Intolerance HEADACHE Doxycycline Other: See Comments Patient ended up in ER with tongue and throat swelling- allergy not ruled out Guaifenesin-Sodium * Ibuprofen Rash Levaquin [Levofloxa* Other: See Comments Hallucinations anxiety numbness tingling Lopid [Gemfibrozil] Niacin Niaspan [Niacin (An* Penicillins Hives Provigil [Modafinil] Mental Status Change hallucinations Ramipril Unknown Joaorgp-Psi-Gid Red* Myalgia Sulfa (Sulfonamide * Tramadol Other: See Comments stroke like symptoms Current Medications Current Outpatient Medications on File Prior to Visit Medication Sig citalopram (CELEXA) 40 mg tablet Take 1 tablet by mouth once daily. CPAP/BIPAP/OTHER Type .CPAPSettings into a note to see current settings/supplies/DME information. fenofibrate nanocrystallized (TRICOR) 145 mg tablet Take 1 tablet by mouth once daily. metoprolol succinate ER (TOPROL XL) 25 mg 24 hr tablet Take 0.5 tablets by mouth once daily. aspirin, enteric coated (ASPIRIN, ENTERIC COATED) 81 mg EC tablet Take 1 tablet by mouth once daily. promethazine (PHENERGAN) 25 mg tablet Take 1 tablet by mouth every 6 hours as needed for nausea/vomiting. clopidogrel (PLAVIX) 75 mg tablet Take 75 mg by mouth once daily. isosorbide mononitrate ER (IMDUR) 60 mg 24 hr tablet Take 90 mg by mouth once daily. pantoprazole DR (PROTONIX) 40 mg tablet Take 1 tablet by mouth once daily. Take on empty stomach, 1/2 hr before meal. blood sugar diagnostic (BLOOD GLUCOSE TEST) test strip Test blood sugar(s) 2 times daily. Dx: Type 2 DM - Controlled E11.9 Insulin: No Lancets lancets Test blood sugar(s) 2 times daily. Dx: Type 2 DM - Controlled E11.9 Insulin: No cholecalciferol (VITAMIN D-3) 50 mcg (2,000 unit) tablet Take 2,000 Units by mouth once daily. CPAP/BIPAP/OTHER Formal mask fitting to consider smaller FFM like dreamwear due to dry eyes and supplies for bipap 13/8cmH2O DME [employer] CPAP/BIPAP/OTHER Replacement auto bipap 13/8 with PS of 5cmH2O DME [employer] CPAP/BIPAP/OTHER Settings decrease to autobipap 13/8cmH2O DME [employer] BIPAP DME change for supplies. Pt has a Resmed Auto BiPAP IPAP max 18, EPAP min 6 CM H2O, PS 5 cmH2O. mask, filters, heated humidity & tubing, [employer] supplies. LADAN G47.33 red yeast rice 600 mg tab ascorbic acid, vitamin C, (VITAMIN C) 500 mg tablet Take 500 mg by mouth daily at bedtime. nitroglycerin sublingual (NITROQUICK) 0.4 mg SL tablet Dissolve 0.4 mg under the tongue. MAGNESIUM ORAL Take 300 mg by mouth twice daily. some days takes three tablets ranolazine ER (RANEXA) 500 mg 12 hr tablet Take 1,000 mg by mouth twice daily. pregabalin (LYRICA) 150 mg capsule TAKE 1 CAPSULE BY MOUTH TWICE DAILY AT SUPPER AND BEDTIME pregabalin (LYRICA) 150 mg capsule TAKE 1 CAPSULE BY MOUTH TWICE DAILY AT SUPPER AND BEDTIME empagliflozin (JARDIANCE) 10 mg tablet Take 1 tablet by mouth once daily. Take 1 tablet once daily in the morning losartan (COZAAR) 25 mg tablet Take 1 tablet by mouth once daily. metFORMIN (GLUCOPHAGE) 1,000 mg tablet Take 1 tablet by mouth two times a day with meals. No current facility-administered medications on file prior to visit. Social History Social History Tobacco Use Smoking status: Former Current packs/day: 0.00 Average packs/day: 0.5 packs/day for 27.0 years (13.5 ttl pk-yrs) Types: Cigarettes Start date: 1970 Quit date: 1997 Years since quittin.8 Smokeless tobacco: Never Vaping Use Vaping status: Never Used Substance Use Topics Alcohol use: Yes Comment: 2-3 drinks per month Drug use: No Review of Symptoms REVIEW OF SYSTEMS See HPI EXAM: BP 110/64 Pulse (!) 50 Temp 36.4 C (97.6 F) Resp 16 Wt 93.1 kg (205 lb 3.2 oz) SpO2 98% BMI 34.15 kg/m General Appearance: Ill appearing, non toxic. Skin: Skin color, texture, turgor normal, no suspicious rashes or lesions. Head: Normocephalic, no masses, lesions, tenderness or abnormalities. Eyes: Anicteric sclera. Pupils are equally round and reactive to light. Extraocular movements are intact. . Ears: External ears normal, canals clear. Nose/Sinuses: Nares normal, septum midline, mucosa normal, no drainage or sinus tenderness. Oropharynx: Lips, mucosa, and tongue normal, teeth and gums normal, oropharynx normal. Neck: Supple, no adenopathy; thyroid symmetric, normal size, no bruits. Lungs: scattered expiratory wheezing bilaterally with good air entry. Positive for rhonchi. Negative for rales or consolidation. Heart: RRR without murmur, gallop, or rubs. No ectopy. Health Maintenance List Urine Albumin:Creatinine Ratio Never done Depression Screening Never done Shingrix Vaccine(1 of 2) Never done DTaP,Tdap,Td Vaccine(2 - Tdap) due on 03/17/2013 Advance Directive Discussion Never done Pneumococcal Vaccine: 65+(3 of 3 - PPSV23 or PCV20) due on 09/15/2023 Influenza Vaccine(1) due on 02/16/2024 Covid-19 Vaccine(3 - 2023- season) due on 02/16/2024 Diabetic Foot Exam due on 02/21/2024 LDL Cholesterol due on 04/30/2024 Hepatitis C Screening due on 04/10/2024 HbA1C due on 05/01/2024 Serum Creatinine due on 10/29/2024 Colorectal Cancer Screening due on 11/11/2024 Dilated Retinal Exam due on 11/13/2024 Mammogram Screening due on 12/17/2024 Hemoglobin/Hematocrit due on 02/18/2025 Annual PCP Team Chronic Disease Visit due on 04/08/2025 BP Controlled (<130/80) due on 04/08/2025 Bone Density Screening Completed RSV Vaccine Completed ASSESSMENT/PLAN: 1. Suspected COVID-19 virus infection - ICD9: V01.79, ICD10: Z20.822 (primary diagnosis) Patient with symptoms of viral infection/bronchitis with productive cough x3 weeks which is worsening. Will obtain CXR to rule out PNA. If positive, will send in abx. Otherwise, push PO fluids, rest,supportive care. Continue albuterol every 4 hours PRN and will give prednisone taper in case SOB orwheezing worsens with her history of asthma. Red flags for re-assessment reviewed with patient in detail. - COVID & INFLUENZA A/B & RSV PCR, ROUTINE - PREDNISONE 10 MG TABLET 2. Productive cough - ICD9: 786.2, ICD10: R05.8 See above. 3. Viral bronchitis - ICD9: 466.0, ICD10: J20.8 See above. - XR CHEST 2V FRONTAL/LAT - XR CHEST 2V FRONTAL/LAT - PREDNISONE 10 MG TABLET Gabriela Linda MD [facility] Telephone encounter Note * Telephone Encounter - Gabriela Linda MD - 04/03/2024 2:10 PM EDT If vaginal itching is persistent, would recommend f/u with [facility]. Will place referral. [facility]10-18-[facility]24 Miscellaneous Notes* Telephone Encounter - Gabriela Linda MD - 04/03/2024 2:10 PM EDT If vaginal itching is persistent, would recommend f/u with [facility]. Will place referral. documented in this encounterM[facility]10-14-2024 Telephone encounter Note * Telephone Encounter - Elizabeth Nguyen RN - 03/30/2024 11:09 AM EDT Called [facility] and explained the patient seems to be playing phone tag and has bee unable to speak with [facility] regarding her Nidra device. The information was given to Bernice Castañeda who was unable to speak with and will follow up with the [facility]. [facility]10-14-[facility]24 Miscellaneous Notes* Telephone Encounter - Elizabeth Nguyen RN - 03/30/2024 11:09 AM EDT Called [facility] and explained the patient seems to be playing phone tag and has bee unable to speak with [facility] regarding her Nidra device. The information was given to Bernice Castañeda who was unable to speak with and will follow up with the [facility]. documented in this [facility]10-04-2024 Telephone encounter Note * Telephone Encounter - Maddison Mullen RN - 03/20/2024 1:47 PM EDT Patient calls back and confirms that prescription is to go to [facility]10-04-2024 Miscellaneous Notes* Telephone Encounter - Maddison Mullen RN - 03/20/2024 1:47 PM EDT Patient calls back and confirms that prescription is to go to [facility] * Telephone Encounter - Maddison Mullen RN - 03/19/2024 11:42 AM EDT [facility] pharmacy calls asking for refills on Citalopram. Patient last refill was sent to a different pharmacy. Called and left message on patient's voicemail to confirm that patient needs refill on medication and that it is to be sent to [facility]. The patient has been identified by name and date of : Yes Caregiver verified no other encounters exist for this prescription request: Yes Caregiver confirmed with patient/requestor that no other refills are due, in the near future, with this provider at this time: Yes The last office visit in the department: 03/11/2024 Does the patient have a future office visit with this provider/department: Yes 05/06/2024 Requested Prescriptions Pending Prescriptions Disp Refills citalopram (CELEXA) 40 mg tablet 90 tablet 1 Sig: Take 1 tablet by mouth once daily. Maddison Mullen RN March 19, 2024 11:42 AM documented in this encounterM[facility]10-[facility]-2024 Telephone encounter Note * Telephone Encounter - Maddison Mullen RN - 03/19/2024 11:42 AM EDT [facility] pharmacy calls asking for refills on Citalopram. Patient last refill was sent to a different pharmacy. Called and left message on patient's voicemail to confirm that patient needs refill on medication and that it is to be sent to [facility]. The patient has been identified by name and date of : Yes Caregiver verified no other encounters exist for this prescription request: Yes Caregiver confirmed with patient/requestor that no other refills are due, in the near future, with this provider at this time: Yes The last office visit in the department: 03/11/2024 Does the patient have a future office visit with this provider/department: Yes 05/06/2024 Requested Prescriptions Pending Prescriptions Disp Refills citalopram (CELEXA) 40 mg tablet 90 tablet 1 Sig: Take 1 tablet by mouth once daily. Maddison Mullen RN March 19, 2024 11:42 AM [facility]-01-[facility] Telephone encounter Note* Telephone Encounter - Yaz Marquez RN - 03/17/2024 4:10 PM EDT Left detailed vm on identified vm with provider's message below. [facility]10-01-2024 Miscellaneous Notes* Telephone Encounter - Yaz Marquez RN - 03/17/2024 4:10 PM EDT Left detailed vm on identified vm with provider's message below. * Telephone Encounter - Anay Lawrence APRN.CNP - 03/17/2024 3:13 PM EDT I would have her check blood sugars twice a day and update me two weeks with readings. Glad to hearshe is having some improvement. Anay Lawrence APRN.JUANITA * Telephone Encounter - Yaz Marquez RN - 03/17/2024 2:37 PM EDT Pt returned call and given provider's message below with verbalized understanding. Patient states she did stop jardiance, and the only symptom she has is a little bit of nausea, and that may be from stopping it, but she is 50% better. States she will give it another week, and if nomore improvement, will call back to let Anay know. * Telephone Encounter - Bernice Singh MA - 03/16/2024 10:28 AM EDT Message left for pt to call back for results. Bernice Singh MA * Telephone Encounter - Dinorah De Los Santos MA - 03/12/2024 11:26 AM EDT Left message for patient to return call to office Dinorah De Los Santos MA * Telephone Encounter - Eyad Victoria APRN.CNP - 03/12/2024 11:13 AM EDT Please let patient know her BV and yeast is negative. documented in this encounterM[facility]10-01-2024 Telephone encounter Note * Telephone Encounter - Anay Lawrence APRN.CNP - 03/17/2024 3:13 PM EDT I would have her check blood sugars twice a day and update me two weeks with readings. Glad to hearshe is having some improvement. Anay Lawrence APRN.CNP [facility]10-01-[facility]24 Telephone encounter Note* Telephone Encounter - Yaz Marquez RN - 03/17/2024 2:37 PM EDT Pt returned call and given provider's message below with verbalized understanding. Patient states she did stop jardiance, and the only symptom she has is a little bit of nausea, and that may be from stopping it, but she is 50% better. States she will give it another week, and if nomore improvement, will call back to let Anay know. [facility]09-30-2024 Telephone encounter Note* Telephone Encounter - Bernice Singh MA - 03/16/2024 10:28 AM EDT Message left for pt to call back for results. Bernice Singh MA [facility]09-26-2024 Telephone encounter Note* Telephone Encounter - Dinorah De Los Santos MA - 03/12/2024 11:26 AM EDT Left message for patient to return call to office Dinorah De Los Santos MA [facility]09-26-2024 Telephone encounter Note* Telephone Encounter - Eyad Victoria APRN.CNP - 03/12/2024 11:13 AM EDT Please let patient know her BV and yeast is negative. [facility] Work Phone: 1(560) 270-578909-25-2024 [facility] History of Present illness Narrative* PodlogarAnay APRN.[employer] - 03/11/2024 2:29 PM EDT 03/11/2024 Patient presents with: Follow Up: Vaginal itching SUBJECTIVE: This is a 69 year old that is here today for Above Complaints.. Has had vaginal itching for the last three weeks. Worse after her shower and during the night. Denies abdominal pain, new sexual partners, new soaps, detergents, underwear, vaginal drainage or bleeding. PAST MEDICAL HISTORY Diagnosis Date Coronary artery disease Dr. Devon BROWN (degenerative disc disease), lumbar Essential hypertension Generalized anxiety disorder 01/15/2023 Hemorrhage of rectum and anus History of colonic polyps Hyperlipidemia Hypoglycemia, unspecified Narcolepsy Sleep Medicine in [place] NSTEMI (non-ST elevated myocardial infarction) ([facility]) Obesity Obstructive sleep apnea on CPAP PMH - PAST MEDICAL HISTORY OF edema Renal angiomyolipoma 08/19/2023 left, 8mm Restless legs syndrome (RLS) S/P CABG x 4 2001 Statin intolerance Type 2 diabetes mellitus without retinopathy ([facility]) 03/06/2016 Unspecified asthma(493.90) mild intermittent, triggered by damp weather Uterine prolapse s/p hysterectomy ALLERGIES Asa [Salicylates], Augmentin [Amoxicillin-Pot Clavulanate], Belladonna [Belladonna Alkaloids], Benazepril, Butazolidin [Phenylbutazone], Carbidopa, Darvocet-N 100 [Propoxyphene N-Acetaminophen], Doxycycline, Guaifenesin-Sodium Citrate, Ibuprofen, Levaquin [Levofloxacin], Lopid [Gemfibrozil], Niacin, Niaspan [Niacin (Antihyperlipidemic)], Penicillins, Provigil [Modafinil], Ramipril, Prbicfz-Cob-Hec Reductase Inhibitors, Sulfa (Sulfonamide Antibiotics), and Tramadol MEDICATIONS Current Outpatient Medications Medication Sig pregabalin (LYRICA) 150 mg capsule TAKE 1 CAPSULE BY MOUTH TWICE DAILY AT SUPPER AND BEDTIME pregabalin (LYRICA) 150 mg capsule TAKE 1 CAPSULE BY MOUTH TWICE DAILY AT SUPPER AND BEDTIME CPAP/BIPAP/OTHER Type .CPAPSettings into a note to see current settings/supplies/DME information. citalopram (CELEXA) 40 mg tablet Take 1 tablet by mouth once daily. empagliflozin (JARDIANCE) 10 mg tablet Take 1 tablet by mouth once daily. Take 1 tablet once daily in the morning losartan (COZAAR) 25 mg tablet Take 1 tablet by mouth once daily. fenofibrate nanocrystallized (TRICOR) 145 mg tablet Take 1 tablet by mouth once daily. metoprolol succinate ER (TOPROL XL) 25 mg 24 hr tablet Take 0.5 tablets by mouth once daily. metFORMIN (GLUCOPHAGE) 1,000 mg tablet Take 1 tablet by mouth two times a day with meals. aspirin, enteric coated (ASPIRIN, ENTERIC COATED) 81 mg EC tablet Take 1 tablet by mouth once daily. promethazine (PHENERGAN) 25 mg tablet Take 1 tablet by mouth every 6 hours as needed for nausea/vomiting. clopidogrel (PLAVIX) 75 mg tablet Take 75 mg by mouth once daily. isosorbide mononitrate ER (IMDUR) 60 mg 24 hr tablet Take 90 mg by mouth once daily. pantoprazole DR (PROTONIX) 40 mg tablet Take 1 tablet by mouth once daily. Take on empty stomach, 1/2 hr before meal. blood sugar diagnostic (BLOOD GLUCOSE TEST) test strip Test blood sugar(s) 2 times daily. Dx: Type 2 DM - Controlled E11.9 Insulin: No Lancets lancets Test blood sugar(s) 2 times daily. Dx: Type 2 DM - Controlled E11.9 Insulin: No cholecalciferol (VITAMIN D-3) 50 mcg (2,000 unit) tablet Take 2,000 Units by mouth once daily. CPAP/BIPAP/OTHER Formal mask fitting to consider smaller FFM like dreamwear due to dry eyes and supplies for bipap 13/8cmH2O DME [facility] CPAP/BIPAP/OTHER Replacement auto bipap 13/8 with PS of 5cmH2O DME [employer] CPAP/BIPAP/OTHER Settings decrease to autobipap 13/8cmH2O DME [employer] BIPAP DME change for supplies. Pt has a [employer] Auto BiPAP IPAP max 18, EPAP min 6 CM H2O, PS 5 cmH2O. mask, filters, heated humidity & tubing, [employer] supplies. LADAN G47.33 red yeast rice 600 mg tab ascorbic acid, vitamin C, (VITAMIN C) 500 mg tablet Take 500 mg by mouth daily at bedtime. nitroglycerin sublingual (NITROQUICK) 0.4 mg SL tablet Dissolve 0.4 mg under the tongue. MAGNESIUM ORAL Take 300 mg by mouth twice daily. some days takes three tablets ranolazine ER (RANEXA) 500 mg 12 hr tablet Take 1,000 mg by mouth twice daily. No current facility-administered medications for this visit. Medications and allergies reviewed by this provider. SOCIAL HISTORY Social History Tobacco Use Smoking status: Former Current packs/day: 0.00 Average packs/day: 0.5 packs/day for 27.0 years (13.5 ttl pk-yrs) Types: Cigarettes Start date: 1970 Quit date: 1997 Years since quittin.7 Smokeless tobacco: Never Vaping Use Vaping status: Never Used Substance Use Topics Alcohol use: Yes Comment: 2-3 drinks per month Drug use: No REVIEW OF SYSTEMS All other reviewed and negative other than HPI. OBJECTIVE: BP 112/52 Pulse (!) 48 Resp 16 Wt 92.2 kg (203 lb 4.2 oz) SpO2 95% BMI 33.82 kg/m . Vitalsigns reviewed by this provider. APPEARANCE Well appearing, alert, in no acute distress, well-hydrated, well nourished. FEMALE Normal external genitalia, normal vagina and normal vaginal tone, and normal cervix. No abnormal vaginal discharge. Exam chaperoned by Carolyn Middleton LPN Urine Albumin:Creatinine Ratio Never done Depression Screening Never done Shingrix Vaccine(1 of 2) Never done DTaP,Tdap,Td Vaccine(2 - Tdap) due on 03/17/2013 Advance Directive Discussion Never done Pneumococcal Vaccine: 65+(3 of 3 - PPSV23 or PCV20) due on 09/15/2023 Covid-19 Vaccine(3 - season) due on 02/16/2024 Influenza Vaccine(1) due on 02/16/2024 Diabetic Foot Exam due on 02/21/2024 Hepatitis C Screening due on 04/10/2024 LDL Cholesterol due on 04/30/2024 HbA1C due on 05/01/2024 Serum Creatinine due on 10/29/2024 Colorectal Cancer Screening due on 11/11/2024 Dilated Retinal Exam due on 11/13/2024 Mammogram Screening due on 12/17/2024 Hemoglobin/Hematocrit due on 02/18/2025 Annual PCP Team Chronic Disease Visit due on 02/24/2025 BP Controlled (<130/80) due on 02/24/2025 Bone Density Screening Completed RSV Vaccine Completed ASSESSMENT/PLAN: 1. Vaginal itching - ICD9: 698.1, ICD10: N89.8 - normal vaginal exam - no red flag symptoms or exam findings - red flag symptoms discussed, verbalizes understanding - HARPREET/TRICHOMONAS NAAT - BACTERIAL VAGINOSIS NAAT - consider may be due Jardiance - if vaginal swabs normal will have her stop Jardiance to see if this helps Anay Lawrence APRN.JUANITA Prescription instructions reviewed with patient as applicable. Patient advised if symptoms do not improve or if symptoms worsen sooner, to contact their primary care physician. Potential red flag symptoms discussed with the patient. Reviewed appropriate action plan to take if red flag symptoms occur. Patient agreeable to treatment plan. Medical Decision Making: Problems: Moderate: New problem with uncertain prognosis Data: Unique test(s) ordered: 1 Risk: Moderate: Moderate risk from testing/treatment Medical Decision Making Level: 4 - Moderate documented in this encounterM[facility]09-[facility]-2024 Telephone encounter Note * Telephone Encounter - Elizabeth Nguyen RN - 03/10/2024 1:31 PM EDT Claudia Cardenas at [facility] responded the patient form was received and the script, chart notes and demographics are needed. Everything was faxed to [facility] on 02/13/24 that is was received. Refaxed script, chart notes and demographics to [facility] [phone] with confirmation received. Claudia Cardenas noted that [facility] has been unsuccessful in contacting the patient. [employer] message sent [facility]09-24-2024 Miscellaneous Notes* Telephone Encounter - Elizabeth Nguyen RN - 03/10/2024 1:31 PM EDT Claudia Cardenas at [facility] responded the patient form was received and the script, chart notes and demographics are needed. Everything was faxed to [facility] on 02/13/24 that is was received. Refaxed script, chart notes and demographics to [facility] [phone] with confirmation received. Claudia Cardenas noted that [facility] has been unsuccessful in contacting the patient. [employer] message sent * Telephone Encounter - Elizabeth Nguyen RN - 03/10/2024 11:35 AM EDT Emailed Bernice Castañeda at [facility] asking for an update on the Nidra device since [facility] Waiting for a response from Bernice Castañeda. documented in this encounterM[facility]09-24-2024 Telephone encounter Note * Telephone Encounter - Elizabeth Nguyen RN - 03/10/2024 11:35 AM EDT Emailed Bernice Castañeda at [facility] asking for an update on the Nidra device since patient emailed her form to [facility]. Waiting for a response from Bernice Castañeda. [facility]09-23-2024 Telephone encounter Note* Telephone Encounter - Barry Eduardo RN - 03/09/2024 10:37 AM EDT Pt called and is notified of providers results and instructions. Pt voices understanding. Pt scheduled with Anay Lawrence NP on 03/11/24. Barry Eduardo RN [facility]09-23-2024 Miscellaneous Notes* Telephone Encounter - Barry Eduardo RN - 03/09/2024 10:37 AM EDT Pt called and is notified of providers results and instructions. Pt voices understanding. Pt scheduled with Anay Lawrence STUD SETTER on 03/11/24. Barry Eduardo RN * Telephone Encounter - Gabriela Linda MD - 03/09/2024 10:22 AM EDT If symptoms are not improving, recommend f/u visit with our office for speculum exam. * Telephone Encounter - Barry Eduardo RN - 03/09/2024 10:05 AM EDT Pt called in and reports Anay told her to call in with an update. She states her vaginal itching isn't any worse, but it has not gone away. Please call and advise. documented in this encounterM[facility]09-23-2024 Telephone encounter Note * Telephone Encounter - Gabriela Linda MD - 03/09/2024 10:22 AM EDT If symptoms are not improving, recommend f/u visit with our office for speculum exam. [facility]09-23-2024 Telephone encounter Note* Telephone Encounter - Barry Eduardo RN - 03/09/2024 10:05 AM EDT Pt called in and reports Anay told her to call in with an update. She states her vaginal itching isn't any worse, but it has not gone away. Please call and advise. [facility]09-10-2024 [facility] History of Present illness Narrative* Podlogar, COOPER Cueva.[employer] - 02/25/2024 1:49 PM EDT 02/25/2024 Patient presents with: Rash: Right side; x4 days SUBJECTIVE: This is a 68 year old that is here today for Above Complaints.. Itching for the last four days upper abdomen and lower back. Putting some OTC cortisone cream to areas with some mild relief. Admits to some chills this week. Denies fevers. Reports some welted areasyesterday to low back but have resolved. Recent Illness: no Any recent travel: no Contacts with same rashes: no Hx of eczema: no Hx of psoriasis: no Recent Tanning: no Any new: Lotions: no Detergents: no Soaps: no Make up: no Clothing: no Bedding: no Medications: no PAST MEDICAL HISTORY No date: Coronary artery disease Comment: Dr. Osorio No date: DDD (degenerative disc disease), lumbar No date: Essential hypertension 01/15/2023: Generalized anxiety disorder No date: Hemorrhage of rectum and anus No date: History of colonic polyps No date: Hyperlipidemia No date: Hypoglycemia, unspecified No date: Narcolepsy Comment: [facility] in [place] No date: NSTEMI (non-ST elevated myocardial infarction) (HCC) No date: Obesity No date: Obstructive sleep apnea Comment: on CPAP No date: PMH - PAST MEDICAL HISTORY OF Comment: edema 08/19/2023: Renal angiomyolipoma Comment: left, 8mm No date: Restless legs syndrome (RLS) 2002: S/P CABG x 4 No date: Statin intolerance 03/06/2016: Type 2 diabetes mellitus without retinopathy (HCC) No date: Unspecified asthma(493.90) Comment: mild intermittent, triggered by damp weather No date: Uterine prolapse Comment: s/p hysterectomy ALLERGIES Asa [Salicylates], Augmentin [Amoxicillin-Pot Clavulanate], Belladonna [Belladonna Alkaloids], Benazepril, Butazolidin [Phenylbutazone], Carbidopa, Darvocet-N 100 [Propoxyphene N-Acetaminophen], Doxycycline, Guaifenesin-Sodium Citrate, Ibuprofen, Levaquin [Levofloxacin], Lopid [Gemfibrozil], Niacin, Niaspan [Niacin (Antihyperlipidemic)], Penicillins, Provigil [Modafinil], Ramipril, Vkwsmpu-Jrg-Yhn Reductase Inhibitors, Sulfa (Sulfonamide Antibiotics), and Tramadol MEDICATIONS Current Outpatient Medications Medication Sig clotrimazole (LOTRIMIN) 1 % cream Apply to affected area two times a day for 14 days. pregabalin (LYRICA) 150 mg capsule TAKE 1 CAPSULE BY MOUTH TWICE DAILY AT SUPPER AND BEDTIME fluconazole (DIFLUCAN) 150 mg tablet Take 1 tablet by mouth every 72 hours for 3 doses. Repeat in 3days as needed. pregabalin (LYRICA) 150 mg capsule TAKE 1 CAPSULE BY MOUTH TWICE DAILY AT SUPPER AND BEDTIME CPAP/BIPAP/OTHER Type .CPAPSettings into a note to see current settings/supplies/DME information. citalopram (CELEXA) 40 mg tablet Take 1 tablet by mouth once daily. empagliflozin (JARDIANCE) 10 mg tablet Take 1 tablet by mouth once daily. Take 1 tablet once daily in the morning losartan (COZAAR) 25 mg tablet Take 1 tablet by mouth once daily. fenofibrate nanocrystallized (TRICOR) 145 mg tablet Take 1 tablet by mouth once daily. metoprolol succinate ER (TOPROL XL) 25 mg 24 hr tablet Take 0.5 tablets by mouth once daily. metFORMIN (GLUCOPHAGE) 1,000 mg tablet Take 1 tablet by mouth two times a day with meals. aspirin, enteric coated (ASPIRIN, ENTERIC COATED) 81 mg EC tablet Take 1 tablet by mouth once daily. promethazine (PHENERGAN) 25 mg tablet Take 1 tablet by mouth every 6 hours as needed for nausea/vomiting. clopidogrel (PLAVIX) 75 mg tablet Take 75 mg by mouth once daily. isosorbide mononitrate ER (IMDUR) 60 mg 24 hr tablet Take 90 mg by mouth once daily. pantoprazole DR (PROTONIX) 40 mg tablet Take 1 tablet by mouth once daily. Take on empty stomach, 1/2 hr before meal. blood sugar diagnostic (BLOOD GLUCOSE TEST) test strip Test blood sugar(s) 2 times daily. Dx: Type 2 DM - Controlled E11.9 Insulin: No Lancets lancets Test blood sugar(s) 2 times daily. Dx: Type 2 DM - Controlled E11.9 Insulin: No cholecalciferol (VITAMIN D-3) 50 mcg (2,000 unit) tablet Take 2,000 Units by mouth once daily. CPAP/BIPAP/OTHER Formal mask fitting to consider smaller FFM like dreamwear due to dry eyes and supplies for bipap 13/8cmH2O DME [facility] CPAP/BIPAP/OTHER Replacement auto bipap 13/8 with PS of 5cmH2O DME [employer] CPAP/BIPAP/OTHER Settings decrease to autobipap 13/8cmH2O DME [employer] BIPAP DME change for supplies. Pt has a Resmed Auto BiPAP IPAP max 18, EPAP min 6 CM H2O, PS 5 cmH2O. mask, filters, heated humidity & tubing, [employer] supplies. LADAN G47.33 red yeast rice 600 mg tab ascorbic acid, vitamin C, (VITAMIN C) 500 mg tablet Take 500 mg by mouth daily at bedtime. nitroglycerin sublingual (NITROQUICK) 0.4 mg SL tablet Dissolve 0.4 mg under the tongue. MAGNESIUM ORAL Take 300 mg by mouth twice daily. some days takes three tablets ranolazine ER (RANEXA) 500 mg 12 hr tablet Take 1,000 mg by mouth twice daily. No current facility-administered medications for this visit. Medications and allergies reviewed by this provider. SOCIAL HISTORY Social History Tobacco Use Smoking status: Former Current packs/day: 0.00 Average packs/day: 0.5 packs/day for 27.0 years (13.5 ttl pk-yrs) Types: Cigarettes Start date: 1970 Quit date: 1997 Years since quittin.7 Smokeless tobacco: Never Vaping Use Vaping status: Never Used Substance Use Topics Alcohol use: Yes Comment: 2-3 drinks per month Drug use: No REVIEW OF SYSTEMS All other reviewed and negative other than HPI. OBJECTIVE: BP 116/68 Pulse (!) 54 Resp 18 Wt 91 kg (200 lb 9.9 oz) SpO2 95% BMI 33.38 kg/m . Vital signs reviewed by this provider. APPEARANCE Well appearing, alert, in no acute distress, well-hydrated, well nourished. SKIN diffuse seborrheic keratosis to upper abdomen and back. Mild erythematous area from pant line otherwise no swelling or rash observed to back or abdomen. No erythema under breasts Urine Albumin:Creatinine Ratio Never done Depression Screening Never done BP Controlled (<130/80) Never done Shingrix Vaccine(1 of 2) Never done DTaP,Tdap,Td Vaccine(2 - Tdap) due on 03/17/2013 Advance Directive Discussion Never done Pneumococcal Vaccine: 65+(3 of 3 - PPSV23 or PCV20) due on 09/15/2023 Covid-19 Vaccine(3 - 2022- season) due on 02/16/2024 Influenza Vaccine(1) due on 02/16/2024 Diabetic Foot Exam due on 02/21/2024 Hepatitis C Screening due on 04/10/2024 LDL Cholesterol due on 04/30/2024 HbA1C due on 05/01/2024 Serum Creatinine due on 10/29/2024 Colorectal Cancer Screening due on 11/11/2024 Dilated Retinal Exam due on 11/13/2024 Mammogram Screening due on 12/17/2024 Annual PCP Team Chronic Disease Visit due on 02/18/2025 Hemoglobin/Hematocrit due on 02/18/2025 Bone Density Screening Completed RSV Vaccine Completed ASSESSMENT/PLAN: 1. Itching - ICD9: 698.9, ICD10: L29.9 - no red flag symptoms or exam findings - red flag symptoms discussed, verbalizes understanding - follow-up if fails to improve to ER with red flag symptoms - discussed skin care - may use OTC Benadryl as directed on packaging - TRIAMCINOLONE ACETONIDE 0.1 % TOPICAL CREAM Anay Lawrence APRN.[employer] Prescription instructions reviewed with patient as applicable. Patient advised if symptoms do not improve or if symptoms worsen sooner, to contact their primary care physician. Potential red flag symptoms discussed with the patient. Reviewed appropriate action plan to take if red flag symptoms occur. Patient agreeable to treatment plan. Medical Decision Making: Problems: Low: Acute, uncomplicated illness or injury Risk: Moderate: Drug management Medical Decision Making Level: 3 - Low [facility] Telephone encounter Note * Telephone Encounter - Anay Lawrence APRN.CNP - 02/24/2024 2:26 PM EDT Reviewed. Anay Lawrence APRN.CNP [facility]09-09-2024 Miscellaneous Notes* Telephone Encounter - Anay Lawrence APRN.CNP - 02/24/2024 2:26 PM EDT Reviewed. Anay Lawrence APRN.CNP * Telephone Encounter - Tami Jacobs LPN - 02/24/2024 1:43 PM EDT Patient updated and scheduled for 02/25/24 at 140 pm with Anay. * Telephone Encounter - Gabriela Linda MD - 02/24/2024 1:28 PM EDT The rash under her breasts is probably fungal. I worry that the rash on her right lower back could be shingles. I would recommend she be seen to confirm this and start valtrex if needed. Will call in clotrimazole cream to be used BID x 14 days for rash under her breasts. * Telephone Encounter - Doris Mcdonald RN - 02/24/2024 12:31 PM EDT Patient returned call. She says her symptoms are not new but recurrent. She says she had vaginal itching and burning prior to taking Macrobid which was prescribed on 02/16for possible UTI. She was seen by PCP on 02/18 and was prescribed Fluconazole. Macrobid was discontinued on 02/18. She says she was having vaginal symptoms and itching and burning of hands when she was seen on 02/16 for UTI. She is currently not taking an antibiotic. She has one more dose of Fluconazole to take tomorrow. She says the rash is new and started yesterday. The rash on her lower back is raised, red and itchy and is localized to mid back and right side. She also has a rash under both breasts that is pink, itchy without drainage. No longer with welts. She has no lip, tongue, throat swelling. Denies any problem with breathing or swallowing. No same day appointments available in diad. Does she need to be seen? Asking for recommendation. Doris Mcdonald RN * Telephone Encounter - Kaitlynn Noel RN - 02/24/2024 11:48 AM EDT Patient needs triaged for vaginal itching, itching on palms and fingers of hands, lower back and under breasts with raised welts. Currently on ATB. Last dose Saturday. If patient is having lip, throat, or tongue swelling recommend calling 911 for ER evaluation. Kaitlynn Noel RN documented in this encounterM[facility] Telephone encounter Note * Telephone Encounter - Tami Jacobs LPN - 02/24/2024 1:43 PM EDT Patient updated and scheduled for 02/25/24 at 140 pm with Anay. [place] [address]-09-2024 Telephone encounter Note* Telephone Encounter - Gabriela Linda MD - 02/24/2024 1:28 PM EDT The rash under her breasts is probably fungal. I worry that the rash on her right lower back could be shingles. I would recommend she be seen to confirm this and start valtrex if needed. Will call in clotrimazole cream to be used BID x 14 days for rash under her breasts. [facility] Telephone encounter Note* Telephone Encounter - Doris Mcdonald RN - 02/24/2024 12:31 PM EDT Patient returned call. She says her symptoms are not new but recurrent. She says she had vaginal itching and burning prior to taking Macrobid which was prescribed on 02/16for possible UTI. She was seen by PCP on 02/18 and was prescribed Fluconazole. Macrobid was discontinued on 02/18. She says she was having vaginal symptoms and itching and burning of hands when she was seen on 02/16 for UTI. She is currently not taking an antibiotic. She has one more dose of Fluconazole to take tomorrow. She says the rash is new and started yesterday. The rash on her lower back is raised, red and itchy and is localized to mid back and right side. She also has a rash under both breasts that is pink, itchy without drainage. No longer with welts. She has no lip, tongue, throat swelling. Denies any problem with breathing or swallowing. No same day appointments available in diad. Does she need to be seen? Asking for recommendation. Doris Mcdonald RN [facility]09-09-2024 Telephone encounter Note* Telephone Encounter - Kaitlynn Noel RN - 02/24/2024 11:48 AM EDT Patient needs triaged for vaginal itching, itching on palms and fingers of hands, lower back and under breasts with raised welts. Currently on ATB. Last dose Saturday. If patient is having lip, throat, or tongue swelling recommend calling 911 for ER evaluation. Kaitlynn Noel RN [facility]09-09-[facility]24 Telephone encounter Note* Telephone Encounter - Sammi Perez MA - 02/24/2024 11:20 AM EDT Placed on Nurse Triage appt to be called. Sammi Perez MA [facility]09-09-2024 Miscellaneous Notes* Telephone Encounter - Sammi Perez MA - 02/24/2024 11:20 AM EDT Placed on Nurse Triage appt to be called. Sammi Perez MA * Telephone Encounter - Gabriela Linda MD - 02/24/2024 10:50 AM EDT This needs triaged. If patient is having lip, throat, or tongue swelling recommend calling 911 for ER evaluation. documented in this encounterM[facility]09-[facility]-2024 Telephone encounter Note * Telephone Encounter - Gabriela Linda MD - 02/24/2024 10:50 AM EDT This needs triaged. If patient is having lip, throat, or tongue swelling recommend calling 911 for ER evaluation. [facility] Telephone encounter Note* Telephone Encounter - Veronika Graff LPN - 02/20/2024 8:14 AM EDT Message was reviewed by pt in Benjamin's Desk. Veronika Graff LPN [facility]09-05-2024 Telephone encounter Note* Telephone Encounter - Veronika Graff LPN - 02/20/2024 8:14 AM EDT ----- Message from Anay Lawrence APRN.CNP sent at 02/20/2024 7:12 AM EDT ----- Hemoglobin back in normal range. Anay Lawrence APRN.[employer] [facility]09-05-2024 Miscellaneous Notes* Telephone Encounter - Veronika Graff LPN - 02/20/2024 8:14 AM EDT Message was reviewed by pt in [facility] Desk. Veronika Graff LPN * Telephone Encounter - Veronika Graff LPN - 02/20/2024 8:14 AM EDT ----- Message from Anay Lawrence APRN.[employer] sent at 02/20/2024 7:12 AM EDT ----- Hemoglobin back in normal range. Anay Lawrnece APRN.[employer] documented in this encounterMari[facility]09-04-[facility] History of Present illness Narrative* Gabriela Linda MD - 02/19/2024 11:16 AM EDT Chief Complaint Patient presents with: Same Day Appointment: vaginal itching, burning and swelling sicne Saturday tried OTC Monistat 3 HPI Elsa Pugh is a 68 year old female who presents here today for Above Complaints.. Patient complaining of vaginal rash, itching, burning, and swelling for the last 5 days. Treated with OTC monistat 3 without improvement in symptoms. Evaluated in on 02/16 and was treated for UTI with macrobid, but urine culture was negative. Symptoms may be mildly improved with abx. Denies fever/chills, vaginal discharge or bleeding, STI exposure. Past medical history, appointments, medications, allergies reviewed. Previous Medical History PAST MEDICAL HISTORY No date: Coronary artery disease Comment: Dr. Osorio No date: DDD (degenerative disc disease), lumbar No date: Essential hypertension 01/15/2023: Generalized anxiety disorder No date: Hemorrhage of rectum and anus No date: History of colonic polyps No date: Hyperlipidemia No date: Hypoglycemia, unspecified No date: Narcolepsy Comment: Sleep Medicine in [place] No date: NSTEMI (non-ST elevated myocardial infarction) ([facility]) No date: Obesity No date: Obstructive sleep apnea Comment: on CPAP No date: [facility] - PAST MEDICAL HISTORY OF Comment: edema 08/19/2023: Renal angiomyolipoma Comment: left, 8mm No date: Restless legs syndrome (RLS) 2002: S/P CABG x 4 No date: Statin intolerance 03/06/2016: Type 2 diabetes mellitus without retinopathy ([facility]) No date: Unspecified asthma(493.90) Comment: mild intermittent, triggered by damp weather No date: Uterine prolapse Comment: s/p hysterectomy Previous Surgical History PAST SURGICAL HISTORY 10/16/2003: COLONOSCOPY FLX DX W/COLLJ SPEC WHEN PFRMD Comment: Colonoscopy 10/16/2003: ESOPHAGOGASTRODUODENOSCOPY TRANSORAL DIAGNOSTIC Comment: EGD No date: LAPS ABD PRTM&OMENTUM DX W/WO SPEC BR/WA SPX Comment: Laparoscopy 01/15/2015: PAST SURGICAL HISTORY OF Comment: 4 new stents were placed No date: PAST SURGICAL HISTORY OF Comment: 17 stents 2001: PAST SURGICAL HISTORY OF Comment: CABGx4 04/2023: PAST SURGICAL HISTORY OF Comment: PCI of SVG to RPDA with 2 LENA implanted No date: TONSILLECTOMY PRIMARY/SECONDARY <AGE 11 Comment: Tonsillectomy No date: TOTAL ABDOMINAL HYSTERECT W/WO RMVL TUBE OVARY Comment: Hysterectomy, ZAKI Family History FAMILY HISTORY Problem Relation Age of Onset other (colon polyps) Father Diabetes Father Heart disease Father Diabetes Sister other (rheumatoid arthritis) Sister Anxiety disorder Sister Heart Attack Sister No Known Problems Maternal Grandmother No Known Problems Maternal Grandfather No Known Problems Paternal Grandmother No Known Problems Paternal Grandfather Drug abuse Son No Known Problems Daughter Patient Allergies ALLERGIES Allergen Reactions Asa [Salicylates] Vomiting Augmentin [Amoxicil* GI Upset Belladonna [Bellado* Intolerance GI upset Benazepril Cough Sep 2005 Butazolidin [Phenyl* Unknown Carbidopa Darvocet-N 100 [Pro* Intolerance HEADACHE Doxycycline Other: See Comments Patient ended up in ER with tongue and throat swelling- allergy not ruled out Guaifenesin-Sodium * Ibuprofen Rash Levaquin [Levofloxa* Other: See Comments Hallucinations anxiety numbness tingling Lopid [Gemfibrozil] Niacin Niaspan [Niacin (An* Penicillins Hives Provigil [Modafinil] Mental Status Change hallucinations Ramipril Unknown Zehyfmb-Iow-Ayl Red* Myalgia Sulfa (Sulfonamide * Tramadol Other: See Comments stroke like symptoms Current Medications Current Outpatient Medications on File Prior to Visit Medication Sig nitrofurantoin monohydrate and macrocrystal (MACROBID) 100 mg capsule Take 1 capsule by mouth two times a day for 5 days. pregabalin (LYRICA) 150 mg capsule TAKE 1 CAPSULE BY MOUTH TWICE DAILY AT SUPPER AND BEDTIME CPAP/BIPAP/OTHER Type .CPAPSettings into a note to see current settings/supplies/DME information. citalopram (CELEXA) 40 mg tablet Take 1 tablet by mouth once daily. empagliflozin (JARDIANCE) 10 mg tablet Take 1 tablet by mouth once daily. Take 1 tablet once daily in the morning losartan (COZAAR) 25 mg tablet Take 1 tablet by mouth once daily. fenofibrate nanocrystallized (TRICOR) 145 mg tablet Take 1 tablet by mouth once daily. metoprolol succinate ER (TOPROL XL) 25 mg 24 hr tablet Take 0.5 tablets by mouth once daily. metFORMIN (GLUCOPHAGE) 1,000 mg tablet Take 1 tablet by mouth two times a day with meals. aspirin, enteric coated (ASPIRIN, ENTERIC COATED) 81 mg EC tablet Take 1 tablet by mouth once daily. promethazine (PHENERGAN) 25 mg tablet Take 1 tablet by mouth every 6 hours as needed for nausea/vomiting. clopidogrel (PLAVIX) 75 mg tablet Take 75 mg by mouth once daily. isosorbide mononitrate ER (IMDUR) 60 mg 24 hr tablet Take 90 mg by mouth once daily. pantoprazole DR (PROTONIX) 40 mg tablet Take 1 tablet by mouth once daily. Take on empty stomach, 1/2 hr before meal. blood sugar diagnostic (BLOOD GLUCOSE TEST) test strip Test blood sugar(s) 2 times daily. Dx: Type 2 DM - Controlled E11.9 Insulin: No Lancets lancets Test blood sugar(s) 2 times daily. Dx: Type 2 DM - Controlled E11.9 Insulin: No cholecalciferol (VITAMIN D-3) 50 mcg (2,000 unit) tablet Take 2,000 Units by mouth once daily. CPAP/BIPAP/OTHER Formal mask fitting to consider smaller FFM like dreamwear due to dry eyes and supplies for bipap 13/8cmH2O DME [employer] CPAP/BIPAP/OTHER Replacement auto bipap 13/8 with PS of 5cmH2O DME [employer] CPAP/BIPAP/OTHER Settings decrease to autobipap 13/8cmH2O DME [employer] BIPAP DME change for supplies. Pt has a [employer] Auto BiPAP IPAP max 18, EPAP min 6 CM H2O, PS 5 cmH2O. mask, filters, heated humidity & tubing, [employer] supplies. LADAN G47.33 red yeast rice 600 mg tab ascorbic acid, vitamin C, (VITAMIN C) 500 mg tablet Take 500 mg by mouth daily at bedtime. nitroglycerin sublingual (NITROQUICK) 0.4 mg SL tablet Dissolve 0.4 mg under the tongue. MAGNESIUM ORAL Take 300 mg by mouth twice daily. some days takes three tablets ranolazine ER (RANEXA) 500 mg 12 hr tablet Take 1,000 mg by mouth twice daily. No current facility-administered medications on file prior to visit. Social History Social History Tobacco Use Smoking status: Former Current packs/day: 0.00 Average packs/day: 0.5 packs/day for 27.0 years (13.5 ttl pk-yrs) Types: Cigarettes Start date: 1970 Quit date: 1997 Years since quittin.6 Smokeless tobacco: Never Vaping Use Vaping status: Never Used Substance Use Topics Alcohol use: Yes Comment: 2-3 drinks per month Drug use: No Review of Symptoms REVIEW OF SYSTEMS See HPI EXAM: BP 136/78 (BP Site: Left Arm, BP Position: Sitting, BP Cuff Size: Large Adult) Pulse (!) 56 Resp 12 Ht 165.1 cm (5' 5) Wt 88 kg (194 lb) SpO2 96% BMI 32.28 kg/m General Appearance: Well appearing, alert, in no acute distress, well-hydrated, well nourished.. Skin: Skin color, texture, turgor normal, no suspicious rashes or lesions. Pelvic: Positive findings: mild erythema of labia bilaterally with small amount of white discharge with odor. Speculum exam not completed at this OV. Chaperoned by Vivi Fatima LPN. Health Maintenance List Urine Albumin:Creatinine Ratio Never done Depression Screening Never done Shingrix Vaccine(1 of 2) Never done DTaP,Tdap,Td Vaccine(2 - Tdap) due on 03/17/2013 Advance Directive Discussion Never done Pneumococcal Vaccine: 65+(3 of 3 - PPSV23 or PCV20) due on 09/15/2023 Covid-19 Vaccine(3 - season) due on 02/16/2024 Influenza Vaccine(1) due on 02/16/2024 Diabetic Foot Exam due on 02/21/2024 Hepatitis C Screening due on 04/10/2024 LDL Cholesterol due on 04/30/2024 HbA1C due on 05/01/2024 Annual PCP Team Chronic Disease Visit due on 10/29/2024 Serum Creatinine due on 10/29/2024 Hemoglobin/Hematocrit due on 10/29/2024 Colorectal Cancer Screening due on 11/11/2024 Dilated Retinal Exam due on 11/13/2024 Mammogram Screening due on 12/17/2024 BP Controlled (<130/80) due on 02/16/2025 Bone Density Screening Completed RSV Vaccine Completed ASSESSMENT/PLAN: 1. Vulvovaginal candidiasis - ICD9: 112.1, ICD10: B37.31 Exam consistent with vaginal candidiasis. Start diflucan x 3 doses as ordered. Call if not improving after completing course. Red flags for re-assessment reviewed with patient in detail. Stop abx since she does not have UTI. - FLUCONAZOLE 150 MG TABLET Gabriela Linda MD documented in this encounterM[facility] Telephone encounter Note * Telephone Encounter - Barry Eduardo RN - 02/19/2024 8:53 AM EDT Pt called in and report she was seen in [facility] on 02/17/24 for urinary itching, burning, and swelling. Ptstates they started her on an antibiotic for a UTI which she has 2 more days of, which helped a little but they called her and told her she didn't have a UTI. Pt states she also used Monistat 3 with no relief. Pt scheduled with Dr Linda today at 1120. [facility]09-04-2024 Miscellaneous Notes* Telephone Encounter - Barry Eduardo RN - 02/19/2024 8:53 AM EDT Pt called in and report she was seen in [facility] on 02/17/24 for urinary itching, burning, and swelling. Ptstates they started her on an antibiotic for a UTI which she has 2 more days of, which helped a little but they called her and told her she didn't have a UTI. Pt states she also used Monistat 3 with no relief. Pt scheduled with Dr Linda today at 1120. documented in this encounterM[facility]09-03-2024 Telephone encounter Note * Telephone Encounter - Yvonne Roman MA - 02/18/2024 8:00 PM EDT Patient given results and verbalized understanding of instructions given. Yvonne Rmoan MA [facility]09-03-2024 Miscellaneous Notes* Telephone Encounter - Yvonne Roman MA - 02/18/2024 8:00 PM EDT Patient given results and verbalized understanding of instructions given. Yvonne Roman MA * Telephone Encounter - Leonardo Narvaez APRN.CNP - 02/18/2024 7:52 PM EDT Please notify that the urine culture showed no infection. May continue taking the antibiotic if symptoms are improving. If symptoms persist/worsen f/u with primary care. documented in this encounterMari[facility]09-03-2024 Telephone encounter Note * Telephone Encounter - Leonardo Narvaez APRN.CNP - 02/18/2024 7:52 PM EDT Please notify that the urine culture showed no infection. May continue taking the antibiotic if symptoms are improving. If symptoms persist/worsen f/u with primary care. [facility] Work Phone: 1(520) 391-355609-02-2024 Instructions* Patient Instructions* Eden Salazar PA-C - 02/17/2024 2:02 PM EDT [facility] PATIENT INFO BLADDER INFECTION OVERVIEW Bladder infections are one of the most common infections, causing symptoms of burning with urination and needing to urinate frequently. A bladder infection is a type of urinary tract infection (UTI).Bladder infections are more common is women than men. Most women have an uncomplicated bladder infection that is easily treated with a short course of antibiotics. In men, bladder infections may alsoaffect the prostate gland, and a longer course of treatment may be needed. BLADDER INFECTION CAUSES The urinary tract includes the kidneys (which filter urine), ureters (the tube that carries urine from the kidneys to the bladder), the bladder (which stores urine), and urethra (the tube that carries urine out of the bladder). Bacteria do not normally live in these areas. However, bacteria normally live close to the urethra in women and men who are not circumcised. Bladder infections occur when bacteria travel up the urethra into the bladder. Factors that increase the risk of developing a bladder infection include: Vaginal sex Use of spermicides History of past bladder infections Diabetes In men, not being circumcised or having anal sex increase the risk of bladder infections. BLADDER INFECTION SYMPTOMS The typical symptoms of a bladder infection include: Pain or burning when urinating Frequent need to urinate Urgent need to urinate Blood in the urine Fever, back pain, nausea, or vomiting are not common symptoms of a bladder infection, but can occurin people with a kidney infection (pyelonephritis). If you have these symptoms, you should call your doctor or nurse immediately. Is it a bladder infection or something else? -- Burning with urination can also occur in people with vaginitis (eg, yeast infection) or urethritis (inflammation of the urethra). For this reason, it is important to call your healthcare provider before assuming you have a bladder infection. BLADDER INFECTION DIAGNOSIS Simple bladder infections are usually diagnosed based upon your symptoms alone. However, most patients, especially those who have bladder infection symptoms for the first time, should see a healthcare provider for urine testing. Urine culture -- A urine culture is a test that uses a sample of urine to try and grow bacteria in a laboratory. It usually requires about 48 hours to get results. However, a urine culture is not always required to diagnose a bladder infection. Urine culture is often recommended if: You have never had a bladder infection before You have symptoms that are not typical for bladder infection You have had resistant bladder infections before You have frequent bladder infections You do not begin to feel better within 24 to 48 hours after starting antibiotics You are BLADDER INFECTION TREATMENT Bladder infection -- In young, healthy adolescents and adults with a bladder infection, the usual treatment includes a three to seven day course of antibiotics. The typical drugs chosen are: trimethoprim-sulfamethoxazole (Bactrim ), nitrofurantoin (Macrobid ), ciprofloxacin (Cipro ) or levofloxacin (Levaquin ). In men, the infection may involve your prostate gland and treatment is usually given for at least 7days. Your symptoms should begin to resolve within one day after starting treatment. It is important to take the full course of antibiotics to completely eliminate the infection. If your symptoms persist for more than two or three days after starting treatment, call your healthcare provider. If needed, you can take a prescription medication that numbs the bladder and urethra (phenazopyridine [Pyridium ]) to reduce the burning pain of some UTIs. A similar medication is available without aprescription (eg, Uristat). Both medications change the color of the urine (usually blue or orange)and can interfere with laboratory testing. You should not take these medications for more than 48 hours due to the risk of side effects. These medications do not treat the infection and must be takenalong with an antibiotic. Some providers recommend drinking more fluids while treating bladder infections to help flush bacteria from the bladder. Others believe that drinking more fluids may dilute the antibiotic in the bladder and make the medication less effective. No studies have been performed to address this issue. There are also no good studies on the effectiveness of cranberry juice for treating a bladder infection; we do not recommend using cranberry juice to treat bladder infections. Follow-up care -- Follow-up testing is not needed in healthy, young men or women with a bladder infection if symptoms resolve. women are usually asked to have a repeat urine culture one to two weeks after treatment has ended to make sure the bacteria are no longer in the urine. RECURRENT BLADDER INFECTIONS Bladder infections versus other causes -- Some adults, especially women, develop bladder infectionsfrequently. In this case, it is important to confirm that your symptoms (eg, pain or burning, frequency, and urgency) are caused by a bladder infection. Symptoms are usually similar from one infection to another. The best way to confirm an infection is to have a urine culture. If your urine culture is negative for infection, other causes of pain, burning, and frequency should be investigated. There is no reason to take antibiotics if your urine culture is negative. Need for further testing -- If you continue to develop bladder infections, you may require further testing. If you continue to notice blood in your urine after your bladder infection has cleared, you should have further testing. Preventing recurrent UTIs -- Women with recurrent urinary tract infections may be advised to take steps to prevent bladder infections, including one or more of the following: Changes in control -- Women who develop frequent bladder infections and use spermicides, particularly those who also use a diaphragm, may be encouraged to use an alternate method of control. Cranberry products -- Taking cranberry juice or cranberry tablets has been promoted as one way to help prevent frequent bladder infections. However, this has not been proven. Drinking more fluid and urinating after intercourse -- Although studies have not proven that drinking more fluids or urinating soon after intercourse can prevent infection, some healthcare providers recommend these measures since they are not harmful. Drinking more fluid may help to wash out bacteria that enter the bladder. Postmenopausal women -- Postmenopausal women who develop recurrent bladder infections may benefit from using vaginal estrogen. Vaginal estrogen is available in a flexible ring that is worn in the vagina for three months (eg, Estring ), a small tablet (Vagifem ), or a cream (eg, Premarin or Estrace ). Vaginal estrogen is discussed in more detail in a separate topic review. Antibiotics -- A preventive antibiotic treatment may be recommended if you repeatedly develop bladder infections and have not responded to other preventive measures. Antibiotics are highly effective in preventing recurrent bladder infections and can be taken in several different ways. Preventive antibiotic -- You can take a low dose of an antibiotic once per day or three times per week for six months to several years. Antibiotics following intercourse -- In women who develop urinary tract infections after sex, taking a single low dose antibiotic after intercourse can help to prevent bladder infections. Self-treatment -- A plan to begin antibiotics at the first sign of a bladder infection may be recommended in some situations. Before starting this regimen, it is important that you have had testing (urine cultures) to confirm that your symptoms are caused by a bladder infection; some people have symptoms of a bladder infection but do not actually have an infection. documented in [facility] of Present illness Narrative* Eden Salazar PA- C - 02/17/2024 1:56 PM EDT Subjective Elsa Pugh is a 68 year old female with a past medical history of diabetes, CAD (s/p CABG x 4), hypertension urinary frequency, dysuria, fevers, sweats, chills for the past couple of days. No flank pain. She states that she tried using Monistat with no relief. Review of Systems Constitutional: Positive for chills, diaphoresis and fever. Genitourinary: Positive for dysuria and frequency. Negative for difficulty urinating and flank pain. Musculoskeletal: Negative for back pain. Skin: Negative for rash and wound. All other systems reviewed and are negative. Objective BP 128/62 Pulse 64 Temp 36.6 C (97.9 F) Resp 16 Wt 87.9 kg (193 lb 12.6 oz) SpO2 98% BMI 31.29 kg/m Physical Exam Vitals reviewed. Constitutional: General: She is not in acute distress. Appearance: Normal appearance. She is normal weight. She is not ill-appearing or toxic-appearing. Comments: The patient appears to be non-toxic, in no acute distress, and resting comfortably on thetable. HENT: Head: Normocephalic and atraumatic. Eyes: Extraocular Movements: Extraocular movements intact. Cardiovascular: Rate and Rhythm: Normal rate and regular rhythm. Heart sounds: Normal heart sounds. No murmur heard. No friction rub. No gallop. Pulmonary: Effort: Pulmonary effort is normal. No respiratory distress. Breath sounds: Normal breath sounds. No wheezing. Abdominal: Tenderness: There is no right CVA tenderness or left CVA tenderness. Musculoskeletal: General: Normal range of motion. Cervical back: Normal range of motion. Skin: General: Skin is warm and dry. Findings: No erythema or rash. Neurological: General: No focal deficit present. Mental Status: She is alert and oriented to person, place, and time. Mental status is at baseline. Psychiatric: Mood and Affect: Mood normal. Behavior: Behavior normal. Thought Content: Thought content normal. Assessment and Plan UA consistent with possible urinary tract infection. Urine culture obtained. Results discussed withpatient. Patient counseled regarding suspected diagnosis and given a prescription for Macrobid. Advised to follow-up with primary care as needed for any new or worsening symptoms. ASSESSMENT/PLAN: 1. Leukocytes in urine - ICD9: 791.7, ICD10: R82.998 (primary diagnosis) - NITROFURANTOIN MONOHYDRATE & MACROCRYSTAL 100 MG ORAL CAP 2. Urinary frequency - ICD9: 788.41, ICD10: R35.0 - UA DIP, URINE (POC) - URINE CULTURE 3. Dysuria - ICD9: 788.1, ICD10: R30.0 - URINE CULTURE 4. Chills - ICD9: 780.64, ICD10: R68.83 - URINE CULTURE 5. Fever, unspecified fever cause - ICD9: 780.60, ICD10: R50.9 - URINE CULTURE Medical Decision Making: Problems: Low: Acute, uncomplicated illness or injury Risk: Minimal: Minimal risk from testing/treatment Moderate: Drug management Medical Decision Making Level: 3 - Low I spent a total of 20 minutes on the date of the service which included preparing to see the patient, [id number]-ff-[id number] patient care, completing clinical documentation, performing a medically appropriate examination, counseling and educating the patient/family/caregiver, and ordering medications, tests,or procedures. Eden Salazar PA-C documented in this encounterM[facility]08-29-2024 Telephone encounter Note * Telephone Encounter - Elizabeth Nguyen RN - 02/13/2024 11:17 AM EDT Nidra device prescription, chart notes, demographics and insurance faxed to [phone] with confirmation received. [facility]08-29-[facility] Miscellaneous Notes* Telephone Encounter - Elizabeth Nguyen RN - 02/13/2024 11:17 AM EDT Nidra device prescription, chart notes, demographics and insurance faxed to [facility] [employer] / [facility] [phone] with confirmation received. documented in this encounterMari[facility]08-28-2024 Telephone encounter Note * Telephone Encounter - Elizabeth Nguyen RN - 02/12/2024 3:14 PM EDT MyChart message sent [facility] Miscellaneous Notes* Telephone Encounter - Elizabeth Nguyen RN - 02/12/2024 3:14 PM EDT MyChart message sent documented in this encounterMarietta [facility]08-28-2024 History of Present illness Narrative* Rita Delgado MD - 02/12/2024 10:40 AM EDT Images from the original note were not included. [facility] Follow up/ Established patient visit Date of last visit : 12/25/2023 I have communicated my name and active licensure. The patient's identity and physical location wereverified at the time of this visit. Either the patient or their legal residential sales representative has been informed of the risks and benefits of -- and alternatives to -- treatment through a remote evaluation andconsents to proceed with the evaluation remotely. Interval history : Here for follow up for LADAN, RLS, insomnia Patient with LADAN on BiPAP 27/01, RLS on lyrica 150 mg twice a day, insomnia. SLEEP APNEA Sleep apnea type : LADAN, Most Recent Apnea-Hypopnea Index (AHI): 6.8 Treatment : PAP therapy DME: [facility] PAP History: Uses Bilevel PAP, auto Current PAP setting: min EPAP 5, max IPAP 13, PS 5 cm H2O. Reviewed objective PAP compliance data: inadequate Patient is using her CPAP most everyday, but not compliant with duration of usage Over 4 hour per day usage was 47%, average usage per day used 4 hours 31 minutes Average AHI 6.8, no significant air leakage She has been using a chin strap, and a nasal mask. The air is not blowing to her eyes, and she is not snoring. She wakes up at 5am on 3 days a week, and 8-9am the remaining of the days. RLS Latest Reference Range & Units 11/02/23 08:36 Ferritin 14.7 - 205.1 ng/mL 122.0 Iron 41 - 186 ug/dL 67 TIBC 232 - 386 ug/dL 393 (H) Transferrin Saturation 15.0 - 57.0 % 17.0 (H): Data is abnormally high On Lyrica 150 mg twice a day PDMP website checked and validated. All prescriptions have been APPROPRIATELY filled. No suspiciousactivity was identified. 02/12/2024 by Rita Delgado MD SLEEP APNEA Sleep apnea type : LADAN, Most Recent Apnea-Hypopnea Index (AHI): 6.8 Treatment : PAP therapy DME: [facility] PAP History: Uses Bilevel PAP, auto Current PAP setting: min EPAP 5, max IPAP 13, PS 5 cm H2O. She was mouth breathing and snoring a lot in the past, but not when she changed to nasal mask and chin strap. Reviewed objective PAP compliance data: inadequate There is a perceived benefit by the patient Observers report abolition of snoring with Bilevel PAP use. SLEEP HYGIENE QUESTIONS: Bedtime : 10:30pm Wake up Time : 5am for 3 days, remaining 8-9am, with alarm Time it takes to fall sleep : not long, within 15 minutes She will wake up around 12:30am, or 3am. Either her legs were acting up (RLS and back pain), or shewas wide awake. If she were up for a couple of hours, she could return to go back to sleep. Estimated total sleep time ( in a 24 hour period of time) : 6-7 hours, and fragmented Naps : Yes, 3 days a week she takes a 2 hour nap She noticed aches in her legs during the day now, but she has also been standing for long at work. When she was walking, she did not ache. PATIENT-ENTERED QUESTIONNAIRE SLEEP SCORES 12/18/2023 Sleep Questions Reason for visit: Sleep apnea Restless Legs Syndrome On average, hours of sleep in 24 hours: 5 Accidents or near accidents due to drowsy drivin Multiple values from one day are sorted in reverse-chronological order 06/12/2023 08/19/2023 12/18/2023 [place] Sleepiness Scale Score 15 (Excessive daytime sleepiness present) 14 (Excessive daytime sleepiness present) 14 (Excessive daytime sleepiness present) 06/12/2023 08/19/2023 12/18/2023 PROMIS CAT Sleep Disturbance PROMIS Sleep Disturbance T-Score 61 (moderate) 50 (within normal limits) 58 (mild) PROMIS Sleep Disturbance Percentile 14 50 21 02/09/2022 02/06/2023 12/18/2023 Insomnia Severity Index Score 10 10 13 06/12/2023 08/19/2023 12/18/2023 Restless Leg Syndrome Score 21 (Severe symptoms) 19 (Moderate symptoms) 18 (Moderate symptoms) 12/18/2023 08/20/2023 06/12/2023 PHQ-9 Score 4 8 10 04/07/2023 06/12/2023 10/07/2023 PROMIS Global Health - (T-Scores - the mean of general population = 50. Five points is a clinicallymeaningful difference.) Physical T-Score 39.8 42.3 42.3 Mental T-Score 45.8 41.1 43.5 ALLERGIES Allergen Reactions Asa [Salicylates] Vomiting Augmentin [Amoxicil* GI Upset Belladonna [Bellado* Intolerance GI upset Benazepril Cough Sep 2005 Butazolidin [Phenyl* Unknown Carbidopa Darvocet-N 100 [Pro* Intolerance HEADACHE Doxycycline Other: See Comments Patient ended up in ER with tongue and throat swelling- allergy not ruled out Guaifenesin-Sodium * Ibuprofen Rash Levaquin [Levofloxa* Other: See Comments Hallucinations anxiety numbness tingling Lopid [Gemfibrozil] Niacin Niaspan [Niacin (An* Penicillins Hives Provigil [Modafinil] Mental Status Change hallucinations Ramipril Unknown Lcsqprk-Drl-Yyi Red* Myalgia Sulfa (Sulfonamide * Tramadol Other: See Comments stroke like symptoms CURRENT MEDICATIONS: pregabalin (LYRICA) 150 mg capsule TAKE 1 CAPSULE BY MOUTH TWICE DAILY AT SUPPER AND BEDTIME CPAP/BIPAP/OTHER Type .CPAPSettings into a note to see current settings/supplies/DME information. citalopram (CELEXA) 40 mg tablet Take 1 tablet by mouth once daily. empagliflozin (JARDIANCE) 10 mg tablet Take 1 tablet by mouth once daily. Take 1 tablet once daily in the morning losartan (COZAAR) 25 mg tablet Take 1 tablet by mouth once daily. fenofibrate nanocrystallized (TRICOR) 145 mg tablet Take 1 tablet by mouth once daily. metoprolol succinate ER (TOPROL XL) 25 mg 24 hr tablet Take 0.5 tablets by mouth once daily. metFORMIN (GLUCOPHAGE) 1,000 mg tablet Take 1 tablet by mouth two times a day with meals. aspirin, enteric coated (ASPIRIN, ENTERIC COATED) 81 mg EC tablet Take 1 tablet by mouth once daily. promethazine (PHENERGAN) 25 mg tablet Take 1 tablet by mouth every 6 hours as needed for nausea/vomiting. clopidogrel (PLAVIX) 75 mg tablet Take 75 mg by mouth once daily. isosorbide mononitrate ER (IMDUR) 60 mg 24 hr tablet Take 90 mg by mouth once daily. pantoprazole DR (PROTONIX) 40 mg tablet Take 1 tablet by mouth once daily. Take on empty stomach, 1/2 hr before meal. blood sugar diagnostic (BLOOD GLUCOSE TEST) test strip Test blood sugar(s) 2 times daily. Dx: Type 2 DM - Controlled E11.9 Insulin: No Lancets lancets Test blood sugar(s) 2 times daily. Dx: Type 2 DM - Controlled E11.9 Insulin: No cholecalciferol (VITAMIN D-3) 50 mcg (2,000 unit) tablet Take 2,000 Units by mouth once daily. CPAP/BIPAP/OTHER Formal mask fitting to consider smaller FFM like dreamwear due to dry eyes and supplies for bipap 13/8cmH2O DME [facility] CPAP/BIPAP/OTHER Replacement auto bipap 13/8 with PS of 5cmH2O DME [facility] CPAP/BIPAP/OTHER Settings decrease to autobipap 13/8cmH2O DME [facility] BIPAP DME change for supplies. Pt has a [employer] Auto BiPAP IPAP max 18, EPAP min 6 CM H2O, PS 5 cmH2O. mask, filters, heated humidity & tubing, [employer] supplies. LADAN G47.33 red yeast rice 600 mg tab ascorbic acid, vitamin C, (VITAMIN C) 500 mg tablet Take 500 mg by mouth daily at bedtime. nitroglycerin sublingual (NITROQUICK) 0.4 mg SL tablet Dissolve 0.4 mg under the tongue. MAGNESIUM ORAL Take 300 mg by mouth twice daily. some days takes three tablets ranolazine ER (RANEXA) 500 mg 12 hr tablet Take 1,000 mg by mouth twice daily. Prior RLS Medications (last 20 years) 07/13/2020 23:59 RLS Medications carbidopa/levodopa 1 tablet BID ORAL (10-100 mg tab) -Discontinued Details Patient-reported medication IMPRESSION/PLAN: LADAN RLS LADAN: She is working on using her BiPAP more. She fell asleep downstairs, and her bedroom is upstairs. Will ask her to take her nap upstairs so she can use her BiPAP too. Continue with her current BiPAP setting for now RLS: Lyrica does not seem to be controlling her RLS now. She is on 150 mg twice a day Will get ferritin/iron panel, no iron supplement for 3 days, and need to be fasting blood drawn Would like to try suboxone starting but she had stroke like symptoms with tramadol. Also cannot trymethadone given side effects with darvocet. Will try TOMAC (Nidra) Follow up in 3 months Rita Delgado MD I spent a total of 25 minutes on the date of the service which included preparing to see the patient, dchk-ma-okyk patient care, completing clinical documentation, counseling and educating the patient/family/caregiver, ordering medications, tests, or procedures, and independently interpreting results (not separately reported). documented in this encounterM[facility]08-28-[facility] Tele[facility] encounter Note* Telephone Encounter - Bonilla Camp LPN - 02/04/2024 12:39 PM EDT Images from the original note were not included. [facility]08-20-2024 Miscellaneous Notes* Telephone Encounter - Bonilla Camp LPN - 02/04/2024 12:39 PM EDT Images from the original note were not included. documented in this encounterM[facility]07-11-2024 Telephone encounter Note * Telephone Encounter - Fred Castillo MA - 12/26/2023 9:29 AM EDT Faxed order, office notes, demographics, and sleep study to: DME name: [facility] fax: [phone] DME ph: [facility]07-11-[facility] Miscellaneous Notes* Telephone Encounter - Fred Castillo MA - 12/26/2023 9:29 AM EDT Faxed order, office notes, demographics, and sleep study to: DME name: [facility] fax: [phone] DME ph: documented in this encounterM[facility]07-10-2024 Telephone encounter Note * Telephone Encounter - Tami Kline LPN - 12/25/2023 1:12 PM EDT This was addressed in another phone encounter. Pt states her pharmacy is [facility] & not [facility]. Tami Kline LPN [facility]07-10-2024 Miscellaneous Notes* Telephone Encounter - Tami Kline LPN - 12/25/2023 1:12 PM EDT This was addressed in another phone encounter. Pt states her pharmacy is [facility] & not [facility]. Tami Kline LPN * Telephone Encounter - Alta Obregon OCCA - 12/18/2023 2:07 PM EDT TC to patient who is informed of providers message below. Patient states she has had difficulty having her Jardiance and Citalopram medications filled with [facility]. Did verify these medications were sent by provider on 11/13. TC to [facility] who states the patients account with them has been inactive since 05/2022. In order to activate patient needs to call [facility]. Once account has been activated, provider will need to re-send rx, pended as such. TC to patient who is informed of above and will call office once she has spoke to [facility]. SABI Desai * Telephone Encounter - Alta Obregon OCCA - 12/18/2023 1:57 PM EDT ----- Message from Anay Lawrence APRN.[employer] sent at 12/18/2023 1:51 PM EDT ----- Please call patient and let her know mammogram is normal. Repeat in one year. Anay Lawrence APRN.JUANITA documented in this encounterMari[facility]07-10-2024 Telephone encounter Note * Telephone Encounter - Tami Kline LPN - 12/25/2023 12:19 PM EDT Pt states that Citalopram & Jardiance went to an incorrect pharmacy when she requested them in October, the pharmacy should have been [facility]. Prescription Refill Information The patient has been identified by name and date of : Yes Caregiver verified no other encounters exist for this prescription request: Yes Caregiver confirmed with patient/requestor that no other refills are due, in the near future, with this provider at this time: Yes The last office visit in the department: 10/30/23 Does the patient have a future office visit with this provider/department: Yes 05/06/24 Requested Prescriptions Pending Prescriptions Disp Refills citalopram (CELEXA) 40 mg tablet 90 tablet 1 Sig: Take 1 tablet by mouth once daily. empagliflozin (JARDIANCE) 10 mg tablet 90 tablet 1 Sig: Take 1 tablet by mouth once daily. Take 1 tablet once daily in the morning Tami Kline LPN December 25, 2023 12:23 PM [facility]07-10-2024 Miscellaneous Notes* Telephone Encounter - Tami Kline LPN - 12/25/2023 12:19 PM EDT Pt states that Citalopram & Jardiance went to an incorrect pharmacy when she requested them in October, the pharmacy should have been [facility]. Prescription Refill Information The patient has been identified by name and date of : Yes Caregiver verified no other encounters exist for this prescription request: Yes Caregiver confirmed with patient/requestor that no other refills are due, in the near future, with this provider at this time: Yes The last office visit in the department: 10/30/23 Does the patient have a future office visit with this provider/department: Yes 05/06/24 Requested Prescriptions Pending Prescriptions Disp Refills citalopram (CELEXA) 40 mg tablet 90 tablet 1 Sig: Take 1 tablet by mouth once daily. empagliflozin (JARDIANCE) 10 mg tablet 90 tablet 1 Sig: Take 1 tablet by mouth once daily. Take 1 tablet once daily in the morning Tami Kline LPN December 25, 2023 12:23 PM documented in this encounterM[facility] History of Present illness Narrative* Randall Silva, GUIDE DOG TRAINER.NUTRITION CLUB AMBASSADOR - 12/25/2023 11:51 AM EDT Images from the original note were not included. [facility] Follow up/ Established patient visit Date of last visit : 08/21/2023 in person IMPRESSION: The patient is a 68 year old who presents today for evaluation of LADAN and RLS. LADAN - Continue Bilevel PAP at 13/8 cmH2O. - Remember to clean your mask and equipment regularly, as directed. - You should be eligible for new supplies approximately every 3-6 months, depending on your insurance coverage. Contact your Durable Medical Equipment (DME) company for new supplies as needed. - Follow up in 4 months .Consult to behavior sleep medicine specialist for individual or group cognitive behavioral therapyfor insomnia ( CBTi ). - Role of weight discussed. - We reviewed the importance of avoiding driving or operating heavy machinery when drowsy, and patient expressed his understanding of this important point. RLS - RLS symptoms might be worsened by ongoing Kidney disease - Continue Lyrica 150 mg twice a day for treatment of RLS. - Will recheck iron panel when chronic issues are more under control. - Will discuss increasing lyrica when other chronic issues are well controlled I discussed my impression with the patient and patient agreed with the plan. Thank you for involving Sleep Medicine in this patient's care. It was a pleasure to see Elsa Pugh today. Discussed with staff physician, Dr Sandy Hartley MD Sleep Medicine Fellow Attending Note I evaluated the patient and personally participated in the nicholson components. I agree with Dr. Dang Hartley's findings and plan as documented and have discussed the case and management of the patient's care with the fellow. Patient with LADAN on BiPAP, RLS on lyrica, insomnia. Given her recent medical events, AR, kidney disease, she would like to not make any changes at this time. Encourage regular usage of BiPAP. Return in 4 months with our sleep MARTHA, earlier as needed. Signature: Rita Delgado MD Date: 08/21/2023 I have communicated my name and active licensure. The patient's identity and physical location wereverified at the time of this visit. Either the patient or their legal residential sales representative has been informed of the risks and benefits of -- and alternatives to -- treatment through a remote evaluation andconsents to proceed with the evaluation remotely. Interval history : Here for follow up for LADAN & RLS SLEEP APNEA Sleep apnea type : LADAN, Most Recent Apnea-Hypopnea Index (AHI): 17.6 Treatment : PAP therapy DME: [facility] PAP History: CPAP/RAD Settings More data exists CPAP/RAD SETTINGS PAP Device Bilevel Bilevel Auto EPAP Min IPAP Max PS Fixed 02/26/2022 Bilevel Auto (E0470) ResMed 8 13 5 CPAP/RAD Supplies More data exists CPAP DME Supplies Mask Interface DME DME Other 10/17/2022 Patient Choice (All) External DME - Print DME name: [facility] [phone] Reviewed objective PAP compliance data: Mask type: nasal mask Takes mask off upon awakening at night. There is a perceived benefit by the patient: feels more refreshed RLS Feels RLS is well controlled. Current treatment : Takes lyrica 150 mg after supper and at bedtime. Ferritin >100 No longer has cane used for stabilization - torn meniscus x 2 Reports she needs to change pharmacy to [facility] mail order pharmacy per insurance. PDMP website checked and validated. All prescriptions have been APPROPRIATELY filled. No suspiciousactivity was identified. 12/25/2023 by Randall Silva APRN.NUTRITION CLUB AMBASSADOR SLEEP HYGIENE QUESTIONS: Number of times patient wakes up per night : at least 2 Reason (s) why patient wakes up during the night : unknown Estimated total sleep time ( in a 24 hour period of time) : 5-6 Naps : not lately PATIENT-ENTERED QUESTIONNAIRE SLEEP SCORES 12/18/2023 Sleep Questions Reason for visit: Sleep apnea Restless Legs Syndrome On average, hours of sleep in 24 hours: 5 Accidents or near accidents due to drowsy drivin 06/12/2023 08/19/2023 12/18/2023 [place] Sleepiness Scale Score 15 (Excessive daytime sleepiness present) 14 (Excessive daytime sleepiness present) 14 (Excessive daytime sleepiness present) 06/12/2023 08/19/2023 12/18/2023 PROMIS CAT Sleep Disturbance PROMIS Sleep Disturbance T-Score 61 (moderate) 50 (within normal limits) 58 (mild) PROMIS Sleep Disturbance Percentile 14 50 21 02/09/2022 02/06/2023 12/18/2023 Insomnia Severity Index Score 10 10 13 06/12/2023 08/19/2023 12/18/2023 Restless Leg Syndrome Score 21 (Severe symptoms) 19 (Moderate symptoms) 18 (Moderate symptoms) 06/12/2023 08/20/2023 12/18/2023 PHQ-9 Score 10 8 4 04/07/2023 06/12/2023 10/07/2023 PROMIS Global Health - (T-Scores - the mean of general population = 50. Five points is a clinicallymeaningful difference.) Physical T-Score 39.8 42.3 42.3 Mental T-Score 45.8 41.1 43.5 PMH, PSH, SH: ED visit at [facility] - CP, N/V, recovering from bronchitis Troponins and X-ray: wnl SLEEP RELATED ROS Review of Systems Respiratory: Positive for cough (d/t bronchitis). Cardiovascular: See HPI Gastrointestinal: See HPI ALLERGIES Allergen Reactions Asa [Salicylates] Vomiting Augmentin [Amoxicil* GI Upset Belladonna [Bellado* Intolerance GI upset Benazepril Cough Sep 2005 Butazolidin [Phenyl* Unknown Carbidopa Darvocet-N 100 [Pro* Intolerance HEADACHE Doxycycline Other: See Comments Patient ended up in ER with tongue and throat swelling- allergy not ruled out Guaifenesin-Sodium * Ibuprofen Rash Levaquin [Levofloxa* Other: See Comments Hallucinations anxiety numbness tingling Lopid [Gemfibrozil] Niacin Niaspan [Niacin (An* Penicillins Hives Provigil [Modafinil] Mental Status Change hallucinations Ramipril Unknown [id number]-[id number] Red* Myalgia Sulfa (Sulfonamide * Tramadol Other: See Comments stroke like symptoms CURRENT MEDICATIONS: losartan (COZAAR) 25 mg tablet Take 1 tablet by mouth once daily. fenofibrate nanocrystallized (TRICOR) 145 mg tablet Take 1 tablet by mouth once daily. citalopram (CELEXA) 40 mg tablet Take 1 tablet by mouth once daily. empagliflozin (JARDIANCE) 10 mg tablet Take 1 tablet by mouth once daily. Take 1 tablet once daily in the morning metoprolol succinate ER (TOPROL XL) 25 mg 24 hr tablet Take 0.5 tablets by mouth once daily. pregabalin (LYRICA) 150 mg capsule TAKE 1 CAPSULE BY MOUTH TWICE DAILY AT SUPPER AND BEDTIME metFORMIN (GLUCOPHAGE) 1,000 mg tablet Take 1 tablet by mouth two times a day with meals. aspirin, enteric coated (ASPIRIN, ENTERIC COATED) 81 mg EC tablet Take 1 tablet by mouth once daily. promethazine (PHENERGAN) 25 mg tablet Take 1 tablet by mouth every 6 hours as needed for nausea/vomiting. clopidogrel (PLAVIX) 75 mg tablet Take 75 mg by mouth once daily. isosorbide mononitrate ER (IMDUR) 60 mg 24 hr tablet Take 90 mg by mouth once daily. pantoprazole DR (PROTONIX) 40 mg tablet Take 1 tablet by mouth once daily. Take on empty stomach, 1/2 hr before meal. ezetimibe (ZETIA) 10 mg tablet Take 1 tablet by mouth once daily. ACCU-CHEK FASTCLIX LANCET DRUM lancets 1 Each two times a day. ACCU-CHEK SMARTVIEW TEST STRIP test strip 1 Strip two times a day. blood sugar diagnostic (BLOOD GLUCOSE TEST) test strip Test blood sugar(s) 2 times daily. Dx: Type 2 DM - Controlled E11.9 Insulin: No Lancets lancets Test blood sugar(s) 2 times daily. Dx: Type 2 DM - Controlled E11.9 Insulin: No cholecalciferol (VITAMIN D-3) 50 mcg (2,000 unit) tablet Take 2,000 Units by mouth once daily. CPAP/BIPAP/OTHER Formal mask fitting to consider smaller FFM like dreamwear due to dry eyes and supplies for bipap 13/8cmH2O DME [facility] CPAP/BIPAP/OTHER Replacement auto bipap 13/8 with PS of 5cmH2O DME [facility] CPAP/BIPAP/OTHER Settings decrease to autobipap 13/8cmH2O DME [employer] BIPAP DME change for supplies. Pt has a [employer] Auto BiPAP IPAP max 18, EPAP min 6 CM H2O, PS 5 cmH2O. mask, filters, heated humidity & tubing, [employer] supplies. LADAN G47.33 red yeast rice 600 mg tab ascorbic acid, vitamin C, (VITAMIN C) 500 mg tablet Take 500 mg by mouth daily at bedtime. nitroglycerin sublingual (NITROQUICK) 0.4 mg SL tablet Dissolve 0.4 mg under the tongue. MAGNESIUM ORAL Take 300 mg by mouth twice daily. some days takes three tablets ranolazine ER (RANEXA) 500 mg 12 hr tablet Take 1,000 mg by mouth twice daily. Prior Hypersomnia/Narcolepsy Medications (20 years) 09/01/2014 23:59 Hypersomnia/Narcolepsy Medications armodafinil 50 mg DAILY ORAL -Discontinued (ADVERSE REAC) No sig Details Outpatient prescription Prior RLS Medications (last 20 years) 07/13/2020 23:59 RLS Medications carbidopa/levodopa 1 tablet BID ORAL (10-100 mg tab) -Discontinued No sig Details Patient-reported medication Prior Insomnia Medications (last 20 years) 08/26/2023 Insomnia Medications citalopram hydrobromide 40 mg DAILY ORAL -Discontinued No sig citalopram hydrobromide 40 mg DAILY ORAL Details Outpatient prescription Medication marked as long-term Patient-reported medication PHYSICAL EXAMINATION: General appearance: NAD, pleasant Mental status: Awake & alert Constitutional: WNL Neuro: Fluent speech IMPRESSION / PLAN: Moderate OSAS is benefiting from PAP Therapy. Residual AHI slightly elevated at 5.7 which may be due to mask leak. Using nasal mask; interested in using a chin strap. - [facility]: Provide supplies including chin strap. - Continue Auto Bilevel PAP at current settings. - Remember to clean your mask and equipment regularly, as directed. - You should be eligible for new supplies approximately every 3-6 months, depending on your insurance coverage. Contact your Durable Medical Equipment (DME) company for new supplies as needed. RLS well controlled. Ferritin >100. - Continue Lyrica bid with new [facility] mail order pharmacy. - Follow up in 3-4 months. Randall Silva APRN.JUANITA I spent a total of 33 minutes on the date of the service which included preparing to see the patient, [id number] patient care, completing clinical documentation, counseling and educating the patient/family/caregiver, and ordering medications, tests, or procedures. documented in this encounterMari[facility]07-09-2024 Telephone encounter Note * Telephone Encounter - Annalisa Meyer MA - 12/24/2023 4:02 PM EDT Images from the original note were not included. [facility]07-[facility] Miscellaneous Notes* Telephone Encounter - Annalisa Meyer MA - 12/24/2023 4:02 PM EDT Images from the original note were not included. documented in this encounterMarietta [facility] Clinic07-03-2024 Telephone encounter Note * Telephone Encounter - Alta Obregon OCCA - 12/18/2023 2:07 PM EDT TC to patient who is informed of providers message below. Patient states she has had difficulty having her Jardiance and Citalopram medications filled with [facility]. Did verify these medications were sent by provider on 11/13. TC to [facility] who states the patients account with them has been inactive since 05/2022. In order to activate patient needs to call [facility]. Once account has been activated, provider will need to re-send rx, pended as such. TC to patient who is informed of above and will call office once she has spoke to [place]. SABI Desai [facility]07-03-[facility]24 Telephone encounter Note* Telephone Encounter - Alta Obregon OCCA - 12/18/2023 1:57 PM EDT ----- Message from Anay Lawrence APRN.CNP sent at 12/18/2023 1:51 PM EDT ----- Please call patient and let her know mammogram is normal. Repeat in one year. Anay Lawrence APRN.CNP [facility]07-03-[facility]24 Miscellaneous Notes* Letter - Coordinator, Mammography - 12/18/2023 1:07 PM EDT December 18, 2023 PID: [id number] Elsa Pugh [address] [place] [address] Dear Ms. Pugh, We are pleased to inform you that the results of your recent breast imaging exam on 12/18/2023 are normal. Early detection of cancer is very important. We also understand recommendations regarding breast cancer screening are controversial. Please discuss with your primary care provider which strategy is best for you and whether a mammogram is right for you. Your imaging studies and report will be kept on file at [facility] as part of your permanent medical record and are available for your continuing care. Thank you for allowing us to help in meeting your health care needs. Sincerely, Dr. Parrsih Interpreting Radiologist [facility] (Normal over 40) documented in this encounterMarietta [facility] Clinic07-03-2024 Note* Letter - Coordinator, Mammography - 12/18/2023 1:07 PM EDT December 18, 2023 PID: [id number] Elsa Pugh [address] [place] [address] Dear Ms. Pugh, We are pleased to inform you that the results of your recent breast imaging exam on 12/18/2023 are normal. Early detection of cancer is very important. We also understand recommendations regarding breast cancer screening are controversial. Please discuss with your primary care provider which strategy is best for you and whether a mammogram is right for you. Your imaging studies and report will be kept on file at [facility] as part of your permanent medical record and are available for your continuing care. Thank you for allowing us to help in meeting your health care needs. Sincerely, Dr. Parrish Interpreting Radiologist [facility] (Normal over 40) [facility]07-03-2024 History of Present illness Narrative* Selam Danielle, Mammo Tech - 12/18/2023 10:10 AM EDT Radiology Service Progress Note PATIENT NAME: Elsa Pugh DATE OF SERVICE: December 18, 2023 TIME: 9:59 AM PATIENT IDENTITY VERIFICATION COMPLETED USING TWO (2) IDENTIFIERS: Name and Date of confirmedby patient verbally. FALL SCREENING: Has the patient had 2 falls in the last year or 1 fall with injury or currently using an Ambulatory Assistive Device (Walker, Cane, Wheelchair, Crutches, etc.)? No PATIENT GENDER DATA: Female. status: : No status: NO. PATIENT RELEVANT IMPLANT DATA REVIEWED: Not Applicable PATIENT PRESENTS WITH AN IMPLANTABLE OR ATTACHED BOARDING MACHINE OPERATOR: No RADIOLOGY DEPARTMENT: Mammography PERIPHERAL IV DATA: Not applicable SIGNED BY: Ros Rivaso Erik December 18, 2023 9:59 AM documented in this encounterMarietta [facility] Clinic06-24-2024 History of Present illness Narrative* Lori Lerma - 12/09/2023 2:38 PM EDT Elsa Pugh is identified through a medication adherence outreach initiative based on pharmacy claims data from [employer] (insurer) for RAFAELA medication(s). Patient is reviewed 12/09/23 due to medication adherence concerns with the following medications (name, strength, sig): Losartan 25 mg 1 tablet every day . Per data/report, last fill date and days supply: Due 10/03/2023 Per reconcile dispense, last fill date and days supply: No data Per call to pharmacy, last picked up date and days supply: NA Contacted patient: No answer; left generic VM Outcome of review/outreach: (choose outcome source and status) - LVM for patient Lori Murphy Maria Guadalupe documented in this encounterMarietta [facility] Clinic06-11-2024 Telephone encounter Note * Telephone Encounter - Lori Lerma - 11/26/2023 11:41 AM EDT Patient reviewed for Population Health Medication Adherence Pended the following prescription(s) for review. Requested Prescriptions Pending Prescriptions Disp Refills losartan (COZAAR) 25 mg tablet 90 tablet 3 Sig: Take 1 tablet by mouth once daily. Future Appointments Date Time Provider Department Center 12/18/2023 10:10 AM SCREEN MAMMO [facility] [place] 12/25/2023 12:00 PM Randall Silva APR[facility]ITA [facility] 01/02/2024 2:00 PM Baylee Colin APRN.JUANITA [place] 02/13/2024 3:45 PM [facility] [place] 05/06/2024 11:20 AM Anay Lawrence APRN.JUANITA CUADRA [facility] [place] Please review and refill if appropriate. Thank you. Lori Lerma November 26, 2023 11:42 AM [facility]06-11-[facility]24 Miscellaneous Notes* Telephone Encounter - Lori Lerma - 11/26/2023 11:41 AM EDT Patient reviewed for Population Health Medication Adherence Pended the following prescription(s) for review. Requested Prescriptions Pending Prescriptions Disp Refills losartan (COZAAR) 25 mg tablet 90 tablet 3 Sig: Take 1 tablet by mouth once daily. Future Appointments Date Time Provider Department Center 12/18/2023 10:10 [facility] [place] 12/25/2023 12:00 PM Randall [facility]JUANITA [facility] 01/02/2024 2:00 PM Baylee Colin APRN.JUANITA [place] 02/13/2024 3:45 PM [facility] [place] 05/06/2024 11:20 AM Anya Lawrence APRN.JUANITA OTOOLECELINA [facility] Please review and refill if appropriate. Thank you. Lori Lerma November 26, 2023 11:42 AM documented in this encounterMarietta [facility] Clinic06-05-2024 Telephone encounter Note * Telephone Encounter - Nataliya Martinez LPN - 11/20/2023 3:56 PM EDT Patient called requesting a current medication list be faxed to [facility]. Printed list and faxed to [phone]. [facility]06-05-2024 Miscellaneous Notes* Telephone Encounter - Nataliya Martinez LPN - 11/20/2023 3:56 PM EDT Patient called requesting a current medication list be faxed to [facility]. Printed list and faxed to [phone]. documented in this encounterMarietta [facility] Clinic06-03-2024 Telephone encounter Note * Telephone Encounter - Samantha Mccallum - 11/18/2023 9:22 AM EDT Called pt to schedule consult, LVM Samantha Mccallum [facility]06-03-2024 Miscellaneous Notes* Telephone Encounter - Samantha Mccallum - 11/18/2023 9:22 AM EDT Called pt to schedule consult, LVYaz Mccallum documented in this encounterMarietta [facility]opathic Clinic05-30-2024 Telephone encounter Note * Telephone Encounter - Elsa Mcclain LPN - 11/14/2023 7:29 AM EDT VIN[facility]-10/30/23 Labs-10/30/23Apr-05/06/24 Elsa Mcclain LPN [facility]05-30-2024 Miscellaneous Notes* Telephone Encounter - Elsa Mcclain LPN - 11/14/2023 7:29 AM EDT [facility]-10/30/23 Labs-10/30/23Apr-05/06/24 Elsa Mcclain LPN documented in this encounterMarietta [facility] Clinic05-29-2024 Telephone encounter Note * Telephone Encounter - Alta Obregon OCCA - 11/13/2023 2:17 PM EDT TC to patient who verbalized understanding of providers message below. SABI Bueno [facility]05-29-2024 Miscellaneous Notes* Telephone Encounter - Alta Obregon OCCA - 11/13/2023 2:17 PM EDT TC to patient who verbalized understanding of providers message below. SABI Bueno * Telephone Encounter - Anay Lawrence APRN.CNP - 11/13/2023 8:30 AM EDT Stool for blood negative. Will have her recheck her hemoglobin in three months to make sure it is stable Anay Lawrence APRN.CNP documented in this encounterMarietta [facility] Clinic05-29-2024 Telephone encounter Note * Telephone Encounter - Anay Lawrence APRN.CNP - 11/13/2023 8:30 AM EDT Stool for blood negative. Will have her recheck her hemoglobin in three months to make sure it is stable Anay Lawrence APRN.CNP [facility]05-28-2024 Telephone encounter Note* Telephone Encounter - Blake Gomes - 11/12/2023 9:03 AM EDT LVM with patient to call back and schedule OV with Baylee (preferably in [place]). Blake Gomes [facility]05-28-2024 Miscellaneous Notes* Telephone Encounter - Blake Gomes - 11/12/2023 9:03 AM EDT LVM with patient to call back and schedule OV with Baylee (preferably in [place]). Blake Gomes documented in this encounterMarietta [facility] Clinic05-20-2024 Telephone encounter Note * Telephone Encounter - Doris Mcdonald RN - 11/04/2023 5:10 PM EDT Spoke with patient. Given message from provider's office. Patient verbalizes understanding. Doris Mcdonald RN [facility]05-20-2024 Telephone encounter Note* Telephone Encounter - Doris Mcdonald RN - 11/04/2023 5:10 PM EDT Spoke with patient. Given message from provider's office. Patient verbalizes understanding. Doris Mcdonald RN [facility]05-20-2024 Miscellaneous Notes* Telephone Encounter - Doris Mcdonald RN - 11/04/2023 5:10 PM EDT Spoke with patient. Given message from provider's office. Patient verbalizes understanding. Doris Mcdonald RN * Telephone Encounter - Elizbaeth Nguyen RN - 11/04/2023 1:52 PM EDT Called and confirmed with [facility] refill for pregabalin 150 mg capsules is in file. documented in this encounterMarietta [facility]opathic Clinic05-20-2024 Miscellaneous Notes* Telephone Encounter - Doris Mcdonald RN - 11/04/2023 5:10 PM EDT Spoke with patient. Given message from provider's office. Patient verbalizes understanding. Doris Mcdonald RN * Telephone Encounter - Bernice Singh MA - 11/04/2023 10:16 AM EDT Message left for pt to call back for results. Bernice Singh MA * Telephone Encounter - Anay Lawrence APRN.CNP - 11/04/2023 6:56 AM EDT Iron level, iron stores, B12 and folic acid normal. Bring in stool to check for blood. Will send inprescription for Jardiance for blood sugars- take one tablet daily. Check blood sugars twice a day and update me in one month with readings sooner if develops lows. Anay Lawrence APRN.JUANITA * Telephone Encounter - Maddison Mullen RN - 11/01/2023 3:45 PM EDT Patient notified of results and provider's instructions. Patient verbalizes understanding. Patient would like to try another oral medication to help bring down sugars. Maddison Mullen RN * Telephone Encounter - Elvia Middleton LPN - 11/01/2023 9:09 AM EDT Message left for patient to call office back for update. Elvia Middleton LPN * Telephone Encounter - Anay Lawrence APRN.CNP - 11/01/2023 6:48 AM EDT Hemoglobin some better but still sowing anemia- will order additional blood work and also would like to order ifobt- will need to get container from lab. Her A1c has increased from 7.2 to 7.3%- we can either retry low dose Ozempic but will need to stop if she starts with any GI distress or we can try another oral medication.- recheck A1c in 3 months. Kidney function decreased but stable- continuelow salt diet, avoidance of NSAID products and stay well hydrated with water Anay Lawrence APRN.CNP documented in this encounterMarietta [facility] Clinic05-20-2024 Telephone encounter Note * Telephone Encounter - Elizabeth Nguyen RN - 11/04/2023 1:52 PM EDT [facility]. [facility]05-20-[facility]24 Telephone encounter Note* Telephone Encounter - Bernice Singh MA - 11/04/2023 10:16 AM EDT Message left for pt to call back for results. Bernice Singh MA [facility]05-20-2024 Telephone encounter Note* Telephone Encounter - Anay Lawrence APRN.CNP - 11/04/2023 6:56 AM EDT Iron level, iron stores, B12 and folic acid normal. Bring in stool to check for blood. Will send inprescription for Jardiance for blood sugars- take one tablet daily. Check blood sugars twice a day and update me in one month with readings sooner if develops lows. Anay Lawrence APRN.CNP [facility]05-17-2024 Telephone encounter Note* Telephone Encounter - Maddison Mullen RN - 11/01/2023 3:45 PM EDT Patient notified of results and provider's instructions. Patient verbalizes understanding. Patient would like to try another oral medication to help bring down sugars. Maddison Mullen, RN [facility]05-17-2024 Telephone encounter Note* Telephone Encounter - Elvia Middleton LPN - 11/01/2023 9:09 AM EDT Message left for patient to call office back for update. Elvia Middleton LPN [facility]05-17-2024 Telephone encounter Note* Telephone Encounter - Anay Lawrence APRN.[employer] - 11/01/2023 6:48 AM EDT Hemoglobin some better but still sowing anemia- will order additional blood work and also would like to order ifobt- will need to get container from lab. Her A1c has increased from 7.2 to 7.3%- we can either retry low dose Ozempic but will need to stop if she starts with any GI distress or we can try another oral medication.- recheck A1c in 3 months. Kidney function decreased but stable- continuelow salt diet, avoidance of NSAID products and stay well hydrated with water Anay Lawrence APRN.[employer] AMBASS[employer]OR [facility]05-16-2024 Telephone encounter Note* Telephone Encounter - Priscilla Salas - 10/31/2023 10:44 AM EDT LVM to schedule appt Priscilla Salas [facility]05-16-2024 Miscellaneous Notes* Telephone Encounter - Priscilla Salas - 10/31/2023 10:44 AM EDT LVM to schedule appt Priscilla Salas documented in this encounterMarietta [facility]05-15-[facility]24 History of Present illness Narrative* Podlogar, AnayCOOPER.[employer] AMBASSADOR - 10/30/2023 10:40 AM EDT 10/30/2023 Patient presents with: F/U 3 Month SUBJECTIVE: This is a 68 year old that is here today for Above Complaints.. DIABETES MELLITUS:carlos our last visit she denies chest pain or dyspnea , numbness, tingling or painin extremities, new or unusual visual symptoms, low sugar/hypoglycemic reactions, weight loss/gain,lightheadedness/dizziness, and bowel changes/loose stools . Admits to polyuia and polydipsia. Follows a diabetic diet some of the time. She is compliant with medication(s) and is tolerating med(s) without any side effects. She reports checking her glucose on a twice a day schedule with sugars in the <200 range. Patient's last HgA1C was Hemoglobin A1C (%) Date Value 04/03/2023 7.2 01/08/2023 9.3 07/04/2021 8.8 06/14/2003 5.7 ) Last Ophthalmology exam was has upcoming at the end of the month CAD: S/P CABG x4: following with [facility] cardiology a month ago.Completed 12 weeks of cardiac rehab. Metoprolol XL decreased to 12.5 mg. Denies dyspnea, orthopnea, chest pain, palpitations or leg swelling LADAN: uses CPAP nightly. Follows with [facility] sleep medicine in [place] Feels refreshed when wakes up HTN: Patient is compliant with meds Yes Monitors bp at home: Yes. Denies side effects: Yes. Chest pain: No. Dyspnea: No. Edema: No. Palpitations: No. Syncope: No. Headache: No. Dizziness: No. HYPERLIPIDEMIA: Patient is taking medications: Yes. Patient is watching diet: Yes. Patient denies myalgias: Yes. Patient denies gi upset: Yes GERD: taking Pantoprazole as prescribed. Works well to control symptoms PAST MEDICAL HISTORY Diagnosis Date Coronary artery disease Dr. 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, 8mm Restless legs syndrome (RLS) S/P CABG x 4 2001 Statin intolerance Type 2 diabetes mellitus without retinopathy ([facility]) 03/06/2016 Unspecified asthma(493.90) mild intermittent, triggered by damp weather Uterine prolapse s/p hysterectomy ALLERGIES Asa [Salicylates], Augmentin [Amoxicillin-Pot Clavulanate], Belladonna [Belladonna Alkaloids], Benazepril, Butazolidin [Phenylbutazone], Carbidopa, Darvocet-N 100 [Propoxyphene N-Acetaminophen], Doxycycline, Guaifenesin-Sodium Citrate, Ibuprofen, Levaquin [Levofloxacin], Lopid [Gemfibrozil], Niacin, Niaspan [Niacin (Antihyperlipidemic)], Penicillins, Provigil [Modafinil], Ramipril, Qilddzj-Aly-Pdd Reductase Inhibitors, Sulfa (Sulfonamide Antibiotics), and Tramadol MEDICATIONS Current Outpatient Medications Medication Sig pregabalin (LYRICA) 150 mg capsule TAKE 1 CAPSULE BY MOUTH TWICE DAILY AT SUPPER AND BEDTIME metFORMIN (GLUCOPHAGE) 1,000 mg tablet Take 1 tablet by mouth two times a day with meals. aspirin, enteric coated (ASPIRIN, ENTERIC COATED) 81 mg EC tablet Take 1 tablet by mouth once daily. citalopram (CELEXA) 40 mg tablet Take 1 tablet by mouth once daily. fenofibrate nanocrystallized (TRICOR) 145 mg tablet Take 1 tablet by mouth once daily. losartan (COZAAR) 25 mg tablet Take 1 tablet by mouth once daily. promethazine (PHENERGAN) 25 mg tablet Take 1 tablet by mouth every 6 hours as needed for nausea/vomiting. clopidogrel (PLAVIX) 75 mg tablet Take 75 mg by mouth once daily. isosorbide mononitrate ER (IMDUR) 60 mg 24 hr tablet Take 90 mg by mouth once daily. metoprolol succinate ER (TOPROL XL) 25 mg 24 hr tablet Take 1 tablet by mouth once daily. (Patient taking differently: Take 12.5 mg by mouth once daily.) pantoprazole DR (PROTONIX) 40 mg tablet Take 1 tablet by mouth once daily. Take on empty stomach, 1/2 hr before meal. ezetimibe (ZETIA) 10 mg tablet Take 1 tablet by mouth once daily. ACCU-CHEK FASTCLIX LANCET DRUM lancets 1 Each two times a day. ACCU-CHEK SMARTVIEW TEST STRIP test strip 1 Strip two times a day. blood sugar diagnostic (BLOOD GLUCOSE TEST) test strip Test blood sugar(s) 2 times daily. Dx: Type 2 DM - Controlled E11.9 Insulin: No Lancets lancets Test blood sugar(s) 2 times daily. Dx: Type 2 DM - Controlled E11.9 Insulin: No cholecalciferol (VITAMIN D-3) 50 mcg (2,000 unit) tablet Take 2,000 Units by mouth once daily. CPAP/BIPAP/OTHER Formal mask fitting to consider smaller FFM like dreamwear due to dry eyes and supplies for bipap 13/8cmH2O DME [employer] CPAP/BIPAP/OTHER Replacement auto bipap 13/8 with PS of 5cmH2O DME [employer] CPAP/BIPAP/OTHER Settings decrease to autobipap 13/8cmH2O DME [employer] BIPAP DME change for supplies. Pt has a Resmed Auto BiPAP IPAP max 18, EPAP min 6 CM H2O, PS 5 cmH2O. mask, filters, heated humidity & tubing, [employer] supplies. LADAN G47.33 red yeast rice 600 mg tab ascorbic acid, vitamin C, (VITAMIN C) 500 mg tablet Take 500 mg by mouth daily at bedtime. nitroglycerin sublingual (NITROQUICK) 0.4 mg SL tablet Dissolve 0.4 mg under the tongue. MAGNESIUM ORAL Take 300 mg by mouth twice daily. some days takes three tablets ranolazine ER (RANEXA) 500 mg 12 hr tablet Take 1,000 mg by mouth twice daily. No current facility-administered medications for this visit. Medications and allergies reviewed by this provider. SOCIAL HISTORY Social History Tobacco Use Smoking status: Former Packs/day: 0.50 Years: 27.00 Additional pack years: 0.00 Total pack years: 13.50 Types: Cigarettes Quit date: 1997 Years since quittin.3 Smokeless tobacco: Never Vaping Use Vaping Use: Never used Substance Use Topics Alcohol use: Yes Comment: 2-3 drinks per month Drug use: No REVIEW OF SYSTEMS All other reviewed and negative other than HPI. OBJECTIVE: BP 122/78 Pulse (!) 54 Resp 16 Wt 93.6 kg (206 lb 6.4 oz) SpO2 94% BMI 33.33 kg/m . Vitalsigns reviewed by this provider. APPEARANCE Well appearing, alert, in no acute distress, well-hydrated, well nourished. EYES conjunctiva and sclera normal. EARS External ears normal, canals clear HEART Bradycardia no murmurs, no gallops, no JVD appreciated LUNG clear to auscultation. No wheezes, rhonchi or rales EXTREMITIES Extremities normal, No deformities, No skin discoloration, and No edema SKIN Skin color, texture, turgor normal, no suspicious rashes or lesions to exposed skin Latest Ref Rng 08/14/2023 Protein, Total 6.3 - 8.0 g/dL 6.2 (L) Albumin 3.9 - 4.9 g/dL 4.1 Calcium 8.5 - 10.2 mg/dL 9.1 Bilirubin, Total 0.2 - 1.3 mg/dL 0.2 Alkaline Phosphatase 34 - 123 U/L 32 (L) AST 13 - 35 U/L 16 ALT 7 - 38 U/L 10 Glucose 74 - 99 mg/dL 135 (H) BUN 7 - 21 mg/dL 23 (H) Creatinine 0.58 - 0.96 mg/dL 1.25 (H) Sodium 136 - 144 mmol/L 137 Potassium 3.7 - 5.1 mmol/L 4.2 Chloride 97 - 105 mmol/L 101 CO2 22 - 30 mmol/L 28 Anion Gap 9 - 18 mmol/L 8 (L) eGFR >=60 mL/min/1.73m 47 (L) Legend: (L) Low (H) High Urine Albumin:Creatinine Ratio Never done Dilated Retinal Exam due on 03/06/2017 Advance Directive Discussion Never done Behavioral Health Screening Never done Pneumococcal Vaccine: 65+(3 of 3 - PPSV23 or PCV20) due on 09/15/2023 HbA1C due on 10/29/2023 Mammogram Screening due on 12/13/2023 DTaP,Tdap,Td Vaccine(2 - Tdap) due on 12/04/2023 Colorectal Cancer Screening due on 12/04/2023 Shingrix Vaccine(1 of 2) due on 12/04/2023 Hepatitis C Screening due on 04/10/2024 Covid-19 Vaccine(3 - 2023-24 season) due on 04/10/2024 Diabetic Foot Exam due on 02/21/2024 LDL Cholesterol due on 04/30/2024 Annual PCP Team Chronic Disease Visit due on 10/29/2024 BP Controlled (<130/80) due on 10/29/2024 Bone Density Screening Completed Influenza Vaccine Completed RSV Vaccine Completed ASSESSMENT/PLAN: 1. Type 2 diabetes mellitus without retinopathy (HCC) - ICD9: 250.00, ICD10: E11.9 (primary diagnosis) - Control undetermined, due for labs - Continue current medications - Counseled on healthy diet and regular exercise - Discussed need for and benefit of weight loss. BMI 33.33 kg/(m^2) - Follow up in 6 months, sooner should any other issues arise. - HEMOGLOBIN A1C - COMPLETE BLOOD COUNT AND DIFFERENTIAL 2. Essential hypertension - ICD9: 401.9, ICD10: I10 - Controlled - Continue current medications - Recommend home blood pressure monitoring, to bring results to next visit - Encouraged sodium restriction, DASH or Mediterranean diet - Recommend regular aerobic exercise - Discussed need for and benefit of weight loss. BMI 33.33 kg/(m^2) - Follow up in 6 months for hypertension visit - COMPREHENSIVE METABOLIC PANEL 3. Encounter for screening mammogram for breast cancer - ICD9: V76.12, ICD10: Z12.31 - PAULINA SCREENING 4. Stage 3a chronic kidney disease (HCC) - ICD9: 585.3, ICD10: N18.31 - eGFR: 47 Stable - Counseled on avoiding NSAIDs, adequate hydration - Counseled on low sodium diet - ACEi/ARB prescribed: Losartan 5. 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) - ICD9: 250.60, 357.2, ICD10: E11.42 - plan as in #1 6. Coronary artery disease of [place] artery of [place] heart with stable angina pectoris (HCC) - ICD9: 414.01, 413.9, ICD10: I25.118 - stable on current regime - METOPROLOL SUCCINATE ER 25 MG TABLET,EXTENDED RELEASE 24 HR - follow-up with cardiology as scheduled 7. LADAN treated with BiPAP - ICD9: 327.23, ICD10: G47.33 - continue nightly use - follow-up with sleep medicine as scheduled 8. Mixed hyperlipidemia - ICD9: 272.2, ICD10: E78.2 - Controlled - Continue current medications - Counseled on healthy diet and regular exercise - Discussed need for and benefit of weight loss. BMI 33.33 kg/(m^2) - Follow up in 6 months, sooner should any other issues arise. 9. S/P CABG x 4 - ICD9: V45.81, ICD10: Z95.1 - plan as in #6 10. Gastroesophageal reflux disease without esophagitis - ICD9: 530.81, ICD10: K21.9 - stable on current regime Anay Lawrence APRN.JUANITA Prescription instructions reviewed with patient as applicable. Patient advised if symptoms do not improve or if symptoms worsen sooner, to contact their primary care physician. Potential red flag symptoms discussed with the patient. Reviewed appropriate action plan to take if red flag symptoms occur. Patient agreeable to treatment plan. Medical Decision Making: Problems: Moderate: 2+ stable chronic illnesses Data: Unique test(s) ordered: 3+ Medical Decision Making Level: 4 - Moderate documented in this encounterMari[facility]05-[facility]24 Telephone encounter Note * Telephone Encounter - Bernice Singh MA - 10/25/2023 8:48 AM EDT Pt advised via ScreenTag that we do not accept refill requests from pharmacies and that if she needs refills to notify office. Bernice Singh MA [facility]05-10-2024 Miscellaneous Notes* Telephone Encounter - Bernice Singh MA - 10/25/2023 8:48 AM EDT Pt advised via Bujbut that we do not accept refill requests from pharmacies and that if she needs refills to notify office. Bernice Singh MA documented in this encounterMarietta [facility]05-09-2024 History of Present illness Narrative* Anne Bay RN - 10/24/2023 10:59 AM EDT ACM JOSE RAMON RN Patient identified by name and date of . Reason for review or outreach: Chart Review Jose Ramon Priority Emergency Department Utilization REQUESTED ACTION/FYI: 5 ED visits and 3 admits in past year: 01-21-23 ED for suturing after fall/ laceration 04-27-23 ED/ unsure if admitted (unable to find documentation) to outside facility, [facility] (hs CABG 2001) 04-29-23 ED/ admit w/ NSTEMI 05-18-23 ED, CP after lifting boxes 06-26-23 ED/ admit for UTI, [place] Appropriate use of ED Utilization in past 6 months: # Occurrences Date Last Occurrence Hospital Admission 2 06-26-23 Hospital Observation 0 na ED 5 06-26-23 SNF / Acute Rehab / LTAC 0 na ED DIAGNOSES/REASON(S) FOR ED USE: laceration needing suturing, [place], [place] OTHER FINDINGS/SUMMARY: appropriate use of ED Patient Attributed To: E Payer: Beverly BATISTA Action Taken: No action needed Contact made with patient: No, Chart review only. Signature: Anne Bay RN documented in this encounterMarietta [facility] Clinic04-24-2024 Telephone encounter Note * Telephone Encounter - Cinthia Mcguire RN - 10/09/2023 10:23 AM EDT VINOD: 08/21/23 In Person - 08/21/23 Sandy SON - Sandy F/U: 12/25/23 Shira VV Refill Request sent to [facility] refill combs IMPRESSION: The patient is a 68 year old who presents today for evaluation of LADAN and RLS. LADAN - Continue Bilevel PAP at 13/8 cmH2O. - Remember to clean your mask and equipment regularly, as directed. - You should be eligible for new supplies approximately every 3-6 months, depending on your insurance coverage. Contact your Durable Medical Equipment (DME) company for new supplies as needed. - Follow up in 4 months .Consult to behavior sleep medicine specialist for individual or group cognitive behavioral therapyfor insomnia ( CBTi ). - Role of weight discussed. - We reviewed the importance of avoiding driving or operating heavy machinery when drowsy, and patient expressed his understanding of this important point. RLS - RLS symptoms might be worsened by ongoing Kidney disease - Continue Lyrica 150 mg twice a day for treatment of RLS. - Will recheck iron panel when chronic issues are more under control. - Will discuss increasing lyrica when other chronic issues are well controlled I discussed my impression with the patient and patient agreed with the plan. Thank you for involving Sleep Medicine in this patient's care. It was a pleasure to see Elsa Pugh today. Discussed with staff physician, Dr Sandy Hartley MD Sleep Medicine Fellow Attending Note I evaluated the patient and personally participated in the nicholson components. I agree with Dr. Dang Hartley's findings and plan as documented and have discussed the case and management of the patient's care with the fellow. Patient with LADAN on BiPAP, RLS on lyrica, insomnia. Given her recent medical events, AR, kidney disease, she would like to not make any changes at this time. Encourage regular usage of BiPAP. Return in 4 months with our sleep MARTHA, earlier as needed. Signature: Rita Delgado MD [facility]04-24-2024 Miscellaneous Notes* Telephone Encounter - Cinthia Mcguire RN - 10/09/2023 10:23 AM EDT VINOD: 08/21/23 In Person - 08/21/23 Sandy Delgado F/U: 12/25/23 [facility] Refill Request sent to [facility] IMPRESSION: The patient is a 68 year old who presents today for evaluation of LADAN and RLS. LADAN - Continue Bilevel PAP at 13/8 cmH2O. - Remember to clean your mask and equipment regularly, as directed. - You should be eligible for new supplies approximately every 3-6 months, depending on your insurance coverage. Contact your [email or web address] company for new supplies as needed. - Follow up in 4 months .Consult to behavior sleep medicine specialist for individual or group cognitive behavioral therapyfor insomnia ( CBTi ). - Role of weight discussed. - We reviewed the importance of avoiding driving or operating heavy machinery when drowsy, and patient expressed his understanding of this important point. RLS - RLS symptoms might be worsened by ongoing Kidney disease - Continue Lyrica 150 mg twice a day for treatment of RLS. - Will recheck iron panel when chronic issues are more under control. - Will discuss increasing lyrica when other chronic issues are well controlled I discussed my impression with the patient and patient agreed with the plan. Thank you for involving Sleep Medicine in this patient's care. It was a pleasure to see Elsa Pugh today. Discussed with staff physician, Dr Sandy Hartley MD Sleep Medicine Fellow Attending Note I evaluated the patient and personally participated in the nicholson components. I agree with Dr. Dang Hartley's findings and plan as documented and have discussed the case and management of the patient's care with the fellow. Patient with LADAN on BiPAP, RLS on lyrica, insomnia. Given her recent medical events, AR, kidney disease, she would like to not make any changes at this time. Encourage regular usage of BiPAP. Return in 4 months with our sleep MARTHA, earlier as needed. Signature: Rita Delgado MD documented in this encounterMarietta [facility] Clinic04-22-2024 History of Present illness Narrative* Valerie Rizvi RT(R) - 10/07/2023 3:50 PM EDT Radiology Service Progress Note PATIENT NAME: Elsa Pugh DATE OF SERVICE: October 07, 2023 TIME: 3:45 PM PATIENT IDENTITY VERIFICATION COMPLETED USING TWO (2) IDENTIFIERS: Name and Date of confirmedby patient verbally. FALL SCREENING: Has the patient had 2 falls in the last year or 1 fall with injury or currently using an Ambulatory Assistive Device (Walker, Cane, Wheelchair, Crutches, etc.)? No PATIENT GENDER DATA: Female. status: : No status: NO. PATIENT RELEVANT IMPLANT DATA REVIEWED: Not Applicable PATIENT PRESENTS WITH AN IMPLANTABLE OR ATTACHED BOARDING MACHINE OPERATOR: No RADIOLOGY DEPARTMENT: General X-ray: Exam(s) Completed: Lower Extremity X- Ray(s): Knee, AP / Lat / Tunne / Merchant Right and Wt. Bearing PERIPHERAL IV DATA: Not applicable SIGNED BY: RT Michael(R) October 07, 2023 3:45 PM documented in this encounterMarietta [facility] Clinic04-22-2024 History of Present illness Narrative* Gabriela Linda MD - 10/07/2023 3:13 PM EDT Chief Complaint Patient presents with: Knee Pain: Right - fell Saturday and patient thinks she tore meniscus again. HPI Elsa Pugh is a 68 year old female who presents here today for Above Complaints. Patient states that she was working in the flower garden 2 days ago when she leaned forward and lost her balance. Fell forward on her right knee and right elbow in the grass. Did not hit her head or have LOC. Instantly developed pain and swelling over the right knee. Was able to get up on her own and go into the house and ice her knee. Pain located over patella, medial and posterior aspect of theknee. Described as constant throbbing, currently 9/10, with radiation down the right lateral calf. Exacerbated with standing, sitting too far back on a chair, walking. Treating with ice, tylenol, andknee brace without improvement. Denies fever/chills, locking, catching, giving out. Swelling and pain are both slowly improving. No pain in the left elbow or upper arm. Past medical history, appointments, medications, allergies reviewed. Previous Medical History PAST MEDICAL HISTORY Diagnosis Date Coronary artery disease Dr. 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, 8mm Restless legs syndrome (RLS) S/P CABG x 4 2001 Statin intolerance Type 2 diabetes mellitus without retinopathy (HCC) 03/06/2016 Unspecified asthma(493.90) mild intermittent, triggered by damp weather Uterine prolapse s/p hysterectomy Previous Surgical History PAST SURGICAL HISTORY Procedure Laterality Date COLONOSCOPY FLX DX W/COLLJ SPEC WHEN PFRMD 10/16/2003 Colonoscopy ESOPHAGOGASTRODUODENOSCOPY TRANSORAL DIAGNOSTIC 10/16/2003 EGD LAPS ABD PRTM&OMENTUM DX W/WO SPEC BR/WA SPX Laparoscopy PAST SURGICAL HISTORY OF 01/15/2015 4 new stents were placed PAST SURGICAL HISTORY OF 17 stents PAST SURGICAL HISTORY OF 2001 CABGx4 PAST SURGICAL HISTORY OF 04/2023 PCI of SVG to RPDA with 2 LENA implanted TONSILLECTOMY PRIMARY/SECONDARY <AGE 11 Tonsillectomy TOTAL ABDOMINAL HYSTERECT W/WO RMVL TUBE OVARY Hysterectomy, ZAKI Family History FAMILY HISTORY Problem Relation Age of Onset other (colon polyps) Father Diabetes Father Heart disease Father Diabetes Sister other (rheumatoid arthritis) Sister Anxiety disorder Sister Heart Attack Sister No Known Problems Maternal Grandmother No Known Problems Maternal Grandfather No Known Problems Paternal Grandmother No Known Problems Paternal Grandfather Drug abuse Son No Known Problems Daughter Patient Allergies ALLERGIES Allergen Reactions Asa [Salicylates] Vomiting Augmentin [Amoxicil* GI Upset Belladonna [Bellado* Intolerance GI upset Benazepril Cough Sep 2005 Butazolidin [Phenyl* Unknown Carbidopa Darvocet-N 100 [Pro* Intolerance HEADACHE Doxycycline Other: See Comments Patient ended up in ER with tongue and throat swelling- allergy not ruled out Guaifenesin-Sodium * Ibuprofen Rash Levaquin [Levofloxa* Other: See Comments Hallucinations anxiety numbness tingling Lopid [Gemfibrozil] Niacin Niaspan [Niacin (An* Penicillins Hives Provigil [Modafinil] Mental Status Change hallucinations Ramipril Unknown Avrpdub-Yqz-Hgn Red* Myalgia Sulfa (Sulfonamide * Tramadol Other: See Comments stroke like symptoms Current Medications Current Outpatient Medications on File Prior to Visit Medication Sig metFORMIN (GLUCOPHAGE) 1,000 mg tablet Take 1 tablet by mouth two times a day with meals. aspirin, enteric coated (ASPIRIN, ENTERIC COATED) 81 mg EC tablet Take 1 tablet by mouth once daily. pregabalin (LYRICA) 150 mg capsule TAKE 1 CAPSULE BY MOUTH TWICE DAILY AT SUPPER AND BEDTIME citalopram (CELEXA) 40 mg tablet Take 1 tablet by mouth once daily. fenofibrate nanocrystallized (TRICOR) 145 mg tablet Take 1 tablet by mouth once daily. promethazine (PHENERGAN) 25 mg tablet Take 1 tablet by mouth every 6 hours as needed for nausea/vomiting. clopidogrel (PLAVIX) 75 mg tablet Take 75 mg by mouth once daily. isosorbide mononitrate ER (IMDUR) 60 mg 24 hr tablet Take 90 mg by mouth once daily. metoprolol succinate ER (TOPROL XL) 25 mg 24 hr tablet Take 1 tablet by mouth once daily. (Patient taking differently: Take 12.5 mg by mouth once daily.) pantoprazole DR (PROTONIX) 40 mg tablet Take 1 tablet by mouth once daily. Take on empty stomach, 1/2 hr before meal. ezetimibe (ZETIA) 10 mg tablet Take 1 tablet by mouth once daily. blood sugar diagnostic (BLOOD GLUCOSE TEST) test strip Test blood sugar(s) 2 times daily. Dx: Type 2 DM - Controlled E11.9 Insulin: No Lancets lancets Test blood sugar(s) 2 times daily. Dx: Type 2 DM - Controlled E11.9 Insulin: No cholecalciferol (VITAMIN D-3) 50 mcg (2,000 unit) tablet Take 2,000 Units by mouth once daily. CPAP/BIPAP/OTHER Formal mask fitting to consider smaller FFM like dreamwear due to dry eyes and supplies for bipap 13/8cmH2O DME [employer] CPAP/BIPAP/OTHER Replacement auto bipap 13/8 with PS of 5cmH2O DME [employer] CPAP/BIPAP/OTHER Settings decrease to autobipap 13/8cmH2O DME [employer] BIPAP DME change for supplies. Pt has a [employer] Auto BiPAP IPAP max 18, EPAP min 6 CM H2O, PS 5 cmH2O. mask, filters, heated humidity & tubing, [employer] supplies. LADAN G47.33 red yeast rice 600 mg tab ascorbic acid, vitamin C, (VITAMIN C) 500 mg tablet Take 500 mg by mouth daily at bedtime. nitroglycerin sublingual (NITROQUICK) 0.4 mg SL tablet Dissolve 0.4 mg under the tongue. MAGNESIUM ORAL Take 300 mg by mouth twice daily. some days takes three tablets ranolazine ER (RANEXA) 500 mg 12 hr tablet Take 1,000 mg by mouth twice daily. losartan (COZAAR) 25 mg tablet Take 1 tablet by mouth once daily. ACCU-CHEK FASTCLIX LANCET DRUM lancets 1 Each two times a day. ACCU-CHEK SMARTVIEW TEST STRIP test strip 1 Strip two times a day. No current facility-administered medications on file prior to visit. Social History Social History Tobacco Use Smoking status: Former Packs/day: 0.50 Years: 27.00 Additional pack years: 0.00 Total pack years: 13.50 Types: Cigarettes Quit date: 1997 Years since quittin.3 Smokeless tobacco: Never Vaping Use Vaping Use: Never used Substance Use Topics Alcohol use: Yes Comment: 2-3 drinks per month Drug use: No Review of Symptoms REVIEW OF SYSTEMS See HPI EXAM: BP 106/60 Pulse (!) 50 Resp 16 Wt 92.7 kg (204 lb 6.4 oz) SpO2 99% BMI 33.01 kg/m General Appearance: Well appearing, alert, in no acute distress, well-hydrated, well nourished.. Skin: faint bruising over right patella KNEE:Location: Right Redness: No. Warmth: No. Crepitus: Yes. Effusion: Yes. Joint line tenderness: Yes. Lateral tenderness: No. Medial tenderness: Yes. Drawer sign negative: No. Medial or lateral laxity: No. Josey's sign: equivocal due to pain Musculoskeletal: no pain or swelling over right elbow, upper arm, forearm. Health Maintenance List Urine Albumin:Creatinine Ratio Never done BP Controlled (<130/80) Never done Dilated Retinal Exam due on 03/06/2017 Advance Directive Discussion Never done Behavioral Health Screening Never done Pneumococcal Vaccine: 65+(3 of 3 - PPSV23 or PCV20) due on 09/15/2023 Mammogram Screening due on 12/13/2023 DTaP,Tdap,Td Vaccine(2 - Tdap) due on 12/04/2023 Colorectal Cancer Screening due on 12/04/2023 Shingrix Vaccine(1 of 2) due on 12/04/2023 Hepatitis C Screening due on 04/10/2024 Covid-19 Vaccine(3 - 2022- season) due on 04/10/2024 HbA1C due on 10/29/2023 Diabetic Foot Exam due on 02/21/2024 LDL Cholesterol due on 04/30/2024 Annual PCP Team Chronic Disease Visit due on 07/31/2024 Bone Density Screening Completed Influenza Vaccine Completed RSV Vaccine Completed ASSESSMENT/PLAN: 1. Acute pain of right knee - ICD9: 719.46, ICD10: M25.561 (primary diagnosis) Fall at home with right knee pain and swelling. Normal ROM, but with pain. Equivocal testing for meniscus tear due to pain on palpation. Will start workup with xray on her left knee. Discussed RICE therapy and tylenol for pain. Consider PT vs MRI if pain and swelling does not continue to improve orif xray abnormal. - XR KNEE GENERAL 4V AP BOTH/PA BOTH/LAT/MERC RIGHT 2. Swelling of joint, knee, right - ICD9: 719.06, ICD10: M25.461 See above. - XR KNEE GENERAL 4V AP BOTH/PA BOTH/LAT/MERC RIGHT 3. Fall in home, initial encounter - ICD9: E888.9, E849.0, ICD10: W19.XXXA, Y92.009 Fall without use of her cane at home. Discussed use of cane and walker when ambulating to prevent falls. Gabriela Linda MD documented in this encounterM[facility]24 Miscellaneous Notes* Telephone Encounter - Elvia Middleton LPN - 09/09/2023 9:43 AM EDT Patient has been identified by name and date of : Yes Patient phones for refill(s): Requested Prescriptions Pending Prescriptions Disp Refills metFORMIN (GLUCOPHAGE) 1,000 mg tablet 180 tablet 1 Sig: Take 1 tablet by mouth two times a day with meals. aspirin, enteric coated (ASPIRIN, ENTERIC COATED) 81 mg EC tablet Sig: Take 1 tablet by mouth once daily. Date of last office visit in primary care: 07/31/2023 Date of next office visit in primary care: 10/30/2023 Please advise. Thank you. Elvia Middleton LPN. documented in this encounterM[facility]03-06-2024 Instructions* Patient Instructions* Dang Hartley MD - 08/21/2023 10:25 AM EST Sleep psychologist: Scheduling Information: Please call [phone] to make an appointment. PAP Supply Guidelines Below are the guidelines for reordering your supplies. You will be responsible for your deductible,co-payments, and out of pocket expenses. Item Medicare & Commercial Insurance Medicaid & HCAP Nasal Mask (no headgear) 1 every 3 months 1 per year Nasal Mask Cushion 1 every month 2 per year Full Face Mask (no headgear) 1 every 3 months 1 per year Full Face Mask Cushion 1 every month *Self-Pay Nasal Pillows 2 every month 2 per year Headgear 1 every 6 months 1 per year Chin Strap 1 every 6 months 2 per year Tubing 1 every 3 months 1 per year Filters: Reusable 1 every 6 months 4 per year Filters: Disposable 2 every month 1 per month Humidifier Chamber(disposable) 1 every 6 months *Self-Pay documented in this encounterM[facility]03-06-2024 History of Present illness Narrative* Rita Deglado MD - 08/21/2023 9:50 AM EST Images from the original note were not included. [facility] Follow up/ Established patient visit Elsa Pugh is a 68 year old female here for follow-up for LADAN and RLS. Interval History Patient was last seen on: 02/13/2023 and the plan at that visit was to Continue BIPAP, Continue lyrica and get iron panel. Today, she reports she had a heart attack, mechanical fall, and was diagnosed with chronic kidney disease within the last year. She wakes up at 2 am to use the bathroom about 2-3 times/week and is unable to fall back asleep. SLEEP APNEA Sleep apnea type : LADAN, Most Recent Apnea-Hypopnea Index (AHI): 17.6 Treatment : PAP therapy DME: [facility] PAP History: Uses Bilevel PAP for 6 hours per night, 6 nights per week. Current PAP settin/5 cm H2O with PS 5 Difficulties with Bilevel PAP: None Reviewed objective PAP compliance data: See below Mask type: nasal pillow interface Mask issues: No Uses chin strap: No Uses ramp function: Yes, Uses humidity: Yes RLS Current treatment : Medication(s) and timing : lyrica 150 mg at supper and at bedtime Status : same Time of day symptoms begin : 2-2:30 pm Time of day symptoms are worst : 10 pm Time of day when symptom-free : in the morning . [place] Sleepiness Scale 08/19/2023 06/12/2023 02/06/2023 Sitting and reading 2 2 2 Watching TV 2 2 2 Sitting inactive in a public place 2 2 2 As a passenger in a car for an hour without a break 2 2 2 Lying down to rest in the afternoon when circumstances permit 3 3 3 Sitting quietly after a lunch without alcohol 1 1 2 Sitting and talking to someone 1 2 2 In a car, while stopped for a few minutes in traffic 1 1 1 Score 14 (present daytime sleepiness) 15 (present daytime sleepiness) 16 (severe daytime sleepiness) SLEEP HYGIENE QUESTIONS: Bedtime : 10 pm Wake up Time : 2-4 am Time it takes to fall sleep : 15 minutes Number of times patient wakes up per night : 1 Reason (s) why patient wakes up during the night : to use the bathroom or RLS does take naps. Frequency: daily, Duration: 2 hours. Naps are refreshing. Time of naps: 2:30 pm Estimated total sleep time ( in a 24 hour period of time) : 8 Refreshing sleep: No PATIENT-ENTERED QUESTIONNAIRE SLEEP SCORES Sleep Questions 08/19/2023 Reason for visit: Excessive daytime sleepiness, Restless Legs Syndrome, Abnormal sleep/wake timing Average hours slept in 24 hours: - Average hours of CPAP per night: 5 Percent of nights CPAP used at least 4 hours: - Accidents or near accidents due to drowsy drivin [place] Sleepiness Scale 02/06/2023 06/12/2023 08/19/2023 Score 16 (severe daytime sleepiness) 15 (present daytime sleepiness) 14 (present daytime sleepiness) Insomnia Severity Index 02/09/2022 02/06/2023 Score 10 10 Restless Leg Syndrome 02/06/2023 06/12/2023 08/19/2023 Score Incomplete 21 19 PHQ-9 04/04/2023 06/12/2023 08/20/2023 Score 2 10 8 ROS A 10-point review of systems was conducted and was positive for the points noted above, otherwise negative ALLERGIES . ALLERGIES Allergen Reactions Asa [Salicylates] Vomiting Augmentin [Amoxicil* GI Upset Belladonna [Bellado* Intolerance GI upset Benazepril Cough Sep 2005 Butazolidin [Phenyl* Unknown Carbidopa Darvocet-N 100 [Pro* Intolerance HEADACHE Doxycycline Other: See Comments Patient ended up in ER with tongue and throat swelling- allergy not ruled out Guaifenesin-Sodium * Ibuprofen Rash Levaquin [Levofloxa* Other: See Comments Hallucinations anxiety numbness tingling Lopid [Gemfibrozil] Niacin Niaspan [Niacin (An* Penicillins Hives Provigil [Modafinil] Mental Status Change hallucinations Ramipril Unknown Emoarys-Cde-Umo Red* Myalgia Sulfa (Sulfonamide * Tramadol Other: See Comments stroke like symptoms CURRENT MEDICATIONS: pregabalin (LYRICA) 150 mg capsule TAKE 1 CAPSULE BY MOUTH TWICE DAILY AT SUPPER AND BEDTIME fenofibrate nanocrystallized (TRICOR) 145 mg tablet Take 1 tablet by mouth once daily. losartan (COZAAR) 25 mg tablet Take 1 tablet by mouth once daily. promethazine (PHENERGAN) 25 mg tablet Take 1 tablet by mouth every 6 hours as needed for nausea/vomiting. clopidogrel (PLAVIX) 75 mg tablet Take 75 mg by mouth once daily. isosorbide mononitrate ER (IMDUR) 60 mg 24 hr tablet Take 90 mg by mouth once daily. aspirin, enteric coated (ASPIRIN, ENTERIC COATED) 81 mg EC tablet Take 1 tablet by mouth once daily. metoprolol succinate ER (TOPROL XL) 25 mg 24 hr tablet Take 1 tablet by mouth once daily. (Patient taking differently: Take 12.5 mg by mouth once daily.) pantoprazole DR (PROTONIX) 40 mg tablet Take 1 tablet by mouth once daily. Take on empty stomach, 1/2 hr before meal. ezetimibe (ZETIA) 10 mg tablet Take 1 tablet by mouth once daily. ACCU-CHEK FASTCLIX LANCET DRUM lancets 1 Each two times a day. ACCU-CHEK SMARTVIEW TEST STRIP test strip 1 Strip two times a day. blood sugar diagnostic (BLOOD GLUCOSE TEST) test strip Test blood sugar(s) 2 times daily. Dx: Type 2 DM - Controlled E11.9 Insulin: No Lancets lancets Test blood sugar(s) 2 times daily. Dx: Type 2 DM - Controlled E11.9 Insulin: No metFORMIN (GLUCOPHAGE) 1,000 mg tablet Take 1 tablet by mouth twice daily with meals. cholecalciferol (VITAMIN D-3) 50 mcg (2,000 unit) tablet Take 2,000 Units by mouth once daily. CPAP/BIPAP/OTHER Formal mask fitting to consider smaller FFM like dreamwear due to dry eyes and supplies for bipap 13/8cmH2O DME [facility] CPAP/BIPAP/OTHER Replacement auto bipap 13/8 with PS of 5cmH2O DME [employer] CPAP/BIPAP/OTHER Settings decrease to autobipap 13/8cmH2O DME [employer] BIPAP DME change for supplies. Pt has a Resmed Auto BiPAP IPAP max 18, EPAP min 6 CM H2O, PS 5 cmH2O. mask, filters, heated humidity & tubing, [employer] supplies. LADAN G47.33 red yeast rice 600 mg tab ascorbic acid, vitamin C, (VITAMIN C) 500 mg tablet Take 500 mg by mouth daily at bedtime. nitroglycerin sublingual (NITROQUICK) 0.4 mg SL tablet Dissolve 0.4 mg under the tongue. MAGNESIUM ORAL Take 300 mg by mouth twice daily. some days takes three tablets citalopram 40 mg tablet Take 1 tablet by mouth once daily. ranolazine ER (RANEXA) 500 mg 12 hr tablet Take 1,000 mg by mouth twice daily. Prior RLS Medications (last 20 years) Some values may be hidden. Unless noted otherwise, only the newest values recorded on each date aredisplayed. RLS Medications carbidopa-levodopa (SINEMET) 10-100 mg per tablet Dose: 1 tablet 2 TIMES DAILY Starting date: Ending date: 07/13/2020 (Discontinued) MIRAPEX 0.25 MG TAB Dose: Take one(1) tablet three times daily. Starting date: 09/20/2005 Ending date: 03/28/2006 (Discontinued) MIRAPEX 0.25 MG TAB Dose: Take one(1) tablet three times daily. Starting date: 03/28/2006 Ending date: 03/29/2006 (Discontinued) MIRAPEX 0.25 MG TAB Dose: Take one(1) tablet three times daily. Starting date: 03/29/2006 Ending date: 01/05/2009 (Discontinued) pramipexole 1 mg tablet Dose: 1 mg 3 TIMES DAILY Starting date: Ending date: 09/14/2015 (Discontinued) pramipexole di-hcl(MIRAPEX 0.5 MG TAB) Dose: 1 tablet in am 2 tablets in pm Starting date: 01/05/2009 Ending date: 02/10/2014 (Discontinued) rotigotine (NEUPRO) 1 mg/24 hour patch Dose: 1 Patch DAILY Starting date: 09/30/2015 Ending date: 04/17/2016 (Discontinued) rotigotine (NEUPRO) 2 mg/24 hour patch Dose: 2 mg DAILY For RLS. Starting date: 10/24/2015 Ending date: 04/17/2016 (Discontinued) PHYSICAL EXAMINATION: General appearance: Not acutely ill. Mental status: Alert and orineted. Able to provide own history Neck: no visible goiter Skin: No visible rashes on exposed skin Eyes: conjugate, no obvious ptosis ENT: Nasal congestion Absent Nasal valve incompetence: Absent. Posterior airspace: Diana tongue position: 2, Retrognathia: Absent Overbite: Absent. High arched palate: Absent . Tongue scalloping/ridging: Absent Uvula: midline CVS: Regular S1 and S2, Lungs: CTA. Normal WOB Extremities: no edema Neuro: No focal deficits observed, no tremors Diagnosis G47.33 Obstructive sleep apnea (primary encounter diagnosis) G25.81 RLS (restless legs syndrome) IMPRESSION: The patient is a 68 year old who presents today for evaluation of LADAN and RLS. LADAN - Continue Bilevel PAP at 13/8 cmH2O. - Remember to clean your mask and equipment regularly, as directed. - You should be eligible for new supplies approximately every 3-6 months, depending on your insurance coverage. Contact your [email or web address] company for new supplies as needed. - Follow up in 4 months .Consult to behavior sleep medicine specialist for individual or group cognitive behavioral therapyfor insomnia ( CBTi ). - Role of weight discussed. - We reviewed the importance of avoiding driving or operating heavy machinery when drowsy, and patient expressed his understanding of this important point. RLS - RLS symptoms might be worsened by ongoing Kidney disease - Continue Lyrica 150 mg twice a day for treatment of RLS. - Will recheck iron panel when chronic issues are more under control. - Will discuss increasing lyrica when other chronic issues are well controlled I discussed my impression with the patient and patient agreed with the plan. Thank you for involving Sleep Medicine in this patient's care. It was a pleasure to see Elsa Pugh today. Discussed with staff physician, Dr Sandy Hartley MD Sleep Medicine Fellow Attending Note I evaluated the patient and personally participated in the nicholson components. I agree with Dr. Dang Hartley's findings and plan as documented and have discussed the case and management of the patient's care with the fellow. Patient with LADAN on BiPAP, RLS on lyrica, insomnia. Given her recent medical events, AR, kidney disease, she would like to not make any changes at this time. Encourage regular usage of BiPAP. Return in 4 months with our sleep MARTHA, earlier as needed. Signature: Rita Delgado MD Date: 08/21/2023 Time: 11:21 AM I spent a total of 20 minutes on the date of the service which included preparing to see the patient, [id number] patient care, completing clinical documentation, counseling and educating the patient/family/caregiver, communicating with other HCPs (not separately reported), and independently interpreting results (not separately reported). documented in this encounterM[facility]03-04-2024 Miscellaneous Notes* Telephone Encounter - Bernice Singh Ma - 08/19/2023 12:06 PM EST Pt notified of results via ScreenTag. Bernice Singh Ma * Telephone Encounter - Bernice Singh Ma - 08/19/2023 12:05 PM EST ----- Message from Gabriela Linda MD sent at 08/19/2023 12:02 PM EST ----- Kidney ultrasound shows normal sized kidneys without fluid backup. 8mm benign appearing lesion in the left kidney noted incidentally. This would not be contributing to her kidney function. Consider repeat US in 6-12 months to monitor for stability. documented in this encounterM[facility]03-04-2024 Miscellaneous Notes* Telephone Encounter - Bernice Singh Ma - 08/19/2023 9:25 AM EST Detailed message left on pt identified VM. Bernice Singh Ma * Telephone Encounter - Gabriela Linda MD - 08/19/2023 8:00 AM EST I would have her continue with their fluid restriction recommendations. * Telephone Encounter - Yaz Marquez RN - 08/16/2023 12:02 PM EST Pt returned call and given provider's message below with verbalized understanding. Pt agreeable. Pt reports her business lawyer told her to drink 48-50 oz water a day. He told her this about a year ago, and she's been doing that. Asking if pcp wants her to get more than that? Reports she is taking lasix every other day and still has swelling in her ankles. Please advise pt. Transferred pt to pss. * Telephone Encounter - Yaz Marquez RN - 08/15/2023 2:06 PM EST Left vm for patient to return call to nurse for provider's message. * Telephone Encounter - Gabriela Linda MD - 08/15/2023 10:33 AM EST Worsening kidney function with repeat labs. Recommend repeating UA with history of protein in her urine and will obtain kidney ultrasound. Recommend low sodium diet <2,000 mg per day, avoidance of NSAIDs, and increased water intake. documented in this encounterMari[facility]03-01-2024 History of Present illness Narrative* Diya Marlow TECHNOLOGIST - 08/16/2023 2:00 PM EST Radiology Service Progress Note PATIENT NAME: Elsa Pugh DATE OF SERVICE: August 16, 2023 TIME: 2:22 PM PATIENT IDENTITY VERIFICATION COMPLETED USING TWO (2) IDENTIFIERS: Name and Date of confirmedby patient verbally. FALL SCREENING: Has the patient had 2 falls in the last year or 1 fall with injury or currently using an Ambulatory Assistive Device (Walker, Cane, Wheelchair, Crutches, etc.)? No PATIENT GENDER DATA: Female. status: : No status: NO. PATIENT RELEVANT IMPLANT DATA REVIEWED: Yes PATIENT PRESENTS WITH AN IMPLANTABLE OR ATTACHED BOARDING MACHINE OPERATOR: No RADIOLOGY DEPARTMENT: Ultrasound PERIPHERAL IV DATA: Not applicable SIGNED BY: TECHNOLOGIST Phil August 16, 2023 2:22 PM documented in this encounterMarietta [facility]03-01-2024 Miscellaneous Notes* Telephone Encounter - Tami Jacobs LPN - 08/16/2023 1:54 PM EST Phoned patient and reviewed results and recommendations with her. Patient voiced understanding. * Telephone Encounter - Tami Jacobs LPN - 08/16/2023 1:52 PM EST ----- Message from Gabriela Linda MD sent at 08/16/2023 8:42 AM EST ----- UA positive for WBC without nitrites or RBCs. Urine culture initiated and is pending to rule out infection. Recommend pushing PO fluids and will call with results. documented in this encounterM[facility]02-29-2024 Miscellaneous Notes* Telephone Encounter - Bonilla Camp LPN - 08/15/2023 9:21 AM EST Images from the original note were not included. documented in this encounterMari[facility]02-19-2024 Miscellaneous Notes* Telephone Encounter - Elizabeth Nguyen RN - 08/05/2023 4:17 PM EST [employer] message sent * Telephone Encounter - Randall Silva APRN.CNP - 08/05/2023 3:42 PM EST RF approved. PDMP website checked and validated. All prescriptions have been APPROPRIATELY filled. No suspiciousactivity was identified. 08/05/2023 by Randall Silva APRN.JUANITA * Telephone Encounter - Elizabeth Nguyen RN - 08/05/2023 3:21 PM EST Patient said she missed two apts due to hospital admission for heart attack and admission for kidney failure. She has been scheduled for first available slot with Dr Delgado. VINOD: 02/13/23 Sanyd/Eric In Person - 08/21/23 MD Marguerite Delgado F/U: 08/21/23 Sandy 07/04/23 cancelled in hospital 06/13/23 cancelled in hospital IMPRESSION/PLAN: Elsa Pugh is a 67 year old female with hx of PMH of DM 2, HTN, HLD, chronic rhinitis, and obesity who presents in office for LADAN and RLS follow up. Obstructive Sleep Apnea RLS ( Restless Legs Syndrome Rating Scale score is 19 ) Chronic back pain - Continue autoBiPAP at current setting. - Compliance date reviewed later on as we received the report after patient left the visit - [email or web address] message was sent to the patient, patient was encouraged to use PAP more frequently - Remember to clean your mask and equipment regularly, as directed. - You should be eligible for new supplies approximately every 3-6 months, depending on your insurance coverage. Contact your Durable Medical Equipment (DME) company for new supplies as needed. - Continue with Lyrica 150 mg at supper and at bedtime for treatment of RLS. - Sending Fasting Iron/Ferritin levels - Follow up in 3 months with me in [facility]. Albin Reyes MD Attending Note I evaluated the patient and personally participated in the nicholson components. I agree with Dr. Richardson's findings and plan as documented and have discussed the case and management of the patient's care with the resident. Patient with history of LADAN, and RLS She has lost significant amount of weight, and her BiPAP setting has also decreased She is on an auto BiPAP (ResMed) Max IPAP 13 Min EPAP 5 PS 5 She is not compliant with usage, average 3 hours 40 minutes on day used in the last 30 days, with over 4 hour usage per day compliance ratio at 30%. She sleeps 5-6 hours at night, and nap for 2 hoursduring the day, but she does not use her BiPAP when she naps. Download also indicates mild residual sleep apnea. Since increase of her lyrica to 150 mg at supper, and 150 mg at bedtime, her RLS has improved, from22 to 19 IRLS score. But she still has back pain which is causing problem to her sleep. She is going to see her back provider soon. Some of her sleep discomfort likely due to her back pain, and it will also interfere with her BiPAP usage. Plan: Get fasting ferritin and iron panel Unchange with her BiPAP setting for now, encourage using biPAP when napping. Continue lyrica at current dosage Return in [address] Reyes. Hopefully by that time she will know about the treatment for her back, and we discuss more usage compliance and consider adjusting BiPAP setting. I spent a total of 60 minutes on the date of the service which included preparing to see the patient, [id number] patient care, completing clinical documentation, obtaining and/or reviewing separately obtained history, counseling and educating the patient/family/caregiver, ordering medications, any ts, or procedures, communicating with other HCPs (not separately reported), and independently interpreting results (not separately reported). Signature: Rita Delgado MD Date: 02/13/2023 Time: 12:13 PM documented in this encounterMarietta [facility]02-14-2024 History of Present illness Narrative* Gabriela Linda MD - 07/31/2023 10:23 AM EST Chief Complaint Patient presents with: 4 wk follow up HPI Elsa Pugh is a 68 year old female who presents here today for Above Complaints.. Previous HPI: Patient admitted to [facility] from 06/26 to 06/27 for persistent nausea with vomiting, acute on chronic anemia with concern for GI bleed, CA and UTI. Nausea and vomiting resolved with IV fluids during her hospitalization and was thought to be caused by her Ozempic. CT abd/pel negative for obstruction. Held ozempic on discharge. FOBT negative for blood. EGD showed non bleeding gastric ulcer. Advised to resume ASA and plavix and recheck CBC in 5-7 days. CA improved with IV fluids. Recommended repeat labs in 5-7 days. Urine culture negative for infection. Since discharge, patient states that she has continued to have nausea and vomiting yesterday morning and this morning without hematemesis or coffee ground emesis. Associated with dull headache without vision changes, loss of vision, seeing spots, slurred speech, facial droop, numbness/tingling/weakness. States she has had 1 migraine in her life and this headache is not similar. Held her typical dose of her Ozempic on 06/27. Compliant with daily dose of Protonix. Has not taken Phenergan for symptoms. Denies symptoms of a UTI today including: dysuria, hematuria, frequency, urgency. Pushing PO fluidsas recommended. Despite being off of her Ozempic her fasting sugars are all <130. Interim: Ozempic removed from her medication list at last OV since sugars were still controlled in the 130'sand losartan dose was reduced to 25 mg daily from BID due to hypotension. Continued phenergan PRN for nausea with vomiting and referred back to GI. Today, she states that the nausea and vomiting resolved a couple of days after our last visit. Had some left sided abdominal pain which resolved a few days ago. Has not seen GI for gastric ulcer and does not have a follow up until September. [facility] cardiology reduced her dosage of metoprolol from 25 mg daily to 12.5 mg daily 5 days ago because she was passing out and her HR and BP were low. BP and HR still low today. Beta alexandra makes her feel groggy as well. Her next appointment with cardiology is in August or October. Reviewed recent labs from cardiology showing CA with creatinine of 1.68 GFR 32 and improving anemia with hemoglobin up to 10.8. Admits to increased sodium intake recently. Avoids NSAIDs. Drinking 48oz of fluids per day. Also complaining today of tremor she gets when drinking tea, playing on her phone, and writing. Started about 2 weeks ago. Does not occur at rest. States she had been on Sinemet by PCP in [place] years ago. Does not want to try new medication at this time. Past medical history, appointments, medications, allergies reviewed. Previous Medical History PAST MEDICAL HISTORY Diagnosis Date Coronary artery disease Dr. Osorio DDD (degenerative disc disease), lumbar Essential hypertension Generalized anxiety disorder 01/15/2023 Hemorrhage of rectum and anus History of colonic polyps Hyperlipidemia Hypoglycemia, unspecified Narcolepsy Sleep Medicine in [place] NSTEMI (non-ST elevated myocardial infarction) (HCC) Obesity Obstructive sleep apnea on CPAP PMH - PAST MEDICAL HISTORY OF edema Restless legs syndrome (RLS) S/P CABG x 4 2001 Statin intolerance Type 2 diabetes mellitus without retinopathy (HCC) 03/06/2016 Unspecified asthma(493.90) mild intermittent, triggered by damp weather Uterine prolapse s/p hysterectomy Previous Surgical History PAST SURGICAL HISTORY Procedure Laterality Date COLONOSCOPY FLX DX W/COLLJ SPEC WHEN PFRMD 10/16/2003 Colonoscopy ESOPHAGOGASTRODUODENOSCOPY TRANSORAL DIAGNOSTIC 10/16/2003 EGD LAPS ABD PRTM&OMENTUM DX W/WO SPEC BR/WA SPX Laparoscopy PAST SURGICAL HISTORY OF 01/15/2015 4 new stents were placed PAST SURGICAL HISTORY OF 17 stents PAST SURGICAL HISTORY OF 2001 CABGx4 PAST SURGICAL HISTORY OF 04/2023 PCI of SVG to RPDA with 2 LENA implanted TONSILLECTOMY PRIMARY/SECONDARY <AGE 11 Tonsillectomy TOTAL ABDOMINAL HYSTERECT W/WO RMVL TUBE OVARY Hysterectomy, ZAKI Family History FAMILY HISTORY Problem Relation Age of Onset other (colon polyps) Father Diabetes Father Heart disease Father Diabetes Sister other (rheumatoid arthritis) Sister Anxiety disorder Sister Heart Attack Sister No Known Problems Maternal Grandmother No Known Problems Maternal Grandfather No Known Problems Paternal Grandmother No Known Problems Paternal Grandfather Drug abuse Son No Known Problems Daughter Patient Allergies ALLERGIES Allergen Reactions Asa [Salicylates] Vomiting Augmentin [Amoxicil* GI Upset Belladonna [Bellado* Intolerance GI upset Benazepril Cough Sep 2005 Butazolidin [Phenyl* Unknown Carbidopa Darvocet-N 100 [Pro* Intolerance HEADACHE Doxycycline Other: See Comments Patient ended up in ER with tongue and throat swelling- allergy not ruled out Guaifenesin-Sodium * Ibuprofen Rash Levaquin [Levofloxa* Other: See Comments Hallucinations anxiety numbness tingling Lopid [Gemfibrozil] Niacin Niaspan [Niacin (An* Penicillins Hives Provigil [Modafinil] Mental Status Change hallucinations Ramipril Unknown Pjshnii-Elg-Isc Red* Myalgia Sulfa (Sulfonamide * Tramadol Other: See Comments stroke like symptoms Current Medications Current Outpatient Medications on File Prior to Visit Medication Sig fenofibrate nanocrystallized (TRICOR) 145 mg tablet Take 1 tablet by mouth once daily. losartan (COZAAR) 25 mg tablet Take 1 tablet by mouth once daily. promethazine (PHENERGAN) 25 mg tablet Take 1 tablet by mouth every 6 hours as needed for nausea/vomiting. clopidogrel (PLAVIX) 75 mg tablet Take 75 mg by mouth once daily. isosorbide mononitrate ER (IMDUR) 60 mg 24 hr tablet Take 90 mg by mouth once daily. aspirin, enteric coated (ASPIRIN, ENTERIC COATED) 81 mg EC tablet Take 1 tablet by mouth once daily. metoprolol succinate ER (TOPROL XL) 25 mg 24 hr tablet Take 1 tablet by mouth once daily. (Patient taking differently: Take 12.5 mg by mouth once daily.) pantoprazole DR (PROTONIX) 40 mg tablet Take 1 tablet by mouth once daily. Take on empty stomach, 1/2 hr before meal. pregabalin (LYRICA) 150 mg capsule TAKE 1 CAPSULE BY MOUTH TWICE DAILY AT SUPPER AND BEDTIME ezetimibe (ZETIA) 10 mg tablet Take 1 tablet by mouth once daily. ACCU-CHEK FASTCLIX LANCET DRUM lancets 1 Each two times a day. ACCU-CHEK SMARTVIEW TEST STRIP test strip 1 Strip two times a day. blood sugar diagnostic (BLOOD GLUCOSE TEST) test strip Test blood sugar(s) 2 times daily. Dx: Type 2 DM - Controlled E11.9 Insulin: No Lancets lancets Test blood sugar(s) 2 times daily. Dx: Type 2 DM - Controlled E11.9 Insulin: No metFORMIN (GLUCOPHAGE) 1,000 mg tablet Take 1 tablet by mouth twice daily with meals. cholecalciferol (VITAMIN D-3) 50 mcg (2,000 unit) tablet Take 2,000 Units by mouth once daily. CPAP/BIPAP/OTHER Formal mask fitting to consider smaller FFM like dreamwear due to dry eyes and supplies for bipap 13/8cmH2O DME [employer] CPAP/BIPAP/OTHER Replacement auto bipap 13/8 with PS of 5cmH2O DME [employer] CPAP/BIPAP/OTHER Settings decrease to autobipap 13/8cmH2O DME [employer] BIPAP DME change for supplies. Pt has a [employer] Auto BiPAP IPAP max 18, EPAP min 6 CM H2O, PS 5 cmH2O. mask, filters, heated humidity & tubing, [employer] supplies. LADAN G47.33 red yeast rice 600 mg tab ascorbic acid, vitamin C, (VITAMIN C) 500 mg tablet Take 500 mg by mouth daily at bedtime. nitroglycerin sublingual (NITROQUICK) 0.4 mg SL tablet Dissolve 0.4 mg under the tongue. MAGNESIUM ORAL Take 300 mg by mouth twice daily. some days takes three tablets citalopram 40 mg tablet Take 1 tablet by mouth once daily. ranolazine ER (RANEXA) 500 mg 12 hr tablet Take 1,000 mg by mouth twice daily. No current facility-administered medications on file prior to visit. Social History Social History Tobacco Use Smoking status: Former Packs/day: 0.50 Years: 27.00 Additional pack years: 0.00 Total pack years: 13.50 Types: Cigarettes Quit date: 1997 Years since quittin.1 Smokeless tobacco: Never Vaping Use Vaping Use: Never used Substance Use Topics Alcohol use: Yes Comment: 2-3 drinks per month Drug use: No Review of Symptoms REVIEW OF SYSTEMS See HPI EXAM: BP 98/80 Pulse (!) 48 Resp 16 Ht 167.6 cm (5' 6) Wt 88 kg (194 lb) BMI 31.31 kg/m General Appearance: Well appearing, alert, in no acute distress, well-hydrated, well nourished.. Skin: Skin color, texture, turgor normal, no suspicious rashes or lesions. Lungs: Lungs clear to auscultation. No wheezing, rhonchi, rales.. Heart: Negative findings: no murmurs, rubs, clicks or gallops, Positive findings: bradycardia. Abdomen: Normal abdominal exam, Abdomen soft, non-tender. Bowel sounds normal. No masses, organomegaly. Extremities: No deformities, edema, skin discoloration, clubbing or cyanosis. Good capillary refill. . Neuro: no tremor at rest, with hands outstretched, or with finger to nose today. Health Maintenance List Urine Albumin:Creatinine Ratio Never done Dilated Retinal Exam due on 03/06/2017 Advance Directive Discussion Never done Depression Assessment due on 06/17/2023 DTaP,Tdap,Td Vaccine(2 - Tdap) due on 12/04/2023 Colorectal Cancer Screening due on 12/04/2023 Shingrix Vaccine(1 of 2) due on 12/04/2023 Hepatitis C Screening due on 04/10/2024 Covid-19 Vaccine(3 - 2022- season) due on 04/10/2024 Pneumococcal Vaccine: 65+(3 of 3 - PPSV23 or PCV20) due on 09/15/2023 HbA1C due on 10/29/2023 Mammogram Screening due on 12/13/2023 Diabetic Foot Exam due on 02/21/2024 LDL Cholesterol due on 04/30/2024 Annual PCP Team Chronic Disease Visit due on 07/02/2024 BP Controlled (<130/80) due on 07/02/2024 Bone Density Screening Completed Influenza Vaccine Completed RSV Vaccine Completed Data reviewed Component Latest Ref Rng & Units 07/02/2023 WBC 3.70 - 11.00 k/uL 7.67 RBC 3.90 - 5.20 m/uL 3.60 (L) Hemoglobin 11.5 - 15.5 g/dL 10.5 (L) Hematocrit 36.0 - 46.0 % 33.6 (L) MCV 80.0 - 100.0 fL 93.3 MCH 26.0 - 34.0 pg 29.2 MCHC 30.5 - 36.0 g/dL 31.3 RDW-CV 11.5 - 15.0 % 14.4 Platelet Count 150 - 400 k/uL 251 MPV 9.0 - 12.7 fL 11.8 Neut% % 62.0 Abs Neut (ANC) 1.45 - 7.50 k/uL 4.76 Lymph% % 26.5 Abs Lymph 1.00 - 4.00 k/uL 2.03 Tyrrell% % 9.0 Abs Tyrrell <0.87 k/uL 0.69 Eosin% % 1.7 Abs Eosin <0.46 k/uL 0.13 Baso% % 0.4 Abs Baso <0.11 k/uL 0.03 Immature Gran % % 0.4 IMMATURE GRANS (ABS) <0.10 k/uL 0.03 NRBC /100 WBC 0.0 Absolute nRBC <0.01 k/uL <0.01 DTYPE Auto Color Yellow Dark Yellow (A) Clarity Clear Cloudy (A) Glucose, Urine Negative Negative Bilirubin, Urine Negative 1+ (A) Ketones, Urine Negative Trace (A) Specific [place], Ur 1.005 - 1.030 1.025 Hemoglobin/Blood,Ur Negative Negative pH, Urine <8.5 5.0 Protein, Urine Negative Trace (A) Urobilinogen 0.2-1.0 EU/dL 1.0 EU/dL Nitrites Negative Negative Leukest Negative 1+ (A) WBC, Urine 0-5 /HPF 0-5 /HPF RBC, Urine 0-2 /HPF 0-2 /HPF Bacteria Negative /HPF Negative Epithelial Cells /HPF Few Hyaline Cast 0 /LPF 0 /LPF Protein, Total 6.3 - 8.0 g/dL 6.1 (L) Albumin 3.9 - 4.9 g/dL 4.1 Calcium 8.5 - 10.2 mg/dL 9.3 Bilirubin, Total 0.2 - 1.3 mg/dL 0.2 Alkaline Phosphatase 34 - 123 U/L 31 (L) AST 13 - 35 U/L 16 ALT 7 - 38 U/L 9 Glucose 74 - 99 mg/dL 144 (H) BUN 7 - 21 mg/dL 13 Creatinine 0.58 - 0.96 mg/dL 1.06 (H) Sodium 136 - 144 mmol/L 140 Potassium 3.7 - 5.1 mmol/L 4.1 Chloride 97 - 105 mmol/L 104 CO2 22 - 30 mmol/L 27 Anion Gap 9 - 18 mmol/L 9 eGFR >=60 mL/min/1.73m 57 (L) ASSESSMENT/PLAN: 1. Nausea and vomiting, unspecified vomiting type - ICD9: 787.01, ICD10: R11.2 (primary diagnosis) Resolved. Patient to call with recurrent symtpoms. 2. Hypotension, unspecified hypotension type - ICD9: 458.9, ICD10: I95.9 BP and HR remains low on low dose losartan and beta alexandra. Patient to reach out to business lawyer about possibly stopping beta alexandra entirely. Will forward our note to their office. 3. Bradycardia - ICD9: 427.89, ICD10: R00.1 See above. 4. CA (acute kidney injury) (HCC) - ICD9: 584.9, ICD10: N17.9 Recommend low sodium diet <2,000 mg per day, avoidance of NSAIDs, and increased water intake. Recheck CMP in 2 weeks. - COMP METABOLIC PANEL 5. Anemia, unspecified type - ICD9: 285.9, ICD10: D64.9 Improving. Will monitor. 6. Gastric ulcer without hemorrhage or perforation, unspecified chronicity - ICD9: 531.90, ICD10: K25.9 F/u with GI. 7. Essential tremor - ICD9: 333.1, ICD10: G25.0 Normal exam today. Discussed primidone for tremor which she is refusing at this time. Will call if worsening. Gabriela Linda MD [facility] Consult note Author Hugo Friend [facility] June 27, 2023 12:36pm Note Date/Time June 27, 2023 1 2:32pm [facility] Medical Records Department [address] [place] [address] Consultation - GI 06/26/23 2300 MR#: [id number] Acct: [id number] Name: ELSA PUGH Rep #:[id number] : 1955 68 From: Hugo Friend DO PCP: Dr. Redd Linda MD Status :ADM IN Location: [facility] IS369-1 HPI Consult Data Date of Consult: 06/26/23 HPI Narrative Reason for Consultation: GI bleed HPI Narrative: ELSA PUGH, is a 68 F who presents with nausea, vomiting, and melena. Patient states she has had multiple episodes of vomiting over the past week. Patient states that today she noted some blood streaks in her emesis. Patient states she has had some black stools recently. Patient states that her urine became darker. Patient is concerned that this could be blood. Patient is currently on Plavix. Patient saw her primary care physician today who referred to the emergency department for possible gastrointestinal bleeding. She also has a history of hypertension, hyperlipidemia, low HDL syndrome, hyperhomocystinemia, intolerance of statins and cax-etgrthv-keyvgjzgf diabetes mellitus. She has had numerous cardiac procedures including PCI in 2012 with a drug-eluting stent to the saphenous vein graft to right posterior descending artery, in 2014 with a drug-eluting stent to the proximal LAD and in-stent stenosis of the saphenous vein graft to the posterior descending artery. In 2015 she had a PCI to the saphenous vein graft to the posterior descending artery. In 2016 she had in-stent restenosis of that vessel as well as in 2017. Her catheterization in August 2017 demonstrated a normal left main coronary artery, and left circumflex artery which had 25 to 30% proximal stenosis, and left anterior descending artery which had a stented proximal portion the mid segment had a 40 to 50% stenosis, the left internal mammary artery to the left anterior descending artery was noted to be occluded, the right coronary artery was occluded, the saphenous vein graft to the posterior descending artery was patent. The distal body of the graft was a stented segment with 90% stenosis and therefore she underwent successful catheter-based drug-eluting stent placement to the proximal and distal body of the saphenous vein graft. The radial artery was noted to be previously occluded. Vitals in the ED at time of review were BP of 154/78. SD of 59, RR of 14 and temp of 97.4F. She was saturating at 96% on room air. CBC showed wbc of 7.3, hb of 11, platelets of 246. INR was 1.1. Chemistry showed sodium of 137, potassium of 4.2 nad bicarb of 31. Cr was 2.02, with a baseline Cr of 0.93. Urinalysis showed 1+ bacteria and positive nitrites. Stool for occult blood was negative. CT abdomen and pelvis showed scattered diverticulosis with no signs of diverticulitis and moderate to abundant fecal debris within the colon and no evidence of bowel obstruction or fee air; s/p cholecystectomy. [facility] Medical History Acute kidney failure Alcohol use Ambulates with cane Anemia Anxiety and depression Arthritis Atherosclerosis of coronary artery 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 Atherosclerotic heart disease of [place] coronary artery without angina pectoris Back pain Blackout Cardiology follow-up encounter Chest pain Concussion COVID CPAP (continuous positive airway pressure) dependence Diabetes Difficulty chewing Difficulty swallowing Epigastric pain Essential hypertension Former smoker Gastric reflux GERD (gastroesophageal reflux disease) Headache Hiatal hernia High cholesterol History of diverticulitis History of echocardiogram History of heart attack History of irregular heartbeat History of stress test Hyperhomocystinemia Hyperlipidemia Imbalance Injury of back Injury of head and neck Iron deficiency anemia Lymphedema Migraine headache Narcolepsy Obesity Obstructive sleep apnea Peripheral neuropathy Post-menopausal Proliferative diabetic retinopathy Restless legs Restless legs syndrome (RLS) Rheumatoid arthritis Shortness of breath on exertion Sleep apnea Type 2 diabetes mellitus Wears glasses Home Medications ascorbate calcium (vitamin C) 500 mg tablet 500 mg PO DAILY 10/26/21 [History Last Taken 05/17/23] red yeast rice 600 mg capsule 600 mg PO DAILY 10/26/21 [History Last Taken 05/17/23] pregabalin 150 mg capsule 150 mg PO BID 02/27/22 [History Last Taken 05/17/23] cholecalciferol (vitamin D3) 25 mcg (1,000 unit) capsule 25 mcg PO DAILY 06/04/22 [History Last Taken 05/17/23] ranolazine 1,000 mg tablet,extended release,12 hr 1,000 mg PO BID #180 tabs 06/25/22 [Rx Last Taken 05/17/23] nitroglycerin 0.4 mg sublingual tablet 0.4 mg sublingual Q5-15M PRN chest pain #25 tabs 10/15/22 [Rx Last Taken Unknown] metformin 500 mg tablet 1,000 mg PO BID 01/21/23 [History Last Taken 05/17/23] ezetimibe 10 mg tablet 10 mg PO DAILY 03/11/23 [History Last Taken 05/17/23] albuterol sulfate 90 mcg/actuation aerosol inhaler 1 puff inhalation Q6H PRN shortness of breath or wheezing 04/27/23 [History Last Taken Unknown] semaglutide 1 mg/dose (4 mg/3 mL) subcutaneous pen injector (Ozempic) 1 mg subcut QWEEK 04/27/23 [History Last Taken 05/16/23] aspirin 81 mg tablet,delayed release (Adult Aspirin Regimen) 81 mg PO DAILY 05/18/23 [History Last Taken 05/17/23] citalopram 40 mg tablet 20 mg PO DAILY 05/18/23 [History Last Taken 05/17/23] fenofibrate nanocrystallized 145 mg tablet 145 mg PO DAILY 05/18/23 [History Last Taken 05/17/23] losartan 50 mg tablet 50 mg PO BID #60 tabs 05/18/23 [Rx Last Taken Unknown] metoprolol succinate 25 mg tablet,extended release 24 hr 25 mg PO DAILY 05/18/23[History Last Taken 05/17/23] pantoprazole 40 mg tablet,delayed release 40 mg PO DAILY 05/18/23 [History Last Taken 05/17/23] Handicap Placard #1 ea 06/05/23 [Rx Last Taken Unknown] isosorbide mononitrate 30 mg tablet,extended release 24 hr 30 mg PO DAILY #30 tabs 06/05/23 [Rx Last Taken Unknown] isosorbide mononitrate 60 mg tablet,extended release 24 hr 60 mg PO DAILY #30 tabs 06/05/23 [Rx Last Taken Unknown] clopidogrel 75 mg tablet 75 mg PO .COMPLEX #90 tabs 06/14/23 [Rx Last Taken Unknown] Allergy/AdvReac Type Severity Reaction Status Date / Time aspirin Allergy Rash Verified 06/25/23 17:06 banana Allergy Hives Verified 06/25/23 17:06 canagliflozin [From Invokana] Allergy Anaphylaxis Verified 06/25/23 17:06 kiwi Allergy Hives Verified 06/25/23 17:06 niacin Allergy Rash Verified 06/25/23 17:06 Penicillins [PCN] Allergy Hives Verified 06/25/23 17:06 Sulfa (Sulfonamide Allergy Hives Verified 06/25/23 17:06 Antibiotics) ticagrelor AdvReac Severe Severe Verified 06/25/23 17:06 nausea and vomiting erythromycin base AdvReac Other Verified 06/25/23 17:06 [From Staticin] ethyl alcohol [From Staticin] AdvReac Other Verified 06/25/23 17:06 gemfibrozil [From Lopid] AdvReac Other Verified 06/25/23 17:06 ibuprofen AdvReac Upset Verified 06/25/23 17:06 Stomach levofloxacin [From Levaquin] AdvReac Upset Verified 06/25/23 17:06 Stomach lisinopril AdvReac cough Verified 06/25/23 17:06 propoxyphene AdvReac Upset Verified 06/25/23 17:06 [From Darvocet-N] Stomach spironolactone AdvReac hyperkalemi Verified 06/25/23 17:06 a Ztajktm-KBZ-KfX Reductase AdvReac unknown Verified 06/25/23 17:06 Inhibitor [Aexgjxr-Put-Dwt Reductase Inhibitor] tramadol AdvReac Other Verified 06/25/23 17:06 Family History Mother Heart disease Father Heart disease Diabetes Surgical History H/O coronary artery bypass surgery (10/2001) History of cataract surgery History of cholecystectomy History of colonoscopy with polypectomy History of coronary artery stent placement (04/30/23) History of hysterectomy History of left heart catheterization History of tonsillectomy Social History household members: spouse Smoking Status: Former smoker how long ago did patient quit smokin alcohol intake: current alcohol intake frequency: holidays/special occasions only Alcohol type: beer substance use type: does not use what type of physical activity do you participate in: walking frequency: 5-6 times per week ROS Constitutional Constitutional: Reports fatigue and malaise; Denies anorexia, chills, fever(s) or weakness Eyes Eyes: Denies change in vision ENT HEENT: Denies dysphagia or headache(s) Cardiovascular Cardiovascular: Denies chest pain, edema, orthopnea, palpitations or paroxysmal nocturnal dyspnea Respiratory/Chest Respiratory/Chest: Denies cough, shortness of breath at rest or shortness of breath with exertion Gastrointestinal Gastrointestinal: Reports nausea and vomiting; Denies abdominal pain, diarrhea or dyspepsia Genitourinary Genitourinary: Denies dysuria or urinary frequency Musculoskeletal Musculoskeletal: Denies back pain, joint pain, joint stiffness or joint swelling Neurologic Neurologic: Denies dizziness, focal weakness, headache(s) or weakness Psychiatric Psychiatric: Denies anxiety or depression Endocrine Endocrinology: Denies change in body appearance Physical Exam Const alert, oriented x3 and no apparent distress Constitutional Narrative: Pleasant elderly female, obese, sitting comfortably at edge of bed, conversing normally, no acute distress. General Appearance: cooperative and comfortable HEENT normocephalic, head/scalp atraumatic, hearing grossly normal bilaterally, nasal mucous membranes and turbinates normal and moist oral mucous membranes Eyes PERRL, EOMs intact bilaterally and conjunctivae normal Neck full ROM, no lymphadenopathy and supple Lymph Lymphatic: no lymphadenopathy noted Chest inspection of chest normal Resp normal respiratory effort, normal air movement, no use of accessory muscles and clear to auscultation bilaterally Cardio regular rate, regular rhythm, no murmurs and peripheral pulses 2+ throughout GI normal to inspection, nondistended, normoactive bowel sounds, soft to palpation,non-tender and non-distended Back/Spine normal ROM Extremity normal to inspection, full ROM and no pedal edema Skin no rashes or lesions noted Neuro no focal motor deficits and no sensory deficits noted Speech: speech normal Psych mental status grossly normal Lab / Micro Data 06/27/23 07:42 06/27/23 07:42 Labs: Laboratory Results - last 24 hr 06/26/23 12:30: POC Glucose 130 H 06/26/23 17:08: POC Glucose 121 H 06/26/23 21:41: POC Glucose 119 H 06/27/23 06:36: POC Glucose 123 H 06/27/23 07:42: WBC 5.6, RBC 3.49 L, Hgb 10.3 L, Hct 31.0 L, MCV 88.8, MCH 29.5,MCHC 33.2, RDW Std Deviation 45.6 H, RDW Coeff of Nancy 14.2, Plt Count 214, MPV 11.6, Sodium 138, Potassium 4.8, Chloride 108 H, Carbon Dioxide 26.0, Anion Gap 4 L, BUN 16, Creatinine 1.12 H, Estim Creat Clear Calc 52.54, Est GFR (MDRD) Af Amer 62, Est GFR (MDRD) Non-Af 51 L, BUN/Creatinine Ratio 14.3, Glucose 115 H, Calcium 8.8 06/27/23 11:23: POC Glucose 101 Assessment & Plan Assessment/Plan (1) Nausea and vomiting: (2) Urinary tract infection: PLAN: Plan 68-year-old with CAD status post PTCA with PCI on aspirin and Plavix presents with nausea and vomiting possibly due to UTI * She also complained of dark stools, which is possibly secondary to gastritis or peptic disease secondary to to any platelet medicines that she takes on a daily basis due to her cardiac history * She will undergo an upper endoscopy to evaluate upper GI tract. She was explained alternatives, risk, benefits include not withstanding bleeding, infection, sepsis, perforation, need for emergent surgery . She will have an ASA of 3. Charges/Coding Visit Charges Inpatient E&M: 59043 Init Hosp L3 06/27/23 1236 <Electronically signed by Hugo Friend DO> Cosigner Signature (if applicable): CC: Dr. Redd Linda MD; Dr. Alpa Cooney MD~ Signed [facility] Work Phone: [phone]) 974-367901-11-2024 Procedure [facility] 06-27-2023 Procedure [facility]01-10-2024 History and physical note Author Alpa [facility] June 26, 2023 7:03pm Note Date/Time June 26, 2023 1 2:41am [facility] Medical Records Department [address] [place] [address] History & Physical Exam 06/26/23 0033 MR#: [id number] Acct: [id number] Name: ELSA PUGH Rep #:[id number] : 1955 68 From: Alpa Cooney MD PCP: Dr. Redd Linda MD Status :ADM IN Location: [place] [address] HPI - General General Date of Admission: 06/26/23 Date of Service: 06/26/23 Chief Complaint: nausea and vomiting HPI Sherrie PUGH, is a 68 F with a PMH as outlined who was admitted via the ED on06/26/2023 with a complaint of nausea, vomiting and melena. She had had numerous episodes of nausea and vomiting over the week prior to admission, and also said she had had some dark stools as well. She also noticed her urine was becoming darker. Her symptoms werent improving so she went to see her PCP and was directed to the ED. Vitals in the ED at time of review were BP of 154/78. SD of 59, RR of 14 and temp of 97.4F. She was saturating at 96% on room air. CBC showed wbc of 7.3, hb of 11, platelets of 246. INR was 1.1. Chemistry showed sodium of 137, potassium of 4.2 nad bicarb of 31. Cr was 2.02, with a baseline Cr of 0.93. Urinalysis showed 1+ bacteria and positive nitrites. Stool for occult blood was negative. CT abdomen and pelvis showed scattered diverticulosis with no signs of diverticulitis and moderate to abundant fecal debris within the colon and no evidence of bowel obstruction or fee air; s/p cholecystectomy. She is being admitted to be managed for CA due to nausea and vomiting. [facility] Medical History Acute kidney failure Alcohol use Ambulates with cane Anemia Anxiety and depression Arthritis Atherosclerosis of coronary artery 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 Atherosclerotic heart disease of [place] coronary artery without angina pectoris Back pain Blackout Cardiology follow-up encounter Chest pain Concussion COVID CPAP (continuous positive airway pressure) dependence Diabetes Difficulty chewing Difficulty swallowing Epigastric pain Essential hypertension Former smoker Gastric reflux GERD (gastroesophageal reflux disease) Headache Hiatal hernia High cholesterol History of diverticulitis History of echocardiogram History of heart attack History of irregular heartbeat History of stress test Hyperhomocystinemia Hyperlipidemia Imbalance Injury of back Injury of head and neck Iron deficiency anemia Lymphedema Migraine headache Narcolepsy Obesity Obstructive sleep apnea Peripheral neuropathy Post-menopausal Proliferative diabetic retinopathy Restless legs Restless legs syndrome (RLS) Rheumatoid arthritis Shortness of breath on exertion Sleep apnea Type 2 diabetes mellitus Wears glasses Home Medications ascorbate calcium (vitamin C) 500 mg tablet 500 mg PO DAILY 10/26/21 [History Last Taken 05/17/23] red yeast rice 600 mg capsule 600 mg PO DAILY 10/26/21 [History Last Taken 05/17/23] pregabalin 150 mg capsule 150 mg PO BID 02/27/22 [History Last Taken 05/17/23] cholecalciferol (vitamin D3) 25 mcg (1,000 unit) capsule 25 mcg PO DAILY 06/04/22 [History Last Taken 05/17/23] ranolazine 1,000 mg tablet,extended release,12 hr 1,000 mg PO BID #180 tabs 06/25/22 [Rx Last Taken 05/17/23] nitroglycerin 0.4 mg sublingual tablet 0.4 mg sublingual Q5-15M PRN chest pain #25 tabs 10/15/22 [Rx Last Taken Unknown] metformin 500 mg tablet 1,000 mg PO BID 01/21/23 [History Last Taken 05/17/23] ezetimibe 10 mg tablet 10 mg PO DAILY 03/11/23 [History Last Taken 05/17/23] albuterol sulfate 90 mcg/actuation aerosol inhaler 1 puff inhalation Q6H PRN shortness of breath or wheezing 04/27/23 [History Last Taken Unknown] semaglutide 1 mg/dose (4 mg/3 mL) subcutaneous pen injector (Ozempic) 1 mg subcut QWEEK 04/27/23 [History Last Taken 05/16/23] aspirin 81 mg tablet,delayed release (Adult Aspirin Regimen) 81 mg PO DAILY 05/18/23 [History Last Taken 05/17/23] citalopram 40 mg tablet 20 mg PO DAILY 05/18/23 [History Last Taken 05/17/23] fenofibrate nanocrystallized 145 mg tablet 145 mg PO DAILY 05/18/23 [History Last Taken 05/17/23] losartan 50 mg tablet 50 mg PO BID #60 tabs 05/18/23 [Rx Last Taken Unknown] metoprolol succinate 25 mg tablet,extended release 24 hr 25 mg PO DAILY 05/18/23[History Last Taken 05/17/23] pantoprazole 40 mg tablet,delayed release 40 mg PO DAILY 05/18/23 [History Last Taken 05/17/23] Handicap Placard #1 ea 06/05/23 [Rx Last Taken Unknown] isosorbide mononitrate 30 mg tablet,extended release 24 hr 30 mg PO DAILY #30 tabs 06/05/23 [Rx Last Taken Unknown] isosorbide mononitrate 60 mg tablet,extended release 24 hr 60 mg PO DAILY #30 tabs 06/05/23 [Rx Last Taken Unknown] clopidogrel 75 mg tablet 75 mg PO .COMPLEX #90 tabs 06/14/23 [Rx Last Taken Unknown] Allergy/AdvReac Type Severity Reaction Status Date / Time aspirin Allergy Rash Verified 06/25/23 17:06 banana Allergy Hives Verified 06/25/23 17:06 canagliflozin [From Invokana] Allergy Anaphylaxis Verified 06/25/23 17:06 kiwi Allergy Hives Verified 06/25/23 17:06 niacin Allergy Rash Verified 06/25/23 17:06 Penicillins [PCN] Allergy Hives Verified 06/25/23 17:06 Sulfa (Sulfonamide Allergy Hives Verified 06/25/23 17:06 Antibiotics) ticagrelor AdvReac Severe Severe Verified 06/25/23 17:06 nausea and vomiting erythromycin base AdvReac Other Verified 06/25/23 17:06 [From Staticin] ethyl alcohol [From Staticin] AdvReac Other Verified 06/25/23 17:06 gemfibrozil [From Lopid] AdvReac Other Verified 06/25/23 17:06 ibuprofen AdvReac Upset Verified 06/25/23 17:06 Stomach levofloxacin [From Levaquin] AdvReac Upset Verified 06/25/23 17:06 Stomach lisinopril AdvReac cough Verified 06/25/23 17:06 propoxyphene AdvReac Upset Verified 06/25/23 17:06 [From Darvocet-N] Stomach spironolactone AdvReac hyperkalemi Verified 06/25/23 17:06 a Mwuyvrw-MTU-FfG Reductase AdvReac unknown Verified 06/25/23 17:06 Inhibitor [Fdafcxw-Pry-Ncg Reductase Inhibitor] tramadol AdvReac Other Verified 06/25/23 17:06 Family History Mother Heart disease Father Heart disease Diabetes Surgical History H/O coronary artery bypass surgery (10/2001) History of cataract surgery History of cholecystectomy History of colonoscopy with polypectomy History of coronary artery stent placement (04/30/23) History of hysterectomy History of left heart catheterization History of tonsillectomy Social History household members: spouse Smoking Status: Former smoker how long ago did patient quit smokin alcohol intake: current alcohol intake frequency: holidays/special occasions only Alcohol type: beer substance use type: does not use what type of physical activity do you participate in: walking frequency: 5-6 times per week ROS Constitutional Constitutional: Reports fatigue and malaise; Denies anorexia, chills, fever(s) or weakness Eyes Eyes: Denies change in vision ENT HEENT: Denies dysphagia or headache(s) Cardiovascular Cardiovascular: Denies chest pain, edema, orthopnea, palpitations or paroxysmal nocturnal dyspnea Respiratory/Chest Respiratory/Chest: Denies cough, shortness of breath at rest or shortness of breath with exertion Gastrointestinal Gastrointestinal: Reports nausea and vomiting; Denies abdominal pain, diarrhea or dyspepsia Genitourinary Genitourinary: Denies dysuria or urinary frequency Musculoskeletal Musculoskeletal: Denies back pain, joint pain, joint stiffness or joint swelling Neurologic Neurologic: Denies dizziness, focal weakness, headache(s) or weakness Psychiatric Psychiatric: Denies anxiety or depression Endocrine Endocrinology: Denies change in body appearance Vital Signs Vital Signs Vital Signs: 06/25/23 17:04 06/25/23 21:33 06/25/23 23:31 Temperature 98.1 F Temperature Source Temporal Pulse Rate 56 L 60 61 Respiratory Rate 16 14 Blood Pressure 216/76 H 164/87 H 157/78 H Blood Pressure Mean 122 112 104 Pulse Ox 97 97 Oxygen Delivery Method Room Air 06/25/23 23:46 06/25/23 23:47 Temperature 97.4 F L Temperature Source Temporal Pulse Rate 59 L 59 L Respiratory Rate 14 14 Blood Pressure 154/73 H 154/78 H Blood Pressure Mean 100 103 Pulse Ox 96 96 Oxygen Delivery Method Room Air Weight Weight: 190 lb 12.8 oz Body Mass Index (BMI) 30.8 Physical Exam Const alert, oriented x3 and no apparent distress General Appearance: cooperative HEENT normocephalic and head/scalp atraumatic Mouth: dry mucous membranes Eyes PERRL and EOMs intact bilaterally Neck no lymphadenopathy and supple Lymph Lymphatic: no lymphadenopathy noted and no lymphedema noted Resp normal respiratory effort, normal air movement and clear to auscultation bilaterally Cardio regular rate, regular rhythm, S1 normal heart sound, S2 normal heart sound and no murmurs GI normal to inspection, nondistended, normoactive bowel sounds, soft to palpation and non-tender Palpation: no hepatosplenomegaly Extremity normal capillary refill, no clubbing, cyanosis or edema and no calf tenderness General Extremity: no tenderness to palpation of joints or extremities Skin General Skin Exam: no breakdown Neuro CN's II-XII intact bilaterally, no focal motor deficits and no sensory deficits noted Motor Exam: strength 5/5 throughout and general weakness Psych thought process normal, cooperative and affect normal Appearance: appropriate Results Lab / Micro Data 06/26/23 05:45 06/26/23 05:45 Labs: Laboratory Results - last 24 hr 06/25/23 19:05: Urine Color Yellow, Urine Clarity Sl. Cloudy, Urine pH 5.0, Ur Specific [place] 1.025, Urine Protein 30 H, Urine Glucose (UA) Normal, Urine Ketones 5 H, Urine Occult Blood Negative, Urine Nitrite Positive H, Urine Bilirubin 1 H, Urine Urobilinogen 1 H, Ur Leukocyte Esterase 100 H, Urine RBC 0 SEEN, Urine WBC 5-10 SEEN, Ur Squamous Epith Cells 0-5 SEEN, Calcium Oxalate Crystal 1+, Urine Bacteria 1+, Urine Mucus 0 SEEN 06/25/23 20:00: WBC 7.3, RBC 3.84 L, Hgb 11.0 L, Hct 34.4 L, MCV 89.6, MCH 28.6,MCHC 32.0, RDW Std Deviation 45.5 H, RDW Coeff of Nancy 14.1, Plt Count 246, MPV 11.4, Immature Gran % (Auto) 0.400, Neut % (Auto) 49.4, Lymph % (Auto) 37.4, Tyrrell % (Auto) 10.2 H, Eos % (Auto) 2.2, Baso % (Auto) 0.4, Absolute Neuts (auto)3.6, Absolute Lymphs (auto) 2.74, Nucleated RBC % 0, PT 14.0, INR 1.1, APTT 29.9, Sodium 137, Potassium 4.2, Chloride 104, Carbon Dioxide 31.0, Anion Gap 2 L, BUN 32 H, Creatinine 2.02 H, Estim Creat Clear Calc 29.13, Est GFR (MDRD) Af Amer 31 L, Est GFR (MDRD) Non-Af 26 L, BUN/Creatinine Ratio 15.8, Glucose 95, Calcium 9.1, Total Bilirubin 0.40, AST 14 L, ALT 19, Alkaline Phosphatase 32 L, Total Protein 7.0, Albumin 3.8, Globulin 3.2, Albumin/Globulin Ratio 1.2, [id number] Micro: Microbiology 06/25/23 23:20 Stool Stool Occult Blood (LARISSA) - Final Imagaing Radiology Impression Abdomen CT 06/25/23 19:42 IMPRESSION: Scattered diverticulosis with no signs of diverticulitis. Moderate to abundant fecal debris within the colon, with no signs of bowel obstruction. No acute appendicitis. No free air. Status post cholecystectomy, otherwise unremarkable abdominal viscera. Electronically Signed: Shana Kim MD at 21:42 EST Reading Location ID and State: [address] [place] [address] , Service support , Assessment & Plan Assessment/Plan (1) Nausea and vomiting: (2) Urinary tract infection: PLAN: Plan #Nausea and vomiting likely due to UTI * admit to med surg * she also complained of dark stools, but stool for occult blood was negative * Hb is also stable at 11.5 * urinalysis showed evidence of UTI * hydrate gently with IVF * IV zofran prn * IV ceftriaxone * get urine cultures * she is also on ozempic, so this nausea and vomiting could be a side effect of her ozempic also #CA * Cr is 2. baseline Cr is 0.98 * likely due to nausea and vomiting with resultant dehydration * hydrate with IVF and trend. If Cr doesnt improve, then to do further workup as needed with FeNa/FeUrea and renal USG. * hold nephrotoxic meds * #Type 2 diabetes mellitus * hold metformin and Ozempic * ISS. Accuchecks ACHS * #Hypertension: hold losartan due to CA #Hyperlipidemia: on ezetimibe #Depression; on citalopram #CAD s/p CABG; on aspirin, plavix and ezetimibe as well as imdur DVT prophylaxis: SCDs Code status: * Patient counseled extensively about different types of CODE STATUS including full code, DNR CCA and DNR CCA. Patient elects to be full code. Total [id number] time 17 minutes. Total time spent on evaluation and management of patient, reviewing chart, discussing plan with patient, discussion with nursing and ancillary staff as well as documentation: 78 mins Charges/Coding Visit Charges Inpatient E&M: 69770 Init Hosp L3 Procedures Hospitalists Procedures: 14287 Advncd Care Plan 30 Min 06/26/23 1903 <Electronically signed by Alpa Cooney MD> Cosigner Signature (if applicable): CC: Dr. Redd Linda MD; Dr. Alpa Cooney MD~ Signed [facility] Work Phone: [phone]) 827-595401-10-2024 Progress note Author Helio [facility] June 26, 2023 5:15pm Note Date/Time June 26, 2023 5 :04pm [facility] Medical Records Department [address] [place] [address] Progress Note - Hospitalist 06/26/23 1659 MR#: [id number] Acct: [id number] Name: ELSA PUGH Rep #:[id number] : 1955 68 From: Helio little DO PCP: Dr. Redd Linda MD Status :ADM IN Location: [place] [address] Subjective Subjective Patient seen at bedside this morning in the ED. Patient was sitting up comfortably at the edge of the bed, conversing normally, no acute distress. Shewas just about to eat breakfast when I arrived. Patient appeared very comfortable and had good level of energy during the interview. Patient states that she feels significantly improved since coming to the ED after receiving IV fluids. Has not had any episodes of nausea with vomiting or dark stools since arriving to the ED. She denies any acute pain or discomfort. Denies any UTI symptoms. She has been up walking around the ED without any issues. Lives at home with her boyfriend, able to do all things around the house for self withoutissue. No other acute concerns this morning. Objective Data Objective Data Vital Signs: Vital Signs Temp Pulse Resp BP Pulse Ox O2 Del Method 98.0 F 53 L 16 115/61 96 Room Air 06/26/23 10:00 06/26/23 10:00 06/26/23 10:00 06/26/23 10:00 06/26/23 10:00 06/26/23 10:00 Oxygen Delivery Method Room Air Weight: 86.545 kg Body Mass Index (BMI) 30.8 Intake & Output: Intake and Output for Last 24 Hours 06/24/23 06/25/23 06/26/23 23:59 23:59 23:59 Intake Total 1999 2250 / 2250 Balance 1999 2250 / 2250 Lab / Micro Data 06/26/23 05:45 06/26/23 05:45 Labs: Laboratory Results - last 24 hr 06/25/23 19:05: Urine Color Yellow, Urine Clarity Sl. Cloudy, Urine pH 5.0, Ur Specific [place] 1.025, Urine Protein 30 H, Urine Glucose (UA) Normal, Urine Ketones 5 H, Urine Occult Blood Negative, Urine Nitrite Positive H, Urine Bilirubin 1 H, Urine Urobilinogen 1 H, Ur Leukocyte Esterase 100 H, Urine RBC 0 SEEN, Urine WBC 5-10 SEEN, Ur Squamous Epith Cells 0-5 SEEN, Calcium Oxalate Crystal 1+, Urine Bacteria 1+, Urine Mucus 0 SEEN 06/25/23 20:00: WBC 7.3, RBC 3.84 L, Hgb 11.0 L, Hct 34.4 L, MCV 89.6, MCH 28.6,MCHC 32.0, RDW Std Deviation 45.5 H, RDW Coeff of Nancy 14.1, Plt Count 246, MPV 11.4, Immature Gran % (Auto) 0.400, Neut % (Auto) 49.4, Lymph % (Auto) 37.4, Tyrrell % (Auto) 10.2 H, Eos % (Auto) 2.2, Baso % (Auto) 0.4, Absolute Neuts (auto)3.6, Absolute Lymphs (auto) 2.74, Nucleated RBC % 0, PT 14.0, INR 1.1, APTT 29.9, Sodium 137, Potassium 4.2, Chloride 104, Carbon Dioxide 31.0, Anion Gap 2 L, BUN 32 H, Creatinine 2.02 H, Estim Creat Clear Calc 29.13, Est GFR (MDRD) Af Amer 31 L, Est GFR (MDRD) Non-Af 26 L, BUN/Creatinine Ratio 15.8, Glucose 95, Calcium 9.1, Total Bilirubin 0.40, AST 14 L, ALT 19, Alkaline Phosphatase 32 L, Total Protein 7.0, Albumin 3.8, Globulin 3.2, Albumin/Globulin Ratio 1.2, [id number] 06/26/23 05:45: WBC 5.2, RBC 3.31 L, Hgb 9.7 L, Hct 29.7 L, MCV 89.7, MCH 29.3, MCHC 32.7, RDW Std Deviation 46.2 H, RDW Coeff of Nancy 14.0, Plt Count 213, MPV 11.2, Immature Gran % (Auto) 0.600, Neut % (Auto) 50.5, Lymph % (Auto) 35.1, Tyrrell % (Auto) 10.7 H, Eos % (Auto) 2.9, Baso % (Auto) 0.2, Absolute Neuts (auto)2.6, Absolute Lymphs (auto) 1.81, Nucleated RBC % 0, Sodium 141, Potassium 4.1, Chloride 110 H, Carbon Dioxide 24.0, Anion Gap 7, BUN 26 H, Creatinine 1.54 H, Estim Creat Clear Calc 38.21, Est GFR (MDRD) Af Amer 43 L, Est GFR (MDRD) Non-Af36 L, BUN/Creatinine Ratio 16.9, Glucose 131 H, Calcium 7.3 L 06/26/23 08:30: POC Glucose 120 H 06/26/23 12:30: POC Glucose 130 H Micro: Microbiology 06/25/23 23:20 Stool Stool Occult Blood (LARISSA) - Final Radiography Diagnostic Testing: Radiology Impression Abdomen CT 06/25/23 19:42 IMPRESSION: Scattered diverticulosis with no signs of diverticulitis. Moderate to abundant fecal debris within the colon, with no signs of bowel obstruction. No acute appendicitis. No free air. Status post cholecystectomy, otherwise unremarkable abdominal viscera. Electronically Signed: Shana Kim MD at 21:42 EST , Physical Exam Const alert, oriented x3 and no apparent distress Constitutional Narrative: Pleasant elderly female, obese, sitting comfortably at edge of bed, conversing normally, no acute distress. General Appearance: cooperative and comfortable HEENT normocephalic, head/scalp atraumatic, hearing grossly normal bilaterally, nasal mucous membranes and turbinates normal and moist oral mucous membranes Eyes PERRL, EOMs intact bilaterally and conjunctivae normal Neck full ROM, no lymphadenopathy and supple Lymph Lymphatic: no lymphadenopathy noted Chest inspection of chest normal Resp normal respiratory effort, normal air movement, no use of accessory muscles and clear to auscultation bilaterally Cardio regular rate, regular rhythm, no murmurs and peripheral pulses 2+ throughout GI normal to inspection, nondistended, normoactive bowel sounds, soft to palpation,non-tender and non-distended Back/Spine normal ROM Extremity normal to inspection, full ROM and no pedal edema Skin no rashes or lesions noted Neuro no focal motor deficits and no sensory deficits noted Speech: speech normal Psych mental status grossly normal Assessment & Plan Assessment/Plan (1) Nausea and vomiting: (2) Acute kidney injury: PLAN: Plan Patient is a 68-year-old female who presented to [facility] ED on 06/25/2023 with nausea/vomiting and melena. 1. Nausea and vomiting, improving Unclear etiology. May be secondary to possible UTI as noted below. Also could be side effect of her Ozempic. Appeared dry on exam on admit, labs appeared hemoconcentrated. Improved with IV fluids in the ED. No further episodes of nausea or vomiting since admission. CT abdomen pelvis with oral contrast only showed moderate to abundant fecal debris within the colon, no signs of bowel obstruction, no other abnormalities. ? Patient much improved after IV fluid resuscitation. Treating possible UTI as noted below. Holding home Ozempic. Can consider starting agents for suspected constipation as needed. Continue to monitor. 2. Reported melena, concern for upper GI bleed Patient reported some dark stools at home over the week prior to admission. Hemoglobin 11.0 on admit, down trended to 9.7 with IV fluids. Baseline hemoglobin 11-12. Stool occult blood negative in ED. ? Given downtrending hemoglobin from previous baseline, have concern for possible slow upper GI bleed in setting of dual antiplatelet therapy. Gastroenterology consulted. N.p.o. at midnight. Hold home aspirin and Plavix for now. SCDs for DVT prophylaxis. IV PPI twice daily for now. Trend CBC. 3. CA Creatinine 2.02, BUN 32 on admit. Baseline creatinine 0.7-0.9. Presumed prerenal in setting of GI losses and poor p.o. intake. ? Creatinine 1.54 on 06/26 after IV fluid administration. Continue to monitor daily BMP and urine output. 4. Concern for UTI ? UA on admit showed 100 leukocyte esterase, positive nitrates, 1+ bacteria. Urine culture pending. Continue ceftriaxone for now. Chronic medical conditions: ? Type 2 diabetes mellitus: Hold home metformin and Ozempic. Sliding scale insulin while inpatient. ? Hypertension, hyperlipidemia: Holding home losartan, continue home Zetia. ? Depression: Continue home citalopram. ? CAD s/p CABG: Continue home Imdur and Zetia. Holding home aspirin Plavix as noted above. ? History of cholecystectomy DVT prophylaxis: SCDs CODE STATUS: DNR CCA, DNI Expected disposition: Home, 1 to 2 days Total clinical time spent by myself addressing the patient's medical issues, reviewing all the data, and collaborating with patient's care team: 35 minutes. Charges/Coding Visit Charges Inpatient E&M: 92566 Subs Hosp L2 06/26/23 1715 <Electronically signed by Helio Yuen DO> Cosigner Signature (if applicable): CC: ~ Signed [facility] Work Phone: [phone] Discharge summary Author Dima Henriquez [facility] June 26, 2023 12:46am Note Date/Time June 25, 2023 7: 41pm [facility] Medical Records Department [address] [place] [address] Emergency Department Summary 06/25/23 MR#: [id number] Acct: [id number] Name: ELSA PUGH Rep #:[id number] : 1955 68 From: Dima Grover PCP: Dr. Redd Linda MD Status :REG ER Location: ED HPI HPI - GI History of Present Illness Chief Complaint: Nausea/Vomiting Informant: patient Nausea/Vomiting/Emesis GI Symptom: Positive for Nausea and Vomiting Onset: Today Quality: Positive for Blood streaks; Negative for Coffee ground or Hematemesis Diarrhea/Melena/Hematochezia GI Symptom: Positive for Melena; Negative for Diarrhea or Hematochezia Onset: Days Stool Quality: Positive for Black Associated Symptoms Associated Symptoms: Positive for Hematuria; Negative for Dysuria or Frequency Narrative Narrative: Patient presents with nausea, vomiting, and melena. Patient states she has had multiple episodes of vomiting over the past week. Patient states that today shenoted some blood streaks in her emesis. Patient states she has had some black stools recently. Patient states that her urine became darker. Patient is concerned that this could be blood. Patient is currently on Plavix. Patient saw her primary care physician today who referred to the emergency department for possible gastrointestinal bleeding. [facility] Medical History Acute kidney failure Alcohol use Ambulates with cane Anemia Anxiety and depression Arthritis Atherosclerosis of coronary artery 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 Atherosclerotic heart disease of [place] coronary artery without angina pectoris Back pain Blackout Cardiology follow-up encounter Chest pain Concussion COVID CPAP (continuous positive airway pressure) dependence Diabetes Difficulty chewing Difficulty swallowing Epigastric pain Essential hypertension Former smoker Gastric reflux GERD (gastroesophageal reflux disease) Headache Hiatal hernia High cholesterol History of diverticulitis History of echocardiogram History of heart attack History of irregular heartbeat History of stress test Hyperhomocystinemia Hyperlipidemia Imbalance Injury of back Injury of head and neck Iron deficiency anemia Lymphedema Migraine headache Narcolepsy Obesity Obstructive sleep apnea Peripheral neuropathy Post-menopausal Proliferative diabetic retinopathy Restless legs Restless legs syndrome (RLS) Rheumatoid arthritis Shortness of breath on exertion Sleep apnea Type 2 diabetes mellitus Wears glasses Home Medications ascorbate calcium (vitamin C) 500 mg tablet 500 mg PO DAILY 10/26/21 [History Last Taken 05/17/23] red yeast rice 600 mg capsule 600 mg PO DAILY 10/26/21 [History Last Taken 05/17/23] pregabalin 150 mg capsule 150 mg PO BID 02/27/22 [History Last Taken 05/17/23] cholecalciferol (vitamin D3) 25 mcg (1,000 unit) capsule 25 mcg PO DAILY 06/04/22 [History Last Taken 05/17/23] ranolazine 1,000 mg tablet,extended release,12 hr 1,000 mg PO BID #180 tabs 06/25/22 [Rx Last Taken 05/17/23] nitroglycerin 0.4 mg sublingual tablet 0.4 mg sublingual Q5-15M PRN chest pain #25 tabs 10/15/22 [Rx Last Taken Unknown] metformin 500 mg tablet 1,000 mg PO BID 01/21/23 [History Last Taken 05/17/23] ezetimibe 10 mg tablet 10 mg PO DAILY 03/11/23 [History Last Taken 05/17/23] albuterol sulfate 90 mcg/actuation aerosol inhaler 1 puff inhalation Q6H PRN shortness of breath or wheezing 04/27/23 [History Last Taken Unknown] semaglutide 1 mg/dose (4 mg/3 mL) subcutaneous pen injector (Ozempic) 1 mg subcut QWEEK 04/27/23 [History Last Taken 05/16/23] aspirin 81 mg tablet,delayed release (Adult Aspirin Regimen) 81 mg PO DAILY 05/18/23 [History Last Taken 05/17/23] citalopram 40 mg tablet 20 mg PO DAILY 05/18/23 [History Last Taken 05/17/23] fenofibrate nanocrystallized 145 mg tablet 145 mg PO DAILY 05/18/23 [History Last Taken 05/17/23] losartan 50 mg tablet 50 mg PO BID #60 tabs 05/18/23 [Rx Last Taken Unknown] metoprolol succinate 25 mg tablet,extended release 24 hr 25 mg PO DAILY 05/18/23[History Last Taken 05/17/23] pantoprazole 40 mg tablet,delayed release 40 mg PO DAILY 05/18/23 [History Last Taken 05/17/23] Handicap Placard #1 ea 06/05/23 [Rx Last Taken Unknown] isosorbide mononitrate 30 mg tablet,extended release 24 hr 30 mg PO DAILY #30 tabs 06/05/23 [Rx Last Taken Unknown] isosorbide mononitrate 60 mg tablet,extended release 24 hr 60 mg PO DAILY #30 tabs 06/05/23 [Rx Last Taken Unknown] clopidogrel 75 mg tablet 75 mg PO .COMPLEX #90 tabs 06/14/23 [Rx Last Taken Unknown] Allergy/AdvReac Type Severity Reaction Status Date / Time aspirin Allergy Rash Verified 06/25/23 17:06 banana Allergy Hives Verified 06/25/23 17:06 canagliflozin [From Invokana] Allergy Anaphylaxis Verified 06/25/23 17:06 kiwi Allergy Hives Verified 06/25/23 17:06 niacin Allergy Rash Verified 06/25/23 17:06 Penicillins [PCN] Allergy Hives Verified 06/25/23 17:06 Sulfa (Sulfonamide Allergy Hives Verified 06/25/23 17:06 Antibiotics) ticagrelor AdvReac Severe Severe Verified 06/25/23 17:06 nausea and vomiting erythromycin base AdvReac Other Verified 06/25/23 17:06 [From Staticin] ethyl alcohol [From Staticin] AdvReac Other Verified 06/25/23 17:06 gemfibrozil [From Lopid] AdvReac Other Verified 06/25/23 17:06 ibuprofen AdvReac Upset Verified 06/25/23 17:06 Stomach levofloxacin [From Levaquin] AdvReac Upset Verified 06/25/23 17:06 Stomach lisinopril AdvReac cough Verified 06/25/23 17:06 propoxyphene AdvReac Upset Verified 06/25/23 17:06 [From Darvocet-N] Stomach spironolactone AdvReac hyperkalemi Verified 06/25/23 17:06 a Lprzbgc-WEI-WnZ Reductase AdvReac unknown Verified 06/25/23 17:06 Inhibitor [Bbhfkpu-Lja-Vie Reductase Inhibitor] tramadol AdvReac Other Verified 06/25/23 17:06 Family History Mother Heart disease Father Heart disease Diabetes Surgical History H/O coronary artery bypass surgery (10/2001) History of cataract surgery History of cholecystectomy History of colonoscopy with polypectomy History of coronary artery stent placement (04/30/23) History of hysterectomy History of left heart catheterization History of tonsillectomy Social History household members: spouse Smoking Status: Former smoker how long ago did patient quit smokin alcohol intake: current alcohol intake frequency: holidays/special occasions only Alcohol type: beer substance use type: does not use what type of physical activity do you participate in: walking frequency: 5-6 times per week ROS ROS ED Constitutional Constitutional ED: Denies chills or fever(s) Eyes Eyes: Denies blurry vision or change in vision ENT ENT ED: Reports rhinorrhea; Denies sore throat Cardiovascular Cardiovascular: Denies chest pain or palpitations Respiratory/Chest Respiratory/Chest: Denies cough or dyspnea Gastrointestinal Gastrointestinal: Reports melena; Denies nausea or vomiting Genitourinary Genitourinary ED: Denies dysuria or hematuria Musculoskeletal Musculoskeletal: Reports back pain and neck pain Integumentary Denies abscess or rash Neurologic Neurologic: Reports headache(s); Denies weakness Allergic/Immunologic Allergic/Immunologic ED: Denies mouth swelling or urticaria EXAM Physical Exam Const Vital Signs: 06/25/23 17:04 06/25/23 21:33 06/25/23 23:31 Temperature 98.1 F Temperature Source Temporal Pulse Rate 56 L 60 61 Respiratory Rate 16 14 Blood Pressure 216/76 H 164/87 H 157/78 H Blood Pressure Mean 122 112 104 Pulse Ox 97 97 Oxygen Delivery Method Room Air 06/25/23 23:46 06/25/23 23:47 Temperature 97.4 F L Temperature Source Temporal Pulse Rate 59 L 59 L Respiratory Rate 14 14 Blood Pressure 154/73 H 154/78 H Blood Pressure Mean 100 103 Pulse Ox 96 96 Oxygen Delivery Method Room Air Positive well nourished and well developed General Appearance ED: well developed and NAD HEENT Reports moist mucous membranes Neck supple and no JVD Resp normal respiratory effort and clear to auscultation bilaterally Cardio regular rate and regular rhythm GI non-tender, non-distended and no masses Auscultation: normoactive bowel sounds Palpation: soft Extremity full ROM General Extremety ED: Negative for edema or tenderness General Extremity: Negative for edema Neuro CN's II-XII intact bilaterally, moves all extremities and no sensory deficits noted Sensorium / Orientation: alert Motor Exam: strength 5/5 throughout Psych mental status grossly normal MDM MDM MDM Narrative Medical decision making narrative: Differential diagnosis includes coagulopathy, anemia, gastrointestinal bleeding,bowel obstruction, perforation, pancreatitis, peptic ulcer disease, duodenal ulcer, and urinary tract infection. CBC will be obtained to assess for leukocytosis and anemia. Comprehensive metabolic profile will be obtained to assess for hepatic function, renal function, and electrolyte abnormality. Lipase will be obtained to assess for pancreatitis. PT was INR and PTT will be obtained to assess for coagulopathy. Urinalysis will be obtained to assess for urinary tract infection and hematuria. CT scan of the abdomen pelvis will be obtained to assess for bowel obstruction and perforation. Stool for occult blood will be obtained to assess for gastrointestinal bleeding. Lab Data Attestation: I reviewed the patient's lab results. Lab results narrative: CBC was reviewed. There is a mild anemia with a hemoglobin of 11.0 hematocrit 34.4. This was decreased from previous result. Platelets were normal. PT was INR and PTT were reviewed and were within normal limits. Comprehensive metabolic profile was reviewed. BUN was 32 and creatinine was 2.02. These are increased from previous results. The remainder is within normal limits. Lipasewas reviewed and was normal at 43. Urinalysis was reviewed. There are positivenitrites with 5-10 white blood cells. Leukocyte esterase was 100. There is 1+ bacteria. There were no red blood cells seen noted. There is negative occult blood. Labs: Laboratory Results - last 24 hr 06/25/23 06/25/23 19:05 20:00 WBC 7.3 RBC 3.84 L Hgb 11.0 L Hct 34.4 L MCV 89.6 MCH 28.6 MCHC 32.0 RDW Std Deviation 45.5 H RDW Coeff of Nancy 14.1 Plt Count 246 MPV 11.4 Immature Gran % (Auto) 0.400 Neut % (Auto) 49.4 Lymph % (Auto) 37.4 Tyrrell % (Auto) 10.2 H Eos % (Auto) 2.2 Baso % (Auto) 0.4 Absolute Neuts (auto) 3.6 Absolute Lymphs (auto) 2.74 Nucleated RBC % 0 PT 14.0 INR 1.1 APTT 29.9 Sodium 137 Potassium 4.2 Chloride 104 Carbon Dioxide 31.0 Anion Gap 2 L BUN 32 H Creatinine 2.02 H Estim Creat Clear Calc 29.13 Est GFR (MDRD) Af Amer 31 L Est GFR (MDRD) Non-Af 26 L BUN/Creatinine Ratio 15.8 Glucose 95 Calcium 9.1 Total Bilirubin 0.40 AST 14 L ALT 19 Alkaline Phosphatase 32 L Total Protein 7.0 Albumin 3.8 Globulin 3.2 Albumin/Globulin Ratio 1.2 Lipase 43 Urine Color Yellow Urine Clarity Sl. Cloudy Urine pH 5.0 Ur Specific [place] 1.025 Urine Protein 30 H Urine Glucose (UA) Normal Urine Ketones 5 H Urine Occult Blood Negative Urine Nitrite Positive H Urine Bilirubin 1 H Urine Urobilinogen 1 H Ur Leukocyte Esterase 100 H Urine RBC 0 SEEN Urine WBC 5-10 SEEN Ur Squamous Epith Cells 0-5 SEEN Calcium Oxalate Crystal 1+ Urine Bacteria 1+ Urine Mucus 0 SEEN Radiography Diagnostic Testing: Clinical Impression(s) from Imaging Studies Abdomen CT 06/25/23 19:42 IMPRESSION: Scattered diverticulosis with no signs of diverticulitis. Moderate to abundant fecal debris within the colon, with no signs of bowel obstruction. No acute appendicitis. No free air. Status post cholecystectomy, otherwise unremarkable abdominal viscera. Electronically Signed: Shana Kim MD at 21:42 EST , CT scan of the abdomen pelvis was obtained. There is diverticulosis but no signs of diverticulitis. There is moderate amount of fecal debris within the colon. There is no evidence of bowel obstruction. There is no evidence of appendicitis. There is no free air or free fluid. This was interpreted by the radiologist and was also independently reviewed by myself. Additional Tests and Interventions Additional Tests or Interventions: Urine culture was ordered. Treatment and Re-Evaluation :: Patient was given IV fluids initially. Patient was given a dose of Tylenol for headache. Patient was advised of her findings. Patient was advised that there is no gastrointestinal bleeding noted. There is no hematuria noted. Patient was advised that there is a urinary tract infection. Patient was started on Cipro for this. Patient was given a repeat bolus of IV fluids. Patient startedon maintenance fluids. Case was discussed with the hospitalist. She will admitthe patient to her service. Patient understood and was agreeable with the plan. All questions were answered. Discharge Plan Dx/Rx/DC Orders Clinical Impression: Acute kidney injury, Urinary tract infection, Nausea and vomiting Disposition Disposition: Acute Care Hospital [facility] What to do if you have Problems For any increased pain, shortness of breath, bleeding, nausea or vomiting, chestpain, or any unexpected problems, contact your Primary Care Provider. Call [facility] ([phone]) or report to the closest Emergency Room. Call 911 if necessary. 06/26/23 0046 <Electronically signed by Dima Schwiger DO> Cosigner Signature (if applicable): CC: Dr. Redd Linda MD ~ Signed [facility] Work Phone: 1(228) 397-489112-12-2023 Instructions* Patient Instructions* Anay Lawrence APRN.CNP - 05/28/2023 11:52 AM EST BRAT DIET (may eat any of the following as tolerated) Bananas Applesauce [place] Saltine Crackers Animal Crackers Pretzels Oatmeal Unsweetened Dry Cereal (Rice Krispies, Cheerios) Plain Baked or Boiled Potato Plain White Rice Plain Noodles All clear liquid listed below CLEAR LIQUID DIET (need to drink 2 ounces total every half hour) Broth Jello Popsicles Pedialyte Gatorade NO Juices NO Milk NO Dairy Products Call if urine output is decreased or she develops dry mucous membranes, or lethargy. [facility] History of Present illness Narrative* Anay Lawrence APRN.CNP - 05/28/2023 11:39 AM EST 05/28/2023 Patient presents with: Cough: Headache, nausea and vomiting since yesterday. SUBJECTIVE: This is a 68 year old that is here today for Above Complaints. Yesterday started cough, headaches, and nausea. Vomited x1 today after eating toast. Also admits tomuscle aches, rhinorrhea and nasal congestion.Denies fevers, chills, loss of taste/smell, dyspnea, wheezing, abdominal pain or diarrhea. Not using any OTC symptoms relievers. Asking to have blood sugar checked since she has not checked in two days PAST MEDICAL HISTORY Diagnosis Date Coronary artery disease Dr. Devon BROWN (degenerative disc disease), lumbar Essential hypertension Generalized anxiety disorder 01/15/2023 Hemorrhage of rectum and anus History of colonic polyps Hyperlipidemia Hypoglycemia, unspecified Narcolepsy Sleep Medicine in [place] NSTEMI (non-ST elevated myocardial infarction) (HCC) Obesity Obstructive sleep apnea on CPAP PMH - PAST MEDICAL HISTORY OF edema Restless legs syndrome (RLS) S/P CABG x 4 2002 Statin intolerance Type 2 diabetes mellitus without retinopathy (HCC) 03/06/2016 Unspecified asthma(493.90) mild intermittent, triggered by damp weather Uterine prolapse s/p hysterectomy ALLERGIES Asa [Salicylates], Augmentin [Amoxicillin-Pot Clavulanate], Belladonna [Belladonna Alkaloids], Benazepril, Butazolidin [Phenylbutazone], Carbidopa, Darvocet-N 100 [Propoxyphene N-Acetaminophen], Doxycycline, Guaifenesin-Sodium Citrate, Ibuprofen, Levaquin [Levofloxacin], Lopid [Gemfibrozil], Niacin, Niaspan [Niacin (Antihyperlipidemic)], Penicillins, Provigil [Modafinil], Ramipril, Hoaxfbb-Gmt-Tww Reductase Inhibitors, Sulfa (Sulfonamide Antibiotics), and Tramadol MEDICATIONS Current Outpatient Medications Medication Sig isosorbide mononitrate ER (IMDUR) 60 mg 24 hr tablet ticagrelor (BRILINTA) 90 mg tablet Take 1 tablet by mouth two times a day. fenofibrate nanocrystallized (TRICOR) 145 mg tablet Take 1 tablet by mouth once daily. metoprolol succinate ER (TOPROL XL) 25 mg 24 hr tablet Take 1 tablet by mouth once daily. pantoprazole DR (PROTONIX) 40 mg tablet Take 1 tablet by mouth once daily. Take on empty stomach, 1/2 hr before meal. pregabalin (LYRICA) 150 mg capsule TAKE 1 CAPSULE BY MOUTH TWICE DAILY AT SUPPER AND BEDTIME ezetimibe (ZETIA) 10 mg tablet Take 1 tablet by mouth once daily. losartan (COZAAR) 25 mg tablet Take 0.5 tablets by mouth once daily. (Patient taking differently: Take 50 mg by mouth once daily.) semaglutide (OZEMPIC) 1 mg/dose (4 mg/3 mL) pen Inject 1 mg subcutaneously one time a week. Lancets lancets Test blood sugar(s) 2 times daily. Dx: Type 2 DM - Controlled E11.9 Insulin: No metFORMIN (GLUCOPHAGE) 1,000 mg tablet Take 1 tablet by mouth twice daily with meals. CPAP/BIPAP/OTHER Formal mask fitting to consider smaller FFM like dreamwear due to dry eyes and supplies for bipap 13/8cmH2O DME [employer] CPAP/BIPAP/OTHER Replacement auto bipap 13/8 with PS of 5cmH2O DME [employer] CPAP/BIPAP/OTHER Settings decrease to autobipap 13/8cmH2O DME [employer] red yeast rice 600 mg tab nitroglycerin sublingual (NITROQUICK) 0.4 mg SL tablet Dissolve 0.4 mg under the tongue. MAGNESIUM ORAL Take 300 mg by mouth twice daily. some days takes three tablets citalopram 40 mg tablet Take 1 tablet by mouth once daily. ranolazine ER (RANEXA) 500 mg 12 hr tablet Take 1,000 mg by mouth twice daily. aspirin, enteric coated (ASPIRIN, ENTERIC COATED) 81 mg EC tablet Take 1 tablet by mouth once daily. ACCU-CHEK FASTCLIX LANCET DRUM lancets 1 Each two times a day. ACCU-CHEK SMARTVIEW TEST STRIP test strip 1 Strip two times a day. blood sugar diagnostic (BLOOD GLUCOSE TEST) test strip Test blood sugar(s) 2 times daily. Dx: Type 2 DM - Controlled E11.9 Insulin: No promethazine (PHENERGAN) 25 mg tablet Take 1 tablet by mouth every 6 hours as needed for nausea/vomiting. cholecalciferol (VITAMIN D-3) 50 mcg (2,000 unit) tablet Take 2,000 Units by mouth once daily. BIPAP DME change for supplies. Pt has a [employer] Auto BiPAP IPAP max 18, EPAP min 6 CM H2O, PS 5 cmH2O. mask, filters, heated humidity & tubing, [employer] supplies. LADAN G47.33 ascorbic acid, vitamin C, (VITAMIN C) 500 mg tablet Take 500 mg by mouth daily at bedtime. No current facility-administered medications for this visit. Medications and allergies reviewed by this provider. SOCIAL HISTORY Social History Tobacco Use Smoking status: Former Packs/day: 0.50 Years: 27.00 Additional pack years: 0.00 Total pack years: 13.50 Types: Cigarettes Quit date: 1997 Years since quittin.9 Smokeless tobacco: Never Vaping Use Vaping Use: Never used Substance Use Topics Alcohol use: Yes Comment: 2-3 drinks per month Drug use: No REVIEW OF SYSTEMS All other reviewed and negative other than HPI. OBJECTIVE: BP 96/56 Pulse (!) 53 Temp 36.2 C (97.2 F) Resp 18 Wt 90 kg (198 lb 6.4 oz) SpO2 96% BMI 32.02 kg/m . Vital signs reviewed by this provider. APPEARANCE Well appearing, alert, in no acute distress, well-hydrated, well nourished. EYES PERRLA, conjunctiva and sclera normal. EARS External ears normal, canals clear THROAT normal, no erythema NECK Supple, no adenopathy; thyroid symmetric, normal size, no bruits HEART RRR with normal S1 and S2, no murmurs, no gallops, no JVD appreciated LUNG clear to auscultation. No wheezes, rhonchi or rales ABDOMEN bowel sounds normoactive, no bruits, soft, non-tender, non-distended, no rebound tendernessor guarding SKIN Skin color, texture, turgor normal, no suspicious rashes or lesions to exposed skin Urine Albumin:Creatinine Ratio Never done Dilated Retinal Exam due on 03/06/2017 Advance Directive Discussion Never done DTaP,Tdap,Td Vaccine(2 - Tdap) due on 12/04/2023 Colorectal Cancer Screening due on 12/04/2023 Shingrix Vaccine(1 of 2) due on 12/04/2023 Hepatitis C Screening due on 04/10/2024 Covid-19 Vaccine(3 - 2022- season) due on 04/10/2024 Pneumococcal Vaccine: 65+(3 - PPSV23 or PCV20) due on 09/15/2023 HbA1C due on 10/29/2023 Mammogram Screening due on 12/13/2023 Diabetic Foot Exam due on 02/21/2024 LDL Cholesterol due on 04/30/2024 Annual PCP Team Chronic Disease Visit due on 05/28/2024 BP Controlled (<130/80) due on 05/28/2024 Bone Density Screening Completed Influenza Vaccine Completed Depression Assessment Completed RSV Vaccine Completed ASSESSMENT/PLAN: 1. Nausea and vomiting, unspecified vomiting type - ICD9: 787.01, ICD10: R11.2 (primary diagnosis) - no red flag symptoms or exam findings - red flag symptoms discussed, verbalizes understanding - BRAT diet - PROMETHAZINE 25 MG TABLET- has taken before. Discussed may cause drowsiness so she should not drive or operate heavy machinery while taking - COVID & INFLUENZA A/B & RSV NAAT, ROUTINE - follow-up if fail to improve to ER with red flag symptoms 2. Type 2 diabetes mellitus without retinopathy (HCC) - ICD9: 250.00, ICD10: E11.9 - ACCUCHECK B/O 3. Acute cough - ICD9: 786.2, ICD10: R05.1 - no red flag symptoms or exam findings - red flag symptoms discussed - may take OTC cough and cold medications as directed on packaging - COVID & INFLUENZA A/B & RSV NAAT, ROUTINE - follow-up if symptoms fail to improve to ER with red flag symptoms 4. Headache, unspecified headache type - ICD9: 784.0, ICD10: R51.9 - no red flag symptoms or exam findings - red flag symptoms discussed - may use OTC pain relievers as directed on packaging - COVID & INFLUENZA A/B & RSV NAAT, ROUTINE - follow-up if symptoms fail to improve to ER with red flag symptoms Anay Lawrence APRN.[employer] Prescription instructions reviewed with patient as applicable. Patient advised if symptoms do not improve or if symptoms worsen sooner, to contact their primary care physician. Potential red flag symptoms discussed with the patient. Reviewed appropriate action plan to take if red flag symptoms occur. Patient agreeable to treatment plan. I spent a total of 25 minutes on the date of the service which included preparing to see the patient, [id number] patient care, completing clinical documentation, obtaining and/or reviewing separately obtained history, performing a medically appropriate examination, counseling and educating the pat ient/family/caregiver, and ordering medications, tests, or procedures. ' documented in this [facility]12-01-2023 Miscellaneous Notes* Telephone Encounter - Maddison Mullen RN - 05/17/2023 8:32 AM EST Patient call in for shortness of breath when resting. Patient has had shortness of breath since heart surgery 2 weeks ago. Shortness of breath is getting worse. Nurse Triage assessment completed with protocol recommending for disposition of Go to ED now. Care advice reviewed with patient, patient stated understanding. Reason for Disposition [1] MODERATE difficulty breathing (e.g., speaks in phrases, SOB even at rest, pulse 100-120) AND [2] NEW-onset or WORSE than normal Answer Assessment - Initial Assessment Questions 1. RESPIRATORY STATUS Shortness of Breath 2. ONSET: Happening since came home from hospital; a Couple of weeks 3. PATTERN Constant 4. SEVERITY: Moderate; Patient had to take CPAP off 5. RECURRENT SYMPTOM: Yes but not just this bad 6. CARDIAC HISTORY: 3 stents placed due Heart attack 7. LUNG HISTORY: Denies Lung history 8. CAUSE: Unsure 9. OTHER SYMPTOMS: Dizziness, runny nose. 10. O2 SATURATION MONITOR: Does not have pulsox. Protocols used: Breathing [id number] documented in this [facility]11-29-2023 Telephone encounter Note * Telephone Encounter - COOPER Ortega CNP - 05/15/2023 3:02 PM EST Left voicemail with stable BMP/CBC results. Instructed to continue her current medications and follow-up with Dr. Greene as scheduled. [phone] Miscellaneous Notes* Telephone Encounter - COOPER Ortega CNP - 05/15/2023 3:02 PM EST Left voicemail with stable BMP/CBC results. Instructed to continue her current medications and follow-up with Dr. Greene as scheduled. documented in this [facility]11-21-2023 History of Present illness Narrative* Gabriela Linda MD - 05/07/2023 12:59 PM EST Chief Complaint No chief complaint on file. HPI Elsa Pugh is a 68 year old female who presents here today for Hospital Discharge Follow up.. Patient admitted to [facility] from 04/27 to 04/29 for NSTEMI after presenting with chest pain radiation to back and shoulders similar to previous angina. Admitted on heparin drip and was evaluated by cardiology who obtained heart cath on which showed severe atherosclerosis with in stent restenosis of SVG graft as we as lesion at the distal part of vein graft. Recommended transfer to [facility] for complex PCI vs CABG. Hospital course from [facility]: Elsa Pugh is a 68 y.o. female with history of prior CABG in 2000 with subsequent PCI in 2019 with overlap LENA to SVG to RPDA who presented to [facility] with new anginal chest discomfort and small non-STEMI with elevated high-sensitivity troponin. Subsequently transferred to [facility] on 04/29/2023 and was admitted for NSTEMI with evidence of critical in-stent restenosis within prior SVG toRPDA. 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 Also revealed significant lesion in SVG to RCA and sequential rPDA. She was subsequently transferred to [facility] for possible PCI to vein graft. On 04/30; Patient underwent successful PCI of SVG to RPDA with 2 LENA implanted (proximal and distal graft) using distal embolic protection. Remainder of hospital course unremarkable. Was discharged home in stable condition. She will continue on DAPT (ASA 1 mg, Brilinta 90 mg twice daily), losartan 50 mg daily, Zetia 10 mg daily, Tricor 145 mg daily, metoprolol succinate 25 mg daily. Will follow-up with cardiology on outpatient basis. Since discharge, has not had any recurrent chest pain, palpitations, LE edema, worsening SOB, bleeding or bruising symptoms. Has not needed her nitro since she has been discharged home. Taking her regimen as prescribed. Has had some nausea with a couple episodes of vomiting, but was told to continue this regimen after speaking with cardiology. Patient had f/u with [facility] Cardiology yesterday with recommendation to continue ASA and Brilinta x1 year along with Toprol, Zeita, and fenofibrate as she is intolerant to statins. Recommended cardiac rehab and repeat labs. F/u with [facility] cardiology in 1 month to consider PCSK9 inhibitor. Has appointment with their office on 06/06. Patient has not set up cardiac rehab yet. Has orders for blood work from cardiology yesterday, but has not completed it yet. Did not need home health care on discharge. Eating low sodium diet. Checking BP at home with readings in the 100-110's/50's. Admits to some lightheadedness without syncope. Past medical history, appointments, medications, allergies reviewed. Previous Medical History PAST MEDICAL HISTORY Diagnosis Date Coronary artery disease Dr. Osorio DDD (degenerative disc disease), lumbar Essential hypertension Generalized anxiety disorder 01/15/2023 Hemorrhage of rectum and anus History of colonic polyps Hyperlipidemia Hypoglycemia, unspecified Narcolepsy Sleep Medicine in [place] NSTEMI (non-ST elevated myocardial infarction) (HCC) Obesity Obstructive sleep apnea on CPAP PMH - PAST MEDICAL HISTORY OF edema Restless legs syndrome (RLS) S/P CABG x 4 2001 Statin intolerance Type 2 diabetes mellitus without retinopathy (HCC) 03/06/2016 Unspecified asthma(493.90) mild intermittent, triggered by damp weather Uterine prolapse s/p hysterectomy Previous Surgical History PAST SURGICAL HISTORY Procedure Laterality Date COLONOSCOPY FLX DX W/COLLJ SPEC WHEN PFRMD 10/16/2003 Colonoscopy ESOPHAGOGASTRODUODENOSCOPY TRANSORAL DIAGNOSTIC 10/16/2003 EGD LAPS ABD PRTM&OMENTUM DX W/WO SPEC BR/WA SPX Laparoscopy PAST SURGICAL HISTORY OF 01/15/2015 4 new stents were placed PAST SURGICAL HISTORY OF 17 stents PAST SURGICAL HISTORY OF 2001 CABGx4 TONSILLECTOMY PRIMARY/SECONDARY <AGE 11 Tonsillectomy TOTAL ABDOMINAL HYSTERECT W/WO RMVL TUBE OVARY Hysterectomy, ZAKI Family History FAMILY HISTORY Problem Relation Age of Onset other (colon polyps) Father Diabetes Father Heart disease Father Diabetes Sister other (rheumatoid arthritis) Sister Anxiety disorder Sister Heart Attack Sister No Known Problems Maternal Grandmother No Known Problems Maternal Grandfather No Known Problems Paternal Grandmother No Known Problems Paternal Grandfather Drug abuse Son No Known Problems Daughter Patient Allergies ALLERGIES Allergen Reactions Asa [Salicylates] Vomiting Augmentin [Amoxicil* GI Upset Bacol [Other] Belladonna [Bellado* Intolerance GI upset Benazepril Cough Sep 2005 Butazolidin [Other] Carbidopa Darvocet-N 100 [Pro* Intolerance HEADACHE Guaifenesin-Sodium * Ibuprofen Rash Levaquin [Levofloxa* Other: See Comments Hallucinations anxiety numbness tingling Lopid [Gemfibrozil] Niacin Niaspan [Niacin (An* Penicillins Hives Provigil [Modafinil] Mental Status Change hallucinations Ramapril [Other] Trwhnkd-Qxn-Idv Red* Myalgia Sulfa (Sulfonamide * Tramadol Other: See Comments stroke like symptoms Current Medications Current Outpatient Medications on File Prior to Visit Medication Sig pregabalin (LYRICA) 150 mg capsule TAKE 1 CAPSULE BY MOUTH TWICE DAILY AT SUPPER AND BEDTIME ezetimibe (ZETIA) 10 mg tablet Take 1 tablet by mouth once daily. losartan (COZAAR) 25 mg tablet Take 0.5 tablets by mouth once daily. ACCU-CHEK FASTCLIX LANCET DRUM lancets 1 Each two times a day. semaglutide (OZEMPIC) 1 mg/dose (4 mg/3 mL) pen Inject 1 mg subcutaneously one time a week. ACCU-CHEK SMARTVIEW TEST STRIP test strip 1 Strip two times a day. blood sugar diagnostic (BLOOD GLUCOSE TEST) test strip Test blood sugar(s) 2 times daily. Dx: Type 2 DM - Controlled E11.9 Insulin: No Lancets lancets Test blood sugar(s) 2 times daily. Dx: Type 2 DM - Controlled E11.9 Insulin: No promethazine (PHENERGAN) 25 mg tablet Take 1 tablet by mouth every 6 hours as needed for nausea/vomiting. metFORMIN (GLUCOPHAGE) 1,000 mg tablet Take 1 tablet by mouth twice daily with meals. cholecalciferol (VITAMIN D-3) 50 mcg (2,000 unit) tablet Take 2,000 Units by mouth once daily. CPAP/BIPAP/OTHER Formal mask fitting to consider smaller FFM like dreamwear due to dry eyes and supplies for bipap 13/8cmH2O DME [facility] CPAP/BIPAP/OTHER Replacement auto bipap 13/8 with PS of 5cmH2O DME [employer] CPAP/BIPAP/OTHER Settings decrease to autobipap 13/8cmH2O DME [employer] BIPAP DME change for supplies. Pt has a Resmed Auto BiPAP IPAP max 18, EPAP min 6 CM H2O, PS 5 cmH2O. mask, filters, heated humidity & tubing, [employer] supplies. LADAN G47.33 red yeast rice 600 mg tab ascorbic acid, vitamin C, (VITAMIN C) 500 mg tablet Take 500 mg by mouth daily at bedtime. nitroglycerin sublingual (NITROQUICK) 0.4 mg SL tablet Dissolve 0.4 mg under the tongue. MAGNESIUM ORAL Take 300 mg by mouth twice daily. some days takes three tablets citalopram 40 mg tablet Take 1 tablet by mouth once daily. ranolazine ER (RANEXA) 500 mg 12 hr tablet Take 1,000 mg by mouth twice daily. PLAVIX 75 MG TAB Take one(1) tablet daily. No current facility-administered medications on file prior to visit. Social History Social History Tobacco Use Smoking status: Former Packs/day: 0.50 Years: 27.00 Additional pack years: 0.00 Total pack years: 13.50 Types: Cigarettes Quit date: 1997 Years since quittin.9 Smokeless tobacco: Never Vaping Use Vaping Use: Never used Substance Use Topics Alcohol use: Yes Comment: 2-3 drinks per month Drug use: No Review of Symptoms REVIEW OF SYSTEMS See HPI EXAM: BP 108/60 Pulse 75 Resp 16 Wt 87.6 kg (193 lb 3.2 oz) SpO2 98% BMI 31.18 kg/m General Appearance: Well appearing, alert, in no acute distress, well-hydrated, well nourished.. Skin: Skin color, texture, turgor normal, no suspicious rashes or lesions. Lungs: Lungs clear to auscultation. No wheezing, rhonchi, rales.. Heart: RRR without murmur, gallop, or rubs. No ectopy. Abdomen: Normal abdominal exam, Abdomen soft, non-tender. Bowel sounds normal. No masses, organomegaly. Extremities: No deformities, edema, skin discoloration, clubbing or cyanosis. Good capillary refill. . Health Maintenance List Urine Albumin:Creatinine Ratio Never done Dilated Retinal Exam due on 03/06/2017 Advance Directive Discussion Never done DTaP,Tdap,Td Vaccine(2 - Tdap) due on 12/04/2023 Colorectal Cancer Screening due on 12/04/2023 Shingrix Vaccine(1 of 2) due on 12/04/2023 Hepatitis B Vaccine(1 of 3 - Risk 3-dose series) due on 04/10/2024 Hepatitis C Screening due on 04/10/2024 Covid-19 Vaccine(3 - season) due on 04/10/2024 Pneumococcal Vaccine: 65+(3 - PPSV23 or PCV20) due on 09/15/2023 HbA1C due on 10/29/2023 Mammogram Screening due on 12/13/2023 Diabetic Foot Exam due on 02/21/2024 Annual PCP Team Chronic Disease Visit due on 04/10/2024 BP Controlled (<130/80) due on 04/10/2024 LDL Cholesterol due on 04/30/2024 Bone Density Screening Completed Influenza Vaccine Completed Depression Assessment Completed RSV Vaccine Completed ASSESSMENT/PLAN: 1. NSTEMI (non-ST elevated myocardial infarction) (HCC) - ICD9: 410.70, ICD10: I21.4 (primary diagnosis) Asymptomatic since PCI with stent x 3. Continue current regimen. F/u with cardiology as scheduled. Red flags for re-assessment reviewed with patient in detail. 2. History of percutaneous coronary intervention - ICD9: V15.1, ICD10: Z98.61 See above. 3. Coronary artery disease of [place] artery of [place] heart with stable angina pectoris (HCC) - ICD9: 414.01, 413.9, ICD10: I25.118 See above. 4. S/P CABG x 4 - ICD9: V45.81, ICD10: Z95.1 See above. 5. Essential hypertension - ICD9: 401.9, ICD10: I10 - Controlled - Continue current medications - Recommend home blood pressure monitoring, to bring results to next visit - Encouraged sodium restriction, DASH or Mediterranean diet - Recommend regular aerobic exercise 6. Mixed hyperlipidemia - ICD9: 272.2, ICD10: E78.2 - Control undetermined, due for labs - Continue current medications - Counseled on healthy diet and regular exercise 7. Statin intolerance - ICD9: 995.27, ICD10: Z78.9 Gabriela Linda MD [facility] Evaluation + Plan note* Assessment & Plan Note - COOPER Ortega CNP - 05/06/2023 12:02 PM ESTAssociated Problem(s): Hyperlipidemia Goal LDL less than 70. LDL 84, April 2023. -Intolerant to statins -Continue Zetia and fenofibrate -Consider Praluent or Repatha, will defer to Dr. Osorio (her primary business lawyer) [id number] Miscellaneous Notes* Assessment & Plan Note - COOPER Ortega CNP - 05/06/2023 12:02 PM ESTAssociated Problem(s): Hyperlipidemia Goal LDL less than 70. LDL 84, April 2023. -Intolerant to statins -Continue Zetia and fenofibrate -Consider Praluent or Repatha, will defer to Dr. Osorio (her primary business lawyer) * Assessment & Plan Note - COOPER Ortega CNP - 05/06/2023 12:01 PM ESTAssociated Problem(s): Essential hypertension Controlled. BP on the lower side today, but has been controlled at home. -Continue Toprol, losartan -If BP remains low, would decrease losartan dosing * Assessment & Plan Note - COOPER Ortega CNP - 05/06/2023 11:59 AM ESTAssociated Problem(s): Coronary artery disease involving [place] coronary artery of [place] heart without angina pectoris History of CABG in 2000 with subsequent PCI in 2019 with overlapping LENA to saphenous vein graft toPDA. Recent small non-STEMI with LENA x3 to saphenous vein graft of PDA for severe in-stent restenosis. Stable CAD in remaining vessels with OPERATING COST CLERK of [place] proximal RCA, mid LAD and radial artery graftto OM. Mild disease of left main, circumflex, proximal LAD and D1 branch with patent YATES graft to D1. EF preserved. No angina. -Continue aspirin and Brilinta for minimum of 1 year, may not be held with cardiology clearance -Continue Toprol, Zetia, fenofibrate -Intolerant to statins -CBC and BMP ordered today -Cardiac rehab documented in this [facility]11-20-2023 Evaluation + Plan note* Assessment & Plan Note - COOPER Ortega CNP - 05/06/2023 12:01 PM ESTAssociated Problem(s): Essential hypertension Controlled. BP on the lower side today, but has been controlled at home. -Continue Toprol, losartan -If BP remains low, would decrease losartan dosing [facility] [id number] Evaluation + Plan note* Assessment & Plan Note - COOPER Ortega CNP - 05/06/2023 11:59 AM ESTAssociated Problem(s): Coronary artery disease involving [place] coronary artery of [place] heart with out angina pectoris History of CABG in 1999 with subsequent PCI in 2019 with overlapping LENA to saphenous vein graft toPDA. Recent small non-STEMI with LENA x3 to saphenous vein graft of PDA for severe in-stent restenosis. Stable CAD in remaining vessels with OPERATING COST CLERK of [place] proximal RCA, mid LAD and radial artery graftto OM. Mild disease of left main, circumflex, proximal LAD and D1 branch with patent YATES graft to D1. EF preserved. No angina. -Continue aspirin and Brilinta for minimum of 1 year, may not be held with cardiology clearance -Continue Toprol, Zetia, fenofibrate -Intolerant to statins -CBC and BMP ordered today -Cardiac rehab [facility] [id number] History of Present illness Narrative* COOPER Ortega CNP - 05/06/2023 11:00 AM EST Images from the original note were not included. [facility] [address] [place] [address] [address] [facility] [id number] Dept: [phone] Dept Visit type: Established : 1955 Reason for Visit: Hospital Follow-up Assessment and Plan 1. Coronary artery disease involving [place] coronary artery of [place] heart without angina pectoris Assessment & Plan: History of CABG in 1999 with subsequent PCI in 2019 with overlapping LENA to saphenous vein graft toPDA. Recent small non-STEMI with LENA x3 to saphenous vein graft of PDA for severe in-stent restenosis. Stable CAD in remaining vessels with OPERATING COST CLERK of [place] proximal RCA, mid LAD and radial artery graftto OM. Mild disease of left main, circumflex, proximal LAD and D1 branch with patent YATES graft to D1. EF preserved. No angina. -Continue aspirin and Brilinta for minimum of 1 year, may not be held with cardiology clearance -Continue Toprol, Zetia, fenofibrate -Intolerant to statins -CBC and BMP ordered today -Cardiac rehab Orders: - ECG 12 lead - CLINIC PERFORMED - CBC auto differential - Basic metabolic panel 2. History of coronary artery bypass surgery 3. Stented coronary artery 4. Essential hypertension Assessment & Plan: Controlled. BP on the lower side today, but has been controlled at home. -Continue Toprol, losartan -If BP remains low, would decrease losartan dosing 5. Pure hypercholesterolemia Assessment & Plan: Goal LDL less than 70. LDL 84, April 2023. -Intolerant to statins -Continue Zetia and fenofibrate -Consider Praluent or Repatha, will defer to Dr. Osorio (her primary business lawyer) 6. Hospital discharge follow-up Follow up if symptoms worsen or fail to improve. She will follow-up with Dr. Osorio, her primary business lawyer in [place] next month as scheduled. Subjective History of CAD status post CABG in 1999 with subsequent PCI in 2019 with overlapping LENA to saphenous vein graft to PDA, diabetes, hypertension, hyperlipidemia She recently was admitted to [facility] with shortness of breath and nausea. She was found tohave a non-STEMI with elevated high-sensitivity troponin. She also had viral respiratory symptoms. She had a cath at [place] which showed severe in-stent restenosis of saphenous vein graft to PDA andstable CAD in remaining vessels with OPERATING COST CLERK of [place] proximal RCA, mid LAD and radial artery graft toOM. There was mild disease of the left main, left circumflex, proximal LAD and D1 branch with patent YATES graft to the D1. She was transferred to [facility] and underwent successful PCI of saphenous vein graft to PDA with 3 drug-eluting stents (proximal, mid and distal graft) using distal embolic pr otection. She had an echocardiogram which showed preserved ejection fraction of 72% with mild tricuspid insufficiency. She previously had been intolerant to full dose aspirin and had been maintained on Plavix for her antiplatelet. She was started on aspirin 81 mg p.o. daily and Brilinta 90 mg p.o. twice daily with loading dose. She is intolerant to statins and she was continued on her Zetia and Tricor was added to her regimen. Her losartan was increased for elevated blood pressure. She presentstoday for hospital follow-up. She will follow long- term with Dr. Osorio in [place]. Today, she states she feels better than she did last week, but feels she is only slowly improving. She still has lingering viral respiratory symptoms. She was positive for rhinovirus while she was hospitalized. She still has some residual nasal congestion and scratchy throat. She notes some left-sided sharp chest pain which she describes as a pinch. This occurs randomly and can come on with exertion or rest. It only lasts 1 second. This is not typical of angina. Her shortness of breath is slowly improving. She notes some dizziness and lightheadedness. Some nausea and she had 1 episode of vomiting. She thinks this is from all the medication she is taking. She denies PND, orthopnea, edema, pal pitations or syncope. Elsa Pugh Review of Systems Constitutional: Negative for activity change, chills, diaphoresis, fatigue and fever. HENT: Positive for congestion. Negative for nosebleeds and trouble swallowing. Eyes: Negative for visual disturbance. Respiratory: Positive for shortness of breath (constant, feels like she can't get enough air) and wheezing (improves with inhaler). Negative for apnea, cough and chest tightness. Cardiovascular: Positive for chest pain (random pinching in left side of chest, only lasting 1 sec and not associated with exertion). Negative for palpitations and leg swelling. Gastrointestinal: Positive for nausea and vomiting (occasional). Negative for abdominal distention,abdominal pain, blood in stool and diarrhea. Genitourinary: Negative for hematuria. Musculoskeletal: Negative for gait problem and myalgias. Skin: Negative for color change and rash. Neurological: Positive for dizziness, light-headedness and headaches. Negative for syncope, speech difficulty and weakness. Hematological: Bruises/bleeds easily. Psychiatric/Behavioral: Negative for dysphoric mood. Allergies Allergen Reactions Tramadol Other Stroke like symptoms Aspirin Nausea And Vomiting Full-dose aspirin a few days in a row made her stomach upset Statins Other myalgias Propoxyphene Other reaction(s): Upset Stomach Spironolactone Other reaction(s): hyperkalemia Hyperkalemia at high dose with febrile illness. Sulfa Antibiotics Other reaction(s): Hives Penicillins Hives and Rash Other reaction(s): Rash Outpatient Medications Prior to Visit Medication Sig Dispense Refill albuterol 108 (90 Base) MCG/ACT inhaler Inhale 2 puffs every 6 hours as needed for wheezing. ascorbic acid (Vitamin C) 500 MG tablet Take 500 mg by mouth daily at bedtime. aspirin 81 MG EC tablet Take 1 tablet (81 mg) by mouth daily. 30 tablet 11 cholecalciferol (Vitamin D-3) 50 MCG (2000 UT) tablet Take 2,000 Units by mouth in the morning. citalopram (CeleXA) 20 MG tablet Take 1 tablet (20 mg) by mouth in the morning. 30 tablet 11 ezetimibe (Zetia) 10 MG tablet Take 1 tablet (10 mg) by mouth Nightly. 30 tablet 11 fenofibrate (Tricor) 145 MG tablet Take 1 tablet (145 mg) by mouth daily. 30 tablet 1 glucose blood (Accu-Chek SmartView) test strip 1 strip by Other route in the morning and 1 strip inthe evening. losartan (Cozaar) 50 MG tablet Take 1 tablet (50 mg) by mouth daily. Do not start before May 02, 2023. 30 tablet 11 metFORMIN (Glucophage) 1000 MG tablet Take 1 tablet (1,000 mg) by mouth in the morning and 1 tablet(1,000 mg) in the evening. Take with meals. Do not start before May 02, 2023. 60 tablet 5 metoprolol succinate XL (Toprol-XL) 25 MG 24 hr tablet Take 1 tablet (25 mg) by mouth daily. Do notcrush or chew. 30 tablet 11 nitroglycerin (Nitrostat) 0.[address] 0.4 mg under the tongue every 5 minutes as needed for chest pain. pantoprazole (ProtoNix) 40 MG EC tablet Take 1 tablet (40 mg) by mouth daily. Do not crush, chew, or split. 30 tablet 1 pregabalin (Lyrica) 150 MG capsule TAKE 1 CAPSULE BY MOUTH TWICE DAILY AT SUPPER AND BEDTIME Red Yeast Rice Extract 600 MG tablet Respiratory Therapy Supplies (CareTouch CPAP & BIPAP Hose) [facility] Formal mask fitting to considersmaller FFM like dreamwear due to dry eyes and supplies for bipap 13/8cmH2O DME [employer] semaglutide (Ozempic) 4 MG/3ML solution pen-injector 1 mg. ticagrelor (Brilinta) 90 MG tablet Take 1 tablet (90 mg) by mouth 2 times daily. 60 tablet 11 promethazine (Phenergan) 25 MG tablet Take 25 mg by mouth every 6 hours as needed. No facility-administered medications prior to visit. Past Medical History: Diagnosis Date Arthritis Asthma Coronary artery disease Diabetes mellitus (HCC) Esophageal reflux 02/08/2006 Essential hypertension 02/08/2006 Last Assessment & Plan: Her bloodpressure is well controlled on current medical therapy. History of coronary artery bypass surgery 06/17/2001 History of transfusion Hyperlipidemia 02/08/2006 Last Assessment & Plan: She is apparently intolerant to all statin medications. She is on red yeast rice. This is being followed by primary care. Hypertension Iron deficiency anemia 04/29/2023 Lymphedema 04/29/2023 NSTEMI (non-ST elevated myocardial infarction) (CMS/HCC) ([facility]) 04/29/2023 Obstructive sleep apnea syndrome 03/31/2014 Compliant. Last Assessment & Plan: She remains compliant with CPAP. Sheis followed by sleep medicine. DME [employer] Neck: 16 inches Stenosis of carotid artery 04/29/2023 Type 2 diabetes mellitus without retinopathy (CMS/HCC) ([facility]) 03/06/2016 Social History Tobacco Use Smoking status: Never Smokeless tobacco: Never Substance Use Topics Alcohol use: Yes Alcohol/week: 1.0 standard drink of alcohol Types: 1 Glasses of wine per week Past Surgical History: Procedure Laterality Date CARDIAC CATHETERIZATION N/A 04/30/2023 Performed by Carina Nieto MD at [facility] Cardiac Cath/EP Lab CARDIAC CATHETERIZATION N/A 04/30/2023 Performed by Carina Nieto MD at [facility] Cardiac Cath/EP Lab EYE SURGERY HYSTERECTOMY TONSILLECTOMY Family History Problem Relation Name Age of Onset No Known Problems Mother No Known Problems Father Objective Vitals: 05/06/23 1111 BP: 100/52 BP Location: Left arm Patient Position: Sitting BP Cuff Size: Adult Pulse: 52 Resp: 15 Weight: 194 lb (88 kg) Height: 5' 5 (1.651 m) Physical Exam Vitals reviewed. Constitutional: Appearance: Normal appearance. HENT: Head: Normocephalic and atraumatic. Mouth/Throat: Mouth: Mucous membranes are moist. Pharynx: Oropharynx is clear. Eyes: General: No scleral icterus. Extraocular Movements: Extraocular movements intact. Neck: Vascular: No carotid bruit, hepatojugular reflux or JVD. Cardiovascular: Rate and Rhythm: Normal rate and regular rhythm. Pulses: Normal pulses. Dorsalis pedis pulses are 2+ on the right side. Heart sounds: Normal heart sounds, S1 normal and S2 normal. No murmur heard. Comments: Right femoral postprocedure site without ecchymosis, hematoma, pain. No bleeding. No thrill or bruit. Pulses intact. Pulmonary: Effort: Pulmonary effort is normal. Breath sounds: Normal breath sounds. Abdominal: General: Abdomen is flat. Bowel sounds are normal. There is no distension. Palpations: Abdomen is soft. Tenderness: There is no abdominal tenderness. Musculoskeletal: Right lower leg: No edema. Left lower leg: No edema. Skin: General: Skin is warm and dry. Neurological: Mental Status: She is alert and oriented to person, place, and time. Psychiatric: Attention and Perception: Attention normal. Mood and Affect: Mood normal. Speech: Speech normal. Cognition and Memory: Cognition normal. Data Reviewed and Summarized EF BP Date Value Ref Range Status 05/01/2023 72 55 - 100 % Final Review of tests/labs done/ordered within my specialty: EKG in office: Sinus bradycardia with heart rate 52. QTc 478 ms. Review of tests/labs done/ordered outside my specialty: Independent interpretation of tests: COOPER Ortega CNP documented in this [facility]11-17-2023 Telephone encounter Note* Telephone Encounter - COOPER Cardenas CNP - 05/03/2023 10:00 AM EST Patient called AMI line with vomiting this morning. She was a little nauseated and are cereal. She took her medications and there were no pills seen in vomit. Advised to sip fluids and try small, bland foods and see if this helps. She understands importance of taking DAPT and will continue to monitor. She was agreeable to plan. [facility] [employer] Phone: [phone] 230-982611-17-2023 Miscellaneous Notes* Telephone Encounter - COOPER Cardenas CNP - 05/03/2023 10:00 AM EST Patient called AMI line with vomiting this morning. She was a little nauseated and are cereal. She took her medications and there were no pills seen in vomit. Advised to sip fluids and try small, bland foods and see if this helps. She understands importance of taking DAPT and will continue to monitor. She was agreeable to plan. documented in this [facility]11-16-2023 Miscellaneous Notes* Telephone Encounter - Ann Oakley - 05/02/2023 4:11 PM EST Physician: Marcos Delgado Call from patient requesting refill. Please E-Scribe Last office visit 02/13/23 with Marcos Delgado in person Next office visit 06/13/23 with Jenna Reyes in person Requested Prescriptions Pending Prescriptions Disp Refills pregabalin (LYRICA) 150 mg capsule 180 capsule 0 Sig: TAKE 1 CAPSULE BY MOUTH TWICE DAILY AT SUPPER AND BEDTIME Pharmacy Name: [facility] Note Attestation signed by Chris Licona MD at 05/01/2023 3:00 PM I personally saw and evaluated this patient prior to discharge. I examined the patient, reviewed the meds and the follow-up information. I was personally involved in, and initiated the medical therapy to be used at discharge and the follow-up to be done. 68 y.o. 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 Mild disease of left main, circumflex, proximal LAD and D1 branch with patent YATES graft to D1 as well. Patient underwent successful PCI of SVG to [facility] yesterday with 3 LENA implanted (proximal, mid, and distal graft) using distal embolic protection. No significant no reflow. Patient tolerated well. Doing well post PCI today with no bleeding from right femoral site. No angina or shortness of breath. Groin soft with no hematoma. Lungs clear. Labs reviewed and appear stable with creatinine 0.6, normal blood counts, and normal potassium. Echo reviewed showing normal EF of 72% with mild tricuspid insufficiency. Patient stable for discharge to home today. Tolerating DAPT with aspirin and Brilinta in place of Plavix. Starting PPI given history of GI issues with full dose aspirin in the past. Continue Zetia and add Tricor for hypertriglyceridemia. Intolerant to statins. Continue beta-alexandra and ARB. Outpatient discussion of PCSK9 inhibitor. Patient will have postintervention [facility] SUSTAIN[facility] COMMUNICATOR follow-up, and will then follow-up with outpatient business lawyer Dr. Osorio in [place]. Update given to Dr. Osorio. Greater than 30 minutes spent on the discharge planning of the patient. Chris Licona MD [facility] [place] [facility] CCU DISCHARGE SUMMARY Patient Name: Elsa Pugh : 1955 Admit Date: 04/29/2023 Discharge Date: 05/01/23 PCP: Gabriela Linda MD Visit Status: Admission Code Status: Full Code Discharge Diagnoses: NSTEMI Hx of CABG, PCI Hyperlipidemia Systolic Murmur Acute Hypoxic Respiratory Failure Hypertension Diabetes Mellitus Hospital Course: Elsa Pugh is a 68 y.o. female with history of prior CABG in 2000 with subsequent PCI in 2019 with overlap LENA to SVG to RPDA who presented to [facility] with new anginal chest discomfort and small non-STEMI with elevated high-sensitivity troponin. Subsequently transferred to [facility] on 04/29/2023 and was admitted for NSTEMI with evidence of critical in-stent restenosis within prior SVG to RPDA. 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 Also revealed significant lesion in SVG to RCA and sequential rPDA. She was subsequently transferred to [facility] for possible PCI to vein graft. On 04/30; Patient underwent successful PCI of SVG to RPDA with 2 LENA implanted (proximal and distal graft) using distal embolic protection. Remainder of hospital course unremarkable. Was discharged home in stable condition. She will continue on DAPT (ASA 1 mg, Brilinta 90 mg twice daily), losartan 50 mg daily, Zetia 10 mg daily, Tricor 145 mg daily, metoprolol succinate 25 mg daily. Will follow-up with cardiology on outpatient basis. Procedures Performed: Cardiac Catheterization (Date: 04/29/[address] Anderson): Intervention: Successful IVUS guided PCI of the SVG to Right PDA with 3 LENA and reduction of high grade thrombotic occlusion in the proximal, mid and distal graft to 0% with DARSHAN 3 flow Echocardiogram (Type: TTE Date: 05/01/23): Interpretation Summary Left Ventricle: Left ventricle size is normal. Mildly increased wall thickness. Normal left ventricular systolic function. EF by 2D Simpsons Biplane is 72%. Normal wall motion. Right Ventricle: Right ventricle is mildly dilated. Normal systolic function. Tricuspid Valve: Mild (1+) regurgitation. Normal RVSP. Est RA pressure is 3 mmHg. RVSP is 32 mmHg. Left Atrium: Left atrium is mildly dilated. No significant valvular abnormalities. Discharge Medications: Current Outpatient Medications Medication Instructions albuterol 108 (90 Base) MCG/ACT inhaler 2 puffs, Inhalation, Every 6 hours PRN ascorbic acid (VITAMIN C) 500 mg, Oral, Daily at bedtime [START ON 05/02/2023] aspirin 81 mg, Oral, Daily cholecalciferol (VITAMIN D-3) 2,000 Units, Oral, Daily citalopram (CELEXA) 40 mg, Oral, Daily [START ON 05/02/2023] citalopram (CELEXA) 20 mg, Oral, Daily clopidogrel (PLAVIX) 75 mg, Oral, Daily doxycycline (VIBRAMYCIN) 100 mg, Oral, 2 times daily, Take with at least 8 ounces (large glass) of water, do not lie down for 30 minutes after ezetimibe (ZETIA) 10 mg, Ora (more content not included)...[facility]11-15-2023 Hospital course Narrative* Dudley Denis MD - 05/01/2023 1:45 PM EST Images from the original note were not included. [facility] [place] [facility] CCU DISCHARGE SUMMARY Patient Name: Elsa Pugh : 1955 Admit Date: 04/29/2023 Discharge Date: 05/01/23 PCP: Gabriela Linda MD Visit Status: Admission Code Status: Full Code Discharge Diagnoses: NSTEMI Hx of CABG, PCI Hyperlipidemia Systolic Murmur Acute Hypoxic Respiratory Failure Hypertension Diabetes Mellitus Hospital Course: Elsa Pugh is a 68 y.o. female with history of prior CABG in 2000 with subsequent PCI in 2019 with overlap LENA to SVG to RPDA who presented to [facility] with new anginal chest discomfort and small non-STEMI with elevated high-sensitivity troponin. Subsequently transferred to [facility] on 04/29/2023 and was admitted for NSTEMI with evidence of critical in-stent restenosis within prior SVG toRPDA. 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 Also revealed significant lesion in SVG to RCA and sequential rPDA. She was subsequently transferred to [facility] for possible PCI to vein graft. On 04/30; Patient underwent successful PCI of SVG to RPDA with 2 LENA implanted (proximal and distal graft) using distal embolic protection. Remainder of hospital course unremarkable. Was discharged home in stable condition. She will continue on DAPT (ASA 1 mg, Brilinta 90 mg twice daily), losartan 50 mg daily, Zetia 10 mg daily, Tricor 145 mg daily, metoprolol succinate 25 mg daily. Will follow-up with cardiology on outpatient basis. Procedures Performed: Cardiac Catheterization (Date: 04/29/[address] Anderson): Intervention: Successful IVUS guided PCI of the SVG to Right PDA with 3 LENA and reduction of high grade thrombotic occlusion in the proximal, mid and distal graft to 0% with DARSHAN 3 flow Echocardiogram (Type: TTE Date: 05/01/23): Interpretation Summary Left Ventricle: Left ventricle size is normal. Mildly increased wall thickness. Normal left ventricular systolic function. EF by 2D Simpsons Biplane is 72%. Normal wall motion. Right Ventricle: Right ventricle is mildly dilated. Normal systolic function. Tricuspid Valve: Mild (1+) regurgitation. Normal RVSP. Est RA pressure is 3 mmHg. RVSP is 32 mmHg. Left Atrium: Left atrium is mildly dilated. No significant valvular abnormalities. Discharge Medications: Current Outpatient Medications Medication Instructions albuterol 108 (90 Base) MCG/ACT inhaler 2 puffs, Inhalation, Every 6 hours PRN ascorbic acid (VITAMIN C) 500 mg, Oral, Daily at bedtime [START ON 05/02/2023] aspirin 81 mg, Oral, Daily cholecalciferol (VITAMIN D-3) 2,000 Units, Oral, Daily citalopram (CELEXA) 40 mg, Oral, Daily [START ON 05/02/2023] citalopram (CELEXA) 20 mg, Oral, Daily clopidogrel (PLAVIX) 75 mg, Oral, Daily doxycycline (VIBRAMYCIN) 100 mg, Oral, 2 times daily, Take with at least 8 ounces (large glass) of water, do not lie down for 30 minutes after ezetimibe (ZETIA) 10 mg, Oral ezetimibe (ZETIA) 10 mg, Oral, Nightly fenofibrate (TRICOR) 145 mg, Oral, Daily ferrous sulfate 325 mg, Oral glucose blood (Accu-Chek SmartView) test strip 1 strip, Other, 2 times daily isosorbide dinitrate (ISORDIL) 40 mg, Oral, Daily losartan (COZAAR) 12.5 mg, Oral [START ON 05/02/2023] losartan (COZAAR) 50 mg, Oral, Daily [START ON 05/02/2023] metFORMIN (GLUCOPHAGE) 1,000 mg, Oral, 2 times daily with meals metoprolol succinate XL (TOPROL-XL) 25 mg, Oral, Daily, Do not crush or chew. nitroglycerin (NITROSTAT) 0.4 mg, SubLINGual, Every 5 min PRN pantoprazole (PROTONIX) 40 mg, Oral, Daily, Do not crush, chew, or split. pregabalin (Lyrica) 150 MG capsule TAKE 1 CAPSULE BY MOUTH TWICE DAILY AT SUPPER AND BEDTIME promethazine (PHENERGAN) 25 mg, Oral, Every 6 hours PRN Red Yeast Rice Extract 600 MG tablet No dose, route, or frequency recorded. Respiratory Therapy Supplies (CareTouch CPAP & BIPAP Hose) [facility] Formal mask [facility] due to dry eyes and supplies for bipap 13/8cmH2O DME [employer] semaglutide (OZEMPIC) 1 mg ticagrelor (BRILINTA) 90 mg, Oral, 2 times daily Notable Medication Changes & Reasoning: Aspirin 81 mg daily; coronary artery disease s/p stenting Brilinta 90 mg twice daily; coronary artery disease s/p stenting Losartan 50 mg daily; hypertension, improved blood pressure control Tricor 145 mg daily; hyperlipidemia ASA: ASA 81mg QD P2Y12: Brilinta 90mg BID High-Intensity Statin: Patient does not tolerate DAVID/ARB: Losartan 50mg QD Beta-Alexandra: BB: ToprolXL 25mg QD Diuresis: Not needed Patient refused Statin therapy due to reported myalgias/intolerance. Will continue with Ezetimibe, Tricor therapy. Other: NONE Referral to Cardiac Rehab completed referral placed for DC Disposition: Home Activity: up with assist Diet: Adult diet Regular Recommended Follow Up Appointment(s): 1-2 week follow up with MARTHA for STEMI/NSTEMI 6-8 week follow up with Animal Stunner Radhika Bustamante APRN-NUTRITION CLUB AMBASSADOR PCP 2-4 weeks sooner if DX with Diabetes Associated attestation - Chris Licona MD - 05/01/2023 3:00 PM EST I personally saw and evaluated this patient prior to discharge. I examined the patient, reviewed the meds and the follow-up information. I was personally involved in, and initiated the medical therapy to be used at discharge and the follow-up to be done. 68 y.o. 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 Mild disease of left main, circumflex, proximal LAD and D1 branch with patent YATES graft to D1 as well. Patient underwent successful PCI of SVG to [facility] yesterday with 3 LENA implanted (proximal, mid, and distal graft) using distal embolic protection. No significant no reflow. Patient tolerated well. Doing well post PCI today with no bleeding from right femoral site. No angina or shortness of breath. Groin soft with no hematoma. Lungs clear. Labs reviewed and appear stable with creatinine 0.6, normalblood counts, and normal potassium. Echo reviewed showing normal EF of 72% with mild tricuspid insufficiency. Patient stable for discharge to home today. Tolerating DAPT with aspirin and Brilinta in place of Plavix. Starting PPI given history of GI issues with full dose aspirin in the past. Continue Zetia and add Tricor for hypertriglyceridemia. Intolerant to statins. Continue beta-alexandra and ARB. Outpatient discussion of PCSK9 inhibitor. [facility] and will then follow-up with outpatient business lawyer Dr. Osorio in [place]. Update given to Dr. Osorio. Greater than 30 minutes spent on the discharge planning of the patient. Chris Licona MD documented in this [facility]11-15-2023 Note* Individualized Overall Plan of Care Note - Anjali aHrding APRN - NUTRITION CLUB AMBASSADOR - 05/01/2023 1:34 PM EST Images from the original note were not included. Ischemic Heart Disease Coordinator Note Name: Elsa Pugh Date of : 1955 05/01/23 Cardiac Medications - ASA 81mg daily, ticagrelor 90mg BID, metoprolol succinate 25mg daily, losartan 50mg daily, pantoprazole 40mg daily, and ezetimibe 10mg daily, fenofibrate 145mg daily, SL Nitro PRN Primary Animal Stunner - Dr. Nieto/Devon Follow-up arranged with NEO Thakkar on 05/06/23 at 11am Cardiac rehab discussed with patient - Yes Text AMI Hotline # & Zone DC instructions with permission from patient - No, patient declined Discharge instructions, medications, restrictions, activity, diet, cardiac rehab and follow-up reviewed and patient verbalized understanding. She will utilize [id number] for her home-going Rx and was instructed to notify office with any difficulty obtaining Rx or if this becomes a financial burden. She was also informed to notify the office in the future if anyone asks her to hold or stop either ASA or ticagrelor (Brilinta) 90mg BID. CS [facility] Phone: [phone] 834-893511-15-2023 Note* Individualized Overall Plan of Care Note - COOPER Cardenas CNP - 05/01/2023 1:34 PM EST Images from the original note were not included. Ischemic Heart Disease Coordinator Note Name: Elsa Pugh Date of : 1955 05/01/23 Cardiac Medications - ASA 81mg daily, ticagrelor 90mg BID, metoprolol succinate 25mg daily, losartan 50mg daily, pantoprazole 40mg daily, and ezetimibe 10mg daily, fenofibrate 145mg daily, SL Nitro PRN Primary Animal Stunner - Dr. Nieto/Devon Follow-up arranged with NEO Thakkar on 05/06/23 at 11am Cardiac rehab discussed with patient - Yes Text AMI Hotline # & Zone DC instructions with permission from patient - No, patient declined Discharge instructions, medications, restrictions, activity, diet, cardiac rehab and follow-up reviewed and patient verbalized understanding. She will utilize [id number] for her home-going Rx and was instructed to notify office with any difficulty obtaining Rx or if this becomes a financial burden. She was also informed to notify the office in the future if anyone asks her to hold or stop either ASA or ticagrelor (Brilinta) 90mg BID. CS [facility]co Phone: [phone] 443-780311-15-2023 Miscellaneous Notes* Individualized Overall Plan of Care Note - COOPER Cardenas CNP - 05/01/2023 1:34 PM EST Images from the original note were not included. Ischemic Heart Disease Coordinator Note Name: Elsa Pugh Date of : 1955 05/01/23 Cardiac Medications - ASA 81mg daily, ticagrelor 90mg BID, metoprolol succinate 25mg daily, losartan 50mg daily, pantoprazole 40mg daily, and ezetimibe 10mg daily, fenofibrate 145mg daily, SL Nitro PRN Primary Animal Stunner - Dr. Nieto/Devon Follow-up arranged with NEO Thakkar on 05/06/23 at 11am Cardiac rehab discussed with patient - Yes Text AMI Hotline # & Zone DC instructions with permission from patient - No, patient declined Discharge instructions, medications, restrictions, activity, diet, cardiac rehab and follow-up reviewed and patient verbalized understanding. She will utilize [id number] for her home-going Rx and was instructed to notify office with any difficulty obtaining Rx or if this becomes a financial burden. She was also informed to notify the office in the future if anyone asks her to hold or stop either ASA or ticagrelor (Brilinta) 90mg BID. * Care Plan - Angelina Morales RN - 05/01/2023 1:09 AM EST Problem: Knowledge Deficit Goal: Patient/family/caregiver demonstrates understanding of disease process, treatment plan, medications, and discharge instructions Outcome: Progressing Problem: Potential for Compromised Skin Integrity Goal: Skin Integrity is Maintained or Improved Outcome: Progressing Goal: Nutritional status is improving Outcome: Progressing Problem: Urinary Incontinence Goal: Perineal skin integrity is maintained or improved Outcome: Progressing * Pre-Sedation Documentation - Donald Anderson MD - 04/30/2023 11:47 AM EST Sedation Plan ASA class 4 - patient with severe systemic disease that is a constant threat to life Mallampati class: II - soft palate, uvula, fauces visible. Sedation plan: local anesthesia and moderate (conscious sedation) Risks, benefits, and alternatives discussed with patient. Plan discussed with attending. Immediate reassessment prior to sedation: Patient's status reviewed and vital signs assessed; acceptable to perform procedure and proceed to administer sedation as planned. * Care Coordination - Rosa Barker RN - 04/30/2023 10:22 AM EST Care Managment Initial Assessment Date: 04/30/2023 Patient Name: Elsa Pugh : 1955 Patient Information Source of Information: Patient Cognition/Language: WFL - Within Functional Limits Permission given to speak with patient residential sales representative/caregiver as indicated: Yes Confirmation of Payer with patient/family: Yes Payer Name: Aetna Mcr Adv/ Mdc : No Confirmation of Primary Care Physician: Confirmed PCP Name: Maddi Seen in last 2 years?: Yes Primary Caregiver: Self If assistance needed, confirmed caregiver ready, willing and able to care for patient at discharge:Yes Confirmed with: Living Arrangements Current Residence: Apartment (side by side duplex) Number of Floors 2 Number of Entry Steps: 1 Bed/Bath Levels: Both second floor Facility: Facility Name: Plan to Return: Yes Lives with: Spouse/significant other Support Systems: Spouse/significant other, Children Activities of Daily Living Ambulation: Independent Bathing/Dressing: Independent Elimination/Continence/Toileting: Independent Feeding: Independent Who Assists with Activities of Daily Living: Instrumental Activities of Daily Living Prescription Coverage: Yes Pharmacy Used: [facility] in [place] Medication Management: Independent Transportation/Shopping: Independent Transportation Mode: Car Needs Assistance with Transportation at Discharge: No Meal Preparation: Independent Laundry/Cleaning: Independent Finances/Bill Paying: Independent Communication: Independent Types of Care Services/Equipment Utilized Care Services: Dialysis Type: NA Durable Medical Equipment: Cane, CPap, Glucometer Patient's Goal/Discharge Plan Patient expects to be discharged to: Home Discharge Planning Actions: Continue to follow Patient's Choice Rights and [employer] and Collaborative Relationships Disclosed as Indicated for Post-Acute Care: Yes Interdisciplinary Team Engagement: PT/OT Social Work Referral for: Additional Information: Patient admitted to for NSTEMI. Received LHC at OSH; decision made to transfer to [facility] for SVG intervention. Remains on heparin gtt in anticipation of procedure. Started on nitroglycerin gtt for recurrent chest pain. TCC meets with patient and daughter at bedside. Patient lives in a two story duplex with her boyfriend, drives, is current with her PCP, and has prescription coverage. TCC to follow. Rosa Barker RN * Significant Event - Marie Hernadnez MD - 04/30/2023 4:03 AM EST Contacted by nursing staff and informed that patient with recurrent chest pain and increased dyspnea. Patient with increase in SBP into the 170s, at one point with SBP to 200 per report. Repeat EKG ordered, similar to prior. Stat troponin requested. I reported to bedside to assess the patient. She was resting comfortably but reported that she did have a recurrence of her chest pain - was chest pain free on admission. CXR ordered. Await stat troponin. Will start low dose nitroglycerin gtt. documented in this [facility]11-15-2023 Nurse Note* Mark Dean RN - 05/01/2023 1:32 PM EST Discharge instructions including follow up appointments and new medications were went over with patient and . Answered all questions and concerns. Peripheral Ivs removed. [id number]* Mark Dean RN - 05/01/2023 1:32 PM EST Discharge instructions including follow up appointments and new medications were went over with patient and . Answered all questions and concerns. Peripheral Ivs removed. * Annalisa Dudley RN - 04/30/2023 8:12 AM EST Rapid at bedside. Pt states the chest discomfort is better, states dull ache at R shoulder but almost gone. Cont to monitor. Call light in reach. * Annalisa Dudley RN - 04/30/2023 7:30 AM EST Pt with 6/10 chest pain and discomfort in R shoulder area. No SOB. Has nitroglycerin gtt infusing and heparin. S. Puliafico STUD SETTER notified. Also notified SBP ranging 150-170s. HR 56. Pt up in bed. Call light in reach. Cont to monitor. Paging Dr. Denis to notify also. * Dianne Pressley RN - 04/29/2023 6:27 PM EST 1822 pt arrived from [place] heparin drip running at 800 units/8ml/hr pt pulled over in bed radial site intact, right femoral site has pressure dressing intact pt denies pain, no apparent distress, messaged primary team for orders 1826 pt states she has many allergies but cannot recall all of them, states her boyfriend can bringin a list tomorrow, also states she cannot recall all her meds but some I wish my head was clearer states her boyfriend can try to take a picture of them tonight if he knows how to or he can bring the list in tomorrow documented in this [facility]11-15-2023 History of Present illness Narrative* Dudley Denis MD - 05/01/2023 1:31 PM EST Images from the original note were not included. [facility] [place] [facility] CCU PROGRESS NOTE Patient Name: Elsa Pugh : 1955 Subjective: Interval History: Currently, patient is resting comfortably in bed. Patient has no acute complaints. Underwent successful IVUS guided PCI of the SVG to Right PDA with 3 LENA. Clinically stable. Anticipate discharge home today, 05/01. Review of Systems: Review of Systems Constitutional: Negative for chills, diaphoresis and fever. HENT: Negative for congestion, postnasal drip, rhinorrhea and sinus pain. Respiratory: Negative for cough and shortness of breath. Cardiovascular: Positive for chest pain (mild). Negative for leg swelling. Gastrointestinal: Negative for abdominal distention, abdominal pain and constipation. Endocrine: Negative for cold intolerance and heat intolerance. Genitourinary: Negative for difficulty urinating and dysuria. Musculoskeletal: Negative for arthralgias and myalgias. Skin: Negative for rash. Neurological: Negative for dizziness, weakness, numbness and headaches. Psychiatric/Behavioral: Negative for agitation and confusion. The patient is not nervous/anxious. Inpatient Medications: Scheduled Meds:ascorbic acid, 500 mg, Oral, Daily aspirin, 81 mg, Oral, Daily citalopram, 20 mg, Oral, Daily ezetimibe, 10 mg, Oral, Nightly [START ON 05/02/2023] losartan, 50 mg, Oral, Daily [Held by provider] metoprolol succinate XL, 25 mg, Oral, Daily pregabalin, 150 mg, Oral, BID ticagrelor, 90 mg, Oral, BID Objective: Physical Examination: BP 122/50 (BP Location: Right arm, Patient Position: Sitting) Pulse 58 Temp (!) 35.8 C (96.5 F)(Temporal) Resp 18 Ht 1.651 m (5' 5) Wt 87.5 kg (193 lb) SpO2 97% BMI 32.12 kg/m Intake/Output Summary (Last 24 hours) at 05/01/2023 1331 Last data filed at 04/30/2023 1700 Gross per 24 hour Intake -- Output 500 ml Net -500 ml Physical Exam Vitals and nursing note reviewed. Constitutional: General: She is not in acute distress. Appearance: Normal appearance. HENT: Right Ear: External ear normal. Left Ear: External ear normal. Mouth/Throat: Mouth: Mucous membranes are moist. Pharynx: Oropharynx is clear. Eyes: Conjunctiva/sclera: Conjunctivae normal. Pupils: Pupils are equal, round, and reactive to light. Cardiovascular: Rate and Rhythm: Normal rate and regular rhythm. Heart sounds: Normal heart sounds. No murmur heard. No friction rub. No gallop. Pulmonary: Effort: Pulmonary effort is normal. No respiratory distress. Breath sounds: Normal breath sounds. No wheezing. Abdominal: General: Bowel sounds are normal. Palpations: Abdomen is soft. There is no mass. Musculoskeletal: Right lower leg: No edema. Left lower leg: No edema. Lymphadenopathy: Cervical: No cervical adenopathy. Skin: Comments: R groin access site appears clean Neurological: Mental Status: She is alert and oriented to person, place, and time. Psychiatric: Mood and Affect: Mood normal. Behavior: Behavior normal. Pertinent Labs: BMP: Lab Results Component Value Date NA 133 (L) 05/01/2023 K 3.9 05/01/2023 CL 99 05/01/2023 CO2 27 05/01/2023 BUN 12 05/01/2023 CREATININE 0.67 05/01/2023 GLUCOSE 156 (H) 05/01/2023 CALCIUM 9.2 05/01/2023 MG 1.8 05/01/2023 PHOS 4.7 (H) 05/01/2023 CBC: Lab Results Component Value Date WBC 9.7 05/01/2023 HGB 13.2 05/01/2023 HCT 39.1 05/01/2023 MCV 88.8 05/01/2023 PLT 213 05/01/2023 Cardiac profile: TROPONIN I Date Value Ref Range Status 05/01/2023 0.546 (HH) <0.034 ng/mL Final 04/30/2023 0.058 (H) <0.034 ng/mL Final 04/30/2023 0.062 (H) <0.034 ng/mL Final Coagulation: No results found for: INR, PTT Lipid panel: Lab Results Component Value Date CHOL 193 04/30/2023 HDL 36 (L) 04/30/2023 TRIG 463 (H) 04/30/2023 Other: Lab Results Component Value Date HGBA1C 6.8 (H) 04/30/2023 Chest Imaging: CXR: === 04/29/23 === XR CHEST 1 VIEW Cardiac Studies: Telemetry findings reviewed: ECG: Encounter Date: 04/29/23 ECG 12 lead Result Value Heart Rate 60 QRSD Interval 116 QT Interval 472 QTC Interval 473 P [place] 58 QRS [place] 34 T Wave [place] 162 SD Interval 156 Impression Sinus rhythm Nonspecific intraventricular conduction delay Repol abnrm suggests ischemia, anterolateral Echo: 04/29/23 TRANSTHORACIC ECHOCARDIOGRAM (TTE) COMPLETE (CONTRAST/BUBBLE/3D PRN) 05/01/2023 11:03 AM (Final) Interpretation Summary Left Ventricle: Left ventricle size is normal. Mildly increased wall thickness. Normal left ventricular systolic function. EF by 2D Simpsons Biplane is 72%. Normal wall motion. Right Ventricle: Right ventricle is mildly dilated. Normal systolic function. Tricuspid Valve: Mild (1+) regurgitation. Normal RVSP. Est RA pressure is 3 mmHg. RVSP is 32 mmHg. Left Atrium: Left atrium is mildly dilated. No significant valvular abnormalities. Signed by: Abraham Lemos MD on 05/01/2023 11:03 AM Cath Report: 04/29/23 CARDIAC PROCEDURE (Preliminary) This result has not been signed. Information might be incomplete. Conclusion Background: This is a very pleasant 68 y.o. female with NSTEMI who was transferred from outside facility. She is the lab today for planned PCI of SVG to right PDA. Intervention: Successful IVUS guided PCI of the SVG to Right PDA with 3 LENA and reduction of high grade thrombotic occlusion in the proximal, mid and distal graft to 0% with DARSHAN 3 flow Recommendations: Aspirin 81mg daily, lifelong. Dual antiplatelet therapy for minimum 12 months Continued aggressive risk factor modification and medical therapy Assessment/Plan NSTEMI Hx of CABG, PCI HLD -CD of 04/28 [facility] films included in patient chart for review -[facility] 04/30; Successful IVUS guided PCI of the SVG to Right PDA with 3 LENA; see full report -Lipid panel; triglycerides 473, remainder within normal limits -Continue ASA 81 mg daily, Brilinta 90 mg bid; will require DAPT for 12 months -Initiate Protonix 40 mg daily -Consider initiation of PCSK-9 as patient with extensive CAD hx and reported statin-associated myalgias -Restart metoprolol succinate 25 mg daily -Continue ezetimibe 10 mg nightly, will add Tricor 145 mg daily -EKG unremarkable -Anticipate discharge home today; 05/01 Systolic Murmur -TTE 04/30; EF 72%, no significant valvular abnormalities Acute Hypoxic Respiratory Failure - Patient with light, coarse breath sounds over posterior nunez - CXR report from OSH without pulmonary infiltrate - respiratory viral panel; (+) for Rhinovirus HTN - SBP 150s-160s since her arrival - Increase home Losartan to 50 mg daily DM - HbA1c 6.8 - hold home metformin - hypoglycemia protocol ordered - Goals of Care: Full Code - DVT Prophylaxis: Heparin Drip - GI Prophylaxis: Protonix daily - Diet: Regular - BMI Classification: Body mass index is 32.12 kg/m . - Disposition: Discharge to home later today. Associated attestation - Chris Licona MD - 05/01/2023 2:59 PM EST I, Dr. Chris Licona, saw and evaluated the patient on 05/01/2023. I personally obtained the nicholson and critical portions of the history and physical exam. I reviewed the medical record including labs, imaging studies, and notes. I discussed the patient with the medical claims representative, and I agree with the resident's medical decision making. 68 y.o. 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 Mild disease of left main, circumflex, proximal LAD and D1 branch with patent YATES graft to D1 as well. Patient underwent successful PCI of SVG to [facility] yesterday with 3 LENA implanted (proximal, mid, and distal graft) using distal embolic protection. No significant no reflow. Patient tolerated well. Doing well post PCI today with no bleeding from right femoral site. No angina or shortness of breath. Groin soft with no hematoma. Lungs clear. Labs reviewed and appear stable with creatinine 0.6, normalblood counts, and normal potassium. Echo reviewed showing normal EF of 72% with mild tricuspid insufficiency. Patient stable for discharge to home today. Tolerating DAPT with aspirin and Brilinta in place of Plavix. Starting PPI given history of GI issues with full dose aspirin in the past. Continue Zetia and add Tricor for hypertriglyceridemia. Intolerant to statins. Continue beta-alexandra and ARB. Outpatient discussion of PCSK9 inhibitor. Patient will have postintervention [employer] SUSTAINABILITY COMMUNICATOR follow-up, and will then follow-up with outpatient business lawyer Dr. Osorio in [place]. Update given to Dr. Osorio. Chris Licona MD * Emily Art - 05/01/2023 7:55 AM EST .Nutrition rescreen completed. Chart reviewed. Patient to be monitored and followed by the diet patient care technician instructor. JOHN Steinberg * Angelica Amaral APRN - JUANITA - 04/30/2023 1:30 PM EST Patient seen post procedure, No chest pain, she reports feeling better. Reviewed Results of PCI, Advised the need to take only 81 mg ASA along with Brilinta. No SOB. Follows with Dr. Landry in [place]. I called office, soonest appt is 06/06/2023 with the MARTHA. * Dudley Denis MD - 04/30/2023 12:54 PM EST Images from the original note were not included. [facility] [place] [facility] CCU PROGRESS NOTE Patient Name: Elsa Pugh : 1955 Subjective: Interval History: Elsa Tariq is a 68-year-old female with past medical history significant for three-vessel CABG, LENA placement in 2019, hypertension, HLD that presented to [facility] on 04/29 from [facility] with NSTEMI and subsequent LHC that revealed OPERATING COST CLERK of LAD with patent YATES to D1 and radial artery to OM grafts. LHC also revealed significant lesion in SVG to RCA. Patient was transferred to [facility] for possible PCI to SVG. Currently, patient is resting comfortably in bed. Patient has no acute complaints. Anticipating Ctoday for SVG intervention after lesion of RCA noted on 04/29 LHC. Review of Systems: Review of Systems Constitutional: Negative for chills, diaphoresis and fever. HENT: Negative for congestion, postnasal drip, rhinorrhea and sinus pain. Respiratory: Negative for cough and shortness of breath. Cardiovascular: Positive for chest pain (mild). Negative for leg swelling. Gastrointestinal: Negative for abdominal distention, abdominal pain and constipation. Endocrine: Negative for cold intolerance and heat intolerance. Genitourinary: Negative for difficulty urinating and dysuria. Musculoskeletal: Negative for arthralgias and myalgias. Skin: Negative for rash. Neurological: Negative for dizziness, weakness, numbness and headaches. Psychiatric/Behavioral: Negative for agitation and confusion. The patient is not nervous/anxious. Inpatient Medications: Scheduled Meds:ascorbic acid, 500 mg, Oral, Daily aspirin, 81 mg, Oral, Daily citalopram, 40 mg, Oral, Daily ezetimibe, 10 mg, Oral, Nightly ferrous sulfate, 325 mg, Oral, Daily with breakfast heparin, 4,000 Units, IntraVENous, Once losartan, 25 mg, Oral, Daily metoprolol succinate XL, 25 mg, Oral, Daily pregabalin, 150 mg, Oral, BID sodium chloride 0.9%, 5-40 mL, IntraVENous, q12h sodium chloride 0.9%, 5-40 mL, IntraVENous, q12h Continuous Infusions:heparin, 5-30 Units/kg/hr, Last Rate: Stopped (04/30/23 1145) nitroglycerin, 5-200 mcg/min, Last Rate: Stopped (04/30/23 1145) Objective: Physical Examination: BP (!) 150/59 Pulse 55 Temp 36.3 C (97.4 F) (Temporal) Resp 13 Ht 1.651 m (5' 5) Wt 87.1kg (192 lb) SpO2 99% BMI 31.95 kg/m Intake/Output Summary (Last 24 hours) at 04/30/2023 1303 Last data filed at 04/30/2023 1245 Gross per 24 hour Intake -- Output 5 ml Net -5 ml Physical Exam Vitals and nursing note reviewed. Constitutional: General: She is not in acute distress. Appearance: Normal appearance. HENT: Right Ear: External ear normal. Left Ear: External ear normal. Mouth/Throat: Mouth: Mucous membranes are moist. Pharynx: Oropharynx is clear. Eyes: Conjunctiva/sclera: Conjunctivae normal. Pupils: Pupils are equal, round, and reactive to light. Cardiovascular: Rate and Rhythm: Normal rate and regular rhythm. Heart sounds: Normal heart sounds. No murmur heard. No friction rub. No gallop. Pulmonary: Effort: Pulmonary effort is normal. No respiratory distress. Breath sounds: Normal breath sounds. No wheezing. Abdominal: General: Bowel sounds are normal. Palpations: Abdomen is soft. There is no mass. Musculoskeletal: Right lower leg: No edema. Left lower leg: No edema. Lymphadenopathy: Cervical: No cervical adenopathy. Neurological: Mental Status: She is alert and oriented to person, place, and time. Psychiatric: Mood and Affect: Mood normal. Behavior: Behavior normal. Pertinent Labs: BMP: Lab Results Component Value Date NA 136 04/30/2023 K 3.5 04/30/2023 CL 104 04/30/2023 CO2 24 04/30/2023 BUN 10 04/30/2023 CREATININE 0.71 04/30/2023 GLUCOSE 125 (H) 04/30/2023 CALCIUM 8.7 04/30/2023 MG 1.5 (L) 04/30/2023 PHOS 4.5 04/30/2023 CBC: Lab Results Component Value Date WBC 7.7 04/30/2023 HGB 12.7 04/30/2023 HCT 38.0 04/30/2023 MCV 89.8 04/30/2023 PLT 188 04/30/2023 Cardiac profile: TROPONIN I Date Value Ref Range Status 04/30/2023 0.058 (H) <0.034 ng/mL Final 04/30/2023 0.062 (H) <0.034 ng/mL Final Coagulation: No results found for: INR, PTT Lipid panel: Lab Results Component Value Date CHOL 193 04/30/2023 HDL 36 (L) 04/30/2023 TRIG 463 (H) 04/30/2023 Other: Lab Results Component Value Date HGBA1C 6.8 (H) 04/30/2023 Chest Imaging: CXR: === 04/29/23 === XR CHEST 1 VIEW Cardiac Studies: Telemetry findings reviewed: ECG: Encounter Date: 04/29/23 ECG 12 lead Result Value Heart Rate 56 QRSD Interval 104 QT Interval 530 QTC Interval 510 P [place] 55 QRS [place] 49 T Wave [place] 163 SD Interval 175 Impression Sinus bradycardia Abnrm T, consider ischemia, anterolateral lds Prolonged QT interval Echo: No results found for this or any previous visit. Cath Report: No results found for this or any previous visit. Assessment/Plan NSTEMI Hx of CABG, PCI HLD CD of 04/28 [facility] films included in patient chart for review - Plan for [facility] today (04/30) for SVG intervention after lesion noted on 04/29 OSH [facility] - Will load with ASA 81 mg, Brilinta 180 mg -Following procedure, initiate Brilinta 90 mg bid -We will hold heparin, nitroglycerin for procedure - continue home ezetimibe - consider initiation of PCSK-9 as patient with extensive CAD hx and reported statin-associated myalgias - telemetry monitoring for aberrant rhythms in the setting of ischemia - risk stratification with hgb A1c, lipid panel -Hold metoprolol succinate 25 mg daily in setting of Bradycardia -Continue ezetimibe 10 mg nightly -Daily EKG -Troponin trending down 0.058 -Lipid panel; triglycerides 473, remainder within normal limits Systolic Murmur -Pending complete TTE ordered to assess for valvular disease Acute Hypoxic Respiratory Failure - Patient with light, coarse breath sounds over posterior nunez - CXR report from OSH without pulmonary infiltrate - respiratory viral panel - NEGATIVE HTN - SBP 150s-160s since her arrival - continue home losartan DM - HbA1c 6.8 - hold home metformin - hypoglycemia protocol ordered - Goals of Care: Full Code - DVT Prophylaxis: Heparin Drip - GI Prophylaxis: Not indicated - Diet: NPO - BMI Classification: Body mass index is 31.95 kg/m . - Disposition: Continue to monitor in CCU. Associated attestation - Chris Licona MD - 04/30/2023 8:42 PM EST I, Dr. Chris Liocna, saw and evaluated the patient on 04/30/2023. I personally obtained the nicholson and critical portions of the history and physical exam. I reviewed the medical record including labs, imaging studies, and notes. I discussed the patient with the medical claims representative, and I agree with the resident's medical decision making. 68 y.o. female transferred from [place] for small non-STEMI with evidence of critical in-stent restenosis within prior SVG to [facility]. Stable coronary disease in remaining vessels as detailed in H&P. Successful PCI of SVG to [facility] today by Dr. Nieto with 2 LENA implanted (proximal and distal graft) using distal embolic protection. No significant no reflow. Patient tolerated well. Doing well post PCI. Continue medical management of small non-STEMI. Continue baby aspirin and Brilinta long-term. Intolerant to statins, but tolerating Zetia. Continue beta- alexandra. Continue diabetic regimen. Consider triglyceride lowering therapy and possible PCSK9 inhibitor as an outpatient. Potential discharge Saturday. Long- term follow-up with [place] cardiology. Chris Licona MD documented in this [facility]11-15-2023 Hospital Discharge instructions* Discharge Instructions* Anjali Harding APRN - JUANITA - 05/01/2023 8:10 AM EST Expect a phone call within 72 hours post discharge. If you have questions, issues, or concerns please CALL or TEXT the Ischemic Heart Disease Hotline, cell phone # [phone] Call your doctor with any medication questions or if you notice any side effects from your medications. If you are unable to fill your medications, please call your Animal Stunner immediately. The office number is located with your follow-up appointment information. Call your doctor if any redness or drainage from the wound site. DO NOT stop taking your medication unless instructed to do so by your doctor. Read the drug information material that were given to you and take medications as instructed by your doctor. New drugs may have been added to your medications, that will strengthen your heart and prevent re-stenosis of the coronary arteries. Drink 6 glasses of water (8 ounces each) over the next 24 hours. Water helps clear the dye from your body. No alcoholic beverages for 24 hours. It may interfere with healing. No exercise or sex for 5 days. Call 911 for chest pain, arm pain, nausea, neck pain, dizziness or unusual sweating AND your pain has not relieved with 2 doses of Nitroglycerin. Call your doctor if a lump at the puncture site enlarges or is larger than a golf ball. Call your doctor for severe pain to a light touch or for numbness, tingling or swelling of the affected foot. Call your doctor for increased area of bruising with discoloration extending down the leg. Call your doctor for coolness of the leg or foot. If bleeding occurs, lie down on a hard surface preferably the floor and apply pressure to the site for 20 minutes if BLEEDING continues CALL 911. OK to shower. No tub baths, swimming pools, or hot tub soaking for five days. Wash site daily with soap and water, dry gently. The healing wound should remain soft and dry. Keepthe site clean and dry. Cover with large band aid and change dressing for total of five days. No lifting, pushing or pulling more than 5 pounds for 5 days. No driving for three days. Limit your stair climbing for three days. GIVE PCI PACKET (FROM PHYSICIAN REPRESENTATIVE) TO PATIENT Give Coronary Artery Discharge Book. PLEASE CALL YOUR HEART DOCTOR IF YOU CANNOT GET YOUR MEDICATIONS. THE NUMBER IS LISTED WITH YOUR FOLLOW-UP APPOINTMENT. Procedure Sedation Instructions If you have received sedation: you must have someone drive you home You should not drive a car, operate machinery, drink alcohol or perform any activity that requires alertness for the rest of the day. The effects of the sedative should be gone by tomorrow. Blood work in 5-7 days, see orders Cardiac Rehab The Cardiac Rehab team at [facility] consists of highly skilled exercise physiologists, nurses, respiratory therapists and physicians working together with you. Our purpose is to help you have a full recovery and achieve the goals you set for yourself. Over the years many of our patients have returned to activities they assumed they would never do again! We can help restore your confidence and motivation to make lifestyle changes that can have a significant impact on your health and quality of life! We can help answer questions and concerns you may have about exercise, lifestyle, medications, diet, stress and anxiety which are common following a hospitalization. We monitor ECG and vital signs during exercise and discuss your progress with you and report to your physician. Cardiac Rehab is proven to help reduce readmissions, improve functional capacity and lower recurrence of problems with your heart. We have facilities at both [facility] and [facility]. At both locations we have street level parking which is free and our sites are easily accessible. For both [facility] you can contact us at . We invite you to call us with your questions or to get started in our program. If you have other questions or concerns be sure to ask your provider during your follow up visit. We look forward to seeing you there. Our locations: [facility] [address] [facility] [place] [address] Floor [id number] - [facility] documented in this [facility]11-15-2023 Plan of care note* Care Plan - Angelina Morales RN - 05/01/2023 1:09 AM EST Problem: Knowledge Deficit Goal: Patient/family/caregiver demonstrates understanding of disease process, treatment plan, medications, and discharge instructions Outcome: Progressing Problem: Potential for Compromised Skin Integrity Goal: Skin Integrity is Maintained or Improved Outcome: Progressing Goal: Nutritional status is improving Outcome: Progressing Problem: Urinary Incontinence Goal: Perineal skin integrity is maintained or improved Outcome: Progressing [facility]11-14-2023 NoteReceived referral and reviewed chart. Unable to discuss Phase II Cardiac Rehab Referral with Elsa Pugh at this time. Will follow to discuss cardiac rehab when appropriate. Patient will be contacted at home if discharged prior to discussion. [facility]11-14-2023 NotePatient seen post procedure, No chest pain, she reports feeling better. Reviewed Results of PCI, Advised the need to take only 81 mg ASA along with Brilinta. No SOB. Follows with Dr. Landry in [place]. I called office, soonest appt is 06/06/2023 with the MARTHA.[facility]11-14-2023 NoteAttempted echo twice pt was going to cath [facility]11-14-2023 Consult note* Rebekah Bang - 04/30/2023 1:41 PM ESTAssociated Order(s): IP CONSULT TO CARDIAC REHAB; IP CONSULT TO CARDIAC REHAB; IP CONSULT TO CARDIAC REHAB Received referral and reviewed chart. Unable to discuss Phase II Cardiac Rehab Referral with Elsa Pugh at this time. Will follow to discuss cardiac rehab when appropriate. Patient will be contacted at home if discharged prior to discussion. [facility]11-14-2023 Consult note* Rebekah Bang - 04/30/2023 1:41 PM ESTAssociated Order(s): IP CONSULT TO CARDIAC REHAB; IP CONSULT TO CARDIAC REHAB; IP CONSULT TO CARDIAC REHAB Received referral and reviewed chart. Unable to discuss Phase II Cardiac Rehab Referral with Elsa Pugh at this time. Will follow to discuss cardiac rehab when appropriate. Patient will be contacted at home if discharged prior to discussion. documented in this [facility]11-14-2023 Procedure note* Marthabetina Harvey - 04/30/2023 12:02 PM EST Attempted echo twice pt was going to slab conditioner supervisor [id number] Procedure note* Marthabetina Harvey - 04/30/2023 12:02 PM EST Attempted echo twice pt was going to slab conditioner supervisor documented in this [facility]11-14-2023 Note* Pre-Sedation Documentation - Donald Anderson MD - 04/30/2023 11:47 AM EST Sedation Plan ASA class 4 - patient with severe systemic disease that is a constant threat to life Mallampati class: II - soft palate, uvula, fauces visible. Sedation plan: local anesthesia and moderate (conscious sedation) Risks, benefits, and alternatives discussed with patient. Plan discussed with attending. Immediate reassessment prior to sedation: Patient's status reviewed and vital signs assessed; acceptable to perform procedure and proceed to administer sedation as planned. [facility] [employer] Work Phone: [phone]) 477-288511-14-2023 Note* Pre-Sedation Documentation - Donald Anderson MD - 04/30/2023 11:47 AM EST Sedation Plan ASA class 4 - patient with severe systemic disease that is a constant threat to life Mallampati class: II - soft palate, uvula, fauces visible. Sedation plan: local anesthesia and moderate (conscious sedation) Risks, benefits, and alternatives discussed with patient. Plan discussed with attending. Immediate reassessment prior to sedation: Patient's status reviewed and vital signs assessed; acceptable to perform procedure and proceed to administer sedation as planned. [employer] Work Phone: [phone]) 124-179111-14-2023 Note* Care Coordination - Rosa Cook RN - 04/30/2023 10:22 AM EST Care Managment Initial Assessment Date: 04/30/2023 Patient Name: Elsa Pugh : 1955 Patient Information Source of Information: Patient Cognition/Language: WFL - Within Functional Limits Permission given to speak with patient residential sales representative/caregiver as indicated: Yes Confirmation of Payer with patient/family: Yes Payer Name: [employer] Adv/ Mdc : No Confirmation of Primary Care Physician: Confirmed PCP Name: Maddi Seen in last 2 years?: Yes Primary Caregiver: Self If assistance needed, confirmed caregiver ready, willing and able to care for patient at discharge:Yes Confirmed with: Living Arrangements Current Residence: Apartment (side by side [facility]) Number of Floors 2 Number of Entry Steps: 1 Bed/Bath Levels: Both second floor Facility: Facility Name: Plan to Return: Yes Lives with: Spouse/significant other Support Systems: Spouse/significant other, Children Activities of Daily Living Ambulation: Independent Bathing/Dressing: Independent Elimination/Continence/Toileting: Independent Feeding: Independent Who Assists with Activities of Daily Living: Instrumental Activities of Daily Living Prescription Coverage: Yes Pharmacy Used: [facility] in [place] Medication Management: Independent Transportation/Shopping: Independent Transportation Mode: Car Needs Assistance with Transportation at Discharge: No Meal Preparation: Independent Laundry/Cleaning: Independent Finances/Bill Paying: Independent Communication: Independent Types of Care Services/Equipment Utilized Care Services: Dialysis Type: NA Durable Medical Equipment: Cane, CPap, Glucometer Patient's Goal/Discharge Plan Patient expects to be discharged to: Home Discharge Planning Actions: Continue to follow Patient's Choice Rights and [employer] and Collaborative Relationships Disclosed as Indicated for Post-Acute Care: Yes Interdisciplinary Team Engagement: PT/OT Social Work Referral for: Additional Information: Patient admitted to for NSTEMI. Received LHC at OSH; decision made to transfer to [facility] for SVG intervention. Remains on heparin gtt in anticipation of procedure. Started on nitroglycerin gtt for recurrent chest pain. TCC meets with patient and daughter at bedside. Patient lives in a two story duplex with her boyfriend, drives, is current with her PCP, and has prescription coverage. TCC to follow. Rosa Barker RN [id number] Note* Care Coordination - Rosa Barker RN - 04/30/2023 10:22 AM EST Care Managment Initial Assessment Date: 04/30/2023 Patient Name: Elsa Pugh : 1955 Patient Information Source of Information: Patient Cognition/Language: WFL - Within Functional Limits Permission given to speak with patient residential sales representative/caregiver as indicated: Yes Confirmation of Payer with patient/family: Yes Payer Name: [facility] Adv/ Mdc [place]: No Confirmation of Primary Care Physician: Confirmed PCP Name: Maddi Seen in last 2 years?: Yes Primary Caregiver: Self If assistance needed, confirmed caregiver ready, willing and able to care for patient at discharge:Yes Confirmed with: Living Arrangements Current Residence: Apartment (side by side duplex) Number of Floors 2 Number of Entry Steps: 1 Bed/Bath Levels: Both second floor Facility: Facility Name: Plan to Return: Yes Lives with: Spouse/significant other Support Systems: Spouse/significant other, Children Activities of Daily Living Ambulation: Independent Bathing/Dressing: Independent Elimination/Continence/Toileting: Independent Feeding: Independent Who Assists with Activities of Daily Living: Instrumental Activities of Daily Living Prescription Coverage: Yes Pharmacy Used: [facility] Medication Management: Independent Transportation/Shopping: Independent Transportation Mode: Car Needs Assistance with Transportation at Discharge: No Meal Preparation: Independent Laundry/Cleaning: Independent Finances/Bill Paying: Independent Communication: Independent Types of Care Services/Equipment Utilized Care Services: Dialysis Type: NA Durable Medical Equipment: Cane, CPap, Glucometer Patient's Goal/Discharge Plan Patient expects to be discharged to: Home Discharge Planning Actions: Continue to follow Patient's Choice Rights and [employer] and Collaborative Relationships Disclosed as Indicated for Post-Acute Care: Yes Interdisciplinary Team Engagement: PT/OT Social Work Referral for: Additional Information: Patient admitted to for NSTEMI. Received LHC at OSH; decision made to transfer to [facility] for SVG intervention. Remains on heparin gtt in anticipation of procedure. Started on nitroglycerin gtt for recurrent chest pain. TCC meets with patient and daughter at bedside. Patient lives in a two story duplex with her boyfriend, drives, is current with her PCP, and has prescription coverage. TCC to follow. Rosa Barker RN [employer] [id number] Nurse Note* Annalisa Dudley RN - 04/30/2023 8:12 AM EST Rapid at bedside. Pt states the chest discomfort is better, states dull ache at R shoulder but almost gone. Cont to monitor. Call light in reach. [employer] [id number] Nurse Note* Annalisa Dudley RN - 04/30/2023 7:30 AM EST Pt with 6/10 chest pain and discomfort in R shoulder area. No SOB. Has nitroglycerin gtt infusing and heparin. S. [employer] STUD SETTER notified. Also notified SBP ranging 150-170s. HR 56. Pt up in bed. Call light in reach. Cont to monitor. Paging Dr. Denis to notify also. [employer] [id number] Note* Significant Event - Marie Hernandez MD - 04/30/2023 4:03 AM EST Contacted by nursing staff and informed that patient with recurrent chest pain and increased dyspnea. Patient with increase in SBP into the 170s, at one point with SBP to 200 per report. Repeat EKG ordered, similar to prior. Stat troponin requested. I reported to bedside to assess the patient. She was resting comfortably but reported that she did have a recurrence of her chest pain - was chest pain free on admission. CXR ordered. Await stat troponin. Will start low dose nitroglycerin gtt. [id number] Note* Significant Event - Marie Hernandez MD - 04/30/2023 4:03 AM EST Contacted by nursing staff and informed that patient with recurrent chest pain and increased dyspnea. Patient with increase in SBP into the 170s, at one point with SBP to 200 per report. Repeat EKG ordered, similar to prior. Stat troponin requested. I reported to bedside to assess the patient. She was resting comfortably but reported that she did have a recurrence of her chest pain - was chest pain free on admission. CXR ordered. Await stat troponin. Will start low dose nitroglycerin gtt. [id number] Note Attestation signed by Chris Licona MD at 05/17/2023 3:14 PM (Updated) I, Dr. Chris Licona, saw and evaluated the patient on 04/30/2023. I personally obtained the nicholson and critical portions of the history and physical exam. I reviewed the medical record including labs, imaging studies, and notes. I discussed the patient with the medical claims representative, and I agree with the resident's medical decision making. 68 y.o. female with history of prior CABG in 2000 with subsequent PCI in 2019 with overlap LENA to SVG to RPDA who presented to [facility] with new anginal chest discomfort and small non-STEMI with elevated high-sensitivity troponin. She also reported some recent viral respiratory symptoms. Cardiac cath performed at [place] shows mild disease of left main, proximal LAD, and circumflex with mid LAD OPERATING COST CLERK. Small diagonal branch patent antegradely and also has competitive flow from patent small caliber YATES graft. OPERATING COST CLERK of [place] RCA as well as radial artery graft to OM/ramus. Prior SVG to RPDA had prior overlap stents in the proximal to mid vessel with severe in-stent restenosis in the proximal segment as well as severe disease in the distal aspect of the graft. Moderate diffuse disease of RPDA. Limited collaterals from diagonal branch and RPDA to distal LAD. EF normal by prior echo at [place]. Patient transferred to [facility] for SVG PCI. She remained stable, but had some mild stuttering chest discomfort, managed with nitroglycerin infusion. Stable hemodynamics. She remains on IV heparin. She is on chronic Plavix and reports intolerance to full dose aspirin (GI upset) and statin (myalgia). Labs here demonstrate creatinine 0.7, BNP 1770, normal CBC, troponin 0.06, direct LDL 86, triglycerides 463. Plan staged PCI of SVG to RPDA today to address both proximal and distal graft lesions. Risk, benefits, alternatives discussed with patient and her family, and patient agrees to proceed. Anticipate right femoral approach again given inability to perform cath at [place] from right arm, and prior left radial artery harvesting for bypass graft. Pharmacotherapy discussed at length, and patient agreeable to try baby aspirin which will be started precath. Additionally, recommend switching Plavix to Brilinta, and loading dose given. Continue Zetia. Consider additional treatment of triglycerides, and recommend outpatient PCSK9 inhibitor. Patient to follow long-term with cardiology at [place] (Dr. Osorio). Chris Licona MD ADDENDUM 05/17/23: Patient had recent URI symptoms, but did not demonstrate acute respiratory failure at any point during her hospitalization. She had obesity with BMI 30-35. Chris Licona MD [facility] CCU HISTORY & PHYSICAL Patient Name: Elsa Pugh : 1955 Reason for Admission / Consult: NSTEMI History of Present Illness: Elsa Pugh is a 68 y.o. F with PMH significant for 4 Vessel CABG, LENA placement in 2019, HTN, HLD that presented to [facility] on 04/29/2023 from [facility] with NSTEMI and subsequent LHC that revealed OPERATING COST CLERK of the LAD with patent YATES to D1 and radial artery to OM grafts. Also revealed significant lesion, however, in SVG to RVA and sequential rPDA. She was subsequently transferred to [facility] for possible PCI to vein graft. She explains that began feeling unwell last week when she developed a cough, rhinorrhea, fever, and headache. She was prescribed an antibiotic for an upper respiratory infection, but continued to feel generally unwell. A few days later, she then developed R shoulder pain, L neck pain, and had a subjective feeling of tongue thickness, prompting her to re-present to the ED earlier today in [place]. She says she was admitted after an EKG performed on her was noted to be abnormal, and she then underwent subsequent LHC as described above. Otherwise, she also reports that she has had increasing dyspnea on exertion for the past several months. Review of Systems Constitutional: Positive for appetite change, diaphoresis and fever. HENT: Positive for rhinorrhea. Respiratory: Positive for cough and shortness of breath. Cardiovascular: Negative for chest pain and leg swelling. Neurological: Positive for headaches. Past Medical History: Diagnosis Date Arthritis Asthma Coronary artery disease Diabetes mellitus (HCC) History of transfusion Hypertension Past Surgical History: Procedure Laterality Date EYE SURGERY HYSTERECTOMY TONSILLECTOMY Family History Mother - carotid disease, CABG Social History Socioeconomic History Marital status: Spouse name: Not on file Number of children: Not on file Years of education: Not on file Highest education level: Not on file Occupational History Not on file Tobacco Use Smoking status: Jada (more content not included)...[facility] 04-29-2023 History and physical note* Marie Hernandez MD - 04/29/2023 8:34 PM EST Images from the original note were not included. [facility] CCU HISTORY & PHYSICAL Patient Name: Elsa Pugh : 1955 Reason for Admission / Consult: NSTEMI History of Present Illness: Elsa Pugh is a 68 y.o. F with PMH significant for 4 Vessel CABG, LENA placement in 2019, HTN, HLD that presented to [facility] on 04/29/2023 from [facility] with NSTEMI and subsequent LHC that revealed OPERATING COST CLERK of the LAD with patent YATES to D1 and radial artery to OM grafts. Also revealedsignificant lesion, however, in SVG to RVA and sequential rPDA. [facility]. She explains that began feeling unwell last week when she developed a cough, rhinorrhea, fever, andheadache. She was prescribed an antibiotic for an upper respiratory infection, but continued to feel generally unwell. A few days later, she then developed R shoulder pain, L neck pain, and had a subjective feeling of tongue thickness, prompting her to re-present to the ED earlier today in [place].She says she was admitted after an EKG performed on her was noted to be abnormal, and she then underwent subsequent LHC as described above. Otherwise, she also reports that she has had increasing dyspnea on exertion for the past several months. Review of Systems Constitutional: Positive for appetite change, diaphoresis and fever. HENT: Positive for rhinorrhea. Respiratory: Positive for cough and shortness of breath. Cardiovascular: Negative for chest pain and leg swelling. Neurological: Positive for headaches. Past Medical History: Diagnosis Date Arthritis Asthma Coronary artery disease Diabetes mellitus (HCC) History of transfusion Hypertension Past Surgical History: Procedure Laterality Date EYE SURGERY HYSTERECTOMY TONSILLECTOMY Family History Mother - carotid disease, CABG Social History Socioeconomic History Marital status: Spouse name: Not on file Number of children: Not on file Years of education: Not on file Highest education level: Not on file Occupational History Not on file Tobacco Use Smoking status: Never Smokeless tobacco: Never Substance and Sexual Activity Alcohol use: Yes Alcohol/week: 1.0 standard drink of alcohol Types: 1 Glasses of wine per week Drug use: Never Sexual activity: Not on file Other Topics Concern Not on file Social History Narrative Not on file Social Determinants of Health Financial Resource Strain: Not on file Food Insecurity: Not on file Transportation Needs: Not on file Physical Activity: Not on file Stress: Not on file Social Connections: Not on file Intimate Partner Violence: Not on file Housing Stability: Not on file Allergies Allergen Reactions Aspirin Swelling Tramadol Other Stroke like symptoms Statins Other myalgias Propoxyphene Other reaction(s): Upset Stomach Spironolactone Other reaction(s): hyperkalemia Hyperkalemia at high dose with febrile illness. Sulfa Antibiotics Other reaction(s): Hives Penicillins Hives and Rash Other reaction(s): Rash Prior to Admission medications Medication Sig Start Date End Date Taking? Authorizing Provider ezetimibe (Zetia) 10 MG tablet Take 10 mg by mouth. 03/11/23 Yes Historical Provider, glucose blood (Accu-Chek SmartView) test strip 1 strip by Other route in the morning and 1 strip inthe evening. 04/10/23 Yes Historical Provider, losartan (Cozaar) 25 MG tablet Take 12.5 mg by mouth. 03/11/23 Yes Historical Provider, metFORMIN (Glucophage) 1000 MG tablet Take 1 tablet by mouth in the morning and 1 tablet in the evening. Take with meals. 01/16/23 07/15/23 Yes Historical Provider, pregabalin (Lyrica) 150 MG capsule TAKE 1 CAPSULE BY MOUTH TWICE DAILY AT SUPPER AND BEDTIME 03/25/23 09/24/23 Yes Historical Provider, promethazine (Phenergan) 25 MG tablet Take 25 mg by mouth every 6 hours as needed. 01/21/23 Yes Historical Provider, Respiratory Therapy Supplies (CareTouch CPAP & BIPAP Hose) [facility] Formal mask fitting to considersmaller FFM like [employer] due to dry eyes and supplies for bipap 13/8cmH2O DME [employer] 02/16/22 03/03/50 Yes Historical Provider, semaglutide (Ozempic) 4 MG/3ML solution pen-injector 1 mg. 04/10/23 Yes Historical Provider, ascorbic acid (Vitamin C) 500 MG tablet Take 500 mg by mouth daily at bedtime. Historical Provider, cholecalciferol (Vitamin D-3) 50 MCG (2000 UT) tablet Take 2,000 Units by mouth in the morning. Historical Provider, citalopram (CeleXA) 40 MG tablet Take 40 mg by mouth in the morning. Historical Provider, clopidogrel (Plavix) 75 MG tablet Take 75 mg by mouth daily. Historical Provider, ferrous sulfate 325 (65 Fe) MG tablet Take 325 mg by mouth. Historical Provider, isosorbide dinitrate (Isordil) 40 MG tablet Take 40 mg by mouth daily. Historical Provider, Red Yeast Rice Extract 600 MG tablet Historical Provider, Physical Exam: BP (!) 159/99 Pulse 73 Temp 36.4 C (97.5 F) (Temporal) Resp 16 Ht 5' 5 (1.651 m) Wt 192 lb (87.1 kg) SpO2 99% BMI 31.95 kg/m Physical Exam Constitutional: Appearance: She is not toxic-appearing or diaphoretic. HENT: Head: Normocephalic and atraumatic. Mouth/Throat: Mouth: Mucous membranes are dry. Pharynx: No posterior oropharyngeal erythema. Eyes: General: No scleral icterus. Neck: Comments: No JVD Cardiovascular: Rate and Rhythm: Normal rate. Heart sounds: Murmur heard. Comments: Grade 2 systolic murmur across the precordium Pulmonary: Effort: Pulmonary effort is normal. Comments: Scattered rhonchi over bilateral posterior nunez Abdominal: Palpations: Abdomen is soft. Tenderness: There is no guarding. Musculoskeletal: Right lower leg: No edema. Left lower leg: No edema. Skin: General: Skin is warm and dry. Psychiatric: Mood and Affect: Mood normal. Behavior: Behavior normal. Pertinent Labs: At OSH prior to transfer BMP: Scr 0.78, BUN 13 CBC: WBC 9.1, hgb 11.5, hematocrit 36.8, platelets 214 Troponin I, high sensitivity: 212 Cardiac Injury Profile: No results for input(s): CKTOTAL, CKMB, CKMBINDEX, TROPONINI in thelast 72 hours. Lipid Profile: No results found for: TRIG, HDL, LDLCALC, CHOL Hemoglobin A1C: No results found for: HGBA1C Repeat Labs Pending Chest Imaging: - CXR: 04/27/23 st OSH: no acute cardiopulmonary process Cardiac Studies: - EK:45, T wave inversions in anterior leads concerning for ischemia Cardiac Cath 2018 at OSH LV gram: EF 58% Normal LVEDP Known occluded YATES to LAD SVG to PDA of RCA with high-grade stenosis, LENA placement x 2 to proximal and distal graft Principal Problem: NSTEMI (non-ST elevated myocardial infarction) (CMS/HCC) ([facility]) ASSESSMENT / PLAN: NSTEMI Hx of CABG, PCI HLD CD of 04/28 [facility] films included in patient chart for review - plan for [facility] tomorrow for SVG intervention after lesion noted on 04/29 OSH LHC - continue heparin gtt - continue home ezetimibe - consider initiation of PCSK-9 as patient with extensive CAD hx and reported statin-associated myalgias - continue home plavix, patient with ASA allergy - continue home Imdur - telemetry monitoring for aberrant rhythms in the setting of ischemia - risk stratification with hgb A1c, lipid panel - begin BB Systolic Murmur - complete TTE ordered to assess for valvular disease Acute Hypoxic Respiratory Failure Patient with light, coarse breath sounds over posterior nunez CXR report from OSH without pulmonary infiltrate - respiratory viral panel - consider gentle diuresis pending LVEDP on upcoming [facility] - hold previously prescribed doxycycline as patient reporting tongue swelling after 04/27 dose, no infiltrate on OSH CXR suggesting infiltrative or bacterial PNA HTN SBP 150s-160s since her arrival - continue home losartan DM - hold home metformin - hypoglycemia protocol ordered - Goals of Care: Full Code - DVT Prophylaxis: On heparin gtt - Diet: NPO at midnight - BMI Classification: Body mass index is 31.95 kg/m . - Disposition: Admit to CCU. Associated attestation - Chris Licona MD - 04/30/2023 8:39 PM EST I, Dr. Chris Licona, saw and evaluated the patient on 04/30/2023. I personally obtained the nicholson and critical portions of the history and physical exam. I reviewed the medical record including labs, imaging studies, and notes. I discussed the patient with the medical claims representative, and I agree with the resident's medical decision making. 68 y.o. female with history of prior CABG in 2000 with subsequent PCI in 2019 with overlap LENA to SVG to RPDA who presented to [facility] with new anginal chest discomfort and small non-STEMI with elevated high-sensitivity troponin. She also reported some recent viral respiratory symptoms. Cardiac cath performed at [place] shows mild disease of left main, proximal LAD, and circumflex with mid LAD OPERATING COST CLERK. Small diagonal branch patent antegradely and also has competitive flow from patent small caliber YATES graft. OPERATING COST CLERK of [place] RCA as well as radial artery graft to OM/ramus. Prior SVG to RPDA had prior overlap stents in the proximal to mid vessel with severe in-stent restenosis in the proximal segment as well as severe disease in the distal aspect of the graft. Moderate diffuse diseaseof RPDA. Limited collaterals from diagonal branch and RPDA to distal LAD. EF normal by prior echo at [place]. Patient transferred to [facility] for SVG PCI. She remained stable, but had some mild stuttering chest discomfort, managed with nitroglycerin infusion. Stable hemodynamics. She remains on IV heparin. She is on chronic Plavix and reports intolerance to full dose aspirin (GI upset) and statin (myalgia). Labs here demonstrate creatinine 0.7, BNP 1770, normal CBC, troponin 0.06, direct LDL 86, triglycerides 463. Plan staged PCI of SVG to RPDA today to address both proximal and distal graft lesions. Risk, benefits, alternatives discussed with patient and her family, and patient agrees to proceed. Anticipate right femoral approach again given inability to perform cath at [place] from right arm, and prior left radial artery harvesting for bypass graft. Pharmacotherapy discussed at length, and patient agreeable to try baby aspirin which will be started precath. Additionally, recommend switching Plavix to Brilinta, and loading dose given. Continue Zetia. Consider additional treatment of triglycerides, andrecommend outpatient PCSK9 inhibitor. Patient to follow long-term with cardiology at [place] (Dr. Osorio). Chris Licona MD [id number] History and physical note* Marie Hernandez MD - 04/29/2023 8:34 PM EST Images from the original note were not included. [facility] CCU HISTORY & PHYSICAL Patient Name: Elsa Pugh : 1955 Reason for Admission / Consult: NSTEMI History of Present Illness: Elsa Pugh is a 68 y.o. F with PMH significant for 4 Vessel CABG, LENA placement in 2019, HTN, HLD that presented to [facility] on 04/29/2023 from [facility] with NSTEMI and subsequent LHC that revealed OPERATING COST CLERK of the LAD with patent YATES to D1 and radial artery to OM grafts. Also revealedsignificant lesion, however, in SVG to RVA and sequential rPDA. [facility]. She explains that began feeling unwell last week when she developed a cough, rhinorrhea, fever, andheadache. She was prescribed an antibiotic for an upper respiratory infection, but continued to feel generally unwell. A few days later, she then developed R shoulder pain, L neck pain, and had a subjective feeling of tongue thickness, prompting her to re-present to the ED earlier today in [place].She says she was admitted after an EKG performed on her was noted to be abnormal, and she then underwent subsequent LHC as described above. Otherwise, she also reports that she has had increasing dyspnea on exertion for the past several months. Review of Systems Constitutional: Positive for appetite change, diaphoresis and fever. HENT: Positive for rhinorrhea. Respiratory: Positive for cough and shortness of breath. Cardiovascular: Negative for chest pain and leg swelling. Neurological: Positive for headaches. Past Medical History: Diagnosis Date Arthritis Asthma Coronary artery disease Diabetes mellitus (HCC) History of transfusion Hypertension Past Surgical History: Procedure Laterality Date EYE SURGERY HYSTERECTOMY TONSILLECTOMY Family History Mother - carotid disease, CABG Social History Socioeconomic History Marital status: Spouse name: Not on file Number of children: Not on file Years of education: Not on file Highest education level: Not on file Occupational History Not on file Tobacco Use Smoking status: Never Smokeless tobacco: Never Substance and Sexual Activity Alcohol use: Yes Alcohol/week: 1.0 standard drink of alcohol Types: 1 Glasses of wine per week Drug use: Never Sexual activity: Not on file Other Topics Concern Not on file Social History Narrative Not on file Social Determinants of Health Financial Resource Strain: Not on file Food Insecurity: Not on file Transportation Needs: Not on file Physical Activity: Not on file Stress: Not on file Social Connections: Not on file Intimate Partner Violence: Not on file Housing Stability: Not on file Allergies Allergen Reactions Aspirin Swelling Tramadol Other Stroke like symptoms Statins Other myalgias Propoxyphene Other reaction(s): Upset Stomach Spironolactone Other reaction(s): hyperkalemia Hyperkalemia at high dose with febrile illness. Sulfa Antibiotics Other reaction(s): Hives Penicillins Hives and Rash Other reaction(s): Rash Prior to Admission medications Medication Sig Start Date End Date Taking? Authorizing Provider ezetimibe (Zetia) 10 MG tablet Take 10 mg by mouth. 03/11/23 Yes Historical Provider, glucose blood (Accu-Chek SmartView) test strip 1 strip by Other route in the morning and 1 strip inthe evening. 04/10/23 Yes Historical Provider, losartan (Cozaar) 25 MG tablet Take 12.5 mg by mouth. 03/11/23 Yes Historical Provider, metFORMIN (Glucophage) 1000 MG tablet Take 1 tablet by mouth in the morning and 1 tablet in the evening. Take with meals. 01/16/23 07/15/23 Yes Historical Provider, pregabalin (Lyrica) 150 MG capsule TAKE 1 CAPSULE BY MOUTH TWICE DAILY AT SUPPER AND BEDTIME 03/25/23 09/24/23 Yes Historical Provider, promethazine (Phenergan) 25 MG tablet Take 25 mg by mouth every 6 hours as needed. 01/21/23 Yes Historical Provider, Respiratory Therapy Supplies (CareTouch CPAP & BIPAP Hose) [facility] Formal mask fitting to considersmaller FFM like [employer] due to dry eyes and supplies for bipap 13/8cmH2O DME [employer] 02/16/22 03/03/50 Yes Historical Provider, semaglutide (Ozempic) 4 MG/3ML solution pen-injector 1 mg. 04/10/23 Yes Historical Provider, ascorbic acid (Vitamin C) 500 MG tablet Take 500 mg by mouth daily at bedtime. Historical Provider, cholecalciferol (Vitamin D-3) 50 MCG (2000 UT) tablet Take 2,000 Units by mouth in the morning. Historical Provider, citalopram (CeleXA) 40 MG tablet Take 40 mg by mouth in the morning. Historical Provider, clopidogrel (Plavix) 75 MG tablet Take 75 mg by mouth daily. Historical Provider, ferrous sulfate 325 (65 Fe) MG tablet Take 325 mg by mouth. Historical Provider, isosorbide dinitrate (Isordil) 40 MG tablet Take 40 mg by mouth daily. Historical Provider, Red Yeast Rice Extract 600 MG tablet Historical Provider, Physical Exam: BP (!) 159/99 Pulse 73 Temp 36.4 C (97.5 F) (Temporal) Resp 16 Ht 5' 5 (1.651 m) Wt 192 lb (87.1 kg) SpO2 99% BMI 31.95 kg/m Physical Exam Constitutional: Appearance: She is not toxic-appearing or diaphoretic. HENT: Head: Normocephalic and atraumatic. Mouth/Throat: Mouth: Mucous membranes are dry. Pharynx: No posterior oropharyngeal erythema. Eyes: General: No scleral icterus. Neck: Comments: No JVD Cardiovascular: Rate and Rhythm: Normal rate. Heart sounds: Murmur heard. Comments: Grade 2 systolic murmur across the precordium Pulmonary: Effort: Pulmonary effort is normal. Comments: Scattered rhonchi over bilateral posterior nunez Abdominal: Palpations: Abdomen is soft. Tenderness: There is no guarding. Musculoskeletal: Right lower leg: No edema. Left lower leg: No edema. Skin: General: Skin is warm and dry. Psychiatric: Mood and Affect: Mood normal. Behavior: Behavior normal. Pertinent Labs: At OSH prior to transfer BMP: Scr 0.78, BUN 13 CBC: WBC 9.1, hgb 11.5, hematocrit 36.8, platelets 214 Troponin I, high sensitivity: 212 Cardiac Injury Profile: No results for input(s): CKTOTAL, CKMB, CKMBINDEX, TROPONINI in thelast 72 hours. Lipid Profile: No results found for: TRIG, HDL, LDLCALC, CHOL Hemoglobin A1C: No results found for: HGBA1C Repeat Labs Pending Chest Imaging: - CXR: 04/27/23 st OSH: no acute cardiopulmonary process Cardiac Studies: - EK:45, T wave inversions in anterior leads concerning for ischemia Cardiac Cath 2018 at OSH LV gram: EF 58% Normal LVEDP Known occluded YATES to LAD SVG to PDA of RCA with high-grade stenosis, LENA placement x 2 to proximal and distal graft Principal Problem: NSTEMI (non-ST elevated myocardial infarction) (CMS/HCC) ([facility]) ASSESSMENT / PLAN: NSTEMI Hx of CABG, PCI HLD CD of 04/28 [facility] films included in patient chart for review - plan for [facility] tomorrow for SVG intervention after lesion noted on 04/29 OSH LH - continue heparin gtt - continue home ezetimibe - consider initiation of PCSK-9 as patient with extensive CAD hx and reported statin-associated myalgias - continue home plavix, patient with ASA allergy - continue home Imdur - telemetry monitoring for aberrant rhythms in the setting of ischemia - risk stratification with hgb A1c, lipid panel - begin BB Systolic Murmur - complete TTE ordered to assess for valvular disease Acute Hypoxic Respiratory Failure Patient with light, coarse breath sounds over posterior nunez CXR report from OSH without pulmonary infiltrate - respiratory viral panel - consider gentle diuresis pending LVEDP on upcoming [facility] - hold previously prescribed doxycycline as patient reporting tongue swelling after 04/27 dose, no infiltrate on OSH CXR suggesting infiltrative or bacterial PNA HTN SBP 150s-160s since her arrival - continue home losartan DM - hold home metformin - hypoglycemia protocol ordered - Goals of Care: Full Code - DVT Prophylaxis: On heparin gtt - Diet: NPO at midnight - BMI Classification: Body mass index is 31.95 kg/m . - Disposition: Admit to CCU. Associated attestation - Chris Licona MD - 04/30/2023 8:39 PM EST I, Dr. Chris Licona, saw and evaluated the patient on 04/30/2023. I personally obtained the nicholson and critical portions of the history and physical exam. I reviewed the medical record including labs, imaging studies, and notes. I discussed the patient with the medical claims representative, and I agree with the resident's medical decision making. 68 y.o. female with history of prior CABG in 2000 with subsequent PCI in 2019 with overlap LENA to SVG to RPDA who presented to [facility] with new anginal chest discomfort and small non-STEMI with elevated high-sensitivity troponin. She also reported some recent viral respiratory symptoms. Cardiac cath performed at [facility] shows mild disease of left main, proximal LAD, and circumflex with mid LAD [employer]ERK. Small diagonal branch patent antegradely and also has competitive flow from patent small caliber YATES graft. OPERATING COST CLERK of [place] RCA as well as radial artery graft to OM/ramus. Prior SVG to RPDA had prior overlap stents in the proximal to mid vessel with severe in-stent restenosis in the proximal segment as well as severe disease in the distal aspect of the graft. Moderate diffuse diseaseof RPDA. Limited collaterals from diagonal branch and RPDA to distal LAD. EF normal by prior echo at [facility]. Patient transferred to [facility] for SVG PCI. She remained stable, but had some mild stuttering chest discomfort, managed with nitroglycerin infusion. Stable hemodynamics. She remains on IV heparin. She is on chronic Plavix and reports intolerance to full dose aspirin (GI upset) and statin (myalgia). Labs here demonstrate creatinine 0.7, BNP 1770, normal CBC, troponin 0.06, direct LDL 86, triglycerides 463. Plan staged PCI of SVG to RPDA today to address both proximal and distal graft lesions. Risk, benefits, alternatives discussed with patient and her family, and patient agrees to proceed. Anticipate right femoral approach again given inability to perform cath at [facility] from right arm, and prior left radial artery harvesting for bypass graft. Pharmacotherapy discussed at length, and patient agreeable to try baby aspirin which will be started precath. Additionally, recommend switching Plavix to Brilinta, and loading dose given. Continue Zetia. Consider additional treatment of triglycerides, andrecommend outpatient PCSK9 inhibitor. Patient to follow long-term with cardiology at [facility] (Dr. Osorio). Chris Licona MD documented in this [facility]11-13-2023 Nurse Note* Dianne Pressley RN - 04/29/2023 6:27 PM EST 1822 pt arrived from [facility] heparin drip running at 800 units/8ml/hr pt pulled over in bed radial site intact, right femoral site has pressure dressing intact pt denies pain, no apparent distress, messaged primary team for orders 1826 pt states she has many allergies but cannot recall all of them, states her boyfriend can bringin a list tomorrow, also states she cannot recall all her meds but some I wish my head was clearer states her boyfriend can try to take a picture of them tonight if he knows how to or he can bring the list in tomorrow [facility]11-13-2023 Consult note Author Frank Spring [facility] April 29, 2023 2:13pm Note Date/Time April 29, 2023 2:13pm [facility] Medical Records Department [address] [place] [address] Counseling Note - Pharmacy 04/29/23 1413 MR#: [id number] Acct: [id number] Name: ELSA PUGH Rep #:[id number] : 1955 68 From: Frank Spring PCP: Dr. Redd Linda MD Status :ADM IN Location: [place] [address] Pharmacy [place] Med Reconciliation Pharmacy Service has performed discharge medication reconciliation for this patient. The patient's discharge medication list was reviewed for discrepancies and discrepancies were resolved. Medications at Discharge Home Medications magnesium gluconate 12.5 mg magnesium (250 mg) tablet 250 mg PO DAILY 01/28/21 ascorbate calcium (vitamin C) 500 mg tablet 500 mg PO DAILY 10/26/21 mecobalamin (vitamin B12) 5,000 mcg lozenge 5,000 mcg PO DAILY 10/26/21 red yeast rice 600 mg capsule 600 mg PO DAILY 10/26/21 pregabalin 150 mg capsule 150 mg PO BID 02/27/22 cholecalciferol (vitamin D3) 25 mcg (1,000 unit) capsule 25 mcg PO DAILY 06/04/22 isosorbide mononitrate 30 mg tablet,extended release 24 hr 30 mg PO DAILY #30 tabs 06/25/22 ranolazine 1,000 mg tablet,extended release,12 hr 1,000 mg PO BID #180 tabs 06/25/22 citalopram 40 mg tablet 40 mg PO DAILY #90 tabs 08/22/22 nitroglycerin 0.4 mg sublingual tablet 0.4 mg sublingual Q5-15M PRN chest pain #25 tabs 10/15/22 metformin 500 mg tablet 1,000 mg PO BID 01/21/23 ezetimibe 10 mg tablet 10 mg PO DAILY 03/11/23 losartan 25 mg tablet 12.5 mg PO DAILY 03/11/23 albuterol sulfate 90 mcg/actuation aerosol inhaler 1 puff inhalation Q6H PRN shortness of breath or wheezing 04/27/23 doxycycline monohydrate 100 mg capsule 100 mg PO Q12H 04/27/23 semaglutide 1 mg/dose (4 mg/3 mL) subcutaneous pen injector (Ozempic) 1 mg subcut QWEEK 04/27/23 heparin (porcine) 25,000 unit/250 mL (100 unit/mL) in dextrose 5 % IV 25,000 unit continuous IV infusion .Q25H 1 day #1 mL 04/29/23 heparin (porcine) 5,000 unit/mL injection solution 0 unit (0 mL) IV UD PRN dose adjustment 1 day #1 mL 04/29/23 04/29/23 1413 <Electronically signed by Frank vega> Date _ Frank Gage Signature (if applicable): Date CC: ~ Signed [facility] Work Phone: 1(216) 414-555211-13-2023 Discharge summary [facility] April 29, 2023 1:49pm Note Date/Time April 29, 2023 1:45pm [facility] Medical Records Department [address] [facility] [address] Instructions for Home/Discharge Instructions 04/29/23 1345 MR#: [id number] Acct: [id number] Name: ELSA PUGH Rep #:[id number] : 1955 68 From: Helio little DO PCP: Dr. Redd Linda MD Status :ADM IN Discharge Instructions Diet Discharge Diet: No restrictions Activity Discharge Activity: Return to Normal Activity Weight Bearing Status: Full weight bearing Follow Up Care Test Results: Test results from this visit will be discussed in further detail at your follow- up appointment, if applicable. Discharge Plan Admission Admit Date/Time: 04/27/23 12:44 Primary Reason for Your Visit: NSTEMI Attending Provider: Helio Yuen Primary Care Provider: Redd Linda Consulting Providers: Joan Mai; Chris Edge Instructions Additional Instructions / Restrictions: Patient transferred to [facility] for further care per cardiologyrecommendations. Heparin drip continued on discharge, held home Plavix per cardiology recommendations. Discharge Orders/Prescriptions Prescriptions: New heparin (porcine) 5,000 unit/mL Solution 0 unit IV UD PRN (Reason: dose adjustment) 1 Days Qty: 1 0RF heparin (porcine) in 5 % dex 25,000 unit/250 mL(100 unit/mL) Parenteral Solution 25,000 unit continuous IV infusion .Q25H 1 Days Qty: 1 0RF Protocol: NSTEMI / Thrombolytic Wt-Based Heparin Condition: Patient Weight (kg): THROMBOLYTIC PROTOCOL Dose/Route: Initial Heparin Bolus (Vial: 5000 units/ml) Instruction: Initial Heparin Infusion Rate (25,000 units/250ml D5W) Condition: 30-40 kg Dose/Route: 2,000 units (0.4 ml) Instruction: 400 units/hr Condition: 40.1-50 kg Dose/Route: 3,000 units (0.6 ml) Instruction: 550 units/hr Condition: 50.1-60 kg Dose/Route: 3,500 units (0.7 ml) Instruction: 700 units/hr Condition: 60.1-70 kg Dose/Route: 4,000 units (0.8 ml) Instruction: 800 units/hr Condition: 70.1-80 kg Dose/Route: 4,000 units (0.8 ml) Instruction: 900 units/hr Condition: >80 kg Dose/Route: 4,000 units (0.8 ml) Instruction: 1000 units/hr Protocol Text: Heparin Weight Based: THROMBOLYTIC aPTT: <41 Bolus w/Heparin: 1,000 units Stop Heparin infusion: 0 Rate change (units/hr): Increase 200 units (+2ml/hr) Repeat aPTT: 6 hours after rate change aPTT: 41-54 Bolus w/Heparin: 0 Stop Heparin infusion: 0 Rate change (units/hr): Increase 100 units (+1ml/hr) Repeat aPTT: 6 hours after rate change aPTT: 55-67 *GOAL* NOTE: aPTT is NOT at goal therapy unless TWO consecutive aPTT levels are within goal range-- Bolus w/Heparin: 0 Stop Heparin infusion: 0 Rate change (units/hr): 0 Repeat aPTT: 6 hours after aPTT results, unless second aPTT in a row in goal and therapy has ran >24 hours, then next morning aPTT: 68-79 Bolus w/Heparin: 0 Stop Heparin infusion: 0 Rate change (units/hr): Decrease 100 units (-1 ml/hr) Repeat aPTT: 6 hours after rate change aPTT: 80-92 Bolus w/Heparin: 0 Stop Heparin infusion: 30 minutes Rate change (units/hr): Decrease 100 units (-1 ml/hr) Repeat aPTT: 6 hours after rate change aPTT: 93-104 Bolus w/Heparin: 0 Stop Heparin infusion: 1 hour Rate change (units/hr): Decrease 200 units (-2 ml/hr) Repeat aPTT: 6 hours after rate change aPTT: >104 Bolus w/Heparin: 0 Stop Heparin infusion: 90 minutes Rate change (units/hr): Decrease 300 units (-3 ml/hr) Repeat aPTT: 6 hours after rate change Is an initial BOLUS dose to be given? Yes Continued red yeast rice 600 mg capsule 600 mg PO DAILY Rx Instructions: give with meal/snack mecobalamin (vitamin B12) 5,000 mcg lozenge 5,000 mcg PO DAILY Rx Instructions: allow to dissolve in mouth OR may chew lightly before swallowing ascorbate calcium (vitamin C) 500 mg tablet 500 mg PO DAILY pregabalin 150 mg capsule 150 mg PO BID Patient Comments: TAKE 1 CAPSULE BY MOUTH TWICE DAILY FOR 30 DAYS (TAKE ONE CAPSULE AT DINNER AND ONE CAPSULE BEFORE BED) isosorbide mononitrate 30 mg tablet extended release 24 hr 30 mg PO DAILY Qty: 30 11RF ranolazine 1,000 mg tablet extended release 12 hr 1,000 mg PO BID Qty: 180 3RF cholecalciferol (vitamin D3) 25 mcg (1,000 unit) capsule 25 mcg PO DAILY magnesium gluconate 12.5 mg magne- sium (250 mg) Tablet 250 mg PO DAILY metformin 500 mg tablet 1,000 mg PO BID albuterol sulfate 90 mcg/actuation HFA aerosol inhaler 1 puff INHALATION Q6H PRN (Reason: shortness of breath or wheezing) doxycycline monohydrate 100 mg capsule 100 mg PO Q12H Rx Instructions: X7D FIRST DOSE 04/26 Ozempic 1 mg/dose (4 mg/3 mL) pen injector 1 mg SUBCUT QWEEK citalopram 40 mg tablet 40 mg PO DAILY Qty: 90 3RF nitroglycerin 0.4 mg tablet, sublingual 0.4 mg sublingual Q5-15M PRN (Reason: chest pain) Qty: 25 3RF Rx Instructions: do not exceed 3 doses per episode losartan 25 mg tablet 12.5 mg PO DAILY ezetimibe 10 mg tablet 10 mg PO DAILY Discontinued clopidogrel 75 mg tablet See Rx Instructions .ROUTE .COMPLEX Qty: 90 3RF Dose Instruction: Take 1 tablet by mouth once daily Rx Instructions: Take 1 tablet by mouth once daily Referrals / Follow Up: Redd Linda MD [Primary Care Provider] - Disposition Disposition (needs filled in before D[facility]C [facility] 04[facility] 1349<Electronically signed by Helio Yuen DO>Helio Yuen DO CC: Dr. Redd Linda MD; Dr. Chris Edge DO; Dr. Joan Mai MD ~ Signed [facility] Work Phone: 1(772) 999-182711-13-2023 Procedure [facility] 04-28-2023 Consult note Author Joan Mai [facility] April 28, 2023 1:30pm Note Date/Time April 28, 2023 1:29pm [facility] Medical Records Department [address] [place] [address] Consultation - Cardiology 04/28/23 1327 MR#: [id number] Acct: [id number] Name: ELSA PUGH Rep #:[id number] : 1955 68 From: Joan rodriguez MD PCP: Dr. Redd Linda MD Status :ADM IN Location: [place] [id number] Assessment & Plan Assessment/Plan (1) Non-ST elevation AR (NSTEMI): PLAN: Continue heparin drip. Coronary angiography tomorrow. Risks and benefitsdiscussed. HPI Consult Data Date of Consult: 04/28/23 HPI Narrative Reason for Consultation: Non-STEMI HPI Narrative: ELSA LEXY, is a 68 F who presents a sensation of her tongue getting swollen after starting antibiotics for upper respiratory symptoms. Patient was also complaining of chest discomfort radiating to her back and shoulder. This is similar to the pain that she has had prior to stents and bypass surgery. Hertroponin was elevated and has been trending down. She has an extensive cardiac history. Dates back to 2002 when she was evaluatedwith chest pain and palpitations. She had had cardiac catheterizations in 1997 as well as 2001. At that time significant coronary disease was noted and she underwent coronary bypass surgery in 2001 with a left internal mammary artery tothe left anterior descending artery, radial artery to the first obtuse marginal branch, and a sequential saphenous vein graft to the posterior descending arteryand second right posterior descending artery. In addition, she had a history ofhypertension, hyperlipidemia, low HDL syndrome, hyper homocystinemia, intolerance of statins and mvh-bmluwqf-ibuyjjycw diabetes mellitus. She has hadnumerous cardiac procedures including PCI in 2012 with a drug-eluting stent to the saphenous vein graft to right posterior descending artery, in 2014 with a drug-eluting stent to the proximal LAD and in-stent stenosis of the saphenous vein graft to the posterior descending artery. In 2015 she had a PCI to the saphenous vein graft to the posterior descending artery. In 2016 she had in-stent restenosis of that vessel as well as in 2017. Her catheterization in August 2017 demonstrated a normal left main coronary artery, and left circumflex artery which had 25 to 30% proximal stenosis, and left anterior descending artery which had a stented proximal portion the mid segment had a 40 to 50% stenosis, the left internal mammary artery to the left anterior descending artery was noted to be occluded, the right coronary artery was occluded, the saphenous vein graft to the posterior descending artery was patent. The distal body of the graft was a stented segment with 90% stenosis and therefore she underwent successful catheter-based drug-eluting stent placement to the proximal and distal body of the saphenous vein graft. The radial artery was noted to be previously occluded. [facility] Medical History Acute kidney failure Alcohol use Ambulates with cane Anemia Anxiety and depression Arthritis Atherosclerosis of coronary artery 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 Atherosclerotic heart disease of [place] coronary artery without angina pectoris Back pain [facility] Cardiology follow-up encounter Chest pain Concussion COVID CPAP (continuous positive airway pressure) dependence Diabetes Difficulty chewing Difficulty swallowing Epigastric pain Essential hypertension Former smoker Gastric reflux GERD (gastroesophageal reflux disease) Headache Hiatal hernia High cholesterol History of diverticulitis History of echocardiogram History of heart attack History of irregular heartbeat History of stress test Hyperhomocystinemia Hyperlipidemia Imbalance Injury of back Injury of head and neck Iron deficiency anemia Lymphedema Migraine headache Narcolepsy Obesity Obstructive sleep apnea Peripheral neuropathy Post-menopausal Proliferative diabetic retinopathy Restless legs Restless legs syndrome (RLS) Rheumatoid arthritis Shortness of breath on exertion Sleep apnea Type 2 diabetes mellitus Wears glasses Home Medications magnesium gluconate 12.5 mg magnesium (250 mg) tablet 250 mg PO DAILY 01/28/21 [History Last Taken 04/26/23] ascorbate calcium (vitamin C) 500 mg tablet 500 mg PO DAILY 10/26/21 [History Last Taken 04/26/23] mecobalamin (vitamin B12) 5,000 mcg lozenge 5,000 mcg PO DAILY 10/26/21 [History Last Taken 04/26/23] red yeast rice 600 mg capsule 600 mg PO DAILY 10/26/21 [History Last Taken 04/26/23] pregabalin 150 mg capsule 150 mg PO BID 02/27/22 [History Last Taken 04/26/23] cholecalciferol (vitamin D3) 25 mcg (1,000 unit) capsule 25 mcg PO DAILY 06/04/22 [History Last Taken 04/26/23] isosorbide mononitrate 30 mg tablet,extended release 24 hr 30 mg PO DAILY #30 tabs 06/25/22 [Rx Last Taken 04/27/23] ranolazine 1,000 mg tablet,extended release,12 hr 1,000 mg PO BID #180 tabs 06/25/22 [Rx Last Taken 04/27/23] citalopram 40 mg tablet 40 mg PO DAILY #90 tabs 08/22/22 [Rx Last Taken 04/27/23] nitroglycerin 0.4 mg sublingual tablet 0.4 mg sublingual Q5-15M PRN chest pain #25 tabs 10/15/22 [Rx Last Taken Unknown] metformin 500 mg tablet 1,000 mg PO BID 01/21/23 [History Last Taken 04/27/23] ezetimibe 10 mg tablet 10 mg PO DAILY 03/11/23 [History Last Taken 04/26/23] losartan 25 mg tablet 12.5 mg PO DAILY 03/11/23 [History Last Taken 04/27/23] clopidogrel 75 mg tablet See Rx Instructions .Route .COMPLEX #90 tabs 03/15/23 [Rx Last Taken 04/27/23] albuterol sulfate 90 mcg/actuation aerosol inhaler 1 puff inhalation Q6H PRN shortness of breath or wheezing 04/27/23 [History Last Taken Unknown] doxycycline monohydrate 100 mg capsule 100 mg PO Q12H 04/27/23 [History Last Taken 04/26/23] semaglutide 1 mg/dose (4 mg/3 mL) subcutaneous pen injector (Ozempic) 1 mg subcut QWEEK 04/27/23 [History Last Taken 04/25/23] Allergy/AdvReac Type Severity Reaction Status Date / Time aspirin Allergy Rash Verified 04/27/23 10:31 banana Allergy Hives Verified 04/27/23 10:31 canagliflozin [From Invokana] Allergy Anaphylaxis Verified 04/27/23 10:31 kiwi Allergy Hives Verified 04/27/23 10:31 niacin Allergy Rash Verified 04/27/23 10:31 Penicillins [PCN] Allergy Hives Verified 04/27/23 10:31 Sulfa (Sulfonamide Allergy Hives Verified 04/27/23 10:31 Antibiotics) erythromycin base AdvReac Other Verified 04/27/23 10:31 [From Staticin] ethyl alcohol [From Staticin] AdvReac Other Verified 04/27/23 10:31 gemfibrozil [From Lopid] AdvReac Other Verified 04/27/23 10:31 ibuprofen AdvReac Upset Verified 04/27/23 10:31 Stomach levofloxacin [From Levaquin] AdvReac Upset Verified 04/27/23 10:31 Stomach lisinopril AdvReac cough Verified 04/27/23 10:31 propoxyphene AdvReac Upset Verified 04/27/23 10:31 [From Darvocet-N] Stomach spironolactone AdvReac hyperkalemi Verified 04/27/23 10:31 a Ouiedzq-NUH-QkX Reductase AdvReac unknown Verified 04/27/23 10:31 Inhibitor [Yqmqeup-Jec-Qxg Reductase Inhibitor] tramadol AdvReac Other Verified 04/27/23 10:31 Family History Mother Heart disease Father Heart disease Diabetes Surgical History H/O coronary artery bypass surgery (10/2001) History of cataract surgery History of cholecystectomy History of colonoscopy with polypectomy History of coronary artery stent placement (08/29/17) History of hysterectomy History of left heart catheterization History of tonsillectomy Social History household members: spouse Smoking Status: Former smoker how long ago did patient quit smokin alcohol intake: current alcohol intake frequency: holidays/special occasions only Alcohol type: beer substance use type: does not use what type of physical activity do you participate in: walking frequency: 5-6 times per week Physical Exam Const alert and oriented x3 HEENT normocephalic Eyes no scleral icterus Resp normal respiratory effort Psych mental status grossly normal Risk Stratification Risk Stratification Applicable: No Charges/Coding Visit Charges Inpatient E&M: 65028 Init Hosp L2 Objective Data Vital Signs: Vital Signs Temp Pulse Resp BP Pulse Ox O2 Del Method O2 Flow Rate 97.2 F L 62 18 130/60 H 95 Room Air 2 04/28/23 10:00 04/28/23 10:00 04/28/23 10:00 04/28/23 10:00 04/28/23 10:00 04/28/23 10:00 04/28/23 04:45 Oxygen Flow Rate (L/min) 2 Oxygen Delivery Method Room Air Weight: 192 lb 10.944 oz Body Mass Index (BMI) 32.1 Intake & Output: Intake and Output for Last 24 Hours 04/26/23 04/27/23 04/28/23 23:59 23:59 23:59 Intake Total 1390 / 1390 2074.89 / 2074.89 Balance 1390 / 1390 2074.89 / 2074.89 Lab / Micro Data 04/27/23 11:35 04/28/23 01:45 Labs: Laboratory Results - last 24 hr 04/27/23 16:31: POC Glucose 175 H 04/27/23 17:35: Troponin I High Sens 411 H* 04/27/23 19:25: Troponin I High Sens 354 H* 04/27/23 19:30: APTT 62.0 H 04/27/23 21:08: POC Glucose 212 H 04/27/23 23:55: Troponin I High Sens 212 H* 04/28/23 01:45: APTT 50.4 H, Sodium 133 L, Potassium 3.7, Chloride 103, Carbon Dioxide 24.0, Anion Gap 6, BUN 17, Creatinine 0.84, Estim Creat Clear Calc 56.88, Est GFR (MDRD) Af Amer 87, Est GFR (MDRD) Non-Af 72, BUN/Creatinine Ratio20.3 H, Glucose 187 H, Calcium 8.6 04/28/23 06:04: POC Glucose 196 H 04/28/23 08:04: APTT 53.3 H 04/28/23 11:26: POC Glucose 241 H Micro: Microbiology 04/27/23 Unknown Nasal Secretion SARS-CoV-2 Antigen (Rapid) - Final Cardiology Labs/Tests 04/27/23 19:30: APTT 62.0 H 04/28/23 01:45: APTT 50.4 H, Sodium 133 L, Potassium 3.7, Chloride 103, Carbon Dioxide 24.0, Anion Gap 6, BUN 17, Creatinine 0.84, Est GFR (MDRD) Af Amer 87, Est GFR (MDRD) Non-Af 72, BUN/Creatinine Ratio 20.3 H, Glucose 187 H, Calcium 8.6 04/28/23 08:04: APTT 53.3 H Rhythm: EKG: ECHO: Stress Test: Cardiac Cath: PCI: CT Surgery: Holter monitor: EPS: PPM: CXR: Chest CT Scan: 04/28/23 1330 <Electronically signed by Jona Mai MD> Cosigner Signature (if applicable): CC: Dr. Redd Linda MD; Dr. Joan Mai MD~ Signed [facility] Work Phone: 1(393) 693-479411-12-2023 Progress note Author Chris Edge [facility] April 28, 2023 9:23am Note Date/Time April 28, 2023 9:23am [facility] Medical Records Department [address] [place] [address] Progress Note - Hospitalist 04/28/23920 MR#: [id number] Acct: [id number] Name: ELSA PUGH Rep #:[id number] : 1955 68 From: Chris Edge DO PCP: Dr. Redd Linda MD Status :ADM IN Location: [place] [address] Reason for Visit Reason for Visit: Diagnoses Non-ST elevation (NSTEMI) myocardial infarction (04/27/23) Subjective Subjective Patient was seen and examined today, she has no complaints of any chest pain. Her troponins peaked at 582, she is still coughing, her COVID test was negative. Voice is better today. Objective Data Objective Data Vital Signs: Vital Signs Temp Pulse Resp BP Pulse Ox O2 Del Method O2 Flow Rate 97.9 F 61 16 115/68 94 Room Air 2 04/28/23 04:45 04/28/23 04:45 04/28/23 04:45 04/28/23 04:45 04/28/23 04:45 04/28/23 08:51 04/28/23 04:45 Oxygen Flow Rate (L/min) 2 Oxygen Delivery Method Room Air Weight: 87.4 kg Body Mass Index (BMI) 32.1 Intake & Output: Intake and Output for Last 24 Hours 04/26/23 04/27/23 04/28/23 23:59 23:59 23:59 Intake Total 1390 / 1390 1674.09 / 1674.09 Balance 1390 / 1390 1674.09 / 1674.09 Lab / Micro Data 04/27/23 11:35 04/28/23 01:45 Labs: Laboratory Results - last 24 hr 04/27/23 11:35: WBC 11.5 H, RBC 4.67, Hgb 13.8, Hct 42.1, MCV 90.1, MCH 29.6, MCHC 32.8, RDW Std Deviation 44.8 H, RDW Coeff of Nancy 13.4, Plt Count 263, MPV 11.0, Immature Gran % (Auto) 0.400, Neut % (Auto) 59.1, Lymph % (Auto) 26.5, Tyrrell % (Auto) 12.5 H, Eos % (Auto) 1.1, Baso % (Auto) 0.4, Absolute Neuts (auto)6.8, Absolute Lymphs (auto) 3.05, Nucleated RBC % 0, PT 14.1, INR 1.1, APTT 33.4, Sodium 135 L, Potassium 3.3 L, Chloride 98, Carbon Dioxide 32.0, Anion Gap5, BUN 18, Creatinine 1.03 H, Estim Creat Clear Calc 46.39, Est GFR (MDRD) Af Amer 68, Est GFR (MDRD) Non-Af 56 L, BUN/Creatinine Ratio 17.5, Glucose 146 H, Calcium 9.2, Magnesium 1.7, Troponin I High Sens 582 H* 04/27/23 16:31: POC Glucose 175 H 04/27/23 17:35: Troponin I High Sens 411 H* 04/27/23 19:25: Troponin I High Sens 354 H* 04/27/23 19:30: APTT 62.0 H 04/27/23 21:08: POC Glucose 212 H 04/27/23 23:55: Troponin I High Sens 212 H* 04/28/23 01:45: APTT 50.4 H, Sodium 133 L, Potassium 3.7, Chloride 103, Carbon Dioxide 24.0, Anion Gap 6, BUN 17, Creatinine 0.84, Estim Creat Clear Calc 56.88, Est GFR (MDRD) Af Amer 87, Est GFR (MDRD) Non-Af 72, BUN/Creatinine Ratio20.3 H, Glucose 187 H, Calcium 8.6 04/28/23 06:04: POC Glucose 196 H 04/28/23 08:04: APTT 53.3 H Micro: Microbiology 04/27/23 Unknown Nasal Secretion SARS-CoV-2 Antigen (Rapid) - Final Radiography Diagnostic Testing: Radiology Impression Chest X-Ray 04/27/23 10:41 IMPRESSION: No acute cardiopulmonary disease. Electronically Signed: Nura Russell MD at 11:56 EST , Physical Exam Const alert, oriented x3, no apparent distress, average body habitus and healthy appearing General Appearance: cooperative, well kempt and well developed Orientation / Consciousness: awake, oriented to person, oriented to place and oriented to time HEENT normocephalic, head/scalp atraumatic and moist oral mucous membranes HEENT Narrative: Patient is slightly hoarse Eyes PERRL, EOMs intact bilaterally and conjunctivae normal Neck supple, no JVD, thyroid normal and no carotid bruits General: trachea midline Resp normal respiratory effort, no retractions, no use of accessory muscles and clearto auscultation bilaterally Auscultation: Negative for rales, rhonchi or wheezes Cardio regular rate, regular rhythm, S1 normal heart sound, S2 normal heart sound, no murmurs, no rub and no gallops GI normal to inspection, nondistended, normoactive bowel sounds, soft to palpation,non-tender and non-distended Extremity no clubbing, cyanosis or edema Skin no rashes or lesions noted General Skin Exam: no breakdown Neuro oriented x3, CN's II-XII intact bilaterally, moves all extremities, no focal motor deficits and no sensory deficits noted Sensorium / Orientation: awake, alert, oriented to person, oriented to place andoriented to time Speech: speech normal Psych affect normal Assessment & Plan Assessment/Plan (1) Non-ST elevation AR (NSTEMI): PLAN: Plan 1. Fvm-[id number]-sciazml remains on a heparin drip at this time and Plavix, she will undergo cardiac catheterization tomorrow #2 upper respiratory tract infection-most probably viral in nature, I wrote for the patient have cough syrup today #3 coronary artery disease-patient has a past history of coronary artery diseasewith stent placement, she will remain on her home medications #4 type 2 diabetes-patient's blood sugars will be monitored, sliding scale insulin will be given as necessary #5 hypokalemia-patient was given IV potassium, labs will be rechecked tomorrow #6 essential hypertension-patient will remain on her present medications #7 hyperlipidemia-patient is on Zetia #8 chronic depression-patient is on Celexa Total clinical time spent by myself addressing the patient's medical issues, reviewing all of her data, and collaborating with patient's care team: 25 minutes Charges/Coding Visit Charges Inpatient E&M: 99662 Subs Hosp L1 04/28/23 0923 <Electronically signed by Chris Edge DO> Cosigner Signature (if applicable): CC: ~ Signed [facility] Work Phone: 1(287) 332-507411-11-2023 Discharge summary Author Usha Santos [facility] April 27, 2023 9:34pm Note Date/Time April 27, 2023 10:50am [facility] Medical Records Department [address] [place] [address] Emergency Department Summary 04/27/23 MR#: [id number] Acct: [id number] Name: ELSA PUGH Rep #:[id number] 1 : 1955 68 From: Usha Santos MD PCP: Dr. Redd Linda MD Status :ADM IN Location: [place] [address] HPI History of Present Illness Chief Complaint: Shortness of Breath Informant: patient Narrative Narrative: Patient presents secondary to concern for allergic reaction. She has had a URI for about the last 10 days. [facility] and was placed on doxycycline. She states that she has had this in the past, but does have multiple antibiotic allergies. She took a dose last evening and states shedid not feel well after. About 1/2-hour after taking her morning dose today shefelt like she had some slight tongue swelling and some shortness of breath. No rash or itching. She states she feels nauseated and has a headache. [facility] Medical History Acute kidney failure Alcohol use Ambulates with cane Anemia Anxiety and depression Arthritis Atherosclerosis of coronary artery 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 Atherosclerotic heart disease of [place] coronary artery without angina pectoris Back pain Blackout Cardiology follow-up encounter Chest pain Concussion COVID CPAP (continuous positive airway pressure) dependence Diabetes Difficulty chewing Difficulty swallowing Epigastric pain Essential hypertension Former smoker Gastric reflux GERD (gastroesophageal reflux disease) Headache Hiatal hernia High cholesterol History of diverticulitis History of echocardiogram History of heart attack History of irregular heartbeat History of stress test Hyperhomocystinemia Hyperlipidemia Imbalance Injury of back Injury of head and neck Iron deficiency anemia Lymphedema Migraine headache Narcolepsy Obesity Obstructive sleep apnea Peripheral neuropathy Post-menopausal Proliferative diabetic retinopathy Restless legs Restless legs syndrome (RLS) Rheumatoid arthritis Shortness of breath on exertion Sleep apnea Type 2 diabetes mellitus Wears glasses Home Medications magnesium gluconate 12.5 mg magnesium (250 mg) tablet 250 mg PO DAILY 01/28/21 [History Last Taken Unknown] ascorbate calcium (vitamin C) 500 mg tablet 500 mg PO DAILY 10/26/21 [History Last Taken Unknown] mecobalamin (vitamin B12) 5,000 mcg lozenge 5,000 mcg PO DAILY 10/26/21 [History Last Taken Unknown] red yeast rice 600 mg capsule 600 mg PO DAILY 10/26/21 [History Last Taken Unknown] pregabalin 150 mg capsule 150 mg PO BID 02/27/22 [History Last Taken Unknown] cholecalciferol (vitamin D3) 25 mcg (1,000 unit) capsule 25 mcg PO DAILY 06/04/22 [History Last Taken Unknown] isosorbide mononitrate 30 mg tablet,extended release 24 hr 30 mg PO DAILY #30 tabs 06/25/22 [Rx Last Taken Unknown] ranolazine 1,000 mg tablet,extended release,12 hr 1,000 mg PO BID #180 tabs 06/25/22 [Rx Last Taken Unknown] semaglutide 0.25 mg or 0.5 mg (2 mg/1.5 mL) subcutaneous pen injector (Ozempic) See Rx Instructions .Route .COMPLEX #2 mL 07/19/22 [Rx Last Taken Unknown] citalopram 40 mg tablet 40 mg PO DAILY #90 tabs 08/22/22 [Rx Last Taken Unknown] nitroglycerin 0.4 mg sublingual tablet 0.4 mg sublingual Q5-15M PRN chest pain #25 tabs 10/15/22 [Rx Last Taken Unknown] metformin 500 mg tablet 1,000 mg PO BID 01/21/23 [History Last Taken Unknown] ezetimibe 10 mg tablet 10 mg PO DAILY 03/11/23 [History Last Taken Unknown] losartan 25 mg tablet 25 mg PO DAILY 03/11/23 [History Last Taken Unknown] clopidogrel 75 mg tablet See Rx Instructions .Route .COMPLEX #90 tabs 03/15/23 [Rx Last Taken Unknown] Allergy/AdvReac Type Severity Reaction Status Date / Time aspirin Allergy Rash Verified 04/27/23 10:31 banana Allergy Hives Verified 04/27/23 10:31 canagliflozin [From Invokana] Allergy Anaphylaxis Verified 04/27/23 10:31 kiwi Allergy Hives Verified 04/27/23 10:31 niacin Allergy Rash Verified 04/27/23 10:31 Penicillins [PCN] Allergy Hives Verified 04/27/23 10:31 Sulfa (Sulfonamide Allergy Hives Verified 04/27/23 10:31 Antibiotics) erythromycin base AdvReac Other Verified 04/27/23 10:31 [From Staticin] ethyl alcohol [From Staticin] AdvReac Other Verified 04/27/23 10:31 gemfibrozil [From Lopid] AdvReac Other Verified 04/27/23 10:31 ibuprofen AdvReac Upset Verified 04/27/23 10:31 Stomach levofloxacin [From Levaquin] AdvReac Upset Verified 04/27/23 10:31 Stomach lisinopril AdvReac cough Verified 04/27/23 10:31 propoxyphene AdvReac Upset Verified 04/27/23 10:31 [From Darvocet-N] Stomach spironolactone AdvReac hyperkalemi Verified 04/27/23 10:31 a Xhrcmrt-QNO-VvK Reductase AdvReac unknown Verified 04/27/23 10:31 Inhibitor [Iwbonkd-Rra-Zug Reductase Inhibitor] tramadol AdvReac Other Verified 04/27/23 10:31 Family History Mother Heart disease Father Heart disease Diabetes Surgical History H/O coronary artery bypass surgery (10/2001) History of cataract surgery History of cholecystectomy History of colonoscopy with polypectomy History of coronary artery stent placement (08/29/17) History of hysterectomy History of left heart catheterization History of tonsillectomy Social History household members: spouse Smoking Status: Former smoker how long ago did patient quit smokin alcohol intake: current alcohol intake frequency: holidays/special occasions only Alcohol type: beer substance use type: does not use what type of physical activity do you participate in: walking frequency: 5-6 times per week ROS ROS ED Constitutional Constitutional ED: Denies chills or fever(s) Eyes Eyes: Denies change in vision or discharge from eye(s) ENT ENT ED: Reports other Details: Tongue swelling ; Denies discharge from eye(s), rhinorrhea or sore throat Cardiovascular Cardiovascular: Denies chest pain or palpitations Respiratory/Chest Respiratory/Chest: Reports dyspnea; Denies cough Gastrointestinal Gastrointestinal: Reports nausea; Denies abdominal pain or vomiting Genitourinary Genitourinary ED: Denies dysuria Musculoskeletal Musculoskeletal: Denies back pain or extremity pain Integumentary Denies Abrasions or rash Neurologic Neurologic: Reports headache(s); Denies weakness Psychiatric Psychiatric: Denies anxiety or depression Allergic/Immunologic Allergic/Immunologic ED: Denies lip swelling or urticaria EXAM Physical Exam Narrative Exam Narrative: Patient sitting upright at bedside in no acute distress. Speaking with a strongvoice and tolerating secretions well. Const Vital Signs: 04/27/23 10:31 04/27/23 10:58 Temperature 98 F Temperature Source Temporal Pulse Rate 70 Respiratory Rate 14 Respiratory Effort Normal Respiratory Depth Normal Respiratory Pattern Normal Blood Pressure 173/83 H Blood Pressure Mean 113 Pulse Ox 99 Oxygen Delivery Method Room Air Room Air Positive well nourished and well developed General Appearance ED: well developed HEENT Reports moist mucous membranes HEENT Narrative: Posterior pharynx exam reveals sinus drainage. No significant edema or erythema. No appreciable tongue swelling. Eyes PERRL and EOMs intact bilaterally Neck supple Neck Narrative: Mild bilateral cervical lymphadenopathy. Chest Wall inspection of chest normal and palpation of chest normal Resp normal respiratory effort and clear to auscultation bilaterally Cardio regular rate and regular rhythm GI non-tender Palpation: soft Extremity normal to inspection Neuro oriented x3 and no sensory deficits noted Motor Exam: strength 5/5 throughout Psych mental status grossly normal Skin no rashes or lesions noted MDM MDM MDM Narrative Medical decision making narrative: Patient placed on ekg monitor tech to observe her oxygen saturation level. Patient given Zofran, Solu-Medrol, and Pepcid. Patient was placed on ekg monitor tech to monitor out her oxygen saturation, however nursing staff noted that her rhythm strip did not look normal. When we compared this to old EKGs it did appear to be an acute change. Formal twelve-lead EKG is obtained along with lab work and troponin. Chest x-ray obtained to evaluate for acute lung pathology, cardiac size, or mediastinal abnormality. History & Record Review Discussion w/independent historian: Patient Additional record(s) reviewed:: Prior outpatient record and Prior labs Lab Data Attestation: I reviewed the patient's lab results. Labs: Laboratory Results - last 24 hr 04/27/23 11:35 WBC 11.5 H RBC 4.67 Hgb 13.8 Hct 42.1 MCV 90.1 MCH 29.6 MCHC 32.8 RDW Std Deviation 44.8 H RDW Coeff of Nancy 13.4 Plt Count 263 MPV 11.0 Immature Gran % (Auto) 0.400 Neut % (Auto) 59.1 Lymph % (Auto) 26.5 Tyrrell % (Auto) 12.5 H Eos % (Auto) 1.1 Baso % (Auto) 0.4 Absolute Neuts (auto) 6.8 Absolute Lymphs (auto) 3.05 Nucleated RBC % 0 PT 14.1 INR 1.1 APTT 33.4 Sodium 135 L Potassium 3.3 L Chloride 98 Carbon Dioxide 32.0 Anion Gap 5 BUN 18 Creatinine 1.03 H Estim Creat Clear Calc 46.39 Est GFR (MDRD) Af Amer 68 Est GFR (MDRD) Non-Af 56 L BUN/Creatinine Ratio 17.5 Glucose 146 H Calcium 9.2 Magnesium 1.7 Troponin I High Sens 582 H* Radiography Chest X-Ray - ED: 1 View, Read by ED Physician, Chronic Changes and No Infiltrates Diagnostic Testing: Clinical Impression(s) from Imaging Studies Chest X-Ray 04/27/23 10:41 IMPRESSION: No acute cardiopulmonary disease. Electronically Signed: Nura Russell MD at 11:56 EST , EKG Initial EKG: Attestation: I personally reviewed and interpreted this EKG as follows: Interpretation: Sinus Rhythm (Sinus at 61 with significant T wave inversion. This is new change when compared to prior study. Prolonged QTc at 638.) Follow-up EKG: Attestation: I personally reviewed and interpreted this EKG as follows: Interpretation: Sinus Bradycardia (Sinus bradycardia at 56 with continued wide T wave inversion. Not significantly changed when compared to prior from today. QTc remains long at 634.) Treatment and Re-Evaluation :: Patient does feel better as far as her nausea is concerned. CBC was a white count 11.5 with normal differential. Chemistry studies reveal slightly low potassium at 3.3. Glucose is 146. Renal function is unremarkable but her troponin is elevated at 582. Portable chest x-ray per my interpretation reveals no acutefindings. Radiology interpretation reviewed and agrees. EKG is abnormal as noted above. I was called back in the room stated the patient had had some chest pain. She states she had a very brief sharp pain to the left chest that is now resolved. I did review the ekg monitor tech and there were no changes noted. Repeat EKG reveals no changes when compared to prior study earlier today. I spoke Dr. Mai. Patient be started on a heparin drip and admitted for cycling of enzymes. I will replace her potassium IV and add a magnesium level. Plan will be to perform a heart cath on Saturday unless her symptoms supervisor records change the weekend at which point she will have an emergent cath. Discharge Plan Dx/Rx/DC Orders Clinical Impression: Non-ST elevation AR (NSTEMI), Acute electrocardiogram changes, Hypokalemia Disposition Disposition: Acute Care Hospital [facility] What to do if you have Problems For any increased pain, shortness of breath, bleeding, nausea or vomiting, chestpain, or any unexpected problems, contact your Primary Care Provider. Call [facility] ([phone]) or report to the closest Emergency Room. Call 911 if necessary. 04/27/232133 <Electronically signed by Usha Santos MD> Cosigner Signature (if applicable): CC: Dr. Redd Linda MD ~ Signed [facility] Work Phone: 1(853) 357-646211-11-2023 History and physical note Author Chris Edge [facility] April 27, 2023 2:57pm Note Date/Time April 27, 2023 2:57pm [facility] Medical Records Department [address] [place] [address] H&P Exam - Hospitalist 04/27/23 1447 MR#: [id number] Acct: [id number] Name: ELSA PUGH Katherine Rep #:[id number] 1 : 1955 68 From: Chris Edge DO PCP: Dr. Redd Linda MD Status :ADM IN Location: [facility] [id number] HPI - General General Date of Admission: 04/27/23 Date of Service: 04/27/23 Chief Complaint: Chest pain HPI Narrative ELSA PUGH, is a 68 F who presents to the emergency room at [facility] with shortness of breath and worsening upper respiratory symptoms, she went to urgent care yesterday and was placed on antibiotic, she stated that today she felt as if her tongue was swelling and she was short of breath. During her stay in the emergency room, she had an episode of sharp chest pain, she was on telemetry and the QRS complexes appear to show inverted Twaves, an EKG was done which showed inverted T waves in leads I, aVL, and V1 through V6. Troponin was obtained and it was elevated, she states the chest discomfort was sharp in nature and it only lasted approximately 10 minutes. Further work-up in the emergency room included a chest x-ray which was unremarkable, blood cell count was elevated 11.5, sodium was slightly low at 135and potassium was 3.3. Patient's creatinine was 1.03. Patient will be admitted to PCU for non-STEMI, cardiology was contacted by the emergency room physician and advised placing the patient on a heparin drip. Theplan is for the patient to undergo heart catheterization on 04/29/2023. [facility] Medical History Acute kidney failure Alcohol use Ambulates with cane Anemia Anxiety and depression Arthritis Atherosclerosis of coronary artery 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 Atherosclerotic heart disease of [place] coronary artery without angina pectoris Back pain [facility] Cardiology follow-up encounter Chest pain Concussion COVID CPAP (continuous positive airway pressure) dependence Diabetes Difficulty chewing Difficulty swallowing Epigastric pain Essential hypertension Former smoker Gastric reflux GERD (gastroesophageal reflux disease) Headache Hiatal hernia High cholesterol History of diverticulitis History of echocardiogram History of heart attack History of irregular heartbeat History of stress test Hyperhomocystinemia Hyperlipidemia Imbalance Injury of back Injury of head and neck Iron deficiency anemia Lymphedema Migraine headache Narcolepsy Obesity Obstructive sleep apnea Peripheral neuropathy Post-menopausal Proliferative diabetic retinopathy Restless legs Restless legs syndrome (RLS) Rheumatoid arthritis Shortness of breath on exertion Sleep apnea Type 2 diabetes mellitus Wears glasses Home Medications magnesium gluconate 12.5 mg magnesium (250 mg) tablet 250 mg PO DAILY 01/28/21 [History Last Taken 04/26/23] ascorbate calcium (vitamin C) 500 mg tablet 500 mg PO DAILY 10/26/21 [History Last Taken 04/26/23] mecobalamin (vitamin B12) 5,000 mcg lozenge 5,000 mcg PO DAILY 10/26/21 [History Last Taken 04/26/23] red yeast rice 600 mg capsule 600 mg PO DAILY 10/26/21 [History Last Taken 04/26/23] pregabalin 150 mg capsule 150 mg PO BID 02/27/22 [History Last Taken 04/26/23] cholecalciferol (vitamin D3) 25 mcg (1,000 unit) capsule 25 mcg PO DAILY 06/04/22 [History Last Taken 04/26/23] isosorbide mononitrate 30 mg tablet,extended release 24 hr 30 mg PO DAILY #30 tabs 06/25/22 [Rx Last Taken 04/27/23] ranolazine 1,000 mg tablet,extended release,12 hr 1,000 mg PO BID #180 tabs 06/25/22 [Rx Last Taken 04/27/23] citalopram 40 mg tablet 40 mg PO DAILY #90 tabs 08/22/22 [Rx Last Taken 04/27/23] nitroglycerin 0.4 mg sublingual tablet 0.4 mg sublingual Q5-15M PRN chest pain #25 tabs 10/15/22 [Rx Last Taken Unknown] metformin 500 mg tablet 1,000 mg PO BID 01/21/23 [History Last Taken 04/27/23] ezetimibe 10 mg tablet 10 mg PO DAILY 03/11/23 [History Last Taken 04/26/23] losartan 25 mg tablet 12.5 mg PO DAILY 03/11/23 [History Last Taken 04/27/23] clopidogrel 75 mg tablet See Rx Instructions .Route .COMPLEX #90 tabs 03/15/23 [Rx Last Taken 04/27/23] albuterol sulfate 90 mcg/actuation aerosol inhaler 1 puff inhalation Q6H PRN shortness of breath or wheezing 04/27/23 [History Last Taken Unknown] doxycycline monohydrate 100 mg capsule 100 mg PO Q12H 04/27/23 [History Last Taken 04/26/23] semaglutide 1 mg/dose (4 mg/3 mL) subcutaneous pen injector (Ozempic) 1 mg subcut QWEEK 04/27/23 [History Last Taken 04/25/23] Allergy/AdvReac Type Severity Reaction Status Date / Time aspirin Allergy Rash Verified 04/27/23 10:31 banana Allergy Hives Verified 04/27/23 10:31 canagliflozin [From Invokana] Allergy Anaphylaxis Verified 04/27/23 10:31 kiwi Allergy Hives Verified 04/27/23 10:31 niacin Allergy Rash Verified 04/27/23 10:31 Penicillins [PCN] Allergy Hives Verified 04/27/23 10:31 Sulfa (Sulfonamide Allergy Hives Verified 04/27/23 10:31 Antibiotics) erythromycin base AdvReac Other Verified 04/27/23 10:31 [From Staticin] ethyl alcohol [From Staticin] AdvReac Other Verified 04/27/23 10:31 gemfibrozil [From Lopid] AdvReac Other Verified 04/27/23 10:31 ibuprofen AdvReac Upset Verified 04/27/23 10:31 Stomach levofloxacin [From Levaquin] AdvReac Upset Verified 04/27/23 10:31 Stomach lisinopril AdvReac cough Verified 04/27/23 10:31 propoxyphene AdvReac Upset Verified 04/27/23 10:31 [From Darvocet-N] Stomach spironolactone AdvReac hyperkalemi Verified 04/27/23 10:31 a Ojrfblg-ZDZ-RfI Reductase AdvReac unknown Verified 04/27/23 10:31 Inhibitor [Oybrowd-Aqm-Ggu Reductase Inhibitor] tramadol AdvReac Other Verified 04/27/23 10:31 Family History Mother Heart disease Father Heart disease Diabetes Surgical History H/O coronary artery bypass surgery (10/2001) History of cataract surgery History of cholecystectomy History of colonoscopy with polypectomy History of coronary artery stent placement (08/29/17) History of hysterectomy History of left heart catheterization History of tonsillectomy Social History household members: spouse Smoking Status: Former smoker how long ago did patient quit smokin alcohol intake: current alcohol intake frequency: holidays/special occasions only Alcohol type: beer substance use type: does not use what type of physical activity do you participate in: walking frequency: 5-6 times per week ROS Constitutional Constitutional: Reports malaise; Denies anorexia, change in weight, chills, fatigue, fever(s), night sweats or weakness Eyes Eyes: Denies blurry vision, change in vision, discharge from eye(s) or eye pain ENT HEENT: Reports sore throat and other Details: Laryngitis Cardiovascular Cardiovascular: Denies chest pain, claudication, edema or palpitations Respiratory/Chest Respiratory/Chest: Reports dyspnea and shortness of breath with exertion; Deniescough, hemoptysis or shortness of breath at rest Gastrointestinal Gastrointestinal: Denies abdominal pain, constipation, diarrhea, hematemesis, hematochezia, melena, nausea or vomiting Genitourinary Genitourinary: Denies dysuria, hematuria, urinary frequency, urinary hesitancy, urinary incontinence or urinary urgency Musculoskeletal Musculoskeletal: Denies back pain, joint pain, joint stiffness, joint swelling, myalgias or neck pain Neurologic Neurologic: Denies abnormal gait, abnormal speech, confusion, disequilibrium, dizziness, focal weakness, headache(s), loss of vision, numbness, other visual disturbances, paresthesias, syncope or tingling Psychiatric Psychiatric: Denies anxiety, cognitive impairment, depression, irritability, mood swings or suicidal ideation Endocrine Endocrinology: Denies change in body appearance, cold intolerance, excessive sweating, heat intolerance, polydipsia or polyuria Hematologic/Lymphatic Hematologic/Lymphatic: Denies none, anemia, easy bleeding, easy bruising or lymphadenopathy Allergic/Immunologic Allergic/Immunologic: Denies rhinitis, urticaria, eczemia or asthma Vital Signs Vital Signs Vital Signs: 04/27/23 10:31 04/27/23 10:58 04/27/23 12:30 Temperature 98 F Temperature Source Temporal Pulse Rate 70 64 Respiratory Rate 14 16 Respiratory Effort Normal Respiratory Depth Normal Respiratory Pattern Normal Blood Pressure 173/83 H 136/55 H Blood Pressure Mean 113 82 Pulse Ox 99 95 Oxygen Delivery Method Room Air Room Air Room Air Oxygen Flow Rate (L/min) 04/27/23 13:00 04/27/23 13:09 04/27/23 13:09 Temperature Temperature Source Pulse Rate 61 61 Respiratory Rate 16 14 Respiratory Effort Respiratory Depth Respiratory Pattern Blood Pressure 122/93 H 122/93 H Blood Pressure Mean 102 102 Pulse Ox 88 96 96 Oxygen Delivery Method Room Air Nasal Cannula Oxygen Flow Rate (L/min) 2 04/27/23 14:27 Temperature Temperature Source Pulse Rate Respiratory Rate Respiratory Effort Respiratory Depth Respiratory Pattern Blood Pressure Blood Pressure Mean Pulse Ox Oxygen Delivery Method Nasal Cannula Oxygen Flow Rate (L/min) Weight Weight: 85.7 kg Body Mass Index (BMI) 31.4 Physical Exam Const alert, oriented x3, no apparent distress and healthy appearing Constitutional Narrative: Patient has hoarse speech General Appearance: cooperative, well kempt and well developed Orientation / Consciousness: awake, oriented to person, oriented to place and oriented to time HEENT normocephalic, head/scalp atraumatic, hearing grossly normal bilaterally and moist oral mucous membranes Eyes PERRL, EOMs intact bilaterally and conjunctivae normal Neck supple, no JVD, thyroid normal and no carotid bruits General: trachea midline Resp normal respiratory effort, no retractions, no use of accessory muscles and clearto auscultation bilaterally Auscultation: Negative for rales, rhonchi or wheezes Cardio regular rate, regular rhythm, S1 normal heart sound, S2 normal heart sound, no murmurs, no rub and no gallops GI normal to inspection, nondistended, normoactive bowel sounds, soft to palpation,non-tender and non-distended Extremity no clubbing, cyanosis or edema Skin no rashes or lesions noted General Skin Exam: no breakdown Neuro oriented x3, CN's II-XII intact bilaterally, moves all extremities, no focal motor deficits and no sensory deficits noted Sensorium / Orientation: awake, alert, oriented to person, oriented to place andoriented to time Speech: speech normal Psych affect normal Results Lab / Micro Data 04/27/23 11:35 04/27/23 11:35 Labs: Laboratory Results - last 24 hr 04/27/23 11:35: WBC 11.5 H, RBC 4.67, Hgb 13.8, Hct 42.1, MCV 90.1, MCH 29.6, MCHC 32.8, RDW Std Deviation 44.8 H, RDW Coeff of Nancy 13.4, Plt Count 263, MPV 11.0, Immature Gran % (Auto) 0.400, Neut % (Auto) 59.1, Lymph % (Auto) 26.5, Tyrrell % (Auto) 12.5 H, Eos % (Auto) 1.1, Baso % (Auto) 0.4, Absolute Neuts (auto)6.8, Absolute Lymphs (auto) 3.05, Nucleated RBC % 0, PT 14.1, INR 1.1, APTT 33.4, Sodium 135 L, Potassium 3.3 L, Chloride 98, Carbon Dioxide 32.0, Anion Gap5, BUN 18, Creatinine 1.03 H, Estim Creat Clear Calc 46.39, Est GFR (MDRD) Af Amer 68, Est GFR (MDRD) Non-Af 56 L, BUN/Creatinine Ratio 17.5, Glucose 146 H, Calcium 9.2, Magnesium 1.7, Troponin I High Sens 582 H* Radiology Impression Chest X-Ray 04/27/23 10:41 IMPRESSION: No acute cardiopulmonary disease. Electronically Signed: Nura Russell MD at 11:56 EST Reading Location ID and State: [address] [place] [address] , Service support , Assessment & Plan Assessment/Plan (1) Non-ST elevation AR (NSTEMI): PLAN: Plan 1. Wud-ORJAW-zbupjvh will be admitted to PCU, she will be seen in consultation by cardiology, patient will be maintained on a heparin drip, she will undergo a cardiac catheterization next week, patient is on Plavix #2 upper respiratory tract infection-I have asked nursing to obtain a COVID-19 test on the patient, I will refrain from any antibiotic usage for now #3 coronary artery disease-patient has a past history of coronary artery diseasewith stent placement, she will remain on her home medications #4 type 2 diabetes-patient's blood sugars will be monitored, sliding scale insulin will be given as necessary #5 hypokalemia-patient was given IV potassium, labs will be rechecked tomorrow #6 essential hypertension-patient will remain on her present medications #7 hyperlipidemia-patient is on Zetia #8 chronic depression-patient is on Celexa Total clinical time spent by myself addressing the patient's medical issues, reviewing all of her data, and collaborating with patient's care team: 75 minutes Charges/Coding Visit Charges Inpatient E&M: 03362 Init Hosp L3 04/27/23 4891 <Electronically signed by Chris Edge DO> Cosigner Signature (if applicable): CC: Dr. Redd Linda MD; Dr. Chris Edge DO~ Signed [facility] Work Phone: 1(364) 357-892711-01-2023 Miscellaneous Notes* Telephone Encounter - Ketan De LPN - 04/17/2023 11:23 AM EDT Left message of same on pt's identified vm. Ketan De LPN * Telephone Encounter - Ketan De LPN - 04/17/2023 11:21 AM EDT ----- Message from Gabriela Linda MD sent at 04/17/2023 8:50 AM EDT ----- Normal bone density. Repeat in 2-4 years. [facility] History of Present illness Narrative* Parish Brenner RT(R) - 04/15/2023 1:00 PM EDT Radiology Service Progress Note PATIENT NAME: Elsa Pugh DATE OF SERVICE: April 15, 2023 TIME: 1:09 PM PATIENT IDENTITY VERIFICATION COMPLETED USING TWO (2) IDENTIFIERS: Name and Date of confirmedby patient verbally. FALL SCREENING: Has the patient had 2 falls in the last year or 1 fall with injury or currently using an Ambulatory Assistive Device (Walker, Cane, Wheelchair, Crutches, etc.)? No PATIENT GENDER DATA: Female. status: : No status: NO. PATIENT RELEVANT IMPLANT DATA REVIEWED: Not Applicable RADIOLOGY DEPARTMENT: Bone Density PERIPHERAL IV DATA: Not applicable SIGNED BY: RT Mervat(R) April 15, 2023 1:09 PM documented in this encounterMari[facility]10-25-2023 Miscellaneous Notes* Telephone Encounter - Maddison Mullen RN - 04/10/2023 12:54 PM EDT Pharmacist from [facility] calls and states that patient's insurance does not cover Accu-chek smartview test strips and glucometer anymore. Pharmacist asking for new script to be sent in. Date of last office: 04/10/2023 Date of next office visit: 07/17/2023 Requested Prescriptions Pending Prescriptions Disp Refills Blood-Glucose Meter monitoring kit 1 Each 0 Sig: Glucose Meter of Choice - Kit - Dx: Type 2 DM - Controlled E11.9 blood sugar diagnostic (BLOOD GLUCOSE TEST) test strip 50 Strip 11 Sig: Test blood sugar(s) 2 times daily. Dx: Type 2 DM - Controlled E11.9 Insulin: No Lancets lancets 100 Each 11 Sig: Test blood sugar(s) 2 times daily. Dx: Type 2 DM - Controlled E11.9 Insulin: No Date of Last Labs: 04/10/2023 Please advise. Thank you. Maddison Mullen RN. documented in this encounterM[facility]10-25-2023 Miscellaneous Notes* Telephone Encounter - Elsa Wise RN - 04/10/2023 10:34 AM EDT Elisa pharmacist from [facility] calling and states there was a problem with pt's Smartview test strips and he had to cancel it. He states to please add ICD 9 code. Order pended, if you could please sign so it will resend. Thank you. documented in this encounterMarietta [facility]10-25-2023 Instructions* Patient Instructions* Gabriela Linda MD - 04/10/2023 9:33 AM EDT BONE MINERAL DENSITY PATIENT INSTRUCTIONS Bone mineral density testing measures the amount of calcium in certain parts of your bones. This information determines how strong your bones are. The test is used to detect osteoporosis, a disease in which the bone's mineral content and density are low, increasing a person's risk of fractures. Thelumbar spine (lower back) and the hip are the skeletal sites usually examined. For the test, remember that: 1. You cannot take this test if you are . 2. Eat a normal diet on the day of the test. 3. Take your medications as you normally would. 4. DO NOT take calcium supplements (such as Tums) for 24 hours before the test. 5. On the day of the test, leave valuables (jewelry or credit cards) at home. 6. The test should be performed prior to oral, rectal or IV contrast studies, or at least 7 days after any of these studies. For the test, you may be asked to wear a hospital gown. You will lie on your back, on a padded table, in a comfortable position. Generally, you can resume your usual activities immediately. documented in this encounterMari[facility]10-25-2023 History of Present illness Narrative* Gabriela Linda MD - 04/10/2023 9:15 AM EDT Chief Complaint Patient presents with: 3 month follow up HPI Elsa Pugh is a 68 year old female who presents here today for follow up on DM. DIABETES MELLITUS: Ms. Pugh was last seen 1 month ago. Since our last visit she denies excessivethirst or increased frequency of urination, numbness, tingling or pain in extremities, new or unusual visual symptoms. Admits to some hypoglycemic symptoms 2-3 times per week. Occurs in the morning with shaking and sweating. Improves with food. Has not checked her sugars when this occurs. Feels lowright now and did not eat breakfast. Does not eat much for breakfast. Follows a diabetic diet most of the time. She is compliant with medication(s) and is tolerating med(s) without any side effects. She reports checking her glucose on a three times a day schedule with sugars in the <130 range prior to meals. Patient's last HgA1C was Hemoglobin A1C (%) Date Value 04/03/2023 7.2 01/08/2023 9.3 07/04/2021 8.8 06/14/2003 5.7 ) Last Ophthalmology exam was within the past 12 months at [facility]. Reportedly normal exam. Last Podiatry exam was within the past 12 months Cholesterol improved with Zetia, red yeast rice, and low cholesterol diet. Anxiety symptoms controlled on celexa. PHQ-2 / Depression screen He in the past two weeks denies having felt down, depressed, hopeless or with little interest or pleasure in doing things. CAD s/p CABGx4: managed by [facility] cardiology group. Patient remains asymptomatic on current regimen. Reviewed last OV from 1 month ago. No changes to regimen. They are requesting updated labs for her cholesterol. Past medical history, appointments, medications, allergies reviewed. Previous Medical History PAST MEDICAL HISTORY Diagnosis Date Coronary artery disease Dr. Osorio DDD (degenerative disc disease), lumbar Essential hypertension Generalized anxiety disorder Generalized anxiety disorder 01/15/2023 Hemorrhage of rectum and anus History of colonic polyps Hyperlipidemia Hypoglycemia, unspecified Narcolepsy Sleep Medicine in [place] Obesity Obstructive sleep apnea on CPAP PMH - PAST MEDICAL HISTORY OF edema Restless legs syndrome (RLS) S/P CABG x 4 2001 Statin intolerance Type 2 diabetes mellitus without retinopathy (HCC) 03/06/2016 Unspecified asthma(493.90) mild intermittent, triggered by damp weather Uterine prolapse s/p hysterectomy Previous Surgical History PAST SURGICAL HISTORY Procedure Laterality Date COLONOSCOPY FLX DX W/COLLJ SPEC WHEN PFRMD 10/16/2003 Colonoscopy ESOPHAGOGASTRODUODENOSCOPY TRANSORAL DIAGNOSTIC 10/16/2003 EGD LAPS ABD PRTM&OMENTUM DX W/WO SPEC BR/WA SPX Laparoscopy PAST SURGICAL HISTORY OF 01/15/2015 4 new stents were placed PAST SURGICAL HISTORY OF 17 stents PAST SURGICAL HISTORY OF 2001 CABGx4 TONSILLECTOMY PRIMARY/SECONDARY <AGE 11 Tonsillectomy TOTAL ABDOMINAL HYSTERECT W/WO RMVL TUBE OVARY Hysterectomy, ZAKI Family History FAMILY HISTORY Problem Relation Age of Onset other (colon polyps) Father Diabetes Father Heart disease Father Diabetes Sister other (rheumatoid arthritis) Sister Anxiety disorder Sister Heart Attack Sister No Known Problems Maternal Grandmother No Known Problems Maternal Grandfather No Known Problems Paternal Grandmother No Known Problems Paternal Grandfather Drug abuse Son No Known Problems Daughter Patient Allergies ALLERGIES Allergen Reactions Asa [Salicylates] Vomiting Augmentin [Amoxicil* GI Upset Bacol [Other] Belladonna [Bellado* Intolerance GI upset Benazepril Cough Sep 2005 Butazolidin [Other] Carbidopa Darvocet-N 100 [Pro* Intolerance HEADACHE Guaifenesin-Sodium * Ibuprofen Rash Levaquin [Levofloxa* Other: See Comments Hallucinations anxiety numbness tingling Lopid [Gemfibrozil] Niacin Niaspan [Niacin (An* Penicillins Hives Provigil [Modafinil] Mental Status Change hallucinations Ramapril [Other] Rfcryxc-Adc-Xio Red* Myalgia Sulfa (Sulfonamide * Tramadol Other: See Comments stroke like symptoms Current Medications Current Outpatient Medications on File Prior to Visit Medication Sig semaglutide (OZEMPIC) 1 mg/dose (4 mg/3 mL) pen Inject 1 mg subcutaneously one time a week. pregabalin (LYRICA) 150 mg capsule TAKE 1 CAPSULE BY MOUTH TWICE DAILY AT SUPPER AND BEDTIME promethazine (PHENERGAN) 25 mg tablet Take 1 tablet by mouth every 6 hours as needed for nausea/vomiting. metFORMIN (GLUCOPHAGE) 1,000 mg tablet Take 1 tablet by mouth twice daily with meals. ezetimibe (ZETIA) 10 mg tablet Take 1 tablet by mouth once daily. cholecalciferol (VITAMIN D-3) 50 mcg (2,000 unit) tablet Take 2,000 Units by mouth once daily. losartan (COZAAR) 25 mg tablet Take 0.5 tablets by mouth once daily. CPAP/BIPAP/OTHER Formal mask fitting to consider smaller FFM like dreamwear due to dry eyes and supplies for bipap 13/8cmH2O DME [employer] CPAP/BIPAP/OTHER Replacement auto bipap 13/8 with PS of 5cmH2O DME [employer] CPAP/BIPAP/OTHER Settings decrease to autobipap 13/8cmH2O DME [employer] BIPAP DME change for supplies. Pt has a [employer] Auto BiPAP IPAP max 18, EPAP min 6 CM H2O, PS 5 cmH2O. mask, filters, heated humidity & tubing, [employer] supplies. LADAN G47.33 red yeast rice 600 mg tab ascorbic acid, vitamin C, (VITAMIN C) 500 mg tablet Take 500 mg by mouth daily at bedtime. ACCU-CHEK SMARTVIEW TEST STRIP test strip ACCU-CHEK FASTCLIX LANCET DRUM lancets nitroglycerin sublingual (NITROQUICK) 0.4 mg SL tablet Dissolve 0.4 mg under the tongue. MAGNESIUM ORAL Take 300 mg by mouth twice daily. some days takes three tablets citalopram 40 mg tablet Take 1 tablet by mouth once daily. ranolazine ER (RANEXA) 500 mg 12 hr tablet Take 1,000 mg by mouth twice daily. PLAVIX 75 MG TAB Take one(1) tablet daily. No current facility-administered medications on file prior to visit. Social History Social History Tobacco Use Smoking status: Former Packs/day: 0.50 Years: 27.00 Additional pack years: 0.00 Total pack years: 13.50 Types: Cigarettes Quit date: 1997 Years since quittin.8 Smokeless tobacco: Never Vaping Use Vaping Use: Never used Substance Use Topics Alcohol use: Yes Comment: 2-3 drinks per month Drug use: No Review of Symptoms REVIEW OF SYSTEMS GENERAL: No weight loss, malaise or fevers RESPIRATORY: Admits to dry cough related to allergies. Denies SOB or wheezing. CARDIOVASCULAR: Negative for chest pain, leg swelling, hypertension, CHF or palpitations GI: No nausea, vomiting, or diarrhea SKIN: Negative for lesions, rash, and itching EXAM: BP 120/64 Pulse 62 Resp 16 Ht 167.6 cm (5' 6) Wt 91.6 kg (202 lb) BMI 32.60 kg/m General Appearance: Well appearing, alert, in no acute distress, well-hydrated, well nourished.. Skin: Skin color, texture, turgor normal, no suspicious rashes or lesions. Lungs: Lungs clear to auscultation. No wheezing, rhonchi, rales.. Heart: RRR without murmur, gallop, or rubs. No ectopy. Abdomen: Normal abdominal exam, Abdomen soft, non-tender. Bowel sounds normal. No masses, organomegaly. Extremities: No deformities, edema, skin discoloration, clubbing or cyanosis. Good capillary refill. . Health Maintenance List Urine Albumin:Creatinine Ratio Never done Hepatitis C Screening Never done BP Controlled (<130/80) Never done Hepatitis B Vaccine(1 of 3 - Risk 3-dose series) Never done RSV Vaccine(1 - 1-dose 60+ series) Never done Dilated Retinal Exam due on 03/06/2017 Bone Density Screening Never done Advance Directive Discussion Never done Depression Assessment Never done Covid-19 Vaccine(3 - 2022- season) due on 02/15/2023 DTaP,Tdap,Td Vaccine(2 - Tdap) due on 12/04/2023 Colorectal Cancer Screening due on 12/04/2023 Shingrix Vaccine(1 of 2) due on 12/04/2023 Pneumococcal Vaccine: 65+(3 - PPSV23 or PCV20) due on 09/15/2023 HbA1C due on 10/03/2023 Mammogram Screening due on 12/13/2023 Diabetic Foot Exam due on 02/21/2024 Annual PCP Team Chronic Disease Visit due on 02/21/2024 LDL Cholesterol due on 04/03/2024 Influenza Vaccine Completed Data reviewed Component Latest Ref Rng & Units 01/08/2023 04/03/2023 Protein, Total 6.3 - 8.0 g/dL 6.1 (L) 6.3 Albumin 3.9 - 4.9 g/dL 4.1 4.0 Calcium 8.5 - 10.2 mg/dL 9.2 9.1 Bilirubin, Total 0.2 - 1.3 mg/dL 0.3 0.3 Alkaline Phosphatase 34 - 123 U/L 61 48 AST 13 - 35 U/L 17 20 ALT 7 - 38 U/L 13 14 Glucose 74 - 99 mg/dL 190 (H) 162 (H) BUN 7 - 21 mg/dL 13 11 Creatinine 0.58 - 0.96 mg/dL 0.83 0.83 Sodium 136 - 144 mmol/L 137 139 Potassium 3.7 - 5.1 mmol/L 4.6 4.3 Chloride 97 - 105 mmol/L 101 103 CO2 22 - 30 mmol/L 26 27 Anion Gap 9 - 18 mmol/L 10 9 eGFR >=60 mL/min/1.73m 77 76 Total Cholesterol, Nonfasting <200 mg/dL 242 (H) 190 Triglycerides, Nonfasting <150 mg/dL 435 (H) 336 (H) HDL Cholesterol, Nonfasting >39 mg/dL 33 (L) 36 (L) LDL Cholesterol, Nonfasting <100 mg/dL 87 Non HDL Cholesterol, Nonfasting <130 mg/dL 209 (H) 154 (H) VLDL Cholesterol, Nonfasting <30 mg/dL 67 (H) Total Chol/HDL Ratio, Nonfasting <5.10 mg/dL 7.33 (H) 5.28 (H) LDL/HDL Ratio, Nonfasting <2.54 mg/dL 2.42 Hemoglobin A1C 4.3 - 5.6 % 9.3 (H) 7.2 (H) Estimated Average Glucose mg/dL 220 160 Component Latest Ref Rng & Units 04/10/2023 Glucose, Point of Care 74 - 99 mg/dL 216 (A) ASSESSMENT/PLAN: 1. Type 2 diabetes mellitus without retinopathy (HCC) - ICD9: 250.00, ICD10: E11.9 (primary diagnosis) - Improving control - Continue current medications. Eat more substantial breakfast if having low sugars. Can take snackor glucose tabs to work for PRN use. - Blood glucose monitoring on a twice daily schedule - Counseled on healthy diet and regular exercise - Discussed need for and benefit of weight loss. BMI 32.60 kg/(m^2) - Follow up in 3 months, sooner should any other issues arise. - LOSARTAN 25 MG TABLET - SEMAGLUTIDE 1 MG/DOSE (4 MG/3 ML) SUBCUTANEOUS PEN INJECTOR - GLUCOSE, BLOOD (POC) 2. Coronary artery disease of [place] artery of [place] heart with stable angina pectoris (HCC) - ICD9: 414.01, 413.9, ICD10: I25.118 Asymptomatic on medical management. F/u with cardiology. Continue zetia and red yeast rice for cholesterol. Will fax results as requested. 3. S/P CABG x 4 - ICD9: V45.81, ICD10: Z95.1 4. Essential hypertension - ICD9: 401.9, ICD10: I10 - Controlled - Continue current medications - Recommend home blood pressure monitoring, to bring results to next visit - Encouraged sodium restriction, DASH or Mediterranean diet - Recommend regular aerobic exercise 5. Mixed hyperlipidemia - ICD9: 272.2, ICD10: E78.2 - Improving control - Continue current medications - Counseled on healthy diet and regular exercise 6. Asymptomatic postmenopausal status - ICD9: V49.81, ICD10: Z78.0 Due for DXA - DXA-AXIAL SKELETON 7. Statin intolerance - ICD9: 995.27, ICD10: Z78.9 Gabriela Linda MD documented in this encounterMarietta [facility]10-19-2023 Miscellaneous Notes* Telephone Encounter - Anamika Tapia - 04/04/2023 3:31 PM EDT The Anticoag Management letter has been sent to the patient's Animal Stunner at the [facility] Fax number [phone] via electronic medical record and via facsimile. Anamika Tapia documented in this encounterMarietta [facility] Clinic10-19-2023 Miscellaneous Notes* Telephone Encounter - Anamika Tapia - 04/04/2023 3:05 PM EDT Procedure(s) being scheduled: 1.Are you diabetic Yes. Please list the current medications being prescribed Metformin, Ozepic. 2. Are you on any blood thinners? Yes. Please list the current medications being prescribed Plavix. If yes, does it require a hold? Yes If yes, was approval letter sent? Yes 3. Are you taking any aspirin? No 4. Are you currently taking any antibiotics? No If yes, is it prophylactic or for treatment of an infection? NA 5. Do you have any allergies to latex? No 6. Do you have any allergies to seafood or shellfish? No 7. Do you have any allergies to x-ray dye? No 8. Did the physician instruct you to take any medication prior to your procedure? No 9. Does this procedure require a milk delivery driver? Yes If yes, has patient been notified that a milk delivery driver is needed and must be present at check in? Yes 10. Were the pre-procedure instructions explained and provided to the patient? Yes 11. Do you have a pacemaker? No 12. Do you have an internal stimulator of any kind? No If yes, please bring the remote with you to your procedure visit. 13. Have you received the COVID-19 Vaccine? Yes. If yes, date(s) received: 11/2020 (Patient should not receive a procedure including steroids 14 days prior to their first dose of theCOVID vaccine. They should not receive any procedure containing steroids in the time frame between their 1st and 2nd doses of the COVID vaccine. They should not receive a procedure containing steroids 14 days after their 2nd dose of the COVID vaccine.) Anamika Tapia documented in this encounterMarietta [facility] Clinic10-19-2023 History of Present illness Narrative* Baylee Colin APRN.CNP - 04/04/2023 2:30 PM EDT Images from the original note were not included. [facility] Today's Date: 04/04/2023 Last Visit: N/A Name: Elsa Pugh : 1955 Purpose: New Patient Consultation Chief complaint: low back pain Referring Clinician: Gabriela Linda Pertinent Past Medical History: polyneuropathy , Coronary Artery Disease (CAD), Hypertension (HTN),Hyperlipidemia (HLD), Obstructive Sleep Apnea, Gastroesophageal Reflux Disease (GERD), Diabetes (DM) Type 2, Anxiety (LOVE) R knee torn menicus, Pertinent Past Surgeries: T& A 1961, quadruple coronary bypass 2001, 17 cardiac stents over thelast 21 years, lap jerry 1971 History of Present Illness (HPI): 04/04/2023 - Initial HPI (Obtained by Baylee Colin CNP). DURATION AND ONSET: The pain complaint has been present for approximately 10/2022. The pain had a gradual onset. The mechanism of injury is unknown. PRIOR TREATMENTS: Medications (tylenol), Physical Therapy, Daily Home Exercise Program as directed by PT/Chiropractor, PAIN DESCRIPTION: Currently, the pain is experienced as constant. It is described as being Aching, Stabbing, pressure. The pain is primarily localized in the across the low back. There is radiation into the left leg in the right hip into the groin and into the top of her left leg. The pain is exacerbated by Standing, Standing 10 minutes. The pain is alleviated by Sitting. The pain interferes withphysical activity, work, walking, sleeping, and household cleaning. RED FLAG SYMPTOMS: denies red flags. 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 Patient states she stands most of the time she is there, where she works 4-hour shifts at a time. Patient states by the time she is out of work she is miserable she does have to sit and try to calm down her pain as it is difficult to stand that length of time on certain days. Patient states she loves her job but the pain in her back is increasing. Patient does complain of left hip pain patient has had x-rays done which were negative. Patient is newly within the last 2 years. Patient also has a strong family stress due to medical issues. Current Pain Medications: Neuropathics: Lyrica 150 mg bid NSAIDS: Muscle Relaxants: Topicals: Other Prescription or OTC Pain Medications: Opioids (when applicable): Date last refilled: Quantity supplied: Quantity remaining: Last taken: Anti-depressants or Mood-Stabilizers: Celexa Anti-Coagulants: None, Plavix Current Therapies Attended: No Current Therapies Treatment History: PAIN PROCEDURES: DATE PROCEDURE IMPROVEMENT To date, no interventional pain management procedures performed at this practice. MEDICATIONS Taken TO DATE (for the chief complaint(s)): Neuropathics: Lyrica (Pregabalin): Beneficial NSAIDS: None not taking due to GI symptoms Muscle Relaxants: none Topicals: Pefw-Stz-Xtqllbo (OTC): Discontinued - No Benefit Other Prescription or OTC Pain Medications: Tylenol (Acetaminophen): Beneficial Opioids: None Past Therapies Attended: Physical TherapyTreatment dates: Between 12/2022 and 01/2023. Data Reviewed Today: Allergies: ALLERGIES Allergen Reactions Asa [Salicylates] Vomiting Augmentin [Amoxicil* GI Upset Bacol [Other] Belladonna [Bellado* Intolerance GI upset Benazepril Cough Sep 2005 Butazolidin [Other] Carbidopa Darvocet-N 100 [Pro* Intolerance HEADACHE Guaifenesin-Sodium * Ibuprofen Rash Levaquin [Levofloxa* Other: See Comments Hallucinations anxiety numbness tingling Lopid [Gemfibrozil] Niacin Niaspan [Niacin (An* Penicillins Hives Provigil [Modafinil] Mental Status Change hallucinations Ramapril [Other] Uuwjrit-Wdy-Avm Red* Myalgia Sulfa (Sulfonamide * Tramadol Other: See Comments stroke like symptoms INTAKE PAIN ASSESSMENT 04/03/2023 04/03/2023 Are you having pain associated with your visit today? Yes, Provider notified Yes, Provider notified Pain Scales - - Pain Level 8 8 Pain Location Back-Lower Back-Lower Description Aching;Pressure;Radiating;Stiffness Aching;Pressure;Radiating;Stiffness Duration Amount of Time - - Duration Units Months Months Frequency Continuous Continuous Intervention/Comfort measure Reposition;Exercise;Massage;Pillow support;Rocking/holding Reposition;Exercise;Massage;Pillow support;Rocking/holding Comments - - Compliance: PDMP website checked and validated on 04/04/2023 by Baylee Colin APRN.[employer] AMBASSADOR All prescriptions have been APPROPRIATELY filled. No suspicious activity was identified. Recent Drug screens: AG SPINE COMBINATION 04/04/2023 Questionnaire GREENLIGHT Completed Date 04/04/2023 Questionnaire Opiod Risk Tool Completed Date 04/04/2023 Greenlight Questionnaire GREENLIGHT Completed Date 04/04/2023 Opioid Risk Tool Opiod Risk Tool Date Completed 04/04/2023 LOVE-7 Anxiety Score 2 Completed Date 04/04/2023 PHQ9P Score 2 Completed Date 04/04/2023 (All drug screens are appropriate unless indicated otherwise) Risk Assessment: LOVE-7: LOVE - 7 SCORES 04/04/2023 LOVE-7 Score 2 (0-4) minimal anxiety, (5-9) mild anxiety, (10-14) moderate anxiety, (15-21) severe anxiety PHQ-9: PHQ-9 10/17/2022 02/06/2023 04/04/2023 Score 3 8 2 (0-4) minimal depression, (5-9) mild depression, (10-14) moderate depression, (15-19) moderately severe depression, (20-27) severe depression Diagnostic Studies: Relevant Imaging: MRI Spine Report MRI LUMBAR SPINE WO IVCON Exam End: 02/07/2023 1:19 PM (Final result) Narrative: * * *Final Report* * * DATE OF EXAM: Feb 07 2023 1:19PM [facility] [id number] - MRI LUMBAR SPINE WO IVCON / PROCEDURE REASON: Acute bilateral low back pain with left-sided sciatica * * * * Physician Interpretation * * * * EXAMINATION: MRI LUMBAR SPINE WO IVCON CLINICAL HISTORY: Acute bilateral low back pain with left-sided sciatica TECHNIQUE: Routine lumbosacral spine MR protocol without gadolinium. MQ: [id number] COMPARISON: Lumbar spine radiograph 01/18/2023 RESULT: Counting reference: Lumbosacral junction. For the purposes of this report, L4-5 is considered the level of the iliac crest and assume there are 5 lumbar-type vertebrae. Anatomic variant: None. Localizer images: No additional findings. Alignment: Grade 1-2 anterolisthesis of L5 on S1 with questionable LEFT L5 pars interarticularis defect. Bone marrow signal/fracture: T2/STIR hyperintensity within the RIGHT L5 pedicle, pars interarticularis, and superior/inferior articulating facets. No evidence of pathologic marrow infiltration. No evidence of prior fracture. Severe degenerative disc disease with height loss and disc desiccation at L5-S1. Scattered degenerative disc disease with mild disc desiccation and height loss throughout the remaining lumbar spine. Mild degenerative L5 vertebral body height loss of the mid and dorsal portion with associated endplate degenerative changes. Conus: The conus terminates at L1-L2 and is within normal limits of morphology and signal. Normal course and caliber of the descending cauda equina nerve roots. Paraspinal soft tissues: Paraspinal soft tissues are within normal limits. Lower thoracic spine: Visualized lower thoracic canal and foramina are patent. L1-L2: Canal and foramina are patent. L2-L3: Canal and foramina are patent L3-L4: Mild spinal canal narrowing secondary to diffuse disc bulge, bilateral ligamentum flavum hypertrophy, and moderate bilateral facet arthropathy. Bilateral foramina are patent. L4-L5: Diffuse disc bulge, bilateral ligamentum flavum hypertrophy, and moderate to severe bilateral facet arthropathy without significant spinal canal or neuroforaminal narrowing. L5-S1: Anterolisthesis contributes to moderate to severe bilateral neural foraminal narrowing. Canal remains patent. Sacrum and iliac wings: The visualized sacrum and iliac wings are within normal limits. Impression: IMPRESSION: Grade 1-2 anterolisthesis of L5 on S1 with questionable chronic LEFT L5 pars interarticularis defect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 moderate chance of dozing (2) Sitting inactive in a public place (e.g a theater or a meeting) moderate chance of dozing (2) As a passenger in a car for an hour without a break? moderate chance of dozing (2) Lying down to rest in the afternoon when circumstances permit? high chance of dozing (3) Sitting and talking to someone? moderate chance of dozing (2) Sitting quietly after lunch without alcohol? moderate chance of dozing (2) In a car, while stopped for a few minutes in traffic? slight chance of dozing (1) Total Score ABNORMAL (16) International Restless Legs Syndrome Study Group Rating Scale RLS discomfort in legs or arms Moderate (2) Need to move around due to RLS Severe (3) Relief of RLS leg or arm discomfort from moving Complete relief (1) Severity of sleep disturbance due to RLS symptoms Moderate (2) Severity of sleepiness due to RLS symptoms Moderate (2 ) Severity of RLS as a whole Moderate (2) Frequency of RLS symptoms Moderate (2) Severity of RLS symptoms on an average day Moderate (2) Impact of RLS symptoms on daily affairs Mild (1) Severity of mood disturbance due to RLS symptoms Moderate (2) Total Score Moderate symptom burden (19) PAST TREATMENTS: Bilevel PAP Lyrica for RLS PRIOR SLEEP STUDIES: Last sleep study in 2014 OTHER RELEVANT LABS AND STUDIES: PAST MEDICAL HISTORY Diagnosis Date Coronary artery disease Dr. Osorio DDD (degenerative disc disease), lumbar Essential hypertension Generalized anxiety disorder Generalized anxiety disorder 01/15/2023 Hemorrhage of rectum and anus History of colonic polyps Hyperlipidemia Hypoglycemia, unspecified Narcolepsy Sleep Medicine in [place] Obesity Obstructive sleep apnea on CPAP PMH - PAST MEDICAL HISTORY OF edema Restless legs syndrome (RLS) S/P CABG x 4 2001 Statin intolerance Type 2 diabetes mellitus without retinopathy (HCC) 03/06/2016 Unspecified asthma(493.90) mild intermittent, triggered by damp weather Uterine prolapse s/p hysterectomy PAST SURGICAL HISTORY Procedure Laterality Date COLONOSCOPY FLX DX W/COLLJ SPEC WHEN PFRMD 10/16/2003 Colonoscopy ESOPHAGOGASTRODUODENOSCOPY TRANSORAL DIAGNOSTIC 10/16/2003 EGD LAPS ABD PRTM&OMENTUM DX W/WO SPEC BR/WA SPX Laparoscopy PAST SURGICAL HISTORY OF 01/15/2015 4 new stents were placed PAST SURGICAL HISTORY OF 17 stents PAST SURGICAL HISTORY OF 2001 CABGx4 TONSILLECTOMY PRIMARY/SECONDARY <AGE 11 Tonsillectomy TOTAL ABDOMINAL HYSTERECT W/WO RMVL TUBE OVARY Hysterectomy, ZAKI ACTIVE PROBLEM LIST Coronary Artery Disease S/P Cabg X 4 Essential Hypertension Hyperlipidemia Esophageal Reflux Chronic Rhinitis Restless Legs Syndrome (Rls) Abnormal Mammogram, Unspecified Ladan Treated With Bipap Hypersomnia Type 2 Diabetes Mellitus Without Retinopathy (Hcc) Vitreous Floaters of Both Eyes Pseudophakia of Both Eyes Myoclonus Irritability and Anger Polyneuropathy Due to Type 2 Diabetes Mellitus (Hcc) Nocturnal Enuresis Excessive Daytime Sleepiness Obesity, Class II, Bmi 35-39.9 Hip Pain, Left Chronic Bilateral Low Back Pain With Left-Sided Sciatica Statin Intolerance Narcolepsy History of Colonic Polyps Generalized Anxiety Disorder Ddd (Degenerative Disc Disease), Lumbar Allergies As of Date: 02/13/2023 Allergen Noted Reaction ASA [SALICYLATES] 07/05/2005 Vomiting AUGMENTIN [AMOXICILLIN-POT CLAVUL*07/05/2005 GI Upset BACOL [OTHER] 07/05/2005 BELLADONNA [BELLADONNA ALKALOIDS] 01/05/2009 Intolerance BENAZEPRIL 09/20/2005 Cough BUTAZOLIDIN [OTHER] 07/05/2005 CARBIDOPA 07/05/2005 DARVOCET-N 100 [PROPOXYPHENE N-AC*07/05/2005 Intolerance GUAIFENESIN-SODIUM CITRATE 07/05/2005 IBUPROFEN 07/05/2005 Rash LEVAQUIN [LEVOFLOXACIN] 02/10/2014 Other: See Comments LOPID [GEMFIBROZIL] 07/05/2005 NIACIN 07/05/2005 NIASPAN [NIACIN (ANTIHYPERLIPIDEM*07/05/2005 PENICILLINS 02/10/2014 Hives PROVIGIL [MODAFINIL] 08/08/2017 Mental Status Change RAMAPRIL [OTHER] 07/05/2005 [id number] REDUCTASE INHIBIT*12/03/2022 Myalgia SULFA (SULFONAMIDE ANTIBIOTICS) 07/05/2005 TRAMADOL 02/10/2014 Other: See Comments Fully Assessed 02/13/2023 CURRENT MEDICATIONS: pregabalin (LYRICA) 150 mg capsule TAKE 1 CAPSULE BY MOUTH WITH SUPPER AND 1 CAP AT BEDTIME for 90 days promethazine (PHENERGAN) 25 mg tablet Take 1 tablet by mouth every 6 hours as needed for nausea/vomiting. semaglutide (OZEMPIC) 0.25 mg or 0.5 mg(2 mg/1.5 mL) pen Inject 0.5 mg subcutaneously one time a week. metFORMIN (GLUCOPHAGE) 1,000 mg tablet Take 1 tablet by mouth twice daily with meals. ezetimibe (ZETIA) 10 mg tablet Take 1 tablet by mouth once daily. cholecalciferol (VITAMIN D-3) 50 mcg (2,000 unit) tablet Take 2,000 Units by mouth once daily. losartan (COZAAR) 25 mg tablet Take 0.5 tablets by mouth once daily. CPAP/BIPAP/OTHER Formal mask fitting to consider smaller FFM like dreamwear due to dry eyes and supplies for bipap 13/8cmH2O DME [employer] CPAP/BIPAP/OTHER Replacement auto bipap 13/8 with PS of 5cmH2O DME [employer] CPAP/BIPAP/OTHER Settings decrease to autobipap 13/8cmH2O DME [employer] BIPAP DME change for supplies. Pt has a Resmed Auto BiPAP IPAP max 18, EPAP min 6 CM H2O, PS 5 cmH2O. mask, filters, heated humidity & tubing, [employer] supplies. LADAN G47.33 red yeast rice 600 mg tab ascorbic acid, vitamin C, (VITAMIN C) 500 mg tablet Take 500 mg by mouth daily at bedtime. ACCU-CHEK SMARTVIEW TEST STRIP test strip ACCU-CHEK FASTCLIX LANCET DRUM lancets nitroglycerin sublingual (NITROQUICK) 0.4 mg SL tablet Dissolve 0.4 mg under the tongue. MAGNESIUM ORAL Take 300 mg by mouth twice daily. some days takes three tablets citalopram 40 mg tablet Take 1 tablet by mouth once daily. ranolazine ER (RANEXA) 500 mg 12 hr tablet Take 1,000 mg by mouth twice daily. PLAVIX 75 MG TAB Take one(1) tablet daily. Prior RLS Medications (last 20 years) Some values may be hidden. Unless noted otherwise, only the newest values recorded on each date aredisplayed. RLS Medications carbidopa-levodopa (SINEMET) 10-100 mg per tablet Dose: 1 tablet 2 TIMES DAILY Starting date: Ending date: 07/13/2020 (Discontinued) MIRAPEX 0.25 MG TAB Dose: Take one(1) tablet three times daily. Starting date: 09/20/2005 Ending date: 03/28/2006 (Discontinued) MIRAPEX 0.25 MG TAB Dose: Take one(1) tablet three times daily. Starting date: 03/28/2006 Ending date: 03/29/2006 (Discontinued) MIRAPEX 0.25 MG TAB Dose: Take one(1) tablet three times daily. Starting date: 03/29/2006 Ending date: 01/05/2009 (Discontinued) pramipexole 1 mg tablet Dose: 1 mg 3 TIMES DAILY Starting date: Ending date: 09/14/2015 (Discontinued) pramipexole di-hcl(MIRAPEX 0.5 MG TAB) Dose: 1 tablet in am 2 tablets in pm Starting date: 01/05/2009 Ending date: 02/10/2014 (Discontinued) rotigotine (NEUPRO) 1 mg/24 hour patch Dose: 1 Patch DAILY Starting date: 09/30/2015 Ending date: 04/17/2016 (Discontinued) rotigotine (NEUPRO) 2 mg/24 hour patch Dose: 2 mg DAILY For RLS. Starting date: 10/24/2015 Ending date: 04/17/2016 (Discontinued) Review of Systems Constitutional: Positive for fatigue. HENT: Positive for congestion. Respiratory: Negative for cough and difficulty breathing. Musculoskeletal: Positive for arthralgias, back pain and uncomfortable leg sensations. Neurological: Negative for headaches. SOCIAL HISTORY: Social History Tobacco Use Smoking status: Former Packs/day: 0.50 Years: 27.00 Additional pack years: 0.00 Total pack years: 13.50 Types: Cigarettes Quit date: 1997 Years since quittin.6 Smokeless tobacco: Never Substance Use Topics Alcohol use: Yes Comment: 2-3 drinks per month Drug use: No FAMILY HISTORY: FAMILY HISTORY Problem Relation Age of Onset other (colon polyps) Father Diabetes Father Heart disease Father Diabetes Sister other (rheumatoid arthritis) Sister Anxiety disorder Sister Heart Attack Sister No Known Problems Maternal Grandmother No Known Problems Maternal Grandfather No Known Problems Paternal Grandmother No Known Problems Paternal Grandfather Drug abuse Son No Known Problems Daughter There is a family history of: Sleep apnea. Relative: Mother PHYSICAL EXAMINATION: General appearance: NAD Mental status: awake and alert Constitutional: Well groomed Skin: Dry and intact Neuro: Speech fluent IMPRESSION/PLAN: Elsa Pugh is a 67 year old female with hx of PMH of DM 2, HTN, HLD, chronic rhinitis, and obesity who presents in office for LADAN and RLS follow up. Obstructive Sleep Apnea RLS ( Restless Legs Syndrome Rating Scale score is 19 ) Chronic back pain - Continue autoBiPAP at current setting. - Compliance date reviewed later on as we received the report after patient left the visit - [email or web address] message was sent to the patient, patient was encouraged to use PAP more frequently - Remember to clean your mask and equipment regularly, as directed. - You should be eligible for new supplies approximately every 3-6 months, depending on your insurance coverage. Contact your Durable Medical Equipment (DME) company for new supplies as needed. - Continue with Lyrica 150 mg at supper and at bedtime for treatment of RLS. - Sending Fasting Iron/Ferritin levels - Follow up in 3 months with me in [facility]. Albin Reyes MD Attending Note I evaluated the patient and personally participated in the nicholson components. I agree with Dr. Richardson's findings and plan as documented and have discussed the case and management of the patient's care with the resident. Patient with history of LADAN, and RLS She has lost significant amount of weight, and her BiPAP setting has also decreased She is on an auto BiPAP (ResMed) Max IPAP 13 Min EPAP 5 PS 5 She is not compliant with usage, average 3 hours 40 minutes on day used in the last 30 days, with over 4 hour usage per day compliance ratio at 30%. She sleeps 5-6 hours at night, and nap for 2 hoursduring the day, but she does not use her BiPAP when she naps. Download also indicates mild residual sleep apnea. Since increase of her lyrica to 150 mg at supper, and 150 mg at bedtime, her RLS has improved, from22 to 19 IRLS score. But she still has back pain which is causing problem to her sleep. She is going to see her back provider soon. Some of her sleep discomfort likely due to her back pain, and it will also interfere with her BiPAP usage. Plan: Get fasting ferritin and iron panel Unchange with her BiPAP setting for now, encourage using biPAP when napping. Continue lyrica at current dosage Return in [address] Reyes. Hopefully by that time she will know about the treatment for her back, and we discuss more usage compliance and consider adjusting BiPAP setting. I spent a total of 60 minutes on the date of the service which included preparing to see the patient, [id number] patient care, completing clinical documentation, obtaining and/or reviewing separately obtained history, counseling and educating the patient/family/caregiver, ordering medications, any ts, or procedures, communicating with other HCPs (not separately reported), and independently interpreting results (not separately reported). Signature: Rita Delgado MD Date: 02/13/2023 Time: 12:13 PM documented in this [facility]08-24-[facility] History of Present illness Narrative* Baylee Villar RT(R) - 02/07/2023 1:00 PM EDT Radiology Service Progress Note PATIENT NAME: Elsa Pugh DATE OF SERVICE: February 07, 2023 TIME: 1:19 PM PATIENT IDENTITY VERIFICATION COMPLETED USING TWO (2) IDENTIFIERS: Name and Date of confirmedby patient verbally. FALL SCREENING: Has the patient had 2 falls in the last year or 1 fall with injury or currently using an Ambulatory Assistive Device (Walker, Cane, Wheelchair, Crutches, etc.)? Yes, Patient High Riskfor Falls What interventions were put in place to prevent falls during this visit? Instructed Patient to Callfor Help if Needed, Offered Assistance with Transfers/Clothing, Instructed Patient to Remain Seated(Not on Exam Table) Until Exam, and Increased Observations by Caregivers PATIENT GENDER DATA: Female. status: : No status: NO. PATIENT RELEVANT IMPLANT DATA REVIEWED: Yes RADIOLOGY DEPARTMENT: MR; Exam(s) Completed: Spine: Lumbar spine PERIPHERAL IV DATA: Not applicable SIGNED BY: RT Aruna(R) February 07, 2023 1:19 PM documented in this [facility]08-15-2023 Procedure note* Gabriela Linda MD - 01/29/2023 1:48 PM EDTProcedure(s): SUTURE REMOVAL PROCECDURE (W NOTE) Pre-Procedure Diagnose(s): Laceration of left ear, subsequent encounter Post-Procedure Diagnose(s): Laceration of left ear, subsequent encounter No problems identified with surgical incision. 6 sutures removed without difficulty. Well-approximated. No signs and symptoms of infection. Reviewed wound care with patient with good understanding. Aware to phone office with any questions or concerns. documented in this [facility] History of Present illness Narrative* Gabriela Linda MD - 01/29/2023 12:58 PM EDT llChief Complaint Patient presents with: ER F/U: Removal of stitches HPI Elsa Pugh is a 67 year old female who presents here today for ER Follow Up.. Patient evaluated at [facility] ED on 01/21 after fall in her bedroom striking left ear/head on her nightstand without LOC. States that she didn't realize she was as close the edge of the bed as she was and rolled off. C/o headache and dizziness without vomiting or seizure activity. CT brain obtained which was negative for intracranial hemorrhage. Wounds closed with 3 simpole interrupted sutures with recommendation for removal in 5-7 days. Patient attributed fall to being tired after being out of her lyrica for several days and was given short course until this could be filled by her neurologist. Has not had any recurrent falls since she was discharged home. Laceration healing well without pain, drainage/discharge, fever/chills. Admits to itching. Not treating with anything OTC. Denies headache, vision changes, vomiting/diarrhea, confusion after head injury. Past medical history, appointments, medications, allergies reviewed. Previous Medical History PAST MEDICAL HISTORY Diagnosis Date Coronary artery disease Dr. Osorio DDD (degenerative disc disease), lumbar Essential hypertension Generalized anxiety disorder Generalized anxiety disorder 01/15/2023 Hemorrhage of rectum and anus History of colonic polyps Hyperlipidemia Hypoglycemia, unspecified Narcolepsy Sleep Medicine in [facility] Obstructive sleep apnea on CPAP PMH - PAST MEDICAL HISTORY OF edema Restless legs syndrome (RLS) S/P CABG x 4 2001 Statin intolerance Type 2 diabetes mellitus without retinopathy (HCC) 03/06/2016 Unspecified asthma(493.90) mild intermittent, triggered by damp weather Uterine prolapse s/p hysterectomy Previous Surgical History PAST SURGICAL HISTORY Procedure Laterality Date COLONOSCOPY FLX DX W/COLLJ SPEC WHEN PFRMD 10/16/2003 Colonoscopy ESOPHAGOGASTRODUODENOSCOPY TRANSORAL DIAGNOSTIC 10/16/2003 EGD LAPS ABD PRTM&OMENTUM DX W/WO SPEC BR/WA SPX Laparoscopy PAST SURGICAL HISTORY OF 01/15/2015 4 new stents were placed PAST SURGICAL HISTORY OF 17 stents PAST SURGICAL HISTORY OF 2001 CABGx4 TONSILLECTOMY PRIMARY/SECONDARY <AGE 11 Tonsillectomy TOTAL ABDOMINAL HYSTERECT W/WO RMVL TUBE OVARY Hysterectomy, ZAKI Family History FAMILY HISTORY Problem Relation Age of Onset other (colon polyps) Father Diabetes Father Heart disease Father Diabetes Sister other (rheumatoid arthritis) Sister Anxiety disorder Sister Heart Attack Sister No Known Problems Maternal Grandmother No Known Problems Maternal Grandfather No Known Problems Paternal Grandmother No Known Problems Paternal Grandfather Drug abuse Son No Known Problems Daughter Patient Allergies ALLERGIES Allergen Reactions Asa [Salicylates] Vomiting Augmentin [Amoxicil* GI Upset Bacol [Other] Belladonna [Bellado* Intolerance GI upset Benazepril Cough Sep 2005 Butazolidin [Other] Carbidopa Darvocet-N 100 [Pro* Intolerance HEADACHE Guaifenesin-Sodium * Ibuprofen Rash Levaquin [Levofloxa* Other: See Comments Hallucinations anxiety numbness tingling Lopid [Gemfibrozil] Niacin Niaspan [Niacin (An* Penicillins Hives Provigil [Modafinil] Mental Status Change hallucinations Ramapril [Other] [id number] Red* Myalgia Sulfa (Sulfonamide * Tramadol Other: See Comments stroke like symptoms Current Medications Current Outpatient Medications on File Prior to Visit Medication Sig pregabalin (LYRICA) 150 mg capsule TAKE 1 CAPSULE BY MOUTH WITH SUPPER AND 1 CAP AT BEDTIME for 90 days promethazine (PHENERGAN) 25 mg tablet Take 1 tablet by mouth every 6 hours as needed for nausea/vomiting. semaglutide (OZEMPIC) 0.25 mg or 0.5 mg(2 mg/1.5 mL) pen Inject 0.5 mg subcutaneously one time a week. metFORMIN (GLUCOPHAGE) 1,000 mg tablet Take 1 tablet by mouth twice daily with meals. ezetimibe (ZETIA) 10 mg tablet Take 1 tablet by mouth once daily. cholecalciferol (VITAMIN D-3) 50 mcg (2,000 unit) tablet Take 2,000 Units by mouth once daily. losartan (COZAAR) 25 mg tablet Take 0.5 tablets by mouth once daily. CPAP/BIPAP/OTHER Formal mask fitting to consider smaller FFM like dreamwear due to dry eyes and supplies for bipap 13/8cmH2O DME [facility] CPAP/BIPAP/OTHER Replacement auto bipap 13/8 with PS of 5cmH2O DME [employer] CPAP/BIPAP/OTHER Settings decrease to autobipap 13/8cmH2O DME [employer] BIPAP DME change for supplies. Pt has a Resmed Auto BiPAP IPAP max 18, EPAP min 6 CM H2O, PS 5 cmH2O. mask, filters, heated humidity & tubing, [employer] supplies. LADAN G47.33 red yeast rice 600 mg tab ascorbic acid, vitamin C, (VITAMIN C) 500 mg tablet Take 500 mg by mouth daily at bedtime. ACCU-CHEK SMARTVIEW TEST STRIP test strip ACCU-CHEK FASTCLIX LANCET DRUM lancets nitroglycerin sublingual (NITROQUICK) 0.4 mg SL tablet Dissolve 0.4 mg under the tongue. MAGNESIUM ORAL Take 300 mg by mouth twice daily. some days takes three tablets citalopram 40 mg tablet Take 1 tablet by mouth once daily. ranolazine ER (RANEXA) 500 mg 12 hr tablet Take 1,000 mg by mouth twice daily. PLAVIX 75 MG TAB Take one(1) tablet daily. No current facility-administered medications on file prior to visit. Social History Social History Tobacco Use Smoking status: Former Packs/day: 0.50 Years: 27.00 Additional pack years: 0.00 Total pack years: 13.50 Types: Cigarettes Quit date: 1997 Years since quittin.6 Smokeless tobacco: Never Substance Use Topics Alcohol use: Yes Comment: 2-3 drinks per month Drug use: No Review of Symptoms REVIEW OF SYSTEMS GENERAL: No weight loss, malaise or fevers RESPIRATORY: Negative for cough, hemoptysis, wheezing, COPD, dyspnea or shortness of breath CARDIOVASCULAR: Negative for chest pain, leg swelling, hypertension, CHF or palpitations GI: No nausea, vomiting, or diarrhea SKIN: Negative for lesions, rash, and itching EXAM: BP 116/64 Pulse (!) 56 Temp 36.3 C (97.3 F) Resp 16 SpO2 97% General Appearance: Well appearing, alert, in no acute distress, well-hydrated, well nourished.. Skin: 6 simple interrupted sutures present with 3 on posterior pinna and 3 on scalp behind her ear.Well healed without cellulitis or drainage. Health Maintenance List URINE ALBUMIN:CREATININE RATIO Never done DIABETIC FOOT EXAM Never done HEPATITIS C SCREENING Never done DILATED RETINAL EXAM due on 03/06/2017 BONE DENSITY Never done ADVANCE DIRECTIVE DISCUSSION Never done DEPRESSION ASSESSMENT Never done DTAP,TDAP,TD(2 - Tdap) due on 12/04/2023 COLORECTAL CANCER SCREENING due on 12/04/2023 SHINGRIX VACCINE(1 of 2) due on 12/04/2023 COVID-19 VACCINE(3 - Pfizer series) due on 12/04/2023 INFLUENZA(1) due on 02/15/2023 HBA1C due on 04/10/2023 PNEUMOCOCCAL: 65+(3 - PPSV23 or PCV20) due on 09/15/2023 MAMMOGRAM due on 12/13/2023 LDL CHOLESTEROL due on 01/09/2024 ANNUAL PCP TEAM CHRONIC DISEASE VISIT due on 01/22/2024 BP CONTROLLED (<130/80) due on 01/22/2024 ASSESSMENT/PLAN: 1. Fall in home, initial encounter - ICD9: E888.9, E849.0, ICD10: W19.XXXA, Y92.009 (primary diagnosis) Patient with fall getting out of bed. Using cane for ambulation and has walker at home. Discussed use of walker if feeling off balance with cane. Use caution getting in and out of bed. 2. Laceration of left earlobe, subsequent encounter - ICD9: V58.89, 872.01, ICD10: S01.312D Well healed. Sutures removed without complication. See procedure note. Discussed wound care for home. - REMOVAL OF SUTURES 3. Contusion of auricle of left ear, subsequent encounter - ICD9: V58.89, ICD10: S00.432D Resolved. 4. Visit for suture removal - ICD9: V58.32, ICD10: Z48.02 - REMOVAL OF SUTURES Gabriela Linda MD documented in this encounterM[facility]-10-[facility]23 Miscellaneous Notes* Telephone Encounter - Tami Jacobs LPN - 01/24/2023 8:21 AM EDT Patient scheduled for 01/29/23. * Telephone Encounter - Tami Jacobs LPN - 01/22/2023 2:55 PM EDT Detailed message left for patient on secure VM. Advised patient to return call to schedule for nextweek for ER follow up/suture removal. * Telephone Encounter - Gabriela Linda MD - 01/22/2023 1:58 PM EDT Needs OV 7-10 day for suture removal. May take imodium OTC PRN for watery diarrhea. Should call if she develops abdominal pain, fever, blood or mucous in stool and stop imodium at that time. * Telephone Encounter - Tami Jacobs LPN - 01/22/2023 1:41 PM EDT Patient also inquiring what she can take for diarrhea? * Telephone Encounter - Tami Jacobs LPN - 01/22/2023 1:21 PM EDT Phoned patient and reviewed message with her. Patient voiced understanding. Patient was seen in ER last night following a fall that caused a laceration behind her ear requiring sutures. Patient to follow up for removal of sutures in 5 days. Patient inquiring if Saturday after 12p would be ok for the follow up visit? ED summary placed on providers desk for review. * Telephone Encounter - Tami Jacobs LPN - 01/22/2023 1:16 PM EDT ----- Message from Gabriela Linda MD sent at 01/22/2023 11:00 AM EDT ----- Negative for COVID and flu. May end isolation. Continue supportive care and restart her lyrica as prescribed by sleep medicine. Call if symptoms not improving in 1 week or worsening. documented in this encounterMari[facility]08-07-2023 History of Present illness Narrative* Gabriela Linda MD - 01/21/2023 4:11 PM EDT Chief Complaint Patient presents with: Vomiting diaphoretic Musculoskeletal Problem: Aching pains Headache Diarrhea HPI Elsa Pugh is a 67 year old female who presents here today for Above Complaints.. Patient here today for complaint of headache, nausea with vomiting, diarrhea, muscle aches, chills,fatigue, rhinorrhea for the last 2 days. Noted cough in the room today, but has not been coughing much at home. Treating with tylenol OTC which helps with her headache and pepto bismol for diarrhea. Admits to loss of taste in the last 2 days. Denies fever, SOB, wheezing, chest pain, chest congestion, sore throat, nasal congestion. No recent sick contacts or COVID exposure in the last 2 weeks. Symptoms improving. Thought symptoms may be 2/2 higher dose metformin or being out of her lyrica. Reviewed patient's chart and Lyrica was sent to pharmacy on 01/15 by her sleep specialist. Past medical history, appointments, medications, allergies reviewed. Previous Medical History PAST MEDICAL HISTORY Diagnosis Date Coronary artery disease Dr. Osorio DDD (degenerative disc disease), lumbar Essential hypertension Generalized anxiety disorder Generalized anxiety disorder 01/15/2023 Hemorrhage of rectum and anus History of colonic polyps Hyperlipidemia Hypoglycemia, unspecified Narcolepsy Sleep Medicine in [place] Obesity Obstructive sleep apnea on CPAP PMH - PAST MEDICAL HISTORY OF edema Restless legs syndrome (RLS) S/P CABG x 4 2001 Statin intolerance Type 2 diabetes mellitus without retinopathy (HCC) 03/06/2016 Unspecified asthma(493.90) mild intermittent, triggered by damp weather Uterine prolapse s/p hysterectomy Previous Surgical History PAST SURGICAL HISTORY Procedure Laterality Date COLONOSCOPY FLX DX W/COLLJ SPEC WHEN PFRMD 10/16/2003 Colonoscopy ESOPHAGOGASTRODUODENOSCOPY TRANSORAL DIAGNOSTIC 10/16/2003 EGD LAPS ABD PRTM&OMENTUM DX W/WO SPEC BR/WA SPX Laparoscopy PAST SURGICAL HISTORY OF 01/15/2015 4 new stents were placed PAST SURGICAL HISTORY OF 17 stents PAST SURGICAL HISTORY OF 2001 CABGx4 TONSILLECTOMY PRIMARY/SECONDARY <AGE 11 Tonsillectomy TOTAL ABDOMINAL HYSTERECT W/WO RMVL TUBE OVARY Hysterectomy, ZAKI Family History FAMILY HISTORY Problem Relation Age of Onset other (colon polyps) Father Diabetes Father Heart disease Father Diabetes Sister other (rheumatoid arthritis) Sister Anxiety disorder Sister Heart Attack Sister No Known Problems Maternal Grandmother No Known Problems Maternal Grandfather No Known Problems Paternal Grandmother No Known Problems Paternal Grandfather Drug abuse Son No Known Problems Daughter Patient Allergies ALLERGIES Allergen Reactions Asa [Salicylates] Vomiting Augmentin [Amoxicil* GI Upset Bacol [Other] Belladonna [Bellado* Intolerance GI upset Benazepril Cough Sep 2005 Butazolidin [Other] Carbidopa Darvocet-N 100 [Pro* Intolerance HEADACHE Guaifenesin-Sodium * Ibuprofen Rash Levaquin [Levofloxa* Other: See Comments Hallucinations anxiety numbness tingling Lopid [Gemfibrozil] Niacin Niaspan [Niacin (An* Penicillins Hives Provigil [Modafinil] Mental Status Change hallucinations Ramapril [Other] Tfhoxff-Ryc-Xwi Red* Myalgia Sulfa (Sulfonamide * Tramadol Other: See Comments stroke like symptoms Current Medications Current Outpatient Medications on File Prior to Visit Medication Sig semaglutide (OZEMPIC) 0.25 mg or 0.5 mg(2 mg/1.5 mL) pen Inject 0.5 mg subcutaneously one time a week. metFORMIN (GLUCOPHAGE) 1,000 mg tablet Take 1 tablet by mouth twice daily with meals. ezetimibe (ZETIA) 10 mg tablet Take 1 tablet by mouth once daily. cholecalciferol (VITAMIN D-3) 50 mcg (2,000 unit) tablet Take 2,000 Units by mouth once daily. losartan (COZAAR) 25 mg tablet Take 0.5 tablets by mouth once daily. CPAP/BIPAP/OTHER Formal mask fitting to consider smaller FFM like dreamwear due to dry eyes and supplies for bipap 13/8cmH2O DME [employer] CPAP/BIPAP/OTHER Replacement auto bipap 13/8 with PS of 5cmH2O DME [employer] CPAP/BIPAP/OTHER Settings decrease to autobipap 13/8cmH2O DME [employer] BIPAP DME change for supplies. Pt has a [employer] Auto BiPAP IPAP max 18, EPAP min 6 CM H2O, PS 5 cmH2O. mask, filters, heated humidity & tubing, [employer] supplies. LADAN G47.33 red yeast rice 600 mg tab ascorbic acid, vitamin C, (VITAMIN C) 500 mg tablet Take 500 mg by mouth daily at bedtime. ACCU-CHEK SMARTVIEW TEST STRIP test strip ACCU-CHEK FASTCLIX LANCET DRUM lancets nitroglycerin sublingual (NITROQUICK) 0.4 mg SL tablet Dissolve 0.4 mg under the tongue. MAGNESIUM ORAL Take 300 mg by mouth twice daily. some days takes three tablets citalopram 40 mg tablet Take 1 tablet by mouth once daily. ranolazine ER (RANEXA) 500 mg 12 hr tablet Take 1,000 mg by mouth twice daily. PLAVIX 75 MG TAB Take one(1) tablet daily. pregabalin (LYRICA) 150 mg capsule TAKE 1 CAPSULE BY MOUTH WITH SUPPER AND 1 CAP AT BEDTIME for 90 days (Patient not taking: Reported on 01/21/2023) No current facility-administered medications on file prior to visit. Social History Social History Tobacco Use Smoking status: Former Packs/day: 0.50 Years: 27.00 Total pack years: 13.50 Types: Cigarettes Quit date: 1997 Years since quittin.6 Smokeless tobacco: Never Substance Use Topics Alcohol use: Yes Comment: 2-3 drinks per month Drug use: No Review of Symptoms REVIEW OF SYSTEMS See HPI EXAM: BP 128/68 Pulse (!) 55 Temp 36.8 C (98.3 F) Resp 16 SpO2 96% General Appearance: Well appearing, alert, in no acute distress, well-hydrated, well nourished.. Skin: Skin color, texture, turgor normal, no suspicious rashes or lesions. Head: Normocephalic, no masses, lesions, tenderness or abnormalities. Eyes: Anicteric sclera. Pupils are equally round and reactive to light. Extraocular movements are intact. . Ears: External ears normal, canals clear. Nose/Sinuses: Nares normal, septum midline, mucosa normal, no drainage or sinus tenderness. Oropharynx: Lips, mucosa, and tongue normal, teeth and gums normal, oropharynx normal. Neck: Supple, no adenopathy; thyroid symmetric, normal size, no bruits. Lungs: Lungs clear to auscultation. No wheezing, rhonchi, rales.. Heart: RRR without murmur, gallop, or rubs. No ectopy. Extremities: No deformities, edema, skin discoloration, clubbing or cyanosis. Good capillary refill. . Health Maintenance List URINE ALBUMIN:CREATININE RATIO Never done DIABETIC FOOT EXAM Never done HEPATITIS C SCREENING Never done DILATED RETINAL EXAM due on 03/06/2017 BONE DENSITY Never done ADVANCE DIRECTIVE DISCUSSION Never done DEPRESSION ASSESSMENT Never done DTAP,TDAP,TD(2 - Tdap) due on 12/04/2023 COLORECTAL CANCER SCREENING due on 12/04/2023 SHINGRIX VACCINE(1 of 2) due on 12/04/2023 COVID-19 VACCINE(3 - Pfizer series) due on 12/04/2023 INFLUENZA(1) due on 02/15/2023 HBA1C due on 04/10/2023 PNEUMOCOCCAL: 65+(3 - PPSV23 or PCV20) due on 09/15/2023 MAMMOGRAM due on 12/13/2023 LDL CHOLESTEROL due on 01/09/2024 ANNUAL PCP TEAM CHRONIC DISEASE VISIT due on 01/09/2024 BP CONTROLLED (<130/80) due on 01/09/2024 ASSESSMENT/PLAN: 1. Suspected COVID-19 virus infection - ICD9: V01.79, ICD10: Z20.822 Suspect viral illness vs COVID vs medication withdrawal from lyrica Recommend rest, supportive care, and should isolate until: At least 5 days have passed since symptoms first appeared and At least 24 hours have passed since last fever without the use of fever-reducing medications and Symptoms (e.g., cough, shortness of breath) have improved. Should wear mask for at least 5 days after he ends isolation to prevent spread to others. Red flags for re-assessment reviewed with patient in detail. Discussed Paxlovid and Lagevrio if positive, would like Lagevrio sent to pharmacy if positive. Advised to pickup lyrica as prescribed by sleep medicine. Can call their office if not at the pharmacy. - COVID WITH FLUA+B, ROUTINE - PROMETHAZINE 25 MG TAB (PHENERGAN) GO PACK Gabriela Linda MD documented in this encounterM[facility]08-07-2023 Miscellaneous Notes* Telephone Encounter - Barry Eduardo RN - 01/21/2023 3:42 PM EDT Pt called and is notified of providers message and instructions. Pt voices understanding. Pt scheduled with provider at 420 today. Barry Eduardo RN * Telephone Encounter - Gabriela Linda MD - 01/21/2023 2:32 PM EDT Increasing her metformin would not cause high BS. Her symptoms could be withdrawal from her lyrica vs infection such as COVID which we have been seeing more of recently. Can schedule OV today as available or could reach out to previous prescribers office for short term refill until she can get in with their replacement. * Telephone Encounter - Elvia Middleton LPN - 01/21/2023 2:07 PM EDT Patient calling in today with complaints of symptoms starting since the increased dose of [id number] BID and has had symptoms of sweating, chills, aches, headache, high BS, nausea and diarrhea.Has been unable to sleep and is unable to relax. States she is extremely anxious. Has not had lyrica since last week due to provider who prescribed it leaving and they have her currently scheduled for feb 13. Patient asking what you advise. Prefer she come in for OV? Elvia Middleton LPN documented in this encounterMarietta [facility]08-04-2023 History of Present illness Narrative* Valerie Rizvi RT(R) - 01/18/2023 3:00 PM EDT Radiology Service Progress Note PATIENT NAME: Elsa Pugh DATE OF SERVICE: January 18, 2023 TIME: 2:48 PM PATIENT IDENTITY VERIFICATION COMPLETED USING TWO (2) IDENTIFIERS: Name and Date of confirmedby patient verbally. FALL SCREENING: Has the patient had 2 falls in the last year or 1 fall with injury or currently using an Ambulatory Assistive Device (Walker, Cane, Wheelchair, Crutches, etc.)? No PATIENT GENDER DATA: Female. status: : No status: NO. PATIENT RELEVANT IMPLANT DATA REVIEWED: Not Applicable RADIOLOGY DEPARTMENT: General X-ray: Exam(s) Completed: Spine X-Ray(s): Lumbar AP / LAT / L5-S1 PERIPHERAL IV DATA: Not applicable SIGNED BY: RT Michael(R) January 18, 2023 2:48 PM documented in this encounterMarietta [facility]08-04-2023 History of Present illness Narrative* Sydni Leger, PT - 01/18/2023 1:58 PM EDT Episode Visit Count: 4 Therapist That Will Accept/Oversee The Plan Of Care: Sydni Leger Start of Care Date: 12/19/22 Onset Date: 09/21/22 Plan of Care Certification Date: 12/19/22 Next Certification Due Date: 02/19/23 REHABILITATION AND SPORTS THERAPY PHYSICAL THERAPY DISCONTINUANCE OF CARE PLAN OF CARE UPDATE: Assessment: Elsa Pugh is discontinued from Physical Therapy services due to maximal benefit.. Patient was seen for 4 visits from Start of Care Date: 12/19/22 to 01/18/2023 and treatment included: Therapeutic exercise, Manual therapy, and Self-nursing home management. Pt has seen no change in pain/symptoms or function outside of therapy. Due to lack of progress made patient will be referred back to referring physician for further evaluation for a lumbar source of pain. Goals updated on 01/16/2023. Goals for Episode of Care: created on 12/19/22 through 02/21/23 Independent in home exercises. Met Patient will decrease pain rating by 2 points to meet minimal clinical important difference for numeric pain rating scale. Not met Restore pain-free lumbar ROM to WNL to allow for improved functional mobility and walking. Not met Stand / Walk as needed for ADLs without pain/symptoms. Not met Patient will increase strength of trunk/core to 4 to 4+/5 to allow for improve ability to complete ADLs. Not met SUBJECTIVE: No change in patients symptoms. Exercises do not seem to be helping. feel good in the moment but pain returns shortly after. Pain: Pain Pain Level: 7 Pain Location: Hip - Left Description: Sharp Frequency: Continuous PROMIS Scales Higher is Better 12/18/2022 Phys Func - Score 35 (moderate dysfunction) Phys Func - Percentile 7 % Self-Eff Symptom - Score 33 (Low) Self-Eff Symptom - Percentile 4 % T-scores: mean of general population = 50. 5 points is clinically meaningfully difference Percentiles provide an indication of how the patient's score ranks in relation to the general population. Higher percentile rankings indicate better function/quality of life. 50th percentile is the average of the general population and indicates half of respondents had a worse score. OBJECTIVE MEASURES WITH LEVEL OF FUNCTION: LE Strength Trunk Strength: 3+/5 R LE Strength: 4+/5 L LE Strength: 4/5 Special Tests - Hip and Spine SLR Test: Left Positive Extension with Rotation Test: Left Positive FADDIR Test: Left Negative Scour Test: Left Positive TREATMENT: Therapeutic Exercise: 1: SKC 3x30 sec on L 2: TA bracing PPT 3x10, 5 sec holds 3: Fig 4 piriformis stretch 3x30 sec 4: Seated rows 3x10, GTB 5: Hooklying trunk rotations x20/side Skilled Intervention: Patient was educated in proper exercise technique and purpose for exercises. Skilled judgment was provided in selection of appropriate interventions. Provided written instruction for home exercise program to facilitate proper performance and compliance. Correct performance of therapeutic exercises was facilitated with verbal and visual cuing. Billing Therapeutic Exercise Treatment Minutes: 25 Total Treatment Time Minutes (timed/untimed): 25 Session Start Time : 1450 Session Stop Time : 1515 Sydni Leger PT documented in this encounterMarietta [facility]08-04-2023 Miscellaneous Notes* Telephone Encounter - Barry Eduardo RN - 01/18/2023 1:26 PM EDT Pt called and is notified of providers message and instructions. Pt voices understanding and will come in and get x-ray done. Barry Eduardo RN * Telephone Encounter - Gabriela Linda MD - 01/18/2023 11:52 AM EDT If she has failed conservative therapy with physical therapy I would recommend checking xray of herlower back and then MRI. Depending on findings, may need referral to pain management instead of ortho spine. Needs to get xray before insurance would cover MRI. * Telephone Encounter - Barry Eduardo RN - 01/18/2023 11:45 AM EDT Pt called in and reports she had her last PT appointment with Sydni on Saturday. He said she isn't improving much, and he sees that she has and appointment in February with ortho but he thinks she should see spine. He thinks it is more from her back. She was asking if the Ortho appointment should be canceled and if she should get a referral to Spine. Please call and advise. documented in this encounterMarietta [facility]08-02-2023 Miscellaneous Notes* Telephone Encounter - Yaz Marquez RN - 01/16/2023 12:01 PM EDT Phoned pt and gave provider's message below with verbalized understanding. Pt agreeable. * Telephone Encounter - Gabriela Linda MD - 01/16/2023 10:53 AM EDT Zetia ordered. No labs for 1 month appointment, but she does need to bring in her glucose log or glucometer as noted previously. * Telephone Encounter - Barry Eduardo RN - 01/16/2023 10:33 AM EDT Pt called and is notified of providers message and instructions. Pt voices understanding. Let Pt know Zetia is not a Statin and she was ok trying it. Please let Pt know when all medications have beensent to the pharmacy and if provider would like Pt to get any labs drawn before appointment on 02/20/23. Barry Eduardo RN * Telephone Encounter - Gabriela Linda MD - 01/16/2023 8:35 AM EDT Reviewed. Increase medications as prescribed. Needs f/u in 1 month. * Telephone Encounter - Tami Jacobs LPN - 01/15/2023 7:11 PM EDT Patient is agreeable with increases in both the metformin and ozempic. She is reluctant about zetiaas she has issues with statins d/t fibromyalgia. Advised her would forward her concern to provider and see what he recommends. She was agreeable to hear what provider says. * Telephone Encounter - Tami Jacobs LPN - 01/15/2023 7:01 PM EDT ----- Message from Gabriela Linda MD sent at 01/15/2023 6:35 PM EDT ----- A1c shows uncontrolled DM up to 9.3 and average sugar of 220. Cholesterol and triglycerides high aswell. Other labs unremarkable. Please confirm patient is taking metformin and Ozempic as prescribed for DM. Options at this time would be to increase her metformin to 1,000 mg BID and Ozempic to 0.5 mg weekly and f/u in office in 1 month with glucose readings. Would have her check fasting and before bed. If agreeable, will send new rx. For high cholesterol, we could try her on Zetia daily to reduce her cholesterol. Will send rx if agreeable. documented in this encounterMarietta [facility]08-01-2023 Miscellaneous Notes* Telephone Encounter - Elizabeth Nguyen RN - 01/15/2023 8:53 AM EDT MyChart message sent * Telephone Encounter - Randall Silva APRN.JUANITA - 01/15/2023 8:35 AM EDT RF approved. PDMP website checked and validated. All prescriptions have been APPROPRIATELY filled. No suspiciousactivity was identified. 01/15/2023 by Randall Silva APRN.[employer] * Telephone Encounter - Elizabeth Nguyen RN - 01/15/2023 7:39 AM EDT VINOD: 10/17/22 SAMPSON Lynn In Person - 02/16/22 Shane Concepcion F/U: 02/13/23 in person Sandy IMPRESSION: Ladan (obstructive sleep apnea) (primary encounter diagnosis) Left knee pain, unspecified chronicity Bilateral hip pain Dry eyes Elsa Pugh is a 67 year old female with a PMH of DM 2, HTN, HLD, chronic rhinitis, and obesity who presents via zoom for LADAN and RLS follow up. PSG completed at outside medical facility. -Ms. Pugh does well with pap therapy. She denies pressured intolerance, is compliant and benefits. She reports she feels better with use. She notes her FFM is leaking into her eyes and is causing dry eye. Will do formal mask refitting to consider smaller FFM. -RLS remains stable, IRLG SG score today is 22 down from 25 at last visit. She continues to tolerate lyrica well and denies side effects. She reports worsening hip and knee pain, she's seeing pcp next month and will discuss there. I think more of her discomfort is pain related as apposed to RLS. PLAN: - Continue Bilevel PAP at 13/8cmH2O. - Remember to clean your mask and equipment regularly, as directed. - You should be eligible for new supplies approximately every 3-6 months, depending on your insurance coverage. Contact your Durable Medical Equipment (DME) company for new supplies as needed. - Follow up in 3 months with sleep physician, former Dr. Concepcion patient. Ban Lynn APRN.[employer] * Telephone Encounter - Betty Arboleda - 01/14/2023 4:44 PM EDT The patient is scheduled on 02/13/23. * Telephone Encounter - Jair Mariscal - 01/14/2023 8:06 AM EDT Physician: Elsa Pugh Call from patient requesting refill. Please E-Scribe Last office visit 10/17/22 with LUKE Lynn virtual Next office visit 03/06/23 with LUKE Lynn in person Requested Prescriptions Pending Prescriptions Disp Refills pregabalin (LYRICA) 150 mg capsule 180 capsule 0 Sig: TAKE 1 CAPSULE BY MOUTH WITH SUPPER AND 1 CAP AT BEDTIME for 90 days Pharmacy Name: [facility] [address] [place] [id number] [id number] [place] [phone] [facility] Jair Mariscal documented in this encounterMarietta [facility]opathic Clinic07-29-2023 Miscellaneous Notes* Telephone Encounter - Tami Jacobs LPN - 01/12/2023 11:55 AM EDT Phoned patient and reviewed results with her. She stated she will contact insurance to see what orthopedic is covered and let us know when she calls to schedule. * Telephone Encounter - Alta Obregon OCCA - 01/11/2023 11:52 AM EDT TC to patient with no answer. Left VM to return call to office regarding results. SABI Bueno * Telephone Encounter - Alta Obregon OCCA - 01/11/2023 11:51 AM EDT ----- Message from Gabriela Linda MD sent at 01/11/2023 11:17 AM EDT ----- Xray of the left hip is negative for fracture or dislocation. Joint spaces maintained. Noted arthritis changes in lumbar spine. F/u with treatment as discussed in office. documented in this encounterMarietta [facility] Clinic07-27-2023 History of Present illness Narrative* Sydni Leger PT - 01/10/2023 2:42 PM EDT Episode Visit Count: 3 Therapist That Will Accept/Oversee The Plan Of Care: Sydni Leger Start of Care Date: 12/19/22 Onset Date: 09/21/22 Plan of Care Certification Date: 12/19/22 Next Certification Due Date: 02/19/23 REHABILITATION AND SPORTS THERAPY PHYSICAL THERAPY TREATMENT NOTE ASSESSMENT: Elsa Pugh tolerated the session with no issues. She demonstrated difficulty with WB and LLE pain. The patient will continue to benefit from ongoing skilled physical therapy to progress toward set goals. PLAN FOR NEXT VISIT: SD SUBJECTIVE: Patient Reason for Visit: Pt about the same Pain: Pain Pain Level: 8 Pain Location: Hip - Left Description: Sharp Frequency: Continuous OBJECTIVE MEASURES WITH LEVEL OF FUNCTION: Form observed with all exercises today TREATMENT: Therapeutic Exercise: 1: SKC 3x30 sec on L 2: Fig 4 piriformis stretch 3x30 sec on L 3: TA bracing 2x10, 10 sec holds 4: *TA bracing with hip hikes 2x10 5: *TA bracing plus BKFO 2x10/side 6: *GTB seated rows/scap retraction 2x10 Skilled Intervention: Patient was educated in proper exercise technique and purpose for exercises. Skilled judgment was provided in selection of appropriate interventions. Provided written instruction for home exercise program to facilitate proper performance and compliance. Correct performance of therapeutic exercises was facilitated with verbal, visual, and tactile cuing. Billing Therapeutic Exercise Treatment Minutes: 39 Total Treatment Time Minutes (timed/untimed): 39 Session Start Time : 1418 Session Stop Time : 1457 Sydni Arsen, PT documented in this encounterMarietta Osteopathic Clinic07-19-2023 History of Present illness Narrative* Sydni Leger PT - 01/02/2023 2:59 PM EDT Episode Visit Count: 2 Therapist That Will Accept/Oversee The Plan Of Care: Sydni Leger Start of Care Date: 12/19/22 Onset Date: 09/21/22 Plan of Care Certification Date: 12/19/22 Next Certification Due Date: 02/19/23 REHABILITATION AND SPORTS THERAPY PHYSICAL THERAPY TREATMENT NOTE ASSESSMENT: Elsa Pugh tolerated the session with decreased symptoms. She demonstrated difficulty with standing for prolonged periods. The patient will continue to benefit from ongoing skilledphysical therapy to progress toward set goals. PLAN FOR NEXT VISIT: Progress core strengthening per tolerance SUBJECTIVE: Patient Reason for Visit: Pt doing slightly better, but standing for long periods stillreally flares her up. Pain: Pain Pain Level: 8 Pain Location: Hip - Left Description: Sharp Frequency: Continuous OBJECTIVE MEASURES WITH LEVEL OF FUNCTION: Form observed throughout exercises TREATMENT: Therapeutic Exercise: 1: SKC 3x30 sec on L 2: DKC 3x30 sec (ceased due to increase hip joint pain) 3: *Fig 4 piriformis stretch 3x30 sec on L 4: *TA bracing 3x10, 5 sec holds 5: *TA bracing plus alt hip hikes 3x10/side Skilled Intervention: Patient was educated in proper exercise technique and purpose for exercises. Skilled judgment was provided in selection of appropriate interventions. Provided written instruction for home exercise program to facilitate proper performance and compliance. Correct performance of therapeutic exercises was facilitated with verbal, visual, and tactile cuing. Billing Therapeutic Exercise Treatment Minutes: 26 Total Treatment Time Minutes (timed/untimed): 26 Sydni Leger PT documented in this encounterM[facility]07-[facility]23 History of Present illness Narrative* Sydni Leger PT - 12/21/2022 12:44 PM EDT Episode Visit Count: 1 Therapist That Will Accept/Oversee The Plan Of Care: Sydni Leger Start of Care Date: 12/19/22 Onset Date: 09/21/22 Plan of Care Certification Date: 12/19/22 Next Certification Due Date: 02/19/23 Patient Identified by Name and Date of : Yes REHABILITATION AND SPORTS THERAPY PHYSICAL THERAPY EVALUATION PLAN OF CARE: Assessment: Elsa Pugh presents with chief complaint of L hip pain that interferes with rising from a chair, standing, stair negotiation, bending, heavy exertion, physical activities, working,sleeping . She presents with impairments in ADL's, overall function, range of motion, strength, andsymptom management. PROMIS (Patient-Reported Outcomes Measurement Information System) scores were re viewed and all domains identified as a rehabilitation concern. Prognosis for therapy is Good due to: current objective clinical presentation, good overall health status, acuteness of condition, positive past response to therapy, within-session changes, good support system/ coping skills . She will benefit from skilled therapy services to meet the goals established for this plan of care as noted below. Classification Low Back Pain Subgroup Classification: Specific exercise subgroup: recommended visits 8. Specific Exercies Subgroup Classification based on: directional preference, centralization, peripheralization Goals for Episode of Care: created on 12/19/22 through 02/21/23 Independent in home exercises. Patient will decrease pain rating by 2 points to meet minimal clinical important difference for numeric pain rating scale. Restore pain-free lumbar ROM to WNL to allow for improved functional mobility and walking Stand / Walk as needed for ADLs without pain/symptoms. Patient will increase strength of trunk/core to 4 to 4+/5 to allow for improve ability to complete ADLs. Planned Interventions, Frequency, and Duration: Current Frequency: 1x/week Duration: 8 weeks Total Number of Visits Planned: 8 Planned Treatment Interventions: Therapeutic exercise (75802), Neuromuscular re- education (36568), Manual therapy (81995), Therapeutic activities (02244), Self- nursing home management (93214), Patient/Family/Caregiver Education, Body Mechanics Training PLAN FOR NEXT VISIT: Assess HEP addition and response to traction Patient demonstrates good understanding of plan of care and treatment. The above goals and plan of care were discussed and agreed upon by patient/family. SUBJECTIVE: Elsa Pugh is a 67 year old female seen today for L hip pain x 3 months with no known onset. Walking, sitting, lying all make it worse. The only thing that makes it feel better is lying in the hard ground. Compensating for her L hip, the R knee is starting to flare up bad. 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 Functional Limitations: rising from a chair, standing, stair negotiation, bending, heavy exertion, physical activities, working, sleeping Intake Information: Prescription present Pain: Pain Pain Level: 10 Pain Location: Hip - Left Description: Sharp Frequency: Continuous PROMIS Scales Higher is Better 12/18/2022 Phys Func - Score 35 (moderate dysfunction) Phys Func - Percentile 7 % Self-Eff Symptom - Score 33 (Low) Self-Eff Symptom - Percentile 4 % T-scores: mean of general population = 50. 5 points is clinically meaningfully difference Percentiles provide an indication of how the patient's score ranks in relation to the general population. Higher percentile rankings indicate better function/quality of life. 50th percentile is the average of the general population and indicates half of respondents had a worse score. OBJECTIVE MEASURES WITH LEVEL OF FUNCTION: Lumbar Spine AROM Lumbar Flexion: Normal Lumbar Extension: Increased pain, Peripheralizing Lumbar R Side-Bend: Normal Lumbar L Side-Bend: Increased pain, Peripheralizing Lumbar R Rotation: Normal Lumbar L Rotation: Normal LE Strength Trunk Strength: 3+/5 grossly R LE Strength: 4+/5 L LE Strength: 4/5 Special Tests - Hip and Spine Hip and Spine Special Tests: SLR Test, Extension with Rotation Test, FADDIR Test, Scour Test SLR Test: Left Positive Extension with Rotation Test: Left Positive FADDIR Test: Left Positive Scour Test: Left Positive Education: Education Learning/educational needs: Home exercise program, Plan of Care, Changes in Plan of Care TREATMENT: PT Treatment Interventions: Therapeutic Exercise, Manual Therapy, Self-Assisted Management Evaluation Therapeutic Exercise: 1: *SKC 3x30 sec 2: *DKC 3x30 sec 3: *R lateral bend stretch 3x10, 5 sec holds Skilled Intervention: Patient was educated in proper exercise technique and purpose for exercises. Skilled judgment was provided in selection of appropriate interventions. Provided written instruction for home exercise program to facilitate proper performance and compliance. Correct performance of therapeutic exercises was facilitated with verbal, visual, and tactile cuing. Manual Therapy: 1: Manual lumbar belt traction x10 min feet on stool, pull to tolerance Skilled Intervention: Manual skills to improve joint mobility, ROM, and decrease pain. Utilized anatomy knowledge of the therapist, and assessment of patient's response to intervention. Self-Assisted Management: 1: Discussed today's exam findings, related to rehab implications and plan of care Skilled Intervention: Skilled judgment in the selection of proper modification for activity of daily living/home management based on clinical presentation, deficits, and needs. Activity progression based on professional judgement. Billing * Evaluation Low Complexity: 1 Unit Therapeutic Exercise Treatment Minutes: 10 Manual TherapyTreatment Minutes: 10 Self-Care/Home Management Treatment Minutes: 5 Total Treatment Time Minutes (timed/untimed): 50 Sydni Leger PT documented in this encounterM[facility]06-29-2023 Miscellaneous Notes* Letter - Mammography Coordinator - 12/13/2022 11:51 AM EDT December 14, 2022 PID: [id number] Elsa Pugh [address] [place] [address] Dear Ms. Pugh, We are pleased to inform you that the results of your recent breast imaging exam on 12/12/2022 are normal. Early detection of cancer is very important. We also understand recommendations regarding breast cancer screening are controversial. Please discuss with your primary care provider which strategy is best for you and whether a mammogram is right for you. Your imaging studies and report will be kept on file at [facility] as part of your permanent medical record and are available for your continuing care. Thank you for allowing us to help in meeting your health care needs. Sincerely, Dr. Cisneros Interpreting Radiologist [facility] (Normal over 40) documented in this encounterMarietta [facility]06-21-2023 Miscellaneous Notes* Telephone Encounter - Michelle Quevedo MA - 12/05/2022 12:01 PM EDT [employer] message sent. Michelle Quevedo MA * Telephone Encounter - Michelle Quevedo MA - 12/05/2022 12:00 PM EDT ----- Message from Gabriela Linda MD sent at 12/05/2022 11:08 AM EDT ----- Urine culture growing normal bacteria. No need for abx at this time. * Telephone Encounter - Tami Jacobs LPN - 12/04/2022 12:12 PM EDT Message left for patient to return call to discuss results and PCP's recommendations. * Telephone Encounter - Tami Jacobs LPN - 12/04/2022 12:11 PM EDT ----- Message from Gabriela Linda MD sent at 12/04/2022 9:39 AM EDT ----- UA positive for sugar as well as small amount of WBC and RBCs. Urine culture in process. Recommend pushing PO fluids and DM diet while awaiting results. documented in this encounterMarietta [facility]06-19-2023 History of Present illness Narrative* Gabriela Linda MD - 12/03/2022 2:40 PM EDT Chief Complaint Patient presents with: New Patient HPI Elsa Pugh is a 67 year old female who presents here today for establish care visit. Previous PCP Dr. Garces with last OV about 2-3 months ago. Patient complaining today of left hip pain which started about 2-3 months ago. Pain described as constant sharp/pinching pain located over lateral aspect and anterior hip. Radiates down her left leg to the knee. Exacerbated with walking and standing. Improved with lying on cold floor on her left side.Treating with tylenol and Aleve without much improvement. Admits to swelling and lower back pain.Denies fever/chills, erythema, bruising, limited ROM, weakness, Has been evaluated at the [facility] x2 and was given shot of Toradol and then obtained xray which showed arthritis. Notes that she had a fall in September at home after tripping over end table landing onto her right shoulder and then landed hard on her right buttock when she tried to stand up. No pain on the right side today. DM: Patient states that she had A1c in September and was 7.8. Told to continue on current regimen. Taking metformin BID as prescribed. Checking sugars BID with reported average of 130. History of CAD s/p CABG x4 and total of [address] Osorio's office. Asymptomatic on medical management. Has follow up appointment in December. Statse that she was told by her business lawyer that she was not a candidate for surgery again unless it was life or . LADAN on Bipap nightly as directed. Due for screening mammogram and needs order today. Past medical history, appointments, medications, allergies reviewed. Previous Medical History PAST MEDICAL HISTORY Diagnosis Date Coronary artery disease Diarrhea Hemorrhage of rectum and anus Hypoglycemia, unspecified Obstructive sleep apnea PMH - PAST MEDICAL HISTORY OF edema PMH - PAST MEDICAL HISTORY OF CAD PMH - PAST MEDICAL HISTORY OF hyperlipidemia Restless legs syndrome (RLS) Type 2 diabetes mellitus without retinopathy (HCC) 03/06/2016 Unspecified asthma(493.90) Unspecified essential hypertension Unspecified sleep apnea Previous Surgical History PAST SURGICAL HISTORY Procedure Laterality Date COLONOSCOPY FLX DX W/COLLJ SPEC WHEN PFRMD 10/16/2003 Colonoscopy ESOPHAGOGASTRODUODENOSCOPY TRANSORAL DIAGNOSTIC 10/16/2003 EGD LAPS ABD PRTM&OMENTUM DX W/WO SPEC BR/WA SPX Laparoscopy PAST SURGICAL HISTORY OF 01/15/2015 4 new stents were placed PAST SURGICAL HISTORY OF 01/16/2016 1 stent PAST SURGICAL HISTORY OF 2001 CABGx4 TONSILLECTOMY PRIMARY/SECONDARY <AGE 11 Tonsillectomy TOTAL ABDOMINAL HYSTERECT W/WO RMVL TUBE OVARY Hysterectomy, ZAKI Family History FAMILY HISTORY Problem Relation Age of Onset other (colon polyps) Father Patient Allergies ALLERGIES Allergen Reactions Asa [Salicylates] Vomiting Augmentin [Amoxicil* GI Upset Bacol [Other] Belladonna [Bellado* Intolerance GI upset Benazepril Cough Sep 2005 Butazolidin [Other] Carbidopa Darvocet-N 100 [Pro* Intolerance HEADACHE Guaifenesin-Sodium * Ibuprofen Rash Levaquin [Levofloxa* Other: See Comments Hallucinations anxiety numbness tingling Lopid [Gemfibrozil] Niacin Niaspan [Niacin (An* Penicillins Hives Provigil [Modafinil] Mental Status Change hallucinations Ramapril [Other] Btylfhy-Mjy-Nfa Red* Myalgia Sulfa (Sulfonamide * Tramadol Other: See Comments stroke like symptoms Current Medications Current Outpatient Medications on File Prior to Visit Medication Sig CPAP/BIPAP/OTHER Formal mask fitting to consider smaller FFM like dreamwear due to dry eyes and supplies for bipap 13/8cmH2O DME [facility] pregabalin (LYRICA) 150 mg capsule TAKE 1 CAPSULE BY MOUTH WITH SUPPER AND 1 CAP AT BEDTIME for 90 days CPAP/BIPAP/OTHER Replacement auto bipap 13/8 with PS of 5cmH2O DME [facility] CPAP/BIPAP/OTHER Settings decrease to autobipap 13/8cmH2O DME [employer] BIPAP DME change for supplies. Pt has a [employer] Auto BiPAP IPAP max 18, EPAP min 6 CM H2O, PS 5 cmH2O. mask, filters, heated humidity & tubing, [employer] supplies. LADAN G47.33 red yeast rice 600 mg tab ascorbic acid, vitamin C, (VITAMIN C) 500 mg tablet Take 500 mg by mouth daily at bedtime. nitroglycerin sublingual (NITROQUICK) 0.4 mg SL tablet Dissolve 0.4 mg under the tongue. MAGNESIUM ORAL Take 300 mg by mouth twice daily. some days takes three tablets citalopram 40 mg tablet Take 1 tablet by mouth once daily. ranolazine ER (RANEXA) 500 mg 12 hr tablet Take 1,000 mg by mouth twice daily. PLAVIX 75 MG TAB Take one(1) tablet daily. ACCU-CHEK SMARTVIEW TEST STRIP test strip ACCU-CHEK FASTCLIX LANCET DRUM lancets metFORMIN (GLUCOPHAGE) 500 mg tablet Take 1 tablet by mouth three times daily. No current facility-administered medications on file prior to visit. Social History Social History Tobacco Use Smoking status: Never Smokeless tobacco: Never Substance Use Topics Alcohol use: No Drug use: No Review of Symptoms REVIEW OF SYSTEMS GENERAL: No weight loss, malaise or fevers RESPIRATORY: Negative for cough, hemoptysis, wheezing, COPD, dyspnea or shortness of breath CARDIOVASCULAR: Negative for chest pain, leg swelling, hypertension, CHF or palpitations GI: No nausea, vomiting, or diarrhea SKIN: Negative for lesions, rash, and itching HEMATOLOGY/LYMPHOLOGY: Negative for prolonged bleeding, bruising easily or swollen nodes ENDOCRINE: Negative for cold or heat intolerance, polydipsia and goiter. Admits to polyuria. EXAM: BP 116/62 Pulse 64 Resp 16 Ht 167.6 cm (5' 6) Wt 95.3 kg (210 lb) BMI 33.89 kg/m General Appearance: Well appearing, alert, in no acute distress, well-hydrated, well nourished.. Skin: Skin color, texture, turgor normal, no suspicious rashes or lesions. Back:no pain to palpation of vertebrae, good flexion and extension, good range of motion, reflexes are 2+ and symmetric, motor and sensory appear to be normal, no evidence of scoliosis. TTP over lumbar paraspinal muscles bilaterally. Lungs: Lungs clear to auscultation. No wheezing, rhonchi, rales.. Heart: RRR without murmur, gallop, or rubs. No ectopy. Abdomen: Normal abdominal exam, Abdomen soft, non-tender. Bowel sounds normal. No masses, organomegaly. Extremities: No deformities, edema, skin discoloration, clubbing or cyanosis. Good capillary refill. HIP: Location: Left Range of motion: WNL, pain with internal rotation Tenderness over trochanteric bursa: yes Pain with movement: Yes. Health Maintenance List PNEUMOCOCCAL: 64+(1 - PCV) Never done URINE ALBUMIN:CREATININE RATIO Never done DIABETIC FOOT EXAM Never done LDL CHOLESTEROL Never done ANNUAL PCP TEAM CHRONIC DISEASE VISIT Never done HEPATITIS C SCREENING Never done BP CONTROLLED (<130/80) Never done MAMMOGRAM Never done COLORECTAL CANCER SCREENING Never done SHINGRIX VACCINE(1 of 2) Never done DTAP,TDAP,TD(2 - Tdap) due on 03/17/2013 DILATED RETINAL EXAM due on 03/06/2017 BONE DENSITY Never done COVID-19 VACCINE(3 - Booster for Pfizer series) due on 02/06/2021 HBA1C due on 10/02/2021 ADVANCE DIRECTIVE DISCUSSION Never done DEPRESSION ASSESSMENT Never done INFLUENZA(Season Ended) due on 02/15/2023 Data reviewed Component Latest Ref Rng & Units 07/04/2021 Protein, Total 6.3 - 8.0 g/dL 6.4 Albumin 3.9 - 4.9 g/dL 4.1 Calcium 8.5 - 10.2 mg/dL 9.0 Bilirubin, Total 0.2 - 1.3 mg/dL 0.3 Alkaline Phosphatase 34 - 123 U/L 74 AST 13 - 35 U/L 18 Glucose 74 - 99 mg/dL 254 (H) BUN 7 - 21 mg/dL 9 Creatinine 0.58 - 0.96 mg/dL 0.75 Sodium 136 - 144 mmol/L 139 Potassium 3.7 - 5.1 mmol/L 4.3 Chloride 97 - 105 mmol/L 101 CO2 22 - 30 mmol/L 26 Anion Gap 9 - 18 mmol/L 12 ALT 7 - 38 U/L 12 eGFR- >60 eGFR-All Other Races . >60 WBC 3.70 - 11.00 k/uL 5.45 RBC 3.90 - 5.20 m/uL 4.53 Hemoglobin 11.5 - 15.5 g/dL 13.0 Hematocrit 36.0 - 46.0 % 42.9 MCV 80.0 - 100.0 fL 94.7 MCH 26.0 - 34.0 pG 28.7 MCHC 30.5 - 36.0 g/dL 30.3 (L) RDW-CV 11.5 - 15.0 % 14.5 Platelet Count 150 - 400 k/uL 235 MPV 9.0 - 12.7 fL 11.8 Absolute nRBC <0.01 k/uL <0.01 Iron 41 - 186 ug/dL 73 TIBC 232 - 386 ug/dL 304 Transferrin Saturation 15 - 57 % 24 Hemoglobin A1C 4.3 - 5.6 % 8.8 (H) Estimated Average Glucose mg/dL 206 Triglyceride <150 mg/dL 381 (H) Fasting Time hrs Unknown Ferritin 14.7 - 205.1 ng/mL 131.0 Vitamin B12 232 - 1,245 pg/mL 706 ASSESSMENT/PLAN: 1. Hip pain, left - ICD9: 719.45, ICD10: M25.552 (primary diagnosis) 2/2 OA vs trochanteric bursitis. Attempted to pull up imaging on her disc from [facility] without success. Will obtain report. Discussed treatment with ice, rest, Tylenol, and home exercises. Will refer to PT, but if bone on bone arthritis, will refer to ortho instead for injection. - CONSULT TO PHYSICAL THERAPY 2. Chronic bilateral low back pain with left-sided sciatica - ICD9: 724.2, 724.3, 338.29, ICD10: M54.42, G89.29 Chronic low back pain - Ice for localized tenderness - Warm moist heat for 20 min three times a day - PT consult - Patient given instructions use of medications as ordered, intermittent rest, back care exercise program, weight loss, improved posture, proper lifting techniques, and intermittent use of heat - CONSULT TO PHYSICAL THERAPY 3. Type 2 diabetes mellitus without retinopathy (HCC) - ICD9: 250.00, ICD10: E11.9 New to me. - Continue current medications - Counseled on healthy diet and regular exercise - Discussed need for and benefit of weight loss. BMI 33.89 kg/(m^2) - Discussed diabetic education issues of diabetes complications and monitoring required, hypoglycemic/hyperglycemic symptoms, and medication-specific side effects and monitoring - Follow up in 1 months, sooner should any other issues arise. - HGB A1C - ALBUMIN/CREAT RATIO RND UR - COMP METABOLIC PANEL - LIPID PANEL, NONFASTING - LOSARTAN 25 MG TABLET 4. Polyuria - ICD9: 788.42, ICD10: R35.89 Check UA. Work on DM diet and continue current regimen. - URINALYSIS WITH MICROSCOPIC, REFLEX CULTURE 5. Coronary artery disease involving [place] heart without angina pectoris, unspecified vessel or lesion type - ICD9: 414.01, ICD10: I25.10 Asymptomatic on medical management. F/u with Dr. Osorio's office as scheduled. 6. Restless legs syndrome (RLS) - ICD9: 333.94, ICD10: G25.81 Controlled on Lyrica. 7. LADAN treated with BiPAP - ICD9: 327.23, ICD10: G47.33 Continue nightly Bipap. 8. Essential hypertension, benign - ICD9: 401.1, ICD10: I10 - Controlled - Continue current medications - Recommend home blood pressure monitoring, to bring results to next visit - Encouraged sodium restriction, DASH or Mediterranean diet - Recommend regular aerobic exercise 9. Screening mammogram, encounter for - ICD9: V76.12, ICD10: Z12.31 - [facility] SCREENING Gabriela Linda MD documented in this encounterMarietta [facility]06-13-2023 Miscellaneous Notes* Telephone Encounter - Elsa Mcclain LPN - 11/27/2022 1:54 PM EDT TC to pt. Left a detailed message on a secure line with updates. Elsa Mcclain LPN * Telephone Encounter - Gabriela Linda MD - 11/27/2022 11:37 AM EDT Recommend EC for evaluation if patient has not established care yet. * Telephone Encounter - Elvia Middleton LPN - 11/27/2022 11:30 AM EDT There are no openings with either Maddi or Anay Podlogar to establish care between then and now.What should I recommend to patient? Elvia Middleton LPN * Telephone Encounter - Jenna Blair LPN - 11/27/2022 11:19 AM EDT Pt calls to report she has an appt on 12/03 as a new pt. Pt is asking if she can be seen sooner. Pt reports she is having a lot of pain in left hip/lower back. Call pt if provider is able to see pt sooner or not. Jenna Blair LPN documented in this encounterMarietta [facility] Clinic05-03-2023 Miscellaneous Notes* Telephone Encounter - SABI Gomez - 10/17/2022 8:38 AM EDT A fax with the notes and script of Elsa Pugh has been sent to [facility] at [phone] for sleep health. The document has been sent with a report of completion and will be filed at [facility] until further review. documented in this encounterMarietta [facility] Clinic05-03-2023 History of Present illness Narrative* Ban Lynn APRN.[employer] AMBASSADOR - 10/17/2022 8:00 AM EDT Images from the original note were not included. [facility] Follow up/ Established patient visit I have communicated my name and active licensure. The patient's identity and physical location wereverified at the time of this visit. Either the patient or their legal residential sales representative has been informed of the risks and benefits of -- and alternatives to -- treatment through a remote evaluation andconsents to proceed with the evaluation remotely. In [facility] Date of last visit :02/16/2022 Per last visit: IMPRESSION: Restless legs syndrome (rls) Polyneuropathy due to type 2 diabetes mellitus (hcc) Iron deficiency anemia, unspecified iron deficiency anemia type (primary encounter diagnosis) Ladan (obstructive sleep apnea) Elsa Pugh is a 66 year old female with a PMH of DM 2, HTN, HLD, chronic rhinitis, and obesity who presents in office for LADAN and RLS follow up. PSG completed at outside medical facility -IRLS SG score of 25 today. Ms. Pugh reports worsening symptoms, she was started on ozempic which may be contributing. Will recheck iron levels today. Increased lyrica to 150mg with dinner and before bed to see if this improves symptoms. -Ms. Pugh reports discomfort with autobipap use. She states pressures feel like too much. She's experiencing high mask leak which is also disturbing. Will drop pressures to 13/8cmH2O to see if pressure intolerance improves. She's not been able to use it more than a few hours -She has completely weaned ativan prior to bed. PLAN: - Continue Auto Bilevel PAP at 13/8cmH2O. - Remember to clean your mask and equipment regularly, as directed. - You should be eligible for new supplies approximately every 3-6 months, depending on your insurance coverage. Contact your Durable Medical Equipment (DME) company for new supplies as needed. - Increase lyrica to 150mg, 1 cap with dinner and 1 cap before bed - iron /ferritin levels - Good job on ativan wean! - Follow up in 3-6 months with me, debbyay to be virtual Ban Lynn APRN.[employer] AMBASS[employer]OR Interval history : Stands on her feet all day, 5-8 hours per days. Reports knees and hips are so bad she can barely stand after that. Had tylenol rebound a few years ago. Hx of torn meniscus on the right knee. Reports some eye issues, needs new prescription, causing some morning headaches perhaps Needs new physician, in person appointment. Here for follow up for LADAN and RLS SLEEP APNEA Sleep apnea type : LADAN, Most Recent Apnea-Hypopnea Index (AHI): ? Treatment : PAP therapy DME: [employer] PAP History: Uses AutoPAP for 6 hours per night, 7 nights per week. Current PAP settin/8 cm H2O. Difficulties with AutoPAP: None Reviewed objective PAP compliance data: Mask type: full face mask Mask issues: leak into her eyes There is a perceived benefit by the patient: sleeps well with use RLS Current medications: -Medication: lyrica 150mg, one cap twice nightly -Timing: dinner and before bed -Side effects: none -Benefit: yes -Last dose:yesterday -Last filled: 09/17/2022 Status : improved IRLS SG Score:22 Scoring criteria are: Mild (score 1-10); Moderate (score 11-20); Severe (score 21-30); Very severe (score 31-40) Medication history: Gabapentin d/cd 2015 lack of efficacy Pramipexole d/cd 08/2015 lack of efficacy Ferritin Date Value Ref Range Status 07/04/2021 131.0 14.7 - 205.1 ng/mL Final 04/17/2016 73.9 18.0 - 300.0 ng/mL Final 01/12/2015 85.2 18.0 - 300.0 ng/mL Final Transferrin Saturation Date Value Ref Range Status 07/04/2021 24 15 - 57 % Final 04/17/2016 22 15 - 57 % Final 01/12/2015 11 11 - 46 % Final Hemoglobin Date Value Ref Range Status 07/04/2021 13.0 11.5 - 15.5 g/dL Final 10/31/2001 9.3 (A) 12.0 - 16.0 g/dL Final PATIENT-ENTERED QUESTIONNAIRE SLEEP SCORES Sleep Questions 10/14/2022 Reason for visit: Narcolepsy, Restless Legs Syndrome Average hours slept in 24 hours: 9 Average hours of CPAP per night: 6 Percent of nights CPAP used at least 4 hours: 85 Accidents or near accidents due to drowsy drivin [place] Sleepiness Scale 06/27/2021 02/09/2022 10/14/2022 Score 15 (present daytime sleepiness) 10 (No daytime sleepiness) 14 (present daytime sleepiness) PROMIS CAT Sleep Disturbance 06/27/2021 02/09/2022 10/14/2022 PROMIS Sleep Disturbance T-Score 59 (mild) 59 (mild) 50 (within normal limits) PROMIS Sleep Disturbance Percentile 18 % 18 % 50 % Insomnia Severity Index 02/09/2022 Score 10 Restless Leg Syndrome 12/28/2020 02/09/2022 10/14/2022 Score 11 25 22 PHQ-9 12/23/2020 02/09/2022 10/17/2022 Score 1 2 3 PROMIS Global Health - (T-Scores - the mean of general population = 50. Five points is a clinicallymeaningful difference.) 11/07/2020 02/09/2022 10/17/2022 Physical T-Score 50.8 44.9 39.8 Mental T-Score 38.8 50.8 53.3 PMH, PSH, SH: reviewed SLEEP RELATED ROS Review of Systems Respiratory: Negative for difficulty breathing. Musculoskeletal: Positive for arthralgias and uncomfortable leg sensations. Skin: Negative for rash. Neurological: Positive for headaches. ALLERGIES Allergen Reactions Asa [Salicylates] Vomiting Augmentin [Amoxicil* GI Upset Bacol [Other] Belladonna [Bellado* Intolerance GI upset Benazepril Cough Sep 2005 Butazolidin [Other] Carbidopa Darvocet-N 100 [Pro* Intolerance HEADACHE Guaifenesin-Sodium * Ibuprofen Rash Levaquin [Levofloxa* Other: See Comments Hallucinations anxiety numbness tingling Lopid [Gemfibrozil] Niacin Niaspan [Niacin (An* Penicillins Hives Provigil [Modafinil] Mental Status Change hallucinations Ramapril [Other] Sulfa (Sulfonamide * Tramadol Other: See Comments stroke like symptoms CURRENT MEDICATIONS: CPAP/BIPAP/OTHER Formal mask fitting to consider smaller FFM like dreamwear due to dry eyes and supplies for bipap 13/8cmH2O DME [facility] pregabalin (LYRICA) 150 mg capsule TAKE 1 CAPSULE BY MOUTH WITH SUPPER AND 1 CAP AT BEDTIME CPAP/BIPAP/OTHER Replacement auto bipap 13/8 with PS of 5cmH2O DME [facility] CPAP/BIPAP/OTHER Settings decrease to autobipap 13/8cmH2O DME [facility] BIPAP DME change for supplies. Pt has a Resmed Auto BiPAP IPAP max 18, EPAP min 6 CM H2O, PS 5 cmH2O. mask, filters, heated humidity & tubing, [employer] supplies. LADAN G47.33 pregabalin (LYRICA) 75 mg capsule Take 2 capsules PO with dinner and 1 capsule close to bedtime forRLS/neuropathy red yeast rice 600 mg tab ascorbic acid, vitamin C, (VITAMIN C) 500 mg tablet Take 500 mg by mouth daily at bedtime. ACCU-CHEK SMARTVIEW TEST STRIP test strip ACCU-CHEK FASTCLIX LANCET DRUM lancets (Patient not taking: Reported on 02/16/2022) nitroglycerin sublingual (NITROQUICK) 0.4 mg SL tablet Dissolve 0.4 mg under the tongue. MAGNESIUM ORAL Take 300 mg by mouth twice daily. some days takes three tablets metFORMIN (GLUCOPHAGE) 500 mg tablet Take 1 tablet by mouth three times daily. citalopram 40 mg tablet Take 1 tablet by mouth once daily. ranolazine ER (RANEXA) 500 mg 12 hr tablet Take 1,000 mg by mouth twice daily. PLAVIX 75 MG TAB Take one(1) tablet daily. PHYSICAL EXAMINATION: Vital Signs: Deferred due to virtual visit via Zoom. General appearance: NAD Mental status: awake and alert Constitutional: Well groomed Skin: Dry and intact Neuro: Speech fluent IMPRESSION: Ladan (obstructive sleep apnea) (primary encounter diagnosis) Left knee pain, unspecified chronicity Bilateral hip pain Dry eyes Elsa Pugh is a 67 year old female with a PMH of DM 2, HTN, HLD, chronic rhinitis, and obesity who presents via zoom for LADAN and RLS follow up. PSG completed at outside medical facility. -Ms. Pugh does well with pap therapy. She denies pressured intolerance, is compliant and benefits. She reports she feels better with use. She notes her FFM is leaking into her eyes and is causing dry eye. Will do formal mask refitting to consider smaller FFM. -RLS remains stable, IRLG SG score today is 22 down from 25 at last visit. She continues to tolerate lyrica well and denies side effects. She reports worsening hip and knee pain, she's seeing pcp next month and will discuss there. I think more of her discomfort is pain related as apposed to RLS. PLAN: - Continue Bilevel PAP at 13/8cmH2O. - Remember to clean your mask and equipment regularly, as directed. - You should be eligible for new supplies approximately every 3-6 months, depending on your insurance coverage. Contact your Durable Medical Equipment (DME) company for new supplies as needed. - Follow up in 3 months with sleep physician, former Dr. Concepcion patient. Ban Lynn APRN.JUANITA documented in this encounterMarietta [facility] Clinic12-28-2022 Miscellaneous Notes* Telephone Encounter - Shabana Ortiz APRN.CNP - 06/13/2022 8:33 AM EST PDMP website checked and validated. All prescriptions have been APPROPRIATELY filled. No suspiciousactivity was identified. 06/13/2022 by Shabana Ortiz APRN.JUANITA RF approved. * Telephone Encounter - Elizabeth Nguyen RN - 06/13/2022 8:06 AM EST Vinod 02/16/2022 in person MARTHA Fov Not Scheduled Follow up in 3-6 months IMPRESSION: Restless legs syndrome (rls) Polyneuropathy due to type 2 diabetes mellitus (hcc) Iron deficiency anemia, unspecified iron deficiency anemia type (primary encounter diagnosis) Ladan (obstructive sleep apnea) Elsa Pugh is a 66 year old female with a PMH of DM 2, HTN, HLD, chronic rhinitis, and obesity who presents in office for LADAN and RLS follow up. PSG completed at outside medical facility -IRLS SG score of 25 today. Ms. Pugh reports worsening symptoms, she was started on ozempic which may be contributing. Will recheck iron levels today. Increased lyrica to 150mg with dinner and before bed to see if this improves symptoms. -Ms. Pugh reports discomfort with autobipap use. She states pressures feel like too much. She's experiencing high mask leak which is also disturbing. Will drop pressures to 13/8cmH2O to see if pressure intolerance improves. She's not been able to use it more than a few hours -She has completely weaned ativan prior to bed. PLAN: - Continue Auto Bilevel PAP at 13/8cmH2O. - Remember to clean your mask and equipment regularly, as directed. - You should be eligible for new supplies approximately every 3-6 months, depending on your insurance coverage. Contact your Durable Medical Equipment (DME) company for new supplies as needed. - Increase lyrica to 150mg, 1 cap with dinner and 1 cap before bed - iron /ferritin levels - Good job on ativan wean! - Follow up in 3-6 months with meskyler to be virtual Ban Lynn APRN.CNP documented in this encounterMarietta Oste[facility] Clinic10-03-2022 Miscellaneous Notes* Telephone Encounter - aBn Lynn APRN.CNP - 03/19/2022 10:26 AM EDT PDMP website checked and validated. All prescriptions have been APPROPRIATELY filled. No suspiciousactivity was identified. 03/19/2022 by Ban Lynn APRN.[employer] AMBASSADOR * Telephone Encounter - Elizabeth Nguyen RN - 03/19/2022 9:05 AM EDT Vinod 02/16/2022 Fov Not Scheduled IMPRESSION: Restless legs syndrome (rls) Polyneuropathy due to type 2 diabetes mellitus (hcc) Iron deficiency anemia, unspecified iron deficiency anemia type (primary encounter diagnosis) Ladan (obstructive sleep apnea) Elsa Pugh is a 66 year old female with a PMH of DM 2, HTN, HLD, chronic rhinitis, and obesity who presents in office for LADAN and RLS follow up. PSG completed at outside medical facility -IRLS SG score of 25 today. Ms. Pugh reports worsening symptoms, she was started on ozempic which may be contributing. Will recheck iron levels today. Increased lyrica to 150mg with dinner and before bed to see if this improves symptoms. -Ms. Pugh reports discomfort with autobipap use. She states pressures feel like too much. She's experiencing high mask leak which is also disturbing. Will drop pressures to 13/8cmH2O to see if pressure intolerance improves. She's not been able to use it more than a few hours -She has completely weaned ativan prior to bed. PLAN: - Continue Auto Bilevel PAP at 13/8cmH2O. - Remember to clean your mask and equipment regularly, as directed. - You should be eligible for new supplies approximately every 3-6 months, depending on your insurance coverage. Contact your Durable Medical Equipment (DME) company for new supplies as needed. - Increase lyrica to 150mg, 1 cap with dinner and 1 cap before bed - iron /ferritin levels - Good job on ativan wean! - Follow up in 3-6 months with me, okay to be virtual Ban Lynn APRN.[employer] AMBASSADOR documented in this encounterMarietta [facility] Clinic09-12-2022 Miscellaneous Notes* Telephone Encounter - Trenton Quintero MA - 02/26/2022 1:10 PM EDT Pap therapy order has been sent to [facility] with a receipt of confirmation. documented in this encounterMarietta Osteopathic Clinic09-12-2022 Miscellaneous Notes* Telephone Encounter - Elizabeth Nguyen RN - 02/26/2022 11:56 AM EDT Order for new machine and VINOD faxed to [facility] Sravan [phone] with confirmation received [employer] message sent * Telephone Encounter - Ban Lynn APRN.CNP - 02/26/2022 11:17 AM EDT Replacement autobipap ordered Ban Lynn APRN.[employer] AMBASSADOR * Telephone Encounter - Elizabeth Nguyen RN - 02/26/2022 11:06 AM EDT Spoke with patient regarding her MC message. She said Medicare called her and told her she eligiblefor a new BiPAP machine since hers is over 5 years old and needs authorization sent to Medicare forapproval . Explained [facility] will do this after an order has been sent to them. Order pended and sent to provider. documented in this encounterMarietta Osteopathic Clinic09-11-2022 History of Present illness Narrative* Jhoana Dowell - 02/25/2022 5:07 PM EDT CMN RECEIVED BY [employer] VIA FAX, COMPLETED, AND PLACED IN PROVIDER MAILBOX FOR SIGNATURE Jonathan ZAMBRANO SENDING CMN: [facility] SIGNED AND DATED CMN, FAXED TO DME & CONFIRMATION PAGE RECEIVED: 02/26/22 documented in this encounterMarietta Osteopathic Clinic09-08-2022 Miscellaneous Notes* Telephone Encounter - Trenton Quintero MA - 02/22/2022 12:51 PM EDT OV note signed and a receipt of transmission has been printed. * Telephone Encounter - Ban Lynn APRN.CNP - 02/22/2022 11:10 AM EDT Can you send these, thanks * Telephone Encounter - Azalia Minor - 02/21/2022 4:14 PM EDT Raul from [facility] call requesting last OV notes 02/16/22 to process the order for the CPAP machine, fax #[phone] documented in this encounterMarietta Osteopathic Clinic09-02-2022 History of Present illness Narrative* Ban Lynn APRN.CNP - 02/16/2022 9:00 AM EDT Images from the original note were not included. [facility] Follow up/ Established patient visit Date of last visit :06/29/2021 Per last visit: IMPRESSION: Ladan treated with bilevel pap (primary encounter diagnosis) Restless legs syndrome (rls) Polyneuropathy due to type 2 diabetes mellitus (hcc) Iron deficiency anemia, unspecified iron deficiency anemia type 66 y/o female presents for f/u via virtual visit. LADAN - - She discontinued using her machine d/t pressure intolerance post weight loss (54 lbs). Adjusted the pressure during the appt via Airview to IPAP max 18, EPAP min 6, PS 5 cmH2O. Pt will reach out via if pressure intolerance continues. - She needs a new DME for supplies, current insurance does not acct [facility] dual coverage. She is goingto call her insurance to see what her options are. - Denies mask intolerance. RLS/Poluneuropathy - - Improved with pregabalin 150 mg at dinner and 75 mg at bedtime. She is happy with the current dose. - She has discontinued the iron supplement which the pt reports was requested by Dr. Concepcion. Will obtain current labs. Pt aware morning draw and fasting. PLAN: - Restart PAP therapy. Pressure change as above. Pt will reach out via if pressure intolerance continues despite pressure change. - Continue pregabalin 150 mg at dinner and 75 mg at HS. Provided refill. - Iron labs. Inform pt of results via . - F/U in 6 months, in person. Pt verbalized understanding. Jania Watts APRN.[employer] AMBASSADOR Interval history : Here for follow up for LADAN and RLS SLEEP APNEA Sleep apnea type : LADAN, Most Recent Apnea-Hypopnea Index (AHI): 17.6 Treatment : PAP therapy [facility] [place] [address] PAP History: Uses AutoPAP for 3-4 hours per night, 3-4 nights per week. Current PAP settin with OS of 5 cm H2O. Difficulties with AutoPAP: Yes: pressure intolerance Reviewed objective PAP compliance data: Mask type: full face mask Mask issues: air leak Observers report abolition of snoring with AutoPAP use. RLS Current treatment pregabalin 75mg, taken2 caps with dinner and 1 cap before bed Denies side effects -started ozempic, symptoms have been worse since Status : IRLS SG Score:25 Last iron infusion: none Ferritin Date Value Ref Range Status 07/04/2021 131.0 14.7 - 205.1 ng/mL Final 04/17/2016 73.9 18.0 - 300.0 ng/mL Final 01/12/2015 85.2 18.0 - 300.0 ng/mL Final Transferrin Saturation Date Value Ref Range Status 07/04/2021 24 15 - 57 % Final 04/17/2016 22 15 - 57 % Final 01/12/2015 11 11 - 46 % Final Hemoglobin Date Value Ref Range Status 07/04/2021 13.0 11.5 - 15.5 g/dL Final 10/31/2001 9.3 (A) 12.0 - 16.0 g/dL Final PATIENT-ENTERED QUESTIONNAIRE SLEEP SCORES Sleep Questions 02/09/2022 Reason for visit: Restless Legs Syndrome, Abnormal sleep/wake timing Average hours slept in 24 hours: 7 Average hours of CPAP per night: 3 Percent of nights CPAP used at least 4 hours: 0 Accidents or near accidents due to drowsy drivin [place] Sleepiness Scale 12/28/2020 06/27/2021 02/09/2022 Score 11 (present daytime sleepiness) 15 (present daytime sleepiness) 10 (No daytime sleepiness) PROMIS CAT Sleep Disturbance 12/28/2020 06/27/2021 02/09/2022 PROMIS Sleep Disturbance T-Score 49 (within normal limits) 59 (mild) 59 (mild) Insomnia Severity Index 02/09/2022 Score 10 Restless Leg Syndrome 12/23/2020 12/28/2020 02/09/2022 Score Incomplete 11 25 PHQ-9 11/07/2020 12/23/2020 02/09/2022 Score 8 1 2 PROMIS Global Health - (T-Scores - the mean of general population = 50. Five points is a clinicallymeaningful difference.) 07/11/2020 11/07/2020 02/09/2022 Physical T-Score 34.9 50.8 44.9 Mental T-Score 36.3 38.8 50.8 PMH, PSH, SH: reviewed SLEEP RELATED ROS Review of Systems Constitutional: Negative for recent unintentional weight change. HENT: Negative for congestion. Musculoskeletal: Positive for uncomfortable leg sensations. Skin: Negative for rash. ALLERGIES Allergen Reactions Asa [Salicylates] Vomiting Augmentin [Amoxicil* GI Upset Bacol [Other] Belladonna [Bellado* Intolerance GI upset Benazepril Cough Sep 2005 Butazolidin [Other] Carbidopa Darvocet-N 100 [Pro* Intolerance HEADACHE Guaifenesin-Sodium * Ibuprofen Rash Levaquin [Levofloxa* Other: See Comments Hallucinations anxiety numbness tingling Lopid [Gemfibrozil] Niacin Niaspan [Niacin (An* Penicillins Hives Provigil [Modafinil] Mental Status Change hallucinations Ramapril [Other] Sulfa (Sulfonamide * Tramadol Other: See Comments stroke like symptoms CURRENT MEDICATIONS: BIPAP DME change for supplies. Pt has a [employer] Auto BiPAP IPAP max 18, EPAP min 6 CM H2O, PS 5 cmH2O. mask, filters, heated humidity & tubing, [employer] supplies. LADAN G47.33 pregabalin (LYRICA) 75 mg capsule Take 2 capsules PO with dinner and 1 capsule close to bedtime forRLS/neuropathy albuterol HFA (PROVENTIL HFA, VENTOLIN HFA) 90 mcg/actuation inhaler Inhale 2 Puffs as instructed every 4 hours as needed for wheezing/shortness of breath. benzonatate (TESSALON PERLES) 100 mg capsule Take 1 capsule by mouth three times daily as needed for cough. red yeast rice 600 mg tab ferrous bis-glycinate chelate (IRON BISGLYCINATE CHELATE ORAL) Take 25 mg by mouth daily at bedtime. ascorbic acid, vitamin C, (VITAMIN C) 500 mg tablet Take 500 mg by mouth daily at bedtime. ACCU-CHEK SMARTVIEW TEST STRIP test strip ACCU-CHEK FASTCLIX LANCET DRUM lancets LORazepam (ATIVAN) 1 mg tablet Take 1 mg by mouth daily at bedtime. nitroglycerin sublingual (NITROSTAT) 0.4 mg SL tablet Dissolve 0.4 mg under the tongue. MAGNESIUM ORAL Take 300 mg by mouth twice daily. some days takes three tablets metFORMIN (GLUCOPHAGE) 500 mg tablet Take 1 tablet by mouth three times daily. citalopram 40 mg tablet Take 1 tablet by mouth once daily. ranolazine ER (RANEXA) 500 mg 12 hr tablet Take 1,000 mg by mouth twice daily. PLAVIX 75 MG TAB Take one(1) tablet daily. PHYSICAL EXAMINATION: Vital Signs: BP 133/67 Pulse (!) 53 Wt 89.1 kg (196 lb 6.4 oz) SpO2 99% BMI 31.70 kg/m General appearance: NAD Mental status: awake and alert Constitutional: Well groomed Skin: Dry and intact Neuro: Speech fluent IMPRESSION: Restless legs syndrome (rls) Polyneuropathy due to type 2 diabetes mellitus (hcc) Iron deficiency anemia, unspecified iron deficiency anemia type (primary encounter diagnosis) Ladan (obstructive sleep apnea) Elsa Pugh is a 66 year old female with a PMH of DM 2, HTN, HLD, chronic rhinitis, and obesity who presents in office for LADAN and RLS follow up. PSG completed at outside medical facility -IRLS SG score of 25 today. Ms. Pugh reports worsening symptoms, she was started on ozempic which may be contributing. Will recheck iron levels today. Increased lyrica to 150mg with dinner and before bed to see if this improves symptoms. -Ms. Pugh reports discomfort with autobipap use. She states pressures feel like too much. She's experiencing high mask leak which is also disturbing. Will drop pressures to 13/8cmH2O to see if pressure intolerance improves. She's not been able to use it more than a few hours -She has completely weaned ativan prior to bed. PLAN: - Continue Auto Bilevel PAP at 13/8cmH2O. - Remember to clean your mask and equipment regularly, as directed. - You should be eligible for new supplies approximately every 3-6 months, depending on your insurance coverage. Contact your Durable Medical Equipment (DME) company for new supplies as needed. - Increase lyrica to 150mg, 1 cap with dinner and 1 cap before bed - iron /ferritin levels - Good job on ativan wean! - Follow up in 3-6 months with me, okay to be virtual Ban Lynn APRN.JUANITA documented in this encounterMarietta [facility] Clinic08-31-2022 Miscellaneous Notes* Telephone Encounter - Trenton Quintero MA - 02/14/2022 4:02 PM EDT Images from the original note were not included. documented in this encounterMarietta Osteopathic Clinic08-31-2022 Miscellaneous Notes* Telephone Encounter - Trenton Quintero MA - 02/14/2022 10:20 AM EDT Images from the original note were not included. documented in this encounterMarietta Osteopathic Clinic07-29-2022 Miscellaneous Notes* Telephone Encounter - Nikki Gonzalez RN - 01/12/2022 10:29 AM EDT VINOD: 06/29/2021 (virtual), 2019 (in person, no longer with [facility]) F/U: 02/16/2022 (virtual - MC sent to pt advising of need for in person appt, offered to convert appt) IMPRESSION: Ladan treated with bilevel pap (primary encounter diagnosis) Restless legs syndrome (rls) Polyneuropathy due to type 2 diabetes mellitus (hcc) Iron deficiency anemia, unspecified iron deficiency anemia type 66 y/o female presents for f/u via virtual visit. LADAN - - She discontinued using her machine d/t pressure intolerance post weight loss (54 lbs). Adjusted the pressure during the appt via Airview to IPAP max 18, EPAP min 6, PS 5 cmH2O. Pt will reach out via if pressure intolerance continues. - She needs a new DME for supplies, current insurance does not acct [facility] dual coverage. She is goingto call her insurance to see what her options are. - Denies mask intolerance. RLS/Poluneuropathy - - Improved with pregabalin 150 mg at dinner and 75 mg at bedtime. She is happy with the current dose. - She has discontinued the iron supplement which the pt reports was requested by Dr. Concepcion. Will obtain current labs. Pt aware morning draw and fasting. PLAN: - Restart PAP therapy. Pressure change as above. Pt will reach out via MC if pressure intolerance continues despite pressure change. - Continue pregabalin 150 mg at dinner and 75 mg at HS. Provided refill. - Iron labs. Inform pt of results via MC. - F/U in 6 months, in person. Pt verbalized understanding. Jania Watts APRN.[employer] AMBASSADOR documented in this encounterMarietta Osteopathic Clinic12-22-2021 History of Present illness Narrative* About 5-6 days ago she started to have cough and wheezing. Negative on COVID and Influenza. She wasseen in urgent care. Per patient report she was provided inhaler, Percocet and steroid course. Unsure why Percocet was provided. With about treatment her symptoms minimally improved however appears that the symptoms are worsening now. * Still having headache, coughing with phlegm which is yellowish/green, and wheezing. Has been using inhaler as well. * Plan: * Starting antibiotics and ordering an x-ray, as symptoms are worsening. * Patient to continue to use inhaler. * Recommended to seek medical attention if worsening of symptoms. * Follow-up in a week. -[facility] Work Phone: [phone]) 336-364311-01-2021 History of Present illness Narrative* Anxiety and depression- lorazepam daily along with Celexa. Doing pretty well. Seems to be dealing with COVID-19 and issues better. Good and bad days. Better since she from . Relieved.After 48 years * Atherosclerosis of [place] coronary artery - Dr Osorio in April. Still gets chest pains at times. Nitro not needed No ER for 48 months * Benign hypertension - good on no meds. Still tired a lot but better. 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 * BMI 32. - down another 7 pounds. She is doing stretches and walking and on feet at work * Constipation - Better now. She has been on increased water. Walking more helps. Miralax daily daily. * Diabetes mellitus, type II - Not as good on diet and in mid 100s with occasional over 200. A1C is higher at 8.8 up from 8.5%. . She is on Metformin only. Invokana and glimepiride not tolerated. No low sugars. Feels she can get it down with diet. CMP OK this time except glucose of 280 Will consider R ybelsus. * Familial combined hyperlipidemia - on no meds due to achiness. Red Rice Yeast and magnesium . TG 381. . TC 233 in December * GERD and cough - tolerable heartburn at times. Much better since GB out. No meds except Rolaids a couple per week * Lymphedema - rarely needs Lasix lately. * Migraine - Sinemet aggravated. . But less lately. Cannot miss Plavix or will get a headache. 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 Can sleep anytime. Doing better in forcing herself to not sleep and seems to help. Has been to sleep medicine. * LADAN (obstructive sleep apnea) - CPAP every day. Averaging 6 hours. Has a new sleep med doctor at [facility] and dropped pressure. So tolerates better. * Peripheral neuropathy - diabetic - Diabetic socks help. She massages the toes a lot. Hands swollen in AM. She is on Lyrica 75 at 3 per day. And tingling in toes is variable with that and the RLS below. No SE. The humidity or cold does make this worse. * Restless leg syndrome - Sinemet was stopped as above. 5 AM acts up. CBD helps on knees, elbows and hands. Weather aggravates it. Lyrica helps and she is cutting that back to 3 per day. Was at 450 perday * Retinopathy due to DM with exam about 12 months ago so will check soon * CSA 12/16/20 * UDS 06/08/19- UDS as expected for medication profile; 10/06/20 as expected for medication profile * Mammogram 01/05/21 * Colonoscopy 07/29/19 * I have personally reviewed the patients OARRS report. This report is filed in the EHR. I have considered the risks of abuse, addiction and diversion. I believe it is clinically appropriate to continue to prescribe this medication. -[facility] Work Phone: 1(463) 959-760608-15-2021 History of Present illness Narrative* 6 days ago * Fell going down steps, slipped on carpet and slid down 4 steps. * Hit head on wall. No LOC or wooziness. * Some headache for awhile. No DV, or ataxia * Right ankle got twisted in and then right knee bent back * Not able to bear weight on the ankle. * Has history of torn meniscus and felt like she reinjured that. * To ER and had CT of brain which showed no abnormalities. * Knee and ankle Xray showed no fracture but some effusion in the knee. * Now with brace on the knee she is able to walk * Pain in knee * Ankle is doing pretty well * Swelling is less * Some bruising of ankle * And now a swelling behind left knee that is painful * Still some swelling of knee and pain on the inside -[facility] Work Phone: 1(657) 329-806507-29-2015 History of Past illness Narrative* Problem Noted Date Resolved Date Iron deficiency concern 01/12/2015 03/12/20 18 Unspecified sleep apnea 02/08/2006 04/03/20 14 Unspecified essential hypertension 04/03/2014 Hypoglycemia, unspecified 2014 Hemorrhage of rectum and anus Diarrhea 03/15/2015 documented as of this encounter (statuses as of 01/15/2022) [address]29-2015 History of Past illness Narrative* Problem Noted Date Resolved Date Iron deficiency concern 01/12/2015 03/12/20 18 Unspecified sleep apnea 02/08/2006 04/03/20 14 Unspecified essential hypertension 04/03/2014 Hypoglycemia, unspecified 2014 Hemorrhage of rectum and anus Diarrhea 03/15/2015 documented as of this encounter (statuses as of 02/14/2022) [address]29-2015 History of Past illness Narrative* Problem Noted Date Resolved Date Iron deficiency concern 01/12/2015 03/12/20 18 Unspecified sleep apnea 02/08/2006 04/03/20 14 Unspecified essential hypertension 04/03/2014 Hypoglycemia, unspecified 2014 Hemorrhage of rectum and anus Diarrhea 03/15/2015 documented as of this encounter (statuses as of 02/16/2022) [address]29-2015 History of Past illness Narrative* Problem Noted Date Resolved Date Iron deficiency concern 01/12/2015 03/12/20 18 Unspecified sleep apnea 02/08/2006 04/03/20 14 Unspecified essential hypertension 04/03/2014 Hypoglycemia, unspecified 2014 Hemorrhage of rectum and anus Diarrhea 03/15/2015 documented as of this encounter (statuses as of 02/22/2022) [address]29-2015 History of Past illness Narrative* Problem Noted Date Resolved Date Iron deficiency concern 01/12/2015 03/12/20 18 Unspecified sleep apnea 02/08/2006 04/03/20 14 Unspecified essential hypertension 04/03/2014 Hypoglycemia, unspecified 2014 Hemorrhage of rectum and anus Diarrhea 03/15/2015 documented as of this encounter (statuses as of 02/26/2022) [address]29-2015 History of Past illness Narrative* Problem Noted Date Resolved Date Iron deficiency concern 01/12/2015 03/12/20 18 Unspecified sleep apnea 02/08/2006 04/03/20 14 Unspecified essential hypertension 04/03/2014 Hypoglycemia, unspecified 2014 Hemorrhage of rectum and anus Diarrhea 03/15/2015 documented as of this encounter (statuses as of 02/26/2022) [facility]07-29-2015 History of Past illness Narrative* Problem Noted Date Resolved Date Iron deficiency concern 01/12/2015 03/12/20 18 Unspecified sleep apnea 02/08/2006 04/03/20 14 Unspecified essential hypertension 04/03/2014 Hypoglycemia, unspecified 2014 Hemorrhage of rectum and anus Diarrhea 03/15/2015 documented as of this encounter (statuses as of 02/26/2022) [address]29-2015 History of Past illness Narrative* Problem Noted Date Resolved Date Iron deficiency concern 01/12/2015 03/12/20 18 Unspecified sleep apnea 02/08/2006 04/03/20 14 Unspecified essential hypertension 04/03/2014 Hypoglycemia, unspecified 2014 Hemorrhage of rectum and anus Diarrhea 03/15/2015 documented as of this encounter (statuses as of 03/19/2022) [address]29-2015 History of Past illness Narrative* Problem Noted Date Resolved Date Iron deficiency concern 01/12/2015 03/12/20 18 Unspecified sleep apnea 02/08/2006 04/03/20 14 Unspecified essential hypertension 04/03/2014 Hypoglycemia, unspecified 2014 Hemorrhage of rectum and anus Diarrhea 03/15/2015 documented as of this encounter (statuses as of 06/19/2022) [address]29-2015 History of Past illness Narrative* Problem Noted Date Resolved Date Iron deficiency concern 01/12/2015 03/12/20 18 Unspecified sleep apnea 02/08/2006 04/03/20 14 Unspecified essential hypertension 04/03/2014 Hypoglycemia, unspecified 2014 Hemorrhage of rectum and anus Diarrhea 03/15/2015 documented as of this encounter (statuses as of 10/17/2022) [address]29-2015 History of Past illness Narrative* Problem Noted Date Resolved Date Iron deficiency concern 01/12/2015 03/12/20 18 Unspecified sleep apnea 02/08/2006 04/03/20 14 Unspecified essential hypertension 04/03/2014 Hypoglycemia, unspecified 2014 Hemorrhage of rectum and anus Diarrhea 03/15/2015 documented as of this encounter (statuses as of 10/17/2022) [facility]07-29-2015 History of Past illness Narrative* Problem Noted Date Resolved Date Iron deficiency concern 01/12/2015 03/12/20 18 Unspecified sleep apnea 02/08/2006 04/03/20 14 Unspecified essential hypertension 04/03/2014 Hypoglycemia, unspecified 2014 Hemorrhage of rectum and anus Diarrhea 03/15/2015 documented as of this encounter (statuses as of 12/04/2022) [facility]07-29-2015 History of Past illness Narrative* Problem Noted Date Resolved Date Iron deficiency concern 01/12/2015 03/12/20 18 Unspecified sleep apnea 02/08/2006 04/03/20 14 Unspecified essential hypertension 04/03/2014 Hypoglycemia, unspecified 2014 Hemorrhage of rectum and anus Diarrhea 03/15/2015 documented as of this encounter (statuses as of 12/05/2022) [facility]07-29-2015 History of Past illness Narrative* Problem Noted Date Resolved Date Iron deficiency concern 01/12/2015 03/12/20 18 Unspecified sleep apnea 02/08/2006 04/03/20 14 Unspecified essential hypertension 04/03/2014 Hypoglycemia, unspecified 2014 Hemorrhage of rectum and anus Diarrhea 03/15/2015 documented as of this encounter (statuses as of 12/15/2022) [address]29-2015 History of Past illness Narrative* Problem Noted Date Resolved Date Iron deficiency concern 01/12/2015 03/12/20 18 Unspecified sleep apnea 02/08/2006 04/03/20 14 Unspecified essential hypertension 04/03/2014 Hypoglycemia, unspecified 2014 Hemorrhage of rectum and anus Diarrhea 03/15/2015 documented as of this encounter (statuses as of 12/21/2022) [address]29-2015 History of Past illness Narrative* Problem Noted Date Diagnosed Date Resolved Date Iron deficiency concern 01/12/201502/16 Unspecified sleep apnea 02/08/200603/17 Unspecified essential hypertension 04/03/2014 Hypoglycemia, unspecified Hemorrhage of rectum and anus 03/15/2015 Diarrhea 03/15/2015 documented as of this encounter (statuses as of 01/03/2023) [address]29-2015 History of Past illness Narrative* Problem Noted Date Diagnosed Date Resolved Date Iron deficiency concern 01/12/201502/16 Unspecified sleep apnea 02/08/200603/17 Unspecified essential hypertension 04/03/2014 Hypoglycemia, unspecified Hemorrhage of rectum and anus 03/15/2015 Diarrhea 03/15/2015 documented as of this encounter (statuses as of 01/10/2023) [address]29-2015 History of Past illness Narrative* Problem Noted Date Diagnosed Date Resolved Date Iron deficiency concern 01/12/201502/16 Unspecified sleep apnea 02/08/200603/17 Unspecified essential hypertension 04/03/2014 Hypoglycemia, unspecified Hemorrhage of rectum and anus 03/15/2015 Diarrhea 03/15/2015 documented as of this encounter (statuses as of 01/12/2023) [address]29-2015 History of Past illness Narrative* Problem Noted Date Diagnosed Date Resolved Date Iron deficiency concern 01/12/201502/16 Unspecified sleep apnea 02/08/200603/17 Unspecified essential hypertension 04/03/2014 Hypoglycemia, unspecified Hemorrhage of rectum and anus 03/15/2015 Diarrhea 03/15/2015 documented as of this encounter (statuses as of 01/15/2023) [address]29-2015 History of Past illness Narrative* Problem Noted Date Diagnosed Date Resolved Date Iron deficiency concern 01/12/201502/16 Unspecified sleep apnea 02/08/200603/17 Unspecified essential hypertension 04/03/2014 Hypoglycemia, unspecified Hemorrhage of rectum and anus 03/15/2015 Diarrhea 03/15/2015 documented as of this encounter (statuses as of 01/16/2023) [address]29-2015 History of Past illness Narrative* Problem Noted Date Diagnosed Date Resolved Date Iron deficiency concern 01/12/201502/16 Unspecified sleep apnea 02/08/200603/17 Unspecified essential hypertension 04/03/2014 Hypoglycemia, unspecified Hemorrhage of rectum and anus 03/15/2015 Diarrhea 03/15/2015 documented as of this encounter (statuses as of 01/18/2023) [address]29-2015 History of Past illness Narrative* Problem Noted Date Diagnosed Date Resolved Date Iron deficiency concern 01/12/201502/16 Unspecified sleep apnea 02/08/200603/17 Unspecified essential hypertension 04/03/2014 Hypoglycemia, unspecified Hemorrhage of rectum and anus 03/15/2015 Diarrhea 03/15/2015 documented as of this encounter (statuses as of 01/18/2023) [address]29-2015 History of Past illness Narrative* Problem Noted Date Diagnosed Date Resolved Date Iron deficiency concern 01/12/201502/16 Unspecified sleep apnea 02/08/200603/17 Unspecified essential hypertension 04/03/2014 Hypoglycemia, unspecified Hemorrhage of rectum and anus 03/15/2015 Diarrhea 03/15/2015 documented as of this encounter (statuses as of 01/22/2023) [address]29-2015 History of Past illness Narrative* Problem Noted Date Diagnosed Date Resolved Date Iron deficiency concern 01/12/201502/16 Unspecified sleep apnea 02/08/200603/17 Unspecified essential hypertension 04/03/2014 Hypoglycemia, unspecified Hemorrhage of rectum and anus 03/15/2015 Diarrhea 03/15/2015 documented as of this encounter (statuses as of 01/22/2023) [address]29-2015 History of Past illness Narrative* Problem Noted Date Diagnosed Date Resolved Date Iron deficiency concern 01/12/201502/16 Unspecified sleep apnea 02/08/200603/17 Unspecified essential hypertension 04/03/2014 Hypoglycemia, unspecified Hemorrhage of rectum and anus 03/15/2015 Diarrhea 03/15/2015 documented as of this encounter (statuses as of 01/24/2023) [address]29-2015 History of Past illness Narrative* Problem Noted Date Diagnosed Date Resolved Date Iron deficiency concern 01/12/201502/16 Unspecified sleep apnea 02/08/200603/17 Unspecified essential hypertension 04/03/2014 Hypoglycemia, unspecified Hemorrhage of rectum and anus 03/15/2015 Diarrhea 03/15/2015 documented as of this encounter (statuses as of 01/30/2023) [address]29-2015 History of Past illness Narrative* Problem Noted Date Diagnosed Date Resolved Date Iron deficiency concern 01/12/201502/16 Unspecified sleep apnea 02/08/200603/17 Unspecified essential hypertension 04/03/2014 Hypoglycemia, unspecified Hemorrhage of rectum and anus 03/15/2015 Diarrhea 03/15/2015 documented as of this encounter (statuses as of 02/13/2023) [address]29-2015 History of Past illness Narrative* Problem Noted Date Diagnosed Date Resolved Date Iron deficiency concern 01/12/201502/16 Unspecified sleep apnea 02/08/200603/17 Unspecified essential hypertension 04/03/2014 Hypoglycemia, unspecified Hemorrhage of rectum and anus 03/15/2015 Diarrhea 03/15/2015 documented as of this encounter (statuses as of 02/13/2023) [address]29-2015 History of Past illness Narrative* Problem Noted Date Diagnosed Date Resolved Date Iron deficiency concern 01/12/201502/16 Unspecified sleep apnea 02/08/200603/17 Unspecified essential hypertension 04/03/2014 Hypoglycemia, unspecified Hemorrhage of rectum and anus 03/15/2015 Diarrhea 03/15/2015 documented as of this encounter (statuses as of 02/13/2023) [address]29-2015 History of Past illness Narrative* Problem Noted Date Diagnosed Date Resolved Date Iron deficiency concern 01/12/201502/16 Unspecified sleep apnea 02/08/200603/17 Unspecified essential hypertension 04/03/2014 Hypoglycemia, unspecified Hemorrhage of rectum and anus 03/15/2015 Diarrhea 03/15/2015 documented as of this encounter (statuses as of 02/20/2023) [address]29-2015 History of Past illness Narrative* Problem Noted Date Diagnosed Date Resolved Date Iron deficiency concern 01/12/201502/16 Unspecified sleep apnea 02/08/200603/17 Unspecified essential hypertension 04/03/2014 Hypoglycemia, unspecified Hemorrhage of rectum and anus 03/15/2015 Diarrhea 03/15/2015 documented as of this encounter (statuses as of 02/21/2023) [address]29-2015 History of Past illness Narrative* Problem Noted Date Diagnosed Date Resolved Date Iron deficiency concern 01/12/201502/16 Unspecified sleep apnea 02/08/200603/17 Unspecified essential hypertension 04/03/2014 Hypoglycemia, unspecified Hemorrhage of rectum and anus 03/15/2015 Diarrhea 03/15/2015 documented as of this encounter (statuses as of 04/04/2023) [address]29-2015 History of Past illness Narrative* Problem Noted Date Diagnosed Date Resolved Date Iron deficiency concern 01/12/201502/16 Unspecified sleep apnea 02/08/200603/17 Unspecified essential hypertension 04/03/2014 Hypoglycemia, unspecified Hemorrhage of rectum and anus 03/15/2015 Diarrhea 03/15/2015 documented as of this encounter (statuses as of 04/04/2023) [address]29-2015 History of Past illness Narrative* Problem Noted Date Diagnosed Date Resolved Date Iron deficiency concern 01/12/201502/16 Unspecified sleep apnea 02/08/200603/17 Unspecified essential hypertension 04/03/2014 Hypoglycemia, unspecified Hemorrhage of rectum and anus 03/15/2015 Diarrhea 03/15/2015 documented as of this encounter (statuses as of 04/10/2023) [address]29-2015 History of Past illness Narrative* Problem Noted Date Diagnosed Date Resolved Date Iron deficiency concern 01/12/201502/16 Unspecified sleep apnea 02/08/200603/17 Unspecified essential hypertension 04/03/2014 Hypoglycemia, unspecified Hemorrhage of rectum and anus 03/15/2015 Diarrhea 03/15/2015 documented as of this encounter (statuses as of 04/10/2023) [address]29-2015 History of Past illness Narrative* Problem Noted Date Diagnosed Date Resolved Date Iron deficiency concern 01/12/201502/16 Unspecified sleep apnea 02/08/200603/17 Unspecified essential hypertension 04/03/2014 Hypoglycemia, unspecified Hemorrhage of rectum and anus 03/15/2015 Diarrhea 03/15/2015 documented as of this encounter (statuses as of 04/17/2023) [address]29-2015 History of Past illness Narrative* Problem Noted Date Diagnosed Date Resolved Date Iron deficiency concern 01/12/201502/16 Unspecified sleep apnea 02/08/200603/17 Unspecified essential hypertension 04/03/2014 Hypoglycemia, unspecified Hemorrhage of rectum and anus 03/15/2015 Diarrhea 03/15/2015 documented as of this encounter (statuses as of 04/21/2023) [address]29-2015 History of Past illness Narrative* Problem Noted Date Diagnosed Date Resolved Date Iron deficiency concern 01/12/201502/16 Unspecified sleep apnea 02/08/200603/17 Unspecified essential hypertension 04/03/2014 Hypoglycemia, unspecified Hemorrhage of rectum and anus 03/15/2015 Diarrhea 03/15/2015 documented as of this encounter (statuses as of 04/21/2023) [address]29-2015 History of Past illness Narrative* Problem Noted Date Diagnosed Date Resolved Date Iron deficiency concern 01/12/201502/16 Unspecified sleep apnea 02/08/200603/17 Unspecified essential hypertension 04/03/2014 Hypoglycemia, unspecified Hemorrhage of rectum and anus 03/15/2015 Diarrhea 03/15/2015 documented as of this encounter (statuses as of 04/21/2023) [address]29-2015 History of Past illness Narrative* Problem Noted Date Diagnosed Date Resolved Date Iron deficiency concern 01/12/201502/16 Unspecified sleep apnea 02/08/200603/17 Unspecified essential hypertension 04/03/2014 Hypoglycemia, unspecified Hemorrhage of rectum and anus 03/15/2015 Diarrhea 03/15/2015 documented as of this encounter (statuses as of 05/03/2023) [address]29-2015 History of Past illness Narrative* Problem Noted Date Diagnosed Date Resolved Date Iron deficiency concern 01/12/201502/16 Unspecified sleep apnea 02/08/200603/17 Unspecified essential hypertension 04/03/2014 Hypoglycemia, unspecified Hemorrhage of rectum and anus 03/15/2015 Diarrhea 03/15/2015 documented as of this encounter (statuses as of 05/08/2023) [address]29-2015 History of Past illness Narrative* Problem Noted Date Diagnosed Date Resolved Date Iron deficiency concern 01/12/201502/16 Unspecified sleep apnea 02/08/200603/17 Unspecified essential hypertension 04/03/2014 Hypoglycemia, unspecified Hemorrhage of rectum and anus 03/15/2015 Diarrhea 03/15/2015 documented as of this encounter (statuses as of 05/17/2023) [address]29-2015 History of Past illness Narrative* Problem Noted Date Diagnosed Date Resolved Date Iron deficiency concern 01/12/201502/16 Unspecified sleep apnea 02/08/200603/17 Unspecified essential hypertension 04/03/2014 Hypoglycemia, unspecified Hemorrhage of rectum and anus 03/15/2015 Diarrhea 03/15/2015 documented as of this encounter (statuses as of 05/29/2023) [address]29-2015 History of Past illness Narrative* Problem Noted Date Diagnosed Date Resolved Date Iron deficiency concern 01/12/201502/16 Unspecified sleep apnea 02/08/200603/17 Unspecified essential hypertension 04/03/2014 Hypoglycemia, unspecified Hemorrhage of rectum and anus 03/15/2015 Diarrhea 03/15/2015 documented as of this encounter (statuses as of 08/01/2023) [address]29-2015 History of Past illness Narrative* Problem Noted Date Diagnosed Date Resolved Date Iron deficiency concern 01/12/201502/16 Unspecified sleep apnea 02/08/200603/17 Unspecified essential hypertension 04/03/2014 Hypoglycemia, unspecified Hemorrhage of rectum and anus 03/15/2015 Diarrhea 03/15/2015 documented as of this encounter (statuses as of 08/05/2023) [address]29-2015 History of Past illness Narrative* Problem Noted Date Diagnosed Date Resolved Date Iron deficiency concern 01/12/201502/16 Unspecified sleep apnea 02/08/200603/17 Unspecified essential hypertension 04/03/2014 Hypoglycemia, unspecified Hemorrhage of rectum and anus 03/15/2015 Diarrhea 03/15/2015 documented as of this encounter (statuses as of 08/15/2023) [address]29-2015 History of Past illness Narrative* Problem Noted Date Diagnosed Date Resolved Date Iron deficiency concern 01/12/201502/16 Unspecified sleep apnea 02/08/200603/17 Unspecified essential hypertension 04/03/2014 Hypoglycemia, unspecified Hemorrhage of rectum and anus 03/15/2015 Diarrhea 03/15/2015 documented as of this encounter (statuses as of 08/16/2023) [address]29-2015 History of Past illness Narrative* Problem Noted Date Diagnosed Date Resolved Date Iron deficiency concern 01/12/201502/16 Unspecified sleep apnea 02/08/200603/17 Unspecified essential hypertension 04/03/2014 Hypoglycemia, unspecified Hemorrhage of rectum and anus 03/15/2015 Diarrhea 03/15/2015 documented as of this encounter (statuses as of 08/17/2023) [address]29-2015 History of Past illness Narrative* Problem Noted Date Diagnosed Date Resolved Date Iron deficiency concern 01/12/201502/16 Unspecified sleep apnea 02/08/200603/17 Unspecified essential hypertension 04/03/2014 Hypoglycemia, unspecified Hemorrhage of rectum and anus 03/15/2015 Diarrhea 03/15/2015 documented as of this encounter (statuses as of 08/19/2023) [facility]07-29-2015 History of Past illness Narrative* Problem Noted Date Diagnosed Date Resolved Date Iron deficiency concern 01/12/201502/16 Unspecified sleep apnea 02/08/200603/17 Unspecified essential hypertension 04/03/2014 Hypoglycemia, unspecified Hemorrhage of rectum and anus 03/15/2015 Diarrhea 03/15/2015 documented as of this encounter (statuses as of 08/19/2023) [facility]07-29-2015 History of Past illness Narrative* Problem Noted Date Diagnosed Date Resolved Date Iron deficiency concern 01/12/201502/16 Unspecified sleep apnea 02/08/200603/17 Unspecified essential hypertension 04/03/2014 Hypoglycemia, unspecified Hemorrhage of rectum and anus 03/15/2015 Diarrhea 03/15/2015 documented as of this encounter (statuses as of 08/19/2023) [facility]07-29-2015 History of Past illness Narrative* Problem Noted Date Diagnosed Date Resolved Date Iron deficiency concern 01/12/201502/16 Unspecified sleep apnea 02/08/200603/17 Unspecified essential hypertension 04/03/2014 Hypoglycemia, unspecified Hemorrhage of rectum and anus 03/15/2015 Diarrhea 03/15/2015 documented as of this encounter (statuses as of 08/21/2023) [facility]07-29-2015 History of Past illness Narrative* Problem Noted Date Diagnosed Date Resolved Date Iron deficiency concern 01/12/201502/16 Unspecified sleep apnea 02/08/200603/17 Unspecified essential hypertension 04/03/2014 Hypoglycemia, unspecified Hemorrhage of rectum and anus 03/15/2015 Diarrhea 03/15/2015 documented as of this encounter (statuses as of 09/09/2023) [facility]05-01-2002 Evaluation note* Diagnosis Onset Date Resolution Status Epigastric pain acute Atherosclerotic heart diseas e of [place] coronary artery without angina pectoris chronic Essential hypertension chron ic H/O coronary artery bypass surgery Oct, 2001 chronic History of coronary artery stent placement August 29, 2017 chronic Hyperlipidemia chronic Obesity chronic Type 2 diabetes mellitus [facility] Work Phone: 1(642) 191-229405-01-2002 Evaluation note* Diagnosis Onset Date Resolution Status Epigastric pain acute Atherosclerotic heart diseas e of [place] coronary artery without angina pectoris chronic Essential hypertension chron ic H/O coronary artery bypass surgery Oct, 2001 chronic History of coronary artery stent placement August 29, 2017 chronic Hyperlipidemia chronic Obesity chronic Type 2 diabetes mellitus chr onic Epigastric pain acute [facility] Work Phone: 1(731) 321-824305-01-2002 Evaluation note* Diagnosis Onset Date Resolution Status Epigastric pain acute Atherosclerotic heart diseas e of [place] coronary artery without angina pectoris chronic Essential hypertension chron ic H/O coronary artery bypass surgery Oct, 2001 chronic History of coronary artery stent placement August 29, 2017 chronic Hyperlipidemia chronic Obesity chronic Type 2 diabetes mellitus chr onic Epigastric pain acute Type [address] 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 chronic Essential hypertension chron ic H/O coronary artery bypass surgery Oct, 2001 chronic History of coronary artery stent placement August 29, 2017 chronic Hyperlipidemia chronic Obesity chronic Type 2 diabetes mellitus [facility] Work Phone: Consult note Author Larry Osorio [facility] May 18, 2023 11:15am Note Date/Time May 18, 2023 1 1:10am [facility] Medical Records Department [address] [place] [id number] Consultation - Cardiology 05/18/23 1105 MR#: [id number] Acct: [id number] Name: ELSA PUGH Rep #:[id number] : 1955 68 From: Larry Osorio MD PCP: Dr. Redd Linda MD Status :REG ER Location: ED Assessment & Plan Assessment/Plan (1) Chest pain: PLAN: She presents with chest discomfort at this time. This appears to be atypical. I did review the cardiac catheterization report and at this time I donot think that there is any reason to repeat the cardiac catheterization. We can maximize medical therapy. I will recommend that we increase the isosorbide to 60 mg once a day, continue Ranexa, continue beta-alexandra and follow-up in theoffice. Of communicated this to the patient, the ER physician, and her . (2) Hypertension: PLAN: Blood pressure appears to be elevated at this time I would recommend that we increase the losartan to 50 mg twice a day. (3) History of coronary artery disease: PLAN: She does have a history of known coronary artery disease as noted above. The plan number to continue the current medical therapy as stated above. Thank you for allowing me to participate in the care of your patient. Please don't hesitate to call if any issues arise. HPI Consult Data Date of Consult: 05/18/23 HPI Narrative HPI Narrative: ELSA PUGH, is a 68 F who presents to the emergency room with chest discomfort. She had presented to the hospital 2 weeks ago with chest discomfortand a non-ST elevation myocardial infarction. She underwent a cardiac catheterization which demonstrated high-grade stenosis of a saphenous vein graftto the right coronary artery, and a YATES to the LAD which was patent with some ostial disease and diffuse disease noted of the [place] left coronary artery system. She was transferred to [facility] where she underwent angioplasty and stenting of the saphenous vein graft to the right coronary artery. She was discharged on medication changes and presents today with chest discomfort to theemergency room again. Her troponin was noted to be 36 and there were plans to admit her. I asked him to repeat her troponin and it was 31. I think that thisis coming down from her previous elevated troponin of over 200. Her blood pressure was also noted to be elevated. She is currently not having any significant chest discomfort and her EKG demonstrates evolving T wave inversionsin the anterior leads. Her last cardiac catheterization was reviewed. [facility] Medical History Acute kidney failure Alcohol use Ambulates with cane Anemia Anxiety and depression Arthritis Atherosclerosis of coronary artery 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 Atherosclerotic heart disease of [place] coronary artery without angina pectoris Back pain Blackout Cardiology follow-up encounter Chest pain Concussion COVID CPAP (continuous positive airway pressure) dependence Diabetes Difficulty chewing Difficulty swallowing Epigastric pain Essential hypertension Former smoker Gastric reflux GERD (gastroesophageal reflux disease) Headache Hiatal hernia High cholesterol History of diverticulitis History of echocardiogram History of heart attack History of irregular heartbeat History of stress test Hyperhomocystinemia Hyperlipidemia Imbalance Injury of back Injury of head and neck Iron deficiency anemia Lymphedema Migraine headache Narcolepsy Obesity Obstructive sleep apnea Peripheral neuropathy Post-menopausal Proliferative diabetic retinopathy Restless legs Restless legs syndrome (RLS) Rheumatoid arthritis Shortness of breath on exertion Sleep apnea Type 2 diabetes mellitus Wears glasses Home Medications ascorbate calcium (vitamin C) 500 mg tablet 500 mg PO DAILY 10/26/21 [History Last Taken 05/17/23] red yeast rice 600 mg capsule 600 mg PO DAILY 10/26/21 [History Last Taken 05/17/23] pregabalin 150 mg capsule 150 mg PO BID 02/27/22 [History Last Taken 05/17/23] cholecalciferol (vitamin D3) 25 mcg (1,000 unit) capsule 25 mcg PO DAILY 06/04/22 [History Last Taken 05/17/23] isosorbide mononitrate 30 mg tablet,extended release 24 hr 30 mg PO DAILY #30 tabs 06/25/22 [Rx Last Taken 05/17/23] ranolazine 1,000 mg tablet,extended release,12 hr 1,000 mg PO BID #180 tabs 06/25/22 [Rx Last Taken 05/17/23] nitroglycerin 0.4 mg sublingual tablet 0.4 mg sublingual Q5-15M PRN chest pain #25 tabs 10/15/22 [Rx Last Taken Unknown] metformin 500 mg tablet 1,000 mg PO BID 01/21/23 [History Last Taken 05/17/23] ezetimibe 10 mg tablet 10 mg PO DAILY 03/11/23 [History Last Taken 05/17/23] losartan 25 mg tablet 50 mg PO DAILY 03/11/23 [History Last Taken 05/17/23] albuterol sulfate 90 mcg/actuation aerosol inhaler 1 puff inhalation Q6H PRN shortness of breath or wheezing 04/27/23 [History Last Taken Unknown] semaglutide 1 mg/dose (4 mg/3 mL) subcutaneous pen injector (Ozempic) 1 mg subcut QWEEK 04/27/23 [History Last Taken 05/16/23] aspirin 81 mg tablet,delayed release (Adult Aspirin Regimen) 81 mg PO DAILY 05/18/23 [History Last Taken 05/17/23] citalopram 40 mg tablet 20 mg PO DAILY 05/18/23 [History Last Taken 05/17/23] fenofibrate nanocrystallized 145 mg tablet 145 mg PO DAILY 05/18/23 [History Last Taken 05/17/23] isosorbide mononitrate 60 mg tablet,extended release 24 hr 60 mg PO DAILY #30 tabs 05/18/23 [Rx Last Taken Unknown] losartan 50 mg tablet 50 mg PO BID #60 tabs 05/18/23 [Rx Last Taken Unknown] metoprolol succinate 25 mg tablet,extended release 24 hr 25 mg PO DAILY 05/18/23[History Last Taken 05/17/23] pantoprazole 40 mg tablet,delayed release 40 mg PO DAILY 05/18/23 [History Last Taken 05/17/23] ticagrelor 90 mg tablet (Brilinta) 90 mg PO Q12H 05/18/23 [History Last Taken 05/17/23] Allergy/AdvReac Type Severity Reaction Status Date / Time aspirin Allergy Rash Verified 05/18/23 07:18 banana Allergy Hives Verified 05/18/23 07:18 canagliflozin [From Invokana] Allergy Anaphylaxis Verified 05/18/23 07:18 kiwi Allergy Hives Verified 05/18/23 07:18 niacin Allergy Rash Verified 05/18/23 07:18 Penicillins [PCN] Allergy Hives Verified 05/18/23 07:18 Sulfa (Sulfonamide Allergy Hives Verified 05/18/23 07:18 Antibiotics) erythromycin base AdvReac Other Verified 05/18/23 07:18 [From Staticin] ethyl alcohol [From Staticin] AdvReac Other Verified 05/18/23 07:18 gemfibrozil [From Lopid] AdvReac Other Verified 05/18/23 07:18 ibuprofen AdvReac Upset Verified 05/18/23 07:18 Stomach levofloxacin [From Levaquin] AdvReac Upset Verified 05/18/23 07:18 Stomach lisinopril AdvReac cough Verified 05/18/23 07:18 propoxyphene AdvReac Upset Verified 05/18/23 07:18 [From Darvocet-N] Stomach spironolactone AdvReac hyperkalemi Verified 05/18/23 07:18 a Gkqxhpg-GHY-CoX Reductase AdvReac unknown Verified 05/18/23 07:18 Inhibitor [Ezznxad-Gcc-Uhh Reductase Inhibitor] tramadol AdvReac Other Verified 05/18/23 07:18 Family History Mother Heart disease Father Heart disease Diabetes Surgical History H/O coronary artery bypass surgery (10/2001) History of cataract surgery History of cholecystectomy History of colonoscopy with polypectomy History of coronary artery stent placement (08/29/17) History of hysterectomy History of left heart catheterization History of tonsillectomy Social History household members: spouse Smoking Status: Former smoker how long ago did patient quit smokin alcohol intake: current alcohol intake frequency: holidays/special occasions only Alcohol type: beer substance use type: does not use what type of physical activity do you participate in: walking frequency: 5-6 times per week ROS Constitutional Constitutional: Denies fever(s) or weight loss Eyes Eyes: Reports systems reviewed and no addt'l complaints, except as documented ENT HEENT: Reports systems reviewed and no addt'l complaints, except as documented Cardiovascular Cardiovascular: Denies chest pain at rest, chest pain with activity, dyspnea at rest, dyspnea on exertion, edema, palpitations or paroxysmal nocturnal dyspnea Respiratory/Chest Respiratory/Chest: Denies dyspnea on exertion, productive cough, shortness of breath at rest or shortness of breath with exertion Gastrointestinal Gastrointestinal: Denies change in bowel habits, nausea, vomiting or weight changes Genitourinary Genitourinary: Denies difficulty urinating Musculoskeletal Musculoskeletal: Denies joint stiffness or muscle weakness Integumentary Integumentary: Denies lesions Neurologic Neurologic: Denies dizziness or syncope Psychiatric Psychiatric: Denies anxiety Endocrine Endocrinology: Denies excessive sweating or fatigue Hematologic/Lymphatic Hematologic/Lymphatic: Denies anemia Allergic/Immunologic Allergic/Immunologic: Denies seasonal rhinorrhea Physical Exam Const alert, oriented x3 and no apparent distress General Appearance: cooperative HEENT hearing grossly normal bilaterally Head and Scalp: atraumatic Eyes EOMs intact bilaterally Neck General: normal visual inspection Chest inspection of chest normal and palpation of chest normal Resp normal respiratory effort Auscultation: clear to auscultation bilaterally Cardio regular rate, regular rhythm, S1 normal heart sound and S2 normal heart sound Jugular Venous Distention: JVD GI normal to inspection, nondistended, normoactive bowel sounds Extremity normal capillary refill and no pedal edema Peripheral Pulses: Yes pulses 2+ throughout and femoral pulses present Skin no rashes or lesions noted Neuro oriented x3 and CN's II-XII intact bilaterally Psych Appearance: grossly normal and appropriate Risk Stratification Risk Stratification Applicable: Yes Age >/= 65: Yes >/= 3 CAD Risk Factors (HTN, HLD, DM, family hx of CAD, or current smoker): Yes Aspirin Use in the Past 7 Days: Yes Severe Angina (>/= episodes in 24 hours): No EKG ST Changes >/= 0.5mm: No Positive Cardiac Marker: No DARSHAN Risk Stratification Score: 3 DARSHAN % Risk: 13% Risk Objective Data Vital Signs: Vital Signs Temp Pulse Resp BP Pulse Ox O2 Del Method 97.6 F L 49 L 14 114/49 L 99 Nasal Cannula 05/18/23 07:18 05/18/23 09:01 05/18/23 07:18 05/18/23 09:01 05/18/23 07:18 05/18/23 07:30 Oxygen Delivery Method Nasal Cannula Weight: 202 lb 2.622 oz Body Mass Index (BMI) 33.6 Lab / Micro Data 05/18/23 07:30 05/18/23 07:30 Labs: Laboratory Results - last 24 hr 05/18/23 07:30: WBC 9.8, RBC 4.30, Hgb 12.5, Hct 38.6, MCV 89.8, MCH 29.1, MCHC 32.4, RDW Std Deviation 43.8, RDW Coeff of Nancy 13.5, Plt Count 308, MPV 10.8, Immature Gran % (Auto) 0.800, Neut % (Auto) 66.4, Lymph % (Auto) 21.1, Tyrrell % (Auto) 9.4, Eos % (Auto) 1.9, Baso % (Auto) 0.4, Absolute Neuts (auto) 6.5, Absolute Lymphs (auto) 2.06, Nucleated RBC % 0, Sodium 137, Potassium 4.2, Chloride 105, Carbon Dioxide 29.0, Anion Gap 3 L, BUN 14, Creatinine 0.93, EstimCreat Clear Calc 51.37, Est GFR (MDRD) Af Amer 77, Est GFR (MDRD) Non-Af 64, BUN/Creatinine Ratio 15.1, Glucose 172 H, Calcium 9.2, Troponin I High Sens 36 05/18/23 10:10: Troponin I High Sens 31 Micro: Microbiology 05/18/23 07:40 Nasal Secretion SARS-CoV-2 & FLU Antigen (Rapid) - Final Cardiology Labs/Tests 05/18/23 07:30: WBC 9.8, RBC 4.30, Hgb 12.5, Hct 38.6, MCV 89.8, MCH 29.1, MCHC 32.4, Plt Count 308, MPV 10.8, Immature Gran % (Auto) 0.800, Neut % (Auto) 66.4,Lymph % (Auto) 21.1, Tyrrell % (Auto) 9.4, Eos % (Auto) 1.9, Baso % (Auto) 0.4, Absolute Neuts (auto) 6.5, Nucleated RBC % 0, Sodium 137, Potassium 4.2, Chloride 105, Carbon Dioxide 29.0, Anion Gap 3 L, BUN 14, Creatinine 0.93, Est GFR (MDRD) Af Amer 77, Est GFR (MDRD) Non-Af 64, BUN/Creatinine Ratio 15.1, Glucose 172 H, Calcium 9.2 Rhythm: EKG: ECHO: Stress Test: Cardiac Cath: PCI: CT Surgery: Holter monitor: EPS: PPM: CXR: Chest CT Scan: Radiography Diagnostic Testing: Radiology Impression Chest X-Ray 05/18/23 07:30 IMPRESSION: No significant interval change. Previous median sternotomy and CABG. No radiographic evidence of acute cardiopulmonary disease. Electronically Signed: Uvaldo Franco MD at 7:56 EST , 05/18/23 1113 <Electronically signed by Larry Osorio MD> Cosigner Signature (if applicable): CC: Dr. Redd Linda MD~ Signed [facility] Work Phone: Discharge summary Author Helio Yuen [facility] June 27, 2023 5:31pm Note Date/Time June 27, 2023 5 :27pm [facility] Medical Records Department [address] [place] [address] Instructions for Home/Discharge Instructions 06/27/23 1726 MR#: [id number] Acct: [id number] Name: ELSA PUGH Rep #:[id number] : 1955 68 From: Helio Cordero martin DO PCP: Dr. Redd Linda MD Status :ADM IN Discharge Instructions Diet Discharge Diet: No restrictions Activity Discharge Activity: No Restrictions Return to work on:: 07/01/23 Weight Bearing Status: Full weight bearing Follow Up Care Please Follow Up With: Redd Linda MD When: As needed Test Results: Test results from this visit will be discussed in further detail at your follow- up appointment, if applicable. Pending Tests Upon Discharge: None Discharge Plan Admission Admit Date/Time: 06/26/23 00:58 Primary Reason for Your Visit: Nausea/vomiting, anemia Attending Provider: Helio Yuen Primary Care Provider: Redd Linda Consulting Providers: Alpa Cooney Instructions Additional Instructions / Restrictions: Please take Protonix twice daily going forward as noted below. Please stop taking Ozempic. Take all other medications as previous. Follow-up with your primary care doctor in the next 1 to 2 weeks and have a repeat CBC drawn at thatappointment. Discharge Orders/Prescriptions Prescriptions: Continued red yeast rice 600 mg capsule 600 mg PO DAILY Rx Instructions: give with meal/snack ascorbate calcium (vitamin C) 500 mg tablet 500 mg PO DAILY pregabalin 150 mg capsule 150 mg PO BID Patient Comments: TAKE 1 CAPSULE BY MOUTH TWICE DAILY FOR 30 DAYS (TAKE ONE CAPSULE AT DINNER AND ONE CAPSULE BEFORE BED) ranolazine 1,000 mg tablet extended release 12 hr 1,000 mg PO BID Qty: 180 3RF cholecalciferol (vitamin D3) 25 mcg (1,000 unit) capsule 25 mcg PO DAILY isosorbide mononitrate 60 mg tablet extended release 24 hr 60 mg PO DAILY Qty: 30 6RF isosorbide mononitrate 30 mg tablet extended release 24 hr 30 mg PO DAILY Qty: 30 11RF Rx Instructions: Adding to her 60mg isosorbide to equal 90mg daily (DME) Handicap Winstonard See Rx Instructions .Route .MEDSUPPLY Qty: 1 0RF Rx Instructions: As directed Expires 06/05/2028 metformin 500 mg tablet 1,000 mg PO BID albuterol sulfate 90 mcg/actuation HFA aerosol inhaler 1 puff INHALATION Q6H PRN (Reason: shortness of breath or wheezing) metoprolol succinate 25 mg tablet extended release 24 hr 25 mg PO DAILY aspirin [Adult Aspirin Regimen] 81 mg tablet,delayed release (DR/EC) 81 mg PO DAILY fenofibrate nanocrystallized 145 mg tablet 145 mg PO DAILY citalopram 40 mg tablet 20 mg PO DAILY losartan 50 mg tablet 50 mg PO BID Qty: 60 0RF nitroglycerin 0.4 mg tablet, sublingual 0.4 mg sublingual Q5-15M PRN (Reason: chest pain) Qty: 25 3RF Rx Instructions: do not exceed 3 doses per episode ezetimibe 10 mg tablet 10 mg PO DAILY Changed clopidogrel 75 mg tablet 75 mg PO .COMPLEX Qty: 90 3RF Rx Instructions: Take 1 tablet by mouth daily pantoprazole 40 mg tablet,delayed release (DR/EC) 40 mg PO BID 30 Days Qty: 60 0RF Discontinued Ozempic 1 mg/dose (4 mg/3 mL) pen injector 1 mg SUBCUT QWEEK Referrals / Follow Up: Redd Linda MD [Primary Care Provider] - Disposition Disposition (needs filled in before D/C Order can be placed): Home, Self Care 06/27/231730<Electronically signed by Helio Yuen DO>Helio Yuen DO CC: Dr. Redd Linda MD; Dr. Alpa Cooney MD ~ Signed [facility] Work Phone: Discharge summary Author Helio Yuen [facility] June 27, 2023 6:03pm Note Date/Time June 27, 2023 5 :31pm [facility] Medical Records Department [address] [place] [address] Discharge Summary 06/27/231730 MR#: [id number] Acct: [id number] Name: ELSA PUGH #[id number] : 1955 68 From: Helio little DO PCP: Dr. Redd Linda MD Status :ADM IN Location: [facility] [id number] Providers Date of Admission: 06/26/23 Date of Discharge: 06/27/23 Primary Care Physician: Dr. Redd Linda MD Consultations 06/26/23 17:10 Consult: Gastroenterology Routine Consulting Provider: [facility] Reason for Consult: Concern for upper GI bleed EMERGENT Consult: No MD Notified: Yes Date Notified: 06/27/23 Time Notified: 07:27 Method of Notification: Text Reason For Visit: UTI, CA Diagnosis Discharge Diagnosis (1) Nausea and vomiting: Status: Acute Code(s): R11.2 - Nausea with vomiting, unspecified (2) Urinary tract infection: Status: Acute Code(s): N39.0 - Urinary tract infection, site not specified Medications at Discharge Home Medications ascorbate calcium (vitamin C) 500 mg tablet 500 mg PO DAILY 10/26/21 red yeast rice 600 mg capsule 600 mg PO DAILY 10/26/21 pregabalin 150 mg capsule 150 mg PO BID 02/27/22 cholecalciferol (vitamin D3) 25 mcg (1,000 unit) capsule 25 mcg PO DAILY 06/04/22 ranolazine 1,000 mg tablet,extended release,12 hr 1,000 mg PO BID #180 tabs 06/25/22 nitroglycerin 0.4 mg sublingual tablet 0.4 mg sublingual Q5-15M PRN chest pain #25 tabs 10/15/22 metformin 500 mg tablet 1,000 mg PO BID 01/21/23 ezetimibe 10 mg tablet 10 mg PO DAILY 03/11/23 albuterol sulfate 90 mcg/actuation aerosol inhaler 1 puff inhalation Q6H PRN shortness of breath or wheezing 04/27/23 aspirin 81 mg tablet,delayed release (Adult Aspirin Regimen) 81 mg PO DAILY 05/18/23 citalopram 40 mg tablet 20 mg PO DAILY 05/18/23 fenofibrate nanocrystallized 145 mg tablet 145 mg PO DAILY 05/18/23 losartan 50 mg tablet 50 mg PO BID #60 tabs 05/18/23 metoprolol succinate 25 mg tablet,extended release 24 hr 25 mg PO DAILY 05/18/23 Handicap Placard #1 ea 06/05/23 isosorbide mononitrate 30 mg tablet,extended release 24 hr 30 mg PO DAILY #30 tabs 06/05/23 isosorbide mononitrate 60 mg tablet,extended release 24 hr 60 mg PO DAILY #30 tabs 06/05/23 clopidogrel 75 mg tablet 75 mg PO .COMPLEX #90 tabs 06/27/23 pantoprazole 40 mg tablet,delayed release 40 mg PO BID 30 days #60 tabs 06/27/23 Hospital Course Operations None Procedures EGD and - (CT abdomen pelvis without contrast) Summary of Care Provided Minutes Spent on Discharge: 35 Hospital Course: Patient is a 68-year-old female who presented to [facility] ED on 06/25/2023 with nausea/vomiting and melena. Short hospital course as noted below. Stable for discharge home on 06/27. 1. Nausea and vomiting, improved Unclear etiology. May have been secondary to possible UTI as noted below versesside effect of her Ozempic. Appeared dry on exam on admit, labs appeared hemoconcentrated. Improved with IV fluids in the ED. No further episodes of nausea or vomiting during the admission. CT abdomen pelvis with oral contrast only showed moderate to abundant fecal debris within the colon, no signs of bowel obstruction, no other abnormalities. ? Patient much improved after IV fluid resuscitation. Will hold home Ozempic ondischarge, can consider discussing with outpatient physician on restarting as needed. 2. Acute on chronic anemia, reported melena with concern for upper GI bleed Patient reported some dark stools at home over the week prior to admission. Hemoglobin 11.0 on admit, down trended to 9.7 with IV fluids. Baseline hemoglobin 11-12. Stool occult blood negative in ED. ? Gastroenterology followed. S/p EGD on 06/27 that showed nonbleeding gastric ulcer, otherwise normal. Hemoglobin stable around 10 on discharge. Okay to resume home aspirin and Plavix on discharge. Will increase home PPI to twice daily going forward. Recommend repeat CBC in 5 to 7 days to ensure continued stability of hemoglobin. 3. CA, improving Creatinine 2.02, BUN 32 on admit. Baseline creatinine 0.7-0.9. Presumed prerenal in setting of GI losses and poor p.o. intake. ? Creatinine 1.12 on 06/27, much improved after IV fluids. Good urine output during admission. Recommend repeat BMP in 5 to 7 days to ensure that creatininehas returned to baseline. 4. Concern for UTI ? UA on admit showed 100 leukocyte esterase, positive nitrates, 1+ bacteria. Urine culture with no growth. Treated with ceftriaxone while inpatient, discontinued antibiotics on discharge. Chronic medical conditions: ? Type 2 diabetes mellitus: Sliding scale insulin while inpatient. Restarted home metformin, held home Ozempic as noted above on discharge. ? Hypertension, hyperlipidemia: Held home losartan during admission given CA, okay to resume on discharge. Continue home Zetia. ? Depression: Continue home citalopram. ? CAD s/p CABG: Continue home Imdur and Zetia. Resumed aspirin and Plavix on discharge. ? History of cholecystectomy Total clinical time spent by myself addressing the patient's medical issues, reviewing all the data, and collaborating with patient's care team: 35 minutes. Physical Exam Const alert, oriented x3 and no apparent distress Constitutional Narrative: Pleasant elderly female, obese, sitting comfortably at edge of bed, conversing normally, no acute distress. General Appearance: cooperative and comfortable HEENT normocephalic, head/scalp atraumatic, hearing grossly normal bilaterally, nasal mucous membranes and turbinates normal and moist oral mucous membranes Eyes PERRL, EOMs intact bilaterally and conjunctivae normal Neck full ROM, no lymphadenopathy and supple Lymph Lymphatic: no lymphadenopathy noted Chest inspection of chest normal Resp normal respiratory effort, normal air movement, no use of accessory muscles and clear to auscultation bilaterally Cardio regular rate, regular rhythm, no murmurs and peripheral pulses 2+ throughout GI normal to inspection, nondistended, normoactive bowel sounds, soft to palpation,non-tender and non-distended Back/Spine normal ROM Extremity normal to inspection, full ROM and no pedal edema Skin no rashes or lesions noted Neuro no focal motor deficits and no sensory deficits noted Speech: speech normal Psych mental status grossly normal Weight / BMI Weight Weight: 86.545 kg Body Mass Index (BMI) 30.8 ABG / Lab / Microbiology Data 06/27/23 07:42 06/27/23 07:42 Laboratory: Laboratory Results - last 24 hr 06/26/23 21:41: POC Glucose 119 H 06/27/23 06:36: POC Glucose 123 H 06/27/23 07:42: WBC 5.6, RBC 3.49 L, Hgb 10.3 L, Hct 31.0 L, MCV 88.8, MCH 29.5,MCHC 33.2, RDW Std Deviation 45.6 H, RDW Coeff of Nancy 14.2, Plt Count 214, MPV 11.6, Sodium 138, Potassium 4.8, Chloride 108 H, Carbon Dioxide 26.0, Anion Gap 4 L, BUN 16, Creatinine 1.12 H, Estim Creat Clear Calc 52.54, Est GFR (MDRD) Af Amer 62, Est GFR (MDRD) Non-Af 51 L, BUN/Creatinine Ratio 14.3, Glucose 115 H, Calcium 8.8 06/27/23 11:23: POC Glucose 101 06/27/23 13:42: Troponin I High Sens 8 06/27/23 15:40: Troponin I High Sens 8 Microbiology: Microbiology 06/25/23 23:20 Stool Stool Occult Blood (LARISSA) - Final D/C Instructions Discharge Diet: No restrictions Return to work on: 07/01/23 Weight Bearing Status: Full weight bearing Pending Tests Upon Discharge: None Please Follow Up With: Redd Linda MD When: As needed Meaningful Use Info Meaningful Use Diagnoses (Choose all that apply): None applicable Discharge Plan Admission Admit Date/Time: 06/26/23 00:58 Primary Reason for Your Visit: Nausea/vomiting, anemia Attending Provider: Helio Yuen Primary Care Provider: Redd Linda Consulting Providers: Alpa Cooney Instructions Additional Instructions / Restrictions: Please take Protonix twice daily going forward as noted below. Please stop taking Ozempic. Take all other medications as previous. Follow-up with your primary care doctor in the next 1 to 2 weeks and have a repeat CBC drawn at thatappointment. Discharge Orders/Prescriptions Prescriptions: Continued red yeast rice 600 mg capsule 600 mg PO DAILY Rx Instructions: give with meal/snack ascorbate calcium (vitamin C) 500 mg tablet 500 mg PO DAILY pregabalin 150 mg capsule 150 mg PO BID Patient Comments: TAKE 1 CAPSULE BY MOUTH TWICE DAILY FOR 30 DAYS (TAKE ONE CAPSULE AT DINNER AND ONE CAPSULE BEFORE BED) ranolazine 1,000 mg tablet extended release 12 hr 1,000 mg PO BID Qty: 180 3RF cholecalciferol (vitamin D3) 25 mcg (1,000 unit) capsule 25 mcg PO DAILY isosorbide mononitrate 60 mg tablet extended release 24 hr 60 mg PO DAILY Qty: 30 6RF isosorbide mononitrate 30 mg tablet extended release 24 hr 30 mg PO DAILY Qty: 30 11RF Rx Instructions: Adding to her 60mg isosorbide to equal 90mg daily (DME) Handicap Placard See Rx Instructions .Route .MEDSUPPLY Qty: 1 0RF Rx Instructions: As directed Expires 06/05/2028 metformin 500 mg tablet 1,000 mg PO BID albuterol sulfate 90 mcg/actuation HFA aerosol inhaler 1 puff INHALATION Q6H PRN (Reason: shortness of breath or wheezing) metoprolol succinate 25 mg tablet extended release 24 hr 25 mg PO DAILY aspirin [Adult Aspirin Regimen] 81 mg tablet,delayed release (DR/EC) 81 mg PO DAILY fenofibrate nanocrystallized 145 mg tablet 145 mg PO DAILY citalopram 40 mg tablet 20 mg PO DAILY losartan 50 mg tablet 50 mg PO BID Qty: 60 0RF nitroglycerin 0.4 mg tablet, sublingual 0.4 mg sublingual Q5-15M PRN (Reason: chest pain) Qty: 25 3RF Rx Instructions: do not exceed 3 doses per episode ezetimibe 10 mg tablet 10 mg PO DAILY Changed clopidogrel 75 mg tablet 75 mg PO .COMPLEX Qty: 90 3RF Rx Instructions: Take 1 tablet by mouth daily pantoprazole 40 mg tablet,delayed release (DR/EC) 40 mg PO BID 30 Days Qty: 60 0RF Discontinued Ozempic 1 mg/dose (4 mg/3 mL) pen injector 1 mg SUBCUT QWEEK Referrals / Follow Up: Redd Linda MD [Primary Care Provider] - Disposition Disposition (needs filled in before D/C Order can be placed): Home, Self Care Charges/Coding Visit Charges Inpatient E&M: 74848 Disch Hosp >30min 06/27/23 180 <Electronically signed by Helio Yuen DO> Cosigner Signature (if applicable): CC: Dr. Helio Yuen DO; Dr. Redd Linda MD~ Signed [facility] Work Phone: Evaluation noteNo assessment information available [facility] Work Phone: evaluation note* Diagnosis Restless legs syndrome (RLS) 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) [facility]* Diagnosis Restless legs syndrome (RLS)- Primary 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) Iron deficiency anemia, unspecified iron deficiency anemia type LADAN (obstructive sleep apnea) Obstructive sleep apnea (adult) (pediatric) [facility]* Diagnosis LADAN (obstructive sleep apnea)- Primary Obstructive sleep apnea (adult) (pediatric) [facility]* Diagnosis Onset Date Resolution Status Epigastric pain acute Type 2 diabetes mellitus chr onic Headache acute Carotid artery stenosis acut e Dizziness acute Epigastric pain acute Headache acute Imbalance acute Atherosclerosis of coronary artery 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 chronic Atherosclerotic heart diseas e of [place] coronary artery without angina pectoris chronic Essential hypertension chron ic Hyperhomocystinemia chronic Hyperlipidemia chronic Obesity chronic Type 2 diabetes mellitus chr onic Essential hypertension chron ic H/O coronary artery bypass surgery Oct, 2001 chronic History of coronary artery stent placement August 29, 2017 chronic Hyperlipidemia chronic [facility] Work Phone: evaluation note* Diagnosis Restless legs syndrome (RLS) 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) [facility]* Diagnosis Restless legs syndrome (RLS) 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) documented in this encounter [facility] note* Diagnosis Coronary artery disease involving autologous artery coronary bypass graft with angina pectoris with documented spasm (HCC) On potassium wasting diuretic therapy Essential hypertension Unspecified essential hypertension [facility]* Diagnosis Coronary artery disease involving [place] coronary artery of [place] heart without angina pectoris Essential hypertension Unspecified essential hypertension [facility]* Diagnosis LADAN (obstructive sleep apnea)- Primary Obstructive sleep apnea (adult) (pediatric) Left knee pain, unspecified chronicity Bilateral hip pain Pain in joint, pelvic region and thigh Dry eyes Tear film insufficiency, unspecified Restless legs syndrome (RLS) 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) [facility]* Diagnosis Onset Date Resolution Status Dyspnea acute Fatigue acute Atherosclerotic heart diseas e of [place] coronary artery without angina pectoris chronic Essential hypertension chron ic Hyperlipidemia chronic [facility] Work Phone: Evaluation note* Diagnosis Hip pain, left- Primary Pain in joint, pelvic region and thigh Chronic bilateral low back pain with left-sided sciatica Type 2 diabetes mellitus without retinopathy (HCC) Type II or unspecified type diabetes mellitus without mention of complication, not stated as uncontrolled Polyuria Coronary artery disease involving [place] heart without angina pectoris, unspecified vessel or lesion type Restless legs syndrome (RLS) LADAN treated with BiPAP Essential hypertension, benign Screening mammogram, encounter for [facility]* Diagnosis Hip pain, left- Primary Pain in joint, pelvic region and thigh Chronic bilateral low back pain with left-sided sciatica [facility] Diagnosis Chronic bilateral low back pain with left-sided sciatica- Primary Hip pain, left Pain in joint, pelvic region and thigh [facility] Diagnosis Chronic bilateral low back pain with left-sided sciatica- Primary Hip pain, left Pain in joint, pelvic region and thigh [facility] Diagnosis Restless legs syndrome (RLS) 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) [facility]* Diagnosis Acute bilateral low back pain with left-sided sciatica- Primary [facility] Diagnosis Chronic bilateral low back pain with left-sided sciatica- Primary Hip pain, left Pain in joint, pelvic region and thigh [facility]* Diagnosis Suspected COVID-19 virus infection- Primary [facility]* Diagnosis Fall in home, initial encounter- Primary Laceration of left earlobe, subsequent encounter Contusion of auricle of left ear, subsequent encounter Visit for suture removal Encounter for removal of sutures [facility]* Diagnosis RLS (restless legs syndrome)- Primary Restless legs syndrome (RLS) Obstructive sleep apnea Obstructive sleep apnea (adult) (pediatric) [facility]* Diagnosis Type 2 diabetes mellitus without retinopathy (HCC)- Primary Type II or unspecified type diabetes mellitus without mention of complication, not stated as uncontrolled Acute bilateral low back pain with left-sided sciatica Encounter for immunization Need for other specified prophylactic vaccination against single bacterial disease Polyneuropathy due to type 2 diabetes mellitus ([facility]) [facility]* Diagnosis Chronic bilateral low back pain without sciatica- Primary Degeneration of lumbar intervertebral disc Degeneration of lumbar or lumbosacral intervertebral disc Displacement of lumbar intervertebral disc without myelopathy Degeneration of lumbar or lumbosacral intervertebral disc Lumbar radiculopathy Thoracic or lumbosacral neuritis or radiculitis, unspecified 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) Obesity, Class I, BMI 30-34.9 Obesity, unspecified [facility]* Diagnosis Type 2 diabetes mellitus without retinopathy ([facility])- Primary Type II or unspecified type diabetes mellitus without mention of complication, not stated as uncontrolled Coronary artery disease of [place] artery of [place] heart with stable angina pectoris ([facility]) S/P CABG x 4 Postsurgical aortocoronary bypass status Essential hypertension Unspecified essential hypertension Mixed hyperlipidemia Asymptomatic postmenopausal status Statin intolerance Other drug allergy [facility]* Diagnosis Type 2 diabetes mellitus without retinopathy ([facility])- Primary Type II or unspecified type diabetes mellitus without mention of complication, not stated as uncontrolled [facility]* Diagnosis Acute bilateral low back pain with left-sided sciatica [facility]* Diagnosis Acute bilateral low back pain with left-sided sciatica [facility]* Diagnosis Asymptomatic postmenopausal status [facility]* Diagnosis Onset Date Resolution Status Dyspnea acute Atherosclerotic heart diseas e of [place] coronary artery without angina pectoris chronic Essential hypertension chron ic Hyperlipidemia [facility] Work Phone: Evaluation note* Diagnosis Onset Date Resolution Status Dyspnea acute Atherosclerotic heart diseas e of [place] coronary artery without angina pectoris chronic Essential hypertension chron ic Hyperlipidemia chronic Acute electrocardiogram changes acute Hypokalemia acute Non-ST elevation AR (NSTEMI) acute Atherosclerotic heart diseas e of [place] coronary artery without angina pectoris chronic Essential hypertension chron ic H/O coronary artery bypass surgery Oct, 2001 chronic History of coronary artery stent placement August 29, 2017 chronic Hyperlipidemia [facility] Work Phone: Evaluation note* Diagnosis NSTEMI (non-ST elevated myocardial infarction) ([facility]) (HCC)- Primary Acute myocardial infarction, subendocardial infarction, episode of care unspecified NSTEMI (non-ST elevated myocardial infarction) ([facility]) (HCC) Acute myocardial infarction, subendocardial infarction, episode of care unspecified Systolic murmur Undiagnosed cardiac murmurs Polyneuropathy due to type 2 diabetes mellitus ([facility]) (HCC) Systolic murmur Undiagnosed cardiac murmurs Type 2 diabetes mellitus without retinopathy ([facility]) ([facility]) Obesity, Class I, BMI 30-34.9 Hyperlipidemia Other and unspecified hyperlipidemia History of coronary artery bypass surgery Postsurgical aortocoronary bypass status Essential hypertension Unspecified essential hypertension NSTEMI (non-ST elevated myocardial infarction) ([facility]) ([facility]) Acute myocardial infarction, subendocardial infarction, episode of care unspecified [facility]* Diagnosis Restless legs syndrome (RLS) Polyneuropathy due to type 2 diabetes mellitus ([facility]) documented in this encounter [facility] note* Diagnosis Coronary artery disease involving [place] coronary artery of [place] heart without angina pectoris- Primary History of coronary artery bypass surgery Postsurgical aortocoronary bypass status Stented coronary artery Postsurgical percutaneous transluminal coronary angioplasty status Essential hypertension Unspecified essential hypertension Pure hypercholesterolemia Hospital discharge follow-up Other follow-up examination documented in this encounter [facility] note* Diagnosis NSTEMI (non-ST elevated myocardial infarction) ([facility])- Primary Acute myocardial infarction, subendocardial infarction, episode of care unspecified History of percutaneous coronary intervention Personal history of surgery to heart and great vessels, presenting hazards to [facility] Coronary artery disease of [place] artery of [place] heart with stable angina pectoris ([facility]) S/P CABG x 4 Postsurgical aortocoronary bypass status Essential hypertension Unspecified essential hypertension Mixed hyperlipidemia Statin intolerance Other drug allergy [facility]* Diagnosis Onset Date Resolution Status Dyspnea acute Non-ST elevation AR (NSTEMI) acute Acute electrocardiogram changes resolved Hypokalemia resolved [facility] Work Phone: Evaluation note* Diagnosis Nausea and vomiting, unspecified vomiting type- Primary Type 2 diabetes mellitus without retinopathy ([facility]) Type II or unspecified type diabetes mellitus without mention of complication, not stated as uncontrolled Acute cough Headache, unspecified headache type [facility]* Diagnosis Onset Date Resolution Status Dyspnea acute Non-ST elevation AR (NSTEMI) acute Acute electrocardiogram changes resolved Hypokalemia resolved Atherosclerosis of coronary artery acute Chest pain acute Dyspnea acute Acute kidney injury acute Nausea and vomiting acute Urinary tract infection acut e [facility] Work Phone: Evaluation note* Diagnosis Onset Date Resolution Status Non-ST elevation AR (NSTEMI) acute Acute electrocardiogram changes resolved Hypokalemia resolved Atherosclerosis of coronary artery acute Chest pain acute Dyspnea acute Acute kidney injury resolved Nausea and vomiting resolved Urinary tract infection reso lved [facility] Work Phone: Evaluation note* Diagnosis Nausea and vomiting, unspecified vomiting type- Primary Hypotension, unspecified hypotension type Bradycardia Other specified cardiac dysrhythmias CA (acute kidney injury) (HCC) Acute kidney failure, unspecified Anemia, unspecified type Gastric ulcer without hemorrhage or perforation, unspecified chronicity Essential tremor Essential and other specified forms of tremor [facility]* Diagnosis Restless legs syndrome (RLS) 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) [facility]* Diagnosis CA (acute kidney injury) (HCC) Acute kidney failure, unspecified [facility]* Diagnosis CA (acute kidney injury) (HCC)- Primary Acute kidney failure, unspecified [facility]* Diagnosis Obstructive sleep apnea- Primary Obstructive sleep apnea (adult) (pediatric) RLS (restless legs syndrome) Restless legs syndrome (RLS) Primary insomnia Persistent disorder of initiating or maintaining sleep [facility]* Diagnosis Onset Date Resolution Status Atherosclerosis of coronary artery acute Chest pain acute Dyspnea acute Acute kidney injury resolved Nausea and vomiting resolved Urinary tract infection reso lved Otitis externa acute Otitis media acute Atherosclerosis of coronary artery acute [facility] Work Phone: Evaluation note* Diagnosis Acute pain of right knee- Primary Swelling of joint, knee, right Effusion of lower leg joint Fall in home, initial encounter [facility]* Diagnosis Restless legs syndrome (RLS) 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) [facility]* Diagnosis Onset Date Resolution Status Acute kidney injury resolved Nausea and vomiting resolved Urinary tract infection reso lved Otitis externa acute Otitis media acute Atherosclerosis of coronary artery acute [facility] Work Phone: Evaluation note* Diagnosis Type 2 diabetes mellitus without retinopathy (HCC)- Primary Type II or unspecified type diabetes mellitus without mention of complication, not stated as uncontrolled Essential hypertension Unspecified essential hypertension Encounter for screening mammogram for breast cancer Stage 3a chronic kidney disease (HCC) 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) Coronary artery disease of [place] artery of [place] heart with stable angina pectoris (HCC) LADAN treated with BiPAP Mixed hyperlipidemia S/P CABG x 4 Postsurgical aortocoronary bypass status Gastroesophageal reflux disease without esophagitis Esophageal reflux [facility] Diagnosis Restless legs syndrome (RLS) 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) [facility] Diagnosis Normocytic anemia- Primary Anemia, unspecified [facility]* Diagnosis Normocytic anemia- Primary Anemia, unspecified [facility]* Diagnosis Type 2 diabetes mellitus without retinopathy (HCC) Type II or unspecified type diabetes mellitus without mention of complication, not stated as uncontrolled [facility]* Diagnosis Encounter for screening mammogram for breast cancer [facility]* Diagnosis LADAN (obstructive sleep apnea)- Primary Obstructive sleep apnea (adult) (pediatric) Restless legs syndrome (RLS) 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) [facility]* Diagnosis LADAN (obstructive sleep apnea)- Primary Obstructive sleep apnea (adult) (pediatric) Restless legs syndrome (RLS) 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) [facility]* Diagnosis Leukocytes in urine- Primary Other cells and casts in urine Urinary frequency Dysuria Chills Chills (without fever) Fever, unspecified fever cause [facility]* Diagnosis Vulvovaginal candidiasis- Primary Candidiasis of vulva and vagina [facility]* Diagnosis Itching- Primary Unspecified pruritic disorder [facility]* Diagnosis Acute pain of right knee Swelling of joint, knee, right Effusion of lower leg joint [facility]* Diagnosis Viral URI with cough Acute upper respiratory infections of unspecified site [facility]* Diagnosis Acute bilateral low back pain with left-sided sciatica [facility]* Diagnosis Hip pain, left Pain in joint, pelvic region and thigh [facility]* Diagnosis Vaginal itching- Primary Pruritus of genital organs [facility]* Diagnosis Vaginal itching- Primary Pruritus of genital organs [facility]* Diagnosis Suspected COVID-19 virus infection- Primary Productive cough Cough Viral bronchitis Acute bronchitis Viral bronchitis Acute bronchitis [facility]* Diagnosis Viral bronchitis Acute bronchitis [facility]* Diagnosis Type 2 diabetes mellitus without retinopathy (HCC)- Primary Type II or unspecified type diabetes mellitus without mention of complication, not stated as uncontrolled Essential hypertension Unspecified essential hypertension Mixed hyperlipidemia Encounter for immunization Need for other specified prophylactic vaccination against single bacterial disease Myopathy Myopathy, unspecified Coronary artery disease of [place] artery of [place] heart with stable angina pectoris (HCC) LADAN treated with BiPAP S/P CABG x 4 Postsurgical aortocoronary bypass status Statin intolerance Other drug allergy [facility]* Diagnosis Uncontrolled type 2 diabetes mellitus with hyperglycemia (HCC)- Primary [facility]* Diagnosis Pain of left heel- Primary Pain in limb [facility]* Diagnosis Pain and swelling of right knee- Primary Pain and swelling of right knee [facility]* Diagnosis Vaginal atrophy- Primary Postmenopausal atrophic vaginitis Vaginal itching Pruritus of genital organs [facility]* Diagnosis Pain and swelling of right knee [facility]* Diagnosis Mixed hyperlipidemia S/P CABG x 4 Postsurgical aortocoronary bypass status [facility]* Diagnosis Plantar fasciitis- Primary Plantar fascial fibromatosis Pain of left heel Pain in limb Xerosis cutis Other specified disease of sebaceous glands Diabetic polyneuropathy associated with type 2 diabetes mellitus (HCC) [facility]* Diagnosis Chronic bilateral low back pain without sciatica- Primary Degeneration of intervertebral disc of lumbar region with discogenic back pain and lower extremity pain Lumbar radiculopathy Thoracic or lumbosacral neuritis or radiculitis, unspecified [facility]* Diagnosis Uncontrolled type 2 diabetes mellitus with hyperglycemia ([facility]) [facility]* Diagnosis LADAN (obstructive sleep apnea)- Primary Obstructive sleep apnea (adult) (pediatric) RLS (restless legs syndrome) Restless legs syndrome (RLS) [facility]* Diagnosis Controlled type 2 diabetes mellitus without complication, without long-term current use of insulin (HCC)- Primary Mixed hyperlipidemia Essential hypertension Unspecified essential hypertension [facility] Diagnosis Viral illness- Primary Unspecified viral infection, in conditions classified elsewhere and of unspecified site [facility]* Diagnosis Lumbar radiculopathy- Primary Thoracic or lumbosacral neuritis or radiculitis, unspecified [facility]* Diagnosis Restless legs syndrome (RLS) 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) [facility] Diagnosis Restless legs syndrome (RLS) 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) [facility]* Diagnosis Myalgias- Primary RLS (restless legs syndrome) Restless legs syndrome (RLS) Chronic insomnia Insomnia, unspecified [facility] Diagnosis Mixed hyperlipidemia S/P CABG x 4 Postsurgical aortocoronary bypass status [facility]* Diagnosis Postconcussional syndrome Postconcussion syndrome Contusion of lower back, subsequent encounter Dizziness and giddiness [facility]* Diagnosis Arthritis pain- Primary Arthropathy, unspecified, site unspecified Positive SHUN (antinuclear antibody) Other and unspecified nonspecific immunological findings Spondylosis of lumbar region without myelopathy or radiculopathy Lumbosacral spondylosis without myelopathy Renal angiomyolipoma Benign neoplasm of kidney, except pelvis Trigger middle finger of right hand Trigger finger (acquired) Sicca syndrome (HCC) Sicca syndrome Counseling and coordination of care Other specified counseling [facility]* Diagnosis Dizziness- Primary Dizziness and giddiness Headache, unspecified headache type Visual changes Unspecified visual disturbance Gross hematuria Falls frequently Personal history of fall [facility]* Diagnosis Screening mammogram for breast cancer documented in this encounter [facility] note* Diagnosis Type 2 diabetes mellitus without retinopathy (HCC) Type II or unspecified type diabetes mellitus without mention of complication, not stated as uncontrolled documented in this encounter [facility] note* Diagnosis Dizziness- Primary Dizziness and giddiness Headache, unspecified headache type Visual changes Unspecified visual disturbance [facility]* Diagnosis Uncontrolled type 2 diabetes mellitus with hyperglycemia (HCC) Controlled type 2 diabetes mellitus without complication, without long-term current use of insulin ([facility]) SOB (shortness of breath) Shortness of breath documented in this encounter [facility] note* Diagnosis Falls frequently- Primary Personal history of fall documented in this encounter [facility] note* Diagnosis Dizziness Dizziness and giddiness Headache, unspecified headache type Visual changes Unspecified visual disturbance [facility]* Diagnosis Gross hematuria [facility]* Diagnosis Dizziness Dizziness and giddiness Headache, unspecified headache type Visual changes Unspecified visual disturbance Falls frequently Personal history of fall [facility]* Diagnosis Mixed hyperlipidemia S/P CABG x 4 Postsurgical aortocoronary bypass status documented [facility]* Diagnosis Dizziness Dizziness and giddiness Headache, unspecified headache type Visual changes Unspecified visual disturbance Abnormal MRA, brain Nonspecific (abnormal) findings on radiological and other examination of skull and head [facility]* Diagnosis Generalized anxiety disorder- Primary Panic disorder Panic disorder without agoraphobia documented [facility]* Diagnosis Stenosis of both vertebral arteries- Primary [facility]* Diagnosis Arthritis of both hands- Primary Trigger middle finger of right hand Trigger finger (acquired) Pain in both hands [facility] Anxiety and depression- lorazepam daily along with Celexa. Doing pretty well. Seems to be dealing with COVID-19 and issues better. Good and bad days. Better since she from . Lives with . * Atherosclerosis of [place] coronary artery - Dr Rao in May. Still gets chest pains at times. Nitro not needed No ER for 42 months * Benign hypertension - good on no meds. Still tired a lot but better. Sleeps all the time. Making herself stay awake . * Biliary sludge - had GB out and doing well. * BMI 34. - down another 6 pounds * Breast pain - in the rib and better. * Constipation - have been problems at times with hemorrhoids. She is having hard stools. She has been on increased water. Miralax daily daily and doing better but still has days * Diabetes mellitus, type II - Not as good on diet and in mid 100s with occasional over 200. .A1C is higher at 8.5 up from 7.7 which was down from 8.6%. . She is on Metformin only. Invokana and glimepiride not tolerated. No low sugars. She has not had Trulicity. Not ready to do that. Feels she can get it down with diet. CMP OK * Familial combined hyperlipidemia - on no meds due to achiness. Red Rice Yeast and magnesium . TG 378. TC 223. Encouraging walking. * GERD and cough - tolerable heartburn at times. Much better since GB out. No meds except Rolaids a couple per week * Hypokalemia - no longer on supplement unless she takes Lasix. Not needing those lately. Last was 4.0 * Lymphedema - rarely needs Lasix lately * Migraine - Sinemet aggravated. . But less lately. Cannot miss Plavix or will get a headache. * Narcolepsy still struggles with day time sleepiness but better. . Can sleep anytime. Doing better in forcing herself to not sleep and seems to help. Has been to sleep medicine. * LADAN (obstructive sleep apnea) - CPAP every day. Averaging 4 hours. Has a new sleep med doctor at [facility] and looking at new mask * Peripheral neuropathy - diabetic - got worse and now the same on no meds. Diabetic socks help. She massages the toes a lot. Hands swollen in AM. She is on Lyrica 75 at 3 per day. And tingling in toesis better with that and the RLS below. No SE. The humidity does make this worse. Pain is 2/9. ADLs unchanged * Restless leg syndrome - Sinemet was stopped as above. 5 AM acts up. CBD helps on knees, elbows and hands. Weather aggravates it. Lyrica helps and she is cutting that back * Retinopathy due to DM with exam about 9 months ago. OK * CSA 01/05/21 * UDS 06/08/19- UDS as expected for medication profile; 10/06/20 as expected for medication profile * Mammogram 10/28/19 * Colonoscopy 03/27/12 * I have personally reviewed the patients OARRS report. This report is filed in the EHR. I have considered the risks of abuse, addiction and diversion. I believe it is clinically appropriate to continue to prescribe this medication. -[facility] Work Phone: History of Present illness Narrative* The patient is being seen for the subsequent annual wellness visit. * Past Medical, Surgical and Family History: reviewed and updated in chart. * Medications and Supplements: Medications and supplements, including calcium and vitamins reviewed and updated in chart. * No, the patient is not using opioids. * Patient Self Assessment of Health Status: good. * Tobacco use: Non-User The patient is a former cigarette smoker and quit smoking 1997. She has smoked for 20 year(s) and has 25 pack year(s) of cigarette use. * Alcohol use: Non-User * Illicit drug use: Non-User * Current diet: Heart Healthy Diet, does not consume adequate fluids and does not consume caffeine. * Exercise Frequency: infrequently. * Depression/Suicide Screening: Patient has a current diagnosis of depression. * Hearing Impairment: none. * Cognitive Impairment: No cognitive impairment observed, patient or family reported cognitive impairment . * Due to narcolepsy - seems better lately. * Bathing: performs independently. * Dressing: performs independently. * Walking: performs independently. * Managing Finances: performs independently. * Shopping: performs independently. * Managing Medications: performs independently. * Housework / Basic Home Maintenance: performs independently. * Falls Risk Screening:. ELSA has fallen in the last 6 months. Her fall resulted in the following injury: abrasion and sprain knee. * Fall risk factors: mobility impairment. * Care Plan Low/Moderate Risk: Regular physical activity such as walking, water aerobics or rufina chi to improve strength, balance, coordination and flexibility. Wear appropriate, sensible shoe wear. Remove fall hazards at home such as loose rugs, obstacles, use non-slip surface in bath or shower. Keep living space well lit. (slipped on leaves) * Home safety risk factors: none. * Advance directives:. Patient has living will. Patient has healthcare POA. * Patient's End of Life Decisions: End of life decisions were reviewed with the patient. I agree to follow the patient's decisions. * Additional Information: pain 8. * Anxiety and depression- lorazepam daily along with Celexa. Doing pretty well. Seems to be dealing with COVID-19 and issues better. Good and bad days. Better since she from . Proceeding to divorce * Atherosclerosis of [place] coronary artery - Dr Osorio in April. Still gets chest pains at times. Nitro not needed No ER for 45 months * Benign hypertension - good on no meds. Still tired a lot but better. 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 * Biliary sludge - had GB out and doing well. * BMI 34. - down another 6 pounds. * Constipation - have been problems at times with hemorrhoids. She is having hard stools. She has been on increased water. Miralax daily daily and doing better but still has days * Diabetes mellitus, type II - Not as good on diet and in mid 100s with occasional over 200. .A1C is higher at 8.5 up from 7.7 which was down from 8.6%. . She is on Metformin only. Invokana and glimepiride not tolerated. No low sugars. She has not had Trulicity. Not ready to do that. Feels she can get it down with diet. CMP OK in December * Familial combined hyperlipidemia - on no meds due to achiness. Red Rice Yeast and magnesium . TG 378. TC 223. In December Walking. * GERD and cough - tolerable heartburn at times. Much better since GB out. No meds except Rolaids a couple per week * Hypokalemia - no longer on supplement unless she takes Lasix. Not needing those lately. Last was 4.0 * Lymphedema - rarely needs Lasix lately * Migraine - Sinemet aggravated. . But less lately. Cannot miss Plavix or will get a headache. 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 Can sleep anytime. Doing better in forcing herself to not sleep and seems to help. Has been to sleep medicine. Monitors iron level. * LADAN (obstructive sleep apnea) - CPAP every day. Averaging 4 hours. Has a new sleep med doctor at [facility] and looking at new mask. Feels she can drop pressure with autotitrating. * Peripheral neuropathy - diabetic - got worse and now the same on no meds. Diabetic socks help. She massages the toes a lot. Hands swollen in AM. She is on Lyrica 75 at 3 per day. And tingling in toesis variable with that and the RLS below. No SE. The humidity does make this worse. Pain is 2/9. ADLs unchanged * Restless leg syndrome - Sinemet was stopped as above. 5 AM acts up. CBD helps on knees, elbows and hands. Weather aggravates it. Lyrica helps and she is cutting that back to 3 per day. Was at 450 perday * Retinopathy due to DM with exam about 9 months ago. OK * Right knee pain since she fell a couple days ago. Slipped on wet leaves. Landed on right knee and has an abrasion. Wearing splint to feel better standing * CSA 01/05/21 * UDS 06/08/19- UDS as expected for medication profile; 10/06/20 as expected for medication profile * Mammogram 01/05/21 * Colonoscopy 03/27/12 * I have personally reviewed the patients OARRS report. This report is filed in the EHR. I have considered the risks of abuse, addiction and diversion. I believe it is clinically appropriate to continue to prescribe this medication. -[facility] Work Phone: Hospital Discharge instructions Additional Instructions Follow-up with Dr. Haile Nguyen as instructed by him. Dr. Osorio wanted you to start losartan 50 mg twice a day Also isosorbide mononitrate 60 mg every dayWThe [facility] Work Phone: Hospital Discharge instructions Additional Instructions Your cardiac workup negative. CT brain negative. Sacral x-ray negative. Suspect your viral cough symptoms leading to your right sided chest pains. Concussion from your head injury. Use Tylenol 1 g every 6 hours as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 Unknown Family Member Name Dates Details Family history of diabetes m ellitus: Father, Sister(V18.0, Z83.3) Status:Active Family history of myocardial infarction: Mother(V17.3, Z82.49) Status:Active Family history of cardiac di sorder: Mother, Grandparent(V17.49, Z82.49) Status:Active Family history of heart fail ure: Mother, Father(V17.49, Z82.49) Status:Active High serum cholesterol sulfa te: Mother, Father Status:Active Family history of hypertensi on: Mother, Father(V17.49, Z82.49) Status:Active Family history of hypothyroi dism: Mother(V18.19, Z83.49) Status:Active Irregular heartbeat: Mother Status:Active Family history of cerebrovas cular accident (CVA): Mother(V17.1, Z82.3) Status:Active Unknown Family Member Name Dates Details Family history of diabetes m ellitus: Father, Sister(V18.0, Z83.3) Status:Active Family history of myocardial infarction: Mother(V17.3, Z82.49) Status:Active Family history of cardiac di sorder: Mother, Grandparent(V17.49, Z82.49) Status:Active Family history of heart fail ure: Mother, Father(V17.49, Z82.49) Status:Active High serum cholesterol sulfa te: Mother, Father Status:Active Family history of hypertensi on: Mother, Father(V17.49, Z82.49) Status:Active Family history of hypothyroi dism: Mother(V18.19, Z83.49) Status:Active Irregular heartbeat: Mother Status:Active Family history of cerebrovas cular accident (CVA): Mother(V17.1, Z82.3) Status:Active Unknown Family Member Name Dates Details Family history of diabetes m ellitus: Father, Sister(V18.0, Z83.3) Status:Active Family history of myocardial infarction: Mother(V17.3, Z82.49) Status:Active Family history of cardiac di sorder: Mother, Grandparent(V17.49, Z82.49) Status:Active Family history of heart fail ure: Mother, Father(V17.49, Z82.49) Status:Active High serum cholesterol sulfa te: Mother, Father Status:Active Family history of hypertensi on: Mother, Father(V17.49, Z82.49) Status:Active Family history of hypothyroi dism: Mother(V18.19, Z83.49) Status:Active Irregular heartbeat: Mother Status:Active Family history of cerebrovas cular accident (CVA): Mother(V17.1, Z82.3) Status:Active Unknown Family Member Name Dates Details Family history of diabetes m ellitus: Father, Sister(V18.0, Z83.3) Status:Active Family history of myocardial infarction: Mother(V17.3, Z82.49) Status:Active Family history of cardiac di sorder: Mother, Grandparent(V17.49, Z82.49) Status:Active Family history of heart fail ure: Mother, Father(V17.49, Z82.49) Status:Active High serum cholesterol sulfa te: Mother, Father Status:Active Family history of hypertensi on: Mother, Father(V17.49, Z82.49) Status:Active Family history of hypothyroi dism: Mother(V18.19, Z83.49) Status:Active Irregular heartbeat: Mother Status:Active Family history of cerebrovas cular accident (CVA): Mother(V17.1, Z82.3) Status:Active Unknown Family Member Name Dates Details Family history of diabetes m ellitus: Father, Sister(V18.0, Z83.3) Status:Active Family history of myocardial infarction: Mother(V17.3, Z82.49) Status:Active Family history of cardiac di sorder: Mother, Grandparent(V17.49, Z82.49) Status:Active Family history of heart fail ure: Mother, Father(V17.49, Z82.49) Status:Active High serum cholesterol sulfa te: Mother, Father Status:Active Family history of hypertensi on: Mother, Father(V17.49, Z82.49) Status:Active Family history of hypothyroi dism: Mother(V18.19, Z83.49) Status:Active Irregular heartbeat: Mother Status:Active Family history of cerebrovas cular accident (CVA): Mother(V17.1, Z82.3) Status:Active Unknown Family Member Name Dates Details Family history of diabetes m ellitus: Father, Sister(V18.0, Z83.3) Status:Active Family history of myocardial infarction: Mother(V17.3, Z82.49) Status:Active Family history of cardiac di sorder: Mother, Grandparent(V17.49, Z82.49) Status:Active Family history of heart fail ure: Mother, Father(V17.49, Z82.49) Status:Active High serum cholesterol sulfa te: Mother, Father Status:Active Family history of hypertensi on: Mother, Father(V17.49, Z82.49) Status:Active Family history of hypothyroi dism: Mother(V18.19, Z83.49) Status:Active Irregular heartbeat: Mother Status:Active Family history of cerebrovas cular accident (CVA): Mother(V17.1, Z82.3) Status:Active Relationship Condition Age at Onset Recorded Date/T mary mother Cardiac disease Unknown father Cardiac disease Unknown Diabetes mellitus Unknown Unknown Family Member Name Dates Details Family history of diabetes m ellitus: Father, Sister(V18.0, Z83.3) Status:Active Family history of cardiac di sorder: Mother, Grandparent(V17.49, Z82.49) Status:Active Family history of myocardial infarction: Mother(V17.3, Z82.49) Status:Active Family history of heart fail ure: Mother, Father(V17.49, Z82.49) Status:Active High serum cholesterol sulfa te: Mother, Father Status:Active Family history of hypertensi on: Mother, Father(V17.49, Z82.49) Status:Active Family history of hypothyroi dism: Mother(V18.19, Z83.49) Status:Active Irregular heartbeat: Mother Status:Active Family history of cerebrovas cular accident (CVA): Mother(V17.1, Z82.3) Status:Active Unknown Family Member Name Dates Details Family history of diabetes m ellitus: Father, Sister(V18.0, Z83.3) Status:Active Family history of myocardial infarction: Mother(V17.3, Z82.49) Status:Active Family history of cardiac di sorder: Mother, Grandparent(V17.49, Z82.49) Status:Active Family history of heart fail ure: Mother, Father(V17.49, Z82.49) Status:Active High serum cholesterol sulfa te: Mother, Father Status:Active Family history of hypertensi on: Mother, Father(V17.49, Z82.49) Status:Active Family history of hypothyroi dism: Mother(V18.19, Z83.49) Status:Active Irregular heartbeat: Mother Status:Active Family history of cerebrovas cular accident (CVA): Mother(V17.1, Z82.3) Status:Active Advance Directives No Advanced Directives Records FoundDocuments on File Type Date Recorded 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 Advance Directives and Living Will Advance Directive Response Recorded Date/ Time Living Will Yes October 23, 2021 1: 40pm Power of Wireless Telegrapher Yes October 23, 2021 1:40pm Advance Directive Response Recorded Date/ Time Name of Medical Power of Wireless Telegrapher penelope schultz October 23, 2021 1:40pm Living Will No December 03, 2021 9:46am Power of Wireless Telegrapher No December 03 9:46am Advance Directive Response Recorded Date/ Time Name of Medical Power of Wireless Telegrapher penelope nichols rt October 23, 2021 1:40pm Name of Medical Power of Wireless Telegrapher Penelope Silveira January 17, 2022 1:03pm Living Will Yes January 17, 2022 1:03pm Power of Wireless Telegrapher Yes January 17 1:03pm Advance Directive Response Recorded Date/ Time Name of Medical Power of Wireless Telegrapher Penelope Silveira January 17, 2022 1:03pm Name of Medical Power of Wireless Telegrapher Rick Cardenas y February 28, 2022 11:17am Living Will Yes February 28, 2022 11:17am Power of Wireless Telegrapher Yes February 11:17am Advance Directive Response Recorded Date/ Time Name of Medical Power of Wireless Telegrapher Rick Cardenas y February 28, 2022 10:17am Living Will Yes February 28, 2022 10:17am Power of Wireless Telegrapher Yes February 10:17am Advance Directive Response Recorded Date/ Time Living Will Yes February 28, 2022 11:17am Power of Wireless Telegrapher Yes February 11:17am Advance Directive Response Recorded Date/ Time Name of Medical Power of Wireless Telegrapher elisa conde, s/o, mallika daughter April 27, 2023 10:56am Living Will Yes April 27, 2 023 10:56am Power of Wireless Telegrapher Yes April 27, 2023 10:56am Advance Directive Response Recorded Date/ Time Name of Medical Power of Wireless Telegrapher Penelope Castror April 27, 2023 2:56pm Living Will Yes April 27, 2 023 2:56pm Power of Wireless Telegrapher Yes April 27, 2023 2:56pm Latest Code Status on File Code Status Date Activated Date Inactivated Comments Full Code 04/29/2023 7:28 PM 05/01/2023 4:57 PM Latest Code Status on File Code Status Date Activated Date Inactivated Comments Full Code 04/29/2023 7:28 PM 05/01/2023 4:57 PM Advance Directive Response Recorded Date/ Time Name of Medical Power of Wireless Telegrapher Penelope Silveira April 27, 2023 2:56pm Living Will No May 18 7:28am Power of Wireless Telegrapher No May 18, 2023 7:28am Advance Directive Response Recorded Date/ Time Living Will No June 26 1:27am Power of Wireless Telegrapher No June 26, 2023 1:27am Name of Medical Power of Wireless Telegrapher Penelope Silveira April 27, 2023 2:56pm Advance Directive Response Recorded Date/ Time Name of Medical Power of Wireless Telegrapher Penelope Castror April 27, 2023 2:56pm Advance Directives on File No 2023 10:28am Living Will No July 03 10:08am Power of Wireless Telegrapher No July 03, 2023 10:08am Advance Directive Response Recorded Date/ Time Advance Directives on File No 2023 11:28am Living Will No July 03 11:08am Power of Wireless Telegrapher No July 03, 2023 11:08am Advance Directive Response Recorded Date/ Time Do you have a Healthcare Power of Wireless Telegrapher? No November 03, 2024 1:43pm Advance Directive Response Recorded Date/ Time Do you have a Healthcare Power of Wireless Telegrapher? No November 03, 2024 1:43pm Do you have a Healthcare Power of Wireless Telegrapher? Yes January 21, 2025 3:02pm Name of Medical Power of Wireless Telegrapher Penelope Silveira January 21, 2025 3:02pm History of Present Illness * Masood Sanchez MD - 01/02/2019 8:25 AM EDT [facility] [address] [facility] [address] [facility] [id number] Subjective: Elsa Pugh is a 63 y.o. female seen in the office today for Chief Complaint Patient presents with Follow-up 6 mo f/u. Chest Pain pt c/o mid sternum chest pressure after exerting herself. Symptoms are relieved after resting. Dictation on: 01/02/2019 8:26 AM by: MASOOD SANCHEZ [[id number]] Overview of Problems Addressed: Problem Cardiac Angina (Hcc) Class 2. Stable Extensive history of atherosclerotic heart disease remote cardiac bypass grafting multiple coronaryinterventions last heart catheterization and coronary interventions of the saphenous vein graft to right coronary artery repeat in August 2017. EECP did help patient with angina pectoris winter 2018. History of severe hyperkalemia renal insufficiency transient on spironolactone and ARB with febrileillness. AugustSeptember 2018 [facility]. Assessment & Plan: Dictation on: 01/02/2019 8:28 AM by: MASOOD SANCHEZ [[id number]] No problem-specific Assessment & Plan notes found for this encounter. Histories: Past Medical History: Diagnosis Date Acute torn meniscus Chronic kidney disease stage III Coronary artery disease Diabetes mellitus (HCC) GERD (gastroesophageal reflux disease) Hyperlipidemia Hypertension Myocardial infarction (HCC) Narcolepsy Obstructive sleep apnea treated with continuous positive airway pressure (CPAP) Past Surgical History: Procedure Laterality Date CARDIAC CATHETERIZATION 2014 CARDIAC CATHETERIZATION 2012 CARDIAC CATHETERIZATION 2010 CARDIAC CATHETERIZATION 2009 CARDIAC CATHETERIZATION 2003 CARDIAC CATHETERIZATION Left 02/14/2016 Dr. Abreu EF 56% normal LV end-diastolic pressure. Patent svg to posterior branch RCA, angiographicdisease progression in midbody of svg. Functionally occluded YATES graft to mid LAD. Severe timbi[place] multivessel CAD w/no angiographic evidence of restenosis in anterior circulation. CARDIAC CATHETERIZATION Left 08/02/2016 Higinio Harris EF 54% normal LV systolic function & end-diastolic pressure. Patent SVG posterior descending branch RCA w/high grade restenotic segment in distal body of graft. Severe timbi[place] sh[place] multivessel CAD without angiographic evidence of restenosis within anterior circulation. Known occluded internal mammary graft to LAD & SVG to obtuse marginal branch of CX not selectively injected. See LENA. CORONARY ARTERY BYPASS GRAFT 2001 YATES - LAD, SVG - RCA, radial to om CORONARY STENT PLACEMENT 2014 2 LENA to RCA graft CORONARY STENT PLACEMENT 02/14/2016 Dr. Abreu lena to midbody svg to posterior descending artery branch of RCA. Resolute stent. CORONARY STENT PLACEMENT 08/02/2016 Dr. Abreu intervention LENA placement to restenotic segment in distal body of SVG to posterior descending branch. Xience stent placed HYSTERECTOMY TONSILLECTOMY Family History Problem Relation Age of Onset Valvular heart disease Mother Heart disease Mother Diabetes Father Heart disease Father Social History Tobacco Use Smoking status: Former Smoker Last attempt to quit: 07/07/1997 Years since quittin.5 Smokeless tobacco: Never Used Substance Use Topics Alcohol use: Yes Comment: rarely Drug use: No Patient's Medications New Prescriptions No medications on file Previous Medications CARBIDOPA-LEVODOPA (SINEMET) 10-100 MG PER TABLET Take 1 tablet by mouth 2 (two) times a day. CITALOPRAM (CELEXA) 40 MG TABLET Take 40 mg by mouth daily. CLOPIDOGREL (PLAVIX) 75 MG TABLET Take 1 (one) tablet (75 mg total) by mouth daily. FUROSEMIDE (LASIX) 40 MG TABLET One and one-half tablets (60 mg total) daily. LORAZEPAM (ATIVAN) 1 MG TABLET Take 1 mg by mouth daily. LYRICA 150 MG CAPSULE Take 225 mg by mouth 2 (two) times a day . MAGNESIUM GLUCONATE (MAGONATE) 27.5 MG (500 MG) TABLET Take 250 mg by mouth daily . METFORMIN (GLUCOPHAGE) 500 MG TABLET Take 500 mg by mouth 2 (two) times a day with meals . METOLAZONE (ZAROXOLYN) 2.5 MG TABLET Take 2.5 mg by mouth as needed . NITROGLYCERIN (NITROSTAT) 0.[address] 1 tablet (0.4 mg total) under the tongue every 5 (five) minutes as needed for chest pain. POTASSIUM CHLORIDE SA (K-DUR,KLOR-CON) 20 MEQ TABLET Two tablets (40 mEq total) twice daily . RANOLAZINE (RANEXA) 1,000 MG SR TABLET Take 1 (one) tablet (1,000 mg total) by mouth 2 (two) times a day . RED YEAST RICE 600 MG TAB Take 600 mg by mouth 2 (two) times a day. Modified Medications No medications on file Discontinued Medications AMLODIPINE (NORVASC) 5 MG TABLET Take 1 (one) tablet (5 mg total) by mouth daily . ESOMEPRAZOLE (NEXIUM) 20 MG CAPSULE Take 20 mg by mouth every morning before breakfast . ISOSORBIDE MONONITRATE (IMDUR) 30 MG 24 HR TABLET Take 30 mg by mouth 2 (two) times a day . OLMESARTAN (BENICAR) 20 MG TABLET Take 1 (one) tablet (20 mg total) by mouth daily . SPIRONOLACTONE (ALDACTONE) 50 MG TABLET Take 1 (one) tablet (50 mg total) by mouth 2 (two) times a day. ZINC GLUCONATE 50 MG TABLET Take 50 mg by mouth daily. Allergies Allergen Reactions Aspirin Banana Darvocet A500 [Propoxyphene N-Acetaminophen] Ibuprofen Kiwi Levaquin [Levofloxacin] Lisinopril Other (See Comments) Cough Lopid [Gemfibrozil] Niacin Penicillins Spironolactone Hyperkalemia at high dose with febrile illness. Ucgjnck-Nry-Too Reductase Inhibitors Sulfa (Sulfonamide Antibiotics) Tramadol ROS Objective: Physical Exam Vitals: Vitals: 01/02/19 0753 BP: 114/70 BP Location: Left arm Patient Position: Sitting Pulse: (!) 53 SpO2: 92% Weight: 103.2 kg (227 lb 8 oz) Height: 5' 3 Body mass index is 40.3 kg/m . No orders of the defined types were placed in this encounter. Follow Up Ordered: Return in about 6 months (around 07/05/2019). Masood Sanchez MD * Michelle Church MA - 01/02/2019 7:56 AM EDT Review of Systems Constitution: Negative for diaphoresis, malaise/fatigue, weight gain and weight loss. HENT: Negative for hearing loss, nosebleeds and tinnitus. Eyes: Negative for blurred vision and visual disturbance. Cardiovascular: Positive for chest pain and dyspnea on exertion. Negative for claudication, cyanosis, irregular heartbeat, leg swelling, near-syncope, orthopnea, palpitations, paroxysmal nocturnal dyspnea and syncope. Respiratory: Positive for shortness of breath. Negative for hemoptysis and snoring. Endocrine: Negative for cold intolerance and heat intolerance. Hematologic/Lymphatic: Does not bruise/bleed easily. Skin: Negative for flushing, poor wound healing and rash. Musculoskeletal: Negative for back pain, muscle weakness and myalgias. Gastrointestinal: Negative for abdominal pain, change in bowel habit, melena, nausea and vomiting. Genitourinary: Negative for decreased libido and hematuria. Neurological: Negative for loss of balance and numbness. Psychiatric/Behavioral: Negative for memory loss. The patient is not nervous/anxious. documented in this encounter* Masood Sanchez MD - 07/23/2019 1:39 PM EST [facility] [address] ([address]) [facility] [address] [facility] [id number] Subjective: Elsa Pugh is a 64 y.o. female seen in the office today for Chief Complaint Patient presents with Pre-op Exam Pre Op ov w/ EKG today --Colonoscopy scheduled for 07/29 Overview of Problems Addressed: Problem Preop Cardiovascular Exam Cardiac Angina (Hcc) Class 2. Stable rare chest discomfort optically always related to exertion. Somewhat atypical Extensive history of atherosclerotic heart disease remote cardiac bypass grafting multiple coronaryinterventions last heart catheterization and coronary interventions of the saphenous vein graft to right coronary artery repeat in August 2017. 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 History of normal LV function. EECP (enhanced external counterpulsation) [facility] did help patient with angina pectoris winter 2018. History of severe hyperkalemia with renal insufficiency transient on spironolactone and ARB with febrile illness. AugustSeptember 2018 [facility]. Resolved Coronary Artery Disease Coronary artery bypass grafting History of statin intolerance and multiple other drug intolerances. Known occluded and atretic YATES to the LAD, failed radial graft to the OM January 2015 stent to diagonal, mid LAD, and SVG to right coronary artery (RCA) November 2015 and repeat in 2017. progressive disease distal vein graft to RCA and stenting January 2016 stent to mid body of the SVG to PDA of right coronary artery July 2015 abnormal SPECT Assessment & Plan: Cardiac angina (HCC) Patient with planned colonoscopy and probable Lap Jerry in near future to be done at [facility]. Patient has rare stable angina which is been very well controlled ever since she had the EECP in winter 2018. Previous coronary events as outlined above August 2017. History of normal LV function. History of fluid retention from time to time uses furosemide and metolazone used to twice a month of June 2019 chronic Plavix therapy. History of intolerance to aspirin. EKG unremarkable July 23, 2019. Patient moderate stable cardiac risk for planned procedure in the near future okay to stop the Plavix for 7 to 10 days as needed medications in the perioperative period. Patient is cleared for planned colonoscopy and possible lap jerry in the near future. Histories: Past Medical History: Diagnosis Date Acute torn meniscus Chronic kidney disease stage III Coronary artery disease Diabetes mellitus (HCC) GERD (gastroesophageal reflux disease) Hyperlipidemia Hypertension Myocardial infarction (HCC) Narcolepsy Obstructive sleep apnea treated with continuous positive airway pressure (CPAP) Past Surgical History: Procedure Laterality Date CARDIAC CATHETERIZATION 2014 CARDIAC CATHETERIZATION 2012 CARDIAC CATHETERIZATION 2010 CARDIAC CATHETERIZATION 2008 CARDIAC CATHETERIZATION 2003 CARDIAC CATHETERIZATION Left 02/14/2016 Dr. Abreu EF 56% normal LV end-diastolic pressure. Patent svg to posterior branch RCA, angiographicdisease progression in midbody of svg. Functionally occluded YATES graft to mid LAD. Severe tim[place] multivessel CAD w/no angiographic evidence of restenosis in anterior circulation. CARDIAC CATHETERIZATION Left 08/02/2016 Higinio Harris EF 54% normal LV systolic function & end-diastolic pressure. Patent SVG posterior descending branch RCA w/high grade restenotic segment in distal body of graft. Severe tim[place] multivessel CAD without angiographic evidence of restenosis within anterior circulation. Known occluded internal mammary graft to LAD & SVG to obtuse marginal branch of CX not selectively injected. See LENA. CORONARY ARTERY BYPASS GRAFT 2001 YATES - LAD, SVG - RCA, radial to om CORONARY STENT PLACEMENT 2014 2 LENA to RCA graft CORONARY STENT PLACEMENT 02/14/2016 Dr. Abreu lena to midbody svg to posterior descending artery branch of RCA. Resolute stent. CORONARY STENT PLACEMENT 08/02/2016 Dr. Abreu intervention LENA placement to restenotic segment in distal body of SVG to posterior descending branch. Xience stent placed HYSTERECTOMY TONSILLECTOMY Family History Problem Relation Age of Onset Valvular heart disease Mother Heart disease Mother Diabetes Father Heart disease Father Social History Tobacco Use Smoking status: Former Smoker Last attempt to quit: 07/07/1997 Years since quittin.0 Smokeless tobacco: Never Used Substance Use Topics Alcohol use: Yes Comment: rarely Drug use: No Patient's Medications New Prescriptions No medications on file Previous Medications CANAGLIFLOZIN 100 MG TAB Take 100 mg by mouth Currently not taking due to side effects . CARBIDOPA-LEVODOPA (SINEMET) 10-100 MG PER TABLET Take 1 tablet by mouth 2 (two) times a day. CITALOPRAM (CELEXA) 40 MG TABLET Take 40 mg by mouth daily. CLOPIDOGREL (PLAVIX) 75 MG TABLET Take 1 (one) tablet (75 mg total) by mouth daily . FUROSEMIDE (LASIX) 40 MG TABLET One and one-half tablets (60 mg total) daily. LORAZEPAM (ATIVAN) 1 MG TABLET Take 1 mg by mouth daily. LYRICA 150 MG CAPSULE Take 225 mg by mouth 2 (two) times a day . MAGNESIUM GLUCONATE (MAGONATE) 27.5 MG (500 MG) TABLET Take 250 mg by mouth daily . METFORMIN (GLUCOPHAGE) 500 MG TABLET Take 500 mg by mouth 2 (two) times a day with meals . METOLAZONE (ZAROXOLYN) 2.5 MG TABLET Take 2.5 mg by mouth as needed . NITROGLYCERIN (NITROSTAT) 0.[address] 1 tablet (0.4 mg total) under the tongue every 5 (five) minutes as needed for chest pain. POTASSIUM CHLORIDE SA (K-DUR,KLOR-CON) 20 MEQ TABLET Two tablets (40 mEq total) twice daily . RANOLAZINE (RANEXA) 1,000 MG SR TABLET Take 1 (one) tablet (1,000 mg total) by mouth 2 (two) times a day . RED YEAST RICE 600 MG TAB Take 600 mg by mouth 2 (two) times a day. Modified Medications No medications on file Discontinued Medications No medications on file Allergies Allergen Reactions Aspirin Banana Darvocet A500 [Propoxyphene N-Acetaminophen] Ibuprofen Kiwi Levaquin [Levofloxacin] Lisinopril Other (See Comments) Cough Lopid [Gemfibrozil] Niacin Penicillins Spironolactone Hyperkalemia at high dose with febrile illness. Heuadgr-Emg-Etj Reductase Inhibitors Sulfa (Sulfonamide Antibiotics) Tramadol Review of Systems Constitution: Negative for diaphoresis, malaise/fatigue, weight gain and weight loss. HENT: Negative for hearing loss, nosebleeds and tinnitus. Eyes: Negative for blurred vision and visual disturbance. Cardiovascular: Negative for chest pain, claudication, cyanosis, dyspnea on exertion, irregular heartbeat, leg swelling, near-syncope, orthopnea, palpitations, paroxysmal nocturnal dyspnea and syncope. Respiratory: Negative for hemoptysis, shortness of breath and snoring. Endocrine: Negative for cold intolerance and heat intolerance. Hematologic/Lymphatic: Does not bruise/bleed easily. Skin: Negative for flushing, poor wound healing and rash. Musculoskeletal: Negative for back pain, muscle weakness and myalgias. Gastrointestinal: Negative for abdominal pain, change in bowel habit, melena, nausea and vomiting. Genitourinary: Negative for decreased libido and hematuria. Neurological: Negative for loss of balance and numbness. Psychiatric/Behavioral: Negative for memory loss. The patient is not nervous/anxious. Objective: Physical Exam Constitutional: She is oriented to person, place, and time. She appears well- developed and well-nourished. No distress. HENT: Head: Normocephalic. Mouth/Throat: Oropharynx is clear and moist. Eyes: Conjunctivae and lids are normal. Neck: No JVD present. Carotid bruit is not present. Cardiovascular: Normal rate, regular rhythm, normal heart sounds, intact distal pulses and normal pulses. Exam reveals no gallop and no friction rub. No murmur heard. Pulmonary/Chest: Effort normal and breath sounds normal. Abdominal: Soft. Bowel sounds are normal. She exhibits no mass. There is no hepatosplenomegaly. There is no abdominal tenderness. Musculoskeletal: General: No tenderness. Comments: 1+ pedal edema bilaterally support hose. Neurological: She is alert and oriented to person, place, and time. Gait normal. Skin: Skin is warm and intact. No rash noted. Psychiatric: She has a normal mood and affect. Her behavior is normal. Vitals reviewed. Vitals: Vitals: 07/23/19 1316 BP: 122/80 BP Location: Left arm Patient Position: Sitting BP Cuff Size: Adult Pulse: 60 SpO2: 90% Weight: 103.4 kg (228 lb) Body mass index is 40.39 kg/m . Orders Placed This Encounter Procedures ECG 12 Lead Follow Up Ordered: Return in about 6 months (around 01/21/2020). Masood Sanchez MD documented in this encounter* Raisa Rao MD - 02/16/2020 2:00 PM EDT OFFICE CONSULTATION NOTE [facility] [address] [facility] [address] [facility] [id number] Physicians: Carlos Clarke MD Subjective: Elsa Pugh is a 64 y.o. female seen in the office today for Follow-up (c/o chest pain, rtneck, low back pain, lt arm pain on 02/10. one NTG for relief. no new sx as of today ) . HPI: The patient is a 64-year-old female with a past medical history significant for severe coronary artery disease status post coronary artery bypass grafting in the past. She has had multiple percutaneous interventions. Her last cardiac catheterization was in August 2017 which showed chronic occlusion of the YATES to the LAD. She has had stenting of that [place] vessel. That vessel was patent with moderate mid vessel disease. The right coronary artery was proximally occluded at the site of a previousstent implantation. The saphenous vein graft to the right coronary artery demonstrated 90% luminal irregularities in the distal body. The proximal portion of that graft had a 70 to 80% de pete ulcerated stenosis. She had complex PCI of that vein graft. She received a drug-eluting stent to the proximal and distal body of the graft. The circumflex had moderate luminal irregularities but was patent.She had normal LV systolic function. Additional history includes hypertension, hyperlipidemia, diabetes mellitus, and chronic kidney disease. Elsa had an episode of left arm discomfort radiating to her chest on February 10. She was unsure as to whether or not it was musculoskeletal in nature. She had been painting a room using both of herarms intermittently. She did take 1 nitroglycerin with almost immediate relief. She is taking 1 nitroglycerin every 6 weeks or so. She does not exercise regularly. She denies any orthopnea, paroxysmal nocturnal dyspnea, syncope, or near syncope. She does have obstructive sleep apnea and is compliant with CPAP therapy. Assessment & Plan: Obstructive sleep apnea treated with continuous positive airway pressure (CPAP) She is compliant with CPAP therapy. Hypertension Her blood pressure is well controlled on current medical therapy. She is actually not on any antihypertensive agents at this time. She is not taking any diuretic either. Hyperlipidemia She is apparently intolerant to all statin medications. She is on red yeast rice. Her last LDL was not at goal. This is being followed by primary care. Coronary artery disease She does have occasional chest and arm discomfort which is nitrate responsive. She states she takesnitroglycerin every 6 to 8 weeks. I did recommend a SPECT to assess for inferior wall ischemia but she is actually satisfied with her current functional capacity does not wish to have a study at thistime. I believe this is a reasonable approach. I did offer isosorbide mononitrate in addition to asneeded sublingual nitroglycerin but she states she could not tolerate this medication. She will call us if she notices any acceleration of her current symptoms. Diabetes mellitus (HCC) Glucose is followed through primary care. The patient does not wish any further evaluation at this time. She will call us if she notices any exacerbation of her current symptoms. Otherwise, I will see her again in 6 months. Follow Up Ordered: Return in about 6 months (around 08/15/2020). Histories: Past Medical History: Diagnosis Date Acute torn meniscus Chronic kidney disease stage III Coronary artery disease Diabetes mellitus (HCC) GERD (gastroesophageal reflux disease) Hyperlipidemia Hypertension Myocardial infarction (HCC) Narcolepsy Obstructive sleep apnea treated with continuous positive airway pressure (CPAP) Past Surgical History: Procedure Laterality Date CARDIAC CATHETERIZATION 2014 CARDIAC CATHETERIZATION 2012 CARDIAC CATHETERIZATION 2010 CARDIAC CATHETERIZATION 2008 CARDIAC CATHETERIZATION 2002 CARDIAC CATHETERIZATION Left 02/14/2016 Dr. Abreu EF 56% normal LV end-diastolic pressure. Patent svg to posterior branch RCA, angiographicdisease progression in midbody of svg. Functionally occluded YATES graft to mid LAD. Severe timbi[place] multivessel CAD w/no angiographic evidence of restenosis in anterior circulation. CARDIAC CATHETERIZATION Left 08/02/2016 Higinio Harris EF 54% normal LV systolic function & end-diastolic pressure. Patent SVG posterior descending branch RCA w/high grade restenotic segment in distal body of graft. Severe tim[place] multivessel CAD without angiographic evidence of restenosis within anterior circulation. Known occluded internal mammary graft to LAD & SVG to obtuse marginal branch of CX not selectively injected. See LENA. CORONARY ARTERY BYPASS GRAFT 2001 YATES - LAD, SVG - RCA, radial to om CORONARY STENT PLACEMENT 2014 2 LENA to RCA graft CORONARY STENT PLACEMENT 02/14/2016 Dr. Abreu lena to midbody svg to posterior descending artery branch of RCA. Resolute stent. CORONARY STENT PLACEMENT 08/02/2016 Dr. Abreu intervention LENA placement to restenotic segment in distal body of SVG to posterior descending branch. Xience stent placed HYSTERECTOMY TONSILLECTOMY Family History Problem Relation Age of Onset Valvular heart disease Mother Heart disease Mother Diabetes Father Heart disease Father Social History Tobacco Use Smoking status: Former Smoker Quit date: 07/07/1997 Years since quittin.6 Smokeless tobacco: Never Used Substance Use Topics Alcohol use: Yes Comment: rarely Drug use: No Current Outpatient Medications Medication Sig Dispense Refill carbidopa-levodopa (SINEMET) 10-100 mg per tablet Take 1 tablet by mouth 2 (two) times a day. citalopram (CELEXA) 40 MG tablet Take 40 mg by mouth daily. clopidogreL (PLAVIX) 75 mg tablet Take 1 tablet by mouth once daily 90 tablet 2 cyanocobalamin (vitamin B-12) 500 MCG tablet Take 500 mcg by mouth daily . LORazepam (ATIVAN) 1 MG tablet Take 1 mg by mouth daily. LYRICA 150 mg capsule Take 225 mg by mouth 2 (two) times a day . magnesium gluconate (MAGONATE) 27.5 mg (500 mg) tablet Take 250 mg by mouth daily . metFORMIN (GLUCOPHAGE) 500 MG tablet Take 500 mg by mouth 2 (two) times a day with meals . nitroGLYCERIN (NITROSTAT) 0.[address] 1 (one) tablet (0.4 mg total) under the tongue every 5 (five) minutes as needed for chest pain . 25 tablet 4 ranolazine (Ranexa) 1,000 mg SR tablet Take 1 (one) tablet (1,000 mg total) by mouth 2 (two) times a day . 180 tablet 3 red yeast rice 600 mg Tab Take 600 mg by mouth 2 (two) times a day. furosemide (LASIX) 40 MG tablet One and one-half tablets (60 mg total) daily. (Patient not taking: Reported on 02/16/2020 .) 135 tablet 2 metolazone (ZAROXOLYN) 2.5 MG tablet Take 2.5 mg by mouth as needed . potassium chloride SA (K-DUR,KLOR-CON) 20 MEQ tablet Two tablets (40 mEq total) twice daily . (Patient not taking: Reported on 02/16/2020 .) 360 tablet 2 No current facility-administered medications for this visit. Allergies Allergen Reactions Aspirin Banana Darvocet A500 [Propoxyphene N-Acetaminophen] Ibuprofen Kiwi Levaquin [Levofloxacin] Lisinopril Other (See Comments) Cough Lopid [Gemfibrozil] Niacin Penicillins Spironolactone Hyperkalemia at high dose with febrile illness. Tcgcfen-Gep-Jmt Reductase Inhibitors Sulfa (Sulfonamide Antibiotics) Tramadol Review of Systems Constitution: Negative for diaphoresis, malaise/fatigue, weight gain and weight loss. HENT: Negative for hearing loss, nosebleeds and tinnitus. Eyes: Negative for blurred vision and visual disturbance. Cardiovascular: Positive for chest pain. Negative for claudication, cyanosis, dyspnea on exertion, irregular heartbeat, leg swelling, near-syncope, orthopnea, palpitations, paroxysmal nocturnal dyspnea and syncope. Respiratory: Negative for hemoptysis, shortness of breath and snoring. Endocrine: Negative for cold intolerance and heat intolerance. Hematologic/Lymphatic: Does not bruise/bleed easily. Skin: Negative for flushing, poor wound healing and rash. Musculoskeletal: Negative for back pain, muscle weakness and myalgias. Gastrointestinal: Negative for abdominal pain, change in bowel habit, melena, nausea and vomiting. Genitourinary: Negative for decreased libido and hematuria. Neurological: Negative for loss of balance and numbness. Psychiatric/Behavioral: Negative for memory loss. The patient is not nervous/anxious. Overview of Problems Addressed: Problem Diabetes Mellitus (Hcc) Obstructive Sleep Apnea Treated With Continuous Positive Airway Pressure (Cpap) Compliant. Coronary Artery Disease Coronary artery bypass grafting History of statin intolerance and multiple other drug intolerances. Known occluded and atretic YATES to the LAD, failed radial graft to the OM January 2015 stent to diagonal, mid LAD, and SVG to right coronary artery (RCA) November 2015 and repeat in 2017. progressive disease distal vein graft to RCA and stenting January 2016 stent to mid body of the SVG to PDA of right coronary artery July 2015 abnormal SPECT Hyperlipidemia Hypertension Objective: Physical Exam Constitutional: She is oriented to person, place, and time. She appears well- developed and well-nourished. HENT: Head: Normocephalic. Eyes: Pupils are equal, round, and reactive to light. Conjunctivae and EOM are normal. No scleral icterus. Neck: Normal range of motion. Neck supple. No JVD present. No tracheal deviation present. No thyromegaly present. Cardiovascular: Normal rate, regular rhythm, S1 normal, S2 normal and intact distal pulses. Exam reveals no friction rub. Murmur heard. She has a 2/6 systolic murmur heard best at the upper right and left sternal border. Pulmonary/Chest: Breath sounds normal. No respiratory distress. She has no wheezes. She has no rales. Abdominal: Soft. Bowel sounds are normal. She exhibits no distension and no mass. There is no hepatosplenomegaly. There is no abdominal tenderness. Mildly obese. Musculoskeletal: Normal range of motion. General: No edema. Lymphadenopathy: She has no cervical adenopathy. Neurological: She is alert and oriented to person, place, and time. Skin: Skin is warm and dry. Psychiatric: She has a normal mood and affect. Her behavior is normal. Vitals: Vitals: 02/16/20 1337 BP: 124/80 BP Location: Right arm Patient Position: Sitting Pulse: (!) 55 SpO2: 94% Weight: 101.4 kg (223 lb 8 oz) Height: 5' 3 Orders Placed This Encounter cyanocobalamin (vitamin B-12) 500 MCG tablet nitroGLYCERIN (NITROSTAT) 0.4 MG SL tablet Thank you for allowing me to assist you in the cardiovascular care of this patient. Please don't hesitate to contact me if you have any questions regarding these thoughts. Raisa Rao MD documented in this encounter Instructions Name Dates Details Instructions not documented Chief Complaint medckknee and ankle painmedck and AWV* f/u urgent care sravan, pt. c/o headache, cough, wheezing x5 days. * An interactive audio and video telecommunication system which permits real time communications between the patient (at the originating site) and provider (at the distant site) was utilized to providethis telehealth service. * Verbal consent was requested and obtained from ELSA PUGH on this date, 06/13/2021 07:40 AM , for a telehealth visit. 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, PT NEEDS NPP fall EPIGASTRIC PAIN Blood sugar issues DIZZINESS Reason for Visit Epigastric pain Atherosclerotic heart disease of [place] coronary artery without angina pectoris Essential hypertension H/O coronary artery bypass surgery History of coronary artery stent placement Hyperlipidemia Obesity Type 2 diabetes mellitus Epigastric pain Type 2 diabetes mellitus Chief Complaint fall EPIGASTRIC PAIN Blood sugar issues DIZZINESS CONTINUOUS HEADACHES 3 M FU 6 M FU SOB Reason for Visit Epigastric pain Type 2 diabetes mellitus Headache Carotid artery stenosis Dizziness Epigastric pain Headache Imbalance Atherosclerosis of coronary artery 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 Atherosclerotic heart disease of [place] coronary artery without angina pectoris Essential hypertension Hyperhomocystinemia Hyperlipidemia Obesity Type 2 diabetes mellitus Essential hypertension H/O coronary artery bypass surgery History of coronary artery stent placement Hyperlipidemia Chief Complaint fall EPIGASTRIC PAIN Blood sugar issues DIZZINESS CONTINUOUS HEADACHES 3 M FU 6 M FU SOB DIZZINESS Reason for Visit Epigastric pain Type 2 diabetes mellitus Headache Carotid artery stenosis Dizziness Epigastric pain Headache Imbalance Atherosclerosis of coronary artery 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 Atherosclerotic heart disease of [place] coronary artery without angina pectoris Essential hypertension Hyperhomocystinemia Hyperlipidemia Obesity Type 2 diabetes mellitus Essential hypertension H/O coronary artery bypass surgery History of coronary artery stent placement Hyperlipidemia Chief Complaint 6 M FU SOB DIZZINESS FU INT LABS Reason for Visit Essential hypertensi on H/O coronary artery bypass surgery History of coronary artery stent placement Hyperlipidemia Atherosclerosis of coronary artery 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 Atherosclerotic heart disease of [place] coronary artery without angina pectoris Essential hypertension H/O coronary artery bypass surgery History of coronary artery stent placement Hyperlipidemia Obesity Type 2 diabetes mellitus Chief Complaint 3 M FU E-ORDER Reason for Visit Dyspnea Fatigue Atherosclerotic heart disease of [place] coronary artery without angina pectoris Essential hypertension Hyperlipidemia Chief Complaint 3 M FU E-ORDER CHEST PAIN, DYSPNEA Reason for Visit Dyspnea Fatigue Atherosclerotic heart disease of [place] coronary artery without angina pectoris Essential hypertension Hyperlipidemia Chief Complaint ear injury 1 Y FU SOB Reason for Visit Dyspnea Atherosclerotic heart disease of [place] coronary artery without angina pectoris Essential hypertension Hyperlipidemia Chief Complaint ear injury 1 Y FU NSTEMO\I NSTEMO\I NSTEMO\I NSTEMO\I NSTEMO\I Reason for Visit Dyspnea Atherosclerotic heart disease of [place] coronary artery without angina pectoris Essential hypertension Hyperlipidemia Acute electrocardiogram changes Hypokalemia Non-ST elevation AR (NSTEMI) Atherosclerotic heart disease of [place] coronary artery without angina pectoris Essential hypertension H/O coronary artery bypass surgery History of coronary artery stent placement Hyperlipidemia Chief Complaint ear injury 1 Y FU NSTEMO\I NSTEMO\I INCREASING RT SHOULDER PAIN NSTEMO\I NSTEMO\I NSTEMO\I NSTEMO\I chest pain chest pain Reason for Visit Dyspnea Non-ST elevation AR (NSTEMI) Acute electrocardiogram changes Hypokalemia Chief Complaint 1 Y FU NSTEMO\I NSTEMO\I INCREASING RT SHOULDER PAIN NSTEMO\I NSTEMO\I NSTEMO\I NSTEMO\I chest pain chest pain S/P [facility] NSTEMI 04/30/23 (SCANNED) UTI, CA UTI, CA UTI, CA UTI, CA Reason for Visit Dyspnea Non-ST elevation AR (NSTEMI) Acute electrocardiogram changes Hypokalemia Atherosclerosis of coronary artery Chest pain Dyspnea Acute kidney injury Nausea and vomiting Urinary tract infection Chief Complaint NSTEMO\I NSTEMO\I INCREASING RT SHOULDER PAIN NSTEMO\I NSTEMO\I NSTEMO\I NSTEMO\I chest pain chest pain S/P [facility] NSTEMI 04/30/23 (SCANNED) UTI, CA UTI, CA UTI, CA POSTOP UTI, CA AR NonSTEMI<12months Reason for Visit Non-ST elevation AR (NSTEMI) Acute electrocardiogram changes Hypokalemia Atherosclerosis of coronary artery Chest pain Dyspnea Acute kidney injury Nausea and vomiting Urinary tract infection Chief Complaint NSTEMO\I NSTEMO\I INCREASING RT SHOULDER PAIN NSTEMO\I NSTEMO\I NSTEMO\I NSTEMO\I chest pain chest pain S/P [facility] NSTEMI 04/30/23 (SCANNED) UTI, CA UTI, CA UTI, CA POSTOP UTI, CA AR NonSTEMI<12months MINonSTEMI<12 months Reason for Visit Non-ST elevation AR (NSTEMI) Acute electrocardiogram changes Hypokalemia Atherosclerosis of coronary artery Chest pain Dyspnea Acute kidney injury Nausea and vomiting Urinary tract infection Chief Complaint NSTEMO\I NSTEMO\I INCREASING RT SHOULDER PAIN NSTEMO\I NSTEMO\I NSTEMO\I NSTEMO\I chest pain chest pain S/P [facility] NSTEMI 04/30/23 (SCANNED) UTI, CA UTI, CA UTI, CA POSTOP UTI, CA AR NonSTEMI<12months MINonSTEMI<12 months MINonSTEMI<12 months EORDER Reason for Visit Non-ST elevation AR (NSTEMI) Acute electrocardiogram changes Hypokalemia Atherosclerosis of coronary artery Chest pain Dyspnea Acute kidney injury Nausea and vomiting Urinary tract infection Chief Complaint NSTEMO\I NSTEMO\I INCREASING RT SHOULDER PAIN NSTEMO\I NSTEMO\I NSTEMO\I NSTEMO\I chest pain chest pain S/P [facility] NSTEMI 04/30/23 (SCANNED) UTI, CA UTI, CA UTI, CA POSTOP UTI, CA AR NonSTEMI<12months MINonSTEMI<12 months EORDER BRADYCARDIA MINonSTEMI<12 months Reason for Visit Non-ST elevation AR (NSTEMI) Acute electrocardiogram changes Hypokalemia Atherosclerosis of coronary artery Chest pain Dyspnea Acute kidney injury Nausea and vomiting Urinary tract infection Chief Complaint S/P [facility] NSTEMI (SCANNED) UTI, CA UTI, CA UTI, CA POSTOP UTI, CA AR NonSTEMI<12months MINonSTEMI<12 months EORDER BRADYCARDIA MINonSTEMI<12 months BILAT EAR PAIN/DRAINAGE 6 M FU MINonSTEMI<12 months Reason for Visit Atherosclerosis of c oronary artery Chest pain Dyspnea Acute kidney injury Nausea and vomiting Urinary tract infection Otitis externa Otitis media Atherosclerosis of coronary artery Chief Complaint UTI, CA UTI, CA UTI, CA POSTOP UTI, CA AR NonSTEMI<12months MINonSTEMI<12 months EORDER BRADYCARDIA MINonSTEMI<12 months BILAT EAR PAIN/DRAINAGE 6 M FU MINonSTEMI<12 months MINonSTEMI<12 months Reason for Visit Acute kidney injury Nausea and vomiting Urinary tract infection Otitis externa Otitis media Atherosclerosis of coronary artery Chief Complaint Admit Date 3 M FU August 19, 2024 10:1 7am CP November 03, 2024 1:43p m Reason for Visit Admit Date Atherosclerosis of coronary artery August 19, 2024 10:17am Diabetes August 19, 2024 10:1 7am Essential hypertension August 19, 2024 1 0:17am Hyperlipidemia August 19, 2024 10:1 7am Chief Complaint Admit Date 3 M FU August 19, 2024 10:1 7am CP November 03, 2024 1:43p m HOSP FU December 14, 2024 1:40 pm Reason for Visit Admit Date Atherosclerosis of coronary artery August 19, 2024 10:17am Diabetes August 19, 2024 10:1 7am Essential hypertension August 19, 2024 1 0:17am Hyperlipidemia August 19, 2024 10:1 7am Flank pain December 14, 2024 1:40 pm Hematuria December 14, 2024 1:40 pm Chief Complaint Admit Date 3 M FU August 19, 2024 10:1 7am CP November 03, 2024 1:43p m HOSP FU December 14, 2024 1:40 pm INT LAB ORDERS December 14, 2024 2:53 pm S/P [facility] (11/03) December 16, 2024 1:41p m Reason for Visit Admit Date Atherosclerosis of coronary artery August 19, 2024 10:17am Diabetes August 19, 2024 10:1 7am Essential hypertension August 19, 2024 1 0:17am Hyperlipidemia August 19, 2024 10:1 7am Flank pain December 14, 2024 1:40 pm Gastric ulcer December 14, 2024 1:40 pm Hematuria December 14, 2024 1:40 pm Bradycardia December 16, 2024 1:41p m Chest pain December 16, 2024 1:41p m Atherosclerosis of coronary artery December 16, 2024 1:41pm Diabetes December 16, 2024 1:41p m Essential hypertension December 16, 2024 1: 41pm Hyperlipidemia December 16, 2024 1:41p m Chief Complaint Admit Date CP November 03, 2024 1:43p m HOSP FU December 14, 2024 1:40 pm INT LAB ORDERS December 14, 2024 2:53 pm S/P [facility] (11/03) December 16, 2024 1:41p m BRADYCARDIA January 13, 2025 11:4 5am 4 W FU January 13, 2025 2:20 pm Reason for Visit Admit Date Flank pain December 14, 2024 1:40 pm Gastric ulcer December 14, 2024 1:40 pm Hematuria December 14, 2024 1:40 pm Bradycardia December 16, 2024 1:41p m Chest pain December 16, 2024 1:41p m Atherosclerosis of coronary artery December 16, 2024 1:41pm Diabetes December 16, 2024 1:41p m Essential hypertension December 16, 2024 1: 41pm Hyperlipidemia December 16, 2024 1:41p m Bradycardia January 13, 2025 2:20 pm Chest pain January 13, 2025 2:20 pm Atherosclerosis of coronary artery January 13, 2025 2:20pm Diabetes January 13, 2025 2:20 pm Essential hypertension January 13, 2025 2 :20pm Hyperlipidemia January 13, 2025 2:20 pm Chief Complaint Admit Date CP November 03, 2024 1:43p m HOSP FU December 14, 2024 1:40 pm INT LAB ORDERS December 14, 2024 2:53 pm S/P [facility] (11/03) December 16, 2024 1:41p m BRADYCARDIA January 13, 2025 11:4 5am BRADYCARDIA January 13, 2025 11:5 8am 4 W FU January 13, 2025 2:20 pm anxiety January 21, 2025 1:3 1pm Reason for Referral Specialty Diagnoses / Procedures Referred By Cliff t Referred To Contact [facility] Diagnoses Hip pain, left Chronic bilateral low back pain with left-sided sciatica Procedures CONSULT TO PHYSICAL THERAPY PHYSICAL THERAPY EVALUATION HIGH COMPLEX [place] [address] [place] [address] [facility] [place] [address] [place] [address] Referral ID Status Reason Start Date Expiration Date Visits Requested Visits Authorized [id number] Pending Review Auto-Generat ed Referral 12/03/2022 12/03/2023 1 1 Specialty Diagnoses / Procedures Referred By Cliff t Referred To Contact BR [facility] Diagnoses Screening mammogram, encounter for Procedures PAULINA SCREENING SCREENING MAMMOGRAPHY BI 2-VIEW BREAST INC CAD Gabriela Linda MD [address] [place] [address] [facility] [address] [place] [address] Referral ID Status Reason Start Date Expiration Date Visits Requested Visits Authorized [id number] Pending Review Auto-Generat ed Referral 12/03/2022 01/02/2024 1 1 Specialty Diagnoses / Procedures Referred By Cliff t Referred To Contact [facility] Diagnoses Hip pain, left Chronic bilateral low back pain with left-sided sciatica Procedures PT REHAB FOLLOW UP ORDER THERAPEUTIC EXERCISES RE, EA 15 MIN. Sydni Leger, PT [facility] [place] [address] [place] [id number] Referral ID Status Reason Start Date Expiration Date Visits Requested Visits Authorized [id number] Pending Review PCP Requested Referral Auto-Generate d Referral 12/19/2022 03/19/2023 1 1 Specialty Diagnoses / Procedures Referred By Contac t Referred To Contact [facility] IMAGING Diagnoses Acute bilateral low back pain with left-sided sciatica Procedures MRI LUMBAR SPINE WO IVCON MRI SPINAL CANAL LUMBAR W/O CONTRAST MATERIAL Gabriela Linda MD [address] [place] [address] Mr Imaging Referral ID Status Reason Start Date Expiration Date Visits Requested Visits Authorized [id number] Pending Review Auto-Generat ed Referral 01/18/2023 02/17/2024 1 1 Specialty Diagnoses / Procedures Referred By Contac t Referred To Contact XR IMAGING Diagnoses Acute bilateral low back pain with left-sided sciatica Procedures XR LUMBAR GENERAL 3V AP/LAT/L5-S1 RADEX SPINE LUMBOSACRAL 2/3 VIEWS Gabriela Linda MD [facility] [place] [address] Xr Imaging Referral ID Status Reason Start Date Expiration Date V isits Requested Visits Authorized [id number] Closed Auto-Generate d Referral 01/18/2023 02/17/2024 1 1 Specialty Diagnoses / Procedures Referred By Contac t Referred To Contact CT IMAGING Diagnoses Chronic midline low back pain with sciatica, sciatica laterality unspecified Acute bilateral low back pain with left-sided sciatica Procedures CT LUMBAR SPINE WO IVCON CT LUMBAR SPINE W/O CONTRAST MATERIAL Gabriela Linda MD [address] [place] [address] [place] [id number] Referral ID Status Reason Start Date Expiration Date Visits Requested Visits Authorized [id number] Authorized Auto-Generat ed Referral 02/20/2023 03/21/2024 1 1 Specialty Diagnoses / Procedures Referred By Contac t Referred To Contact Pain Management Diagnoses Chronic midline low back pain with sciatica, sciatica laterality unspecified Acute bilateral low back pain with left-sided sciatica Procedures CONSULT TO PAIN MGT OFFICE/OUTPATIENT [facility] 60-74 MINUTES [facility] [place] [address] Referral ID Status Reason Start Date Expiration Date Visits Requested Visits Authorized [id number] Pending Review PCP Requested Referral 02/20/2023 02/20/2024 1 1 Specialty Diagnoses / Procedures Referred By Contac t Referred To Contact Diagnoses Type 2 diabetes mellitus without retinopathy (HCC) Gabriela Linda MD [address] [place] [phone] Referral ID Status Reason Start Date Expiration Date Visits Re quested Visits Authorized [id number] Closed 1 1 Referral ID Status Reason Start Date Expiration Date V isits Requested Visits Authorized [id number] Closed Auto-Generate d Referral 02/20/2023 03/21/2024 1 1 Specialty Diagnoses / Procedures Referred By Contac t Referred To Contact [facility] IM[facility] Diagnoses Acute bilateral low back pain with left-sided sciatica Procedures MRI LUMBAR SPINE WO IVCON MRI SPINAL CANAL LUMBAR W/O CONTRAST MATERIAL Gabriela Linda MD [address] [place] [phone] [facility] [place] [address] Referral ID Status Reason Start Date Expiration Date V isits Requested Visits Authorized [id number] Closed Auto-Generate d Referral 01/18/2023 02/17/2024 1 1 Specialty Diagnoses / Procedures Referred By Contac t Referred To Contact Diagnoses Restless legs syndrome (RLS) 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) Rita Delgado MD [address] [facility] [address] [place] [phone] Referral ID Status Reason Start Date Expiration Date V isits Requested Visits Authorized [id number] Pending Review 1 1 Specialty Diagnoses / Procedures Referred By Contac t Referred To Contact Gynecology Diagnoses Vaginal itching Procedures CONSULT TO GYNECOLOGY OFFICE/OUTPATIENT NEW HIGH MDM 60 MINUTES Gabriela Linda MD [address] [place] [address] Referral ID Status Reason Start Date Expiration Date Visits Requested Visits Authorized [id number] Pending Review PCP Requested Referral Auto-Generate d Referral 04/03/2025 1 1 Specialty Diagnoses / Procedures Referred By Contac t Referred To Contact Podiatry Diagnoses Pain of left heel Procedures CONSULT TO PODIATRY OFFICE/OUTPATIENT [facility] MDM 60 MINUTES [employer], [employer] [address] [facility] [place] [address] Referral ID Status Reason Start Date Expiration Date Visits Requested Visits Authorized [id number] Pending Review PCP Requested Referral 4 05/27/2025 1 1 Specialty Diagnoses / Procedures Referred By Contac t Referred To Contact XR IMAGING Diagnoses Pain of left heel Procedures XR FOOT GENERAL 3V AP/LAT/OBL LEFT RADEX FOOT COMPLETE MINIMUM 3 VIEWS [employer], [employer] [address] [facility] [place], [place] [address] [place] [address] Referral ID Status Reason Start Date Expiration Date V isits Requested Visits Authorized [id number] Closed Auto-Generate d Referral 05/27/2024 06/26/2025 1 1 Additional Source Comments INFORMATION SOURCE (unrecogn ized section and content) DATE CREATED AUTHOR 12/06/2017 [facility] DATE CREATED AUTHOR AUTHOR'S ORGANIZ ATION 12/06/2017 [facility] DATE CREATED AUTHOR AUTHOR'S ORGANIZ ATION 09/01/[address] [facility] DATE CREATED AUTHOR AUTHOR'S ORGANIZ ATION 03/18/2019 [facility] DATE CREATED AUTHOR AUTHOR'S ORGANIZ ATION 07/08/2020 [facility] DATE CREATED AUTHOR AUTHOR'S ORGANIZ ATION 08/21/2020 [facility] DATE CREATED AUTHOR AUTHOR'S ORGANIZ ATION 07/16/2021 [facility] DATE CREATED AUTHOR AUTHOR'S ORGANIZ ATION 09/04/2021 [employer] DATE CREATED AUTHOR AUTHOR'S ORGANIZ ATION 05/18/2023 [facility] DATE CREATED AUTHOR AUTHOR'S ORGANIZ ATION 01/29/2025 [facility] DATE CREATED AUTHOR AUTHOR'S ORGANIZ ATION 01/30/2025 [facility] DATE CREATED AUTHOR AUTHOR'S ORGANIZ ATION 02/02/2025 [facility] Reason for Visit (unrecogniz ed section and content) Reason Comments PT Discharge Specialty Diagnoses / Procedures Referred By Contac t Referred To Contact [facility] Diagnoses Hip pain, left Chronic bilateral low back pain with left-sided sciatica Procedures CONSULT TO PHYSICAL THERAPY PHYSICAL THERAPY EVALUATION HIGH COMPLEX 45 MINS Gabriela Linda MD [address] [place] [address] [facility] [address] [address] Referral ID Status Reason Start Date Expiration Date V isits Requested Visits Authorized [id number] Authorized 06/17/2022 06/16/2023 99 99 Reason Comments Follow-up 6 mo f/u. Chest Pain pt c/o mid sternum c hest pressure after exerting herself. Symptoms are relieved after resting. Reason Comments Pre-op Exam Pre Op ov w/ EKG tod ay --Colonoscopy scheduled for 07/29 Reason Comments Follow-up c/o chest pain, rt n [place], low back pain, lt arm pain on 02/10. one NTG for relief. no new sx as of today Reason Onset Date Comments Refill Request 01/09/2022 Reason Comments Reason Comments Follow Up Bump on left knee th at affects sleep Reason Comments OV notes Request Reason Comments Orders Reason Comments CMN Reason Comments Refill Request Reason Comments Medication Refill Reason Comments Medication Follow-up Reason Comments New Patient Reason Comments Results Reason Comments PT Eval Specialty Diagnoses / Procedures Referred By Contac t Referred To Contact [facility] Diagnoses Hip pain, left Chronic bilateral low back pain with left-sided sciatica Procedures CONSULT TO PHYSICAL THERAPY PHYSICAL THERAPY EVALUATION HIGH COMPLEX 45 MINS Gabriela Linda MD [address] [place] [address] [facility] [place] [address] [place] [address] Reason Comments Physical Therapy Reason Onset Date Comments Refill Request 01/14/2023 Reason Comments Patient Update Appointment Patient Question Reason Comments Patient Update Reason Comments Vomiting diaphoretic Musculoskeletal Problem Aching pains Headache Diarrhea Reason Comments Results Appointment Reason Comments ER F/U Removal of stitches Reason Comments Appointment Download Pap Therapy follow Up Reason Comments New Patient Patient is seeing a new doc and this is her yearly visit. Specialty Diagnoses / Procedures Referred By Contac t Referred To Contact Neurology / SLEEP DISORDERS Diagnoses RLS/ former patient of Dr Concepcion Procedures OFFICE/OUTPATIENT [facility] MDM 60-74 MINUTES NEW NI SLEEP Self Rita Delgado MD [address] [place] [address] Referral ID Status Reason Start Date Expiration Date Visits Re quested Visits Authorized [id number] Closed 01/28/2023 01/29/2024 1 1 Reason Comments Follow Up 3 month follow up. Reason Comments Injection Questions Reason Comments Anticoagulation Reason Comments New Patient Frequent falls Low Back Pain Hip Pain Left radiates into l eg Specialty Diagnoses / Procedures Referred By Contac t Referred To Contact Pain Management / PAIN MANAGEMENT Diagnoses Chronic midline low back pain with sciatica, sciatica laterality unspecified Acute bilateral low back pain with left-sided sciatica Procedures CONSULT TO PAIN MGT OFFICE/OUTPATIENT [facility] MDM 60-74 MINUTES Gabriela Linda MD [address] [place] [address] Baylee Colin APRN.[facility] [address] [place] [address] Referral ID Status Reason Start Date Expiration Date V isits Requested Visits Authorized [id number] Closed PCP Requested Referral 03/06/2023 03/06/2024 1 1 Reason Comments 3 month follow up Reason Onset Date Comments Refill Request 04/10/2023 Medication Problem 04/10/2023 Reason Onset Date Comments Refill Request 04/10/[address] Specialty Diagnoses / Procedures Referred By Contac t Referred To Contact CT IMAGING Diagnoses Chronic midline low back pain with sciatica, sciatica laterality unspecified Acute bilateral low back pain with left-sided sciatica Procedures CT LUMBAR SPINE WO IVCON CT LUMBAR SPINE W/O CONTRAST MATERIAL Gabriela Linda MD [address] [place] [address] [place] [address] Referral ID Status Reason Start Date Expiration Date V isits Requested Visits Authorized [id number] Closed Auto-Generate d Referral 02/20/2023 03/21/2024 1 1 Specialty Diagnoses / Procedures Referred By Contac t Referred To Contact MR IMAGING Diagnoses Acute bilateral low back pain with left-sided sciatica Procedures MRI LUMBAR SPINE WO IVCON MRI SPINAL CANAL LUMBAR W/O CONTRAST MATERIAL Gabriela Linda MD [address] [place] [address] Mr Imaging [place] [address] Referral ID Status Reason Start Date Expiration Date V isits Requested Visits Authorized [id number] Closed Auto-Generate d Referral 01/18/2023 02/17/2024 1 1 Specialty Diagnoses / Procedures Referred By Contac t Referred To Contact Diagnoses NSTEMI (non-ST elevated myocardial infarction) (CMS/HCC) (HCC) NSTEMI Procedures . Chris Licona MD [address] [place] [address] Ach 1c Cv P[facility] [address] [place] [phone] Referral ID Status Reason Start Date Expiration Date Visits Re quested Visits Authorized [id number] 1 Reason Onset Date Comments Refill Request 05/02/2023 Reason Comments Hospital Follow-up Specialty Diagnoses / Procedures Referred By Contac t Referred To Contact Nurse Practitioner Acute Care / Cardiology Diagnoses NSTEMI s/p hospital - [facility]/appt conf,pt,djt Procedures HOSPITAL FOLLOW UP Gabriela Linda MD [address] [place] [address] Radhika Bustamante, GUIDE DOG TRAINER - NUTRITION CLUB AMBASSADOR [address] [place] [address] [place] [id number] Referral ID Status Reason Start Date Expiration Date Visits Requested Visits Authorized [id number] Authorized Eval and Treat 05/06/2023 05/06/2024 1 99 Reason Comments Hospital F/U Reason Onset Date Comments Discuss Labs 05/15/2023 Reason Comments Shortness of Breath Reason Comments Cough Headache, nausea and vomiting since yesterday. Reason Comments 4 wk follow up Reason Onset Date Comments Refill Request 08/05/2023 Reason Comments Appointment DOWNLOAD PAP THERAPY FOLLOW UP Reason Comments Results Reason Comments Appointment Reason Comments Established Patient Follow Up Specialty Diagnoses / Procedures Referred By Cliff lubin Referred To Contact Neurology / SLEEP DISORDERS Diagnoses RLS (restless legs syndrome) Obstructive sleep apnea Procedures OFFICE/OUTPATIENT ESTABLISHED HIGH MDM 40 MIN EST SLEEP ADULT Rita Delgado MD [address] [place] [address] Rita Delgado MD [address] [place] [address] Referral ID Status Reason Start Date Expiration Date V isits Requested Visits Authorized [id number] Authorized 08/07/2023 06/16/2024 99 99 Reason Onset Date Comments Refill Request 09/08/2023 Reason Comments Knee Pain Right - fell Saturda y and patient thinks she tore meniscus again. Reason Onset Date Comments Refill Request 10/08/2023 Reason Onset Date Comments ACM JOSE RAMON RN 10/24/2023 ED utilizatio n review per request of payor Reason Comments F/U 3 Month Reason Onset Date Comments Refill Request 11/04/2023 Reason Onset Date Comments Refill Request 11/14/2023 Reason Onset Date Comments Refill Request 11/26/2023 Reason Onset Date Comments Allied Health Visit 12/09/2023 Medication A dherence Outreach Reason Comments medication list Reason Comments CPAP Compliance Summary 90 day ( 4 - 12/23/2023) Reason Comments Sleep Apnea Reason Comments Results Mammogram Reason Onset Date Comments Refill Request 12/25/2023 Reason Comments PAP Rx Faxed DME: [facility] Reason Comments Follow Up 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 Reason Comments F/U 6 months Reason Comments New Primary Care Pharmacy Appt. 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 [address] Referral ID Status Reason Start Date Expiration Date V isits Requested Visits Authorized [id number] Closed PCP Requested Referral Auto-Generated Referral 05/13/2024 06/16/2024 1 1 Reason Comments New Pain Specialty Diagnoses / Procedures Referred By Contac t Referred To Contact Podiatry / PODIATRY Diagnoses Pain of left heel Procedures CONSULT TO PODIATRY OFFICE/OUTPATIENT NEW HIGH MDM 60 MINUTES PodlogarAnay APRN.NUTRITION CLUB AMBASSADOR [address] [place] [address] Podi [facility] [address] [place] [address] Referral ID Status Reason Start Date Expiration Date Visits Re quested Visits Authorized [id number] Closed 06/09/2024 06/16/2025 1 1 Reason Comments Established Patient Patient states she i s having lower back pain, and pain in Bilateral legs. Specialty Diagnoses / Procedures Referred By Contac t Referred To Contact Pain Management / PAIN MANAGEMENT Diagnoses Back pain new pt back pain Procedures OFFICE/OUTPATIENT NEW SF MDM 15 MINUTES OFFICE/OUTPATIENT NEW LOW MDM 30 MINUTES OFFICE/OUTPATIENT NEW MODERATE MDM 45 MINUTES OFFICE/OUTPATIENT NEW HIGH MDM 60 MINUTES NEW PATIENT Self PrebishBaylee APRN.NUTRITION CLUB AMBASSADOR [address] [place] [address] Referral ID Status Reason Start Date Expiration Date Visits Re quested Visits Authorized [id number] Closed 06/17/2024 06/16/2025 1 1 Reason Comments Anticoagulation Faxed anticag letter Reason Comments Injections questions Reason Onset Date Comments Refill Request 07/14/2024 Reason Onset Date Comments Refill Request 07/17/2024 Reason Comments Diabetes Follow up Reason Comments Acute Visit URI Reason Comments Procedure ilesi Back Pain Lower - bilateral - left is worse Specialty Diagnoses / Procedures Referred By Contac t Referred To Contact Pain Management / PAIN MANAGEMENT Diagnoses Other intervertebral disc degeneration, lumbar region with discogenic back pain and lower extremity pain Radiculopathy, lumbar region ILESI L3-4 Procedures NJX DX/THER SBST INTRLMNR LMBR/SAC W/IMG GDN PROCEDURE Mallory Jones, GUIDE DOG TRAINER.NUTRITION CLUB AMBASSADOR [address] [address] Phone: tel: fax: Trenton Seaman MD [address] [facility] [address] [place] [address] Phone: tel: fax: Referral ID Status Reason Start Date Expiration Date V isits Requested Visits Authorized [id number] Authorized 08/24/2024 11/14/2024 2 2 Reason Comments Appointment ILESI Reason Onset Date Comments Refill Request 08/31/2024 Reason Onset Date Comments Refill Request 10/05/2024 Reason Comments Generalized pain Reason Comments Pain Generalized all over but worse in bilateral arms Insomnia Reason Onset Date Comments Refill Request 10/08/2024 Reason Onset Date Comments Refill Request 10/20/2024 Reason Comments Medication Problem Reason Comments ED Follow-up Was told had concuss ion from fall she had. Having headaches still some vomiting and vision changes. Sees [facility] and is due to go back. Went to [facility] ER. Reason Comments Insurance Authorization Reason Comments Follow Up Saw Gastro at [facility] Reason Onset Date Comments Refill Request 12/24/2024 Reason Comments Orders Reason Onset Date Comments Refill Request 01/04/2025 Specialty Diagnoses / Procedures Referred By Contac t Referred To Contact [facility] Diagnoses Falls frequently Procedures CONSULT TO PHYSICAL THERAPY PHYSICAL THERAPY EVALUATION HIGH COMPLEX 45 MINS Podlogar, Anay, GUIDE DOG TRAINER.NUTRITION CLUB AMBASSADOR [address] [place] [address] Phone: tel: fax: [facility] [address] [place] [address] Referral ID Status Reason Start Date Expiration Date V isits Requested Visits Authorized [id number] Closed Auto-Generate d Referral 08/15/2024 06/16/2025 1 1 Reason Onset Date Comments Refill Request 01/15/2025 Specialty Diagnoses / Procedures Referred By Contac t Referred To Contact CT IMAGING Diagnoses Dizziness Headache, unspecified headache type Visual changes Abnormal MRA, brain Procedures CTA HEAD WO/W IVCON CT ANGIOGRAPHY HEAD W/CONTRAST/NONCONTRAST Podlogar, Anay, GUIDE DOG TRAINER.NUTRITION CLUB AMBASSADOR [address] [place] [address] Phone: tel: fax: [place] [address] Referral ID Status Reason Start Date Expiration Date V isits Requested Visits Authorized [id number] Closed Auto-Generate d Referral 01/12/2025 03/13/2025 1 1 Reason Comments ER F/U Reason Onset Date Comments Results 01/25/2025 Reason Comments OT EVAL Specialty Diagnoses / Procedures Referred By Contac t Referred To Contact SPEECH THERAPY Diagnoses Positive SHUN (antinuclear antibody) Myalgias Procedures OCCUPATIONAL THERAPY EVAL HIGH COMPLEX 60 MINS Carmencita Caldera MD [address] [place] [address] Phone: tel: fax: Traci Jean, OT/L, OTD [address] [place] [address] Phone: tel: Referral ID Status Reason Start Date Expiration Date Visits Requested Visits Authorized [id number] Pending Review Auto-Generat ed Referral 12/09/2024 06/16/2025 1 1 Assessment & Plan Note - Masood Sanchez MD - 07/23/2019 1:34 PM ESTAssessment & Plan Note - Raisa Rao MD - 02/16/2020 2:07 PM EDT Miscellaneous Notes (unrecog nized section and content) Associated Problem(s): Cardiac angina (HCC) Patient with planned colonoscopy and probable Lap Jerry in near future to be done at [facility]. Patient has rare stable angina which is been very well controlled ever since she had the EECP in winter 2018. Previous coronary events as outlined above August 2017. History of normal LV function. History of fluid retention from time to time uses furosemide and metolazone used to twice a month of June 2019 chronic Plavix therapy. History of intolerance to aspirin. EKG unremarkable July 23, 2019. Patient moderate stable cardiac risk for planned procedure in the near future okay to stop the Plavix for 7 to 10 days as needed medications in the perioperative period. Patient is cleared for planned colonoscopy and possible lap jerry in the near future. documented in this encounter Associated Problem(s): Diabetes mellitus (HCC) Glucose is followed through primary care. Associated Problem(s): Coronary artery disease She does have occasional chest and arm discomfort which is nitrate responsive. She states she takes nitroglycerin every 6 to 8 weeks. I did recommend a SPECT to assess for inferior wall ischemia but she is actually satisfied with her current functional capacity does not wish to have a study at this time. I believe this is a reasonable approach. I did offer isosorbide mononitrate in addition to as needed sublingual nitroglycerin but she states she could not tolerate this medication. She will call us if she notices any acceleration of her current symptoms. Associated Problem(s): Hyperlipidemia She is apparently intolerant to all statin medications. She is on red yeast rice. Her last LDL was not at goal. This is being followed by primary care. Associated Problem(s): Hypertension Her blood pressure is well controlled on current medical therapy. She is actually not on any antihypertensive agents at this time. She is not taking any diuretic either. Associated Problem(s): Obstructive sleep apnea treated with continuous positive airway pressure (CPAP) She is compliant with CPAP therapy. documented in this encounter Care Teams (unrecognized sec tion and content) Motel Keeper Relationship Specialty Start Date End Date Carlos Clarke MD [address] [place] [id number] PCP - General Family Medicine 10/06/15 Motel Keeper Relationship Specialty Start Date End Date Carlos Clarke MD PCP - General Family Practice 03/15/15 Motel Keeper Relationship Specialty Start Date End Date Carlos Clarke MD PCP - General Family Practice 03/15/15 Motel Keeper Relationship Specialty Start Date End Date Carlos Clarke MD PCP - General Family Practice 03/15/15 Motel Keeper Relationship Specialty Start Date End Date Carlos Clarke MD PCP - General Family Practice 03/15/15 Motel Keeper Relationship Specialty Start Date End Date Carlos Clarke MD PCP - General Family Practice 03/15/15 Motel Keeper Relationship Specialty Start Date End Date Carlos Clarke MD PCP - General Family Practice 03/15/15 Motel Keeper Relationship Specialty Start Date End Date Carlos Clarke MD PCP - General Family Medicine 03/15/15 Motel Keeper Relationship Specialty Start Date End Date Carlos Clarke MD PCP - General Family Medicine 03/15/15 Motel Keeper Relationship Specialty Start Date End Date Carlos Clarke MD [address] [place] [address] PCP - General Family Medicine 10/06/15 Motel Keeper Relationship Specialty Start Date End Date Carlos Clarke MD [address] [place] [address] PCP - General Family Medicine 10/06/15 Motel Keeper Relationship Specialty Start Date End Date Carlos Clarke MD PCP - General Family Medicine 03/15/15 Motel Keeper Relationship Specialty Start Date End Date Carlos Clarke MD PCP - General Family Medicine 03/15/15 Team Status: Active Member Role Status Dates Dr. Carlos Clarke MD Family Provider Active Dr. Redd Linda MD Primary Care Provider Acti ve Team Status: Inactive Member Role Status Dates Dr. Dot Garces MD Primary Care Provider, Referri ng Provider Active Sofy Snow STUD SETTER, STUD SETTER-C Attending Provider Active Team Status: Inactive Member Role Status Dates Dr. Dot Garces MD Primary Care Provider Active Sofy Snow STUD SETTER, STUD SETTER-C Attending Provider, Referring P rovider Active Team Status: Active Member Role Status Dates Dr. Redd Linda MD Primary Care Provider Acti ve Dr. Larry Osorio MD Attending Provider Active Team Status: Inactive Member Role Status Dates Sofy Snow STUD SETTER, STUD SETTER-C Attending Provider, Referring P rovider Active Dr. Redd Linda MD Primary Care Provider Acti ve Motel Keeper Relationship Specialty Start Date End Date Gabriela Linda MD [address] [place], [place] [id number] PCP - General Family Medicine 12/03/22 Motel Keeper Relationship Specialty Start Date End Date Gabriela Linda MD [address] [place], [place] [id number] PCP - General Family Medicine 12/03/22 Motel Keeper Relationship Specialty Start Date End Date Gabriela Linda MD [address] [facility] [place] [place] [address] PCP - General Family Medicine 12/03/22 Motel Keeper Relationship Specialty Start Date End Date Gabriela Linda MD [address] [place] [address] PCP - General Family Medicine 12/03/22 Motel Keeper Relationship Specialty Start Date End Date Gabriela Linda MD [address] [place] [address] PCP - General Family Medicine 12/03/22 Motel Keeper Relationship Specialty Start Date End Date Gabriela Linda MD [address] [place] [address] PCP - General Family Medicine 12/03/22 Motel Keeper Relationship Specialty Start Date End Date Gabriela Linda MD [address] [place] [address] PCP - General Family Medicine 12/03/22 Motel Keeper Relationship Specialty Start Date End Date Gabriela Linda MD [address] [facility] [place] [place] [address] PCP - General Family Medicine 12/03/22 Motel Keeper Relationship Specialty Start Date End Date Gabriela Linda MD [address] [facility] [place] [place] [address] PCP - General Family Medicine 12/03/22 Motel Keeper Relationship Specialty Start Date End Date Gabriela Linda MD [address] [facility] [place] [place] [address] PCP - General Family Medicine 12/03/22 Motel Keeper Relationship Specialty Start Date End Date Gabriela Linda MD [address] [facility] [place] [place] [address] PCP - General Family Medicine 12/03/22 Motel Keeper Relationship Specialty Start Date End Date Gabriela Linda MD [address] [facility] [place] [place] [address] PCP - General Family Medicine 12/03/22 Motel Keeper Relationship Specialty Start Date End Date Gabriela Linda MD [address] [facility] [place] [place] [address] PCP - General Family Medicine 12/03/22 Motel Keeper Relationship Specialty Start Date End Date Gabriela Linda MD [address] [facility] [place] [place] [address] PCP - General Family Medicine 12/03/22 Motel Keeper Relationship Specialty Start Date End Date Gabriela Linda MD [address] [facility] [place] [place] [address] PCP - General Family Medicine 12/03/22 Motel Keeper Relationship Specialty Start Date End Date Gabriela Linda MD [address] [facility] [place] [place] [address] PCP - General Family Medicine 12/03/22 Motel Keeper Relationship Specialty Start Date End Date Gabriela Linda MD [address] [facility] [place] [place] [address] PCP - General Family Medicine 12/03/22 Motel Keeper Relationship Specialty Start Date End Date Gabriela Linda MD [address] [facility] [place] [place] [address] PCP - General Family Medicine 12/03/22 Motel Keeper Relationship Specialty Start Date End Date Gabriela Linda MD [address] [facility] [place], [place] [id number] PCP - General Family Medicine 12/03/22 Motel Keeper Relationship Specialty Start Date End Date Gabriela Linda MD [address] [facility] [place] [place] [address] PCP - General Family Medicine 12/03/22 Motel Keeper Relationship Specialty Start Date End Date Gabriela Linda MD [address] [facility] [place] [place] [address] PCP - General Family Medicine 12/03/22 Motel Keeper Relationship Specialty Start Date End Date Gabriela Linda MD [address] [facility] [place], [place] [address] PCP - General Family Medicine 12/03/22 Team Status: Inactive Member Role Status Dates Dr. Redd Linda MD Primary Care Provider, Ref erring Provider Active Dr. Larry Osorio MD Active Sofy Snow STUD SETTER, STUD SETTER-C Attending Provider Active Team Status: Inactive Member Role Status Dates Dr. Redd Linda MD Primary Care Provider Acti ve Dr. Mihir Urena DO Attending Provider, Emergency P jose Active Team Status: Inactive Member Role Status Dates Dr. Redd Linda MD Primary Care Provider Acti ve Dr. Usha Santos MD Emergency Provider Active Team Status: Active Member Role Status Dates Dr. Redd Linda MD Primary Care Provider Acti ve Dr. Usha Santos MD Emergency Provider Active Dr. Chris Edge DO Admit Provider, Attending Provider, Other Provider Active Dr. Joan Mai MD Other Provider Active Team Status: Active Member Role Status Dates Dr. Redd Linda MD Primary Care Provider Acti ve Dr. Usha Santos MD Emergency Provider Active Dr. Chris Edge , DO Admit Provider, Other Provide r Active Dr. Joan Mai MD Attending Provider, Othe r Provider Active Team Status: Active Member Role Status Dates Dr. Redd Linda MD Primary Care Provider Acti ve Dr. Usha Santos MD Emergency Provider Active Dr. Chris Edge , DO Admit Provider, Other Provide r Active Dr. Joan Mai MD Other Provider Active Dr. Helio Yuen , DO Other Provider Active Dr. Lanre Luis MD Attending Provider Active Team Status: Inactive Member Role Status Dates Dr. Redd Linda MD Primary Care Provider Acti ve Dr. Usha Santos MD Emergency Provider Active Dr. Chris Edge , DO Admit Provider, Other Provide r Active Dr. Joan Mai MD Other Provider Active Dr. Helio Yuen , DO Attending Provider Active Motel Keeper Relationship Specialty Start Date End Date Gabriela Linda MD [address] [place] [address] PCP - General Family Medicine 04/29/23 Motel Keeper Relationship Specialty Start Date End Date Gabriela Linda MD [address] [place] [address] PCP - General Family Medicine 12/03/22 Motel Keeper Relationship Specialty Start Date End Date Gabriela Linda MD [address] [place] [id number] PCP - General Family Medicine 04/29/23 Motel Keeper Relationship Specialty Start Date End Date Gabriela Linda MD [address] [place] [id number] PCP - General Family Medicine 04/29/23 Motel Keeper Relationship Specialty Start Date End Date Gabriela Linda MD [address] [place] [address] PCP - General Family Medicine 12/03/22 Motel Keeper Relationship Specialty Start Date End Date Gabriela Linda MD [address] [place], [place] [address] PCP - General Family Medicine 04/29/23 Motel Keeper Relationship Specialty Start Date End Date Gabriela Linda MD [address] [place], [place] [id number] PCP - General Family Medicine 12/03/22 Team Status: Active Member Role Status Dates Dr. Redd Linda MD Primary Care Provider Acti ve Dr. Usha Santos MD Emergency Provider Active Dr. Chris Edge , Admit Provider, Other Provide r Active Dr. Joan Mai MD Other Provider Active Dr. Helio Yuen , DO Attending Provider, Other Provider Active Team Status: Active Member Role Status Dates Dr. Redd Linda MD Primary Care Provider Acti ve Dr. Lanre Luis MD Attending Provider Active Team Status: Active Member Role Status Dates Dr. Redd Linda MD Primary Care Provider Acti ve Dr. Larry Osorio MD Attending Provider, Referring Pro vider Active Team Status: Active Member Role Status Dates Dr. Redd Linda MD Primary Care Provider Acti ve Dr. Nacho Helm , Emergency Provider Active Dr. Larry Osorio MD Attending Provider Active Team Status: Inactive Member Role Status Dates Dr. Redd Linda MD Primary Care Provider Acti ve Dr. Nacho Helm , DO Emergency Provider Active Team Status: Inactive Member Role Status Dates Dr. Redd Linda MD Primary Care Provider, Ref erring Provider Active Sofy Snow STUD SETTER, STUD SETTER-C Attending Provider Active Team Status: Active Member Role Status Dates Dr. Redd Linda MD Primary Care Provider Acti ve Dr. Dima Henriquez , DO Emergency Provider Active Dr. Alpa Cooney MD Admit Provider, Other Provider Active Dr. Helio Yuen , DO Attending Provider, Other Provider Active Team Status: Active Member Role Status Dates Dr. Redd Linda MD Primary Care Provider Acti ve Dr. Dima Henriquez , DO Emergency Provider Active Dr. Alpa Cooney MD Admit Provider, Other Provider Active Dr. Helio Yuen , DO Other Provider Active Dr. Hugo Alcaraz , DO Attending Provider Active Team Status: Active Member Role Status Dates Dr. Redd Linda MD Primary Care Provider Acti ve Dr. Hugo Alcaraz , DO Attending Provider Active Team Status: Inactive Member Role Status Dates Dr. Redd Linda MD Primary Care Provider Acti ve Dr. Dima Henriquez , DO Emergency Provider Active Dr. Alpa Cooney MD Admit Provider, Other Provider Active Dr. Helio Yuen , DO Attending Provider Active Team Status: Inactive Member Role Status Dates Dr. Redd Linda MD Primary Care Provider Acti ve Dr. Nacho Helm , DO Attending Provider, Emergency Pro vider Active Team Status: Active Member Role Status Dates Dr. Redd Linda MD Primary Care Provider Acti ve Dr. Larry Osorio MD Attending Provider Active Dr. Helio Yuen , Referring Provider Active Team Status: Inactive Member Role Status Dates Dr. Redd Linda MD Primary Care Provider Acti ve Dr. Larry Osorio MD Attending Provider, Referring Pro vider Active Team Status: Active Member Role Status Dates Dr. Redd Linda MD Primary Care Provider Acti ve Dr. Dima Henriquez , DO Emergency Provider Active Dr. Alpa Cooney MD Admit Provider, Other Provider Active Dr. Helio Yuen , DO Referring Provider, Other Provider Active Dr. Hugo Alcaraz , Attending Provider Active Team Status: Active Member Role Status Dates Dr. Redd Linda MD Primary Care Provider Acti ve Dr. Hugo Alcaraz , Attending Provider Active Dr. Helio Yuen , Referring Provider Active Team Status: Inactive Member Role Status Dates Dr. Redd Linda MD Primary Care Provider Acti ve Sofy Snow STUD SETTER, STUD SETTER-C Attending Provider, Referring Joao garcia Active Motel Keeper Relationship Specialty Start Date End Date Gabriela Linda MD [address] [place] [address] PCP - General Family Medicine 12/03/22 Motel Keeper Relationship Specialty Start Date End Date Gabriela Linda MD [address] [place], [place] 29[address] [phone] PCP - General Family Medicine 12/03/22 Motel Keeper Relationship Specialty Start Date End Date Gabriela Linda MD [address] [place], [place] [address] [phone] PCP - General Family Medicine 12/03/22 Motel Keeper Relationship Specialty Start Date End Date Carlos Clarke MD PCP - General Family Medicine 03/15/15 12/02/22 Gabriela Linda MD [address] [place] [address] PCP - General Family Medicine 12/03/22 Team Status: Inactive Member Role Status Dates Dr. Redd Linda MD Primary Care Provider, Ref erring Provider Active Trenton Packer STUD SETTER, STUD SETTER-C Attending Provider Active Motel Keeper Relationship Specialty Start Date End Date Gabriela Linda MD [address] [place] [address] PCP - General Family Medicine 12/03/22 Motel Keeper Relationship Specialty Start Date End Date Gabriela Linda MD [address] [place] [address] PCP - General Family Medicine 12/03/22 Motel Keeper Relationship Specialty Start Date End Date Gabriela Linda MD [address] [facility] [place] [place] [address] PCP - General Family Medicine 12/03/22 Motel Keeper Relationship Specialty Start Date End Date Gabriela Linda MD [address] [facility] [place] [place] [address] PCP - General Family Medicine 12/03/22 Motel Keeper Relationship Specialty Start Date End Date Gabriela Linda MD [address] [facility] [place] [place] [address] PCP - General Family Medicine 12/03/22 Motel Keeper Relationship Specialty Start Date End Date Gabriela Linda MD [address] [facility] [place] [place] [address] PCP - General Family Medicine 12/03/22 Motel Keeper Relationship Specialty Start Date End Date Gabriela Linda MD [address] [facility] [place] [place] [address] PCP - General Family Medicine 12/03/22 Motel Keeper Relationship Specialty Start Date End Date Gabriela Linda MD [address] [facility] [place] [place] [address] PCP - General Family Medicine 12/03/22 Motel Keeper Relationship Specialty Start Date End Date Gabriela Linda MD [address] [facility] [place] [place] [address] PCP - General Family Medicine 12/03/22 Motel Keeper Relationship Specialty Start Date End Date Gabriela Linda MD [address] [facility] [place] [place] [address] PCP - General Family Medicine 12/03/22 Motel Keeper Relationship Specialty Start Date End Date Gabriela Linda MD [address] [facility] [place] [place] [address] PCP - General Family Medicine 12/03/22 Motel Keeper Relationship Specialty Start Date End Date Gabriela Linda MD [address] [facility] [place] [place] [address] PCP - General Family Medicine 12/03/22 Motel Keeper Relationship Specialty Start Date End Date Gabriela Linda MD [address] [place] [address] PCP - General Family Medicine 12/03/22 Motel Keeper Relationship Specialty Start Date End Date Gabriela Linda MD [address] [facility] [place] [place] [address] PCP - General Family Medicine 12/03/22 Motel Keeper Relationship Specialty Start Date End Date Gabriela Linda MD [address] [facility] [place] [place] [address] PCP - General Family Medicine 12/03/22 Motel Keeper Relationship Specialty Start Date End Date Gabriela Linda MD [address] [facility] [place] [place] [address] PCP - General Family Medicine 12/03/22 Motel Keeper Relationship Specialty Start Date End Date Gabriela Linda MD [address] [facility] [place] [place] [address] PCP - General Family Medicine 12/03/22 Anay Lawrence APRN.CNP [address] [facility] [place] [place] [address] [facility] Motel Keeper Relationship Specialty Start Date End Date Gabriela Linda MD [address] [place] [address] PCP - General Family Medicine 12/03/22 Podlogar, Anay GUIDE DOG TRAINER.NUTRITION CLUB AMBASSADOR [address] [place] [address] [facility] 05/23/24 Motel Keeper Relationship Specialty Start Date End Date Gabriela Linda MD [address] [place] [address] PCP - General Family Medicine 12/03/22 Podlogar, Anay, GUIDE DOG TRAINER.NUTRITION CLUB AMBASSADOR [address] [place] [address] [facility] 05/[facility]/24 Motel Keeper Relationship Specialty Start Date End Date Gabriela Linda MD [address] [place] [address] PCP - General Family Medicine 12/03/22 Podlogar, Anay, GUIDE DOG TRAINER.NUTRITION CLUB AMBASSADOR [address] [place] [address] [facility] 05/23/24 Motel Keeper Relationship Specialty Start Date End Date Gabriela Linda MD [address] [place] [address] PCP - General Family Medicine 12/03/22 Podlogar, Anay, GUIDE DOG TRAINER.NUTRITION CLUB AMBASSADOR [address] [place] [address] [facility] 05/23/24 Motel Keeper Relationship Specialty Start Date End Date Gabriela Linda MD [address] [place] [address] PCP - General Family Medicine 12/03/22 Podlogar, JESICA CuevaN.NUTRITION CLUB AMBASSADOR [address] [facility] [address] [facility] 05/23/24 Motel Keeper Relationship Specialty Start Date End Date Gabriela Linda MD [address] [facility] [place] [address] PCP - General Family Medicine 12/03/22 Podlogar, COOPER Cueva.NUTRITION CLUB AMBASSADOR [address] [place] [address] [facility] 05/23/24 Motel Keeper Relationship Specialty Start Date End Date Gabriela Linda MD [address] [facility] [address] PCP - General Family Medicine 12/03/22 Podlogar, JESICA CuevaN.NUTRITION CLUB AMBASSADOR [address] [place] [address] [facility] 05/23/24 Motel Keeper Relationship Specialty Start Date End Date Gabriela Linda MD [address] [place] [address] PCP - General Family Medicine 12/03/22 Podlogar, Anay, GUIDE DOG TRAINER.NUTRITION CLUB AMBASSADOR [address] [place] [address] [facility] 05/23/24 Motel Keeper Relationship Specialty Start Date End Date Gabriela Linda MD [address] [place] [address] PCP - General Family Medicine 12/03/22 Podlogar, Anay, GUIDE DOG TRAINER.NUTRITION CLUB AMBASSADOR [address] [place] [address] [facility] 05/23/24 Motel Keeper Relationship Specialty Start Date End Date Gabriela Linda MD [address] [place] [address] PCP - General Family Medicine 12/03/22 Podlogar, Anay, GUIDE DOG TRAINER.NUTRITION CLUB AMBASSADOR [address] [place] [address] [facility] 05/23/24 Motel Keeper Relationship Specialty Start Date End Date Gabriela Linda MD [address] [place] [address] PCP - General Family Medicine 12/03/22 Podlogar, Anay, GUIDE DOG TRAINER.NUTRITION CLUB AMBASSADOR [address] [place] [address] [facility] 05/23/24 Motel Keeper Relationship Specialty Start Date End Date Gabriela Linda MD [address] [place] [address] PCP - General Family Medicine 12/03/22 Podlogar, Anay, GUIDE DOG TRAINER.NUTRITION CLUB AMBASSADOR [address] [place] [address] [facility] 05/23/24 Eyad Victoria GUIDE DOG TRAINER.NUTRITION CLUB AMBASSADOR [address] [place] [address] [facility] 08/28/24 Motel Keeper Relationship Specialty Start Date End Date Gabriela Linda MD [address] [facility] [place] [place] [address] PCP - General Family Medicine 12/03/22 PodlogarAnay GUIDE DOG TRAINER.NUTRITION CLUB AMBASSADOR [address] [place] [address] [facility] 05/23/24 Eyad Victoria GUIDE DOG TRAINER.NUTRITION CLUB AMBASSADOR [address] [place] [address] [facility] 08/28/24 Motel Keeper Relationship Specialty Start Date End Date Gabriela Linda MD [address] [place] [address] PCP - General Family Medicine 12/03/22 PodlogarAnay GUIDE DOG TRAINER.NUTRITION CLUB AMBASSADOR [address] [facility] [place] [place] [address] [facility] Medicine 05/23/24 Eyad Victoria GUIDE DOG TRAINER.NUTRITION CLUB AMBASSADOR [address] [place] [address] [facility] 09/07/24 Motel Keeper Relationship Specialty Start Date End Date Gabriela Linda MD [address] [facility] [place] [place] [address] PCP - General Family Medicine 12/03/22 PodlogarAnay APRN.NUTRITION CLUB AMBASSADOR [address] [facility] [place] [place] [address] [facility] 05/23/24 Eyad Victoria APRN.NUTR[employer] CLUB AMBASSADOR [address] [place] [address] [facility] 09/07/24 Motel Keeper Relationship Specialty Start Date End Date Gabriela Linda MD [address] [place] [address] PCP - General Family Medicine 12/03/22 Podlogar, Anay GUIDE DOG TRAINER.NUTRITION CLUB AMBASSADOR [address] [place] [address] [facility] 05/23/24 Eyad Victoria GUIDE DOG TRAINER.NUTRITION CLUB AMBASSADOR [address] [place] [address] [facility] 09/07/24 Motel Keeper Relationship Specialty Start Date End Date Gabriela Linda MD [address] [place] [address] PCP - General Family Medicine 12/03/22 Podlogar, Anay, GUIDE DOG TRAINER.NUTRITION CLUB AMBASSADOR [address] [facility] [place] [place] [address] [facility] 05/23/24 Eyad Victoria APRN.NUTRITION CLUB AMBASSADOR [address] [place] [address] [facility] 09/07/24 Motel Keeper Relationship Specialty Start Date End Date Gabriela Linda MD [address] [place] [address] PCP - General Family Medicine 12/03/22 PodlogarAnay APRN.NUTRITION CLUB AMBASSADOR [address] [place] [address] [facility] 05/23/24 Eyad Victoria APRN.NUTRITION CLUB AMBASSADOR [address] [place] [address] [facility] 09/07/24 Motel Keeper Relationship Specialty Start Date End Date Gabriela Linda MD [address] [place] [address] PCP - General Family Medicine 12/03/22 PodlogarAnay APRN.NUTRITION CLUB AMBASSADOR [address] [place] [address] [facility] 05/23/24 Eyad Victoria APRN.NUTRITION CLUB AMBASSADOR [address] [place] [address] [facility] 09/07/24 Motel Keeper Relationship Specialty Start Date End Date Gabriela Linda MD [address] [place] [address] PCP - General Family Medicine 12/03/22 SolomonlogarAnay APRN.NUTRITION CLUB AMBASSADOR [address] [place] [address] [facility] 05/23/24 Eyad Victoria APRN.NUTR[employer] CLUB AMBASSADOR [address] [place], [place] [id number] [facility] 09/07/24 Team Status: Active Member Role Status Dates Dr. Redd Linda MD Primary Care Provider Acti ve Team Status: Inactive Member Role Status Dates Dr. Redd Linda MD Referring Provider Active Start: August 19, 2024 End: August 19, 2024 Trenton Packer STUD SETTER, STUD SETTER-C Attending Provider Active S tart: August 19, 2024 End: August 19, 2024 Team Status: Inactive Member Role Status Dates Dr. Redd Linda MD Primary Care Provider Acti ve Start: November 03, 2024 End: November 03, 2024 Dr. Jamal Salcedo DO Emergency Provider Active Start : November 03, 2024 End: November 03, 2024 Motel Keeper Relationship Specialty Start Date End Date Gabriela Linda MD [address] [facility] [place] [place] [address] PCP - General Family Medicine 12/03/22 PodlogarAnay APRN.NUTRITION CLUB AMBASSADOR [address] [facility] [place] [place] [address] [facility] Medicine 05/23/24 Eyad Victoria APRN.NUTRITION CLUB AMBASSADOR [address] [place], [place] [address] [facility] 11/26/24 Motel Keeper Relationship Specialty Start Date End Date Gabriela Linda MD [address] [facility] [place] [place] [address] PCP - General Family Medicine 12/03/22 PodAnay ramos APRN.NUTRITION CLUB AMBASSADOR [address] [facility] [place] [place] [address] [facility] Medicine 05/23/24 Eyad Victoria APRN.NUTRITION CLUB AMBASSADOR [address] [place], [place] [address] Slider As[facility] 11/26/24 Team Status: Active Member Role/Relationship Status Dates Dr. Redd Linda MD Primary Care Provider Acti ve Team Status: Inactive Member Role/Relationship Status Dates Dr. Redd Linda MD Referring Provider Active Start: August 19, 2024 End: August 19, 2024 Trenton Packer STUD SETTER, STUD SETTER-C Attending Provider Active S tart: August 19, 2024 End: August 19, 2024 Team Status: Inactive Member Role/Relationship Status Dates Dr. Redd Linda MD Primary Care Provider Acti ve Start: November 03, 2024 End: November 03, 2024 Dr. Jamal Salcedo DO Attending Provider Active Start : November 03, 2024 End: November 03, 2024 Dr. Jamal Salcedo DO Emergency Provider Active Start : November 03, 2024 End: November 03, 2024 Team Status: Inactive Member Role/Relationship Status Dates Dr. Redd Linda MD Primary Care Provider Acti ve Start: December 14, 2024 End: December 14, 2024 Dr. Redd Linda MD Referring Provider Active Start: December 14, 2024 End: December 14, 2024 Usha Barrett NP-C Attending Provider Active Start: December 14, 2024 End: December 14, 2024 Motel Keeper Relationship Specialty Start Date End Date Gabriela Linda MD [address] [place], [place] [id number] PCP - General Family Medicine 12/03/22 PodlogarAnay APRN.NUTRITION CLUB AMBASSADOR [address] [place] [id number] [facility] 05/23/24 Eyad Victoria APRN.NUTRITION CLUB AMBASSADOR [address] [place], [place] [id number] [facility] 11/26/24 Team Status: Active Member Role/Relationship Status Dates Dr. Redd Linda MD Primary Care Provider Acti ve Start: December 14, 2024 LINDA Kurtz Attending Provider Active Start: December 14, 2024 LINDA Kurtz Referring Provider Active Start: December 14, 2024 Team Status: Inactive Member Role/Relationship Status Dates Dr. Redd Linda MD Primary Care Provider Acti ve Start: December 16, 2024 End: December 16, 2024 Dr. Redd Linda MD Referring Provider Active Start: December 16, 2024 End: December 16, 2024 Trenton Packer NP, STUD SETTER-C Attending Provider Active S tart: December 16, 2024 End: December 16, 2024 Team Status: Inactive Member Role/Relationship Status Dates Dr. Redd Linda MD Primary Care Provider Acti ve Start: December 14, 2024 End: December 14, 2024 LINDA Kurtz Attending Provider Active Start: December 14, 2024 End: December 14, 2024 LINDA Kurtz Referring Provider Active Start: December 14, 2024 End: December 14, 2024 Motel Keeper Relationship Specialty Start Date End Date Gabriela Linda MD [address] [place], [place] [address] PCP - General Family Medicine 12/03/22 PodlogarAnay APRN.NUTRITION CLUB AMBASSADOR [address] [place], [place] [address] [facility] 05/23/24 Eyad Victoria APRN.NUTRITION CLUB AMBASSADOR [address] [place], [place] [address] [facility] 11/26/24 Motel Keeper Relationship Specialty Start Date End Date Gabriela Linda MD [address] [place], [place] [address] PCP - General Family Medicine 12/03/22 PodlogarAnay APRN.NUTRITION CLUB AMBASSADOR [address] [facility] [place] [place] [address] [facility] 05/23/24 Eyad Victoria APRN.NUTRITION CLUB AMBASSADOR [address] [place] [address] [facility] 11/26/24 Motel Keeper Relationship Specialty Start Date End Date Gabriela Linda MD [address] [place] [address] PCP - General Family Medicine 12/03/22 PodlogarAnay APRN.NUTRITION CLUB AMBASSADOR [address] [place] [address] [facility] 05/23/24 Eyad Victoria GUIDE DOG TRAINER.NUTRITION CLUB AMBASSADOR [address] [place] [address] [facility] 11/26/24 Motel Keeper Relationship Specialty Start Date End Date Gabriela Linda MD [address] [place] [address] PCP - General Family Medicine 12/03/22 PodlogarAnay, GUIDE DOG TRAINER.NUTR[employer]UB AMBASSADOR [address] [place] [address] [facility] 05/23/24 Eyad Victoria APRN.NUTRITION CLUB AMBASSADOR [address] [place] [address] [facility] 11/26/24 Motel Keeper Relationship Specialty Start Date End Date Gabriela Linda MD [address] [place] [address] PCP - General Family Medicine 12/03/22 PodlogarAnay APRN.NUTRITION CLUB AMBASSADOR [address] [place] [address] [facility] 05/23/24 Eyad Victoria APRN.NUTRITION CLUB AMBASSADOR [address] [place] [address] [facility] 11/26/24 Motel Keeper Relationship Specialty Start Date End Date Gabriela Linda MD [address] [place] [address] PCP - General Family Medicine 12/03/22 PodlogarAnay APRN.NUTRITION CLUB AMBASSADOR [address] [place] [address] [facility] 05/23/24 Eyad Victoria APRN.NUTR[employer] CLUB AMBASSADOR [address] [place] [address] Slider As[facility]er [facility] 11/26/24 Motel Keeper Relationship Specialty Start Date End Date Gabriela Linda MD [address] [place] [address] PCP - General Family Medicine 12/03/22 SolomonlogarAnay APRN.NUTRITION CLUB AMBASSADOR [address] [place] [address] [facility] 05/23/24 Eyad Victoria APRN.NUTR[employer] CLUB AMBASSADOR [address] [place] [address] [facility] 11/26/24 Motel Keeper Relationship Specialty Start Date End Date Gabriela Linda MD [address] [place] [address] PCP - General Family Medicine 12/03/22 Podlogar, JESICA CuevaN.NUTRITION CLUB AMBASSADOR [address] [place] [address] [facility] 05/23/24 Eyad Victoria APRN.NUTRITION CLUB AMBASSADOR [address] [place] [address] [facility] 11/26/24 Motel Keeper Relationship Specialty Start Date End Date Gabriela Linda MD [address] [place] [address] PCP - General Family Medicine 12/03/22 Podlogar, Anay GUIDE DOG TRAINER.NUTRITION CLUB AMBASSADOR [address] [place] [address] [facility] 05/23/24 Eyad Victoria GUIDE DOG TRAINER.NUTRITION CLUB AMBASSADOR [address] [place] [address] [facility] 11/26/24 Motel Keeper Relationship Specialty Start Date End Date Gabriela Linda MD [address] [place] [address] PCP - General Family Medicine 12/03/22 Podlogar, Anay, GUIDE DOG TRAINER.NUTR[employer] CLUB AMBASSADOR [address] [place] [address] [facility] 05/23/24 Eyad VictoriaCOOPER.NUTRITION CLUB AMBASSADOR [address] [place] [address] [facility] 11/26/24 Team Status: Inactive Member Role/Relationship Status Dates Dr. Redd Linda MD Primary Care Provider Acti ve Start: November 03, 2024 End: November 03, 2024 Dr. Jamal Salcedo DO Attending Provider Active Start : November 03, 2024 End: November 03, 2024 Dr. Jamal Salcedo DO Emergency Provider Active Start : November 03, 2024 End: November 03, 2024 Team Status: Inactive Member Role/Relationship Status Dates Dr. Redd Linda MD Primary Care Provider Acti ve Start: December 14, 2024 End: December 14, 2024 Dr. Redd Linda MD Referring Provider Active Start: December 14, 2024 End: December 14, 2024 SHERRY KurtzC Attending Provider Active Start: December 14, 2024 End: December 14, 2024 Team Status: Inactive Member Role/Relationship Status Dates Dr. Redd Linda MD Primary Care Provider Acti ve Start: December 14, 2024 End: December 14, 2024 LINDA Kurtz Attending Provider Active Start: December 14, 2024 End: December 14, 2024 LINDA Kurtz Referring Provider Active Start: December 14, 2024 End: December 14, 2024 Team Status: Inactive Member Role/Relationship Status Dates Dr. Redd Linda MD Primary Care Provider Acti ve Start: December 16, 2024 End: December 16, 2024 Dr. Redd Linda MD Referring Provider Active Start: December 16, 2024 End: December 16, 2024 Trenton Packer STUD SETTER, STUD SETTER-C Attending Provider Active S tart: December 16, 2024 End: December 16, 2024 Team Status: Active Member Role/Relationship Status Dates Dr. Redd Linda MD Primary Care Provider Acti ve Start: January 13, 2025 Trenton Packer STUD SETTER, STUD SETTER-C Attending Provider Active S tart: January 13, 2025 Trenton Packer STUD SETTER, STUD SETTER-C Referring Provider Active S tart: January 13, 2025 Team Status: Inactive Member Role/Relationship Status Dates Dr. Redd Linda MD Primary Care Provider Acti ve Start: January 13, 2025 End: January 13, 2025 Dr. Redd Linda MD Referring Provider Active Start: January 13, 2025 End: January 13, 2025 Trenton Packer STUD SETTER, STUD SETTER-C Attending Provider Active S tart: January 13, 2025 End: January 13, 2025 Motel Keeper Relationship Specialty Start Date End Date Gabriela Linda MD [address] [place], [place] [address] PCP - General Family Medicine 12/03/22 Anay Lawrence GUIDE DOG TRAINER.NUTR[employer]UB AMBASSADOR [address] [place], [place] [id number] [facility] 05/23/24 Eyad Victoria, GUIDE DOG TRAINER.NUTR[employer]UB AMBASSADOR [address] [place], [place] [id number] [facility] Medicine 11/26/24 Team Status: Inactive Member Role/Relationship Status Dates Dr. Redd Linda MD Primary Care Provider Acti ve Start: January 13, 2025 End: January 13, 2025 Trenton Packer STUD SETTER, STUD SETTER-C Attending Provider Active S tart: January 13, 2025 End: January 13, 2025 Trenton Packer STUD SETTER, STUD SETTER-C Referring Provider Active S tart: January 13, 2025 End: January 13, 2025 Team Status: Active Member Role/Relationship Status Dates Dr. Redd Linda MD Primary Care Provider Acti ve Start: January 13, 2025 Dr. Larry Osorio MD Attending Provider Active S tart: January 13, 2025 Trenton Packer STUD SETTER, STUD SETTER-C Referring Provider Active S tart: January 13, 2025 Team Status: Inactive Member Role/Relationship Status Dates Dr. Redd Linda MD Primary Care Provider Acti ve Start: January 13, 2025 End: January 13, 2025 Dr. Redd Linda MD Referring Provider Active Start: January 13, 2025 End: January 13, 2025 Trenton Packer STUD SETTER, STUD SETTER-C Attending Provider Active S tart: January 13, 2025 End: January 13, 2025 Team Status: Active Member Role/Relationship Status Dates Dr. Redd Linda MD Primary Care Provider Acti ve Start: January 21, 2025 Dr. Kai Hernandez , DO Emergency Provider Activ e Start: January 21, 2025 Team Status: Inactive Member Role/Relationship Status Dates Dr. Redd Linda MD Primary Care Provider Acti ve Start: January 21, 2025 End: January 21, 2025 Dr. Kai Hernandez , DO Emergency Provider Activ e Start: January 21, 2025 End: January 21, 2025 Motel Keeper Relationship Specialty Start Date End Date Gabriela Linda MD [address] [place], [place] [address] PCP - General Family Medicine 12/03/22 Podlogar, Anay, GUIDE DOG TRAINER.[employer]TR[employer]UB AMBASSADOR [address] [place], [place] [address] [facility] 05/23/24 Eyad Victoria, GUIDE DOG TRAINER.NUTR[employer]UB AMBASSADOR [address] [place], [place] [id number] [facility] 11/26/24 Motel Keeper Relationship Specialty Start Date End Date Gabriela Linda MD [address] [place], [place] [address] PCP - General Family Medicine 12/03/22 Podlogar, Anay, GUIDE DOG TRAINER.[employer] AMBASSADOR [address] [place], [place] [id number] [facility] 05/23/24 Eyad Victoria APRN.[employer]TR[employer]UB AMBASSADOR [address] [place] [address] [facility] 11/26/24 Motel Keeper Relationship Specialty Start Date End Date Gabriela Linda MD [address] [place] [address] PCP - General Family Medicine 12/03/22 PodlogarAnay GUIDE DOG TRAINER.NUTR[employer] CLUB AMBASSADOR [address] [place] [address] [facility] 05/23/24 Eyad Victoria APRN.NUTR[employer]UB AMBASSADOR [address] [place] [address] [facility] 11/26/24 Motel Keeper Relationship Specialty Start Date End Date Gabriela Linda MD [address] [place] [address] PCP - General Family Medicine 12/03/22 PodlogarAnay, GUIDE DOG TRAINER.NUTR[employer]UB AMBASSADOR [address] [place] [address] [facility] Medicine 05/23/24 Eyad Victoria, GUIDE DOG TRAINER.[employer] AMBASSADOR [address] [place] [address] [facility] 11/26/24 Goals (unrecognized section and content) Goals may be documented in a n alternate sectionGoals may be documented in an alternate sectionGoals may be documented in an alternate sectionGoals may be documented in an alternate sectionGoals may be documented in an alternate sectionGoals may be documented in an alternate sectionGoals may be documented in an alternate sectionGoals may be documented in an alternate sectionGoals may be documented in an alternate sectionGoals may be documented in an alternate sectionGoals may be documented in an alternate sectionGoals may be documented in an alternate sectionGoals may be documented in an alternate section Source Comments (unrecognize d section and content) In the event this informatio n is protected by the Federal Confidentiality of Alcohol and Drug Abuse Patient Records regulations: The Federal rules restrict any use of the information to criminally investigate or prosecute any alcohol or drug abuse patient.[facility] the event this information is protected by the Federal Confidentiality of Alcohol and Drug Abuse Patient Records regulations: The Federal rules restrict any use of the information to criminally investigate or prosecute any alcohol or drug abuse patient.[facility]In the event this information is protected by the Federal Confidentiality of Alcohol and Drug Abuse Patient Records regulations: The Federal rules restrict any use of the information to criminally investigate or prosecute any alcohol or drug abuse patient.[facility]In the event this information is protected by the Federal Confidentiality of Alcohol and Drug Abuse Patient Records regulations: The Federal rules restrict any use of the information to criminally investigate or prosecute any alcohol or drug abuse patient.[facility]In the event this information is protected by the Federal Confidentiality of Alcohol and Drug Abuse Patient Records regulations: The Federal rules restrict any use of the information to criminally investigate or prosecute any alcohol or drug abuse patient.[facility]In the event this information is protected by the Federal Confidentiality of Alcohol and Drug Abuse Patient Records regulations: The Federal rules restrict any use of the information to criminally investigate or prosecute any alcohol or drug abuse patient.[facility]In the event this information is protected by the Federal Confidentiality of Alcohol and Drug Abuse Patient Records regulations: The Federal rules restrict any use of the information to criminally investigate or prosecute any alcohol or drug abuse patient.[facility]In the event this information is protected by the Federal Confidentiality of Alcohol and Drug Abuse Patient Records regulations: The Federal rules restrict any use of the information to criminally investigate or prosecute any alcohol or drug abuse patient.[facility]In the event this information is protected by the Federal Confidentiality of Alcohol and Drug Abuse Patient Records regulations: The Federal rules restrict any use of the information to criminally investigate or prosecute any alcohol or drug abuse patient.[facility]In the event this information is protected by the Federal Confidentiality of Alcohol and Drug Abuse Patient Records regulations: The Federal rules restrict any use of the information to criminally investigate or prosecute any alcohol or drug abuse patient.[facility]In the event this information is protected by the Federal Confidentiality of Alcohol and Drug Abuse Patient Records regulations: The Federal rules restrict any use of the information to criminally investigate or prosecute any alcohol or drug abuse patient.[facility]In the event this information is protected by the Federal Confidentiality of Alcohol and Drug Abuse Patient Records regulations: The Federal rules restrict any use of the information to criminally investigate or prosecute any alcohol or drug abuse patient.[facility]In the event this information is protected by the Federal Confidentiality of Alcohol and Drug Abuse Patient Records regulations: The Federal rules restrict any use of the information to criminally investigate or prosecute any alcohol or drug abuse patient.[facility]In the event this information is protected by the Federal Confidentiality of Alcohol and Drug Abuse Patient Records regulations: The Federal rules restrict any use of the information to criminally investigate or prosecute any alcohol or drug abuse patient.[facility]In the event this information is protected by the Federal Confidentiality of Alcohol and Drug Abuse Patient Records regulations: The Federal rules restrict any use of the information to criminally investigate or prosecute any alcohol or drug abuse patient.[facility]In the event this information is protected by the Federal Confidentiality of Alcohol and Drug Abuse Patient Records regulations: The Federal rules restrict any use of the information to criminally investigate or prosecute any alcohol or drug abuse patient.[facility]In the event this information is protected by the Federal Confidentiality of Alcohol and Drug Abuse Patient Records regulations: The Federal rules restrict any use of the information to criminally investigate or prosecute any alcohol or drug abuse patient.[facility]In the event this information is protected by the Federal Confidentiality of Alcohol and Drug Abuse Patient Records regulations: The Federal rules restrict any use of the information to criminally investigate or prosecute any alcohol or drug abuse patient.[facility]In the event this information is protected by the Federal Confidentiality of Alcohol and Drug Abuse Patient Records regulations: The Federal rules restrict any use of the information to criminally investigate or prosecute any alcohol or drug abuse patient.[facility]In the event this information is protected by the Federal Confidentiality of Alcohol and Drug Abuse Patient Records regulations: The Federal rules restrict any use of the information to criminally investigate or prosecute any alcohol or drug abuse patient.[facility]In the event this information is protected by the Federal Confidentiality of Alcohol and Drug Abuse Patient Records regulations: The Federal rules restrict any use of the information to criminally investigate or prosecute any alcohol or drug abuse patient.[facility]In the event this information is protected by the Federal Confidentiality of Alcohol and Drug Abuse Patient Records regulations: The Federal rules restrict any use of the information to criminally investigate or prosecute any alcohol or drug abuse patient.[facility]In the event this information is protected by the Federal Confidentiality of Alcohol and Drug Abuse Patient Records regulations: The Federal rules restrict any use of the information to criminally investigate or prosecute any alcohol or drug abuse patient.[facility]In the event this information is protected by the Federal Confidentiality of Alcohol and Drug Abuse Patient Records regulations: The Federal rules restrict any use of the information to criminally investigate or prosecute any alcohol or drug abuse patient.[facility]In the event this information is protected by the Federal Confidentiality of Alcohol and Drug Abuse Patient Records regulations: The Federal rules restrict any use of the information to criminally investigate or prosecute any alcohol or drug abuse patient.[facility]In the event this information is protected by the Federal Confidentiality of Alcohol and Drug Abuse Patient Records regulations: The Federal rules restrict any use of the information to criminally investigate or prosecute any alcohol or drug abuse patient.[facility]In the event this information is protected by the Federal Confidentiality of Alcohol and Drug Abuse Patient Records regulations: The Federal rules restrict any use of the information to criminally investigate or prosecute any alcohol or drug abuse patient.[facility]In the event this information is protected by the Federal Confidentiality of Alcohol and Drug Abuse Patient Records regulations: The Federal rules restrict any use of the information to criminally investigate or prosecute any alcohol or drug abuse patient.[facility]In the event this information is protected by the Federal Confidentiality of Alcohol and Drug Abuse Patient Records regulations: The Federal rules restrict any use of the information to criminally investigate or prosecute any alcohol or drug abuse patient.[facility]In the event this information is protected by the Federal Confidentiality of Alcohol and Drug Abuse Patient Records regulations: The Federal rules restrict any use of the information to criminally investigate or prosecute any alcohol or drug abuse patient.[facility]In the event this information is protected by the Federal Confidentiality of Alcohol and Drug Abuse Patient Records regulations: The Federal rules restrict any use of the information to criminally investigate or prosecute any alcohol or drug abuse patient.[facility] the event this information is protected by the Federal Confidentiality of Alcohol and Drug Abuse Patient Records regulations: The Federal rules restrict any use of the information to criminally investigate or prosecute any alcohol or drug abuse patient.[facility]In the event this information is protected by the Federal Confidentiality of Alcohol and Drug Abuse Patient Records regulations: The Federal rules restrict any use of the information to criminally investigate or prosecute any alcohol or drug abuse patient.[facility]In the event this information is protected by the Federal Confidentiality of Alcohol and Drug Abuse Patient Records regulations: The Federal rules restrict any use of the information to criminally investigate or prosecute any alcohol or drug abuse patient.[facility]In the event this information is protected by the Federal Confidentiality of Alcohol and Drug Abuse Patient Records regulations: The Federal rules restrict any use of the information to criminally investigate or prosecute any alcohol or drug abuse patient.[facility]In the event this information is protected by the Federal Confidentiality of Alcohol and Drug Abuse Patient Records regulations: The Federal rules restrict any use of the information to criminally investigate or prosecute any alcohol or drug abuse patient.[facility]In the event this information is protected by the Federal Confidentiality of Alcohol and Drug Abuse Patient Records regulations: The Federal rules restrict any use of the information to criminally investigate or prosecute any alcohol or drug abuse patient.[facility]In the event this information is protected by the Federal Confidentiality of Alcohol and Drug Abuse Patient Records regulations: The Federal rules restrict any use of the information to criminally investigate or prosecute any alcohol or drug abuse patient.[facility]In the event this information is protected by the Federal Confidentiality of Alcohol and Drug Abuse Patient Records regulations: The Federal rules restrict any use of the information to criminally investigate or prosecute any alcohol or drug abuse patient.[facility]In the event this information is protected by the Federal Confidentiality of Alcohol and Drug Abuse Patient Records regulations: The Federal rules restrict any use of the information to criminally investigate or prosecute any alcohol or drug abuse patient.[facility]In the event this information is protected by the Federal Confidentiality of Alcohol and Drug Abuse Patient Records regulations: The Federal rules restrict any use of the information to criminally investigate or prosecute any alcohol or drug abuse patient.[facility]In the event this information is protected by the Federal Confidentiality of Alcohol and Drug Abuse Patient Records regulations: The Federal rules restrict any use of the information to criminally investigate or prosecute any alcohol or drug abuse patient.[facility]In the event this information is protected by the Federal Confidentiality of Alcohol and Drug Abuse Patient Records regulations: The Federal rules restrict any use of the information to criminally investigate or prosecute any alcohol or drug abuse patient.[facility]In the event this information is protected by the Federal Confidentiality of Alcohol and Drug Abuse Patient Records regulations: The Federal rules restrict any use of the information to criminally investigate or prosecute any alcohol or drug abuse patient.[facility]In the event this information is protected by the Federal Confidentiality of Alcohol and Drug Abuse Patient Records regulations: The Federal rules restrict any use of the information to criminally investigate or prosecute any alcohol or drug abuse patient.[facility]In the event this information is protected by the Federal Confidentiality of Alcohol and Drug Abuse Patient Records regulations: The Federal rules restrict any use of the information to criminally investigate or prosecute any alcohol or drug abuse patient.[facility]In the event this information is protected by the Federal Confidentiality of Alcohol and Drug Abuse Patient Records regulations: The Federal rules restrict any use of the information to criminally investigate or prosecute any alcohol or drug abuse patient.[facility]In the event this information is protected by the Federal Confidentiality of Alcohol and Drug Abuse Patient Records regulations: The Federal rules restrict any use of the information to criminally investigate or prosecute any alcohol or drug abuse patient.[facility]In the event this information is protected by the Federal Confidentiality of Alcohol and Drug Abuse Patient Records regulations: The Federal rules restrict any use of the information to criminally investigate or prosecute any alcohol or drug abuse patient.[facility]In the event this information is protected by the Federal Confidentiality of Alcohol and Drug Abuse Patient Records regulations: The Federal rules restrict any use of the information to criminally investigate or prosecute any alcohol or drug abuse patient.[facility]In the event this information is protected by the Federal Confidentiality of Alcohol and Drug Abuse Patient Records regulations: The Federal rules restrict any use of the information to criminally investigate or prosecute any alcohol or drug abuse patient.[facility]In the event this information is protected by the Federal Confidentiality of Alcohol and Drug Abuse Patient Records regulations: The Federal rules restrict any use of the information to criminally investigate or prosecute any alcohol or drug abuse patient.[facility]In the event this information is protected by the Federal Confidentiality of Alcohol and Drug Abuse Patient Records regulations: The Federal rules restrict any use of the information to criminally investigate or prosecute any alcohol or drug abuse patient.[facility]In the event this information is protected by the Federal Confidentiality of Alcohol and Drug Abuse Patient Records regulations: The Federal rules restrict any use of the information to criminally investigate or prosecute any alcohol or drug abuse patient.[facility]In the event this information is protected by the Federal Confidentiality of Alcohol and Drug Abuse Patient Records regulations: The Federal rules restrict any use of the information to criminally investigate or prosecute any alcohol or drug abuse patient.[facility]In the event this information is protected by the Federal Confidentiality of Alcohol and Drug Abuse Patient Records regulations: The Federal rules restrict any use of the information to criminally investigate or prosecute any alcohol or drug abuse patient.[facility]In the event this information is protected by the Federal Confidentiality of Alcohol and Drug Abuse Patient Records regulations: The Federal rules restrict any use of the information to criminally investigate or prosecute any alcohol or drug abuse patient.[facility]In the event this information is protected by the Federal Confidentiality of Alcohol and Drug Abuse Patient Records regulations: The Federal rules restrict any use of the information to criminally investigate or prosecute any alcohol or drug abuse patient.[facility]In the event this information is protected by the Federal Confidentiality of Alcohol and Drug Abuse Patient Records regulations: The Federal rules restrict any use of the information to criminally investigate or prosecute any alcohol or drug abuse patient.[facility]In the event this information is protected by the Federal Confidentiality of Alcohol and Drug Abuse Patient Records regulations: The Federal rules restrict any use of the information to criminally investigate or prosecute any alcohol or drug abuse patient.[facility]In the event this information is protected by the Federal Confidentiality of Alcohol and Drug Abuse Patient Records regulations: The Federal rules restrict any use of the information to criminally investigate or prosecute any alcohol or drug abuse patient.[facility]In the event this information is protected by the Federal Confidentiality of Alcohol and Drug Abuse Patient Records regulations: The Federal rules restrict any use of the information to criminally investigate or prosecute any alcohol or drug abuse patient.[facility]In the event this information is protected by the Federal Confidentiality of Alcohol and Drug Abuse Patient Records regulations: The Federal rules restrict any use of the information to criminally investigate or prosecute any alcohol or drug abuse patient.[facility]In the event this information is protected by the Federal Confidentiality of Alcohol and Drug Abuse Patient Records regulations: The Federal rules restrict any use of the information to criminally investigate or prosecute any alcohol or drug abuse patient.[facility]In the event this information is protected by the Federal Confidentiality of Alcohol and Drug Abuse Patient Records regulations: The Federal rules restrict any use of the information to criminally investigate or prosecute any alcohol or drug abuse patient.[facility]In the event this information is protected by the Federal Confidentiality of Alcohol and Drug Abuse Patient Records regulations: The Federal rules restrict any use of the information to criminally investigate or prosecute any alcohol or drug abuse patient.[facility]In the event this information is protected by the Federal Confidentiality of Alcohol and Drug Abuse Patient Records regulations: The Federal rules restrict any use of the information to criminally investigate or prosecute any alcohol or drug abuse patient.[facility]In the event this information is protected by the Federal Confidentiality of Alcohol and Drug Abuse Patient Records regulations: The Federal rules restrict any use of the information to criminally investigate or prosecute any alcohol or drug abuse patient.[facility]In the event this information is protected by the Federal Confidentiality of Alcohol and Drug Abuse Patient Records regulations: The Federal rules restrict any use of the information to criminally investigate or prosecute any alcohol or drug abuse patient.[facility]In the event this information is protected by the Federal Confidentiality of Alcohol and Drug Abuse Patient Records regulations: The Federal rules restrict any use of the information to criminally investigate or prosecute any alcohol or drug abuse patient.[facility]In the event this information is protected by the Federal Confidentiality of Alcohol and Drug Abuse Patient Records regulations: The Federal rules restrict any use of the information to criminally investigate or prosecute any alcohol or drug abuse patient.[facility]In the event this information is protected by the Federal Confidentiality of Alcohol and Drug Abuse Patient Records regulations: The Federal rules restrict any use of the information to criminally investigate or prosecute any alcohol or drug abuse patient.[facility]In the event this information is protected by the Federal Confidentiality of Alcohol and Drug Abuse Patient Records regulations: The Federal rules restrict any use of the information to criminally investigate or prosecute any alcohol or drug abuse patient.[facility]In the event this information is protected by the Federal Confidentiality of Alcohol and Drug Abuse Patient Records regulations: The Federal rules restrict any use of the information to criminally investigate or prosecute any alcohol or drug abuse patient.[facility]In the event this information is protected by the Federal Confidentiality of Alcohol and Drug Abuse Patient Records regulations: The Federal rules restrict any use of the information to criminally investigate or prosecute any alcohol or drug abuse patient.[facility]In the event this information is protected by the Federal Confidentiality of Alcohol and Drug Abuse Patient Records regulations: The Federal rules restrict any use of the information to criminally investigate or prosecute any alcohol or drug abuse patient.[facility]In the event this information is protected by the Federal Confidentiality of Alcohol and Drug Abuse Patient Records regulations: The Federal rules restrict any use of the information to criminally investigate or prosecute any alcohol or drug abuse patient.[facility]In the event this information is protected by the Federal Confidentiality of Alcohol and Drug Abuse Patient Records regulations: The Federal rules restrict any use of the information to criminally investigate or prosecute any alcohol or drug abuse patient.[facility]In the event this information is protected by the Federal Confidentiality of Alcohol and Drug Abuse Patient Records regulations: The Federal rules restrict any use of the information to criminally investigate or prosecute any alcohol or drug abuse patient.[facility]In the event this information is protected by the Federal Confidentiality of Alcohol and Drug Abuse Patient Records regulations: The Federal rules restrict any use of the information to criminally investigate or prosecute any alcohol or drug abuse patient.[facility]In the event this information is protected by the Federal Confidentiality of Alcohol and Drug Abuse Patient Records regulations: The Federal rules restrict any use of the information to criminally investigate or prosecute any alcohol or drug abuse patient.[facility] the event this information is protected by the Federal Confidentiality of Alcohol and Drug Abuse Patient Records regulations: The Federal rules restrict any use of the information to criminally investigate or prosecute any alcohol or drug abuse patient.[facility]In the event this information is protected by the Federal Confidentiality of Alcohol and Drug Abuse Patient Records regulations: The Federal rules restrict any use of the information to criminally investigate or prosecute any alcohol or drug abuse patient.[facility]In the event this information is protected by the Federal Confidentiality of Alcohol and Drug Abuse Patient Records regulations: The Federal rules restrict any use of the information to criminally investigate or prosecute any alcohol or drug abuse patient.[facility]In the event this information is protected by the Federal Confidentiality of Alcohol and Drug Abuse Patient Records regulations: The Federal rules restrict any use of the information to criminally investigate or prosecute any alcohol or drug abuse patient.[facility] ClinicIn the event this information is protected by the Federal Confidentiality of Alcohol and Drug Abuse Patient Records regulations: The Federal rules restrict any use of the information to criminally investigate or prosecute any alcohol or drug abuse patient.[facility]In the event this information is protected by the Federal Confidentiality of Alcohol and Drug Abuse Patient Records regulations: The Federal rules restrict any use of the information to criminally investigate or prosecute any alcohol or drug abuse patient.[facility]In the event this information is protected by the Federal Confidentiality of Alcohol and Drug Abuse Patient Records regulations: The Federal rules restrict any use of the information to criminally investigate or prosecute any alcohol or drug abuse patient.[facility]In the event this information is protected by the Federal Confidentiality of Alcohol and Drug Abuse Patient Records regulations: The Federal rules restrict any use of the information to criminally investigate or prosecute any alcohol or drug abuse patient.[facility] ClinicIn the event this information is protected by the Federal Confidentiality of Alcohol and Drug Abuse Patient Records regulations: The Federal rules restrict any use of the information to criminally investigate or prosecute any alcohol or drug abuse patient.[facility] ClinicIn the event this information is protected by the Federal Confidentiality of Alcohol and Drug Abuse Patient Records regulations: The Federal rules restrict any use of the information to criminally investigate or prosecute any alcohol or drug abuse patient.[facility]In the event this information is protected by the Federal Confidentiality of Alcohol and Drug Abuse Patient Records regulations: The Federal rules restrict any use of the information to criminally investigate or prosecute any alcohol or drug abuse patient.[facility] ClinicIn the event this information is protected by the Federal Confidentiality of Alcohol and Drug Abuse Patient Records regulations: The Federal rules restrict any use of the information to criminally investigate or prosecute any alcohol or drug abuse patient.[facility]In the event this information is protected by the Federal Confidentiality of Alcohol and Drug Abuse Patient Records regulations: The Federal rules restrict any use of the information to criminally investigate or prosecute any alcohol or drug abuse patient.[facility] ClinicIn the event this information is protected by the Federal Confidentiality of Alcohol and Drug Abuse Patient Records regulations: The Federal rules restrict any use of the information to criminally investigate or prosecute any alcohol or drug abuse patient.[facility] ClinicIn the event this information is protected by the Federal Confidentiality of Alcohol and Drug Abuse Patient Records regulations: The Federal rules restrict any use of the information to criminally investigate or prosecute any alcohol or drug abuse patient.[facility] ClinicIn the event this information is protected by the Federal Confidentiality of Alcohol and Drug Abuse Patient Records regulations: The Federal rules restrict any use of the information to criminally investigate or prosecute any alcohol or drug abuse patient.[facility]In the event this information is protected by the Federal Confidentiality of Alcohol and Drug Abuse Patient Records regulations: The Federal rules restrict any use of the information to criminally investigate or prosecute any alcohol or drug abuse patient.[facility] ClinicIn the event this information is protected by the Federal Confidentiality of Alcohol and Drug Abuse Patient Records regulations: The Federal rules restrict any use of the information to criminally investigate or prosecute any alcohol or drug abuse patient.[facility] ClinicIn the event this information is protected by the Federal Confidentiality of Alcohol and Drug Abuse Patient Records regulations: The Federal rules restrict any use of the information to criminally investigate or prosecute any alcohol or drug abuse patient.[facility] ClinicIn the event this information is protected by the Federal Confidentiality of Alcohol and Drug Abuse Patient Records regulations: The Federal rules restrict any use of the information to criminally investigate or prosecute any alcohol or drug abuse patient.[facility]In the event this information is protected by the Federal Confidentiality of Alcohol and Drug Abuse Patient Records regulations: The Federal rules restrict any use of the information to criminally investigate or prosecute any alcohol or drug abuse patient.[facility] ClinicIn the event this information is protected by the Federal Confidentiality of Alcohol and Drug Abuse Patient Records regulations: The Federal rules restrict any use of the information to criminally investigate or prosecute any alcohol or drug abuse patient.[facility] ClinicIn the event this information is protected by the Federal Confidentiality of Alcohol and Drug Abuse Patient Records regulations: The Federal rules restrict any use of the information to criminally investigate or prosecute any alcohol or drug abuse patient.[facility] ClinicIn the event this information is protected by the Federal Confidentiality of Alcohol and Drug Abuse Patient Records regulations: The Federal rules restrict any use of the information to criminally investigate or prosecute any alcohol or drug abuse patient.[facility] ClinicIn the event this information is protected by the Federal Confidentiality of Alcohol and Drug Abuse Patient Records regulations: The Federal rules restrict any use of the information to criminally investigate or prosecute any alcohol or drug abuse patient.[facility] ClinicIn the event this information is protected by the Federal Confidentiality of Alcohol and Drug Abuse Patient Records regulations: The Federal rules restrict any use of the information to criminally investigate or prosecute any alcohol or drug abuse patient.[facility] ClinicIn the event this information is protected by the Federal Confidentiality of Alcohol and Drug Abuse Patient Records regulations: The Federal rules restrict any use of the information to criminally investigate or prosecute any alcohol or drug abuse patient.[facility] ClinicIn the event this information is protected by the Federal Confidentiality of Alcohol and Drug Abuse Patient Records regulations: The Federal rules restrict any use of the information to criminally investigate or prosecute any alcohol or drug abuse patient.[facility] ClinicIn the event this information is protected by the Federal Confidentiality of Alcohol and Drug Abuse Patient Records regulations: The Federal rules restrict any use of the information to criminally investigate or prosecute any alcohol or drug abuse patient.[facility] ClinicIn the event this information is protected by the Federal Confidentiality of Alcohol and Drug Abuse Patient Records regulations: The Federal rules restrict any use of the information to criminally investigate or prosecute any alcohol or drug abuse patient.[facility] ClinicIn the event this information is protected by the Federal Confidentiality of Alcohol and Drug Abuse Patient Records regulations: The Federal rules restrict any use of the information to criminally investigate or prosecute any alcohol or drug abuse patient.[facility] ClinicIn the event this information is protected by the Federal Confidentiality of Alcohol and Drug Abuse Patient Records regulations: The Federal rules restrict any use of the information to criminally investigate or prosecute any alcohol or drug abuse patient.[facility] ClinicIn the event this information is protected by the Federal Confidentiality of Alcohol and Drug Abuse Patient Records regulations: The Federal rules restrict any use of the information to criminally investigate or prosecute any alcohol or drug abuse patient.[facility] ClinicIn the event this information is protected by the Federal Confidentiality of Alcohol and Drug Abuse Patient Records regulations: The Federal rules restrict any use of the information to criminally investigate or prosecute any alcohol or drug abuse patient.[facility] ClinicIn the event this information is protected by the Federal Confidentiality of Alcohol and Drug Abuse Patient Records regulations: The Federal rules restrict any use of the information to criminally investigate or prosecute any alcohol or drug abuse patient.[facility] ClinicIn the event this information is protected by the Federal Confidentiality of Alcohol and Drug Abuse Patient Records regulations: The Federal rules restrict any use of the information to criminally investigate or prosecute any alcohol or drug abuse patient.[facility] ClinicIn the event this information is protected by the Federal Confidentiality of Alcohol and Drug Abuse Patient Records regulations: The Federal rules restrict any use of the information to criminally investigate or prosecute any alcohol or drug abuse patient.[facility] ClinicIn the event this information is protected by the Federal Confidentiality of Alcohol and Drug Abuse Patient Records regulations: The Federal rules restrict any use of the information to criminally investigate or prosecute any alcohol or drug abuse patient.[facility] ClinicIn the event this information is protected by the Federal Confidentiality of Alcohol and Drug Abuse Patient Records regulations: The Federal rules restrict any use of the information to criminally investigate or prosecute any alcohol or drug abuse patient.[facility] ClinicIn the event this information is protected by the Federal Confidentiality of Alcohol and Drug Abuse Patient Records regulations: The Federal rules restrict any use of the information to criminally investigate or prosecute any alcohol or drug abuse patient.[facility] ClinicIn the event this information is protected by the Federal Confidentiality of Alcohol and Drug Abuse Patient Records regulations: The Federal rules restrict any use of the information to criminally investigate or prosecute any alcohol or drug abuse patient.[facility] ClinicIn the event this information is protected by the Federal Confidentiality of Alcohol and Drug Abuse Patient Records regulations: The Federal rules restrict any use of the information to criminally investigate or prosecute any alcohol or drug abuse patient.[facility] ClinicIn the event this information is protected by the Federal Confidentiality of Alcohol and Drug Abuse Patient Records regulations: The Federal rules restrict any use of the information to criminally investigate or prosecute any alcohol or drug abuse patient.[facility] ClinicIn the event this information is protected by the Federal Confidentiality of Alcohol and Drug Abuse Patient Records regulations: The Federal rules restrict any use of the information to criminally investigate or prosecute any alcohol or drug abuse patient.[facility] ClinicIn the event this information is protected by the Federal Confidentiality of Alcohol and Drug Abuse Patient Records regulations: The Federal rules restrict any use of the information to criminally investigate or prosecute any alcohol or drug abuse patient.[facility] ClinicIn the event this information is protected by the Federal Confidentiality of Alcohol and Drug Abuse Patient Records regulations: The Federal rules restrict any use of the information to criminally investigate or prosecute any alcohol or drug abuse patient.[facility] ClinicIn the event this information is protected by the Federal Confidentiality of Alcohol and Drug Abuse Patient Records regulations: The Federal rules restrict any use of the information to criminally investigate or prosecute any alcohol or drug abuse patient.[facility] ClinicIn the event this information is protected by the Federal Confidentiality of Alcohol and Drug Abuse Patient Records regulations: The Federal rules restrict any use of the information to criminally investigate or prosecute any alcohol or drug abuse patient.[facility]In the event this information is protected by the Federal Confidentiality of Alcohol and Drug Abuse Patient Records regulations: The Federal rules restrict any use of the information to criminally investigate or prosecute any alcohol or drug abuse patient.[facility] ClinicIn the event this information is protected by the Federal Confidentiality of Alcohol and Drug Abuse Patient Records regulations: The Federal rules restrict any use of the information to criminally investigate or prosecute any alcohol or drug abuse patient.[facility] the event this information is protected by the Federal Confidentiality of Alcohol and Drug Abuse Patient Records regulations: The Federal rules restrict any use of the information to criminally investigate or prosecute any alcohol or drug abuse patient.[facility]In the event this information is protected by the Federal Confidentiality of Alcohol and Drug Abuse Patient Records regulations: The Federal rules restrict any use of the information to criminally investigate or prosecute any alcohol or drug abuse patient.[facility]In the event this information is protected by the Federal Confidentiality of Alcohol and Drug Abuse Patient Records regulations: The Federal rules restrict any use of the information to criminally investigate or prosecute any alcohol or drug abuse patient.[facility] ClinicIn the event this information is protected by the Federal Confidentiality of Alcohol and Drug Abuse Patient Records regulations: The Federal rules restrict any use of the information to criminally investigate or prosecute any alcohol or drug abuse patient.[facility] ClinicIn the event this information is protected by the Federal Confidentiality of Alcohol and Drug Abuse Patient Records regulations: The Federal rules restrict any use of the information to criminally investigate or prosecute any alcohol or drug abuse patient.[facility]In the event this information is protected by the Federal Confidentiality of Alcohol and Drug Abuse Patient Records regulations: The Federal rules restrict any use of the information to criminally investigate or prosecute any alcohol or drug abuse patient.[facility]In the event this information is protected by the Federal Confidentiality of Alcohol and Drug Abuse Patient Records regulations: The Federal rules restrict any use of the information to criminally investigate or prosecute any alcohol or drug abuse patient.[facility]In the event this information is protected by the Federal Confidentiality of Alcohol and Drug Abuse Patient Records regulations: The Federal rules restrict any use of the information to criminally investigate or prosecute any alcohol or drug abuse patient.[facility]In the event this information is protected by the Federal Confidentiality of Alcohol and Drug Abuse Patient Records regulations: The Federal rules restrict any use of the information to criminally investigate or prosecute any alcohol or drug abuse patient.[facility]In the event this information is protected by the Federal Confidentiality of Alcohol and Drug Abuse Patient Records regulations: The Federal rules restrict any use of the information to criminally investigate or prosecute any alcohol or drug abuse patient.[facility]In the event this information is protected by the Federal Confidentiality of Alcohol and Drug Abuse Patient Records regulations: The Federal rules restrict any use of the information to criminally investigate or prosecute any alcohol or drug abuse patient.[facility]In the event this information is protected by the Federal Confidentiality of Alcohol and Drug Abuse Patient Records regulations: The Federal rules restrict any use of the information to criminally investigate or prosecute any alcohol or drug abuse patient.[facility]In the event this information is protected by the Federal Confidentiality of Alcohol and Drug Abuse Patient Records regulations: The Federal rules restrict any use of the information to criminally investigate or prosecute any alcohol or drug abuse patient.[facility]In the event this information is protected by the Federal Confidentiality of Alcohol and Drug Abuse Patient Records regulations: The Federal rules restrict any use of the information to criminally investigate or prosecute any alcohol or drug abuse patient.[facility]In the event this information is protected by the Federal Confidentiality of Alcohol and Drug Abuse Patient Records regulations: The Federal rules restrict any use of the information to criminally investigate or prosecute any alcohol or drug abuse patient.[facility]In the event this information is protected by the Federal Confidentiality of Alcohol and Drug Abuse Patient Records regulations: The Federal rules restrict any use of the information to criminally investigate or prosecute any alcohol or drug abuse patient.[facility]In the event this information is protected by the Federal Confidentiality of Alcohol and Drug Abuse Patient Records regulations: The Federal rules restrict any use of the information to criminally investigate or prosecute any alcohol or drug abuse patient.[facility]In the event this information is protected by the Federal Confidentiality of Alcohol and Drug Abuse Patient Records regulations: The Federal rules restrict any use of the information to criminally investigate or prosecute any alcohol or drug abuse patient.[facility]In the event this information is protected by the Federal Confidentiality of Alcohol and Drug Abuse Patient Records regulations: The Federal rules restrict any use of the information to criminally investigate or prosecute any alcohol or drug abuse patient.[facility]In the event this information is protected by the Federal Confidentiality of Alcohol and Drug Abuse Patient Records regulations: The Federal rules restrict any use of the information to criminally investigate or prosecute any alcohol or drug abuse patient.[facility]In the event this information is protected by the Federal Confidentiality of Alcohol and Drug Abuse Patient Records regulations: The Federal rules restrict any use of the information to criminally investigate or prosecute any alcohol or drug abuse patient.[facility]In the event this information is protected by the Federal Confidentiality of Alcohol and Drug Abuse Patient Records regulations: The Federal rules restrict any use of the information to criminally investigate or prosecute any alcohol or drug abuse patient.[facility]In the event this information is protected by the Federal Confidentiality of Alcohol and Drug Abuse Patient Records regulations: The Federal rules restrict any use of the information to criminally investigate or prosecute any alcohol or drug abuse patient.[facility]In the event this information is protected by the Federal Confidentiality of Alcohol and Drug Abuse Patient Records regulations: The Federal rules restrict any use of the information to criminally investigate or prosecute any alcohol or drug abuse patient.[facility]In the event this information is protected by the Federal Confidentiality of Alcohol and Drug Abuse Patient Records regulations: The Federal rules restrict any use of the information to criminally investigate or prosecute any alcohol or drug abuse patient.[facility]In the event this information is protected by the Federal Confidentiality of Alcohol and Drug Abuse Patient Records regulations: The Federal rules restrict any use of the information to criminally investigate or prosecute any alcohol or drug abuse patient.[facility]In the event this information is protected by the Federal Confidentiality of Alcohol and Drug Abuse Patient Records regulations: The Federal rules restrict any use of the information to criminally investigate or prosecute any alcohol or drug abuse patient.[facility]In the event this information is protected by the Federal Confidentiality of Alcohol and Drug Abuse Patient Records regulations: The Federal rules restrict any use of the information to criminally investigate or prosecute any alcohol or drug abuse patient.[facility]In the event this information is protected by the Federal Confidentiality of Alcohol and Drug Abuse Patient Records regulations: The Federal rules restrict any use of the information to criminally investigate or prosecute any alcohol or drug abuse patient.[facility]In the event this information is protected by the Federal Confidentiality of Alcohol and Drug Abuse Patient Records regulations: The Federal rules restrict any use of the information to criminally investigate or prosecute any alcohol or drug abuse patient.[facility]In the event this information is protected by the Federal Confidentiality of Alcohol and Drug Abuse Patient Records regulations: The Federal rules restrict any use of the information to criminally investigate or prosecute any alcohol or drug abuse patient.[facility] ClinicIn the event this information is protected by the Federal Confidentiality of Alcohol and Drug Abuse Patient Records regulations: The Federal rules restrict any use of the information to criminally investigate or prosecute any alcohol or drug abuse patient.[facility] Scheduled Active and Recently Administ ered Medications (unrecognized section and content) Medication Order 04/29/2023 04/30/2023 05/01/2023 ascorbic acid (Vitamin C) tablet 500 mg 500 mg, Oral, Daily, First dose on Sat04/30/23 at 0900 1439 (Given - Provider: Annalisa Dudley RN) 0900 (Not Given - Provider: Mark Dean RN - Reason: Other) aspirin EC tablet 81 mg 81 mg, Oral, Daily, First dose on Sat04/30/23 at 1000, Do not crush, chew, or split. 1020 (Given - Provider: Annalisa Dudley RN) 0852 (Given - Provider: Mark Dean, GLORIA) citalopram (CeleXA) tablet 20 mg 20 mg, Oral, Daily, First dose (after last modification) on Sat05/01/23 at 0800 0852 (Given - Provider: Mark Dean, GLORIA) citalopram (CeleXA) tablet 40 mg (CANCELED) 40 mg, Oral, Daily, First dose on Sat04/30/23 at 0800 0748 (Given - Provider: Annalisa Dudley RN) clopidogrel (Plavix) tablet 75 mg (CANCELED) 75 mg, Oral, Daily, First dose on Sat04/30/23 at 0900 0748 (Given - Provider: Annalisa Dudley RN) ezetimibe (Zetia) tablet 10 mg 10 mg, Oral, Nightly, First dose on Sat04/29/23 at 2200 2200 (Not Given - Provider: Dasia Cunha RN - Reason: Patient/family refused - Comment: pt stats already recived) 2205 (Given - Provider: Angelina Morales RN) ferrous sulfate tablet 325 mg (CANCELED) 325 mg, Oral, Daily with breakfast, First dose on Sat04/30/23 at 0800 0748 (Given - Provider: Annalisa Dudley RN) 0852 (Given - Provider: Mark Dean RN) losartan (Cozaar) tablet 25 mg (CANCELED) 25 mg, Oral, Daily, First dose on Sat04/29/23 at 2315 2315 (Not Given - Provider: Dasia Cunha RN - Reason: Patient/family refused - Comment: pt states she already recived) 1020 (Given - Provider: Annalisa Dudley RN) 0403 (Given - Provider: Angelina Morales RN - Comment: given early per MD) losartan (Cozaar) tablet 25 mg (COMPLETED) 25 mg, Oral, Once, On Sat05/01/23 at 0630, For 1 dose 0640 (Given - Provider: Angelina Morales RN) losartan (Cozaar) tablet 50 mg 50 mg, Oral, Daily, First dose (after last modification) on Sat05/02/23 at 0900 magnesium sulfate IVPB premix 2,000 mg (COMPLETED) 2,000 mg, IntraVENous, at 25 mL/hr, Administer over 2 Hours, Once, On Sat04/30/23 at 0800, For 1 dose, Recommended infusion rate not to exceed 1,000 mg (milligrams) per hour. 0817 (New Bag - Provider: Annalisa Dudley RN)1017 (Stopped - Provider: Annalisa Dudley RN) magnesium sulfate IVPB premix 2,000 mg (COMPLETED) 2,000 mg, IntraVENous, at 25 mL/hr, Administer over 2 Hours, Once, On Sat04/30/23 at 0945, For 1 dose 1024 (New Bag - Provider: Annalisa Dudley RN)1224 (Stopped - Provider: Annalisa Dudley RN) magnesium sulfate IVPB premix 2,000 mg (COMPLETED) 2,000 mg, IntraVENous, at 25 mL/hr, Administer over 2 Hours, Once, On Sat05/01/23 at 0615, For 1 dose 0645 (New Bag - Provider: Angelina Morales RN)0845 (Stopped - Provider: Mark Dean RN) metoprolol succinate XL (Toprol-XL) 24 hr tablet 25 mg 25 mg, Oral, Daily, First dose on Sat04/30/23 at 0900, Do not crush or chew., , On hold since Sat04/30/2023 at 1340 until manually unheld 1200 (Not Given - Provider: Annalisa Dudley RN - Reason: Other - Comment: holding today after clarify with Dr. Denis, HR 51)1340 (Held by provider - Provider: Dudley Denis MD - Reason: Change in vital signs) 0900 (Dose Auto Held - Provider: Dudley Denis MD)1657 (Unheld by provider - Provider: Automatic Discharge Provider) potassium chloride (Klor-Con) packet 40 mEq (COMPLETED) 40 mEq, Oral, Once, On Sat04/30/23 at 0645, For 1 dose, Dissolve each packet in 4 ounces of water = 5 mEq per 1 oz fluid., Indications: Hypokalemia 0750 (Given - Provider: Annalisa Dudley RN) potassium chloride CR (Klor-Con M10) ER tablet 20 mEq (COMPLETED) 20 mEq, Oral, Once, On Sat05/01/23 at 0615, For 1 dose, Best given with food and plenty of water to minimize gastric irritation. Do not crush or chew. 0640 (Given - Provider: Angelina Morales RN) pregabalin (Lyrica) capsule 150 mg 150 mg, Oral, 2 times daily, First dose on Sat04/29/23 at 2200 2200 (Not Given - Provider: Dasia Cunha RN - Reason: Patient/family refused - Comment: pt states already recived) 0748 (Given - Provider: Annalisa Dudley RN)2042 (Given - Provider: Angelina Morales, GLORIA) 0852 (Given - Provider: Mark Dean, GLORIA) ticagrelor (Brilinta) tablet 180 mg (COMPLETED) 180 mg, Oral, Once, On Sat04/30/23 at 1000, For 1 dose 1020 (Given - Provider: Annalisa Dudley RN) ticagrelor (Brilinta) tablet 90 mg 90 mg, Oral, 2 times daily, First dose (after last modification) on Sat04/30/23 at 2100 2042 (Given - Provider: Angelina Morales RN) 0852 (Given - Provider: Mark Dean, GLORIA) Continuous Medication Order 04/29/2023 04/30/2023 05/01/2023 heparin 25,000 units in dextrose 5% 250mL infusion (premix) (CANCELED) 5-30 Units/kg/hr 87.1 kg (4.355-26.13 mL/hr, rounded to 4.4-26.1 mL/hr), IntraVENous, Continuous, Starting on Sat04/29/23 at 1930, LOW Dose Heparin Weight Based Dosing (CAD/STEMI/NSTEMI/AFIB/ECM O) >>>>Initial dose: 11 units/kg/hr<<<< Subsequent dosing: aPTT < 30 Heparin Full re-bolus Increase infusion by 2 units/kg/hr; notify prescriber aPTT 30-49.9 Heparin Half re-bolus Increase infusion by 1 unit/kg/hr aPTT 50-70.9 No bolus No change aPTT 71-95.9 Hold heparin for 60 min Decrease infusion by 1 units/kg/hr aPTT > 95.9 Hold heparin for 60 min Decrease infusion by 2 units/kg/hr; notify prescriber Check aPTT 6 hours after initiation and 6 hours after every dose change; every 12 hrs x 1 day after 2 consecutive therapeutic aPTT; daily after every 12 hrs x 1 day is completed. 2134 (New Bag - Provider: Berenice Suarez RN) 0410 (Rate/Dose Change - Provider: Dasia Cunha RN)0724 (Handoff - Provider: Annalisa Dudley RN)1127 (Rate/Dose Change - Provider: Annalisa Dudley RN)1145 (Stopped - Provider: Joann Lara, RN) nitroGLYCERIN 50 mg in dextrose 5% 250 mL infusion (CANCELED) 5-200 mcg/min (1.5-60 mL/hr), IntraVENous, Continuous, Starting on Sat04/30/23 at 0330, If Titrate Infusion? is No: Disregard instructions below. If Titrate infusion? is Yes: If rate LESS than 20 mcg/min: Titrate by 5 mcg/min no faster than every 5 minutes to goal. If rate GREATER than or equal to 20 mcg/min: Titrate by 10 mcg/min no faster than every 5 minutes to goal., Titrate Infusion? No, Infusion Dose: 5 mcg/min 0332 (New Bag - Provider: Dasia Cunha RN)1145 (Stopped - Provider: Joann Lara, RN) PRN Medication Order 04/29/2023 04/30/2023 05/01/2023 acetaminophen (Tylenol) suppository 650 mg(Linked Group 1) 650 mg, Rectal, Every 6 hours PRN, mild pain (1-3), fever, For temp greater than 100.4 F (38 C), Starting on Sat04/29/23 at 1924, Administer if oral route cannot be used. Maximum dose of acetaminophen is 4000 mg from all sources in 24 hours. 1028 (See Alternative - Provider: Annalisa Dudley RN)2325 (See Alternative - Provider: Angelina Morales RN) 0854 (See Alternative - Provider: Mark Dean, RN) acetaminophen (Tylenol) tablet 650 mg(Linked Group 1) 650 mg, Oral, Every 6 hours PRN, mild pain (1-3), fever, For temp greater than 100.4 F (38 C), Starting on Sat04/29/23 at 1924, Maximum dose of acetaminophen is 4000 mg from all sources in 24 hours. 1028 (Given - Provider: Annalisa Dudley RN)2325 (Given - Provider: Angelina Morales, GLORIA) 0854 (Given - Provider: Mark Dean, RN) albuterol 108 (90 Base) MCG/ACT inhaler 2 puff 2 puff, Inhalation, Every 6 hours PRN, wheezing, Starting on Sat04/29/23 at 2301 0233 (Given - Provider: Dasia Cunha RN) dextrose 5 % infusion 100 mL/hr, IntraVENous, PRN, Blood sugar less than 70mg/dL, Starting on Sat04/29/23 at 1927, Start infusion following administration of dextrose 50% or glucagon. dextrose 50 % solution 12.5 g 12.5 g, IntraVENous, PRN, low blood sugar, Blood glucose less than 70 mg/dL and patient NOT ALERT or NPO., Starting on Sat04/29/23 at 1927, If patient does not respond within 5 minutes, repeat dose x1. Start D5W at 100 mL/hour until ordering provider can be reached. Repeat blood glucose in 15 minutes. If blood glucose is less than 70 mg/dL, repeat treatment and recheck blood glucose in 15 minutes x2. If using Glucostabilizer, dose as instructed per system. fentaNYL (Sublimaze) injection (CANCELED) IntraVENous, As needed, Starting on Sat04/30/23 at 1233, Intraprocedure 1233 (Given - Provider: Blake Castillo RN) glucagon (human recombinant) injection 1 mg 1 mg, IntraMUSCular, PRN, low blood sugar, Blood glucose less than 70 mg/dL and patient NOT ALERT or NPO and does not have IV access., Starting on Sat04/29/23 at 1927, After administration, attempt intravenous access and start D5W at 100 mL/hr. Repeat blood glucose in 15 minutes x2 and notify provider. glucose oral gel 15 g 15 g, Oral, As needed, low blood sugar, Starting on Sat04/29/23 at 1927, If blood glucose less than 50 mg/dL and patient ALERT and NOT NPO, give 2 tubes glucose gel. If blood glucose less than 70 mg/dL and patient ALERT and NOT NPO, give 1 tube glucose gel. Repeat blood glucose in 15 minutes. If blood glucose is less than 70 mg/dL, repeat treatment and recheck blood glucose in 15 minutes x2 and notify provider. guaiFENesin (Mucinex) 12 hr tablet 600 mg 600 mg, Oral, 2 times daily PRN, cough, Starting on Sat04/30/23 at 2332, Administer with plenty of fluids to ensure proper action. Do not crush, chew, or split. 233 (Given - Provider: Angelina Morales RN) heparin injection 2,000 Units (CANCELED) 2,000 Units, IntraVENous, As needed, heparin dosing algorithm, Starting on Sat04/29/23 at 1926, Half dose re-bolus based on pharmacy algorithm 0410 (Given - Provider: Dasia Cunha RN)1127 (Given - Provider: Annalisa Dudley, GLORIA) heparin injection (CANCELED) IntraVENous, As needed, Starting on Sat04/30/23 at 1209, Intraprocedure 1209 (Given - Provider: EZEQUIEL TREJO) iopamidol (Isovue-300) 61 % injection (CANCELED) As needed, Starting on Sat04/30/23 at 1248, Intraprocedure 1248 (Given - Provider: Carina Nieto MD) lidocaine (Xylocaine) 1 % injection (CANCELED) As needed, Starting on Sat04/30/23 at 1152, Intraprocedure 1152 (Given - Provider: Donald Anderson MD) midazolam (Versed) injection (CANCELED) IntraVENous, As needed, Starting on Sat04/30/23 at 1233, Intraprocedure 1233 (Given - Provider: Blake Castillo, GLORIA) NITROGLYCERIN 1000 MCG / 10 ML SYRINGE (CHARGE ONLY) (CANCELED) As needed, Starting on Sat04/30/23 at 1225, Intraprocedure 1225 (Given - Provider: Donald Anderson MD) nitroprusside (Nipride) injection (COMPLETED) Continuous PRN, Starting on Sat04/30/23 at 1229, Intraprocedure 1229 (New Bag - Provider: Donald Anderson MD - Comment: 200mcg IC) ondansetron (Zofran) injection 4 mg (CANCELED)(Linked Group 2) 4 mg, IntraVENous, Every 6 hours PRN, nausea, vomiting, Starting on Sat04/29/23 at 1927, 1st Line. Give IV if patient is unable to take orally. If inadequate response within 60 minutes, proceed to next-line agent or contact provider if no further options ordered. 1120 (Given - Provider: Annalisa Dudley, GLORIA) perflutren protein A microsphere (Optison) 3 mL in sodium chloride (PF) 0.9 % 10 mL IV syringe 0-10 mL, IntraVENous, IMG once PRN, other, Suboptimal echo image, Starting on Sat05/01/23 at 0728, For 1 dose, CV Procedural Medications, Administer via slow IVP for suboptimal echocardiogram enhancement. May administer as divided doses to reach optimal image enhancement polyethylene glycol (PEG) 3350 (Miralax) packet 17 g 17 g, Oral, Daily PRN, constipation, Starting on Sat04/29/23 at 1924, 1st line for treatment of constipation - give scheduled if no bowel movement in past 24 hours. sodium chloride 0.9 % infusion 5-250 mL/hr, IntraVENous, PRN, if patient receiving piggyback infusions and maintenance fluids are not ordered OR KVO fluids to protect IV site / prevent frequent line interruptions / long duration, Starting on Sat04/29/23 at 1924, For piggyback infusion, administer at same rate as piggyback for a total of 25 mL. Enter 25 mL into dose field and piggyback rate into rate field of order. If piggyback is infusing at a rate less than 100 mL/hr, enter 25 mL into dose field and 100 mL/hr into rate field of order. For KVO fluids, enter rate of 20 mL/hr or less into rate field of order. Linked Groups Order Group 1: acetaminophen (Tylenol) tablet 650 mgJump to med 650 mg, Oral, Every 6 hours PRN, mild pain (1-3), fever, For temp greater than 100.4 F (38 C), Starting on Sat04/29/23 at 1924, Maximum dose of acetaminophen is 4000 mg from all sources in 24 hours. Or acetaminophen (Tylenol) suppository 650 mgJump to med 650 mg, Rectal, Every 6 hours PRN, mild pain (1-3), fever, For temp greater than 100.4 F (38 C), Starting on Sat04/29/23 at 1924, Administer if oral route cannot be used. Maximum dose of acetaminophen is 4000 mg from all sources in 24 hours. Group 2: ondansetron ODT (Zofran-ODT) disintegrating tablet 4 mg (CANCELED) 4 mg, Oral, Every 8 hours PRN, nausea, vomiting, Starting on Sat04/29/23 at 1927, 1st Line. If inadequate response within 60 minutes, proceed to next-line agent or contact provider if no further options ordered. Patient should allow tablet to dissolve on tongue. Do not remove from blister pack until just before administering. Or ondansetron (Zofran) injection 4 mg (CANCELED)Jump to med 4 mg, IntraVENous, Every 6 hours PRN, nausea, vomiting, Starting on Sat04/29/23 at 1927, 1st Line. Give IV if patient is unable to take orally. If inadequate response within 60 minutes, proceed to next-line agent or contact provider if no further options ordered. FOR RECORDS PERTAINING TO PATIENTS WHO ARE OR HAVE BEEN ENROLLED IN A CHEMICAL DEPENDENCY/SUBSTANCEABUSE PROGRAM, SOME INFORMATION MAY BE OMITTED. This clinical summary was aggregated from multiple sources. Caution should be exercised in using it in the provision of clinical care. This summary normalizes information from multiple sources, and as a consequence, information in this document may materially change the coding, format and clinical context of patient data. In addition, data may be omitted in some cases. CLINICAL DECISIONS SHOULD BE BASED ON THE PRIMARY CLINICAL RECORDS. [employer] provides no warranty or guarantee of the accuracy or completeness of information in this document.
[2025-02-03] MEDS: Lactated Ringers 1,000 ML 15 ML IV (06:09)
--- NOTE | 2025-02-03 06:20 | PCM.PRE.AN2 ---
ASA Classification* ASA Classification ASA Classification: 3 Assessment & Plan Anesthesia* Anesthesia Assessment Anesthesia Assessment: Discussed sedation and/or anesthesia options, risks, benefits, and alternatives with patient/parents/legal guardian/POA. Questions invited. The patient/parents/legal guardian/POA seems to understand and agrees to proceed with anesthesia plan. Reviewed the physical assessment, medical history, allergy history and patient home medications list prior to surgery/procedure/anesthetic and documented any changes. Performed airway and anesthesia risk assessments. Anesthesia Type Anesthesia Type: MAC History Source History Obtained from:: Patient and Chart Anesthesia Focused Assessment* Temperature: 97.5 F Pulse Rate: 49 Blood Pressure: 152/65 Respiratory Rate: 18 Pulse Ox: 93 Oxygen Delivery Method: Room Air Airway Assessment Mouth opens: 2 cm Mallampati Score: II Teeth Condition: Intact Neck Range of motion (ROM): Full ROM Labs Anesthesia Preop lab: CBC WBC 11.0 K/mm3 (4.4-11.0) 11/03/24 13:49 11/03/24 RBC 4.22 M/mm3 (4.2-5.4) 11/03/24 13:49 11/03/24 Hgb 12.1 g/dL (12.0-15.0) 11/03/24 13:49 11/03/24 Hct 37.1 % (37-47) 11/03/24 13:49 11/03/24 Plt Count 340 K/mm3 (150-450) 11/03/24 13:49 11/03/24 CHEMISTRY Potassium 4.0 mmol/L (3.3-5.1) 12/14/24 15:03 12/14/24 Sodium 138 mmol/L (133-145) 12/14/24 15:03 12/14/24 Magnesium 1.7 mg/dL (1.6-2.6) 04/27/23 11:35 04/27/23 BUN 22 mg/dL (4-19) H 12/14/24 15:03 12/14/24 Creatinine 1.25 mg/dL (0.70-1.20) H 12/14/24 15:03 12/14/24 Glucose 263 mg/dL (70-99) H 12/14/24 15:03 12/14/24 POC Glucose 258 mg/dL (74-106) H 04/21/24 16:44 04/21/24 TSH 2.45 uIU/mL (0.358-3.74) 10/23/22 09:53 10/23/22 COAG PT 14.0 SECONDS (11.7-14.9) 06/25/23 20:00 06/25/23 Pre-Assessment Diagnosis/Proposed Procedure Planned Operative Procedure(s): EGD Anesthesia History 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 When Was Last Pacemaker Check QUESTION #4 FULL TEXT: You/Your Family Experience fever (hyperthermia) with Anesthesia Last Oral Intake Last Oral intake: Last Oral Intake NPO since 20:00 02/03/25 05:58 Meds taken in AM with sips of No 02/03/25 05:58 water? 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 Female Yes 02/01/25 14:18 HX of Motion Sickness No 02/01/25 14:18 HX of N/V After Surgery No 02/01/25 14:18 Non-Smoker Yes 02/01/25 14:18 Duration of Surgery greater No 02/01/25 14:18 than 60 minutes Number of Risk Factors 2 02/01/25 14:18 PONV Score Moderate Risk 02/01/25 14:18 Height & Weight Height & Weight: Anesthesia: Height & Weight Height 5 ft 5 in 02/03/25 05:58 Weight: 93 kg 02/03/25 05:58 Body Mass Index (BMI) 34.1 02/03/25 05:58 Respiratory Assessment Respiratory Assessment - 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 Has anyone observed you stop breathing during sleep? STOP Results Positive 02/01/25 14:18 QUESTION #5 FULL TEXT : Do you snore loudly (louder than talking or can be heard through closed doors)? 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 Specify any problems Hx of Preganancy in last 3 No 02/01/25 14:18 Months Nurse Filling Out Transfusion [id number] 02/01/25 14:18 & Questions: Date: 02/01/25 02/01/25 14:18 Time: 14:23 02/01/25 14:18 Patient unable to answer at this time (ie. 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 Hx Now Gestational Age (in weeks): EDC: Hx Hx Para Hx Section SAB Active Medications Active Medications: Current Medications Generic Name Dose Route Start Last Admin Trade Name Freq PRN Reason Stop Dose Admin Lactated Ringer's 1,000 mls @ 15 mls/hr 02/03/25 05:45 02/03/25 06:09 IV 15 mls/hr .Q48H ANDI Administration PFSH Medical History (Updated 02/01/25 @ 14:28 by Dhaval Griggs) Marijuana use Low iron History of Holter monitoring Bradycardia Atherosclerosis of coronary artery COVID Concussion Hiatal hernia Wears glasses Post-menopausal Alcohol use Ambulates with cane Diabetes Arthritis Rheumatoid arthritis High cholesterol Anemia Acute kidney failure Restless legs Back pain Injury of back Migraine headache Injury of head and neck Blackout Difficulty swallowing Difficulty chewing History of diverticulitis Gastric reflux Former smoker CPAP (continuous positive airway pressure) dependence Sleep apnea Shortness of breath on exertion History of echocardiogram History of stress test Cardiology follow-up encounter History of heart attack History of irregular heartbeat Chest pain Imbalance Headache Epigastric pain Lymphedema Restless legs syndrome (RLS) Anxiety and depression Iron deficiency anemia Proliferative diabetic retinopathy Peripheral neuropathy Obesity Hyperhomocystinemia Narcolepsy GERD (gastroesophageal reflux disease) Atherosclerotic heart disease of council coronary artery without angina pectoris Atherosclerosis of coronary artery 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 Essential hypertension Hyperlipidemia Obstructive sleep apnea Type 2 diabetes mellitus Home Medications ?Medication ?Instructions ?Recorded ?Last Taken ?Type ascorbate calcium (vitamin C) 500 500 mg PO DAILY 10/26/21 02/02/25 History mg tablet red yeast rice 600 mg capsule 600 mg PO DAILY 10/26/21 02/02/25 History pregabalin 150 mg capsule 150 mg PO BID 02/27/22 02/02/25 History cholecalciferol (vitamin D3) 25 25 mcg PO DAILY 06/04/22 02/02/25 History mcg (1,000 unit) capsule aspirin 81 mg tablet,delayed 81 mg PO DAILY 05/18/23 02/02/25 History release (Adult Aspirin Regimen) citalopram 40 mg tablet 40 mg PO DAILY 05/18/23 02/02/25 History Handicap Placard #1 ea 06/05/23 Unknown Rx albuterol sulfate 90 mcg/actuation 1 puff inhalation Q6H PRN 07/24/23 02/01/25 Rx aerosol inhaler shortness of breath or wheezing #6.7 grams magnesium 250 mg tablet 250 mg PO BID 09/03/23 02/02/25 History fenofibrate nanocrystallized 145 145 mg PO DAILY #90 tabs 12/10/23 02/02/25 Rx mg tablet evolocumab 140 mg/mL subcutaneous 140 mg subcut Q2W 08/19/24 02/01/25 History pen injector (Suzanne Lawrence) sitagliptin phosphate 50 mg tablet 50 mg PO QDAY 08/19/24 02/02/25 History (Januvia) isosorbide mononitrate 30 mg 30 mg PO DAILY 11/03/24 02/02/25 History tablet,extended release 24 hr isosorbide mononitrate 60 mg 60 mg PO DAILY 11/03/24 02/02/25 History tablet,extended release 24 hr metformin 1,000 mg tablet 1,000 mg PO BID 12/16/24 02/02/25 History amlodipine 10 mg tablet 10 mg PO DAILY #90 tabs 12/24/24 02/02/25 Rx nitroglycerin 0.4 mg sublingual 0.4 mg sublingual Q5-15M PRN chest 12/24/24 01/30/25 Rx tablet pain #25 tabs pantoprazole 40 mg tablet,delayed 40 mg PO BID #180 tabs 12/24/24 02/02/25 Rx release clopidogrel 75 mg tablet 75 mg PO QDAY #90 tabs 01/13/25 01/30/25 Rx furosemide 40 mg tablet (Lasix) 40 mg PO DAILY #90 tabs 01/13/25 02/02/25 Rx ranolazine 1,000 mg 1,000 mg PO BID #180 tabs 01/13/25 02/02/25 Rx tablet,extended release,12 hr buspirone 5 mg tablet 5 mg PO TID PRN PRN anxiety 02/01/25 02/02/25 History Allergy/AdvReac Type Severity Reaction Status Date / Time aspirin Allergy Rash Verified 02/03/25 05:51 banana Allergy Hives Verified 02/03/25 05:51 canagliflozin (From Invokana) Allergy Anaphylaxis Verified 02/03/25 05:51 kiwi Allergy Hives Verified 02/03/25 05:51 niacin Allergy Rash Verified 02/03/25 05:51 Penicillins (PCN) Allergy Hives Verified 02/03/25 05:51 Sulfa (Sulfonamide Allergy Hives Verified 02/03/25 05:51 Antibiotics) ticagrelor AdvReac Severe Severe Verified 02/03/25 05:51 nausea and vomiting doxycycline AdvReac Nausea/Vom/ Verified 02/03/25 05:51 Diarrhea gemfibrozil (From Lopid) AdvReac Other Verified 02/03/25 05:51 ibuprofen AdvReac Upset Verified 02/03/25 05:51 Stomach levofloxacin (From Levaquin) AdvReac Upset Verified 02/03/25 05:51 Stomach lisinopril AdvReac cough Verified 02/03/25 05:51 propoxyphene (From AdvReac Upset Verified 02/03/25 05:51 Darvocet-N) Stomach spironolactone AdvReac hyperkalemi Verified 02/03/25 05:51 a [id number] Reductase AdvReac unknown Verified 02/03/25 05:51 Inhibitor (Hyxoxic-Lxz-Pzr Reductase Inhibitor) tramadol AdvReac Other Verified 02/03/25 05:51 Family History Mother Heart disease Father Heart disease Diabetes Surgical History (Updated 02/01/25 @ 14:28 by Dhaval Griggs) History of colonoscopy with polypectomy History of cataract surgery History of cholecystectomy History of left heart catheterization History of hysterectomy History of tonsillectomy H/O coronary artery bypass surgery (10/2001) History of coronary artery stent placement (04/30/23) Social History household members: spouse Smoking Status: Former smoker how long ago did patient quit smokin alcohol intake: current alcohol intake frequency: holidays/special occasions only Alcohol type: beer details: 4-6oz of red wine daily substance use type: marijuana what type of physical activity do you participate in: walking frequency: 5-6 times per week Review of Systems (Anesthesia) ROS Narrative System reviewed and no additional complaints, except as documented. Cardiovascular Cardiovascular: Reports chest pain Physical Exam Neck full ROM Resp normal respiratory effort and normal air movement Cardio regular rate and regular rhythm
--- NOTE | 2025-02-03 06:30 | EGD_PTH ---
PATIENT: ELSA PUGH LOC: EN U#:[id number] AGE/SX: 69/F ROOM: RE02/03/[address]: Dr. Hugo Alcaraz DO : 1955 BED: DIS: 02/03/2025 SPEC #: [id number] RECD: 02/03/25 09:10 STATUS: EZIO REQ #: [id number] CYRUS: 02/03/25 06:[address]: Hugo Alcaraz DEPT: SURGICAL PATHOLOGY RECD BY: Abhijit Jules ENTERED: 02/03/25 10:21 SP TYPE: EGD BIOPSY PROSPER DR: Dr. Redd Carney MD Tissues: A - Gastric mucous membrane Procedures: Immunohistochemical Stains Surgery Specimen Level IV HEADER OPERATION: EGD with biopsy PRE-OP DIAGNOSIS: Gastric ulcer TISSUE SUBMITTED: A- Gastric body biopsy MICROSCOPIC DIAGNOSIS A. Stomach, gastric body, biopsy: * Fundic mucosa with slight superficial chronic inflammation * An immunohistochemical stain for Helicobacter pylori is negative MICROSCOPIC DESCRIPTION A microscopic examination has been performed. All matched controls reacted appropriately. These tests were developed and their performance characteristics determined by [facility]. They may not have been cleared or approved by the U.S. Food and Drug Administration. The FDA has determined that such clearance or approval is not necessary. The above immunohistochemical/dual WILLY markers are interpretated by the Pathologist. GROSS DESCRIPTION A. Received in fixative is one container labeled with the patient's name and designated Gastric body biopsy. The specimen consists of two irregular fragments of light rosario tissue that measure 0.3 and 0.5 cm. The specimen is totally submitted in one cassette. IN 02/03/2025 CPT:42596,50828
--- NOTE | 2025-02-03 06:32 | PCM.HP.STD ---
HPI - General General Date of Admission: 02/03/25 Date of Service: 02/03/25 Chief Complaint: gastric ulcer HPI Narrative ELSA PUGH, is a 69 F who presents with the Chief Complaint: Chest pain, vomiting GI Consult 68-year-old with CAD status post PTCA with PCI on aspirin and Plavix presents with nausea and vomiting possibly due to UTI She also complained of dark stools, which is possibly secondary to gastritis or peptic disease secondary to to any platelet medicines that she takes on a daily basis due to her cardiac history She will undergo an upper endoscopy to evaluate upper GI tract. She was explained alternatives, risk, benefits include not withstanding bleeding, infection, sepsis, perforation, need for emergent surgery . She will have an ASA of 3. EGD 06/27/2023 - focal acute gastritis, negative for H. pylori One non-bleeding linear gastric ulcer with no stigmata of bleeding was found in the gastric antrum. The lesion was 6 mm in largest dimension. - she remains on pantoprazole 40mg BID - she is using marijuana for back pain, started this 1 week ago - denies any BRBPR - reports she has been experiencing pink and foamy urine with headache x1 month - she is taking Tylenol 2-3x a week - she reports she is either not urinating even when she takes her diuretic (furosemide) or urinating very frequently - she thought she saw Dr. Alcaraz in the past for CA - usually first thing in the morning - denies any fevers - denies any hematuria - denies any weight loss - Dr. 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 - she ambulates with a cane - she still drives - c/o blurred vision at times - Im just not myself for the past several days - drinking 4-6 ounces f red wine daily, maybe on the weekend she reports having a little more - denies any alcohol today - reports all GI symptoms she reported on ROS are chronic [facility] Medical History Marijuana use Low iron History of Holter monitoring Bradycardia Atherosclerosis of coronary artery COVID Concussion Hiatal hernia Wears glasses Post-menopausal Alcohol use Ambulates with cane Diabetes Arthritis Rheumatoid arthritis High cholesterol Anemia Acute kidney failure Restless legs Back pain Injury of back Migraine headache Injury of head and neck Blackout Difficulty swallowing Difficulty chewing History of diverticulitis Gastric reflux Former smoker CPAP (continuous positive airway pressure) dependence Sleep apnea Shortness of breath on exertion History of echocardiogram History of stress test Cardiology follow-up encounter History of heart attack History of irregular heartbeat Chest pain Imbalance Headache Epigastric pain Lymphedema Restless legs syndrome (RLS) Anxiety and depression Iron deficiency anemia Proliferative diabetic retinopathy Peripheral neuropathy Obesity Hyperhomocystinemia Narcolepsy GERD (gastroesophageal reflux disease) Atherosclerotic heart disease of [place] coronary artery without angina pectoris Atherosclerosis of coronary artery 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 Essential hypertension Hyperlipidemia Obstructive sleep apnea Type 2 diabetes mellitus Home Medications ?Medication ?Instructions ?Recorded ?Last Taken ?Type ascorbate calcium (vitamin C) 500 500 mg PO DAILY 10/26/21 02/02/25 History mg tablet red yeast rice 600 mg capsule 600 mg PO DAILY 10/26/21 02/02/25 History pregabalin 150 mg capsule 150 mg PO BID 02/27/22 02/02/25 History cholecalciferol (vitamin D3) 25 25 mcg PO DAILY 06/04/22 02/02/25 History mcg (1,000 unit) capsule aspirin 81 mg tablet,delayed 81 mg PO DAILY 05/18/23 02/02/25 History release (Adult Aspirin Regimen) citalopram 40 mg tablet 40 mg PO DAILY 05/18/23 02/02/25 History Handicap Placard #1 ea 06/05/23 Unknown Rx albuterol sulfate 90 mcg/actuation 1 puff inhalation Q6H PRN 07/24/23 02/01/25 Rx aerosol inhaler shortness of breath or wheezing #6.7 grams magnesium 250 mg tablet 250 mg PO BID 09/03/23 02/02/25 History fenofibrate nanocrystallized 145 145 mg PO DAILY #90 tabs 12/10/23 02/02/25 Rx mg tablet evolocumab 140 mg/mL subcutaneous 140 mg subcut Q2W 08/19/24 02/01/25 History pen injector (Suzanne Lawrence) sitagliptin phosphate 50 mg tablet 50 mg PO QDAY 08/19/24 02/02/25 History (Januvia) isosorbide mononitrate 30 mg 30 mg PO DAILY 11/03/24 02/02/25 History tablet,extended release 24 hr isosorbide mononitrate 60 mg 60 mg PO DAILY 11/03/24 02/02/25 History tablet,extended release 24 hr metformin 1,000 mg tablet 1,000 mg PO BID 12/16/24 02/02/25 History amlodipine 10 mg tablet 10 mg PO DAILY #90 tabs 12/24/24 02/02/25 Rx nitroglycerin 0.4 mg sublingual 0.4 mg sublingual Q5-15M PRN chest 12/24/24 01/30/25 Rx tablet pain #25 tabs pantoprazole 40 mg tablet,delayed 40 mg PO BID #180 tabs 12/24/24 02/02/25 Rx release clopidogrel 75 mg tablet 75 mg PO QDAY #90 tabs 01/13/25 01/30/25 Rx furosemide 40 mg tablet (Lasix) 40 mg PO DAILY #90 tabs 01/13/25 02/02/25 Rx ranolazine 1,000 mg 1,000 mg PO BID #180 tabs 01/13/25 02/02/25 Rx tablet,extended release,12 hr buspirone 5 mg tablet 5 mg PO TID PRN PRN anxiety 02/01/25 02/02/25 History Allergy/AdvReac Type Severity Reaction Status Date / Time aspirin Allergy Rash Verified 02/03/25 05:51 banana Allergy Hives Verified 02/03/25 05:51 canagliflozin (From Invokana) Allergy Anaphylaxis Verified 02/03/25 05:51 kiwi Allergy Hives Verified 02/03/25 05:51 niacin Allergy Rash Verified 02/03/25 05:51 Penicillins (PCN) Allergy Hives Verified 02/03/25 05:51 Sulfa (Sulfonamide Allergy Hives Verified 02/03/25 05:51 Antibiotics) ticagrelor AdvReac Severe Severe Verified 02/03/25 05:51 nausea and vomiting doxycycline AdvReac Nausea/Vom/ Verified 02/03/25 05:51 Diarrhea gemfibrozil (From Lopid) AdvReac Other Verified 02/03/25 05:51 ibuprofen AdvReac Upset Verified 02/03/25 05:51 Stomach levofloxacin (From Levaquin) AdvReac Upset Verified 02/03/25 05:51 Stomach lisinopril AdvReac cough Verified 02/03/25 05:51 propoxyphene (From AdvReac Upset Verified 02/03/25 05:51 Darvocet-N) Stomach spironolactone AdvReac hyperkalemi Verified 02/03/25 05:51 a Babdbmp-KWP-BlO Reductase AdvReac unknown Verified 02/03/25 05:51 Inhibitor (Hnqtjjk-Gce-Xjv Reductase Inhibitor) tramadol AdvReac Other Verified 02/03/25 05:51 Family History Mother Heart disease Father Heart disease Diabetes Surgical History History of colonoscopy with polypectomy History of cataract surgery History of cholecystectomy History of left heart catheterization History of hysterectomy History of tonsillectomy H/O coronary artery bypass surgery (10/2001) History of coronary artery stent placement (04/30/23) Social History household members: spouse Smoking Status: Former smoker how long ago did patient quit smokin alcohol intake: current alcohol intake frequency: holidays/special occasions only Alcohol type: beer details: 4-6oz of red wine daily substance use type: marijuana what type of physical activity do you participate in: walking frequency: 5-6 times per week ROS Constitutional Constitutional: Denies fatigue, fever(s), poor appetite, weight gain or weight loss Gastrointestinal Gastrointestinal: Denies belching, bloating, change in bowel habits, change in stool character, chewing difficulty, coffee ground emesis, constipation, cramping, diarrhea, dyspepsia, dysphagia, early satiety, excessive flatus, fecal incontinence, heartburn, hematemesis, hematochezia, hemorrhoids, loose stools, melena, nausea, odynophagia, rectal bleeding, tenesmus, vomiting or weight changes Vital Signs Vital Signs Vital Signs: 02/03/25 05:57 02/03/25 05:58 02/03/25 06:21 Temperature 97.5 F L 97.5 F L Temperature Source Temporal Pulse Rate 49 L 49 L Respiratory Rate 18 18 Respiratory Pattern Normal Blood Pressure 152/65 H 152/65 H Blood Pressure Mean 94 Blood Pressure Source Monitor Blood Pressure Position Semi-Fowlers Blood Pressure Location Left Arm Pulse Ox 93 93 Oxygen Delivery Method Room Air Room Air Weight Weight: 205 lb 0.478 oz Body Mass Index (BMI) 34.1 Physical Exam Const alert, oriented x3, no apparent distress and healthy appearing General Appearance: cooperative GI normal to inspection, nondistended, normoactive bowel sounds, soft to palpation, non-tender and non-distended Percussion: normal to percussion Rectal Exam: deferred Assessment & Plan Assessment/Plan (1) Gastric ulcer: PLAN: Assessment and Plan Assessment and Plan (1) Flank pain: Status: Acute (2) Hematuria: Status: Acute Plan: The patient will undergo urinalysis and blood work to evaluate kidney function, as symptoms of pink and foamy urine have been reported. (3) Gastric ulcer: Status: Acute Orders: Orders Urinalysis, Complete Today R10.9 - Unspecified abdominal pain, R31.9 - Hematuria, unspecified Culture, Urine Today R10.9 - Unspecified abdominal pain, R31.9 - Hematuria, unspecified Basic Metabolic Profile (BMP) Today R10.9 - Unspecified abdominal pain, R31.9 - Hematuria, unspecified
--- NOTE | 2025-02-03 06:52 | OP.EGD_ITS ---
Patient Name: Lu Damon Procedure Date: 02/03/2025 6:33 AM Date of : 1955 Age: 69 Procedure: Upper GI endoscopy Indications: Peptic ulcer Providers: DO Cathie Alvarez MD: Redd Carney Medicines: Monitored Anesthesia Care Patient Profile: This is a 69 year old female. Refer to note in patient chart for documentation of history and physical. Patient has symptoms of chronic epigastric abdominal pain, chronic dyspepsia and chronic nausea. Complications: No immediate complications. Procedure: Pre-Anesthesia Assessment: - Prior to the procedure, a History and Physical was performed, and patient medications and allergies were reviewed. The patient is competent. The risks and benefits of the procedure and the sedation options and risks were discussed with the patient. All questions were answered and informed consent was obtained. Patient identification and proposed procedure were verified by the physician in the pre-procedure area. Mental Status Examination: alert and oriented. Airway Examination: normal oropharyngeal airway and neck mobility. Respiratory Examination: clear to auscultation. CV Examination: normal. Prophylactic Antibiotics: The patient does not require prophylactic antibiotics. Prior Anticoagulants: The patient has taken no anticoagulant or antiplatelet agents except for NSAID medication. ASA Grade Assessment: II - A patient with mild systemic disease. After reviewing the risks and benefits, the patient was deemed in satisfactory condition to undergo the procedure. The anesthesia plan was to use monitored anesthesia care (MAC). Immediately prior to administration of medications, the patient was re-assessed for adequacy to receive sedatives. The heart rate, respiratory rate, oxygen saturations, blood pressure, adequacy of pulmonary ventilation, and response to care were monitored throughout the procedure. The physical status of the patient was re-assessed after the procedure. After obtaining informed consent, the endoscope was passed under direct vision. Throughout the procedure, the patient's blood pressure, pulse, and oxygen saturations were monitored continuously. The Endoscope was introduced through the mouth, and advanced to the second part of duodenum. The upper GI endoscopy was accomplished with ease. The patient tolerated the procedure well. Scope In: 6:44:49 AM Scope Out: 6:47:19 AM Total Procedure Duration Time 0 hours 2 minutes 30 seconds Findings: No gross lesions were noted in the entire esophagus. Localized mild inflammation characterized by erythema and granularity was found in the gastric body. Biopsies were taken with a cold forceps for histology. Verification of patient identification for the specimen was done. Biopsies were taken with a cold forceps for Helicobacter pylori testing. Verification of patient identification for the specimen was done. Estimated blood loss was minimal. No gross lesions were noted in the entire examined duodenum. Impression: - No gross lesions in the entire esophagus. - Chronic gastritis. Biopsied. - No gross lesions in the entire examined duodenum. Recommendation: - Discharge patient to home. - Resume previous diet. - Continue present medications. - Await pathology results. Procedure Code(s): --- Professional --- 38094, Esophagogastroduodenoscopy, flexible, transoral; with biopsy, single or multiple CPT copyright 2021 [employer]. All rights reserved. The codes documented in this report are preliminary and upon beating machine operator review may be revised to meet current compliance requirements. Hugo Alcaraz DO 02/03/2025 6:51:53 AM This report has been signed electronically. Number of Addenda: 0 Note Initiated On: 02/03/2025 6:33 AM
--- NOTE | 2025-02-03 06:52 | OP.PROVAT_ITS ---
02/03/2025 Redd Carney Re : Upper GI endoscopy procedure for Lu Damon Dear Rommel This procedure was performed on Monday, February 03, 2025. My impressions and recommendations are as follows: Impressions : - No gross lesions in the entire esophagus. - Chronic gastritis. Biopsied. - No gross lesions in the entire examined duodenum. Recommendations : - Discharge patient to home. - Resume previous diet. - Continue present medications. - Await pathology results. My findings are described in the full procedure note, which is enclosed. If I can be of further assistance, please feel free to contact me at . Sincerely, Hugo Alcaraz, 02/03/2025 6:51:53 AM This report has been signed electronically.
--- NOTE | 2025-02-03 07:00 | PCM.POST.ANE ---
Anesthesia: Postop Eval I Current Vital Signs Temperature: 98.3 F Pulse Rate: 46 Blood Pressure: 107/65 Respiratory Rate: 16 Pulse Ox: 98 Oxygen Delivery Method: Room Air Assessment Airway patent: Yes Spontaneous unlabored respirations: Yes Mental status: Awake and Calm nausea: No Vomiting: No Anesthesia Complication: No Fluid Hydration Crystalloid volume administer (ml): 300 Total IV fluid infused: 300 Progress Note Anesthesia document: Postop Eval 1 completed: Yes
== END 2025-02-03 07:28 | disposition home or self-care (01) ==
LOC: EN 05:13 → AC 05:14
PROVIDERS: PCP Family Medicine; Referring Provider Family Medicine; Visit Provider Internal Medicine Gastroenterology
PROC: 0DJ08ZZ Inspection of Upper Intestinal Tract, Via Natural or Artificial Opening Endoscopic (ICD-10-PCS; CPT 43235; principal; 2025-02-03 06:25)
DX: K25.3 Acute gastric ulcer without hemorrhage or perforation (principal); E11.9 Type 2 diabetes mellitus without complications; R31.9 Hematuria, unspecified; I25.10 Atherosclerotic heart disease of native coronary artery without angina pectoris; Z98.61 Coronary angioplasty status; I10 Essential (primary) hypertension; Z87.891 Personal history of nicotine dependence; Z90.710 Acquired absence of both cervix and uterus; K29.50 Unspecified chronic gastritis without bleeding; G47.33 Obstructive sleep apnea (adult) (pediatric); Z79.82 Long term (current) use of aspirin; Z79.02 Long term (current) use of antithrombotics/antiplatelets; E78.00 Pure hypercholesterolemia, unspecified; Z99.89 Dependence on other enabling machines and devices; Z79.899 Other long term (current) drug therapy; F41.8 Other specified anxiety disorders; Z79.84 Long term (current) use of oral hypoglycemic drugs; Z90.49 Acquired absence of other specified parts of digestive tract; R10.9 Unspecified abdominal pain
CPT/HCPCS: 43239; 82962; 88305; 88342; J2405

== ENCOUNTER → 2025-02-10 | Outpatient (CLI) | payer MEDICARE, MEDICAID, SELFPAY ==
[2023-09-30 13:22] VITALS: BMI 33.1
[2025-02-10 16:20] LABS: Anion Gap 9 (5-15); BUN 24 mg/dL (4-19); BUN/Creat Ratio 19.3 RATIO (10-20); Calcium,Total 9.5 mg/dL (7.6-11.0); Carbon Dioxide 28.7 mmol/L (21.0-32.0); Chloride 102 mmol/L (98-108); Glucose 125 mg/dL (70-99); Potassium 4.6 mmol/L (3.3-5.1); Pro- Brain NATRIURETIC PEPTIDE 54 pg/mL (<=900)
== END | disposition home or self-care (01) ==
LOC: LAB 15:40
PROVIDERS: PCP Family Medicine; Referring Provider Nurse Practitioner Family; Visit Provider Nurse Practitioner Family
DX: R07.89 Other chest pain (principal); E11.9 Type 2 diabetes mellitus without complications; R00.1 Bradycardia, unspecified; I25.810 Atherosclerosis of coronary artery bypass graft(s) without angina pectoris; R06.00 Dyspnea, unspecified
CPT/HCPCS: 36415; 80048; 83880

== ENCOUNTER → 2025-02-19 | Outpatient (CLI) | payer MEDICARE, MEDICAID, SELFPAY ==
[2023-09-30 13:22] VITALS: BMI 33.1
[2025-02-19 16:43] LABS: Hematocrit 37.0 % (37-47); Hemoglobin 12.1 g/dL (12.0-15.0); Immature Granulocytes Count 0.040 X10^3/uL (0.0-0.0); Mean Corp Hgb Conc 32.7 g/dL (32-36); Mean Corpuscular Volume 86.9 fL (81-99); Mean Platelet Vol. 11.2 fl (6.2-12.0); NRBC Flagged by Analyzer 0 % (0-5); Platelet Count 283 K/mm3 (150-450); RBC Distribution Width CV 14.1 % (11.6-14.6); RBC Distribution Width SD 44.7 fl (35.1-43.9); Red Blood Count 4.26 M/mm3 (4.2-5.4); White Blood Count 7.9 K/mm3 (4.4-11.0)
[2025-02-19 17:38] LABS: Anion Gap 13 (5-15); BUN 20 mg/dL (4-19); BUN/Creat Ratio 13.7 RATIO (10-20); Calcium,Total 9.5 mg/dL (7.6-11.0); Carbon Dioxide 28.1 mmol/L (21.0-32.0); Chloride 99 mmol/L (98-108); Glucose 176 mg/dL (70-99); Potassium 4.0 mmol/L (3.3-5.1)
== END | disposition home or self-care (01) ==
PROVIDERS: PCP Family Medicine
DX: Z01.810 Encounter for preprocedural cardiovascular examination (principal); I25.10 Atherosclerotic heart disease of native coronary artery without angina pectoris
CPT/HCPCS: 36415; 80048; 85025

== ENCOUNTER → 2025-03-02 | Outpatient (CLI) | payer MEDICARE, MEDICAID, SELFPAY ==
[2023-09-30 13:22] VITALS: BMI 33.1
[2025-03-02 14:09] LABS: Hematocrit 36.6 % (37-47); Hemoglobin 12.0 g/dL (12.0-15.0); Mean Corp Hgb Conc 32.8 g/dL (32-36); Mean Corpuscular Volume 87.8 fL (81-99); Mean Platelet Vol. 11.3 fl (6.2-12.0); Platelet Count 287 K/mm3 (150-450); RBC Distribution Width CV 14.4 % (11.6-14.6); RBC Distribution Width SD 46.0 fl (35.1-43.9); Red Blood Count 4.17 M/mm3 (4.2-5.4); White Blood Count 6.6 K/mm3 (4.4-11.0)
[2025-03-02 14:49] LABS: Anion Gap 11 (5-15); BUN 14 mg/dL (4-19); BUN/Creat Ratio 10.9 RATIO (10-20); Calcium,Total 9.4 mg/dL (7.6-11.0); Carbon Dioxide 26.7 mmol/L (21.0-32.0); Chloride 100 mmol/L (98-108); Glucose 174 mg/dL (70-99); Potassium 4.2 mmol/L (3.3-5.1)
== END | disposition home or self-care (01) ==
LOC: LAB 13:26
PROVIDERS: PCP Family Medicine
DX: Z95.5 Presence of coronary angioplasty implant and graft (principal)
CPT/HCPCS: 36415; 80048; 85027